=== PATIENT | female | born 2000 | race Caucasian/White ===

== ENCOUNTER 2021-01-25 17:45 | Emergency (ER) | payer SELFPAY ==
[2021-01-25 18:08] VITALS: PULSE 83; RESP 18; TEMP 36.5; O2SAT 98
--- NOTE | 2021-01-25 18:30 | DI.CT_ITS ---
Exam(s) CT ABDOMEN PELVIS W EXAM: CT ABDOMEN PELVIS W CLINICAL HISTORY: diffuse pain, max lower quadrants. TECHNIQUE: Imaging Protocol: Axial computed tomography images with coronal and sagittal reformatted images were created and reviewed CONTRAST MATERIAL: Intravenous: Omnipaque 350 Contrast volume:100 ml Oral: yes / no COMPARISON: No exams were available for comparison FINDINGS: ABDOMEN: Lung Bases: Normal where visualized. Liver: Normal density. No measurable mass. Gallbladder and biliary tract: No radiodense calculus or dilation. Pancreas: Normal density, no abnormal calcifications or inflammatory process. Spleen: Normal. Kidneys: Normal size, contour and axis. No radiodense stones or obstructive uropathy. No masses seen. Adrenal glands: No masses seen. Abdominal Aorta: Abdominal portion non-dilated. PELVIS: Bladder: No gross wall thickening. No calculi.No focal mass. Bowel: No obstruction or bowel wall thickening. Appendix surgically removed. Peritoneal cavity: No ascites, collection or mesenteric inflammatory response. Bones: Within normal limits for age. Reproductive organs: 4.9 centimeter left ovarian cyst, appears simple. Lymph nodes: Unremarkable. Impression: 4.9 centimeter left ovarian cyst, otherwise negative. RADIATION DOSE DELIVERED: 1,041mGy.cm Total DLP DATA REPOSITORY: All CT scans at this facility are submitted to the National Radiology Data Registry (NRDR) Dose Index Registry (DIR) with the [employer] ([employer]). RADIATION OPTIMIZATION: All CT scans at this facility use at least one of these dose optimization te chniques: automated exposure control; mA and/or kV adjustment per patient size (includes targeted exa ms where dose is matched to clinical indication); or iterative reconstruction.
--- NOTE | 2021-01-25 18:36 | W.ED.GENAD ---
Discharge Plan Disposition Patient Disposition: AGAINST MEDICAL ADVICE Condition: Stable Discharge Details Clinical Impression: Ovarian cyst, Abdominal pain, Constipation Primary Care Provider: Unknown,Unknown ED Provider: Fernanda Retana Home Meds and New Rx's Prescriptions: No Action sertraline 100 mg tablet 100 mg PO RF: 0 trazodone 100 mg tablet 100 mg PO RF: 0 hydroxyzine HCl 25 mg tablet 50 mg PO PRNRF: 0 gabapentin 100 mg capsule 100 mg PO RF: 0 cefdinir 300 mg capsule RF: 0 Discharge Instructions Instructions: Ovarian Cyst (ED), Constipation (ED), Abdominal Pain (ED) Additional Instructions: You are choosing to leave AGAINST MEDICAL ADVICE. We will send you with imaging and labs as your plan is to go immediately from here to [place] where your surgeon is located. Please bring these results with you. Next indication would be to have an ultrasound performed of your ovary. I am concerned that you are constipated would also like to increase your bowel regimen. You are welcome to return anytime for continued care. As your abdominal pain is persistent, please do follow-up with your surgeon as soon as possible. Discharge Data Discharge Date/Time-TO BE ENTERED AT DEPARTURE: 01/25/21 20:24 Medical Decision Making Patient is a pleasant 21-year-old female presenting for chief complaint of abdominal pain. Reports that this began yesterday. States is progressively been worsening. Reports is primarily on the lower aspect of the abdomen. Describes nausea and vomiting. She vomited x3 today. Reports that she had a normal bowel movement prior to arrival. States that when she urinates it feels like I am giving . However, states this is different than when she had UTIs historically. States she had a fever yesterday with a T-max of 101.2. Past surgical history includes 5 laparoscopies for removal of injury 8 years tissue, appendectomy. Dates that she has upcoming surgery in [place] for her endometriosis once again. Is actively trying to get . Report is currently menstruating. Describes pain with vaginal intercourse yesterday. Prior to starting her menses yesterday she was having cottage cheese discharge. Patient reports that this does not feel like her endometriosis has historically. On exam, patient appears uncomfortable. She is hematin stable. She appears well-hydrated. Abdomen is diffusely tender. No peritoneal findings. Well-healed surgical incisions. We will perform vaginal exam and obtain?past screening. She denies any new sexual partners or concern for STIs. States that she was tested for STIs approximately 3 weeks ago. Will obtain baseline labs. Patient is requesting antiemetic, will give Zofran. We will also obtain CT as the pain is described as severe and different from her baseline abdominal discomfort secondary to the endometriosis. She was having some vaginal discharge, considered STI, PID. Her pain is to general in the abdomen to be consistent with ovarian torsion and also had a very progression onset.. Also considered constipation she does have a history of this. Also considered diverticulitis, worsening endometriosis versus other. Labs reviewed. No leukocytosis. Patient is anemic with hemoglobin of 9.8 she does report that she has a history of anemia. I do not have any previous here for comparison. I do not see signficant bleeding on exam. She denies hematuria or blood in stool. CMP without abnormality. Negative hCG. Lipase within normal limits. UA is pending. Vaginal exam was performed. Patient has a normal amount of blood consistent with menses. Cervix looks unremarkable, I do not appreciate any abnormal discharge. Ppatient would like to leave AGAINST MEDICAL ADVICE. She prefers to go to [place] where she typically receives her surgical care. I advised that she should wait until her CT is reviewed by radiologist. I looked at her CT and concern for constipation. She declines stool softener, states she wants to go to [place] and does not want to have BM on the way. She is on daily softeners at baseline. Will give IV Tylenol for her discomfort. Patient is requesting something stronger for pain but I am hesitant to give her narcotics as this may worsen constipation and this is the underlying cause of her discomfort. Advised that if she is to leave AGAINST MEDICAL ADVICE, we will send her with a disc of her images as well as a copy of her labs. She is stable. She has capacity to make this decision. her mother is going to drive her to her surgical home in [place]. She is aware that she may return at any time for reevaluation. Vag path and STI testing pending. Just prior to patient leaving, CT reviewed by radiologist: FINDINGS: Lungs: Lung bases are clear. Liver: Normal. No mass. Gallbladder and bile ducts: Normal. No calcified stones. No ductal dilation. Pancreas: Normal. No ductal dilation. Spleen: Normal. No splenomegaly. Adrenal glands: Normal. No mass. Kidneys and ureters: Normal. No hydronephrosis. Ureters are not dilated. No stones observed. Stomach and bowel: Unremarkable stomach. Nondilated small bowel. Negative for inflammatory change around the colon. Mild proximal stool. Appendix: Appendix is surgically absent. Intraperitoneal space: Negative for free fluid or free air. Negative for inflammatory changes in the left adnexal region. Negative for abscess. Vasculature: Unremarkable. No abdominal aortic aneurysm. Lymph nodes: Unremarkable. No enlarged lymph nodes. Urinary bladder: Unremarkable as visualized. Reproductive: Uterus is unremarkable. Left ovarian cyst noted, 4.9 cm. Bones/joints: Unremarkable. No acute fracture. Soft tissues: Unremarkable. IMPRESSION: 1. Left ovarian cyst, 4.9 cm. 2. Negative for abscess or free fluid. I advised that she would need US. However, her pain is not focal and was slowly progressive. My clinicial suspicion for torsion of very low. However, she is aware of this need and will discuss at her next medical home. Patient left AMA with mom. She has labs and imaging with her. [facility] General Mode of arrival: ambulatory. Date/Time Provider Initiated Documentation: 01/25/21 18:16. Limitations to Documentation: no limitations. Information obtained by: patient and RN notes reviewed. History of Present Illness 21 year old F presents to the emergency department with the chief complaint of diffuse lower abdominal pain, described as severe, with intensity rated at 8. Quality is described as aching, and is localized to the abdomen. Patient reports no radiation. Patient started experiencing this day(s) and it has been constant. No relieving factors improve symptom(s), No exacerbating factors reported . Patient notes fever/chills (reports fever yesterday, none today); denies chest pain, cough, diaphoresis and shortness of breath. Patient did receive the following treatments prior to arrival, none Related Data Home Medications Medication Instructions Recorded Confirmed cefdinir mg 01/25/21 01/25/21 gabapentin 100 mg PO 01/25/21 hydroxyzine HCl 50 mg PO PRN 01/25/21 sertraline 100 mg PO 01/25/21 trazodone 100 mg PO 01/25/21 Allergies Allergy/AdvReac Type Severity Reaction Status Date / Time haloperidol [From Haldol] Allergy Unverified 01/25/21 18:16 ketorolac Allergy Unverified 01/25/21 18:16 Penicillins Allergy Unverified 01/25/21 18:16 prochlorperazine Allergy Unverified 01/25/21 18:16 [From Compazine] General Stated Complaint: [employer] POPEYE: 3 Review of Systems Constitutional Constitutional: Reports as per HPI, Denies chills, Denies fatigue, Reports fever(s) and Denies headache(s) ENT Ears, Nose, Mouth, and Throat: Denies headache(s) Cardiovascular Cardiovascular: Reports as per HPI, Denies chest pain and Denies dyspnea Respiratory Respiratory: Reports as per HPI, Denies cough and Denies dyspnea Gastrointestinal Gastrointestinal: Reports as per HPI, Denies hematochezia, Denies change in bowel habits (reports she is on multiple stool softeners, normal BM daily), Denies change in stool character, Denies nausea and Denies vomiting Genitourinary Genitourinary: Reports abnormal menses (states menses are irregular, trying to get . Started menses yesterd), Denies hematuria, Reports difficulty voiding, Denies genital lesions, Reports dyspareunia, Reports dysmenorrhea (endometriosis), Denies flank pain, Denies urinary urgency, Reports vaginal discharge (resolved with start of her menses yesterday) and Denies vaginal pruritus Musculoskeletal Musculoskeletal: Reports as per HPI and Denies back pain Integumentary/Breasts Skin/Breast: Reports as per HPI and Denies rash Neurologic Neurologic: Reports as per HPI and Denies headache(s) Endocrine Endocrine: Denies fatigue [facility] Social History Smoking/Tobacco Use Status: Never Smoking risk assessment performed?: Yes Alcohol Intake: current Alcohol Intake frequency: holidays/special occasions only Drug use: Occasionally Substance use type: marijuana Do you feel safe at home: Yes Do you feel safe in your relationship?: Yes Exam Const General: cooperative, healthy appearing, comfortable, no acute distress and well developed Nutritional Appearance: well nourished and overweight Orientation: alert and awake HENMT Head: normal to inspection Mouth: moist mucous membranes Resp Effort & Inspection: normal respiratory effort, able to speak in complete sentences and no respiratory distress Auscultation: clear to auscultation bilaterally, no rales, no rhonchi and no wheezes Cardio Rate: regular rate Rhythm: regular rhythm Heart Sounds: S1 normal and S2 normal GI Inspection: normal to inspection and scar (incisions are well healed from previous laparoscopic procedures) Palpation: soft, no hepatosplenomegaly, not firm, no guarding, no hernias, not rigid and tender in the LLQ, in the RLQ and other (diffuse discomfort that is worse in lower quadrants); with no rebound tenderness Percussion: normal to percussion Auscultation: normal bowel sounds External Female Exam: normal external appearance, no erythema, no tenderness externally and no external swelling Speculum Exam - Vagina: normal appearance of the vagina (small amount of blood in vaginal vault), no foreign bodies, no lacerations, no lesions, vaginal bleeding, no masses and no swelling Speculum Exam - Cervix: normal appearance of the cervix and nontender Bimanual Exam- Vagina & Uterus: normal bimanual exam, normal palpation and No tender OB/External & Speculum: no foreign bodies and vaginal bleeding Back/Spine/Pelvis Back: no CVA tenderness Skin General skin exam: no rashes or lesions noted Trauma: no lacerations or abrasions Neuro General: patient alert and patient awake Cognition: normal cognition Speech: speech normal Gait: normal gait Psych Appearance: grossly normal and well kempt Mental Status: mental status grossly normal Speech and Movement: speech and movement normal Course Vital Signs Vital signs: Vital Signs Temperature 36.5 C 01/25/21 18:08 Pulse 83 01/25/21 18:08 Respiratory Rate 18 01/25/21 18:08 Pulse Oximetry 98 01/25/21 18:08 Temperature 36.5 C 01/25/21 18:08 Pulse 83 01/25/21 18:08 Respiratory Rate 18 01/25/21 18:08 Respiratory Effort Non-Labored 01/25/21 18:14 Pulse Oximetry 98 01/25/21 18:08 Oxygen Delivery Method Room Air 01/25/21 18:08 Oxygen Flow Rate 0 01/25/21 18:08 Pain Level 8 01/25/21 18:20
[2021-01-25] MEDS: Normal Saline 1,000 ML 1000 ML IV (19:06)
[2021-01-25] MEDS: Ondansetron 4 MG/2 ML VIAL IVP (19:06)
[2021-01-25 19:13] LABS: HCT 32.2 % (36.0-46.0); HGB 9.8 g/dL (11.2-15.7); MCH 22.2 pg (27.0-33.0); MCHC 30.4 % (32.0-36.0); MPV 10.1 fL (8.0-11.0); Platelet Count 195 10^3/uL (130-400); RBC 4.41 10^6/uL (3.93-5.22); RDW 17.8 % (11.7-14.6); RDW-SD 47.4 fL; WBC 6.08 10^3/uL (4.4-10.8)
[2021-01-25] MEDS: Omnipaque 350 MG/ML 100 ML BTL IJ (19:15)
[2021-01-25 19:23] LABS: ALT 29 U/L (14-59); AST 26 U/L (15-37); Albumin 3.9 g/dL (3.4-5.0); Alkaline Phosphatase 54 U/L (46-116); Anion Gap 4.6 mmol/L (3-11); BUN 10 mg/dL (7-18); Bilirubin, Total 0.2 mg/dL (0.2-1.0); CO2 30.4 mmol/L (21.0-32.0); CREATININE 0.8 mg/dL (0.55-1.02); Calcium 8.6 mg/dL (8.5-10.1); Chloride 104 mmol/L (98-107); Glucose 86 mg/dL (74-106); Lipase 90 U/L (73-393); Potassium 3.8 mmol/L (3.5-5.1); Sodium 139 mmol/L (136-145); Total Protein 7.5 g/dL (6.4-8.2)
[2021-01-25] MEDS: Normal Saline Flush 10 ML SYR IVP (19:24)
[2021-01-25 19:46] LABS: HCG Qual (Serum) Negative
--- NOTE | 2021-01-25 20:04 | DI.VRAD_ITS ---
PROCEDURE INFORMATION: Exam: CT Abdomen And Pelvis With Contrast Exam date and time: 01/25/2021 6:36 PM Age: 21 years old Clinical indication: Abdominal pain; Localized; Prior surgery; Surgery date: 6+ months; Surgery type: Appendectomy , HX of multiple surgeries for endometriosis; Patient HX: Diffuse pain, max lower quadrants TECHNIQUE: Imaging protocol: Computed tomography of the abdomen and pelvis with contrast. Radiation optimization: All CT scans at this facility use at least one of these dose optimization techniques: automated exposure control; mA and/or kV adjustment per patient size (includes targeted exams where dose is matched to clinical indication); or iterative reconstruction. Contrast material: OMNIPAQUE 350; Contrast volume: 100 ml; Contrast route: INTRAVENOUS (IV); COMPARISON: No relevant prior studies available. FINDINGS: Lungs: Lung bases are clear. Liver: Normal. No mass. Gallbladder and bile ducts: Normal. No calcified stones. No ductal dilation. Pancreas: Normal. No ductal dilation. Spleen: Normal. No splenomegaly. Adrenal glands: Normal. No mass. Kidneys and ureters: Normal. No hydronephrosis. Ureters are not dilated. No stones observed. Stomach and bowel: Unremarkable stomach. Nondilated small bowel. Negative for inflammatory change around the colon. Mild proximal stool. Appendix: Appendix is surgically absent. Intraperitoneal space: Negative for free fluid or free air. Negative for inflammatory changes in the left adnexal region. Negative for abscess. Vasculature: Unremarkable. No abdominal aortic aneurysm. Lymph nodes: Unremarkable. No enlarged lymph nodes. Urinary bladder: Unremarkable as visualized. Reproductive: Uterus is unremarkable. Left ovarian cyst noted, 4.9 cm. Bones/joints: Unremarkable. No acute fracture. Soft tissues: Unremarkable. IMPRESSION: 1. Left ovarian cyst, 4.9 cm. 2. Negative for abscess or free fluid. Dictated and Authenticated by: Elias Kim MD. Ordering:SERAFIN Michael MD
[2021-01-25 20:13] VITALS: BP 117/78; PULSE 88; TEMP 37; O2SAT 98
[2021-01-27 13:54] LABS: Chlamydia Result Negative (Negative); GC Result Negative (Negative)
== END 2021-01-25 20:24 | disposition left against medical advice (07) ==
PROVIDERS: Emergency Provider Physician Assistant
DX: N83.292 Other ovarian cyst, left side (principal); R10.30 Lower abdominal pain, unspecified; K59.00 Constipation, unspecified; Z53.29 Procedure and treatment not carried out because of patient's decision for other reasons; R11.2 Nausea with vomiting, unspecified; R30.0 Dysuria
CPT/HCPCS: 36415; 80053; 83690; 85027; 87491; 87591; 96361; 96374; 99285; 74177; 84703; 87480; 87510; 87660; 99284; J2405; J3490

== ENCOUNTER 2021-10-13 15:02 | Emergency (ER) | payer SELFPAY ==
[2021-10-13 15:17] VITALS: BP 96/42; PULSE 72; RESP 16; TEMP 36.8; O2SAT 99
--- NOTE | 2021-10-13 15:45 | DI.US_ITS ---
Exam(s) US PELVIS TRANSVAGINAL EXAM: US PELVIS TRANSVAGINAL CLINICAL HISTORY: pain rlq and pelvis TECHNIQUE: Ultrasound performed using standard protocol. COMPARISON: No exams were available for comparison FINDINGS: Pelvic ultrasound was performed transabdominally and transvaginally. The uterus has a normal myometr ial appearance, and measures 6.7 x 2.6 x 4.3 cm. Endometrial stripe is about 3 millimeters in thickn ess and is homogeneous. No free fluid in the cul-de-sac. The ovaries have a normal follicular appearance, right ovary measures 21 x 22 x 16 millimeters and le ft ovary measures 20 x 20 x 13 millimeters. Doppler evaluation of the ovaries is unremarkable. Limited scanning of the kidneys is unremarkable. IMPRESSION: Negative pelvic ultrasound. DATA REPOSITORY:
[2021-10-13] MEDS: HYDROmorphone 2 MG/ML VIAL 1 MG IVP (16:11)
[2021-10-13 16:12] LABS: Abs Immature Grans 0.02 10^3/uL (0.0-0.06); Absolute Basophil Count 0.04 10^3/uL (0.0-0.2); Absolute Lymphocyte Count 1.54 10^3/uL (1.2-3.4); Absolute Neutrophil Count 3.93 10^3/uL (1.2-6.7); Basophils % 0.7; Eosinophils % 1.7; HCT 33.8 % (36.0-46.0); HGB 10.3 g/dL (11.2-15.7); Immature Grans % 0.3; MCH 24.5 pg (27.0-33.0); MCHC 30.5 % (32.0-36.0); MCV 80 fL (80-95); MPV 11.3 fL (8.0-11.0); Monocytes % 5.1; Neutrophils % 66.2; Platelet Count 203 10^3/uL (130-400); RBC 4.21 10^6/uL (3.93-5.22); RDW-SD 40.4 fL; WBC 5.93 10^3/uL (4.4-10.8)
[2021-10-13] MEDS: Ondansetron 4 MG/2 ML VIAL IVP (16:12)
--- NOTE | 2021-10-13 16:23 | ED.GENADUL_ITS ---
Discharge Plan Disposition Patient Disposition: HOME Condition: Stable Discharge Details Clinical Impression: Abdominal pain, chronic, right lower quadrant Primary Care Provider: Unknown,Unknown ED Provider: Rodney Jennings Home Meds and New Rx's Prescriptions: Continued sertraline 100 mg tablet 100 mg PO HS Label Comments: TAKE ONE TABLET BY MOUTH EVERY DAY trazodone 100 mg tablet 100 mg PO HS Label Comments: TAKE ONE TABLET BY MOUTH EVERY NIGHT hydroxyzine HCl 25 mg tablet 50 mg PO PRN PRN Label Comments: TAKE 1 TABLET BY MOUTH AT NIGHT AND EVERY 6 HOURS NEEDED FOR ANXIETY ATTACKS gabapentin 100 mg capsule 300 mg PO TID Label Comments: TAKE 1 CAPSULE DAILY FOR 3 DAYS 2 CAPSULES DAILY FOR 3 DAYS THEN MAY INCREASE TO 3 CAPSULES DAILY MAXIMUM DAILY DOSE 3 CAPULES Discharge Instructions Instructions: Abdominal Pain (ED) Additional Instructions: Please follow-up with gynecology. Please call for an appointment. You may also wish to follow-up with [facility] for mental health evaluation. Please contact your primary care physician to arrange follow-up. Return to the ER immediately for any worsening or new concerning symptoms. Referrals: [facility] [Provider Group] [facility] [Outside] Medical Decision Making 1625??21-year-old female history of remote appendectomy, history of ovarian cyst, here with abdominal pain that started last night and has persisted. Patient is tender to right lower abdomen and suprapubic. She does have some subtle bruising noted right lower abdomen and denies trauma. She has no urinary symptoms or abnormal vaginal discharge. Last menses was 2 weeks ago. Concern for ovarian pathology including ovarian torsion and tubo-ovarian abscess vs ectopic. Plan to obtain pelvic ultrasound. Patient does appear uncomfortable and has allergy to Toradol which she notes is anaphylaxis. I will give Dilaudid 1 mg IV and Zofran 4 mg IV for nausea. -- Patient notes she has not had similar pain in the recent past. However I reviewed collective notification report that patient has had 77 ED visits in the past 12 months including visits at other emergency departments in the region over the past month. When reviewed this data with patient, she initially noted it was for COVID-related illness. I explained that the diagnosis listed on almost all of these visits for right lower quadrant abdominal pain. Patient did not have much of an explanation other than noting she is concerned and that she does not believe her symptoms are related to endometriosis which is what she has been told. She notes she has not had an ultrasound of her pelvis. 1636 --I obtained and reviewed outside hospital record: ED visit note from Dr. Steve, date of service 10/12/2001 with notes similar presentation and also relates additional history including history of 7 laparoscopies multiple ultrasounds and multiple CTs. Patient has previously been seen by gynecology team at [facility] and operative note regarding a procedure in August 2020 noted no evidence of endometriosis was seen. Blood pressure yesterday was noted to be 102/44. Stat ultrasound of the pelvis was obtained here today and interpreted by radiology: No torsion or tubo-ovarian abscess. -- Patient notes some vaginal bleeding after ultrasound. I recommended pelvic exam and patient provided informed refusal. Patient requesting additional pain medication. I explained that she should definitely have another dose of Tylenol at 8 PM tonight (she took 1000 mg at 2 PM.) I explained that additional opioid medication is not indicated at this point and would potentially be harmful. Patient then requested to leave. -- A medical screening exam was performed today no acute medical condition identified. Patient will be discharged to follow-up with gynecology and I also think it may be beneficial for her to seek evaluation by commercial specialist for assessment for anxiety disorder as I am concerned that anxiety is contributing to her frequent ED presentations. I will ask care management to help arrange outpatient follow-up. Usual customary discharge instructions reviewed with the patient. Patient refused discharge paperwork. Patient is interested in seeking follow-up with gynecology for hysterectomy. Patient was noted to be ambulating with some discomfort here in the emergency department and upon leaving the emergency department it was noted that patient immediately stood upright and walked without any discomfort across the parking lot per nursing. HPI General Mode of arrival: ambulatory . Date/Time Provider Initiated Documentation: 10/13/21 15:23 . Limitations to Documentation: no limitations . Information obtained by: patient . HPI Narrative: 21-year-old female presents with chief complaint of abdominal pain. Patient notes the pain started last night and has persisted all day. Pain is sharp and severe. Pain localized to her right lower abdomen and radiates to her pelvis. She has associated nausea and vomiting. Patient denies vaginal discharge or vaginal bleeding. Last menstrual period was 2 weeks ago and she is typically regular. Patient does not believe she could be . Related Data Home Medications Medication Instructions Recorded Confirmed gabapentin 100 mg capsule 300 mg PO TID 01/25/21 10/13/21 hydroxyzine HCl 25 mg tablet 50 mg PO PRN PRN 01/25/21 10/13/21 sertraline 100 mg tablet 100 mg PO HS 01/25/21 10/13/21 trazodone 100 mg tablet 100 mg PO HS 01/25/21 10/13/21 Allergies Allergy/AdvReac Type Severity Reaction Status Date / Time droperidol Allergy Severe jaw locks, Unverified 10/13/21 15:25 hives, swells up ibuprofen Allergy Severe jaw locks, Unverified 10/13/21 15:25 hives, swells up haloperidol [From Haldol] Allergy Unverified 10/13/21 15:24 ketorolac Allergy Unverified 10/13/21 15:24 Penicillins Allergy Unverified 10/13/21 15:24 prochlorperazine Allergy Unverified 10/13/21 15:24 [From Compazine] General Stated Complaint: Abd Prob POPEYE: 3 Review of Systems All systems reviewed & are unremarkable except as noted in HPI and below Constitutional Constitutional: Denies fever(s) Gastrointestinal Gastrointestinal: Reports as per HPI PFSH All Active Problems (Updated 10/13/21 @ 16:40 by Rodney Jennings MD) Ovarian cyst (Acute) Abdominal pain (Acute) Constipation (Acute) Abdominal pain, chronic, right lower quadrant (Acute) Social History Smoking/Tobacco Use Status: Never Smoking risk assessment performed?: Yes Alcohol Intake: current Alcohol Intake frequency: holidays/special occasions only Drug use: Current Sobriety Substance use type: marijuana Details: occassional edible after long day at work Do you feel safe at home: Yes Do you feel safe in your relationship?: Yes Exam Const General: cooperative HENMT Mouth: moist mucous membranes Eyes Conjunctivae: normal conjunctivae Sclera: normal sclerae Neck Neck: trachea midline and supple Resp Auscultation: clear to auscultation bilaterally, no rales, no rhonchi and no wheezes Cardio Rate: regular rate and not tachycardic Rhythm: regular rhythm GI Palpation: soft, not firm, no guarding, no masses, not rigid and tender in the RLQ and suprapubicly Auscultation: normal bowel sounds Skin General skin exam: no rashes or lesions noted Neuro General: patient alert, patient awake and tone normal Extrem General: no edema Psych Appearance: grossly normal Mental Status: mental status grossly normal Speech and Movement: speech and movement normal Course Vital Signs Vital signs: Vital Signs Temperature 36.8 C 10/13/21 15:17 Pulse 72 10/13/21 15:17 Respiratory Rate 16 10/13/21 15:17 Blood Pressure 96/42 L 10/13/21 15:17 Pulse Oximetry 99 10/13/21 15:17 Temperature 36.8 C 10/13/21 15:17 Temperature Source Skin 10/13/21 15:17 Pulse 72 10/13/21 15:17 Respiratory Rate 16 10/13/21 15:17 Respiratory Effort 10/13/21 15:27 Blood Pressure 96/42 L 10/13/21 15:17 Blood Pressure Position Left Lateral 10/13/21 15:17 Pulse Oximetry 99 10/13/21 15:17 Oxygen Delivery Method Room Air 10/13/21 15:17 Oxygen Flow Rate 0 10/13/21 15:17 Pain Level 9 10/13/21 15:17 Comment denies dizziness 10/13/21 15:17 Lab/Test Results Lab/Test Results: Laboratory Tests Range/Units 10/13/21 16:00 WBC (4.4-10.8) 10^3/uL 5.93 RBC (3.93-5.22) 10^6/uL 4.21 Hgb (11.2-15.7) g/dL 10.3 L Hct (36.0-46.0) % 33.8 L MCV (80-95) fL 80 MCH (27.0-33.0) pg 24.5 L MCHC (32.0-36.0) % 30.5 L RDW (11.7-14.6) % 14.0 Plt Count (130-400) 10^3/uL 203 MPV (8.0-11.0) fL 11.3 H Immature Gran % 0.3 Neutrophils % 66.2 Lymphocytes % 26.0 Monocytes % 5.1 Eosinophils % 1.7 Basophils % 0.7 Nucleated RBC % (0.0-0.3) % 0.0 Absolute Neutrophils (1.2-6.7) 10^3/uL 3.93 Absolute Lymphocytes (1.2-3.4) 10^3/uL 1.54 Absolute Monocytes (0.1-0.8) 10^3/uL 0.30 Absolute Eosinophils (0.0-0.7) 10^3/uL 0.10 Absolute Basophils (0.0-0.2) 10^3/uL 0.04
[2021-10-13 16:48] LABS: ALT 25 U/L (14-59); AST 18 U/L (15-37); Alkaline Phosphatase 70 U/L (46-116); Anion Gap 5.8 mmol/L (3-11); BUN 8 mg/dL (7-18); Bilirubin, Total 0.2 mg/dL (0.2-1.0); CO2 28.2 mmol/L (21.0-32.0); CREATININE 0.9 mg/dL (0.55-1.02); Calcium 8.3 mg/dL (8.5-10.1); Chloride 108 mmol/L (98-107); Glucose 83 mg/dL (74-106); Lipase 75 U/L (73-393); Potassium 3.6 mmol/L (3.5-5.1); Sodium 142 mmol/L (136-145); Total Protein 7.5 g/dL (6.4-8.2)
[2021-10-13 18:01] VITALS: BP 132/77; PULSE 88; RESP 18; O2SAT 99
[2021-10-13 18:17] LABS: Clarity Turbid (Clear); Leukocyte Esterase Negative (Negative); Nitrite Negative (Negative); Specific Gravity 1.025 (1.005-1.025); pH 6.5 (5-8)
[2021-10-13 18:18] LABS: Bilirubin Negative (Negative); Blood Large (Negative); Glucose Negative (Negative); Ketones Negative (Negative); Urobilinogen 0.2 EU/dL (Up TO 0.2)
[2021-10-13 18:23] LABS: HCG Qual (Urine) Negative
[2021-10-13 18:28] LABS: RBC >50 HPF (0-2)
[2021-10-13 18:29] LABS: C & S Indicated? No
--- NOTE | 2021-10-13 18:33 | NUR.NOTE ---
Nursing Note: Referral faxed to [facility], [facility], for frequent ED visits, chronic lower abdominal pain, to be seen in 1 to 2 weeks. Radha Freitas
== END 2021-10-13 18:03 | disposition home or self-care (01) ==
PROVIDERS: Emergency Provider Student in an Organized Health Care Education/Training Program
DX: R10.31 Right lower quadrant pain (principal); G89.29 Other chronic pain
CPT/HCPCS: 36415; 80053; 83690; 86850; 86900; 86901; 96374; 96375; 99284; 76830; 76856; 81003; 81015; 81025; 85025; J2405

== ENCOUNTER 2022-11-20 17:28 | Emergency (ER) | payer BC, SELFPAY ==
[2022-11-20 17:32] VITALS: BP 108/72; PULSE 57; RESP 18; TEMP 37.2; O2SAT 99
--- OUTSIDE RECORDS SUMMARY | 2022-11-20 17:37 | XMS_ITS | Continuity of Care Document ---
Author Name [facility] Address [address] [place] [id number] Organization [facility] Address [address] [place] [address] Care Team Providers Care Ceramic Mold Designer Name Role Phone PCP, of Choice Primary Care Physician Unavailab le Allergies, Adverse Reactions, Alerts Allergen Type Severity Reaction Last Updated Verified Status droperidol Allergy anaphylactic shock August 10, 2021 Y Active haloperidol Allergy rash August 10, 2021 Y Activ e ibuprofen Allergy August 10, 2021 Y Active ketorolac Allergy anaphylaxis August 10, 2021 Y Act wili latex Allergy rash August 10, 2021 Y Active Penicillins Allergy hives August 10, 2021 Y Activ e prochlorperazine Allergy hives August 10, 2021 Y Active Medications Active Medications Medication Dose Units Route Sig Qty Days Start Date St atus Sertraline 100 MG ORAL DAILY October 14, 2020 Active Trazodone 100 MG ORAL BEDTIME October 14, 2020 Active Hydroxyzine Hcl 100 MG ORAL BEDTIME October 14, 2020 Active Montelukast 10 MG ORAL DAILY Febr uary 2021 Active Omeprazole MG September 23, 2021 Active Gabapentin 200 MG ORAL DAILY Augus t 2020 Active Fluticasone Propion-Salmeterol [Advair Hfa] INHALATION Novemb er 2020 Active Tizanidine 4 MG ORAL As Directed PRN For Muscle Spasm August 07, 2021 Active Ondansetron 4 - 8 MG ORAL Q8H PRN For nausea and vomiting 8 August 07, 2021 Active Discontinued Medications Medication Dose Units Route Sig Qty Days Start Date Di scontinued Date Status Docusate Sodium 50 MG ORAL TWICE A DAY October 14, 2020 August 07, 2021 Discontinued Ferrous Sulfate 325 MG ORAL DAILY 14 October 15, 2020 March 16, 2021 Discontinued Hydrocodone-A cetaminophen December 29, 2020 January 07, 2021 Discontinued Cefdinir 300 MG ORAL TWICE A DAY 20 January 21, 2021 January 29, 2021 Discontinued Tramadol 50 MG ORAL Q8H PRN For pain 10 January 21, 2021 January 29, 2021 Discontinued Omeprazole 20 MG ORAL DAILY Febru [email or web address] 07, 2021 Discontinued Cephalexin 500 MG ORAL FOUR TIMES DAILY 20 June 27, 2021 August 07, 2021 Discontinued Tramadol [Ultram] 50 MG ORAL Q6H PRN For Pain 7 June 27, 2021 August 07, 2021 Discontinued Hydrocodone-A cetaminophen 1 TAB ORAL Q6H PRN For pain 9 January 02, 2021 January 07, 2021 Discontinued Ondansetron 4 MG ORAL Q6H PRN For nausea and vomiting 10 January 02, 2021 August 07, 2021 Discontinued Famotidine-Ca Carb-Mag Hydrox [Pepcid Complete] 1 TAB ORAL DAILY 30 January 08, 2021 January 29, 2021 Discontinued Dicyclomine 10 MG ORAL .q6 prn [address] 2020January 21, 2021 Discontinued Oxycodone MG Novemb er 2020June 27, 2021 Discontinued Ondansetron Hcl [Zofran] 4 MG ORAL Q8H PRN For nausea and vomiting 12 4 March 20, 2021 March 24, 2021 Discontinued Sulfamethoxaz ole-Trimethop rim [Bactrim Ds] 1 TAB ORAL TWICE A DAY 14 March 20, 2021 March 27, 2021 Discontinued Problem List Active Problems Medical Problem Onset Date Status History of endometriosis Active Abdominal pain, recurrent Active Inactive/Resolved Problems Medical Problem Onset Date Status Abdominal pain, RLQ Inactive Ovarian cyst Inactive Pelvic pain Inactive Pelvic pain Inactive Functional abdominal pain syndrome Inactive Diarrhea Inactive Diarrhea Inactive Gastritis Inactive MRSA (methicillin resistant Staphylococcus aureu s) infection Inactive Post-operative pain Inactive Pain, dental Inactive Pain, dental Inactive Vaginal bleeding Inactive Iron deficiency anemia Inactive Hx of endometriosis Inactive Hx of endometriosis Inactive Nausea & vomiting Inactive Abdominal pain Inactive Abdominal pain Inactive Abdominal pain Inactive Abdominal pain Inactive Endometriosis Inactive Endometriosis Inactive Constipation Inactive Vomiting Inactive Hemorrhagic cyst of left ovary I nactive Procedures Procedure Date Status US Transvaginal Non-OB September 23, 2021 active ED US Abdominal Limited September 23, 2021 active ED US Abdominal Limited August 10, [address] Abd Pel w/ Contrast August 07, 2021 completed ED US Abdominal Limited March 27, 2021 comple caro Blood Culture March 18, 2021 completed Urine Culture March 16, 2021 completed Routine Culture March 16, 2021 completed Gram Stain March 16, [address] Abd Pel w/ Contrast March 16, 2021 complete d Urine Culture January 02, [address] Abd Pel w/ Contrast January 02, 2021 completed Relevant Diagnostic Tests and/or Laboratory Data Laboratory Results Test Date/Time Result Interp. Ref. Range Result Co mment White Blood Count August 10, 2021 3:14pm 4.83 1000/mm3 4.8-10.8 Red Blood Count August 10, 2021 3:14pm 3.83 M/mm3 Low 4.20-5.40 Hemoglobin August 10, 2021 3:14pm 9.9 g/dL Low 12.0-16.0 Hematocrit August 10, 2021 3:14pm 31.6 % Low 37-47 Mean Corpuscular Volume August 10, 2021 3:14pm 82.5 fL 81.0-99.0 Mean Corpuscular Hemoglobin August 10, 2021 3:14pm 25.8 pg Low 27-31 Mean Corpuscular Hemoglobin Concent August 10, 2021 3:14pm 31.3 g/dL Low 33-37 Red Cell Distribution Width August 10, 2021 3:14pm 14.0 % 11.5-14.5 Platelet Count August 10, 2021 3:14pm 189 1000/mm3 140-440 Mean Platelet Volume August 10, 2021 3:14pm 10.7 fL High 7.4-10.4 Neutrophils (%) (Auto) August 10, 2021 3:14pm 58.2 % 40.0-72.0 Lymphocytes (%) (Auto) August 10, 2021 3:14pm 32.3 % 17-45 Monocytes (%) (Auto) August 10, 2021 3:14pm 6.6 % 3-11 Eosinophils (%) (Auto) August 10, 2021 3:14pm 2.1 % 0-3 Basophils (%) (Auto) August 10, 2021 3:14pm 0.6 % 0-1 Immature Granulocyte % (Auto) August 10, 2021 3:14pm 0.2 % 0-1 Neutrophils # (Auto) August 10, 2021 3:14pm 2.81 1000/mm3 1.4-6.5 Lymphocytes # (Auto) August 10, 2021 3:14pm 1.56 1000/mm3 1.2-3.4 Monocytes # (Auto) August 10, 2021 3:14pm 0.32 1000/mm3 0.0-0.8 Eosinophils # (Auto) August 10, 2021 3:14pm 0.10 1000/mm3 0.0-0.7 Basophils # (Auto) August 10, 2021 3:14pm 0.03 1000/mm3 0.0-0.1 Absolute Immature Granulocyte (auto August 10, 2021 3:14pm 0.0 0-1 Differential Method August 10, 2021 3:14pm Automated Differential Pathologist's Review October 14, 2020 11:38pm See comment No comparison data on file at [facility]. Microcytic hypochromic anemia, consistent with iron deficiency. Smear reviewed by pathologist for corporate quality manager. Glenroy Mello MD 10/15/20 Prothrombin Time October 14, 2020 11:38pm 10.8 SECONDS 9.6-11.2 Prothromb Time International Ratio October 14, 2020 11:38pm 1.1 Low 2.0-3.0 INR value valid only on patients on stabilized warfarin therapy. The recommended therapeutic range for warfarin (Coumadin) for most clinical indications is an INR of 2.0-3.0. An INR of 2.5-3.5 is recommended for patients with mechanical heart valves. Activated Partial Thromboplast Time October 14, 2020 11:38pm 26.1 SECONDS 21.6-36.0 A target of 1.5-2.5 times the mean of the normal reference range is considered therapeutic. NOTE: APTT must NOT be used to monitor LMWH therapy. Contact [facility] Pharmacy for monitoring information. Urine Color January 02, 2021 6:04pm Lauren Urine Clarity January 02, 2021 6:04pm very cloudy Urine pH January 02, 2021 6:04pm 6.0 Urine Specific [place] January 02, 2021 6:04pm 1.015 Urine Protein January 02, 2021 6:04pm 100 (2+) mg/dL High Urine Glucose (UA) January 02, 2021 6:04pm Normal mg/dL Urine Ketones January 02, 2021 6:04pm Negative Urine Nitrite January 02, 2021 6:04pm Negative Urine Bilirubin January 02, 2021 6:04pm Negative mg/dL Urine Urobilinogen January 02, 2021 6:04pm Normal mg/dL Urine Leukocyte Esterase January 02, 2021 6:04pm Moderate (2+) WBC/uL High Urine Blood January 02, 2021 6:04pm Large (3+) JOEL/uL High Urine RBC June 27, 2021 3:10pm 0-2 /hpf Urine WBC June 27, 2021 3:10pm None seen /hpf Urine Squamous Epithelial Cells June 27, 2021 3:10pm 2+ /hpf Urine Bacteria June 27, 2021 3:10pm 1+ /hpf High Urine Mucus June 27, 2021 3:10pm Present Urine Culture Done June 27, 2021 3:10pm No CULTURE NOT INDICATED. Urine Test January 02, 2021 6:04pm Negative Sodium Level August 10, 2021 3:14pm 140 mmol/L 137-145 Potassium Level August 10, 2021 3:14pm 4.0 mmol/L 3.6-5.0 Chloride Level August 10, 2021 3:14pm 103 mmol/L 98-107 Carbon Dioxide Level August 10, 2021 3:14pm 26 mmol/L 22-30 Anion Gap August 10, 2021 3:14pm 11 7-16 Blood Urea Nitrogen August 10, 2021 3:14pm 7 mg/dL 7-17 Creatinine August 10, 2021 3:14pm 0.60 mg/dL 0.52-1.04 Glomerular Filtration Rate Calc August 10, 2021 3:14pm > 60 mL/min 60.0- Glucose Level August 10, 2021 3:14pm 85 mg/dL 70-100 Calcium Level August 10, 2021 3:14pm 9.2 mg/dL 8.4-10.2 Calcium Adjusted for Albumin August 07, 2021 1:30pm 9.2 mg/dL 8.4-10.2 Iron Level October 14, 2020 11:38pm 36 ug/dL Low 37-170 Total Bilirubin August 07, 2021 1:30pm 0.6 mg/dL 0.2-1.3 Aspartate Amino Transf (AST/SGOT) August 07, 2021 1:30pm 48 U/L High 14-36 Alanine Aminotransferase (ALT/SGPT) August 07, 2021 1:30pm 36 U/L High As of 09/13/19, the Reference Range for ALT/SGPT for adult patients has been updated. The Reference Range for ALT/SGPT has not been established for patients <18 years of age. Lactic Acid Level March 18, 2021 7:56pm 1.0 mmol/L 0.7-2.1 Total Protein August 07, 2021 1:30pm 8.3 g/dL High 6.3-8.2 Albumin August 07, 2021 1:30pm 5.0 g/dL 3.5-5.0 Alkaline Phosphatase August 07, 2021 1:30pm 58 U/L 38-126 Lipase August 07, 2021 1:30pm 64 U/L 23-300 Ferritin October 14, 2020 11:38pm 4.43 ng/mL Low 10-291 The results of this assay can be falsely decreased in patients who consume Biotin. Microbiology Results Procedure Source Result Collection Date/Time Result Date/Time Urine Culture Ur,Clean Catch No results entered January 02, 2021 6:40pm Urine Culture Ur,Clean Catch No results entered [facility] 2020 7:39pm Routine Culture Umbilicus Staphylococcus Aureus-Mrsa March 16, 2021 10:27am March 20, 2021 8:34am Gram Stain Umbilicus No results entered March 16, 2021 10:27am Blood Culture Blood NO GROWTH AFTER 5 DAYS March 18, 2021 9:10pm Advance Directives Advance Directive Response Recorded Date/ Time Do we have a copy on file here at [facility]? No October 14, 2020 11:22pm Does patient have an Advanced Directive? No October 14, 2020 11:22pm Pt has a Living Will? No October 14 11:22pm Pt has a Power of Cartographic Engineer? No October 14, 2020 11:22pm Chief Complaint and Reason for Visit Encounter Admit Date Chief Complaint Reason for V isit Departed Emergency September 23, 2021 3:02pm abdominal compl [facility] Hospital Discharge Instructions Additional Discharge Instructions Return tomorrow morning for ultrasound of your pelvis with a full bladder at 10 AM. Your test here was normal and your urine showed some mild dehydration. We strongly encourage you to keep in contact with your web portal developer at the [facility]. It is important to keep a follow-up plan with them regarding recurrent pain. You do not have a large ovarian cyst on your ultrasound September 20. You were given morphine and Zofran here in the emergency department. You may take Tylenol at home as directed. Instruction/Education Provided Abdominal Pain, Adult ED Hospital Discharge Medications Medication Dose Units Route Sig Qty Days Order Date Status Ins tructions Sertraline 100 MG ORAL DAILY October 14, 2020 Active Docusate Sodium 50 MG ORAL TWICE A DAY October 14, 2020 Discontinue d Trazodone 100 MG ORAL BEDTIME October Active Hydroxyzine Hcl 100 MG ORAL BEDTIME October 14, 2020 Active Ferrous Sulfate 325 MG ORAL DAILY October 15, 2020 Discontinue d Hydrocodone- Acetaminophe n December 29, 2020 Discontinue d Cefdinir 300 MG ORAL TWICE A DAY January 21, 2021 Discontinue d Tramadol 50 MG ORAL Q8H PRN For pain January 21, 2021 Discontinue d Montelukast 10 MG ORAL DAILY 2021 Active Omeprazole 20 MG ORAL DAILY 2021 Discontinue d Cephalexin 500 MG ORAL FOUR TIMES DAILY June 27, 2021 Discontinue d Tramadol 50 MG ORAL Q6H PRN For Pain June 27, 2021 Discontinue d Omeprazole MG September 122021 Active Gabapentin 200 MG ORAL DAILY 2020 Active Hydrocodone- Acetaminophe n 1 TAB ORAL Q6H PRN For pain 9 January 02, 2021 Discontinue d Ondansetron 4 MG ORAL Q6H PRN For nausea and vomiting 10 January 02, 2021 Discontinue d Famotidine-C a Carb-Mag Hydrox 1 TAB ORAL DAILY January 08, 2021 Discontinue d Dicyclomine 10 MG ORAL .q6 prn 30 2020 Discontinue d Oxycodone MG Novemb er 2020 Discontinue d Fluticasone Propion-Salm eterol INHALATION March 16, 2021 Active Ondansetron Hcl 4 MG ORAL Q8H PRN For nausea and vomiting 12 4 March 20, 2021 Discontinue d Sulfamethoxa zole-Trimeth oprim 1 TAB ORAL TWICE A DAY 14 March 20, 2021 Discontinue d Tizanidine 4 MG ORAL As Directed PRN For Muscle Spasm August 07, 2021 Active Ondansetron 4 - 8 MG ORAL Q8H PRN For nausea and vomiting 8 August 07, 2021 Active Encounters Encounter Facility Location Admit/Visit Date Discharge[facility]ure Date [facility], [facility] 2021 5:22pm August 26, 2021 [facility] 10, 2021 2:19pm August 10, 2021 5:11pm Departed [facility] Emergency Department August 07, 2021 11:58am August 07, 2021 5[facility] June 27, 2021 2:30pm June 27, 2021 4[facility] 27, 2021 11:49am March 27, 2021 [facility] 20, 2021 2:33pm March 20, 2021 [facility], 2021 6:11pm March 18, 2021 9[facility], 2021 3:28pm March 16, 2021 10[facility] 29, 2021 8:55pm January 29, 2021 [facility] January 21, 2021 2:24pm January 21, 2021 4[facility] 07, 2021 4:48pm January 07, 2021 6[facility] 02, 2021 4:12pm January 02, 2021 7:22pm Departed [facility] Emergency Department December 29, 2020 4:23pm December 29, 2020 [facility] 14, 2020 10:48pm October 15, 2020 12:54am Functional Status Query Response Date Recorded Comment Comprehension Ability Understands Concepts March 18, 2021 8:30pm Mood/Behavior Appropriate March 18, 2021 8:30pm Speech Appropriate September 23, 2021 3:50pm Query Response Date Recorded Comment Living Situation Home With Family September 23, 2021 7:35pm Immunizations No known immunizations. Plan of Care Instructions Abdominal Pain, Adult ED Social History Query Response Date Recorded Comment Alcohol Use Yes September 23, 2021 4:38pm Alcohol type hard liquor September 23, 2021 4:38pm Smoking Status Never smoker September 23, 2021 4:38pm Substance Use Treatment No September 23, 2021 4:38 pm Substance/Street Drug Use Yes September 23, 2021 4:38pm Monthly marijuana as of 08/07/21 alcohol intake frequency a few times a month September 23, 2021 4:38pm substance use type marijuana September 23, 2021 4:38pm Query Response Start Date Stop Date Smoking Status Never smoker Vital Signs Vital Reading Result Reference Range Collection Date/Time Height 5 ft 5 in August 07, 2021 12:08pm Weight 79.379 kg September 23, 2021 3: 18pm Temperature 98.3 F 97.6 F-99.6 F September 23, 2021 3 :18pm Pulse 72 BPM 60-100 September 23, 2021 7: 21pm Respiration 18 RPM 12-24 September 23, 2021 7: 21pm Pulse Oximetry 100 % 95-100 September 23, 2021 7:21pm Blood Pressure Systolic 105 100-140 September 23, 2021 7:21pm Blood Pressure Diastolic 70 50-85 September 23, 2021 7:21pm
--- OUTSIDE RECORDS SUMMARY | 2022-11-20 17:37 | XMS_ITS | Continuity of Care Document ---
Author Name [facility] Address [address] [place] [id number] Organization [facility] Address [address] [place] [id number] Care Team Providers Care Bingo Clerk Name Role Phone Out of Town, Provider Primary Care Physician Mary vailable Allergies, Adverse Reactions, Alerts Allergen Type Severity Reaction Last Updated Verified Status droperidol Allergy anaphylactic shock 2021 Y Active haloperidol Allergy rash January 21, 2021 Y Active ibuprofen Allergy June 27, 2021 Y Active ketorolac Allergy anaphylaxis December 29, 2020 Y Ac tive latex Allergy rash December 29, 2020 Y Active Penicillins Allergy hives December 29, 2020 Y Acti ve prochlorperazine Allergy hives December 29, 2020 Y Active Medications Active Medications Medication Dose Units Route Sig Qty Days Start Date St atus Sertraline 100 MG ORAL DAILY October 14, 2020 Active Docusate Sodium 50 MG ORAL TWICE A DAY Oct Active Trazodone 100 MG ORAL BEDTIME October 14, 2020 Active Hydroxyzine Hcl 100 MG ORAL BEDTIME October 14, 2020 Active Montelukast 10 MG ORAL DAILY uary 2021 Active Omeprazole 20 MG ORAL DAILY 2021 Active Cephalexin 500 MG ORAL FOUR TIMES DAILY June 27, 2021 Active Tramadol [Ultram] 50 MG ORAL Q6H PRN For Pain June 27, 2021 Active Gabapentin 200 MG ORAL DAILY Augus t 2020 Active Ondansetron 4 MG ORAL Q6H PRN For nausea and vomiting January 02, 2021 Active Fluticasone Propion-Salmeterol [Advair Hfa] INHALATION Novemb er 2020 Active Discontinued Medications Medication Dose Units Route Sig Qty Days Start Date Di scontinued Date Status Ferrous Sulfate 325 MG ORAL DAILY 14 October 15, 2020 March 16, 2021 Discontinued Hydrocodone-A cetaminophen December 29, 2020 January 07, 2021 Discontinued Cefdinir 300 MG ORAL TWICE A DAY 20 January 21, 2021 January 29, 2021 Discontinued Tramadol 50 MG ORAL Q8H PRN For pain 10 January 21, 2021 January 29, 2021 Discontinued Hydrocodone-A cetaminophen 1 TAB ORAL Q6H PRN For pain 9 January 02, 2021 January 07, 2021 Discontinued Famotidine-Ca Carb-Mag Hydrox [Pepcid Complete] 1 TAB ORAL DAILY 30 January 08, 2021 January 29, 2021 Discontinued Dicyclomine 10 MG ORAL .q6 prn 30 2020January 21, 2021 Discontinued Oxycodone MG Novemb er 2020June 27, 2021 Discontinued Ondansetron Hcl [Zofran] 4 MG ORAL Q8H PRN For nausea and vomiting 12 March 20, 2021 March 24, 2021 Discontinued Sulfamethoxaz ole-Trimethop rim [Bactrim Ds] 1 TAB ORAL TWICE A DAY 14 March 20, 2021 March 27, 2021 Discontinued Problem List Inactive/Resolved Problems Medical Problem Onset Date Status Ovarian cyst Inactive Pelvic pain Inactive Functional abdominal pain syndrome Inactive Diarrhea Inactive Gastritis Inactive MRSA (methicillin resistant Staphylococcus aureu s) infection Inactive Post-operative pain Inactive Pain, dental Inactive Pain, dental Inactive Vaginal bleeding Inactive Iron deficiency anemia Inactive Abdominal pain Inactive Abdominal pain Inactive Abdominal pain Inactive Abdominal pain Inactive Endometriosis Inactive Vomiting Inactive Hemorrhagic cyst of left ovary I nactive Procedures Procedure Date Status ED US Abdominal Limited March 27, 2021 [...] Range Result Co mment White Blood Count March 20, 2021 4:37pm 4.94 1000/mm3 4.8-10.8 Red Blood Count March 20, 2021 4:37pm 4.14 M/mm3 Low 4.20-5.40 Hemoglobin March 20, 2021 4:37pm 9.8 g/dL Low 12.0-16.0 Hematocrit March 20, 2021 4:37pm 32.6 % Low 37-47 Mean Corpuscular Volume March 20, 2021 4:37pm 78.7 fL Low 81.0-99.0 Mean Corpuscular Hemoglobin March 20, 2021 4:37pm 23.7 pg Low 27-31 Mean Corpuscular Hemoglobin Concent March 20, 2021 4:37pm 30.1 g/dL Low 33-37 Red Cell Distribution Width March 20, 2021 4:37pm 16.5 % High 11.5-14.5 Platelet Count March 20, 2021 4:37pm 177 1000/mm3 140-440 Mean Platelet Volume March 20, 2021 4:37pm 9.9 fL 7.4-10.4 Neutrophils (%) (Auto) March 20, 2021 4:37pm 64.0 % 40.0-72.0 Lymphocytes (%) (Auto) March 20, 2021 4:37pm 26.1 % 17-45 Monocytes (%) (Auto) March 20, 2021 4:37pm 5.9 % 3-11 Eosinophils (%) (Auto) March 20, 2021 4:37pm 2.8 % 0-3 Basophils (%) (Auto) March 20, 2021 4:37pm 1.0 % 0-1 Immature Granulocyte % (Auto) March 20, 2021 4:37pm 0.2 % 0-1 Neutrophils # (Auto) March 20, 2021 4:37pm 3.16 1000/mm3 1.4-6.5 Lymphocytes # (Auto) March 20, 2021 4:37pm 1.29 1000/mm3 1.2-3.4 Monocytes # (Auto) March 20, 2021 4:37pm 0.29 1000/mm3 0.0-0.8 Eosinophils # (Auto) March 20, 2021 4:37pm 0.14 1000/mm3 0.0-0.7 Basophils # (Auto) March 20, 2021 4:37pm 0.05 1000/mm3 0.0-0.1 Absolute Immature Granulocyte (auto March 20, 2021 4:37pm 0.0 0-1 Differential Method March 20, 2021 4:37pm Automated Differential Pathologist's Review October 14, 2020 11:38pm See comment No comparison data on file at [facility]. Microcytic hypochromic anemia, consistent with iron deficiency. Smear reviewed by pathologist for quality improvement coordinator (rn). Glenroy Mello MD 10/15/20 Prothrombin Time October [...] be used to monitor LMWH therapy. Contact [facility] Pharm[facility] for monitoring information. Urine Color January 02, 2021 6:04pm Lauren Urine Clarity January 02, 2021 6:04pm very cloudy Urine pH January 02, 2021 6:04pm 6.0 Urine Specific [place] January 02, 2021 6:04pm 1.015 Urine Protein [...] January 02, 2021 6:04pm Negative Sodium Level March 20, 2021 5:04pm 140 mmol/L 137-145 Potassium Level March 20, 2021 5:04pm 3.8 mmol/L 3.6-5.0 Chloride Level March 20, 2021 5:04pm 103 mmol/L 98-107 Carbon Dioxide Level March 20, 2021 5:04pm 27 mmol/L 22-30 Anion Gap March 20, 2021 5:04pm 10 7-16 Blood Urea Nitrogen March 20, 2021 5:04pm 5 mg/dL Low 7-17 Creatinine March 20, 2021 5:04pm 0.59 mg/dL 0.52-1.04 Glomerular Filtration Rate Calc March 20, 2021 5:04pm > 60 mL/min 60.0- Glucose Level March 20, 2021 5:04pm 91 mg/dL 70-100 Calcium Level March 20, 2021 5:04pm 9.4 mg/dL 8.4-10.2 Calcium Adjusted for Albumin March 18, 2021 7:56pm 9.1 mg/dL 8.4-10.2 Iron Level October 14, 2020 11:38pm 36 ug/dL Low 37-170 Total Bilirubin March 18, 2021 7:56pm 0.4 mg/dL 0.2-1.3 Aspartate Amino Transf (AST/SGOT) March 18, 2021 7:56pm 37 U/L High 14-36 Alanine Aminotransferase (ALT/SGPT) March 18, 2021 7:56pm 19 U/L As of 09/13/19, the Reference Range for ALT/SGPT for adult patients has been updated. The Reference Range for ALT/SGPT has not been established for patients <18 years of age. Lactic Acid Level March 18, 2021 7:56pm 1.0 mmol/L 0.7-2.1 Total Protein March 18, 2021 7:56pm 7.6 g/dL 6.3-8.2 Albumin March 18, 2021 7:56pm 4.6 g/dL 3.5-5.0 Alkaline Phosphatase March 18, 2021 7:56pm 47 U/L 38-126 Lipase October 14, 2020 11:38pm 43 U/L 23-300 Ferritin October 14, 2020 11:38pm 4.43 ng/mL Low 10-291 The results of this assay can be falsely decreased in patients who consume Biotin. Microbiology Results Procedure Source Result Collection Date/Time Result Date/Time Urine Culture Ur,Clean Catch No results entered January 02, 2021 6:40pm Urine Culture Ur,Clean Catch No results entered [facility] 2020 7:39pm Routine Culture Umbilicus Staphylococcus Aureus-Mrsa March 16, 2021 10:27am March 20, 2021 8:34am Gram Stain Umbilicus No results entered March 16, 2021 10:27am Blood Culture Blood NO GROWTH AFTER 5 DAYS March 18, 2021 9:10pm Advance Directives Advance Directive Response Recorded Date/ Time Do we have a copy on file here at [facility]? No October 14, 2020 11:22pm Does patient have an Advanced Directive? No October 14, 2020 11:22pm Pt has a Living Will? No October 14 11:22pm Pt has a Power of Head Gauge Unit Operator? No October 14, 2020 11:22pm Chief Complaint and Reason for Visit Encounter Admit Date Chief Complaint Reason for V isit Departed Emergency June 27, 2021 2:30pm PELVIC CARLITA N Hospital Discharge Instructions Additional Discharge Instructions Take t he antibiotic as prescribed for possible urinary tract infection. Take the tramadol as needed for pain. Take your Zofran for nausea. Sure to stay well-hydrated. Turn to the ER for any worsening symptoms. No Instructions/Education Pr ovided Hospital Discharge Medications Medication Dose Units Route Sig Qty Days Order Date Status Ins tructions Sertraline 100 MG ORAL DAILY October 14, 2020 Active Docusate Sodium 50 MG ORAL TWICE A DAY October 14, 2020 Active Trazodone 100 MG ORAL BEDTIME October Active Hydroxyzine Hcl 100 MG ORAL BEDTIME October 14, 2020 Active Ferrous Sulfate 325 MG ORAL DAILY 14 October 15, 2020 Discontinue d Hydrocodone- Acetaminophe n December 29, 2020 Discontinue d Cefdinir 300 MG ORAL TWICE A DAY January 21, 2021 Discontinue d Tramadol 50 MG ORAL Q8H PRN For pain January 21, 2021 Discontinue d Montelukast 10 MG ORAL DAILY uary 2021 Active Omeprazole 20 MG ORAL DAILY Febr jorge 2022 Active Cephalexin 500 MG ORAL FOUR TIMES DAILY June 27, 2021 Active Tramadol 50 MG ORAL Q6H PRN For Pain 7 June 27, 2021 Active Gabapentin 200 MG ORAL DAILY t 2020 Active Hydrocodone- Acetaminophe n 1 TAB ORAL Q6H PRN For pain 9 January 02, 2021 Discontinue d Ondansetron 4 MG ORAL Q6H PRN For nausea and vomiting 10 January 02, 2021 Active Famotidine-C a Carb-Mag Hydrox 1 TAB ORAL DAILY 30 January 08, 2021 Discontinue d Dicyclomine 10 MG ORAL .q6 prn 30 st 2020 Discontinue d Oxycodone MG Novemb er 2020 Discontinue d Fluticasone Propion-Salm eterol INHALATION March 16, 2021 Active Ondansetron Hcl 4 MG ORAL Q8H PRN For nausea and vomiting 12 4 March 20, 2021 Discontinue d Sulfamethoxa zole-Trimeth oprim 1 TAB ORAL TWICE A DAY 14 March 20, 2021 Discontinue d Encounters Encounter Facility Location Admit/Visit Date Discharge/Departure Date Attending Provider Departed Emergency [facility] Emergency Department June 27, 2021 2:30pm June 27, 2021 4:01pm Departed Emergency [facility] Emergency Department March 27, 2021 11:49am March 27, 2021 2:32pm Departed Emergency [facility] Emergency Department March 20, 2021 2:33pm March 20, 2021 6:25pm Departed Emergency [facility] Emergency Department March 18, 2021 6:11pm March 18, 2021 9:19pm Departed Emergency [facility] Emergency Department March 16, 2021 3:28pm March 16, 2021 10:43pm Departed Emergency [facility] Emergency Department January 29, 2021 8:55pm January 29, 2021 11:08pm Departed Emergency [facility] January 21, 2021 2:24pm January 21, 2021 4:51pm Departed Emergency [facility] Emergency Department January 07, 2021 4:48pm January 07, 2021 6:55pm Departed Emergency [facility] Emergency Department January 02, 2021 4:12pm January 02, 2021 7:22pm Departed Emergency [facility] Emergency Department December 29, 2020 4:23pm December 29, 2020 7:13pm Departed Emergency [facility] Emergency Department October 14, 2020 10:48pm October 15, 2020 12:54am Functional Status Query Response Date Recorded Comment Comprehension Ability Understands Concepts March 18, 2021 8:30pm Mood/Behavior Appropriate March 18, 2021 8:30pm Speech Appropriate Clear March 18, 2021 8:30pm Query Response Date Recorded Comment Living Situation Home June 27, 2021 4:00pm Immunizations No known immunizations. Plan of Care No Known Plan of Care Information Social History Query Response Date Recorded Comment Alcohol Use Yes June 27, 2021 2:44pm Alcohol type hard liquor June 27, 2021 2:44pm Smoking Status Never smoker June 27, 2021 2:44pm Substance/Street Drug Use Yes June 27 2:44pm alcohol intake frequency a few times a month June 27, 2021 2:44pm substance use type marijuana June 27, 2021 2:44 pm Query Response Start Date Stop Date Smoking Status Never smoker Vital Signs Vital Reading Result Reference Range Collection Date/Time Height 5 ft 4 in March 20 2:44pm Weight 86.183 kg June 27 2:33pm Temperature 98.2 F 97.6 F-99.6 F June 27 2:33pm Pulse 75 BPM 60-100 June 27 2:33pm Respiration 18 RPM -June 27 2:33pm Pulse Oximetry 99 % 95-100 June 27, 2021 2:33pm Blood Pressure Systolic 116 100-140 Febr uary 2021 2:33pm Blood Pressure Diastolic 70 50-85 Feb ruary 2021 2:33pm
--- OUTSIDE RECORDS SUMMARY | 2022-11-20 17:37 | XMS_ITS | Continuity of Care Document ---
Author Name [facility] Address [address] [place] [id number] Organization [facility] Address [address] [place] [id number] Care Team Providers Care National Sales Representative Name Role Phone Out of Town, Provider [...] MG ORAL DAILY Febr uary 2021 Active Gabapentin 200 MG ORAL DAILY [...] Discontinued Omeprazole 20 MG ORAL DAILY Febru jorge 2021August 07, 2021 Discontinued Cephalexin 500 MG ORAL [...] pain Inactive Abdominal pain Inactive Endometriosis Inactive Constipation Inactive Vomiting Inactive Hemorrhagic cyst of left ovary I nactive Procedures Procedure Date Status ED US Abdominal Limited August 10, 2021 [...] comment No comparison data on file at [facility]. Microcytic hypochromic anemia, consistent with iron deficiency. Smear reviewed by pathologist for quality audit representative. Glenroy Mello MD 10/15/20 Prothrombin Time October [...] be used to monitor LMWH therapy. Contact [facility] Pharmacy for monitoring information. Urine Color January 02, 2021 6:04pm Lauren Urine Clarity January 02, 2021 6:04pm very cloudy Urine pH January 02, 2021 6:04pm 6.0 Urine Specific [place] January 02, 2021 6:04pm 1.015 Urine Protein [...] Urine Culture Ur,Clean Catch No results entered [facility] 2020 7:39pm Routine Culture Umbilicus Staphylococcus Aureus-Mrsa March 16, 2021 10:27am March 20, 2021 8:34am Gram Stain Umbilicus No results entered March 16, 2021 10:27am Blood Culture Blood NO GROWTH AFTER 5 DAYS March 18, 2021 9:10pm Advance Directives Advance Directive Response Recorded Date/ Time Do we have a copy on file here at [facility]? No October 14, 2020 11:22pm Does patient have an Advanced Directive? No October 14, 2020 11:22pm Pt has a Living Will? No October 14 11:22pm Pt has a Power of Maxillofacial Pathology? No October 14, 2020 11:22pm Chief Complaint and Reason for Visit Encounter Admit Date Chief Complaint Reason for V isit Departed Emergency August 10, 2021 2:19pm ABDOMINAL CARLITA N Hospital Discharge Instructions Additional Discharge Instructions We do recommend that you get a stool sample done with your primary care doctor to be sure you do not have clostridium difficile diarrhea. This can happen after antibiotics but especially after clindamycin. This can cause profuse diarrhea and abdominal pain. Your lab work is stable. Your white blood cell count is normal. Your chemistries did not show any evidence of dehydration. He did have a negative test here a few days ago. We recommended trying to give us a stool sample before leaving, you should certainly call your primary care doctor to get this followed up. Follow-up with your endometrial specialist tomorrow as you have planned. Return to nearest ER for worsening abdominal pain, persistent vomiting, fever or shaking chills or feeling more ill. We do encourage you to establish primary care in the area. We are giving you the phone number for [facility]. Instruction/Education Provided Diarrhea and Travelers' Diarrhea, Adult (DC) Nausea and Vomiting, Adult (DC) Pelvic Pain (DC) Hospital Discharge Medications Medication Dose Units Route [...] For Pain June 27, 2021 Discontinue d Gabapentin 200 MG ORAL DAILY 2020 Active Hydrocodone- Acetaminophe n 1 TAB ORAL Q6H PRN For pain 9 January 02, 2021 Discontinue d Ondansetron 4 MG ORAL Q6H PRN For nausea and vomiting January 02, 2021 Discontinue d Famotidine-C a Carb-Mag Hydrox 1 TAB ORAL DAILY January 08, 2021 Discontinue d Dicyclomine 10 MG ORAL .q6 prn 2020 Discontinue d Oxycodone MG Novemb er 2020 Discontinue d Fluticasone Propion-Salm eterol INHALATION March 16, 2021 Active Ondansetron Hcl 4 MG ORAL Q8H PRN For nausea and vomiting 12 March 20, 2021 Discontinue d Sulfamethoxa zole-Trimeth oprim 1 TAB ORAL TWICE A DAY March 20, 2021 Discontinue d Tizanidine 4 MG ORAL As Directed PRN For Muscle Spasm August 07, 2021 Active Ondansetron 4 - 8 MG ORAL Q8H PRN For nausea and vomiting 8 August 07, 2021 Active Encounters Encounter Facility Location Admit/Visit Date Discharge/Departure Date Attending Provider Departed [facility] Emergency Department August 10, 2021 2:19pm August 10, 2021 5:11pm Departed [facility] Emergency Department August 07, 2021 11:58am [facility] 07, [facility], [facility] 2[facility]30[facility] June 27, 2021 [facility] March 27, 2021 11:49am March 27, 2021 [facility] 20, 2021 2:33pm March 20, 2021 [facility] 18, 2021 6:11pm March 18, 2021 9[facility] 16, 2021 3:28pm March 16, 2021 [facility] January 29, 2021 8:55pm January 29, [facility] January 21, 2021 2:24pm January 21, 2021 [facility] 07, 2021 4:48pm January 07, 2021 [facility] January 02, 2021 4:12pm January 02, 2021 7:22pm Departed [facility] Emergency Department December 29, 2020 4:23pm December 29, 2020 [facility] October 14, 2020 10:48pm October 15, 2020 12:54am Functional Status Query Response Date Recorded Comment Comprehension Ability Understands Concepts March 18, 2021 8:30pm Mood/Behavior Appropriate March 18, 2021 8:30pm Speech Appropriate Clear March 18, 2021 8:30pm Query Response Date Recorded Comment Living Situation Home August 10, 2021 5:10pm Immunizations No known immunizations. Plan of Care Instructions Diarrhea and Travelers' Diar rodriguez, Adult (DC) Nausea and Vomiting, Adult (DC) Pelvic Pain (DC) Social History Query Response Date Recorded Comment Alcohol Use Yes August 10, 2021 3:07pm Alcohol type hard liquor August 10, 2021 3:07pm Smoking Status Never smoker August 10, 2021 3:07pm Substance/Street Drug Use Yes August 10, 2021 3:07pm Monthly marijuana as of 08/07/21 alcohol intake frequency a few times a month August 10, 2021 3:07pm substance use type marijuana August 10, 2021 3:07pm Query Response Start Date Stop Date Smoking Status Never smoker Vital Signs Vital Reading Result Reference Range Collection Date/Time Height 5 ft 5 in August 07, 2021 12:08pm Weight 86.183 kg August 10, 2021 2:47pm Temperature 98.1 F 97.6 F-99.6 F August 10, 2021 2:47pm Pulse 76 BPM 60-100 August 10, 2021 5:10pm Respiration 18 RPM 12-24 August 10, 2021 5:10pm Pulse Oximetry 98 % 95-100 August 10 5:10pm Blood Pressure Systolic 124 100-140 [facility] 2021 5:10pm Blood Pressure Diastolic 69 50-85 [facility] 2021 5:10pm
--- OUTSIDE RECORDS SUMMARY | 2022-11-20 17:37 | XMS_ITS | Continuity of Care Document ---
Author Name [facility] Address [address] [place] [id number] Organization [facility] Address [address] [place] [id number] Care Team Providers Care Banking And Finance Instructor Name Role Phone Out of Town, Provider [...] comment No [place] [facility] Microcytic hypochromic anemia, consistent with iron deficiency. Smear reviewed by pathologist for quality assurance analyst. Glenroy Mello MD 10/15/20 Prothrombin Time October [...] be used to monitor LMWH therapy. Contact [facility] for monitoring information. Urine Color January 02, 2021 6:04pm Lauren Urine Clarity January 02, 2021 6:04pm very cloudy Urine pH January 02, 2021 6:04pm 6.0 Urine Specific [place] January 02, 2021 6:04pm 1.015 Urine Protein [...] Urine Culture Ur,Clean Catch No results entered [facility] 2020 7:39pm Routine Culture Umbilicus Staphylococcus Aureus-Mrsa March 16, 2021 10:27am March 20, 2021 8:34am Gram Stain Umbilicus No results entered March 16, 2021 10:27am Blood Culture Blood NO GROWTH AFTER 5 DAYS March 18, 2021 9:10pm Advance Directives Advance Directive Response Recorded Date/ Time Do we [place] a [place] [facility] No October 14, 2020 11:22pm Does patient have an Advanced Directive? No October 14, 2020 11:22pm Pt has a Living Will? No October 14 11:22pm Pt has a Power of Charge Attendant? No October 14, 2020 11:22pm Chief Complaint [...] Admit/Visit Date Discharge/Departure Date Attending Provider Departed [facility] Emergency Department August 10, 2021 2:19pm August 10, 2021 5:11pm Departed [facility] Department August 07, 2021 11:58am August 07, [facility], 2021 2:30pm June 27, 2021 [facility] March 27, 2021 11:49am March 27, 2021 [facility] March 20, 2021 2:33pm March 20, 2021 6[facility] March 18, 2021 6:11pm March 18, 2021 9:19[facility] March 16, 2021 3:28pm March 16, 2021 10:[facility] January 29, 2021 8:55pm January 29, 2021 [facility] January 21, 2021 2:24pm January 21, 2021 4:51[facility] January 07, 2021 4:48pm January 07, 2021 6:55[facility] January 02, 2021 4:12pm January 02, 2021 7:22pm Departed [facility] December 29, 2020 4:23pm December 29, 2020 7:[facility] October 14, 2020 [...] 10 5:10pm Blood Pressure Systolic 124 100-140 [facility] 2021 5:10pm Blood Pressure Diastolic 69 50-85 [facility] [place] [facility] 2021 5:10pm
--- OUTSIDE RECORDS SUMMARY | 2022-11-20 17:37 | XMS_ITS | Continuity of Care Document ---
Author Name [facility] Address [address] [place] [id number] Organization [facility] Address [address] [place] [address] Care Team Providers Care Bioinformatics Assistant Name Role Phone Out of Town, Provider [...] 10 MG ORAL .q6 prn [address] 2020January 21, 2021 Discontinued Oxycodone MG Novemb er 2020June 27, 2021 Discontinued Ondansetron Hcl [Zofran] 4 MG ORAL Q8H PRN For nausea and vomiting 12 4 March 20, 2021 March 24, 2021 Discontinued Sulfamethoxaz ole-Trimethop rim [Bactrim Ds] 1 TAB ORAL TWICE A DAY 14 March 20, 2021 March 27, 2021 Discontinued Problem List Active Problems Medical Problem Onset Date Status Endometriosis Active Inactive/Resolved Problems Medical Problem Onset Date [...] comment No comparison data on file at [facility]. Microcytic hypochromic anemia, consistent with iron deficiency. Smear reviewed by pathologist for manufacturing quality engineer. Glenroy Mello MD 10/15/20 Prothrombin Time October [...] be used to monitor LMWH therapy. Contact [facility] for monitoring information. Urine Color January 02, 2021 6:04pm Lauren Urine Clarity January 02, 2021 6:04pm very cloudy Urine pH January 02, 2021 6:04pm 6.0 Urine Specific [place] January 02, 2021 6:04pm 1.015 Urine Protein [...] Urine Culture Ur,Clean Catch No results entered [facility] 2020 7:39pm Routine Culture Umbilicus Staphylococcus Aureus-Mrsa March 16, 2021 10:27am March 20, 2021 8:34am Gram Stain Umbilicus No results entered March 16, 2021 10:27am Blood Culture Blood NO GROWTH AFTER 5 DAYS March 18, 2021 9:10pm Advance Directives Advance Directive Response Recorded Date/ Time Do we have a copy on file here at [facility]? No October 14, 2020 11:22pm Does patient have an Advanced Directive? No October 14, 2020 11:22pm Pt has a Living Will? No October 14 11:22pm Pt has a Power of Senior Logistics Manager? 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 Instruction/Education Provided Endometri osis (DC) Hospital Discharge Medications Medication Dose Units [...] Discontinue d Gabapentin 200 MG ORAL DAILY t 2020 [...] Date Discharge/Departure Date Attending Provider Departed Emergency [facility] Emergency Department August 26, 2021 5:22pm August 26, 2021 7:15pm Departed Emergency [facility] Emergency Department August 10, 2021 2:19pm August 10, 2021 5:11pm Departed Emergency [facility] Emergency Department August 07, 2021 11:58am August 07, 2021 5:15pm Departed Emergency [facility] Emergency Department June 27, 2021 2:30pm June 27, 2021 4:01pm Departed Emergency [facility] Emergency Department March 27, 2021 11:49am March 27, 2021 2:32pm Departed Emergency [facility] Emergency Department March 20, 2021 2:33pm March 20, 2021 6:25pm Departed Emergency [facility] Emergency Department March 18, 2021 6:11pm March 18, 2021 9:19pm Departed Emergency [facility] Emergency Department March 16, 2021 3:28pm March 16, 2021 10:43pm Departed Emergency [facility] Emergency Department January 29, 2021 8:55pm January 29, 2021 11:08pm Departed Emergency [facility] [place] January 21, 2021 2:24pm January 21, 2021 4:51pm Departed Emergency [facility] Emergency Department January 07, 2021 4:48pm January 07, 2021 6:55pm Departed [facility] Emergency Department January 02, 2021 4:12pm January 02, 2021 7:22pm Departed Emergency [facility] Emergency Department December 29, 2020 4:23pm December 29, 2020 7:13pm Departed Emergency [facility] Emergency Department October 14, 2020 10:48pm October 15, 2020 12:54am Functional Status Query Response Date Recorded Comment Comprehension Ability Understands Concepts March 18, 2021 8:30pm Mood/Behavior Appropriate March 18, 2021 8:30pm Speech Appropriate Clear March 18, 2021 8:30pm Query Response Date Recorded Comment Living Situation Home With Family August 26, 2021 7:15pm Immunizations No known immunizations. Plan of Care Instructions Endometriosis (DC) Social History Query Response Date Recorded Comment Alcohol Use Yes August 26, 2021 6:45pm Alcohol type hard liquor August 26, 2021 6:45pm Smoking Status Never smoker August 26, 2021 6:45pm Substance/Street Drug Use Yes August 26, 2021 6:45pm Monthly marijuana as of 08/07/21 alcohol intake frequency a few times a month August 26, 2021 6:45pm substance use type marijuana August 26, 2021 6:45pm Query Response Start Date Stop Date Smoking Status Never smoker Vital Signs Vital Reading Result Reference Range Collection Date/Time Height 5 ft 5 in August 07, 2021 12:08pm Weight 86.183 kg August 26, 2021 5:37pm Temperature 97.8 F 97.6 F-99.6 F August 26, 2021 5:37pm Pulse 78 BPM 60-100 August 26, 2021 5:37pm Respiration 18 RPM 12-24 August 26, 2021 5:37pm Pulse Oximetry 100 % 95-100 August 26 5:37pm Blood Pressure Systolic 105 100-140 Apr2021 5:37pm Blood Pressure Diastolic 61 50-85 Apr il 2021 5:37pm
--- OUTSIDE RECORDS SUMMARY | 2022-11-20 17:37 | XMS_ITS | Continuity of Care Document ---
Author Name [facility] Address [address] [place] [id number] Organization [facility] Address [address] [place] [id number] Care Team Providers Care Product Info Specialist Name Role Phone Out of Town, Provider [...] comment No comparison data on file at [facility]. Microcytic hypochromic anemia, consistent with iron deficiency. Smear reviewed by pathologist for senior quality control technician. Glenroy Mello MD 10/15/20 Prothrombin Time October [...] be used to monitor LMWH therapy. Contact [facility] Pharm[facility] for monitoring information. Urine Color January 02, 2021 6:04pm Lauren Urine Clarity January 02, 2021 6:04pm very cloudy Urine pH January 02, 2021 6:04pm 6.0 Urine Specific [place] January 02, 2021 6:04pm 1.015 Urine Protein [...] Urine Culture Ur,Clean Catch No results entered [facility] 2020 7:39pm Routine Culture Umbilicus Staphylococcus Aureus-Mrsa March 16, 2021 10:27am March 20, 2021 8:34am Gram Stain Umbilicus No results entered March 16, 2021 10:27am Blood Culture Blood NO GROWTH AFTER 5 DAYS March 18, 2021 9:10pm Advance Directives Advance Directive Response Recorded Date/ Time Do we have a copy on file here at [facility]? No October 14, 2020 11:22pm Does patient have an Advanced Directive? No October 14, 2020 11:22pm Pt has a Living Will? No October 14 11:22pm Pt has a Power of Floor Worker? No October 14, 2020 11:22pm Chief Complaint [...] 8:55pm January 29, 2021 11:08pm Departed Emergency [facility] January 21, 2021 2:24pm January 21, 2021 [...]
--- OUTSIDE RECORDS SUMMARY | 2022-11-20 17:37 | XMS_ITS | Continuity of Care Document ---
Author Name [facility] Address [address] [place] [address] Organization [facility] Address [address] [place] [address] Care Team Providers Care Water Main Installer Helper Name Role Phone Out of Town, Provider Primary Care Physician Mary vailable Allergies, Adverse Reactions, Alerts Allergen Type Severity Reaction Last Updated Verified Status droperidol Allergy anaphylactic shock Februa ry 2021 Y Active haloperidol Allergy rash January [...] Active Problems Medical Problem Onset Date Status Abdominal pain, RLQ Active Hx of endometriosis Active Constipation Active Inactive/Resolved Problems Medical Problem Onset Date [...] ovary I nactive Procedures Procedure Date Status CT Abd Pel w/ Contrast August 07, [...] Result Co mment White Blood Count August 07, 2021 1:30pm 4.95 1000/mm3 4.8-10.8 Red Blood Count August 07, 2021 1:30pm 4.43 M/mm3 4.20-5.40 Hemoglobin August 07, 2021 1:30pm 11.4 g/dL Low 12.0-16.0 Hematocrit August 07, 2021 1:30pm 36.4 % Low 37-47 Mean Corpuscular Volume August 07, 2021 1:30pm 82.2 fL 81.0-99.0 Mean Corpuscular Hemoglobin August 07, 2021 1:30pm 25.7 pg Low 27-31 Mean Corpuscular Hemoglobin Concent August 07, 2021 1:30pm 31.3 g/dL Low 33-37 Red Cell Distribution Width August 07, 2021 1:30pm 14.0 % 11.5-14.5 Platelet Count August 07, 2021 1:30pm 207 1000/mm3 140-440 Mean Platelet Volume August 07, 2021 1:30pm 11.0 fL High 7.4-10.4 Neutrophils (%) (Auto) August 07, 2021 1:30pm 67.7 % 40.0-72.0 Lymphocytes (%) (Auto) August 07, 2021 1:30pm 24.2 % 17-45 Monocytes (%) (Auto) August 07, 2021 1:30pm 5.9 % 3-11 Eosinophils (%) (Auto) August 07, 2021 1:30pm 1.2 % 0-3 Basophils (%) (Auto) August 07, 2021 1:30pm 0.8 % 0-1 Immature Granulocyte % (Auto) August 07, 2021 1:30pm 0.2 % 0-1 Neutrophils # (Auto) August 07, 2021 1:30pm 3.35 1000/mm3 1.4-6.5 Lymphocytes # (Auto) August 07, 2021 1:30pm 1.20 1000/mm3 1.2-3.4 Monocytes # (Auto) August 07, 2021 1:30pm 0.29 1000/mm3 0.0-0.8 Eosinophils # (Auto) August 07, 2021 1:30pm 0.06 1000/mm3 0.0-0.7 Basophils # (Auto) August 07, 2021 1:30pm 0.04 1000/mm3 0.0-0.1 Absolute Immature Granulocyte (auto August 07, 2021 1:30pm 0.0 0-1 Differential Method August 07, 2021 1:30pm Automated Differential Pathologist's Review October 14, 2020 11:38pm See comment No comparison data on file at [facility]. Microcytic hypochromic anemia, consistent with iron deficiency. Smear reviewed by pathologist for fiberglass quality technician. Glenroy Mello MD 10/15/20 Prothrombin Time [...] be used to monitor LMWH therapy. Contact [facility] Pharmacy for monitoring information. Urine Color January 02, 2021 6:04pm Lauren Urine Clarity January 02, 2021 6:04pm very cloudy Urine pH January 02, 2021 6:04pm 6.0 Urine Specific [place] January 02, 2021 6:04pm 1.015 Urine Protein [...] 02, 2021 6:04pm Negative Sodium Level August 07, 2021 1:30pm 141 mmol/L 137-145 Potassium Level August 07, 2021 1:30pm 4.3 mmol/L 3.6-5.0 Chloride Level August 07, 2021 1:30pm 105 mmol/L 98-107 Carbon Dioxide Level August 07, 2021 1:30pm 24 mmol/L 22-30 Anion Gap August 07, 2021 1:30pm 12 7-16 Blood Urea Nitrogen August 07, 2021 1:30pm 14 mg/dL 7-17 Creatinine August 07, 2021 1:30pm 0.65 mg/dL 0.52-1.04 Glomerular Filtration Rate Calc August 07, 2021 1:30pm > 60 mL/min 60.0- Glucose Level August 07, 2021 1:30pm 100 mg/dL 70-100 Calcium Level August 07, 2021 1:30pm 9.8 mg/dL 8.4-10.2 Calcium Adjusted for Albumin August [...] Urine Culture Ur,Clean Catch No results entered [facility] 2020 7:39pm Routine Culture Umbilicus Staphylococcus Aureus-Mrsa March 16, 2021 10:27am March 20, 2021 8:34am Gram Stain Umbilicus No results entered March 16, 2021 10:27am Blood Culture Blood NO GROWTH AFTER 5 DAYS March 18, 2021 9:10pm Advance Directives Advance Directive Response Recorded Date/ Time Do we have a copy on file here at [facility]? No October 14, 2020 11:22pm Does patient have an Advanced Directive? No October 14, 2020 11:22pm Pt has a Living Will? No October 14 11:22pm Pt has a Power of Hot Blast Worker? No October 14, 2020 11:22pm Chief Complaint and Reason for Visit Encounter Admit Date Chief Complaint Reason for V isit Departed Emergency August 07, 2021 11:58am RIGHT SIDE P AIN Hospital Discharge Instructions Additional Discharge Instructions Follow -up with your PCP and DRAPERY HAND for ongoing pain management or immediately here in the ED for high fever or other acutely worsening/new symptoms. Drink plenty of clear fluids. Increased exercise and fiber in your diet. Instruction/Education Provided Constipat ion, Adult (DC) Hospital Discharge Medications Medication Dose Units Route Sig Qty Days Order Date Status Ins tructions Sertraline 100 MG ORAL DAILY October 14, 2020 Active Docusate Sodium 50 MG ORAL TWICE A DAY October 14, 2020 Discontinue d Trazodone 100 MG ORAL BEDTIME Myranda 2 , 2021 Active Hydroxyzine Hcl 100 MG ORAL BEDTIME October 14, 2020 Active Ferrous Sulfate 325 MG ORAL DAILY October 15, 2020 Discontinue d Hydrocodone- Acetaminophe n December 29, 2020 Discontinue d Cefdinir 300 MG ORAL TWICE A DAY January 21, 2021 Discontinue d Tramadol 50 MG ORAL Q8H PRN For pain 10 January 21, 2021 Discontinue d Montelukast 10 MG ORAL DAILY 2021 Active Omeprazole 20 MG ORAL DAILY 2021 Discontinue d Cephalexin 500 MG ORAL FOUR TIMES DAILY June 27, 2021 Discontinue d Tramadol 50 MG ORAL Q6H PRN For Pain 7 June 27, 2021 Discontinue d Gabapentin 200 [...] Location Admit/Visit Date Discharge/Departure Date Attending Provider Depart Emergency [facility] Emergency Department August 07, 2021 11:58am August 07, 2021 5:15pm Departed Emergency [facility] Emergency Department June 27, 2021 2:30pm June 27, 2021 4:01pm Departed Emergency [facility] Emergency Department March 27, 2021 11:49am March 27, 2021 2:32pm Departed Emergency [facility] Emergency Department March 20, 2021 2:33pm March 20, 2021 6:25pm Departed Emergency [facility] Emergency Department March 18, 2021 6:11pm March 18, 2021 9:19pm Departed Emergency [facility] Emergency Department March 16, 2021 3:28pm March 16, 2021 10:43pm Departed Emergency [facility] Emergency Department January 29, 2021 8:55pm January 29, 2021 11:08pm Departed [facility] January 21, 2021 2:24pm January 21, 2021 4:51pm Departed Emergency [facility] Emergency Department January 07, 2021 4:48pm January 07, 2021 6:55pm Departed Emergency [facility] Emergency Department January 02, 2021 4:12pm January 02, 2021 7:22pm Departed Emergency [facility] Emergency Department December 29, 2020 4:23pm December 29, 2020 7:13pm Departed Emergency [facility] Emergency Department October 14, 2020 10:48pm October 15, 2020 12:54am Functional Status Query Response Date Recorded Comment Comprehension Ability Understands Concepts March 18, 2021 8:30pm Mood/Behavior Appropriate March 18, 2021 8:30pm Speech Appropriate Clear March 18, 2021 8:30pm Query Response Date Recorded Comment Living Situation Home With Significant Other August 07, 2021 5:14pm Immunizations No known immunizations. Plan of Care Instructions Constipation, Adult (DC) Social History Query Response Date Recorded Comment Alcohol Use Yes August 07, 2021 3:17pm Alcohol type hard liquor August 07, 2021 3:17pm Smoking Status Never smoker August 07, 2021 3:17pm Substance/Street Drug Use Yes August 07, 2021 3:17pm Monthly marijuana as of 08/07/21 alcohol intake frequency a few times a month August 07, 2021 3:17pm substance use type marijuana August 07, 2021 3:17pm Query Response Start Date Stop Date Smoking Status Never smoker Vital Signs Vital Reading Result Reference Range Collection Date/Time Height 5 ft 5 in August 07, 2021 12:08pm Weight 86.183 kg August 07, 2021 12:08pm Temperature 98.6 F 97.6 F-99.6 F August 07, 2021 12:08pm Pulse 112 BPM 60-100 August 07, 2021 5:10pm Respiration 20 RPM 12-August 07, 2021 12:08pm Pulse Oximetry 96 % 95-100 August 07 5:10pm Blood Pressure Systolic 99 100-140 [facility] 2021 5:10pm Blood Pressure Diastolic 65 50-85 [facility] 2021 5:10pm
--- OUTSIDE RECORDS SUMMARY | 2022-11-20 17:37 | XMS_ITS | Continuity of Care Document ---
Author Name [facility] Address [address] [place] [id number] Organization [facility] Address [address] [place] [id number] Care Team Providers Care Vacuum Cleaner Assembler Name Role Phone Out of Town, Provider [...] comment No comparison data on file at [facility]. Microcytic hypochromic anemia, consistent with iron deficiency. [...] be used to monitor LMWH therapy. Contact [facility] Pharmacy for monitoring information. Urine Color January 02, 2021 6:04pm Lauren Urine Clarity January 02, 2021 6:04pm very cloudy Urine pH January 02, 2021 6:04pm 6.0 Urine Specific [place] January 02, 2021 6:04pm 1.015 Urine Protein [...] Urine Culture Ur,Clean Catch No results entered [facility] 2020 7:39pm Routine Culture Umbilicus Staphylococcus Aureus-Mrsa March 16, 2021 10:27am March 20, 2021 8:34am Gram Stain Umbilicus No results entered March 16, 2021 10:27am Blood Culture Blood NO GROWTH AFTER 5 DAYS March 18, 2021 9:10pm Advance Directives Advance Directive Response Recorded Date/ Time Do we have a copy on file here at [facility]? No October 14, 2020 11:22pm Does patient have an Advanced Directive? No October 14, 2020 11:22pm Pt has a Living Will? No October 14 11:22pm Pt has a Power of Severity Of Illness Coordinator? No October 14, 2020 11:22pm Chief Complaint [...] Date Discharge/Departure Date Attending Provider [facility] 8:55pm January 29, 2021 11:08pm Departed Emergency [facility] January 21, 2021 2:24pm January 21, [...]
--- OUTSIDE RECORDS SUMMARY | 2022-11-20 17:37 | XMS_ITS | Continuity of Care Document ---
Author Name [facility] Address [address] [place] [id number] Organization [facility] Address [address] [place] [address] Care Team Providers Care Solar Fabrication Technician Name Role Phone Out of Town, Provider [...] comment No comparison data on file at [facility]. Microcytic hypochromic anemia, consistent with iron deficiency. Smear reviewed by pathologist for water quality assistant. Glenroy Mello MD 10/15/20 Prothrombin Time October [...] be used to monitor LMWH therapy. Contact [facility] for monitoring information. Urine Color January 02, 2021 6:04pm Lauren Urine Clarity January 02, 2021 6:04pm very cloudy Urine pH January 02, 2021 6:04pm 6.0 Urine Specific [place] January 02, 2021 6:04pm 1.015 Urine Protein [...] Urine Culture Ur,Clean Catch No results entered [facility] 2020 7:39pm Routine Culture Umbilicus Staphylococcus Aureus-Mrsa March 16, 2021 10:27am March 20, 2021 8:34am Gram Stain Umbilicus No results entered March 16, 2021 10:27am Blood Culture Blood NO GROWTH AFTER 5 DAYS March 18, 2021 9:10pm Advance Directives Advance Directive Response Recorded Date/ Time Do we have a copy on file here at [facility]? No October 14, 2020 11:22pm Does patient have an Advanced Directive? No October 14, 2020 11:22pm Pt has a Living Will? No October 14 11:22pm Pt has a Power of Reconstructive Surgeon? 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 Additional Discharge Instructions [...] 2021 Active Omeprazole 20 MG ORAL DAILY [id number] Discontinue d Cephalexin 500 MG ORAL FOUR [...] [facility] August 26, 2021 5:22pm August 26, 2021 7:15pm Departed Emergency [facility] Emergency Department August 10, 2021 2:19pm August 10, 2021 5:11pm Departed [facility] 2021 6:11pm March 18, 2021 9:19pm Departed [facility] Emergency Department March 16, 2021 3:28pm March 16, 2021 10:43pm Departed Emergency [facility] Emergency Department January 29, 2021 8:55pm January 29, 2021 11:08pm Departed Emergency [facility] [place] January 21, 2021 2:24pm January 21, 2021 4:51pm Departed [facility] Emergency Department January 07, 2021 4:48pm January 07, 2021 6:55pm Departed [facility] Emergency Department January 02, 2021 4:12pm January 02, 2021 7:22pm Departed [facility] Emergency Department December 29, 2020 4:23pm [...] 26 5:37pm Blood Pressure Systolic 105 100-140 [facility] 2021 5:37pm Blood Pressure Diastolic 61 50-85 Apr il 2021 5:37pm
--- OUTSIDE RECORDS SUMMARY | 2022-11-20 17:38 | XMS_ITS | Continuity of Care Document ---
Author Name [facility] Address [address] [place] [id number] Organization [facility] Address [address] [place] [id number] Care Team Providers Care Bale Breaker Operator Name Role Phone Out of Town, Provider Primary Care Physician Mary vailable Allergies, Adverse Reactions, Alerts Allergen Type Severity Reaction Last Updated Verified Status haloperidol Allergy rash January 21, 2021 Y Ac tive ketorolac Allergy anaphylaxis December 29, 2020 Y [...] MG ORAL BEDTIME October 14, 2020 Active Gabapentin 200 MG ORAL DAILY Augus t 2020 Active Ondansetron 4 MG ORAL Q6H PRN For nausea and vomiting 10 January 02, 2021 Active Oxycodone MG Novemb er 2020 Active Fluticasone Propion-Salmeterol [Advair Hfa] INHALATION Novemb er 2020 Active Ondansetron Hcl [Zofran] 4 MG ORAL Q8H PRN For nausea and vomiting 12 4 March 20, 2021 Active Sulfamethoxazole-T rimethoprim [Bactrim Ds] 1 TAB ORAL TWICE A DAY 14 2020 Active Discontinued Medications Medication Dose Units Route Sig Qty Days Start Date Di scontinued Date Status Ferrous Sulfate 325 MG ORAL DAILY 14 October 15, 2020 March 16, 2021 Discontinued Hydrocodone-Ac etaminophen December 132020January 07, 2021 Discontinued Cefdinir 300 MG ORAL TWICE A DAY 20 January 21, 2021 January 29, 2021 Discontinued Tramadol 50 MG ORAL Q8H PRN For pain 10 January 21, 2021 January 29, 2021 Discontinued Hydrocodone-Ac etaminophen 1 TAB ORAL Q6H PRN For pain 9 January 02, 2021 January 07, 2021 Discontinued Famotidine-Ca Carb-Mag Hydrox [Pepcid Complete] 1 TAB ORAL DAILY 30 January 08, 2021 January 29, 2021 Discontinued Dicyclomine 10 MG ORAL .q6 prn 30 2020January 21, 2021 Discontinued Problem List Active Problems Medical Problem Onset Date Status Pelvic pain Active Diarrhea Active 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 Vaginal bleeding Active Endometriosis Active Vomiting Active Inactive/Resolved Problems Medical Problem Onset Date Status Ovarian cyst Inactive Functional abdominal pain syndrome Inactive Gastritis Inactive Post-operative pain Inactive Pain, dental Inactive Pain, dental Inactive Iron deficiency anemia Inactive Abdominal pain Inactive Abdominal pain Inactive Hemorrhagic cyst of left ovary I nactive Procedures Procedure Date Status US Pelvic Non-OB (Complete) March 20, 2021 act wili Blood Culture March 18, 2021 active Urine Culture March 16, 2021 completed Routine [...] comment No comparison data on file at [facility]. Microcytic hypochromic anemia, consistent with iron deficiency. Smear reviewed by pathologist for microbiology quality control technician. Glenroy Mello MD 10/15/20 [...] be used to monitor LMWH therapy. Contact [facility] Pharm[facility] for monitoring information. Urine Color January 02, 2021 6:04pm Lauren Urine Clarity January 02, 2021 6:04pm very cloudy Urine pH January 02, 2021 6:04pm 6.0 Urine Specific [place] January 02, 2021 6:04pm 1.015 Urine Protein [...] 6:04pm Large (3+) JOEL/uL High Urine RBC March 16, 2021 6:40pm Tntc /hpf High Urine WBC March 16, 2021 6:40pm See comment /hpf Microscopic field obscured by RBC. Urine Squamous Epithelial Cells January 02, 2021 6:04pm 1+ /hpf Urine Bacteria March 16, 2021 6:40pm See comment /hpf Microscopic field obscured by RBC. Urine Mucus October 14, 2020 11:45pm Present Urine Culture Done March 16, 2021 6:40pm Yes URINE SPECIMEN CULTURED Urine Test January 02, 2021 6:04pm Negative [...] Urine Culture Ur,Clean Catch No results entered [facility] 2020 7:39pm Routine Culture Umbilicus Staphylococcus Aureus-Mrsa March 16, 2021 10:27am March 20, 2021 8:34am Gram Stain Umbilicus No results entered March 16, 2021 10:27am Advance Directives Advance Directive Response Recorded Date/ Time Do we have a copy on file here at [facility]? No October 14, 2020 11:22pm Does patient have an Advanced Directive? No October 14, 2020 11:22pm Pt has a Living Will? No October 14 11:22pm Pt has a Power of Analytic Manager? No October 14, 2020 11:22pm Chief Complaint and Reason for Visit Encounter Admit Date Chief Complaint Reason for V isit Departed Emergency March 20, 2021 2:33pm HEAVY VAG B [facility] Discharge Instructions Additional Discharge Instructions Your r ed cell count is stable, and your electrolytes and chemistries are normal. Continue tylenol and ibuprofen as directed for pain. Be sure to drink sips of fluids every 10-15 minutes to stay well hydrated. We have scheduled an ultrasound for you at 9 AM tomorrow to further evaluate your pelvic pain and left ovarian cyst. Call Dr. Teran on Monday for close follow up. You are likely having breakthrough bleeding after not having a menstrual cycle in a while. Return to ER immediately for fever, continued vomiting, worsening pelvic or abdominal pain, or any concerns. We are presciribg zofran to help with vomiting. You may have a virus causing vomiting and diarrhea or may be related to your recent surgery. Instruction/Education Provided Diarrhea and Travelers' Diarrhea, Adult (DC) Pelvic Pain (DC) Nausea and Vomiting After Surgery Hospital Discharge Medications Medication Dose Units Route [...] For pain January 21, 2021 Discontinue d Gabapentin 200 MG ORAL DAILY Ronnie holly 2020 Active Hydrocodone- Acetaminophe n 1 TAB ORAL Q6H PRN For pain 9 January 02, 2021 Discontinue d Ondansetron 4 MG ORAL Q6H PRN For nausea and vomiting 10 January 02, 2021 Active Famotidine-C a Carb-Mag Hydrox 1 TAB ORAL DAILY 30 January 08, 2021 Discontinue d Dicyclomine 10 MG ORAL .q6 prn [address] 2020 Discontinue d Oxycodone MG Novemb er 2020 Active Fluticasone Propion-Salm eterol INHALATION March 16, 2021 Active Ondansetron Hcl 4 MG ORAL Q8H PRN For nausea and vomiting 12 4 March 20, 2021 Active Sulfamethoxa zole-Trimeth oprim 1 TAB ORAL TWICE A DAY 14 March 20, 2021 Active Encounters Encounter Facility Location Admit/Visit Date Discharge/Departure Date Attending Provider Departed [facility] Emergency Department March 20, 2021 2:33pm March 20, 2021 6:25pm Departed Emergency [facility] Emergency Department March 18, 2021 6:11pm March 18, 2021 9:19pm Departed Emergency [facility] Emergency Department March 16, 2021 3:28pm March 16, 2021 10:[facility] January 29, 2021 8:55pm [facility] 29, [facility] 2:24[facility] January 21, 2021 4:51pm Departed Emergency [facility] Emergency Department January 07, 2021 4:48pm January 07, 2021 6:55pm Departed Emergency [facility] Emergency Department January 02, 2021 4:12pm January 02, 2021 7:22pm Departed Emergency [facility] Emergency Department December 29, 2020 4:23pm December 29, 2020 7:13pm Depart Emergency [facility] Emergency Department October 14, 2020 10:48pm October 15, 2020 12:54am Functional Status Query Response Date Recorded Comment Comprehension Ability Understands Concepts March 18, 2021 8:30pm Mood/Behavior Appropriate March 18, 2021 8:30pm Speech Appropriate Clear March 18, 2021 8:30pm Query Response Date Recorded Comment Living Situation Home March 20, 2021 6:25pm Immunizations No known immunizations. Plan of Care Instructions Diarrhea and Travelers' Diar rodriguez, Adult (DC) Pelvic Pain (DC) Nausea and Vomiting After Surgery Social History Query Response Date Recorded Comment Alcohol Use Yes March 20, 2021 4:48pm Alcohol type hard liquor March 20, 2021 4:48pm Smoking Status Never smoker March 20, 2021 4:48pm Substance/Street Drug Use Yes March 20 4:48pm alcohol intake frequency a few times a month March 20, 2021 4:48pm substance use type marijuana March 20, 2021 4:48p m Query Response Start Date Stop Date Smoking Status Never smoker Vital Signs Vital Reading Result Reference Range Collection Date/Time Height 5 ft 4 in March 20 2:44pm Weight 95.254 kg March 20 2:44pm Temperature 97.7 F 97.6 F-99.6 F March 20 2:44pm Pulse 67 BPM 60-100 March 20 5:00pm Respiration 17 RPM 12-24 March 20 5:00pm Pulse Oximetry 100 % 95-100 March 20 021 5:00pm Blood Pressure Systolic 124 100-140 [facility] 2020 5:00pm Blood Pressure Diastolic 57 50-85 [facility] 2020 5:00pm
--- OUTSIDE RECORDS SUMMARY | 2022-11-20 17:38 | XMS_ITS | Continuity of Care Document ---
Author Name [facility] Address [address] [place] [id number] Organization [facility] Address [address] [place] [address] Care Team Providers Care Manager Medical Name Role Phone PCP, of Choice Primary [...] Dicyclomine 10 MG ORAL .q6 prn [address] 2020January 21, 2021 Discontinued Oxycodone MG [...] Vaginal bleeding Inactive Iron deficiency anemia Inactive History of endometriosis Inactiv e Hx of endometriosis Inactive Hx of endometriosis Inactive Abdominal pain, recurrent Inacti ve Nausea & vomiting Inactive Abdominal pain Inactive [...] comment No comparison data [place] [facility] Microcytic hypochromic anemia, consistent with iron deficiency. Smear reviewed by pathologist for housing quality standard inspector. Glenroy Mello MD 10/15/20 Prothrombin Time October [...] be used to monitor LMWH therapy. Contact [facility] for monitoring information. Urine Color January 02, 2021 6:04pm Lauren Urine Clarity January 02, 2021 6:04pm very cloudy Urine pH January 02, 2021 6:04pm 6.0 Urine Specific [place] January 02, 2021 6:04pm 1.015 Urine Protein [...] Urine Culture Ur,Clean Catch No results entered [facility] 2020 7:39pm Routine Culture Umbilicus Staphylococcus Aureus-Mrsa March 16, 2021 10:27am March 20, 2021 8:34am Gram Stain Umbilicus No results entered March 16, 2021 10:27am Blood Culture Blood NO GROWTH AFTER 5 DAYS March 18, 2021 9:10pm Advance Directives Advance Directive Response Recorded Date/ Time Do we have a copy [place] [facility] No October 14, 2020 11:22pm Does patient have an Advanced Directive? No October 14, 2020 11:22pm Pt has a Living Will? No October 14 11:22pm Pt has a Power of Aviation Support Equipment Repairer? No October 14, 2020 11:22pm Chief Complaint and Reason for Visit Encounter Admit Date Chief Complaint Reason for V isit Departed Emergency September 23, 2021 3:02pm abdominal compl [facility] Hospital Discharge Instructions Additional Discharge Instructions Return tomorrow morning for ultrasound of your pelvis with a full bladder at 10 AM. Your test here was normal and your urine showed some mild dehydration. We strongly encourage you to keep in contact with your gummed tape press operator at the [facility]. It is important to keep a follow-up plan with them regarding recurrent pain. You do not have a large ovarian cyst on your ultrasound May 9. You were given morphine and Zofran here [...] 122021 Active Gabapentin 200 MG ORAL DAILY t [...] Provider Departed [facility] Emergency Department September 23, 2021 3:02pm September 23, 2021 7:35pm Departed [facility] Emergency Department August 26, 2021 5:22pm August 26, 2021 7:15pm Departed [facility] Emergency Department August 10, 2021 2:19pm August 10, 2021 5:11pm Departed [facility] Emergency Department August 07, 2021 11:58am August 07, 2021 5:15pm Departed [facility] Emergency Department June 27, 2021 2:30pm June 27, 2021 [facility] March 27, 2021 11:49am March 27, 2021 2:32pm Departed [facility] Department March 20, 2021 2:33pm March 20, 2021 6:25pm [facility] March 18, 2021 6:11pm March 18, 2021 9:19pm Departed [facility] Emergency Department March 16, 2021 3:28pm March 16, 2021 10:43pm Departed [facility] Emergency Department January 29, 2021 8:55pm January 29, [facility] January 21, 2021 2:24pm January 21, 2021 4:51pm [facility] January 07, 2021 4:48pm January 07, 2021 6:55pm [facility] January 02, 2021 4:12pm January 02, 2021 7:22pm [facility] December 29, 2020 4:23pm December 29, 2020 7:13pm [facility] October 14, 2020 10:48pm [...]
--- OUTSIDE RECORDS SUMMARY | 2022-11-20 17:38 | XMS_ITS | Continuity of Care Document ---
Author Name [facility] Address [address] [place] [id number] Organization [facility] Address [address] [place] [id number] Care Team Providers Care Flight Operations Coordinator Name Role Phone Out of Town, Provider [...] comment No comparison data on file at [facility]. Microcytic hypochromic anemia, consistent with iron deficiency. Smear reviewed by pathologist for director quality assurance. Glenroy Mello MD 10/15/20 Prothrombin Time October [...] be used to monitor LMWH therapy. Contact [facility] Pharmacy for monitoring information. Urine Color January 02, 2021 6:04pm Lauren Urine Clarity January 02, 2021 6:04pm very cloudy Urine pH January 02, 2021 6:04pm 6.0 Urine Specific [place] January 02, 2021 6:04pm 1.015 Urine Protein [...] Urine Culture Ur,Clean Catch No results entered [facility] 2020 7:39pm Routine Culture Umbilicus Staphylococcus Aureus-Mrsa March 16, 2021 10:27am March 20, 2021 8:34am Gram Stain Umbilicus No results entered March 16, 2021 10:27am Blood Culture Blood NO GROWTH AFTER 5 DAYS March 18, 2021 9:10pm Advance Directives Advance Directive Response Recorded Date/ Time Do we have a copy on file here at [facility]? No October 14, 2020 11:22pm Does patient have an Advanced Directive? No October 14, 2020 11:22pm Pt has a Living Will? No October 14 11:22pm Pt has a Power of High Value Associate? No October 14, 2020 11:22pm Chief Complaint [...] Provider Departed [facility] Emergency Department August 10, 2021 2:19pm August 10, 2021 5:11pm Departed [facility] Emergency Department August 07, 2021 11:58am August 07, [facility], 2021 2:30pm June 27, 2021 4:01[facility] March 27, 2021 11:49am March 27, 2021 2:32[facility] March 20, 2021 2:33pm March 20, 2021 6:[facility] March 18, 2021 6:11pm March 18, 2021 9:19[facility] March 16, 2021 3:28pm March 16, 2021 10:43[facility] January 29, 2021 8:55pm January 29, 2021 [facility] January 21, 2021 2:24pm January 21, 2021 4:51[facility] January 07, 2021 4:48pm January 07, 2021 6:55[facility] January 02, 2021 4:12pm January 02, 2021 7:22pm Departed [facility] Emergency Department December 29, 2020 4:23pm December 29, 2020 7:13[facility] October 14, 2020 10:48pm [...] 10 5:10pm Blood Pressure Systolic 124 100-140 [facility] 2021 5:10pm Blood Pressure Diastolic 69 50-85 [facility] 2021 5:10pm
--- OUTSIDE RECORDS SUMMARY | 2022-11-20 17:38 | XMS_ITS | Continuity of Care Document ---
Author Name [facility] Address [address] [place] [address] Organization [facility] Address [address] [place] [address] Care Team Providers Care Clinical Laboratory Assistant Name Role Phone PCP, of Choice Primary [...] Medications Medication Dose Units Route Sig Qty Start Date St atus Sertraline 100 MG ORAL DAILY October 14, 2020 Active Docusate Sodium 50 MG ORAL TWICE A DAY October 14, 2020 Active Trazodone 100 MG ORAL BEDTIME October 14, 2020 A ctive Hydroxyzine Hcl 100 MG ORAL BEDTIME October 14, 2020 Active Gabapentin 200 MG ORAL DAILY January 02 Active Ondansetron 4 MG ORAL Q6H PRN For nausea and vomiting January 02, 2021 Active Oxycodone MG March 16 Active Fluticasone Propion-Salmeterol [Advair Hfa] INHALATION March 16, 2021 Active Discontinued Medications Medication Dose Units Route Sig Qty Start Date Di scontinued Date Status Ferrous Sulfate 325 MG ORAL DAILY 14 October 15, 2020 March 16, 2021 Discontinued Hydrocodone-Qamar taminophen December 29, 2020 January 07, 2021 Discontinued Cefdinir 300 MG ORAL TWICE A DAY January 21, 2021 January 29, 2021 Discontinued Tramadol 50 MG ORAL Q8H PRN For pain 10 January 21, 2021 January 29, 2021 Discontinued Hydrocodone-Qamar taminophen 1 TAB ORAL Q6H PRN For pain January 02, 2021 January 07, 2021 Discontinued Famotidine-Ca Carb-Mag Hydrox [Pepcid Complete] 1 TAB ORAL DAILY 30 January 08, 2021 January 29, 2021 Discontinued Dicyclomine 10 MG ORAL .q6 prn January 08, 2021 January 21, 2021 Discontinued Problem List Active Problems Medical Problem Onset Date Status Ovarian cyst Active Inactive/Resolved Problems Medical Problem Onset Date Status Functional abdominal pain syndrome Inactive Gastritis Inactive Pain, dental Inactive Pain, dental Inactive Iron deficiency anemia Inactive Abdominal pain Inactive Abdominal pain Inactive Hemorrhagic cyst of left ovary I nactive Procedures Procedure Date Status CT Abd Pel w/ Contrast March 16, 2021 complete d Urine Culture March 16, 2021 active Urine Culture January 02, [address] Abd Pel w/ Contrast January 02, 2021 completed Relevant Diagnostic Tests and/or Laboratory Data Laboratory Results Test Date/Time Result Interp. Ref. Range Result Co mment White Blood Count March 16, 2021 5:34pm 6.11 1000/mm3 4.8-10.8 Red Blood Count March 16, 2021 5:34pm 4.26 M/mm3 4.20-5.40 Hemoglobin March 16, 2021 5:34pm 9.9 g/dL Low 12.0-16.0 Hematocrit March 16, 2021 5:34pm 33.2 % Low 37-47 Mean Corpuscular Volume March 16, 2021 5:34pm 77.9 fL Low 81.0-99.0 Mean Corpuscular Hemoglobin March 16, 2021 5:34pm 23.2 pg Low 27-31 Mean Corpuscular Hemoglobin Concent March 16, 2021 5:34pm 29.8 g/dL Low 33-37 Red Cell Distribution Width March 16, 2021 5:34pm 16.2 % High 11.5-14.5 Platelet Count March 16, 2021 5:34pm 220 1000/mm3 140-440 Mean Platelet Volume March 16, 2021 5:34pm 10.6 fL High 7.4-10.4 Neutrophils (%) (Auto) March 16, 2021 5:34pm 62.5 % 40.0-72.0 Lymphocytes (%) (Auto) March 16, 2021 5:34pm 26.7 % 17-45 Monocytes (%) (Auto) March 16, 2021 5:34pm 6.9 % 3-11 Eosinophils (%) (Auto) March 16, 2021 5:34pm 2.6 % 0-3 Basophils (%) (Auto) March 16, 2021 5:34pm 1.1 % High 0-1 Immature Granulocyte % (Auto) March 16, 2021 5:34pm 0.2 % 0-1 Neutrophils # (Auto) March 16, 2021 5:34pm 3.82 1000/mm3 1.4-6.5 Lymphocytes # (Auto) March 16, 2021 5:34pm 1.63 1000/mm3 1.2-3.4 Monocytes # (Auto) March 16, 2021 5:34pm 0.42 1000/mm3 0.0-0.8 Eosinophils # (Auto) March 16, 2021 5:34pm 0.16 1000/mm3 0.0-0.7 Basophils # (Auto) March 16, 2021 5:34pm 0.07 1000/mm3 0.0-0.1 Absolute Immature Granulocyte (auto March 16, 2021 5:34pm 0.0 0-1 Differential Method March 16, 2021 5:34pm Automated Differential Pathologist's Review October 14, 2020 11:38pm See comment No comparison data on file at [facility] Microcytic hypochromic anemia, consistent with iron deficiency. Smear reviewed by pathologist for environmental quality analyst. Glenroy Mello MD 10/15/20 Prothrombin Time [...] be used to monitor LMWH therapy. Contact [facility] for monitoring information. Urine Color January 02, 2021 6:04pm Lauren Urine Clarity January 02, 2021 6:04pm very cloudy Urine pH January 02, 2021 6:04pm 6.0 Urine Specific [place] January 02, 2021 6:04pm 1.015 Urine Protein [...] 02, 2021 6:04pm Negative Sodium Level March 16, 2021 5:34pm 137 mmol/L 137-145 Potassium Level March 16, 2021 5:34pm 4.0 mmol/L 3.6-5.0 Chloride Level March 16, 2021 5:34pm 102 mmol/L 98-107 Carbon Dioxide Level March 16, 2021 5:34pm 28 mmol/L 22-30 Anion Gap March 16, 2021 5:34pm 7 7-16 Blood Urea Nitrogen March 16, 2021 5:34pm 10 mg/dL 7-17 Creatinine March 16, 2021 5:34pm 0.62 mg/dL 0.52-1.04 Glomerular Filtration Rate Calc March 16, 2021 5:34pm > 60 mL/min 60.0- Glucose Level March 16, 2021 5:34pm 90 mg/dL 70-100 Calcium Level March 16, 2021 5:34pm 9.5 mg/dL 8.4-10.2 Calcium Adjusted for Albumin March 16, 2021 5:34pm 9.4 mg/dL 8.4-10.2 Iron Level October 14, 2020 11:38pm 36 ug/dL Low 37-170 Total Bilirubin March 16, 2021 5:34pm 0.4 mg/dL 0.2-1.3 Aspartate Amino Transf (AST/SGOT) March 16, 2021 5:34pm 36 U/L 14-36 Alanine Aminotransferase (ALT/SGPT) March 16, 2021 5:34pm 17 U/L As of 09/13/19, the Reference Range for ALT/SGPT for adult patients has been updated. The Reference Range for ALT/SGPT has not been established for patients <18 years of age. Total Protein March 16, 2021 5:34pm 7.2 g/dL 6.3-8.2 Albumin March 16, 2021 5:34pm 4.4 g/dL 3.5-5.0 Alkaline Phosphatase March 16, 2021 5:34pm 45 U/L 38-126 Lipase October 14, 2020 11:38pm 43 U/L 23-300 Ferritin October 14, 2020 11:38pm 4.43 ng/mL Low 10-291 The results of this assay can be falsely decreased in patients who consume Biotin. Microbiology Results Procedure Source Result Collection Date/Time Resu lt Date/Time Urine Culture Ur,Clean Catch No results entered January 02, 2021 6:40pm Advance Directives Advance Directive Response Recorded Date/ Time Do we have a copy on file here at [facility]? No October 14, 2020 11:22pm Does patient have an Advanced Directive? No October 14, 2020 11:22pm Pt has a Living Will? No October 14 11:22pm Pt has a Power of Chief Radiation Therapist? No October 14, 2020 11:22pm Chief Complaint and Reason for Visit Encounter Admit Date Chief Complaint Reason for V isit Departed Emergency March 16, 2021 3:28pm POST OP [facility] Discharge Instructions Additional Discharge Instructions As we discussed, your CT demonstrates a 5x4cm left ovarian cyst. I encourage you to call the OBGYN office tomorrow for an ultrasound of your pelvis and your cyst for further evaluation and monitoring. I would also strongly advise you to call your surgery team tomorrow to follow up regarding your continued pain and weeping surgical sites. Please return for persistent vomiting, diarrhea, or fever. Instruction/Education Provided Ovarian Hetal webb ([facility] Hospital Discharge Medications Medication Dose Units Route [...] 1 TAB ORAL Q6H PRN For pain January 02, 2021 Discontinue d Ondansetron 4 MG ORAL Q6H PRN For nausea and vomiting January 02, 2021 Active Famotidine-C a Carb-Mag Hydrox 1 TAB ORAL DAILY January 08, 2021 Discontinue d Dicyclomine 10 MG ORAL .q6 prn 2020 Discontinue d Oxycodone MG Novemb er 2020 Active Fluticasone Propion-Salm eterol INHALATION March 16, 2021 Active Encounters Encounter Facility Location Admit/Visit Date Discharge/Departure Date Attending Provider Departed Emergency [facility] Emergency Department March 16, 2021 3:28pm March 16, 2021 10:43pm Departed Emergency [facility] Emergency Department January 29, 2021 8:55pm January 29, 2021 11:08pm Departed Emergency [facility] January 21, 2021 2:24pm January 21, [...] Date Recorded Comment Comprehension Ability Understands Concepts January 132020 9:35pm Mood/Behavior Anxious January 29, 2021 9:35pm Query Response Date Recorded Comment Living Situation Home With Family March 16, 2021 10:42pm Immunizations No known immunizations. Plan of Care Instructions Ovarian Cyst (DC) Social History Query Response Date Recorded Comment Alcohol Use Yes March 16, 2021 4:09pm Alcohol type hard liquor March 16, 2021 4:09pm Smoking Status Never smoker March 16, 2021 4:09pm Substance/Street Drug Use Yes March 16 4:09pm alcohol intake frequency a few times a month March 16, 2021 4:09pm substance use type marijuana March 16, 2021 4:09p m Query Response Start Date Stop Date Smoking Status Never smoker Vital Signs Vital Reading Result Reference Range Collection Date/Time Weight 92.986 kg March 16 3:55pm Temperature 99.0 F 97.6 F-99.6 F March 16 3:55pm Pulse 78 BPM 60-100 March 16 9:44pm Respiration 18 RPM 12-24 March 16 9:44pm Pulse Oximetry 98 % 95-100 March 16 9:44pm Blood Pressure Systolic 116 100-140 2020 9:44pm Blood Pressure Diastolic 68 50-85 [facility]2020 9:44pm
--- OUTSIDE RECORDS SUMMARY | 2022-11-20 17:38 | XMS_ITS | Continuity of Care Document ---
Author Name [facility] Address [address] [place] [address] Organization [facility] Address [address] [place] [address] Care Team Providers Care Woven Wood Shade Assembler Name Role Phone PCP, of Choice Primary Care Physician Unavailab le Allergies, Adverse Reactions, Alerts Allergen Type Severity Reaction Last Updated Verified Status ketorolac Allergy anaphylaxis October 14, 2020 Y Activ e latex Allergy October 14, 2020 Y Active Penicillins Allergy hives October 14, 2020 Y Active prochlorperazine Allergy hives October 14, 2020 Y Ac tive Medications Active Medications Medication Dose Units Route Sig Start Date Status Sertraline 100 MG ORAL DAILY October 14, 2020 Active Docusate Sodium 50 MG ORAL TWICE A DAY October 14, 2020 Active Trazodone 100 MG ORAL BEDTIME October 14, 2020 Active Hydroxyzine Hcl 100 MG ORAL BEDTIME October 14, 2020 Act wili Problem List Active Problems Medical Problem Onset Date Status Gastritis Active Microcytic anemia Active Procedures No known history of procedures. Relevant Diagnostic Tests and/or Laboratory Data Laboratory Results Test Date/Time Result Interp. Ref. Range Result Co mment White Blood Count October 14, 2020 11:38pm 7.41 1000/mm3 4.8-10.8 Red Blood Count October 14, 2020 11:38pm 4.44 M/mm3 4.20-5.40 Hemoglobin October 14, 2020 11:38pm 9.2 g/dL Low 12.0-16.0 Hematocrit October 14, 2020 11:38pm 30.6 % Low 37-47 Mean Corpuscular Volume October 14, 2020 11:38pm 68.9 fL Low 81.0-99.0 Mean Corpuscular Hemoglobin October 14, 2020 11:38pm 20.7 pg Low 27-31 Mean Corpuscular Hemoglobin Concent October 14, 2020 11:38pm 30.1 g/dL Low 33-37 Red Cell Distribution Width October 14, 2020 11:38pm 16.8 % High 11.5-14.5 Platelet Count October 14, 2020 11:38pm 250 1000/mm3 140-440 Mean Platelet Volume October 14, 2020 11:38pm 10.6 fL High 7.4-10.4 Neutrophils (%) (Auto) October 14, 2020 11:38pm 60.3 % 40.0-72.0 Lymphocytes (%) (Auto) October 14, 2020 11:38pm 29.0 % 17-45 Monocytes (%) (Auto) October 14, 2020 11:38pm 8.2 % 3-11 Eosinophils (%) (Auto) October 14, 2020 11:38pm 1.1 % 0-3 Basophils (%) (Auto) October 14, 2020 11:38pm 1.3 % High 0-1 Immature Granulocyte % (Auto) October 14, 2020 11:38pm 0.1 % 0-1 Neutrophils # (Auto) October 14, 2020 11:38pm 4.46 1000/mm3 1.4-6.5 Lymphocytes # (Auto) October 14, 2020 11:38pm 2.15 1000/mm3 1.2-3.4 Monocytes # (Auto) October 14, 2020 11:38pm 0.61 1000/mm3 0.0-0.8 Eosinophils # (Auto) October 14, 2020 11:38pm 0.08 1000/mm3 0.0-0.7 Basophils # (Auto) October 14, 2020 11:38pm 0.10 1000/mm3 0.0-0.1 Absolute Immature Granulocyte (auto October 14, 2020 11:38pm 0.0 0-1 Differential Method October 14, 2020 11:38pm Automated Prothrombin Time October 14, 2020 11:38pm 10.8 [...] be used to monitor LMWH therapy. Contact [facility] for monitoring information. Urine RBC October 14, 2020 11:45pm 10-20 /hpf High Urine WBC October 14, 2020 11:45pm 0-2 /hpf Urine Bacteria October 14, 2020 11:45pm 1+ /hpf High Urine Mucus October 14, 2020 11:45pm Present Urine Culture Done October 14, 2020 11:45pm No CULTURE NOT INDICATED. Sodium Level October 14, 2020 11:38pm 138 mmol/L 137-145 Potassium Level October 14, 2020 11:38pm 3.8 mmol/L 3.6-5.0 Chloride Level October 14, 2020 11:38pm 100 mmol/L 98-107 Carbon Dioxide Level October 14, 2020 11:38pm 25 mmol/L 22-30 Anion Gap October 14, 2020 11:38pm 13 7-16 Blood Urea Nitrogen October 14, 2020 11:38pm 15 mg/dL 7-17 Creatinine October 14, 2020 11:38pm 0.76 mg/dL 0.52-1.04 Glomerular Filtration Rate Calc October 14, 2020 11:38pm > 60 mL/min 60.0- Glucose Level October 14, 2020 11:38pm 88 mg/dL 70-100 Calcium Level October 14, 2020 11:38pm 9.3 mg/dL 8.4-10.2 Calcium Adjusted for Albumin October 14, 2020 11:38pm 9.2 mg/dL 8.4-10.2 Total Bilirubin October 14, 2020 11:38pm 0.3 mg/dL 0.2-1.3 Aspartate Amino Transf (AST/SGOT) October 14, 2020 11:38pm 55 U/L High 14-36 Alanine Aminotransferase (ALT/SGPT) October 14, 2020 11:38pm 41 U/L High As of 09/13/19, the Reference Range for ALT/SGPT for adult patients has been updated. The Reference Range for ALT/SGPT has not been established for patients <18 years of age. Total Protein October 14, 2020 11:38pm 7.4 g/dL 6.3-8.2 Albumin October 14, 2020 11:38pm 4.4 g/dL 3.5-5.0 Alkaline Phosphatase October 14, 2020 11:38pm 55 U/L 38-126 Lipase October 14, 2020 11:38pm 43 U/L 23-300 Advance Directives Advance Directive Response Recorded Date/ Time Do we have a copy on file here at [facility]? No October 14, 2020 11:22pm Does patient have an Advanced Directive? No October 14, 2020 11:22pm Pt has a Living Will? No October 14 11:22pm Pt has a Power of Transfer Agent? No October 14, 2020 11:22pm Chief Complaint and Reason for Visit Encounter Admit Date Chief Complaint Reason for V isit Departed Emergency October 14, 2020 10:48pm LEFT FLANK [facility] Hospital Discharge Instructions Additional Discharge Instructions Follow -up with your primary care provider within the next few days to recheck your hemoglobin, be reevaluated and talk about your pain. Small portions and bland diet for now. Restart your omeprazole as discussed. Limit alcohol, caffeine, spicy foods, eating right before bed. Follow-up immediately here for acutely worsening/new symptoms. Stay well-hydrated. Instruction/Education Provided Gastritis (DC) Hospital Discharge Medications Medication Dose Units Route Sig Qty Days Order Date Status Ins tructions Sertraline 100 MG ORAL DAILY October 14, 2020 Active Docusate Sodium 50 MG ORAL TWICE A DAY October 14, 2020 Active Trazodone 100 MG ORAL BEDTIME October Active Hydroxyzine Hcl 100 MG ORAL BEDTIME October 14, 2020 Active Encounters Encounter Facility Location Admit/Visit Date Discharge/Departure Date Attending Provider Departed Emergency [facility] Emergency Department October 14, 2020 10:48pm October 15, 2020 12:54am Functional Status Query Response Date Recorded Comment Comprehension Ability Understands Concepts October 14 11:00pm Mood/Behavior Appropriate October 14, 2020 11:00pm Query Response Date Recorded Comment Living Situation Home October 15, 2020 12:54am Immunizations No known immunizations. Plan of Care Instructions Gastritis (DC) Social History Query Response Date Recorded Comment Alcohol Use Yes October 14, 2020 11:11pm Smoking Status Never smoker October 14, 2020 11:11pm Substance/Street Drug Use Yes October 14, 2020 11 :11pm alcohol intake frequency a few times a month October 14 11:11pm substance use type marijuana October 14, 2020 11:11pm Query Response Start Date Stop Date Smoking Status Never smoker Vital Signs Vital Reading Result Reference Range Collection Date/Time Weight 90.718 kg October 14, 2020 10 :53pm Temperature 97.9 F 97.6 F-99.6 F October 14, 2020 1 0:53pm Pulse 80 BPM 60-100 October 14, 2020 10 :53pm Respiration 16 RPM 12-24 October 14, 2020 10 :53pm Pulse Oximetry 96 % 95-100 October 14, 2020 10:53pm Blood Pressure Systolic 119 100-140 October 14, 2020 10:53pm Blood Pressure Diastolic 61 50-85 [place] 2020 10:53pm
--- OUTSIDE RECORDS SUMMARY | 2022-11-20 17:38 | XMS_ITS | Continuity of Care Document ---
Author Name [facility] Address [address] [place] [id number] Organization [facility] Address [address] [place] [address] Care Team Providers Care Stores Assistant Name Role Phone PCP, of Choice [...] comment No comparison data on file at [facility]. Microcytic hypochromic anemia, consistent with iron deficiency. Smear reviewed by pathologist for quality project manager. Glenroy Mello MD 10/15/20 Prothrombin Time [...] be used to monitor LMWH therapy. Contact [facility] for monitoring information. Urine Color January 02, 2021 6:04pm Lauren Urine Clarity January 02, 2021 6:04pm very cloudy Urine pH January 02, 2021 6:04pm 6.0 Urine Specific [place] January 02, 2021 6:04pm 1.015 Urine Protein [...] Urine Culture Ur,Clean Catch No results entered [facility] 2020 7:39pm Routine Culture Umbilicus Staphylococcus Aureus-Mrsa March 16, 2021 10:27am March 20, 2021 8:34am Gram Stain Umbilicus No results entered March 16, 2021 10:27am Blood Culture Blood NO GROWTH AFTER 5 DAYS March 18, 2021 9:10pm Advance Directives Advance Directive Response Recorded Date/ Time Do we have a copy on file here at [facility]? No October 14, 2020 11:22pm Does patient have an Advanced Directive? No October 14, 2020 11:22pm Pt has a Living Will? No October 14 11:22pm Pt has a Power of Casino Operations Supervisor? No October 14, 2020 11:22pm Chief Complaint and Reason for Visit Encounter Admit Date Chief Complaint Reason for V isit Departed Emergency September 23, 2021 3:02pm abdominal compl [facility] Hospital Discharge Instructions Additional Discharge Instructions Return tomorrow morning for ultrasound of your pelvis with a full bladder at 10 AM. Your test here was normal and your urine showed some mild dehydration. We strongly encourage [facility] It is important to keep a [...] Admit/Visit Date Discharge/Departure Date Attending Provider Departed [facility] Emergency Department September 23, 2021 3:02pm September 23, 2021 7:35pm Departed [facility] Emergency Department August 26, 2021 5:22pm August 26, 2021 7:15pm Departed [facility] Emergency Department August 10, 2021 2:19pm August 10, 2021 5:11pm Departed [facility] Emergency Department August 07, 2021 11:58am August 07, 2021 5:15pm Departed [facility] Emergency Department June 27, 2021 2:30pm [facility] 27[facility] 27[facility] 2021 11:49am March 27, 2021 2:32pm Departed [facility] Emergency Department March 20, 2021 2:33pm March 20, [facility] 18, 2021 6:11pm March 18, 2021 9:19pm Departed [facility] Emergency Department March 16, 2021 3:28pm March 16, 2021 10:43pm Departed [facility] Emergency Department January 29, 2021 8:55pm January 29, 2021 [facility] January 21, 2021 2:24pm January 21, [facility] 07, 2021 4:48pm January 07, [facility] 02, 2021 4:12pm January 02, 2021 [facility] December 29, 2020 4:23pm December 29, 2020 [facility] October 14, 2020 10:48pm [...]
--- OUTSIDE RECORDS SUMMARY | 2022-11-20 17:38 | XMS_ITS | Continuity of Care Document ---
Author Name [facility] Address [address] [place] [address] [facility] Address [address] [place] [address] Care Team Providers Care Hydraulic Plumber Helper Name Role Phone PCP, of Choice Primary [...] 2021 January 21, 2021 Discontinued Problem List Inactive/Resolved Problems Medical Problem Onset Date Status Ovarian cyst Inactive Functional abdominal pain syndrome Inactive Gastritis Inactive Pain, dental Inactive Pain, dental Inactive Iron deficiency anemia Inactive Abdominal pain Inactive Abdominal pain Inactive Hemorrhagic cyst of left ovary I nactive Procedures Procedure Date Status Urine Culture March 16, 2021 completed Gram Stain March 16, [address] Abd Pel w/ Contrast March 16, 2021 complete d Routine Culture March 16, 2021 active Urine Culture [...] comment No comparison data on file at [facility]. Microcytic hypochromic anemia, consistent with iron deficiency. Smear reviewed by pathologist for clinical quality manager. Glenroy Mello MD 10/15/20 Prothrombin [...] be used to monitor LMWH therapy. Contact [facility] for monitoring information. Urine Color January 02, 2021 6:04pm Lauren Urine Clarity January 02, 2021 6:04pm very cloudy Urine pH January 02, 2021 6:04pm 6.0 Urine Specific [place] January 02, 2021 6:04pm 1.015 Urine Protein [...] Urine Culture Ur,Clean Catch No results entered [facility] 2020 7:39pm Gram Stain Umbilicus No results entered March 16, 2021 10:27am Advance Directives Advance Directive Response Recorded Date/ Time Do we have a copy on file here at [facility]? No October 14, 2020 11:22pm Does patient have an Advanced Directive? No October 14, 2020 11:22pm Pt has a Living Will? No October 14 11:22pm Pt has a Power of Experimental Machinist? No October 14, 2020 11:22pm Chief Complaint and Reason for Visit Encounter Admit Date Chief Complaint Reason for V isit Departed Emergency March 16, 2021 3:28pm POST [facility] Hospital Discharge Instructions Additional Discharge Instructions As [...] vomiting, diarrhea, or fever. Instruction/Education Provided Ovarian C yst ([facility]) Hospital Discharge Medications Medication Dose Units [...] TWICE A DAY 20 January 21, 2021 Discontinue d Tramadol 50 MG ORAL Q8H PRN For pain January 21, 2021 Discontinue d Gabapentin 200 MG ORAL DAILY Augus t 2020 Active Hydrocodone- Acetaminophe n 1 [...] Date Discharge/Departure Date Attending Provider Departed Emergency [facility] Emergency Department March 16, 2021 3:28pm March 16, 2021 10:43pm Departed Emergency [facility] Emergency Department January 29, 2021 8:55pm January 29, 2021 11:08pm Departed Emergency [facility] January 21, 2021 2:24pm January 21, 2021 4:51pm Departed Emergency [facility] Emergency Department January 07, 2021 4:48pm January 07, 2021 6:55pm Departed Emergency [facility] Emergency Department January 02, 2021 4:12pm January 02, 2021 7:22pm Departed Emergency [facility] Emergency Department December 29, 2020 4:23pm December 29, 2020 7:13pm Departed Emergency [facility] Emergency Department October 14, 2020 10:48pm [...] 16 9:44pm Blood Pressure Systolic 116 100-140 [facility]2020 9:44pm Blood Pressure Diastolic 68 50-85 [facility]2020 9:44pm
--- OUTSIDE RECORDS SUMMARY | 2022-11-20 17:38 | XMS_ITS | Continuity of Care Document ---
Author Name [facility] Address [address] [place] [id number] Organization [facility] Address [address] [place] [id number] Care Team Providers Care Power Shear Operator Name Role Phone Out of Town, [...] deficiency. Smear reviewed by pathologist for director of quality control. Glenroy Mello MD 10/15/20 Prothrombin Time October [...] January 02, 2021 6:04pm 6.0 Urine Specific [place] January 02, 2021 6:04pm 1.015 Urine Protein [...] Urine Culture Ur,Clean Catch No results entered [facility] 2020 7:39pm Routine Culture Umbilicus [...] 14 11:22pm Pt has a Power of Research Compliance Specialist? No October 14, 2020 11:22pm Chief Complaint [...] Admit/Visit Date Discharge/Departure Date Attending Provider Departed [facility] Emergency Department August 10, 2021 2:19pm August 10, 2021 5:11pm Departed [facility] Emergency Department August 07, 2021 11:58am [facility] 07, [facility], [facility] 2[facility]30pm June 27, [facility] March 27, 2021 11:49am March 27, 2021 [facility] 20, 2021 2:33pm March 20, 2021 [facility] 18, 2021 6:11pm March 18, 2021 [facility] 16, 2021 3:28pm March 16, 2021 [facility] January 29, 2021 8:55pm January 29, [facility] January 21, 2021 2:24pm January 21, 2021 [facility] 07, 2021 4:48pm January 07, 2021 [facility] January 02, 2021 4:12pm January 02, 2021 7:22pm Departed [facility] Emergency Department December 29, 2020 4:23pm December 29, 2020 [facility] October 14, 2020 [...] 10 5:10pm Blood Pressure Systolic 124 100-140 [facility] 2021 5:10pm Blood Pressure Diastolic 69 50-85 [facility] 2021 5:10pm
--- OUTSIDE RECORDS SUMMARY | 2022-11-20 17:38 | XMS_ITS | Continuity of Care Document ---
Author Name [facility] Address [address] [place] [id number] Organization [facility] Address [address] [place] [address] Care Team Providers Care Retail Sales Merchandiser Development Name Role Phone Out of Town, Provider [...] comment No comparison data [place] [facility] Microcytic hypochromic anemia, consistent with iron deficiency. Smear reviewed by pathologist for quality improvement engineer. Glenroy Mello MD 10/15/20 Prothrombin Time [...] be used to monitor LMWH therapy. Contact [facility] for monitoring information. Urine Color January 02, 2021 6:04pm Lauren Urine Clarity January 02, 2021 6:04pm very cloudy Urine pH January 02, 2021 6:04pm 6.0 Urine Specific [place] January 02, 2021 6:04pm 1.015 Urine Protein [...] Urine Culture Ur,Clean Catch No results entered [facility] 2020 7:39pm Routine Culture Umbilicus Staphylococcus Aureus-Mrsa March 16, 2021 10:27am March 20, 2021 8:34am Gram Stain Umbilicus No results entered March 16, 2021 10:27am Blood Culture Blood NO GROWTH AFTER 5 DAYS March 18, 2021 9:10pm Advance Directives Advance Directive Response Recorded Date/ Time Do we have a copy on file here [place] [facility] No October 14, 2020 11:22pm Does patient have an Advanced Directive? No October 14, 2020 11:22pm Pt has a Living Will? No October 14 11:22pm Pt has a Power of Clerical Grader? No October 14, 2020 11:22pm Chief Complaint [...] Date Discharge/Departure Date Attending Provider Departed Emergency [facility] Emergency Department June 27, 2021 2:30pm June 27, 2021 4:01pm Departed Emergency [facility] Emergency Department March 27, 2021 11:49am March 27, 2021 2:32pm Departed Emergency [facility] Emergency Department March 20, 2021 2:33pm March 20, 2021 6:25pm Departed Emergency [facility] Emergency Department March 18, 2021 6:11pm March 18, 2021 9:19pm Departed Emergency [facility] Emergency Department March 16, 2021 3:28pm March 16, 2021 10:43pm Departed Emergency [facility] Emergency Department January 29, 2021 8:55pm January 29, 2021 11:08pm Departed Emergency [facility] January 21, 2021 2:24pm January 21, 2021 4:51pm Departed Emergency [facility] Emergency Department January 07, 2021 4:48pm January 07, 2021 6:55pm Departed Emergency [facility] Emergency Department January 02, 2021 4:12pm January 02, 2021 7:22pm Departed Emergency [facility] Emergency Department December 29, 2020 4:23pm December 29, 2020 7:13pm Departed Emergency [facility] Emergency Department October 14, 2020 10:48pm [...]
--- OUTSIDE RECORDS SUMMARY | 2022-11-20 17:38 | XMS_ITS | Continuity of Care Document ---
Author Name [facility] Address [address] [place] [id number] Organization [facility] Address [address] [place] [address] Care Team Providers Care Airplane Refueler Name Role Phone PCP, of Choice Primary [...] MG ORAL DAILY 14 October 15, 2020 Active Gabapentin 200 MG ORAL DAILY January 02 Active Ondansetron 4 MG ORAL Q6H PRN For n ausea and vomiting January 02, 2021 Active Discontinued Medications Medication Dose Units Route Sig Qty Start Date Di scontinued Date Status Hydrocodone-Qamar taminophen December 29, 2020 January 07, [...] Hydrox [Pepcid Complete] 1 TAB ORAL DAILY January 08, 2021 January 29, 2021 Discontinued [...] nactive Procedures Procedure Date Status Urine Culture January 02, [address] Abd Pel w/ Contrast January 02, 2021 completed Relevant Diagnostic Tests and/or Laboratory Data Laboratory Results Test Date/Time Result Interp. Ref. Range Result Co mment White Blood Count January 29, 2021 9:57pm 5.85 1000/mm3 4.8-10.8 Red Blood Count January 29, 2021 9:57pm 4.53 M/mm3 4.20-5.40 Hemoglobin January 29, 2021 9:57pm 10.4 g/dL Low 12.0-16.0 Hematocrit January 29, 2021 9:57pm 33.7 % Low 37-47 Mean Corpuscular Volume January 29, 2021 9:57pm 74.4 fL Low 81.0-99.0 Mean Corpuscular Hemoglobin January 29, 2021 9:57pm 23.0 pg Low 27-31 Mean Corpuscular Hemoglobin Concent January 29, 2021 9:57pm 30.9 g/dL Low 33-37 Red Cell Distribution Width January 29, 2021 9:57pm 17.6 % High 11.5-14.5 Platelet Count January 29, 2021 9:57pm 248 1000/mm3 140-440 Mean Platelet Volume January 29, 2021 9:57pm 10.6 fL High 7.4-10.4 Neutrophils (%) (Auto) January 29, 2021 9:57pm 57.7 % 40.0-72.0 Lymphocytes (%) (Auto) January 29, 2021 9:57pm 32.6 % 17-45 Monocytes (%) (Auto) January 29, 2021 9:57pm 6.5 % 3-11 Eosinophils (%) (Auto) January 29, 2021 9:57pm 1.7 % 0-3 Basophils (%) (Auto) January 29, 2021 9:57pm 1.2 % High 0-1 Immature Granulocyte % (Auto) January 29, 2021 9:57pm 0.3 % 0-1 Neutrophils # (Auto) January 29, 2021 9:57pm 3.37 1000/mm3 1.4-6.5 Lymphocytes # (Auto) January 29, 2021 9:57pm 1.91 1000/mm3 1.2-3.4 Monocytes # (Auto) January 29, 2021 9:57pm 0.38 1000/mm3 0.0-0.8 Eosinophils # (Auto) January 29, 2021 9:57pm 0.10 1000/mm3 0.0-0.7 Basophils # (Auto) January 29, 2021 9:57pm 0.07 1000/mm3 0.0-0.1 Absolute Immature Granulocyte (auto January 29, 2021 9:57pm 0.0 0-1 Differential Method January 29, 2021 9:57pm Automated Differential Pathologist's Review October 14, 2020 11:38pm See comment No comparison data on file at [facility]. Microcytic hypochromic anemia, consistent with iron deficiency. Smear reviewed by pathologist for quality specialist. Glenroy Mello MD 10/15/20 Prothrombin Time October [...] be used to monitor LMWH therapy. Contact [facility] for monitoring information. Urine Color January 02, 2021 6:04pm Lauren Urine Clarity January 02, 2021 6:04pm very cloudy Urine pH January 02, 2021 6:04pm 6.0 Urine Specific [place] January 02, 2021 6:04pm 1.015 Urine Protein [...] 6:04pm Large (3+) JOEL/uL High Urine RBC January 02, 2021 6:04pm Tntc /hpf High Urine WBC January 02, 2021 6:04pm 3-5 /hpf Urine Squamous Epithelial Cells January 02, 2021 6:04pm 1+ /hpf Urine Bacteria January 02, 2021 6:04pm None seen /hpf Urine Mucus October 14, 2020 11:45pm Present Urine Culture Done January 02, 2021 6:04pm Yes URINE SPECIMEN CULTURED Urine Test January 02, 2021 6:04pm Negative Sodium Level January 29, 2021 9:57pm 137 mmol/L 137-145 Potassium Level January 29, 2021 9:57pm 3.5 mmol/L Low 3.6-5.0 Chloride Level January 29, 2021 9:57pm 99 mmol/L 98-107 Carbon Dioxide Level January 29, 2021 9:57pm 27 mmol/L 22-30 Anion Gap January 29, 2021 9:57pm 11 7-16 Blood Urea Nitrogen January 29, 2021 9:57pm 13 mg/dL 7-17 Creatinine January 29, 2021 9:57pm 0.84 mg/dL 0.52-1.04 Glomerular Filtration Rate Calc January 29, 2021 9:57pm > 60 mL/min 60.0- Glucose Level January 29, 2021 9:57pm 92 mg/dL 70-100 Calcium Level January 29, 2021 9:57pm 9.8 mg/dL 8.4-10.2 Calcium Adjusted for Albumin January 07, 2021 5:35pm 9.3 mg/dL 8.4-10.2 Iron Level October 14, 2020 11:38pm 36 ug/dL Low 37-170 Total Bilirubin January 07, 2021 5:35pm 0.4 mg/dL 0.2-1.3 Aspartate Amino Transf (AST/SGOT) January 07, 2021 5:35pm 38 U/L High 14-36 Alanine Aminotransferase (ALT/SGPT) January 07, 2021 5:35pm 23 U/L As of 09/13/19, the Reference Range for ALT/SGPT for adult patients has been updated. The Reference Range for ALT/SGPT has not been established for patients <18 years of age. Total Protein January 07, 2021 5:35pm 7.7 g/dL 6.3-8.2 Albumin January 07, 2021 5:35pm 4.7 g/dL 3.5-5.0 Alkaline Phosphatase January 07, 2021 5:35pm 58 U/L 38-126 Lipase October 14, 2020 11:38pm [...] have a copy on file here at [facility]? No October 14, 2020 11:22pm Does patient have an Advanced Directive? No October 14, 2020 11:22pm Pt has a Living Will? No October 14 11:22pm Pt has a Power of [place] Operator? No October 14, 2020 11:22pm Chief Complaint and Reason for Visit Encounter Admit Date Chief Complaint Reason for V isit Departed Emergency January 29, 2021 8:55pm [facility] Discharge Instructions Additional Discharge Instructions You we re seen in the ED for abdominal pain. Your lab work did not show any acute changes. Your CT scan from [facility] showed a left hemorrhagic ovarian cyst which is likely the cause of symptoms. You can treat the pain with ibuprofen 400 mg every 6 hours as needed. You can alternate with tylenol 500 mg every 6 hours if needed. You can take the ONDANSETRON as needed for nausea and vomiting. Follow up closely with your Acid Concentrator to discuss your symptoms and work up so far. Return to the ED for worsening pain, heavy bleeding, dizziness or passing out, or any new or concerning symptoms. Instruction/Education Provided [facility] ([facility]) [facility] [...] MG ORAL DAILY 14 October 15, 2020 Active Hydrocodone-A cetaminophen December 29, 2020 Discontinued Cefdinir 300 MG ORAL TWICE A DAY January 21, 2021 Discontinued Tramadol 50 MG ORAL Q8H PRN For pain 10 January 21, 2021 Discontinued Gabapentin 200 MG ORAL DAILY t 2020 Active Hydrocodone-A cetaminophen 1 TAB ORAL Q6H PRN For pain 9 January 02, 2021 Discontinued Ondansetron 4 MG ORAL Q6H PRN For nausea and vomiting 10 January 02, 2021 Active Famotidine-Ca Carb-Mag Hydrox 1 TAB ORAL DAILY 30 January 08, 2021 Discontinued Dicyclomine 10 MG ORAL .q6 prn 30 2020 Discontinued Encounters Encounter Facility Location Admit/Visit Date Discharge/Departure Date Attending Provider Departed [facility] Emergency Department January 29, 2021 8:55pm January 29, 2021 11:08pm Departed Emergency [facility] January 21, 2021 2:24pm [facility] 21, [facility] 07, 2021 4:48pm January 07, 2021 6:55pm Departed Emergency [facility] Emergency Department January 02, 2021 4:12pm January 02, 2021 7:22pm Departed Emergency [facility] Emergency Department December 29, 2020 4:23pm December 29, 2020 7:13pm Departed Emergency [facility] Emergency Department October 14, 2020 10:48pm October 15, 2020 12:54am Functional Status Query Response Date Recorded Comment Comprehension Ability Understands Concepts January 132020 9:35pm Mood/Behavior Anxious January 29, 2021 9:35pm Query Response Date Recorded Comment Living Situation Home With Significant Other January 29, 2021 11:03pm Immunizations No known immunizations. Plan of Care Instructions Ovarian Cyst (DC) Social History Query Response Date Recorded Comment Alcohol Use Yes January 29, 2021 10:28pm Alcohol type hard liquor January 29, 2021 10:28pm Smoking Status Never smoker January 29, 2021 10:28pm Substance/Street Drug Use Yes January 29 10:28pm alcohol intake frequency a few times a month January 29, 2021 10:28pm substance use type marijuana January 29, 2021 10: 28pm Query Response Start Date Stop Date Smoking Status Never smoker Vital Signs Vital Reading Result Reference Range Collection Date/Time Weight 95.254 kg January 29 8:58pm Temperature 98 F 97.6 F-99.6 F January 29, 2021 8:58pm Pulse 67 BPM 60-100 January 29 11:00pm Respiration 17 RPM 12-24 January 29 11:00pm Pulse Oximetry 97 % 95-100 January 29, 2021 11:00pm Blood Pressure Systolic 93 100-140 Sept emb 2020 11:00pm Blood Pressure Diastolic 64 50-85 Sep [facility] 2020 11:00pm
--- OUTSIDE RECORDS SUMMARY | 2022-11-20 17:38 | XMS_ITS | Continuity of Care Document ---
Author Name [facility] Address [address] [place] [id number] Organization [facility] Address [address] [place] [address] Care Team Providers Care Warehouseman Name Role Phone PCP, of Choice Primary [...] comment No comparison data on file at [facility]. Microcytic hypochromic anemia, consistent with iron deficiency. Smear reviewed by pathologist for water quality specialist. Glenroy Mello MD 10/15/20 Prothrombin [...] be used to monitor LMWH therapy. Contact [facility] for monitoring information. Urine Color January 02, 2021 6:04pm Lauren Urine Clarity January 02, 2021 6:04pm very cloudy Urine pH January 02, 2021 6:04pm 6.0 Urine Specific [place] January 02, 2021 6:04pm 1.015 Urine Protein [...] Ur,Clean Catch No results entered [facility] 2020 7:39pm Routine Culture Umbilicus Staphylococcus Aureus-Mrsa March 16, 2021 10:27am March 20, 2021 8:34am Gram Stain Umbilicus No results entered March 16, 2021 10:27am Blood Culture Blood NO GROWTH AFTER 5 DAYS March 18, 2021 9:10pm Advance Directives Advance Directive Response Recorded Date/ Time Do we have a copy on file here at [facility]? No October 14, 2020 11:22pm Does patient have an Advanced Directive? No October 14, 2020 11:22pm Pt has a Living Will? No October 14 11:22pm Pt has a Power of Pricing Specialist? No October 14, 2020 11:22pm Chief Complaint and Reason for Visit Encounter Admit Date Chief Complaint Reason for V isit Departed Emergency September 23, 2021 3:02pm abdominal compl [facility] Hospital Discharge Instructions Additional Discharge Instructions Return tomorrow morning for ultrasound of your pelvis with a full bladder at 10 AM. Your test here was normal and your urine showed some mild dehydration. We strongly encourage you to keep in contact with your change advisor at the [facility]. It is important to keep a [...] 27, 2021 2:30pm June 27, [facility], 2021 11:49am March 27, 2021 2:32pm Departed [facility] Emergency Department March 20, 2021 2:33pm March 20, 2021 6[facility] March 18, 2021 6:11pm March 18, 2021 9:19pm Departed [facility] Emergency Department March 16, 2021 3:28pm March 16, 2021 10:43pm Departed [facility] Emergency Department January 29, 2021 8:55pm January 29, 2021 [facility] January 21, 2021 2:24pm January 21, 2021 4:[facility] January 07, 2021 4:48pm January 07, 2021 6:[facility] January 02, 2021 4:12pm January 02, 2021 7:22[facility] December 29, 2020 4:23pm December 29, 2020 7:13[facility] October 14, 2020 [...]
--- OUTSIDE RECORDS SUMMARY | 2022-11-20 17:38 | XMS_ITS | Continuity of Care Document ---
Author Name [facility] Address [address] [place] [address] Organization [facility] Address [address] [place] [address] Care Team Providers Care Credit Collections Rep Name Role Phone PCP, of Choice Primary [...] 325 MG ORAL DAILY October 15, 2020 Active Cefdinir 300 MG ORAL TWICE A DAY January Active Tramadol 50 MG ORAL Q8H PRN For pain 10 2020 Active Gabapentin 200 MG ORAL DAILY January 02 21 Active Ondansetron 4 MG ORAL Q6H PRN For n ausea and vomiting January 02, 2021 Active Famotidine-Ca Carb-Mag Hydrox [Pepcid Complete] 1 TAB ORAL DAILY January 08 2 021 Active Discontinued Medications Medication Dose Units Route Sig Qty Start Date Di scontinued Date Status Hydrocodone-Acet aminophen December 29, 2020 January 07, 2021 Discontinued Hydrocodone-Acet aminophen 1 TAB ORAL Q6H PRN For pain 9 January 02, 2021 January 07, 2021 Discontinued Dicyclomine 10 MG ORAL .q6 prn 30 January 08, 2021 January 21, 2021 Discontinued Problem List Active Problems Medical Problem Onset Date Status Pain, dental Active Inactive/Resolved Problems Medical Problem Onset Date Status Functional abdominal pain syndrome Inactive Gastritis Inactive Pain, dental Inactive Iron deficiency anemia Inactive Abdominal pain Inactive Abdominal pain Inactive Procedures Procedure Date Status Urine Culture January 02, [address] Abd Pel w/ Contrast January 02, 2021 completed Relevant Diagnostic Tests and/or Laboratory Data Laboratory Results Test Date/Time Result Interp. Ref. Range Result Co mment White Blood Count January 07, 2021 5:35pm 5.33 1000/mm3 4.8-10.8 Red Blood Count January 07, 2021 5:35pm 4.85 M/mm3 4.20-5.40 Hemoglobin January 07, 2021 5:35pm 10.8 g/dL Low 12.0-16.0 Hematocrit January 07, 2021 5:35pm 36.3 % Low 37-47 Mean Corpuscular Volume January 07, 2021 5:35pm 74.8 fL Low 81.0-99.0 Mean Corpuscular Hemoglobin January 07, 2021 5:35pm 22.3 pg Low 27-31 Mean Corpuscular Hemoglobin Concent January 07, 2021 5:35pm 29.8 g/dL Low 33-37 Red Cell Distribution Width January 07, 2021 5:35pm 18.6 % High 11.5-14.5 Platelet Count January 07, 2021 5:35pm 240 1000/mm3 140-440 Mean Platelet Volume January 07, 2021 5:35pm 11.3 fL High 7.4-10.4 Neutrophils (%) (Auto) January 07, 2021 5:35pm 51.4 % 40.0-72.0 Lymphocytes (%) (Auto) January 07, 2021 5:35pm 37.7 % 17-45 Monocytes (%) (Auto) January 07, 2021 5:35pm 6.0 % 3-11 Eosinophils (%) (Auto) January 07, 2021 5:35pm 3.2 % High 0-3 Basophils (%) (Auto) January 07, 2021 5:35pm 1.5 % High 0-1 Immature Granulocyte % (Auto) January 07, 2021 5:35pm 0.2 % 0-1 Neutrophils # (Auto) January 07, 2021 5:35pm 2.74 1000/mm3 1.4-6.5 Lymphocytes # (Auto) January 07, 2021 5:35pm 2.01 1000/mm3 1.2-3.4 Monocytes # (Auto) January 07, 2021 5:35pm 0.32 1000/mm3 0.0-0.8 Eosinophils # (Auto) January 07, 2021 5:35pm 0.17 1000/mm3 0.0-0.7 Basophils # (Auto) January 07, 2021 5:35pm 0.08 1000/mm3 0.0-0.1 Absolute Immature Granulocyte (auto January 07, 2021 5:35pm 0.0 0-1 Differential Method January 07, 2021 5:35pm Automated Differential Pathologist's Review October 14, 2020 11:38pm See comment No comparison data on file at [facility]. Microcytic hypochromic anemia, consistent with iron deficiency. Smear reviewed by pathologist for quality assurance monitor. Glenroy Mello MD 10/15/20 Prothrombin Time October [...] be used to monitor LMWH therapy. Contact [facility] Pharm[facility] for monitoring information. Urine Color January 02, 2021 6:04pm Lauren Urine Clarity January 02, 2021 6:04pm very cloudy Urine pH January 02, 2021 6:04pm 6.0 Urine Specific Loman January 02, 2021 6:04pm 1.015 Urine Protein [...] 02, 2021 6:04pm Negative Sodium Level January 07, 2021 5:35pm 140 mmol/L 137-145 Potassium Level January 07, 2021 5:35pm 3.7 mmol/L 3.6-5.0 Chloride Level January 07, 2021 5:35pm 103 mmol/L 98-107 Carbon Dioxide Level January 07, 2021 5:35pm 27 mmol/L 22-30 Anion Gap January 07, 2021 5:35pm 10 7-16 Blood Urea Nitrogen January 07, 2021 5:35pm 13 mg/dL 7-17 Creatinine January 07, 2021 5:35pm 0.79 mg/dL 0.52-1.04 Glomerular Filtration Rate Calc January 07, 2021 5:35pm > 60 mL/min 60.0- Glucose Level January 07, 2021 5:35pm 105 mg/dL High 70-100 Calcium Level January 07, 2021 5:35pm 9.6 mg/dL 8.4-10.2 Calcium Adjusted for Albumin January [...] have a copy on file here at [facility]? No October 14, 2020 11:22pm Does patient have an Advanced Directive? No October 14, 2020 11:22pm Pt has a Living Will? No October 14 11:22pm Pt has a Power of Outside Residential Sales Professional? No October 14, 2020 11:22pm Hospital Discharge Instructions Additional Discharge Instructions will t reat for presumed infection with cefdinir twice daily for 10 days. This has been called in. Follow up with [facility] next week as planned. Tramadol along with tylenol as needed for severe pain. Caution as this will cause additional sedation with the other medications you are taking. Only take if needed. No Instructions/Education Pr ovided Hospital Discharge Medications [...] ORAL TWICE A DAY January 21, 2021 Active Tramadol 50 MG ORAL Q8H PRN For pain 10 January 21, 2021 Active Gabapentin 200 MG ORAL DAILY Decus t 2020 Active Hydrocodone-A cetaminophen 1 TAB ORAL Q6H PRN For pain January 02, 2021 Discontinued Ondansetron 4 MG ORAL Q6H PRN For nausea and vomiting January 02, 2021 Active Famotidine-Ca Carb-Mag Hydrox 1 TAB ORAL DAILY 30 January 08, 2021 Active Dicyclomine 10 MG ORAL .q6 prn 30 st 2020 Discontinued Encounters Encounter Facility Location Admit/Visit Date Discharge/Departure Date Attending Provider Departed Emergency [facility] January 21, 2021 2:24pm January 21, 2021 4:51pm Departed Emergency [facility] Emergency Department January 07, 2021 4:48pm January 07, 2021 6:55pm Departed Emergency [facility] Emergency Department January 02, 2021 4:12pm January 02, 2021 7:22pm Departed Emergency [facility] Emergency Department December 29, 2020 4:23pm December 29, 2020 7:13pm Departed Emergency [facility] Emergency Department October 14, 2020 10:48pm October 15, 2020 12:54am Functional Status Query Response Date Recorded Comment Comprehension Ability Understands Concepts January 07, 2021 5:40pm Mood/Behavior Anxious January 07, 2021 5:40pm Query Response Date Recorded Comment Living Situation Home With Family January 21, 2021 3:27pm Immunizations No known immunizations. Plan of Care No Known Plan of Care Information Social History Query Response Date Recorded Comment Alcohol Use Yes January 21, 2021 3:27pm Alcohol type hard liquor January 21, 2021 3:27pm Smoking Status Never smoker January 21, 2021 3:27pm Substance/Street Drug Use Yes January 21 3:27pm alcohol intake frequency a few times a month January 21, 2021 3:27pm substance use type marijuana January 21, 2021 3:27 pm Query Response Start Date Stop Date Smoking Status Never smoker Vital Signs Vital Reading Result Reference Range Collection Date/Time Weight 90.718 kg January 21 3:08pm Temperature 98.5 F 97.6 F-99.6 F January 21 3:08pm Pulse 82 BPM 60-100 January 21 3:08pm Respiration 18 RPM 12-January 21 3:08pm Pulse Oximetry 97 % 95-100 January 21, 2021 3:08pm Blood Pressure Systolic 118 100-140 [facility] 2020 3:08pm Blood Pressure Diastolic 84 50-85 [facility] 2020 3:08pm
--- OUTSIDE RECORDS SUMMARY | 2022-11-20 17:38 | XMS_ITS | Continuity of Care Document ---
Author Name [facility] Address [address] [place] [id number] Organization [facility] Address [address] [place] [address] Care Team Providers Care Security System Engineer Name Role Phone Yolanda Dial Roundsteve Physician PCP, of Choice Primary Care Physician Unavailab [...] Active Fluticasone Propion-Salmeterol [Advair Hfa] INHALATION Novemb 2020 Active Tizanidine 4 MG ORAL As [...] Differential Method August 10, 2021 3:14pm Automated Urine Color January 02, 2021 6:04pm Lauren Urine Clarity January 02, 2021 6:04pm very cloudy Urine pH January 02, 2021 6:04pm 6.0 5.0-8.0 Urine Specific Howard January 02, 2021 6:04pm 1.015 1.001-1.035 Urine Protein January 02, 2021 6:04pm 100 (2+) mg/dL High NEGATIVE Urine Glucose (UA) January 02, 2021 6:04pm Normal mg/dL NORMAL Urine Ketones January 02, 2021 6:04pm Negative NEGATIVE Urine Nitrite January 02, 2021 6:04pm Negative Negative Urine Bilirubin January 02, 2021 6:04pm Negative mg/dL NEGATIVE Urine Urobilinogen January 02, 2021 6:04pm Normal mg/dL NORMAL Urine Leukocyte Esterase January 02, 2021 6:04pm Moderate (2+) WBC/uL High NEGATIVE Urine Blood January 02, 2021 6:04pm Large (3+) JOEL/uL High NEGATIVE Urine RBC June 27, 2021 3:10pm 0-2 /hpf 0-2 Urine WBC June 27, 2021 3:10pm None seen /hpf 0-5 Urine Squamous Epithelial Cells June 27, 2021 3:10pm 2+ /hpf Urine Bacteria June 27, 2021 3:10pm 1+ /hpf High NONE SEEN Urine Mucus June 27, 2021 3:10pm Present Urine Culture Done June 27, 2021 3:10pm No CULTURE NOT INDICATED. Urine Test January 02, 2021 6:04pm Negative NEGATIVE Sodium Level August 10, 2021 3:14pm 140 [...] August 10, 2021 3:14pm > 60 mL/min >60.0 Glucose Level August 10, 2021 3:14pm 85 mg/dL 70-100 Calcium Level August 10, 2021 3:14pm 9.2 mg/dL 8.4-10.2 Calcium Adjusted for Albumin August 07, 2021 1:30pm 9.2 mg/dL 8.4-10.2 Total Bilirubin August 07, 2021 1:30pm 0.6 mg/dL 0.2-1.3 Aspartate Amino Transf (AST/SGOT) August 07, 2021 1:30pm 48 U/L High 14-36 Alanine Aminotransferase (ALT/SGPT) August 07, 2021 1:30pm 36 U/L High <35 As of 09/13/19, the Reference Range for [...] August 07, 2021 1:30pm 64 U/L 23-300 Microbiology Results Procedure Source Result Collection Date/Time Result Date/Time Urine Culture Ur,Clean Catch No results entered January 02, 2021 6:40pm Urine Culture Ur,Clean Catch No results entered [facility] 2020 7:39pm Routine Culture Umbilicus Staphylococcus Aureus-Mrsa March 16, 2021 10:27am March 20, 2021 8:34am Gram Stain Umbilicus No results entered March 16, 2021 10:27am Blood Culture Blood NO GROWTH AFTER 5 DAYS March 18, 2021 9:10pm Chief Complaint and Reason for Visit Encounter Admit Date Chief Complaint Reason for V barry Departed Emergency September 23, 2021 3:02pm abdominal compl aint Hospital Discharge Instructions Additional Discharge Instructions Return tomorrow morning for ultrasound of your pelvis with a full bladder at 10 AM. Your test here was normal and your urine showed some mild dehydration. We strongly encourage you to keep in contact with your government gauger at the [facility]. It is important to keep a [...] Location Admit/Visit Date [facility] 3:[facility] September 23, 2021 7:35pm Departed [facility] Emergency Department August 26, 2021 5:22pm August 26, 2021 7:15pm Departed [facility] Emergency Department August 10, 2021 2:19pm August 10, 2021 5:11pm Departed Emergency [facility] Emergency Department August 07, 2021 11:58am August 07, 2021 5:15pm Departed Emergency [facility] Emergency Department June 27, 2021 2:30pm June 27, 2021 4:01pm Departed Emergency [facility] Emergency Department March 27, 2021 11:49am March 27, 2021 2:32pm Departed Emergency [facility] Emergency Department March 20, 2021 2:33pm March 20, 2021 6:25pm Departed Emergency [facility] Emergency Department March 18, 2021 6:11pm March 18, 2021 9:19pm Departed Emergency [facility] Emergency Department March 16, 2021 3:28pm March 16, 2021 10:43pm Departed Emergency [facility] Emergency Department January 29, 2021 8:55pm January 29, 2021 11:08pm Departed Emergency [facility] January 21, 2021 2:24pm January 21, 2021 4:51pm Departed Emergency [facility] Emergency Department January 07, 2021 4:48pm January 07, 2021 6:55pm Departed Emergency [facility] Emergency Department January 02, 2021 4:12pm January 02, 2021 7:22pm Departed Emergency [facility] Emergency Department December 29, 2020 4:23pm December 29, 2020 7:13pm Functional Status Query Response Date Recorded Comment [...]
--- OUTSIDE RECORDS SUMMARY | 2022-11-20 17:38 | XMS_ITS | Continuity of Care Document ---
Author Name [facility] Address [address] [place] [address] Organization [facility] Address [address] [place] [address] Care Team Providers Care Winding Rack Operator Name Role Phone PCP, of Choice Primary [...] ORAL DAILY 14 October 15, 2020 Active Problem List Inactive/Resolved Problems Medical Problem Onset Date Status Gastritis Inactive Iron deficiency anemia Inactive Procedures No known history of procedures. Relevant [...] Differential Method October 14, 2020 11:38pm Automated Differential Pathologist's Review October 14, 2020 11:38pm See comment No [place] [facility] Microcytic hypochromic anemia, consistent with iron deficiency. Smear reviewed by pathologist for quality control assessor. Glenroy Mello MD 10/15/20 Prothrombin Time October [...] [facility] [place] [facility] [place]. Urine RBC October [...] October 14, 2020 11:38pm 9.2 mg/dL 8.4-10.2 Iron Level October 14, 2020 11:38pm 36 ug/dL Low 37-170 Total Bilirubin October 14, 2020 11:38pm 0.3 [...] falsely decreased in patients who consume Biotin. Advance Directives Advance Directive Response Recorded Date/ Time Do we have a copy on file here [place] [facility] No October 14, 2020 11:22pm Does patient have an Advanced Directive? No October 14, 2020 11:22pm Pt has a Living Will? No October 14 11:22pm Pt has a Power of Color Drum Worker? No October 14, 2020 11:22pm Chief [...] acutely worsening/new symptoms. Stay well-hydrated. Instruction/Education Provided Anemia Ca used by Low Iron, Adult (DC) Gastritis (DC) Hospital Discharge Medications Medication Dose [...] ORAL DAILY 14 October 15, 2020 Active Encounters Encounter Facility Location Admit/Visit Date Discharge/Departure Date Attending Provider Departed Emergency [facility] Emergency Department October 14, 2020 10:48pm October 15, 2020 12:54am Functional Status Query Response Date Recorded Comment Comprehension Ability Understands Concepts October 14 11:00pm Mood/Behavior Appropriate October 14, 2020 11:00pm Query Response Date Recorded Comment Living Situation Home October 15, 2020 12:54am Immunizations No known immunizations. Plan of Care Instructions Anemia Caused by Low Iron, A dult (DC) Gastritis (DC) Social History Query Response Date [...]
--- OUTSIDE RECORDS SUMMARY | 2022-11-20 17:38 | XMS_ITS | Continuity of Care Document ---
Author Name [facility] Address [address] [place] [id number] [facility] Address [address] [place] [id number] Care Team Providers Care Workplace Relations Adviser Name Role Phone Out of Town, Provider [...] deficiency. Smear reviewed by pathologist for quality rn. Glenroy Mello MD 10/15/20 Prothrombin Time October [...] January 02, 2021 6:04pm 6.0 Urine Specific Onward January 02, 2021 6:04pm 1.015 Urine Protein [...] Urine Culture Ur,Clean Catch No results entered [facility] 2020 7:39pm Routine Culture Umbilicus [...] 14 11:22pm Pt has a Power of Run Boat Operator? No October 14, 2020 11:22pm Chief [...] Admit/Visit Date Discharge/Departure Date Attending Provider Departed [facility] Emergency Department August 10, 2021 2:19pm August 10, 2021 5:11pm Departed [facility] Emergency Department August 07, 2021 11:58am August 07, [facility], [facility] 2[facility]30[facility] June 27, [facility] March 27, 2021 11:49am March 27, 2021 [facility] 20, 2021 2:33pm March 20, 2021 [facility] 18, 2021 6:11pm March 18, 2021 [facility] March 16, 2021 3:28pm March 16, 2021 [facility] January 29, 2021 8:55pm January 29, 2021 [facility] January 21, 2021 2:24pm January 21, 2021 [facility] January 07, 2021 4:48pm January 07, 2021 [facility] January 02, 2021 4:12pm January 02, 2021 7:22pm Departed [facility] Emergency Department December 29, 2020 4:23pm December 29, 2020 [facility] October 14, 2020 10:48pm [...] 10 5:10pm Blood Pressure Systolic 124 100-140 [facility] 2021 5:10pm Blood Pressure Diastolic 69 50-85 [facility] 2021 5:10pm
--- OUTSIDE RECORDS SUMMARY | 2022-11-20 17:38 | XMS_ITS | Continuity of Care Document ---
Author Name [facility] Address [address] [place] [id number] [facility] Address [address] [place] [address] Care Team Providers Care Platform Engineer Name Role Phone Out of Town, Provider [...] comment No comparison data on file at [facility]. Microcytic hypochromic anemia, consistent with iron deficiency. Smear reviewed by pathologist for principal quality engineer. Glenroy Mello MD 10/15/20 Prothrombin [...] be used to monitor LMWH therapy. Contact [facility] for monitoring information. Urine Color January 02, 2021 6:04pm Lauren Urine Clarity January 02, 2021 6:04pm very cloudy Urine pH January 02, 2021 6:04pm 6.0 Urine Specific Steen January 02, 2021 6:04pm 1.015 Urine Protein [...] Urine Culture Ur,Clean Catch No results entered [facility] 2020 7:39pm Routine Culture Umbilicus Staphylococcus Aureus-Mrsa March 16, 2021 10:27am March 20, 2021 8:34am Gram Stain Umbilicus No results entered March 16, 2021 10:27am Blood Culture Blood NO GROWTH AFTER 5 DAYS March 18, 2021 9:10pm Advance Directives Advance Directive Response Recorded Date/ Time Do we have a copy on file here at [facility]? No October 14, 2020 11:22pm Does patient have an Advanced Directive? No October 14, 2020 11:22pm Pt has a Living Will? No October 14 11:22pm Pt has a Power of Ordnance Truck Installation Supervisor? No October 14, 2020 11:22pm Chief [...] Departed Emergency [facility] Emergency Department June 27, 2021 2:30pm June 27, 2021 4:01pm Departed Emergency [facility] Emergency Department March 27, 2021 11:49am March 27, 2021 2:32pm Departed Emergency [facility] Emergency Department March 20, 2021 2:33pm March 20, 2021 6:25pm Departed Emergency [facility] Emergency Department March 18, 2021 6:11pm March 18, 2021 9:19pm Departed Emergency [facility] Emergency Department March 16, 2021 3:28pm March 16, 2021 10:43pm Departed Emergency [facility] Emergency Department January 29, 2021 8:55pm January 29, 2021 11:08pm Departed Emergency [facility] January 21, 2021 2:24pm [...]
--- OUTSIDE RECORDS SUMMARY | 2022-11-20 17:38 | XMS_ITS | Continuity of Care Document ---
Author Name [facility] Address [address] [place] [id number] Organization [facility] Address [address] [place] [address] Care Team Providers Care Organizational Development Consultant Name Role Phone Out of Town, Provider [...] Date Status Pelvic pain Active Diarrhea Active Hx of endometriosis Active Nausea & vomiting Active Inactive/Resolved Problems Medical Problem Onset Date Status Abdominal pain, RLQ Inactive Ovarian cyst Inactive Pelvic pain Inactive Functional abdominal pain syndrome Inactive Diarrhea Inactive Gastritis Inactive MRSA (methicillin resistant Staphylococcus aureu s) infection Inactive Post-operative pain Inactive Pain, dental Inactive Pain, dental Inactive Vaginal bleeding Inactive Iron deficiency anemia Inactive Hx of endometriosis Inactive Abdominal pain Inactive Abdominal pain Inactive Abdominal pain Inactive Abdominal pain Inactive Endometriosis Inactive Constipation Inactive Vomiting Inactive Hemorrhagic cyst of left ovary I nactive Procedures Procedure Date Status ED US Abdominal Limited August 10, [address] Abd Pel w/ Contrast August 07, [...] No comparison data on file at [facility] Microcytic hypochromic anemia, consistent with iron deficiency. Smear reviewed by pathologist for quality review trainer. Glenroy Mello MD 10/15/20 Prothrombin Time October [...] used to monitor LMWH therapy. Contact [facility] Pharm[facility] for monitoring information. Urine Color January 02, 2021 6:04pm Lauren Urine Clarity January 02, 2021 6:04pm very cloudy Urine pH January 02, 2021 6:04pm 6.0 Urine Specific [employer] January 02, 2021 6:04pm 1.015 Urine Protein [...] Urine Culture Ur,Clean Catch No results entered [facility] 2020 7:39pm Routine Culture Umbilicus Staphylococcus Aureus-Mrsa March 16, 2021 10:27am March 20, 2021 8:34am Gram Stain Umbilicus No results entered March 16, 2021 10:27am Blood Culture Blood NO GROWTH AFTER 5 DAYS March 18, 2021 9:10pm Advance Directives Advance Directive Response Recorded Date/ Time Do we have a copy on file here at [facility] No October 14, 2020 11:22pm Does patient have an Advanced Directive? No October 14, 2020 11:22pm Pt has a Living Will? No October 14 11:22pm Pt has a Power of System Configuration Specialist? No October 14, 2020 11:22pm Chief [...] Admit/Visit Date Discharge/Departure Date Attending Provider Departed [facility] Emergency Department August 10, 2021 2:19pm August 10, 2021 5:11pm Departed [facility] Emergency Department August 07, 2021 11:58am August 07, 2021 5:15pm Departed [facility] Emergency Department June 27, 2021 2:30pm June 27, 2021 [facility], 2021 11:49am March 27, 2021 [facility] March 20, 2021 2:33pm March 20, 2021 6:[facility] March 18, 2021 6:11pm March 18, 2021 9:19[facility] March 16, 2021 3:28pm March 16, 2021 10:43[facility] January 29, 2021 8:55pm January 29, [facility] January 21, 2021 2:24pm January 21, 2021 4:51[facility] January 07, 2021 4:48pm January 07, 2021 6:55[facility] January 02, 2021 4:12pm January 02, 2021 7:22[facility] December 29, 2020 4:23pm December 29, 2020 7:13[facility] October 14, 2020 [...] 10 5:10pm Blood Pressure Systolic 124 100-140 [facility] 2021 5:10pm Blood Pressure Diastolic 69 50-85 [facility] 2021 5:10pm
--- OUTSIDE RECORDS SUMMARY | 2022-11-20 17:38 | XMS_ITS | Continuity of Care Document ---
Author Name [facility] Address [address] [place] [id number] Organization [facility] Address [address] [place] [address] Care Team Providers Care Fitness Studies Teacher Name Role Phone Out of Town, Provider [...] comment No comparison data on file at [facility]. Microcytic hypochromic anemia, consistent with iron deficiency. Smear reviewed by pathologist for quality assurance advisor. Glenroy Mello MD 10/15/20 Prothrombin Time October [...] be used to monitor LMWH therapy. Contact [facility] Pharmacy for monitoring information. Urine Color January 02, 2021 6:04pm Lauren Urine Clarity January 02, 2021 6:04pm very cloudy Urine pH January 02, 2021 6:04pm 6.0 Urine Specific [place] January 02, 2021 6:04pm 1.015 Urine Protein [...] Urine Culture Ur,Clean Catch No results entered [facility] 2020 7:39pm Routine Culture Umbilicus Staphylococcus Aureus-Mrsa March 16, 2021 10:27am March 20, 2021 8:34am Gram Stain Umbilicus No results entered March 16, 2021 10:27am Blood Culture Blood NO GROWTH AFTER 5 DAYS March 18, 2021 9:10pm Advance Directives Advance Directive Response Recorded Date/ Time Do we have a copy on file here at [facility]? No October 14, 2020 11:22pm Does patient have an Advanced Directive? No October 14, 2020 11:22pm Pt has a Living Will? No October 14 11:22pm Pt has a Power of Caul Dresser? No October 14, 2020 11:22pm Chief Complaint [...] d Dicyclomine 10 MG ORAL .q6 prn st 2020 Discontinue d Oxycodone MG Novemb [...] Location Admit/Visit Date Discharge/[facility]ure Date [facility] 2:19pm August 10, 2021 5:11pm Departed [facility] Emergency Department August 07, 2021 11:58am August 07, 2021 5:[facility] June 27, 2021 2:30pm June 27, 2021 4:01[facility] March 27, 2021 11:49am March 27, 2021 2:[facility] March 20, 2021 2:33pm March 20, 2021 6:[facility] March 18, 2021 6:11pm March 18, 2021 9:[facility] March 16, 2021 3:28pm March 16, 2021 10:[facility] January 29, 2021 8:55pm January 29, [facility] January 21, 2021 2:24pm January 21, 2021 4:51[facility] January 07, 2021 4:48pm January 07, 2021 6:55[facility] January 02, 2021 4:12pm January 02, 2021 7:22[facility] December 29, 2020 4:23pm December 29, 2020 7:13[facility] October 14, 2020 10:48pm [...] 10 5:10pm Blood Pressure Systolic 124 100-140 [facility] 2021 5:10pm Blood Pressure Diastolic 69 50-85 [facility] 2021 5:10pm
--- OUTSIDE RECORDS SUMMARY | 2022-11-20 17:39 | XMS_ITS | Continuity of Care Document ---
Author Name [facility] Address [address] [place] [address] Organization [facility] Address [address] [place] [address] Care Team Providers Care Engineering Operator Name Role Phone Out of Town, [...] comment No comparison data on file at [facility]. Microcytic hypochromic anemia, consistent with iron deficiency. Smear reviewed by pathologist for quality assurance tester. Glenroy Mello MD 10/15/20 Prothrombin Time October [...] be used to monitor LMWH therapy. Contact [facility] Pharmacy for monitoring information. Urine Color January 02, 2021 6:04pm Lauren Urine Clarity January 02, 2021 6:04pm very cloudy Urine pH January 02, 2021 6:04pm 6.0 Urine Specific [place] January 02, 2021 6:04pm 1.015 Urine Protein [...] Urine Culture Ur,Clean Catch No results entered [facility] 2020 7:39pm Routine Culture Umbilicus Staphylococcus Aureus-Mrsa March 16, 2021 10:27am March 20, 2021 8:34am Gram Stain Umbilicus No results entered March 16, 2021 10:27am Blood Culture Blood NO GROWTH AFTER 5 DAYS March 18, 2021 9:10pm Advance Directives Advance Directive Response Recorded Date/ Time Do we have a copy on file here at [facility]? No October 14, 2020 11:22pm Does patient have an Advanced Directive? No October 14, 2020 11:22pm Pt has a Living Will? No October 14 11:22pm Pt has a Power of Goggles Assembler? No October 14, 2020 11:22pm Chief Complaint [...] 8:55pm January 29, 2021 11:08pm Departed Emergency [facility] January 21, 2021 2:24pm January [...]
--- OUTSIDE RECORDS SUMMARY | 2022-11-20 17:39 | XMS_ITS | Continuity of Care Document ---
Author Name [facility] Address [address] [place] [address] Organization [facility] Address [address] [place] [address] Care Team Providers Care Real Estate Processor Name Role Phone Out of Town, Provider [...] Sodium 50 MG ORAL TWICE A DAY [place] 2020 Active Trazodone 100 MG ORAL BEDTIME [...] .q6 prn 30 2020January 21, 2021 Discontinued Ondansetron Hcl [Zofran] 4 MG [...] comment No comparison data on file at [facility]. Microcytic hypochromic anemia, consistent with iron deficiency. Smear reviewed by pathologist for quality assurance technician. Glenroy Mello MD 10/15/20 Prothrombin Time [...] be used to monitor LMWH therapy. Contact [facility] Pharmacy for monitoring information. Urine Color January 02, 2021 6:04pm Lauren Urine Clarity January 02, 2021 6:04pm very cloudy Urine pH January 02, 2021 6:04pm 6.0 Urine Specific [place] January 02, 2021 6:04pm 1.015 Urine Protein [...] Urine Culture Ur,Clean Catch No results entered [facility] 1 7:39pm Routine Culture Umbilicus Staphylococcus Aureus-Mrsa March 16, 2021 10:27am March 20, 2021 8:34am Gram Stain Umbilicus No results entered March 16, 2021 10:27am Blood Culture Blood NO GROWTH AFTER 5 DAYS March 18, 2021 9:10pm Advance Directives Advance Directive Response Recorded Date/ Time Do we have a copy on file here at [facility]? No October 14, 2020 11:22pm Does patient have an Advanced Directive? No October 14, 2020 11:22pm Pt has a Living Will? No October 14 11:22pm Pt has a Power of Orthopedic Cast Specialist? No October 14, 2020 11:22pm Chief Complaint and Reason for Visit Encounter Admit Date Chief Complaint Reason for V isit Departed Emergency March 27, 2021 11:49am FALL/ JAILENE K COMPLAINT Hospital Discharge Instructions Additional Discharge Instructions Return if your abdominal pain worsens. Follow- up on Monday with your primary care doctor. No Instructions/Education Pr ovided Hospital Discharge Medications [...] Date Discharge/Departure Date Attending Provider Departed [facility] Emergency Department March 27, 2021 11:49am March 27, 2021 2:32pm Departed Emergency [facility] Emergency Department March 20, 2021 2:33pm March 20, 2021 6:25pm Departed Emergency [facility] Emergency Department March 18, 2021 6:11pm March 18, 2021 9:19pm Departed [facility] Emergency Department March 16, 2021 3:28pm March 16, 2021 10:[facility] January 29, 2021 8:55pm January 29, 2021 11:08pm Departed [facility] Urgent [facility] January 21, 2021 2:24pm January 21, 2021 4:51pm Departed Emergency [facility] Emergency Department January 07, 2021 4:48pm January 07, 2021 6:55pm Depart Emergency [facility] Emergency Department January 02, 2021 4:12pm January 02, 2021 7:22pm Departed Emergency [facility] Emergency Department December 29, 2020 4:23pm December 29, 2020 7:13pm Departed Emergency [facility] Emergency Department October 14, 2020 10:48pm October 15, 2020 12:54am Functional Status Query Response Date Recorded Comment Comprehension Ability Understands Concepts March 18, 2021 8:30pm Mood/Behavior Appropriate March 18, 2021 8:30pm Speech Appropriate Clear March 18, 2021 8:30pm Query Response Date Recorded Comment Living Situation With Family March 27, 2021 2:32pm Immunizations No known immunizations. Plan of Care No Known Plan of Care Information Social History Query Response Date Recorded Comment Alcohol Use Yes March 27, 2021 1:06pm Alcohol type hard liquor March 27, 2021 1:06pm Smoking Status Never smoker March 27, 2021 1:06pm Substance/Street Drug Use Yes March 27 1:06pm alcohol intake frequency a few times a month March 27, 2021 1:06pm substance use type marijuana March 27, 2021 1:06 pm Query Response Start Date Stop Date Smoking Status Never smoker Vital Signs Vital Reading Result Reference Range Collection Date/Time Height 5 ft 4 in March 20 2:44pm Weight 95.254 kg March 27 12:22pm Temperature 98.6 F 97.6 F-99.6 F March 27 021 12:22pm Pulse 62 BPM 60-100 March 27 1:20pm Respiration 18 RPM 12-March 27 1:20pm Pulse Oximetry 98 % 95-100 March 27, 2021 1:20pm Blood Pressure Systolic 106 100-140 [facility] 1:20pm Blood Pressure Diastolic 59 50-85 [facility] 1:20pm
--- OUTSIDE RECORDS SUMMARY | 2022-11-20 17:39 | XMS_ITS | Continuity of Care Document ---
Author Name [facility] Address [address] [place] [address] Organization [facility] Address [address] [place] [address] Care Team Providers Care Recreation Therapist Name Role Phone Out of Town, Provider [...] comment No comparison data on file at [facility]. Microcytic hypochromic anemia, consistent [...] be used to monitor LMWH therapy. Contact [facility] Pharmacy for monitoring information. Urine Color January 02, 2021 6:04pm Lauren Urine Clarity January 02, 2021 6:04pm very cloudy Urine pH January 02, 2021 6:04pm 6.0 Urine Specific [place] January 02, 2021 6:04pm 1.015 Urine Protein [...] Urine Culture Ur,Clean Catch No results entered [facility] 1 7:39pm Routine Culture Umbilicus Staphylococcus Aureus-Mrsa March 16, 2021 10:27am March 20, 2021 8:34am Gram Stain Umbilicus No results entered March 16, 2021 10:27am Blood Culture Blood NO GROWTH AFTER 5 DAYS March 18, 2021 9:10pm Advance Directives Advance Directive Response Recorded Date/ Time Do we have a copy on file here at [facility]? No October 14, 2020 11:22pm Does patient have an Advanced Directive? No October 14, 2020 11:22pm Pt has a Living Will? No October 14 11:22pm Pt has a Power of Gusset Ripper? No October 14, 2020 11:22pm Chief Complaint [...] Admit/Visit Date Discharge/Departure Date Attending Provider Departed [facility] Emergency Department March 27, 2021 11:49am March 27, 2021 2:32pm Departed Emergency [facility] Emergency Department March 20, 2021 2:33pm March 20, 2021 6:25pm Departed Emergency [facility] Emergency Department March 18, 2021 6:11pm March 18, 2021 9:19pm Departed [facility] Emergency Department March 16, 2021 3:28pm March 16, [facility], 2021 8:55pm January 29, 2021 11:08pm Departed [facility] January 21, 2021 2:24pm January 21, 2021 4:51pm Departed Emergency [facility] Emergency Department January 07, 2021 4:48pm January 07, 2021 6:55pm Depart Emergency [facility] Emergency Department January 02, 2021 4:12pm January 02, 2021 7:22pm Departed Emergency [facility] Emergency Department December 29, 2020 4:23pm December 29, 2020 7:13pm Departed Emergency [facility] Emergency Department October 14, 2020 10:48pm [...] 2021 1:20pm Blood Pressure Systolic 106 100-140 [facility]2020 1:20pm Blood Pressure Diastolic 59 50-85 [facility] 1:20pm
--- OUTSIDE RECORDS SUMMARY | 2022-11-20 17:39 | XMS_ITS | Continuity of Care Document ---
Author Name [facility] Address [address] [place] [address] Organization [facility] Address [address] [place] [address] Care Team Providers Care Oil Speculator Name Role Phone Out of Town, Provider [...] comment No comparison data on file at [facility]. Microcytic hypochromic anemia, consistent with iron deficiency. Smear reviewed by pathologist for air quality specialist. Glenroy Mello MD 10/15/20 Prothrombin [...] be used to monitor LMWH therapy. Contact [facility] Pharmacy for monitoring information. Urine Color January 02, 2021 6:04pm Lauren Urine Clarity January 02, 2021 6:04pm very cloudy Urine pH January 02, 2021 6:04pm 6.0 Urine Specific [place] January 02, 2021 6:04pm 1.015 Urine Protein [...] Urine Culture Ur,Clean Catch No results entered [facility] 2020 7:39pm Routine Culture Umbilicus Staphylococcus Aureus-Mrsa March 16, 2021 10:27am March 20, 2021 8:34am Gram Stain Umbilicus No results entered March 16, 2021 10:27am Blood Culture Blood NO GROWTH AFTER 5 DAYS March 18, 2021 9:10pm Advance Directives Advance Directive Response Recorded Date/ Time Do we have a copy on file here at [facility]? No October 14, 2020 11:22pm Does patient have an Advanced Directive? No October 14, 2020 11:22pm Pt has a Living Will? No October 14 11:22pm Pt has a Power of Metal Bonding Press Operator? No October 14, 2020 11:22pm Chief Complaint and Reason for Visit Encounter Admit Date Chief Complaint Reason for V isit Departed Emergency August 26, 2021 5:22pm COFFERDAM CONSTRUCTION SUPERVISOR ISSUES Hospital Discharge Instructions Additional Discharge [...] 2021 6:11pm March 18, 2021 9:19pm Departed [facility] Emergency Department March 16, 2021 3:28pm March 16, 2021 10:43pm Departed Emergency [facility] Emergency Department January 29, 2021 8:55pm January 29, 2021 11:08pm Departed Emergency [facility]gent [facility] January 21, 2021 2:24pm January 21, 2021 4:51pm Departed [facility] Emergency Department January 07, 2021 4:48pm January 07, 2021 6:55pm Departed [facility] Emergency Department January 02, 2021 4:12pm January 02, 2021 7:22pm Departed [facility] Emergency Department December 29, 2020 [...]
--- OUTSIDE RECORDS SUMMARY | 2022-11-20 17:39 | XMS_ITS | Continuity of Care Document ---
Author Name [facility] Address [address] [place] [id number] Organization [facility] Address [address] [place] [address] Care Team Providers Care Outside Parts Sales Name Role Phone Out of Town, Provider [...] comment No comparison data on file at [facility]. Microcytic hypochromic anemia, consistent with iron deficiency. Smear reviewed by pathologist for quality control lab tech. Glenroy Mello MD 10/15/20 Prothrombin Time October [...] be used to monitor LMWH therapy. Contact [facility] Pharmacy for monitoring information. Urine Color January 02, 2021 6:04pm Lauren Urine Clarity January 02, 2021 6:04pm very cloudy Urine pH January 02, 2021 6:04pm 6.0 Urine Specific [place] January 02, 2021 6:04pm 1.015 Urine Protein [...] Urine Culture Ur,Clean Catch No results entered [facility] 2020 7:39pm Routine Culture Umbilicus Staphylococcus Aureus-Mrsa March 16, 2021 10:27am March 20, 2021 8:34am Gram Stain Umbilicus No results entered March 16, 2021 10:27am Blood Culture Blood NO GROWTH AFTER 5 DAYS March 18, 2021 9:10pm Advance Directives Advance Directive Response Recorded Date/ Time Do we have a copy on file here at [facility]? No October 14, 2020 11:22pm Does patient have an Advanced Directive? No October 14, 2020 11:22pm Pt has a Living Will? No October 14 11:22pm Pt has a Power of Head And Neck Surgeon? 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 Hospital Discharge Instructions Additional Discharge Instructions [...] Date Discharge/Departure Date Attending Provider Departed Emergency [facility] Emergency Department August 26, 2021 5:22pm August 26, 2021 7:15pm Departed Emergency [facility] Emergency Department August 10, [...] 2021 6:11pm March 18, 2021 9:19pm Departed [facility] Emergency Department March 16, 2021 3:28pm March 16, 2021 10:43pm Departed Emergency [facility] Emergency Department January 29, 2021 8:55pm January 29, 2021 11:08pm Departed Emergency [facility]gent [facility] January 21, 2021 2:24pm January 21, 2021 4:51pm Departed [facility] Emergency Department January 07, 2021 4:48pm January 07, 2021 6:55pm Departed [facility] Emergency Department January 02, 2021 4:12pm January 02, 2021 7:22pm Departed [facility] Emergency Department December 29, 2020 4:23pm December 29, 2020 7:13pm Departed Emergency [facility] Emergency Department October 14, 2020 [...]
--- OUTSIDE RECORDS SUMMARY | 2022-11-20 17:39 | XMS_ITS | Continuity of Care Document ---
Author Name [facility] Address [address] [place] [address] Organization [facility] Address [address] [place] [address] Care Team Providers Care Registered Route Associate Name Role Phone PCP, of Choice Primary [...] 2021 Discontinued Omeprazole 20 MG ORAL DAILY Febr2021August 07, 2021 Discontinued Cephalexin 500 MG ORAL [...] comment No comparison data on file at [facility]. Microcytic hypochromic anemia, consistent with iron deficiency. Smear reviewed by pathologist for quality control manager. Glenroy Mello MD 10/15/20 Prothrombin Time [...] be used to monitor LMWH therapy. Contact [facility] Pharmacy for monitoring information. Urine Color January 02, 2021 6:04pm Lauren Urine Clarity January 02, 2021 6:04pm very cloudy Urine pH January 02, 2021 6:04pm 6.0 Urine Specific [place] January 02, 2021 6:04pm 1.015 Urine Protein [...] Urine Culture Ur,Clean Catch No results entered [facility] 2020 7:39pm Routine Culture Umbilicus Staphylococcus Aureus-Mrsa March 16, 2021 10:27am March 20, 2021 8:34am Gram Stain Umbilicus No results entered March 16, 2021 10:27am Blood Culture Blood NO GROWTH AFTER 5 DAYS March 18, 2021 9:10pm Advance Directives Advance Directive Response Recorded Date/ Time Do we have a copy on file here at [facility]? No October 14, 2020 11:22pm Does patient have an Advanced Directive? No October 14, 2020 11:22pm Pt has a Living Will? No October 14 11:22pm Pt has a Power of Bottle House Quality Control Technician? No October 14, 2020 11:22pm Chief Complaint and Reason for Visit Encounter Admit Date Chief Complaint Reason for V isit Departed Emergency September 23, 2021 3:02pm abdominal compl ai Hospital Discharge Instructions Additional Discharge Instructions Return tomorrow morning for ultrasound of your pelvis with a full bladder at 10 AM. Your test here was normal and your urine showed some mild dehydration. We strongly encourage you to keep in contact with your pulp maker at the [facility]. It is important to keep [...] Location Admit/Visit Date Discharge/[facility]arture Date [facility], [facility] 3:02pm September 23, 2021 7:35pm Departed [facility] Emergency Department August 26, 2021 5:22pm August 26, 2021 [facility] August 10, 2021 2:19pm August 10, 2021 5:11pm Departed [facility] Emergency Department August 07, 2021 [...] 2021 6:11pm March 18, 2021 9:19pm Departed [facility] Emergency Department March 16, 2021 3:28pm March 16, 2021 10:[facility] January 29, 2021 8:55pm January 29, 2021 [facility] 2:24[facility] January 21, 2021 4[facility] January 07, 2021 4:48pm January 07, 2021 6:[facility] January 02, 2021 4:12pm January 02, 2021 7:22pm Departed [facility] Emergency Department December 29, [...]
--- OUTSIDE RECORDS SUMMARY | 2022-11-20 17:39 | XMS_ITS | Continuity of Care Document ---
Author Name [facility] Address [address] [place] [address] [facility] Address [address] [place] [address] Care Team Providers Care Treating Inspector Name Role Phone Out of Town, Provider [...] No comparison data on file at [facility]. Microcytic hypochromic anemia, consistent with iron deficiency. Smear reviewed by pathologist for vendor quality supervisor. Glenroy Mello MD 10/15/20 Prothrombin Time October [...] used to monitor LMWH therapy. Contact [facility] Pharmacy for monitoring information. Urine Color January 02, 2021 6:04pm Lauren Urine Clarity January 02, 2021 6:04pm very cloudy Urine pH January 02, 2021 6:04pm 6.0 Urine Specific [place] January 02, 2021 6:04pm 1.015 Urine Protein [...] Urine Culture Ur,Clean Catch No results entered [facility] 2020 7:39pm Routine Culture Umbilicus Staphylococcus Aureus-Mrsa March 16, 2021 10:27am March 20, 2021 8:34am Gram Stain Umbilicus No results entered March 16, 2021 10:27am Blood Culture Blood NO GROWTH AFTER 5 DAYS March 18, 2021 9:10pm Advance Directives Advance Directive Response Recorded Date/ Time Do we have a copy on file here at [facility]? No October 14, 2020 11:22pm Does patient have an Advanced Directive? No October 14, 2020 11:22pm Pt has a Living Will? No October 14 11:22pm Pt has a Power of Silo Filler? No October 14, 2020 11:22pm Chief Complaint and Reason for Visit Encounter Admit Date Chief Complaint Reason for V isit Departed Emergency August 07, 2021 11:58am RIGHT SIDE P AIN Hospital Discharge Instructions Additional Discharge Instructions Follow -up with your PCP and OPERATIONS TECH for ongoing pain management or immediately here [...] Discontinue d Montelukast 10 MG ORAL DAILY [id number] Active Omeprazole 20 MG ORAL DAILY 2021 [...] Departed Emergency [facility] Emergency Department August 07, 2021 11:58am August 07, 2021 5:15pm Departed Emergency [facility] Emergency Department [...] 2021 8:55pm January 29, 2021 11:08pm Departed [facility] Urgent [facility] January 21, [...] August 07, 2021 5:10pm Respiration 20 RPM -August 07, 2021 12:08pm Pulse Oximetry 96 % 95-100 August 07 5:10pm Blood Pressure Systolic 99 100-[address] [facility] 2021 5:10pm Blood Pressure Diastolic 65 50-85 [facility] 2021 5:10pm
--- OUTSIDE RECORDS SUMMARY | 2022-11-20 17:39 | XMS_ITS | Continuity of Care Document ---
Author Name [facility] Address [address] [place] [address] [facility] Address [address] [place] [address] Care Team Providers Care Dry Cell Battery Assembler Name Role Phone PCP, of Choice [...] comment No comparison data on file at [facility]. Microcytic hypochromic anemia, consistent with iron deficiency. Smear reviewed by pathologist for software quality assurance analyst. Glenroy Mello MD 10/15/20 [...] be used to monitor LMWH therapy. Contact [facility] for monitoring information. Urine Color January 02, 2021 6:04pm Lauren Urine Clarity January 02, 2021 6:04pm very cloudy Urine pH January 02, 2021 6:04pm 6.0 Urine Specific [employer] January 02, 2021 6:04pm 1.015 Urine [...] Urine Culture Ur,Clean Catch No results entered [facility] 2020 7:39pm Routine Culture Umbilicus Staphylococcus Aureus-Mrsa March 16, 2021 10:27am March 20, 2021 8:34am Gram Stain Umbilicus No results entered March 16, 2021 10:27am Blood Culture Blood NO GROWTH AFTER 5 DAYS March 18, 2021 9:10pm Advance Directives Advance Directive Response Recorded Date/ Time Do we have a copy on file here at [facility]? No October 14, 2020 11:22pm Does patient have an Advanced Directive? No October 14, 2020 11:22pm Pt has a Living Will? No October 14 11:22pm Pt has a Power of Buhr Dresser? No October 14, 2020 11:22pm Chief Complaint and Reason for Visit Encounter Admit Date Chief Complaint Reason for V isit Departed Emergency September 23, 2021 3:02pm abdominal compl [facility] Discharge Instructions Additional Discharge Instructions Return tomorrow morning for ultrasound of your pelvis with a full bladder at 10 AM. Your test here was normal and your urine showed some mild dehydration. We strongly encourage you to keep in contact with your [employer] rep at the [facility]. It is important to keep a follow-up [...] Admit/Visit Date Discharge/Departure Date Attending Provider Departed [facility] Emergency Department September 23, 2021 3:02pm September 23, 2021 7:35pm Departed [facility] Emergency Department August 26, 2021 5:22pm August 26, 2021 7:15pm Departed [facility] Emergency Department August 10, 2021 2:19pm August 10, 2021 5:11pm Departed [facility] Emergency Department August 07, 2021 11:58am August 07, 2021 5:15pm Departed [facility] Emergency Department June 27, 2021 2:30pm June 27, 2021 [facility] March 27, 2021 11:49am March 27, 2021 2:32pm Departed [facility] Emergency Department March 20, 2021 2:33pm March 20, 2021 [facility] March 18, 2021 6:11pm March 18, 2021 9:19pm Departed [facility] Emergency Department March 16, 2021 3:28pm March 16, 2021 10:43pm Departed [facility] Emergency Department January 29, 2021 8:55pm January 29, 2021 [facility] January 21, 2021 2:24pm January 21, 2021 [facility] 07, 2021 4:48pm January 07, 2021 [facility] January 02, 2021 4:12pm January 02, 2021 [facility] December 29, 2020 4:23pm December 29, 2020 [facility] October 14, 2020 [...]
--- OUTSIDE RECORDS SUMMARY | 2022-11-20 17:39 | XMS_ITS | Continuity of Care Document ---
Author Name [facility] Address [address] [place] [address] [facility] Address [address] [place] [address] Care Team Providers Care Oil Field Pipeline Supervisor Name Role Phone Out of Town, Provider [...] No comparison data on file at [facility] Microcytic hypochromic anemia, consistent with iron deficiency. Smear reviewed by pathologist for quality control technician. Glenroy Mello MD 10/15/20 [...] used to monitor LMWH therapy. Contact [facility] for monitoring information. Urine Color January 02, 2021 6:04pm Lauren Urine Clarity January 02, 2021 6:04pm very cloudy Urine pH January 02, 2021 6:04pm 6.0 Urine Specific [place] January 02, 2021 6:04pm 1.015 Urine Protein [...] Urine Culture Ur,Clean Catch No results entered [facility] 2020 7:39pm Routine Culture Umbilicus Staphylococcus Aureus-Mrsa March 16, 2021 10:27am March 20, 2021 8:34am Gram Stain Umbilicus No results entered March 16, 2021 10:27am Blood Culture Blood NO GROWTH AFTER 5 DAYS March 18, 2021 9:10pm Advance Directives Advance Directive Response Recorded Date/ Time Do we have a copy on file here at [facility]? No October 14, 2020 11:22pm Does patient have an Advanced Directive? No October 14, 2020 11:22pm Pt has a Living Will? No October 14 11:22pm Pt has a Power of Analysis Evaluator? No October 14, 2020 11:22pm Chief Complaint [...] Date Discharge/Departure Date Attending Provider Departed Emergency [facility] Emergency Department June 27, 2021 2:30pm June 27, 2021 4:01pm Departed Emergency [facility] Emergency Department March 27, 2021 11:49am March 27, 2021 2:32pm Departed Emergency [facility] Emergency Department March 20, 2021 2:33pm March 20, 2021 6:25pm Departed Emergency [facility] Emergency Department March 18, 2021 6:11pm March 18, 2021 9:19pm Departed Emergency [facility] Emergency Department March 16, 2021 3:28pm March 16, 2021 10:43pm Departed Emergency [facility] Emergency Department January 29, 2021 8:55pm January 29, 2021 11:08pm Departed Emergency [facility] January 21, 2021 2:24pm January 21, 2021 4:51pm Departed Emergency [facility] Emergency Department January 07, 2021 4:48pm January 07, 2021 6:55pm Departed Emergency [facility] Emergency Department January 02, 2021 4:12pm January 02, 2021 7:22pm Departed Emergency [facility] Emergency Department December 29, 2020 4:23pm December 29, 2020 7:13pm Departed Emergency [facility] Emergency Department October 14, 2020 10:48pm [...]
--- OUTSIDE RECORDS SUMMARY | 2022-11-20 17:39 | XMS_ITS | Continuity of Care Document ---
Author Name [facility] Address [address] [place] [address] Organization [facility] Address [address] [place] [address] Care Team Providers Care Carrot Grader Inspector Name Role Phone Out of Town, [...] Q8H PRN For pain January 21, 2021 January 29, 2021 Discontinued Hydrocodone-Qamar taminophen 1 TAB ORAL Q6H PRN For pain January 02, 2021 January 07, 2021 Discontinued Famotidine-Ca Carb-Mag Hydrox [Pepcid Complete] 1 TAB ORAL DAILY 30 January 08, 2021 January 29, 2021 Discontinued Dicyclomine 10 MG ORAL .q6 prn 30 January 08, 2021 January 21, 2021 Discontinued Problem List Active Problems Medical Problem Onset Date Status Post-operative pain Active Inactive/Resolved Problems Medical Problem Onset Date Status Ovarian cyst Inactive Functional abdominal pain syndrome Inactive Gastritis Inactive Pain, dental Inactive Pain, dental Inactive Iron deficiency anemia Inactive Abdominal pain Inactive Abdominal pain Inactive Hemorrhagic cyst of left ovary I nactive Procedures Procedure Date Status Blood Culture March 18, 2021 active Urine Culture March 16, 2021 completed Gram [...] Result Co mment White Blood Count March 18, 2021 7:56pm 5.26 1000/mm3 4.8-10.8 Red Blood Count March 18, 2021 7:56pm 4.17 M/mm3 Low 4.20-5.40 Hemoglobin March 18, 2021 7:56pm 9.9 g/dL Low 12.0-16.0 Hematocrit March 18, 2021 7:56pm 32.9 % Low 37-47 Mean Corpuscular Volume March 18, 2021 7:56pm 78.9 fL Low 81.0-99.0 Mean Corpuscular Hemoglobin March 18, 2021 7:56pm 23.7 pg Low 27-31 Mean Corpuscular Hemoglobin Concent March 18, 2021 7:56pm 30.1 g/dL Low 33-37 Red Cell Distribution Width March 18, 2021 7:56pm 16.4 % High 11.5-14.5 Platelet Count March 18, 2021 7:56pm 212 1000/mm3 140-440 Mean Platelet Volume March 18, 2021 7:56pm 10.4 fL 7.4-10.4 Neutrophils (%) (Auto) March 18, 2021 7:56pm 57.9 % 40.0-72.0 Lymphocytes (%) (Auto) March 18, 2021 7:56pm 30.4 % 17-45 Monocytes (%) (Auto) March 18, 2021 7:56pm 7.2 % 3-11 Eosinophils (%) (Auto) March 18, 2021 7:56pm 3.2 % High 0-3 Basophils (%) (Auto) March 18, 2021 7:56pm 1.1 % High 0-1 Immature Granulocyte % (Auto) March 18, 2021 7:56pm 0.2 % 0-1 Neutrophils # (Auto) March 18, 2021 7:56pm 3.04 1000/mm3 1.4-6.5 Lymphocytes # (Auto) March 18, 2021 7:56pm 1.60 1000/mm3 1.2-3.4 Monocytes # (Auto) March 18, 2021 7:56pm 0.38 1000/mm3 0.0-0.8 Eosinophils # (Auto) March 18, 2021 7:56pm 0.17 1000/mm3 0.0-0.7 Basophils # (Auto) March 18, 2021 7:56pm 0.06 1000/mm3 0.0-0.1 Absolute Immature Granulocyte (auto March 18, 2021 7:56pm 0.0 0-1 Differential Method March 18, 2021 7:56pm Automated Differential Pathologist's Review October 14, 2020 11:38pm See comment No comparison data on file at [facility]. Microcytic hypochromic anemia, consistent with iron deficiency. Smear reviewed by pathologist for manufacturing quality inspector. Glenroy Mello MD 10/15/20 Prothrombin Time [...] January 02, 2021 6:04pm 6.0 Urine Specific [place] January 02, 2021 6:04pm 1.015 Urine Protein [...] 02, 2021 6:04pm Negative Sodium Level March 18, 2021 7:56pm 141 mmol/L 137-145 Potassium Level March 18, 2021 7:56pm 3.4 mmol/L Low 3.6-5.0 Chloride Level March 18, 2021 7:56pm 102 mmol/L 98-107 Carbon Dioxide Level March 18, 2021 7:56pm 29 mmol/L 22-30 Anion Gap March 18, 2021 7:56pm 10 7-16 Blood Urea Nitrogen March 18, 2021 7:56pm 10 mg/dL 7-17 Creatinine March 18, 2021 7:56pm 0.66 mg/dL 0.52-1.04 Glomerular Filtration Rate Calc March 18, 2021 7:56pm > 60 mL/min 60.0- Glucose Level March 18, 2021 7:56pm 84 mg/dL 70-100 Calcium Level March 18, 2021 7:56pm 9.3 mg/dL 8.4-10.2 Calcium Adjusted for Albumin March [...] Ur,Clean Catch No results entered [facility] 2020 7:39pm Gram Stain Umbilicus No [...] 14 11:22pm Pt has a Power of Dispatcher Service Or Work? No October 14, 2020 11:22pm Chief Complaint and Reason for Visit Encounter Admit Date Chief Complaint Reason for Baylee reddy Departed Emergency March 18, 2021 6:11pm ABDOMINAL P [facility] Hospital Discharge Instructions Additional Discharge Instructions Seen t sandra for postop pain and bleeding. I do not see an appreciable drop in your blood counts fortunately. I do not find any evidence of infection. Today we have treated you for your pain and nausea and given you IV fluids. No change from previous plan to follow-up with WORKERS' COMPENSATION MEDIATOR as discussed. If you have persistent vomiting, intolerable pain, fever or other new worrisome symptoms return to the emergency department right away. The treatment plan for this visit includes a prescription for an opiate pain medication. There are potential side effects including risk of dependence or addiction and overdose. Practice safe storage, and disposal of opiate medications. Alternative treatments which include NSAIDS/Tylenol, cryotherapy, massage, chiropractic, and acupuncture could be helpful depending on your specific pain or injury. No Instructions/Education [facility] Discharge Medications [...] Admit/Visit Date Discharge/Departure Date Attending Provider Departed [facility] Emergency Department March 18, 2021 6:11pm March 18, 2021 9:19pm Departed [facility] Emergency Department March 16, 2021 3:28pm March 16, 2021 10:43pm Departed [facility] Emergency Department January 29, 2021 8:55pm January 29, 2021 11:08pm Departed [facility] January 21, 2021 2:24pm January 21, 2021 4:51pm Departed Emergency [facility] Emergency Department January 07, 2021 4:48pm January 07, 2021 6:55pm Departed [facility] Emergency Department January 02, 2021 4:12pm January 02, 2021 7:22pm Departed [facility] Emergency Department December 29, 2020 4:23pm December 29, 2020 7:13pm Departed Emergency [facility] Emergency Department October 14, 2020 10:48pm October 15, 2020 12:54am Functional Status Query Response Date Recorded Comment Comprehension Ability Understands Concepts March 18, 2021 8:30pm Mood/Behavior Appropriate March 18, 2021 8:30pm Speech Appropriate Clear March 18, 2021 8:30pm Query Response Date Recorded Comment Living Situation Home With Significant Other March 18, 2021 9:19pm Immunizations No known immunizations. Plan of Care No Known Plan of Care Information Social History Query Response Date Recorded Comment Alcohol Use Yes March 18, 2021 7:50pm Alcohol type hard liquor March 18, 2021 7:50pm Smoking Status Never smoker March 18, 2021 7:50pm Substance/Street Drug Use Yes March 18 7:50pm alcohol intake frequency a few times a month March 18, 2021 7:50pm substance use type marijuana March 18, 2021 7:50p m Query Response Start Date Stop Date Smoking Status Never smoker Vital Signs Vital Reading Result Reference Range Collection Date/Time Weight 95.254 kg March 18 6:24pm Temperature 98.9 F 97.6 F-99.6 F March 18 6:24pm Pulse 82 BPM 60-100 March 18 8:33pm Respiration 16 RPM -March 18 8:33pm Pulse Oximetry 99 % 95-100 November 4, 2 021 8:33pm Blood Pressure Systolic 100 100-140 [facility] 2020 8:33pm Blood Pressure Diastolic 58 50-85 [facility] 2020 8:33pm
--- OUTSIDE RECORDS SUMMARY | 2022-11-20 17:39 | XMS_ITS | Continuity of Care Document ---
Author Name [facility] Address [address] [place] [address] Organization [facility] Address [address] [place] [address] Care Team Providers Care Ballet Soloist Name Role Phone Out of Town, Provider [...] 2020 Active Fluticasone Propion-Salmeterol [Advair Hfa] INHALATION b er 2020 Active Ondansetron Hcl [Zofran] 4 [...] Discontinued Dicyclomine 10 MG ORAL .q6 prn 2020January 21, 2021 Discontinued Problem List Inactive/Resolved Problems [...] comment No comparison data on file [place] [facility] Microcytic hypochromic anemia, consistent with iron deficiency. Smear reviewed by pathologist for quality improvement consultant. Glenroy Mello MD 10/15/20 Prothrombin Time October [...] be used to monitor LMWH therapy. Contact [facility] for monitoring information. Urine Color January 02, 2021 6:04pm Lauren Urine Clarity January 02, 2021 6:04pm very cloudy Urine pH January 02, 2021 6:04pm 6.0 Urine Specific [place] January 02, 2021 6:04pm 1.015 Urine Protein [...] Urine Culture Ur,Clean Catch No results entered [facility] 2020 7:39pm Routine Culture Umbilicus Staphylococcus Aureus-Mrsa March 16, 2021 10:27am March 20, 2021 8:34am Gram Stain Umbilicus No results entered March 16, 2021 10:27am Advance Directives Advance Directive Response Recorded Date/ Time Do we have a copy on file here at [facility] No October 14, 2020 11:22pm Does patient have an Advanced Directive? No October 14, 2020 11:22pm Pt has a Living Will? No October 14 11:22pm Pt has a Power of Volunteer Specialist? No October 14, 2020 11:22pm Chief Complaint and Reason for Visit Encounter Admit Date Chief Complaint Reason for V isit Departed Emergency March 20, 2021 2:33pm HEAVY VAG B [facility] Discharge Instructions Additional Discharge Instructions Your r [...] nausea and vomiting 12 March 20, 2021 Active Sulfamethoxa zole-Trimeth oprim 1 TAB ORAL TWICE A DAY 14 March 20, 2021 Active Encounters Encounter Facility Location Admit/Visit Date Discharge/Departure Date Attending Provider Departed [facility] Emergency Department March 20, 2021 2:33pm March 20, 2021 6:25pm Departed Emergency [facility] Emergency Department March 18, 2021 6:11pm March 18, 2021 9:19pm Departed Emergency [facility] Emergency Department March 16, 2021 3:28pm March 16, 2021 10:43pm Departed Emergency [facility] Emergency Department January 29, 2021 8:55pm January 29, 2021 11:08pm Departed Emergency [facility]gent [facility] January 21, 2021 2:24pm January 21, 2021 4:51pm Depart Emergency [facility] Emergency Department January 07, 2021 4:48pm January 07, 2021 6:55pm Departed Emergency [facility] Emergency Department January 02, 2021 4:12pm January 02, 2021 7:22pm Departed Emergency [facility] Emergency Department December 29, 2020 4:23pm December 29, 2020 7:13pm Departed Emergency [facility] Emergency Department October [...] Pulse Oximetry 100 % 95-100 March 20 5:00pm Blood Pressure Systolic 124 100-140 [facility] 2020 5:00pm Blood Pressure Diastolic 57 50-85 [facility] 2020 5:00pm
--- OUTSIDE RECORDS SUMMARY | 2022-11-20 17:39 | XMS_ITS | Continuity of Care Document ---
Author Name [facility] Address [address] [place] [id number] Organization [facility] Address [address] [place] [address] Care Team Providers Care Tool Grinder Operator External Name Role Phone Out of Town, Provider [...] 50 MG ORAL TWICE A DAY Ladarius e 2020 Active Trazodone 100 MG ORAL BEDTIME [...] comment No comparison data on file at [facility] Microcytic hypochromic anemia, consistent with iron deficiency. Smear reviewed by pathologist for quality control specialist. Glenroy Mello MD 10/15/20 Prothrombin Time [...] be used to monitor LMWH therapy. Contact [facility] for monitoring information. Urine Color January 02, 2021 6:04pm Lauren Urine Clarity January 02, 2021 6:04pm very cloudy Urine pH January 02, 2021 6:04pm 6.0 Urine Specific [place] January 02, 2021 6:04pm 1.015 Urine Protein [...] Urine Culture Ur,Clean Catch No results entered [facility] 2020 7:39pm Routine Culture Umbilicus Staphylococcus Aureus-Mrsa March 16, 2021 10:27am March 20, 2021 8:34am Gram Stain Umbilicus No results entered March 16, 2021 10:27am Blood Culture Blood NO GROWTH AFTER 5 DAYS March 18, 2021 9:10pm Advance Directives Advance Directive Response Recorded Date/ Time Do we have a copy on file here at [facility] No October 14, 2020 11:22pm Does patient have an Advanced Directive? No October 14, 2020 11:22pm Pt has a Living Will? No October 14 11:22pm Pt has a Power of Cancer Genetics Assistant? No October 14, 2020 11:22pm Chief Complaint and Reason for Visit Encounter Admit Date Chief Complaint Reason for V isit Departed Emergency March 20, 2021 2:33pm HEAVY VAG B [facility] Discharge Instructions Additional Discharge Instructions Your r [...] pain 10 January 21, 2021 Discontinue d Gabapentin 200 [...] Departed [facility] Emergency Department March 27, 2021 11:49am March 27, 2021 2:32pm Departed Emergency [facility] Emergency Department March 20, 2021 2:33pm March 20, 2021 6:25pm Departed Emergency [facility] Emergency Department March 18, 2021 6:11pm March 18, [facility] 16, 2021 3:28pm March 16, 2021 [facility] January 29, 2021 8:55pm January 29, [facility] January 21, 2021 2:24pm January 21, 2021 4:51pm Departed Emergency [facility] Emergency Department January 07, 2021 4:48pm January 07, 2021 6:55pm Departed Emergency [facility] Emergency Department January 02, 2021 4:12pm January 02, 2021 7:22pm Departed Emergency [facility] Emergency Department December 29, 2020 4:23pm December 29, 2020 7:13pm Depart Emergency [facility] Emergency Department October 14, 2020 [...] 60-100 March 27 1:20pm Respiration 18 RPM 12-24 March 27 1:20pm Pulse Oximetry 98 % 95-100 March 27, 2021 1:20pm Blood Pressure Systolic 106 100-140 [facility] 1:20pm Blood Pressure Diastolic 59 50-85 [facility] 2020 1:20pm
--- OUTSIDE RECORDS SUMMARY | 2022-11-20 17:39 | XMS_ITS | Continuity of Care Document ---
Author Name [facility] Address [address] [place] [address] Organization [facility] Address [address] [place] [address] Care Team Providers Care Cap Blocker Name Role Phone Out of Town, Provider [...] Smear reviewed by pathologist for quality assurance supervisor final. Glenroy Mello MD 10/15/20 Prothrombin Time October [...] January 02, 2021 6:04pm 6.0 Urine Specific [place] January 02, 2021 6:04pm 1.015 Urine Protein [...] Urine Culture Ur,Clean Catch No results entered [facility] 2020 7:39pm Routine Culture Umbilicus [...] 14 11:22pm Pt has a Power of Carpet Renovator? No October 14, 2020 11:22pm Chief Complaint [...] Date Discharge/Departure Date Attending Provider Departed Emergency [facility] Emergency Department June 27, 2021 2:30pm June 27, 2021 4:01pm Departed Emergency [facility] Emergency Department March 27, 2021 11:49am March 27, 2021 2:32pm Departed Emergency [facility] Emergency Department March 20, 2021 2:33pm March 20, 2021 6:25pm Departed Emergency [facility] Emergency Department March 18, 2021 6:11pm March 18, 2021 9:19pm Departed Emergency [facility] Emergency Department March 16, 2021 3:28pm March 16, 2021 10:43pm Departed Emergency [facility] Emergency Department January 29, 2021 8:55pm January 29, 2021 11:08pm Departed Emergency [facility] January 21, 2021 2:24pm [...]
--- OUTSIDE RECORDS SUMMARY | 2022-11-20 17:39 | XMS_ITS | Continuity of Care Document ---
Author Name [facility] Address [address] [place] [address] Organization [facility] Address [address] [place] [address] Care Team Providers Care Research Assoc Name Role Phone Out of Town, Provider [...] comparison data on file at [facility] Microcytic hypochromic anemia, consistent with iron deficiency. Smear reviewed by pathologist for fuel quality tech. Glenroy Mello MD 10/15/20 Prothrombin Time [...] to monitor LMWH therapy. Contact [facility] for monitoring information. Urine Color January 02, 2021 6:04pm Lauren Urine Clarity January 02, 2021 6:04pm very cloudy Urine pH January 02, 2021 6:04pm 6.0 Urine Specific [place] January 02, 2021 6:04pm 1.015 Urine Protein [...] Culture Ur,Clean Catch No results entered [facility] 2020 7:39pm Routine Culture Umbilicus Staphylococcus Aureus-Mrsa March 16, 2021 10:27am March 20, 2021 8:34am Gram Stain Umbilicus No results entered March 16, 2021 10:27am Blood Culture Blood NO GROWTH AFTER 5 DAYS March 18, 2021 9:10pm Advance Directives Advance Directive Response Recorded Date/ Time Do we have a copy on file here at [facility]? No October 14, 2020 11:22pm Does patient have an Advanced Directive? No October 14, 2020 11:22pm Pt has a Living Will? No October 14 11:22pm Pt has a Power of Wax Pumper? No October 14, 2020 11:22pm Chief Complaint and Reason for Visit Encounter Admit Date Chief Complaint Reason for V isit Departed Emergency August 26, 2021 5:22pm [facility] Hospital Discharge Instructions Additional Discharge Instructions [...] 8:55pm January 29, 2021 11:08pm Departed Emergency [facility] January 21, 2021 2:24pm January 21, 2021 4:51pm Departed Emergency [facility] Emergency Department January 07, 2021 4:48pm January 07, 2021 6:55pm Departed [facility] Emergency Department January 02, 2021 [...]
--- OUTSIDE RECORDS SUMMARY | 2022-11-20 17:39 | XMS_ITS | Continuity of Care Document ---
Author Name [facility] Address [address] [place] [address] Organization [facility] Address [address] [place] [address] Care Team Providers Care Keying Machine Operator Name Role Phone Out of Town, [...] comment No comparison data on file at [facility]. Microcytic hypochromic anemia, consistent with iron deficiency. Smear reviewed by pathologist for air quality manager. Glenroy Mello MD 10/15/20 Prothrombin [...] be used to monitor LMWH therapy. Contact [facility] for monitoring information. Urine Color January 02, 2021 6:04pm Lauren Urine Clarity January 02, 2021 6:04pm very cloudy Urine pH January 02, 2021 6:04pm 6.0 Urine Specific [place] January 02, 2021 6:04pm 1.015 Urine Protein [...] Urine Culture Ur,Clean Catch No results entered [facility] 2020 7:39pm Routine Culture Umbilicus Staphylococcus Aureus-Mrsa March 16, 2021 10:27am March 20, 2021 8:34am Gram Stain Umbilicus No results entered March 16, 2021 10:27am Blood Culture Blood NO GROWTH AFTER 5 DAYS March 18, 2021 9:10pm Advance Directives Advance Directive Response Recorded Date/ Time Do we have a copy on file here at [facility]? No October 14, 2020 11:22pm Does patient have an Advanced Directive? No October 14, 2020 11:22pm Pt has a Living Will? No October 14 11:22pm Pt has a Power of Neuropathologist? No October 14, 2020 11:22pm Chief Complaint [...] Date Discharge/Departure Date Attending Provider Departed Emergency [facility] Emergency Department June 27, 2021 2:30pm June 27, 2021 4:01pm Departed Emergency [facility] Emergency Department March 27, 2021 11:49am March 27, 2021 2:32pm Departed Emergency [facility] Emergency Department March 20, 2021 2:33pm March 20, 2021 6:25pm Departed Emergency [facility] Emergency Department March 18, 2021 6:11pm March 18, 2021 9:19pm Departed Emergency [facility] Emergency Department March 16, 2021 3:28pm March 16, 2021 10:43pm Departed Emergency [facility] Emergency Department January 29, 2021 8:55pm January 29, 2021 11:08pm Departed Emergency [facility] January 21, 2021 2:24pm January 21, 2021 4:51pm Departed Emergency [facility] Emergency Department January 07, 2021 4:48pm January 07, 2021 6:55pm Departed Emergency [facility] Emergency Department January 02, 2021 4:12pm January 02, 2021 7:22pm Departed Emergency [facility] Emergency Department December 29, 2020 4:23pm December 29, 2020 7:13pm Departed Emergency [facility] Emergency Department October 14, [...]
--- OUTSIDE RECORDS SUMMARY | 2022-11-20 17:39 | XMS_ITS | Continuity of Care Document ---
Author Name [facility] Address [address] [place] [address] [facility] Address [address] [place] [address] Care Team Providers Care Stain Applicator Name Role Phone Out of Town, Provider [...] deficiency. Smear reviewed by pathologist for quality inspector. Glenroy Mello MD 10/15/20 Prothrombin [...] January 02, 2021 6:04pm 6.0 Urine Specific [place] January 02, 2021 6:04pm 1.015 Urine Protein [...] Ur,Clean Catch No results entered [facility] 2020 7:39pm Routine Culture Umbilicus Staphylococcus Aureus-Mrsa [...] 14 11:22pm Pt has a Power of Resort Housekeeper? No October 14, 2020 11:22pm Chief Complaint and Reason for Visit Encounter Admit Date Chief Complaint Reason for V isit Departed Emergency August 07, 2021 11:58am [facility] Discharge Instructions Additional Discharge Instructions Follow -up with your PCP and SLIDE FASTENERS INSPECTOR for ongoing pain management or immediately here [...] 2021 11:08pm Departed [facility]gent [place] January [...] 07 5:10pm Blood Pressure Systolic 99 100-140 [facility] 2021 5:10pm Blood Pressure Diastolic 65 50-85 [facility] 2021 5:10pm
--- OUTSIDE RECORDS SUMMARY | 2022-11-20 17:40 | XMS_ITS | Continuity of Care Document ---
Author Name [facility] Address [address] [place] [id number] Organization [facility] Address [address] [place] [address] Care Team Providers Care Crystal Lapper Name Role Phone Out of Town, Provider [...] comment No comparison data on file at [facility]. Microcytic hypochromic anemia, consistent with iron deficiency. Smear reviewed by pathologist for advanced quality engineer. Glenroy Mello MD 10/15/20 Prothrombin [...] be used to monitor LMWH therapy. Contact [facility] for monitoring information. Urine Color January 02, 2021 6:04pm Lauren Urine Clarity January 02, 2021 6:04pm very cloudy Urine pH January 02, 2021 6:04pm 6.0 Urine Specific [place] January 02, 2021 6:04pm 1.015 Urine Protein [...] Urine Culture Ur,Clean Catch No results entered [facility] 2020 7:39pm Routine Culture Umbilicus Staphylococcus Aureus-Mrsa March 16, 2021 10:27am March 20, 2021 8:34am Gram Stain Umbilicus No results entered March 16, 2021 10:27am Blood Culture Blood NO GROWTH AFTER 5 DAYS March 18, 2021 9:10pm Advance Directives Advance Directive Response Recorded Date/ Time Do we have a copy on file here at [facility]? No October 14, 2020 11:22pm Does patient have an Advanced Directive? No October 14, 2020 11:22pm Pt has a Living Will? No October 14 11:22pm Pt has a Power of Water Well Driller? No October 14, 2020 11:22pm Chief Complaint [...] Provider Departed [facility] Emergency Department August 10, 2021 2:19pm August 10, 2021 5:11pm Departed [facility] Emergency Department August 07, 2021 11:58am August 07, 2021 [facility] June 27, 2021 2:30pm June 27, 2021 4:01pm [facility] March 27, 2021 11:49am March 27, 2021 2:32pm [facility] March 20, 2021 2:33pm March 20, 2021 6:25pm [facility] March 18, 2021 6:11pm March 18, 2021 9:19pm [facility] March 16, 2021 3:28pm March 16, 2021 10:43pm [facility] January 29, 2021 8:55pm January 29, [facility] January 21, 2021 2:24pm January 21, 2021 4:51pm [facility] January 07, 2021 4:48pm January 07, 2021 6:55pm [facility] January 02, 2021 4:12pm January 02, 2021 7:22pm Departed [facility] Emergency Department December 29, 2020 4:23pm December 29, 2020 7:13pm [facility] October 14, [...] 10 5:10pm Blood Pressure Systolic 124 100-140 [facility] 2021 5:10pm Blood Pressure Diastolic 69 50-85 [facility] 2021 5:10pm
--- OUTSIDE RECORDS SUMMARY | 2022-11-20 17:40 | XMS_ITS | Continuity of Care Document ---
Author Name [facility] Address [address] [place] [address] Organization [facility] Address [address] [place] [address] Care Team Providers Care Carry In Worker Name Role Phone Out of Town, Provider [...] 2020 Active Montelukast 10 MG ORAL DAILY ry 2021 Active Omeprazole 20 MG ORAL DAILY 2021 Active Cephalexin 500 MG ORAL FOUR TIMES DAILY June 27, 2021 Active Tramadol [Ultram] 50 MG ORAL Q6H PRN For Pain June 27, 2021 Active Gabapentin 200 MG ORAL DAILY Augus t 2020 Active Ondansetron 4 MG ORAL Q6H PRN For nausea and vomiting January 02, 2021 Active Fluticasone Propion-Salmeterol [Advair Hfa] INHALATION Novemb er 2, 2021 Active Discontinued Medications Medication Dose Units [...] Problems Medical Problem Onset Date Status Abdominal pain Active Inactive/Resolved Problems Medical Problem Onset [...] comment No comparison data on file at [facility]. Microcytic hypochromic anemia, consistent with iron deficiency. Smear reviewed by pathologist for quality control lead. Glenroy Mello MD 10/15/20 Prothrombin Time October [...] be used to monitor LMWH therapy. Contact [facility] Pharm[facility] for monitoring information. Urine Color January 02, 2021 6:04pm Lauren Urine Clarity January 02, 2021 6:04pm very cloudy Urine pH January 02, 2021 6:04pm 6.0 Urine Specific [place] January 02, 2021 6:04pm 1.015 Urine Protein [...] Urine Culture Ur,Clean Catch No results entered [facility] 2020 7:39pm Routine Culture Umbilicus Staphylococcus Aureus-Mrsa March 16, 2021 10:27am March 20, 2021 8:34am Gram Stain Umbilicus No results entered March 16, 2021 10:27am Blood Culture Blood NO GROWTH AFTER 5 DAYS March 18, 2021 9:10pm Advance Directives Advance Directive Response Recorded Date/ Time Do we have a copy on file here at [facility]? No October 14, 2020 11:22pm Does patient have an Advanced Directive? No October 14, 2020 11:22pm Pt has a Living Will? No October 14 11:22pm Pt has a Power of Sagger Soak? No October 14, 2020 11:22pm Chief Complaint [...] [id number] Active Omeprazole 20 MG ORAL DAILY Febr 2021 Active Cephalexin 500 MG ORAL FOUR TIMES DAILY 20 June 27, 2021 Active Tramadol 50 MG [...] Date Discharge/Departure Date Attending Provider Departed Emergency [facility] Emergency Department June 27, 2021 2:30pm June 27, 2021 4:01pm Departed Emergency [facility] Emergency Department March 27, 2021 11:49am March 27, 2021 2:32pm Departed Emergency [facility] Emergency Department March 20, 2021 2:33pm March 20, 2021 6:25pm Departed Emergency [facility] Emergency Department March 18, 2021 6:11pm March 18, 2021 9:19pm Departed Emergency [facility] Emergency Department March 16, 2021 3:28pm March 16, 2021 10:43pm Departed Emergency [facility] Emergency Department January 29, 2021 8:55pm January 29, 2021 11:08pm Departed Emergency [facility] January 21, 2021 2:24pm January 21, 2021 4:51pm Departed Emergency [facility] Emergency Department January 07, 2021 4:48pm January 07, 2021 6:55pm Departed Emergency [facility] Emergency Department January 02, 2021 4:12pm January 02, 2021 7:22pm Departed Emergency [facility] Emergency Department December 29, 2020 4:23pm December 29, 2020 7:13pm Departed Emergency [facility] Emergency [...] 98.2 F 97.6 F-99.6 F June 27 022 2:33pm Pulse 75 BPM 60-100 June 27 2:33pm Respiration 18 RPM -June 27 2:33pm Pulse Oximetry 99 % 95-100 June 27, 2021 2:33pm Blood Pressure Systolic 116 100-140 [facility] 2021 2:33pm Blood Pressure Diastolic 70 50-85 Feb ruary 2021 2:33pm
--- OUTSIDE RECORDS SUMMARY | 2022-11-20 17:40 | XMS_ITS | Continuity of Care Document ---
Author Name [facility] Address [address] [place] [id number] Organization [facility] Address [address] [place] [address] Care Team Providers Care Senior Advisory Name Role Phone Out of Town, Provider [...] Smear reviewed by pathologist for quality control projectionist. Glenroy Mello MD 10/15/20 Prothrombin Time October [...] January 02, 2021 6:04pm 6.0 Urine Specific [place] January 02, 2021 6:04pm 1.015 Urine Protein [...] Urine Culture Ur,Clean Catch No results entered [facility] 2020 7:39pm Routine Culture Umbilicus [...] 14 11:22pm Pt has a Power of Proj Mgr? No October 14, 2020 11:22pm Chief Complaint [...] Provider Departed [facility] Emergency Department August 10, 2021 2:19pm August 10, 2021 5:11pm Departed [facility] Emergency Department August 07, 2021 11:58am August 07, [facility], 2021 2:30pm June 27, 2021 [facility] March 27, 2021 11:49am March 27, 2021 [facility] March 20, 2021 2:33pm March 20, 2021 6:[facility] March 18, 2021 6:11pm March 18, 2021 9:[facility] March 16, 2021 3:28pm March 16, 2021 10:[facility] January 29, 2021 8:55pm January 29, 2021 [facility] January 21, 2021 2:24pm January 21, 2021 4:[facility] January 07, 2021 4:48pm January 07, 2021 6:[facility] January 02, 2021 4:12pm January 02, 2021 7:22pm Departed [facility] Emergency Department December 29, 2020 4:23pm December 29, 2020 7[facility] October 14, 2020 10:48pm [...] 10 5:10pm Blood Pressure Systolic 124 100-140 [facility] 2021 5:10pm Blood Pressure Diastolic 69 50-85 [facility] 2021 5:10pm
--- OUTSIDE RECORDS SUMMARY | 2022-11-20 17:40 | XMS_ITS | Continuity of Care Document ---
Author Name [facility] Address [address] [place] [address] Organization [facility] Address [address] [place] [address] Care Team Providers Care Assistant Research Scientist Name Role Phone Out of Town, Provider [...] deficiency. Smear reviewed by pathologist for senior manager quality assurance. Glenroy Mello MD 10/15/20 Prothrombin [...] January 02, 2021 6:04pm 6.0 Urine Specific [place] January 02, 2021 6:04pm 1.015 Urine Protein [...] Ur,Clean Catch No results entered [facility] 2020 7:39pm Routine Culture Umbilicus [...] 11:22pm Pt has a Power of High School Counselor? No October 14, 2020 11:22pm Chief Complaint [...] Admit/Visit Date Discharge/Departure Date Attending Provider Departed [facility] Emergency Department August 10, 2021 2:19pm August 10, 2021 5:11pm Departed [facility] Emergency Department August 07, 2021 11:58am August 07, 2021 [facility] June 27, 2021 2:30pm June 27, 2021 4:[facility] March 27, 2021 11:49am March 27, 2021 2:[facility] March 20, 2021 2:33pm March 20, 2021 6:[facility]pm [facility] March 18, 2021 6:11pm March 18, 2021 9:19pm [facility] March 16, 2021 3:28pm March 16, 2021 10:43pm [facility] January 29, 2021 8:55pm January 29, 2021 11:[facility] January 21, 2021 2:24pm January 21, 2021 4:[facility] January 07, 2021 4:48pm January 07, 2021 6:55[facility] January 02, 2021 4:12pm January 02, 2021 7:22pm Departed [facility] Emergency Department December 29, 2020 4:23pm December 29, 2020 7:13[facility] October 14, 2020 10:48pm [...] 10 5:10pm Blood Pressure Systolic 124 100-140 [facility] 2021 5:10pm Blood Pressure Diastolic 69 50-85 [facility] 2021 5:10pm
--- OUTSIDE RECORDS SUMMARY | 2022-11-20 17:40 | XMS_ITS | Continuity of Care Document ---
Author Name [facility] Address [address] [place] [address] Organization [facility] Address [address] [place] [address] Care Team Providers Care Shipping Support Clerk Name Role Phone PCP, of Choice Primary [...] comment No comparison data on file at [facility]. Microcytic hypochromic anemia, consistent with iron deficiency. Smear reviewed by pathologist for quality technician fiberglass. Glenroy Mello MD 10/15/20 Prothrombin Time October [...] be used to monitor LMWH therapy. Contact [facility] Pharmacy for monitoring information. Urine Color January 02, 2021 6:04pm Lauren Urine Clarity January 02, 2021 6:04pm very cloudy Urine pH January 02, 2021 6:04pm 6.[address] [place] January 02, 2021 6:04pm 1.015 Urine Protein [...] Urine Culture Ur,Clean Catch No results entered [facility] 2020 7:39pm Routine Culture Umbilicus Staphylococcus Aureus-Mrsa March 16, 2021 10:27am March 20, 2021 8:34am Gram Stain Umbilicus No results entered March 16, 2021 10:27am Blood Culture Blood NO GROWTH AFTER 5 DAYS March 18, 2021 9:10pm Advance Directives Advance Directive Response Recorded Date/ Time Do we have a copy on file here at [facility]? No October 14, 2020 11:22pm Does patient have an Advanced Directive? No October 14, 2020 11:22pm Pt has a Living Will? No October 14 11:22pm Pt has a Power of De Icer Kit Assembler? No October 14, 2020 11:22pm Chief Complaint and Reason for Visit Encounter Admit Date Chief Complaint Reason for V isit Departed Emergency September 23, 2021 3:02pm abdominal compl [facility] Discharge Instructions Additional Discharge Instructions Return tomorrow morning for ultrasound of your pelvis with a full bladder at 10 AM. Your test here was normal and your urine showed some mild dehydration. We strongly encourage you to keep in contact with your battery vent plug inserter at the [facility]. It is important to keep [...] Admit/Visit Date Discharge/Departure Date Attending Provider Departed [facility] Emergency Department September 23, 2021 3:02pm September 23, 2021 7:35pm Departed [facility] Emergency Department August 26, 2021 5:22pm August 26, 2021 7:15pm Departed [facility] Emergency Department August 10, 2021 2:19pm August 10, 2021 5:11pm Departed [facility] Emergency Department August 07, 2021 11:58am August 07, 2021 5:15pm Departed [facility] Emergency Department June 27, 2021 2:30pm June 27, 2021 4:01pm [facility] March 27, 2021 11:49am March 27, 2021 2:32pm Departed [facility] Emergency Department March 20, 2021 2:33pm March 20, 2021 6:25pm [facility] March 18, 2021 6:11pm March 18, 2021 9:19pm Departed [facility] Emergency Department March 16, 2021 3:28pm March 16, 2021 10:43pm Departed [facility] Emergency Department January 29, 2021 8:55pm January 29, 2021 [facility] January 21, 2021 2:24pm January 21, 2021 4:51pm [facility] January 07, 2021 4:48pm January 07, 2021 6:55pm [facility] January 02, 2021 4:12pm January 02, 2021 7:22pm [facility] December 29, 2020 4:23pm December 29, 2020 7:13pm [facility] October 14, 2020 10:48pm [...]
--- OUTSIDE RECORDS SUMMARY | 2022-11-20 17:40 | XMS_ITS | Continuity of Care Document ---
Author Name [facility] Address [address] [place] [address] Organization [facility] Address [address] [place] [address] Care Team Providers Care Overhead Crane Inspector Name Role Phone Out of Town, [...] comment No comparison data on file at [facility]. Microcytic hypochromic anemia, consistent with iron deficiency. Smear reviewed by pathologist for software quality manager. Glenroy Mello MD 10/15/20 Prothrombin [...] be used to monitor LMWH therapy. Contact [facility] Pharmacy for monitoring information. Urine Color January 02, 2021 6:04pm Lauren Urine Clarity January 02, 2021 6:04pm very cloudy Urine pH January 02, 2021 6:04pm 6.0 Urine Specific [place] January 02, 2021 6:04pm 1.015 Urine Protein [...] Culture Ur,Clean Catch No results entered [facility] 2020 7:39pm Routine Culture Umbilicus Staphylococcus Aureus-Mrsa March 16, 2021 10:27am March 20, 2021 8:34am Gram Stain Umbilicus No results entered March 16, 2021 10:27am Blood Culture Blood NO GROWTH AFTER 5 DAYS March 18, 2021 9:10pm Advance Directives Advance Directive Response Recorded Date/ Time Do we have a copy on file here at [facility]? No October 14, 2020 11:22pm Does patient have an Advanced Directive? No October 14, 2020 11:22pm Pt has a Living Will? No October 14 11:22pm Pt has a Power of Box Estimator? No October 14, 2020 11:22pm Chief Complaint [...] Date Discharge/Departure Date Attending Provider Departed Emergency [facility] Emergency Department June 27, 2021 2:30pm June 27, 2021 4:01pm Departed Emergency [facility] Emergency Department March 27, 2021 11:49am March 27, 2021 2:32pm Departed Emergency [facility] Emergency Department March 20, 2021 2:33pm March 20, 2021 6:25pm Departed Emergency [facility] Emergency Department March 18, 2021 6:11pm March 18, 2021 9:19pm Departed Emergency [facility] Emergency Department March 16, 2021 3:28pm March 16, 2021 10:43pm Departed Emergency [facility] Emergency Department January 29, 2021 8:55pm January 29, 2021 11:08pm Departed Emergency [facility] January 21, 2021 2:24pm January 21, 2021 4:51pm Departed Emergency [facility] Emergency Department January 07, 2021 4:48pm January 07, 2021 6:55pm Departed Emergency [facility] Emergency Department January 02, [...]
--- OUTSIDE RECORDS SUMMARY | 2022-11-20 17:40 | XMS_ITS | Continuity of Care Document ---
Author Name [facility] Address [address] [place] [id number] Organization [facility] Address [address] [place] [address] Care Team Providers Care Payroll Lead Name Role Phone PCP, of Choice Primary [...] No comparison data on file at [facility]. Microcytic hypochromic anemia, consistent with iron deficiency. Smear reviewed by pathologist for quality assurance practice manager. Glenroy Mello MD 10/15/20 Prothrombin Time [...] used to monitor LMWH therapy. Contact [facility] Pharmacy for monitoring information. Urine Color January 02, 2021 6:04pm Lauren Urine Clarity January 02, 2021 6:04pm very cloudy Urine pH January 02, 2021 6:04pm 6.0 Urine Specific [place] January 02, 2021 6:04pm 1.015 Urine Protein [...] a copy on file here at [facility]? No October 14, 2020 11:22pm Does patient have an Advanced Directive? No October 14, 2020 11:22pm Pt has a Living Will? No October 14 11:22pm Pt has a Power of Designer Writer? No October 14, 2020 11:22pm Chief Complaint and Reason for Visit Encounter Admit Date Chief Complaint Reason for V isit Departed Emergency January 29, 2021 8:55pm OVARIAN C YST Hospital Discharge Instructions Additional Discharge Instructions You we re seen in the ED for abdominal pain. Your lab work did not show any acute changes. Your CT scan from [facility] showed a left hemorrhagic ovarian cyst which is likely the cause of symptoms. You can treat the pain with ibuprofen 400 mg every 6 hours as needed. You can alternate with tylenol 500 mg every 6 hours if needed. You can take the ONDANSETRON as needed for nausea and vomiting. Follow up closely with your Straightedge Machine Operator Helper to discuss your symptoms and work up so far. Return to the ED for worsening pain, heavy bleeding, dizziness or passing out, or any new or concerning symptoms. Instruction/Education Provided [facility] Discharge Medications Medication Dose Units [...] 2021 Discontinued Gabapentin 200 MG ORAL DAILY 2020 Active Hydrocodone-A cetaminophen 1 TAB ORAL [...] Date Discharge/Departure Date Attending Provider Departed Emergency [facility] Emergency Department January 29, 2021 8:55pm January 29, 2021 11:08pm Departed Emergency [facility] January 21, 2021 2:24pm January 21, 2021 4:51pm Departed Emergency [facility] Emergency Department January 07, 2021 [...] 11:00pm Blood Pressure Systolic 93 100-140 [facility] 2020 11:00pm Blood Pressure Diastolic 64 50-85 [facility] 2020 11:00pm
--- OUTSIDE RECORDS SUMMARY | 2022-11-20 17:40 | XMS_ITS | Continuity of Care Document ---
Author Name [facility] Address [address] [place] [id number] Organization [facility] Address [address] [place] [address] Care Team Providers Care Surveyor Oil Well Directional Name Role Phone Out of Town, Provider [...] ED US Abdominal Limited March 27, 2021 active Blood Culture March 18, 2021 completed Urine [...] comment No comparison data on file at [facility]. Microcytic hypochromic anemia, consistent with iron deficiency. Smear reviewed by pathologist for chemistry quality control analyst. Glenroy Mello MD 10/15/20 Prothrombin Time [...] be used to monitor LMWH therapy. Contact [facility] Pharmacy for monitoring information. Urine Color January 02, 2021 6:04pm Lauren Urine Clarity January 02, 2021 6:04pm very cloudy Urine pH January 02, 2021 6:04pm 6.0 Urine Specific [place] January 02, 2021 6:04pm 1.015 Urine Protein [...] Urine Culture Ur,Clean Catch No results entered [facility] er 2020 7:39pm Routine Culture Umbilicus Staphylococcus Aureus-Mrsa March 16, 2021 10:27am March 20, 2021 8:34am Gram Stain Umbilicus No results entered March 16, 2021 10:27am Blood Culture Blood NO GROWTH AFTER 5 DAYS March 18, 2021 9:10pm Advance Directives Advance Directive Response Recorded Date/ Time Do we have a copy on file here at [facility]? No October 14, 2020 11:22pm Does patient have an Advanced Directive? No October 14, 2020 11:22pm Pt has a Living Will? No October 14 11:22pm Pt has a Power of Electrician Manager? No October 14, 2020 11:22pm Chief [...] 2021 8:55pm January 29, 2021 11:08pm Departed [facility] Urgent [facility] January 21, 2021 2:24pm January 21, 2021 4:51pm Departed Emergency [facility] Emergency Department January 07, 2021 4:48pm January 07, 2021 6:55pm Depart Emergency [facility] Emergency [...] 2021 1:20pm Blood Pressure Systolic 106 100-140 [facility]2020 1:20pm Blood Pressure Diastolic 59 50-85 [facility] 1:20pm
--- OUTSIDE RECORDS SUMMARY | 2022-11-20 17:40 | XMS_ITS | Continuity of Care Document ---
Author Name [facility] Address [address] [place] [id number] Organization [facility] Address [address] [place] [address] Care Team Providers Care Strip Machine Operator Name Role Phone Out of [...] iron deficiency. Smear reviewed by pathologist for assistant manager quality management. Glenroy Mello MD 10/15/20 Prothrombin Time October [...] January 02, 2021 6:04pm 6.0 Urine Specific [place] January 02, 2021 6:04pm 1.015 Urine Protein [...] Culture Ur,Clean Catch No results entered [facility] 2020 7:39pm Routine Culture Umbilicus [...] 14 11:22pm Pt has a Power of Utility Operator? No October 14, 2020 11:22pm Chief Complaint and Reason for Visit Encounter Admit Date Chief Complaint Reason for V isit Departed Emergency August 26, 2021 5:22pm WEAPONS ENGINEER ISSUES Hospital Discharge Instructions Additional Discharge Instructions [...] [facility] August 26, 2021 5:22pm August 26, 2021 7:15pm Departed Emergency [facility] Emergency Department August 10, 2021 2:19pm August 10, 2021 5:11pm Departed Emergency [facility] Emergency Department August 07, 2021 11:58am August 07, 2021 5:15pm Departed Emergency [facility] [...] 2021 6:11pm March 18, 2021 9:19pm Departed [facility] Emergency Department March 16, 2021 3:28pm March 16, 2021 10:43pm Departed Emergency [facility] Emergency Department January 29, 2021 8:55pm January 29, 2021 11:08pm Departed Emergency [facility] Urgent [facility] [place] January 21, 2021 2:24pm January 21, 2021 4:51pm Departed [facility] Emergency Department January 07, 2021 4:48pm January 07, 2021 6:55pm Departed [facility] Emergency Department January 02, [...]
--- OUTSIDE RECORDS SUMMARY | 2022-11-20 17:40 | XMS_ITS | Continuity of Care Document ---
Author Name [facility] Address [address] [place] [id number] Organization [facility] Address [address] [place] [address] Care Team Providers Care Gamemaster Name Role Phone PCP, of Choice Primary Care Physician Unavailab le Allergies, Adverse Reactions, Alerts Allergen Type Severity Reaction Last Updated Verified Status haloperidol Allergy January 02, 2021 Y Acti ve ketorolac Allergy anaphylaxis December 29, 2020 Y [...] Q6H PRN For n ausea and vomiting 10 January 02, 2021 Active Discontinued Medications Medication Dose Units Route Sig Qty Start Date Di scontinued Date Status Hydrocodone-Qamar taminophen December 29, 2020 January 07, 2021 Discontinued Hydrocodone-Qamar taminophen 1 TAB ORAL Q6H PRN For pain 9 January 02, 2021 January 07, 2021 Discontinued Problem List Active Problems Medical Problem Onset Date Status Abdominal pain Active Inactive/Resolved Problems Medical Problem Onset Date Status Gastritis Inactive Pain, dental Inactive Iron deficiency anemia Inactive Abdominal pain Inactive Procedures Procedure Date [...] deficiency. Smear reviewed by pathologist for quality head. Glenroy Mello MD 10/15/20 Prothrombin Time October [...] January 02, 2021 6:04pm 6.0 Urine Specific [place] January 02, 2021 6:04pm 1.015 Urine Protein [...] 14 11:22pm Pt has a Power of Room Designer? No October 14, 2020 11:22pm Chief Complaint and Reason for Visit Encounter Admit Date Chief Complaint Reason for V isit Departed Emergency January 07, 2021 4:48pm abdominal pa in Hospital Discharge Instructions Additional Discharge Instructions As dis cussed your blood counts are improving. Your other labs are normal. Continue taking the Zofran as prescribed follow-up for your colonoscopy and return if you have any worsening symptoms. Instruction/Education Provided Nausea an d Vomiting, Adult (DC) Hospital Discharge Medications Medication Dose Units Route Sig Qty Days Order Date Status Instructions Sertraline 100 MG ORAL DAILY October 14, 2020 Active Docusate Sodium 50 MG ORAL TWICE A DAY October 14, 2020 Active Trazodone 100 MG ORAL BEDTIME October Active Hydroxyzine Hcl 100 MG ORAL BEDTIME October 14, 2020 Active Ferrous Sulfate 325 MG ORAL DAILY 14 October 15, 2020 Active Hydrocodone-Ac etaminophen December 29, 2020 Discontinued Gabapentin 200 MG ORAL DAILY Augus t 2020 Active Hydrocodone-Ac etaminophen 1 TAB ORAL Q6H PRN For pain 9 January 02, 2021 Discontinued Ondansetron 4 MG ORAL Q6H PRN For nausea and vomiting 10 January 02, 2021 Active Encounters Encounter Facility Location Admit/Visit Date Discharge/Departure Date Attending Provider Departed Emergency [facility] Emergency Department [...] Comment Living Situation Home With Family January 07, 2021 6:53pm Immunizations No known immunizations. Plan of Care Instructions Nausea and Vomiting, Adult ( DC) Social History Query Response Date Recorded Comment Alcohol Use Yes January 07, 2021 5:26pm Alcohol type hard liquor January 07, 2021 5:26pm Smoking Status Never smoker January 07, 2021 5:26pm Substance/Street Drug Use Yes January 07, 2021 5:26pm alcohol intake frequency a few times a month December 5:26pm substance use type marijuana January 07, 2021 5:26pm Query Response Start Date Stop Date Smoking Status Never smoker Vital Signs Vital Reading Result Reference Range Collection Date/Time Weight 95.254 kg January 07, 2021 4:59pm Temperature 98 F 97.6 F-99.6 F January 07 4:59pm Pulse 94 BPM 60-100 January 07, 2021 4:59pm Respiration 20 RPM 12-24 January 07, 2021 4:59pm Pulse Oximetry 100 % 95-100 January 07 4:59pm Blood Pressure Systolic 108 100-[address] 2020 4:59pm Blood Pressure Diastolic 74 50-85 Aug ust 2020 4:59pm
--- OUTSIDE RECORDS SUMMARY | 2022-11-20 17:40 | XMS_ITS | Continuity of Care Document ---
Author Name [facility] Address [address] [place] [id number] Organization [facility] Address [address] [place] [address] Care Team Providers Care House Furnishings Supervisor Name Role Phone PCP, of Choice Primary [...] January 02, 2021 6:04pm 6.0 Urine Specific [place] January 02, 2021 6:04pm 1.015 Urine Protein [...] Ur,Clean Catch No results entered [facility] 2020 7:39pm Routine Culture Umbilicus Staphylococcus Aureus-Mrsa [...] you to keep in contact with your hog worker at the [facility]. It is important to keep a [...] Location Admit/Visit Date Discharge/[facility]ure [facility], [facility] 3:02pm September 23, 2021 7:35pm Departed [facility] Emergency Department August 26, 2021 5:22pm August 26, 2021 [facility] 10, 2021 2:19pm August 10, 2021 5:11pm Departed Emergency [facility] Emergency Department August 07, 2021 11:58am August 07, 2021 5:15pm Departed Emergency [facility] Emergency Department June 27, 2021 2:30pm June 27, 2021 4:01pm Departed Emergency [facility] Emergency Department March 27, 2021 11:49am March 27, 2021 2:32pm Departed Emergency [facility] Emergency Department March 20, 2021 2:33pm March 20, 2021 6:25pm Departed Emergency [facility] Emergency Department March 18, 2021 6:11pm March 18, 2021 9:19pm Departed Emergency [facility] Emergency Department March 16, 2021 3:28pm March 16, 2021 10:43pm Departed Emergency [facility] Emergency Department January 29, 2021 8:55pm January 29, 2021 11:08pm Departed Emergency [facility] January 21, 2021 2:24pm January 21, 2021 4:51pm Departed Emergency [facility] Emergency Department January 07, 2021 4:48pm January 07, 2021 6:55pm Departed Emergency [facility] Emergency Department January 02, 2021 4:12pm January 02, 2021 7:22pm Departed Emergency [facility] Emergency Department December 29, 2020 [...] 23, 2021 7: 21pm Respiration 18 RPM 12-September 23, 2021 7: 21pm Pulse Oximetry 100 % 95-100 September 23, 2021 7:21pm Blood Pressure Systolic 105 100-140 September 23, 2021 7:21pm Blood Pressure Diastolic 70 50-85 September 23, 2021 7:21pm
--- OUTSIDE RECORDS SUMMARY | 2022-11-20 17:40 | XMS_ITS | Continuity of Care Document ---
Author Name [facility] Address [address] [place] [address] Organization [facility] Address [address] [place] [address] Care Team Providers Care Custom Furrier Name Role Phone Out of Town, Provider [...] comparison data on file at [facility]. Microcytic hypochromic anemia, consistent with iron deficiency. Smear reviewed by pathologist for quality coordinator. Glenroy Mello MD 10/15/20 Prothrombin Time October [...] to monitor LMWH therapy. Contact [facility] Pharm[facility] for monitoring information. Urine Color January 02, 2021 6:04pm Lauren Urine Clarity January 02, 2021 6:04pm very cloudy Urine pH January 02, 2021 6:04pm 6.0 Urine Specific [place] January 02, 2021 6:04pm 1.015 Urine Protein [...] Urine Culture Ur,Clean Catch No results entered [facility] 2020 7:39pm Routine Culture Umbilicus Staphylococcus Aureus-Mrsa March 16, 2021 10:27am March 20, 2021 8:34am Gram Stain Umbilicus No results entered March 16, 2021 10:27am Blood Culture Blood NO GROWTH AFTER 5 DAYS March 18, 2021 9:10pm Advance Directives Advance Directive Response Recorded Date/ Time Do we have a copy on file here at [facility]? No October 14, 2020 11:22pm Does patient have an Advanced Directive? No October 14, 2020 11:22pm Pt has a Living Will? No October 14 11:22pm Pt has a Power of Customer Training Specialist? No October 14, 2020 11:22pm Chief [...] Admit/Visit Date Discharge/Departure Date Attending Provider Departed [facility] Emergency Department August 10, 2021 2:19pm August 10, 2021 5:11pm Departed [facility] Emergency Department August 07, 2021 11:58am August 07, 2021 [facility], 2021 2:30pm June 27, 2021 4:[facility] March 27, 2021 11:49am March 27, 2021 2:[facility] March 20, 2021 2:33pm March 20, 2021 6:[facility] March 18, 2021 6:11pm March 18, 2021 9:19pm [facility] March 16, 2021 3:28pm March 16, 2021 10:[facility] January 29, 2021 8:55pm January 29, 2021 11:[facility] January 21, 2021 2:24pm January 21, 2021 4:51[facility] January 07, 2021 4:48pm January 07, 2021 6:55[facility] January 02, 2021 4:12pm January 02, 2021 7:22pm Departed [facility] Emergency Department December 29, 2020 4:23pm December 29, 2020 7:13[facility] October 14, 2020 [...] 10 5:10pm Blood Pressure Systolic 124 100-140 [facility] 2021 5:10pm Blood Pressure Diastolic 69 50-85 [facility] 2021 5:10pm
--- OUTSIDE RECORDS SUMMARY | 2022-11-20 17:40 | XMS_ITS | Continuity of Care Document ---
Author Name [facility] Address [address] [place] [address] Organization [facility] Address [address] [place] [address] Care Team Providers Care Labor Arbitrator Name Role Phone Out of Town, Provider [...] comment No comparison data on file at [facility]. Microcytic hypochromic anemia, consistent with iron deficiency. Smear reviewed by pathologist for quality assurance intern. Glenroy Mello MD 10/15/20 Prothrombin Time October [...] be used to monitor LMWH therapy. Contact [facility] [place] [facility] for monitoring information. Urine Color January 02, 2021 6:04pm Lauren Urine Clarity January 02, 2021 6:04pm very cloudy Urine pH January 02, 2021 6:04pm 6.0 Urine Specific [place] January 02, 2021 6:04pm 1.015 Urine Protein [...] Urine Culture Ur,Clean Catch No results entered [facility] 2020 7:39pm Routine Culture Umbilicus Staphylococcus Aureus-Mrsa March 16, 2021 10:27am March 20, 2021 8:34am Gram Stain Umbilicus No results entered March 16, 2021 10:27am Blood Culture Blood NO GROWTH AFTER 5 DAYS March 18, 2021 9:10pm Advance Directives Advance Directive Response Recorded Date/ Time Do we have a copy on file here at [facility] [place]? No October 14, 2020 11:22pm Does patient have an Advanced Directive? No October 14, 2020 11:22pm Pt has a Living Will? No October 14 11:22pm Pt has a Power of Bank Representative? No October 14, 2020 11:22pm Chief Complaint and Reason for Visit Encounter Admit Date Chief Complaint Reason for V isit Departed Emergency August 07, 2021 11:58am RIGHT SIDE P AIN Hospital Discharge Instructions Additional Discharge Instructions Follow -up with your PCP and GOLF BALL INSPECTOR for ongoing pain management or immediately [...] Departed Emergency [facility] Emergency Department August 07, 2021 11:58am August 07, 2021 5:15pm Departed Emergency [facility] Emergency Department June 27, 2021 2:30pm June 27, 2021 4:01pm Departed Emergency [facility] Emergency Department March 27, 2021 11:49am March 27, 2021 2:32pm Departed Emergency [facility] Emergency Department March 20, 2021 2:33pm March 20, 2021 6:25pm Departed Emergency [facility] Emergency Department March 18, 2021 6:11pm March 18, 2021 9:19pm Departed Emergency [facility] Emergency Department March 16, 2021 3:28pm March 16, 2021 10:43pm Departed Emergency [facility] Emergency Department January 29, 2021 8:55pm January 29, 2021 11:08pm Departed [facility] Urgent St [...] 07 5:10pm Blood Pressure Systolic 99 100-140 [facility] 2021 5:10pm Blood Pressure Diastolic 65 50-85 [facility] 2021 5:10pm
--- OUTSIDE RECORDS SUMMARY | 2022-11-20 17:40 | XMS_ITS | Continuity of Care Document ---
Author Name [facility] Address [address] [place] [id number] Organization [facility] Address [address] [place] [id number] Care Team Providers Care Event Specialist Product Demonstrator Name Role Phone Out of Town, Provider [...] No comparison data on file at [facility]. Microcytic hypochromic anemia, consistent with [...] used to monitor LMWH therapy. Contact [facility] Pharmacy for monitoring information. Urine Color January 02, 2021 6:04pm Lauren Urine Clarity January 02, 2021 6:04pm very cloudy Urine pH January 02, 2021 6:04pm 6.0 Urine Specific [place] January 02, 2021 6:04pm 1.015 Urine Protein [...] Urine Culture Ur,Clean Catch No results entered [facility] 2020 7:39pm Routine Culture Umbilicus Staphylococcus Aureus-Mrsa March 16, 2021 10:27am March 20, 2021 8:34am Gram Stain Umbilicus No results entered March 16, 2021 10:27am Blood Culture Blood NO GROWTH AFTER 5 DAYS March 18, 2021 9:10pm Advance Directives Advance Directive Response Recorded Date/ Time Do we have a copy on file here at [facility]? No October 14, 2020 11:22pm Does patient have an Advanced Directive? No October 14, 2020 11:22pm Pt has a Living Will? No October 14 11:22pm Pt has a Power of Acct Exec? 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 Hospital Discharge Instructions Additional Discharge Instructions [...] Date Discharge/Departure Date Attending Provider Departed Emergency [facility] Emergency Department August 26, 2021 5:22pm August 26, 2021 7:15pm Departed Emergency [facility] Emergency Department August 10, 2021 2:19pm August 10, 2021 5:11pm Departed Emergency [facility] Emergency Department August 07, 2021 11:58am August 07, 2021 5:15pm Departed Emergency [facility] Emergency Department June 27, 2021 2:30pm June 27, 2021 4:01pm Departed Emergency [facility] Emergency Department March 27, 2021 11:49am March 27, 2021 2:32pm Departed Emergency [facility] Emergency Department March 20, 2021 2:33pm March 20, 2021 6:25pm Departed Emergency [facility] Emergency Department March 18, 2021 6:11pm March 18, 2021 9:19pm Departed [facility] Emergency Department March 16, 2021 3:28pm March 16, 2021 10:43pm Departed Emergency [facility] Emergency Department January 29, 2021 8:55pm January 29, 2021 11:08pm Departed Emergency [facility]gent [facility] [place] January 21, 2021 2:24pm January 21, 2021 4:51pm Departed [facility] Emergency Department January 07, 2021 4:48pm January 07, 2021 6:55pm Departed [facility] Emergency Department January 02, 2021 4:12pm January 02, 2021 7:22pm Departed [facility] Emergency Department December 29, 2020 4:23pm December 29, 2020 7:13pm Departed Emergency [facility] Emergency Department October 14, 2020 [...]
--- OUTSIDE RECORDS SUMMARY | 2022-11-20 17:40 | XMS_ITS | Continuity of Care Document ---
Author Name [facility] Address [address] [place] [address] Organization [facility] Address [address] [place] [address] Care Team Providers Care Asic Verification Engineer Name Role Phone PCP, of Choice Primary [...] Smear reviewed by pathologist for quality assurance nurse. Glenroy Mello MD 10/15/20 Prothrombin Time October [...] January 02, 2021 6:04pm 6.0 Urine Specific [place] January 02, 2021 6:04pm 1.015 Urine Protein [...] Ur,Clean Catch No results entered [facility] 2020 7:39pm Gram Stain Umbilicus No results [...] 14 11:22pm Pt has a Power of Grain Roaster? No October 14, 2020 11:22pm Chief Complaint [...] Date Discharge/Departure Date Attending Provider Departed Emergency [facility] Emergency Department March 18, 2021 6:11pm March 18, 2021 9:19pm Departed Emergency [facility] Emergency Department March 16, 2021 3:28pm March 16, 2021 10:43pm Departed Emergency [facility] Emergency Department January 29, 2021 8:55pm January 29, 2021 11:08pm Departed Emergency [facility] [place] January 21, 2021 2:24pm January 21, 2021 4:51pm Departed Emergency [facility] Emergency Department January 07, 2021 4:48pm January 07, 2021 6:55pm Departed Emergency [facility] Emergency Department January 02, 2021 4:12pm January 02, 2021 7:22pm Departed Emergency [facility] Emergency Department December 29, 2020 4:23pm December 29, 2020 7:13pm Departed Emergency [facility] Emergency Department October 14, 2020 [...] 60-100 March 18 8:33pm Respiration 16 RPM 12-24 March 18 8:33pm Pulse Oximetry 99 % 95-100 March 18 8:33pm Blood Pressure Systolic 100 100-140 [facility]2020 8:33pm Blood Pressure Diastolic 58 50-85 [facility]2020 8:33pm
--- OUTSIDE RECORDS SUMMARY | 2022-11-20 17:40 | XMS_ITS | Continuity of Care Document ---
Author Name [facility] Address [address] [place] [address] Organization [facility] Address [address] [place] [address] Care Team Providers Care Men'S Furnishings Salesperson Name Role Phone PCP, of Choice Primary [...] comment No comparison data on file at [facility]. Microcytic hypochromic anemia, consistent with iron deficiency. [...] be used to monitor LMWH therapy. Contact [facility] Pharmacy for monitoring information. Urine Color January 02, 2021 6:04pm Lauren Urine Clarity January 02, 2021 6:04pm very cloudy Urine pH January 02, 2021 6:04pm 6.0 Urine Specific [place] January 02, 2021 6:04pm 1.015 Urine Protein [...] have a copy on file here at [facility]? No October 14, 2020 11:22pm Does patient have an Advanced Directive? No October 14, 2020 11:22pm Pt has a Living Will? No October 14 11:22pm Pt has a Power of Client Customer Manager? No October 14, 2020 11:22pm Chief Complaint and Reason for Visit Encounter Admit Date Chief Complaint Reason for V isit Registered Emergency March 16, 2021 3:28pm POST OP C [facility] Hospital Discharge Instructions No known hospital discharge instructions. Hospital Discharge Medications Medication Dose Units Route [...] Location Admit/Visit Date Discharge/Departure Date Attending Provider Registered Emergency [facility] Emergency Department March 16, 2021 3:28pm Departed Emergency [facility] Emergency Department January 29, 2021 8:55pm January 29, 2021 11:08pm Departed Emergency [facility] January 21, 2021 2:24pm January 21, 2021 [...] Living Situation Home With Significant Other March 16, 2021 4:00pm Immunizations No known immunizations. Plan [...] 97.6 F-99.6 F March 16 3:55pm Pulse 69 BPM 60-100 March 16 6:20pm Respiration 18 RPM 12-24 March 16 6:20pm Pulse Oximetry 98 % 95-100 March 16 6:20pm Blood Pressure Systolic 120 100-140 [facility]2020 6:20pm Blood Pressure Diastolic 63 50-85 [facility] 2020 6:20pm
--- OUTSIDE RECORDS SUMMARY | 2022-11-20 17:41 | XMS_ITS | Continuity of Care Document ---
Author Name [facility] Address [address] [place] [address] [facility] Address [address] [place] [address] Care Team Providers Care Ingot Caster Name Role Phone Out of Town, Provider [...] comparison data on file at [facility]. Microcytic hypochromic anemia, consistent with [...] to monitor LMWH therapy. Contact [facility] Pharmacy for monitoring information. Urine Color January 02, 2021 6:04pm Lauren Urine Clarity January 02, 2021 6:04pm very cloudy Urine pH January 02, 2021 6:04pm 6.0 Urine Specific [place] January 02, 2021 6:04pm 1.015 Urine Protein [...] Culture Ur,Clean Catch No results entered [facility] 2020 7:39pm Routine Culture Umbilicus Staphylococcus Aureus-Mrsa March 16, 2021 10:27am March 20, 2021 8:34am Gram Stain Umbilicus No results entered March 16, 2021 10:27am Blood Culture Blood NO GROWTH AFTER 5 DAYS March 18, 2021 9:10pm Advance Directives Advance Directive Response Recorded Date/ Time Do we have a copy on file here at [facility]? No October 14, 2020 11:22pm Does patient have an Advanced Directive? No October 14, 2020 11:22pm Pt has a Living Will? No October 14 11:22pm Pt has a Power of Orthodontic Lab Technician? No October 14, 2020 11:22pm Chief [...] Admit/Visit Date Discharge/Departure Date Attending Provider Departed [facility] Emergency Department August 10, 2021 2:19pm August 10, 2021 5:11pm Departed [facility] Emergency Department August 07, 2021 11:58am [...] 29, 2021 8:55pm January 29, [facility] January 21, 2021 [...] 10 5:10pm Blood Pressure Systolic 124 100-140 [facility] 2021 5:10pm Blood Pressure Diastolic 69 50-85 [facility] 2021 5:10pm
--- OUTSIDE RECORDS SUMMARY | 2022-11-20 17:41 | XMS_ITS | Continuity of Care Document ---
Author Name [facility] Address [address] [place] [address] Organization [facility] Address [address] [place] [address] Care Team Providers Care Inshore Undersea Warfare Officer Name Role Phone Out of Town, Provider [...] 2020 Active Gabapentin 200 MG ORAL DAILY t 2020 Active Ondansetron 4 MG ORAL Q6H PRN For nausea and vomiting 10 January 02, 2021 Active Oxycodone MG Novemb er 2020 Active Fluticasone Propion-Salmeterol [Advair Hfa] INHALATION b er 2020 Active Sulfamethoxazole-T rimethoprim [Bactrim Ds] 1 TAB [...] March 20, 2021 March 24, 2021 Discontinued Problem List Inactive/Resolved Problems Medical [...] Date Status Blood Culture March 18, 2021 completed Urine [...] No comparison data on file at [facility]. Microcytic hypochromic anemia, consistent with iron deficiency. Smear reviewed by pathologist for quality control tester. Glenroy Mello MD 10/15/20 Prothrombin Time [...] used to monitor LMWH therapy. Contact [facility] Pharmacy for monitoring information. Urine Color January 02, 2021 6:04pm Lauren Urine Clarity January 02, 2021 6:04pm very cloudy Urine pH January 02, 2021 6:04pm 6.0 Urine Specific [place] January 02, 2021 6:04pm 1.015 Urine Protein [...] Ur,Clean Catch No results entered [facility] 2020 7:39pm Routine Culture Umbilicus Staphylococcus Aureus-Mrsa March 16, 2021 10:27am March 20, 2021 8:34am Gram Stain Umbilicus No results entered March 16, 2021 10:27am Blood Culture Blood NO GROWTH AFTER 5 DAYS March 18, 2021 9:10pm Advance Directives Advance Directive Response Recorded Date/ Time Do we have a copy on file here at [facility]? No October 14, 2020 11:22pm Does patient have an Advanced Directive? No October 14, 2020 11:22pm Pt has a Living Will? No October 14 11:22pm Pt has a Power of Automobile Body Repair Chief? No October 14, 2020 11:22pm Chief Complaint and Reason for Visit Encounter Admit Date Chief Complaint Reason for V isit Departed Emergency March 20, 2021 2:33pm HEAVY VAG B [facility] Discharge Instructions Additional Discharge Instructions Your [...] pain, or any concerns. We are presciribg genovevafran to help with vomiting. You may have [...] Admit/Visit Date Discharge/Departure Date Attending Provider Departed [facility] Emergency Department March 20, 2021 2:33pm March 20, 2021 6:25pm Departed Emergency [facility] Emergency Department March 18, 2021 6:11pm March 18, 2021 9:19pm Departed [facility] Emergency Department March 16, 2021 3:28pm March 16, 2021 10:[facility] January 29, 2021 8:55pm January 29, [facility], [facility] 2:24pm January 21, [...] 021 5:00pm Blood Pressure Systolic 124 100-140 [facility] 5:00pm Blood Pressure Diastolic 57 50-85 [facility] 2020 5:00pm
--- OUTSIDE RECORDS SUMMARY | 2022-11-20 17:41 | XMS_ITS | Continuity of Care Document ---
Author Name [facility] Address [address] [place] [address] Organization [facility] Address [address] [place] [address] Care Team Providers Care Blaster Helper Name Role Phone Out of Town, [...] comment No comparison data on file at [facility]. Microcytic hypochromic anemia, consistent with iron deficiency. [...] be used to monitor LMWH therapy. Contact [facility] Pharmacy for monitoring information. Urine Color January 02, 2021 6:04pm Lauren Urine Clarity January 02, 2021 6:04pm very cloudy Urine pH January 02, 2021 6:04pm 6.0 Urine Specific [place] January 02, 2021 6:04pm 1.015 Urine Protein [...] Urine Culture Ur,Clean Catch No results entered [facility] 2020 7:39pm Gram Stain Umbilicus No results entered March 16, 2021 10:27am Advance Directives Advance Directive Response Recorded Date/ Time Do we have a copy on file here at [facility]? No October 14, 2020 11:22pm Does patient have an Advanced Directive? No October 14, 2020 11:22pm Pt has a Living Will? No October 14 11:22pm Pt has a Power of Land Degradation Analyst? No October 14, 2020 11:22pm Chief Complaint and Reason for Visit Encounter Admit Date Chief Complaint Reason for V barry Registered Emergency March 18, 2021 6:11pm ABDOMINAL PAIN Hospital Discharge Instructions Additional Discharge Instructions Seen t sandra for postop pain and bleeding. I do not see an appreciable drop in your blood counts fortunately. I do not find any evidence of infection. Today we have treated you for your pain and nausea and given you IV fluids. No change from previous plan to follow-up with [employer] as discussed. If you have persistent vomiting, [...] Discontinue d Gabapentin 200 MG ORAL DAILY Decus t 2020 Active Hydrocodone- Acetaminophe n 1 [...] Date Discharge/Departure Date Attending Provider Registered Emergency [facility] Emergency Department March 18, 2021 6:11pm Departed Emergency [facility] Emergency Department March 16, 2021 3:28pm March 16, 2021 10:43pm Departed Emergency [facility] Emergency Department January 29, 2021 8:55pm January 29, 2021 11:08pm Departed [facility] January [...] Comment Living Situation Home With Family March 18, 2021 6:29pm Immunizations No known immunizations. Plan of Care [...] 18 8:33pm Blood Pressure Systolic 100 100-140 [facility] 2020 8:33pm Blood Pressure Diastolic 58 50-85 Nov emb2020 8:33pm
--- OUTSIDE RECORDS SUMMARY | 2022-11-20 17:41 | XMS_ITS | Continuity of Care Document ---
Author Name [facility] Address [address] [place] [address] [facility] Address [address] [place] [address] Care Team Providers Care Soft Tile Setter Name Role Phone PCP, of Choice Primary [...] comment No comparison data on file at [facility]. Microcytic hypochromic anemia, consistent with iron deficiency. Smear reviewed by pathologist for manager quality compliance. Glenroy Mello MD 10/15/20 Prothrombin Time October [...] be used to monitor LMWH therapy. Contact [facility] Pharmacy for monitoring information. Urine Color January 02, 2021 6:04pm Lauren Urine Clarity January 02, 2021 6:04pm very cloudy Urine pH January 02, 2021 6:04pm 6.0 Urine Specific [place] January 02, 2021 6:04pm 1.015 Urine Protein [...] have a copy on file here at [facility]? No October 14, 2020 11:22pm Does patient have an Advanced Directive? No October 14, 2020 11:22pm Pt has a Living Will? No October 14 11:22pm Pt has a Power of Maintenance Trainer? No October 14, 2020 11:22pm Chief Complaint and Reason for Visit Encounter Admit Date Chief Complaint Reason for V isit Departed Emergency January 29, 2021 8:55pm OVARIAN C T Hospital Discharge Instructions Additional Discharge Instructions You we re seen in the ED for abdominal pain. Your lab work did not show any acute changes. Your CT scan from [facility] showed a left hemorrhagic ovarian cyst which is likely the cause of symptoms. You can treat the pain with ibuprofen 400 mg every 6 hours as needed. You can alternate with tylenol 500 mg every 6 hours if needed. You can take the ONDANSETRON as needed for nausea and vomiting. Follow up closely with your Early Childhood Worker to discuss your symptoms and work up [...] Admit/Visit Date Discharge/Departure Date Attending Provider Departed [facility] Emergency Department January 29, 2021 8:55pm January 29, 2021 11:08pm Departed Emergency [facility] January 21, 2021 2:24pm January 21, 2021 [...] 11:00pm Blood Pressure Diastolic 64 50-85 [facility] 2020 11:00pm
--- OUTSIDE RECORDS SUMMARY | 2022-11-20 17:41 | XMS_ITS | Continuity of Care Document ---
Author Name [facility] Address [address] [place] [address] Organization [facility] Address [address] [place] [address] Care Team Providers Care Carton Filling Machine Operator Name Role Phone Out of [...] comment No comparison data on file at [facility]. Microcytic hypochromic anemia, consistent with iron deficiency. Smear reviewed by pathologist for manager quality improvement. Glenroy Mello MD 10/15/20 Prothrombin Time October [...] be used to monitor LMWH therapy. Contact [facility] Pharmacy for monitoring information. Urine Color January 02, 2021 6:04pm Lauren Urine Clarity January 02, 2021 6:04pm very cloudy Urine pH January 02, 2021 6:04pm 6.0 Urine Specific [place] January 02, 2021 6:04pm 1.015 Urine Protein [...] have a copy on file here at [facility]? No October 14, 2020 11:22pm Does patient have an Advanced Directive? No October 14, 2020 11:22pm Pt has a Living Will? No October 14 11:22pm Pt has a Power of Support Services Specialist? No October 14, 2020 11:22pm Chief Complaint and Reason for Visit Encounter Admit Date Chief Complaint Reason for V isit Departed Emergency August 26, 2021 5:22pm EMPLOYEE RELATIONS REPRESENTATIVE ISSUES Hospital Discharge Instructions Additional Discharge Instructions [...] 2021 Active Omeprazole 20 MG ORAL DAILY [id number] Discontinue d Cephalexin 500 MG ORAL FOUR [...] Emergency [facility] Emergency Department August 26, 2021 5:22pm August 26, 2021 7:15pm Departed Emergency [facility] Emergency Department August 10, 2021 2:19pm August 10, 2021 5:11pm Departed Emergency [facility] Emergency Department [...] 2021 6:11pm March 18, 2021 9:19pm Departed [facility] Emergency Department March 16, 2021 3:28pm March 16, 2021 10:43pm Departed Emergency [facility] Emergency Department January 29, 2021 8:55pm January 29, 2021 11:08pm Departed Emergency [facility] [place] January 21, 2021 2:24pm January 21, 2021 4:51pm Departed [facility] Emergency Department January 07, 2021 4:48pm January 07, 2021 6:55pm Departed [facility] Emergency Department January 02, [...]
--- OUTSIDE RECORDS SUMMARY | 2022-11-20 17:41 | XMS_ITS | Continuity of Care Document ---
Author Name [facility] Address [address] [place] [address] [facility] Address [address] [place] [address] Care Team Providers Care Aircraft Electronics Technical Officer Name Role Phone Out of Town, [...] comment No comparison data on file at [facility]. Microcytic hypochromic anemia, consistent with iron deficiency. Smear reviewed by pathologist for manager quality. Glenroy Mello MD 10/15/20 Prothrombin Time October [...] be used to monitor LMWH therapy. Contact [facility] Pharmacy for monitoring information. Urine Color January 02, 2021 6:04pm Lauren Urine Clarity January 02, 2021 6:04pm very cloudy Urine pH January 02, 2021 6:04pm 6.0 Urine Specific [place] January 02, 2021 6:04pm 1.015 Urine Protein [...] Ur,Clean Catch No results entered [facility] 2020 7:39pm Routine Culture Umbilicus Staphylococcus Aureus-Mrsa March 16, 2021 10:27am March 20, 2021 8:34am Gram Stain Umbilicus No results entered March 16, 2021 10:27am Blood Culture Blood NO GROWTH AFTER 5 DAYS March 18, 2021 9:10pm Advance Directives Advance Directive Response Recorded Date/ Time Do we have a copy on file here at [facility]? No October 14, 2020 11:22pm Does patient have an Advanced Directive? No October 14, 2020 11:22pm Pt has a Living Will? No October 14 11:22pm Pt has a Power of Disciplinary Hearing Officer? No October 14, 2020 11:22pm Chief Complaint and Reason for Visit Encounter Admit Date Chief Complaint Reason for V isit Departed Emergency August 07, 2021 11:58am RIGHT SIDE P AIN Hospital Discharge Instructions Additional Discharge Instructions Follow -up with your PCP and DIGITAL MEDIA REPRESENTATIVE for ongoing pain management or immediately here [...] 07 5:10pm Blood Pressure Systolic 99 100-140 [facility] 2021 5:10pm Blood Pressure Diastolic 65 50-85 [facility] 2021 5:10pm
--- OUTSIDE RECORDS SUMMARY | 2022-11-20 17:41 | XMS_ITS | Continuity of Care Document ---
Author Name [facility] Address [address] [place] [address] Organization [facility] Address [address] [place] [address] Care Team Providers Care Hedis Manager Name Role Phone Out of Town, Provider [...] comment No comparison data on file at [facility]. Microcytic hypochromic anemia, consistent with iron deficiency. Smear reviewed by pathologist for clinical quality assurance associate. Glenroy Mello MD 10/15/20 Prothrombin Time October [...] be used to monitor LMWH therapy. Contact [facility] Pharmacy for monitoring information. Urine Color January 02, 2021 6:04pm Lauren Urine Clarity January 02, 2021 6:04pm very cloudy Urine pH January 02, 2021 6:04pm 6.0 Urine Specific [place] January 02, 2021 6:04pm 1.015 Urine Protein [...] No results entered [facility] 1 7:39pm Routine Culture Umbilicus Staphylococcus Aureus-Mrsa March 16, 2021 10:27am March 20, 2021 8:34am Gram Stain Umbilicus No results entered March 16, 2021 10:27am Blood Culture Blood NO GROWTH AFTER 5 DAYS March 18, 2021 9:10pm Advance Directives Advance Directive Response Recorded Date/ Time Do we have a copy on file here at [facility]? No October 14, 2020 11:22pm Does patient have an Advanced Directive? No October 14, 2020 11:22pm Pt has a Living Will? No October 14 11:22pm Pt has a Power of Water Filtration Technician? No October 14, 2020 11:22pm Chief [...] 11:49am March 27, 2021 2:32pm Departed Emergency [facility] Emergency Department March 20, 2021 2:33pm March 20, 2021 6:25pm Departed Emergency [facility] Emergency Department March 18, 2021 6:11pm March 18, 2021 9:19pm Departed [facility] Emergency Department March 16, 2021 3:28pm March 16, 2021 [facility] January 29, 2021 8:55pm January 29, 2021 11:08pm Departed [facility] Urgent [facility] January 21, 2021 2:24pm January 21, 2021 4:51pm Departed Emergency [facility] Emergency Department January 07, 2021 4:48pm January 07, 2021 6:55pm Depart Emergency [facility] Emergency Department January 02, 2021 4:12pm January 02, 2021 7:22pm Departed Emergency [facility] Emergency Department December 29, 2020 4:23pm December 29, 2020 7:13pm Departed Emergency [facility] Emergency Department October 14, 2020 [...] 2021 1:20pm Blood Pressure Systolic 106 100-140 [facility]2020 1:20pm Blood Pressure Diastolic 59 50-85 Mar [facility]2020 1:20pm
--- OUTSIDE RECORDS SUMMARY | 2022-11-20 17:41 | XMS_ITS | Continuity of Care Document ---
Author Name [facility] Address [address] [place] [address] Organization [facility] Address [address] [place] [address] Care Team Providers Care Wool Sacker Name Role Phone Out of Town, Provider [...] No comparison data on file at [facility]. Microcytic hypochromic anemia, consistent with iron deficiency. [...] used to monitor LMWH therapy. Contact [facility] Pharmacy for monitoring information. Urine Color January 02, 2021 6:04pm Lauren Urine Clarity January 02, 2021 6:04pm very cloudy Urine pH January 02, 2021 6:04pm 6.0 Urine Specific [place] January 02, 2021 6:04pm 1.015 Urine Protein [...] Ur,Clean Catch No results entered [facility] 1 7:39pm Routine Culture Umbilicus Staphylococcus Aureus-Mrsa March 16, 2021 10:27am March 20, 2021 8:34am Gram Stain Umbilicus No results entered March 16, 2021 10:27am Blood Culture Blood NO GROWTH AFTER 5 DAYS March 18, 2021 9:10pm Advance Directives Advance Directive Response Recorded Date/ Time Do we have a copy on file here at [facility]? No October 14, 2020 11:22pm Does patient have an Advanced Directive? No October 14, 2020 11:22pm Pt has a Living Will? No October 14 11:22pm Pt has a Power of Director Of State? No October 14, 2020 11:22pm Chief Complaint [...] Admit/Visit Date Discharge/Departure Date Attending Provider Departed [facility] Emergency Department March 27, 2021 11:49am March 27, 2021 2:32pm Departed Emergency [facility] Emergency Department March 20, 2021 2:33pm March 20, 2021 6:25pm Departed Emergency [facility] Emergency Department March 18, 2021 6:11pm March 18, 2021 9:19pm Departed [facility] Emergency Department March 16, 2021 3:28pm [facility] 16, [facility] 29, 2021 8:55pm January 29, 2021 11:08pm Departed [facility] Urgent [facility] January 21, 2021 2:24pm January 21, 2021 4:51pm Departed Emergency [facility] Emergency Department January 07, 2021 4:48pm January 07, 2021 6:55pm Depart Emergency [facility] Emergency Department January 02, 2021 [...] 2021 1:20pm Blood Pressure Systolic 106 100-140 [facility]2020 1:20pm Blood Pressure Diastolic 59 50-85 [facility]2020 1:20pm
--- OUTSIDE RECORDS SUMMARY | 2022-11-20 17:41 | XMS_ITS | Continuity of Care Document ---
Author Name [facility] Address [address] [place] [address] Organization [facility] Address [address] [place] [address] Care Team Providers Care Trash Hauler Name Role Phone Out of Town, Provider [...] No comparison data on file at [facility]. Microcytic hypochromic anemia, [...] used to monitor LMWH therapy. Contact [facility] Pharmacy for monitoring information. Urine Color January 02, 2021 6:04pm Lauren Urine Clarity January 02, 2021 6:04pm very cloudy Urine pH January 02, 2021 6:04pm 6.0 Urine Specific [place] January 02, 2021 6:04pm 1.015 Urine Protein [...] Urine Culture Ur,Clean Catch No results entered [facility] 2020 7:39pm Routine Culture Umbilicus Staphylococcus Aureus-Mrsa March 16, 2021 10:27am March 20, 2021 8:34am Gram Stain Umbilicus No results entered March 16, 2021 10:27am Blood Culture Blood NO GROWTH AFTER 5 DAYS March 18, 2021 9:10pm Advance Directives Advance Directive Response Recorded Date/ Time Do we have a copy on file here at [facility]? No October 14, 2020 11:22pm Does patient have an Advanced Directive? No October 14, 2020 11:22pm Pt has a Living Will? No October 14 11:22pm Pt has a Power of Mixer Driver? No October 14, 2020 11:22pm Chief Complaint [...] 29, 2021 8:55pm January 29, [facility] January 21, [...] 10 5:10pm Blood Pressure Systolic 124 100-140 [facility] 2021 5:10pm Blood Pressure Diastolic 69 50-85 [facility] 2021 5:10pm
--- OUTSIDE RECORDS SUMMARY | 2022-11-20 17:41 | XMS_ITS | Continuity of Care Document ---
Author Name [facility] Address [address] [place] [address] Organization [facility] Address [address] [place] [address] Care Team Providers Care Composite Boat Builder Name Role Phone Out of Town, Provider [...] No comparison data on file at [facility]. Microcytic hypochromic anemia, consistent with iron deficiency. Smear reviewed by pathologist for assistant quality manager. Glenroy Mello MD 10/15/20 Prothrombin [...] used to monitor LMWH therapy. Contact [facility] Pharmacy for monitoring information. Urine Color January 02, 2021 6:04pm Lauren Urine Clarity January 02, 2021 6:04pm very cloudy Urine pH January 02, 2021 6:04pm 6.0 Urine Specific [place] January 02, 2021 6:04pm 1.015 Urine Protein [...] Ur,Clean Catch No results entered [facility] 2020 7:39pm Routine Culture Umbilicus Staphylococcus Aureus-Mrsa March 16, 2021 10:27am March 20, 2021 8:34am Gram Stain Umbilicus No results entered March 16, 2021 10:27am Blood Culture Blood NO GROWTH AFTER 5 DAYS March 18, 2021 9:10pm Advance Directives Advance Directive Response Recorded Date/ Time Do we have a copy on file here at [facility]? No October 14, 2020 11:22pm Does patient have an Advanced Directive? No October 14, 2020 11:22pm Pt has a Living Will? No October 14 11:22pm Pt has a Power of Music Pastor? No October 14, 2020 11:22pm Chief Complaint [...] Departed [facility] Emergency Department March 27, 2021 [...] 2021 8:55pm January 29, 2021 11:08pm Departed [facility] Urgent [facility] January 21, 2021 2:24pm January 21, [...] 2021 1:20pm Blood Pressure Systolic 106 100-140 [facility]2020 1:20pm Blood Pressure Diastolic 59 50-85 [facility]2020 1:20pm
--- OUTSIDE RECORDS SUMMARY | 2022-11-20 17:41 | XMS_ITS | Continuity of Care Document ---
Author Name [facility] Address [address] [place] [address] Organization [facility] Address [address] [place] [address] Care Team Providers Care Pipe Organ Mechanic Name Role Phone Out of Town, Provider [...] comment No comparison data on file at [facility]. Microcytic hypochromic anemia, consistent with iron deficiency. Smear reviewed by pathologist for quality control assistant. Glenroy Mello MD 10/15/20 Prothrombin Time [...] be used to monitor LMWH therapy. Contact [facility] Pharmacy for monitoring information. Urine Color January 02, 2021 6:04pm Lauren Urine Clarity January 02, 2021 6:04pm very cloudy Urine pH January 02, 2021 6:04pm 6.0 Urine Specific [place] January 02, 2021 6:04pm 1.015 Urine Protein [...] Culture Ur,Clean Catch No results entered [facility] 2020 7:39pm Routine Culture Umbilicus Staphylococcus Aureus-Mrsa March 16, 2021 10:27am March 20, 2021 8:34am Gram Stain Umbilicus No results entered March 16, 2021 10:27am Blood Culture Blood NO GROWTH AFTER 5 DAYS March 18, 2021 9:10pm Advance Directives Advance Directive Response Recorded Date/ Time Do we have a copy on file here at [facility]? No October 14, 2020 11:22pm Does patient have an Advanced Directive? No October 14, 2020 11:22pm Pt has a Living Will? No October 14 11:22pm Pt has a Power of Diet Clerk? No October 14, 2020 11:22pm Chief Complaint and Reason for Visit Encounter Admit Date Chief Complaint Reason for V isit Departed Emergency August 07, 2021 11:58am RIGHT SIDE P AIN Hospital Discharge Instructions Additional Discharge Instructions Follow -up with your PCP and LEASE EXAMINER for ongoing pain management or immediately here [...] Date Discharge/Departure Date Attending Provider Departed Emergency [facility] Emergency Department August 07, 2021 11:58am August 07, 2021 5:15pm Departed Emergency [facility] Emergency Department June 27, 2021 2:30pm June 27, 2021 4:01pm Departed Emergency [facility] Emergency Department March 27, 2021 11:49am March 27, 2021 2:32pm Departed Emergency [facility] Emergency Department March 20, 2021 2:33pm March 20, 2021 6:25pm Departed Emergency [facility] Emergency Department March 18, 2021 6:11pm March 18, 2021 9:19pm Departed Emergency [facility] Emergency Department March 16, 2021 3:28pm March 16, 2021 10:43pm Departed Emergency [facility] Emergency Department January 29, 2021 8:55pm January 29, 2021 11:08pm Departed [facility] January 21, 2021 2:24pm January 21, 2021 4:51pm Departed Emergency [facility] Emergency Department January 07, 2021 4:48pm January 07, 2021 6:55pm Departed Emergency [facility] Emergency Department January 02, 2021 4:12pm January 02, 2021 7:22pm Departed Emergency [facility] Emergency Department December 29, 2020 4:23pm December 29, 2020 7:13pm Departed Emergency [facility] Emergency Department October 14, [...] 07 5:10pm Blood Pressure Systolic 99 100-140 [facility] 2021 5:10pm Blood Pressure Diastolic 65 50-85 [facility] 2021 5:10pm
--- OUTSIDE RECORDS SUMMARY | 2022-11-20 17:41 | XMS_ITS | Continuity of Care Document ---
Author Name [facility] Address [address] [place] [address] Organization [facility] Address [address] [place] [address] Care Team Providers Care Sales Office Manager Name Role Phone Out of Town, [...] comment No comparison data on file at [facility]. Microcytic hypochromic anemia, consistent with iron deficiency. Smear reviewed by pathologist for associate quality engineer. Glenroy Mello MD 10/15/20 Prothrombin [...] be used to monitor LMWH therapy. Contact [facility] Pharmacy for monitoring information. Urine Color January 02, 2021 6:04pm Lauren Urine Clarity January 02, 2021 6:04pm very cloudy Urine pH January 02, 2021 6:04pm 6.0 Urine Specific [place] January 02, 2021 6:04pm 1.015 Urine Protein [...] Urine Culture Ur,Clean Catch No results entered [facility] 2020 7:39pm Routine Culture Umbilicus Staphylococcus Aureus-Mrsa March 16, 2021 10:27am March 20, 2021 8:34am Gram Stain Umbilicus No results entered March 16, 2021 10:27am Blood Culture Blood NO GROWTH AFTER 5 DAYS March 18, 2021 9:10pm Advance Directives Advance Directive Response Recorded Date/ Time Do we have a copy on file here at [facility]? No October 14, 2020 11:22pm Does patient have an Advanced Directive? No October 14, 2020 11:22pm Pt has a Living Will? No October 14 11:22pm Pt has a Power of Full Stack Engineer? 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
--- OUTSIDE RECORDS SUMMARY | 2022-11-20 17:41 | XMS_ITS | Continuity of Care Document ---
Author Name [facility] Address [address] [place] [address] Organization [facility] Address [address] [place] [address] Care Team Providers Care Automobile Damage Appraiser Name Role Phone Out of Town, Provider [...] Active Tizanidine 4 MG ORAL As Directed [place] N For Muscle Spasm August 07, 2021 Active Discontinued Medications Medication [...] comment No comparison data on file at [facility]. Microcytic hypochromic anemia, consistent with iron deficiency. Smear reviewed by pathologist for plant quality manager. Glenroy Mello MD 10/15/20 Prothrombin [...] be used to monitor LMWH therapy. Contact [facility] Pharmacy for monitoring information. Urine Color January 02, 2021 6:04pm Lauren Urine Clarity January 02, 2021 6:04pm very cloudy Urine pH January 02, 2021 6:04pm 6.0 Urine Specific [place] January 02, 2021 6:04pm 1.015 Urine Protein [...] Ur,Clean Catch No results entered [facility] 2020 7:39pm Routine Culture Umbilicus Staphylococcus Aureus-Mrsa March 16, 2021 10:27am March 20, 2021 8:34am Gram Stain Umbilicus No results entered March 16, 2021 10:27am Blood Culture Blood NO GROWTH AFTER 5 DAYS March 18, 2021 9:10pm Advance Directives Advance Directive Response Recorded Date/ Time Do we have a copy on file here at [facility]? No October 14, 2020 11:22pm Does patient have an Advanced Directive? No October 14, 2020 11:22pm Pt has a Living Will? No October 14 11:22pm Pt has a Power of Corsage Maker? No October 14, 2020 11:22pm Chief Complaint and Reason for Visit Encounter Admit Date Chief Complaint Reason for V isit Registered Emergency August 07, 2021 11:58am RIGHT SIDE PAIN Hospital Discharge Instructions No known hospital discharge [...] Discontinue d Montelukast 10 MG ORAL DAILY Febr uary 2021 Active Omeprazole 20 MG ORAL DAILY Febru 2021 Discontinue d Cephalexin 500 MG ORAL FOUR TIMES DAILY 20 June 27, 2021 Discontinue d Tramadol 50 [...] For Muscle Spasm August 07, 2021 Active Encounters Encounter Facility Location Admit/Visit Date Discharge/Departure Date Attending Provider Registered Emergency [facility] Emergency Department August 07, 2021 11:58am Departed Emergency [facility] Emergency Department June 27, 2021 2:30pm June 27, 2021 4:01pm Departed Emergency [facility] Emergency Department March 27, 2021 11:49am March 27, 2021 2:32pm Departed Emergency [facility] Emergency Department March 20, 2021 2:33pm March 20, 2021 6:25pm Departed Emergency [facility] Emergency Department March 18, 2021 6:11pm March 18, 2021 9:19pm Departed Emergency [facility] Emergency Department March 16, 2021 3:28pm March 16, 2021 10:43pm Departed Emergency [facility] Emergency Department January 29, 2021 8:55pm January 29, 2021 11:08pm Departed Emergency [facility] January 21, 2021 2:24pm [...] Date Recorded Comment Living Situation Home August 07, 2021 12:11pm Immunizations No known immunizations. Plan of Care [...] F-99.6 F August 07, 2021 12:08pm Pulse 88 BPM 60-100 August 07, 2021 3:10pm Respiration 20 RPM -August 07, 2021 12:08pm Pulse Oximetry 97 % 95-100 August 07 3:10pm Blood Pressure Systolic 105 100-140 [facility] 2021 3:10pm Blood Pressure Diastolic 57 50-85 [facility] 2021 3:10pm
--- OUTSIDE RECORDS SUMMARY | 2022-11-20 17:41 | XMS_ITS | Continuity of Care Document ---
Author Name [facility] Address [address] [place] [address] Organization [facility] Address [address] [place] [address] Care Team Providers Care Hand Brim Ironer Name Role Phone Out of Town, Provider [...] iron deficiency. Smear reviewed by pathologist for design quality engineer. Glenroy Mello MD 10/15/20 Prothrombin [...] January 02, 2021 6:04pm 6.0 Urine Specific [place] January 02, 2021 6:04pm 1.015 Urine Protein [...] Urine Culture Ur,Clean Catch No results entered [facility] 2020 7:39pm Routine Culture Umbilicus [...] 14 11:22pm Pt has a Power of Epic Application Coordinator? No October 14, 2020 11:22pm Chief [...] 6:11pm March 18, 2021 9:19pm Departed Emergency [facility] Emergency Department March 16, 2021 3:28pm March 16, 2021 10:43pm Departed Emergency [facility] Emergency Department January 29, 2021 8:55pm January 29, 2021 11:08pm Departed Emergency [facility] January 21, 2021 2:24pm January 21, 2021 4:51pm Departed Emergency [facility] Emergency Department January 07, 2021 4:48pm January 07, 2021 6:55pm Departed Emergency [facility] Emergency Department January 02, 2021 4:12pm January 02, 2021 7:22pm Departed Emergency [facility] Emergency Department December 29, [...]
--- OUTSIDE RECORDS SUMMARY | 2022-11-20 17:41 | XMS_ITS | Continuity of Care Document ---
Author Name [facility] Address [address] [place] [address] Organization [facility] Address [address] [place] [address] Care Team Providers Care Rebar Worker Name Role Phone Out of Town, [...] January 02, 2021 6:04pm 6.0 Urine Specific [place] January 02, 2021 6:04pm 1.015 Urine Protein [...] Urine Culture Ur,Clean Catch No results entered [facility] 2020 7:39pm Routine Culture [...] 14 11:22pm Pt has a Power of Food Preparation Supervisor? No October 14, 2020 11:22pm Chief [...] Date Discharge/Departure Date Attending Provider Departed Emergency [facility] Emergency Department June 27, 2021 2:30pm June 27, 2021 4:01pm Departed Emergency [facility] Emergency Department March 27, 2021 11:49am March 27, 2021 2:32pm Departed Emergency [facility] Emergency Department March 20, 2021 2:33pm March 20, 2021 6:25pm Departed Emergency [facility] Emergency Department March 18, 2021 6:11pm March 18, 2021 9:19pm Departed Emergency [facility] Emergency Department March 16, 2021 3:28pm March 16, 2021 10:43pm Departed Emergency [facility] Emergency Department January 29, 2021 8:55pm January 29, 2021 11:08pm Departed Emergency [facility] January 21, 2021 2:24pm January 21, 2021 4:51pm Departed Emergency [facility] Emergency Department January 07, 2021 4:48pm January 07, 2021 6:55pm Departed Emergency [facility] Emergency Department January 02, 2021 4:12pm January 02, 2021 7:22pm Departed Emergency [facility] Emergency Department December 29, 2020 4:23pm December 29, 2020 7:13pm Departed Emergency [facility] Emergency Department October 14, [...]
--- OUTSIDE RECORDS SUMMARY | 2022-11-20 17:41 | XMS_ITS | Continuity of Care Document ---
Author Name [facility] Address [address] [place] [address] Organization [facility] Address [address] [place] [address] Care Team Providers Care Day Care Home Provider Name Role Phone Out of Town, Provider [...] comment No comparison data on file at [facility]. Microcytic hypochromic anemia, [...] be used to monitor LMWH therapy. Contact [facility] Pharmacy for monitoring information. Urine Color January 02, 2021 6:04pm Lauren Urine Clarity January 02, 2021 6:04pm very cloudy Urine pH January 02, 2021 6:04pm 6.0 Urine Specific [place] January 02, 2021 6:04pm 1.015 Urine Protein [...] Urine Culture Ur,Clean Catch No results entered [facility] 2020 7:39pm Routine Culture Umbilicus Staphylococcus Aureus-Mrsa March 16, 2021 10:27am March 20, 2021 8:34am Gram Stain Umbilicus No results entered March 16, 2021 10:27am Blood Culture Blood NO GROWTH AFTER 5 DAYS March 18, 2021 9:10pm Advance Directives Advance Directive Response Recorded Date/ Time Do we have a copy on file here at [facility]? No October 14, 2020 11:22pm Does patient have an Advanced Directive? No October 14, 2020 11:22pm Pt has a Living Will? No October 14 11:22pm Pt has a Power of Director Of Religious Life? 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 Hospital Discharge Instructions Additional Discharge Instructions [...] Discharge/Departure Date Attending Provider Departed Emergency [facility] Emergency Department August 26, 2021 5:22pm August 26, 2021 7:15pm Departed Emergency [facility] Emergency Department August 10, 2021 2:19pm August 10, 2021 5:11pm Departed Emergency [facility] Emergency Department August 07, 2021 11:58am August 07, 2021 5:15pm Departed Emergency [facility] Emergency Department June 27, 2021 2:30pm June 27, 2021 4:01pm Departed Emergency [facility] Emergency Department March 27, 2021 11:49am March 27, 2021 2:32pm Departed Emergency [facility] Emergency Department March 20, 2021 2:33pm March 20, 2021 6:25pm Departed Emergency [facility] Emergency Department March 18, 2021 6:11pm March 18, 2021 9:19pm Departed [facility] Emergency Department March 16, 2021 3:28pm March 16, 2021 10:43pm Departed Emergency [facility] Emergency Department January 29, 2021 8:55pm January 29, 2021 11:08pm Departed Emergency [facility]gent [facility] January 21, 2021 2:24pm January 21, 2021 4:51pm Departed [facility] Emergency Department January 07, 2021 4:48pm January 07, 2021 6:55pm Departed [facility] Emergency Department January 02, 2021 4:12pm January 02, 2021 7:22pm Departed [facility] Emergency Department December 29, 2020 4:23pm December 29, 2020 7:13pm Departed Emergency [facility] Emergency Department October 14, [...]
--- OUTSIDE RECORDS SUMMARY | 2022-11-20 17:42 | XMS_ITS | Continuity of Care Document ---
Author Name [facility] Address [address] [place] [address] Organization [facility] Address [address] [place] [address] Care Team Providers Care Hydro Generation Supervisor Name Role Phone Out of Town, [...] Smear reviewed by pathologist for quality assurance qa lab analyst. Glenroy Mello MD 10/15/20 Prothrombin Time [...] Ur,Clean Catch No results entered [facility] 1 7:39pm Routine Culture Umbilicus Staphylococcus Aureus-Mrsa [...] 14 11:22pm Pt has a Power of Geophysical Laboratory Supervisor? No October 14, 2020 11:22pm Chief [...] Admit/Visit Date Discharge/Departure Date Attending Provider Departed [facility] Emergency Department March 27, 2021 11:49am March 27, 2021 2:32pm Departed Emergency [facility] Emergency Department March 20, 2021 2:33pm March 20, 2021 6:25pm Departed Emergency [facility] Emergency Department March 18, 2021 6:11pm March 18, 2021 9:19pm Departed [facility] Emergency Department March 16, 2021 3:28pm March 16, [facility] January 29, 2021 8:55pm January 29, 2021 11:08pm Departed [facility] Urgent [facility] January 21, 2021 2:24pm January 21, 2021 4:51pm Departed Emergency [facility] Emergency Department January 07, 2021 4:48pm January 07, 2021 6:55pm Depart Emergency [facility] Emergency Department January 02, 2021 4:12pm January 02, 2021 7:22pm Departed Emergency [facility] Emergency Department December 29, 2020 4:23pm December 29, 2020 7:13pm Departed Emergency [facility] Emergency Department October 14, 2020 [...] 1:20pm Blood Pressure Diastolic 59 50-85 [facility]2020 1:20pm
--- OUTSIDE RECORDS SUMMARY | 2022-11-20 17:42 | XMS_ITS | Continuity of Care Document ---
Author Name [facility] Address [address] [place] [address] Organization [facility] Address [address] [place] [address] Care Team Providers Care Recording Engineer Name Role Phone PCP, of Choice [...] Active Problems Medical Problem Onset Date Status Hemorrhagic cyst of left ovary A ctive Inactive/Resolved Problems Medical Problem Onset Date Status [...] January 02, 2021 6:04pm 6.0 Urine Specific [place] January 02, 2021 6:04pm 1.015 Urine Protein [...] 14 11:22pm Pt has a Power of Corn Husker Machine Operator? No October 14, 2020 11:22pm Chief Complaint and Reason for Visit Encounter Admit Date Chief Complaint Reason for V isit Departed Emergency January 29, 2021 8:55pm OVARIAN C T Hospital Discharge Instructions Additional Discharge Instructions You we re seen in the ED for abdominal pain. Your lab work did not show any acute changes. Your CT scan from [facility] showed a left hemorrhagic ovarian cyst which is likely the cause of symptoms. You can treat the pain with ibuprofen 400 mg every 6 hours as needed. You can alternate with tylenol 500 mg every 6 hours if needed. You can take the ONDANSETRON as needed for nausea and vomiting. Follow up closely with your Rice Drier Operator to discuss your symptoms and work up [...] Provider Departed Emergency [facility] Emergency Department January 29, 2021 8:55pm January 29, 2021 11:08pm Departed Emergency [facility] January 21, 2021 2:24pm January 21, 2021 4:51pm Depart Emergency [facility] Emergency Department January 07, [...] 11:00pm Blood Pressure Systolic 93 100-140 Sept ember 2020 11:00pm Blood Pressure [facility]astolic 64 50-85 [facility]
--- OUTSIDE RECORDS SUMMARY | 2022-11-20 17:42 | XMS_ITS | Continuity of Care Document ---
Author Name [facility] Address [address] [place] [id number] Organization [facility] Address [address] [place] [address] Care Team Providers Care C Application Developer Name Role Phone Out of Town, Provider [...] comment No comparison data on file at [facility]. Microcytic hypochromic anemia, consistent with iron deficiency. Smear reviewed by pathologist for quality lab assoc. Glenroy Mello MD 10/15/20 Prothrombin Time October [...] be used to monitor LMWH therapy. Contact [facility] Pharmacy for monitoring information. Urine Color January 02, 2021 6:04pm Lauren Urine Clarity January 02, 2021 6:04pm very cloudy Urine pH January 02, 2021 6:04pm 6.0 Urine Specific [place] January 02, 2021 6:04pm 1.015 Urine Protein [...] Urine Culture Ur,Clean Catch No results entered [facility] 2020 7:39pm Routine Culture Umbilicus Staphylococcus Aureus-Mrsa March 16, 2021 10:27am March 20, 2021 8:34am Gram Stain Umbilicus No results entered March 16, 2021 10:27am Blood Culture Blood NO GROWTH AFTER 5 DAYS March 18, 2021 9:10pm Advance Directives Advance Directive Response Recorded Date/ Time Do we have a copy on file here at [facility]? No October 14, 2020 11:22pm Does patient have an Advanced Directive? No October 14, 2020 11:22pm Pt has a Living Will? No October 14 11:22pm Pt has a Power of Toll Collector? 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 Instructions Additional Discharge Instructions [...] Emergency [facility] Emergency Department August 26, 2021 5:22pm August 26, 2021 7:15pm Departed Emergency [facility] Emergency Department August 10, 2021 2:19pm August 10, 2021 5:11pm Departed Emergency [facility] Emergency Department August 07, 2021 11:58am August 07, 2021 5:15pm Departed Emergency [facility] Emergency [...] 2021 6:11pm March 18, 2021 9:19pm Departed [facility] Emergency Department March 16, 2021 3:28pm March 16, 2021 10:43pm Departed Emergency [facility] Emergency Department January 29, 2021 8:55pm January 29, 2021 11:08pm Departed Emergency [facility] [place] January 21, 2021 2:24pm January 21, 2021 4:51pm Departed [facility] Emergency Department January 07, 2021 4:48pm January 07, 2021 6:55pm Departed [facility] Emergency Department January 02, 2021 4:12pm January 02, 2021 7:22pm Departed [facility] Emergency Department December 29, [...]
--- OUTSIDE RECORDS SUMMARY | 2022-11-20 17:42 | XMS_ITS | Continuity of Care Document ---
Author Name [facility] Address [address] [place] [id number] Organization [facility] Address [address] [place] [address] Care Team Providers Care Passenger Representative Name Role Phone Out of Town, [...] deficiency. Smear reviewed by pathologist for senior software quality analyst. Glenroy Mello MD 10/15/20 Prothrombin [...] January 02, 2021 6:04pm 6.0 Urine Specific [place] January 02, 2021 6:04pm 1.015 Urine Protein [...] Urine Culture Ur,Clean Catch No results entered [facility] 2020 7:39pm Routine Culture [...] 14 11:22pm Pt has a Power of Software Educator? No October 14, 2020 11:22pm Chief Complaint [...] 8:55pm January 29, 2021 11:08pm Departed Emergency [facility] January 21, 2021 2:24pm January 21, 2021 [...]
--- OUTSIDE RECORDS SUMMARY | 2022-11-20 17:42 | XMS_ITS | Continuity of Care Document ---
Author Name [facility] Address [address] [place] [address] Organization [facility] Address [address] [place] [address] Care Team Providers Care Back Grinder Name Role Phone Out of Town, Provider [...] comment No comparison data on file at [facility]. Microcytic hypochromic anemia, consistent with iron deficiency. Smear reviewed by pathologist for quality auditor. Glenroy Mello MD 10/15/20 Prothrombin Time October [...] be used to monitor LMWH therapy. Contact [facility] Pharmacy for monitoring information. Urine Color January 02, 2021 6:04pm Lauren Urine Clarity January 02, 2021 6:04pm very cloudy Urine pH January 02, 2021 6:04pm 6.0 Urine Specific [place] January 02, 2021 6:04pm 1.015 Urine Protein [...] No results entered [facility] 1 7:39pm Routine Culture Umbilicus Staphylococcus Aureus-Mrsa March 16, 2021 10:27am March 20, 2021 8:34am Gram Stain Umbilicus No results entered March 16, 2021 10:27am Blood Culture Blood NO GROWTH AFTER 5 DAYS March 18, 2021 9:10pm Advance Directives Advance Directive Response Recorded Date/ Time Do we have a copy on file here at [facility]? No October 14, 2020 11:22pm Does patient have an Advanced Directive? No October 14, 2020 11:22pm Pt has a Living Will? No October 14 11:22pm Pt has a Power of Data Processing Operator? No October 14, 2020 11:22pm Chief [...] 2021 6:11pm March 18, 2021 9:19pm Departed [facility] Emergency Department March 16, 2021 3:28pm March 16, [facility] 29, 2021 8:55pm January 29, 2021 11:08pm Departed [facility] January 21, 2021 2:24pm January 21, 2021 4:51pm Departed Emergency [facility] Emergency Department January 07, 2021 4:48pm January 07, 2021 6:55pm Depart Emergency [facility] Emergency Department [...] 1:20pm Blood Pressure Diastolic 59 50-85 [facility] 1:20pm
--- OUTSIDE RECORDS SUMMARY | 2022-11-20 17:42 | XMS_ITS | Continuity of Care Document ---
Author Name [facility] Address [address] [place] [address] [facility] Address [address] [place] [address] Care Team Providers Care Install Technician Name Role Phone Out of Town, [...] comment No comparison data on file at [facility] Microcytic hypochromic anemia, consistent with iron deficiency. Smear reviewed by pathologist for manufacturing quality manager. Glenroy Mello MD 10/15/20 Prothrombin [...] be used to monitor LMWH therapy. Contact [facility] for monitoring information. Urine Color January 02, 2021 6:04pm Lauren Urine Clarity January 02, 2021 6:04pm very cloudy Urine pH January 02, 2021 6:04pm 6.0 Urine Specific [place] January 02, 2021 6:04pm 1.015 Urine Protein [...] Urine Culture Ur,Clean Catch No results entered [facility] 2020 7:39pm Routine Culture Umbilicus Staphylococcus Aureus-Mrsa March 16, 2021 10:27am March 20, 2021 8:34am Gram Stain Umbilicus No results entered March 16, 2021 10:27am Blood Culture Blood NO GROWTH AFTER 5 DAYS March 18, 2021 9:10pm Advance Directives Advance Directive Response Recorded Date/ Time Do we have a copy on file here at [facility] No October 14, 2020 11:22pm Does patient have an Advanced Directive? No October 14, 2020 11:22pm Pt has a Living Will? No October 14 11:22pm Pt has a Power of Mast Maker? 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 Emergency Department August 26, 2021 5:22pm August 26, 2021 7:15pm Departed Emergency [facility] Emergency Department August 10, 2021 2:19pm August 10, 2021 5:11pm Departed Emergency [facility] Emergency Department August 07, 2021 11:58am August 07, 2021 5:15pm Departed Emergency [facility] Emergency Department [...]
--- OUTSIDE RECORDS SUMMARY | 2022-11-20 17:42 | XMS_ITS | Continuity of Care Document ---
Author Name [facility] Address [address] [place] [address] Organization [facility] Address [address] [place] [address] Care Team Providers Care Publicity Agent Name Role Phone PCP, of Choice Primary [...] January 02, 2021 6:04pm 6.0 Urine Specific [place] January 02, 2021 6:04pm 1.015 Urine Protein [...] Urine Culture Ur,Clean Catch No results entered [facility] er 2020 7:39pm Routine Culture Umbilicus [...] 14 11:22pm Pt has a Power of Reach Truck Operator? No October 14, 2020 11:22pm Chief Complaint and Reason for Visit Encounter Admit Date Chief Complaint Reason for V [place] Departed Emergency March 16, 2021 3:28pm POST [...] Discontinue d Gabapentin 200 MG ORAL DAILY Aug t 2020 Active Hydrocodone- Acetaminophe n 1 [...] 18 8:33pm Blood Pressure Systolic 100 100-140 Nove 2020 8:33pm Blood Pressure Diastolic 58 50-85 Nov emb2020 8:33pm
--- OUTSIDE RECORDS SUMMARY | 2022-11-20 17:42 | XMS_ITS | Continuity of Care Document ---
Author Name [facility] Address [address] [place] [address] Organization [facility] Address [address] [place] [address] Care Team Providers Care Deckhand Name Role Phone PCP, of Choice Primary [...] ORAL DAILY 14 October 15, 2020 Active Hydrocodone-Acetaminop hen December 29, 2020 Acti ve Gabapentin 200 MG ORAL DAILY January 02 Active Hydrocodone-Acetaminop hen 1 TAB ORAL Q6H PRN For pain 9 January 02 Active Ondansetron 4 MG ORAL Q6H PRN For n ausea and vomiting 10 January 02, 2021 Active Problem List Active Problems Medical Problem Onset Date Status Abdominal pain Active Inactive/Resolved Problems Medical Problem Onset Date Status Gastritis Inactive Pain, dental Inactive Iron deficiency anemia Inactive Procedures Procedure Date Status CT Abd Pel w/ Contrast January 02, 2021 completed Urine Culture January 02, 2021 active Relevant Diagnostic Tests and/or Laboratory Data Laboratory Results Test Date/Time Result Interp. Ref. Range Result Co mment White Blood Count January 02, 2021 4:44pm 6.81 1000/mm3 4.8-10.8 Red Blood Count January 02, 2021 4:44pm 4.67 M/mm3 4.20-5.40 Hemoglobin January 02, 2021 4:44pm 10.4 g/dL Low 12.0-16.0 Hematocrit January 02, 2021 4:44pm 35.2 % Low 37-47 Mean Corpuscular Volume January 02, 2021 4:44pm 75.4 fL Low 81.0-99.0 Mean Corpuscular Hemoglobin January 02, 2021 4:44pm 22.3 pg Low 27-31 Mean Corpuscular Hemoglobin Concent January 02, 2021 4:44pm 29.5 g/dL Low 33-37 Red Cell Distribution Width January 02, 2021 4:44pm 19.4 % High 11.5-14.5 Platelet Count January 02, 2021 4:44pm 216 1000/mm3 140-440 Mean Platelet Volume January 02, 2021 4:44pm 10.7 fL High 7.4-10.4 Neutrophils (%) (Auto) January 02, 2021 4:44pm 64.3 % 40.0-72.0 Lymphocytes (%) (Auto) January 02, 2021 4:44pm 26.3 % 17-45 Monocytes (%) (Auto) January 02, 2021 4:44pm 6.2 % 3-11 Eosinophils (%) (Auto) January 02, 2021 4:44pm 2.2 % 0-3 Basophils (%) (Auto) January 02, 2021 4:44pm 0.9 % 0-1 Immature Granulocyte % (Auto) January 02, 2021 4:44pm 0.1 % 0-1 Neutrophils # (Auto) January 02, 2021 4:44pm 4.38 1000/mm3 1.4-6.5 Lymphocytes # (Auto) January 02, 2021 4:44pm 1.79 1000/mm3 1.2-3.4 Monocytes # (Auto) January 02, 2021 4:44pm 0.42 1000/mm3 0.0-0.8 Eosinophils # (Auto) January 02, 2021 4:44pm 0.15 1000/mm3 0.0-0.7 Basophils # (Auto) January 02, 2021 4:44pm 0.06 1000/mm3 0.0-0.1 Absolute Immature Granulocyte (auto January 02, 2021 4:44pm 0.0 0-1 Differential Method January 02, 2021 4:44pm Automated Differential Pathologist's Review October 14, 2020 11:38pm See comment No comparison data on file at [facility] Microcytic hypochromic anemia, consistent with iron deficiency. Smear reviewed by pathologist for chief vendor quality. Glenroy Mello MD 10/15/20 Prothrombin Time [...] used to monitor LMWH therapy. Contact [facility] for monitoring information. Urine Color January 02, 2021 6:04pm Lauren Urine Clarity January 02, 2021 6:04pm very cloudy Urine pH January 02, 2021 6:04pm 6.0 Urine Specific [place] January 02, 2021 6:04pm 1.015 Urine Protein [...] 02, 2021 6:04pm Negative Sodium Level January 02, 2021 4:44pm 141 mmol/L 137-145 Potassium Level January 02, 2021 4:44pm 3.9 mmol/L 3.6-5.0 Chloride Level January 02, 2021 4:44pm 104 mmol/L 98-107 Carbon Dioxide Level January 02, 2021 4:44pm 26 mmol/L 22-30 Anion Gap January 02, 2021 4:44pm 11 7-16 Blood Urea Nitrogen January 02, 2021 4:44pm 11 mg/dL 7-17 Creatinine January 02, 2021 4:44pm 0.76 mg/dL 0.52-1.04 Glomerular Filtration Rate Calc January 02, 2021 4:44pm > 60 mL/min 60.0- Glucose Level January 02, 2021 4:44pm 88 mg/dL 70-100 Calcium Level January 02, 2021 4:44pm 9.3 mg/dL 8.4-10.2 Calcium Adjusted for Albumin January 02, 2021 4:44pm 8.8 mg/dL 8.4-10.2 Iron Level October 14, 2020 11:38pm 36 ug/dL Low 37-170 Total Bilirubin January 02, 2021 4:44pm 0.4 mg/dL 0.2-1.3 Aspartate Amino Transf (AST/SGOT) January 02, 2021 4:44pm 39 U/L High 14-36 Alanine Aminotransferase (ALT/SGPT) January 02, 2021 4:44pm 21 U/L As of 09/13/19, the Reference Range for ALT/SGPT for adult patients has been updated. The Reference Range for ALT/SGPT has not been established for patients <18 years of age. Total Protein January 02, 2021 4:44pm 7.9 g/dL 6.3-8.2 Albumin January 02, 2021 4:44pm 4.9 g/dL 3.5-5.0 Alkaline Phosphatase January 02, 2021 4:44pm 58 U/L 38-126 Lipase October 14, 2020 11:38pm 43 U/L 23-300 Ferritin October 14, 2020 11:38pm 4.43 ng/mL Low 10-291 The results of this assay can be falsely decreased in patients who consume Biotin. Advance Directives Advance Directive Response Recorded Date/ Time Do we have a copy on file here at [facility]? No October 14, 2020 11:22pm Does patient have an Advanced Directive? No October 14, 2020 11:22pm Pt has a Living Will? No October 14 11:22pm Pt has a Power of Toy Assembler? No October 14, 2020 11:22pm Chief Complaint and Reason for Visit Encounter Admit Date Chief Complaint Reason for V isit Departed Emergency January 02, 2021 4:12pm RECTAL BLEED ING Hospital Discharge Instructions No known hospital discharge [...] ORAL DAILY 14 October 15, 2020 Active Hydrocodone-Acet aminophen December 29, 2020 Active Gabapentin 200 MG ORAL DAILY Augus 2020 Active Hydrocodone-Acet aminophen 1 TAB ORAL Q6H PRN For pain 9 January 02, 2021 Active Ondansetron 4 MG ORAL Q6H PRN For nausea and vomiting 10 January 02, 2021 Active Encounters Encounter Facility Location Admit/Visit Date Discharge/Departure Date Attending Provider Departed Emergency [facility] Emergency Department January 02, 2021 4:12pm January 02, 2021 7:22pm Departed Emergency [facility] Emergency Department December 29, 2020 4:23pm December 29, 2020 7:13pm Departed Emergency [facility] Emergency Department October 14, 2020 10:48pm October 15, 2020 12:54am Functional Status Query Response Date Recorded Comment Comprehension Ability Understands Concepts January 02, 2021 4:30pm Mood/Behavior Appropriate January 02, 2021 4:30pm Query Response Date Recorded Comment Living Situation Home With Significant Other January 02, 2021 7:21pm Immunizations No known immunizations. Plan of Care Instructions Severe Abdominal Pain, Adult (DC) Social History Query Response Date Recorded Comment Alcohol Use Yes January 02, 2021 6:18pm Alcohol type hard liquor January 02, 2021 6:18pm Smoking Status Never smoker January 02, 2021 6:18pm Substance/Street Drug Use Yes January 02, 2021 6:18pm alcohol intake frequency a few times a month December 6:18pm substance use type marijuana January 02, 2021 6:18pm Query Response Start Date Stop Date Smoking Status Never smoker Vital Signs Vital Reading Result Reference Range Collection Date/Time Weight 90.718 kg January 02, 2021 4:22pm Temperature 97.4 F 97.6 F-99.6 F January 02 4:22pm Pulse 77 BPM 60-100 January 02, 2021 7:20pm Respiration 18 RPM 12-24 January 02, 2021 7:20pm Pulse Oximetry 96 % 95-100 January 02 4:22pm Blood Pressure Systolic 107 100-140 [facility] 2020 7:20pm Blood Pressure Diastolic 62 50-85 [facility] 2020 7:20pm
--- OUTSIDE RECORDS SUMMARY | 2022-11-20 17:42 | XMS_ITS | Continuity of Care Document ---
Author Name [facility] Address [address] [place] [address] Organization [facility] Address [address] [place] [address] Care Team Providers Care Plastic Surgery Manager Name Role Phone Out of Town, [...] Smear reviewed by pathologist for quality control analyst. Glenroy Mello MD 10/15/20 [...] January 02, 2021 6:04pm 6.0 Urine Specific [place] January 02, 2021 6:04pm 1.015 Urine Protein [...] Urine Culture Ur,Clean Catch No results entered Replaced By [facility] 2020 7:39pm Routine Culture Umbilicus Staphylococcus Aureus-Mrsa [...] 14 11:22pm Pt has a Power of Foundation Drill Operator Helper? No October 14, 2020 11:22pm Chief Complaint and Reason for Visit Encounter Admit Date Chief Complaint Reason for V isit Registered Emergency March 20, 2021 2:33pm HEAVY VAG BLEEDING Hospital Discharge Instructions Additional Discharge Instructions Your [...] Date Discharge/Departure Date Attending Provider Registered Emergency [facility] Emergency Department March 20, 2021 2:33pm Departed Emergency [facility] Emergency Department March 18, 2021 6:11pm March 18, 2021 9:19pm Departed Emergency [facility] Emergency Department March 16, 2021 3:28pm March 16, 2021 10:43pm Departed Emergency [facility] Emergency Department January 29, 2021 8:55pm January 29, 2021 11:08pm Departed Emergency [facility] January 21, 2021 2:24pm January 21, 2021 4:51pm Depart Emergency [facility] Emergency [...] Living Situation Home With Significant Other March 20, 2021 2:48pm Immunizations No known immunizations. Plan of Care [...] 20 5:00pm Blood Pressure Systolic 124 100-140 [facility] 2020 5:00pm Blood Pressure Diastolic 57 50-85 [facility] 2020 5:00pm
--- OUTSIDE RECORDS SUMMARY | 2022-11-20 17:42 | XMS_ITS | Continuity of Care Document ---
Author Name [facility] Address [address] [place] [address] Organization [facility] Address [address] [place] [address] Care Team Providers Care Vice President Of Nursing Name Role Phone PCP, of Choice Primary [...] ovary I nactive Procedures Procedure Date Status Gram Stain March 16, [address] Abd Pel w/ Contrast March 16, 2021 complete d Urine Culture March 16, 2021 active Routine Culture March 16, 2021 active Urine [...] No comparison data on file at [facility]. Microcytic hypochromic anemia, consistent with iron deficiency. Smear reviewed by pathologist for clinical quality assurance specialist. Glenroy Mello MD 10/15/20 Prothrombin Time [...] used to monitor LMWH therapy. Contact [facility] for monitoring information. Urine Color January 02, 2021 6:04pm Lauren Urine Clarity January 02, 2021 6:04pm very cloudy Urine pH January 02, 2021 6:04pm 6.0 Urine Specific [place] January 02, 2021 6:04pm 1.015 Urine Protein [...] No results entered January 02, 2021 6:40pm Gram Stain Umbilicus No results entered March 16, 2021 10:27am Advance Directives Advance Directive Response Recorded Date/ Time Do we have a copy on file here at [facility]? No October 14, 2020 11:22pm Does patient have an Advanced Directive? No October 14, 2020 11:22pm Pt has a Living Will? No October 14 11:22pm Pt has a Power of Physics Department Chair? No October 14, 2020 11:22pm Chief Complaint and Reason for Visit Encounter Admit Date Chief Complaint Reason for V isit Departed Emergency March 16, 2021 3:28pm POST OP [facility] Hospital Discharge Instructions Additional Discharge Instructions As [...] 8:55pm January 29, 2021 11:08pm Departed Emergency [facility] Urgent [facility] January [...] 16 9:44pm Blood Pressure Systolic 116 100-140 [facility] 2020 9:44pm Blood Pressure Diastolic 68 50-85 [facility] 9:44pm
--- OUTSIDE RECORDS SUMMARY | 2022-11-20 17:42 | XMS_ITS | Continuity of Care Document ---
Author Name [facility] Address [address] [place] [id number] [facility] Address [address] [place] [address] Care Team Providers Care Investor Relations Associate Name Role Phone Out of Town, Provider [...] January 02, 2021 6:04pm 6.0 Urine Specific [place] January 02, 2021 6:04pm 1.015 Urine Protein [...] Urine Culture Ur,Clean Catch No results entered [facility] 2020 7:39pm Routine Culture Umbilicus Staphylococcus [...] 14 11:22pm Pt has a Power of Renewable Energy Project Manager? 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 Hospital Discharge Instructions Additional Discharge Instructions [...] Emergency [facility] Emergency Department August 26, 2021 5:22pm August 26, 2021 7:15pm Departed Emergency [facility] Emergency Department August 10, 2021 2:19pm August 10, 2021 5:11pm Departed Emergency [facility] Emergency Department [...] 2021 2:24pm January 21, 2021 4:51pm Departed [facility] Emergency Department January 07, 2021 4:48pm January 07, 2021 6:55pm Departed [facility] Emergency Department January 02, 2021 4:12pm January 02, 2021 7:22pm Departed [facility] Emergency Department December 29, [...]
--- OUTSIDE RECORDS SUMMARY | 2022-11-20 17:42 | XMS_ITS | Continuity of Care Document ---
Author Name [facility] Address [address] [place] [id number] Organization [facility] Address [address] [place] [address] Care Team Providers Care Aircraft Designer Name Role Phone Out of Town, Provider [...] 02, 2021 6:04pm 6.0 Urine Specific [place] January 02, 2021 6:04pm 1.015 Urine Protein [...] Urine Culture Ur,Clean Catch No results entered [facility] 2020 7:39pm Routine Culture Umbilicus Staphylococcus [...] 14 11:22pm Pt has a Power of Court Recorder? 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 Hospital Discharge Instructions Additional Discharge Instructions [...] Date Discharge/Departure Date Attending Provider Departed Emergency [facility] Emergency Department August 26, 2021 5:22pm August 26, 2021 7:15pm Departed Emergency [facility] Emergency Department August 10, 2021 2:19pm August 10, 2021 5:11pm Departed Emergency [facility] Emergency Department August 07, 2021 11:58am August 07, 2021 5:15pm Departed Emergency [facility] Emergency Department June 27, 2021 2:30pm June 27, 2021 4:01pm Departed Emergency [facility] Emergency Department March 27, 2021 11:49am March 27, 2021 2:32pm Departed Emergency [facility] Emergency Department March 20, 2021 2:33pm March 20, 2021 6:25pm Departed Emergency [facility] Emergency Department March 18, 2021 6:11pm March 18, 2021 9:19pm Departed Emergency [facility] Emergency Department March 16, 2021 3:28pm March 16, 2021 10:43pm Departed Emergency [facility] Emergency Department January 29, 2021 8:55pm January 29, 2021 11:08pm Departed Emergency [facility]gent [place] January 21, 2021 [...]
--- OUTSIDE RECORDS SUMMARY | 2022-11-20 17:42 | XMS_ITS | Continuity of Care Document ---
Author Name [facility] Address [address] [place] [id number] Organization [facility] Address [address] [place] [address] Care Team Providers Care Director Digital Name Role Phone Out of Town, Provider [...] deficiency. Smear reviewed by pathologist for quality rep. Glenroy Mello MD 10/15/20 Prothrombin Time October [...] January 02, 2021 6:04pm 6.0 Urine Specific [place] January 02, 2021 6:04pm 1.015 Urine Protein [...] Culture Ur,Clean Catch No results entered [facility] 2020 7:39pm Routine Culture Umbilicus [...] 14 11:22pm Pt has a Power of Manufacturing Technician? 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 Hospital Discharge Instructions Additional Discharge Instructions [...] Date Discharge/Departure Date Attending Provider Departed Emergency [facility] Emergency Department August 26, 2021 5:22pm August 26, 2021 7:15pm Departed Emergency [facility] Emergency Department August 10, 2021 2:19pm August 10, 2021 5:11pm Departed Emergency [facility] Emergency Department August 07, 2021 11:58am August 07, 2021 5:15pm Departed Emergency [facility] Emergency Department June 27, 2021 2:30pm June 27, 2021 4:01pm Departed Emergency [facility] Emergency Department March 27, 2021 11:49am March 27, 2021 2:32pm Departed Emergency [facility] Emergency Department March 20, 2021 2:33pm March 20, 2021 6:25pm Departed Emergency [facility] Emergency Department March 18, 2021 6:11pm March 18, 2021 9:19pm Departed [facility] Emergency Department March 16, 2021 3:28pm March 16, 2021 10:43pm Departed Emergency [facility] Emergency Department January 29, 2021 8:55pm January 29, 2021 11:08pm Departed Emergency [facility] Urgent [place] January 21, 2021 2:24pm January 21, 2021 4:51pm Departed [facility] Emergency Department January 07, 2021 4:48pm January 07, 2021 6:55pm Departed [facility] Emergency Department January 02, 2021 4:12pm January 02, 2021 7:22pm Departed [facility] Emergency Department December 29, 2020 4:23pm December 29, 2020 7:13pm Departed Emergency [facility] Emergency Department October 14, [...]
--- OUTSIDE RECORDS SUMMARY | 2022-11-20 17:42 | XMS_ITS | Continuity of Care Document ---
Author Name Address [address] [place] [id number] Organization Address [address] [place] [id number] Care Team Providers Care Business Account Executive Name Role Phone Out of Town, Provider [...] comment No comparison data on file at [facility]. Microcytic hypochromic anemia, consistent with iron deficiency. Smear reviewed by pathologist for ethanol quality leader. Glenroy Mello MD 10/15/20 Prothrombin Time October [...] be used to monitor LMWH therapy. Contact [facility] Pharmacy for monitoring information. Urine Color January 02, 2021 6:04pm Lauren Urine Clarity January 02, 2021 6:04pm very cloudy Urine pH January 02, 2021 6:04pm 6.0 Urine Specific [place] January 02, 2021 6:04pm 1.015 Urine Protein [...] Urine Culture Ur,Clean Catch No results entered [facility] 2020 7:39pm Routine Culture Umbilicus Staphylococcus Aureus-Mrsa March 16, 2021 10:27am March 20, 2021 8:34am Gram Stain Umbilicus No results entered March 16, 2021 10:27am Blood Culture Blood NO GROWTH AFTER 5 DAYS March 18, 2021 9:10pm Advance Directives Advance Directive Response Recorded Date/ Time Do we have a copy on file here at [facility]? No October 14, 2020 11:22pm Does patient have an Advanced Directive? No October 14, 2020 11:22pm Pt has a Living Will? No October 14 11:22pm Pt has a Power of Fur Coat Sewer? No October 14, 2020 11:22pm Chief Complaint [...] Date Discharge/Departure Date Attending Provider Departed Emergency Emergency Department June 27, 2021 2:30pm June 27, 2021 4:01pm Departed Emergency Emergency Department March 27, 2021 11:49am March 27, 2021 2:32pm Departed Emergency Emergency Department March 20, 2021 2:33pm March 20, 2021 6:25pm Departed Emergency Emergency Department March 18, 2021 6:11pm March 18, 2021 9:19pm Departed Emergency Emergency Department March 16, 2021 3:28pm March 16, 2021 10:43pm Departed Emergency Emergency Department January 29, 2021 8:55pm January 29, 2021 11:08pm Departed Emergency [facility] January 21, 2021 2:24pm January 21, 2021 4:51pm Departed Emergency Emergency Department January 07, 2021 4:48pm January 07, 2021 6:55pm Departed Emergency Emergency Department January 02, 2021 4:12pm January 02, 2021 7:22pm Departed Emergency Emergency Department December 29, 2020 4:23pm December 29, 2020 7:13pm Departed Emergency Emergency Department October 14, 2020 10:48pm October [...]
--- OUTSIDE RECORDS SUMMARY | 2022-11-20 17:42 | XMS_ITS | Continuity of Care Document ---
Author Name [facility] Address [address] [place] [address] Organization [facility] Address [address] [place] [address] Care Team Providers Care Science Professor Name Role Phone Out of Town, Provider [...] No comparison data on file at [facility]. Microcytic hypochromic anemia, consistent with iron deficiency. Smear reviewed by pathologist for quality and reliability engineer. Glenroy Mello MD 10/15/20 Prothrombin Time [...] used to monitor LMWH therapy. Contact [facility] Pharmacy for monitoring information. Urine Color January 02, 2021 6:04pm Lauren Urine Clarity January 02, 2021 6:04pm very cloudy Urine pH January 02, 2021 6:04pm 6.0 Urine Specific [place] January 02, 2021 6:04pm 1.015 Urine Protein [...] Urine Culture Ur,Clean Catch No results entered [facility] 2020 7:39pm Routine Culture Umbilicus Staphylococcus Aureus-Mrsa March 16, 2021 10:27am March 20, 2021 8:34am Gram Stain Umbilicus No results entered March 16, 2021 10:27am Blood Culture Blood NO GROWTH AFTER 5 DAYS March 18, 2021 9:10pm Advance Directives Advance Directive Response Recorded Date/ Time Do we have a copy on file here at [facility]? No October 14, 2020 11:22pm Does patient have an Advanced Directive? No October 14, 2020 11:22pm Pt has a Living Will? No October 14 11:22pm Pt has a Power of Media Professional? 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
--- OUTSIDE RECORDS SUMMARY | 2022-11-20 17:42 | XMS_ITS | Continuity of Care Document ---
Author Name [facility] Address [address] [place] [id number] Organization [facility] Address [address] [place] [id number] Care Team Providers Care Battery Plate Remover Name Role Phone Out of Town, Provider [...] comment No comparison data on file at [facility]. Microcytic hypochromic anemia, consistent with iron deficiency. Smear reviewed by pathologist for software quality tester. Glenroy Mello MD 10/15/20 Prothrombin Time [...] be used to monitor LMWH therapy. Contact [facility] Pharmacy for monitoring information. Urine Color January 02, 2021 6:04pm Lauren Urine Clarity January 02, 2021 6:04pm very cloudy Urine pH January 02, 2021 6:04pm 6.0 Urine Specific [place] January 02, 2021 6:04pm 1.015 Urine Protein [...] Urine Culture Ur,Clean Catch No results entered [facility] 2020 7:39pm Routine Culture Umbilicus Staphylococcus Aureus-Mrsa March 16, 2021 10:27am March 20, 2021 8:34am Gram Stain Umbilicus No results entered March 16, 2021 10:27am Blood Culture Blood NO GROWTH AFTER 5 DAYS March 18, 2021 9:10pm Advance Directives Advance Directive Response Recorded Date/ Time Do we have a copy on file here at [facility]? No October 14, 2020 11:22pm Does patient have an Advanced Directive? No October 14, 2020 11:22pm Pt has a Living Will? No October 14 11:22pm Pt has a Power of Server Assistant? 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
--- OUTSIDE RECORDS SUMMARY | 2022-11-20 17:42 | XMS_ITS | Continuity of Care Document ---
Author Name [facility] Address [address] [place] [address] Organization [facility] Address [address] [place] [address] Care Team Providers Care Hvac/R Service Technician Name Role Phone Out of Town, [...] comment No comparison data on file at [facility]. Microcytic hypochromic anemia, consistent with [...] be used to monitor LMWH therapy. Contact [facility] Pharmacy for monitoring information. Urine Color January 02, 2021 6:04pm Lauren Urine Clarity January 02, 2021 6:04pm very cloudy Urine pH January 02, 2021 6:04pm 6.0 Urine Specific [place] January 02, 2021 6:04pm 1.015 Urine [...] Urine Culture Ur,Clean Catch No results entered [facility] 2020 7:39pm Routine Culture Umbilicus Staphylococcus Aureus-Mrsa March 16, 2021 10:27am March 20, 2021 8:34am Gram Stain Umbilicus No results entered March 16, 2021 10:27am Blood Culture Blood NO GROWTH AFTER 5 DAYS March 18, 2021 9:10pm Advance Directives Advance Directive Response Recorded Date/ Time Do we have a copy on file here at [facility]? No October 14, 2020 11:22pm Does patient have an Advanced Directive? No October 14, 2020 11:22pm Pt has a Living Will? No October 14 11:22pm Pt has a Power of Manager Group Home? No October 14, 2020 11:22pm Chief Complaint [...] March 18, 2021 9:19pm Departed Emergency [facility] Emergency Department March 16, 2021 3:28pm March 16, 2021 10:43pm Departed Emergency [facility] Emergency Department January 29, 2021 8:55pm January 29, 2021 11:08pm Departed Emergency [facility] January 21, 2021 2:24pm January 21, 2021 4:51pm Departed Emergency [facility] Emergency Department January 07, 2021 4:48pm January 07, 2021 6:55pm Departed Emergency [facility] Emergency Department January 02, 2021 4:12pm January 02, 2021 7:22pm Departed Emergency [facility] Emergency Department December [...]
--- OUTSIDE RECORDS SUMMARY | 2022-11-20 17:43 | XMS_ITS | Continuity of Care Document ---
Author Name [facility] Address [address] [place] [id number] Organization [facility] Address [address] [place] [address] Care Team Providers Care Pipefitter Helper Name Role Phone PCP, of Choice [...] No comparison data on file [place] [facility] Microcytic hypochromic anemia, consistent with iron deficiency. Smear reviewed by pathologist for corporate quality engineer. Glenroy Mello MD 10/15/20 Prothrombin [...] used to monitor LMWH therapy. Contact [facility] for monitoring information. Urine Color January 02, 2021 6:04pm Lauren Urine Clarity January 02, 2021 6:04pm very cloudy Urine pH January 02, 2021 6:04pm 6.0 Urine Specific [place] January 02, 2021 6:04pm 1.015 Urine Protein [...] Ur,Clean Catch No results entered [facility] 2020 7:39pm Routine Culture Umbilicus Staphylococcus Aureus-Mrsa March 16, 2021 10:27am March 20, 2021 8:34am Gram Stain Umbilicus No results entered March 16, 2021 10:27am Blood Culture Blood NO GROWTH AFTER 5 DAYS March 18, 2021 9:10pm Advance Directives Advance Directive Response Recorded Date/ Time Do we have a copy on file here [place] [facility]? No October 14, 2020 11:22pm Does patient have an Advanced Directive? No October 14, 2020 11:22pm Pt has a Living Will? No October 14 11:22pm Pt has a Power of Commercial Lines Sales Executive? No October 14, 2020 11:22pm Chief Complaint and Reason for Visit Encounter Admit Date Chief Complaint Reason for V isit Departed Emergency September 23, 2021 3:02pm abdominal compl [facility] Hospital Discharge Instructions Additional Discharge Instructions Return tomorrow morning for ultrasound of your pelvis with a full bladder at 10 AM. Your test here was normal and your urine showed some mild dehydration. We strongly encourage you to keep in contact with your operator and truck driver at the [facility]. It is important to keep [...] Departed [facility] Emergency Department September 23, 2021 3:02pm September 23, 2021 7:35pm Departed [facility] Emergency Department August 26, 2021 5:22pm August 26, 2021 7:15pm Departed [facility] Emergency Department August 10, 2021 2:19pm August 10, 2021 5:11pm Departed [facility] Emergency Department August 07, 2021 11:58am August 07, 2021 5:15pm Departed [facility] Emergency Department June 27, 2021 2:30pm June 27, 2021 [facility] March 27, 2021 11:49am March 27, 2021 2:32pm Departed [facility] Emergency Department March 20, 2021 2:33pm March 20, 2021 [facility] March 18, 2021 6:11pm March 18, 2021 9:19pm Departed [facility] Emergency Department March 16, 2021 3:28pm March 16, 2021 10:43pm Departed [facility] Emergency Department January 29, 2021 8:55pm January 29, 2021 [facility] January 21, 2021 2:24pm January 21, 2021 4:[facility] 07, 2021 4:48pm January 07, 2021 [facility] January 02, 2021 4:12pm January 02, 2021 [facility] December 29, 2020 [...]
--- OUTSIDE RECORDS SUMMARY | 2022-11-20 17:43 | XMS_ITS | Continuity of Care Document ---
Author Name [facility] Address [address] [place] [address] Organization [facility] Address [address] [place] [address] Care Team Providers Care Faculty Member Name Role Phone PCP, of Choice Primary [...] comment No comparison data on file at [facility]. Microcytic hypochromic anemia, consistent with iron deficiency. Smear reviewed by pathologist for quality control microbiologist. Glenroy Mello MD 10/15/20 Prothrombin Time October [...] be used to monitor LMWH therapy. Contact [facility] Pharmacy for monitoring information. Urine Color January 02, 2021 6:04pm Lauren Urine Clarity January 02, 2021 6:04pm very cloudy Urine pH January 02, 2021 6:04pm 6.0 Urine Specific [place] January 02, 2021 6:04pm 1.015 Urine Protein [...] Urine Culture Ur,Clean Catch No results entered [facility] 2020 7:39pm Routine Culture Umbilicus Staphylococcus Aureus-Mrsa March 16, 2021 10:27am March 20, 2021 8:34am Gram Stain Umbilicus No results entered March 16, 2021 10:27am Blood Culture Blood NO GROWTH AFTER 5 DAYS March 18, 2021 9:10pm Advance Directives Advance Directive Response Recorded Date/ Time Do we have a copy on file here at [facility]? No October 14, 2020 11:22pm Does patient have an Advanced Directive? No October 14, 2020 11:22pm Pt has a Living Will? No October 14 11:22pm Pt has a Power of Assembler [employer] Group? No October 14, 2020 11:22pm Chief Complaint and Reason for Visit Encounter Admit Date Chief Complaint Reason for V isit Departed Emergency September 23, 2021 3:02pm abdominal compl [facility] Hospital Discharge Instructions Additional Discharge Instructions Return tomorrow morning for ultrasound of your pelvis with a full bladder at 10 AM. Your test here was normal and your urine showed some mild dehydration. We strongly encourage you to keep in contact with your steam tank operator at the [facility]. It is important to keep a [...] Admit/Visit Date Discharge/Departure Date Attending Provider Departed [facility] Emergency Department September 23, 2021 3:02pm September 23, 2021 7:35pm Departed [facility] Emergency Department August 26, 2021 5:22pm August 26, 2021 7:15pm Departed [facility] Emergency Department August 10, 2021 2:19pm August 10, 2021 5:11pm Departed [facility] Emergency Department August 07, 2021 11:58am August 07, 2021 5:15pm Departed [facility] Emergency Department June 27, 2021 2:30pm June 27, 2021 [facility] March 27, 2021 11:49am March 27, 2021 2:32pm Departed [facility] Emergency Department March 20, 2021 2:33pm March 20, 2021 [facility] March 18, 2021 6:11pm March 18, 2021 9:19pm Departed [facility] Emergency Department March 16, 2021 3:28pm March 16, 2021 10:43pm Departed [facility] Emergency Department January 29, 2021 8:55pm January 29, 2021 11:[facility] January 21, 2021 2:24pm January 21, [...]
--- OUTSIDE RECORDS SUMMARY | 2022-11-20 17:43 | XMS_ITS | Continuity of Care Document ---
Author Name [facility] Address [address] [place] [address] Organization [facility] Address [address] [place] [address] Care Team Providers Care Press Manager Name Role Phone Out of Town, [...] iron deficiency. Smear reviewed by pathologist for lead quality control technician. Glenroy Mello MD 10/15/20 [...] January 02, 2021 6:04pm 6.0 Urine Specific [place] January 02, 2021 6:04pm 1.015 Urine Protein [...] 14 11:22pm Pt has a Power of Sound System Installer? No October 14, 2020 11:22pm Chief Complaint [...] Departed Emergency [facility] Emergency Department June 27, 2021 2:30pm June 27, 2021 4:01pm Departed Emergency [facility] Emergency Department March 27, 2021 11:49am March 27, 2021 2:32pm Departed Emergency [facility] Emergency Department March 20, 2021 2:33pm March 20, 2021 6:25pm Departed Emergency [facility] Emergency Department March 18, 2021 6:11pm March 18, 2021 9:19pm Departed Emergency [facility] Emergency Department March 16, 2021 3:28pm March 16, 2021 10:43pm Departed Emergency [facility] Emergency Department January 29, 2021 8:55pm January 29, 2021 11:08pm Departed Emergency [facility] January 21, 2021 2:24pm January 21, 2021 4:51pm Departed Emergency [facility] Emergency Department January 07, 2021 4:48pm January 07, 2021 6:55pm Departed Emergency [facility] Emergency Department [...]
--- OUTSIDE RECORDS SUMMARY | 2022-11-20 17:43 | XMS_ITS | Continuity of Care Document ---
Author Name [facility] Address [address] [place] [address] Organization [facility] Address [address] [place] [address] Care Team Providers Care Slot Key Person Name Role Phone Out of Town, Provider [...] US Abdominal Limited March 27, 2021 comple caor Blood Culture March 18, 2021 completed Urine [...] iron deficiency. Smear reviewed by pathologist for supplier quality engineer. Glenroy Mello MD 10/15/20 Prothrombin [...] January 02, 2021 6:04pm 6.0 Urine Specific [place] January 02, 2021 6:04pm 1.015 Urine [...] Urine Culture Ur,Clean Catch No results entered [facility] 2020 7:39pm Routine Culture Umbilicus Staphylococcus [...] 11:22pm Pt has a Power of Maintenance Assistant? No October 14, 2020 11:22pm Chief [...] 07, 2021 11:58am August 07, 2021 [facility], [facility] 2:30pm June 27, 2021 [facility] March 27, 2021 11:49am March 27, 2021 2:[facility] March 20, 2021 2:33pm March 20, 2021 6:[facility] March 18, 2021 6:11pm March 18, 2021 9:[facility] March 16, 2021 3:28pm March 16, 2021 10:[facility] January 29, 2021 8:55pm January 29, [facility] January 21, 2021 [...] Blood Pressure Systolic 124 100-140 [facility] 2021 5:10pm Blood Pressure Diastolic 69 50-85 [facility] 2021 5:10pm
--- OUTSIDE RECORDS SUMMARY | 2022-11-20 17:43 | XMS_ITS | Continuity of Care Document ---
Author Name [facility] Address [address] [place] [id number] Organization [facility] Address [address] [place] [address] Care Team Providers Care Area Field Worker Name Role Phone PCP, of Choice Primary [...] comment No comparison data on file at [facility]. Microcytic hypochromic anemia, consistent with iron deficiency. Smear reviewed by pathologist for software quality specialist. Glenroy Mello MD 10/15/20 Prothrombin [...] be used to monitor LMWH therapy. Contact [facility] Pharmacy for monitoring information. Urine Color January 02, 2021 6:04pm Lauren Urine Clarity January 02, 2021 6:04pm very cloudy Urine pH January 02, 2021 6:04pm 6.0 Urine Specific [place] January 02, 2021 6:04pm 1.015 Urine Protein [...] have a copy on file here at [facility]? No October 14, 2020 11:22pm Does patient have an Advanced Directive? No October 14, 2020 11:22pm Pt has a Living Will? No October 14 11:22pm Pt has a Power of Rides Supervisor? No October 14, 2020 11:22pm Chief Complaint and Reason for Visit Encounter Admit Date Chief Complaint Reason for V isit Departed Emergency September 23, 2021 3:02pm abdominal compl [facility] Hospital Discharge Instructions Additional Discharge Instructions Return tomorrow morning for ultrasound of your pelvis with a full bladder at 10 AM. Your test here was normal and your urine showed some mild dehydration. We strongly encourage you to keep in contact with your agricultural technical officer at the [facility]. It is important to keep [...] Admit/Visit Date Discharge/Departure Date Attending Provider Departed [facility] Emergency Department September 23, 2021 3:02pm September 23, 2021 7:35pm Departed [facility] Emergency Department August 26, 2021 5:22pm August 26, 2021 7:15pm Departed [facility] Emergency Department August 10, 2021 2:19pm August 10, 2021 5:11pm Departed [facility] Emergency Department August 07, 2021 11:58am August 07, 2021 5:15pm Departed [facility] Emergency Department June 27, 2021 2:30pm June 27, 2021 4:[facility] March 27, 2021 11:49am March 27, 2021 2:32pm Departed [facility] Emergency Department March 20, 2021 2:33pm March 20, 2021 6:[facility] March 18, 2021 6:11pm March 18, 2021 9:19pm Departed [facility] Emergency Department March 16, 2021 3:28pm March 16, 2021 10:43pm Departed [facility] Emergency Department January 29, 2021 8:55pm January 29, 2021 [facility] January 21, 2021 2:24pm January 21, 2021 4:51pm [facility] January 07, 2021 4:48pm January 07, 2021 6:55pm [facility] January 02, 2021 4:12pm January 02, 2021 7:22pm [facility] December 29, [...]
--- OUTSIDE RECORDS SUMMARY | 2022-11-20 17:43 | XMS_ITS | Continuity of Care Document ---
Author Name [facility] Address [address] [place] [id number] Organization [facility] Address [address] [place] [address] Care Team Providers Care Director Internal Communications Name Role Phone Out of Town, Provider [...] No comparison data on file at [facility]. Microcytic hypochromic anemia, consistent with iron deficiency. Smear reviewed by pathologist for coding quality analyst. Glenroy Mello MD 10/15/20 Prothrombin [...] used to monitor LMWH therapy. Contact [facility] Pharmacy for monitoring information. Urine Color January 02, 2021 6:04pm Lauren Urine Clarity January 02, 2021 6:04pm very cloudy Urine pH January 02, 2021 6:04pm 6.0 Urine Specific [place] January 02, 2021 6:04pm 1.015 Urine Protein [...] Ur,Clean Catch No results entered [facility] 1 7:39pm Routine Culture Umbilicus Staphylococcus Aureus-Mrsa March 16, 2021 10:27am March 20, 2021 8:34am Gram Stain Umbilicus No results entered March 16, 2021 10:27am Blood Culture Blood NO GROWTH AFTER 5 DAYS March 18, 2021 9:10pm Advance Directives Advance Directive Response Recorded Date/ Time Do we have a copy on file here at [facility]? No October 14, 2020 11:22pm Does patient have an Advanced Directive? No October 14, 2020 11:22pm Pt has a Living Will? No October 14 11:22pm Pt has a Power of Controls Operator Molded Goods? No October 14, 2020 11:22pm Chief Complaint [...] 16, 2021 3:28pm March 16, 2021 [facility] January 29, 2021 8:55pm January 29, 2021 11:08pm [facility]ed [facility] January 21, 2021 [...] 2021 1:20pm Blood Pressure Systolic 106 100-140 [facility] 1:20pm Blood Pressure Diastolic 59 50-85 [facility]2020 1:20pm
--- OUTSIDE RECORDS SUMMARY | 2022-11-20 17:43 | XMS_ITS | Continuity of Care Document ---
Author Name [facility] Address [address] [place] [address] Organization [facility] Address [address] [place] [address] Care Team Providers Care Clinical Psychologist Private Practice Name Role Phone Out of Town, Provider [...] deficiency. Smear reviewed by pathologist for quality consultant. Glenroy Mello MD 10/15/20 Prothrombin Time [...] January 02, 2021 6:04pm 6.0 Urine Specific [place] January 02, 2021 6:04pm 1.015 Urine Protein [...] Culture Ur,Clean Catch No results entered [facility] 2020 7:39pm Routine Culture Umbilicus Staphylococcus Aureus-Mrsa [...] 14 11:22pm Pt has a Power of Golf Club Head Former? 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 Additional Discharge [...] Departed Emergency [facility] Emergency Department August 26, 2021 5:22pm August 26, 2021 7:15pm Departed Emergency [facility] Emergency Department August 10, 2021 2:19pm August 10, 2021 5:11pm Departed Emergency [facility] Emergency Department August 07, 2021 11:58am August 07, 2021 5:15pm Departed Emergency [facility] Emergency Department [...] 8:55pm January 29, 2021 11:08pm Departed Emergency [facility] [place] January 21, 2021 2:24pm January 21, 2021 4:51pm Departed [facility] Emergency Department January 07, 2021 4:48pm January 07, 2021 6:55pm Departed [facility] Emergency Department January 02, 2021 4:12pm January 02, 2021 7:22pm Departed [facility] Emergency Department December 29, 2020 [...]
--- OUTSIDE RECORDS SUMMARY | 2022-11-20 17:43 | XMS_ITS | Continuity of Care Document ---
Author Name [facility] Address [address] [place] [id number] Organization [facility] Address [address] [place] [address] Care Team Providers Care Rand Butter Name Role Phone PCP, of Choice Primary Care Physician Unavailab le Allergies, Adverse Reactions, Alerts Allergen Type Severity Reaction Last Updated Verified Status ketorolac Allergy anaphylaxis December 29, 2020 Y [...] ORAL DAILY 14 October 15, 2020 Active Hydrocodone-Acetaminophen December 29, 2020 Active Problem List Active Problems Medical Problem [...] comment No comparison data on file at [facility]. Microcytic hypochromic anemia, consistent with iron deficiency. Smear reviewed by pathologist for quality assurance representative. Glenroy Mello MD 10/15/20 Prothrombin Time [...] be used to monitor LMWH therapy. Contact [facility] Pharmacy for monitoring information. Urine RBC October [...] have a copy on file here at [facility]? No October 14, 2020 11:22pm Does patient have an Advanced Directive? No October 14, 2020 11:22pm Pt has a Living Will? No October 14 11:22pm Pt has a Power of Advance Scout? No October 14, 2020 11:22pm Chief Complaint and Reason for Visit Encounter Admit Date Chief Complaint Reason for V isit Departed Emergency December 29, 2020 4:23pm ORAL INFECTI ON Hospital Discharge Instructions Additional Discharge Instructions Follow up with your dental surgeon. Return if you develop fever or difficulty swallowing or breathing. Instruction/Education Provided [facility] in (DC) Hospital Discharge Medications Medication Dose Units [...] Active Hydrocodone-Acet aminophen December 29, 2020 Active Encounters Encounter Facility Location Admit/Visit [...] Response Date Recorded Comment Living Situation Home December 29, 2020 4:37pm Immunizations No known immunizations. Plan of Care Instructions Dental Pain (DC) Social History Query Response Date Recorded Comment Alcohol Use Yes December 29, 2020 5:47pm Smoking Status Never smoker December 29, 2020 5:47pm Substance/Street Drug Use Yes December 29, 2020 5:47pm alcohol intake frequency a few times a month December 5:47pm substance use type marijuana December 29, 2020 5:47pm Query Response Start Date Stop Date Smoking Status Never smoker Vital Signs Vital Reading Result Reference Range Collection Date/Time Weight 90.718 kg December 29, 2020 4:32pm Temperature 97.6 F 97.6 F-99.6 F December 29 4:32pm Pulse 80 BPM 60-100 October 14, 2020 10 :53pm Respiration 16 RPM 12-24 October 14, 2020 10 :53pm Pulse Oximetry 98 % 95-100 December 29 4:32pm Blood Pressure Systolic 138 100-140 [facility] 2020 4:32pm Blood Pressure Diastolic 97 50-85 [facility] 2020 4:32pm
--- OUTSIDE RECORDS SUMMARY | 2022-11-20 17:43 | XMS_ITS | Continuity of Care Document ---
Author Name Address [address] [place] [address] Organization Address [address] [place] [address] Care Team Providers Care Candle Molder Name Role Phone PCP, of Choice Primary [...] comment No comparison data on file at [facility]. Microcytic hypochromic anemia, consistent with iron deficiency. Smear reviewed by pathologist for director of quality improvement. Glenroy Mello MD 10/15/20 Prothrombin [...] be used to monitor LMWH therapy. Contact [facility] Pharmacy for monitoring information. Urine Color January 02, 2021 6:04pm Lauren Urine Clarity January 02, 2021 6:04pm very cloudy Urine pH January 02, 2021 6:04pm 6.0 Urine Specific [place] January 02, 2021 6:04pm 1.015 Urine Protein [...] have a copy on file here at [facility]? No October 14, 2020 11:22pm Does patient have an Advanced Directive? No October 14, 2020 11:22pm Pt has a Living Will? No October 14 11:22pm Pt has a Power of Cna Per Diem? No October 14, 2020 11:22pm Chief Complaint and Reason for Visit Encounter Admit Date Chief Complaint Reason for V isit Departed Emergency January 29, 2021 8:55pm OVARIAN C T Hospital Discharge Instructions Additional Discharge Instructions You we re seen in the ED for abdominal pain. Your lab work did not show any acute changes. Your CT scan from [facility] showed a left hemorrhagic ovarian cyst which is likely the cause of symptoms. You can treat the pain with ibuprofen 400 mg every 6 hours as needed. You can alternate with tylenol 500 mg every 6 hours if needed. You can take the ONDANSETRON as needed for nausea and vomiting. Follow up closely with your Director Internal Communications to discuss your symptoms and work up [...] Provider Departed [facility] Emergency Department January 29, 2021 8:55pm January 29, 2021 11:08pm Departed Emergency [facility] January 21, 2021 2:24pm January [...] 11:00pm Blood Pressure Diastolic 64 50-85 [facility] 2020 11:00pm
--- OUTSIDE RECORDS SUMMARY | 2022-11-20 17:43 | XMS_ITS | Continuity of Care Document ---
Author Name [facility] Address [address] [place] [address] Organization [facility] Address [address] [place] [address] Care Team Providers Care Supervisor Composing Room Name Role Phone Out of Town, Provider [...] Smear reviewed by pathologist for lead quality technician. Glenroy Mello MD 10/15/20 Prothrombin [...] January 02, 2021 6:04pm 6.0 Urine Specific [place] January 02, 2021 6:04pm 1.015 Urine Protein [...] Culture Ur,Clean Catch No results entered [facility] 2020 7:39pm Routine Culture Umbilicus Staphylococcus [...] 14 11:22pm Pt has a Power of Environmental Property Assessor? No October 14, 2020 11:22pm Chief Complaint and Reason for Visit Encounter Admit Date Chief Complaint Reason for V isit Departed Emergency August 07, 2021 11:58am RIGHT SIDE P AIN Hospital Discharge Instructions Additional Discharge Instructions Follow -up with your PCP and PICKING MACHINE OPERATOR for ongoing pain management or immediately here [...] Provider Departed Emergency [facility] Emergency Department August 07, 2021 11:58am August 07, 2021 5:15pm Departed Emergency [facility] Emergency Department June [...] [facility] Urgent [place] January 21, 2021 2:24pm January [...] August 07, 2021 5:10pm Respiration 20 RPM 05-07August 07, 2021 12:08pm Pulse Oximetry 96 % 95-100 August 07 5:10pm Blood Pressure Systolic 99 100-140 [facility] 2021 5:10pm Blood Pressure Diastolic 65 50-85 [facility] 2021 5:10pm
--- OUTSIDE RECORDS SUMMARY | 2022-11-20 17:43 | XMS_ITS | Continuity of Care Document ---
Author Name [facility] Address [address] [place] [address] Organization [facility] Address [address] [place] [address] Care Team Providers Care Milieu Therapist Name Role Phone Out of Town, [...] January 02, 2021 6:04pm 6.0 Urine Specific [place] January 02, 2021 6:04pm 1.015 Urine Protein [...] Urine Culture Ur,Clean Catch No results entered [facility] 2020 7:39pm Routine Culture Umbilicus [...] 14 11:22pm Pt has a Power of Target Protection Specialist? No October 14, 2020 11:22pm Chief [...] Departed [facility] Emergency Department August 10, 2021 2:19pm August 10, 2021 5:11pm Departed [facility] Emergency Department August 07, 2021 11:58am August 07, 2021 5[facility] June 27, 2021 2:30pm June 27, 2021 4:01[facility] March 27, 2021 11:49am March 27, 2021 2:32[facility] March 20, 2021 2:33pm March 20, 2021 6:25pm [facility] March 18, 2021 6:11pm March 18, 2021 9:19pm [facility] March 16, 2021 3:28pm March 16, 2021 10:43pm [facility] January 29, 2021 8:55pm January 29, 2021 11:08pm [facility] January 21, 2021 2:24pm January 21, 2021 4:51[facility] January 07, 2021 4:48pm January 07, 2021 6:55pm [facility] January 02, 2021 4:12pm January 02, 2021 7:22pm Departed [facility] Emergency Department December 29, 2020 4:23pm December 29, 2020 7:13pm [facility] October 14, [...] 10 5:10pm Blood Pressure Systolic 124 100-140 [facility] 2021 5:10pm Blood Pressure Diastolic 69 50-85 [facility] 2021 5:10pm
--- OUTSIDE RECORDS SUMMARY | 2022-11-20 17:43 | XMS_ITS | Continuity of Care Document ---
Author Name [facility] Address [address] [place] [address] Organization [facility] Address [address] [place] [address] Care Team Providers Care Entry Level Buyer Name Role Phone PCP, of Choice Primary [...] Smear reviewed by pathologist for software quality analyst. Glenroy Mello MD 10/15/20 [...] January 02, 2021 6:04pm 6.0 Urine Specific [place] January 02, 2021 6:04pm 1.015 Urine Protein [...] Ur,Clean Catch No results entered [facility] 2020 7:39pm Routine Culture Umbilicus Staphylococcus Aureus-Mrsa [...] 14 11:22pm Pt has a Power of Nail Puller? No October 14, 2020 11:22pm Chief Complaint and Reason for Visit Encounter Admit Date Chief Complaint Reason for V isit Departed Emergency September 23, 2021 3:02pm abdominal compl [facility] Hospital Discharge Instructions Additional Discharge Instructions Return tomorrow morning for ultrasound of your pelvis with a full bladder at 10 AM. Your test here was normal and your urine showed some mild dehydration. We strongly encourage you to keep in contact with your cook chef at the [facility]. It is important to keep [...] Attending Provider Departed [facility] Emergency Department September 23, 2021 3:02pm September 23, 2021 7:35pm Departed [facility] Emergency Department August 26, 2021 5:22pm August 26, 2021 7:15pm Departed [facility] Emergency Department August 10, 2021 2:19pm August 10, 2021 5:11pm Departed [facility] Emergency Department August 07, 2021 11:58am August 07, 2021 5:15pm Departed [facility] Emergency Department June 27, 2021 2:30pm June 27, 2021 4:[facility] March 27, 2021 11:49am March 27, 2021 2:32pm Departed [facility] Emergency Department March 20, 2021 2:33pm March 20, 2021 6:25pm [facility] March 18, 2021 6:11pm March 18, 2021 9:19pm Departed [facility] Emergency Department March 16, 2021 3:28pm March 16, 2021 10:43pm Departed [facility] Emergency Department January 29, 2021 8:55pm January 29, 2021 11:08pm [facility] January 21, 2021 2:24pm January 21, 2021 4:51pm [facility] January 07, 2021 4:48pm January 07, 2021 6:55pm [facility] January 02, 2021 4:12pm January 02, 2021 7:22pm [facility] December 29, 2020 4:23pm December 29, 2020 7:13pm [facility] October 14, 2020 10:48pm [...]
--- OUTSIDE RECORDS SUMMARY | 2022-11-20 17:44 | XMS_ITS | Continuity of Care Document ---
Author Name Unknown Address [address] [place] [address] Phone [facility] Address [address] [place] [address] Phone Care Team Providers Care Risk Consultant Name Role Phone PCP, of Choice Primary Care Provider Unavailabl e Out of Town, Provider Primary Care Provider Unav ailable Chief Complaint and Reason for Visit Chief Complaint LEFT FLANK PAIN ORAL INFECTION RECTAL BLEEDING abdominal pain OVARIAN CYST POST OP CONCERN ABDOMINAL PAIN HEAVY VAG BLEEDING Allergies, Adverse Reactions, Alerts Allergen Type Severity Reaction Last Updated Verified Status haloperidol Allergy rash January 3:08pm Yes Active ketorolac Allergy anaphylaxis December 29, 2020 4:35pm Yes Active latex Allergy rash December 29, 2 021 4:35pm Yes Active Penicillins Allergy hives December 29, 2020 4:35pm Yes Active prochlorperazine Allergy hives December 132020 4:35pm Yes Active Social History Smoking Status Status Start Date End Date Date of Observa tion Never smoked tobacco (finding) March 20, 2021 4:48pm Observation Status Observation Response Date of Response Alcohol Use Yes March 20 4:48pm alcohol intake frequency a few times a month Nov ember 2020 4:48pm Alcohol type hard liquor March 20 4:48pm Substance/Street Drug Use Yes Novemb er 2020 4:48pm substance use type marijuana March 20, 2021 4:48pm Smoking Status Never smoker March 20 4:48pm Additional Data Assigned Sex Female Problems Active Problems Medical Problem Onset Date Status Pelvic pain Active Diarrhea Active 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 Vaginal bleeding Active Endometriosis Active Vomiting Active Inactive/Resolved Problems Medical Problem Onset Date Status Ovarian cyst Resolved Functional abdominal pain syndrome Resolved Gastritis Resolved Post-operative pain Resolved Pain, dental Resolved Pain, dental Resolved Iron deficiency anemia Resolved Abdominal pain Resolved Abdominal pain Resolved Hemorrhagic cyst of left ovary R esolved Medications Medication Status Dose Units Route Directions Qty Days St art Date End Date Instructions Sertraline Active 100 MG PO DAILY October 14, 2020 11:02pm Docusate Sodium Active 50 MG PO TWICE A DAY October 14, 2020 11:02pm Trazodone Active 100 MG PO BEDTIME October 14, 2020 11:02pm Hydroxyzine Hcl Active 100 MG PO BEDTIME October 14, 2020 11:02pm Ferrous Sulfate Discontin ued 325 MG PO DAILY October 15, 2020 2:57pm Novemb er 2020 5:42pm Hydrocodone- Acetaminophe n Discontin ued TABLET December 29, 2020 4:35pm January 07, 2021 5:04pm Cefdinir Discontin ued 300 MG PO TWICE A DAY Janemb er 2020 4:03pm Septem rinku 2020 9:07pm Tramadol Discontin ued 50 MG PO Q8H 10 Septemb er 2020 4:44pm Septem rinku 2020 9:06pm Gabapentin Active 200 MG PO DAILY January 02, 2021 5:12pm Hydrocodone- Acetaminophe n Discontin ued 1 TAB PO Q6H 9 January 02, 2021 6:26pm January 07, 2021 5:04pm Ondansetron Active 4 MG PO Q6H 10 Augus 2020 6:26pm Famotidine-C a Carb-Mag Hydrox (Pepcid Complete) 10-800-165 mg tablet,chewa ble Discontin ued 1 TAB PO DAILY January 08, 2021 1:50am Septem rniku 2020 9:07pm Dicyclomine Discontin ued 10 MG PO .q6 prn January 08, 2021 1:51am Septem rinku 2020 3:08pm Oxycodone Active MG CAPSULE Novemb e r 2020 3:59pm Fluticasone Propion-Salm eterol (Advair Hfa) 115-21 mcg/actuatio n HFA aerosol inhaler Active INH be r 2020 3:59pm Ondansetron Hcl (Zofran) 4 mg tablet Active 4 MG PO Q8H 12 4 Novembe r 2020 5:45pm Sulfamethoxa zole-Trimeth oprim (Bactrim Ds) 800-160 mg tablet Active 1 TAB PO TWICE A DAY 14 r 2020 7:52pm Procedures Procedure Date Performed Status US Pelvic Non-OB (Complete) March 20, 2021 5 :24pm active CT Abd Pel w/ Contrast March 16, 2021 4:09pm completed Gram Stain March 16, 2021 completed Routine Culture March 16, 2021 completed Urine Culture March 16, [address] Abd Pel w/ Contrast January 02, 2021 4:51pm completed Urine Culture January 02, 2021 completed Blood Culture March 18, 2021 active Relevant Diagnostic Tests and/or Laboratory Data Laboratory Results Test Date/Time Result Interpretation Reference Range Result Comment Performing Site White Blood Count October 14, 2020 11:38pm 7.41 1000/mm3 4.8-10.8 MA[facility] [address] [place] [address] White Blood Count January 02, 2021 4:44pm 6.81 1000/mm3 4.8-10.8 MAIN LAB [address] [address] White Blood Count January 07, 2021 5:35pm 5.33 1000/mm3 4.8-10.8 MA[facility] [address] [address] White Blood Count January 29, 2021 9:57pm 5.85 1000/mm3 4.8-10.8 MA[facility] [address] [address] White Blood Count March 16, 2021 5:34pm 6.11 1000/mm3 4.8-10.8 MA[facility] [address] [address] White Blood Count March 18, 2021 7:56pm 5.26 1000/mm3 4.8-10.8 MA[facility] [address] [address] White Blood Count March 20, 2021 4:37pm 4.94 1000/mm3 4.8-10.8 MA[facility] [address] [address] Red Blood Count October 14, 2020 11:38pm 4.44 M/mm3 4.20-5.40 [facility] [address] [place] [address] Red Blood Count January 02, 2021 4:44pm 4.67 M/mm3 4.20-5.40 MAIN [facility] [address] [address] Red Blood Count January 07, 2021 5:35pm 4.85 M/mm3 4.20-5.40 MAIN [facility] [address] [address] Red Blood Count January 29, 2021 9:57pm 4.53 M/mm3 4.20-5.40 MA[facility] [address] [address] Red Blood Count March 16, 2021 5:34pm 4.26 M/mm3 4.20-5.40 MA[facility] [address] [address] Red Blood Count March 18, 2021 7:56pm 4.17 M/mm3 4.20-5.40 MAIN [facility] [address] [address] Red Blood Count March 20, 2021 4:37pm 4.14 M/mm3 4.20-5.40 MAIN [facility] [address] [address] Hemoglobin October 14, 2020 11:38pm 9.2 g/dL 12.0-16.0 [facility] [address] [place] [address] Hemoglobin January 02, 2021 4:44pm 10.4 g/dL 12.0-16.0 MAIN [facility] [address] [address] Hemoglobin January 07, 2021 5:35pm 10.8 g/dL 12.0-16.0 MAIN [facility] [address] [address] Hemoglobin January 29, 2021 9:57pm 10.4 g/dL 12.0-16.0 MAIN [facility] [address] [address] Hemoglobin March 16, 2021 5:34pm 9.9 g/dL 12.0-16.0 MA[facility] [address] [address] Hemoglobin March 18, 2021 7:56pm 9.9 g/dL 12.0-16.0 MAIN [facility] [address] [address] Hemoglobin March 20, 2021 4:37pm 9.8 g/dL 12.0-16.0 MA[facility] [address] [address] Hematocrit October 14, 2020 11:38pm 30.6 % 37-47 [facility] [address] [place] [address] Hematocrit January 02, 2021 4:44pm 35.2 % 37-47 MAIN [facility] [address] [address] Hematocrit January 07, 2021 5:35pm 36.3 % 37-47 MAIN [facility] [address] [address] Hematocrit January 29, 2021 9:57pm 33.7 % 37-47 MAIN [facility] [address] [address] Hematocrit March 16, 2021 5:34pm 33.2 % 37-47 MAIN LAB [facility] [address] [address] Hematocrit March 18, 2021 7:56pm 32.9 % 37-47 MAIN LAB [facility] [address] [address] Hematocrit March 20, 2021 4:37pm 32.6 % 37-47 MAIN [facility] [address] [address] Mean Corpuscular Volume October 14, 2020 11:38pm 68.9 fL 81.0-99.0 MA[facility] [address] [place] [address] Mean Corpuscular Volume January 02, 2021 4:44pm 75.4 fL 81.0-99.0 MAIN [facility] [address] [address] Mean Corpuscular Volume January 07, 2021 5:35pm 74.8 fL 81.0-99.0 MAIN [facility] [address] [address] Mean Corpuscular Volume January 29, 2021 9:57pm 74.4 fL 81.0-99.0 MAIN [facility] [address] [address] Mean Corpuscular Volume March 16, 2021 5:34pm 77.9 fL 81.0-99.0 MAIN [facility] [address] [address] Mean Corpuscular Volume March 18, 2021 7:56pm 78.9 fL 81.0-99.0 MAIN [facility] [address] [address]67 Mean Corpuscular Volume March 20, 2021 4:37pm 78.7 fL 81.0-99.0 MAIN LAB [address] [address] Mean Corpuscular Hemoglobin October 14, 2020 11:38pm 20.7 pg 27-31 MAIN [facility] [address] [place] [address]202 Mean Corpuscular Hemoglobin January 02, 2021 4:44pm 22.3 pg 27-31 MAIN LAB [facility] [address] [address] Mean Corpuscular Hemoglobin January 07, 2021 5:35pm 22.3 pg 27-31 MA[facility] [address] [address] Mean Corpuscular Hemoglobin January 29, 2021 9:57pm 23.0 pg 27-31 MA[facility] [address] [address] Mean Corpuscular Hemoglobin March 16, 2021 5:34pm 23.2 pg 27-31 MA[facility] [address] [address] Mean Corpuscular Hemoglobin March 18, 2021 7:56pm 23.7 pg 27-31 MAIN LAB [address] [address] Mean Corpuscular Hemoglobin March 20, 2021 4:37pm 23.7 pg 27-31 MA[facility] [address] [address] Mean Corpuscular Hemoglobin Concent October 14, 2020 11:38pm 30.1 g/dL 33-37 [facility] [address] [address] Mean Corpuscular Hemoglobin Concent January 02, 2021 4:44pm 29.5 g/dL 33-37 MAIN LAB [facility] [address] [address] Mean Corpuscular Hemoglobin Concent January 07, 2021 5:35pm 29.8 g/dL 33-37 MAIN LAB [facility] [address] [address] Mean Corpuscular Hemoglobin Concent January 29, 2021 9:57pm 30.9 g/dL 33-37 MAIN [facility] [address] [address] Mean Corpuscular Hemoglobin Concent March 16, 2021 5:34pm 29.8 g/dL 33-37 MAIN LAB [facility] [address] [address] Mean Corpuscular Hemoglobin Concent March 18, 2021 7:56pm 30.1 g/dL 33-37 MAIN LAB [facility] [address] [address] Mean Corpuscular Hemoglobin Concent March 20, 2021 4:37pm 30.1 g/dL 33-37 MAIN LAB [address] [address] Red Cell Distribution Width October 14, 2020 11:38pm 16.8 % 11.5-14.5 MA[facility] [address] [place] [address] Red Cell Distribution Width January 02, 2021 4:44pm 19.4 % 11.5-14.5 MAIN [facility] [address] [address] Red Cell Distribution Width January 07, 2021 5:35pm 18.6 % 11.5-14.5 MAIN [facility] [address] [address] Red Cell Distribution Width January 29, 2021 9:57pm 17.6 % 11.5-14.5 MAIN [facility] [address] [address] Red Cell Distribution Width March 16, 2021 5:34pm 16.2 % 11.5-14.5 MAIN [facility] [address] [address] Red Cell Distribution Width March 18, 2021 7:56pm 16.4 % 11.5-14.5 MAIN [facility] [address] [address] Red Cell Distribution Width March 20, 2021 4:37pm 16.5 % 11.5-14.5 MA[facility] [address] [address] Platelet Count October 14, 2020 11:38pm 250 1000/mm3 140-440 MA[facility] [address] [place] [address]26 Platelet Count January 02, 2021 4:44pm 216 1000/mm3 140-440 MAIN [facility] [address] [address] Platelet Count January 07, 2021 5:35pm 240 1000/mm3 140-440 MAIN [facility] [address] [address] Platelet Count January 29, 2021 9:57pm 248 1000/mm3 140-440 MAIN [facility] [address] [address] Platelet Count March 16, 2021 5:34pm 220 1000/mm3 140-440 MAIN [facility] [address] [address] Platelet Count March 18, 2021 7:56pm 212 1000/mm3 140-440 MAIN [facility] [address] [address] Platelet Count March 20, 2021 4:37pm 177 1000/mm3 140-440 MAIN [facility] [address] [address] Mean Platelet Volume October 14, 2020 11:38pm 10.6 fL 7.4-10.4 [facility] [address] [place] [address] 60034 Mean Platelet Volume January 02, 2021 4:44pm 10.7 fL 7.4-10.4 MAIN [facility] [address] [address] Mean Platelet Volume January 07, 2021 5:35pm 11.3 fL 7.4-10.4 MAIN [facility] [address] [address] Mean Platelet Volume January 29, 2021 9:57pm 10.6 fL 7.4-10.4 MAIN [facility] [address] [address]47 Mean Platelet Volume March 16, 2021 5:34pm 10.6 fL 7.4-10.4 MAIN [facility] [address] [address] Mean Platelet Volume March 18, 2021 7:56pm 10.4 fL 7.4-10.4 MA[facility] [address] [address]491 Mean Platelet Volume March 20, 2021 4:37pm 9.9 fL 7.4-10.4 MAIN [facility] [address] [address] Neutrophils (%) (Auto) October 14, 2020 11:38pm 60.3 % 40.0-72.0 MA[facility] [address] [place] [address]38 Neutrophils (%) (Auto) January 02, 2021 4:44pm 64.3 % 40.0-72.0 MAIN LAB [address] [address] Neutrophils (%) (Auto) January 07, 2021 5:35pm 51.4 % 40.0-72.0 MAIN LAB [address] [address] Neutrophils (%) (Auto) January 29, 2021 9:57pm 57.7 % 40.0-72.0 MAIN LAB [address] [address] Neutrophils (%) (Auto) March 16, 2021 5:34pm 62.5 % 40.0-72.0 MAIN [facility] [address] [address] Neutrophils (%) (Auto) March 18, 2021 7:56pm 57.9 % 40.0-72.0 MAIN LAB [address] [address] Neutrophils (%) (Auto) March 20, 2021 4:37pm 64.0 % 40.0-72.[address] [address] Lymphocytes (%) (Auto) October 14, 2020 11:38pm 29.0 % 17-45 MA[facility] LAB [address] [place] [address] Lymphocytes (%) (Auto) January 02, 2021 4:44pm 26.3 % 17-45 MAIN LAB [address] [address] Lymphocytes (%) (Auto) January 07, 2021 5:35pm 37.7 % 17-[address] [address] Lymphocytes (%) (Auto) January 29, 2021 9:57pm 32.6 % 17-[address] [address] Lymphocytes (%) (Auto) March 16, 2021 5:34pm 26.7 % 17-45 MAIN LAB [address] [address] Lymphocytes (%) (Auto) March 18, 2021 7:56pm 30.4 % 17-45 [facility] [address] [address] Lymphocytes (%) (Auto) March 20, 2021 4:37pm 26.1 % 17-45 MAIN LAB [address] [address] Monocytes (%) (Auto) October 14, 2020 11:38pm 8.2 % 3-11 MAIN LAB [address] [place] [address] Monocytes (%) (Auto) January 02, 2021 4:44pm 6.2 % 3-11 MAIN LAB [address] [address] Monocytes (%) (Auto) January 07, 2021 5:35pm 6.0 % 3-11 MAIN [facility] [address] [address] Monocytes (%) (Auto) January 29, 2021 9:57pm 6.5 % 3-11 MAIN LAB [address] [address] Monocytes (%) (Auto) March 16, 2021 5:34pm 6.9 % 3-11 [facility] [address] [address] Monocytes (%) (Auto) March 18, 2021 7:56pm 7.2 % 3-11 MAIN LAB [address] [address] Monocytes (%) (Auto) March 20, 2021 4:37pm 5.9 % 3-11 MAIN LAB [address] [address] Eosinophils (%) (Auto) October 14, 2020 11:38pm 1.1 % 0-3 [facility] [address] [place] [address] 31298 Eosinophils (%) (Auto) January 02, 2021 4:44pm 2.2 % 0-3 [facility] [address] [address] Eosinophils (%) (Auto) January 07, 2021 5:35pm 3.2 % 0-3 MAIN [facility] [address] [address] Eosinophils (%) (Auto) January 29, 2021 9:57pm 1.7 % 0-3 [facility] [address] [address] Eosinophils (%) (Auto) March 16, 2021 5:34pm 2.6 % 0-3 MAIN [facility] [address] [address] Eosinophils (%) (Auto) March 18, 2021 7:56pm 3.2 % 0-3 [facility] [address] [address] Eosinophils (%) (Auto) March 20, 2021 4:37pm 2.8 % 0-3 MAIN [facility] [address] [address] Basophils (%) (Auto) October 14, 2020 11:38pm 1.3 % 0-1 [facility] [address] [place] [address] 9[address]05 Basophils (%) (Auto) January 02, 2021 4:44pm 0.9 % 0-1 MA[facility] [address] [address] Basophils (%) (Auto) January 07, 2021 5:35pm 1.5 % 0-1 MA[facility] [address] [address] Basophils (%) (Auto) January 29, 2021 9:57pm 1.2 % 0-1 MA[facility] [address] [address] Basophils (%) (Auto) March 16, 2021 5:34pm 1.1 % 0-1 MA[facility] [address] [address]207 Basophils (%) (Auto) March 18, 2021 7:56pm 1.1 % 0-[address] [address] Basophils (%) (Auto) March 20, 2021 4:37pm 1.0 % 0-1 [facility] [address] [address] Immature Granulocyte % (Auto) October 14, 2020 11:38pm 0.1 % 0-1 MA[facility] [address] [place] [address]25 Immature Granulocyte % (Auto) January 02, 2021 4:44pm 0.1 % 0-1 MA[facility] [address] [address] Immature Granulocyte % (Auto) January 07, 2021 5:35pm 0.2 % 0-1 [facility] [address] [address] Immature Granulocyte % (Auto) January 29, 2021 9:57pm 0.3 % 0-1 MA[facility] [address] [address] Immature Granulocyte % (Auto) March 16, 2021 5:34pm 0.2 % 0-1 MA[facility] [address] [address] Immature Granulocyte % (Auto) March 18, 2021 7:56pm 0.2 % 0-1 MA[facility] [address] 77821 Immature Granulocyte % (Auto) March 20, 2021 4:37pm 0.2 % 0-1 MA[facility] [address] [address] Neutrophils # (Auto) October 14, 2020 11:38pm 4.46 1000/mm3 1.4-6.5 [facility] [address] [place] [address]34 Neutrophils # (Auto) January 02, 2021 4:44pm 4.38 1000/mm3 1.4-6.5 MA[facility] [address] [address] Neutrophils # (Auto) January 07, 2021 5:35pm 2.74 1000/mm3 1.4-6.5 MA[facility] [address] [address] Neutrophils # (Auto) January 29, 2021 9:57pm 3.37 1000/mm3 1.4-6.5 MA[facility] [address] [address] Neutrophils # (Auto) March 16, 2021 5:34pm 3.82 1000/mm3 1.4-6.5 MA[facility] LAB [address] [address] Neutrophils # (Auto) March 18, 2021 7:56pm 3.04 1000/mm3 1.4-6.5 MA[facility] [address] [address] Neutrophils # (Auto) March 20, 2021 4:37pm 3.16 1000/mm3 1.4-6.5 MA[facility] [address] [address] Lymphocytes # (Auto) October 14, 2020 11:38pm 2.15 1000/mm3 1.2-3.4 MA[facility] [address] [place] [address] Lymphocytes # (Auto) January 02, 2021 4:44pm 1.79 1000/mm3 1.2-3.4 MA[facility] [address] [address] Lymphocytes # (Auto) January 07, 2021 5:35pm 2.01 1000/mm3 1.2-3.4 MA[facility] [address] [address] Lymphocytes # (Auto) January 29, 2021 9:57pm 1.91 1000/mm3 1.2-3.4 MA[facility] [address] [address] Lymphocytes # (Auto) March 16, 2021 5:34pm 1.63 1000/mm3 1.2-3.4 MA[facility] [address] [address] Lymphocytes # (Auto) March 18, 2021 7:56pm 1.60 1000/mm3 1.2-3.4 MA[facility] [address] [address] Lymphocytes # (Auto) March 20, 2021 4:37pm 1.29 1000/mm3 1.2-3.4 MA[facility] [address] [address] Monocytes # (Auto) October 14, 2020 11:38pm 0.61 1000/mm3 0.0-0.8 [facility] [address] [place] [address]36 Monocytes # (Auto) January 02, 2021 4:44pm 0.42 1000/mm3 0.0-0.8 [facility] [address] [address] Monocytes # (Auto) January 07, 2021 5:35pm 0.32 1000/mm3 0.0-0.8 MA[facility] [address] [address] Monocytes # (Auto) January 29, 2021 9:57pm 0.38 1000/mm3 0.0-0.8 MA[facility] [address] [address] Monocytes # (Auto) March 16, 2021 5:34pm 0.42 1000/mm3 0.0-0.8 [facility] [address] [address] Monocytes # (Auto) March 18, 2021 7:56pm 0.38 1000/mm3 0.0-0.8 [facility] [address] [address]478 Monocytes # (Auto) March 20, 2021 4:37pm 0.29 1000/mm3 0.0-0.8 MA[facility] [address] [address] Eosinophils # (Auto) October 14, 2020 11:38pm 0.08 1000/mm3 0.0-0.7 MA[facility] [address] [place] [address]193 Eosinophils # (Auto) January 02, 2021 4:44pm 0.15 1000/mm3 0.0-0.7 MA[facility] [address] [address] Eosinophils # (Auto) January 07, 2021 5:35pm 0.17 1000/mm3 0.0-0.7 MA[facility] [address] [address] Eosinophils # (Auto) January 29, 2021 9:57pm 0.10 1000/mm3 0.0-0.7 MA[facility] [address] [address]49 Eosinophils # (Auto) March 16, 2021 5:34pm 0.16 1000/mm3 0.0-0.7 MA[facility] [address] 19074 Eosinophils # (Auto) March 18, 2021 7:56pm 0.17 1000/mm3 0.0-0.7 MA[facility] [address] [address] Eosinophils # (Auto) March 20, 2021 4:37pm 0.14 1000/mm3 0.0-0.7 MA[facility] [address] [address] Basophils # (Auto) October 14, 2020 11:38pm 0.10 1000/mm3 0.0-0.1 [facility] [address] [place] [address] 20946 Basophils # (Auto) January 02, 2021 4:44pm 0.06 1000/mm3 0.0-0.1 MA[facility] [address] [address] Basophils # (Auto) January 07, 2021 5:35pm 0.08 1000/mm3 0.0-0.1 MA[facility] [address] [address] Basophils # (Auto) January 29, 2021 9:57pm 0.07 1000/mm3 0.0-0.1 MA[facility] [address] [address] Basophils # (Auto) March 16, 2021 5:34pm 0.07 1000/mm3 0.0-0.1 MA[facility] [address] [address] Basophils # (Auto) March 18, 2021 7:56pm 0.06 1000/mm3 0.0-0.1 MA[facility] [address] [address] Basophils # (Auto) March 20, 2021 4:37pm 0.05 1000/mm3 0.0-0.1 MA[facility] [address] [address] Absolute Immature Granulocyte (auto October 14, 2020 11:38pm 0.0 0-1 [facility] [address] [place] [address]683 Absolute Immature Granulocyte (auto January 02, 2021 4:44pm 0.0 0-1 MAIN [facility] [address] [address] Absolute Immature Granulocyte (auto January 07, 2021 5:35pm 0.0 0-1 MA[facility] [address] [address]392 Absolute Immature Granulocyte (auto January 29, 2021 9:57pm 0.0 0-1 MA[facility] [address] [address]3273 Absolute Immature Granulocyte (auto March 16, 2021 5:34pm 0.0 0-1 MA[facility] [address] 8[address]18 Absolute Immature Granulocyte (auto March 18, 2021 7:56pm 0.0 0-1 MA[facility] [address] [address] Absolute Immature Granulocyte (auto March 20, 2021 4:37pm 0.0 0-1 MA[facility] [address] [address] Differential Method October 14, 2020 11:38pm Automated [facility] [address] [place] [address]342 Differential Method January 02, 2021 4:44pm Automated MAIN LAB [address] [place] [address] Differential Method January 07, 2021 5:35pm Automated MAIN LAB [address] [place] [address] Differential Method January 29, 2021 9:57pm Automated MAIN [facility] [address] [address] Differential Method March 16, 2021 5:34pm Automated MAIN LAB [address] [place] [address] Differential Method March 18, 2021 7:56pm Automated MAIN LAB [address] [address] Differential Method March 20, 2021 4:37pm Automated MAIN LAB [address] [address] Differential Pathologist's Review October 14, 2020 11:38pm See comment No comparison data on file at [facility]. Microcytic hypochromic anemia, consistent with iron deficiency.S veronica reviewed by pathologist for quality eng.Hair Mello MD10/15/20 MAIN LAB [address] [place] [address]80 Prothrombin Time October 14, 2020 11:38pm 10.8 SECONDS 9.6-11.2 [facility] [address] [place] [address] 49240 Prothromb Time International Ratio October 14, 2020 11:38pm 1.1 2.0-3.0 INR value valid only on patients on stabilized warfarin therapy. The recommended therapeutic range for warfarin (Coumadin) for most clinical indications is an INR of 2.0-3.0. An INR of 2.5-3.5 is recommended for patients with mechanical heart valves. MAIN LAB [address] [place] [address]99 Activated Partial Thromboplast Time October 14, 2020 11:38pm 26.1 SECONDS 21.6-36.0 A target of 1.5-2.5 times the mean of the normal reference range is considered therapeutic. NOTE: APTT must NOT be used to monitor LMWH therapy. Contact [facility] for monitoring information. MAIN LAB [address] [place] [address] 67872 Urine Color January 02, 2021 6:04pm Lauren MAIN LAB [address] [address] Urine Clarity January 02, 2021 6:04pm very cloudy MAIN LAB [address] [address] Urine pH January 02, 2021 6:04pm 6.0 MAIN LAB [address] [address] Urine Specific [place] January 02, 2021 6:04pm 1.015 MAIN LAB [address] [address] Urine Protein January 02, 2021 6:04pm 100 (2+) mg/dL NEGATIVE MAIN [facility] [address] [address] Urine Glucose (UA) January 02, 2021 6:04pm Normal mg/dL NORMAL MAIN LAB [address] [address] Urine Ketones January 02, 2021 6:04pm Negative NEGATIVE MAIN LAB [address] [address] Urine Nitrite January 02, 2021 6:04pm Negative Negative MAIN LAB [address] [address] Urine Bilirubin January 02, 2021 6:04pm Negative mg/dL NEGATIVE MAIN LAB [address] [address] Urine Urobilinogen January 02, 2021 6:04pm Normal mg/dL NORMAL MAIN LAB [address] [address] Urine Leukocyte Esterase January 02, 2021 6:04pm Moderate (2+) WBC/uL NEGATIVE MAIN LAB [address] [address] Urine Blood January 02, 2021 6:04pm Large (3+) JOEL/uL NEGATIVE MAIN LAB [address] [address] Urine RBC October 14, 2020 11:45pm 10-20 /hpf MAIN LAB [address] [place] [address]15 Urine RBC January 02, 2021 6:04pm Tntc /hpf MAIN LAB [address] [address] Urine RBC March 16, 2021 6:40pm Tntc /hpf MAIN LAB [address] [address] Urine WBC October 14, 2020 11:45pm 0-2 /hpf MAIN LAB [address] [place] [address] 36779 Urine WBC January 02, 2021 6:04pm 3-5 /hpf MAIN LAB [address] [address] Urine WBC March 16, 2021 6:40pm See comment /hpf Microscopic field obscured by RBC. MAIN LAB [address] [address] Urine Squamous Epithelial Cells January 02, 2021 6:04pm 1+ /hpf MAIN LAB [address] [address] Urine Bacteria October 14, 2020 11:45pm 1+ /hpf NONE SEEN MAIN LAB [address] [place] [address] 39377 Urine Bacteria January 02, 2021 6:04pm None seen /hpf NONE SEEN MAIN LAB [address] [address] Urine Bacteria March 16, 2021 6:40pm See comment /hpf NONE SEEN Microscopic field obscured by RBC. MAIN LAB [address] [address] Urine Mucus October 14, 2020 11:45pm Present MAIN LAB [address] [place] [address] 84136 Urine Culture Done October 14, 2020 11:45pm No CULTURE NOT INDICATED. MAIN LAB [address] [place] [address] Urine Culture Done January 02, 2021 6:04pm Yes URINE SPECIMEN CULTURED MAIN LAB [address] [address] Urine Culture Done March 16, 2021 6:40pm Yes URINE SPECIMEN CULTURED MAIN LAB [address] [address] Urine Test January 02, 2021 6:04pm Negative NEGATIVE MAIN LAB [address] [address] Sodium Level October 14, 2020 11:38pm 138 mmol/L 137-145 MAIN LAB [address] [place] [address] Sodium Level January 02, 2021 4:44pm 141 mmol/L 137-145 MAIN LAB [address] [address] Sodium Level January 07, 2021 5:35pm 140 mmol/L 137-145 MAIN LAB [facility] [address] [facility] [address] Sodium Level January 29, 2021 9:57pm 137 mmol/L 137-145 MAIN LAB [facility] [address] [facility] [address] Sodium Level March 16, 2021 5:34pm 137 mmol/L 137-145 MAIN LAB [address] [address] Sodium Level March 18, 2021 7:56pm 141 mmol/L 137-145 MAIN LAB [address] [address] Sodium Level March 20, 2021 5:04pm 140 mmol/L 137-145 MAIN LAB [address] [address] Potassium Level October 14, 2020 11:38pm 3.8 mmol/L 3.6-5.0 MAIN LAB [address] [place] [address] Potassium Level January 02, 2021 4:44pm 3.9 mmol/L 3.6-5.0 MAIN LAB [address] [address] Potassium Level January 07, 2021 5:35pm 3.7 mmol/L 3.6-5.0 MAIN LAB [address] [address] Potassium Level January 29, 2021 9:57pm 3.5 mmol/L 3.6-5.0 MAIN LAB [address] [address] Potassium Level March 16, 2021 5:34pm 4.0 mmol/L 3.6-5.0 MAIN LAB [address] [address] Potassium Level March 18, 2021 7:56pm 3.4 mmol/L 3.6-5.0 MAIN LAB [address] [address] Potassium Level March 20, 2021 5:04pm 3.8 mmol/L 3.6-5.0 MAIN LAB [address] [address] Chloride Level October 14, 2020 11:38pm 100 mmol/L 98-107 MAIN LAB [address] [facility] [address] Chloride Level January 02, 2021 4:44pm 104 mmol/L 98-107 MAIN LAB [facility] [address] [facility] [address] Chloride Level January 07, 2021 5:35pm 103 mmol/L 98-107 MAIN LAB [facility] [address] [facility] [address] Chloride Level January 29, 2021 9:57pm 99 mmol/L 98-107 MAIN LAB [facility] [address] [facility] [address] Chloride Level March 16, 2021 5:34pm 102 mmol/L 98-107 MAIN LAB [facility] [address] [facility] [address] Chloride Level March 18, 2021 7:56pm 102 mmol/L 98-107 MAIN LAB [facility] [address] [facility] [address] Chloride Level March 20, 2021 5:04pm 103 mmol/L 98-107 MAIN LAB [facility] [address] [facility] [address] Carbon Dioxide Level October 14, 2020 11:38pm 25 mmol/L 22-30 MAIN LAB [address] [place] [address] Carbon Dioxide Level January 02, 2021 4:44pm 26 mmol/L 22-30 MAIN LAB [facility] [address] [facility] [address] Carbon Dioxide Level January 07, 2021 5:35pm 27 mmol/L 22-30 MAIN LAB [facility] [address] [facility] [address] Carbon Dioxide Level January 29, 2021 9:57pm 27 mmol/L 22-30 MAIN LAB [facility] [address] [facility] [address] Carbon Dioxide Level March 16, 2021 5:34pm 28 mmol/L 22-30 MAIN LAB [facility] [address] [facility] [address] Carbon Dioxide Level March 18, 2021 7:56pm 29 mmol/L 22-30 MAIN LAB [facility] [address] [facility] [address] Carbon Dioxide Level March 20, 2021 5:04pm 27 mmol/L 22-30 MAIN LAB [facility] [address] [facility] [address] Anion Gap October 14, 2020 11:38pm 13 7-16 MAIN LAB [address] [facility] [address] Anion Gap January 02, 2021 4:44pm 11 7-16 MAIN LAB [facility] [address] [facility] [address] Anion Gap January 07, 2021 5:35pm 10 7-16 MAIN LAB [facility] [address] [facility] [address] Anion Gap January 29, 2021 9:57pm 11 7-16 MAIN LAB [address] [address] Anion Gap March 16, 2021 5:34pm 7 7-16 MAIN LAB [address] [address] Anion Gap March 18, 2021 7:56pm 10 7-16 MAIN LAB [address] [address] Anion Gap March 20, 2021 5:04pm 10 7-16 MAIN LAB [address] [address] Blood Urea Nitrogen October 14, 2020 11:38pm 15 mg/dL 7-17 MAIN LAB [address] [place] [address] Blood Urea Nitrogen January 02, 2021 4:44pm 11 mg/dL 7-17 MAIN LAB [address] [address] Blood Urea Nitrogen January 07, 2021 5:35pm 13 mg/dL 7-17 MAIN LAB [facility] [address] [facility] [address] Blood Urea Nitrogen January 29, 2021 9:57pm 13 mg/dL 7-17 MAIN LAB [address] [address] Blood Urea Nitrogen March 16, 2021 5:34pm 10 mg/dL 7-17 MAIN LAB [address] [address] Blood Urea Nitrogen March 18, 2021 7:56pm 10 mg/dL 7-17 MAIN LAB [address] [address] Blood Urea Nitrogen March 20, 2021 5:04pm 5 mg/dL 7-17 MAIN LAB [address] [address] Creatinine October 14, 2020 11:38pm 0.76 mg/dL 0.52-1.04 MAIN LAB [address] [place] [address] Creatinine January 02, 2021 4:44pm 0.76 mg/dL 0.52-1.04 MAIN LAB [address] [address] Creatinine January 07, 2021 5:35pm 0.79 mg/dL 0.52-1.04 MAIN LAB [address] [address] Creatinine January 29, 2021 9:57pm 0.84 mg/dL 0.52-1.04 MAIN LAB [address] [address] Creatinine March 16, 2021 5:34pm 0.62 mg/dL 0.52-1.04 MAIN LAB [address] [address] Creatinine March 18, 2021 7:56pm 0.66 mg/dL 0.52-1.04 MAIN LAB [address] [address] Creatinine March 20, 2021 5:04pm 0.59 mg/dL 0.52-1.04 MAIN LAB [address] [address] Glomerular Filtration Rate Calc October 14, 2020 11:38pm > 60 mL/min >60.0 MAIN LAB [address] [place] [address] Glomerular Filtration Rate Calc January 02, 2021 4:44pm > 60 mL/min >60.0 MAIN LAB [address] [address] Glomerular Filtration Rate Calc January 07, 2021 5:35pm > 60 mL/min >60.0 MAIN LAB [address] [address] Glomerular Filtration Rate Calc January 29, 2021 9:57pm > 60 mL/min >60.0 MAIN LAB [address] [address] Glomerular Filtration Rate Calc March 16, 2021 5:34pm > 60 mL/min >60.0 MAIN LAB [address] [address] Glomerular Filtration Rate Calc March 18, 2021 7:56pm > 60 mL/min >60.0 MAIN LAB [facility] [address] [facility] [address] Glomerular Filtration Rate Calc March 20, 2021 5:04pm > 60 mL/min >60.0 MAIN LAB [facility] [address] [facility] [address] Glucose Level October 14, 2020 11:38pm 88 mg/dL 70-100 MAIN LAB [address] [facility] [address] Glucose Level January 02, 2021 4:44pm 88 mg/dL 70-100 MAIN LAB [facility] [address] [facility] [address] Glucose Level January 07, 2021 5:35pm 105 mg/dL 70-100 MAIN LAB [facility] [address] [facility] [address] Glucose Level January 29, 2021 9:57pm 92 mg/dL 70-100 MAIN LAB [facility] [address] [facility] [address] Glucose Level March 16, 2021 5:34pm 90 mg/dL 70-100 MAIN LAB [facility] [address] [facility] [address] Glucose Level March 18, 2021 7:56pm 84 mg/dL 70-100 MAIN LAB [address] [address] Glucose Level March 20, 2021 5:04pm 91 mg/dL 70-100 MAIN LAB [address] [address] Calcium Level October 14, 2020 11:38pm 9.3 mg/dL 8.4-10.2 MAIN LAB [address] [facility] [address] Calcium Level January 02, 2021 4:44pm 9.3 mg/dL 8.4-10.2 MAIN LAB [facility] [address] [facility] [address] Calcium Level January 07, 2021 5:35pm 9.6 mg/dL 8.4-10.2 MAIN LAB [facility] [address] [facility] [address] Calcium Level January 29, 2021 9:57pm 9.8 mg/dL 8.4-10.2 MAIN LAB [facility] [address] [facility] [address] Calcium Level March 16, 2021 5:34pm 9.5 mg/dL 8.4-10.2 MAIN LAB [address] [address] Calcium Level March 18, 2021 7:56pm 9.3 mg/dL 8.4-10.2 MAIN LAB [address] [address] Calcium Level March 20, 2021 5:04pm 9.4 mg/dL 8.4-10.2 MAIN LAB [address] [address] Calcium Adjusted for Albumin October 14, 2020 11:38pm 9.2 mg/dL 8.4-10.2 MAIN LAB [address] [place] [address] Calcium Adjusted for Albumin January 02, 2021 4:44pm 8.8 mg/dL 8.4-10.2 MAIN LAB [address] [address] Calcium Adjusted for Albumin January 07, 2021 5:35pm 9.3 mg/dL 8.4-10.2 MAIN LAB [address] [address] Calcium Adjusted for Albumin March 16, 2021 5:34pm 9.4 mg/dL 8.4-10.2 MAIN LAB [address] [address] Calcium Adjusted for Albumin March 18, 2021 7:56pm 9.1 mg/dL 8.4-10.2 MAIN LAB [address] [address] Iron Level October 14, 2020 11:38pm 36 ug/dL 37-170 MAIN LAB [address] [place] [address] Total Bilirubin October 14, 2020 11:38pm 0.3 mg/dL 0.2-1.3 MAIN LAB [address] [place] [address] Total Bilirubin January 02, 2021 4:44pm 0.4 mg/dL 0.2-1.3 MAIN LAB [address] [address] Total Bilirubin January 07, 2021 5:35pm 0.4 mg/dL 0.2-1.3 MAIN LAB [address] [place] [address] Total Bilirubin March 16, 2021 5:34pm 0.4 mg/dL 0.2-1.3 MAIN LAB [address] [address] Total Bilirubin March 18, 2021 7:56pm 0.4 mg/dL 0.2-1.3 MAIN LAB [address] [address] Aspartate Amino Transf (AST/SGOT) October 14, 2020 11:38pm 55 U/L 14-36 MAIN LAB [address] [place] [address] Aspartate Amino Transf (AST/SGOT) January 02, 2021 4:44pm 39 U/L 14-36 MAIN LAB [address] [address] Aspartate Amino Transf (AST/SGOT) January 07, 2021 5:35pm 38 U/L 14-36 MAIN LAB [address] [address] Aspartate Amino Transf (AST/SGOT) March 16, 2021 5:34pm 36 U/L 14-36 MAIN LAB [address] [address] Aspartate Amino Transf (AST/SGOT) March 18, 2021 7:56pm 37 U/L 14-36 MAIN LAB [address] [address] Alanine Aminotransferase (ALT/SGPT) October 14, 2020 11:38pm 41 U/L <35 As of 09/13/19, the Reference Range for ALT/SGPT for adult patients has been updated. The Reference Range for ALT/SGPT has not been established for patients <18 years of age. MAIN LAB [address] [place] [address] Alanine Aminotransferase (ALT/SGPT) January 02, 2021 4:44pm 21 U/L <35 As of 09/13/19, the Reference Range for ALT/SGPT for adult patients has been updated. The Reference Range for ALT/SGPT has not been established for patients <18 years of age. MAIN LAB [address] [address] Alanine Aminotransferase (ALT/SGPT) January 07, 2021 5:35pm 23 U/L <35 As of 09/13/19, the Reference Range for ALT/SGPT for adult patients has been updated. The Reference Range for ALT/SGPT has not been established for patients <18 years of age. MAIN LAB [address] [address] Alanine Aminotransferase (ALT/SGPT) March 16, 2021 5:34pm 17 U/L <35 As of 09/13/19, the Reference Range for ALT/SGPT for adult patients has been updated. The Reference Range for ALT/SGPT has not been established for patients <18 years of age. MAIN LAB [address] [address] Alanine Aminotransferase (ALT/SGPT) March 18, 2021 7:56pm 19 U/L <35 As of 09/13/19, the Reference Range for ALT/SGPT for adult patients has been updated. The Reference Range for ALT/SGPT has not been established for patients <18 years of age. MAIN LAB [address] [address] Lactic Acid Level March 18, 2021 7:56pm 1.0 mmol/L 0.7-2.1 MAIN LAB [address] [address] Total Protein October 14, 2020 11:38pm 7.4 g/dL 6.3-8.2 MAIN LAB [address] [place] [address] Total Protein January 02, 2021 4:44pm 7.9 g/dL 6.3-8.2 MAIN LAB [address] [address] Total Protein January 07, 2021 5:35pm 7.7 g/dL 6.3-8.2 MAIN LAB [address] [address] Total Protein March 16, 2021 5:34pm 7.2 g/dL 6.3-8.2 MAIN LAB [address] [address] Total Protein March 18, 2021 7:56pm 7.6 g/dL 6.3-8.2 MAIN LAB [address] [address] Albumin October 14, 2020 11:38pm 4.4 g/dL 3.5-5.0 MAIN LAB [address] [place] [address] Albumin January 02, 2021 4:44pm 4.9 g/dL 3.5-5.0 MAIN LAB [address] [address] Albumin January 07, 2021 5:35pm 4.7 g/dL 3.5-5.0 MAIN LAB [address] [address] Albumin March 16, 2021 5:34pm 4.4 g/dL 3.5-5.0 MAIN LAB [address] [address] Albumin March 18, 2021 7:56pm 4.6 g/dL 3.5-5.0 MAIN LAB [address] [address] Alkaline Phosphatase October 14, 2020 11:38pm 55 U/L 38-126 MAIN LAB [address] [place] [address] Alkaline Phosphatase January 02, 2021 4:44pm 58 U/L 38-126 MAIN LAB [address] [address] Alkaline Phosphatase January 07, 2021 5:35pm 58 U/L 38-126 MAIN LAB [address] [address] Alkaline Phosphatase March 16, 2021 5:34pm 45 U/L 38-126 MAIN LAB [address] [address] Alkaline Phosphatase March 18, 2021 7:56pm 47 U/L 38-126 MAIN LAB [address] [address] Lipase October 14, 2020 11:38pm 43 U/L 23-300 MAIN LAB [address] [place] [address] Ferritin October 14, 2020 11:38pm 4.43 ng/mL 10-291 The results of this assay can be falsely decreased in patients who consume Biotin. MAIN LAB [address] [place] [address] Microbiology Results Procedure Source Result Collection Date/Time Result Date/Time Result Comment Performing Site Urine Culture Ur,Clean Catch January 02, 2021 6:40pm January 04, 2021 8:36am MAIN LAB [address] [address] Urine Culture Ur,Clean Catch March 16, 2021 7:39pm March 18, 2021 10:45am MAIN LAB [address] [address] Gram Stain Umbilicus March 16, 2021 10:27am March 17, 2021 8:17am MAIN LAB [address] [address] Routine Culture Umbilicus Staphylococcus Aureus-Mrsa March 16, 2021 10:27am March 20, 2021 8:34am MAIN LAB [address] [address] Diagnostic Imaging Reports Report Dictated Date/Time Dictated By Status Radiology Report January 02, 2021 5:42pm Megan Balderas MD completed [facility] CAT SCAN REPORT PATIENT NAME: EDUARDO PAYAN [id number] DATE OF : 2000 ATTENDING/ER PHYSICIAN: ER/ATTENDING PHYSICIAN: Elier Luther MD PRIMARY CARE PHYS: No Pcp ADMITTING PHYSICIAN: CONSULTING PHYSICIAN: PROCEDURE DATE: 01/02/21 REPORT STATUS: Signed DICTATING PHYSICIAN: Megan Morales MD REASON FOR EXAM: abd pain PROCEDURE INFORMATION: Exam: CT Abdomen And Pelvis With Contrast Exam date and time: 01/02/2021 5:42 PM Age: 20 years old Clinical indication: Localized; Lower; Prior surgery; Surgery date: 6+ months; Surgery type: Appy; Patient HX: Triage: PT presents with complaint of rectal bleeding today, initially with low abdominal pain then noted bleeding. Has been incontinent of stool and urine. Pain is low abdomen and radiates bilaterally to flank area. ; Additional info: Abd pain TECHNIQUE: Imaging protocol: Computed tomography of the abdomen and pelvis with contrast. Radiation optimization: All CT scans at this facility use at least one of these dose optimization techniques: automated exposure control; mA and/or kV adjustment per patient size (includes targeted exams where dose is matched to clinical indication); or iterative reconstruction. Contrast material: OMNIPAQUE 350; Contrast volume: 120 ml; Contrast route: INTRAVENOUS (IV); COMPARISON: No relevant prior studies available. FINDINGS: Lungs: The lung bases are clear. There are no pleural effusions. Liver: The liver is homogeneous in appearance without focal hepatic lesions. Gallbladder and bile ducts: The gallbladder is not distended. There is no biliary ductal dilatation. Pancreas: The pancreas is within normal limits. Spleen: The spleen is normal in size. Adrenal glands: The adrenal glands are normal in appearance. Kidneys and ureters: The kidneys are symmetric in size. There is no evidence of hydronephrosis, renal stone or mass. The ureters are normal in caliber. No intraluminal filling defects are identified. Stomach and bowel: The stomach is not distended. No pathologically dilated small bowel loops are identified. There is no evidence of colonic wall thickening or pericolonic inflammation. Appendix: The appendix is surgically absent. Intraperitoneal space: There is no free air or free fluid in the abdomen or pelvis. Vasculature: The abdominal aorta is normal in caliber. The celiac axis, SMA and DUC are patent. Lymph nodes: No pathologically enlarged lymph nodes are identified in the abdomen or pelvis. Urinary bladder: The urinary bladder appears normal. Reproductive: The uterus is normal in appearance. The ovaries appear normal bilaterally. There is a tampon in the vagina. Bones/joints: There is normal alignment throughout the visualized portion of the spine. No acute fractures or aggressive bone lesions are identified. Soft tissues: Within normal limits. IMPRESSION: No acute intra-abdominal pathology is identified. Electronically Signed By : Megan Morales MD dd: [id number] Report Dictated Date/Time Dictated By Status Radiology Report March 16, 2021 8:09pm Tiburcio Heaton MD completed [facility] CAT SCAN REPORT PATIENT NAME: EDUARDO PAYAN [id number] DATE OF : 2000 ATTENDING/ER PHYSICIAN: ER/ATTENDING PHYSICIAN: FLORESITA Sánchez PRIMARY CARE PHYS: No Pcp ADMITTING PHYSICIAN: CONSULTING PHYSICIAN: PROCEDURE DATE: 03/16/21 REPORT STATUS: Signed DICTATING PHYSICIAN: Tiburcio Heaton MD REASON FOR EXAM: Abd pain, vomiting, bloody stools, hx laparotomy PROCEDURE INFORMATION: Exam: CT Abdomen And Pelvis With Contrast Exam date and time: 03/16/2021 7:30 PM Age: 21 years old Clinical indication: Abdominal pain; Generalized; Prior surgery; Surgery date: <1 month; Surgery type: Laprotomy. Appendectomy (6+ months); Patient HX: Arrives with post op concerns. States she had a laporoscopy compelted on 03/05/21, at [facility] in [place]. States she is having sharp cramping stabbing pains in her abdomen states she has had dark stool and vomiting. Denies fever. Has contacted her surgeons practice. Has been taking tylenol and oxycodone only if needed. ; Additional info: Abd pain, vomiting, bloody stools, HX laparotomy TECHNIQUE: Imaging protocol: Computed tomography of the abdomen and pelvis with contrast. Radiation optimization: All CT scans at this facility use at least one of these dose optimization techniques: automated exposure control; mA and/or kV adjustment per patient size (includes targeted exams where dose is matched to clinical indication); or iterative reconstruction. Contrast material: OMNIPAQUE 350; Contrast volume: 120 ml; Contrast route: INTRAVENOUS (IV); COMPARISON: CT Abd Pel w/ Contrast 01/02/2021 5:42 PM FINDINGS: Lungs: Lung bases are clear. Pleural spaces: No pleural effusion. Heart: Normal heart size. No pericardial effusion. Liver: Mild fatty liver change. No focal lesions. Gallbladder and bile ducts: Normal. No calcified stones. No ductal dilation. Pancreas: The pancreas is normal in contour and attenuation. Spleen: The spleen is normal in size, contour and attenuation. Adrenal glands: The adrenal glands are normal in size and contour bilaterally. Kidneys and ureters: The kidneys bilaterally are unremarkable. Normal enhancement. No hydronephrosis. No calculi. Stomach and bowel: Gastric morphology is unremarkable. No edema. No gastric outlet obstruction.Small bowel loops are normal in course and caliber. There is no mucosal edema or bowel wall thickening. No obstructive features.The colon contains formed fecal material. There is no bowel wall thickening. No inflammatory features. No obstruction. Scattered diverticulosis without acute diverticulitis. Appendix: No evidence of appendicitis. Surgical clips at the cecum could reflect previous appendectomy Intraperitoneal space: Nonspecific minor free fluid in the pelvic cul-de-sac and right Manda adnexal region. Vasculature: Unremarkable. No abdominal aortic aneurysm. Lymph nodes: Unremarkable. No enlarged lymph nodes. Urinary bladder: Unremarkable as visualized. Reproductive: Uterus is unremarkable. There is a prominent left adnexal cyst measuring 5.4 by 4.1 cm. Bones/joints: Unremarkable. No acute fracture. Soft tissues: Abdominal wall soft tissues are unremarkable. No soft tissue air. No fluid collection or abscess evident. IMPRESSION: 1. No acute bowel inflammation or obstructive changes. 2. Left ovarian 5.4 x 4.1 cm cyst which is new since 01/02/2021. 3. Nonspecific minor free fluid in the pelvic cul-de-sac and right Manda adnexal region. 4. Mild fatty liver change. Electronically Signed By : Tiburcio Heaton MD dd: 03/[id number] Vital Signs Vital Reading Result Reference Range Collection Date/Time Weight 90.71 kg October 14, 2020 10:53pm Body Temperature 97.9 [degF] 97.6-99.6 October 14, 021 10:53pm Heart Rate 80 /min 60-100 October 14, 2020 10:53pm Respiratory rate 16 /min -October 14 021 10:53pm Oxygen saturation by Pulse oximetry 96 % 95-100 October 14, 2020 10:53 pm BP Systolic 119 mm[Hg] 100-140 October 14, 2020 10:53pm BP Diastolic 61 mm[Hg] 50-85 October 14, 2020 10:53pm Weight 90.71 kg December 29 4:32pm Body Temperature 97.6 [degF] 97.6-99.6 December 4:32pm Oxygen saturation by Pulse oximetry 98 % 95-100 December 29, 2020 4: 32pm BP Systolic 138 mm[Hg] 100-140 December 29 4:32pm BP Diastolic 97 mm[Hg] 50-85 December 29 4:32pm Weight 90.71 kg January 02 4:22pm Body Temperature 97.4 [degF] 97.6-99.6 December 4:22pm Heart Rate 77 /min 60-100 January 02 7:20pm Respiratory rate 18 /min -December 7:20pm Oxygen saturation by Pulse oximetry 96 % 95-100 January 02, 2021 4: 22pm BP Systolic 107 mm[Hg] 100-140 January 02 7:20pm BP Diastolic 62 mm[Hg] 50-85 January 02 7:20pm Weight 95.25 kg January 07 4:59pm Body Temperature 98 [degF] 97.6-99.6 December 4:59pm Heart Rate 94 /min 60-100 January 07 4:59pm Respiratory rate 20 /min -December 4:59pm Oxygen saturation by Pulse oximetry 100 % 95-100 January 07, 2021 4: 59pm BP Systolic 108 mm[Hg] 100-140 January 07 4:59pm BP Diastolic 74 mm[Hg] 50-85 January 07 4:59pm Weight 90.71 kg January 21, 2021 3:08pm Body Temperature 98.5 [degF] 97.6-99.6 January 212020 3:08pm Heart Rate 82 /min 60-100 January 21, 2021 3:08pm Respiratory rate 18 /min -January 212020 3:08pm Oxygen saturation by Pulse oximetry 97 % 95-100 January 21, 2021 3:08pm BP Systolic 118 mm[Hg] 100-140 January 21, 2021 3:08pm BP Diastolic 84 mm[Hg] 50-85 January 21, 2021 3:08pm Weight 95.25 kg January 29, 2021 8:58pm Body Temperature 98 [degF] 97.6-99.6 January 132020 8:58pm Heart Rate 67 /min 60-100 January 29, 2021 11:00pm Respiratory rate 17 /min -January 132020 11:00pm Oxygen saturation by Pulse oximetry 97 % 95-100 January 29, 2021 11:00pm BP Systolic 93 mm[Hg] 100-140 January 29, 2021 11:00pm BP Diastolic 64 mm[Hg] 50-85 January 29, 2021 11:00pm Weight 92.98 kg March 16, 021 3:55pm Body Temperature 99.0 [degF] 97.6-99.6 March 3:55pm Heart Rate 78 /min 60-100 March 16, 2 021 9:44pm Respiratory rate 18 /min -March 9:44pm Oxygen saturation by Pulse oximetry 98 % 95-100 March 16, 2021 9 :44pm BP Systolic 116 mm[Hg] 100-140 March 16, 2 021 9:44pm BP Diastolic 68 mm[Hg] 50-85 March 16, 2 021 9:44pm Weight 95.25 kg March 18, 2 021 6:24pm Body Temperature 98.9 [degF] 97.6-99.6 March 6:24pm Heart Rate 82 /min 60-100 March 18, 2 021 8:33pm Respiratory rate 16 /min 12-March 8:33pm Oxygen saturation by Pulse oximetry 99 % 95-100 March 18, 2021 8 :33pm BP Systolic 100 mm[Hg] 100-140 March 18, 2 021 8:33pm BP Diastolic 58 mm[Hg] 50-85 March 18, 2 021 8:33pm Height 64 [in_i] March 20, 2 021 2:44pm Weight 95.25 kg March 20, 2 021 2:44pm Body Temperature 97.7 [degF] 97.6-99.6 March 2:44pm Heart Rate 67 /min 60-100 March 20, 2 021 5:00pm Respiratory rate 17 /min 12-March, 2020 5:00pm Oxygen saturation by Pulse oximetry 100 % 95-100 March 20, 2021 5 :00pm BP Systolic 124 mm[Hg] 100-140 March 20, 2 021 5:00pm BP Diastolic 57 mm[Hg] 50-85 March 20, 2 021 5:00pm Advance Directives Advance Directive Response Recorded Date/ Time Does patient have an Advanced Directive? No October 14, 2020 11:22pm Do we have a copy on file here at [facility]? No October 14, 2020 11:22pm Pt has a Living Will? No October 14, 2020 11:22pm Do we have a copy on file here at [facility]? No October 14, 2020 11:22pm Pt has a Power of Scholastic Aptitude Test Grader? No October 14, 2020 11:22pm Do we have a copy on file here at [facility]? No October 14, 2020 11:22pm Insurance Providers Guarantor EDUARDO PAYAN Address [address] [place] [address] Contact Info. Home Phone: Payer Policy Id Coverage Id Subscriber's Name Subscriber Id Effective Date Expiration Date [facility] [id number] EDUARDO PAYAN [id number] 000 SELF PAY Self N/A Encounters Encounter Location(s) Arrival/Admit Date Discharge/Depart Date Provider(s) Departed Emergency [facility]-Emergency Department October 14, 2020 10:48pm October 15, 2020 12:54am null Departed Emergency [facility] December 29, 2020 4:23pm December 29, 2020 7:13pm null Departed Emergency [facility]Emergency Department January 02, 2021 4:12pm January 02, 2021 7:22pm null Departed Emergency [facility]Emergency Department January 07, 2021 4:48pm January 07, 2021 6:55pm null Departed Emergency [facility] January 21, 2021 2:24pm January 21, 2021 4:51pm null Departed Emergency [facility] January 29, 2021 8:55pm January 29, 2021 11:08pm null Departed Emergency [facility] March 16, 2021 3:28pm March 16, 2021 10:43pm null Depart Emergency [facility] March 18, 2021 6:11pm March 18, 2021 9:19pm null Departed Emergency [facility] March 20, 2021 2:33pm March 20, 2021 6:25pm null Functional Status Observation Response Date Recorded Living Situation Home March 20 6:25pm Mental Status Observation Response Date Recorded Comprehension Ability Understands Concepts Septe mber 2020 9:35pm Mood/Behavior Anxious January 29, 2021 9:35pm Comprehension Ability Understands Concepts Augus t 2020 5:40pm Mood/Behavior Anxious January 07 5:40pm Comprehension Ability Understands Concepts Augus t 2020 4:30pm Mood/Behavior Appropriate January 02 4:30pm Comprehension Ability Understands Concepts Novem 2020 8:30pm Speech Appropriate March 18 8:30pm Clear March 18 8:30pm Mood/Behavior Appropriate March 18 8:30pm Comprehension Ability Understands Concepts October 14, 2020 11:00pm Mood/Behavior Appropriate October 14, 2020 1 1:00pm Plan of Treatment Future Tests Future scheduled test information is unavailable Pending Tests Pending diagnostic test information is unavailable Future Visits Future appointment information is unavailable Referrals to Other Providers Reason for Referral Referral Start Date Provider Provider Contact Information Provider Address Out [facility] Emely Last Bakari holloway MD Work Phone: [facility] [address] [place] [phone] Chavez and will see for US [facility]ne[facility] Work Phone: [address] [place] [phone] No Pcp Mahad Chavez MD Work Phone: [facility] [address] [place] [phone] No Pcp No Pcp No Pcp [facility] Work Phone: [address] [place] [phone] No Pcp No Pcp No Pcp Future Procedures Future procedure information is unavailable Future Medications Future medication information is unavailable Patient Instructions Anemia Caused by Low Iron, A dult (DC) Gastritis (DC) Dental Pain (DC) Severe Abdominal Pain, Adult (DC) Nausea and Vomiting, Adult ( DC) Ovarian Cyst (DC) Ovarian Cyst (DC) Diarrhea and Travelers' Diar rodriguez, Adult (DC) Pelvic Pain (DC) Nausea and Vomiting After Surgery Hospital Discharge Instructions Additional Instructions Your red cell count is stable, and your electrolytes [...]
--- OUTSIDE RECORDS SUMMARY | 2022-11-20 17:44 | XMS_ITS | Continuity of Care Document ---
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 Friend or Other Unknown KIRA Garcia Emergency Provider [facility] [place] [address] MD Konstantin Villaseñor Emergency Provider [facility] [place] [address] Elier Luther Emergency Provider [facility] [place] [address] MARIELLA Thomson Emergency Provider [facility] [place] [address] MD Tae Zapata Emergency Provider [facility] [place] [address] MARIELLA Ledezma Emergency Provider [facility] [place] [place] [address] MARIELLA Gomez Emergency Provider [facility] [place] [address] MD Yolanda Dial Emergency Provider [facility] [place] [address] MD Praveen Harden Emergency Provider [facility] [place] [address] MD Pierce Cowan Emergency Provider [facility] [place] [address] Care Team Providers Care System Sales Consultant Name Role Phone PCP, of Choice Primary Care Provider Unavailabl e Out of Town, Provider Primary Care Provider Unav ailable Chief Complaint and Reason for Visit Chief Complaint LEFT FLANK PAIN ORAL INFECTION RECTAL BLEEDING abdominal pain OVARIAN CYST POST OP CONCERN ABDOMINAL PAIN HEAVY VAG BLEEDING FALL/ BACK COMPLAINT PELVIC PAIN RIGHT SIDE PAIN 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 Allergies, Adverse Reactions, Alerts Allergen Type Severity Reaction Last Updated Verified Status droperidol Allergy anaphylactic shock August 10, 2021 2:49pm Yes Active haloperidol Allergy rash August 10 022 2:49pm Yes Active ibuprofen Allergy August 10 2:49pm Yes Active ketorolac Allergy anaphylaxis August 10 022 2:49pm Yes Active latex Allergy rash August 10 2:49pm Yes Active Penicillins Allergy hives August 10 022 2:49pm Yes Active prochlorperazine Allergy hives August 102021 2:49pm Yes Active Social History Smoking Status Status Start Date End Date Date of Observa tion Never smoked tobacco (finding) September 23, 2021 4:38pm Observation Status Observation Response Date of Response Alcohol Use Yes September 23, 2021 4 :38pm alcohol intake frequency a few times a month September 23, 2021 4:38pm Alcohol type hard liquor September 23, 2021 4 :38pm Substance/Street Drug Use Yes September 232021 4:38pm Substance Use Treatment No September 4:38pm substance use type marijuana September 23 4:38pm Smoking Status Never smoker September 23, 2021 4 :38pm Additional Data Assigned Sex Female Problems Active Problems Medical Problem Onset Date Status History of endometriosis Active Abdominal pain, recurrent Active Inactive/Resolved Problems Medical Problem Onset Date Status Abdominal pain, RLQ Resolved Ovarian cyst Resolved Pelvic pain Resolved Pelvic pain Resolved Functional abdominal pain syndrome Resolved Diarrhea Resolved Diarrhea Resolved Gastritis Resolved MRSA (methicillin resistant Staphylococcus aureu s) infection Resolved Post-operative pain Resolved Pain, dental Resolved Pain, dental Resolved Vaginal bleeding Resolved Iron deficiency anemia Resolved Hx of endometriosis Resolved Hx of endometriosis Resolved Nausea & vomiting Resolved Abdominal pain Resolved Abdominal pain Resolved Abdominal pain Resolved Abdominal pain Resolved Endometriosis Resolved Endometriosis Resolved Constipation Resolved Vomiting Resolved Hemorrhagic cyst of left ovary R esolved Medications Medication Status Dose Units Route Directions Qty Days St art Date End Date Instructions Sertraline Active 100 MG PO DAILY October 14, 2020 11:02pm Docusate Sodium Discontin ued 50 MG PO TWICE A DAY October 14, 2020 11:02pm August 07, 2021 12:12p m Trazodone Active 100 MG PO BEDTIME October 14, 2020 11:02pm Hydroxyzine Hcl Active 100 MG PO BEDTIME October 14, 2020 11:02pm Ferrous Sulfate Discontin ued 325 MG PO DAILY October 15, 2020 2:57pm Counts Include [facility] er 2020 5:42pm Hydrocodone- Acetaminophe n Discontin ued TABLET December 29, 2020 4:35pm January 07, 2021 5:04pm Cefdinir Discontin ued 300 MG PO TWICE A DAY [facility] 2020 4:03pm Septem rinku 2020 9:07pm Tramadol Discontin ued 50 MG PO Q8H 10 [facility] Montelukast Active 10 MG PO DAILY 2021 3:37pm Omeprazole Discontin ued 20 MG PO DAILY 2021 3:37pm August 07, 2021 12:12p m Cephalexin Discontin ued 500 MG PO FOUR TIMES DAILY 2021 4:42pm August 07, 2021 12:12p m Tramadol (Ultram) 50 mg Tablet Discontin ued 50 MG PO Q6H 2021 4:44pm August 07, 2021 12:12p m Omeprazole Active MG September 23, 2021 3:23pm Gabapentin Active 200 MG PO DAILY January 02, 2021 5:12pm Hydrocodone- Acetaminophe n Discontin ued 1 TAB PO Q6H January 02, 2021 6:26pm January 07, 2021 5:04pm Ondansetron Discontin ued 4 MG PO Q6H January 02, 2021 6:26pm August 07, 2021 12:12p m Famotidine-C a Carb-Mag Hydrox (Pepcid Complete) 10-800-165 mg tablet,chewa ble Discontin ued 1 TAB PO DAILY January 08, 2021 1:50am Septem rinku 2020 9:07pm Dicyclomine Discontin ued 10 MG PO .q6 prn 30 January 08, 2021 1:51am Septem rinku 2020 3:08pm Oxycodone Discontin ued MG CAPSULE r 2020 3:59pm Februa ry 2021 3:37pm Fluticasone Propion-Salm eterol (Advair Hfa) 115-21 mcg/actuatio n HFA aerosol inhaler Active INH r 2020 3:59pm Ondansetron Hcl (Zofran) 4 mg tablet Discontin ued 4 MG PO Q8H 12 4 be r 2020 5:45pm Novemb er 2020 1:01am Sulfamethoxa zole-Trimeth oprim (Bactrim Ds) 800-160 mg tablet Discontin ued 1 TAB PO TWICE A DAY 14 r 2020 7:52pm Novemb er 2020 1:25pm Tizanidine Active 4 MG PO As Directed M arch 2021 12:12pm Ondansetron Active 4 - 8 MG PO Q8H 8 August 07, 2021 4:31pm Procedures Procedure Date Performed Status ED US Abdominal Limited August 10, 2021 4:34pm completed CT Abd Pel w/ Contrast August 07, 2021 12:50pm completed ED US Abdominal Limited March 27, 2021 2:[address] Abd Pel w/ Contrast March 16, 2021 4:09pm completed Gram Stain March 16, 2021 completed Routine Culture March 16, 2021 completed Urine Culture March 16, [address] Abd Pel w/ Contrast January 02, 2021 4:51pm completed Urine Culture January 02, 2021 completed US Transvaginal Non-OB September 23, 2021 4:51pm act wili ED US Abdominal Limited September 23, 2021 6:07pm ac tive Blood Culture March 18, 2021 completed Relevant Diagnostic Tests and/or Laboratory Data Laboratory Results Test Date/Time Result Interpretation Reference Range Result Comment Performing Site White Blood Count October 14, 2020 11:38pm 7.41 1000/mm3 4.8-10.8 [facility] [address] [place] [address] White Blood Count January 02, 2021 4:44pm 6.81 1000/mm3 4.8-10.8 [facility] [address] [address] White Blood Count January 07, 2021 5:35pm 5.33 1000/mm3 4.8-10.8 [facility] [address] [address] White Blood Count January 29, 2021 9:57pm 5.85 1000/mm3 4.8-10.8 [facility] [address] [address] White Blood Count March 16, 2021 5:34pm 6.11 1000/mm3 4.8-10.8 MA[facility] [address] [address] White Blood Count March 18, 2021 7:56pm 5.26 1000/mm3 4.8-10.8 [facility] [address] [address] White Blood Count March 20, 2021 4:37pm 4.94 1000/mm3 4.8-10.8 MA[facility] [address] [address] White Blood Count August 07, 2021 1:30pm 4.95 1000/mm3 4.8-10.8 [facility] [address] [address] White Blood Count August 10, 2021 3:14pm 4.83 1000/mm3 4.8-10.8 [facility] [address] [address] Red Blood Count October 14, 2020 11:38pm 4.44 M/mm3 4.20-5.40 [facility] [address] [place] [address] Red Blood Count January 02, 2021 4:44pm 4.67 M/mm3 4.20-5.40 MA[facility] [address] [address] Red Blood Count January 07, 2021 5:35pm 4.85 M/mm3 4.20-5.40 MA[facility] [address] [address] Red Blood Count January 29, 2021 9:57pm 4.53 M/mm3 4.20-5.40 MA[facility] [address] [address] Red Blood Count March 16, 2021 5:34pm 4.26 M/mm3 4.20-5.40 MA[facility] [address] [address] Red Blood Count March 18, 2021 7:56pm 4.17 M/mm3 4.20-5.40 MA[facility] [address] [address] Red Blood Count March 20, 2021 4:37pm 4.14 M/mm3 4.20-5.40 [facility] [address] [address] Red Blood Count August 07, 2021 1:30pm 4.43 M/mm3 4.20-5.40 [facility] [address] [address] Red Blood Count August 10, 2021 3:14pm 3.83 M/mm3 4.20-5.40 [facility] [address] [address] Hemoglobin October 14, 2020 11:38pm 9.2 g/dL 12.0-16.0 [facility] [address] [place] [address]607 Hemoglobin January 02, 2021 4:44pm 10.4 g/dL 12.0-16.0 MA[facility] [address] [address] Hemoglobin January 07, 2021 5:35pm 10.8 g/dL 12.0-16.0 [facility] [address] [address] Hemoglobin January 29, 2021 9:57pm 10.4 g/dL 12.0-16.0 [facility] [address] [address] Hemoglobin March 16, 2021 5:34pm 9.9 g/dL 12.0-16.0 MA[facility] [address] [address] Hemoglobin March 18, 2021 7:56pm 9.9 g/dL 12.0-16.0 MA[facility] [address] [address] Hemoglobin March 20, 2021 4:37pm 9.8 g/dL 12.0-16.0 MAIN LAB [facility] [address] [facility] [address] Hemoglobin August 07, 2021 1:30pm 11.4 g/dL 12.0-16.0 MAIN LAB [facility] [address] [facility] [address] Hemoglobin August 10, 2021 3:14pm 9.9 g/dL 12.0-16.0 MA[facility] [address] [address] Hematocrit October 14, 2020 11:38pm 30.6 % 37-47 [facility] [address] [place] [address] Hematocrit January 02, 2021 4:44pm 35.2 % 37-47 MA[facility] [address] [address] Hematocrit January 07, 2021 5:35pm 36.3 % 37-47 MA[facility] [address] [address] Hematocrit January 29, 2021 9:57pm 33.7 % 37-47 MA[facility] [address] [address] Hematocrit March 16, 2021 5:34pm 33.2 % 37-47 MA[facility] [address] [address] Hematocrit March 18, 2021 7:56pm 32.9 % 37-47 MA[facility] [address] [address] Hematocrit March 20, 2021 4:37pm 32.6 % 37-47 MA[facility] [address] [address] Hematocrit August 07, 2021 1:30pm 36.4 % 37-47 MA[facility] [address] [address] Hematocrit August 10, 2021 3:14pm 31.6 % 37-47 MA[facility] [address] [address] Mean Corpuscular Volume October 14, 2020 11:38pm 68.9 fL 81.0-99.0 [facility] [address] [place] [address] Mean Corpuscular Volume January 02, 2021 4:44pm 75.4 fL 81.0-99.0 MAIN LAB [facility] [address] [facility] [address] Mean Corpuscular Volume January 07, 2021 5:35pm 74.8 fL 81.0-99.0 MAIN LAB [facility] [address] [facility] [address] Mean Corpuscular Volume January 29, 2021 9:57pm 74.4 fL 81.0-99.0 MAIN LAB [facility] [address] [facility] [address] Mean Corpuscular Volume March 16, 2021 5:34pm 77.9 fL 81.0-99.0 MA[facility] [address] [address] Mean Corpuscular Volume March 18, 2021 7:56pm 78.9 fL 81.0-99.0 MAIN [facility] [address] [address] Mean Corpuscular Volume March 20, 2021 4:37pm 78.7 fL 81.0-99.0 MA[facility] [address] [address] Mean Corpuscular Volume August 07, 2021 1:30pm 82.2 fL 81.0-99.0 MA[facility] [address] [address] Mean Corpuscular Volume August 10, 2021 3:14pm 82.5 fL 81.0-99.0 MA[facility] [address] [address] Mean Corpuscular Hemoglobin October 14, 2020 11:38pm 20.7 pg 27-31 [facility] [address] [place] [address] Mean Corpuscular Hemoglobin January 02, 2021 4:44pm 22.3 pg 27-31 MA[facility] [address] [address] Mean Corpuscular Hemoglobin January 07, 2021 5:35pm 22.3 pg 27-31 MA[facility] [address] [address] Mean Corpuscular Hemoglobin January 29, 2021 9:57pm 23.0 pg 27-31 MA[facility] [address] [address] Mean Corpuscular Hemoglobin March 16, 2021 5:34pm 23.2 pg 27-31 MA[facility] [address] [address] Mean Corpuscular Hemoglobin March 18, 2021 7:56pm 23.7 pg 27-31 MA[facility] [address] [address] Mean Corpuscular Hemoglobin March 20, 2021 4:37pm 23.7 pg 27-31 MA[facility] [address] [address] Mean Corpuscular Hemoglobin August 07, 2021 1:30pm 25.7 pg 27-31 MA[facility] [address] [address] Mean Corpuscular Hemoglobin August 10, 2021 3:14pm 25.8 pg 27-31 [facility] [address] [address] Mean Corpuscular Hemoglobin Concent October 14, 2020 11:38pm 30.1 g/dL 33-37 [facility] [address] [place] [address] Mean Corpuscular Hemoglobin Concent January 02, 2021 4:44pm 29.5 g/dL 33-37 MA[facility] [address] [address] Mean Corpuscular Hemoglobin Concent January 07, 2021 5:35pm 29.8 g/dL 33-37 MA[facility] [address] [address] Mean Corpuscular Hemoglobin Concent January 29, 2021 9:57pm 30.9 g/dL 33-37 MA[facility] [address] [address] Mean Corpuscular Hemoglobin Concent March 16, 2021 5:34pm 29.8 g/dL 33-37 MA[facility] [address] [address] Mean Corpuscular Hemoglobin Concent March 18, 2021 7:56pm 30.1 g/dL 33-37 MA[facility] [address] [address] Mean Corpuscular Hemoglobin Concent March 20, 2021 4:37pm 30.1 g/dL 33-37 MA[facility] [address] [address] Mean Corpuscular Hemoglobin Concent August 07, 2021 1:30pm 31.3 g/dL - MAIN LAB [address] [address] Mean Corpuscular Hemoglobin Concent August 10, 2021 3:14pm 31.3 g/dL 33- MAIN [facility] [address] [address] Red Cell Distribution Width October 14, 2020 11:38pm 16.8 % 11.5-14.5 [facility] [address] [place] [address] Red Cell Distribution Width January 02, 2021 4:44pm 19.4 % 11.5-14.5 MA[facility] [address] [address] Red Cell Distribution Width January 07, 2021 5:35pm 18.6 % 11.5-14.5 MA[facility] [address] [address] Red Cell Distribution Width January 29, 2021 9:57pm 17.6 % 11.5-14.5 MA[facility] [address] [address] Red Cell Distribution Width March 16, 2021 5:34pm 16.2 % 11.5-14.5 MA[facility] [address] [address] Red Cell Distribution Width March 18, 2021 7:56pm 16.4 % 11.5-14.5 MA[facility] [address] [address] Red Cell Distribution Width March 20, 2021 4:37pm 16.5 % 11.5-14.5 MA[facility] [address] [address] Red Cell Distribution Width August 07, 2021 1:30pm 14.0 % 11.5-14.5 MA[facility] [address] [address] Red Cell Distribution Width August 10, 2021 3:14pm 14.0 % 11.5-14.5 MA[facility] [address] [address] Platelet Count October 14, 2020 11:38pm 250 1000/mm3 140-440 [facility] [address] [facility] [address] Platelet Count January 02, 2021 4:44pm 216 1000/mm3 140-440 MAIN LAB [facility] [address] [facility] [address] Platelet Count January 07, 2021 5:35pm 240 1000/mm3 140-440 MA[facility] [address] [address] Platelet Count January 29, 2021 9:57pm 248 1000/mm3 140-440 MA[facility] [address] [address] Platelet Count March 16, 2021 5:34pm 220 1000/mm3 140-440 MA[facility] [address] [address] Platelet Count March 18, 2021 7:56pm 212 1000/mm3 140-440 MA[facility] [address] [address] Platelet Count March 20, 2021 4:37pm 177 1000/mm3 140-440 MA[facility] [address] [address] Platelet Count August 07, 2021 1:30pm 207 1000/mm3 140-440 MA[facility] [address] [address] Platelet Count August 10, 2021 3:14pm 189 1000/mm3 140-440 MA[facility] [address] [address] Mean Platelet Volume October 14, 2020 11:38pm 10.6 fL 7.4-10.4 MA[facility] [address] [place] [address] Mean Platelet Volume January 02, 2021 4:44pm 10.7 fL 7.4-10.4 MA[facility] [address] [address] Mean Platelet Volume January 07, 2021 5:35pm 11.3 fL 7.4-10.4 MAIN [facility] [address] [address]686 Mean Platelet Volume January 29, 2021 9:57pm 10.6 fL 7.4-10.4 MAIN [facility] [address] [address] Mean Platelet Volume March 16, 2021 5:34pm 10.6 fL 7.4-10.[address] [address] Mean Platelet Volume March 18, 2021 7:56pm 10.4 fL 7.4-10.[address] [address] Mean Platelet Volume March 20, 2021 4:37pm 9.9 fL 7.4-10.[address] [address] Mean Platelet Volume August 07, 2021 1:30pm 11.0 fL 7.4-10.[address] [address] Mean Platelet Volume August 10, 2021 3:14pm 10.7 fL 7.4-10.[address] [address] Neutrophils (%) (Auto) October 14, 2020 11:38pm 60.3 % 40.0-72.[address] [address] Neutrophils (%) (Auto) January 02, 2021 4:44pm 64.3 % 40.0-72.[address] [address] Neutrophils (%) (Auto) January 07, 2021 5:35pm 51.4 % 40.0-72.[address] [address] Neutrophils (%) (Auto) January 29, 2021 9:57pm 57.7 % 40.0-72.[address] [address] Neutrophils (%) (Auto) March 16, 2021 5:34pm 62.5 % 40.0-72.[address] [address] Neutrophils (%) (Auto) March 18, 2021 7:56pm 57.9 % 40.0-72.[address] [address] Neutrophils (%) (Auto) March 20, 2021 4:37pm 64.0 % 40.0-72.[address] [address] Neutrophils (%) (Auto) August 07, 2021 1:30pm 67.7 % 40.0-72.[address] [address] Neutrophils (%) (Auto) August 10, 2021 3:14pm 58.2 % 40.0-72.[address] [address] Lymphocytes (%) (Auto) October 14, 2020 11:38pm 29.0 % 17-[address] [address] Lymphocytes (%) (Auto) January 02, 2021 4:44pm 26.3 % 17-[address] [address] Lymphocytes (%) (Auto) January 07, 2021 5:35pm 37.7 % 17-[address] [address] Lymphocytes (%) (Auto) January 29, 2021 9:57pm 32.6 % 17-[address] [address] Lymphocytes (%) (Auto) March 16, 2021 5:34pm 26.7 % 17-[address] [address] Lymphocytes (%) (Auto) March 18, 2021 7:56pm 30.4 % 17-[address] [address] Lymphocytes (%) (Auto) March 20, 2021 4:37pm 26.1 % 17-[address] [address] Lymphocytes (%) (Auto) August 07, 2021 1:30pm 24.2 % 17-[address] [address] Lymphocytes (%) (Auto) August 10, 2021 3:14pm 32.3 % 17-[address] [address] Monocytes (%) (Auto) October 14, 2020 11:38pm 8.2 % 3-11 MAIN LAB [address] [place] [address] Monocytes (%) (Auto) January 02, 2021 4:44pm 6.2 % 3-11 MAIN LAB [address] [address] Monocytes (%) (Auto) January 07, 2021 5:35pm 6.0 % 3-11 [facility] [address] [address] Monocytes (%) (Auto) January 29, 2021 9:57pm 6.5 % 3-11 [facility] [address] [address] Monocytes (%) (Auto) March 16, 2021 5:34pm 6.9 % 3-11 [facility] [address] [address] Monocytes (%) (Auto) March 18, 2021 7:56pm 7.2 % 3-11 MA[facility] [address] [address] Monocytes (%) (Auto) March 20, 2021 4:37pm 5.9 % 3-11 [facility] [address] [address] Monocytes (%) (Auto) August 07, 2021 1:30pm 5.9 % 3-11 MA[facility] [address] [address] Monocytes (%) (Auto) August 10, 2021 3:14pm 6.6 % 3-11 MAIN LAB [address] [place] [address] Eosinophils (%) (Auto) October 14, 2020 11:38pm 1.1 % 0-3 MAIN LAB [address] [place] [address] Eosinophils (%) (Auto) January 02, 2021 4:44pm 2.2 % 0-3 [facility] [address] [address] Eosinophils (%) (Auto) January 07, 2021 5:35pm 3.2 % 0-3 [facility] [address] [address] Eosinophils (%) (Auto) January 29, 2021 9:57pm 1.7 % 0-3 [facility] [address] [address] Eosinophils (%) (Auto) March 16, 2021 5:34pm 2.6 % 0-[address] [address] Eosinophils (%) (Auto) March 18, 2021 7:56pm 3.2 % 0-[address] [address] Eosinophils (%) (Auto) March 20, 2021 4:37pm 2.8 % 0-[address] [address] Eosinophils (%) (Auto) August 07, 2021 1:30pm 1.2 % 0-[address] [address] Eosinophils (%) (Auto) August 10, 2021 3:14pm 2.1 % 0-[address] [address] Basophils (%) (Auto) October 14, 2020 11:38pm 1.3 % 0-1 [facility] [address] [place] [address] Basophils (%) (Auto) January 02, 2021 4:44pm 0.9 % 0-[address] [address] Basophils (%) (Auto) January 07, 2021 5:35pm 1.5 % 0-[address] [address] Basophils (%) (Auto) January 29, 2021 9:57pm 1.2 % 0-1 [facility] [address] [address] Basophils (%) (Auto) March 16, 2021 5:34pm 1.1 % 0-[address] [address] Basophils (%) (Auto) March 18, 2021 7:56pm 1.1 % 0-[address] [address] Basophils (%) (Auto) March 20, 2021 4:37pm 1.0 % 0-1 [facility] [address] [address] Basophils (%) (Auto) August 07, 2021 1:30pm 0.8 % 0-1 [facility] [address] [address] Basophils (%) (Auto) August 10, 2021 3:14pm 0.6 % 0-1 [facility] [address] [address] Immature Granulocyte % (Auto) October 14, 2020 11:38pm 0.1 % 0-1 [facility] [address] [place] [address] Immature Granulocyte % (Auto) January 02, 2021 4:44pm 0.1 % 0-1 [facility] [address] [address] Immature Granulocyte % (Auto) January 07, 2021 5:35pm 0.2 % 0-1 [facility] [address] [address] Immature Granulocyte % (Auto) January 29, 2021 9:57pm 0.3 % 0-1 [facility] [address] [address] Immature Granulocyte % (Auto) March 16, 2021 5:34pm 0.2 % 0-1 [facility] [address] [address] Immature Granulocyte % (Auto) March 18, 2021 7:56pm 0.2 % 0-1 [facility] [address] [address] Immature Granulocyte % (Auto) March 20, 2021 4:37pm 0.2 % 0-1 [facility] [address] [address] Immature Granulocyte % (Auto) August 07, 2021 1:30pm 0.2 % 0-1 [facility] [address] [address] Immature Granulocyte % (Auto) August 10, 2021 3:14pm 0.2 % 0-1 MA[facility] [address] [address] Neutrophils # (Auto) October 14, 2020 11:38pm 4.46 1000/mm3 1.4-6.5 [facility] [address] [place] [address] Neutrophils # (Auto) January 02, 2021 4:44pm 4.38 1000/mm3 1.4-6.5 [facility] [address] [address] Neutrophils # (Auto) January 07, 2021 5:35pm 2.74 1000/mm3 1.4-6.5 [facility] [address] [address] Neutrophils # (Auto) January 29, 2021 9:57pm 3.37 1000/mm3 1.4-6.5 [facility] [address] [address] Neutrophils # (Auto) March 16, 2021 5:34pm 3.82 1000/mm3 1.4-6.5 [facility] [address] [address] Neutrophils # (Auto) March 18, 2021 7:56pm 3.04 1000/mm3 1.4-6.5 [facility] [address] [address] Neutrophils # (Auto) March 20, 2021 4:37pm 3.16 1000/mm3 1.4-6.5 [facility] [address] [address] Neutrophils # (Auto) August 07, 2021 1:30pm 3.35 1000/mm3 1.4-6.5 [facility] [address] [address] Neutrophils # (Auto) August 10, 2021 3:14pm 2.81 1000/mm3 1.4-6.5 [facility] [address] [address] Lymphocytes # (Auto) October 14, 2020 11:38pm 2.15 1000/mm3 1.2-3.4 [facility] [address] [place] [address] Lymphocytes # (Auto) January 02, 2021 4:44pm 1.79 1000/mm3 1.2-3.4 [facility] [address] [address] Lymphocytes # (Auto) January 07, 2021 5:35pm 2.01 1000/mm3 1.2-3.4 [facility] [address] [address] Lymphocytes # (Auto) January 29, 2021 9:57pm 1.91 1000/mm3 1.2-3.4 [facility] [address] [address] Lymphocytes # (Auto) March 16, 2021 5:34pm 1.63 1000/mm3 1.2-3.4 [facility] [address] [address] Lymphocytes # (Auto) March 18, 2021 7:56pm 1.60 1000/mm3 1.2-3.4 [facility] [address] [address] Lymphocytes # (Auto) March 20, 2021 4:37pm 1.29 1000/mm3 1.2-3.4 [facility] [address] [address] Lymphocytes # (Auto) August 07, 2021 1:30pm 1.20 1000/mm3 1.2-3.4 [facility] [address] [address] Lymphocytes # (Auto) August 10, 2021 3:14pm 1.56 1000/mm3 1.2-3.4 [facility] [address] [address] Monocytes # (Auto) October 14, 2020 11:38pm 0.61 1000/mm3 0.0-0.8 [facility] [address] [place] [address] Monocytes # (Auto) January 02, 2021 4:44pm 0.42 1000/mm3 0.0-0.8 [facility] [address] [address] Monocytes # (Auto) January 07, 2021 5:35pm 0.32 1000/mm3 0.0-0.8 [facility] [address] [address] Monocytes # (Auto) January 29, 2021 9:57pm 0.38 1000/mm3 0.0-0.8 [facility] [address] [address] Monocytes # (Auto) March 16, 2021 5:34pm 0.42 1000/mm3 0.0-0.8 [facility] [address] [address] Monocytes # (Auto) March 18, 2021 7:56pm 0.38 1000/mm3 0.0-0.8 [facility] [address] [address] Monocytes # (Auto) March 20, 2021 4:37pm 0.29 1000/mm3 0.0-0.8 [facility] [address] [address] Monocytes # (Auto) August 07, 2021 1:30pm 0.29 1000/mm3 0.0-0.8 [facility] [address] [address] Monocytes # (Auto) August 10, 2021 3:14pm 0.32 1000/mm3 0.0-0.8 [facility] [address] [address] Eosinophils # (Auto) October 14, 2020 11:38pm 0.08 1000/mm3 0.0-0.7 [facility] [address] [place] [address] Eosinophils # (Auto) January 02, 2021 4:44pm 0.15 1000/mm3 0.0-0.7 MA[facility] [address] [address] Eosinophils # (Auto) January 07, 2021 5:35pm 0.17 1000/mm3 0.0-0.7 MA[facility] [address] [address] Eosinophils # (Auto) January 29, 2021 9:57pm 0.10 1000/mm3 0.0-0.7 MAIN LAB [address] [address] Eosinophils # (Auto) March 16, 2021 5:34pm 0.16 1000/mm3 0.0-0.7 MAIN LAB [address] [address] Eosinophils # (Auto) March 18, 2021 7:56pm 0.17 1000/mm3 0.0-0.7 MAIN LAB [address] [address] Eosinophils # (Auto) March 20, 2021 4:37pm 0.14 1000/mm3 0.0-0.7 MAIN LAB [address] [address] Eosinophils # (Auto) August 07, 2021 1:30pm 0.06 1000/mm3 0.0-0.7 MAIN LAB [address] [address] Eosinophils # (Auto) August 10, 2021 3:14pm 0.10 1000/mm3 0.0-0.7 MAIN LAB [address] [address] Basophils # (Auto) October 14, 2020 11:38pm 0.10 1000/mm3 0.0-0.1 MAIN LAB [address] [place] [address] Basophils # (Auto) January 02, 2021 4:44pm 0.06 1000/mm3 0.0-0.1 MAIN LAB [address] [address] Basophils # (Auto) January 07, 2021 5:35pm 0.08 1000/mm3 0.0-0.1 MAIN LAB [address] [address] Basophils # (Auto) January 29, 2021 9:57pm 0.07 1000/mm3 0.0-0.1 MAIN LAB [address] [address] Basophils # (Auto) March 16, 2021 5:34pm 0.07 1000/mm3 0.0-0.1 MAIN LAB [address] [address] Basophils # (Auto) March 18, 2021 7:56pm 0.06 1000/mm3 0.0-0.1 MAIN LAB [address] [address] Basophils # (Auto) March 20, 2021 4:37pm 0.05 1000/mm3 0.0-0.1 MAIN LAB [address] [address] Basophils # (Auto) August 07, 2021 1:30pm 0.04 1000/mm3 0.0-0.1 MAIN LAB [address] [address] Basophils # (Auto) August 10, 2021 3:14pm 0.03 1000/mm3 0.0-0.1 MAIN LAB [address] [address] Absolute Immature Granulocyte (auto October 14, 2020 11:38pm 0.0 0-1 MA[facility] [address] [place] [address] Absolute Immature Granulocyte (auto January 02, 2021 4:44pm 0.0 0-1 MAIN LAB [address] [address] Absolute Immature Granulocyte (auto January 07, 2021 5:35pm 0.0 0-1 MAIN LAB [address] [address] Absolute Immature Granulocyte (auto January 29, 2021 9:57pm 0.0 0-1 MAIN LAB [address] [address] Absolute Immature Granulocyte (auto March 16, 2021 5:34pm 0.0 0-1 MAIN LAB [address] [address] Absolute Immature Granulocyte (auto March 18, 2021 7:56pm 0.0 0-1 MAIN LAB [address] [address] Absolute Immature Granulocyte (auto March 20, 2021 4:37pm 0.0 0-1 MAIN LAB [address] [address] Absolute Immature Granulocyte (auto August 07, 2021 1:30pm 0.0 0-1 MAIN LAB [address] [address] Absolute Immature Granulocyte (auto August 10, 2021 3:14pm 0.0 0-1 MAIN [facility] [address] [address] Differential Method October 14, 2020 11:38pm Automated MAIN LAB [address] [place] [address] Differential Method January 02, 2021 4:44pm Automated MAIN LAB [address] [address] Differential Method January 07, 2021 5:35pm Automated MAIN [facility] [address] [address] Differential Method January 29, 2021 9:57pm Automated MAIN [facility] [address] [address] Differential Method March 16, 2021 5:34pm Automated MAIN [facility] [address] [address] Differential Method March 18, 2021 7:56pm Automated MAIN [facility] [address] [address] Differential Method March 20, 2021 4:37pm Automated MAIN [facility] [address] [address] Differential Method August 07, 2021 1:30pm Automated MAIN LAB [address] [address] Differential Method August 10, 2021 3:14pm Automated MAIN LAB [address] [address] Differential Pathologist's Review October 14, 2020 11:38pm See comment No comparison data on file at [facility]. Microcytic hypochromic anemia, consistent with iron deficiency.Brice martin reviewed by pathologist for rn quality.Hair Mello MD10/15/20 MAIN LAB [address] [place] [address] Prothrombin Time October 14, 2020 11:38pm 10.8 SECONDS 9.6-11.2 [facility] [address] [place] [address]284 Prothromb Time International Ratio October 14, 2020 11:38pm 1.1 2.0-3.0 INR value valid only on patients on stabilized warfarin therapy. The recommended therapeutic range for warfarin (Coumadin) for most clinical indications is an INR of 2.0-3.0. An INR of 2.5-3.5 is recommended for patients with mechanical heart valves. MAIN LAB [address] [place] [address] Activated Partial Thromboplast Time October 14, 2020 11:38pm 26.1 SECONDS 21.6-36.0 A target of 1.5-2.5 times the mean of the normal reference range is considered therapeutic. NOTE: APTT must NOT be used to monitor LMWH therapy. Contact [facility] Pharmacy for monitoring information. MAIN LAB [address] [place] [address] Urine Color January 02, 2021 6:04pm Lauren MAIN LAB [address] [address] Urine Clarity January 02, 2021 6:04pm very cloudy MAIN LAB [address] [address] Urine pH January 02, 2021 6:04pm 6.0 MAIN LAB [address] [address] Urine Specific [place] January 02, 2021 6:04pm 1.015 MAIN LAB [address] [address] Urine Protein January 02, 2021 6:04pm 100 (2+) mg/dL NEGATIVE MAIN LAB [address] [address] Urine Glucose (UA) January 02, 2021 6:04pm Normal mg/dL NORMAL MAIN LAB [address] [address] Urine Ketones January 02, 2021 6:04pm Negative NEGATIVE MAIN LAB [address] [address] Urine Nitrite January 02, 2021 6:04pm Negative Negative MAIN LAB [address] [address]195 Urine Bilirubin January 02, 2021 6:04pm Negative mg/dL NEGATIVE MAIN LAB [address] [address] Urine Urobilinogen January 02, 2021 6:04pm Normal mg/dL NORMAL MAIN LAB [address] [address] Urine Leukocyte Esterase January 02, 2021 6:04pm Moderate (2+) WBC/uL NEGATIVE MAIN LAB [address] [address] Urine Blood January 02, 2021 6:04pm Large (3+) JOEL/uL NEGATIVE MAIN LAB [address] [address] Urine RBC October 14, 2020 11:45pm 10-20 /hpf MAIN LAB [address] [place] [address]40 Urine RBC January 02, 2021 6:04pm Tntc /hpf MAIN LAB [address] [address] Urine RBC March 16, 2021 6:40pm Tntc /hpf MAIN LAB [address] [address] Urine RBC June 27, 2021 4:10pm 0-2 /hpf MAIN LAB [address] [address] Urine WBC October 14, 2020 11:45pm 0-2 /hpf MAIN LAB [address] [place] [address]708 Urine WBC January 02, 2021 6:04pm 3-5 /hpf MAIN LAB [address] [address] Urine WBC March 16, 2021 6:40pm See comment /hpf Microscopic field obscured by RBC. MAIN LAB [address] [address] Urine WBC June 27, 2021 4:10pm None seen /hpf MAIN LAB [address] [address] Urine Squamous Epithelial Cells January 02, 2021 6:04pm 1+ /hpf MAIN LAB [address] [address] Urine Squamous Epithelial Cells June 27, 2021 4:10pm 2+ /hpf MAIN LAB [address] [address] Urine Bacteria October 14, 2020 11:45pm 1+ /hpf NONE SEEN MAIN LAB [address] [place] [address]79 Urine Bacteria January 02, 2021 6:04pm None seen /hpf NONE SEEN MAIN LAB [address] [address] Urine Bacteria March 16, 2021 6:40pm See comment /hpf NONE SEEN Microscopic field obscured by RBC. MAIN LAB [address] [address] Urine Bacteria June 27, 2021 4:10pm 1+ /hpf NONE SEEN MAIN LAB [address] [address] Urine Mucus October 14, 2020 11:45pm Present MAIN LAB [address] [place] [address]653 Urine Mucus June 27, 2021 4:10pm Present MAIN LAB [address] [address] Urine Culture Done October 14, 2020 11:45pm No CULTURE NOT INDICATED. MAIN LAB [address] [place] [address] Urine Culture Done January 02, 2021 6:04pm Yes URINE SPECIMEN CULTURED MAIN LAB [address] [address] Urine Culture Done March 16, 2021 6:40pm Yes URINE SPECIMEN CULTURED MAIN LAB [address] [address] Urine Culture Done June 27, 2021 4:10pm No CULTURE NOT INDICATED. MAIN LAB [address] [address] Urine Test January 02, 2021 6:04pm Negative NEGATIVE MAIN LAB [address] [address] Sodium Level October 14, 2020 11:38pm 138 mmol/L 137-145 MAIN LAB [address] [place] [address] Sodium Level January 02, 2021 4:44pm 141 mmol/L 137-145 MAIN LAB [address] [address] Sodium Level January 07, 2021 5:35pm 140 mmol/L 137-145 MAIN LAB [address] [address] Sodium Level January 29, 2021 9:57pm 137 mmol/L 137-145 MAIN LAB [address] [address] Sodium Level March 16, 2021 5:34pm 137 mmol/L 137-145 MAIN LAB [address] [address] Sodium Level March 18, 2021 7:56pm 141 mmol/L 137-145 MAIN LAB [address] [address] Sodium Level March 20, 2021 5:04pm 140 mmol/L 137-145 MAIN LAB [address] [address] Sodium Level August 07, 2021 1:30pm 141 mmol/L 137-145 MAIN LAB [address] [address] Sodium Level August 10, 2021 3:14pm 140 mmol/L 137-145 MAIN LAB [address] [address] Potassium Level October 14, 2020 11:38pm 3.8 mmol/L 3.6-5.0 MAIN LAB [address] [place] [address]98 Potassium Level January 02, 2021 4:44pm 3.9 mmol/L 3.6-5.0 MAIN LAB [facility] [address] [facility] [address] Potassium Level January 07, 2021 5:35pm 3.7 mmol/L 3.6-5.0 MAIN LAB [facility] [address] [facility] [address] Potassium Level January 29, 2021 9:57pm 3.5 mmol/L 3.6-5.0 MAIN LAB [address] [address] Potassium Level March 16, 2021 5:34pm 4.0 mmol/L 3.6-5.0 MAIN LAB [address] [address] Potassium Level March 18, 2021 7:56pm 3.4 mmol/L 3.6-5.0 MAIN LAB [address] [address] Potassium Level March 20, 2021 5:04pm 3.8 mmol/L 3.6-5.0 MAIN LAB [address] [address] Potassium Level August 07, 2021 1:30pm 4.3 mmol/L 3.6-5.0 MAIN LAB [address] [address] Potassium Level August 10, 2021 3:14pm 4.0 mmol/L 3.6-5.0 MAIN LAB [address] [address] Chloride Level October 14, 2020 11:38pm 100 mmol/L 98-107 MAIN LAB [address] [place] [address]261 Chloride Level January 02, 2021 4:44pm 104 mmol/L 98-107 MAIN LAB [address] [address] Chloride Level January 07, 2021 5:35pm 103 mmol/L 98-107 MAIN LAB [address] [address] Chloride Level January 29, 2021 9:57pm 99 mmol/L 98-107 MAIN LAB [address] [address] Chloride Level March 16, 2021 5:34pm 102 mmol/L 98-107 MAIN LAB [facility] [address] [facility] [address] Chloride Level March 18, 2021 7:56pm 102 mmol/L 98-107 MAIN LAB [facility] [address] [facility] [address] Chloride Level March 20, 2021 5:04pm 103 mmol/L 98-107 MAIN LAB [facility] [address] [facility] [address] Chloride Level August 07, 2021 1:30pm 105 mmol/L 98-107 MAIN LAB [facility] [address] [facility] [address] Chloride Level August 10, 2021 3:14pm 103 mmol/L 98-107 MAIN LAB [address] [address] Carbon Dioxide Level October 14, 2020 11:38pm 25 mmol/L 22-30 MAIN LAB [address] [place] [address] Carbon Dioxide Level January 02, 2021 4:44pm 26 mmol/L 22-30 MAIN LAB [address] [address] Carbon Dioxide Level January 07, 2021 5:35pm 27 mmol/L 22-30 MAIN LAB [address] [address] Carbon Dioxide Level January 29, 2021 9:57pm 27 mmol/L 22-30 MAIN LAB [address] [address] Carbon Dioxide Level March 16, 2021 5:34pm 28 mmol/L 22-30 MAIN LAB [facility] [address] [facility] [address] Carbon Dioxide Level March 18, 2021 7:56pm 29 mmol/L 22-30 MAIN LAB [facility] [address] [facility] [address] Carbon Dioxide Level March 20, 2021 5:04pm 27 mmol/L 22-30 MAIN LAB [address] [address] Carbon Dioxide Level August 07, 2021 1:30pm 24 mmol/L 22-30 MAIN LAB [address] [address] Carbon Dioxide Level August 10, 2021 3:14pm 26 mmol/L 22-30 MAIN LAB [facility] [address] [facility] [address] Anion Gap October 14, 2020 11:38pm 13 7-16 MAIN [facility] [address] [facility] [address] Anion Gap January 02, 2021 4:44pm 11 7-16 MAIN LAB [facility] [address] [facility] [address] Anion Gap January 07, 2021 5:35pm 10 - MAIN LAB [facility] [address] [facility] [address] Anion Gap January 29, 2021 9:57pm 11 - MAIN LAB [facility] [address] [facility] [address] Anion Gap March 16, 2021 5:34pm 7 - MAIN LAB [address] [address] Anion Gap March 18, 2021 7:56pm 10 - MAIN LAB [address] [address] Anion Gap March 20, 2021 5:04pm 10 - MAIN LAB [facility] [address] [facility] [address] Anion Gap August 07, 2021 1:30pm 12 - MAIN LAB [address] [address] Anion Gap August 10, 2021 3:14pm 11 - MAIN LAB [address] [address] Blood Urea Nitrogen October 14, 2020 11:38pm 15 mg/dL - MAIN LAB [address] [facility] [address] Blood Urea Nitrogen January 02, 2021 4:44pm 11 mg/dL - MAIN LAB [facility] [address] [facility] [address] Blood Urea Nitrogen January 07, 2021 5:35pm 13 mg/dL - MAIN LAB [facility] [address] [facility] [address] Blood Urea Nitrogen January 29, 2021 9:57pm 13 mg/dL 7- MAIN LAB [facility] [address] [facility] [address] Blood Urea Nitrogen March 16, 2021 5:34pm 10 mg/dL - MAIN LAB [address] [place] [address] Blood Urea Nitrogen March 18, 2021 7:56pm 10 mg/dL 7- MAIN LAB [address] [address] Blood Urea Nitrogen March 20, 2021 5:04pm 5 mg/dL 7- MAIN LAB [address] [address] Blood Urea Nitrogen August 07, 2021 1:30pm 14 mg/dL 7- MAIN LAB [address] [address] Blood Urea Nitrogen August 10, 2021 3:14pm 7 mg/dL 7- MAIN LAB [address] [address] Creatinine October 14, 2020 11:38pm 0.76 mg/dL 0.52-1.04 MAIN LAB [address] [place] [address] Creatinine January 02, 2021 4:44pm 0.76 mg/dL 0.52-1.04 MAIN LAB [address] [address] Creatinine January 07, 2021 5:35pm 0.79 mg/dL 0.52-1.04 MAIN LAB [address] [address] Creatinine January 29, 2021 9:57pm 0.84 mg/dL 0.52-1.04 MAIN LAB [address] [address] Creatinine March 16, 2021 5:34pm 0.62 mg/dL 0.52-1.04 MAIN LAB [address] [address] Creatinine March 18, 2021 7:56pm 0.66 mg/dL 0.52-1.04 MAIN LAB [address] [address] Creatinine March 20, 2021 5:04pm 0.59 mg/dL 0.52-1.04 MAIN LAB [address] [address] Creatinine August 07, 2021 1:30pm 0.65 mg/dL 0.52-1.04 MAIN LAB [address] [address]791 Creatinine August 10, 2021 3:14pm 0.60 mg/dL 0.52-1.04 MAIN LAB [address] [address] Glomerular Filtration Rate Calc October 14, 2020 11:38pm > 60 mL/min >60.0 MAIN LAB [address] [place] [address] Glomerular Filtration Rate Calc January 02, 2021 4:44pm > 60 mL/min >60.0 MAIN LAB [address] [address] Glomerular Filtration Rate Calc January 07, 2021 5:35pm > 60 mL/min >60.0 MAIN LAB [address] [address] Glomerular Filtration Rate Calc January 29, 2021 9:57pm > 60 mL/min >60.0 MAIN LAB [address] [address]85 Glomerular Filtration Rate Calc March 16, 2021 5:34pm > 60 mL/min >60.0 MAIN LAB [address] [address]46 Glomerular Filtration Rate Calc March 18, 2021 7:56pm > 60 mL/min >60.0 MAIN LAB [address] [address]608 Glomerular Filtration Rate Calc March 20, 2021 5:04pm > 60 mL/min >60.0 MAIN LAB [address] [address]752 Glomerular Filtration Rate Calc August 07, 2021 1:30pm > 60 mL/min >60.0 MAIN LAB [address] [address]662 Glomerular Filtration Rate Calc August 10, 2021 3:14pm > 60 mL/min >60.0 MAIN LAB [address] 6[address] Glucose Level October 14, 2020 11:38pm 88 mg/dL 70-100 MAIN LAB [address] [place] [address]53 Glucose Level January 02, 2021 4:44pm 88 mg/dL 70-100 MAIN LAB [address] 8[address]24 Glucose Level January 07, 2021 5:35pm 105 mg/dL 70-100 MAIN LAB [address] [place] [address] Glucose Level January 29, 2021 9:57pm 92 mg/dL 70-100 MAIN LAB [facility] [address] [facility] [address] Glucose Level March 16, 2021 5:34pm 90 mg/dL 70-100 MAIN LAB [facility] [address] [facility] [address] Glucose Level March 18, 2021 7:56pm 84 mg/dL 70-100 MAIN LAB [address] [address] Glucose Level March 20, 2021 5:04pm 91 mg/dL 70-100 MAIN LAB [address] [address]77 Glucose Level August 07, 2021 1:30pm 100 mg/dL 70-100 MAIN LAB [address] [address]181 Glucose Level August 10, 2021 3:14pm 85 mg/dL 70-100 MAIN LAB [address] [address] Calcium Level October 14, 2020 11:38pm 9.3 mg/dL 8.4-10.2 MAIN LAB [address] [place] [address]36 Calcium Level January 02, 2021 4:44pm 9.3 mg/dL 8.4-10.2 MAIN LAB [address] [address] Calcium Level January 07, 2021 5:35pm 9.6 mg/dL 8.4-10.2 MAIN LAB [facility] [address] [facility] [address] Calcium Level January 29, 2021 9:57pm 9.8 mg/dL 8.4-10.2 MAIN LAB [address] [address] Calcium Level March 16, 2021 5:34pm 9.5 mg/dL 8.4-10.2 MAIN LAB [address] [address]240 Calcium Level March 18, 2021 7:56pm 9.3 mg/dL 8.4-10.2 MAIN LAB [address] [address] Calcium Level March 20, 2021 5:04pm 9.4 mg/dL 8.4-10.2 MAIN LAB [address] [address] Calcium Level August 07, 2021 1:30pm 9.8 mg/dL 8.4-10.2 MAIN LAB [address] [address]284 Calcium Level August 10, 2021 3:14pm 9.2 mg/dL 8.4-10.2 MAIN LAB [address] 8[address] Calcium Adjusted for Albumin October 14, 2020 11:38pm 9.2 mg/dL 8.4-10.2 MAIN LAB [address] [place] [address] Calcium Adjusted for Albumin January 02, 2021 4:44pm 8.8 mg/dL 8.4-10.2 MAIN LAB [address] [address] Calcium Adjusted for Albumin January 07, 2021 5:35pm 9.3 mg/dL 8.4-10.2 MAIN LAB [address] [address] Calcium Adjusted for Albumin March 16, 2021 5:34pm 9.4 mg/dL 8.4-10.2 MAIN LAB [address] [address] Calcium Adjusted for Albumin March 18, 2021 7:56pm 9.1 mg/dL 8.4-10.2 MAIN LAB [address] [address] Calcium Adjusted for Albumin August 07, 2021 1:30pm 9.2 mg/dL 8.4-10.2 MAIN LAB [address] [address] Iron Level October 14, 2020 11:38pm 36 ug/dL 37-170 MAIN LAB [address] [place] [address]180 Total Bilirubin October 14, 2020 11:38pm 0.3 mg/dL 0.2-1.3 MAIN LAB [address] [place] [address] 68509 Total Bilirubin January 02, 2021 4:44pm 0.4 mg/dL 0.2-1.3 MAIN LAB [address] [address]303 Total Bilirubin January 07, 2021 5:35pm 0.4 mg/dL 0.2-1.3 MAIN LAB [address] [address]642 Total Bilirubin March 16, 2021 5:34pm 0.4 mg/dL 0.2-1.3 MAIN LAB [address] [address]504 Total Bilirubin March 18, 2021 7:56pm 0.4 mg/dL 0.2-1.3 MAIN LAB [address] [address]676 Total Bilirubin August 07, 2021 1:30pm 0.6 mg/dL 0.2-1.3 MAIN LAB [address] [address]644 Aspartate Amino Transf (AST/SGOT) October 14, 2020 11:38pm 55 U/L 14-36 MAIN LAB [address] [place] [address]3215 Aspartate Amino Transf (AST/SGOT) January 02, 2021 4:44pm 39 U/L 14-36 MAIN LAB [address] [address]160 Aspartate Amino Transf (AST/SGOT) January 07, 2021 5:35pm 38 U/L 14-36 MAIN LAB [address] 47263 Aspartate Amino Transf (AST/SGOT) March 16, 2021 5:34pm 36 U/L 14-36 MAIN LAB [address] [address] Aspartate Amino Transf (AST/SGOT) March 18, 2021 7:56pm 37 U/L 14-36 MAIN LAB [address] [address]775 Aspartate Amino Transf (AST/SGOT) August 07, 2021 1:30pm 48 U/L 14-36 MAIN LAB [address] [address] Alanine Aminotransferase (ALT/SGPT) October 14, 2020 11:38pm 41 U/L <35 As of 09/13/19, the Reference Range for ALT/SGPT for adult patients has been updated. The Reference Range for ALT/SGPT has not been established for patients <18 years of age. MAIN LAB [address] [place] [address] Alanine Aminotransferase (ALT/SGPT) January 02, 2021 4:44pm 21 U/L <35 As of 09/13/19, the Reference Range for ALT/SGPT for adult patients has been updated. The Reference Range for ALT/SGPT has not been established for patients <18 years of age. MAIN LAB [address] [address] Alanine Aminotransferase (ALT/SGPT) January 07, 2021 5:35pm 23 U/L <35 As of 09/13/19, the Reference Range for ALT/SGPT for adult patients has been updated. The Reference Range for ALT/SGPT has not been established for patients <18 years of age. MAIN LAB [address] [address] Alanine Aminotransferase (ALT/SGPT) March 16, 2021 5:34pm 17 U/L <35 As of 09/13/19, the Reference Range for ALT/SGPT for adult patients has been updated. The Reference Range for ALT/SGPT has not been established for patients <18 years of age. MAIN LAB [address] [address] Alanine Aminotransferase (ALT/SGPT) March 18, 2021 7:56pm 19 U/L <35 As of 09/13/19, the Reference Range for ALT/SGPT for adult patients has been updated. The Reference Range for ALT/SGPT has not been established for patients <18 years of age. MAIN LAB [address] [address] Alanine Aminotransferase (ALT/SGPT) August 07, 2021 1:30pm 36 U/L <35 As of 09/13/19, the Reference Range for ALT/SGPT for adult patients has been updated. The Reference Range for ALT/SGPT has not been established for patients <18 years of age. MAIN LAB [address] [address] Lactic Acid Level March 18, 2021 7:56pm 1.0 mmol/L 0.7-2.1 MAIN LAB [address] [address]906 Total Protein October 14, 2020 11:38pm 7.4 g/dL 6.3-8.2 MAIN LAB [address] [place] [address] 68896 Total Protein January 02, 2021 4:44pm 7.9 g/dL 6.3-8.2 MAIN LAB [address] 13276 Total Protein January 07, 2021 5:35pm 7.7 g/dL 6.3-8.2 MAIN LAB [address] 05085 Total Protein March 16, 2021 5:34pm 7.2 g/dL 6.3-8.2 MAIN LAB [address] 84307 Total Protein March 18, 2021 7:56pm 7.6 g/dL 6.3-8.2 MAIN LAB [address] 60655 Total Protein August 07, 2021 1:30pm 8.3 g/dL 6.3-8.2 MAIN LAB [address] 10243 Albumin October 14, 2020 11:38pm 4.4 g/dL 3.5-5.0 MAIN LAB [address] [place] [address] 33170 Albumin January 02, 2021 4:44pm 4.9 g/dL 3.5-5.0 MAIN LAB [address] 38523 Albumin January 07, 2021 5:35pm 4.7 g/dL 3.5-5.0 MAIN LAB [address] 22703 Albumin March 16, 2021 5:34pm 4.4 g/dL 3.5-5.0 MAIN LAB [address] 00454 Albumin March 18, 2021 7:56pm 4.6 g/dL 3.5-5.0 MAIN LAB [address] 5[address]29 Albumin August 07, 2021 1:30pm 5.0 g/dL 3.5-5.0 MAIN LAB [address] 29299 Alkaline Phosphatase October 14, 2020 11:38pm 55 U/L 38-126 MAIN LAB [address] [place] [address] 82365 Alkaline Phosphatase January 02, 2021 4:44pm 58 U/L 38-126 MAIN LAB [address] 38033 Alkaline Phosphatase January 07, 2021 5:35pm 58 U/L 38-126 MAIN LAB [address] 20624 Alkaline Phosphatase March 16, 2021 5:34pm 45 U/L 38-126 MAIN LAB [address] 41580 Alkaline Phosphatase March 18, 2021 7:56pm 47 U/L 38-126 MAIN LAB [address] 62991 Alkaline Phosphatase August 07, 2021 1:30pm 58 U/L 38-126 MAIN LAB [address] 93605 Lipase October 14, 2020 11:38pm 43 U/L 23-300 MAIN LAB [address] [place] [address] 18120 Lipase August 07, 2021 1:30pm 64 U/L 23-300 MAIN LAB [address] [address] Ferritin October 14, 2020 11:38pm 4.43 ng/mL 10-291 The results of this assay can be falsely decreased in patients who consume Biotin. MAIN LAB [address] [place] [address]503 Microbiology Results Procedure Source Result Collection Date/Time Result Date/Time Result Comment Performing Site Blood Culture Blood, Left Antecubital NO GROWTH AFTER 5 DAYS March 18, 2021 9:10pm March 24, 2021 7:15am MAIN LAB [address] [address] Urine Culture Ur,Clean Catch January 02, 2021 6:40pm January 04, 2021 8:36am MAIN LAB [address] [address] Urine Culture Ur,Clean Catch March 16, 2021 7:39pm March 18, 2021 10:45am MAIN LAB [address] [address] Gram Stain Umbilicus March 16, 2021 10:27am March 17, 2021 8:17am MAIN LAB [address] [address] Routine Culture Umbilicus Staphylococcus Aureus-Mrsa March 16, 2021 10:27am March 20, 2021 8:34am MAIN LAB [address] [address] Diagnostic Imaging Reports Report Dictated Date/Time Dictated By Status Radiology Report January 02, 2021 5:42pm Megan Balderas MD completed [facility] CAT SCAN REPORT PATIENT NAME: EDUARDO PAYAN [...] Signed By : Megan Morales MD dd: 01/02/21 [id number] Report Dictated Date/Time Dictated By Status Radiology Report March 16, 2021 8:09pm Tiburcio Heaton MD completed [facility] CAT SCAN REPORT PATIENT NAME: EDUARDO PAYAN [...] had a laporoscopy compelted on 03/05/21, at [facility] in [place]. States she is having sharp cramping stabbing [...] By : Tiburcio Heaton MD dd: 03/16/[id number]/[id number] Report Dictated Date/Time Dictated By Status Radiology Report August 07, 2021 4:03pm Yuli Jiang DO completed [facility] CAT SCAN REPORT PATIENT NAME: EDUARDO PAYAN [id number] DATE OF : 2000 ATTENDING/ER PHYSICIAN: ER/ATTENDING PHYSICIAN: Elias Castro PA-C PRIMARY CARE PHYS: [place] ADMITTING PHYSICIAN: CONSULTING PHYSICIAN: PROCEDURE DATE: 08/07/21 REPORT STATUS: Signed DICTATING PHYSICIAN: Yuli Jiang DO REASON FOR EXAM: diffuse abd pain PROCEDURE INFORMATION: Exam: CT Abdomen And Pelvis With Contrast Exam date and time: 08/07/2021 2:27 PM Age: 21 years old Clinical indication: Abdominal pain; Localized; Right; Prior surgery; Surgery type: Appy; Additional info: Diffuse abd pain TECHNIQUE: Imaging protocol: Computed tomography of [...] (IV); COMPARISON: CT Abd Pel w/ Contrast 03/16/2021 7:30 PM FINDINGS: Lungs: No concerning finding. Liver: The liver is unremarkable. Gallbladder and bile ducts: The gallbladder is unremarkable. No biliary ductal dilatation. Pancreas: The pancreas is unremarkable. Spleen: The spleen is unremarkable. Adrenal glands: The adrenal glands are unremarkable. Kidneys and ureters: No hydronephrosis or nephrolithiasis. Stomach and bowel: No evidence of bowel obstruction. No pericolonic inflammatory stranding. Large colonic stool burden. Inspissated stool within the rectosigmoid colon. Appendix: Appendix is not seen; there is a pericecal surgical clip which suggests prior appendectomy. Additionally, no pericecal inflammatory change to suggest appendicitis. Intraperitoneal space: See Reproductive finding. No pneumoperitoneum. Vasculature: The aorta is unremarkable. Lymph nodes: Unremarkable. No enlarged lymph nodes. Urinary bladder: No focal wall thickening of the urinary bladder. Reproductive: Crenulated right ovarian cyst, 5-29, consistent with corpus luteum, and possible trace pelvic hemoperitoneum, may indicate corpus luteal cyst rupture potentially a cause of pain. Bones/joints: Unremarkable. No acute fracture. Soft tissues: Unremarkable. IMPRESSION: 1. Small right corpus luteal cyst and possible trace pelvic hemoperitoneum, may indicate corpus luteal cyst rupture and is potentially a cause of pain. 2. Large colonic stool burden with inspissated rectosigmoid stool, potentially a cause of pain. 3. No other acute abdominopelvic process or detectable etiology for abdominal pain. Electronically Signed By : Yuli Jiang DO dd: 08/07/[id number]/[id number] Vital Signs Vital Reading Result Reference Range Collection Date/Time Weight 90.71 kg October 14, 2020 10:53pm Body Temperature 97.9 [degF] 97.6-99.6 October 14, 2 021 10:53pm Heart Rate 80 /min 60-100 [...] January 02 7:20pm Respiratory rate 18 /min 12-December 7:20pm Oxygen saturation by Pulse oximetry 96 [...] 2 021 8:33pm Respiratory rate 16 /min 05-07 8:33pm Oxygen saturation by Pulse oximetry 99 [...] 2 021 5:00pm Respiratory rate 17 /min 05-07 5:00pm Oxygen saturation by Pulse oximetry 100 % 95-100 March 20, 2021 5 :00pm BP Systolic 124 mm[Hg] 100-140 March 20, 2 021 5:00pm BP Diastolic 57 mm[Hg] 50-85 March 20, 2 021 5:00pm Weight 95.25 kg March 27, 2021 1:22pm Body Temperature 98.6 [degF] 97.6-99.6 March 272020 1:22pm Heart Rate 62 /min 60-100 March 27, 2021 2:20pm Respiratory rate 18 /min -March 272020 2:20pm Oxygen saturation by Pulse oximetry 98 % 95-100 March 27, 2021 2:20pm BP Systolic 106 mm[Hg] 100-140 March 27, 2021 2:20pm BP Diastolic 59 mm[Hg] 50-85 March 27, 2021 2:20pm Weight 86.18 kg June 27, 2021 3:33pm Body Temperature 98.2 [degF] 97.6-99.6 June 272021 3:33pm Heart Rate 75 /min 60-100 June 27, 2021 3:33pm Respiratory rate 18 /min 12-24 June 272021 3:33pm Oxygen saturation by Pulse oximetry 99 % 95-100 June 27, 2021 3:33pm BP Systolic 116 mm[Hg] 100-140 June 27, 2021 3:33pm BP Diastolic 70 mm[Hg] 50-85 June 27, 2021 3:33pm Height 65 [in_i] August 07 12:08pm Weight 86.18 kg August 07 12:08pm Body Temperature 98.6 [degF] 97.6-99.6 August 07, 2021 12:08pm Heart Rate 112 /min 60-100 August 07 5:10pm Respiratory rate 20 /min -August 07, 2021 12:08pm Oxygen saturation by Pulse oximetry 96 % 95-100 August 07, 2021 5:1 0pm BP Systolic 99 mm[Hg] 100-140 August 07 5:10pm BP Diastolic 65 mm[Hg] 50-85 August 07 5:10pm Weight 86.18 kg August 10 2:47pm Body Temperature 98.1 [degF] 97.6-99.6 August 10, 2021 2:47pm Heart Rate 76 /min 60-100 August 10 5:10pm Respiratory rate 18 /min -August 10, 2021 5:10pm Oxygen saturation by Pulse oximetry 98 % 95-100 August 10, 2021 5:1 0pm BP Systolic 124 mm[Hg] 100-140 August 10 5:10pm BP Diastolic 69 mm[Hg] 50-85 August 10 5:10pm Weight 86.18 kg August 26 5:37pm Body Temperature 97.8 [degF] 97.6-99.6 August 26, 2021 5:37pm Heart Rate 78 /min 60-100 August 26 5:37pm Respiratory rate 18 /min -August 26, 2021 5:37pm Oxygen saturation by Pulse oximetry 100 % 95-100 August 26, 2021 5:3 7pm BP Systolic 105 mm[Hg] 100-140 August 26 5:37pm BP Diastolic 61 mm[Hg] 50-85 August 26 5:37pm Weight 79.37 kg September 23, 2021 3:18pm Body Temperature 98.3 [degF] 97.6-99.6 September 23, 2 022 3:18pm Heart Rate 72 /min 60-100 September 23, 2021 7:21pm Respiratory rate 18 /min 12-24 September 23, 2 022 7:21pm Oxygen saturation by Pulse oximetry 100 % 95-100 September 23, 2021 7:21p m BP Systolic 105 mm[Hg] 100-140 September 23, 2021 7:21pm BP Diastolic 70 mm[Hg] 50-85 September 23, 2021 7:21pm Advance Directives Advance Directive Response Recorded Date/ Time Does patient have an Advanced Directive? No October 14, 2020 11:22pm Do we have a copy on file here at [facility]? No October 14, 2020 11:22pm Pt has a Living Will? No October 14, 2020 11:22pm Do we have a copy on file here at [facility]? No October 14, 2020 11:22pm Pt has a Power of Die Storage Clerk? No October 14, 2020 11:22pm Do we have a copy on file here at [facility]? No October 14, 2020 11:22pm Insurance Providers Guarantor EDUARDO PAYAN Address [address] [place] [address] Contact Info. Home Phone: Payer Policy Id Coverage Id Subscriber's Name Subscriber Id Effective Date Expiration Date [facility] [id number] EDUARDO PAYAN [id number] SELF PAY Self N/A Encounters Encounter Location(s) Arrival/Admit Date Discharge/Depart Date Provider(s) Departed Emergency [facility] October 14, 2020 10:48pm October 15, 2020 12:54am null Departed Emergency [facility] December 29, 2020 4:23pm December 29, 2020 7:13pm null Departed Emergency [facility] January 02, 2021 4:12pm January 02, 2021 7:22pm null Departed Emergency [facility] January 07, 2021 4:48pm January 07, 2021 6:55pm null Departed Emergency [facility] January 21, 2021 2:24pm January 21, 2021 4:51pm null Departed Emergency [facility] January 29, 2021 8:55pm January 29, 2021 11:08pm null Departed Emergency [facility] March 16, 2021 3:28pm March 16, 2021 10:43pm null Departed Emergency [facility] March 18, 2021 6:11pm March 18, 2021 9:19pm null Departed Emergency [facility] March 20, 2021 2:33pm March 20, 2021 6:25pm null Departed Emergency [facility] March 27, 2021 12:49pm March 27, 2021 3:32pm null Departed Emergency [facility] June 27, 2021 3:30pm June 27, 2021 5:01pm null Departed Emergency [facility] August 07, 2021 11:58am August 07, 2021 5:15pm null Departed Emergency [facility] August 10, 2021 2:19pm August 10, 2021 5:11pm null Departed Emergency [facility] August 26, 2021 5:22pm August 26, 2021 7:15pm null Departed Emergency [facility] September 23, 2021 3:02pm September 23, 2021 7:35pm null Functional Status Observation Response Date Recorded Living Situation Home September 23, 2021 7:35pm With Family September 23, 2021 7 :35pm Mental Status Observation Response Date Recorded Comprehension Ability Understands Concepts Septe mber 2020 9:35pm Mood/Behavior Anxious January 29, 2021 9:35pm Comprehension Ability Understands Concepts Augus t 2020 5:40pm Mood/Behavior Anxious January 07 5:40pm Comprehension Ability Understands Concepts Augus t 2020 4:30pm Mood/Behavior Appropriate January 02 4:30pm Speech Appropriate September 23, 2021 3 :50pm Comprehension Ability Understands Concepts 2020 8:30pm Speech Appropriate March 18 8:30pm [...] Date Provider Provider Contact Information Provider Address [facility] Work Phone: [facility] [address] [facility] [address] [place] [facility] Emely holloway MD Work Phone: [facility] PEDIATRIC ASSISTANT [address] [place] [phone] Chavez and will see for [facility] Work Phone: [address] [place] [phone] No Pcp Mahad Chavez MD Work Phone: [facility] PEDIATRIC ASSISTANT [address] [place] [phone] No Pcp No Pcp No Pcp Out [facility] Work Phone: [address] [place] [address] [facility] [address] Out [facility] Work Phone: [address] [place] [phone] No Pcp No Pcp No Pcp Future [...] Pain (DC) Nausea and Vomiting After Surgery Constipation, Adult (DC) Diarrhea and Travelers' Diar rodriguez, Adult (DC) Nausea and Vomiting, Adult (DC) Pelvic Pain (DC) Endometriosis (DC) Abdominal Pain, Adult ED Hospital Discharge Instructions Additional Instructions Return tomorrow morning for ultrasound of your pelvis with a full bladder at 10 AM. Your test here was normal and your urine showed some mild dehydration. 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 It is important to keep a follow-up plan with them regarding recurrent pain. You do not have a large ovarian cyst on your ultrasound September 20. You were given morphine and Zofran here in the emergency department. You may take Tylenol at home as directed.
--- OUTSIDE RECORDS SUMMARY | 2022-11-20 17:44 | XMS_ITS | Continuity of Care Document ---
Author Name Unknown Address [address], [place] [address] Phone [facility] Address [address], [place] [address] Phone Care Team Providers Care [place] Stitcher Name Role Phone PCP, of Choice Primary Care Provider MD Konstantin Donis Emergency Provider Tae Quiroz Emergency Provider [phone] MD Sen Segovia Emergency Provider [phone] MD Yolanda Dial Emergency Provider [phone] MD Cory Murillo Emergency Provider PCP, Not Given Primary Care Provider KIRA Turner Emergency Provider MD Fahad Morejon Emergency Provider [phone] Care Teams Patient Care Team Team Status: Active Member Role Status Dates Not Given PCP Primary Care Provider Active Visit Care Team Team Status: Inactive Member Role Status Dates of Choice PCP Primary Care Provider Active Konstantin Villaseñor MD Emergency Provider Active Visit Care Team Team Status: Inactive Member Role Status Dates of Choice PCP Primary Care Provider Active Tae Quiroz Emergency Provider Active Visit Care Team Team Status: Inactive Member Role Status Dates of Choice PCP Primary Care Provider Active Sen Segovia MD Emergency Provider Active Visit Care Team Team Status: Inactive Member Role Status Dates of Choice PCP Primary Care Provider Active Cory Murillo MD Emergency Provider Active Visit Care Team Team Status: Inactive Member Role Status Dates of Choice PCP Primary Care Provider Active Konstantin Villaseñor MD Emergency Provider Active Visit Care Team Team Status: Inactive Member Role Status Dates Not Given PCP Primary Care Provider Active KIRA Lynn Emergency Provider Active Visit Care Team Team Status: Inactive Member Role Status Dates of Choice PCP Primary Care Provider Active Sen Segovia MD Emergency Provider Active Visit Care Team Team Status: Inactive Member Role Status Dates of Choice PCP Primary Care Provider Active Yolanda Dial MD Emergency Provider Active Visit Care Team Team Status: Inactive Member Role Status Dates Not Given PCP Primary Care Provider Active Fahad Morejon MD Emergency Provider Active Chief Complaint and Reason for Visit Chief Complaint POST OP CONCERN POST OP CONCERN, BLEEDING PELVIC PAIN HEAVY VAG BLEEDING VAG BLEEDING LOWER ABD/PELVIC PAIN ABD PAIN ABDOMINAL COMPLAINT VAG BLEEDING Allergies, Adverse Reactions, Alerts Allergen Type Severity Reaction Last Updated Verified Status droperidol Allergy anaphylactic shock October 162022 2:48pm Yes Active haloperidol Allergy rash October 16 2:48pm Yes Active ibuprofen Allergy October 16, 2022 2:48pm Yes Active ketorolac Allergy anaphylaxis October 16 2:48pm Yes Active latex Allergy rash October 16, 2022 2:48pm Yes Active metoclopramide Allergy October 23, 2022 7:51pm Yes Active Penicillins Allergy hives October 16 2:48pm Yes Active prochlorperazine Allergy hives October 2:48pm Yes Active promethazine Allergy October 23 7:51pm Yes Active Social History Smoking Status Status Start Date End Date Date of Observa tion Never smoked tobacco (finding) October 23, 2022 8:33pm Observation Status Observation Response Date of Response Alcohol Use Yes October 23, 2022 8:33pm alcohol intake frequency a few times a month Ladarius 2022 8:33pm Alcohol type hard liquor October 23, 2022 8:33pm Substance/Street Drug Use Yes October 132022 8:33pm Substance Use Treatment No October 8:33pm substance use type marijuana October 23 8:33pm Smoking Status Never smoker October 23, 2022 8:33pm Additional Data Assigned Sex Female Problems Active Problems Medical Problem Onset Date Status Abnormal vaginal bleeding Active Anemia due to blood loss Active Abdominal pain Active Inactive/Resolved Problems Medical Problem Onset Date Status Abdominal pain, RLQ Resolved Acute cervicitis Resolved Dysfunctional uterine bleeding R esolved Ovarian cyst Resolved Pelvic pain Resolved Pelvic pain Resolved Pelvic pain Resolved Functional abdominal pain syndrome Resolved Diarrhea Resolved Diarrhea Resolved Gastritis Resolved MRSA (methicillin resistant Staphylococcus aureu s) infection Resolved Abnormal vaginal bleeding Resolv ed Abnormal vaginal bleeding Resolv ed Post-operative pain Resolved Pain, dental Resolved Pain, dental Resolved Vaginal bleeding Resolved Vaginal bleeding Resolved Vaginal bleeding Resolved Iron deficiency anemia Resolved Colostomy in place Resolved History of endometriosis Resolve d Hx of endometriosis Resolved Hx of endometriosis Resolved Abdominal pain, recurrent Resolv ed Nausea & vomiting Resolved Abdominal pain Resolved Abdominal pain Resolved Abdominal pain Resolved Abdominal pain Resolved Abdominal pain Resolved Abdominal pain Resolved Endometriosis Resolved Endometriosis Resolved Constipation Resolved Vomiting Resolved Hemorrhagic cyst of left ovary R esolved Medications Medication Status Dose Units Route Directions Qty Days St art Date End Date Instructions Sertraline Active 100 MG PO DAILY October 14, 2020 12:00am Docusate Sodium Disconti nued 50 MG PO TWICE A DAY October 14, 2020 12:00am August 07, 2021 12:12p m Trazodone Active 100 MG PO BEDTIME October 14, 2020 12:00am Hydroxyzine Hcl Active 100 MG PO BEDTIME October 14, 2020 12:00am Ferrous Sulfate Disconti nued 325 MG PO DAILY 14 October 15, 2020 12:00am [facility] 2020 5:42pm Hydrocodone-A cetaminophen Disconti nued TABLET December 29, 2020 12:00am January 07, 2021 5:04pm Cefdinir Disconti nued 300 MG PO TWICE A DAY 20 [facility] [place] 2020 12:00am Sept 2020 9:07pm Tramadol Disconti nued 50 MG PO Q8H 10 [facility] [place] [facility] 2020 12:00am [facility] 2020 9:06pm Montelukast Active 10 MG PO DAILY ar y 2021 1:00am Omeprazole Disconti nued 20 MG PO DAILY y 2021 1:00am August 07, 2021 12:12p m Cephalexin Disconti nued 500 MG PO FOUR TIMES DAILY 20 y 2021 1:00am August 07, 2021 12:12p m Tramadol (Ultram) 50 mg Tablet Disconti nued 50 MG PO Q6H 7 r y 2021 1:00am August 07, 2021 12:12p m Omeprazole Active 20 MG PO DAILY September 23, 2021 12:00am Norethindrone Acetate Active 5 MG PO DAILY 2022 12:00am Tizanidine Active MG CAPSULE September 16, 2022 12:00am Sulfamethoxaz ole-Trimethop rim Disconti nued 800 TAB PO TWICE A DAY October 16, 2022 12:00am October 23, 2022 7:52pm Gabapentin Active 300 MG PO BEDTIME Aug2020 12:00am Hydrocodone-A cetaminophen Disconti nued 1 TAB PO Q6H January 02, 2021 January 07, 2021 5:04pm Ondansetron Disconti nued 4 MG PO Q6H January 02, 2021 12:00am August 07, 2021 12:12p m Famotidine-Ca Carb-Mag Hydrox (Pepcid Complete) 10-800-165 mg tablet,chewab le Disconti nued 1 TAB PO DAILY January 08, 2021 12:00am Septem 2020 9:07pm Dicyclomine Disconti nued 10 MG PO .q6 prn January 08, 2021 12:00am Septem rinku 2020 3:08pm Oxycodone Disconti nued MG CAPSULE Pending Sale To [facility] r 2020 12:00am Februa ry 2021 3:37pm Fluticasone Propion-Salme terol (Advair Hfa) 115-21 mcg/actuation HFA aerosol inhaler Active 2 INH INH DAILY [facility] 2020 12:00am Ondansetron Hcl (Zofran) 4 mg tablet Disconti nued 4 MG PO Q8H 12 [facility] 12:00am Novemb er 2020 1:01am Sulfamethoxaz ole-Trimethop rim (Bactrim Ds) 800-160 mg tablet Disconti nued 1 TAB PO TWICE A DAY 14 [facility] 12:00am Novemb er 2020 1:25pm Tizanidine Disconti nued 4 MG PO As Directed August 07, 2021 12:00am November 10, 2021 12:18p m Ondansetron Active 4 - 8 MG PO Q8H 8 August 07, 2021 12:00am Tranexamic Acid Active MG PO Novembe r 2021 12:00am tid for max 5 days Hydromorphone Active MG TABLET Ladarius e 2022 12:00am Fluticasone Propion-Salme terol (Advair Hfa) 115-21 mcg/actuation HFA aerosol inhaler Active INH October 23, 2022 12:00am Hydromorphone Active 2 MG PO EVERY 4 to 6 HOURS 10 October 24, 2022 Procedures Procedure Date Performed Status Wet Prep completed CT Abd Pel w/ Contrast September 16, 2022 11:33pm com pleted CT Abd Pel w/ Contrast October 16, 2022 12:00am co mpleted CT Abd Pel w/ Contrast October 23, 2022 8:29pm co mpleted Relevant Diagnostic Tests and/or Laboratory Data Laboratory Results Test Date/Time Result Interpretation Reference Range Result Comment Performing Site White Blood Count November 10, 2021 1:00pm 4.91 1000/mm3 4.8-10.8 [facility] [id number] [address] [address] White Blood Count 2022 8:10pm 5.41 1000/mm3 4.8-10.8 [facility] [id number] [address] [address] White Blood Count April 06, 2022 11:27am 3.71 1000/mm3 4.8-10.8 [facility] [id number] [address] [address] White Blood Count August 28, 2022 5:10pm 5.35 1000/mm3 4.8-10.8 [facility] [id number] [address] [address] White Blood Count September 17, 2022 12:25am 4.23 1000/mm3 4.8-10.8 [facility] [id number] [address] [address] White Blood Count October 16, 2022 4:04pm 4.29 1000/mm3 4.8-10.8 [facility] [id number] [address] [address] White Blood Count October 23, 2022 9:40pm 3.88 1000/mm3 4.8-10.8 [facility] [id number] [address] [address] Red Blood Count November 10, 2021 1:00pm 3.22 M/mm3 4.20-5.40 [facility] [id number] [address] [address] Red Blood Count 2022 8:10pm 4.00 M/mm3 4.20-5.40 [facility] [id number] [address] [address] Red Blood Count April 06, 2022 11:27am 3.66 M/mm3 4.20-5.40 [facility] [id number] [address] [address] Red Blood Count August 28, 2022 5:10pm 4.13 M/mm3 4.20-5.40 [facility] [id number] [address] [address] Red Blood Count September 17, 2022 12:25am 3.54 M/mm3 4.20-5.40 [facility] [id number] [address] [address] Red Blood Count October 16, 2022 4:04pm 4.38 M/mm3 4.20-5.40 [facility] [id number] [address] [address] Red Blood Count October 23, 2022 9:40pm 3.77 M/mm3 4.20-5.40 [facility] [id number] [address] [address] Hemoglobin November 10, 2021 1:00pm 8.4 g/dL 12.0-16.0 [facility] [id number] [address] [address] Hemoglobin 2022 8:10pm 8.6 g/dL 12.0-16.0 [facility] [id number] [address] [address] Hemoglobin April 06, 2022 11:27am 8.5 g/dL 12.0-16.0 [facility] [id number] [address] [address] Hemoglobin August 28, 2022 5:10pm 9.2 g/dL 12.0-16.0 [facility] [id number] [address] [address] Hemoglobin September 17, 2022 12:25am 7.7 g/dL 12.0-16.0 [facility] [id number] [address] [address] Hemoglobin October 16, 2022 4:04pm 9.9 g/dL 12.0-16.0 [facility] [id number] [address] [address] Hemoglobin October 24, 2022 1:00am 7.6 g/dL 12.0-16.0 [facility] [id number] [address] [address] Hematocrit November 10, 2021 1:00pm 26.8 % 37-47 [facility] [id number] [address] [address] Hematocrit 2022 8:10pm 29.3 % 37-47 MA[facility] [id number] [address] [address] Hematocrit April 06, 2022 11:27am 27.6 % 37-47 [facility] [id number] [address] [address] Hematocrit August 28, 2022 5:10pm 30.8 % 37-47 MA[facility] [id number] [address] [address] Hematocrit September 17, 2022 12:25am 25.8 % 37-47 MA[facility] [id number] [address] [address] Hematocrit October 16, 2022 4:04pm 32.6 % 37-47 [facility] [id number] [address] [address] Hematocrit October 24, 2022 1:00am 25.6 % 37-47 [facility] [id number] [address] [address] Mean Corpuscular Volume November 10, 2021 1:00pm 83.2 fL 81.0-99.0 [facility] [id number] [address] [address] Mean Corpuscular Volume 2022 8:10pm 73.3 fL 81.0-99.0 [facility] [id number] [address] [address] Mean Corpuscular Volume April 06, 2022 11:27am 75.4 fL 81.0-99.0 [facility] [id number] [address] [address] Mean Corpuscular Volume August 28, 2022 5:10pm 74.6 fL 81.0-99.0 [facility] [id number] [address] [address] Mean Corpuscular Volume September 17, 2022 12:25am 72.9 fL 81.0-99.0 [facility] [id number] [address] [address] Mean Corpuscular Volume October 16, 2022 4:04pm 74.4 fL 81.0-99.0 [facility] [id number] [address] [address] Mean Corpuscular Volume October 23, 2022 9:40pm 76.1 fL 81.0-99.0 [facility] [id number] [address] [address] Mean Corpuscular Hemoglobin November 10, 2021 1:00pm 26.1 pg 27-31 MA[facility] [id number] [address] [address] Mean Corpuscular Hemoglobin 2022 8:10pm 21.5 pg 27-31 [facility] [id number] [address] [address] Mean Corpuscular Hemoglobin April 06, 2022 11:27am 23.2 pg 27-31 [facility] [id number] [address] [address] Mean Corpuscular Hemoglobin August 28, 2022 5:10pm 22.3 pg 27-31 [facility] [id number] [address] [address] Mean Corpuscular Hemoglobin September 17, 2022 12:25am 21.8 pg 27-31 [facility] [id number] [address] [address] Mean Corpuscular Hemoglobin October 16, 2022 4:04pm 22.6 pg 27-31 [facility] [id number] [address] [address] Mean Corpuscular Hemoglobin October 23, 2022 9:40pm 22.8 pg 27-31 [facility] [id number] [address] [address] Mean Corpuscular Hemoglobin Concent November 10, 2021 1:00pm 31.3 g/dL 33-37 [facility] [id number] [address] [address] Mean Corpuscular Hemoglobin Concent 2022 8:10pm 29.4 g/dL 33-37 [facility] [id number] [address] [address] Mean Corpuscular Hemoglobin Concent April 06, 2022 11:27am 30.8 g/dL 33-37 [facility] [id number] [address] [address] Mean Corpuscular Hemoglobin Concent August 28, 2022 5:10pm 29.9 g/dL 33-37 MA[facility] [id number] [address] [address] Mean Corpuscular Hemoglobin Concent September 17, 2022 12:25am 29.8 g/dL 33-37 MA[facility] [id number] [address] [address] Mean Corpuscular Hemoglobin Concent October 16, 2022 4:04pm 30.4 g/dL 33-37 MA[facility] [id number] [address] [address] Mean Corpuscular Hemoglobin Concent October 23, 2022 9:40pm 30.0 g/dL 33-37 MA[facility] [id number] [address] [address] Red Cell Distribution Width November 10, 2021 1:00pm 14.4 % 11.5-14.5 [facility] [id number] [address] [address] Red Cell Distribution Width 2022 8:10pm 15.2 % 11.5-14.5 [facility] [id number] [address] [address] Red Cell Distribution Width April 06, 2022 11:27am 16.4 % 11.5-14.5 [facility] [id number] [address] [address] Red Cell Distribution Width August 28, 2022 5:10pm 14.2 % 11.5-14.5 [facility] [id number] [address] [address] Red Cell Distribution Width September 17, 2022 12:25am 14.9 % 11.5-14.5 [facility] [id number] [address] [address] Red Cell Distribution Width October 16, 2022 4:04pm 18.1 % 11.5-14.5 [facility] [id number] [address] [address] Red Cell Distribution Width October 23, 2022 9:40pm 17.5 % 11.5-14.5 [facility] [id number] [address] [address] Platelet Count November 10, 2021 1:00pm 282 1000/mm3 140-440 MA[facility] [id number] [address] [address] Platelet Count 2022 8:10pm 217 1000/mm3 140-440 MA[facility] [id number] [address] [address] Platelet Count April 06, 2022 11:27am 174 1000/mm3 140-440 [facility] [id number] [address] [address] Platelet Count August 28, 2022 5:10pm 216 1000/mm3 140-440 MA[facility] [id number] [address] [address] Platelet Count September 17, 2022 12:25am 198 1000/mm3 140-440 [facility] [id number] [address] [address] Platelet Count October 16, 2022 4:04pm 291 1000/mm3 140-440 MA[facility] [id number] [address] [address] Platelet Count October 23, 2022 9:40pm 244 1000/mm3 140-440 MA[facility] [id number] [address] [address] Mean Platelet Volume November 10, 2021 1:00pm 10.5 fL 7.4-10.4 [facility] [id number] [address] [address] Mean Platelet Volume 2022 8:10pm 12.9 fL 7.4-10.4 MA[facility] [id number] [address] [address] Mean Platelet Volume August 28, 2022 5:10pm 10.4 fL 7.4-10.4 MA[facility] [id number] [address] [address] Mean Platelet Volume September 17, 2022 12:25am 11.6 fL 7.4-10.4 MA[facility] [id number] [address] [address] Mean Platelet Volume October 16, 2022 4:04pm 10.7 fL 7.4-10.4 MA[facility] [id number] [address] [address] Mean Platelet Volume October 23, 2022 9:40pm 11.2 fL 7.4-10.4 [facility] [id number] [address] [address] Neutrophils (%) (Auto) November 10, 2021 1:00pm 67.8 % 40.0-72.0 [facility] [id number] [address] [address] Neutrophils (%) (Auto) 2022 8:10pm 58.0 % 40.0-72.0 MA[facility] [id number] [address] [address] Neutrophils (%) (Auto) April 06, 2022 11:27am 55.7 % 40.0-72.0 MA[facility] [id number] [address] [address] Neutrophils (%) (Auto) August 28, 2022 5:10pm 68.4 % 40.0-72.0 MA[facility] [id number] [address] [address] Neutrophils (%) (Auto) September 17, 2022 12:25am 57.7 % 40.0-72.0 MA[facility] [id number] [address] [address] Neutrophils (%) (Auto) October 16, 2022 4:04pm 56.8 % 40.0-72.0 [facility] [id number] [address] [address] Neutrophils (%) (Auto) October 23, 2022 9:40pm 56.1 % 40.0-72.0 MA[facility] [id number] [address] [address] Lymphocytes (%) (Auto) November 10, 2021 1:00pm 23.4 % 17-45 MAIN [facility] [id number] [address] [address] Lymphocytes (%) (Auto) 2022 8:10pm 31.4 % 17-45 MA[facility] [id number] [address] [address] Lymphocytes (%) (Auto) April 06, 2022 11:27am 34.0 % 17-45 MAIN [facility] [id number] [address] [address] Lymphocytes (%) (Auto) August 28, 2022 5:10pm 24.1 % 17-45 MAIN [facility] [id number] [address] [address] Lymphocytes (%) (Auto) September 17, 2022 12:25am 32.4 % 17-45 MAIN [facility] [id number] [address] [address] Lymphocytes (%) (Auto) October 16, 2022 4:04pm 35.0 % 17-45 MA[facility] [id number] [address] [address] Lymphocytes (%) (Auto) October 23, 2022 9:40pm 32.0 % 17-45 MA[facility] [id number] [address] [address] Monocytes (%) (Auto) November 10, 2021 1:00pm 4.7 % 3-11 MA[facility] [id number] [address] [address] Monocytes (%) (Auto) 2022 8:10pm 7.6 % 3-11 MA[facility] [id number] [address] [address] Monocytes (%) (Auto) April 06, 2022 11:27am 6.5 % 3-11 MA[facility] [id number] [address] [address] Monocytes (%) (Auto) August 28, 2022 5:10pm 5.0 % 3-11 MA[facility] [id number] [address] [address] Monocytes (%) (Auto) September 17, 2022 12:25am 6.9 % 3-11 MA[facility] [id number] [address] [address] Monocytes (%) (Auto) October 16, 2022 4:04pm 5.6 % 3-11 [facility] [id number] [address] [address] Monocytes (%) (Auto) October 23, 2022 9:40pm 7.5 % 3-11 [facility] [id number] [address] [address] Eosinophils (%) (Auto) November 10, 2021 1:00pm 3.1 % 0-3 [facility] [id number] [address] [address] Eosinophils (%) (Auto) 2022 8:10pm 1.7 % 0-3 MA[facility] [id number] [address] [address] Eosinophils (%) (Auto) April 06, 2022 11:27am 2.4 % 0-3 [facility] [id number] [address] [address] Eosinophils (%) (Auto) August 28, 2022 5:10pm 1.5 % 0-3 [facility] [id number] [address] [address] Eosinophils (%) (Auto) September 17, 2022 12:25am 1.9 % 0-3 [facility] [id number] [address] [address] Eosinophils (%) (Auto) October 16, 2022 4:04pm 1.2 % 0-3 [facility] [id number] [address] [address] Eosinophils (%) (Auto) October 23, 2022 9:40pm 3.1 % 0-3 [facility] [id number] [address] [address] Basophils (%) (Auto) November 10, 2021 1:00pm 0.6 % 0-1 [facility] [id number] [address] [address] Basophils (%) (Auto) 2022 8:10pm 1.1 % 0-1 MA[facility] [id number] [address] [address] Basophils (%) (Auto) April 06, 2022 11:27am 1.1 % 0-1 [facility] [id number] [address] [address] Basophils (%) (Auto) August 28, 2022 5:10pm 0.6 % 0-1 [facility] [id number] [address] [address] Basophils (%) (Auto) September 17, 2022 12:25am 0.9 % 0-1 [facility] [id number] [address] [address] Basophils (%) (Auto) October 16, 2022 4:04pm 1.2 % 0-1 [facility] [id number] [address] [address] Basophils (%) (Auto) October 23, 2022 9:40pm 1.0 % 0-1 [facility] [id number] [address] [address] Immature Granulocyte % (Auto) November 10, 2021 1:00pm 0.4 % 0-1 [facility] [id number] [address] [address] Immature Granulocyte % (Auto) 2022 8:10pm 0.2 % 0-1 [facility] [id number] [address] [address] Immature Granulocyte % (Auto) April 06, 2022 11:27am 0.3 % 0-1 [facility] [id number] [address] [address] Immature Granulocyte % (Auto) August 28, 2022 5:10pm 0.4 % 0-1 [facility] [id number] [address] [address] Immature Granulocyte % (Auto) September 17, 2022 12:25am 0.2 % 0-1 [facility] [id number] [address] [address] Immature Granulocyte % (Auto) October 16, 2022 4:04pm 0.2 % 0-1 [facility] [id number] [address] [address] Immature Granulocyte % (Auto) October 23, 2022 9:40pm 0.3 % 0-1 [facility] [id number] [address] [address] Neutrophils # (Auto) November 10, 2021 1:00pm 3.33 1000/mm3 1.4-6.5 [facility] [id number] [address] [address] Neutrophils # (Auto) 2022 8:10pm 3.14 1000/mm3 1.4-6.5 [facility] [id number] [address] [address] Neutrophils # (Auto) April 06, 2022 11:27am 2.07 1000/mm3 1.4-6.5 [facility] [id number] [address] [address] Neutrophils # (Auto) August 28, 2022 5:10pm 3.66 1000/mm3 1.4-6.5 [facility] [id number] [address] [address] Neutrophils # (Auto) September 17, 2022 12:25am 2.44 1000/mm3 1.4-6.5 [facility] [id number] [address] [address] Neutrophils # (Auto) October 16, 2022 4:04pm 2.44 1000/mm3 1.4-6.5 [facility] [id number] [address] [address] Neutrophils # (Auto) October 23, 2022 9:40pm 2.18 1000/mm3 1.4-6.5 [facility] [id number] [address] [address] Lymphocytes # (Auto) November 10, 2021 1:00pm 1.15 1000/mm3 1.2-3.4 [facility] [id number] [address] [address] Lymphocytes # (Auto) 2022 8:10pm 1.70 1000/mm3 1.2-3.4 [facility] [id number] [address] [address] Lymphocytes # (Auto) April 06, 2022 11:27am 1.26 1000/mm3 1.2-3.4 [facility] [id number] [address] [address] Lymphocytes # (Auto) August 28, 2022 5:10pm 1.29 1000/mm3 1.2-3.4 [facility] [id number] [address] [address] Lymphocytes # (Auto) September 17, 2022 12:25am 1.37 1000/mm3 1.2-3.4 [facility] [id number] [address] [address] Lymphocytes # (Auto) October 16, 2022 4:04pm 1.50 1000/mm3 1.2-3.4 [facility] [id number] [address] [address] Lymphocytes # (Auto) October 23, 2022 9:40pm 1.24 1000/mm3 1.2-3.4 [facility] [id number] [address] [address] Monocytes # (Auto) November 10, 2021 1:00pm 0.23 1000/mm3 0.0-0.8 [facility] [id number] [address] [address] Monocytes # (Auto) 2022 8:10pm 0.41 1000/mm3 0.0-0.8 [facility] [id number] [address] [address] Monocytes # (Auto) April 06, 2022 11:27am 0.24 1000/mm3 0.0-0.8 [facility] [id number] [address] [address] Monocytes # (Auto) August 28, 2022 5:10pm 0.27 1000/mm3 0.0-0.8 [facility] [id number] [address] [address] Monocytes # (Auto) September 17, 2022 12:25am 0.29 1000/mm3 0.0-0.8 [facility] [id number] [address] [address] Monocytes # (Auto) October 16, 2022 4:04pm 0.24 1000/mm3 0.0-0.8 [facility] [id number] [address] [address] Monocytes # (Auto) October 23, 2022 9:40pm 0.29 1000/mm3 0.0-0.8 [facility] [id number] [address] [address] Eosinophils # (Auto) November 10, 2021 1:00pm 0.15 1000/mm3 0.0-0.7 [facility] [id number] [address] [address] Eosinophils # (Auto) 2022 8:10pm 0.09 1000/mm3 0.0-0.7 [facility] [id number] [address] [address] Eosinophils # (Auto) April 06, 2022 11:27am 0.09 1000/mm3 0.0-0.7 [facility] [id number] [address] [address] Eosinophils # (Auto) August 28, 2022 5:10pm 0.08 1000/mm3 0.0-0.7 [facility] [id number] [address] [address] Eosinophils # (Auto) September 17, 2022 12:25am 0.08 1000/mm3 0.0-0.7 [facility] [id number] [address] [address] Eosinophils # (Auto) October 16, 2022 4:04pm 0.05 1000/mm3 0.0-0.7 [facility] [id number] [address] [address] Eosinophils # (Auto) October 23, 2022 9:40pm 0.12 1000/mm3 0.0-0.7 [facility] [id number] [address] [address] Basophils # (Auto) November 10, 2021 1:00pm 0.03 1000/mm3 0.0-0.1 [facility] [id number] [address] [address] Basophils # (Auto) 2022 8:10pm 0.06 1000/mm3 0.0-0.1 [facility] [id number] [address] [address] Basophils # (Auto) April 06, 2022 11:27am 0.04 1000/mm3 0.0-0.1 [facility] [id number] [address] [address] Basophils # (Auto) August 28, 2022 5:10pm 0.03 1000/mm3 0.0-0.1 [facility] [id number] [address] [address] Basophils # (Auto) September 17, 2022 12:25am 0.04 1000/mm3 0.0-0.1 [facility] [id number] [address] [address] Basophils # (Auto) October 16, 2022 4:04pm 0.05 1000/mm3 0.0-0.1 [facility] [id number] [address] [address] Basophils # (Auto) October 23, 2022 9:40pm 0.04 1000/mm3 0.0-0.1 [facility] [id number] [address] [address] Absolute Immature Granulocyte (auto November 10, 2021 1:00pm 0.0 0-1 [facility] [id number] [address] [address] Absolute Immature Granulocyte (auto 2022 8:10pm 0.0 0-1 [facility] [id number] [address] [address] Absolute Immature Granulocyte (auto April 06, 2022 11:27am 0.0 0-1 [facility] [id number] [address] [address] Absolute Immature Granulocyte (auto August 28, 2022 5:10pm 0.0 0-1 [facility] [id number] [address] [address] Absolute Immature Granulocyte (auto September 17, 2022 12:25am 0.0 0-1 [facility] [id number] [address] [address] Absolute Immature Granulocyte (auto October 16, 2022 4:04pm 0.0 0-1 [facility] [id number] [address] [address] Absolute Immature Granulocyte (auto October 23, 2022 9:40pm 0.0 0-1 [facility] [id number] [address] [address] Differential Method November 10, 2021 1:00pm Automated MAIN LAB [id number] [address] [address] Differential Method 2022 8:10pm Automated MAIN LAB [id number] [address] [address] Differential Method April 06, 2022 11:27am Automated MAIN LAB [id number] [address] [address] Differential Method August 28, 2022 5:10pm Automated MAIN LAB [id number] [address] [address] Differential Method September 17, 2022 12:25am Automated MAIN LAB [id number] [address] [address] Differential Method October 16, 2022 4:04pm Automated MA[facility] LAB [id number] [address] [address] Differential Method October 23, 2022 9:40pm Automated MAIN LAB [id number] [address] [address] Erythrocyte Sedimentatio n Rate August 28, 2022 5:10pm 10 mm/hr 0-15 MAIN LAB [id number] [address] [address] Serum Test, Qualitative April 06, 2022 11:27am Negative NEGATIVE MAIN LAB [id number] [address] [address] Sodium Level November 10, 2021 1:00pm 139 mmol/L 137-145 MAIN LAB [id number] [address] [address] Sodium Level 2022 8:10pm 140 mmol/L 137-145 MAIN LAB [id number] [address] [address] Sodium Level April 06, 2022 11:27am 142 mmol/L 137-145 MAIN LAB [id number] [address] [address] Potassium Level November 10, 2021 1:00pm 4.2 mmol/L 3.6-5.0 MAIN LAB [id number] [address] [address] Potassium Level 2022 8:10pm 3.7 mmol/L 3.6-5.0 MAIN LAB [id number] [address] [address] Potassium Level April 06, 2022 11:27am 3.7 mmol/L 3.6-5.0 MAIN LAB [id number] [address] [address] Chloride Level November 10, 2021 1:00pm 104 mmol/L 98-107 MAIN LAB [id number] [address] [address] Chloride Level 2022 8:10pm 102 mmol/L 98-107 MAIN LAB [id number] [address] [address] Chloride Level April 06, 2022 11:27am 106 mmol/L 98-107 MAIN LAB [id number] [address] [address] Carbon Dioxide Level November 10, 2021 1:00pm 24 mmol/L 22-30 MAIN LAB [id number] [address] [address] Carbon Dioxide Level 2022 8:10pm 30 mmol/L 22-30 MAIN LAB [id number] [address] [address] Carbon Dioxide Level April 06, 2022 11:27am 27 mmol/L 22-30 MAIN LAB [id number] [address] [address] Anion Gap November 10, 2021 1:00pm 11 7-16 MAIN LAB [id number] [address] [address] Anion Gap 2022 8:10pm 8 7-16 MAIN LAB [id number] [address] [address] Anion Gap April 06, 2022 11:27am 9 7-16 MAIN LAB [id number] [address] [address] Blood Urea Nitrogen November 10, 2021 1:00pm 7 mg/dL 7-17 MAIN LAB [id number] [address] [address] Blood Urea Nitrogen 2022 8:10pm 8 mg/dL 7-17 MAIN LAB [id number] [address] [address] Blood Urea Nitrogen April 06, 2022 11:27am 10 mg/dL 7-17 MAIN LAB [id number] [address] [address] Creatinine November 10, 2021 1:00pm 0.76 mg/dL 0.52-1.04 MAIN LAB [id number] [address] [address] Creatinine 2022 8:10pm 0.66 mg/dL 0.52-1.04 MAIN LAB [id number] [address] [address] Creatinine April 06, 2022 11:27am 0.73 mg/dL 0.52-1.04 MAIN LAB [id number] [address] [address] Glomerular Filtration Rate Calc November 10, 2021 1:00pm > 60 mL/min >60.0 MAIN LAB [id number] [address] [address] Glomerular Filtration Rate Calc 2022 8:10pm > 60 mL/min >60.0 MAIN LAB [id number] [address] [address] Glomerular Filtration Rate Calc April 06, 2022 11:27am > 60 mL/min >60.0 MAIN LAB [id number] [address] [address] Glucose Level November 10, 2021 1:00pm 95 mg/dL 70-100 MAIN LAB [id number] [address] [address] Glucose Level 2022 8:10pm 97 mg/dL 70-100 MAIN LAB [id number] [address] [address] Glucose Level April 06, 2022 11:27am 90 mg/dL 70-100 MAIN LAB [id number] [address] [address] Calcium Level November 10, 2021 1:00pm 9.6 mg/dL 8.4-10.2 MAIN LAB [id number] [address] [address] Calcium Level 2022 8:10pm 9.2 mg/dL 8.4-10.2 MAIN LAB [id number] [address] [address] Calcium Level April 06, 2022 11:27am 8.9 mg/dL 8.4-10.2 MAIN LAB [id number] [address] [address] Calcium Adjusted for Albumin April 06, 2022 11:27am 8.7 mg/dL 8.4-10.2 MAIN LAB [id number] [address] [address] Total Bilirubin April 06, 2022 11:27am 0.5 mg/dL 0.2-1.3 MAIN LAB [id number] [address] [address] Aspartate Amino Transf (AST/SGOT) April 06, 2022 11:27am 46 U/L 14-36 MAIN LAB [id number] [address] [address] Alanine Aminotransfe rase (ALT/SGPT) April 06, 2022 11:27am 35 U/L <35 MAIN LAB [id number] [address] [address] Total Protein April 06, 2022 11:27am 7.4 g/dL 6.3-8.2 MAIN LAB [id number] [address] [address] Albumin April 06, 2022 11:27am 4.6 g/dL 3.5-5.0 MAIN LAB [id number] [address] [address] Alkaline Phosphatase April 06, 2022 11:27am 52 U/L 38-126 MAIN LAB [id number] [address] [address] Lipase April 06, 2022 11:27am 37 U/L 23-300 MAIN LAB [id number] [address] [address] Sodium Level August 28, 2022 4:05pm 137 mmol/L 137-145 MAIN LAB [id number] [address] [address] Sodium Level September 17, 2022 12:25am 140 mmol/L 137-145 MAIN LAB [id number] [address] [address] Sodium Level October 16, 2022 4:04pm 139 mmol/L 137-145 MAIN LAB [id number] [address] [address] Sodium Level October 23, 2022 9:40pm 141 mmol/L 137-145 MAIN LAB [id number] [address] [address] Potassium Level August 28, 2022 4:05pm 3.9 mmol/L 3.6-5.0 MAIN LAB [id number] [address] [address] Potassium Level September 17, 2022 12:25am 3.9 mmol/L 3.6-5.0 MAIN LAB [id number] [address] [address] Potassium Level October 16, 2022 4:04pm 3.4 mmol/L 3.6-5.0 MAIN LAB [id number] [address] [address] Potassium Level October 23, 2022 9:40pm 3.7 mmol/L 3.6-5.0 MAIN LAB [id number] [address] [address] Chloride Level August 28, 2022 4:05pm 104 mmol/L 98-107 MAIN LAB [id number] [address] [address] Chloride Level September 17, 2022 12:25am 106 mmol/L 98-107 MAIN LAB [id number] [address] [address] Chloride Level October 16, 2022 4:04pm 101 mmol/L 98-107 MAIN LAB [id number] [address] [address] Chloride Level October 23, 2022 9:40pm 105 mmol/L 98-107 MAIN LAB [id number] [address] [address] Carbon Dioxide Level August 28, 2022 4:05pm 22 mmol/L 22-30 MAIN LAB [id number] [address] [address] Carbon Dioxide Level September 17, 2022 12:25am 23 mmol/L 22-30 MAIN LAB [id number] [address] [address] Carbon Dioxide Level October 16, 2022 4:04pm 23 mmol/L 22-30 MAIN LAB [id number] [address] [address] Carbon Dioxide Level October 23, 2022 9:40pm 27 mmol/L 22-30 MAIN LAB [id number] [address] [address] Anion Gap August 28, 2022 4:05pm 11 7-16 MAIN LAB [id number] [address] [address] Anion Gap September 17, 2022 12:25am 11 7-16 MAIN LAB [id number] [address] [address] Anion Gap October 16, 2022 4:04pm 15 - MAIN LAB [id number] [address] [address] Anion Gap October 23, 2022 9:40pm 9 7- MAIN LAB [id number] [address] [address] Blood Urea Nitrogen August 28, 2022 4:05pm 10 mg/dL 7-17 MAIN LAB [id number] [address] [address] Blood Urea Nitrogen September 17, 2022 12:25am 10 mg/dL 7-17 MAIN LAB [id number] [address] [address] Blood Urea Nitrogen October 16, 2022 4:04pm 9 mg/dL 7- MAIN LAB [id number] [address] [address] Blood Urea Nitrogen October 23, 2022 9:40pm 8 mg/dL 7-17 MAIN LAB [id number] [address] [address] Creatinine August 28, 2022 4:05pm 0.58 mg/dL 0.52-1.04 MAIN LAB [id number] [address] [address] Creatinine September 17, 2022 12:25am 0.60 mg/dL 0.52-1.04 MAIN LAB [id number] [address] [address] Creatinine October 16, 2022 4:04pm 0.90 mg/dL 0.52-1.04 MAIN LAB [id number] [address] [address] Creatinine October 23, 2022 9:40pm 0.80 mg/dL 0.52-1.04 MAIN LAB [id number] [address] [address] Glomerular Filtration Rate Calc August 28, 2022 4:05pm > 60 mL/min >60.0 MAIN LAB [id number] [address] [address] Glomerular Filtration Rate Calc September 17, 2022 12:25am 129 mL/min >60.0 MAIN LAB [id number] [address] [address] Glomerular Filtration Rate Calc October 16, 2022 4:04pm 92 mL/min >60.0 MAIN LAB [id number] [address] [address] Glomerular Filtration Rate Calc October 23, 2022 9:40pm 106 mL/min >60.0 MAIN LAB [id number] [address] [address] Glucose Level August 28, 2022 4:05pm 83 mg/dL 70-100 MAIN LAB [id number] [address] [address] Glucose Level September 17, 2022 12:25am 91 mg/dL 70-100 MAIN LAB [id number] [address] [address] Glucose Level October 16, 2022 4:04pm 92 mg/dL 70-100 MAIN LAB [id number] [address] [address] Glucose Level October 23, 2022 9:40pm 93 mg/dL 70-100 MAIN LAB [id number] [address] [address] Calcium Level August 28, 2022 4:05pm 9.1 mg/dL 8.4-10.2 MAIN LAB [id number] [address] [address] Calcium Level September 17, 2022 12:25am 8.9 mg/dL 8.4-10.2 MAIN LAB [id number] [address] [address] Calcium Level October 16, 2022 4:04pm 9.9 mg/dL 8.4-10.2 MAIN LAB [id number] [address] [address] Calcium Level October 23, 2022 9:40pm 8.6 mg/dL 8.4-10.2 MAIN LAB [id number] [address] [address] Calcium Adjusted for Albumin August 28, 2022 4:05pm 8.9 mg/dL 8.4-10.2 MAIN LAB [id number] [address] [address] Calcium Adjusted for Albumin September 17, 2022 12:25am 8.8 mg/dL 8.4-10.2 MAIN LAB [id number] [address] [address] Calcium Adjusted for Albumin October 16, 2022 4:04pm 9.2 mg/dL 8.4-10.2 MAIN LAB [id number] [address] [address] Albumin August 28, 2022 4:05pm 4.5 g/dL 3.5-5.0 MAIN LAB [id number] [address] [address] Albumin September 17, 2022 12:25am 4.4 g/dL 3.5-5.0 MAIN LAB [id number] [address] [address] Albumin October 16, 2022 4:04pm 5.2 g/dL 3.5-5.0 MAIN LAB [id number] [address] [address] Total Protein August 28, 2022 4:05pm 7.3 g/dL 6.3-8.2 MAIN LAB [id number] [address] [address] Total Protein September 17, 2022 12:25am 7.0 g/dL 6.3-8.2 MAIN LAB [id number] [address] [address] Total Protein October 16, 2022 4:04pm 9.6 g/dL 6.3-8.2 MAIN LAB [id number] [address] [address] Alkaline Phosphatase August 28, 2022 4:05pm 56 U/L 38-126 MAIN LAB [id number] [address] [address] Alkaline Phosphatase September 17, 2022 12:25am 41 U/L 38-126 MAIN LAB [id number] [address] [address] Alkaline Phosphatase October 16, 2022 4:04pm 67 U/L 38-126 MAIN LAB [id number] [address] [address] Alanine Aminotransfe rase (ALT/SGPT) August 28, 2022 4:05pm 33 U/L <35 Per Ortho Clinical Diagnostic's notification dated July 18, 2022, note that ascorbic acid concentrations of 100 mg/dL may produce a negative bias greater than 12.5%. MAIN LAB [id number] [address] [address] Alanine Aminotransfe rase (ALT/SGPT) September 17, 2022 12:25am 23 U/L <35 Per Ortho Clinical Diagnostic's notification dated July 18, 2022, note that ascorbic acid concentrations of 100 mg/dL may produce a negative bias greater than 12.5%. MAIN LAB [id number] [address] [address] Alanine Aminotransfe rase (ALT/SGPT) October 16, 2022 4:04pm 38 U/L <35 Per Ortho Clinical Diagnostic's notification dated July 18, 2022, note that ascorbic acid concentrations of 100 mg/dL may produce a negative bias greater than 12.5%. MAIN LAB [id number] [address] [address] Aspartate Amino Transf (AST/SGOT) August 28, 2022 4:05pm 36 U/L 14-36 MAIN LAB [id number] [address] [address] Aspartate Amino Transf (AST/SGOT) September 17, 2022 12:25am 39 U/L 14-36 MAIN LAB [id number] [address] [address] Aspartate Amino Transf (AST/SGOT) October 16, 2022 4:04pm 36 U/L 14-36 MAIN LAB [id number] [address] [address] Total Bilirubin August 28, 2022 4:05pm 0.4 mg/dL 0.2-1.3 MAIN LAB [id number] [address] [address] Total Bilirubin September 17, 2022 12:25am 0.3 mg/dL 0.2-1.3 MAIN LAB [id number] [address] [address] Total Bilirubin October 16, 2022 4:04pm 0.6 mg/dL 0.2-1.3 MAIN LAB [id number] [address] [address] Lipase September 17, 2022 12:25am 43 U/L 23-300 MAIN LAB [id number] [address] [address] Lactic Acid Level October 16, 2022 4:04pm 1.0 mmol/L 0.7-2.1 MAIN LAB [id number] [address] [address] Lactic Acid Level October 23, 2022 9:40pm 1.2 mmol/L 0.7-2.1 MAIN LAB [id number] [address] [address] C-Reactive Protein August 28, 2022 4:05pm 6.0 mg/L 5-10 MAIN LAB [id number] [address] [address] C-Reactive Protein October 16, 2022 4:04pm 8.2 mg/L 5-10 MAIN LAB [id number] [address] [address] Chlamydia trachomatis RNA August 28, 2022 7:50pm Negative Negative [facility] [id number] Neisseria gonorrhoeae RNA August 28, 2022 7:50pm Negative Negative [facility]/GC SOURCES: ENDOCERVICSourc e:CERVIXTest performed or referred by[address] [place] [address] [facility] [id number] Microbiology Results Procedure Source Result Collection Date/Time Result Date/Time Result Comment Performing Site Wet Prep Vaginal August 28, 2022 8:16pm MAIN LAB [id number] [address] [address] Diagnostic Imaging Reports Author Stevo Douglass [facility] October 23, 2022 11:48pm Report Date/Time October 23, 2022 11:4 8pm [facility] CAT SCAN REPORT PATIENT NAME: EDUARDO PAYAN [id number] DATE OF : 2000 ATTENDING/ER PHYSICIAN: ER/ATTENDING PHYSICIAN: Fahad Morejon MD PRIMARY CARE PHYS: Not Given ADMITTING PHYSICIAN: CONSULTING PHYSICIAN: PROCEDURE DATE: 10/23/22 REPORT STATUS: Signed DICTATING PHYSICIAN: Stevo Douglass MD REASON FOR EXAM: vag rect fistula with lower abd pain and bleeding PROCEDURE INFORMATION: Exam: CT Abdomen And Pelvis With Contrast Exam date and time: 10/23/2022 11:07 PM Age: 22 years old Clinical indication: Prior surgery; Surgery date: 6+ months; Surgery type: Laprotomy. Appendectomy. Colostomy; Patient HX: PT has a rectal-vaginal fistula and is going to have surgery on Monday 11am at [facility]. PT C/O heavy vaginal bleeding since yesterday morning. PT HX of sepsis from fistula. PT sent in for eval. PT has cholostomy. ; Additional info: Vag rect fistula with lower abd pain and bleeding TECHNIQUE: Imaging protocol: Computed tomography of the abdomen and pelvis with contrast. Radiation optimization: All CT scans at this facility use at least one of these dose optimization techniques: automated exposure control; mA and/or kV adjustment per patient size (includes targeted exams where dose is matched to clinical indication); or iterative reconstruction. Contrast material: OMNIPAQUE 350; Contrast volume: 100 ml; Contrast route: INTRAVENOUS (IV); REPORTING DATA: Count of CT and Cardiac NM exams in prior 12 months: This patient has received 2 known CTs and 0 known cardiac nuclear medicine studies in the 12 months prior to the current study. COMPARISON: CT Abd Pel w/ Contrast 10/16/2022 6:57 PM FINDINGS: Lungs: Lung bases are clear. Liver: Unremarkable. No mass. Gallbladder and bile ducts: Unremarkable. No calcified stones. No ductal dilation. Pancreas: Unremarkable. No ductal dilation. Spleen: Unremarkable. No splenomegaly. Adrenal glands: Normal. No mass. Kidneys and ureters: Previously noted 3 mm hypervascular rounded structure within the left renal midpole medullary region is stable to prior, nonspecific. Otherwise symmetric renal enhancement without mass. No hydronephrosis. Ureters are normal in course and caliber. Stomach and bowel: No evidence of bowel obstruction. Postsurgical change of prior partial left hemicolectomy with left lower quadrant colostomy, rectal stump noted within the posterior pelvis. No focal bowel wall thickening. Appendix: Surgically absent. Intraperitoneal space: No free fluid in the abdomen or pelvis. No free air. Vasculature: No abdominal aortic aneurysm or dissection. Lymph nodes: No pathologically enlarged lymph nodes. Urinary bladder: Bladder decompressed limiting evaluation. Reproductive: Punctate focus of air within the vagina may be related to reported rectovaginal fistula but nonspecific. Unremarkable CT appearance of the uterus. No discrete or dominant adnexal mass. Bones/joints: Unremarkable. No acute osseous finding. Soft tissues: No focal abnormality. IMPRESSION: 1. No acute CT finding of the abdomen or pelvis. 2. Additional nonacute findings as discussed. Electronically Signed By : Stevo Douglass MD dd: 10/23/[id number]/[id number]/222347 Vital Signs Vital Reading Result Reference Range Collection Date/Time Weight 77.11 kg November 10, 2021 11:44am Body Temperature 98.8 [degF] 97.6-99.6 November 10, 2021 11:44am Heart Rate 78 /min 60-100 November 10, 2021 5:51pm Respiratory rate 18 /min 12-24 November 10, 2021 5:51pm Oxygen saturation by Pulse oximetry 96 % 95-100 November 10, 2021 5:51 pm BP Systolic 102 mm[Hg] 100-140 November 10, 2021 5:51pm BP Diastolic 55 mm[Hg] 50-85 November 10, 2021 5:51pm Weight 79.37 kg January 10 6:06pm Body Temperature 98.0 [degF] 97.6-99.6 December 6:06pm Heart Rate 79 /min 60-100 January 10 9:52pm Respiratory rate 16 /min -December 9:52pm Oxygen saturation by Pulse oximetry 99 % 95-100 2022 9: 52pm BP Systolic 119 mm[Hg] 100-140 January 10 9:52pm BP Diastolic 53 mm[Hg] 50-85 January 10 9:52pm Weight 74.84 kg February 20 2:56pm Body Temperature 97.8 [degF] 97.6-99.6 February 2:56pm Heart Rate 68 /min 60-100 February 20 2:56pm Respiratory rate 16 /min -February 2:56pm Oxygen saturation by Pulse oximetry 97 % 95-100 February 20, 2022 2: 56pm BP Systolic 105 mm[Hg] 100-140 February 20 2:56pm BP Diastolic 44 mm[Hg] 50-85 February 20 2:56pm Height 66 [in_i] March 19, 2 022 2:48pm Weight 74.84 kg March 19, 2 022 2:48pm Body Temperature 98.5 [degF] 97.6-99.6 March 2:48pm Heart Rate 98 /min 60-100 March 19, 2 022 2:48pm Respiratory rate 18 /min -March 2:48pm Oxygen saturation by Pulse oximetry 99 % 95-100 March 19, 2022 2 :48pm BP Systolic 110 mm[Hg] 100-140 March 19, 2 022 2:48pm BP Diastolic 73 mm[Hg] 50-85 March 19, 2 022 2:48pm Weight 77.11 kg April 06, 2022 11:31am Heart Rate 75 /min 60-100 April 06, 2022 12:15pm Respiratory rate 18 /min -April 062021 12:15pm Oxygen saturation by Pulse oximetry 99 % 95-100 April 06, 2022 12:15pm BP Systolic 128 mm[Hg] 100-140 April 06, 2022 12:15pm BP Diastolic 81 mm[Hg] 50-85 April 06, 2022 12:15pm Weight 72.57 kg August 28 1:56pm Body Temperature 98.1 [degF] 97.6-99.6 August 28, 2022 10:00pm Heart Rate 78 /min 60-100 August 28 10:00pm Respiratory rate 16 /min -August 28, 2022 10:00pm Oxygen saturation by Pulse oximetry 93 % 95-100 August 28, 2022 10: 00pm BP Systolic 110 mm[Hg] 100-140 August 28 10:00pm BP Diastolic 72 mm[Hg] 50-85 August 28 10:00pm Weight 72.57 kg September 16, 2022 1 0:21pm Body Temperature 98.4 [degF] 97.6-99.6 September 16 10:21pm Heart Rate 77 /min 60-100 September 17, 2022 4 :10am Respiratory rate 16 /min 12-September 17 4:10am Oxygen saturation by Pulse oximetry 100 % 95-100 September 17, 2022 4:10am BP Systolic 100 mm[Hg] 100-140 September 17, 2022 4 :10am BP Diastolic 58 mm[Hg] 50-85 September 17, 2022 4 :10am Weight 73.02 kg October 16, 2022 2:44pm Body Temperature 97.8 [degF] 97.6-99.6 October 16, 2 023 2:44pm Heart Rate 88 /min 60-100 October 16, 2022 9:18pm Respiratory rate 16 /min -October 16, 2 023 9:18pm Oxygen saturation by Pulse oximetry 98 % 95-100 October 16, 2022 9:18p m BP Systolic 127 mm[Hg] 100-140 October 16, 2022 9:18pm BP Diastolic 71 mm[Hg] 50-85 October 16, 2022 9:18pm Weight 73.02 kg October 23, 2022 7:44pm Body Temperature 98 [degF] 97.6-99.6 October 24, 2022 5:35am Heart Rate 74 /min 60-100 October 24, 2022 5:35am Respiratory rate 16 /min 12-24 October 24, 2022 5:35am Oxygen saturation by Pulse oximetry 97 % 95-100 October 24, 2022 5:35 am BP Systolic 112 mm[Hg] 100-140 October 24, 2022 5:35am BP Diastolic 54 mm[Hg] 50-85 October 24, 2022 5:35am Advance Directives Advance Directive Response Recorded Date/ Time Does patient have an Advance Directive? No 2022 7:29pm Does patient have a COLST form? No 2022 7:29pm Insurance Providers Guarantor EDUARDO PAYAN Address [address] [address] Contact Info. Home Phone: Payer Policy Id Coverage Id Subscriber's Name Subscriber Id Effective Date Expiration Date MIGUEL ANGEL MCNAMARA [id number] EDUARDO PAYAN [id number] SELF PAY Self N/A Encounters Encounter Location(s) Arrival/Admit Date Discharge/Depart Date Provider(s) Departed Emergency [facility] November 10, 2021 11:22am November 10, 2021 5:45pm null Departed Emergency [facility] 2022 5:23pm 2022 9:55pm null Departed Emergency [facility] February 20, 2022 2:39pm February 20, 2022 3:42pm null Depart[address] Emergency [facility] March 19, 2022 2:34pm March 19, 2022 4:09pm null Depart[address] Emergency [facility] April 06, 2022 11:08am April 06, 2022 12:29pm null Depart[address] Emergency [facility] August 28, 2022 1:47pm August 28, 2022 10:20pm null Depart[address] Emergency [facility] September 16, 2022 10:06pm September 17, 2022 4:32am null Depart[address] Emergency [facility] October 16, 2022 2:30pm October 16, 2022 9:24pm null [address] Emergency [facility] October 23, 2022 7:18pm October 24, 2022 6:00am null Functional Status Observation Response Date Recorded Living Situation Home October 23, 2022 7:53pm Mental Status Observation Response Date Recorded Comprehension Ability Understands Concepts Novem 2021 11:53am Mood/Behavior Appropriate April 06 022 11:53am Anxious April 06 022 11:53am Comprehension Ability Understands Concepts September 172022 12:00am Speech Appropriate September 17, 2022 12 :00am Mood/Behavior Appropriate September 17, 2022 12 :00am Comprehension Ability Understands Concepts 2021 3:30pm Mood/Behavior Appropriate March 19 3:30pm Plan of Treatment Future Tests Future scheduled test information is unavailable Pending Tests Pending diagnostic test information is unavailable Future Visits Future appointment information is unavailable Referrals to Other Providers Reason for Referral Referral Start Date Provider Provider Contact Information Provider Address No Pcp Emely holloway MD Work Phone: [facility] [employer] ECONOMIST [address] [facility] [address] [facility] Obstectrics and Gynecology Work Phone: [address] [facility] [phone] No Pcp [facility] Gynecology [facility] Oncology Work Phone: [address] [facility] Level [address] [facility] [address] No Pcp No Pcp Not Given No Pcp Ashlie Ramos Work Phone: [address] [place] [address] No Pcp Not Given Future Procedures Future procedure information is unavailable Future Medications Future medication information is unavailable Patient Instructions Chronic Pelvic Pain (DC) Abdominal Pain, Adult ED Heavy Periods (DC) Abdominal Pain, Adult ED Anemia Caused by Low Iron, A dult (DC) Hospital Discharge Instructions Additional Instructions Patient contact information: Primary phone:[phone] (Note to patient; Please let our registration staff know if this phone number is not correct so we can keep our systems accurate) *Regarding pending labs, you will only be called for positive/abnormal results. Negative/normal results can be found on the patient portal. Progress Note Author Fahad Morejon [facility] October 24, 2022 5:45am Note Date/Time October 23, 2022 8:33 pm [facility] ER Physician Documentation PATIENT NAME: EDUARDO PAYAN MRN: [id number] DATE OF : 2000 ATTENDING PHYSICIAN: PRIMARY CARE PHYS: Not Given DICTATING PHYSICIAN: Fahad Morejon MD REPORT STATUS: Signed DOS DATE OF SERVICE: 10/23/22 ED PROVIDER: Fahad Morejon PRIMARY CARE PROVIDER: PCP Not Given supervisor framing mill Triage Note supervisor framing mill: Chief Complaint Vaginal Bleeding Acuity Level 3 Urgent Triage Note Pt has a rectal-vaginal fist tae and is going to have surgery on Monday 11am at [place]. Pt c/o heavy vaginal bleeding since yesterday morning. Pt hx of sepsis from fistula. Pt sent in for eval. Pt has cholostomy. History of Present Illness The patient is a 22 yo F who presents to [facility] Emergency Department with complaint of VAG BLEEDING. The patient arrived byWalk-In from a home environment. The history was provided by the patient. RN notes were reviewed, past medical history was reviewed and social history was reviewed. This evaluation was initiated on 10/23/22 20:15 Patient has a vaginal rectal fistula and is scheduled for surgery in [place] in acouple of days. For the last 2 days she has had a heavy bleeding vaginally and vomiting. She had a temperature of 103 yesterday and today. She was able to keep a little Tylenol down. She takes TXA when she has heavy vaginal bleeding but has not been able to keep that or her pain medicine down. Review of Systems ROS Constitutional Report of Fever, Chills, Malaise and Decreased Appetite Skin NO Report of Acute Rash or Skin Infection Eyes NO Report of Eye Pain or Discharge HENT NO Report of Throat Pain, Trouble Swallowing or Nasal Congestion Respiratory NO Report of Labored Breathing or Cough Cardiovascular NO Report of Chest Pain Gastrointestinal Report of Nausea, Vomiting and Abdominal Pain; NO Report of Diarrhea Genitourinary (Female) Report of Vaginal Bleeding Musculoskeletal NO Report of Myalgias Neurological NO Report of Headache Heme/Lymph NO Report of Anticoagulated Endocrine NO Report of Blood Sugar Problem Allergy/Immune NO Report of Immunocompromised Past Medical History Medical History Anxiety Asthma Colostomy care Depression Endometriosis Surgical History History of appendectomy History of laparoscopy Chemotherapy: No Radiation Therapy: No Other Treatments and Interventions: No OBGYN History endometriosis Is Patient Currently ?: No Social History Smoking Status: Never smoker tobacco type: e-cigarettes Second Hand Smoke Exposure: Yes Hx Alcohol Use: Yes Alcohol intake frequency: a few times a month Alcohol type: hard liquor substance use type: marijuana Date of last use: weekly Hx Substance/Street Drug Use: Yes (Monthly marijuana as of 08/07/21) Hx Substance Use Treatment: No Port/Fistula/other Powerport: No Fistula/Port: No Isolation Needs Hx of: MRSA [place] Allergies droperidol Allergy (Verified 10/16/22 14:48) anaphylactic shock haloperidol [From Haldol] Allergy (Verified 10/16/22 14:48) rash ibuprofen Allergy (Verified 10/16/22 14:48) ketorolac [From Toradol] Allergy (Verified 10/16/22 14:48) anaphylaxis latex Allergy (Verified 10/16/22 14:48) rash metoclopramide [From Reglan] Allergy (Verified 10/23/22 19:51) Penicillins Allergy (Verified 10/16/22 14:48) hives prochlorperazine [From Compazine] Allergy (Verified 10/16/22 14:48) hives promethazine [From Phenergan] Allergy (Verified 10/23/22 19:51) Home Medications hydroxyzine HCl 100 mg tablet 100 mg PO HS PRN Sleep 10/14/20 sertraline 100 mg tablet 100 mg PO DAILY 10/14/20 trazodone 100 mg tablet 100 mg PO HS 10/14/20 gabapentin 100 mg tablet 300 mg PO HS 01/02/21 [Confirmed 01/02/21] fluticasone propionate 115 mcg-salmeterol 21 mcg/actuation HFA inhaler (Advair HFA) 2 inh inhalation DAILY 03/16/21 [Confirmed 03/16/21] montelukast 10 mg tablet 10 mg PO DAILY 06/27/21 ondansetron 4 mg disintegrating tablet 4 - 8 mg PO Q8H PRN nausea and vomiting #8 tabs 08/07/21 omeprazole 20 mg capsule,delayed release 20 mg PO DAILY 09/23/21 norethindrone acetate 5 mg tablet 5 mg PO DAILY 01/10/22 tranexamic acid 650 mg tablet mg PO 03/19/22 tizanidine 4 mg capsule mg 09/16/22 fluticasone propionate 115 mcg-salmeterol 21 mcg/actuation HFA inhaler (Advair HFA) inhalation 10/23/22 hydromorphone 2 mg tablet mg 10/23/22 hydromorphone 2 mg tablet 2 mg PO Q4-6H PRN pain #10 tabs 10/24/22 Vital Signs Table Temp Pulse Resp BP Pulse Ox O2 Del Method 10/24/22 04:20 98.1 F 92 16 98/47 L 98 Room Air 10/24/22 04:00 98 F 87 16 107/52 99 Room Air 10/23/22 22:00 88 16 121/79 99 Room Air 10/23/22 22:00 88 10/23/22 19:44 98.4 F 85 18 109/62 100 Room Air Primary Exam The patient's heart rate is 92, blood pressure is 98/47, temperature is 98.1F, and respiratory rate is 16. Oxygen saturation is 98%; The patient weighs 73 kg. Mental status is awake and appropriate. There is no apparentrespiratory difficulty. The patient has warm extremities, normal capillary refill and normal peripheral pulses. The skin is normal color, dry and no rash. The patient appears uncomfortable; secondary to pain Detailed Exam Const normally developed and well appearing Eyes conjunctivae normal and EOM intact bilaterally HENT head: normocephalic and atraumatic mouth/throat: oral mucosae normal and moist mucous membranes ears: external ears normal nose: external nose normal Neck full ROM and supple Resp clear to auscultation and equal breath sounds; negative tachypnea Card regular rhythm and no murmur; negative tachycardia GI soft, normal bowel sounds and tender to palpation (Diffusely with some distention and a left-sided colostomy) Musc extremities NL to inspect and well perfused Neuro no focal deficits, NL fine motor control and cranial nerves intact Psych mental status: mental status grossly normal Ordered Tests and Interventions Category Date Time Status 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 (ED) NOW Care 10/23/22 20:29 Completed IV Insertion (ED) .once Care 10/23/22 20:[address] Abd Pel w/ Contrast Stat Exams 10/23/22 20:29 Completed BASIC METABOLIC PANEL Stat Lab 10/23/22 21:40 Completed CBC W/DIFF Stat Lab 10/23/22 21:40 Completed HEMOGLOBIN AND HEMATOCRIT Stat Lab 10/24/22 01:00 Completed LACTIC ACID Stat Lab 10/23/22 21:40 Completed TRANSFUSE PACKED RBCs Stat Lab 10/24/22 01:00 Completed TYPE AND SCREEN Stat Lab 10/24/22 01:00 Completed Ordered Medications Discontinued Medications Diphenhydramine HCl (Diphenhydramine Inj 50 Mg/Ml Vial) 50 mg IV ONCE STA Stop: 10/23/22 20:30 Last Admin: 10/23/22 22:27 Dose: 50 mg Diphenhydramine HCl (Diphenhydramine Inj 50 Mg/Ml Vial) 50 mg IV ONCE STA Stop: 10/24/22 01:40 Last Admin: 10/24/22 02:06 Dose: 50 mg Hydromorphone HCl (Hydromorphone 1 Mg/Ml Inj) 1 mg IV ONCE STA Stop: 10/23/22 20:30 Last Admin: 10/23/22 22:27 Dose: 1 mg Hydromorphone HCl (Hydromorphone 1 Mg/Ml Inj) 1 mg IV ONCE STA Stop: 10/23/22 23:44 Last Admin: 10/23/22 23:52 Dose: 1 mg Hydromorphone HCl (Hydromorphone 1 Mg/Ml Inj) 1 mg IV ONCE STA Stop: 10/24/22 01:40 Last Admin: 10/24/22 02:06 Dose: 1 mg Sodium Chloride (Sodium Chl 0.9%) 1,000 mls @ 0 mls/hr IV .Q0M ONE Stop: 10/23/22 20:30 Last Infusion: 10/24/22 01:00 Dose: Infused Tranexamic Acid (Tranexamic Acid Piggyback) 1,000 mg in 100 mls @ 400 mls/hr IVONCE ONE Stop: 10/23/22 20:47 Last Infusion: 10/23/22 22:42 Dose: Infused Iohexol (Iohexol 1-150 Ml Soln) 1 - 150 ml IV ONCE ONE Stop: 10/23/22 20:30 Last Admin: 10/23/22 23:13 Dose: 100 ml Ondansetron HCl (Ondansetron 4 Mg/2 Ml Vial) 8 mg IV ONCE STA Stop: 10/23/22 20:30 Last Admin: 10/23/22 22:27 Dose: 8 mg Ondansetron HCl (Ondansetron 4 Mg/2 Ml Vial) 8 mg IV ONCE STA Stop: 10/24/22 01:40 Last Admin: 10/24/22 02:06 Dose: 8 mg Lab Results 10/24/22 01:00: Blood Type A POSITIVE, Antibody Screen Negative, Crossmatch IS Only See Detail, Spec Expiration Date 10/27/22 10/24/22 01:00: Hgb 7.6 L, Hct 25.6 L 10/23/22 21:40: Sodium 141, Potassium 3.7, Chloride 105, Carbon Dioxide 27, Anion Gap 9, BUN 8, Creatinine 0.80, GFR Calculation 106, Glucose 93, Lactic Acid 1.2, Calcium 8.6 10/23/22 21:40: WBC 3.88 L, RBC 3.77 L, Hgb 8.6 L, Hct 28.7 L, MCV 76.1 L, MCH 22.8 L, MCHC 30.0 L, RDW 17.5 H, Plt Count 244, MPV 11.2 H, Immature Gran % (Auto) 0.3, Neut % (Auto) 56.1, Lymph % (Auto) 32.0, [place] % (Auto) 7.5, Eos % (Auto) 3.1 H, Baso % (Auto) 1.0, Neut # (Auto) 2.18, Lymph # (Auto) 1.24, [place] #(Auto) 0.29, Eos # (Auto) 0.12, Baso # (Auto) 0.04, Abs Immat Gran (auto) 0.0, Differential Method Automated Data Review POC Test Results: No Data to Display Progress notes Time: 00:16 While she is anemic her lab work otherwise was stable. Patient states her bleeding has decreased but is still present. Her nausea is controlled. She hadvomiting after the TXA but that is normal for her when she gets it IV. We will recheck her hemoglobin now that she has had some fluids and type and screen her just in case she needs a transfusion. It is now Monday morning and her surgery in [place] is scheduled for tomorrow. Time: 02:02 Patient has worsening pain and nausea again. We will repeat Benadryl Zofran andDilaudid. She states she just passed some stool through her vagina. Her hemoglobin is down to 7.6 after fluids and additional bleeding so we will give her a unit of blood now. Medical Decision Making MDM Time: 05:44 Patient received 1 unit of blood. She required several additional dosing of nausea medicine Benadryl and Dilaudid. She is to present to the hospital in [place] tomorrow morning. If she has heavy bleeding or any other serious symptoms she may present here or there before then. Discharge Plan Provider Discharge Plan Clinical Impression: Abnormal vaginal bleeding, Anemia due to blood loss Patient Disposition: Home/Self Care Instructions: Anemia Caused by Low Iron, Adult (DC) Activity Restrictions/Additional Instructions: Patient contact information: Primary phone:[phone] (Note to patient; Please let our registration staff know if this phone number isnot correct so we can keep our systems accurate) *Regarding pending labs, you will only be called for positive/abnormal results. Negative/normal results can be found on the patient portal. Referrals: PCP,Not Given [Primary Care Provider] - Within 1 Week Stand Alone Forms: ED General DC Instructions Prescriptions/Home Medications: New hydromorphone 2 mg tablet 2 mg PO Q4-6H PRN (Reason: pain) Qty: 10 0RF No Action sertraline 100 mg Tablet 100 mg PO DAILY trazodone 100 mg Tablet 100 mg PO HS hydroxyzine HCl 100 mg Tablet 100 mg PO HS PRN (Reason: Sleep) montelukast 10 mg tablet 10 mg PO DAILY Label Comments: TAKE ONE TABLET BY MOUTH EVERY DAY omeprazole 20 mg capsule,delayed release(DR/EC) 20 mg PO DAILY Label Comments: TAKE 1 CAPSULE BY MOUTH ONCE DAILY norethindrone acetate 5 mg Tablet 5 mg PO DAILY tizanidine 4 mg Capsule gabapentin 100 mg Tablet 300 mg PO HS fluticasone propion-salmeterol [Advair HFA] 115-21 mcg/actuation HFA aerosol inhaler 2 inh INHALATION DAILY Label Comments: INHALE TWO PUFFS BY MOUTH TWICE A DAY ondansetron 4 mg tablet,disintegrating 4 - 8 mg PO Q8H PRN (Reason: nausea and vomiting) Qty: 8 0RF tranexamic acid 650 mg tablet PO Label Comments: take 2 tablets by mouth three times a day for 5 days START AT ONS... (REFER TO PRESCRIPTION NOTES). Rx Instructions: tid for max 5 days hydromorphone 2 mg tablet Label Comments: TAKE 1 TABLET BY MOUTH EVERY 4-6 HOURS NEEDED FOR PAIN fluticasone propion-salmeterol [Advair HFA] 115-21 mcg/actuation HFA aerosol inhaler INHALATION Label Comments: INHALE 2 PUFFS BY MOUTH TWICE DAILY <Electronically signed by Fahad Morejon MD> [id number] cc: ~
--- OUTSIDE RECORDS SUMMARY | 2022-11-20 17:44 | XMS_ITS | Continuity of Care Document ---
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 Name Role Phone PCP, of Choice Primary Care Provider MD Konstantin Donis Emergency Provider Tae Quiroz Emergency Provider [phone] MD Sen Segovia Emergency Provider MD Yolanda Dial Emergency Provider MD Cory Murillo Emergency Provider PCP, Not Given Primary Care Provider KIRA Turner Emergency Provider MD Fahad Morejon Emergency Provider [phone] MARIELLA Stevens Emergency Provider Care Teams Patient Care Team Team Status: [...] Active Fahad Morejon MD Emergency Provider Active Visit Care Team Team Status: Inactive Member Role Status Dates Not Given PCP Primary Care Provider Active Azalia Stevens NP Emergency Provider Active Chief Complaint and Reason for Visit Chief Complaint POST OP CONCERN POST OP CONCERN, BLEEDING PELVIC PAIN HEAVY VAG BLEEDING VAG BLEEDING LOWER ABD/PELVIC PAIN ABD PAIN ABDOMINAL COMPLAINT VAG BLEEDING VAGINAL BLEEDING, ABD PAIN ABD COMPLAINT, VAGINAL BLEEDING Allergies, Adverse Reactions, Alerts Allergen Type Severity Reaction Last Updated Verified Status droperidol Allergy anaphylactic shock October 142022 4:27pm Yes Active haloperidol Allergy rash November 05 4:27pm Yes Active ibuprofen Allergy November 05 4:27pm Yes Active ketorolac Allergy anaphylaxis November 05 4:27pm Yes Active latex Allergy rash November 05 4:27pm Yes Active metoclopramide Allergy November 05, 2022 4:27pm Yes Active Penicillins Allergy hives November 05 4:27pm Yes Active prochlorperazine Allergy hives October 4:27pm Yes Active promethazine Allergy November 05, 023 4:27pm Yes Active Social History Smoking Status Status Start Date End Date Date of Observa tion Never smoked tobacco (finding) November 06, 2022 2:48pm Observation Status Observation Response Date of Response Alcohol Use Yes November 06, 2022 2:48pm alcohol intake frequency a few times a month Oct 2:48pm Alcohol type hard liquor November 06, 2022 2:48pm Substance/Street Drug Use No October 142022 2:48pm Substance Use Treatment No October 2:48pm Smoking Status Never smoker November 06, 2022 2:48pm Additional Data Assigned Sex Female Problems Active Problems Medical Problem Onset Date Status Rectovaginal fistula Active Anemia Active Von Willebrand disease Active Vaginal bleeding Active 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 Abdominal pain Active Abdominal pain Active Inactive/Resolved Problems Medical [...] Resolv ed Abnormal vaginal bleeding Resolv ed Abnormal vaginal bleeding Resolv ed Anemia due to blood loss Resolve d Post-operative pain Resolved Pain, dental Resolved Pain, [...] PO DAILY 14 October 15, 2020 12:00am [facility] 2020 5:42pm Hydrocodone-A cetaminophen Disconti nued TABLET December 29, 2020 12:00am January 07, 2021 5:04pm Cefdinir Disconti nued 300 MG PO TWICE A DAY 20 [facility] 2020 12:00am Septem rinku 2020 9:07pm Tramadol Disconti nued 50 MG PO Q8H 10 [facility] 2020 12:00am Septem 2020 9:06pm Montelukast Active 10 MG PO DAILY 2021 1:00am Omeprazole Disconti nued 20 MG PO DAILY 2021 1:00am August 07, 2021 12:12p m Cephalexin Disconti nued 500 MG PO FOUR TIMES DAILY 2021 1:00am August 07, 2021 12:12p m Tramadol (Ultram) 50 mg Tablet Disconti nued 50 MG PO Q6H 2021 1:00am August 07, 2021 12:12p m Omeprazole Active 20 MG PO DAILY September 23, 2021 12:00am Norethindrone Acetate Active 20 MG PO DAILY 2022 12:00am Tizanidine Active MG CAPSULE September 16, 2022 12:00am Sulfamethoxaz ole-Trimethop rim Disconti nued 800 TAB PO TWICE A DAY October 16, 2022 12:00am October 23, 2022 7:52pm Diphenhydrami ne Hcl (Benadryl) 50 mg Capsule Active 50 MG PO ONCE November 05, 2022 12:00am given with zofran Gabapentin Active 300 MG PO BEDTIME Augus t 2020 12:00am Hydrocodone-A cetaminophen Disconti nued 1 TAB [...] 2020 3:08pm Oxycodone Disconti nued MG CAPSULE Novembe r 2020 12:00am Februa ry 2021 3:37pm Fluticasone Propion-Salme terol (Advair Hfa) 115-21 mcg/actuation HFA aerosol inhaler Active 2 INH INH DAILY r 2020 12:00am Ondansetron Hcl (Zofran) 4 mg tablet Disconti nued 4 MG PO Q8H 12 4 be r 2020 12:00am Novemb er 2020 1:01am Sulfamethoxaz ole-Trimethop rim (Bactrim Ds) 800-160 mg tablet Disconti nued 1 TAB PO TWICE A DAY 14 r 2020 12:00am Novemb er 2020 1:25pm Tizanidine Disconti nued 4 MG PO As Directed August 07, 2021 12:00am November 10, 2021 12:18p m Ondansetron Active 4 - 8 MG PO Q8H 8 August 07, 2021 12:00am Tranexamic Acid Active MG PO r 2021 12:00am tid for max 5 days Hydromorphone Active MG TABLET Oct 12:00am Fluticasone Propion-Salme terol (Advair Hfa) 115-21 [...] 2021 1:00pm 4.91 1000/mm3 4.8-10.8 [facility] [id number] [address] [address] White Blood Count 2022 8:10pm 5.41 1000/mm3 4.8-10.8 MAIN LAB [id number] [address] [address] White Blood Count April 06, 2022 11:27am 3.71 1000/mm3 4.8-10.8 MA[facility] LAB [id number] [address] [address] White Blood Count August 28, 2022 5:10pm 5.35 1000/mm3 4.8-10.8 [facility] [id number] [address] [address] White Blood Count September 17, 2022 12:25am 4.23 1000/mm3 4.8-10.8 MAIN LAB [id number] [address] [address] White Blood Count October 16, 2022 4:04pm 4.29 1000/mm3 4.8-10.8 MA[facility] [id number] [address] [address] White Blood Count October 23, 2022 9:40pm 3.88 1000/mm3 4.8-10.8 MA[facility] [id number] [address] [address] White Blood Count November 05, 2022 5:10pm 4.42 1000/mm3 4.8-10.8 MAIN LAB [id number] [address] [address] White Blood Count November 06, 2022 2:34pm 3.67 1000/mm3 4.8-10.8 MAIN LAB [id number] [address] [address] Red Blood Count November 10, 2021 1:00pm 3.22 M/mm3 4.20-5.40 MAIN LAB [id number] [address] [address] Red Blood Count 2022 8:10pm 4.00 M/mm3 4.20-5.40 MA[facility] LAB [id number] [address] [address] Red Blood Count April 06, 2022 11:27am 3.66 M/mm3 4.20-5.40 MAIN LAB [id number] [address] [address] Red Blood Count August 28, 2022 5:10pm 4.13 M/mm3 4.20-5.40 MAIN LAB [id number] [address] [address] Red Blood Count September 17, 2022 12:25am 3.54 M/mm3 4.20-5.40 MAIN LAB [id number] [address] [address] Red Blood Count October 16, 2022 4:04pm 4.38 M/mm3 4.20-5.40 MAIN LAB [id number] [address] [address] Red Blood Count October 23, 2022 9:40pm 3.77 M/mm3 4.20-5.40 MAIN LAB [id number] [address] [address] Red Blood Count November 05, 2022 5:10pm 4.08 M/mm3 4.20-5.40 MA[facility] [id number] [address] [address] Red Blood Count November 06, 2022 2:34pm 4.04 M/mm3 4.20-5.40 MA[facility] [id number] [address] [address] Hemoglobin November 10, 2021 1:00pm 8.4 g/dL 12.0-16.0 MA[facility] [id number] [address] [address] Hemoglobin 2022 8:10pm 8.6 g/dL 12.0-16.0 MAIN [facility] [id number] [address] [address] Hemoglobin April 06, 2022 11:27am 8.5 g/dL 12.0-16.0 MAIN LAB [id number] [address] [address] Hemoglobin August 28, 2022 5:10pm 9.2 g/dL 12.0-16.0 MAIN LAB [id number] [address] [address] Hemoglobin September 17, 2022 12:25am 7.7 g/dL 12.0-16.0 MAIN LAB [id number] [address] [address] Hemoglobin October 16, 2022 4:04pm 9.9 g/dL 12.0-16.0 MAIN LAB [id number] [address] [address] Hemoglobin October 24, 2022 1:00am 7.6 g/dL 12.0-16.0 MAIN LAB [id number] [address] [address] Hemoglobin November 05, 2022 5:10pm 9.5 g/dL 12.0-16.0 MAIN LAB [id number] [address] [address] Hemoglobin November 06, 2022 2:34pm 9.4 g/dL 12.0-16.0 MAIN LAB [id number] [address] [address] Hematocrit November 10, 2021 1:00pm 26.8 % 37-47 MAIN LAB [id number] [address] [address] Hematocrit 2022 8:10pm 29.3 % 37-47 MAIN LAB [id number] [address] [address] Hematocrit April 06, 2022 11:27am 27.6 % 37-47 MAIN LAB [id number] [address] [address] Hematocrit August 28, 2022 5:10pm 30.8 % 37-47 MAIN LAB [id number] [address] [address] Hematocrit September 17, 2022 12:25am 25.8 % 37-47 MAIN LAB [id number] [address] [address] Hematocrit October 16, 2022 4:04pm 32.6 % 37-47 MAIN LAB [id number] [address] [address] Hematocrit October 24, 2022 1:00am 25.6 % 37-47 MAIN LAB [id number] [address] [address] Hematocrit November 05, 2022 5:10pm 31.3 % 37-47 MAIN LAB [id number] [address] [address] Hematocrit November 06, 2022 2:34pm 31.2 % 37-47 MAIN LAB [id number] [address] [address] Mean Corpuscular Volume November 10, 2021 1:00pm 83.2 fL 81.0-99.0 MAIN LAB [id number] [address] [address] Mean Corpuscular Volume 2022 8:10pm 73.3 fL 81.0-99.0 MAIN LAB [id number] [address] [address] Mean Corpuscular Volume April 06, 2022 11:27am 75.4 fL 81.0-99.0 MAIN LAB [id number] [address] [address] Mean Corpuscular Volume August 28, 2022 5:10pm 74.6 fL 81.0-99.0 MAIN LAB [id number] [address] [address] Mean Corpuscular Volume September 17, 2022 12:25am 72.9 fL 81.0-99.0 MAIN LAB [id number] [address] [address] Mean Corpuscular Volume October 16, 2022 4:04pm 74.4 fL 81.0-99.0 MAIN LAB [id number] [address] [address] Mean Corpuscular Volume October 23, 2022 9:40pm 76.1 fL 81.0-99.0 MAIN LAB [id number] [address] [address] Mean Corpuscular Volume November 05, 2022 5:10pm 76.7 fL 81.0-99.0 MAIN LAB [id number] [address] [address] Mean Corpuscular Volume November 06, 2022 2:34pm 77.2 fL 81.0-99.0 MAIN LAB [id number] [address] [address] Mean Corpuscular Hemoglobin November 10, 2021 1:00pm 26.1 pg 27-31 MAIN LAB [id number] [address] [address] Mean Corpuscular Hemoglobin 2022 8:10pm 21.5 pg 27-31 MAIN LAB [id number] [address] [address] Mean Corpuscular Hemoglobin April 06, 2022 11:27am 23.2 pg 27-31 MAIN LAB [id number] [address] [address] Mean Corpuscular Hemoglobin August 28, 2022 5:10pm 22.3 pg 27-31 MAIN LAB [id number] [address] [address] Mean Corpuscular Hemoglobin September 17, 2022 12:25am 21.8 pg 27-31 MAIN LAB [id number] [address] [address] Mean Corpuscular Hemoglobin October 16, 2022 4:04pm 22.6 pg 27-31 MAIN LAB [id number] [address] [address] Mean Corpuscular Hemoglobin October 23, 2022 9:40pm 22.8 pg 27-31 MAIN LAB [id number] [address] [address] Mean Corpuscular Hemoglobin November 05, 2022 5:10pm 23.3 pg 27-31 MAIN LAB [id number] [address] [address] Mean Corpuscular Hemoglobin November 06, 2022 2:34pm 23.3 pg 27-31 MAIN LAB [id number] [address] [address] Mean Corpuscular Hemoglobin Concent November 10, 2021 1:00pm 31.3 g/dL 33-37 MAIN LAB [id number] [address] [address] Mean Corpuscular Hemoglobin Concent 2022 8:10pm 29.4 g/dL 33-37 MAIN LAB [id number] [address] [address] Mean Corpuscular Hemoglobin Concent April 06, 2022 11:27am 30.8 g/dL 33-37 MAIN LAB [id number] [address] [address] Mean Corpuscular Hemoglobin Concent August 28, 2022 5:10pm 29.9 g/dL 33-37 MAIN LAB [id number] [address] [address] Mean Corpuscular Hemoglobin Concent September 17, 2022 12:25am 29.8 g/dL 33-37 MAIN LAB [id number] [address] [address] Mean Corpuscular Hemoglobin Concent October 16, 2022 4:04pm 30.4 g/dL 33-37 MAIN LAB [id number] [address] [address] Mean Corpuscular Hemoglobin Concent October 23, 2022 9:40pm 30.0 g/dL 33-37 MAIN LAB [id number] [address] [address] Mean Corpuscular Hemoglobin Concent November 05, 2022 5:10pm 30.4 g/dL 33-37 MAIN LAB [id number] [address] [address] Mean Corpuscular Hemoglobin Concent November 06, 2022 2:34pm 30.1 g/dL 33-37 MAIN LAB [id number] [address] [address] Red Cell Distribution Width November 10, 2021 1:00pm 14.4 % 11.5-14.5 MAIN LAB [id number] [address] [address] Red Cell Distribution Width 2022 8:10pm 15.2 % 11.5-14.5 MAIN LAB [id number] [address] [address] Red Cell Distribution Width April 06, 2022 11:27am 16.4 % 11.5-14.5 MAIN LAB [id number] [address] [address] Red Cell Distribution Width August 28, 2022 5:10pm 14.2 % 11.5-14.5 MAIN LAB [id number] [address] [address] Red Cell Distribution Width September 17, 2022 12:25am 14.9 % 11.5-14.5 MAIN LAB [id number] [address] [address] Red Cell Distribution Width October 16, 2022 4:04pm 18.1 % 11.5-14.5 MAIN LAB [id number] [address] [address] Red Cell Distribution Width October 23, 2022 9:40pm 17.5 % 11.5-14.5 MAIN LAB [id number] [address] [address] Red Cell Distribution Width November 05, 2022 5:10pm 17.2 % 11.5-14.5 MAIN LAB [id number] [address] [address] Red Cell Distribution Width November 06, 2022 2:34pm 17.2 % 11.5-14.5 MAIN LAB [id number] [address] [address] Platelet Count November 10, 2021 1:00pm 282 1000/mm3 140-440 MAIN LAB [id number] [address] [address] Platelet Count 2022 8:10pm 217 1000/mm3 140-440 MAIN LAB [id number] [address] [address] Platelet Count April 06, 2022 11:27am 174 1000/mm3 140-440 MAIN LAB [id number] [address] [address] Platelet Count August 28, 2022 5:10pm 216 1000/mm3 140-440 MAIN LAB [id number] [address] [address] Platelet Count September 17, 2022 12:25am 198 1000/mm3 140-440 MAIN LAB [id number] [address] [address] Platelet Count October 16, 2022 4:04pm 291 1000/mm3 140-440 MAIN LAB [id number] [address] [address] Platelet Count October 23, 2022 9:40pm 244 1000/mm3 140-440 MAIN LAB [id number] [address] [address] Platelet Count November 05, 2022 5:10pm 201 1000/mm3 140-440 MAIN LAB [id number] [address] [address] Platelet Count November 06, 2022 2:34pm 175 1000/mm3 140-440 MAIN LAB [id number] [address] [address] Mean Platelet Volume November 10, 2021 1:00pm 10.5 fL 7.4-10.4 MAIN LAB [id number] [address] [address] Mean Platelet Volume 2022 8:10pm 12.9 fL 7.4-10.4 MAIN LAB [id number] [address] [address] Mean Platelet Volume August 28, 2022 5:10pm 10.4 fL 7.4-10.4 MAIN LAB [id number] [address] [address] Mean Platelet Volume September 17, 2022 12:25am 11.6 fL 7.4-10.4 MAIN LAB [id number] [address] [address] Mean Platelet Volume October 16, 2022 4:04pm 10.7 fL 7.4-10.4 MAIN LAB [id number] [address] [address] Mean Platelet Volume October 23, 2022 9:40pm 11.2 fL 7.4-10.4 MAIN LAB [id number] [address] [address] Neutrophils (%) (Auto) November 10, 2021 1:00pm 67.8 % 40.0-72.0 MAIN LAB [id number] [address] [address] Neutrophils (%) (Auto) 2022 8:10pm 58.0 % 40.0-72.0 MAIN LAB [id number] [address] [address] Neutrophils (%) (Auto) April 06, 2022 11:27am 55.7 % 40.0-72.0 MAIN LAB [id number] [address] [address] Neutrophils (%) (Auto) August 28, 2022 5:10pm 68.4 % 40.0-72.0 MAIN LAB [id number] [address] [address] Neutrophils (%) (Auto) September 17, 2022 12:25am 57.7 % 40.0-72.0 MAIN LAB [id number] [address] [address] Neutrophils (%) (Auto) October 16, 2022 4:04pm 56.8 % 40.0-72.0 MAIN LAB [id number] [address] [address] Neutrophils (%) (Auto) October 23, 2022 9:40pm 56.1 % 40.0-72.0 MAIN LAB [id number] [address] [address] Neutrophils (%) (Auto) November 05, 2022 5:10pm 59.2 % 40.0-72.0 MAIN LAB [id number] [address] [address] Neutrophils (%) (Auto) November 06, 2022 2:34pm 56.7 % 40.0-72.0 MAIN LAB [id number] [address] [address] Lymphocytes (%) (Auto) November 10, 2021 1:00pm 23.4 % 17-45 MAIN LAB [id number] [address] [address] Lymphocytes (%) (Auto) 2022 8:10pm 31.4 % 17-45 MAIN LAB [id number] [address] [address] Lymphocytes (%) (Auto) April 06, 2022 11:27am 34.0 % 17-45 MAIN LAB [id number] [address] [address] Lymphocytes (%) (Auto) August 28, 2022 5:10pm 24.1 % 17-45 MAIN LAB [id number] [address] [address] Lymphocytes (%) (Auto) September 17, 2022 12:25am 32.4 % 17-45 MAIN LAB [id number] [address] [address] Lymphocytes (%) (Auto) October 16, 2022 4:04pm 35.0 % 17-45 MAIN LAB [id number] [address] [address] Lymphocytes (%) (Auto) October 23, 2022 9:40pm 32.0 % 17-45 MAIN LAB [id number] [address] [address] Lymphocytes (%) (Auto) November 05, 2022 5:10pm 31.2 % 17-45 MAIN LAB [id number] [address] [address] Lymphocytes (%) (Auto) November 06, 2022 2:34pm 32.7 % 17-45 MAIN LAB [id number] [address] [address] Monocytes (%) (Auto) November 10, 2021 1:00pm 4.7 % 3-11 MAIN LAB [id number] [address] [address] Monocytes (%) (Auto) 2022 8:10pm 7.6 % 3-11 MAIN LAB [id number] [address] [address] Monocytes (%) (Auto) April 06, 2022 11:27am 6.5 % 3-11 MAIN LAB [id number] [address] [address] Monocytes (%) (Auto) August 28, 2022 5:10pm 5.0 % 3-11 MAIN LAB [id number] [address] [address] Monocytes (%) (Auto) September 17, 2022 12:25am 6.9 % 3-11 MAIN LAB [id number] [address] [address] Monocytes (%) (Auto) October 16, 2022 4:04pm 5.6 % 3-11 MAIN LAB [id number] [address] [address] Monocytes (%) (Auto) October 23, 2022 9:40pm 7.5 % 3-11 MAIN LAB [id number] [address] [address] Monocytes (%) (Auto) November 05, 2022 5:10pm 6.3 % 3-11 MA[facility] LAB [id number] [address] [address] Monocytes (%) (Auto) November 06, 2022 2:34pm 6.3 % 3-11 MA[facility] LAB [id number] [address] [address] Eosinophils (%) (Auto) November 10, 2021 1:00pm 3.1 % 0-3 MAIN LAB [id number] [address] [address] Eosinophils (%) (Auto) 2022 8:10pm 1.7 % 0-3 MAIN LAB [id number] [address] [address] Eosinophils (%) (Auto) April 06, 2022 11:27am 2.4 % 0-3 MAIN LAB [id number] [address] [address] Eosinophils (%) (Auto) August 28, 2022 5:10pm 1.5 % 0-3 MAIN LAB [id number] [address] [address] Eosinophils (%) (Auto) September 17, 2022 12:25am 1.9 % 0-3 MAIN LAB [id number] [address] [address] Eosinophils (%) (Auto) October 16, 2022 4:04pm 1.2 % 0-3 MAIN LAB [id number] [address] [address] Eosinophils (%) (Auto) October 23, 2022 9:40pm 3.1 % 0-3 MAIN LAB [id number] [address] [address] Eosinophils (%) (Auto) November 05, 2022 5:10pm 2.0 % 0-3 MAIN LAB [id number] [address] [address] Eosinophils (%) (Auto) November 06, 2022 2:34pm 2.7 % 0-3 MAIN LAB [id number] [address] [address] Basophils (%) (Auto) November 10, 2021 1:00pm 0.6 % 0-1 MAIN LAB [id number] [address] [address] Basophils (%) (Auto) 2022 8:10pm 1.1 % 0-1 MAIN LAB [id number] [address] [address] Basophils (%) (Auto) April 06, 2022 11:27am 1.1 % 0-1 MAIN LAB [id number] [address] [address] Basophils (%) (Auto) August 28, 2022 5:10pm 0.6 % 0-1 MA[facility] LAB [id number] [address] [address] Basophils (%) (Auto) September 17, 2022 12:25am 0.9 % 0-1 MAIN LAB [id number] [address] [address] Basophils (%) (Auto) October 16, 2022 4:04pm 1.2 % 0-1 MA[facility] LAB [id number] [address] [address] Basophils (%) (Auto) October 23, 2022 9:40pm 1.0 % 0-1 MAIN LAB [id number] [address] [address] Basophils (%) (Auto) November 05, 2022 5:10pm 1.1 % 0-1 MA[facility] LAB [id number] [address] [address] Basophils (%) (Auto) November 06, 2022 2:34pm 1.1 % 0-1 MA[facility] LAB [id number] [address] [address] Immature Granulocyte % (Auto) November 10, 2021 1:00pm 0.4 % 0-1 MA[facility] LAB [id number] [address] [address] Immature Granulocyte % (Auto) 2022 8:10pm 0.2 % 0-1 MAIN LAB [id number] [address] [address] Immature Granulocyte % (Auto) April 06, 2022 11:27am 0.3 % 0-1 MA[facility] LAB [id number] [address] [address] Immature Granulocyte % (Auto) August 28, 2022 5:10pm 0.4 % 0-1 MA[facility] LAB [id number] [address] [address] Immature Granulocyte % (Auto) September 17, 2022 12:25am 0.2 % 0-1 MA[facility] LAB [id number] [address] [address] Immature Granulocyte % (Auto) October 16, 2022 4:04pm 0.2 % 0-1 MA[facility] LAB [id number] [address] [address] Immature Granulocyte % (Auto) October 23, 2022 9:40pm 0.3 % 0-1 MA[facility] LAB [id number] [address] [address] Immature Granulocyte % (Auto) November 05, 2022 5:10pm 0.2 % 0-1 MA[facility] LAB [id number] [address] [address] Immature Granulocyte % (Auto) November 06, 2022 2:34pm 0.5 % 0-1 [facility] [id number] [address] [address] Neutrophils # (Auto) November 10, 2021 1:00pm 3.33 1000/mm3 1.4-6.5 MA[facility] LAB [id number] [address] [address] Neutrophils # (Auto) 2022 8:10pm 3.14 1000/mm3 1.4-6.5 MA[facility] LAB [id number] [address] [address] Neutrophils # (Auto) April 06, 2022 11:27am 2.07 1000/mm3 1.4-6.5 MA[facility] LAB [id number] [address] [address] Neutrophils # (Auto) August 28, 2022 5:10pm 3.66 1000/mm3 1.4-6.5 MA[facility] LAB [id number] [address] [address] Neutrophils # (Auto) September 17, 2022 12:25am 2.44 1000/mm3 1.4-6.5 MA[facility] LAB [id number] [address] [address] Neutrophils # (Auto) October 16, 2022 4:04pm 2.44 1000/mm3 1.4-6.5 MA[facility] LAB [id number] [address] [address] Neutrophils # (Auto) October 23, 2022 9:40pm 2.18 1000/mm3 1.4-6.5 MA[facility] LAB [id number] [address] [address] Neutrophils # (Auto) November 05, 2022 5:10pm 2.61 1000/mm3 1.4-6.5 MA[facility] LAB [id number] [address] [address] Neutrophils # (Auto) November 06, 2022 2:34pm 2.08 1000/mm3 1.4-6.5 MA[facility] LAB [id number] [address] [address] Lymphocytes # (Auto) November 10, 2021 1:00pm 1.15 1000/mm3 1.2-3.4 MA[facility] LAB [id number] [address] [address] Lymphocytes # (Auto) 2022 8:10pm 1.70 1000/mm3 1.2-3.4 MA[facility] [id number] [address] [address] Lymphocytes # (Auto) April 06, 2022 11:27am 1.26 1000/mm3 1.2-3.4 MA[facility] [id number] [address] [address] Lymphocytes # (Auto) August 28, 2022 5:10pm 1.29 1000/mm3 1.2-3.4 MA[facility] LAB [id number] [address] [address] Lymphocytes # (Auto) September 17, 2022 12:25am 1.37 1000/mm3 1.2-3.4 MA[facility] [id number] [address] [address] Lymphocytes # (Auto) October 16, 2022 4:04pm 1.50 1000/mm3 1.2-3.4 MA[facility] [id number] [address] [address] Lymphocytes # (Auto) October 23, 2022 9:40pm 1.24 1000/mm3 1.2-3.4 MA[facility] [id number] [address] [address] Lymphocytes # (Auto) November 05, 2022 5:10pm 1.38 1000/mm3 1.2-3.4 MA[facility] LAB [id number] [address] [address] Lymphocytes # (Auto) November 06, 2022 2:34pm 1.20 1000/mm3 1.2-3.4 MA[facility] LAB [id number] [address] [address] Monocytes # (Auto) November 10, 2021 1:00pm 0.23 1000/mm3 0.0-0.8 MA[facility] [id number] [address] [address] Monocytes # (Auto) 2022 8:10pm 0.41 1000/mm3 0.0-0.8 MA[facility] LAB [id number] [address] [address] Monocytes # (Auto) April 06, 2022 11:27am 0.24 1000/mm3 0.0-0.8 MA[facility] LAB [id number] [address] [address] Monocytes # (Auto) August 28, 2022 5:10pm 0.27 1000/mm3 0.0-0.8 MA[facility] LAB [id number] [address] [address] Monocytes # (Auto) September 17, 2022 12:25am 0.29 1000/mm3 0.0-0.8 MAIN LAB [id number] [address] [address] Monocytes # (Auto) October 16, 2022 4:04pm 0.24 1000/mm3 0.0-0.8 MAIN LAB [id number] [address] [address] Monocytes # (Auto) October 23, 2022 9:40pm 0.29 1000/mm3 0.0-0.8 MA[facility] [id number] [address] [address] Monocytes # (Auto) November 05, 2022 5:10pm 0.28 1000/mm3 0.0-0.8 [facility] [id number] [address] [address] Monocytes # (Auto) November 06, 2022 2:34pm 0.23 1000/mm3 0.0-0.8 MA[facility] [id number] [address] [address] Eosinophils # (Auto) November 10, 2021 1:00pm 0.15 1000/mm3 0.0-0.7 MA[facility] [id number] [address] [address] Eosinophils # (Auto) 2022 8:10pm 0.09 1000/mm3 0.0-0.7 MA[facility] LAB [id number] [address] [address] Eosinophils # (Auto) April 06, 2022 11:27am 0.09 1000/mm3 0.0-0.7 MA[facility] [id number] [address] [address] Eosinophils # (Auto) August 28, 2022 5:10pm 0.08 1000/mm3 0.0-0.7 MAIN [facility] [id number] [address] [address] Eosinophils # (Auto) September 17, 2022 12:25am 0.08 1000/mm3 0.0-0.7 MA[facility] [id number] [address] [address] Eosinophils # (Auto) October 16, 2022 4:04pm 0.05 1000/mm3 0.0-0.7 MA[facility] [id number] [address] [address] Eosinophils # (Auto) October 23, 2022 9:40pm 0.12 1000/mm3 0.0-0.7 MAIN LAB [id number] [address] [address] Eosinophils # (Auto) November 05, 2022 5:10pm 0.09 1000/mm3 0.0-0.7 MAIN LAB [id number] [address] [address] Eosinophils # (Auto) November 06, 2022 2:34pm 0.10 1000/mm3 0.0-0.7 MAIN LAB [id number] [address] [address] Basophils # (Auto) November 10, 2021 1:00pm 0.03 1000/mm3 0.0-0.1 [facility] [id number] [address] [address] Basophils # (Auto) 2022 8:10pm 0.06 1000/mm3 0.0-0.1 [facility] [id number] [address] [address] Basophils # (Auto) April 06, 2022 11:27am 0.04 1000/mm3 0.0-0.1 [facility] [id number] [address] [address] Basophils # (Auto) August 28, 2022 5:10pm 0.03 1000/mm3 0.0-0.1 [facility] [id number] [address] [address] Basophils # (Auto) September 17, 2022 12:25am 0.04 1000/mm3 0.0-0.1 [facility] [id number] [address] [address] Basophils # (Auto) October 16, 2022 4:04pm 0.05 1000/mm3 0.0-0.1 [facility] [id number] [address] [address] Basophils # (Auto) October 23, 2022 9:40pm 0.04 1000/mm3 0.0-0.1 [facility] [id number] [address] [address] Basophils # (Auto) November 05, 2022 5:10pm 0.05 1000/mm3 0.0-0.1 [facility] [id number] [address] [place] [address] Basophils # (Auto) November 06, 2022 2:34pm 0.04 1000/mm3 0.0-0.1 MAIN LAB [id number] [address] [address] Absolute Immature Granulocyte (auto November 10, 2021 1:00pm 0.0 0-1 MAIN LAB [id number] [address] [address] Absolute Immature Granulocyte (auto 2022 8:10pm 0.0 0-1 MAIN LAB [id number] [address] [address] Absolute Immature Granulocyte (auto April 06, 2022 11:27am 0.0 0-1 MAIN LAB [id number] [address] [address] Absolute Immature Granulocyte (auto August 28, 2022 5:10pm 0.0 0-1 MAIN LAB [id number] [address] [address] Absolute Immature Granulocyte (auto September 17, 2022 12:25am 0.0 0-1 MAIN LAB [id number] [address] [address] Absolute Immature Granulocyte (auto October 16, 2022 4:04pm 0.0 0-1 MAIN LAB [id number] [address] [address] Absolute Immature Granulocyte (auto October 23, 2022 9:40pm 0.0 0-1 MAIN LAB [id number] [address] [address] Absolute Immature Granulocyte (auto November 05, 2022 5:10pm 0.0 0-1 MAIN LAB [id number] [address] [address] Absolute Immature Granulocyte (auto November 06, 2022 2:34pm 0.0 0-1 MAIN LAB [id number] [address] [address] Differential Method November 10, 2021 1:00pm Automated MAIN LAB [id number] [address] [address] Differential Method 2022 8:10pm Automated MAIN LAB [id number] [address] [address] Differential Method April 06, 2022 11:27am Automated MAIN LAB [id number] [address] [place] [address] Differential Method August 28, 2022 5:10pm Automated MAIN LAB [id number] [address] [place] [address] Differential Method September 17, 2022 12:25am Automated MAIN LAB [id number] [address] [place] [address] Differential Method October 16, 2022 4:04pm Automated MAIN LAB [id number] [address] [place] [address] Differential Method October 23, 2022 9:40pm Automated MAIN LAB [id number] [address] [address] Differential Method November 05, 2022 5:10pm Automated MAIN LAB [id number] [address] [address] Differential Method November 06, 2022 2:34pm Automated MAIN LAB [id number] [address] [address] Erythrocyte Sedimentatio n Rate August 28, 2022 5:10pm 10 mm/hr 0-15 MAIN LAB [id number] [address] [address] Erythrocyte Sedimentatio n Rate November 06, 2022 2:34pm 11 mm/hr 0-15 MAIN LAB [id number] [address] [address] Prothrombin Time November 06, 2022 3:21pm 10.6 SECONDS 9.6-11.2 MAIN LAB [id number] [address] [address] Prothromb Time Internationa l Ratio November 06, 2022 3:21pm 1.0 2.0-3.0 INR value valid only on patients on stabilized warfarin therapy. The recommended therapeutic range for warfarin (Coumadin) for most clinical indications is an INR of 2.0-3.0. An INR of 2.5-3.5 is recommended for patients with mechanical heart valves. MAIN LAB [id number] [address] [address] Activated Partial Thromboplast Time November 06, 2022 3:21pm 22.8 SECONDS 21.6-36.0 A target of 1.5-2.5 times the mean of the normal reference range is considered therapeutic. NOTE: APTT must NOT be used to monitor LMWH therapy. Contact [facility] for monitoring information. MAIN LAB [id number] [address] [address] Serum Test, Qualitative April 06, 2022 11:27am Negative NEGATIVE MAIN LAB [id number] [address] [address] Sodium Level November 10, 2021 1:00pm 139 mmol/L 137-145 MAIN LAB [id number] [address] [address] Sodium Level 2022 8:10pm 140 mmol/L 137-145 MAIN LAB [id number] [address] [address] Sodium Level April 06, 2022 11:27am 142 mmol/L 137-145 MAIN LAB [id number] [address] [address] Potassium Level November 10, 2021 1:00pm 4.2 mmol/L 3.6-5.0 MAIN LAB [id number] [address] [address] Potassium Level 2022 8:10pm 3.7 mmol/L 3.6-5.0 MAIN LAB [id number] [address] [address] Potassium Level April 06, 2022 11:27am 3.7 mmol/L 3.6-5.0 MAIN LAB [id number] [address] [address] Chloride Level November 10, 2021 1:00pm 104 mmol/L 98-107 MAIN LAB [id number] [address] [address] Chloride Level 2022 8:10pm 102 mmol/L 98-107 MAIN LAB [id number] [address] [address] Chloride Level April 06, 2022 11:27am 106 mmol/L 98-107 MAIN LAB [id number] [address] [address] Carbon Dioxide Level November 10, 2021 1:00pm 24 mmol/L 22-30 MAIN LAB [id number] [address] [address] Carbon Dioxide Level 2022 8:10pm 30 mmol/L 22-30 MAIN LAB [id number] [address] [address] Carbon Dioxide Level April 06, 2022 11:27am 27 mmol/L 22-30 MAIN LAB [id number] [address] [address] Anion Gap November 10, 2021 1:00pm 11 7-16 MAIN LAB [id number] [address] [address] Anion Gap 2022 8:10pm 8 7-16 MAIN LAB [id number] [address] [address] Anion Gap April 06, 2022 11:27am 9 7-16 MAIN LAB [id number] [address] [address] Blood Urea Nitrogen November 10, 2021 1:00pm 7 mg/dL 7-17 MAIN LAB [id number] [address] [address] Blood Urea Nitrogen 2022 8:10pm 8 mg/dL 7-17 MAIN LAB [id number] [address] [address] Blood Urea Nitrogen April 06, 2022 11:27am 10 mg/dL 7-17 MAIN LAB [id number] [address] [address] Creatinine November 10, 2021 1:00pm 0.76 mg/dL 0.52-1.04 MAIN LAB [id number] [address] [address] Creatinine 2022 8:10pm 0.66 mg/dL 0.52-1.04 MAIN LAB [id number] [address] [address] Creatinine April 06, 2022 11:27am 0.73 mg/dL 0.52-1.04 MAIN LAB [id number] [address] [address] Glomerular Filtration Rate Calc November 10, 2021 1:00pm > 60 mL/min >60.0 MAIN LAB [id number] [address] [address] Glomerular Filtration Rate Calc 2022 8:10pm > 60 mL/min >60.0 MAIN LAB [id number] [address] [address] Glomerular Filtration Rate Calc April 06, 2022 11:27am > 60 mL/min >60.0 MAIN LAB [id number] [address] [address] Glucose Level November 10, 2021 1:00pm 95 mg/dL 70-100 MAIN LAB [id number] [address] [address] Glucose Level 2022 8:10pm 97 mg/dL 70-100 MAIN LAB [id number] [address] [address] Glucose Level April 06, 2022 11:27am 90 mg/dL 70-100 MAIN LAB [id number] [address] [address] Calcium Level November 10, 2021 1:00pm 9.6 mg/dL 8.4-10.2 MAIN LAB [id number] [address] [address] Calcium Level 2022 8:10pm 9.2 mg/dL 8.4-10.2 MAIN LAB [id number] [address] [address] Calcium Level April 06, 2022 11:27am 8.9 mg/dL 8.4-10.2 MAIN LAB [id number] [address] [address] Calcium Adjusted for Albumin April 06, 2022 11:27am 8.7 mg/dL 8.4-10.2 MAIN LAB [id number] [address] [address] Total Bilirubin April 06, 2022 11:27am 0.5 mg/dL 0.2-1.3 MAIN LAB [id number] [address] [address] Aspartate Amino Transf (AST/SGOT) April 06, 2022 11:27am 46 U/L 14-36 MAIN LAB [id number] [address] [address] Alanine Aminotransfe rase (ALT/SGPT) April 06, 2022 11:27am 35 U/L <35 MAIN LAB [id number] [address] [address] Total Protein April 06, 2022 11:27am 7.4 g/dL 6.3-8.2 MAIN LAB [id number] [address] [address] Albumin April 06, 2022 11:27am 4.6 g/dL 3.5-5.0 MAIN LAB [id number] [address] [address] Alkaline Phosphatase April 06, 2022 11:27am 52 U/L 38-126 MAIN LAB [id number] [address] [address] Lipase April 06, 2022 11:27am 37 U/L 23-300 MAIN LAB [id number] [address] [address] Sodium Level August 28, 2022 4:05pm 137 mmol/L 137-145 MAIN LAB [id number] [address] [address] Sodium Level September 17, 2022 12:25am 140 mmol/L 137-145 MAIN LAB [id number] [address] [address] Sodium Level October 16, 2022 4:04pm 139 mmol/L 137-145 MAIN LAB [id number] [address] [address] Sodium Level October 23, 2022 9:40pm 141 mmol/L 137-145 MAIN LAB [id number] [address] [address] Sodium Level November 05, 2022 5:10pm 140 mmol/L 137-145 MAIN LAB [id number] [address] [address] Sodium Level November 06, 2022 2:34pm 141 mmol/L 137-145 MAIN LAB [id number] [address] [address] Potassium Level August 28, 2022 4:05pm 3.9 mmol/L 3.6-5.0 MAIN LAB [id number] [address] [address] Potassium Level September 17, 2022 12:25am 3.9 mmol/L 3.6-5.0 MAIN LAB [id number] [address] [address] Potassium Level October 16, 2022 4:04pm 3.4 mmol/L 3.6-5.0 MAIN LAB [id number] [address] [address] Potassium Level October 23, 2022 9:40pm 3.7 mmol/L 3.6-5.0 MAIN LAB [id number] [address] [address] Potassium Level November 05, 2022 5:10pm 4.1 mmol/L 3.6-5.0 MAIN LAB [id number] [address] [address] Potassium Level November 06, 2022 2:34pm 3.7 mmol/L 3.6-5.0 MAIN LAB [id number] [address] [address] Chloride Level August 28, 2022 4:05pm 104 mmol/L 98-107 MAIN LAB [id number] [address] [address] Chloride Level September 17, 2022 12:25am 106 mmol/L 98-107 MAIN LAB [id number] [address] [address] Chloride Level October 16, 2022 4:04pm 101 mmol/L 98-107 MAIN LAB [id number] [address] [address] Chloride Level October 23, 2022 9:40pm 105 mmol/L 98-107 MAIN LAB [id number] [address] [address] Chloride Level November 05, 2022 5:10pm 104 mmol/L 98-107 MAIN LAB [id number] [address] [address] Chloride Level November 06, 2022 2:34pm 104 mmol/L 98-107 MAIN LAB [id number] [address] [address] Carbon Dioxide Level August 28, 2022 4:05pm 22 mmol/L 22-30 MAIN LAB [id number] [address] [address] Carbon Dioxide Level September 17, 2022 12:25am 23 mmol/L 22-30 MAIN LAB [id number] [address] [address] Carbon Dioxide Level October 16, 2022 4:04pm 23 mmol/L 22-30 MAIN LAB [id number] [address] [address] Carbon Dioxide Level October 23, 2022 9:40pm 27 mmol/L 22-30 MAIN LAB [id number] [address] [address] Carbon Dioxide Level November 05, 2022 5:10pm 25 mmol/L 22-30 MAIN LAB [id number] [address] [address] Carbon Dioxide Level November 06, 2022 2:34pm 26 mmol/L 22-30 MAIN LAB [id number] [address] [address] Anion Gap August 28, 2022 4:05pm 11 7-16 MAIN LAB [id number] [address] [address] Anion Gap September 17, 2022 12:25am 11 7-16 MAIN LAB [id number] [address] [address] Anion Gap October 16, 2022 4:04pm 15 7-16 MAIN LAB [id number] [address] [address] Anion Gap October 23, 2022 9:40pm 9 7-16 MAIN LAB [id number] [address] [address] Anion Gap November 05, 2022 5:10pm 11 7-16 MAIN LAB [id number] [address] [address] Anion Gap November 06, 2022 2:34pm 11 7-16 MAIN LAB [id number] [address] [address] Blood Urea Nitrogen August 28, 2022 4:05pm 10 mg/dL 7-17 MAIN LAB [id number] [address] [address] Blood Urea Nitrogen September 17, 2022 12:25am 10 mg/dL 7-17 MAIN LAB [id number] [address] [address] Blood Urea Nitrogen October 16, 2022 4:04pm 9 mg/dL 7-17 MAIN LAB [id number] [address] [address] Blood Urea Nitrogen October 23, 2022 9:40pm 8 mg/dL 7-17 MAIN LAB [id number] [address] [address] Blood Urea Nitrogen November 05, 2022 5:10pm 10 mg/dL 7-17 MAIN LAB [id number] [address] [address] Blood Urea Nitrogen November 06, 2022 2:34pm 10 mg/dL 7-17 MAIN LAB [id number] [address] [address] Creatinine August 28, 2022 4:05pm 0.58 mg/dL 0.52-1.04 MAIN LAB [id number] [address] [address] Creatinine September 17, 2022 12:25am 0.60 mg/dL 0.52-1.04 MAIN LAB [id number] [address] [address] Creatinine October 16, 2022 4:04pm 0.90 mg/dL 0.52-1.04 MAIN LAB [id number] [address] [address] Creatinine October 23, 2022 9:40pm 0.80 mg/dL 0.52-1.04 MAIN LAB [id number] [address] [address] Creatinine November 05, 2022 5:10pm 0.80 mg/dL 0.52-1.04 MAIN LAB [id number] [address] [address] Creatinine November 06, 2022 2:34pm 0.70 mg/dL 0.52-1.04 MAIN LAB [id number] [address] [address] Glomerular Filtration Rate Calc August 28, 2022 4:05pm > 60 mL/min >60.0 MAIN LAB [id number] [address] [address] Glomerular Filtration Rate Calc September 17, 2022 12:25am 129 mL/min >60.0 MAIN LAB [id number] [address] [address] Glomerular Filtration Rate Calc October 16, 2022 4:04pm 92 mL/min >60.0 MAIN LAB [id number] [address] [address] Glomerular Filtration Rate Calc October 23, 2022 9:40pm 106 mL/min >60.0 MAIN LAB [id number] [address] [address] Glomerular Filtration Rate Calc November 05, 2022 5:10pm 106 mL/min >60.0 MAIN LAB [id number] [address] [address] Glomerular Filtration Rate Calc November 06, 2022 2:34pm 125 mL/min >60.0 MAIN LAB [id number] [address] [address] Glucose Level August 28, 2022 4:05pm 83 mg/dL 70-100 MAIN LAB [id number] [address] [address] Glucose Level September 17, 2022 12:25am 91 mg/dL 70-100 MAIN LAB [id number] [address] [address] Glucose Level October 16, 2022 4:04pm 92 mg/dL 70-100 MAIN LAB [id number] [address] [address] Glucose Level October 23, 2022 9:40pm 93 mg/dL 70-100 MAIN LAB [id number] [address] [address] Glucose Level November 05, 2022 5:10pm 87 mg/dL 70-100 MAIN LAB [id number] [address] [address] Glucose Level November 06, 2022 2:34pm 94 mg/dL 70-100 MAIN LAB [id number] [address] [address] Calcium Level August 28, 2022 4:05pm 9.1 mg/dL 8.4-10.2 MAIN LAB [id number] [address] [address] Calcium Level September 17, 2022 12:25am 8.9 mg/dL 8.4-10.2 MAIN LAB [id number] [address] [address] Calcium Level October 16, 2022 4:04pm 9.9 mg/dL 8.4-10.2 MAIN LAB [id number] [address] [address] Calcium Level October 23, 2022 9:40pm 8.6 mg/dL 8.4-10.2 MAIN LAB [id number] [address] [address] Calcium Level November 05, 2022 5:10pm 8.7 mg/dL 8.4-10.2 MAIN LAB [id number] [address] [address] Calcium Level November 06, 2022 2:34pm 8.9 mg/dL 8.4-10.2 MAIN LAB [id number] [address] [address] Calcium Adjusted for Albumin August 28, 2022 4:05pm 8.9 mg/dL 8.4-10.2 MAIN LAB [id number] [address] [address] Calcium Adjusted for Albumin September 17, 2022 12:25am 8.8 mg/dL 8.4-10.2 MAIN LAB [id number] [address] [address] Calcium Adjusted for Albumin October 16, 2022 4:04pm 9.2 mg/dL 8.4-10.2 MAIN LAB [id number] [address] [address] Calcium Adjusted for Albumin November 05, 2022 5:10pm 8.7 mg/dL 8.4-10.2 MAIN LAB [id number] [address] [address] Calcium Adjusted for Albumin November 06, 2022 2:34pm 8.7 mg/dL 8.4-10.2 MAIN LAB [id number] [address] [address] Albumin August 28, 2022 4:05pm 4.5 g/dL 3.5-5.0 MAIN LAB [id number] [address] [address] Albumin September 17, 2022 12:25am 4.4 g/dL 3.5-5.0 MAIN LAB [id number] [address] [address] Albumin October 16, 2022 4:04pm 5.2 g/dL 3.5-5.0 MAIN LAB [id number] [address] [address] Albumin November 05, 2022 5:10pm 4.3 g/dL 3.5-5.0 MAIN LAB [id number] [address] [address] Albumin November 06, 2022 2:34pm 4.5 g/dL 3.5-5.0 MAIN LAB [id number] [address] [address] Total Protein August 28, 2022 4:05pm 7.3 g/dL 6.3-8.2 MAIN LAB [id number] [address] [address] Total Protein September 17, 2022 12:25am 7.0 g/dL 6.3-8.2 MAIN LAB [id number] [address] [address] Total Protein October 16, 2022 4:04pm 9.6 g/dL 6.3-8.2 MAIN LAB [id number] [address] [address] Total Protein November 05, 2022 5:10pm 7.2 g/dL 6.3-8.2 MAIN LAB [id number] [address] [address] Total Protein November 06, 2022 2:34pm 7.6 g/dL 6.3-8.2 MAIN LAB [id number] [address] [address] Alkaline Phosphatase August 28, 2022 4:05pm 56 U/L 38-126 MAIN LAB [id number] [address] [address] Alkaline Phosphatase September 17, 2022 12:25am 41 U/L 38-126 MAIN LAB [id number] [address] [address] Alkaline Phosphatase October 16, 2022 4:04pm 67 U/L 38-126 MAIN LAB [id number] [address] [address] Alkaline Phosphatase November 05, 2022 5:10pm 52 U/L 38-126 MAIN LAB [id number] [address] [address] Alkaline Phosphatase November 06, 2022 2:34pm 47 U/L 38-126 MAIN LAB [id number] [address] [address] Alanine Aminotransfe rase (ALT/SGPT) August 28, 2022 4:05pm 33 U/L <35 Per [facility]o Clinical Diagnostic's notification dated July 18, 2022, note that ascorbic acid concentrations of 100 mg/dL may produce a negative bias greater than 12.5%. MAIN LAB [id number] [address] [address] Alanine Aminotransfe rase (ALT/SGPT) September 17, 2022 12:25am 23 U/L <35 Per [facility] Clinical Diagnostic's notification dated July 18, 2022, note that ascorbic acid concentrations of 100 mg/dL may produce a negative bias greater than 12.5%. MAIN LAB [id number] [address] [address] Alanine Aminotransfe rase (ALT/SGPT) October 16, 2022 4:04pm 38 U/L <35 Per [facility]o Clinical Diagnostic's notification dated July 18, 2022, note that ascorbic acid concentrations of 100 mg/dL may produce a negative bias greater than 12.5%. MAIN LAB [id number] [address] [address] Alanine Aminotransfe rase (ALT/SGPT) November 05, 2022 5:10pm 24 U/L <35 Per [facility] Clinical Diagnostic's notification dated July 18, 2022, note that ascorbic acid concentrations of 100 mg/dL may produce a negative bias greater than 12.5%. MAIN LAB [id number] [address] [address] Alanine Aminotransfe rase (ALT/SGPT) November 06, 2022 2:34pm 26 U/L <35 Per [facility] Clinical Diagnostic's notification dated July 18, 2022, note that ascorbic acid concentrations of 100 mg/dL may produce a negative bias greater than 12.5%. MAIN LAB [id number] [address] [address] Aspartate Amino Transf (AST/SGOT) August 28, 2022 4:05pm 36 U/L 14-36 MAIN LAB [id number] [address] [address] Aspartate Amino Transf (AST/SGOT) September 17, 2022 12:25am 39 U/L 14-36 MAIN LAB [id number] [address] [address] Aspartate Amino Transf (AST/SGOT) October 16, 2022 4:04pm 36 U/L 14-36 MAIN LAB [id number] [address] [address] Aspartate Amino Transf (AST/SGOT) November 05, 2022 5:10pm 29 U/L 14-36 MAIN LAB [id number] [address] [address] Aspartate Amino Transf (AST/SGOT) November 06, 2022 2:34pm 32 U/L 14-36 MAIN LAB [id number] [address] [address] Total Bilirubin August 28, 2022 4:05pm 0.4 mg/dL 0.2-1.3 MAIN LAB [id number] [address] [address] Total Bilirubin September 17, 2022 12:25am 0.3 mg/dL 0.2-1.3 MAIN LAB [id number] [address] [address] Total Bilirubin October 16, 2022 4:04pm 0.6 mg/dL 0.2-1.3 MAIN LAB [id number] [address] [address] Total Bilirubin November 05, 2022 5:10pm 0.3 mg/dL 0.2-1.3 MAIN LAB [id number] [address] [address] Total Bilirubin November 06, 2022 2:34pm 0.4 mg/dL 0.2-1.3 MAIN LAB [id number] [address] [address] Lipase September 17, 2022 12:25am 43 U/L 23-300 MAIN LAB [id number] [address] [address] Lipase November 05, 2022 5:10pm 55 U/L 23-300 MAIN LAB [id number] [address] [address] Lipase November 06, 2022 2:34pm 43 U/L 23-300 MAIN LAB [id number] [address] [address] Lactic Acid Level October 16, 2022 4:04pm 1.0 mmol/L 0.7-2.1 MAIN LAB [id number] [address] [address] Lactic Acid Level October 23, 2022 9:40pm 1.2 mmol/L 0.7-2.1 MAIN LAB [id number] [address] [address] Lactic Acid Level November 05, 2022 5:10pm 1.2 mmol/L 0.7-2.1 MAIN LAB [id number] [address] [address] C-Reactive Protein August 28, 2022 4:05pm 6.0 mg/L 5-10 MAIN LAB [id number] [address] [address] C-Reactive Protein October 16, 2022 4:04pm 8.2 mg/L 5-10 MAIN LAB [id number] [address] [address] C-Reactive Protein November 06, 2022 2:34pm < 5.0 mg/L 5-10 MAIN LAB [id number] [address] [address] HCG Beta Subunit November 06, 2022 2:34pm < 2.39 mIU/mL 2.39-11698 Weeks after Conception U/L 1 Week 5-502 Weeks 40-1,0003 Weeks 100-4,0004 Weeks 800-10,0005-6 Weeks 5,000-100,0007- 8 Weeks 20,000-200,0009 -12 Weeks 10,000-200,0002 nd Trimester 8,000-50,0003rd Trimester 6,000-50,000Non - Females Less than 5The results of this assay can be falsely decreased in patients who consume Biotin. MAIN LAB [id number] [address] [address] Chlamydia trachomatis RNA August 28, 2022 7:50pm Negative Negative [facility] [id number] Neisseria gonorrhoeae RNA August 28, 2022 7:50pm Negative Negative [facility]/GC SOURCES: ENDOCERVICSourc e:CERVIXTest performed or referred by[address] [employer] [id number] Microbiology Results Procedure Source Result Collection Date/Time Result Date/Time Result Comment Performing Site Wet Prep Vaginal August 28, 2022 8:16pm MAIN LAB [id number] [address] [address] Diagnostic Imaging Reports Author Ascencion Mariee [facility] Authored September 17, 2022 3:57am Report Dictated Date/Time Dictated By Status Radiology Report September 17, 2022 3:57am George Dias completed [facility] CAT SCAN REPORT PATIENT NAME: EDUARDO PAYAN [id number] DATE OF : 2000 ATTENDING/ER PHYSICIAN: ER/ATTENDING PHYSICIAN: Konstantin Villaseñor MD PRIMARY CARE PHYS: No Pcp ADMITTING PHYSICIAN: CONSULTING PHYSICIAN: PROCEDURE DATE: 09/16/22 REPORT STATUS: Signed DICTATING PHYSICIAN: Ascencion Mariee MD REASON FOR EXAM: low abd pain, h/o multiple surgeries PROCEDURE INFORMATION: Exam: CT Abdomen And Pelvis With Contrast Exam date and time: 09/17/2022 1:49 AM Age: 22 years old Clinical indication: Abdominal pain; Prior surgery; Surgery type: Colostomy bag, appendectomy, fistula; Patient HX: PT has been having lower abd pain for few days [place] who gave PT iv meds. PT was driving to this area in the car on the way here and she had an episode where she felt she could not breathe. 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 PT also feels she has a UTI. ( end ); Additional info: Low abd pain, h/o multiple surgeries TECHNIQUE: Imaging protocol: Computed tomography of the abdomen and pelvis with contrast. Radiation optimization: All CT scans at this facility use at least one of these dose optimization techniques: automated exposure control; mA and/or kV adjustment per patient size (includes targeted exams where dose is matched to clinical indication); or iterative reconstruction. Contrast material: OMNIPAQUE 350; Contrast volume: 95 ml; Contrast route: INTRAVENOUS (IV); REPORTING DATA: Count of CT and Cardiac NM exams in prior 12 months: This patient has received 0 known CTs and 0 known cardiac nuclear medicine studies in the 12 months prior to the current study. COMPARISON: CT Abd Pel w/ Contrast 08/07/2021 2:27 PM FINDINGS: Liver: Unremarkable. No mass. Gallbladder and bile ducts: No calcified stones. No ductal dilation. Pancreas: Unremarkable. No ductal dilation. Spleen: Unremarkable. No splenomegaly. Adrenal glands: Normal. No mass. Kidneys and ureters: Unremarkable. No hydronephrosis. Stomach and bowel: Left lower quadrant colostomy in place. Anel pouch identified. Appendix: No evidence of appendicitis. Intraperitoneal space: No free air. Trace pelvic fluid within physiologic range. Vasculature: No abdominal aortic aneurysm. Lymph nodes: No enlarged lymph nodes. Urinary bladder: Unremarkable as visualized. Reproductive: Corpus luteum on the left, otherwise, uterus and adnexa unremarkable. Bones/joints: Unremarkable. No acute fracture. Soft tissues: Unremarkable. IMPRESSION: 1. Postsurgical changes with partial sigmoid colon resection. Anel pouch identified. Colostomy in the left lower quadrant. No mechanical bowel obstruction. No mucosal thickening. 2. No CT evidence for acute pyelonephritis. 3. Urinary bladder is grossly unremarkable. Electronically Signed By : Ascencion Mariee MD dd: 09/17/22 0357 09/17/22 0357 Author Ellen Bryan [facility] Authored October 16, 2022 7:24p m Report Dictated Date/Time Dictated By Status Radiology Report October 16, 2022 7:24pm Ellen Bryan MD completed [facility] CAT SCAN REPORT PATIENT NAME: EDUARDO PAYAN 9356 DATE OF : 2000 ATTENDING/ER PHYSICIAN: ER/ATTENDING PHYSICIAN: Elias Castro PA-C PRIMARY CARE PHYS: Not Given ADMITTING PHYSICIAN: CONSULTING PHYSICIAN: PROCEDURE DATE: 10/16/22 REPORT STATUS: Signed with Addenda DICTATING PHYSICIAN: Ellen Bryan MD REASON FOR EXAM: left side severe abd pain ADDENDUM Additionally, a 3 mm hypervascular rounded structure in mid left renal medullary region, on this phase of imaging, 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 This could be further worked up with a CTA of the abdomen. 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 Radiation optimization: All CT scans at this facility use at least one of these dose optimization techniques: automated exposure control; mA and/or kV adjustment per patient size (includes targeted exams where dose is matched to clinical indication); or iterative reconstruction. Contrast material: OMNIPAQUE 350; Contrast volume: 96 ml; Contrast route: INTRAVENOUS (IV); REPORTING DATA: Count of CT and Cardiac NM exams in prior 12 months: This patient has received [address] and 0 known cardiac nuclear medicine studies in the 12 months prior to the current study. COMPARISON: CT Abd Pel w/ Contrast 09/17/2022 01:49 FINDINGS: Liver: No mass. Gallbladder and bile ducts: No calcified stones. No ductal dilation. Pancreas: No ductal dilation. No masses. Spleen: No splenomegaly or focal lesions. Adrenal glands: No mass. Kidneys and ureters: No hydronephrosis. No renal masses. Stomach and bowel: distal colectomy. Descending colostomy, satisfactory appearance. No colitis, diverticular disease, enteritis or obstruction. Appendix: Appendectomy. Intraperitoneal space: Trace cul-de-sac free fluid within physiologic limits. No abscess or free air. Vasculature: No abdominal aortic aneurysm. Lymph nodes: No significantly enlarged lymph nodes. Urinary bladder: Unremarkable as visualized. Reproductive: Normal CT appearance of the uterus. Normal CT appearance of the right adnexa. Normal CT appearance of the left adnexa. Bones/joints: No acute fracture. Soft tissues: No suspicious lesions. IMPRESSION: 1. No acute findings. 2. Distal colectomy. Descending colostomy, satisfactory appearance. 3. Appendectomy. Electronically Signed By : Ellen Bryan MD dd: 10/16/22192310/16/221923 Author Stevo Douglass [facility] Authored October 23, 2022 11:4 8pm Report Dictated Date/Time Dictated By Status Radiology Report October 23, 2022 11:48pm Stevo Douglass MD completed [facility] CAT SCAN REPORT PATIENT NAME: EDUARDO [...] to have surgery on Monday 11am at [facility]. PT C/O heavy vaginal bleeding since yesterday [...] Signed By : Stevo Douglass MD dd: 10/23/228 10/23/222347 Vital Signs Vital Reading Result Reference Range Collection Date/Time Weight 77.11 kg November 10, 2021 11:44am Body Temperature 98.8 [degF] 97.6-99.6 November 10, 2021 11:44am Heart Rate 78 /min 60-100 November 10, 2021 5:51pm Respiratory rate 18 /min -November 10, 2021 5:51pm Oxygen saturation by Pulse [...] 06, 2022 12:15pm Respiratory rate 18 /min 12-April 062021 12:15pm Oxygen saturation by Pulse oximetry [...] 2022 4 :10am Respiratory rate 16 /min -September 17 4:10am Oxygen saturation by Pulse oximetry [...] 24, 2022 5:35am Respiratory rate 16 /min -October 24, 2022 5:35am Oxygen saturation by Pulse oximetry 97 % 95-100 October 24, 2022 5:35 am BP Systolic 112 mm[Hg] 100-140 October 24, 2022 5:35am BP Diastolic 54 mm[Hg] 50-85 October 24, 2022 5:35am Weight 72.57 kg November 05, 2022 4:20pm Body Temperature 98.6 [degF] 97.6-99.6 November 05, 2022 5:35pm Heart Rate 73 /min 60-100 November 05, 2022 7:50pm Respiratory rate 14 /min -November 05, 2022 7:50pm Oxygen saturation by Pulse oximetry 94 % 95-100 November 05, 2022 7:50 pm BP Systolic 115 mm[Hg] 100-140 November 05, 2022 7:30pm BP Diastolic 67 mm[Hg] 50-85 November 05, 2022 7:30pm Weight 74.11 kg November 06, 2022 1:43pm Body Temperature 97.3 [degF] 97.6-99.6 November 06, 2022 1:43pm Heart Rate 85 /min 60-100 November 06, 2022 3:10pm Respiratory rate 18 /min -November 06, 2022 3:10pm Oxygen saturation by Pulse oximetry 98 % 95-100 November 06, 2022 3:10 pm BP Systolic 133 mm[Hg] 100-140 November 06, 2022 3:10pm BP Diastolic 86 mm[Hg] 50-85 November 06, 2022 3:10pm Advance Directives Advance Directive Response Recorded Date/ Time Does patient have an Advance Directive? No 2022 7:29pm Does patient have a COLST form? No 2022 7:29pm Insurance Providers Guarantor EDUARDO COATSGerry Address [address] [address] Contact Info. Home Phone: Payer Policy Id Coverage Id Subscriber's Name Subscriber Id Effective Date Expiration Date MIGUEL ANGEL MCNAMARA [id number] EDUARDO PAYAN [id number] 000 SELF PAY Self N/A Encounters Encounter Location(s) Arrival/Admit Date Discharge/Depart Date Provider(s) Departed Emergency [facility] November 10, 2021 11:22am November 10, 2021 5:45pm null Departed Emergency [facility] 2022 5:23pm 2022 9:55pm null Departed Emergency [facility] February 20, 2022 2:39pm February 20, 2022 3:42pm null Departed Emergency [facility] March 19, 2022 2:34pm March 19, 2022 4:09pm null Departed Emergency [facility] April 06, 2022 11:08am April 06, 2022 12:29pm null Depart Emergency [facility] August 28, 2022 1:47pm August 28, 2022 10:20pm null Departed Emergency [facility] September 16, 2022 10:06pm September 17, 2022 4:32am null Departed Emergency [facility] October 16, 2022 2:30pm October 16, 2022 9:24pm null Departed Emergency [facility] October 23, 2022 7:18pm October 24, 2022 6:00am null Departed Emergency [facility] November 05, 2022 4:18pm November 05, 2022 8:03pm null Departed Emergency [facility] November 06, 2022 1:39pm November 06, 2022 4:48pm null Functional Status Observation Response Date Recorded Living Situation Home November 06, 2022 4:48pm Mental Status Observation Response Date Recorded Comprehension Ability Understands Concepts [facility] 2021 11:53am Mood/Behavior Appropriate April 06 11:53am Anxious April 06 11:53am Comprehension Ability Understands Concepts September 172022 12:00am Speech Appropriate September 17, 2022 12 :00am Mood/Behavior Appropriate September 17, 2022 12 :00am Comprehension Ability Understands Concepts November 05, 2022 4:51pm Mood/Behavior Anxious November 05, 2022 4:51pm Comprehension Ability Understands Concepts 2021 3:30pm Mood/Behavior Appropriate March 19 3:30pm Comprehension Ability Understands Concepts November 06, 2022 2:25pm Speech Appropriate November 06, 2022 2:25pm Clear November 06, 2022 2:25pm Mood/Behavior Appropriate November 06, 2022 2:25pm Anxious November 06, 2022 2:25pm Plan of Treatment Future Tests Future scheduled test information is unavailable Pending Tests Pending diagnostic test information is unavailable Future Visits Future appointment information is unavailable Referrals to Other Providers Reason for Referral Referral Start Date Provider Provider Contact Information Provider Address No Pcp Emely holloway MD Work Phone: [facility] [facility] [facility] [address] [facility] [facility] [id number] [facility] Work Phone: [address] [facility] [phone] No Pcp [facility] Gy[facility] Oncology Work Phone: [address] [facility] [address] [facility] [address] No Pcp No Pcp Not Given Not Given No Pcp Ashlie Ramos Work Phone: [address] [place] [address] No Pcp Not Given Not Given Future Procedures Future procedure information is unavailable Future Medications Future medication information is unavailable Patient Instructions Chronic Pelvic Pain (DC) Abdominal Pain, Adult ED Heavy Periods (DC) Abdominal Pain, Adult ED Anemia Caused by Low Iron, A dult (DC) Abdominal Pain, Adult ED Hospital Discharge Instructions Additional Instructions Please follow-up with your PCP and [place] medical team Patient contact information: Primary phone:[phone] (Note to patient; Please let our registration staff know if this phone number is not correct so we can keep our systems accurate) *Regarding pending labs, you will only be called for positive/abnormal results. Negative/normal results can be found on the patient portal. Suicide Prevention: Dial 988 for immediate access to crisis hotline. Progress Note Author Azalia Stevens [facility] November 06, 2022 5:24pm Note Date/Time November 06, 2022 2:48 pm [facility] ER Physician Documentation PATIENT NAME: EDUARDO PAYAN MRN: [id number] DATE OF : 2000 ATTENDING PHYSICIAN: PRIMARY CARE PHYS: Not Given DICTATING PHYSICIAN: Azalia Stevens NP REPORT STATUS: Signed DOS DATE OF SERVICE: 11/06/22 ED PROVIDER: Azalia Stevens NP PRIMARY CARE PROVIDER: PCP Not Given director data management Triage Note director data management: Chief Complaint Vaginal Bleeding Acuity Level 3 Urgent Triage Note Patient reports she was here yesterday for heavy vaginal bleeding and abdominal pain. Reports bleeding is worse and accompanied by dizziness. Reports has not been able to tolerate her normal medications to helpwith her symptoms. Reports known seizure disorder with two today which is more than normal History of Present Illness The patient is a 22 yo F who presents to [facility] Emergency Department with complaint of ABD COMPLAINT, VAGINAL BLEEDING. This evaluation was initiated on 11/06/22 13:42 Patient is a 22-year-old female with a history of Crohn's/ulcerative colitis with subsequent colostomy, endometriosis, rectovaginal fistula, seizure disorder, von Willebrand's, asthma, and recent PRBC transfusion on 10/24/2022. Patient has a long history of abdominal pain and pelvic pain was diagnosed with a rectovaginal fistula in April 2022 and is due to have a repair in November at [facility] after her MRSA infection is cleared. Patient reports current fistula is 15 to 17 cm long. Patient is on norethindrone to prevent menstrual periods. Patient is confident that her vaginal bleeding is coming from her fistula, not her uterus. Patient was seen in the ED yesterday for vaginal bleeding and vomiting resultingin her being unable to keep down her TXA. Patient presents today with increased pain, increased nausea, increased bleeding, increase in seizure activity today (2 seizures today, patient typically does not have daily seizures), vomiting resulting in her unable to keep down TXA or hydromorphone. Patient was able to tolerate her noon dose of acetaminophen. Patient requesting hydromorphone for her severe pain and Zofran with accompanying Benadryl as she gets hives if she takes Zofran without Benadryl. No fever. No blood noted in colostomy bag. Patient reports she has been wearing tampons to manage the bleeding. She states that every 20 to 30 minutes she goes to the bathroom, removes her tampon and lets the blood drained into the toilet. Patient denies heart palpitations, chest pain, shortness of breath, pronounced fatigue. Patient vaguely references dizziness but is unable to elaborate. Patient localizes her pain to her left lower quadrant, radiating down into her vagina and into her lower back. Review of Systems ROS . ROS as documented in HPI. Past Medical History Medical History Anxiety Asthma Colostomy care Depression Endometriosis History of methicillin resistant staphylococcus aureus (MRSA) (~03/16/21) Surgical History History of appendectomy History of laparoscopy Chemotherapy: No Radiation Therapy: No Other Treatments and Interventions: No OBGYN History endometriosis Social History Smoking Status: Never smoker tobacco type: e-cigarettes Second Hand Smoke Exposure: Yes Hx Alcohol Use: Yes Alcohol intake frequency: a few times a month Alcohol type: hard liquor Date of last use: weekly Hx Substance/Street Drug Use: No Hx Substance Use Treatment: No Port/Fistula/other Powerport: No Fistula/Port: No Isolation Needs Hx of: MRSA [place] Allergies droperidol Allergy (Verified 11/05/22 16:27) anaphylactic shock haloperidol [From Haldol] Allergy (Verified 11/05/22 16:27) rash ibuprofen Allergy (Verified 11/05/22 16:27) ketorolac [From Toradol] Allergy (Verified 11/05/22 16:27) anaphylaxis latex Allergy (Verified 11/05/22 16:27) rash metoclopramide [From Reglan] Allergy (Verified 11/05/22 16:27) Penicillins Allergy (Verified 11/05/22 16:27) hives prochlorperazine [From Compazine] Allergy (Verified 11/05/22 16:27) hives promethazine [From Phenergan] Allergy (Verified 11/05/22 16:27) Home Medications hydroxyzine HCl 100 mg tablet [...] DAILY 09/23/21 norethindrone acetate 5 mg tablet 20 mg PO DAILY 01/10/22 tranexamic acid 650 mg tablet mg PO 03/19/22 tizanidine 4 mg capsule mg 09/16/22 fluticasone propionate 115 mcg-salmeterol 21 mcg/actuation HFA inhaler (Advair HFA) inhalation 10/23/22 hydromorphone 2 mg tablet mg 10/23/22 hydromorphone 2 mg tablet 2 mg PO Q4-6H PRN pain #10 tabs 10/24/22 diphenhydramine HCl 50 mg capsule 50 mg PO ONCE 11/05/22 [Confirmed 11/05/22] Vital Signs Table Temp Pulse Resp BP Pulse Ox O2 Del Method 11/06/22 13:43 97.3 F L 78 16 138/70 99 Room Air Primary Exam The patient's heart rate is 78, blood pressure is 138/70, temperature is 97.3 F, and respiratory rate is 16. Oxygen saturation is 99%; The patient weighs 74 kg. Detailed Exam Const normally developed, well appearing and non-toxic Skin warm and dry Eyes conjunctivae normal HENT head: normocephalic mouth/throat: poor dentition and edentulous (Partially) ears: external ears normal Neck full ROM Chest normal inspection of the chest Resp clear to auscultation and equal breath sounds; negative tachypnea, labored or has cough Card regular rhythm and no murmur GI soft, non-distended and tender to palpation; negative guarding + Left lower quadrant colostomy -site within normal limits, light brown stool inbag, no visible blood patient declined Musc extremities NL to inspect and well perfused Neuro no focal deficits Psych mental status: mental status grossly normal mood: anxious mood appearance: grossly normal attitude: guarded speech and movement: speech and movement normal thought content: normal thought process: normal Patient evasive regarding which department sees her down at [place] Ordered Tests and Interventions Category Date Time Status IV Insertion (ED) .now Care 11/06/22 14:46 Completed ADD ON TESTING Stat Lab 11/06/22 17:11 Uncollected CBC W/DIFF Stat Lab 11/06/22 14:34 Completed CMP [COMPREHENSIVE METABOLIC PANEL] Stat Lab 11/06/22 14:34 Completed CRP (C-REACTIVE PROTEIN) Stat Lab 11/06/22 14:34 Completed ESR Stat Lab 11/06/22 14:34 Completed LIPASE Stat Lab 11/06/22 14:34 Completed PROTIME/INR Stat Lab 11/06/22 15:21 Completed PTT [PARTIAL THROMBOPLASTIN TIME] Stat Lab 11/06/22 15:21 Completed Ordered Medications Discontinued Medications Diphenhydramine HCl (Diphenhydramine Inj 50 Mg/Ml Vial) 50 mg IV ONCE ONE Stop: 11/06/22 15:34 Last Admin: 11/06/22 15:49 Dose: 50 mg Sodium Chloride (Sodium Chl 0.9%) 1,000 mls @ 0 mls/hr IV .Q0M ONE Stop: 11/06/22 14:47 Last Infusion: 11/06/22 16:40 Dose: Infused Tranexamic Acid (Tranexamic Acid Piggyback) 1,000 mg in 100 mls @ 400 mls/hr IVONCE ONE Stop: 11/06/22 15:32 Last Infusion: 11/06/22 16:09 Dose: Infused Ondansetron HCl (Ondansetron 4 Mg/2 Ml Vial) 4 mg IV ONCE ONE Stop: 11/06/22 15:34 Last Admin: 11/06/22 15:49 Dose: 4 mg Lab Results 11/06/22 15:21: PT 10.6, INR 1.0 L, APTT 22.8 11/06/22 14:34: Sodium 141, Potassium 3.7, Chloride 104, Carbon Dioxide 26, Anion Gap 11, BUN 10, Creatinine 0.70, GFR Calculation 125, Glucose 94, Calcium 8.9, Calcium Adj for Albumin 8.7, Total Bilirubin 0.4, AST 32, ALT 26, Alkaline Phosphatase 47, C-Reactive Protein < 5.0 L, Total Protein 7.6, Albumin 4.5, Lipase 43 11/06/22 14:34: WBC 3.67 L, RBC 4.04 L, Hgb 9.4 L, Hct 31.2 L, MCV 77.2 L, MCH 23.3 L, MCHC 30.1 L, RDW 17.2 H, Plt Count 175, Immature Gran % (Auto) 0.5, Neut% (Auto) 56.7, Lymph % (Auto) 32.7, [place] % (Auto) 6.3, Eos % (Auto) 2.7, Baso % (Auto) 1.1 H, Neut # (Auto) 2.08, Lymph # (Auto) 1.20, [place] # (Auto) 0.23, Eos #(Auto) 0.10, Baso # (Auto) 0.04, Abs Immat Gran (auto) 0.0, Differential Method Automated, ESR 11 Data Review Lab results reviewed and interpreted by Provider, Lab results as noted and Priorlab results were reviewed Leukopenic???no significant change from 11/05/2022 Anemic???essentially unchanged from 11-05-2022 Normal platelet count Normal ESR and CRP Normal CMP Normal lipase Patient did not provide urine sample to evaluate for urinalysis and UPT. Reviewof records, patient with negative UPT on 10/16/2022 POC Test Results: No Data to Display Progress notes Case discussed, imaging and lab work reviewed with Dr. Zapata. Plan for lab work and to connect with patient's team in [place]. Time: 15:20 Update from nursing that patient bled a significant amount on the bathroom floor. Unable to provide urine sample. Beta hCG added onto labs. given that patient endorses some dizziness I will treat with IV TXA in the interim of waiting for CBC. Time: 16:00 Test results reviewed with patient who verbalizes frustration that we have not done anything for her today. Patient reports she called her team in [place], theytold her to come in and she is going to drive down there now. Given her stable vital signs and unchanged lab work I feel this is reasonable. Patient was unable to clarify which team at [facility] follows her/who she spoke with making it challenging for me to connect with her team. Patient reports shewould like to leave now. Azalia Stevens NP Medical Decision Making [facility] Old Records Reviewed: Prior Lab Data, Prior Radiologic Report and Outpatient Records Extensive chart review, patient seen 08/28/2022, 09/16/2022, 10/16/2022, 10/23/2022 and 11/05/2022 for similar symptoms. Patient received a transfusion of PRBCs on the . No acute changes on the last 3 abdominal CTs obtained this month. Patient had a noteworthy drop in her H&H on 10/23 otherwise her anemia has remained stable. Case as reviewed in HPI, physical exam as noted above. At this time patient is stable, well-appearing, nontoxic, and vitals are within normal limits. Patient is stable for discharge to home. Patient encouraged to follow-up with PCP. Results of this evaluation were discussed with patient. Treatment options were reviewed. Risks and benefits discussed. Shared decision making with patient. All questions answered. Return precautions reviewed with patient. Patient verbalizes understanding and is in agreement with plan. Azalia Stevens NP Discharge Plan Provider Discharge Plan Clinical Impression: Vaginal bleeding, Abdominal pain, Rectovaginal fistula, Colostomy in place, VonWillebrand disease, Anemia Patient Disposition: Home/Self Care Activity Restrictions/Additional Instructions: Please follow-up with your PCP and [place] medical team Patient contact information: Primary phone:[phone] (Note to patient; Please let our registration staff know if this phone number isnot correct so we can keep our systems accurate) *Regarding pending labs, you will only be called for positive/abnormal results. Negative/normal results can be found on the patient portal. Suicide Prevention: Dial 988 for immediate access to crisis hotline. Referrals: PCP,Not Given [Primary Care Provider] - Within 1 Week Stand Alone Forms: ED General DC Instructions Prescriptions/Home Medications: No Action sertraline 100 mg Tablet 100 [...] ONCE DAILY norethindrone acetate 5 mg Tablet 20 mg PO DAILY tizanidine 4 mg Capsule diphenhydramine HCl [Benadryl] 50 mg Capsule 50 mg PO ONCE Rx Instructions: given with zofran gabapentin 100 mg Tablet 300 mg PO [...] INHALE 2 PUFFS BY MOUTH TWICE DAILY hydromorphone 2 mg tablet 2 mg PO Q4-6H PRN (Reason: pain) Qty: 10 0RF <Electronically signed by MARIELLA Stevens> [id number] cc: ~
--- OUTSIDE RECORDS SUMMARY | 2022-11-20 17:45 | XMS_ITS | Continuity of Care Document ---
Author Name Unknown Address [address] [place] [id number] Phone [facility] Address [address] [place] [address] Phone Care Team Providers Care Green Chainer Name Role Phone PCP, of Choice Primary Care Provider Unavailabl e Allergies, Adverse Reactions, Alerts Allergen Type Severity Reaction Last Updated Verified Status ketorolac Allergy anaphylaxis October 14, 2020 11:02pm Yes Active latex Allergy October 14, 2020 11:02pm Yes A ctive Penicillins Allergy hives October 14, 2020 11:02pm Yes Active prochlorperazine Allergy hives October 14, 2020 11:02pm Yes Active Medications Medication Status Dose Units Route Directions Qty Days St art Date End Date Instructions Sertraline Active 100 MG PO DAILY October 14, 2020 11:02pm Docusate Sodium Active 50 MG PO TWICE A DAY October 14, 2020 11:02pm Trazodone Active 100 MG PO BEDTIME October 14, 2020 11:02pm Hydroxyzine Hcl Active 100 MG PO BEDTIME October 14, 2020 11:02pm Problems Active Problems Medical Problem Onset Date Status Gastritis Active Microcytic anemia Active Relevant Diagnostic Tests and/or Laboratory Data Laboratory Results Test Date/Time Result Interpretation Reference Range Result Comment Performing Site White Blood Count October 14, 2020 11:38pm 7.41 1000/mm3 4.8-10.8 MA[facility], [address] [place] [address] 92153 Red Blood Count October 14, 2020 11:38pm 4.44 M/mm3 4.20-5.40 MAIN [facility], [address] [place] [address] 84223 Hemoglobin October 14, 2020 11:38pm 9.2 g/dL 12.0-16.0 [facility], [address] [place] [address] 44199 Hematocrit October 14, 2020 11:38pm 30.6 % 37-47 [facility], [address] [place] [address] 58604 Mean Corpuscular Volume October 14, 2020 11:38pm 68.9 fL 81.0-99.0 [facility], [address] [place] [address] 89203 Mean Corpuscular Hemoglobin October 14, 2020 11:38pm 20.7 pg 27-31 MA[facility], [address] [place] [address] 60026 Mean Corpuscular Hemoglobin Concent October 14, 2020 11:38pm 30.1 g/dL 33-37 MA[facility], [address] [place] [address] 62731 Red Cell Distribution Width October 14, 2020 11:38pm 16.8 % 11.5-14.5 [facility], [address] [place] [address] 95214 Platelet Count October 14, 2020 11:38pm 250 1000/mm3 140-440 MA[facility], [address] [place] [address] 70891 Mean Platelet Volume October 14, 2020 11:38pm 10.6 fL 7.4-10.4 [facility], [address] [place] [address] 23742 Neutrophils (%) (Auto) October 14, 2020 11:38pm 60.3 % 40.0-72.0 [facility], [address] [place] [address] 93368 Lymphocytes (%) (Auto) October 14, 2020 11:38pm 29.0 % 17-45 MA[facility], [address] [place] [address] 81131 Monocytes (%) (Auto) October 14, 2020 11:38pm 8.2 % 3-11 MA[facility], [address] [place] [address] 65166 Eosinophils (%) (Auto) October 14, 2020 11:38pm 1.1 % 0-3 [facility], [address] [place] [address] 76061 Basophils (%) (Auto) October 14, 2020 11:38pm 1.3 % 0-1 MA[facility], [address] [place] [address] 71792 Immature Granulocyte % (Auto) October 14, 2020 11:38pm 0.1 % 0-1 [facility], [address] [place] [address] 18859 Neutrophils # (Auto) October 14, 2020 11:38pm 4.46 1000/mm3 1.4-6.5 MA[facility], [address] [place] [address] 01891 Lymphocytes # (Auto) October 14, 2020 11:38pm 2.15 1000/mm3 1.2-3.4 MA[facility], [address] [place] [address] 71368 Monocytes # (Auto) October 14, 2020 11:38pm 0.61 1000/mm3 0.0-0.8 MA[facility], [address] [place] [address] 92905 Eosinophils # (Auto) October 14, 2020 11:38pm 0.08 1000/mm3 0.0-0.7 MA[facility], [address] [place] [address] 86829 Basophils # (Auto) October 14, 2020 11:38pm 0.10 1000/mm3 0.0-0.1 MA[facility] LAB, [address] [place] [address] 26843 Absolute Immature Granulocyte (auto October 14, 2020 11:38pm 0.0 0-1 MA[facility], [address] [place] [address] 59654 Differential Method October 14, 2020 11:38pm Automated MA[facility] LAB, [address] [place] [address] 12322 Prothrombin Time October 14, 2020 11:38pm 10.8 SECONDS 9.6-11.2 MAIN LAB, [address] [place] [address] 26769 Prothromb Time International Ratio October 14, 2020 11:38pm 1.1 2.0-3.0 INR value valid only on patients on stabilized warfarin therapy. The recommended therapeutic range for warfarin (Coumadin) for most clinical indications is an INR of 2.0-3.0. An INR of 2.5-3.5 is recommended for patients with mechanical heart valves. MAIN LAB, [address] [place] [address] 58168 Activated Partial Thromboplast Time October 14, 2020 11:38pm 26.1 SECONDS 21.6-36.0 A target of 1.5-2.5 times the mean of the normal reference range is considered therapeutic. NOTE: APTT must NOT be used to monitor LMWH therapy. Contact [facility] for monitoring information. MAIN LAB, [address] [place] [address] 00057 Urine RBC October 14, 2020 11:45pm 10-20 /hpf MAIN LAB, [address] [place] [address] 34840 Urine WBC October 14, 2020 11:45pm 0-2 /hpf MAIN LAB, [address] [place] [address] 31269 Urine Bacteria October 14, 2020 11:45pm 1+ /hpf NONE SEEN MAIN LAB, [address] [place] [address] 02398 Urine Mucus October 14, 2020 11:45pm Present MAIN LAB, [address] [place] [address] 88849 Urine Culture Done October 14, 2020 11:45pm No CULTURE NOT INDICATED. MAIN LAB, [address] [place] [address] 50366 Sodium Level October 14, 2020 11:38pm 138 mmol/L 137-145 MAIN LAB, [address] [place] [address] 43870 Potassium Level October 14, 2020 11:38pm 3.8 mmol/L 3.6-5.0 MAIN LAB, [address] [place] [address] 11316 Chloride Level October 14, 2020 11:38pm 100 mmol/L 98-107 MAIN LAB, [address] [place] [address] 02015 Carbon Dioxide Level October 14, 2020 11:38pm 25 mmol/L 22-30 MAIN LAB, [address] [place] [address] 38669 Anion Gap October 14, 2020 11:38pm 13 7-16 MA[facility], [address] [place] [address] 85929 Blood Urea Nitrogen October 14, 2020 11:38pm 15 mg/dL 7-17 MAIN LAB, [address] [place] [address] 32309 Creatinine October 14, 2020 11:38pm 0.76 mg/dL 0.52-1.04 MAIN [facility], [address] [place] [address] 00498 Glomerular Filtration Rate Calc October 14, 2020 11:38pm > 60 mL/min >60.0 MAIN LAB, [address] [place] [address] 89159 Glucose Level October 14, 2020 11:38pm 88 mg/dL 70-100 MA[facility], [address] [place] [address] 26000 Calcium Level October 14, 2020 11:38pm 9.3 mg/dL 8.4-10.2 MAIN [facility], [address] [place] [address] 83552 Calcium Adjusted for Albumin October 14, 2020 11:38pm 9.2 mg/dL 8.4-10.2 MA[facility], [address] [place] [address] 62870 Total Bilirubin October 14, 2020 11:38pm 0.3 mg/dL 0.2-1.3 MAIN LAB, [address] [place] [address] 37272 Aspartate Amino Transf (AST/SGOT) October 14, 2020 11:38pm 55 U/L 14-36 MAIN LAB, [address] [place] [address] 02370 Alanine Aminotransferase (ALT/SGPT) October 14, 2020 11:38pm 41 U/L <35 As of 09/13/19, the Reference Range for ALT/SGPT for adult patients has been updated. The Reference Range for ALT/SGPT has not been established for patients <18 years of age. MAIN LAB, [address] [place] [address] 07745 Total Protein October 14, 2020 11:38pm 7.4 g/dL 6.3-8.2 MAIN LAB, [address] [place] [address] 68017 Albumin October 14, 2020 11:38pm 4.4 g/dL 3.5-5.0 MAIN LAB, [address] [place] [address] 28106 Alkaline Phosphatase October 14, 2020 11:38pm 55 U/L 38-126 MAIN LAB, [address] [place] [address] 88047 Lipase October 14, 2020 11:38pm 43 U/L 23-300 MAIN LAB, [address] [place] [address] 66393 Advance Directives Advance Directive Response Recorded Date/ Time Does patient have an Advanced Directive? No October 14, 2020 11:22pm Do we have a copy on file here at [facility]? No October 14, 2020 11:22pm Pt has a Living Will? No October 14, 2020 11:22pm Do we have a copy on file here at [facility]? No October 14, 2020 11:22pm Pt has a Power of Yarn Spooler? No October 14, 2020 11:22pm Do we have a copy on file here at [facility]? No October 14, 2020 11:22pm Chief Complaint and Reason for Visit Chief Complaint LEFT FLANK PAIN Encounters Encounter Location(s) Arrival/Admit Date Discharge/Depart Date Provider(s) Departed Emergency [facility] October 14, 2020 10:48pm October 15, 2020 12:54am null Assessments No Assessments Information Available Functional Status Observation Response Date Recorded Living Situation Home October 15, 2020 12:54am Goals Goals may be documented in an alternate section. Mental Status Observation Response Date Recorded Comprehension Ability Understands Concepts October 14, 2020 11:00pm Mood/Behavior Appropriate October 14, 2020 1 1:00pm Medical Equipment No Medical Equipment Information available Insurance Providers Guarantor EDUARDO PAYAN Address [address] [facility] [address] Contact Info. Home Phone: Payer Policy Id Coverage Id Subscriber's Name Subscriber Id Effective Date Expiration Date [facility] [id number] EDUARDO George PAYAN [id number] SELF PAY Self N/A Plan of Treatment Future Tests Future scheduled test information is unavailable Pending Tests Pending diagnostic test information is unavailable Future Visits Future appointment information is unavailable Referrals to Other Providers Reason for Referral Referral Start Date Provider Regina villegas Contact Information Provider Address Pcp No Future Procedures Future procedure information is unavailable Future Medications Future medication information is unavailable Patient Instructions Gastritis (DC) Social History Smoking Status Status Date of Observation Never smoked tobacco (finding) October 14, 2020 11:11pm Observation Status Observation Response Date of Response Alcohol Use Yes October 14, 2020 1 1:11pm alcohol intake frequency a few times a month [facility] 2020 11:11pm Substance/Street Drug Use Yes October 142020 11:11pm substance use type marijuana October 14 11:11pm Smoking Status Never smoker October 14, 2020 1 1:11pm Assigned Sex Female Vital Signs Vital Reading Result Reference Range Collection Date/Time Weight 90.71 kg October 14, 2020 10:53pm Body Temperature 97.9 [degF] 97.6-99.6 October 14 10:53pm Heart Rate 80 /min 60-100 October 14, 2020 10:53pm Respiratory rate 16 /min 12-24 October 14 10:53pm Oxygen saturation by Pulse oximetry 96 % 95-100 October 14, 2020 10:53 pm BP Systolic 119 mm[Hg] 100-140 October 14, 2020 10:53pm BP Diastolic 61 mm[Hg] 50-85 October 14, 2020 10:53pm Hospital Discharge Instructions Additional Instructions Follow-up with your primary care provider within the next few days to recheck your hemoglobin, be reevaluated and talk about your pain. Small portions and bland diet for now. Restart your omeprazole as discussed. Limit alcohol, caffeine, spicy foods, eating right before bed. Follow-up immediately here for acutely worsening/new symptoms. Stay well-hydrated.
--- OUTSIDE RECORDS SUMMARY | 2022-11-20 17:45 | XMS_ITS | Continuity of Care Document ---
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 Name Role Phone PCP, of Choice Primary Care Provider MD Konstantin Donis Emergency Provider Tae Quiroz Emergency Provider MD Sen Segovia Emergency Provider MD Yolanda Dial Emergency Provider [phone] MD Cory Murillo Emergency Provider PCP, Not Given Primary Care Provider KIRA Turner Emergency Provider Care Teams Patient Care Team [...] Active Yolanda Dial MD Emergency Provider Active Chief Complaint and Reason for Visit Chief Complaint POST OP CONCERN POST OP CONCERN, BLEEDING PELVIC PAIN HEAVY VAG BLEEDING VAG BLEEDING LOWER ABD/PELVIC PAIN ABD PAIN ABDOMINAL COMPLAINT Allergies, Adverse Reactions, Alerts Allergen Type Severity Reaction Last Updated Verified Status droperidol Allergy anaphylactic shock October 162022 2:48pm Yes Active haloperidol Allergy rash October 16 2:48pm Yes Active ibuprofen Allergy October 16, 2022 2:48pm Yes Active ketorolac Allergy anaphylaxis October 16 2:48pm Yes Active latex Allergy rash October 16, 2022 2:48pm Yes Active Penicillins Allergy hives October 16 2:48pm Yes Active prochlorperazine Allergy hives October 2:48pm Yes Active Social History Smoking Status Status Start Date End Date Date of Observa tion Never smoked tobacco (finding) October 16, 2022 3:36pm Observation Status Observation Response Date of Response Alcohol Use Yes October 16, 2022 3 :36pm alcohol intake frequency a few times a month Ladarius 2022 3:36pm Alcohol type hard liquor October 16, 2022 3 :36pm Substance/Street Drug Use Yes October 162022 3:36pm Substance Use Treatment No October 3:36pm substance use type marijuana October 16 3:36pm Smoking Status Never smoker October 16, 2022 3 :36pm Additional Data Assigned Sex Female Problems Active [...] Vaginal bleeding Resolved Iron deficiency anemia Resolved History of endometriosis Resolve d Hx [...] Sulfate Disconti nued 325 MG PO DAILY October 15, 2020 12:00am [facility] 2020 5:42pm Hydrocodone-A cetaminophen Disconti nued TABLET December 29, 2020 12:00am January 07, 2021 5:04pm Cefdinir Disconti nued 300 MG PO TWICE A DAY 20 [facility] [place] 12:00am Septem rinku 2020 9:07pm Tramadol Disconti nued 50 MG PO Q8H 10 [facility] 2020 12:00am [facility] 2020 9:06pm Montelukast Active 10 MG PO DAILY 2021 1:00am Omeprazole Disconti nued 20 MG PO DAILY 2021 1:00am August 07, 2021 12:12p m Cephalexin Disconti nued 500 MG PO FOUR TIMES DAILY 2021 1:00am August 07, 2021 12:12p m Tramadol (Ultram) 50 mg Tablet Disconti nued 50 MG PO Q6H 7 2021 1:00am August 07, 2021 12:12p m Omeprazole Active 20 MG PO DAILY September 23, 2021 12:00am Norethindrone Acetate Active 5 MG PO DAILY 2022 12:00am Tizanidine Active MG CAPSULE September 16, 2022 12:00am Sulfamethoxaz ole-Trimethop rim Active 800 TAB PO TWICE A DAY October 16, 2022 12:00am Gabapentin Active 300 MG PO BEDTIME Augus t 2020 12:00am Hydrocodone-A cetaminophen Disconti nued 1 TAB PO Q6H January 02, 2021 January 07, 2021 5:04pm Ondansetron Disconti nued 4 MG PO Q6H January 02, 2021 12:00am August 07, 2021 12:12p m Famotidine-Ca Carb-Mag Hydrox (Pepcid Complete) 10-800-165 mg tablet,chewab le Disconti nued 1 TAB PO DAILY January 08, 2021 12:00am Septem rinku 2020 9:07pm Dicyclomine Disconti nued 10 MG PO .q6 prn January 08, 2021 12:00am Septem rinku 2020 3:08pm Oxycodone Disconti nued MG CAPSULE [facility] 2020 12:00am Februa ry 2021 3:37pm Fluticasone Propion-Salme terol (Advair Hfa) 115-21 mcg/actuation HFA aerosol inhaler Active 2 INH INH DAILY [facility] 2020 12:00am Ondansetron Hcl (Zofran) 4 mg tablet Disconti nued 4 MG PO Q8H 12 4 [facility] 2020 12:00am [facility] er 2020 1:01am Sulfamethoxaz ole-Trimethop rim (Bactrim Ds) 800-160 mg tablet Disconti nued 1 TAB PO TWICE A DAY 14 [facility] 2020 12:00am [facility] er 2020 1:25pm Tizanidine Disconti nued 4 MG PO As Directed August 07, 2021 12:00am November 10, 2021 12:18p m Ondansetron Active 4 - 8 MG PO Q8H August 07, 2021 12:00am Tranexamic Acid Active MG PO [facility] 2021 12:00am tid for max 5 days Procedures Procedure Date Performed Status Wet Prep completed CT Abd Pel w/ Contrast September 16, 2022 11:33pm com pleted CT Abd Pel w/ Contrast October 16, 2022 12:00am co mpleted Relevant Diagnostic Tests and/or Laboratory Data Laboratory Results Test Date/Time Result Interpretation Reference Range Result Comment Performing Site White Blood Count November 10, 2021 1:00pm 4.91 1000/mm3 4.8-10.8 [facility] [id number] [address] [address] White Blood Count 2022 8:10pm 5.41 1000/mm3 4.8-10.8 [facility] [id number] [address] [address] White Blood Count April 06, 2022 11:27am 3.71 1000/mm3 4.8-10.8 [facility] [id number] [address] [address] White Blood Count August 28, 2022 5:10pm 5.35 1000/mm3 4.8-10.8 [facility] [id number] [address] [address] White Blood Count September 17, 2022 12:25am 4.23 1000/mm3 4.8-10.8 [facility] [id number] [address] [address] White Blood Count October 16, 2022 4:04pm 4.29 1000/mm3 4.8-10.8 [facility] [id number] [address] [address] Red Blood Count November 10, 2021 1:00pm 3.22 M/mm3 4.20-5.40 [facility] [id number] [address] [address] Red Blood Count 2022 8:10pm 4.00 M/mm3 4.20-5.40 [facility] [id number] [address] [address] Red Blood Count April 06, 2022 11:27am 3.66 M/mm3 4.20-5.40 [facility] [id number] [address] [address] Red Blood Count August 28, 2022 5:10pm 4.13 M/mm3 4.20-5.40 [facility] [id number] [address] [address] Red Blood Count September 17, 2022 12:25am 3.54 M/mm3 4.20-5.40 [facility] [id number] [address] [address] Red Blood Count October 16, 2022 4:04pm 4.38 M/mm3 4.20-5.40 [facility] [id number] [address] [address] Hemoglobin November 10, 2021 1:00pm 8.4 g/dL 12.0-16.0 [facility] [id number] [address] [address] Hemoglobin 2022 8:10pm 8.6 g/dL 12.0-16.0 [facility] [id number] [address] [address] Hemoglobin April 06, 2022 11:27am 8.5 g/dL 12.0-16.0 [facility] [id number] [address] [address] Hemoglobin August 28, 2022 5:10pm 9.2 g/dL 12.0-16.0 [facility] [id number] [address] [address] Hemoglobin September 17, 2022 12:25am 7.7 g/dL 12.0-16.0 [facility] [id number] [address] [address] Hemoglobin October 16, 2022 4:04pm 9.9 g/dL 12.0-16.0 [facility] [id number] [address] [address] Hematocrit November 10, 2021 1:00pm 26.8 % 37-47 [facility] [id number] [address] [address] Hematocrit 2022 8:10pm 29.3 % 37-47 [facility] [id number] [address] [address] Hematocrit April 06, 2022 11:27am 27.6 % 37-47 [facility] [id number] [address] [address] Hematocrit August 28, 2022 5:10pm 30.8 % 37-47 [facility] [id number] [address] [address] Hematocrit September 17, 2022 12:25am 25.8 % 37-47 [facility] [id number] [address] [address] Hematocrit October 16, 2022 4:04pm 32.6 % 37-47 [facility] [id number] [address] [address] Mean Corpuscular Volume November 10, 2021 1:00pm 83.2 fL 81.0-99.0 [facility] [id number] [address] [address] Mean Corpuscular Volume 2022 8:10pm 73.3 fL 81.0-99.0 [facility] [id number] [address] [address] Mean Corpuscular Volume April 06, 2022 11:27am 75.4 fL 81.0-99.0 [facility] [id number] [address] [address] Mean Corpuscular Volume August 28, 2022 5:10pm 74.6 fL 81.0-99.0 [facility] [id number] [address] [address] Mean Corpuscular Volume September 17, 2022 12:25am 72.9 fL 81.0-99.0 [facility] [id number] [address] [address] Mean Corpuscular Volume October 16, 2022 4:04pm 74.4 fL 81.0-99.0 [facility] [id number] [address] [address] Mean Corpuscular Hemoglobin November 10, 2021 1:00pm 26.1 pg 27-31 [facility] [id number] [address] [address] Mean Corpuscular Hemoglobin 2022 8:10pm 21.5 pg 27-31 [facility] [id number] [address] [address] Mean Corpuscular Hemoglobin April 06, 2022 11:27am 23.2 pg 27-31 [facility] [id number] [address] [address] Mean Corpuscular Hemoglobin August 28, 2022 5:10pm 22.3 pg 27-31 [facility] [id number] [address] [address] Mean Corpuscular Hemoglobin September 17, 2022 12:25am 21.8 pg 27-31 [facility] [id number] [address] [address] Mean Corpuscular Hemoglobin October 16, 2022 4:04pm 22.6 pg 27-31 [facility] [id number] [address] [address] Mean Corpuscular Hemoglobin Concent November 10, 2021 1:00pm 31.3 g/dL 33-37 [facility] [id number] [address] [address] Mean Corpuscular Hemoglobin Concent 2022 8:10pm 29.4 g/dL 33-37 [facility] [id number] [address] [address] Mean Corpuscular Hemoglobin Concent April 06, 2022 11:27am 30.8 g/dL 33-37 [facility] [id number] [address] [address] Mean Corpuscular Hemoglobin Concent August 28, 2022 5:10pm 29.9 g/dL 33-37 [facility] [id number] [address] [address] Mean Corpuscular Hemoglobin Concent September 17, 2022 12:25am 29.8 g/dL 33-37 [facility] [id number] [address] [address] Mean Corpuscular Hemoglobin Concent October 16, 2022 4:04pm 30.4 g/dL 33-37 [facility] [id number] [address] [address] Red Cell Distribution Width November 10, 2021 1:00pm 14.4 % 11.5-14.5 [facility] [id number] [address] [address] Red Cell Distribution Width 2022 8:10pm 15.2 % 11.5-14.5 [facility] [id number] [address] [address] Red Cell Distribution Width April 06, 2022 11:27am 16.4 % 11.5-14.5 [facility] [id number] [address] [address] Red Cell Distribution Width August 28, 2022 5:10pm 14.2 % 11.5-14.5 [facility] [id number] [address] [address] Red Cell Distribution Width September 17, 2022 12:25am 14.9 % 11.5-14.5 [facility] [id number] [address] [address] Red Cell Distribution Width October 16, 2022 4:04pm 18.1 % 11.5-14.5 [facility] [id number] [address] [address] Platelet Count November 10, 2021 1:00pm 282 1000/mm3 140-440 [facility] [id number] [address] [address] Platelet Count 2022 8:10pm 217 1000/mm3 140-440 [facility] [id number] [address] [address] Platelet Count April 06, 2022 11:27am 174 1000/mm3 140-440 [facility] [id number] [address] [address] Platelet Count August 28, 2022 5:10pm 216 1000/mm3 140-440 [facility] [id number] [address] [address] Platelet Count September 17, 2022 12:25am 198 1000/mm3 140-440 [facility] [id number] [address] [address] Platelet Count October 16, 2022 4:04pm 291 1000/mm3 140-440 [facility] [id number] [address] [address] Mean Platelet Volume November 10, 2021 1:00pm 10.5 fL 7.4-10.4 [facility] [id number] [address] [address] Mean Platelet Volume 2022 8:10pm 12.9 fL 7.4-10.4 [facility] [id number] [address] [address] Mean Platelet Volume August 28, 2022 5:10pm 10.4 fL 7.4-10.4 [facility] [id number] [address] [address] Mean Platelet Volume September 17, 2022 12:25am 11.6 fL 7.4-10.4 [facility] [id number] [address] [address] Mean Platelet Volume October 16, 2022 4:04pm 10.7 fL 7.4-10.4 [facility] [id number] [address] [address] Neutrophils (%) (Auto) November 10, 2021 1:00pm 67.8 % 40.0-72.0 [facility] [id number] [address] [address] Neutrophils (%) (Auto) 2022 8:10pm 58.0 % 40.0-72.0 [facility] [id number] [address] [address] Neutrophils (%) (Auto) April 06, 2022 11:27am 55.7 % 40.0-72.0 [facility] [id number] [address] [address] Neutrophils (%) (Auto) August 28, 2022 5:10pm 68.4 % 40.0-72.0 [facility] [id number] [address] [address] Neutrophils (%) (Auto) September 17, 2022 12:25am 57.7 % 40.0-72.0 [facility] [id number] [address] [address] Neutrophils (%) (Auto) October 16, 2022 4:04pm 56.8 % 40.0-72.0 [facility] [id number] [address] [address] Lymphocytes (%) (Auto) November 10, 2021 1:00pm 23.4 % 17-45 [facility] [id number] [address] [address] Lymphocytes (%) (Auto) 2022 8:10pm 31.4 % 17-45 [facility] [id number] [address] [address] Lymphocytes (%) (Auto) April 06, 2022 11:27am 34.0 % 17-45 [facility] [id number] [address] [address] Lymphocytes (%) (Auto) August 28, 2022 5:10pm 24.1 % 17-45 [facility] [id number] [address] [address] Lymphocytes (%) (Auto) September 17, 2022 12:25am 32.4 % 17-45 [facility] [id number] [address] [address] Lymphocytes (%) (Auto) October 16, 2022 4:04pm 35.0 % 17-45 [facility] [id number] [address] [address] Monocytes (%) (Auto) November 10, 2021 1:00pm 4.7 % 3-11 [facility] [id number] [address] [address] Monocytes (%) (Auto) 2022 8:10pm 7.6 % 3-11 [facility] [id number] [address] [address] Monocytes (%) (Auto) April 06, 2022 11:27am 6.5 % 3-11 [facility] [id number] [address] [address] Monocytes (%) (Auto) August 28, 2022 5:10pm 5.0 % 3-11 [facility] [id number] [address] [address] Monocytes (%) (Auto) September 17, 2022 12:25am 6.9 % 3-11 [facility] [id number] [address] [address] Monocytes (%) (Auto) October 16, 2022 4:04pm 5.6 % 3-11 [facility] [id number] [address] [address] Eosinophils (%) (Auto) November 10, 2021 1:00pm 3.1 % 0-3 [facility] [id number] [address] [address] Eosinophils (%) (Auto) 2022 8:10pm 1.7 % 0-3 [facility] [id number] [address] [address] Eosinophils (%) (Auto) April 06, 2022 11:27am 2.4 % 0-3 [facility] [id number] [address] [address] Eosinophils (%) (Auto) August 28, 2022 5:10pm 1.5 % 0-3 [facility] [id number] [address] [address] Eosinophils (%) (Auto) September 17, 2022 12:25am 1.9 % 0-3 [facility] [id number] [address] [address] Eosinophils (%) (Auto) October 16, 2022 4:04pm 1.2 % 0-3 [facility] [id number] [address] [address] Basophils (%) (Auto) November 10, 2021 1:00pm 0.6 % 0-1 [facility] [id number] [address] [address] Basophils (%) (Auto) 2022 8:10pm 1.1 % 0-1 [facility] [id number] [address] [address] Basophils (%) (Auto) April 06, 2022 11:27am 1.1 % 0-1 [facility] [id number] [address] [address] Basophils (%) (Auto) August 28, 2022 5:10pm 0.6 % 0-1 [facility] [id number] [address] [address] Basophils (%) (Auto) September 17, 2022 12:25am 0.9 % 0-1 [facility] [id number] [address] [address] Basophils (%) (Auto) October 16, 2022 4:04pm 1.2 % 0-1 [facility] [id number] [address] [address] Immature Granulocyte % (Auto) November 10, 2021 1:00pm 0.4 % 0-1 [facility] [id number] [address] [address] Immature Granulocyte % (Auto) 2022 8:10pm 0.2 % 0-1 [facility] [id number] [address] [address] Immature Granulocyte % (Auto) April 06, 2022 11:27am 0.3 % 0-1 [facility] [id number] [address] [address] Immature Granulocyte % (Auto) August 28, 2022 5:10pm 0.4 % 0-1 [facility] [id number] [address] [address] Immature Granulocyte % (Auto) September 17, 2022 12:25am 0.2 % 0-1 [facility] [id number] [address] [address] Immature Granulocyte % (Auto) October 16, 2022 4:04pm 0.2 % 0-1 [facility] [id number] [address] [address] Neutrophils # (Auto) November 10, 2021 1:00pm 3.33 1000/mm3 1.4-6.5 [facility] [id number] [address] [address] Neutrophils # (Auto) 2022 8:10pm 3.14 1000/mm3 1.4-6.5 [facility] [id number] [address] [address] Neutrophils # (Auto) April 06, 2022 11:27am 2.07 1000/mm3 1.4-6.5 [facility] [id number] [address] [address] Neutrophils # (Auto) August 28, 2022 5:10pm 3.66 1000/mm3 1.4-6.5 [facility] [id number] [address] [address] Neutrophils # (Auto) September 17, 2022 12:25am 2.44 1000/mm3 1.4-6.5 [facility] [id number] [address] [address] Neutrophils # (Auto) October 16, 2022 4:04pm 2.44 1000/mm3 1.4-6.5 [facility] [id number] [address] [address] Lymphocytes # (Auto) November 10, 2021 1:00pm 1.15 1000/mm3 1.2-3.4 [facility] [id number] [address] [address] Lymphocytes # (Auto) 2022 8:10pm 1.70 1000/mm3 1.2-3.4 [facility] [id number] [address] [address] Lymphocytes # (Auto) April 06, 2022 11:27am 1.26 1000/mm3 1.2-3.4 [facility] [id number] [address] [address] Lymphocytes # (Auto) August 28, 2022 5:10pm 1.29 1000/mm3 1.2-3.4 [facility] [id number] [address] [address] Lymphocytes # (Auto) September 17, 2022 12:25am 1.37 1000/mm3 1.2-3.4 [facility] [id number] [address] [address] Lymphocytes # (Auto) October 16, 2022 4:04pm 1.50 1000/mm3 1.2-3.4 [facility] [id number] [address] [address] Monocytes # (Auto) November 10, 2021 1:00pm 0.23 1000/mm3 0.0-0.8 [facility] [id number] [address] [address] Monocytes # (Auto) 2022 8:10pm 0.41 1000/mm3 0.0-0.8 [facility] [id number] [address] [address] Monocytes # (Auto) April 06, 2022 11:27am 0.24 1000/mm3 0.0-0.8 [facility] [id number] [address] [address] Monocytes # (Auto) August 28, 2022 5:10pm 0.27 1000/mm3 0.0-0.8 [facility] [id number] [address] [address] Monocytes # (Auto) September 17, 2022 12:25am 0.29 1000/mm3 0.0-0.8 [facility] [id number] [address] [address] Monocytes # (Auto) October 16, 2022 4:04pm 0.24 1000/mm3 0.0-0.8 [facility] [id number] [address] [address] Eosinophils # (Auto) November 10, 2021 1:00pm 0.15 1000/mm3 0.0-0.7 [facility] [id number] [address] [address] Eosinophils # (Auto) 2022 8:10pm 0.09 1000/mm3 0.0-0.7 [facility] [id number] [address] [address] Eosinophils # (Auto) April 06, 2022 11:27am 0.09 1000/mm3 0.0-0.7 [facility] [id number] [address] [address] Eosinophils # (Auto) August 28, 2022 5:10pm 0.08 1000/mm3 0.0-0.7 [facility] [id number] [address] [address] Eosinophils # (Auto) September 17, 2022 12:25am 0.08 1000/mm3 0.0-0.7 [facility] [id number] [address] [address] Eosinophils # (Auto) October 16, 2022 4:04pm 0.05 1000/mm3 0.0-0.7 [facility] [id number] [address] [address] Basophils # (Auto) November 10, 2021 1:00pm 0.03 1000/mm3 0.0-0.1 [facility] [id number] [address] [address] Basophils # (Auto) 2022 8:10pm 0.06 1000/mm3 0.0-0.1 [facility] [id number] [address] [address] Basophils # (Auto) April 06, 2022 11:27am 0.04 1000/mm3 0.0-0.1 [facility] [id number] [address] [address] Basophils # (Auto) August 28, 2022 5:10pm 0.03 1000/mm3 0.0-0.1 [facility] [id number] [address] [address] Basophils # (Auto) September 17, 2022 12:25am 0.04 1000/mm3 0.0-0.1 [facility] [id number] [address] [address] Basophils # (Auto) October 16, 2022 4:04pm 0.05 1000/mm3 0.0-0.1 [facility] [id number] [address] [address] Absolute Immature Granulocyte (auto November 10, 2021 1:00pm 0.0 0-1 [facility] [id number] [address] [address] Absolute Immature Granulocyte (auto 2022 8:10pm 0.0 0-1 [facility] [id number] [address] [address] Absolute Immature Granulocyte (auto April 06, 2022 11:27am 0.0 0-1 [facility] [id number] [address] [address] Absolute Immature Granulocyte (auto August 28, 2022 5:10pm 0.0 0-1 [facility] [id number] [address] [address] Absolute Immature Granulocyte (auto September 17, 2022 12:25am 0.0 0-1 [facility] [id number] [address] [address] Absolute Immature Granulocyte (auto October 16, 2022 4:04pm 0.0 0-1 [facility] [id number] [address] [address] Differential Method November 10, 2021 1:00pm Automated [facility] [id number] [address] [address] Differential Method 2022 8:10pm Automated [facility] [id number] [address] [address] Differential Method April 06, 2022 11:27am Automated [facility] [id number] [address] [address] Differential Method August 28, 2022 5:10pm Automated [facility] [id number] [address] [address] Differential Method September 17, 2022 12:25am Automated [facility] [id number] [address] [address] Differential Method October 16, 2022 4:04pm Automated [facility] [id number] [address] [address] Erythrocyte Sedimentatio n Rate August 28, 2022 5:10pm 10 mm/hr 0-15 [facility] [id number] [address] [address] Serum Test, Qualitative April 06, 2022 11:27am Negative NEGATIVE [facility] [id number] [address] [address] Sodium Level November 10, 2021 1:00pm 139 mmol/L 137-145 [facility] [id number] [address] [address] Sodium Level 2022 8:10pm 140 mmol/L 137-145 [facility] [id number] [address] [address] Sodium Level April 06, 2022 11:27am 142 mmol/L 137-145 [facility] [id number] [address] [address] Potassium Level November 10, 2021 1:00pm 4.2 mmol/L 3.6-5.0 [facility] [id number] [address] [address] Potassium Level 2022 8:10pm 3.7 mmol/L 3.6-5.0 [facility] [id number] [address] [address] Potassium Level April 06, 2022 11:27am 3.7 mmol/L 3.6-5.0 [facility] [id number] [address] [address] Chloride Level November 10, 2021 1:00pm 104 mmol/L 98-107 [facility] [id number] [address] [address] Chloride Level 2022 8:10pm 102 mmol/L 98-107 [facility] [id number] [address] [address] Chloride Level April 06, 2022 11:27am 106 mmol/L 98-107 [facility] [id number] [address] [address] Carbon Dioxide Level November 10, 2021 1:00pm 24 mmol/L 22-30 [facility] [id number] [address] [address] Carbon Dioxide Level 2022 8:10pm 30 mmol/L 22-30 [facility] [id number] [address] [address] Carbon Dioxide Level April 06, 2022 11:27am 27 mmol/L 22-30 [facility] [id number] [address] [address] Anion Gap November 10, 2021 1:00pm 11 7-16 [facility] [id number] [address] [address] Anion Gap 2022 8:10pm 8 7-16 [facility] [id number] [address] [address] Anion Gap April 06, 2022 11:27am 9 7-16 [facility] [id number] [address] [address] Blood Urea Nitrogen November 10, 2021 1:00pm 7 mg/dL 7-17 [facility] [id number] [address] [address] Blood Urea Nitrogen 2022 8:10pm 8 mg/dL 7-17 [facility] [id number] [address] [address] Blood Urea Nitrogen April 06, 2022 11:27am 10 mg/dL 7-17 [facility] [id number] [address] [address] Creatinine November 10, 2021 1:00pm 0.76 mg/dL 0.52-1.04 [facility] [id number] [address] [address] Creatinine 2022 8:10pm 0.66 mg/dL 0.52-1.04 [facility] [id number] [address] [address] Creatinine April 06, 2022 11:27am 0.73 mg/dL 0.52-1.04 [facility] [id number] [address] [address] Glomerular Filtration Rate Calc November 10, 2021 1:00pm > 60 mL/min >60.0 [facility] [id number] [address] [address] Glomerular Filtration Rate Calc 2022 8:10pm > 60 mL/min >60.0 [facility] [id number] [address] [address] Glomerular Filtration Rate Calc April 06, 2022 11:27am > 60 mL/min >60.0 [facility] [id number] [address] [address] Glucose Level November 10, 2021 1:00pm 95 mg/dL 70-100 [facility] [id number] [address] [address] Glucose Level 2022 8:10pm 97 mg/dL 70-100 [facility] [id number] [address] [address] Glucose Level April 06, 2022 11:27am 90 mg/dL 70-100 [facility] [id number] [address] [address] Calcium Level November 10, 2021 1:00pm 9.6 mg/dL 8.4-10.2 [facility] [id number] [address] [address] Calcium Level 2022 8:10pm 9.2 mg/dL 8.4-10.2 [facility] [id number] [address] [address] Calcium Level April 06, 2022 11:27am 8.9 mg/dL 8.4-10.2 [facility] [id number] [address] [address] Calcium Adjusted for Albumin April 06, 2022 11:27am 8.7 mg/dL 8.4-10.2 [facility] [id number] [address] [address] Total Bilirubin April 06, 2022 11:27am 0.5 mg/dL 0.2-1.3 [facility] [id number] [address] [address] Aspartate Amino Transf (AST/SGOT) April 06, 2022 11:27am 46 U/L 14-36 [facility] [id number] [address] [address] Alanine Aminotransfe rase (ALT/SGPT) April 06, 2022 11:27am 35 U/L <35 [facility] [id number] [address] [address] Total Protein April 06, 2022 11:27am 7.4 g/dL 6.3-8.2 [facility] [id number] [address] [address] Albumin April 06, 2022 11:27am 4.6 g/dL 3.5-5.0 [facility] [id number] [address] [address] Alkaline Phosphatase April 06, 2022 11:27am 52 U/L 38-126 [facility] [id number] [address] [address] Lipase April 06, 2022 11:27am 37 U/L 23-300 [facility] [id number] [address] [address] Sodium Level August 28, 2022 4:05pm 137 mmol/L 137-145 [facility] [id number] [address] [address] Sodium Level September 17, 2022 12:25am 140 mmol/L 137-145 [facility] [id number] [address] [address] Sodium Level October 16, 2022 4:04pm 139 mmol/L 137-145 [facility] [id number] [address] [address] Potassium Level August 28, 2022 4:05pm 3.9 mmol/L 3.6-5.0 [facility] [id number] [address] [address] Potassium Level September 17, 2022 12:25am 3.9 mmol/L 3.6-5.0 [facility] [id number] [address] [address] Potassium Level October 16, 2022 4:04pm 3.4 mmol/L 3.6-5.0 [facility] [id number] [address] [address] Chloride Level August 28, 2022 4:05pm 104 mmol/L 98-107 [facility] [id number] [address] [address] Chloride Level September 17, 2022 12:25am 106 mmol/L 98-107 [facility] [id number] [address] [address] Chloride Level October 16, 2022 4:04pm 101 mmol/L 98-107 [facility] [id number] [address] [address] Carbon Dioxide Level August 28, 2022 4:05pm 22 mmol/L 22-30 [facility] [id number] 52 [address] [address] Carbon Dioxide Level September 17, 2022 12:25am 23 mmol/L 22-30 [facility] [id number] [address] [address] Carbon Dioxide Level October 16, 2022 4:04pm 23 mmol/L - [facility] [id number] [address] [address] Anion Gap August 28, 2022 4:05pm 11 - [facility] [id number] [address] [address] Anion Gap September 17, 2022 12:25am 11 - [facility] [id number] [address] [address] Anion Gap October 16, 2022 4:04pm 15 - [facility] [id number] [address] [address] Blood Urea Nitrogen August 28, 2022 4:05pm 10 mg/dL 7- [facility] [id number] [address] [address] Blood Urea Nitrogen September 17, 2022 12:25am 10 mg/dL 7- [facility] [id number] [address] [address] Blood Urea Nitrogen October 16, 2022 4:04pm 9 mg/dL - [facility] [id number] [address] [address] Creatinine August 28, 2022 4:05pm 0.58 mg/dL 0.52-1.04 [facility] [id number] [address] [address] Creatinine September 17, 2022 12:25am 0.60 mg/dL 0.52-1.04 [facility] [id number] [address] [address] Creatinine October 16, 2022 4:04pm 0.90 mg/dL 0.52-1.04 [facility] [id number] [address] [address] Glomerular Filtration Rate Calc August 28, 2022 4:05pm > 60 mL/min >60.0 [facility] [id number] [address] [address] Glomerular Filtration Rate Calc September 17, 2022 12:25am 129 mL/min >60.0 [facility] [id number] [address] [address] Glomerular Filtration Rate Calc October 16, 2022 4:04pm 92 mL/min >60.0 [facility] [id number] [address] [address] Glucose Level August 28, 2022 4:05pm 83 mg/dL 70-100 [facility] [id number] [address] [address] Glucose Level September 17, 2022 12:25am 91 mg/dL 70-100 [facility] [id number] [address] [address] Glucose Level October 16, 2022 4:04pm 92 mg/dL 70-100 [facility] [id number] [address] [address] Calcium Level August 28, 2022 4:05pm 9.1 mg/dL 8.4-10.2 [facility] [id number] [address] [address] Calcium Level September 17, 2022 12:25am 8.9 mg/dL 8.4-10.2 [facility] [id number] [address] [address] Calcium Level October 16, 2022 4:04pm 9.9 mg/dL 8.4-10.2 [facility] [id number] [address] [address] Calcium Adjusted for Albumin August 28, 2022 4:05pm 8.9 mg/dL 8.4-10.2 [facility] [id number] [address] [address] Calcium Adjusted for Albumin September 17, 2022 12:25am 8.8 mg/dL 8.4-10.2 [facility] [id number] [address] [address] Calcium Adjusted for Albumin October 16, 2022 4:04pm 9.2 mg/dL 8.4-10.2 [facility] [id number] [address] [address] Albumin August 28, 2022 4:05pm 4.5 g/dL 3.5-5.0 [facility] [id number] [address] [address] Albumin September 17, 2022 12:25am 4.4 g/dL 3.5-5.0 [facility] [id number] [address] [address] Albumin October 16, 2022 4:04pm 5.2 g/dL 3.5-5.0 [facility] [id number] [address] [address] Total Protein August 28, 2022 4:05pm 7.3 g/dL 6.3-8.2 [facility] [id number] [address] [address] Total Protein September 17, 2022 12:25am 7.0 g/dL 6.3-8.2 [facility] [id number] [address] [address] Total Protein October 16, 2022 4:04pm 9.6 g/dL 6.3-8.2 [facility] [id number] [address] [address] Alkaline Phosphatase August 28, 2022 4:05pm 56 U/L 38-126 [facility] [id number] [address] [address] Alkaline Phosphatase September 17, 2022 12:25am 41 U/L 38-126 [facility] [id number] [address] [address] Alkaline Phosphatase October 16, 2022 4:04pm 67 U/L 38-126 [facility] [id number] [address] [address] Alanine Aminotransfe rase (ALT/SGPT) August 28, 2022 4:05pm 33 U/L <35 Per [facility] Clinical [facility]'s notification dated July 18, 2022, note that ascorbic acid concentrations of 100 mg/dL may produce a negative bias greater than 12.5%. [facility] [id number] [address] [address] Alanine Aminotransfe rase (ALT/SGPT) September 17, 2022 12:25am 23 U/L <35 Per [facility]'s notification dated July 18, 2022, note that ascorbic acid concentrations of 100 mg/dL may produce a negative bias greater than 12.5%. [facility] [id number] [address] [address] Alanine Aminotransfe rase (ALT/SGPT) October 16, 2022 4:04pm 38 U/L <35 Per [facility]'s notification dated July 18, 2022, note that ascorbic acid concentrations of 100 mg/dL may produce a negative bias greater than 12.5%. [facility] [id number] [address] [address] Aspartate Amino Transf (AST/SGOT) August 28, 2022 4:05pm 36 U/L 14-36 [facility] [id number] [address] [address] Aspartate Amino Transf (AST/SGOT) September 17, 2022 12:25am 39 U/L 14-36 [facility] [id number] [address] [address] Aspartate Amino Transf (AST/SGOT) October 16, 2022 4:04pm 36 U/L 14-36 [facility] [id number] [address] [address] Total Bilirubin August 28, 2022 4:05pm 0.4 mg/dL 0.2-1.3 [facility] [id number] [address] [address] Total Bilirubin September 17, 2022 12:25am 0.3 mg/dL 0.2-1.3 [facility] [id number] [address] [address] Total Bilirubin October 16, 2022 4:04pm 0.6 mg/dL 0.2-1.3 [facility] [id number] [address] [address] Lipase September 17, 2022 12:25am 43 U/L 23-300 [facility] [id number] [address] [address] Lactic Acid Level October 16, 2022 4:04pm 1.0 mmol/L 0.7-2.1 [facility] [id number] [address] [address] C-Reactive Protein August 28, 2022 4:05pm 6.0 mg/L 5-10 [facility] [id number] [address] [address] C-Reactive Protein October 16, 2022 4:04pm 8.2 mg/L 5-10 [facility] [id number] [address] [address] Chlamydia trachomatis RNA August 28, 2022 7:50pm Negative Negative [facility] [id number] Neisseria gonorrhoeae RNA August 28, 2022 7:50pm Negative Negative CH[facility]AM/GC SOURCES: ENDOCERVICSourc e:CERVIXTest performed or referred by[address] [facility] [id number] Microbiology Results Procedure Source Result Collection Date/Time Result Date/Time Result Comment Performing Site Wet Prep Vaginal August 28, 2022 8:16pm [facility] [id number] [address] [address] Diagnostic Imaging Reports Author Ellen Bryan [facility] October 16, 2022 7:25pm Report Date/Time October 16, 2022 7:24p m [facility] CAT SCAN REPORT PATIENT NAME: EDUARDO [...] By : Ellen Bryan MD dd: 10/16/22192310/16/221923 Vital Signs Vital Reading Result Reference Range [...] 52pm BP Systolic 119 mm[Hg] 100-140 January 10, 9:52pm BP Diastolic 53 mm[Hg] 50-85 January 10, 9:52pm Weight 74.84 kg February 20 2:56pm Body Temperature 97.8 [degF] 97.6-99.6 February 2:56pm Heart Rate 68 /min 60-100 February 20 2:56pm Respiratory rate 16 /min -February 2:56pm Oxygen saturation by Pulse oximetry 97 % 95-100 February 20, 2022 2: 56pm BP Systolic 105 mm[Hg] 100-140 February 20, 2:56pm BP Diastolic 44 mm[Hg] 50-85 February [...] 71 mm[Hg] 50-85 October 16, 2022 9:18pm Advance Directives Advance Directive Response Recorded Date/ Time Does patient have an Advance Directive? No 2022 7:29pm Does patient have a COLST form? No 2022 7:29pm Insurance Providers Guarantor EDUARDO COATSGerry Address [address] [address] Contact Info. Home Phone: Payer Policy Id Coverage Id Subscriber's Name Subscriber Id Effective Date Expiration Date [facility] [id number] EDUARDO PAYAN [id number] SELF PAY Self N/A Encounters Encounter Location(s) Arrival/Admit Date [facility]) [facility] 11[facility]am November 10, 2021 5:45pm null Departed Emergency [facility] 2022 5:23pm 2022 9:55pm null Departed Emergency [facility] February 20, 2022 2:39pm February 20, 2022 3:42pm null Depart Emergency [facility] March 19, 2022 2:34pm March 19, 2022 4:09pm null Departed Emergency [facility] April 06, 2022 11:08am April 06, 2022 12:29pm null Departed Emergency [facility] August 28, 2022 1:47pm August 28, 2022 10:20pm null Departed Emergency [facility] September 16, 2022 10:06pm September 17, 2022 4:32am null Departed Emergency [facility] October 16, 2022 2:30pm October 16, 2022 9:24pm null Functional Status Observation Response Date Recorded Living Situation Home October 16, 2022 9:23pm Mental Status Observation Response Date Recorded Comprehension Ability Understands Concepts Novem 2021 11:53am Mood/Behavior Appropriate April 06 11:53am Anxious April 06 11:53am Comprehension Ability Understands Concepts September 172022 12:00am Speech Appropriate September 17, 2022 12 :00am Mood/Behavior Appropriate September 17, 2022 12 :00am Comprehension Ability Understands Concepts Novem 2021 3:30pm Mood/Behavior Appropriate March 19 3:30pm Plan of Treatment Future Tests Future scheduled test information is unavailable Pending Tests Pending diagnostic test information is unavailable Future Visits Future appointment information is unavailable Referrals to Other Providers Reason for Referral Referral Start Date Provider Provider Contact Information Provider Address No Pcp Emely holloway MD Work Phone: [facility] [employer] [address] [facility] [address] [facility] Work Phone: [address] [facility] [address] No Pcp [facility]: [address] [facility] [address] [facility] [address] No Pcp No Pcp Not Given No Pcp Ashlie Ramos Work Phone: [address] [place] [address] No Pcp Future Procedures Future procedure information is unavailable Future Medications Future medication information is unavailable Patient Instructions Chronic Pelvic Pain (DC) Abdominal Pain, Adult ED Heavy Periods (DC) Abdominal Pain, Adult ED Hospital Discharge Instructions Additional Instructions No acute findings on your CT scan today Follow up with your surgical team Return to ED with new or worsening symptoms as discussed Patient contact information: Primary phone:[phone] (Note to patient; Please let our registration staff know if this phone number is not correct so we can keep our systems accurate) *Regarding pending labs, you will only be called for positive/abnormal results. Negative/normal results can be found on the patient portal.
--- OUTSIDE RECORDS SUMMARY | 2022-11-20 17:45 | XMS_ITS | Continuity of Care Document ---
Author Name Unknown Address [address] [place] [address] Phone [facility] Address [address] [place] [address] Phone Care Team Providers Care Irrigation District Manager Name Role Phone PCP, of Choice Primary Care Provider MD Konstantin Donis Emergency Provider Elier Luther Emergency Provider MARIELLA Thomson Emergency Provider [phone] MD Tae Zapata Emergency Provider MARIELLA Ledezma Emergency Provider Out of Town, Provider Primary Care Provider MARIELLA May Emergency Provider MD Yolanda Dial Emergency Provider MD Praveen Harden Emergency Provider KIRA Garcia Emergency Provider MD Pierce Cowan Emergency Provider Chief Complaint and Reason for Visit Chief Complaint ORAL INFECTION RECTAL BLEEDING abdominal pain OVARIAN CYST POST OP CONCERN ABDOMINAL PAIN HEAVY VAG BLEEDING FALL/ BACK COMPLAINT PELVIC PAIN RIGHT SIDE PAIN ABDOMINAL PAIN 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 abdominal complaint POST OP CONCERN Allergies, Adverse Reactions, Alerts Allergen Type Severity Reaction Last Updated Verified Status droperidol Allergy anaphylactic shock August 10, 2021 2:49pm Yes Active haloperidol Allergy rash August 10 2:49pm Yes Active ibuprofen Allergy August 10 2:49pm Yes Active ketorolac Allergy anaphylaxis August 10 2 022 2:49pm Yes Active latex Allergy rash August 10 2:49pm Yes Active Penicillins Allergy hives August 10 022 2:49pm Yes Active prochlorperazine Allergy hives August 102021 2:49pm Yes Active Social History Smoking Status Status Start Date End Date Date of Observa tion Never smoked tobacco (finding) November 10, 2021 12:27pm Observation Status Observation Response Date of Response Alcohol Use Yes November 10, 2021 12:27pm alcohol intake frequency a few times a month Ladarius e 2021 12:27pm Alcohol type hard liquor November 10, 2021 12:27pm Substance/Street Drug Use Yes October 142021 12:27pm Substance Use Treatment No October 12:27pm substance use type marijuana November 10 12:27pm Smoking Status Never smoker November 10, 2021 12:27pm Additional Data Assigned Sex Female Problems Active Problems Medical Problem Onset Date Status Abnormal vaginal bleeding Active Inactive/Resolved Problems Medical Problem Onset Date [...] DAILY October 14, 2020 12:00am Docusate Sodium Discontin ued 50 MG PO TWICE A DAY October 14, 2020 12:00am August 07, 2021 12:12p m Trazodone Active 100 MG PO BEDTIME October 14, 2020 12:00am Hydroxyzine Hcl Active 100 MG PO BEDTIME October 14, 2020 12:00am Ferrous Sulfate Discontin ued 325 MG PO DAILY 14 October 15, 2020 12:00am Novemb er 2020 5:42pm Hydrocodone- Acetaminophe n Discontin ued TABLET December 29, 2020 12:00am January 07, 2021 5:04pm Cefdinir Discontin ued 300 MG PO TWICE A DAY 20 er 2020 12:00am 2020 9:07pm Tramadol Discontin ued 50 [facility] 12:00am 2020 9:06pm Montelukast Active 10 MG PO DAILY 2021 1:00am Omeprazole Discontin ued 20 MG PO DAILY 2021 1:00am August 07, 2021 12:12p m Cephalexin Discontin ued 500 MG PO FOUR TIMES DAILY 2021 1:00am August 07, 2021 12:12p m Tramadol (Ultram) 50 mg Tablet Discontin ued 50 MG PO Q6H 2021 1:00am August 07, 2021 12:12p m Omeprazole Active MG September 23, 2021 12:00am Gabapentin Active 200 MG PO DAILY January 02, 2021 12:00am Hydrocodone- Acetaminophe n Discontin ued 1 TAB PO Q6H January 02, 2021 January 07, 2021 5:04pm Ondansetron Discontin ued 4 MG PO Q6H January 02, 2021 12:00am August 07, 2021 12:12p m Famotidine-C a Carb-Mag Hydrox (Pepcid Complete) 10-800-165 mg tablet,chewa ble Discontin ued 1 TAB PO DAILY January 08, 2021 12:00am 2020 9:07pm Dicyclomine Discontin ued 10 MG PO .q6 prn January 08, 2021 12:00am 2020 3:08pm Oxycodone Discontin ued MG CAPSULE Fidel mcneil 2020 12:00am Februa ry 2021 3:37pm Fluticasone Propion-Salm eterol (Advair Hfa) 115-21 mcg/actuatio n HFA aerosol inhaler Active INH Fidel mcneil 2020 12:00am Ondansetron Hcl (Zofran) 4 mg tablet Discontin ued 4 MG PO Q8H 12 4 Novembe r 2020 12:00am Novemb er 2020 1:01am Sulfamethoxa zole-Trimeth oprim (Bactrim Ds) 800-160 mg tablet Discontin ued 1 TAB PO TWICE A DAY 14 Novembe r 2020 12:00am Novemb er 2020 1:25pm Tizanidine Discontin ued 4 MG PO As Directed August 07, 2021 12:00am November 10, 2021 12:18p m Ondansetron Active 4 - 8 MG PO Q8H 8 August 07, 2021 12:00am Procedures Procedure Date Performed Status ED US Abdominal Limited August 10, 2021 4:34pm completed CT Abd Pel w/ Contrast August 07, 2021 12:50pm completed ED US Abdominal Limited March 27, 2021 2:[address] Abd Pel w/ Contrast March 16, 2021 4:09pm completed Gram Stain completed Routine Culture completed Urine Culture completed CT Abd Pel w/ Contrast January 02, 2021 4:51pm completed Urine Culture completed Blood Culture completed Relevant Diagnostic Tests and/or Laboratory Data Laboratory Results Test Date/Time Result Interpretation Reference Range Result Comment Performing Site White Blood Count January 02, 2021 4:44pm 6.81 1000/mm3 4.8-10.8 [facility] [address] [address] White Blood Count January 07, 2021 5:35pm 5.33 1000/mm3 4.8-10.8 [facility] [address] [address] White Blood Count January 29, 2021 9:57pm 5.85 1000/mm3 4.8-10.8 [facility] [address] [address] White Blood Count March 16, 2021 5:34pm 6.11 1000/mm3 4.8-10.8 [facility] [address] [address] White Blood Count March 18, 2021 7:56pm 5.26 1000/mm3 4.8-10.8 [facility] [address] [address] White Blood Count March 20, 2021 4:37pm 4.94 1000/mm3 4.8-10.8 [facility] [address] [address] White Blood Count August 07, 2021 1:30pm 4.95 1000/mm3 4.8-10.8 [facility] [address] [address] White Blood Count August 10, 2021 3:14pm 4.83 1000/mm3 4.8-10.8 [facility] [address] [address] White Blood Count November 10, 2021 1:00pm 4.91 1000/mm3 4.8-10.8 [facility] [address] [address] Red Blood Count January 02, 2021 4:44pm 4.67 M/mm3 4.20-5.[address] [address] Red Blood Count January 07, 2021 5:35pm 4.85 M/mm3 4.20-5.40 MAIN [facility] [address] [address] Red Blood Count January 29, 2021 9:57pm 4.53 M/mm3 4.20-5.40 [facility] [address] [address] Red Blood Count March 16, 2021 5:34pm 4.26 M/mm3 4.20-5.40 [facility] [address] [address] Red Blood Count March 18, 2021 7:56pm 4.17 M/mm3 4.20-5.40 [facility] [address] [address] Red Blood Count March 20, 2021 4:37pm 4.14 M/mm3 4.20-5.40 [facility] [address] [address] Red Blood Count August 07, 2021 1:30pm 4.43 M/mm3 4.20-5.40 MAIN LAB [address] [address] Red Blood Count August 10, 2021 3:14pm 3.83 M/mm3 4.20-5.40 MAIN LAB [facility] [address] [facility] [address] Red Blood Count November 10, 2021 1:00pm 3.22 M/mm3 4.20-5.40 MAIN LAB [facility] [address] [facility] [address] Hemoglobin January 02, 2021 4:44pm 10.4 g/dL 12.0-16.0 MAIN LAB [facility] [address] [facility] [address] Hemoglobin January 07, 2021 5:35pm 10.8 g/dL 12.0-16.0 MAIN LAB [facility] [address] [facility] [address] Hemoglobin January 29, 2021 9:57pm 10.4 g/dL 12.0-16.0 MA[facility] LAB [facility] [address] [facility] [address] Hemoglobin March 16, 2021 5:34pm 9.9 g/dL 12.0-16.0 [facility] [address] [address] Hemoglobin March 18, 2021 7:56pm 9.9 g/dL 12.0-16.0 [facility] [address] [address] Hemoglobin March 20, 2021 4:37pm 9.8 g/dL 12.0-16.0 [facility] [address] [address] Hemoglobin August 07, 2021 1:30pm 11.4 g/dL 12.0-16.0 MAIN LAB [facility] [address] [facility] [address] Hemoglobin August 10, 2021 3:14pm 9.9 g/dL 12.0-16.0 MAIN LAB [facility] [address] [facility] [address] Hemoglobin November 10, 2021 1:00pm 8.4 g/dL 12.0-16.0 MA[facility] [address] [address] Hematocrit January 02, 2021 4:44pm 35.2 % 37-47 MA[facility] LAB [facility] [address] [facility] [address] Hematocrit January 07, 2021 5:35pm 36.3 % 37-47 MAIN LAB [facility] [address] [facility] [address] Hematocrit January 29, 2021 9:57pm 33.7 % 37-47 MAIN LAB [facility] [address] [facility] [address] Hematocrit March 16, 2021 5:34pm 33.2 % 37-47 MAIN LAB [facility] [address] [facility] [address] Hematocrit March 18, 2021 7:56pm 32.9 % 37-47 MAIN LAB [facility] [address] [facility] [address] Hematocrit March 20, 2021 4:37pm 32.6 % 37-47 MAIN LAB [facility] [address] [facility] [address] Hematocrit August 07, 2021 1:30pm 36.4 % 37-47 [facility] [address] [facility] [address] Hematocrit August 10, 2021 3:14pm 31.6 % 37-47 [facility] [address] [facility] [address] Hematocrit November 10, 2021 1:00pm 26.8 % 37-47 [facility] [address] [address] Mean Corpuscular Volume January 02, 2021 4:44pm 75.4 fL 81.0-99.0 [facility] [address] [facility] [address] Mean Corpuscular Volume January 07, 2021 5:35pm 74.8 fL 81.0-99.0 [facility] [address] [facility] [address] Mean Corpuscular Volume January 29, 2021 9:57pm 74.4 fL 81.0-99.0 [facility] [address] [facility] [address] Mean Corpuscular Volume March 16, 2021 5:34pm 77.9 fL 81.0-99.0 [facility] [address] [facility] [address] Mean Corpuscular Volume March 18, 2021 7:56pm 78.9 fL 81.0-99.0 [facility] [address] [facility] [address] Mean Corpuscular Volume March 20, 2021 4:37pm 78.7 fL 81.0-99.0 [facility] [address] [address] Mean Corpuscular Volume August 07, 2021 1:30pm 82.2 fL 81.0-99.0 [facility] [address] [address] Mean Corpuscular Volume August 10, 2021 3:14pm 82.5 fL 81.0-99.0 [facility] [address] [address] Mean Corpuscular Volume November 10, 2021 1:00pm 83.2 fL 81.0-99.0 [facility] [address] [address] Mean Corpuscular Hemoglobin January 02, 2021 4:44pm 22.3 pg 27-31 MA[facility] [address] [address] Mean Corpuscular Hemoglobin January 07, 2021 5:35pm 22.3 pg 27-31 MAIN [facility] [address] [address] Mean Corpuscular Hemoglobin January 29, 2021 9:57pm 23.0 pg 27-31 MA[facility] [address] [address] Mean Corpuscular Hemoglobin March 16, 2021 5:34pm 23.2 pg 27-31 MA[facility] [address] [address] Mean Corpuscular Hemoglobin March 18, 2021 7:56pm 23.7 pg 27-31 [facility] [address] [address] Mean Corpuscular Hemoglobin March 20, 2021 4:37pm 23.7 pg 27-31 MA[facility] [address] [address] Mean Corpuscular Hemoglobin August 07, 2021 1:30pm 25.7 pg 27-31 MA[facility] [address] [address] Mean Corpuscular Hemoglobin August 10, 2021 3:14pm 25.8 pg 27-31 MAIN LAB [facility] [address] [facility] [address] Mean Corpuscular Hemoglobin November 10, 2021 1:00pm 26.1 pg 27-31 MAIN LAB [facility] [address] [facility] [address] Mean Corpuscular Hemoglobin Concent January 02, 2021 4:44pm 29.5 g/dL 33-37 MAIN LAB [facility] [address] [facility] [address] Mean Corpuscular Hemoglobin Concent January 07, 2021 5:35pm 29.8 g/dL 33-37 MAIN LAB [facility] [address] [facility] [address] Mean Corpuscular Hemoglobin Concent January 29, 2021 9:57pm 30.9 g/dL 33-37 MA[facility] [address] [address] Mean Corpuscular Hemoglobin Concent March 16, 2021 5:34pm 29.8 g/dL 33-37 MA[facility] [address] [facility] [address] Mean Corpuscular Hemoglobin Concent March 18, 2021 7:56pm 30.1 g/dL 33-37 MA[facility] [address] [address] Mean Corpuscular Hemoglobin Concent March 20, 2021 4:37pm 30.1 g/dL 33-37 MA[facility] [address] [address] Mean Corpuscular Hemoglobin Concent August 07, 2021 1:30pm 31.3 g/dL 33-37 MAIN LAB [facility] [address] [facility] [address] Mean Corpuscular Hemoglobin Concent August 10, 2021 3:14pm 31.3 g/dL 33-37 MA[facility] [address] [address] Mean Corpuscular Hemoglobin Concent November 10, 2021 1:00pm 31.3 g/dL 33-37 MAIN LAB [facility] [address] [facility] [address] Red Cell Distribution Width January 02, 2021 4:44pm 19.4 % 11.5-14.5 MAIN LAB [facility] [address] [facility] [address] Red Cell Distribution Width January 07, 2021 5:35pm 18.6 % 11.5-14.5 [facility] [address] [facility] [address] Red Cell Distribution Width January 29, 2021 9:57pm 17.6 % 11.5-14.5 MAIN [facility] [address] [address] Red Cell Distribution Width March 16, 2021 5:34pm 16.2 % 11.5-14.5 [facility] [address] [address] Red Cell Distribution Width March 18, 2021 7:56pm 16.4 % 11.5-14.5 MAIN [facility] [address] [address] Red Cell Distribution Width March 20, 2021 4:37pm 16.5 % 11.5-14.5 [facility] [address] [address] Red Cell Distribution Width August 07, 2021 1:30pm 14.0 % 11.5-14.5 [facility] [address] [address] Red Cell Distribution Width August 10, 2021 3:14pm 14.0 % 11.5-14.5 [facility] [address] [address] Red Cell Distribution Width November 10, 2021 1:00pm 14.4 % 11.5-14.5 [facility] [address] [address] Platelet Count January 02, 2021 4:44pm 216 1000/mm3 140-440 MAIN [facility] [address] [address] Platelet Count January 07, 2021 5:35pm 240 1000/mm3 140-440 [facility] [address] [address] Platelet Count January 29, 2021 9:57pm 248 1000/mm3 140-440 MA[facility] [address] [address] Platelet Count March 16, 2021 5:34pm 220 1000/mm3 140-440 MAIN LAB [address] [place] [address] Platelet Count March 18, 2021 7:56pm 212 1000/mm3 140-440 MAIN LAB [facility] [address] [facility] [address] Platelet Count March 20, 2021 4:37pm 177 1000/mm3 140-440 MAIN LAB [facility] [address] [facility] [address] Platelet Count August 07, 2021 1:30pm 207 1000/mm3 140-440 MA[facility] LAB [facility] [address] [facility] [address] Platelet Count August 10, 2021 3:14pm 189 1000/mm3 140-440 MA[facility] LAB [facility] [address] [facility] [address] Platelet Count November 10, 2021 1:00pm 282 1000/mm3 140-440 MA[facility] [address] [address] Mean Platelet Volume January 02, 2021 4:44pm 10.7 fL 7.4-10.4 [facility] [address] [address] Mean Platelet Volume January 07, 2021 5:35pm 11.3 fL 7.4-10.4 [facility] [address] [address] Mean Platelet Volume January 29, 2021 9:57pm 10.6 fL 7.4-10.4 MAIN [facility] [address] [address] Mean Platelet Volume March 16, 2021 5:34pm 10.6 fL 7.4-10.4 MAIN LAB [facility] [address] [facility] [address] Mean Platelet Volume March 18, 2021 7:56pm 10.4 fL 7.4-10.4 MAIN LAB [address] [address] Mean Platelet Volume March 20, 2021 4:37pm 9.9 fL 7.4-10.4 [facility] [address] [address] Mean Platelet Volume August 07, 2021 1:30pm 11.0 fL 7.4-10.4 [facility] [address] [address] Mean Platelet Volume August 10, 2021 3:14pm 10.7 fL 7.4-10.[address] [address] Mean Platelet Volume November 10, 2021 1:00pm 10.5 fL 7.4-10.[address] [address] Neutrophils (%) (Auto) January 02, 2021 4:44pm 64.3 % 40.0-72.[address] [address] Neutrophils (%) (Auto) January 07, 2021 5:35pm 51.4 % 40.0-72.[address] [address] Neutrophils (%) (Auto) January 29, 2021 9:57pm 57.7 % 40.0-72.[address] [address] Neutrophils (%) (Auto) March 16, 2021 5:34pm 62.5 % 40.0-72.[address] [address] Neutrophils (%) (Auto) March 18, 2021 7:56pm 57.9 % 40.0-72.[address] [address] Neutrophils (%) (Auto) March 20, 2021 4:37pm 64.0 % 40.0-72.[address] [address] Neutrophils (%) (Auto) August 07, 2021 1:30pm 67.7 % 40.0-72.[address] [address] Neutrophils (%) (Auto) August 10, 2021 3:14pm 58.2 % 40.0-72.[address] [address] Neutrophils (%) (Auto) November 10, 2021 1:00pm 67.8 % 40.0-72.[address] [address] Lymphocytes (%) (Auto) January 02, 2021 4:44pm 26.3 % 17-45 MAIN LAB [address] [address] Lymphocytes (%) (Auto) January 07, 2021 5:35pm 37.7 % 17-45 MAIN LAB [address] [address] Lymphocytes (%) (Auto) January 29, 2021 9:57pm 32.6 % 17-45 [facility] [address] [address] Lymphocytes (%) (Auto) March 16, 2021 5:34pm 26.7 % 17-[address] [address] Lymphocytes (%) (Auto) March 18, 2021 7:56pm 30.4 % 17-[address] [address] Lymphocytes (%) (Auto) March 20, 2021 4:37pm 26.1 % 17-45 [facility] [address] [address] Lymphocytes (%) (Auto) August 07, 2021 1:30pm 24.2 % 17-[address] [address] Lymphocytes (%) (Auto) August 10, 2021 3:14pm 32.3 % 17-[address] [address] Lymphocytes (%) (Auto) November 10, 2021 1:00pm 23.4 % 17-45 [facility] [address] [address] Monocytes (%) (Auto) January 02, 2021 4:44pm 6.2 % 3-11 [facility] [address] [address] Monocytes (%) (Auto) January 07, 2021 5:35pm 6.0 % 3-11 [facility] [address] [address] Monocytes (%) (Auto) January 29, 2021 9:57pm 6.5 % 3-11 [facility] [address] [address] Monocytes (%) (Auto) March 16, 2021 5:34pm 6.9 % 3-11 [facility] [address] [address] Monocytes (%) (Auto) March 18, 2021 7:56pm 7.2 % 3-11 [facility] [address] [address] Monocytes (%) (Auto) March 20, 2021 4:37pm 5.9 % 3-11 MAIN LAB [address] [address] Monocytes (%) (Auto) August 07, 2021 1:30pm 5.9 % 3-[address] [address] Monocytes (%) (Auto) August 10, 2021 3:14pm 6.6 % 3-[address] [address] Monocytes (%) (Auto) November 10, 2021 1:00pm 4.7 % 3-11 [facility] [address] [address] Eosinophils (%) (Auto) January 02, 2021 4:44pm 2.2 % 0-[address] [address] Eosinophils (%) (Auto) January 07, 2021 5:35pm 3.2 % 0-[address] [address] Eosinophils (%) (Auto) January 29, 2021 9:57pm 1.7 % 0-3 [facility] [address] [address] Eosinophils (%) (Auto) March 16, 2021 5:34pm 2.6 % 0-3 [facility] [address] [address] Eosinophils (%) (Auto) March 18, 2021 7:56pm 3.2 % 0-3 [facility] [address] [address] Eosinophils (%) (Auto) March 20, 2021 4:37pm 2.8 % 0-[address] [address] Eosinophils (%) (Auto) August 07, 2021 1:30pm 1.2 % 0-[address] [address] Eosinophils (%) (Auto) August 10, 2021 3:14pm 2.1 % 0-[address] [address] Eosinophils (%) (Auto) November 10, 2021 1:00pm 3.1 % 0-[address] [address] Basophils (%) (Auto) January 02, 2021 4:44pm 0.9 % 0-[address] [address] Basophils (%) (Auto) January 07, 2021 5:35pm 1.5 % 0-[address] [address] Basophils (%) (Auto) January 29, 2021 9:57pm 1.2 % 0-[address] [address] Basophils (%) (Auto) March 16, 2021 5:34pm 1.1 % 0-[address] [address] Basophils (%) (Auto) March 18, 2021 7:56pm 1.1 % 0-[address] [address] Basophils (%) (Auto) March 20, 2021 4:37pm 1.0 % 0-[address] [address] Basophils (%) (Auto) August 07, 2021 1:30pm 0.8 % 0-[address] [address] Basophils (%) (Auto) August 10, 2021 3:14pm 0.6 % 0-[address] [address] Basophils (%) (Auto) November 10, 2021 1:00pm 0.6 % 0-[address] [address] Immature Granulocyte % (Auto) January 02, 2021 4:44pm 0.1 % 0-[address] [address] Immature Granulocyte % (Auto) January 07, 2021 5:35pm 0.2 % 0-[address] [address] Immature Granulocyte % (Auto) January 29, 2021 9:57pm 0.3 % 0-[address] [address] Immature Granulocyte % (Auto) March 16, 2021 5:34pm 0.2 % 0-[address] [address] Immature Granulocyte % (Auto) March 18, 2021 7:56pm 0.2 % 0-[address] [address] Immature Granulocyte % (Auto) March 20, 2021 4:37pm 0.2 % 0-[address] [address] Immature Granulocyte % (Auto) August 07, 2021 1:30pm 0.2 % 0-[address] [address] Immature Granulocyte % (Auto) August 10, 2021 3:14pm 0.2 % 0-[address] [address] Immature Granulocyte % (Auto) November 10, 2021 1:00pm 0.4 % 0-[address] [address] Neutrophils # (Auto) January 02, 2021 4:44pm 4.38 1000/mm3 1.4-6.[address] [address] Neutrophils # (Auto) January 07, 2021 5:35pm 2.74 1000/mm3 1.4-6.[address] [address] Neutrophils # (Auto) January 29, 2021 9:57pm 3.37 1000/mm3 1.4-6.5 MAIN [facility] [address] [address] Neutrophils # (Auto) March 16, 2021 5:34pm 3.82 1000/mm3 1.4-6.5 MAIN LAB [address] [address] Neutrophils # (Auto) March 18, 2021 7:56pm 3.04 1000/mm3 1.4-6.5 MAIN LAB [address] [address] Neutrophils # (Auto) March 20, 2021 4:37pm 3.16 1000/mm3 1.4-6.5 MAIN LAB [address] [address] Neutrophils # (Auto) August 07, 2021 1:30pm 3.35 1000/mm3 1.4-6.5 MAIN LAB [address] [address] Neutrophils # (Auto) August 10, 2021 3:14pm 2.81 1000/mm3 1.4-6.5 MAIN LAB [address] [address] Neutrophils # (Auto) November 10, 2021 1:00pm 3.33 1000/mm3 1.4-6.5 [facility] [address] [address] Lymphocytes # (Auto) January 02, 2021 4:44pm 1.79 1000/mm3 1.2-3.4 MA[facility] [address] [address] Lymphocytes # (Auto) January 07, 2021 5:35pm 2.01 1000/mm3 1.2-3.4 [facility] [address] [address] Lymphocytes # (Auto) January 29, 2021 9:57pm 1.91 1000/mm3 1.2-3.4 [facility] [address] [address] Lymphocytes # (Auto) March 16, 2021 5:34pm 1.63 1000/mm3 1.2-3.4 MAIN [facility] [address] [address] Lymphocytes # (Auto) March 18, 2021 7:56pm 1.60 1000/mm3 1.2-3.4 [facility] [address] [address] Lymphocytes # (Auto) March 20, 2021 4:37pm 1.29 1000/mm3 1.2-3.4 [facility] [address] [address] Lymphocytes # (Auto) August 07, 2021 1:30pm 1.20 1000/mm3 1.2-3.4 MA[facility] LAB [address] [address] Lymphocytes # (Auto) August 10, 2021 3:14pm 1.56 1000/mm3 1.2-3.4 [facility] [address] [address] Lymphocytes # (Auto) November 10, 2021 1:00pm 1.15 1000/mm3 1.2-3.4 [facility] [address] [address] Monocytes # (Auto) January 02, 2021 4:44pm 0.42 1000/mm3 0.0-0.8 MAIN LAB [address] [address] Monocytes # (Auto) January 07, 2021 5:35pm 0.32 1000/mm3 0.0-0.8 [facility] [address] [address] Monocytes # (Auto) January 29, 2021 9:57pm 0.38 1000/mm3 0.0-0.8 MAIN LAB [address] [address] Monocytes # (Auto) March 16, 2021 5:34pm 0.42 1000/mm3 0.0-0.8 [facility] [address] [address] Monocytes # (Auto) March 18, 2021 7:56pm 0.38 1000/mm3 0.0-0.8 [facility] [address] [address] Monocytes # (Auto) March 20, 2021 4:37pm 0.29 1000/mm3 0.0-0.8 [facility] [address] [address] Monocytes # (Auto) August 07, 2021 1:30pm 0.29 1000/mm3 0.0-0.8 [facility] [address] [address] Monocytes # (Auto) August 10, 2021 3:14pm 0.32 1000/mm3 0.0-0.8 [facility] [address] [address] Monocytes # (Auto) November 10, 2021 1:00pm 0.23 1000/mm3 0.0-0.8 [facility] [address] [address] Eosinophils # (Auto) January 02, 2021 4:44pm 0.15 1000/mm3 0.0-0.7 [facility] [address] [address] Eosinophils # (Auto) January 07, 2021 5:35pm 0.17 1000/mm3 0.0-0.7 [facility] [address] [address] Eosinophils # (Auto) January 29, 2021 9:57pm 0.10 1000/mm3 0.0-0.7 [facility] [address] [address] Eosinophils # (Auto) March 16, 2021 5:34pm 0.16 1000/mm3 0.0-0.7 [facility] [address] [address] Eosinophils # (Auto) March 18, 2021 7:56pm 0.17 1000/mm3 0.0-0.7 [facility] [address] [address] Eosinophils # (Auto) March 20, 2021 4:37pm 0.14 1000/mm3 0.0-0.7 [facility] [address] [address] Eosinophils # (Auto) August 07, 2021 1:30pm 0.06 1000/mm3 0.0-0.7 [facility] [address] [address] Eosinophils # (Auto) August 10, 2021 3:14pm 0.10 1000/mm3 0.0-0.[address] [address] Eosinophils # (Auto) November 10, 2021 1:00pm 0.15 1000/mm3 0.0-0.[address] [address] Basophils # (Auto) January 02, 2021 4:44pm 0.06 1000/mm3 0.0-0.[address] [address] Basophils # (Auto) January 07, 2021 5:35pm 0.08 1000/mm3 0.0-0.[address] [address] Basophils # (Auto) January 29, 2021 9:57pm 0.07 1000/mm3 0.0-0.[address] [address] Basophils # (Auto) March 16, 2021 5:34pm 0.07 1000/mm3 0.0-0.[address] [address] Basophils # (Auto) March 18, 2021 7:56pm 0.06 1000/mm3 0.0-0.[address] [address] Basophils # (Auto) March 20, 2021 4:37pm 0.05 1000/mm3 0.0-0.[address] [address] Basophils # (Auto) August 07, 2021 1:30pm 0.04 1000/mm3 0.0-0.[address] [address] Basophils # (Auto) August 10, 2021 3:14pm 0.03 1000/mm3 0.0-0.[address] [address] Basophils # (Auto) November 10, 2021 1:00pm 0.03 1000/mm3 0.0-0.[address] [address] Absolute Immature Granulocyte (auto January 02, 2021 4:44pm 0.0 0-1 MAIN LAB [address] [address] Absolute Immature Granulocyte (auto January 07, 2021 5:35pm 0.0 0-1 MAIN LAB [address] [address] Absolute Immature Granulocyte (auto January 29, 2021 9:57pm 0.0 0-1 MAIN LAB [address] [address] Absolute Immature Granulocyte (auto March 16, 2021 5:34pm 0.0 0-1 MAIN LAB [address] [address] Absolute Immature Granulocyte (auto March 18, 2021 7:56pm 0.0 0-1 MAIN LAB [address] [address] Absolute Immature Granulocyte (auto March 20, 2021 4:37pm 0.0 0-1 MAIN LAB [address] [address] Absolute Immature Granulocyte (auto August 07, 2021 1:30pm 0.0 0-1 MAIN LAB [address] [address] Absolute Immature Granulocyte (auto August 10, 2021 3:14pm 0.0 0-1 MAIN LAB [address] [address] Absolute Immature Granulocyte (auto November 10, 2021 1:00pm 0.0 0-1 MAIN LAB [address] [address] Differential Method January 02, 2021 4:44pm Automated MAIN LAB [address] [address] Differential Method January 07, 2021 5:35pm Automated MAIN LAB [address] [address] Differential Method January 29, 2021 9:57pm Automated MAIN LAB [address] [address] Differential Method March 16, 2021 5:34pm Automated MAIN LAB [address] [address] Differential Method March 18, 2021 7:56pm Automated MAIN LAB [address] [address] Differential Method March 20, 2021 4:37pm Automated MAIN LAB [address] [address] Differential Method August 07, 2021 1:30pm Automated MAIN LAB [address] [address] Differential Method August 10, 2021 3:14pm Automated MAIN LAB [address] [address] Differential Method November 10, 2021 1:00pm Automated MAIN LAB [address] [address] Urine Color January 02, 2021 6:04pm Lauren MAIN LAB [address] [address] Urine Clarity January 02, 2021 6:04pm very cloudy MAIN LAB [address] [address] Urine pH January 02, 2021 6:04pm 6.0 5.0-8.0 MAIN LAB [address] [address] Urine Specific [place] January 02, 2021 6:04pm 1.015 1.001-1.03 5 MAIN LAB [address] [address] Urine Protein January 02, 2021 6:04pm 100 (2+) mg/dL NEGATIVE MAIN LAB [address] [address] Urine Glucose (UA) January 02, 2021 6:04pm Normal mg/dL NORMAL MAIN LAB [address] [address] Urine Ketones January 02, 2021 6:04pm Negative NEGATIVE MAIN LAB [address] [address] Urine Nitrite January 02, 2021 6:04pm Negative Negative MAIN LAB [address] [address] Urine Bilirubin January 02, 2021 6:04pm Negative mg/dL NEGATIVE MAIN LAB [address] [address] Urine Urobilinogen January 02, 2021 6:04pm Normal mg/dL NORMAL MAIN LAB [address] [address] Urine Leukocyte Esterase January 02, 2021 6:04pm Moderate (2+) WBC/uL NEGATIVE MAIN LAB [address] [address] Urine Blood January 02, 2021 6:04pm Large (3+) JOEL/uL NEGATIVE MAIN LAB [address] [address] Urine RBC January 02, 2021 6:04pm Tntc /hpf 0-2 MAIN LAB [address] [address] Urine RBC March 16, 2021 6:40pm Tntc /hpf 0-2 MAIN LAB [address] [address] Urine RBC June 27, 2021 4:10pm 0-2 /hpf 0-2 MAIN LAB [address] [address] Urine WBC January 02, 2021 6:04pm 3-5 /hpf 0-5 MAIN LAB [address] [address] Urine WBC March 16, 2021 6:40pm See comment /hpf 0-5 Microscopic field obscured by RBC. MAIN LAB [address] [address] Urine WBC June 27, 2021 4:10pm None seen /hpf 0-5 MAIN LAB [address] [address] Urine Squamous Epithelial Cells January 02, 2021 6:04pm 1+ /hpf MAIN LAB [address] [address] Urine Squamous Epithelial Cells June 27, 2021 4:10pm 2+ /hpf MAIN LAB [address] [address] Urine Bacteria January 02, 2021 6:04pm None seen /hpf NONE SEEN MAIN LAB [address] [address] Urine Bacteria March 16, 2021 6:40pm See comment /hpf NONE SEEN Microscopic field obscured by RBC. MAIN LAB [address] [address] Urine Bacteria June 27, 2021 4:10pm 1+ /hpf NONE SEEN MAIN LAB [place] 920158 Urine Mucus June 27, 2021 4:10pm Present MAIN LAB [facility] [address] [facility] [address] Urine Culture Done January 02, 2021 6:04pm Yes URINE SPECIMEN CULTURED MAIN LAB [facility] [address] [facility] [address] Urine Culture Done March 16, 2021 6:40pm Yes URINE SPECIMEN CULTURED MAIN LAB [address] [address] Urine Culture Done June 27, 2021 4:10pm No CULTURE NOT INDICATED. MAIN LAB [address] [address] Urine Test January 02, 2021 6:04pm Negative NEGATIVE MAIN LAB [facility] [address] [facility] [address] Sodium Level January 02, 2021 4:44pm 141 mmol/L 137-145 MAIN LAB [address] [address] Sodium Level January 07, 2021 5:35pm 140 mmol/L 137-145 MAIN LAB [facility] [address] [facility] [address] Sodium Level January 29, 2021 9:57pm 137 mmol/L 137-145 MAIN LAB [facility] [address] [facility] [address] Sodium Level March 16, 2021 5:34pm 137 mmol/L 137-145 MAIN LAB [facility] [address] [facility] [address] Sodium Level March 18, 2021 7:56pm 141 mmol/L 137-145 MAIN LAB [facility] [address] [facility] [address] Sodium Level March 20, 2021 5:04pm 140 mmol/L 137-145 MAIN LAB [facility] [address] [facility] [address] Sodium Level August 07, 2021 1:30pm 141 mmol/L 137-145 MAIN LAB [facility] [address] [facility] [address] Sodium Level August 10, 2021 3:14pm 140 mmol/L 137-145 MAIN LAB [facility] [address] [facility] [address] Sodium Level November 10, 2021 1:00pm 139 mmol/L 137-145 MAIN LAB [facility] [address] [facility] [address] Potassium Level January 02, 2021 4:44pm 3.9 mmol/L 3.6-5.0 MAIN LAB [facility] [address] [facility] [address] Potassium Level January 07, 2021 5:35pm 3.7 mmol/L 3.6-5.0 MAIN LAB [facility] [address] [facility] [address] Potassium Level January 29, 2021 9:57pm 3.5 mmol/L 3.6-5.0 MAIN LAB [facility] [address] [facility] [address] Potassium Level March 16, 2021 5:34pm 4.0 mmol/L 3.6-5.0 MAIN LAB [facility] [address] [facility] [address] Potassium Level March 18, 2021 7:56pm 3.4 mmol/L 3.6-5.0 MAIN LAB [address] [address] Potassium Level March 20, 2021 5:04pm 3.8 mmol/L 3.6-5.0 MAIN LAB [address] [address] Potassium Level August 07, 2021 1:30pm 4.3 mmol/L 3.6-5.0 MAIN LAB [facility] [address] [facility] [address] Potassium Level August 10, 2021 3:14pm 4.0 mmol/L 3.6-5.0 MAIN LAB [facility] [address] [facility] [address] Potassium Level November 10, 2021 1:00pm 4.2 mmol/L 3.6-5.0 MAIN LAB [facility] [address] [facility] [address] Chloride Level January 02, 2021 4:44pm 104 mmol/L 98-107 MAIN LAB [facility] [address] [facility] [address] Chloride Level January 07, 2021 5:35pm 103 mmol/L 98-107 MAIN LAB [facility] [address] [facility] [address] Chloride Level January 29, 2021 9:57pm 99 mmol/L 98-107 MAIN LAB [facility] [address] [facility] [address] Chloride Level March 16, 2021 5:34pm 102 mmol/L 98-107 MAIN LAB [facility] [address] [facility] [address] Chloride Level March 18, 2021 7:56pm 102 mmol/L 98-107 MAIN LAB [facility] [address] [facility] [address] Chloride Level March 20, 2021 5:04pm 103 mmol/L 98-107 MAIN LAB [facility] [address] [facility] [address] Chloride Level August 07, 2021 1:30pm 105 mmol/L 98-107 MAIN LAB [address] [address] Chloride Level August 10, 2021 3:14pm 103 mmol/L 98-107 MAIN LAB [address] [address] Chloride Level November 10, 2021 1:00pm 104 mmol/L 98-107 MAIN LAB [address] [address] Carbon Dioxide Level January 02, 2021 4:44pm 26 mmol/L 22-30 MAIN LAB [address] [address] Carbon Dioxide Level January 07, 2021 5:35pm 27 mmol/L 22-30 MAIN LAB [address] [address] Carbon Dioxide Level January 29, 2021 9:57pm 27 mmol/L 22-30 MAIN LAB [facility] [address] [facility] [address] Carbon Dioxide Level March 16, 2021 5:34pm 28 mmol/L 22-30 MAIN LAB [address] [address] Carbon Dioxide Level March 18, 2021 7:56pm 29 mmol/L 22-30 MAIN LAB [address] [address] Carbon Dioxide Level March 20, 2021 5:04pm 27 mmol/L 22-30 MAIN LAB [address] [address] Carbon Dioxide Level August 07, 2021 1:30pm 24 mmol/L 22-30 MAIN LAB [address] [place] [address] Carbon Dioxide Level August 10, 2021 3:14pm 26 mmol/L MAIN LAB [facility] [address] [facility] [address] Carbon Dioxide Level November 10, 2021 1:00pm 24 mmol/L MAIN LAB [facility] [address] [facility] [address] Anion Gap January 02, 2021 4:44pm 11 -16 MAIN LAB [facility] [address] [facility] [address] Anion Gap January 07, 2021 5:35pm 10 -16 MAIN LAB [address] [address] Anion Gap January 29, 2021 9:57pm 11 7-16 MAIN LAB [address] [address] Anion Gap March 16, 2021 5:34pm 7 -16 MAIN LAB [address] [address] Anion Gap March 18, 2021 7:56pm 10 7-16 MAIN LAB [address] [address] Anion Gap March 20, 2021 5:04pm 10 7-16 MAIN LAB [address] [address] Anion Gap August 07, 2021 1:30pm 12 7-16 MAIN LAB [address] [address] Anion Gap August 10, 2021 3:14pm 11 -16 MAIN LAB [facility] [address] [facility] [address] Anion Gap November 10, 2021 1:00pm 11 -16 MAIN LAB [facility] [address] [facility] [address] Blood Urea Nitrogen January 02, 2021 4:44pm 11 mg/dL 11-28 MAIN LAB [facility] [address] [facility] [address] Blood Urea Nitrogen January 07, 2021 5:35pm 13 mg/dL 11-28 MAIN LAB [facility] [address] [facility] [address] Blood Urea Nitrogen January 29, 2021 9:57pm 13 mg/dL 7-17 MAIN LAB [facility] [address] [facility] [address] Blood Urea Nitrogen March 16, 2021 5:34pm 10 mg/dL 7-17 MAIN LAB [facility] [address] [facility] [address] Blood Urea Nitrogen March 18, 2021 7:56pm 10 mg/dL 7- MAIN LAB [address] [address] Blood Urea Nitrogen March 20, 2021 5:04pm 5 mg/dL 7- MAIN LAB [address] [address] Blood Urea Nitrogen August 07, 2021 1:30pm 14 mg/dL 7- MAIN LAB [address] [address] Blood Urea Nitrogen August 10, 2021 3:14pm 7 mg/dL 7- MAIN LAB [address] [address] Blood Urea Nitrogen November 10, 2021 1:00pm 7 mg/dL 7- MAIN LAB [address] [address] Creatinine January 02, 2021 4:44pm 0.76 mg/dL 0.52-1.04 MAIN LAB [address] [address] Creatinine January 07, 2021 5:35pm 0.79 mg/dL 0.52-1.04 MAIN LAB [address] [address] Creatinine January 29, 2021 9:57pm 0.84 mg/dL 0.52-1.04 MAIN LAB [address] [address] Creatinine March 16, 2021 5:34pm 0.62 mg/dL 0.52-1.04 MAIN LAB [address] [address] Creatinine March 18, 2021 7:56pm 0.66 mg/dL 0.52-1.04 MAIN LAB [address] [address] Creatinine March 20, 2021 5:04pm 0.59 mg/dL 0.52-1.04 MAIN LAB [address] [address] Creatinine August 07, 2021 1:30pm 0.65 mg/dL 0.52-1.[address] [address] Creatinine August 10, 2021 3:14pm 0.60 mg/dL 0.52-1.[address] [address] Creatinine November 10, 2021 1:00pm 0.76 mg/dL 0.52-1.[address] [address] Glomerular Filtration Rate Calc January 02, 2021 4:44pm > 60 mL/min >60.[address] [address] Glomerular Filtration Rate Calc January 07, 2021 5:35pm > 60 mL/min >60.[address] [address] Glomerular Filtration Rate Calc January 29, 2021 9:57pm > 60 mL/min >60.[address] [address] Glomerular Filtration Rate Calc March 16, 2021 5:34pm > 60 mL/min >60.[address] [address] Glomerular Filtration Rate Calc March 18, 2021 7:56pm > 60 mL/min >60.[address] [address] Glomerular Filtration Rate Calc March 20, 2021 5:04pm > 60 mL/min >60.[address] [address] Glomerular Filtration Rate Calc August 07, 2021 1:30pm > 60 mL/min >60.[address] [address] Glomerular Filtration Rate Calc August 10, 2021 3:14pm > 60 mL/min >60.[address] [address] Glomerular Filtration Rate Calc November 10, 2021 1:00pm > 60 mL/min >60.[address] [address] Glucose Level January 02, 2021 4:44pm 88 mg/dL 70-100 MAIN LAB [facility] [address] [facility] [address] Glucose Level January 07, 2021 5:35pm 105 mg/dL 70-100 MAIN LAB [facility] [address] [facility] [address] Glucose Level January 29, 2021 9:57pm 92 mg/dL 70-100 MAIN LAB [facility] [address] [facility] [address] Glucose Level March 16, 2021 5:34pm 90 mg/dL 70-100 MAIN LAB [facility] [address] [facility] [address] Glucose Level March 18, 2021 7:56pm 84 mg/dL 70-100 MAIN LAB [address] [address] Glucose Level March 20, 2021 5:04pm 91 mg/dL 70-100 MAIN LAB [address] [address] Glucose Level August 07, 2021 1:30pm 100 mg/dL 70-100 MAIN LAB [address] [address] Glucose Level August 10, 2021 3:14pm 85 mg/dL 70-100 MAIN LAB [address] [address] Glucose Level November 10, 2021 1:00pm 95 mg/dL 70-100 MAIN LAB [address] [address] Calcium Level January 02, 2021 4:44pm 9.3 mg/dL 8.4-10.2 MAIN LAB [facility] [address] [facility] [address] Calcium Level January 07, 2021 5:35pm 9.6 mg/dL 8.4-10.2 MAIN LAB [facility] [address] [facility] [address] Calcium Level January 29, 2021 9:57pm 9.8 mg/dL 8.4-10.2 MAIN LAB [facility] [address] [facility] [address] Calcium Level March 16, 2021 5:34pm 9.5 mg/dL 8.4-10.2 MAIN LAB [facility] [address] [facility] [address] Calcium Level March 18, 2021 7:56pm 9.3 mg/dL 8.4-10.2 MAIN LAB [facility] [address] [facility] [address] Calcium Level March 20, 2021 5:04pm 9.4 mg/dL 8.4-10.2 MAIN LAB [address] [address] Calcium Level August 07, 2021 1:30pm 9.8 mg/dL 8.4-10.2 MAIN LAB [address] [address] Calcium Level August 10, 2021 3:14pm 9.2 mg/dL 8.4-10.2 MAIN LAB [address] [address] Calcium Level November 10, 2021 1:00pm 9.6 mg/dL 8.4-10.2 MAIN LAB [address] [address] Calcium Adjusted for Albumin January 02, 2021 4:44pm 8.8 mg/dL 8.4-10.2 MAIN LAB [address] [address] Calcium Adjusted for Albumin January 07, 2021 5:35pm 9.3 mg/dL 8.4-10.2 MAIN LAB [address] [address] Calcium Adjusted for Albumin March 16, 2021 5:34pm 9.4 mg/dL 8.4-10.2 MAIN LAB [address] [address] Calcium Adjusted for Albumin March 18, 2021 7:56pm 9.1 mg/dL 8.4-10.2 MAIN LAB [address] [address] Calcium Adjusted for Albumin August 07, 2021 1:30pm 9.2 mg/dL 8.4-10.2 MAIN LAB [address] [address] Total Bilirubin January 02, 2021 4:44pm 0.4 mg/dL 0.2-1.3 MAIN LAB [address] [address] Total Bilirubin January 07, 2021 5:35pm 0.4 mg/dL 0.2-1.3 MAIN LAB [address] [address] Total Bilirubin March 16, 2021 5:34pm 0.4 mg/dL 0.2-1.3 MAIN LAB [address] [address] Total Bilirubin March 18, 2021 7:56pm 0.4 mg/dL 0.2-1.3 MAIN LAB [address] [address] Total Bilirubin August 07, 2021 1:30pm 0.6 mg/dL 0.2-1.3 MAIN LAB [address] [address] Aspartate Amino Transf (AST/SGOT) January 02, 2021 4:44pm 39 U/L 14-36 MAIN LAB [address] [address] Aspartate Amino Transf (AST/SGOT) January 07, 2021 5:35pm 38 U/L 14-36 MAIN LAB [address] [address] Aspartate Amino Transf (AST/SGOT) March 16, 2021 5:34pm 36 U/L 14-36 [facility] [address] [address] Aspartate Amino Transf (AST/SGOT) March 18, 2021 7:56pm 37 U/L 14-36 [facility] LAB [address] [address] Aspartate Amino Transf (AST/SGOT) August 07, 2021 1:30pm 48 U/L 14-36 MAIN LAB [address] [address] Alanine Aminotransferase (ALT/SGPT) January 02, 2021 4:44pm 21 U/L <35 As of 09/13/19, the Reference Range for ALT/SGPT for adult patients has been updated. The Reference Range for ALT/SGPT has not been established for patients <18 years of age. MAIN LAB [address] [address] Alanine Aminotransferase (ALT/SGPT) January 07, 2021 5:35pm 23 U/L <35 As of 09/13/19, the Reference Range for ALT/SGPT for adult patients has been updated. The Reference Range for ALT/SGPT has not been established for patients <18 years of age. MAIN LAB [address] [address] Alanine Aminotransferase (ALT/SGPT) March 16, 2021 5:34pm 17 U/L <35 As of 09/13/19, the Reference Range for ALT/SGPT for adult patients has been updated. The Reference Range for ALT/SGPT has not been established for patients <18 years of age. MAIN LAB [address] [address] Alanine Aminotransferase (ALT/SGPT) March 18, 2021 7:56pm 19 U/L <35 As of 09/13/19, the Reference Range for ALT/SGPT for adult patients has been updated. The Reference Range for ALT/SGPT has not been established for patients <18 years of age. MAIN LAB [address] [address] Alanine Aminotransferase (ALT/SGPT) August 07, 2021 1:30pm 36 U/L <35 As of 09/13/19, the Reference Range for ALT/SGPT for adult patients has been updated. The Reference Range for ALT/SGPT has not been established for patients <18 years of age. MAIN LAB [address] [address] Lactic Acid Level March 18, 2021 7:56pm 1.0 mmol/L 0.7-2.1 MAIN LAB [address] [address] Total Protein January 02, 2021 4:44pm 7.9 g/dL 6.3-8.2 MAIN LAB [address] [address] Total Protein January 07, 2021 5:35pm 7.7 g/dL 6.3-8.2 MAIN LAB [address] [address] Total Protein March 16, 2021 5:34pm 7.2 g/dL 6.3-8.2 MAIN LAB [address] [address] Total Protein March 18, 2021 7:56pm 7.6 g/dL 6.3-8.2 MAIN LAB [address] [address] Total Protein August 07, 2021 1:30pm 8.3 g/dL 6.3-8.2 MAIN LAB [address] [address] Albumin January 02, 2021 4:44pm 4.9 g/dL 3.5-5.0 MAIN LAB [address] [address] Albumin January 07, 2021 5:35pm 4.7 g/dL 3.5-5.0 MAIN LAB [address] [address] Albumin March 16, 2021 5:34pm 4.4 g/dL 3.5-5.0 MAIN LAB [address] [address] Albumin March 18, 2021 7:56pm 4.6 g/dL 3.5-5.0 MAIN LAB [address] [address] Albumin August 07, 2021 1:30pm 5.0 g/dL 3.5-5.0 MAIN LAB [address] [address] Alkaline Phosphatase January 02, 2021 4:44pm 58 U/L 38-126 MAIN LAB [address] [address] Alkaline Phosphatase January 07, 2021 5:35pm 58 U/L 38-126 MAIN LAB [address] [address] Alkaline Phosphatase March 16, 2021 5:34pm 45 U/L 38-126 MAIN LAB [address] [address] Alkaline Phosphatase March 18, 2021 7:56pm 47 U/L 38-126 MAIN LAB [address] [address] Alkaline Phosphatase August 07, 2021 1:30pm 58 U/L 38-126 MAIN LAB [address] [address] Lipase August 07, 2021 1:30pm 64 U/L 23-300 MAIN LAB [address] [address] Microbiology Results Procedure Source Result Collection Date/Time Result Date/Time Result Comment Performing Site Blood Culture Blood, Left Antecubital NO GROWTH AFTER 5 DAYS March 24, 2021 7:15am MAIN LAB [address] [address] Urine Culture Ur,Clean Catch March 18, 2021 10:45am MAIN LAB [address] [address] Urine Culture Ur,Clean Catch January 04, 2021 8:36am MAIN LAB [address] [address] Gram Stain Umbilicus March 17, 2021 8:17am [facility] [address] [address] Routine Culture Umbilicus Staphylococcus Aureus-Mrsa March 20, 2021 8:34am [facility] [address] [address] Diagnostic Imaging Reports Report Dictated Date/Time Dictated By Status Radiology Report January 02, 2021 5:42pm Megan Balderas MD completed [facility] CAT SCAN REPORT PATIENT NAME: [...] By : Megan Morales MD dd: 01/02/21 [id number] Report Dictated Date/Time Dictated By Status Radiology Report March 16, 2021 8:09pm Tiburcio Heaton MD completed [facility] CAT SCAN REPORT PATIENT NAME: [...] had a laporoscopy compelted on 03/05/21, at [facility] in [place]. States she is having sharp cramping stabbing [...] 07, 2021 4:03pm Yuli Jiang DO completed [facility] CAT SCAN REPORT PATIENT NAME: [...] Reference Range Collection Date/Time Weight 90.71 kg December 29 4:32pm Body [...] January 02 7:20pm Respiratory rate 18 /min 12-24 December 7:20pm Oxygen saturation by Pulse oximetry 96 [...] 2021 11:00pm Weight 92.98 kg March 16, 3:55pm Body Temperature 99.0 [degF] 97.6-99.6 March [...] 2 021 8:33pm Respiratory rate 16 /min -March 8:33pm Oxygen saturation by Pulse oximetry 99 [...] 2 021 5:00pm Respiratory rate 17 /min -March 5:00pm Oxygen saturation by Pulse oximetry 100 [...] August 10 5:10pm Respiratory rate 18 /min 12-August 10, 2021 5:10pm Oxygen saturation by Pulse oximetry 98 % 95-100 August 10, 2021 5:1 0pm BP Systolic 124 mm[Hg] 100-140 August 10 5:10pm BP Diastolic 69 mm[Hg] 50-85 August 10 5:10pm Weight 86.18 kg August 26 5:37pm Body Temperature 97.8 [degF] 97.6-99.6 August 26, 2021 5:37pm Heart Rate 78 /min 60-100 August 26 5:37pm Respiratory rate 18 /min 12-24 August 26, 2021 5:37pm Oxygen saturation by Pulse oximetry 100 % 95-100 August 26, 2021 5:3 7pm BP Systolic 105 mm[Hg] 100-140 August 26 5:37pm BP Diastolic 61 mm[Hg] 50-85 August 26 5:37pm Weight 79.37 kg September 23, 2021 3:18pm Body Temperature 98.3 [degF] 97.6-99.6 September 23, 022 3:18pm Heart Rate 72 /min 60-100 September 23, 2021 7:21pm Respiratory rate 18 /min -September 23 022 7:21pm Oxygen saturation by Pulse oximetry 100 % 95-100 September 23, 2021 7:21p m BP Systolic 105 mm[Hg] 100-140 September 23, 2021 7:21pm BP Diastolic 70 mm[Hg] 50-85 September 23, 2021 7:21pm Weight 77.11 kg November 10, 2021 11:44am [...] 55 mm[Hg] 50-85 November 10, 2021 5:51pm Advance Directives Advance Directive Response Recorded Date/ Time Does patient have an Advanced Directive? No October 14, 2020 11:22pm Do we have a copy on file here at [facility]? No October 14, 2020 11:22pm Pt has a Living Will? No October 14, 2020 11:22pm Do we have a copy on file here at [facility]? No October 14, 2020 11:22pm Pt has a Power of Teasel Setter? No October 14, 2020 11:22pm Do we have a copy on file here at [facility]? No October 14, 2020 11:22pm Insurance Providers Guarantor DEUARDO PAYAN Address [address] [facility] [address] Contact Info. Home Phone: Payer Policy Id Coverage Id Subscriber's Name Subscriber Id Effective Date Expiration Date MIGUEL ANGEL MCNAMARA [id number] EDUARDO PAYAN [id number] SELF PAY Self N/A Encounters Encounter Location(s) Arrival/Admit Date Discharge/Depart Date Provider(s) Departed Emergency [facility]gency Department December 29, 2020 4:23pm December 29, 2020 7:13pm null Departed Emergency [facility] January 02, 2021 4:12pm January 02, 2021 7:22pm null Departed Emergency [facility] January 07, 2021 4:48pm January 07, 2021 6:55pm null Departed Emergency [facility] January 21, 2021 2:24pm [...] 2021 3:02pm September 23, 2021 7:35pm null Departed Emergency [facility] Department November 10, 2021 11:22am November 10, 2021 5:45pm null Functional Status Observation Response Date Recorded Living Situation Home November 10, 2021 5:45pm Mental Status Observation Response Date Recorded Comprehension [...] 18 8:30pm Mood/Behavior Appropriate March 18 8:30pm Plan of Treatment Future Tests Future scheduled test information is unavailable Pending Tests Pending diagnostic test information is unavailable Future Visits Future appointment information is unavailable Referrals to Other Providers Reason for Referral Referral Start Date Provider Provider Contact Information Provider Address [facility] Work Phone: [place] [address] [place] Out [place] Emely holloway MD Work Phone: [facility] [address] [place] [phone] Chavez and will see for US [facility] Work Phone: [address] [place] [phone] No Pcp Mahad Chavez MD Work Phone: [facility] [address] [place] [phone] No Pcp No Pcp No Pcp No Pcp Emely holloway MD Work Phone: [facility] COORD[facility] [address] [place] [phone] Out Town [facility] Work Phone: [facility] [address] [facility] [phone] Out Town [facility] Work Phone: [address] [place] [phone] No Pcp No Pcp Future Procedures Future procedure information is unavailable Future Medications Future medication information is unavailable Patient Instructions Dental Pain (DC) Severe Abdominal Pain, Adult [...] ED Hospital Discharge Instructions Additional Instructions Return to the emergency department if your bleeding worsens or if you pass out or if you develop fever. Otherwise call Dr. Bowen's office to be seen in the next few days as an outpatient.
--- OUTSIDE RECORDS SUMMARY | 2022-11-20 17:45 | XMS_ITS | Continuity of Care Document ---
Author Name Unknown Address [address] [place] [address] Phone [facility] Address [address] [place] [address] Phone Care Team Providers Care Accountant Auditor Name Role Phone PCP, of Choice Primary Care Provider Unavailabl e Out of Town, Provider Primary Care Provider Unav ailable Chief Complaint and Reason for Visit Chief Complaint LEFT FLANK PAIN ORAL INFECTION RECTAL BLEEDING abdominal pain OVARIAN CYST POST OP CONCERN ABDOMINAL PAIN HEAVY VAG BLEEDING FALL/ BACK COMPLAINT PELVIC PAIN RIGHT SIDE PAIN Allergies, Adverse Reactions, Alerts Allergen Type Severity Reaction Last Updated Verified Status droperidol Allergy anaphylactic shock Februa 2021 3:37pm Yes Active haloperidol Allergy rash January 3:08pm Yes Active ibuprofen Allergy June 27, 2021 3:37pm Yes Active ketorolac Allergy anaphylaxis December 29, 2020 4:35pm Yes Active latex Allergy rash December 29, 2020 4:35pm Yes Active Penicillins Allergy hives December 29, 2020 4:35pm Yes Active prochlorperazine Allergy hives December 132020 4:35pm Yes Active Social History Smoking Status Status Start Date End Date Date of Observa tion Never smoked tobacco (finding) August 07, 2021 3:17pm Observation Status Observation Response Date of Response Alcohol Use Yes August 07, 2021 3:17pm alcohol intake frequency a few times a month [facility] 2021 3:17pm Alcohol type hard liquor August 07, 2021 3:17pm Substance/Street Drug Use Yes August 07, 2021 3:17pm substance use type marijuana August 07, 2 022 3:17pm Smoking Status Never smoker August 07, 2021 3:17pm Additional Data Assigned Sex Female Problems Active Problems Medical Problem Onset Date Status Abdominal pain, RLQ Active Hx of endometriosis Active Constipation Active Inactive/Resolved Problems Medical Problem Onset Date Status Ovarian cyst Resolved Pelvic pain Resolved Functional abdominal pain syndrome Resolved Diarrhea Resolved Gastritis Resolved MRSA (methicillin resistant Staphylococcus aureu s) infection Resolved Post-operative pain Resolved Pain, dental Resolved Pain, dental Resolved Vaginal bleeding Resolved Iron deficiency anemia Resolved Abdominal pain Resolved Abdominal pain Resolved Abdominal pain Resolved Abdominal pain Resolved Endometriosis Resolved Vomiting Resolved Hemorrhagic cyst of left [...] MG PO DAILY October 15, 2020 2:57pm Novem er 2020 5:42pm Hydrocodone- Acetaminophe n Discontin ued TABLET December 29, 2020 4:35pm January 07, 2021 5:04pm Cefdinir Discontin ued 300 MG PO TWICE A DAY 20 er 2020 4:03pm Septem rinku 2020 9:07pm Tramadol Discontin ued 50 MG PO Q8H 10 [facility] 2020 4:44pm Septem rinku 2020 9:06pm Montelukast Active 10 MG PO DAILY 2021 3:37pm Omeprazole Discontin ued 20 MG PO DAILY 2021 3:37pm August 07, 2021 12:12p m Cephalexin Discontin ued 500 MG PO FOUR TIMES DAILY 2021 4:42pm August 07, 2021 12:12p m Tramadol (Ultram) 50 mg Tablet Discontin ued 50 MG PO Q6H 7 2021 4:44pm August 07, 2021 12:12p m Gabapentin Active 200 MG PO DAILY January [...] PO DAILY January 08, 2021 1:50am Septem 2020 9:07pm Dicyclomine Discontin ued 10 MG PO .q6 prn January 08, 2021 1:51am Septem rinku 2020 3:08pm Oxycodone Discontin ued MG CAPSULE Novembe r 2020 3:59pm Februa ry 2021 3:37pm Fluticasone Propion-Salm eterol (Advair Hfa) 115-21 mcg/actuatio n HFA aerosol inhaler Active INH 2020 3:59pm Ondansetron Hcl (Zofran) 4 mg tablet Discontin ued 4 MG PO Q8H 12 4 r 2020 5:45pm Novemb er 2020 1:01am Sulfamethoxa zole-Trimeth oprim (Bactrim Ds) 800-160 mg tablet Discontin ued 1 TAB PO TWICE A DAY 14 r 2020 7:52pm Novemb er 2020 1:25pm Tizanidine Active 4 MG PO As Directed M arch 2021 12:12pm Ondansetron Active 4 - 8 MG PO Q8H 8 August 07, 2021 4:31pm Procedures Procedure Date Performed Status CT Abd Pel w/ Contrast August [...] 2021 completed Blood Culture March 18, 2021 completed Relevant Diagnostic Tests and/or Laboratory Data Laboratory Results Test Date/Time Result Interpretation Reference Range Result Comment Performing Site White Blood Count October 14, 2020 11:38pm 7.41 1000/mm3 4.8-10.8 MA[facility] [address] [place] [address]13 White Blood Count January 02, 2021 4:44pm 6.81 1000/mm3 4.8-10.8 MA[facility] [address] [address] White Blood Count January 07, 2021 5:35pm 5.33 1000/mm3 4.8-10.8 MA[facility] [address] [address] White Blood Count January 29, 2021 9:57pm 5.85 1000/mm3 4.8-10.8 MA[facility] [address] [address] White Blood Count March 16, 2021 5:34pm 6.11 1000/mm3 4.8-10.8 MA[facility] [address] [address] White Blood Count March 18, 2021 7:56pm 5.26 1000/mm3 4.8-10.8 MA[facility] [address] [address] White Blood Count March 20, 2021 4:37pm 4.94 1000/mm3 4.8-10.8 MA[facility] [address] [address] White Blood Count August 07, 2021 1:30pm 4.95 1000/mm3 4.8-10.8 [facility] [address] [address] Red Blood Count October 14, 2020 11:38pm 4.44 M/mm3 4.20-5.40 MA[facility] [address] [place] [address]42 Red Blood Count January 02, 2021 4:44pm 4.67 M/mm3 4.20-5.40 MA[facility] [address] [address] Red Blood Count January 07, 2021 5:35pm 4.85 M/mm3 4.20-5.40 MA[facility] [address] [address] Red Blood Count January 29, 2021 9:57pm 4.53 M/mm3 4.20-5.40 MA[facility] [address] [address]68 Red Blood Count March 16, 2021 5:34pm 4.26 M/mm3 4.20-5.40 MA[facility] [address] [address]78 Red Blood Count March 18, 2021 7:56pm 4.17 M/mm3 4.20-5.40 MA[facility] [address] [address] Red Blood Count March 20, 2021 4:37pm 4.14 M/mm3 4.20-5.40 MA[facility] [address] 9[address] Red Blood Count August 07, 2021 1:30pm 4.43 M/mm3 4.20-5.40 MAIN LAB [address] [place] [address] Hemoglobin October 14, 2020 11:38pm 9.2 g/dL 12.0-16.0 MA[facility] [address] [place] [address] Hemoglobin January 02, 2021 4:44pm 10.4 g/dL 12.0-16.0 MAIN LAB [facility] [address] [facility] [address] Hemoglobin January 07, 2021 5:35pm 10.8 g/dL 12.0-16.0 MA[facility] [address] [facility] [address] Hemoglobin January 29, 2021 9:57pm 10.4 g/dL 12.0-16.0 MA[facility] [address] [address] Hemoglobin March 16, 2021 5:34pm 9.9 g/dL 12.0-16.0 MA[facility] [address] [address] Hemoglobin March 18, 2021 7:56pm 9.9 g/dL 12.0-16.0 MA[facility] [address] [address] Hemoglobin March 20, 2021 4:37pm 9.8 g/dL 12.0-16.0 MA[facility] [address] [address] Hemoglobin August 07, 2021 1:30pm 11.4 g/dL 12.0-16.0 [facility] [address] [address] Hematocrit October 14, 2020 11:38pm 30.6 % 37-47 [facility] [address] [place] [address] 16262 Hematocrit January 02, 2021 4:44pm 35.2 % 37-47 [facility] [address] [address] Hematocrit January 07, 2021 5:35pm 36.3 % 37-47 [facility] [address] [address] Hematocrit January 29, 2021 9:57pm 33.7 % 37-47 [facility] [address] [address] Hematocrit March 16, 2021 5:34pm 33.2 % 37-47 MA[facility] [address] [facility] [address] Hematocrit March 18, 2021 7:56pm 32.9 % 37-47 MA[facility] [address] [facility] 21739 Hematocrit March 20, 2021 4:37pm 32.6 % 37-47 MA[facility] [address] [facility] 212[address] Hematocrit August 07, 2021 1:30pm 36.4 % 37-47 [facility] [address] [address] Mean Corpuscular Volume October 14, 2020 11:38pm 68.9 fL 81.0-99.0 [facility] [address] [place] [address]798 Mean Corpuscular Volume January 02, 2021 4:44pm 75.4 fL 81.0-99.0 MA[facility] [address] 25968 Mean Corpuscular Volume January 07, 2021 5:35pm 74.8 fL 81.0-99.0 MA[facility] [address] [address]1441 Mean Corpuscular Volume January 29, 2021 9:57pm 74.4 fL 81.0-99.0 MA[facility] [address] [address]604 Mean Corpuscular Volume March 16, 2021 5:34pm 77.9 fL 81.0-99.0 MA[facility] [address] 6[address]23 Mean Corpuscular Volume March 18, 2021 7:56pm 78.9 fL 81.0-99.0 [facility] [address] [address] Mean Corpuscular Volume March 20, 2021 4:37pm 78.7 fL 81.0-99.0 MA[facility] [address] 87344 Mean Corpuscular Volume August 07, 2021 1:30pm 82.2 fL 81.0-99.0 MA[facility] [address] [address]106 Mean Corpuscular Hemoglobin October 14, 2020 11:38pm 20.7 pg 27-31 MAIN [facility] [address] [place] [address] 34473 Mean Corpuscular Hemoglobin January 02, 2021 4:44pm 22.3 pg 27-31 MA[facility] LAB [facility] [address] [facility] [address] Mean Corpuscular Hemoglobin January 07, 2021 5:35pm 22.3 pg 27-31 MA[facility] [address] [address] Mean Corpuscular Hemoglobin January 29, 2021 9:57pm 23.0 pg 27-31 MA[facility] [address] 8[address] Mean Corpuscular Hemoglobin March 16, 2021 5:34pm 23.2 pg 27-31 MA[facility] [address] [address]60 Mean Corpuscular Hemoglobin March 18, 2021 7:56pm 23.7 pg 27-31 MA[facility] [address] [address]71 Mean Corpuscular Hemoglobin March 20, 2021 4:37pm 23.7 pg 27-31 MA[facility] [address] 6[address]66 Mean Corpuscular Hemoglobin August 07, 2021 1:30pm 25.7 pg 27-31 MA[facility] [address] 88524 Mean Corpuscular Hemoglobin Concent October 14, 2020 11:38pm 30.1 g/dL 33-37 MA[facility] [address] [place] [address] 97957 Mean Corpuscular Hemoglobin Concent January 02, 2021 4:44pm 29.5 g/dL 33-37 MA[facility] [address] [address] Mean Corpuscular Hemoglobin Concent January 07, 2021 5:35pm 29.8 g/dL 33-37 MA[facility] [address] [address]751 Mean Corpuscular Hemoglobin Concent January 29, 2021 9:57pm 30.9 g/dL 33-37 MA[facility] [address] 18[address] Mean Corpuscular Hemoglobin Concent March 16, 2021 5:34pm 29.8 g/dL 33-37 MA[facility] LAB [facility] [address] [facility] [address] Mean Corpuscular Hemoglobin Concent March 18, 2021 7:56pm 30.1 g/dL 33-37 MAIN [facility] [address] 7[address] Mean Corpuscular Hemoglobin Concent March 20, 2021 4:37pm 30.1 g/dL 33-37 MA[facility] [address] 58791 Mean Corpuscular Hemoglobin Concent August 07, 2021 1:30pm 31.3 g/dL 33-37 MA[facility] [address] 7[address]98 Red Cell Distribution Width October 14, 2020 11:38pm 16.8 % 11.5-14.5 MA[facility] [address] [place] [address] 13555 Red Cell Distribution Width January 02, 2021 4:44pm 19.4 % 11.5-14.5 MA[facility] [address] [address] Red Cell Distribution Width January 07, 2021 5:35pm 18.6 % 11.5-14.5 MAIN [facility] [address] 11431 Red Cell Distribution Width January 29, 2021 9:57pm 17.6 % 11.5-14.5 MA[facility] [address] [address]185 Red Cell Distribution Width March 16, 2021 5:34pm 16.2 % 11.5-14.5 MA[facility] [address] [address]71 Red Cell Distribution Width March 18, 2021 7:56pm 16.4 % 11.5-14.5 MA[facility] [address] 26561 Red Cell Distribution Width March 20, 2021 4:37pm 16.5 % 11.5-14.5 MA[facility] [address] 97848 Red Cell Distribution Width August 07, 2021 1:30pm 14.0 % 11.5-14.5 MA[facility] [address] [place] [address] Platelet Count October 14, 2020 11:38pm 250 1000/mm3 140-440 MA[facility] [address] [place] [address] 27855 Platelet Count January 02, 2021 4:44pm 216 1000/mm3 140-440 MA[facility] LAB [facility] [address] [facility] 19388 Platelet Count January 07, 2021 5:35pm 240 1000/mm3 140-440 MA[facility] LAB [facility] [address] [facility] 7[address] Platelet Count January 29, 2021 9:57pm 248 1000/mm3 140-440 MA[facility] [address] [address] Platelet Count March 16, 2021 5:34pm 220 1000/mm3 140-440 MA[facility] [address] [address] Platelet Count March 18, 2021 7:56pm 212 1000/mm3 140-440 MA[facility] [address] 85292 Platelet Count March 20, 2021 4:37pm 177 1000/mm3 140-440 MA[facility] [address] [address]46 Platelet Count August 07, 2021 1:30pm 207 1000/mm3 140-440 MA[facility] [address] [facility] 70[address] Mean Platelet Volume October 14, 2020 11:38pm 10.6 fL 7.4-10.4 MA[facility] [address] [place] [address] 47445 Mean Platelet Volume January 02, 2021 4:44pm 10.7 fL 7.4-10.4 MA[facility] [address] [address]87 Mean Platelet Volume January 07, 2021 5:35pm 11.3 fL 7.4-10.4 MA[facility] [address] [facility] 29673 Mean Platelet Volume January 29, 2021 9:57pm 10.6 fL 7.4-10.4 MAIN [facility] [address] [facility] 33588 Mean Platelet Volume March 16, 2021 5:34pm 10.6 fL 7.4-10.[address] [address] Mean Platelet Volume March 18, 2021 7:56pm 10.4 fL 7.4-10.[address] [address]379 Mean Platelet Volume March 20, 2021 4:37pm 9.9 fL 7.4-10.[address] [address]32 Mean Platelet Volume August 07, 2021 1:30pm 11.0 fL 7.4-10.[address] [address] Neutrophils (%) (Auto) October 14, 2020 11:38pm 60.3 % 40.0-72.[address] [address] Neutrophils (%) (Auto) January 02, 2021 4:44pm 64.3 % 40.0-72.[address] [address] Neutrophils (%) (Auto) January 07, 2021 5:35pm 51.4 % 40.0-72.[address] [address] Neutrophils (%) (Auto) January 29, 2021 9:57pm 57.7 % 40.0-72.[address] [address]754 Neutrophils (%) (Auto) March 16, 2021 5:34pm 62.5 % 40.0-72.[address] [address] Neutrophils (%) (Auto) March 18, 2021 7:56pm 57.9 % 40.0-72.[address] [address]802 Neutrophils (%) (Auto) March 20, 2021 4:37pm 64.0 % 40.0-72.[address] [address]756 Neutrophils (%) (Auto) August 07, 2021 1:30pm 67.7 % 40.0-72.[address] [place] [address] Lymphocytes (%) (Auto) October 14, 2020 11:38pm 29.0 % 17-45 MA[facility] [address] [place] [address]258 Lymphocytes (%) (Auto) January 02, 2021 4:44pm 26.3 % 17-45 MA[facility] [address] [address] Lymphocytes (%) (Auto) January 07, 2021 5:35pm 37.7 % 17-45 [facility] [address] [address]881 Lymphocytes (%) (Auto) January 29, 2021 9:57pm 32.6 % 17-[address] [address] Lymphocytes (%) (Auto) March 16, 2021 5:34pm 26.7 % 17-[address] [address] Lymphocytes (%) (Auto) March 18, 2021 7:56pm 30.4 % 17-45 [facility] [address] [address] Lymphocytes (%) (Auto) March 20, 2021 4:37pm 26.1 % 17-45 [facility] [address] 56334 Lymphocytes (%) (Auto) August 07, 2021 1:30pm 24.2 % 17-[address] [address] Monocytes (%) (Auto) October 14, 2020 11:38pm 8.2 % 3-11 [facility] [address] [place] [address] 9[address]40 Monocytes (%) (Auto) January 02, 2021 4:44pm 6.2 % 3-11 [facility] [address] [address]882 Monocytes (%) (Auto) January 07, 2021 5:35pm 6.0 % 3-11 [facility] [address] [address]851 Monocytes (%) (Auto) January 29, 2021 9:57pm 6.5 % 3-11 [facility] [address] 5[address] Monocytes (%) (Auto) March 16, 2021 5:34pm 6.9 % 3-11 [facility] [address] [address]75 Monocytes (%) (Auto) March 18, 2021 7:56pm 7.2 % 3-11 [facility] [address] 29225 Monocytes (%) (Auto) March 20, 2021 4:37pm 5.9 % 3-11 [facility] [address] 79494 Monocytes (%) (Auto) August 07, 2021 1:30pm 5.9 % 3-11 [facility] [address] [address] Eosinophils (%) (Auto) October 14, 2020 11:38pm 1.1 % 0-3 [facility] [address] [place] [address] 38941 Eosinophils (%) (Auto) January 02, 2021 4:44pm 2.2 % 0-3 [facility] [address] [address] Eosinophils (%) (Auto) January 07, 2021 5:35pm 3.2 % 0-3 [facility] [address] 8[address]99 Eosinophils (%) (Auto) January 29, 2021 9:57pm 1.7 % 0-3 [facility] [address] [address] Eosinophils (%) (Auto) March 16, 2021 5:34pm 2.6 % 0-3 [facility] [address] 8[address]66 Eosinophils (%) (Auto) March 18, 2021 7:56pm 3.2 % 0-3 [facility] [address] [address]64 Eosinophils (%) (Auto) March 20, 2021 4:37pm 2.8 % 0-3 [facility] [address] 15068 Eosinophils (%) (Auto) August 07, 2021 1:30pm 1.2 % 0-3 [facility] [address] [address] Basophils (%) (Auto) October 14, 2020 11:38pm 1.3 % 0-1 [facility] [address] [place] [address] 56141 Basophils (%) (Auto) January 02, 2021 4:44pm 0.9 % 0-1 [facility] [address] [address]87 Basophils (%) (Auto) January 07, 2021 5:35pm 1.5 % 0-1 [facility] [address] 99025 Basophils (%) (Auto) January 29, 2021 9:57pm 1.2 % 0-1 [facility] [address] 77939 Basophils (%) (Auto) March 16, 2021 5:34pm 1.1 % 0-1 [facility] [address] 300[address] Basophils (%) (Auto) March 18, 2021 7:56pm 1.1 % 0-1 [facility] [address] 50390 Basophils (%) (Auto) March 20, 2021 4:37pm 1.0 % 0-1 [facility] [address] [address]508 Basophils (%) (Auto) August 07, 2021 1:30pm 0.8 % 0-[address] [address] Immature Granulocyte % (Auto) October 14, 2020 11:38pm 0.1 % 0-1 [facility] [address] [place] [address]23 Immature Granulocyte % (Auto) January 02, 2021 4:44pm 0.1 % 0-1 [facility] [address] 18373 Immature Granulocyte % (Auto) January 07, 2021 5:35pm 0.2 % 0-1 [facility] [address] 30791 Immature Granulocyte % (Auto) January 29, 2021 9:57pm 0.3 % 0-1 [facility] [address] 27825 Immature Granulocyte % (Auto) March 16, 2021 5:34pm 0.2 % 0-1 [facility] [address] 91435 Immature Granulocyte % (Auto) March 18, 2021 7:56pm 0.2 % 0-1 [facility] [address] 32994 Immature Granulocyte % (Auto) March 20, 2021 4:37pm 0.2 % 0-1 [facility] [address] 15427 Immature Granulocyte % (Auto) August 07, 2021 1:30pm 0.2 % 0-1 [facility] [address] [address]872 Neutrophils # (Auto) October 14, 2020 11:38pm 4.46 1000/mm3 1.4-6.5 [facility] [address] [place] [address] 56541 Neutrophils # (Auto) January 02, 2021 4:44pm 4.38 1000/mm3 1.4-6.5 [facility] [address] [address] Neutrophils # (Auto) January 07, 2021 5:35pm 2.74 1000/mm3 1.4-6.5 [facility] [address] [address] Neutrophils # (Auto) January 29, 2021 9:57pm 3.37 1000/mm3 1.4-6.5 [facility] [address] [address] Neutrophils # (Auto) March 16, 2021 5:34pm 3.82 1000/mm3 1.4-6.5 [facility] [address] [address]85 Neutrophils # (Auto) March 18, 2021 7:56pm 3.04 1000/mm3 1.4-6.5 [facility] [address] 10098 Neutrophils # (Auto) March 20, 2021 4:37pm 3.16 1000/mm3 1.4-6.5 [facility] [address] [address] Neutrophils # (Auto) August 07, 2021 1:30pm 3.35 1000/mm3 1.4-6.5 [facility] [address] [address] Lymphocytes # (Auto) October 14, 2020 11:38pm 2.15 1000/mm3 1.2-3.4 [facility] [address] [place] [address] 9[address]99 Lymphocytes # (Auto) January 02, 2021 4:44pm 1.79 1000/mm3 1.2-3.4 [facility] [address] 15952 Lymphocytes # (Auto) January 07, 2021 5:35pm 2.01 1000/mm3 1.2-3.4 [facility] [address] [address] Lymphocytes # (Auto) January 29, 2021 9:57pm 1.91 1000/mm3 1.2-3.4 [facility] [address] [address] Lymphocytes # (Auto) March 16, 2021 5:34pm 1.63 1000/mm3 1.2-3.4 [facility] [address] [address] Lymphocytes # (Auto) March 18, 2021 7:56pm 1.60 1000/mm3 1.2-3.4 [facility] [address] [address] Lymphocytes # (Auto) March 20, 2021 4:37pm 1.29 1000/mm3 1.2-3.4 [facility] [address] [address] Lymphocytes # (Auto) August 07, 2021 1:30pm 1.20 1000/mm3 1.2-3.4 [facility] [address] 8[address] Monocytes # (Auto) October 14, 2020 11:38pm 0.61 1000/mm3 0.0-0.8 [facility] [address] [place] [address] 63933 Monocytes # (Auto) January 02, 2021 4:44pm 0.42 1000/mm3 0.0-0.8 [facility] [address] [address]679 Monocytes # (Auto) January 07, 2021 5:35pm 0.32 1000/mm3 0.0-0.8 [facility] [address] [address] Monocytes # (Auto) January 29, 2021 9:57pm 0.38 1000/mm3 0.0-0.8 [facility] [address] [address]48 Monocytes # (Auto) March 16, 2021 5:34pm 0.42 1000/mm3 0.0-0.8 [facility] [address] [address] Monocytes # (Auto) March 18, 2021 7:56pm 0.38 1000/mm3 0.0-0.8 [facility] [address] [address]80 Monocytes # (Auto) March 20, 2021 4:37pm 0.29 1000/mm3 0.0-0.8 [facility] [address] [address] Monocytes # (Auto) August 07, 2021 1:30pm 0.29 1000/mm3 0.0-0.8 [facility] [address] [address] Eosinophils # (Auto) October 14, 2020 11:38pm 0.08 1000/mm3 0.0-0.7 [facility] [address] [place] [address] 9[address]78 Eosinophils # (Auto) January 02, 2021 4:44pm 0.15 1000/mm3 0.0-0.7 [facility] [address] [address]274 Eosinophils # (Auto) January 07, 2021 5:35pm 0.17 1000/mm3 0.0-0.7 [facility] [address] 6[address] Eosinophils # (Auto) January 29, 2021 9:57pm 0.10 1000/mm3 0.0-0.7 [facility] [address] [address]09 Eosinophils # (Auto) March 16, 2021 5:34pm 0.16 1000/mm3 0.0-0.7 [facility] [address] [address]754 Eosinophils # (Auto) March 18, 2021 7:56pm 0.17 1000/mm3 0.0-0.7 [facility] [address] [address] Eosinophils # (Auto) March 20, 2021 4:37pm 0.14 1000/mm3 0.0-0.7 [facility] [address] [address]84 Eosinophils # (Auto) August 07, 2021 1:30pm 0.06 1000/mm3 0.0-0.7 [facility] [address] [address] Basophils # (Auto) October 14, 2020 11:38pm 0.10 1000/mm3 0.0-0.1 [facility] [address] [place] [address] 74145 Basophils # (Auto) January 02, 2021 4:44pm 0.06 1000/mm3 0.0-0.[address] [address] Basophils # (Auto) January 07, 2021 5:35pm 0.08 1000/mm3 0.0-0.1 [facility] [address] [address]343 Basophils # (Auto) January 29, 2021 9:57pm 0.07 1000/mm3 0.0-0.[address] [address]696 Basophils # (Auto) March 16, 2021 5:34pm 0.07 1000/mm3 0.0-0.[address] 7[address] Basophils # (Auto) March 18, 2021 7:56pm 0.06 1000/mm3 0.0-0.1 [facility] [address] 7[address] Basophils # (Auto) March 20, 2021 4:37pm 0.05 1000/mm3 0.0-0.1 [facility] [address] [address] Basophils # (Auto) August 07, 2021 1:30pm 0.04 1000/mm3 0.0-0.[address] [address] Absolute Immature Granulocyte (auto October 14, 2020 11:38pm 0.0 0-1 [facility] [address] [place] [address] 46733 Absolute Immature Granulocyte (auto January 02, 2021 4:44pm 0.0 0-1 [facility] [address] 67698 Absolute Immature Granulocyte (auto January 07, 2021 5:35pm 0.0 0-1 [facility] [address] 83854 Absolute Immature Granulocyte (auto January 29, 2021 9:57pm 0.0 0-1 [facility] [address] [address]2207 Absolute Immature Granulocyte (auto March 16, 2021 5:34pm 0.0 0-1 [facility] [address] 35005 Absolute Immature Granulocyte (auto March 18, 2021 7:56pm 0.0 0-1 [facility] [address] [address]251 Absolute Immature Granulocyte (auto March 20, 2021 4:37pm 0.0 0-1 [facility] [address] 57009 Absolute Immature Granulocyte (auto August 07, 2021 1:30pm 0.0 0-1 [facility] [address] [address]802 Differential Method October 14, 2020 11:38pm Automated [facility] [address] [place] [address] 92703 Differential Method January 02, 2021 4:44pm Automated [facility] [address] [address]37 Differential Method January 07, 2021 5:35pm Automated [facility] [address] 28509 Differential Method January 29, 2021 9:57pm Automated [facility] [address] 46071 Differential Method March 16, 2021 5:34pm Automated [facility] [address] 82649 Differential Method March 18, 2021 7:56pm Automated [facility] [address] 81465 Differential Method March 20, 2021 4:37pm Automated [facility] [address] [address]2359 Differential Method August 07, 2021 1:30pm Automated [facility] [address] [address]479 Differential Pathologist's Review October 14, 2020 11:38pm See comment No comparison data on file at [facility]. Microcytic hypochromic anemia, consistent with iron deficiency.S mear reviewed by pathologist for corporate quality manager.Hair Mello MD10/15/20 MA[facility] [address] [place] [address] 16912 Prothrombin Time October 14, 2020 11:38pm 10.8 SECONDS 9.6-11.[address] [facility] [address] [place] [address] 45171 Prothromb Time International Ratio October 14, 2020 11:38pm 1.1 2.0-3.0 INR value valid only on patients on stabilized warfarin therapy. The recommended therapeutic range for warfarin (Coumadin) for most clinical indications is an INR of 2.0-3.0. An INR of 2.5-3.5 is recommended for patients with mechanical heart valves. MAIN LAB [address] [place] [address] Activated Partial Thromboplast Time October 14, 2020 11:38pm 26.1 SECONDS 21.6-36.0 A target of 1.5-2.5 times the mean of the normal reference range is considered therapeutic. NOTE: APTT must NOT be used to monitor LMWH therapy. Contact [facility] for monitoring information. MAIN LAB [address] [place] [address] 21942 Urine Color January 02, 2021 6:04pm Lauren MA[facility] [address] [address] Urine Clarity January 02, 2021 6:04pm very cloudy [facility] [address] [address]381 Urine pH January 02, 2021 6:04pm 6.0 [facility] [address] [address]648 Urine Specific [place] January 02, 2021 6:04pm 1.015 MAIN LAB [address] [address] Urine Protein January 02, 2021 6:04pm 100 (2+) mg/dL NEGATIVE [facility] [address] [place] [address] Urine Glucose (UA) January 02, 2021 6:04pm Normal mg/dL NORMAL MA[facility] [address] [address] Urine Ketones January 02, 2021 6:04pm Negative NEGATIVE [facility] [address] [address] Urine Nitrite January 02, 2021 6:04pm Negative Negative [facility] [address] 15152 Urine Bilirubin January 02, 2021 6:04pm Negative mg/dL NEGATIVE [facility] [address] [address] [address] Urine Urobilinogen January 02, 2021 6:04pm Normal mg/dL NORMAL MAIN LAB [address] [address] Urine Leukocyte Esterase January 02, 2021 6:04pm Moderate (2+) WBC/uL NEGATIVE MAIN LAB [address] [address] Urine Blood January 02, 2021 6:04pm Large (3+) JOEL/uL NEGATIVE MAIN LAB [address] [address] Urine RBC October 14, 2020 11:45pm 10-20 /hpf MAIN LAB [address] [place] [address] Urine RBC January 02, 2021 6:04pm Tntc /hpf MAIN LAB [address] [address] Urine RBC March 16, 2021 6:40pm Tntc /hpf MAIN LAB [address] [address] Urine RBC June 27, 2021 4:10pm 0-2 /hpf MAIN LAB [address] [address] Urine WBC October 14, 2020 11:45pm 0-2 /hpf MAIN LAB [address] [place] [address] Urine WBC January 02, 2021 6:04pm 3-5 /hpf MAIN LAB [address] [address] Urine WBC March 16, 2021 6:40pm See comment /hpf Microscopic field obscured by RBC. [facility] [address] [address] Urine WBC June 27, 2021 4:10pm None seen /hpf MAIN LAB [address] [address] Urine Squamous Epithelial Cells January 02, 2021 6:04pm 1+ /hpf MAIN LAB [address] [address] Urine Squamous Epithelial Cells June 27, 2021 4:10pm 2+ /hpf MAIN LAB [address] [address] Urine Bacteria October 14, 2020 11:45pm 1+ /hpf NONE SEEN MAIN LAB [address] [place] [address] 24089 Urine Bacteria January 02, 2021 6:04pm None seen /hpf NONE SEEN MAIN LAB [address] [address] Urine Bacteria March 16, 2021 6:40pm See comment /hpf NONE SEEN Microscopic field obscured by RBC. MAIN LAB [address] [address] Urine Bacteria June 27, 2021 4:10pm 1+ /hpf NONE SEEN MAIN LAB [address] [address] Urine Mucus October 14, 2020 11:45pm Present MAIN LAB [address] [place] [address] Urine Mucus June 27, 2021 4:10pm Present MAIN LAB [address] [address] Urine Culture Done October 14, 2020 11:45pm No CULTURE NOT INDICATED. MAIN LAB [address] [place] [address] Urine Culture Done January 02, 2021 6:04pm Yes URINE SPECIMEN CULTURED MAIN LAB [address] [address] Urine Culture Done March 16, 2021 6:40pm Yes URINE SPECIMEN CULTURED MAIN LAB [address] [address] Urine Culture Done June 27, 2021 4:10pm No CULTURE NOT INDICATED. MAIN LAB [address] [address] Urine Test January 02, 2021 6:04pm Negative NEGATIVE MAIN LAB [address] [address] Sodium Level October 14, 2020 11:38pm 138 mmol/L 137-145 MAIN LAB [address] [facility] [address] Sodium Level January 02, 2021 4:44pm 141 mmol/L 137-145 MAIN LAB [facility] [address] [facility] [address] Sodium Level January 07, 2021 5:35pm 140 mmol/L 137-145 MAIN LAB [facility] [address] [facility] 214[address] Sodium Level January 29, 2021 9:57pm 137 mmol/L 137-145 MAIN LAB [facility] [address] [facility] [address] Sodium Level March 16, 2021 5:34pm 137 mmol/L 137-145 MAIN LAB [facility] [address] [facility] [address] Sodium Level March 18, 2021 7:56pm 141 mmol/L 137-145 MAIN LAB [address] [address] Sodium Level March 20, 2021 5:04pm 140 mmol/L 137-145 MAIN LAB [address] [address] Sodium Level August 07, 2021 1:30pm 141 mmol/L 137-145 MAIN LAB [address] [address] Potassium Level October 14, 2020 11:38pm 3.8 mmol/L 3.6-5.0 MAIN LAB [address] [place] [address] Potassium Level January 02, 2021 4:44pm 3.9 mmol/L 3.6-5.0 MAIN LAB [facility] [address] [facility] [address] Potassium Level January 07, 2021 5:35pm 3.7 mmol/L 3.6-5.0 MAIN LAB [address] [address] Potassium Level January 29, 2021 9:57pm 3.5 mmol/L 3.6-5.0 MAIN LAB [facility] [address] [facility] [address] Potassium Level March 16, 2021 5:34pm 4.0 mmol/L 3.6-5.0 MAIN LAB [facility] [address] [facility] 240[address] Potassium Level March 18, 2021 7:56pm 3.4 mmol/L 3.6-5.0 MAIN LAB [facility] [address] [facility] [address] Potassium Level March 20, 2021 5:04pm 3.8 mmol/L 3.6-5.0 MAIN LAB [facility] [address] [facility] 17[address] Potassium Level August 07, 2021 1:30pm 4.3 mmol/L 3.6-5.0 MAIN LAB [facility] [address] [facility] [address] Chloride Level October 14, 2020 11:38pm 100 mmol/L 98-107 MAIN LAB [address] [place] [address] Chloride Level January 02, 2021 4:44pm 104 mmol/L 98-107 MAIN LAB [address] [address] Chloride Level January 07, 2021 5:35pm 103 mmol/L 98-107 MAIN LAB [address] [address] Chloride Level January 29, 2021 9:57pm 99 mmol/L 98-107 MAIN LAB [address] [address] Chloride Level March 16, 2021 5:34pm 102 mmol/L 98-107 MAIN LAB [address] [address] Chloride Level March 18, 2021 7:56pm 102 mmol/L 98-107 MAIN LAB [address] [address] Chloride Level March 20, 2021 5:04pm 103 mmol/L 98-107 MAIN LAB [address] [address] Chloride Level August 07, 2021 1:30pm 105 mmol/L 98-107 MAIN LAB [address] [address] Carbon Dioxide Level October 14, 2020 11:38pm 25 mmol/L 22-30 MAIN LAB [address] [place] [address] Carbon Dioxide Level January 02, 2021 4:44pm 26 mmol/L 22-30 MAIN LAB [facility] [address] [facility] [address] Carbon Dioxide Level January 07, 2021 5:35pm 27 mmol/L 22-30 MAIN LAB [facility] [address] [facility] 104[address] Carbon Dioxide Level January 29, 2021 9:57pm 27 mmol/L 22-30 MAIN LAB [facility] [address] [facility] 288[address] Carbon Dioxide Level March 16, 2021 5:34pm 28 mmol/L 22-30 MAIN LAB [address] [address] Carbon Dioxide Level March 18, 2021 7:56pm 29 mmol/L 22-30 MAIN LAB [address] [address] Carbon Dioxide Level March 20, 2021 5:04pm 27 mmol/L 22-30 MAIN LAB [address] [address] Carbon Dioxide Level August 07, 2021 1:30pm 24 mmol/L 22-30 MAIN LAB [address] [address] Anion Gap October 14, 2020 11:38pm 13 7-16 MAIN LAB [address] [place] [address] Anion Gap January 02, 2021 4:44pm 11 7-16 MAIN LAB [address] [address] Anion Gap January 07, 2021 5:35pm 10 7-16 MAIN LAB [address] [address] Anion Gap January 29, 2021 9:57pm 11 7-16 MAIN LAB [address] [address] Anion Gap March 16, 2021 5:34pm 7 7-16 MAIN LAB [address] [address] Anion Gap March 18, 2021 7:56pm 10 7-16 MAIN LAB [address] [address] Anion Gap March 20, 2021 5:04pm 10 7-16 MAIN LAB [address] [address] Anion Gap August 07, 2021 1:30pm 12 7-16 MAIN LAB [address] [address] Blood Urea Nitrogen October 14, 2020 11:38pm 15 mg/dL 7-17 MAIN LAB [facility] [address] Blood Urea Nitrogen January 02, 2021 4:44pm 11 mg/dL 7-17 MAIN LAB [facility] [address] [facility] [address] Blood Urea Nitrogen January 07, 2021 5:35pm 13 mg/dL 7- MAIN LAB [address] [address] Blood Urea Nitrogen January 29, 2021 9:57pm 13 mg/dL 7- MAIN LAB [address] [address] Blood Urea Nitrogen March 16, 2021 5:34pm 10 mg/dL 7- MAIN LAB [address] [address] Blood Urea Nitrogen March 18, 2021 7:56pm 10 mg/dL 7- MAIN LAB [address] [address] Blood Urea Nitrogen March 20, 2021 5:04pm 5 mg/dL 7- MAIN LAB [address] [address] Blood Urea Nitrogen August 07, 2021 1:30pm 14 mg/dL 7- MAIN LAB [address] [address] Creatinine October 14, 2020 11:38pm 0.76 mg/dL 0.52-1.04 MAIN LAB [address] [place] [address] Creatinine January 02, 2021 4:44pm 0.76 mg/dL 0.52-1.04 MAIN LAB [address] [address] Creatinine January 07, 2021 5:35pm 0.79 mg/dL 0.52-1.04 MAIN LAB [address] [address] Creatinine January 29, 2021 9:57pm 0.84 mg/dL 0.52-1.04 MAIN LAB [address] [address] Creatinine March 16, 2021 5:34pm 0.62 mg/dL 0.52-1.04 MAIN LAB [address] [address] Creatinine March 18, 2021 7:56pm 0.66 mg/dL 0.52-1.04 MAIN LAB [address] [address] Creatinine March 20, 2021 5:04pm 0.59 mg/dL 0.52-1.04 MAIN LAB [address] [address] Creatinine August 07, 2021 1:30pm 0.65 mg/dL 0.52-1.04 MAIN LAB [address] [address] Glomerular Filtration Rate Calc October 14, 2020 11:38pm > 60 mL/min >60.0 MAIN LAB [address] [place] [address] Glomerular Filtration Rate Calc January 02, 2021 4:44pm > 60 mL/min >60.0 MAIN LAB [address] [address] Glomerular Filtration Rate Calc January 07, 2021 5:35pm > 60 mL/min >60.0 MAIN LAB [address] [address] Glomerular Filtration Rate Calc January 29, 2021 9:57pm > 60 mL/min >60.0 MAIN LAB [address] [address] Glomerular Filtration Rate Calc March 16, 2021 5:34pm > 60 mL/min >60.0 MAIN LAB [address] [address] Glomerular Filtration Rate Calc March 18, 2021 7:56pm > 60 mL/min >60.0 MAIN LAB [address] [address] Glomerular Filtration Rate Calc March 20, 2021 5:04pm > 60 mL/min >60.0 MAIN LAB [address] [address] Glomerular Filtration Rate Calc August 07, 2021 1:30pm > 60 mL/min >60.0 MAIN LAB [address] [address] Glucose Level October 14, 2020 11:38pm 88 mg/dL 70-100 MAIN LAB [address] [place] [address] Glucose Level January 02, 2021 4:44pm 88 mg/dL 70-100 MAIN LAB [facility] [address] [facility] [address] Glucose Level January 07, 2021 5:35pm 105 mg/dL 70-100 MAIN LAB [facility] [address] [facility] 12875 Glucose Level January 29, 2021 9:57pm 92 mg/dL 70-100 MAIN LAB [facility] [address] [facility] [address] Glucose Level March 16, 2021 5:34pm 90 mg/dL 70-100 MAIN LAB [facility] [address] [facility] [address] Glucose Level March 18, 2021 7:56pm 84 mg/dL 70-100 MAIN LAB [address] [address] Glucose Level March 20, 2021 5:04pm 91 mg/dL 70-100 MAIN LAB [address] [address] Glucose Level August 07, 2021 1:30pm 100 mg/dL 70-100 MAIN LAB [address] [address] Calcium Level October 14, 2020 11:38pm 9.3 mg/dL 8.4-10.2 MAIN LAB [address] [place] [address] Calcium Level January 02, 2021 4:44pm 9.3 mg/dL 8.4-10.2 MAIN LAB [address] [address] Calcium Level January 07, 2021 5:35pm 9.6 mg/dL 8.4-10.2 MAIN LAB [address] [address] Calcium Level January 29, 2021 9:57pm 9.8 mg/dL 8.4-10.2 MAIN LAB [address] [address] Calcium Level March 16, 2021 5:34pm 9.5 mg/dL 8.4-10.2 MAIN LAB [address] [address] Calcium Level March 18, 2021 7:56pm 9.3 mg/dL 8.4-10.2 MAIN LAB [address] [address] Calcium Level March 20, 2021 5:04pm 9.4 mg/dL 8.4-10.2 MAIN LAB [address] [address] Calcium Level August 07, 2021 1:30pm 9.8 mg/dL 8.4-10.2 MAIN LAB [address] [address] Calcium Adjusted for Albumin October 14, 2020 11:38pm 9.2 mg/dL 8.4-10.2 MAIN LAB [address] [place] [address] Calcium Adjusted for Albumin January 02, 2021 4:44pm 8.8 mg/dL 8.4-10.2 MAIN LAB [address] [address] Calcium Adjusted for Albumin January 07, 2021 5:35pm 9.3 mg/dL 8.4-10.2 MAIN LAB [address] [address] Calcium Adjusted for Albumin March 16, 2021 5:34pm 9.4 mg/dL 8.4-10.2 MAIN LAB [address] [address] Calcium Adjusted for Albumin March 18, 2021 7:56pm 9.1 mg/dL 8.4-10.2 MAIN LAB [address] [address] Calcium Adjusted for Albumin August 07, 2021 1:30pm 9.2 mg/dL 8.4-10.2 MAIN LAB [address] [address] Iron Level October 14, 2020 11:38pm 36 ug/dL 37-170 MAIN LAB [address] [place] [address] Total Bilirubin October 14, 2020 11:38pm 0.3 mg/dL 0.2-1.3 MAIN LAB [address] [place] [address] Total Bilirubin January 02, 2021 4:44pm 0.4 mg/dL 0.2-1.3 MAIN LAB [address] [address] Total Bilirubin January 07, 2021 5:35pm 0.4 mg/dL 0.2-1.3 MAIN LAB [address] [address] Total Bilirubin March 16, 2021 5:34pm 0.4 mg/dL 0.2-1.3 MAIN LAB [address] [address] Total Bilirubin March 18, 2021 7:56pm 0.4 mg/dL 0.2-1.3 MAIN LAB [address] [address] Total Bilirubin August 07, 2021 1:30pm 0.6 mg/dL 0.2-1.3 MAIN LAB [address] [address] Aspartate Amino Transf (AST/SGOT) October 14, 2020 11:38pm 55 U/L 14-36 MAIN LAB [address] [place] [address] Aspartate Amino Transf (AST/SGOT) January 02, 2021 4:44pm 39 U/L 14-36 MAIN LAB [address] [address] Aspartate Amino Transf (AST/SGOT) January 07, 2021 5:35pm 38 U/L 14-36 MAIN LAB [address] [address] Aspartate Amino Transf (AST/SGOT) March 16, 2021 5:34pm 36 U/L 14-36 MAIN LAB [address] [address]689 Aspartate Amino Transf (AST/SGOT) March 18, 2021 7:56pm 37 U/L 14-36 MAIN LAB [address] [address] Aspartate Amino Transf (AST/SGOT) August 07, 2021 1:30pm 48 U/L 14-36 MAIN LAB [address] [address] Alanine Aminotransferase (ALT/SGPT) October 14, 2020 11:38pm 41 U/L <35 As of 09/13/19, the Reference Range for ALT/SGPT for adult patients has been updated. The Reference Range for ALT/SGPT has not been established for patients <18 years of age. MAIN LAB [address] [place] [address] Alanine Aminotransferase (ALT/SGPT) January 02, 2021 4:44pm 21 U/L <35 As of 09/13/19, the Reference Range for ALT/SGPT for adult patients has been updated. The Reference Range for ALT/SGPT has not been established for patients <18 years of age. MAIN LAB [address] [address] Alanine Aminotransferase (ALT/SGPT) January 07, 2021 5:35pm 23 U/L <35 As of 09/13/19, the Reference Range for ALT/SGPT for adult patients has been updated. The Reference Range for ALT/SGPT has not been established for patients <18 years of age. MAIN LAB [address] [address] Alanine Aminotransferase (ALT/SGPT) March 16, 2021 5:34pm 17 U/L <35 As of 09/13/19, the Reference Range for ALT/SGPT for adult patients has been updated. The Reference Range for ALT/SGPT has not been established for patients <18 years of age. MAIN LAB [address] [address] Alanine Aminotransferase (ALT/SGPT) March 18, 2021 7:56pm 19 U/L <35 As of 09/13/19, the Reference Range for ALT/SGPT for adult patients has been updated. The Reference Range for ALT/SGPT has not been established for patients <18 years of age. MAIN LAB [address] [address] Alanine Aminotransferase (ALT/SGPT) August 07, 2021 1:30pm 36 U/L <35 As of 09/13/19, the Reference Range for ALT/SGPT for adult patients has been updated. The Reference Range for ALT/SGPT has not been established for patients <18 years of age. MAIN LAB [address] [address] Lactic Acid Level March 18, 2021 7:56pm 1.0 mmol/L 0.7-2.1 MAIN LAB [address] [address] Total Protein October 14, 2020 11:38pm 7.4 g/dL 6.3-8.2 MAIN LAB [address] [place] [address] Total Protein January 02, 2021 4:44pm 7.9 g/dL 6.3-8.2 MAIN LAB [address] [address] Total Protein January 07, 2021 5:35pm 7.7 g/dL 6.3-8.2 MAIN LAB [address] [address]67 Total Protein March 16, 2021 5:34pm 7.2 g/dL 6.3-8.2 MAIN LAB [address] [address] Total Protein March 18, 2021 7:56pm 7.6 g/dL 6.3-8.2 MAIN LAB [address] [address] Total Protein August 07, 2021 1:30pm 8.3 g/dL 6.3-8.2 MAIN LAB [address] [address] Albumin October 14, 2020 11:38pm 4.4 g/dL 3.5-5.0 MAIN LAB [address] [place] [address] Albumin January 02, 2021 4:44pm 4.9 g/dL 3.5-5.0 MAIN LAB [address] [address] Albumin January 07, 2021 5:35pm 4.7 g/dL 3.5-5.0 MAIN LAB [address] [address] Albumin March 16, 2021 5:34pm 4.4 g/dL 3.5-5.0 MAIN LAB [address] [address] Albumin March 18, 2021 7:56pm 4.6 g/dL 3.5-5.0 MAIN LAB [address] [address] Albumin August 07, 2021 1:30pm 5.0 g/dL 3.5-5.0 MAIN LAB [address] [address] Alkaline Phosphatase October 14, 2020 11:38pm 55 U/L 38-126 MAIN LAB [address] [place] [address] 29874 Alkaline Phosphatase January 02, 2021 4:44pm 58 U/L 38-126 MAIN LAB [address] [address]481 Alkaline Phosphatase January 07, 2021 5:35pm 58 U/L 38-126 MAIN LAB [address] [address] Alkaline Phosphatase March 16, 2021 5:34pm 45 U/L 38-126 MAIN LAB [address] [address] Alkaline Phosphatase March 18, 2021 7:56pm 47 U/L 38-126 MAIN LAB [address] [address] Alkaline Phosphatase August 07, 2021 1:30pm 58 U/L 38-126 MAIN LAB [address] [address]571 Lipase October 14, 2020 11:38pm 43 U/L 23-300 MAIN LAB [address] [place] [address] 13287 Lipase August 07, 2021 1:30pm 64 U/L 23-300 MAIN LAB [address] [address] Ferritin October 14, 2020 11:38pm 4.43 ng/mL 10-291 The results of this assay can be falsely decreased in patients who consume Biotin. MAIN LAB [address] [place] [address] Microbiology Results Procedure Source Result Collection Date/Time Result Date/Time Result Comment Performing Site Blood Culture Blood, Left Antecubital NO GROWTH AFTER 5 DAYS March 18, 2021 9:10pm March 24, 2021 7:15am MAIN LAB [address] [address] Urine Culture Ur,Clean Catch January 02, 2021 6:40pm January 04, 2021 8:36am MAIN LAB [address] [address] Urine Culture Ur,Clean Catch March 16, 2021 7:39pm March 18, 2021 10:45am MAIN LAB [address] [address] Gram Stain Umbilicus March 16, 2021 10:27am March 17, 2021 8:17am MAIN LAB [address] [address] Routine Culture Umbilicus Staphylococcus Aureus-Mrsa March 16, 2021 10:27am March 20, 2021 8:34am MAIN LAB [address] [address] Diagnostic Imaging Reports Report Dictated Date/Time Dictated [...] had a laporoscopy compelted on 03/05/21, at [facility] in [place]. States she is having sharp cramping stabbing [...] 07, 2021 4:03pm Yuli Jiang DO completed [facility] [...] 14, 2020 10:53pm Respiratory rate 16 /min 12-October 14 021 10:53pm Oxygen saturation by Pulse [...] Heart Rate 78 /min 60-100 March 16, 021 9:44pm Respiratory rate 18 /min -March 9:44pm Oxygen saturation by Pulse oximetry 98 % 95-100 November 2nd, 2021 9 :44pm BP Systolic 116 mm[Hg] [...] Diastolic 65 mm[Hg] 50-85 August 07 5:10pm Advance Directives Advance Directive Response Recorded Date/ Time Does patient have an Advanced Directive? No October 14, 2020 11:22pm Do we have a copy on file here at [facility]? No October 14, 2020 11:22pm Pt has a Living Will? No October 14, 2020 11:22pm Do we have a copy on file here at [facility]? No October 14, 2020 11:22pm Pt has a Power of Campus Chaplain? No October 14, 2020 11:22pm Do we have a copy on file here at [facility]? No October 14, 2020 11:22pm Insurance Providers Guarantor EDUARDO PAYAN Address [address] [address] Contact Info. Home Phone: Payer Policy Id Coverage Id Subscriber's Name Subscriber Id Effective Date Expiration Date [facility] [id number] EDUARDO PAYAN [id number] 000 SELF PAY Self N/A Encounters Encounter Location(s) Arrival/Admit Date Discharge/Depart Date Provider(s) Departed Emergency [facility] October 14, 2020 10:48pm October 15, 2020 12:54am null Departed Emergency [facility] December 29, 2020 4:23pm December 29, 2020 7:13pm null Departed Emergency [facility] January 02, 2021 4:12pm January 02, 2021 7:22pm null Departed Emergency [facility]gency [facility] January 07, 2021 4:48pm January 07, 2021 6:55pm null Departed Emergency [facility] January 21, 2021 2:24pm January 21, 2021 4:51pm null Departed Emergency [facility] January 29, 2021 8:55pm January 29, 2021 11:08pm null Departed Emergency [facility] March 16, 2021 3:28pm March 16, 2021 10:43pm null Departed Emergency [facility] March 18, 2021 6:11pm March 18, 2021 9:19pm null Departed Emergency [facility] March 20, 2021 2:33pm March 20, 2021 6:25pm null Departed Emergency [facility] March 27, 2021 12:49pm March 27, 2021 3:32pm null Departed Emergency [facility]Emergency [facility] June 27, 2021 3:30pm June 27, 2021 5:01pm null Departed Emergency [facility] August 07, 2021 11:58am August 07, 2021 5:15pm null Functional Status Observation Response Date Recorded Living Situation Home August 07 5:14pm With Significant Other July 5:14pm Mental Status Observation Response Date Recorded Comprehension Ability Understands Concepts Septe mber 2020 9:35pm Mood/Behavior Anxious January 29, 2021 9:35pm Comprehension Ability Understands Concepts Augus t 2020 5:40pm Mood/Behavior Anxious January 07 5:40pm Comprehension Ability Understands Concepts Augus t 2020 4:30pm Mood/Behavior Appropriate January 02 4:30pm Comprehension Ability Understands Concepts Novem rinku 2020 8:30pm Speech Appropriate March 18 8:30pm [...] Provider Provider Contact Information Provider Address [place] Emely holloway MD Work Phone: [facility] SALES DEVELOPER [address] [place] [phone] Chavez and will see for US [facility] Obstectrics and Gynecology Work Phone: [address] [place] [phone] No Pcp Mahad Chavez MD Work Phone: [facility] SALES DEVELOPER [address] [place] [phone] No Pcp No Pcp No Pcp [facility]st[facility] Gynecology Work Phone: [address] [place] [phone] No Pcp No Pcp No Pcp Future [...] and Vomiting After Surgery Constipation, Adult (DC) Hospital Discharge Instructions Additional Instructions Follow-up with your PCP and GENERATOR WORKER for ongoing pain management or immediately here in the ED for high fever or other acutely worsening/new symptoms. Drink plenty of clear fluids. Increased exercise and fiber in your diet.
--- OUTSIDE RECORDS SUMMARY | 2022-11-20 17:45 | XMS_ITS | Continuity of Care Document ---
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 Role Phone PCP, of Choice Primary Care Provider Unavailabl e Chief Complaint and Reason for Visit Chief Complaint LEFT FLANK PAIN ORAL INFECTION RECTAL BLEEDING Allergies, Adverse Reactions, Alerts Allergen Type Severity Reaction Last Updated Verified Status haloperidol Allergy January 02, 2021 5:18pm Yes Active ketorolac Allergy anaphylaxis December 29, 2020 4:35pm Yes Active latex Allergy rash December 29, 2 021 4:35pm Yes Active Penicillins Allergy hives December 29, 2020 4:35pm Yes Active prochlorperazine Allergy hives December 132020 4:35pm Yes Active Social History Smoking Status Status Start Date End Date Date of Observa tion Never smoked tobacco (finding) January 02, 2021 6:18pm Observation Status Observation Response Date of Response Alcohol Use Yes January 02 6:18pm alcohol intake frequency a few times a month Dec 6:18pm Alcohol type hard liquor January 02 6:18pm Substance/Street Drug Use Yes January 02, 2021 6:18pm substance use type marijuana January 02, 2021 6:18pm Smoking Status Never smoker January 02 6:18pm Additional Data Assigned Sex Female Problems Active Problems Medical Problem Onset Date Status Abdominal pain Active Inactive/Resolved Problems Medical Problem Onset Date Status Gastritis Resolved Pain, dental Resolved Iron deficiency anemia Resolved Medications Medication Status Dose Units Route Directions Qty Days St art Date End Date Instructions Sertraline Active 100 MG PO DAILY October 14, 2020 11:02pm Docusate Sodium Active 50 MG PO TWICE A DAY October 14, 2020 11:02pm Trazodone Active 100 MG PO BEDTIME October 14, 2020 11:02pm Hydroxyzine Hcl Active 100 MG PO BEDTIME October 14, 2020 11:02pm Ferrous Sulfate Active 325 MG PO DAILY October 15, 2020 2:57pm Hydrocodone-A cetaminophen Active TABLET December 29, 2020 4:35pm Gabapentin Active 200 MG PO DAILY January 02, 2021 5:12pm Hydrocodone-A cetaminophen Active 1 TAB PO Q6H 9 January 02, 2021 6:26pm Ondansetron Active 4 MG PO Q6H 10 2020 6:26pm Procedures Procedure Date Performed Status CT Abd Pel w/ Contrast January 02, 2021 4:51pm completed Urine Culture January 02, 2021 active Relevant Diagnostic Tests and/or Laboratory Data Laboratory Results Test Date/Time Result Interpretation Reference Range Result Comment Performing Site White Blood Count October 14, 2020 11:38pm 7.41 1000/mm3 4.8-10.8 MAIN LAB [address] [place] [address] White Blood Count January 02, 2021 4:44pm 6.81 1000/mm3 4.8-10.8 MAIN LAB [address] [address] Red Blood Count October 14, 2020 11:38pm 4.44 M/mm3 4.20-5.40 MAIN LAB [address] [place] [address] Red Blood Count January 02, 2021 4:44pm 4.67 M/mm3 4.20-5.40 MAIN LAB [address] [address] Hemoglobin October 14, 2020 11:38pm 9.2 g/dL 12.0-16.0 MAIN LAB [address] [place] [address]78 Hemoglobin January 02, 2021 4:44pm 10.4 g/dL 12.0-16.0 MAIN LAB [facility] [address] [facility] [address] Hematocrit October 14, 2020 11:38pm 30.6 % 37-47 MAIN LAB [address] [facility] [address] Hematocrit January 02, 2021 4:44pm 35.2 % 37-47 MAIN LAB [facility] [address] [facility] [address] Mean Corpuscular Volume October 14, 2020 11:38pm 68.9 fL 81.0-99.0 MAIN LAB [address] [place] [address] 32436 Mean Corpuscular Volume January 02, 2021 4:44pm 75.4 fL 81.0-99.0 MAIN LAB [address] [address] Mean Corpuscular Hemoglobin October 14, 2020 11:38pm 20.7 pg 27-31 MAIN LAB [address] [place] [address] 79985 Mean Corpuscular Hemoglobin January 02, 2021 4:44pm 22.3 pg 27-31 MAIN LAB [address] [address] Mean Corpuscular Hemoglobin Concent October 14, 2020 11:38pm 30.1 g/dL 33-37 MAIN LAB [address] [place] [address] 24712 Mean Corpuscular Hemoglobin Concent January 02, 2021 4:44pm 29.5 g/dL 33-37 MAIN LAB [facility] [address] [facility] [address] Red Cell Distribution Width October 14, 2020 11:38pm 16.8 % 11.5-14.5 MAIN LAB [address] [place] [address] 61569 Red Cell Distribution Width January 02, 2021 4:44pm 19.4 % 11.5-14.5 MAIN LAB [facility] [address] [facility] [address] Platelet Count October 14, 2020 11:38pm 250 1000/mm3 140-440 MAIN LAB [address] [place] [address]674 Platelet Count January 02, 2021 4:44pm 216 1000/mm3 140-440 MAIN LAB [facility] [address] [facility] [address] Mean Platelet Volume October 14, 2020 11:38pm 10.6 fL 7.4-10.4 MAIN LAB [address] [place] [address] 28995 Mean Platelet Volume January 02, 2021 4:44pm 10.7 fL 7.4-10.[address] [address] Neutrophils (%) (Auto) October 14, 2020 11:38pm 60.3 % 40.0-72.0 MAIN LAB [address] [place] [address] 8[address]32 Neutrophils (%) (Auto) January 02, 2021 4:44pm 64.3 % 40.0-72.0 MAIN LAB [address] [address] Lymphocytes (%) (Auto) October 14, 2020 11:38pm 29.0 % 17-45 MAIN LAB [address] [place] [address] 29887 Lymphocytes (%) (Auto) January 02, 2021 4:44pm 26.3 % 17-45 MAIN LAB [address] [address] Monocytes (%) (Auto) October 14, 2020 11:38pm 8.2 % 3-11 MAIN LAB [address] [place] [address]30 Monocytes (%) (Auto) January 02, 2021 4:44pm 6.2 % 3-11 MAIN LAB [address] [address] Eosinophils (%) (Auto) October 14, 2020 11:38pm 1.1 % 0-3 MAIN [facility] [address] [place] [address] 59689 Eosinophils (%) (Auto) January 02, 2021 4:44pm 2.2 % 0-3 MAIN LAB [address] [address] Basophils (%) (Auto) October 14, 2020 11:38pm 1.3 % 0-1 MAIN LAB [address] [place] [address]44 Basophils (%) (Auto) January 02, 2021 4:44pm 0.9 % 0-1 MAIN LAB [address] [address] Immature Granulocyte % (Auto) October 14, 2020 11:38pm 0.1 % 0-1 MAIN [facility] [address] [place] [address] 55048 Immature Granulocyte % (Auto) January 02, 2021 4:44pm 0.1 % 0-1 MAIN LAB [place] 095368 Neutrophils # (Auto) October 14, 2020 11:38pm 4.46 1000/mm3 1.4-6.5 MAIN LAB [address] [place] [address] 28558 Neutrophils # (Auto) January 02, 2021 4:44pm 4.38 1000/mm3 1.4-6.5 MAIN LAB [address] [address] Lymphocytes # (Auto) October 14, 2020 11:38pm 2.15 1000/mm3 1.2-3.4 MAIN LAB [address] [place] [address] 08709 Lymphocytes # (Auto) January 02, 2021 4:44pm 1.79 1000/mm3 1.2-3.4 MAIN LAB [address] [address] Monocytes # (Auto) October 14, 2020 11:38pm 0.61 1000/mm3 0.0-0.8 MAIN LAB [address] [place] [address] 44296 Monocytes # (Auto) January 02, 2021 4:44pm 0.42 1000/mm3 0.0-0.8 MAIN LAB [address] [address] Eosinophils # (Auto) October 14, 2020 11:38pm 0.08 1000/mm3 0.0-0.7 MAIN LAB [address] [place] [address]58 Eosinophils # (Auto) January 02, 2021 4:44pm 0.15 1000/mm3 0.0-0.7 MAIN LAB [address] [address] Basophils # (Auto) October 14, 2020 11:38pm 0.10 1000/mm3 0.0-0.1 MAIN LAB [address] [place] [address]12 Basophils # (Auto) January 02, 2021 4:44pm 0.06 1000/mm3 0.0-0.1 MAIN LAB [address] [address] Absolute Immature Granulocyte (auto October 14, 2020 11:38pm 0.0 0-1 MAIN LAB [address] [place] [address] Absolute Immature Granulocyte (auto January 02, 2021 4:44pm 0.0 0-1 MAIN LAB [address] [address] Differential Method October 14, 2020 11:38pm Automated MAIN LAB [address] [place] [address]91 Differential Method January 02, 2021 4:44pm Automated MAIN LAB [address] [address] Differential Pathologist's Review October 14, 2020 11:38pm See comment No comparison data on file at [facility]. Microcytic hypochromic anemia, consistent with iron deficiency.Brice martin reviewed by pathologist for quality assurance engineer.Hair Mello MD10/15/20 MAIN LAB [address] [place] [address]26 Prothrombin Time October 14, 2020 11:38pm 10.8 SECONDS 9.6-11.2 MA[facility] [address] [place] [address]120 Prothromb Time International Ratio October 14, 2020 11:38pm 1.1 2.0-3.0 INR value valid only on patients on stabilized warfarin therapy. The recommended therapeutic range for warfarin (Coumadin) for most clinical indications is an INR of 2.0-3.0. An INR of 2.5-3.5 is recommended for patients with mechanical heart valves. MAIN LAB [address] [place] [address] Activated Partial Thromboplast Time October 14, 2020 11:38pm 26.1 SECONDS 21.6-36.0 A target of 1.5-2.5 times the mean of the normal reference range is considered therapeutic. NOTE: APTT must NOT be used to monitor LMWH therapy. Contact [facility] Pharmacy for monitoring information. MAIN LAB [address] [place] [address]32 Urine Color January 02, 2021 6:04pm Lauren MAIN LAB [address] [address] Urine Clarity January 02, 2021 6:04pm very cloudy MAIN LAB [address] [address] Urine pH January 02, 2021 6:04pm 6.0 [facility] [address] [address] Urine Specific [place] January 02, 2021 6:04pm 1.015 MAIN LAB [address] [address] Urine Protein January 02, 2021 6:04pm 100 (2+) mg/dL NEGATIVE MAIN LAB [address] [address] Urine Glucose (UA) January 02, 2021 6:04pm Normal mg/dL NORMAL MAIN LAB [address] [address] Urine Ketones January 02, 2021 6:04pm Negative NEGATIVE MAIN LAB [address] [address] Urine Nitrite January 02, 2021 6:04pm Negative Negative MAIN LAB [address] [address] Urine Bilirubin January 02, 2021 6:04pm Negative mg/dL NEGATIVE MAIN LAB [address] [address] Urine Urobilinogen January 02, 2021 6:04pm Normal mg/dL NORMAL MAIN LAB [address] [address] Urine Leukocyte Esterase January 02, 2021 6:04pm Moderate (2+) WBC/uL NEGATIVE MAIN LAB [address] [address] Urine Blood January 02, 2021 6:04pm Large (3+) JOEL/uL NEGATIVE MAIN LAB [address] [address] Urine RBC October 14, 2020 11:45pm 10-20 /hpf MAIN LAB [address] [place] [address]995 Urine RBC January 02, 2021 6:04pm Tntc /hpf MAIN LAB [address] [address] Urine WBC October 14, 2020 11:45pm 0-2 /hpf MAIN LAB [address] [place] [address]77 Urine WBC January 02, 2021 6:04pm 3-5 /hpf MAIN LAB [address] [address] Urine Squamous Epithelial Cells January 02, 2021 6:04pm 1+ /hpf MAIN LAB [address] [address] Urine Bacteria October 14, 2020 11:45pm 1+ /hpf NONE SEEN MAIN LAB [address] [place] [address] 33727 Urine Bacteria January 02, 2021 6:04pm None seen /hpf NONE SEEN MAIN LAB [address] [address] Urine Mucus October 14, 2020 11:45pm Present MAIN LAB [address] [place] [address]78 Urine Culture Done October 14, 2020 11:45pm No CULTURE NOT INDICATED. MAIN LAB [address] [place] [address] 59565 Urine Culture Done January 02, 2021 6:04pm Yes URINE SPECIMEN CULTURED MAIN LAB [address] [address] Urine Test January 02, 2021 6:04pm Negative NEGATIVE MAIN LAB [address] [address] Sodium Level October 14, 2020 11:38pm 138 mmol/L 137-145 MAIN LAB [address] [place] [address] 15875 Sodium Level January 02, 2021 4:44pm 141 mmol/L 137-145 MAIN LAB [address] [address] Potassium Level October 14, 2020 11:38pm 3.8 mmol/L 3.6-5.0 MAIN LAB [address] [place] [address]40 Potassium Level January 02, 2021 4:44pm 3.9 mmol/L 3.6-5.0 MAIN LAB [address] [address] Chloride Level October 14, 2020 11:38pm 100 mmol/L 98-107 MAIN LAB [address] [place] [address]552 Chloride Level January 02, 2021 4:44pm 104 mmol/L 98-107 MAIN LAB [address] [address] Carbon Dioxide Level October 14, 2020 11:38pm 25 mmol/L 22-30 MAIN LAB [address] [place] [address]85 Carbon Dioxide Level January 02, 2021 4:44pm 26 mmol/L 22-30 MAIN LAB [address] [address] Anion Gap October 14, 2020 11:38pm 13 7-16 MAIN LAB [address] [facility] [address] Anion Gap January 02, 2021 4:44pm 11 7-16 MAIN LAB [facility] [address] [facility] [address] Blood Urea Nitrogen October 14, 2020 11:38pm 15 mg/dL - MAIN LAB [address] [place] [address]051 Blood Urea Nitrogen January 02, 2021 4:44pm 11 mg/dL 7- MAIN LAB [facility] [address] [facility] [address] Creatinine October 14, 2020 11:38pm 0.76 mg/dL 0.52-1.04 MAIN LAB [address] [place] [address] Creatinine January 02, 2021 4:44pm 0.76 mg/dL 0.52-1.04 MAIN LAB [address] [address] Glomerular Filtration Rate Calc October 14, 2020 11:38pm > 60 mL/min >60.0 MAIN LAB [address] [place] [address] 18084 Glomerular Filtration Rate Calc January 02, 2021 4:44pm > 60 mL/min >60.0 MAIN LAB [address] [address] Glucose Level October 14, 2020 11:38pm 88 mg/dL 70-100 MAIN LAB [address] [place] [address] 22188 Glucose Level January 02, 2021 4:44pm 88 mg/dL 70-100 MAIN LAB [address] [address] Calcium Level October 14, 2020 11:38pm 9.3 mg/dL 8.4-10.2 MAIN LAB [address] [place] [address] 39121 Calcium Level January 02, 2021 4:44pm 9.3 mg/dL 8.4-10.2 MAIN LAB [address] [address] Calcium Adjusted for Albumin October 14, 2020 11:38pm 9.2 mg/dL 8.4-10.2 MAIN LAB [address] [place] [address]97 Calcium Adjusted for Albumin January 02, 2021 4:44pm 8.8 mg/dL 8.4-10.2 MAIN LAB [address] [address] Iron Level October 14, 2020 11:38pm 36 ug/dL 37-170 MAIN LAB [address] [place] [address] Total Bilirubin October 14, 2020 11:38pm 0.3 mg/dL 0.2-1.3 MAIN LAB [address] [place] [address]51 Total Bilirubin January 02, 2021 4:44pm 0.4 mg/dL 0.2-1.3 MAIN LAB [address] [address] Aspartate Amino Transf (AST/SGOT) October 14, 2020 11:38pm 55 U/L 14-36 MAIN LAB [address] [place] [address]320 Aspartate Amino Transf (AST/SGOT) January 02, 2021 4:44pm 39 U/L 14-36 MAIN LAB [address] [address] Alanine Aminotransferase (ALT/SGPT) October 14, 2020 11:38pm 41 U/L <35 As of 09/13/19, the Reference Range for ALT/SGPT for adult patients has been updated. The Reference Range for ALT/SGPT has not been established for patients <18 years of age. MAIN LAB [address] [place] [address] Alanine Aminotransferase (ALT/SGPT) January 02, 2021 4:44pm 21 U/L <35 As of 09/13/19, the Reference Range for ALT/SGPT for adult patients has been updated. The Reference Range for ALT/SGPT has not been established for patients <18 years of age. MAIN LAB [address] [address] Total Protein October 14, 2020 11:38pm 7.4 g/dL 6.3-8.2 MAIN LAB [address] [place] [address]55 Total Protein January 02, 2021 4:44pm 7.9 g/dL 6.3-8.2 MAIN LAB [address] [address] Albumin October 14, 2020 11:38pm 4.4 g/dL 3.5-5.0 MAIN LAB [address] [place] [address]289 Albumin January 02, 2021 4:44pm 4.9 g/dL 3.5-5.0 MAIN LAB [facility] [address] [facility] [address] Alkaline Phosphatase October 14, 2020 11:38pm 55 U/L 38-126 MAIN LAB [address] [place] [address]53 Alkaline Phosphatase January 02, 2021 4:44pm 58 U/L 38-126 MAIN LAB [facility] [address] [facility] [address] Lipase October 14, 2020 11:38pm 43 U/L 23-300 MAIN LAB [address] [place] [address]48 Ferritin October 14, 2020 11:38pm 4.43 ng/mL 10-291 The results of this assay can be falsely decreased in patients who consume Biotin. MAIN LAB [address] [place] [address] Diagnostic Imaging Reports Report Dictated Date/Time Dictated By Status Radiology Report January 02, 2021 5:42pm Megan Balderas MD completed CAT SCAN REPORT PATIENT NAME: EDUARDO PAYAN [...] Signed By : Megan Morales MD dd: 01/02/21174101/02/21 1817 Vital Signs Vital Reading Result Reference Range [...] Diastolic 62 mm[Hg] 50-85 January 02 7:20pm Advance Directives Advance Directive Response Recorded Date/ Time Does patient have an Advanced Directive? No October 14, 2020 11:22pm Do we have a copy on file here at [facility]? No October 14, 2020 11:22pm Pt has a Living Will? No October 14, 2020 11:22pm Do we have a copy on file here at [facility]? No October 14, 2020 11:22pm Pt has a Power of Housekeeping/Laundry? No October 14, 2020 11:22pm Do we have a copy on file here at [facility]? No October 14, 2020 11:22pm Insurance Providers Guarantor EDUARDO PAYAN Address [address] [place] [address] Contact Info. Home Phone: Payer Policy Id Coverage Id Subscriber's Name Subscriber Id Effective Date Expiration Date [facility] [id number] EDUARDO PAYAN [id number] 000 SELF PAY Self N/A Encounters Encounter Location(s) Arrival/Admit Date Discharge/Depart Date Provider(s) Departed Emergency [facility]-Emergency Department October 14, 2020 10:48pm October 15, 2020 12:54am null Departed Emergency [facility] December 29, 2020 4:23pm December 29, 2020 7:13pm null Departed Emergency [facility] January 02, 2021 4:12pm January 02, 2021 7:22pm null Functional Status Observation Response Date Recorded Living Situation Home January 02 7:21pm With Significant Other January 022020 7:21pm Mental Status Observation Response Date Recorded Comprehension Ability Understands Concepts Augus 2020 4:30pm Mood/Behavior Appropriate January 02 4:30pm Comprehension Ability Understands Concepts October 14, 2020 11:00pm Mood/Behavior Appropriate October 14, 2020 1:00pm Plan of Treatment Future Tests Future scheduled test information is unavailable Pending Tests Pending diagnostic test information is unavailable Future Visits Future appointment information is unavailable Referrals to Other Providers Reason for Referral Referral Start Date Provider Regina villegas Contact Information Provider Address Pcp No Pcp No Pcp No Future Procedures Future procedure information is unavailable Future Medications Future medication information is unavailable Patient Instructions Anemia Caused by Low Iron, A dult (DC) Gastritis (DC) Dental Pain (DC) Severe Abdominal Pain, Adult (DC) Hospital Discharge Instructions
--- OUTSIDE RECORDS SUMMARY | 2022-11-20 17:46 | XMS_ITS | Continuity of Care Document ---
Author Name Unknown Address [address], [place] [address] Phone [facility] Address [address], [place] [address] Phone Care Team Providers Care Care Nurse Rn Name Role Phone MD Yolanda Dial Emergency Provider [phone] PCP, of Choice Primary Care Provider MD Konstantin Donis Emergency Provider [phone] Tae Quiroz Emergency Provider MD Sen Segovia Emergency Provider MD Cory Murillo Emergency Provider Care Teams Patient Care Team Team Status: Active Member Role Status Dates of Choice PCP Primary Care Provider Active Visit Care Team Team Status: Inactive Member Role Status Gali Dial MD Emergency Provider Active of Choice PCP Primary Care Provider Active Visit Care [...] Complaint and Reason for Visit Chief Complaint abdominal complaint POST OP CONCERN POST OP CONCERN, BLEEDING PELVIC PAIN HEAVY VAG BLEEDING VAG BLEEDING LOWER ABD/PELVIC PAIN ABD PAIN Allergies, Adverse Reactions, Alerts Allergen Type Severity Reaction Last Updated Verified Status droperidol Allergy anaphylactic shock September 10:31pm Yes Active haloperidol Allergy rash September 16, 2022 10:31pm Yes Active ibuprofen Allergy September 16, 2022 10:31pm Yes Active ketorolac Allergy anaphylaxis September 16, 2022 10:31pm Yes Active latex Allergy rash September 16, 2022 10:31pm Yes Active Penicillins Allergy hives September 16, 2022 10:31pm Yes Active prochlorperazine Allergy hives September 16, 2022 10:31pm Yes Active Social History Smoking Status Status Start Date End Date Date of Observa tion Never smoked tobacco (finding) September 16, 2022 11:42pm Observation Status Observation Response Date of Response Alcohol Use Yes September 16, 2022 11 :42pm alcohol intake frequency a few times a month September 16, 2022 11:42pm Alcohol type hard liquor September 16, 2022 11 :42pm Substance/Street Drug Use Yes September 11:42pm Substance Use Treatment No September 16, 2022 11:42pm substance use type marijuana September 16, 2022 11:42pm Smoking Status Never smoker September 16, 2022 11 :42pm Additional Data Assigned Sex Female Problems Active Problems Medical Problem Onset Date Status Vaginal bleeding Active Abdominal pain Active Inactive/Resolved Problems Medical [...] MG PO DAILY October 15, 2020 12:00am [facility] 2020 5:42pm Hydrocodone-A cetaminophen Disconti nued TABLET December 29, 2020 12:00am January 07, 2021 5:04pm Cefdinir Disconti nued 300 MG PO TWICE A DAY [facility] [place] 2020 12:00am Septem rinku 2020 9:07pm Tramadol Disconti nued 50 MG PO Q8H 10 [facility] [place] 2020 12:00am Septem rinku 2020 9:06pm Montelukast Active 10 [...] Active MG CAPSULE September 16, 2022 12:00am Gabapentin Active 300 MG PO BEDTIME Aug[facility] 2020 12:00am Hydrocodone-A cetaminophen Disconti nued 1 [...] aerosol inhaler Active 2 INH INH DAILY [facility] Ondansetron Hcl (Zofran) 4 mg tablet Disconti nued 4 MG PO Q8H 12 4 [facility] 12:00am [facility] 2020 1:01am Sulfamethoxaz ole-Trimethop rim (Bactrim Ds) 800-160 mg tablet Disconti nued 1 TAB PO TWICE A DAY 14 [facility] 12:00am N[facility] er 2020 1:25pm Tizanidine Disconti nued 4 MG PO As Directed August 07, 2021 12:00am November 10, 2021 12:18p m Ondansetron Active 4 - 8 MG PO Q8H 8 August 07, 2021 12:00am Tranexamic Acid Active MG PO [facility] 12:00am tid for max 5 days Procedures Procedure Date Performed Status Wet Prep completed CT Abd Pel w/ Contrast September 16, 2022 11:33pm com pleted Relevant Diagnostic Tests and/or Laboratory Data Laboratory Results Test Date/Time Result Interpretation Reference Range Result Comment Performing Site White Blood Count November 10, 2021 1:00pm 4.91 1000/mm3 4.8-10.8 [facility] [id number] [address] [address] White Blood Count 2022 8:10pm 5.41 1000/mm3 4.8-10.8 [facility] [id number] [address] [address] White Blood Count April 06, 2022 11:27am 3.71 1000/mm3 4.8-10.8 [facility] [id number] [address] [address] White Blood Count August 28, 2022 5:10pm 5.35 1000/mm3 4.8-10.8 [facility] [id number] [address] [address] White Blood Count September 17, 2022 12:25am 4.23 1000/mm3 4.8-10.8 [facility] [id number] [address] [address] Red Blood Count November 10, 2021 1:00pm 3.22 M/mm3 4.20-5.40 [facility] [id number] [address] [address] Red Blood Count 2022 8:10pm 4.00 M/mm3 4.20-5.40 [facility] [id number] [address] [address] Red Blood Count April 06, 2022 11:27am 3.66 M/mm3 4.20-5.40 [facility] [id number] [address] [address] Red Blood Count August 28, 2022 5:10pm 4.13 M/mm3 4.20-5.40 [facility] [id number] [address] [address] Red Blood Count September 17, 2022 12:25am 3.54 M/mm3 4.20-5.40 [facility] [id number] [address] [address] Hemoglobin November 10, 2021 1:00pm 8.4 g/dL 12.0-16.0 [facility] [id number] [address] [address] Hemoglobin 2022 8:10pm 8.6 g/dL 12.0-16.0 [facility] [id number] [address] [address] Hemoglobin April 06, 2022 11:27am 8.5 g/dL 12.0-16.0 [facility] [id number] [address] [address] Hemoglobin August 28, 2022 5:10pm 9.2 g/dL 12.0-16.0 [facility] [id number] [address] [address] Hemoglobin September 17, 2022 12:25am 7.7 g/dL 12.0-16.0 [facility] [id number] [address] [address] Hematocrit November 10, 2021 1:00pm 26.8 % 37-47 [facility] [id number] [address] [address] Hematocrit 2022 8:10pm 29.3 % 37-47 [facility] [id number] [address] [address] Hematocrit April 06, 2022 11:27am 27.6 % 37-47 [facility] [id number] [address] [address] Hematocrit August 28, 2022 5:10pm 30.8 % 37-47 [facility] [id number] [address] [address] Hematocrit September 17, 2022 12:25am 25.8 % 37-47 [facility] [id number] [address] [address] Mean Corpuscular Volume November 10, 2021 1:00pm 83.2 fL 81.0-99.0 [facility] [id number] [address] [address] Mean Corpuscular Volume 2022 8:10pm 73.3 fL 81.0-99.0 [facility] [id number] [address] [address] Mean Corpuscular Volume April 06, 2022 11:27am 75.4 fL 81.0-99.0 [facility] [id number] [address] [address] Mean Corpuscular Volume August 28, 2022 5:10pm 74.6 fL 81.0-99.0 [facility] [id number] [address] [address] Mean Corpuscular Volume September 17, 2022 12:25am 72.9 fL 81.0-99.0 [facility] [id number] [address] [address] Mean Corpuscular Hemoglobin November 10, 2021 1:00pm 26.1 pg 27-31 [facility] [id number] [address] [address] Mean Corpuscular Hemoglobin 2022 8:10pm 21.5 pg 27-31 [facility] [id number] [address] [address] Mean Corpuscular Hemoglobin April 06, 2022 11:27am 23.2 pg 27-31 [facility] [id number] [address] [address] Mean Corpuscular Hemoglobin August 28, 2022 5:10pm 22.3 pg 27-31 [facility] [id number] [address] [address] Mean Corpuscular Hemoglobin September 17, 2022 12:25am 21.8 pg 27-31 [facility] [id number] [address] [address] Mean Corpuscular Hemoglobin Concent November 10, 2021 1:00pm 31.3 g/dL 33-37 [facility] [id number] [address] [address] Mean Corpuscular Hemoglobin Concent 2022 8:10pm 29.4 g/dL 33-37 [facility] [id number] [address] [address] Mean Corpuscular Hemoglobin Concent April 06, 2022 11:27am 30.8 g/dL 33-37 [facility] [id number] [address] [address] Mean Corpuscular Hemoglobin Concent August 28, 2022 5:10pm 29.9 g/dL 33-37 [facility] [id number] [address] [address] Mean Corpuscular Hemoglobin Concent September 17, 2022 12:25am 29.8 g/dL 33-37 [facility] [id number] [address] [address] Red Cell Distribution Width November 10, 2021 1:00pm 14.4 % 11.5-14.5 [facility] [id number] [address] [address] Red Cell Distribution Width 2022 8:10pm 15.2 % 11.5-14.5 [facility] [id number] [address] [address] Red Cell Distribution Width April 06, 2022 11:27am 16.4 % 11.5-14.5 [facility] [id number] [address] [address] Red Cell Distribution Width August 28, 2022 5:10pm 14.2 % 11.5-14.5 [facility] [id number] [address] [address] Red Cell Distribution Width September 17, 2022 12:25am 14.9 % 11.5-14.5 [facility] [id number] [address] [address] Platelet Count November 10, 2021 1:00pm 282 1000/mm3 140-440 [facility] [id number] [address] [address] Platelet Count 2022 8:10pm 217 1000/mm3 140-440 [facility] [id number] [address] [address] Platelet Count April 06, 2022 11:27am 174 1000/mm3 140-440 [facility] [id number] [address] [address] Platelet Count August 28, 2022 5:10pm 216 1000/mm3 140-440 [facility] [id number] [address] [address] Platelet Count September 17, 2022 12:25am 198 1000/mm3 140-440 [facility] [id number] [address] [address] Mean Platelet Volume November 10, 2021 1:00pm 10.5 fL 7.4-10.4 [facility] [id number] [address] [address] Mean Platelet Volume 2022 8:10pm 12.9 fL 7.4-10.4 [facility] [id number] [address] [address] Mean Platelet Volume August 28, 2022 5:10pm 10.4 fL 7.4-10.4 [facility] [id number] [address] [address] Mean Platelet Volume September 17, 2022 12:25am 11.6 fL 7.4-10.4 [facility] [id number] [address] [address] Neutrophils (%) (Auto) November 10, 2021 1:00pm 67.8 % 40.0-72.0 [facility] [id number] [address] [address] Neutrophils (%) (Auto) 2022 8:10pm 58.0 % 40.0-72.0 [facility] [id number] [address] [address] Neutrophils (%) (Auto) April 06, 2022 11:27am 55.7 % 40.0-72.0 [facility] [id number] [address] [address] Neutrophils (%) (Auto) August 28, 2022 5:10pm 68.4 % 40.0-72.0 [facility] [id number] [address] [address] Neutrophils (%) (Auto) September 17, 2022 12:25am 57.7 % 40.0-72.0 [facility] [id number] [address] [address] Lymphocytes (%) (Auto) November 10, 2021 1:00pm 23.4 % 17-45 [facility] [id number] [address] [address] Lymphocytes (%) (Auto) 2022 8:10pm 31.4 % 17-45 [facility] [id number] [address] [address] Lymphocytes (%) (Auto) April 06, 2022 11:27am 34.0 % 17-45 [facility] [id number] [address] [address] Lymphocytes (%) (Auto) August 28, 2022 5:10pm 24.1 % 17-45 [facility] [id number] [address] [address] Lymphocytes (%) (Auto) September 17, 2022 12:25am 32.4 % 17-45 [facility] [id number] [address] [address] Monocytes (%) (Auto) November 10, 2021 1:00pm 4.7 % 3-11 [facility] [id number] [address] [address] Monocytes (%) (Auto) 2022 8:10pm 7.6 % 3-11 [facility] [id number] [address] [address] Monocytes (%) (Auto) April 06, 2022 11:27am 6.5 % 3-11 [facility] [id number] [address] [address] Monocytes (%) (Auto) August 28, 2022 5:10pm 5.0 % 3-11 [facility] [id number] [address] [address] Monocytes (%) (Auto) September 17, 2022 12:25am 6.9 % 3-11 [facility] [id number] [address] [address] Eosinophils (%) (Auto) November 10, 2021 1:00pm 3.1 % 0-3 [facility] [id number] [address] [address] Eosinophils (%) (Auto) 2022 8:10pm 1.7 % 0-3 [facility] [id number] [address] [address] Eosinophils (%) (Auto) April 06, 2022 11:27am 2.4 % 0-3 [facility] [id number] [address] [address] Eosinophils (%) (Auto) August 28, 2022 5:10pm 1.5 % 0-3 [facility] [id number] [address] [address] Eosinophils (%) (Auto) September 17, 2022 12:25am 1.9 % 0-3 [facility] [id number] [address] [address] Basophils (%) (Auto) November 10, 2021 1:00pm 0.6 % 0-1 [facility] [id number] [address] [address] Basophils (%) (Auto) 2022 8:10pm 1.1 % 0-1 [facility] [id number] [address] [address] Basophils (%) (Auto) April 06, 2022 11:27am 1.1 % 0-1 [facility] [id number] [address] [address] Basophils (%) (Auto) August 28, 2022 5:10pm 0.6 % 0-1 [facility] [id number] [address] [address] Basophils (%) (Auto) September 17, 2022 12:25am 0.9 % 0-1 [facility] [id number] [address] [address] Immature Granulocyte % (Auto) November 10, 2021 1:00pm 0.4 % 0-1 [facility] [id number] [address] [address] Immature Granulocyte % (Auto) 2022 8:10pm 0.2 % 0-1 [facility] [id number] [address] [address] Immature Granulocyte % (Auto) April 06, 2022 11:27am 0.3 % 0-1 [facility] [id number] [address] [address] Immature Granulocyte % (Auto) August 28, 2022 5:10pm 0.4 % 0-1 [facility] [id number] [address] [address] Immature Granulocyte % (Auto) September 17, 2022 12:25am 0.2 % 0-1 [facility] [id number] [address] [address] Neutrophils # (Auto) November 10, 2021 1:00pm 3.33 1000/mm3 1.4-6.5 [facility] [id number] [address] [address] Neutrophils # (Auto) 2022 8:10pm 3.14 1000/mm3 1.4-6.5 [facility] [id number] [address] [address] Neutrophils # (Auto) April 06, 2022 11:27am 2.07 1000/mm3 1.4-6.5 [facility] [id number] [address] [address] Neutrophils # (Auto) August 28, 2022 5:10pm 3.66 1000/mm3 1.4-6.5 [facility] [id number] [address] [address] Neutrophils # (Auto) September 17, 2022 12:25am 2.44 1000/mm3 1.4-6.5 [facility] [id number] [address] [address] Lymphocytes # (Auto) November 10, 2021 1:00pm 1.15 1000/mm3 1.2-3.4 [facility] [id number] [address] [address] Lymphocytes # (Auto) 2022 8:10pm 1.70 1000/mm3 1.2-3.4 [facility] [id number] [address] [address] Lymphocytes # (Auto) April 06, 2022 11:27am 1.26 1000/mm3 1.2-3.4 [facility] [id number] [address] [address] Lymphocytes # (Auto) August 28, 2022 5:10pm 1.29 1000/mm3 1.2-3.4 [facility] [id number] [address] [address] Lymphocytes # (Auto) September 17, 2022 12:25am 1.37 1000/mm3 1.2-3.4 [facility] [id number] [address] [address] Monocytes # (Auto) November 10, 2021 1:00pm 0.23 1000/mm3 0.0-0.8 [facility] [id number] [address] [address] Monocytes # (Auto) 2022 8:10pm 0.41 1000/mm3 0.0-0.8 [facility] [id number] [address] [address] Monocytes # (Auto) April 06, 2022 11:27am 0.24 1000/mm3 0.0-0.8 [facility] [id number] [address] [address] Monocytes # (Auto) August 28, 2022 5:10pm 0.27 1000/mm3 0.0-0.8 [facility] [id number] [address] [address] Monocytes # (Auto) September 17, 2022 12:25am 0.29 1000/mm3 0.0-0.8 [facility] [id number] [address] [address] Eosinophils # (Auto) November 10, 2021 1:00pm 0.15 1000/mm3 0.0-0.7 [facility] [id number] [address] [address] Eosinophils # (Auto) 2022 8:10pm 0.09 1000/mm3 0.0-0.7 [facility] [id number] [address] [address] Eosinophils # (Auto) April 06, 2022 11:27am 0.09 1000/mm3 0.0-0.7 [facility] [id number] [address] [address] Eosinophils # (Auto) August 28, 2022 5:10pm 0.08 1000/mm3 0.0-0.7 [facility] [id number] [address] [place] [address] Eosinophils # (Auto) September 17, 2022 12:25am 0.08 1000/mm3 0.0-0.7 [facility] [id number] [address] [address] Basophils # (Auto) November 10, 2021 1:00pm 0.03 1000/mm3 0.0-0.1 [facility] [id number] [address] [address] Basophils # (Auto) 2022 8:10pm 0.06 1000/mm3 0.0-0.1 [facility] [id number] [address] [address] Basophils # (Auto) April 06, 2022 11:27am 0.04 1000/mm3 0.0-0.1 [facility] [id number] [address] [address] Basophils # (Auto) August 28, 2022 5:10pm 0.03 1000/mm3 0.0-0.1 [facility] [id number] [address] [address] Basophils # (Auto) September 17, 2022 12:25am 0.04 1000/mm3 0.0-0.1 [facility] [id number] [address] [address] Absolute Immature Granulocyte (auto November 10, 2021 1:00pm 0.0 0-1 [facility] [id number] [address] [address] Absolute Immature Granulocyte (auto 2022 8:10pm 0.0 0-1 [facility] [id number] [address] [address] Absolute Immature Granulocyte (auto April 06, 2022 11:27am 0.0 0-1 [facility] [id number] [address] [address] Absolute Immature Granulocyte (auto August 28, 2022 5:10pm 0.0 0-1 [facility] [id number] [address] [address] Absolute Immature Granulocyte (auto September 17, 2022 12:25am 0.0 0-1 [facility] [id number] [address] [address] Differential Method November 10, 2021 1:00pm Automated [facility] [id number] [address] [address] Differential Method 2022 8:10pm Automated [facility] [id number] [address] [address] Differential Method April 06, 2022 11:27am Automated [facility] [id number] [address] [address] Differential Method August 28, 2022 5:10pm Automated [facility] [id number] [address] [address] Differential Method September 17, 2022 12:25am Automated [facility] [id number] [address] [address] Erythrocyte Sedimentatio n Rate August 28, 2022 5:10pm 10 mm/hr 0-15 [facility] [id number] [address] [address] Serum Test, Qualitative April 06, 2022 11:27am Negative NEGATIVE [facility] [id number] [address] [address] Sodium Level November 10, 2021 1:00pm 139 mmol/L 137-145 [facility] [id number] [address] [address] Sodium Level 2022 8:10pm 140 mmol/L 137-145 [facility] [id number] [address] [address] Sodium Level April 06, 2022 11:27am 142 mmol/L 137-145 [facility] [id number] [address] [address] Potassium Level November 10, 2021 1:00pm 4.2 mmol/L 3.6-5.0 [facility] [id number] [address] [address] Potassium Level 2022 8:10pm 3.7 mmol/L 3.6-5.0 [facility] [id number] [address] [address] Potassium Level April 06, 2022 11:27am 3.7 mmol/L 3.6-5.0 [facility] [id number] [address] [address] Chloride Level November 10, 2021 1:00pm 104 mmol/L 98-107 [facility] [id number] [address] [address] Chloride Level 2022 8:10pm 102 mmol/L 98-107 [facility] [id number] [address] [address] Chloride Level April 06, 2022 11:27am 106 mmol/L 98-107 [facility] [id number] [address] [address] Carbon Dioxide Level November 10, 2021 1:00pm 24 mmol/L 22-30 [facility] [id number] [address] [address] Carbon Dioxide Level 2022 8:10pm 30 mmol/L 22-30 [facility] [id number] [address] [address] Carbon Dioxide Level April 06, 2022 11:27am 27 mmol/L 22-30 [facility] [id number] [address] [address] Anion Gap November 10, 2021 1:00pm 11 7-16 [facility] [id number] [address] [address] Anion Gap 2022 8:10pm 8 7-16 [facility] [id number] [address] [address] Anion Gap April 06, 2022 11:27am 9 7-16 [facility] [id number] [address] [address] Blood Urea Nitrogen November 10, 2021 1:00pm 7 mg/dL 7-17 [facility] [id number] [address] [address] Blood Urea Nitrogen 2022 8:10pm 8 mg/dL 7-17 [facility] [id number] [address] [address] Blood Urea Nitrogen April 06, 2022 11:27am 10 mg/dL 7-17 [facility] [id number] [address] [address] Creatinine November 10, 2021 1:00pm 0.76 mg/dL 0.52-1.04 [facility] [id number] [address] [address] Creatinine 2022 8:10pm 0.66 mg/dL 0.52-1.04 [facility] [id number] [address] [address] Creatinine April 06, 2022 11:27am 0.73 mg/dL 0.52-1.04 [facility] [id number] [address] [address] Glomerular Filtration Rate Calc November 10, 2021 1:00pm > 60 mL/min >60.0 [facility] [id number] [address] [address] Glomerular Filtration Rate Calc 2022 8:10pm > 60 mL/min >60.0 [facility] [id number] [address] [address] Glomerular Filtration Rate Calc April 06, 2022 11:27am > 60 mL/min >60.0 [facility] [id number] [address] [address] Glucose Level November 10, 2021 1:00pm 95 mg/dL 70-100 [facility] [id number] [address] [address] Glucose Level 2022 8:10pm 97 mg/dL 70-100 [facility] [id number] [address] [address] Glucose Level April 06, 2022 11:27am 90 mg/dL 70-100 [facility] [id number] [address] [address] Calcium Level November 10, 2021 1:00pm 9.6 mg/dL 8.4-10.2 [facility] [id number] [address] [address] Calcium Level 2022 8:10pm 9.2 mg/dL 8.4-10.2 [facility] [id number] [address] [address] Calcium Level April 06, 2022 11:27am 8.9 mg/dL 8.4-10.2 [facility] [id number] [address] [address] Calcium Adjusted for Albumin April 06, 2022 11:27am 8.7 mg/dL 8.4-10.2 [facility] [id number] [address] [address] Total Bilirubin April 06, 2022 11:27am 0.5 mg/dL 0.2-1.3 [facility] [id number] [address] [address] Aspartate Amino Transf (AST/SGOT) April 06, 2022 11:27am 46 U/L 14-36 [facility] [id number] [address] [address] Alanine Aminotransfe rase (ALT/SGPT) April 06, 2022 11:27am 35 U/L <35 [facility] [id number] [address] [address] Total Protein April 06, 2022 11:27am 7.4 g/dL 6.3-8.2 [facility] [id number] [address] [address] Albumin April 06, 2022 11:27am 4.6 g/dL 3.5-5.0 [facility] [id number] [address] [address] Alkaline Phosphatase April 06, 2022 11:27am 52 U/L 38-126 [facility] [id number] [address] [address] Lipase April 06, 2022 11:27am 37 U/L 23-300 [facility] [id number] [address] [address] Sodium Level August 28, 2022 4:05pm 137 mmol/L 137-145 [facility] [id number] [address] [address] Sodium Level September 17, 2022 12:25am 140 mmol/L 137-145 [facility] [id number] [address] [address] Potassium Level August 28, 2022 4:05pm 3.9 mmol/L 3.6-5.0 [facility] [id number] [address] [address] Potassium Level September 17, 2022 12:25am 3.9 mmol/L 3.6-5.0 [facility] [id number] [address] [address] Chloride Level August 28, 2022 4:05pm 104 mmol/L 98-107 [facility] [id number] [address] [address] Chloride Level September 17, 2022 12:25am 106 mmol/L 98-107 [facility] [id number] [address] [address] Carbon Dioxide Level August 28, 2022 4:05pm 22 mmol/L 22-30 [facility] [id number] [address] [address] Carbon Dioxide Level September 17, 2022 12:25am 23 mmol/L 22-30 [facility] [id number] [address] [address] Anion Gap August 28, 2022 4:05pm 11 7-16 [facility] [id number] [address] [address] Anion Gap September 17, 2022 12:25am 11 7-16 [facility] [id number] [address] [address] Blood Urea Nitrogen August 28, 2022 4:05pm 10 mg/dL 7-17 [facility] [id number] [address] [address] Blood Urea Nitrogen September 17, 2022 12:25am 10 mg/dL 7-17 [facility] [id number] [address] [address] Creatinine August 28, 2022 4:05pm 0.58 mg/dL 0.52-1.04 [facility] [id number] [address] [address] Creatinine September 17, 2022 12:25am 0.60 mg/dL 0.52-1.04 [facility] [id number] [address] [address] Glomerular Filtration Rate Calc August 28, 2022 4:05pm > 60 mL/min >60.0 [facility] [id number] [address] [address] Glomerular Filtration Rate Calc September 17, 2022 12:25am 129 mL/min >60.0 [facility] [id number] [address] [address] Glucose Level August 28, 2022 4:05pm 83 mg/dL 70-100 [facility] [id number] [address] [address] Glucose Level September 17, 2022 12:25am 91 mg/dL 70-100 [facility] [id number] [address] [address] Calcium Level August 28, 2022 4:05pm 9.1 mg/dL 8.4-10.2 [facility] [id number] [address] [address] Calcium Level September 17, 2022 12:25am 8.9 mg/dL 8.4-10.2 [facility] [id number] [address] [address] Calcium Adjusted for Albumin August 28, 2022 4:05pm 8.9 mg/dL 8.4-10.2 [facility] [id number] [address] [address] Calcium Adjusted for Albumin September 17, 2022 12:25am 8.8 mg/dL 8.4-10.2 [facility] [id number] [address] [address] Albumin August 28, 2022 4:05pm 4.5 g/dL 3.5-5.0 [facility] [id number] [address] [address] Albumin September 17, 2022 12:25am 4.4 g/dL 3.5-5.0 [facility] [id number] [address] [address] Total Protein August 28, 2022 4:05pm 7.3 g/dL 6.3-8.2 [facility] [id number] [address] [address] Total Protein September 17, 2022 12:25am 7.0 g/dL 6.3-8.2 [facility] [id number] [address] [address] Alkaline Phosphatase August 28, 2022 4:05pm 56 U/L 38-126 [facility] [id number] [address] [address] Alkaline Phosphatase September 17, 2022 12:25am 41 U/L 38-126 [facility] [id number] [address] [address] Alanine Aminotransfe rase (ALT/SGPT) August 28, 2022 4:05pm 33 U/L <35 Per Ortho Clinical Diagnostic's notification dated July 18, 2022, note that ascorbic acid concentrations of 100 mg/dL may produce a negative bias greater than 12.5%. [facility] [id number] [address] [address] Alanine Aminotransfe rase (ALT/SGPT) September 17, 2022 12:25am 23 U/L <35 Per Ortho Clinical Diagnostic's notification dated July 18, 2022, note that ascorbic acid concentrations of 100 mg/dL may produce a negative bias greater than 12.5%. [facility] [id number] [address] [address] Aspartate Amino Transf (AST/SGOT) August 28, 2022 4:05pm 36 U/L 14-36 [facility] [id number] [address] [address] Aspartate Amino Transf (AST/SGOT) September 17, 2022 12:25am 39 U/L 14-36 [facility] [id number] [address] [address] Total Bilirubin August 28, 2022 4:05pm 0.4 mg/dL 0.2-1.3 [facility] [id number] [address] [address] Total Bilirubin September 17, 2022 12:25am 0.3 mg/dL 0.2-1.3 [facility] [id number] [address] [place] [address] Lipase September 17, 2022 12:25am 43 U/L 23-300 [facility] [id number] [address] [address] C-Reactive Protein August 28, 2022 4:05pm 6.0 mg/L 5-10 [facility] [id number] [address] [address] Chlamydia trachomatis RNA August 28, 2022 7:50pm Negative Negative [facility] [employer] [id number] Neisseria gonorrhoeae RNA August 28, 2022 7:50pm Negative Negative [facility]/GC SOURCES: ENDOCERVICSourc e:CERVIXTest performed or referred by[address] [employer] [id number] Microbiology Results Procedure Source Result Collection Date/Time Result Date/Time Result Comment Performing Site Wet Prep Vaginal August 28, 2022 8:16pm [facility] [id number] [address] [address] Diagnostic Imaging Reports Author Ascencion Mariee [facility] September 17, 2022 3:57am Report Date/Time September 17, 2022 3:57am [facility] CAT SCAN REPORT PATIENT NAME: [...] Signed By : Ascencion Mariee MD dd: 09/17/227 09/17/22 035 Vital Signs Vital Reading Result Reference Range Collection Date/Time Weight 79.37 kg September 23, 2021 3:18pm [...] mm[Hg] 50-85 September 17, 2022 4 :10am Advance Directives Advance Directive Response Recorded Date/ Time Does patient have an Advance Directive? No 2022 7:29pm Does patient have a COLST form? No 2022 7:29pm Insurance Providers Guarantor EDUARDO M ORA Address [address] [address] Contact Info. Home Phone: Payer Policy Id Coverage Id Subscriber's Name Subscriber Id Effective Date Expiration Date [facility] [id number] EDUARDO PAYAN [id number] SELF PAY Self N/A Encounters Encounter Location(s) Arrival/Admit Date Discharge/Depart Date Provider(s) Departed Emergency [facility] September 23, 2021 3:02pm September 23, 2021 7:35pm null Departed Emergency [facility] November 10, 2021 11:22am November 10, 2021 5:45pm null Departed Emergency [facility] 2022 5:23pm 2022 9:55pm null Departed Emergency [facility] February 20, 2022 2:39pm February 20, 2022 3:42pm null Depart Emergency [facility] March 19, 2022 2:34pm March 19, 2022 4:09pm null Departed Emergency [facility] April 06, 2022 11:08am April 06, 2022 12:29pm null Departed Emergency [facility] August 28, 2022 1:47pm August 28, 2022 10:20pm null Departed Emergency [facility] September 16, 2022 10:06pm September 17, 2022 4:32am null Functional Status Observation Response Date Recorded Living Situation Home September 17, 2022 4 :32am With Significant Other September 17, 2022 4:32am Mental Status Observation Response Date Recorded Speech Appropriate September 23, 2021 3 :50pm Comprehension Ability Understands Concepts Novem 2021 11:53am [...] Provider Contact Information Provider Address [place] No Pcp Emely hololway MD Work Phone: [facility] 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 [facility] [address] No Pcp No Pcp No Pcp Ashlie Ramos Work Phone: [address] [place] [address] No Pcp Future Procedures Future procedure information is unavailable Future Medications Future medication information is unavailable Patient Instructions Abdominal Pain, Adult ED Chronic Pelvic Pain (DC) Abdominal Pain, Adult ED Heavy Periods (DC) Hospital Discharge Instructions Additional Instructions your blood counts were a little lower than usual. Talk to your aerial photogrammetrist and PCP for further recommendations. If you faint or develop shortness of breath or weakness this may be signs you need a blood transfusion. If you have any reoccurrence of your bleeding please return to the ED. Patient contact information: Primary phone:[phone] (Note to patient; Please let our registration staff know if this phone number is not correct so we can keep our systems accurate) *Regarding pending labs, you will only be called for positive/abnormal results. Negative/normal results can be found on the patient portal.
--- OUTSIDE RECORDS SUMMARY | 2022-11-20 17:46 | XMS_ITS | Continuity of Care Document ---
Author Name Unknown Address [address] [place] [address] Phone [facility] Address [address] [place] [address] Phone Support Name Relationship Address Phone JHONY, BO Friend or Other Unknown KIRA Garcia Emergency Provider [facility] [place] [address] MD Konstantin Villaseñor Emergency Provider [facility] [place] [address] Elier Luther Emergency Provider [facility] [place] [address] MARIELLA Thomson Emergency Provider [facility] [place] [address] MD Tae Zapata Emergency Provider [facility] [place] [address] MARIELLA Ledezma Emergency Provider [facility] [place] [address] MARIELLA Gomez Emergency Provider [facility] [place] [address] MD Yolanda Dial Emergency Provider [facility] [place] [address] MD Praveen Harden Emergency Provider [facility] [place] [address] MD Pierce Cowan Emergency Provider [facility] [place] [address] Care Team Providers Care Comic Writer Name Role Phone PCP, of Choice Primary Care Provider Unavailabl e Out of Town, Provider Primary Care Provider Unav ailable Chief Complaint and Reason for Visit Chief Complaint LEFT FLANK PAIN ORAL INFECTION RECTAL BLEEDING abdominal pain OVARIAN CYST POST OP CONCERN ABDOMINAL PAIN HEAVY VAG BLEEDING FALL/ BACK COMPLAINT PELVIC PAIN RIGHT SIDE PAIN 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 Allergies, Adverse Reactions, Alerts Allergen Type Severity Reaction Last Updated Verified Status droperidol Allergy anaphylactic shock August 10, 2021 2:49pm Yes Active haloperidol Allergy rash August 10 022 2:49pm Yes Active ibuprofen Allergy August 10 2:49pm Yes Active ketorolac Allergy anaphylaxis August 10 022 2:49pm Yes Active latex Allergy rash August 10 2:49pm Yes Active Penicillins Allergy hives August 10 2:49pm Yes Active prochlorperazine Allergy hives August 102021 2:49pm Yes Active Social History Smoking Status Status Start Date End Date Date of Observa tion Never smoked tobacco (finding) August 26, 2021 6:45pm Observation Status Observation Response Date of Response Alcohol Use Yes August 26, 2021 6:45pm alcohol intake frequency a few times a month Apr 2021 6:45pm Alcohol type hard liquor August 26, 2021 6:45pm Substance/Street Drug Use Yes August 26, 2021 6:45pm substance use type marijuana August 26 6:45pm Smoking Status Never smoker August 26, 2021 6:45pm Additional Data Assigned Sex Female Problems Active [...] pain Resolved Abdominal pain Resolved Endometriosis Resolved Constipation Resolved Vomiting Resolved [...] MG PO DAILY October 15, 2020 [facility] Hydrocodone- Acetaminophe n Discontin ued TABLET December 29, 2020 4:35pm January 07, 2021 5:04pm Cefdinir Discontin ued 300 MG PO TWICE A DAY 20 [facility] 2020 4:03pm Septem rinku 2020 9:07pm Tramadol Discontin ued 50 MG PO Q8H 10 [facility] Montelukast Active 10 [...] 2020 3:08pm Oxycodone Discontin ued MG CAPSULE 2020 3:59pm Februa ry 2021 3:37pm Fluticasone Propion-Salm eterol (Advair Hfa) 115-21 mcg/actuatio n HFA aerosol inhaler Active INH 2020 3:59pm Ondansetron Hcl (Zofran) 4 mg tablet Discontin ued 4 MG PO Q8H 12 4 r 2020 5:45pm Novemb er 2020 1:01am Sulfamethoxa zole-Trimeth oprim (Bactrim Ds) 800-160 mg tablet Discontin ued 1 TAB PO TWICE A DAY 14 2020 7:52pm Novemb er 2020 1:25pm Tizanidine [...] 2020 11:38pm 7.41 1000/mm3 4.8-10.8 [facility] [address] [place] [address] White Blood Count January 02, 2021 4:44pm 6.81 1000/mm3 4.8-10.8 MAIN [facility] [address] [address] White Blood Count January 07, 2021 5:35pm 5.33 1000/mm3 4.8-10.8 MAIN LAB [address] [address] White Blood Count January 29, 2021 9:57pm 5.85 1000/mm3 4.8-10.8 MA[facility] [address] [address] White Blood Count March 16, 2021 5:34pm 6.11 1000/mm3 4.8-10.8 MAIN LAB [address] [address] White Blood Count March 18, 2021 7:56pm 5.26 1000/mm3 4.8-10.8 MAIN [facility] [address] [address] White Blood Count March 20, 2021 4:37pm 4.94 1000/mm3 4.8-10.8 MAIN LAB [address] [address] White Blood Count August 07, 2021 1:30pm 4.95 1000/mm3 4.8-10.8 MAIN [facility] [address] [address] White Blood Count August 10, 2021 3:14pm 4.83 1000/mm3 4.8-10.8 MA[facility] [address] [address] Red Blood Count October 14, 2020 11:38pm 4.44 M/mm3 4.20-5.40 MA[facility] [address] [place] [address] Red Blood Count January 02, 2021 4:44pm 4.67 M/mm3 4.20-5.40 MA[facility] [address] [address] Red Blood Count January 07, 2021 5:35pm 4.85 M/mm3 4.20-5.40 MA[facility] [address] 8[address] Red Blood Count January 29, 2021 9:57pm 4.53 M/mm3 4.20-5.40 MAIN [facility] [address] [address] Red Blood Count March 16, 2021 5:34pm 4.26 M/mm3 4.20-5.40 MAIN [facility] [address] [address] Red Blood Count March 18, 2021 7:56pm 4.17 M/mm3 4.20-5.40 MAIN LAB [facility] [address] [facility] [address] Red Blood Count March 20, 2021 4:37pm 4.14 M/mm3 4.20-5.40 MAIN LAB [facility] [address] [facility] [address] Red Blood Count August 07, 2021 1:30pm 4.43 M/mm3 4.20-5.40 MAIN LAB [facility] [address] [facility] [address] Red Blood Count August 10, 2021 3:14pm 3.83 M/mm3 4.20-5.40 MAIN [facility] [address] [address] Hemoglobin October 14, 2020 11:38pm 9.2 g/dL 12.0-16.0 MA[facility] [address] [place] [address] Hemoglobin January 02, 2021 4:44pm 10.4 g/dL 12.0-16.0 MAIN LAB [facility] [address] [facility] 16[address] Hemoglobin January 07, 2021 5:35pm 10.8 g/dL 12.0-16.0 MAIN [facility] [address] [facility] [address] Hemoglobin January 29, 2021 9:57pm 10.4 g/dL 12.0-16.0 MAIN LAB [address] [address] Hemoglobin March 16, 2021 5:34pm 9.9 g/dL 12.0-16.0 MA[facility] [address] [facility] [address] Hemoglobin March 18, 2021 7:56pm 9.9 g/dL 12.0-16.0 MAIN LAB [facility] [address] [facility] [address] Hemoglobin March 20, 2021 4:37pm 9.8 g/dL 12.0-16.0 MA[facility] [address] [facility] [address] Hemoglobin August 07, 2021 1:30pm 11.4 g/dL 12.0-16.0 MAIN [facility] [address] [facility] [address] Hemoglobin August 10, 2021 3:14pm 9.9 g/dL 12.0-16.0 MA[facility] [address] [facility] [address] Hematocrit October 14, 2020 11:38pm 30.6 % 37-47 [facility] [address] [facility] [address] Hematocrit January 02, 2021 4:44pm 35.2 % 37-47 MAIN LAB [facility] [address] [facility] [address] Hematocrit January 07, 2021 5:35pm 36.3 % 37-47 MAIN [facility] [address] [address] Hematocrit January 29, 2021 9:57pm 33.7 % 37-47 MA[facility] [address] [address] Hematocrit March 16, 2021 5:34pm 33.2 % 37-47 MA[facility] [address] [address] Hematocrit March 18, 2021 7:56pm 32.9 % 37-47 MA[facility] [address] [address] Hematocrit March 20, 2021 4:37pm 32.6 % 37-47 MA[facility] [address] [address] Hematocrit August 07, 2021 1:30pm 36.4 % 37-47 MA[facility] [address] [address] Hematocrit August 10, 2021 3:14pm 31.6 % 37-47 MA[facility] [address] [address] Mean Corpuscular Volume October 14, 2020 11:38pm 68.9 fL 81.0-99.0 MA[facility] [address] [place] [address]142 Mean Corpuscular Volume January 02, 2021 4:44pm 75.4 fL 81.0-99.0 MAIN [facility] [address] [address] Mean Corpuscular Volume January 07, 2021 5:35pm 74.8 fL 81.0-99.0 MAIN [facility] [address] [address]80 Mean Corpuscular Volume January 29, 2021 9:57pm 74.4 fL 81.0-99.0 MAIN LAB [facility] [address] [facility] 79[address] Mean Corpuscular Volume March 16, 2021 5:34pm 77.9 fL 81.0-99.0 MAIN [facility] [address] [facility] 84693 Mean Corpuscular Volume March 18, 2021 7:56pm 78.9 fL 81.0-99.0 MAIN [facility] [address] [facility] 70[address] Mean Corpuscular Volume March 20, 2021 4:37pm 78.7 fL 81.0-99.0 MAIN [facility] [address] [address] Mean Corpuscular Volume August 07, 2021 1:30pm 82.2 fL 81.0-99.0 MAIN [facility] [address] 6[address] Mean Corpuscular Volume August 10, 2021 3:14pm 82.5 fL 81.0-99.0 MA[facility] [address] [address]702 Mean Corpuscular Hemoglobin October 14, 2020 11:38pm 20.7 pg 27-31 MA[facility] [address] [place] [address]33 Mean Corpuscular Hemoglobin January 02, 2021 4:44pm 22.3 pg 27-31 MAIN LAB [facility] [address] [facility] 295[address] Mean Corpuscular Hemoglobin January 07, 2021 5:35pm 22.3 pg 27-31 MAIN [facility] [address] [facility] 09690 Mean Corpuscular Hemoglobin January 29, 2021 9:57pm 23.0 pg 27-31 MAIN LAB [facility] [address] [facility] 27194 Mean Corpuscular Hemoglobin March 16, 2021 5:34pm 23.2 pg 27-31 MAIN LAB [facility] [address] [facility] 02728 Mean Corpuscular Hemoglobin March 18, 2021 7:56pm 23.7 pg 27-31 MAIN LAB [facility] [address] [facility] 750[address] Mean Corpuscular Hemoglobin March 20, 2021 4:37pm 23.7 pg 27-31 MAIN LAB [facility] [address] [facility] 38[address] Mean Corpuscular Hemoglobin August 07, 2021 1:30pm 25.7 pg 27-31 MAIN LAB [facility] [address] [facility] 6[address] Mean Corpuscular Hemoglobin August 10, 2021 3:14pm 25.8 pg 27-31 MAIN LAB [facility] [address] [facility] 26[address] Mean Corpuscular Hemoglobin Concent October 14, 2020 11:38pm 30.1 g/dL 33-37 MA[facility] [address] [place] [address] Mean Corpuscular Hemoglobin Concent January 02, 2021 4:44pm 29.5 g/dL 33-37 MAIN [facility] [address] [address] Mean Corpuscular Hemoglobin Concent January 07, 2021 5:35pm 29.8 g/dL 33-37 MAIN [facility] [address] [address] Mean Corpuscular Hemoglobin Concent January 29, 2021 9:57pm 30.9 g/dL 33-37 MAIN [facility] [address] [address]249 Mean Corpuscular Hemoglobin Concent March 16, 2021 5:34pm 29.8 g/dL 33-37 MAIN LAB [facility] [address] [facility] 8[address] Mean Corpuscular Hemoglobin Concent March 18, 2021 7:56pm 30.1 g/dL 33-37 MAIN LAB [address] [address] Mean Corpuscular Hemoglobin Concent March 20, 2021 4:37pm 30.1 g/dL 33-37 MAIN LAB [facility] [address] [facility] 55270 Mean Corpuscular Hemoglobin Concent August 07, 2021 1:30pm 31.3 g/dL 33-37 MAIN LAB [facility] [address] [facility] 6[address]78 Mean Corpuscular Hemoglobin Concent August 10, 2021 3:14pm 31.3 g/dL 33-37 MA[facility] [address] [address] Red Cell Distribution Width October 14, 2020 11:38pm 16.8 % 11.5-14.5 MA[facility] [address] [place] [address]30 Red Cell Distribution Width January 02, 2021 4:44pm 19.4 % 11.5-14.5 MAIN [facility] [address] [address] Red Cell Distribution Width January 07, 2021 5:35pm 18.6 % 11.5-14.5 MAIN [facility] [address] [address]89 Red Cell Distribution Width January 29, 2021 9:57pm 17.6 % 11.5-14.5 MAIN [facility] [address] [address]876 Red Cell Distribution Width March 16, 2021 5:34pm 16.2 % 11.5-14.5 MAIN LAB [address] [address]486 Red Cell Distribution Width March 18, 2021 7:56pm 16.4 % 11.5-14.5 MAIN LAB [address] [address]689 Red Cell Distribution Width March 20, 2021 4:37pm 16.5 % 11.5-14.5 MAIN LAB [address] 11896 Red Cell Distribution Width August 07, 2021 1:30pm 14.0 % 11.5-14.5 MAIN LAB [address] [address]35 Red Cell Distribution Width August 10, 2021 3:14pm 14.0 % 11.5-14.5 MAIN [facility] [address] [address]348 Platelet Count October 14, 2020 11:38pm 250 1000/mm3 140-440 MA[facility] [address] [place] [address]04 Platelet Count January 02, 2021 4:44pm 216 1000/mm3 140-440 MAIN [facility] [address] 71002 Platelet Count January 07, 2021 5:35pm 240 1000/mm3 140-440 MAIN LAB [facility] [address] [facility] 27581 Platelet Count January 29, 2021 9:57pm 248 1000/mm3 140-440 MAIN LAB [facility] [address] [facility] 599[address] Platelet Count March 16, 2021 5:34pm 220 1000/mm3 140-440 MAIN [facility] [address] 13987 Platelet Count March 18, 2021 7:56pm 212 1000/mm3 140-440 MAIN [facility] [address] 79372 Platelet Count March 20, 2021 4:37pm 177 1000/mm3 140-440 MAIN [facility] [address] [address] Platelet Count August 07, 2021 1:30pm 207 1000/mm3 140-440 MAIN [facility] [address] [address]69 Platelet Count August 10, 2021 3:14pm 189 1000/mm3 140-440 MAIN [facility] [address] [address] Mean Platelet Volume October 14, 2020 11:38pm 10.6 fL 7.4-10.4 MA[facility] [address] [place] [address]42 Mean Platelet Volume January 02, 2021 4:44pm 10.7 fL 7.4-10.4 MAIN LAB [address] [address]24 Mean Platelet Volume January 07, 2021 5:35pm 11.3 fL 7.4-10.4 MAIN [facility] [address] 16068 Mean Platelet Volume January 29, 2021 9:57pm 10.6 fL 7.4-10.4 MAIN LAB [address] [address]38 Mean Platelet Volume March 16, 2021 5:34pm 10.6 fL 7.4-10.4 MAIN [facility] [address] 27795 Mean Platelet Volume March 18, 2021 7:56pm 10.4 fL 7.4-10.4 MAIN LAB [address] 32373 Mean Platelet Volume March 20, 2021 4:37pm 9.9 fL 7.4-10.[address] [address] Mean Platelet Volume August 07, 2021 1:30pm 11.0 fL 7.4-10.[address] [address]235 Mean Platelet Volume August 10, 2021 3:14pm 10.7 fL 7.4-10.[address] [address] Neutrophils (%) (Auto) October 14, 2020 11:38pm 60.3 % 40.0-72.[address] [address] Neutrophils (%) (Auto) January 02, 2021 4:44pm 64.3 % 40.0-72.[address] [address] Neutrophils (%) (Auto) January 07, 2021 5:35pm 51.4 % 40.0-72.[address] [address] Neutrophils (%) (Auto) January 29, 2021 9:57pm 57.7 % 40.0-72.[address] [address] Neutrophils (%) (Auto) March 16, 2021 5:34pm 62.5 % 40.0-72.[address] [address]376 Neutrophils (%) (Auto) March 18, 2021 7:56pm 57.9 % 40.0-72.[address] [address] Neutrophils (%) (Auto) March 20, 2021 4:37pm 64.0 % 40.0-72.[address] [address]48 Neutrophils (%) (Auto) August 07, 2021 1:30pm 67.7 % 40.0-72.[address] [address] Neutrophils (%) (Auto) August 10, 2021 3:14pm 58.2 % 40.0-72.0 [facility] [address] [address] Lymphocytes (%) (Auto) October 14, 2020 11:38pm 29.0 % 17-45 MAIN LAB [address] [place] [address] Lymphocytes (%) (Auto) January 02, 2021 4:44pm 26.3 % 17-45 MAIN [facility] [address] [address]882 Lymphocytes (%) (Auto) January 07, 2021 5:35pm 37.7 % 17-[address] [address] Lymphocytes (%) (Auto) January 29, 2021 9:57pm 32.6 % 17-[address] [address] Lymphocytes (%) (Auto) March 16, 2021 5:34pm 26.7 % 17-45 MAIN LAB [address] [address] Lymphocytes (%) (Auto) March 18, 2021 7:56pm 30.4 % 17-[address] [address]559 Lymphocytes (%) (Auto) March 20, 2021 4:37pm 26.1 % 17-[address] [address] Lymphocytes (%) (Auto) August 07, 2021 1:30pm 24.2 % 17-45 MAIN LAB [address] [address] Lymphocytes (%) (Auto) August 10, 2021 3:14pm 32.3 % 17-45 [facility] [address] [address] Monocytes (%) (Auto) October 14, 2020 11:38pm 8.2 % 3-11 MA[facility] LAB [address] [place] [address]82 Monocytes (%) (Auto) January 02, 2021 4:44pm 6.2 % 3-11 MAIN LAB [address] [place] [address] Monocytes (%) (Auto) January 07, 2021 5:35pm 6.0 % 3-11 [facility] [address] [address] Monocytes (%) (Auto) January 29, 2021 9:57pm 6.5 % 3-11 [facility] [address] 119[address] Monocytes (%) (Auto) March 16, 2021 5:34pm 6.9 % 3-11 MAIN [facility] [address] [address]344 Monocytes (%) (Auto) March 18, 2021 7:56pm 7.2 % 3-[address] [address]272 Monocytes (%) (Auto) March 20, 2021 4:37pm 5.9 % 3-11 [facility] [address] [address] Monocytes (%) (Auto) August 07, 2021 1:30pm 5.9 % 3-11 MA[facility] [address] [address]79 Monocytes (%) (Auto) August 10, 2021 3:14pm 6.6 % 3-[address] [address] Eosinophils (%) (Auto) October 14, 2020 11:38pm 1.1 % 0-3 MA[facility] [address] [place] [address]64 Eosinophils (%) (Auto) January 02, 2021 4:44pm 2.2 % 0-3 [facility] [address] [address] Eosinophils (%) (Auto) January 07, 2021 5:35pm 3.2 % 0-3 [facility] [address] [address] Eosinophils (%) (Auto) January 29, 2021 9:57pm 1.7 % 0-3 [facility] [address] [address] Eosinophils (%) (Auto) March 16, 2021 5:34pm 2.6 % 0-3 MA[facility] [address] [address]65 Eosinophils (%) (Auto) March 18, 2021 7:56pm 3.2 % 0-3 [facility] [address] [address] Eosinophils (%) (Auto) March 20, 2021 4:37pm 2.8 % 0-[address] [address] Eosinophils (%) (Auto) August 07, 2021 1:30pm 1.2 % 0-3 [facility] [address] [address] Eosinophils (%) (Auto) August 10, 2021 3:14pm 2.1 % 0-[address] [address] Basophils (%) (Auto) October 14, 2020 11:38pm 1.3 % 0-[address] [address] Basophils (%) (Auto) January 02, 2021 4:44pm 0.9 % 0-1 [facility] [address] [address] Basophils (%) (Auto) January 07, 2021 5:35pm 1.5 % 0-[address] [address] Basophils (%) (Auto) January 29, 2021 9:57pm 1.2 % 0-[address] [address] Basophils (%) (Auto) March 16, 2021 5:34pm 1.1 % 0-1 [facility] [address] [address]49 Basophils (%) (Auto) March 18, 2021 7:56pm 1.1 % 0-[address] [address]854 Basophils (%) (Auto) March 20, 2021 4:37pm 1.0 % 0-[address] [address] Basophils (%) (Auto) August 07, 2021 1:30pm 0.8 % 0-1 [facility] [address] [address] Basophils (%) (Auto) August 10, 2021 3:14pm 0.6 % 0-1 [facility] [address] [address] Immature Granulocyte % (Auto) October 14, 2020 11:38pm 0.1 % 0-1 [facility] [address] [place] [address]327 Immature Granulocyte % (Auto) January 02, 2021 4:44pm 0.1 % 0-1 [facility] [address] [address] Immature Granulocyte % (Auto) January 07, 2021 5:35pm 0.2 % 0-[address] [address] Immature Granulocyte % (Auto) January 29, 2021 9:57pm 0.3 % 0-[address] [address] Immature Granulocyte % (Auto) March 16, 2021 5:34pm 0.2 % 0-1 MA[facility] [address] 58659 Immature Granulocyte % (Auto) March 18, 2021 7:56pm 0.2 % 0-[address] [address] Immature Granulocyte % (Auto) March 20, 2021 4:37pm 0.2 % 0-[address] [address] Immature Granulocyte % (Auto) August 07, 2021 1:30pm 0.2 % 0-1 MA[facility] [address] [address]41 Immature Granulocyte % (Auto) August 10, 2021 3:14pm 0.2 % 0-[address] [address] Neutrophils # (Auto) October 14, 2020 11:38pm 4.46 1000/mm3 1.4-6.5 [facility] [address] [place] [address]27 Neutrophils # (Auto) January 02, 2021 4:44pm 4.38 1000/mm3 1.4-6.5 MA[facility] [address] [address] Neutrophils # (Auto) January 07, 2021 5:35pm 2.74 1000/mm3 1.4-6.5 MA[facility] [address] [address]68 Neutrophils # (Auto) January 29, 2021 9:57pm 3.37 1000/mm3 1.4-6.5 MA[facility] [address] [address] Neutrophils # (Auto) March 16, 2021 5:34pm 3.82 1000/mm3 1.4-6.5 MA[facility] [address] [address] Neutrophils # (Auto) March 18, 2021 7:56pm 3.04 1000/mm3 1.4-6.5 [facility] [address] [address] Neutrophils # (Auto) March 20, 2021 4:37pm 3.16 1000/mm3 1.4-6.5 [facility] [address] [address] Neutrophils # (Auto) August 07, 2021 1:30pm 3.35 1000/mm3 1.4-6.5 [facility] [address] 24641 Neutrophils # (Auto) August 10, 2021 3:14pm 2.81 1000/mm3 1.4-6.5 [facility] [address] [address] Lymphocytes # (Auto) October 14, 2020 11:38pm 2.15 1000/mm3 1.2-3.4 [facility] [address] [place] [address] Lymphocytes # (Auto) January 02, 2021 4:44pm 1.79 1000/mm3 1.2-3.4 [facility] [address] 6[address] Lymphocytes # (Auto) January 07, 2021 5:35pm 2.01 1000/mm3 1.2-3.4 [facility] [address] [address] Lymphocytes # (Auto) January 29, 2021 9:57pm 1.91 1000/mm3 1.2-3.4 [facility] [address] [address]841 Lymphocytes # (Auto) March 16, 2021 5:34pm 1.63 1000/mm3 1.2-3.4 [facility] [address] 85661 Lymphocytes # (Auto) March 18, 2021 7:56pm 1.60 1000/mm3 1.2-3.4 [facility] [address] 20843 Lymphocytes # (Auto) March 20, 2021 4:37pm 1.29 1000/mm3 1.2-3.4 [facility] [address] 18228 Lymphocytes # (Auto) August 07, 2021 1:30pm 1.20 1000/mm3 1.2-3.4 [facility] [address] 9[address] Lymphocytes # (Auto) August 10, 2021 3:14pm 1.56 1000/mm3 1.2-3.4 [facility] [address] [address] Monocytes # (Auto) October 14, 2020 11:38pm 0.61 1000/mm3 0.0-0.8 [facility] [address] [place] [address] 23893 Monocytes # (Auto) January 02, 2021 4:44pm 0.42 1000/mm3 0.0-0.8 [facility] [address] [address] Monocytes # (Auto) January 07, 2021 5:35pm 0.32 1000/mm3 0.0-0.8 [facility] [address] [address] Monocytes # (Auto) January 29, 2021 9:57pm 0.38 1000/mm3 0.0-0.8 [facility] [address] 7[address] Monocytes # (Auto) March 16, 2021 5:34pm 0.42 1000/mm3 0.0-0.8 [facility] [address] [address]647 Monocytes # (Auto) March 18, 2021 7:56pm 0.38 1000/mm3 0.0-0.8 [facility] [address] [address]359 Monocytes # (Auto) March 20, 2021 4:37pm 0.29 1000/mm3 0.0-0.8 [facility] [address] [address]85 Monocytes # (Auto) August 07, 2021 1:30pm 0.29 1000/mm3 0.0-0.8 [facility] [address] [address] Monocytes # (Auto) August 10, 2021 3:14pm 0.32 1000/mm3 0.0-0.8 [facility] [address] 18645 Eosinophils # (Auto) October 14, 2020 11:38pm 0.08 1000/mm3 0.0-0.7 [facility] [address] [place] [address] Eosinophils # (Auto) January 02, 2021 4:44pm 0.15 1000/mm3 0.0-0.7 [facility] [address] [address]199 Eosinophils # (Auto) January 07, 2021 5:35pm 0.17 1000/mm3 0.0-0.7 [facility] [address] [address] Eosinophils # (Auto) January 29, 2021 9:57pm 0.10 1000/mm3 0.0-0.7 [facility] [address] [address] Eosinophils # (Auto) March 16, 2021 5:34pm 0.16 1000/mm3 0.0-0.7 [facility] [address] [address]45 Eosinophils # (Auto) March 18, 2021 7:56pm 0.17 1000/mm3 0.0-0.7 [facility] [address] [address] Eosinophils # (Auto) March 20, 2021 4:37pm 0.14 1000/mm3 0.0-0.7 [facility] [address] 8[address] Eosinophils # (Auto) August 07, 2021 1:30pm 0.06 1000/mm3 0.0-0.7 [facility] [address] [address]66 Eosinophils # (Auto) August 10, 2021 3:14pm 0.10 1000/mm3 0.0-0.7 [facility] [address] [address] Basophils # (Auto) October 14, 2020 11:38pm 0.10 1000/mm3 0.0-0.1 [facility] [address] [place] [address]80 Basophils # (Auto) January 02, 2021 4:44pm 0.06 1000/mm3 0.0-0.1 [facility] [address] [address] Basophils # (Auto) January 07, 2021 5:35pm 0.08 1000/mm3 0.0-0.1 [facility] [address] [address]27 Basophils # (Auto) January 29, 2021 9:57pm 0.07 1000/mm3 0.0-0.1 [facility] [address] [address] Basophils # (Auto) March 16, 2021 5:34pm 0.07 1000/mm3 0.0-0.1 [facility] [address] [address]802 Basophils # (Auto) March 18, 2021 7:56pm 0.06 1000/mm3 0.0-0.[address] [address] Basophils # (Auto) March 20, 2021 4:37pm 0.05 1000/mm3 0.0-0.1 MA[facility] [address] [address] Basophils # (Auto) August 07, 2021 1:30pm 0.04 1000/mm3 0.0-0.1 [facility] [address] [address] Basophils # (Auto) August 10, 2021 3:14pm 0.03 1000/mm3 0.0-0.1 [facility] [address] [address] Absolute Immature Granulocyte (auto October 14, 2020 11:38pm 0.0 0-1 [facility] [address] [place] [address] Absolute Immature Granulocyte (auto January 02, 2021 4:44pm 0.0 0-1 [facility] [address] [address]898 Absolute Immature Granulocyte (auto January 07, 2021 5:35pm 0.0 0-1 [facility] [address] 9[address] Absolute Immature Granulocyte (auto January 29, 2021 9:57pm 0.0 0-1 [facility] [address] [address]654 Absolute Immature Granulocyte (auto March 16, 2021 5:34pm 0.0 0-1 [facility] [address] [address] Absolute Immature Granulocyte (auto March 18, 2021 7:56pm 0.0 0-1 [facility] [address] [address]604 Absolute Immature Granulocyte (auto March 20, 2021 4:37pm 0.0 0-1 [facility] [address] 8[address]14 Absolute Immature Granulocyte (auto August 07, 2021 1:30pm 0.0 0-1 [facility] [address] [address] Absolute Immature Granulocyte (auto August 10, 2021 3:14pm 0.0 0-1 MA[facility] [address] [address] Differential Method October 14, 2020 11:38pm Automated [facility] [address] [place] [address]11 Differential Method January 02, 2021 4:44pm Automated [facility] [address] [address] Differential Method January 07, 2021 5:35pm Automated MAIN LAB [address] [address] Differential Method January 29, 2021 9:57pm Automated MAIN LAB [address] [address] Differential Method March 16, 2021 5:34pm Automated MAIN LAB [address] [address] Differential Method March 18, 2021 7:56pm Automated MAIN LAB [address] [address] Differential Method March 20, 2021 4:37pm Automated MAIN LAB [address] [address] Differential Method August 07, 2021 1:30pm Automated MAIN LAB [address] [address] Differential Method August 10, 2021 3:14pm Automated MAIN LAB [address] [address] Differential Pathologist's Review October 14, 2020 11:38pm See comment No comparison data on file at [facility]. Microcytic hypochromic anemia, consistent with iron deficiency.Brice martin reviewed by pathologist for quality specialist.Hair Mello MD10/15/20 MAIN LAB [address] [place] [address] Prothrombin Time October 14, 2020 11:38pm 10.8 SECONDS 9.6-11.2 MAIN LAB [address] [place] [address] Prothromb Time International Ratio October 14, 2020 11:38pm 1.1 2.0-3.0 INR value valid only on patients on stabilized warfarin therapy. The recommended therapeutic range for warfarin (Coumadin) for most clinical indications is an INR of 2.0-3.0. An INR of 2.5-3.5 is recommended for patients with mechanical heart valves. MAIN LAB [address] [place] [address] Activated Partial Thromboplast Time October 14, 2020 11:38pm 26.1 SECONDS 21.6-36.0 A target of 1.5-2.5 times the mean of the normal reference range is considered therapeutic. NOTE: APTT must NOT be used to monitor LMWH therapy. Contact [facility] for monitoring information. MAIN LAB [address] [place] [address] Urine Color January 02, 2021 6:04pm Lauren MAIN LAB [address] [address] Urine Clarity January 02, 2021 6:04pm very cloudy MAIN LAB [address] [address] Urine pH January 02, 2021 6:04pm 6.0 MAIN LAB [address] [address] Urine Specific Occidental January 02, 2021 6:04pm 1.015 MAIN LAB [address] [address] Urine Protein January 02, 2021 6:04pm 100 (2+) mg/dL NEGATIVE MAIN LAB [address] [address] Urine Glucose (UA) January 02, 2021 6:04pm Normal mg/dL NORMAL MAIN LAB [address] [address] Urine Ketones January 02, 2021 6:04pm Negative NEGATIVE MAIN LAB [address] [address] Urine Nitrite January 02, 2021 6:04pm Negative Negative MAIN LAB [address] [address] Urine Bilirubin January 02, 2021 6:04pm Negative mg/dL NEGATIVE MAIN LAB [address] [address] Urine Urobilinogen January 02, 2021 6:04pm Normal mg/dL NORMAL MAIN LAB [address] [address] Urine Leukocyte Esterase January 02, 2021 6:04pm Moderate (2+) WBC/uL NEGATIVE MAIN LAB [address] [address] Urine Blood January 02, 2021 6:04pm Large (3+) JOEL/uL NEGATIVE MAIN LAB [address] [address] Urine RBC October 14, 2020 11:45pm 10-20 /hpf MAIN LAB [address] [place] [address]76 Urine RBC January 02, 2021 6:04pm Tntc /hpf MAIN LAB [address] [address] Urine RBC March 16, 2021 6:40pm Tntc /hpf MAIN LAB [address] [address] Urine RBC June 27, 2021 4:10pm 0-2 /hpf MAIN LAB [address] [address] Urine WBC October 14, 2020 11:45pm 0-2 /hpf MAIN LAB [address] [place] [address] Urine WBC January 02, 2021 6:04pm 3-5 /hpf MAIN LAB [address] [address] Urine WBC March 16, 2021 6:40pm See comment /hpf Microscopic field obscured by RBC. MAIN LAB [address] [address] Urine WBC June 27, 2021 4:10pm None seen /hpf MAIN LAB [address] [address] Urine Squamous Epithelial Cells January 02, 2021 6:04pm 1+ /hpf MAIN LAB [address] [address] Urine Squamous Epithelial Cells June 27, 2021 4:10pm 2+ /hpf MAIN LAB [address] [address] Urine Bacteria October 14, 2020 11:45pm 1+ /hpf NONE SEEN MAIN LAB [address] [place] [address] Urine Bacteria January 02, 2021 6:04pm None seen /hpf NONE SEEN MAIN LAB [address] [address] Urine Bacteria March 16, 2021 6:40pm See comment /hpf NONE SEEN Microscopic field obscured by RBC. MAIN LAB [address] [address] Urine Bacteria June 27, 2021 4:10pm 1+ /hpf NONE SEEN MAIN LAB [address] [address] Urine Mucus October 14, 2020 11:45pm Present MAIN LAB [address] [place] [address]64 Urine Mucus June 27, 2021 4:10pm Present MAIN LAB [address] [address] Urine Culture Done October 14, 2020 11:45pm No CULTURE NOT INDICATED. MAIN LAB [address] [place] [address] Urine Culture Done January 02, 2021 6:04pm Yes URINE SPECIMEN CULTURED MAIN LAB [address] [address] Urine Culture Done March 16, 2021 6:40pm Yes URINE SPECIMEN CULTURED MAIN LAB [address] [address] Urine Culture Done June 27, 2021 4:10pm No CULTURE NOT INDICATED. MAIN LAB [facility] [address] [facility] [address] Urine Test January 02, 2021 6:04pm Negative NEGATIVE MAIN LAB [facility] [address] [facility] [address] Sodium Level October 14, 2020 11:38pm 138 mmol/L 137-145 MAIN LAB [address] [place] [address] Sodium Level January 02, 2021 4:44pm 141 mmol/L 137-145 MAIN LAB [address] [address] Sodium Level January 07, 2021 5:35pm 140 mmol/L 137-145 MAIN LAB [address] [address] Sodium Level January 29, 2021 9:57pm 137 mmol/L 137-145 MAIN LAB [address] [address] Sodium Level March 16, 2021 5:34pm 137 mmol/L 137-145 MAIN LAB [address] [address] Sodium Level March 18, 2021 7:56pm 141 mmol/L 137-145 MAIN LAB [address] [address] Sodium Level March 20, 2021 5:04pm 140 mmol/L 137-145 MAIN LAB [address] [address] Sodium Level August 07, 2021 1:30pm 141 mmol/L 137-145 MAIN LAB [address] [address] Sodium Level August 10, 2021 3:14pm 140 mmol/L 137-145 MAIN LAB [facility] [address] [facility] [address] Potassium Level October 14, 2020 11:38pm 3.8 mmol/L 3.6-5.0 MAIN LAB [address] [place] [address] Potassium Level January 02, 2021 4:44pm 3.9 mmol/L 3.6-5.0 MAIN LAB [facility] [address] [facility] [address] Potassium Level January 07, 2021 5:35pm 3.7 mmol/L 3.6-5.0 MAIN LAB [facility] [address] [facility] [address] Potassium Level January 29, 2021 9:57pm 3.5 mmol/L 3.6-5.0 MAIN LAB [facility] [address] [facility] [address] Potassium Level March 16, 2021 5:34pm 4.0 mmol/L 3.6-5.0 MAIN LAB [facility] [address] [facility] [address] Potassium Level March 18, 2021 7:56pm 3.4 mmol/L 3.6-5.0 MAIN LAB [address] [address] Potassium Level March 20, 2021 5:04pm 3.8 mmol/L 3.6-5.0 MAIN LAB [address] [address] Potassium Level August 07, 2021 1:30pm 4.3 mmol/L 3.6-5.0 MAIN LAB [address] [address] Potassium Level August 10, 2021 3:14pm 4.0 mmol/L 3.6-5.0 MAIN LAB [address] [address] Chloride Level October 14, 2020 11:38pm 100 mmol/L 98-107 MAIN LAB [address] [place] [address] Chloride Level January 02, 2021 4:44pm 104 mmol/L 98-107 MAIN LAB [address] [address] Chloride Level January 07, 2021 5:35pm 103 mmol/L 98-107 MAIN LAB [address] [address] Chloride Level January 29, 2021 9:57pm 99 mmol/L 98-107 MAIN LAB [address] [address] Chloride Level March 16, 2021 5:34pm 102 mmol/L 98-107 MAIN LAB [address] [address] Chloride Level March 18, 2021 7:56pm 102 mmol/L 98-107 MAIN LAB [address] [address] Chloride Level March 20, 2021 5:04pm 103 mmol/L 98-107 MAIN LAB [facility] [address] [facility] [address] Chloride Level August 07, 2021 1:30pm 105 mmol/L 98-107 MAIN LAB [facility] [address] [facility] [address] Chloride Level August 10, 2021 3:14pm 103 mmol/L 98-107 MAIN LAB [address] [address] Carbon Dioxide Level October 14, 2020 11:38pm 25 mmol/L 22-30 MAIN LAB [address] [place] [address] Carbon Dioxide Level January 02, 2021 4:44pm 26 mmol/L 22-30 MAIN LAB [address] [address] Carbon Dioxide Level January 07, 2021 5:35pm 27 mmol/L 22-30 MAIN LAB [address] [address] Carbon Dioxide Level January 29, 2021 9:57pm 27 mmol/L 22-30 MAIN LAB [address] [address] Carbon Dioxide Level March 16, 2021 5:34pm 28 mmol/L 22-30 MAIN LAB [address] [address] Carbon Dioxide Level March 18, 2021 7:56pm 29 mmol/L 22-30 MAIN LAB [address] [address] Carbon Dioxide Level March 20, 2021 5:04pm 27 mmol/L 22-30 MAIN LAB [address] [address] Carbon Dioxide Level August 07, 2021 1:30pm 24 mmol/L 22-30 MAIN LAB [address] [address] Carbon Dioxide Level August 10, 2021 3:14pm 26 mmol/L 22-30 MAIN LAB [address] [address] Anion Gap October 14, 2020 11:38pm 13 7-16 MAIN LAB [address] [place] [address] Anion Gap January 02, 2021 4:44pm 11 7-16 MAIN LAB [address] [place] [address] Anion Gap January 07, 2021 5:35pm 10 7-16 MAIN LAB [facility] [address] [facility] [address] Anion Gap January 29, 2021 9:57pm 11 7-16 MAIN LAB [facility] [address] [facility] [address] Anion Gap March 16, 2021 5:34pm 7 -16 MAIN LAB [facility] [address] [facility] [address] Anion Gap March 18, 2021 7:56pm 10 -16 MAIN LAB [address] [address] Anion Gap March 20, 2021 5:04pm 10 - MAIN LAB [address] [address] Anion Gap August 07, 2021 1:30pm 12 - MAIN LAB [address] [address] Anion Gap August 10, 2021 3:14pm 11 - MAIN LAB [address] [address] Blood Urea Nitrogen October 14, 2020 11:38pm 15 mg/dL 7- MAIN LAB [address] [place] [address] Blood Urea Nitrogen January 02, 2021 4:44pm 11 mg/dL - MAIN LAB [address] [address] Blood Urea Nitrogen January 07, 2021 5:35pm 13 mg/dL 7-17 MAIN LAB [facility] [address] [facility] [address] Blood Urea Nitrogen January 29, 2021 9:57pm 13 mg/dL 7-17 MAIN LAB [address] [address] Blood Urea Nitrogen March 16, 2021 5:34pm 10 mg/dL 7- MAIN LAB [address] [address] Blood Urea Nitrogen March 18, 2021 7:56pm 10 mg/dL 7- MAIN LAB [address] [address] Blood Urea Nitrogen March 20, 2021 5:04pm 5 mg/dL 7-17 MAIN LAB [facility] [address] [facility] [address] Blood Urea Nitrogen August 07, 2021 1:30pm 14 mg/dL 7 MAIN LAB [facility] [address] [facility] [address] Blood Urea Nitrogen August 10, 2021 3:14pm 7 mg/dL - MAIN LAB [address] [address] Creatinine October 14, 2020 11:38pm 0.76 mg/dL 0.52-1.04 MAIN LAB [address] [place] [address] Creatinine January 02, 2021 4:44pm 0.76 mg/dL 0.52-1.04 MAIN LAB [address] [address] Creatinine January 07, 2021 5:35pm 0.79 mg/dL 0.52-1.04 MAIN LAB [address] [address] Creatinine January 29, 2021 9:57pm 0.84 mg/dL 0.52-1.04 MAIN LAB [address] [address] Creatinine March 16, 2021 5:34pm 0.62 mg/dL 0.52-1.04 MAIN LAB [address] [address] Creatinine March 18, 2021 7:56pm 0.66 mg/dL 0.52-1.04 MAIN LAB [address] [address] Creatinine March 20, 2021 5:04pm 0.59 mg/dL 0.52-1.04 MAIN LAB [address] [address] Creatinine August 07, 2021 1:30pm 0.65 mg/dL 0.52-1.04 MAIN LAB [address] [address] Creatinine August 10, 2021 3:14pm 0.60 mg/dL 0.52-1.04 MAIN LAB [address] [address] Glomerular Filtration Rate Calc October 14, 2020 11:38pm > 60 mL/min >60.0 MAIN LAB [address] [place] [address]698 Glomerular Filtration Rate Calc January 02, 2021 4:44pm > 60 mL/min >60.0 MAIN LAB [address] [address] Glomerular Filtration Rate Calc January 07, 2021 5:35pm > 60 mL/min >60.0 MAIN LAB [address] [address] Glomerular Filtration Rate Calc January 29, 2021 9:57pm > 60 mL/min >60.0 MAIN LAB [address] [address] Glomerular Filtration Rate Calc March 16, 2021 5:34pm > 60 mL/min >60.0 MAIN LAB [address] [address] Glomerular Filtration Rate Calc March 18, 2021 7:56pm > 60 mL/min >60.0 MAIN LAB [address] [address] Glomerular Filtration Rate Calc March 20, 2021 5:04pm > 60 mL/min >60.0 MAIN LAB [address] [address] Glomerular Filtration Rate Calc August 07, 2021 1:30pm > 60 mL/min >60.0 MAIN LAB [address] [address] Glomerular Filtration Rate Calc August 10, 2021 3:14pm > 60 mL/min >60.0 MAIN LAB [address] [address] Glucose Level October 14, 2020 11:38pm 88 mg/dL 70-100 MAIN LAB [address] [place] [address]268 Glucose Level January 02, 2021 4:44pm 88 mg/dL 70-100 MAIN LAB [address] [address] Glucose Level January 07, 2021 5:35pm 105 mg/dL 70-100 MAIN LAB [address] [address] Glucose Level January 29, 2021 9:57pm 92 mg/dL 70-100 MAIN LAB [address] [address] Glucose Level March 16, 2021 5:34pm 90 mg/dL 70-100 MAIN LAB [facility] [address] [facility] [address] Glucose Level March 18, 2021 7:56pm 84 mg/dL 70-100 MAIN LAB [facility] [address] [facility] [address] Glucose Level March 20, 2021 5:04pm 91 mg/dL 70-100 MAIN LAB [address] [address] Glucose Level August 07, 2021 1:30pm 100 mg/dL 70-100 MAIN LAB [address] [address] Glucose Level August 10, 2021 3:14pm 85 mg/dL 70-100 MAIN LAB [address] [address] Calcium Level October 14, 2020 11:38pm 9.3 mg/dL 8.4-10.2 MAIN LAB [address] [place] [address]25 Calcium Level January 02, 2021 4:44pm 9.3 mg/dL 8.4-10.2 MAIN LAB [address] [address] Calcium Level January 07, 2021 5:35pm 9.6 mg/dL 8.4-10.2 MAIN LAB [address] 7[address] Calcium Level January 29, 2021 9:57pm 9.8 mg/dL 8.4-10.2 MAIN LAB [address] [address] Calcium Level March 16, 2021 5:34pm 9.5 mg/dL 8.4-10.2 MAIN LAB [address] [address]389 Calcium Level March 18, 2021 7:56pm 9.3 mg/dL 8.4-10.2 MAIN LAB [address] [address] Calcium Level March 20, 2021 5:04pm 9.4 mg/dL 8.4-10.2 MAIN LAB [address] [address] Calcium Level August 07, 2021 1:30pm 9.8 mg/dL 8.4-10.2 MAIN LAB [address] [address]5555 Calcium Level August 10, 2021 3:14pm 9.2 mg/dL 8.4-10.2 MAIN LAB [address] [address] Calcium Adjusted for Albumin October 14, 2020 11:38pm 9.2 mg/dL 8.4-10.2 MAIN LAB [address] [place] [address]62 Calcium Adjusted for Albumin January 02, 2021 4:44pm 8.8 mg/dL 8.4-10.2 MAIN LAB [address] [address] Calcium Adjusted for Albumin January 07, 2021 5:35pm 9.3 mg/dL 8.4-10.2 MAIN LAB [address] [address] Calcium Adjusted for Albumin March 16, 2021 5:34pm 9.4 mg/dL 8.4-10.2 MAIN LAB [address] [address] Calcium Adjusted for Albumin March 18, 2021 7:56pm 9.1 mg/dL 8.4-10.2 MAIN LAB [address] [address] Calcium Adjusted for Albumin August 07, 2021 1:30pm 9.2 mg/dL 8.4-10.2 MAIN LAB [address] [address] Iron Level October 14, 2020 11:38pm 36 ug/dL 37-170 MAIN LAB [address] [place] [address]30 Total Bilirubin October 14, 2020 11:38pm 0.3 mg/dL 0.2-1.3 MAIN LAB [address] [place] [address]244 Total Bilirubin January 02, 2021 4:44pm 0.4 mg/dL 0.2-1.3 MAIN LAB [address] [address] Total Bilirubin January 07, 2021 5:35pm 0.4 mg/dL 0.2-1.3 MAIN LAB [address] 78520 Total Bilirubin March 16, 2021 5:34pm 0.4 mg/dL 0.2-1.3 MAIN LAB [address] [address] Total Bilirubin March 18, 2021 7:56pm 0.4 mg/dL 0.2-1.3 MAIN LAB [address] [address]1990 Total Bilirubin August 07, 2021 1:30pm 0.6 mg/dL 0.2-1.3 MAIN LAB [address] [address] Aspartate Amino Transf (AST/SGOT) October 14, 2020 11:38pm 55 U/L 14-36 MAIN LAB [address] [place] [address] 32939 Aspartate Amino Transf (AST/SGOT) January 02, 2021 4:44pm 39 U/L 14-36 MAIN LAB [address] [address] Aspartate Amino Transf (AST/SGOT) January 07, 2021 5:35pm 38 U/L 14-36 MAIN LAB [address] [address]358 Aspartate Amino Transf (AST/SGOT) March 16, 2021 5:34pm 36 U/L 14-36 MAIN LAB [address] [address] Aspartate Amino Transf (AST/SGOT) March 18, 2021 7:56pm 37 U/L 14-36 MAIN LAB [address] [address] Aspartate Amino Transf (AST/SGOT) August 07, 2021 1:30pm 48 U/L 14-36 MAIN LAB [address] [address] Alanine Aminotransferase (ALT/SGPT) October 14, 2020 11:38pm 41 U/L <35 As of 09/13/19, the Reference Range for ALT/SGPT for adult patients has been updated. The Reference Range for ALT/SGPT has not been established for patients <18 years of age. MAIN LAB [address] [place] [address] Alanine Aminotransferase (ALT/SGPT) January 02, 2021 4:44pm 21 U/L <35 As of 09/13/19, the Reference Range for ALT/SGPT for adult patients has been updated. The Reference Range for ALT/SGPT has not been established for patients <18 years of age. MAIN LAB [address] [address] Alanine Aminotransferase (ALT/SGPT) January 07, 2021 5:35pm 23 U/L <35 As of 09/13/19, the Reference Range for ALT/SGPT for adult patients has been updated. The Reference Range for ALT/SGPT has not been established for patients <18 years of age. MAIN LAB [address] [address] Alanine Aminotransferase (ALT/SGPT) March 16, 2021 5:34pm 17 U/L <35 As of 09/13/19, the Reference Range for ALT/SGPT for adult patients has been updated. The Reference Range for ALT/SGPT has not been established for patients <18 years of age. MAIN LAB [address] [address] Alanine Aminotransferase (ALT/SGPT) March 18, 2021 7:56pm 19 U/L <35 As of 09/13/19, the Reference Range for ALT/SGPT for adult patients has been updated. The Reference Range for ALT/SGPT has not been established for patients <18 years of age. MAIN LAB [address] [address] Alanine Aminotransferase (ALT/SGPT) August 07, 2021 1:30pm 36 U/L <35 As of 09/13/19, the Reference Range for ALT/SGPT for adult patients has been updated. The Reference Range for ALT/SGPT has not been established for patients <18 years of age. MAIN LAB [address] [address] Lactic Acid Level March 18, 2021 7:56pm 1.0 mmol/L 0.7-2.1 MAIN LAB [address] [address] Total Protein October 14, 2020 11:38pm 7.4 g/dL 6.3-8.2 MAIN LAB [address] [place] [address]16 Total Protein January 02, 2021 4:44pm 7.9 g/dL 6.3-8.2 MAIN LAB [address] [address] Total Protein January 07, 2021 5:35pm 7.7 g/dL 6.3-8.2 MAIN LAB [address] [address] Total Protein March 16, 2021 5:34pm 7.2 g/dL 6.3-8.2 MAIN LAB [address] [address]27 Total Protein March 18, 2021 7:56pm 7.6 g/dL 6.3-8.2 MAIN LAB [address] 72627 Total Protein August 07, 2021 1:30pm 8.3 g/dL 6.3-8.2 MAIN LAB [address] [address] Albumin October 14, 2020 11:38pm 4.4 g/dL 3.5-5.0 MAIN LAB [address] [place] [address] 32385 Albumin January 02, 2021 4:44pm 4.9 g/dL 3.5-5.0 MAIN LAB [address] [address] Albumin January 07, 2021 5:35pm 4.7 g/dL 3.5-5.0 MAIN LAB [address] 73336 Albumin March 16, 2021 5:34pm 4.4 g/dL 3.5-5.0 MAIN LAB [address] [address]166 Albumin March 18, 2021 7:56pm 4.6 g/dL 3.5-5.0 MAIN LAB [address] 18188 Albumin August 07, 2021 1:30pm 5.0 g/dL 3.5-5.0 MAIN LAB [address] [address] Alkaline Phosphatase October 14, 2020 11:38pm 55 U/L 38-126 MAIN LAB [address] [place] [address]11 Alkaline Phosphatase January 02, 2021 4:44pm 58 U/L 38-126 MAIN LAB [address] [address] Alkaline Phosphatase January 07, 2021 5:35pm 58 U/L 38-126 MAIN LAB [address] [address]67 Alkaline Phosphatase March 16, 2021 5:34pm 45 U/L 38-126 MAIN LAB [address] 889[address] Alkaline Phosphatase March 18, 2021 7:56pm 47 U/L 38-126 MAIN LAB [address] 35780 Alkaline Phosphatase August 07, 2021 1:30pm 58 U/L 38-126 MAIN LAB [address] [address]68 Lipase October 14, 2020 11:38pm 43 U/L 23-300 MAIN LAB [address] [place] [address] 76586 Lipase August 07, 2021 1:30pm 64 U/L 23-300 MAIN LAB [address] [address] Ferritin October 14, 2020 11:38pm 4.43 ng/mL 10-291 The results of this assay can be falsely decreased in patients who consume Biotin. MAIN LAB [address] [place] [address]33 Microbiology Results Procedure Source Result Collection Date/Time Result Date/Time Result Comment Performing Site Blood Culture Blood, Left Antecubital NO GROWTH AFTER 5 DAYS March 18, 2021 9:10pm March 24, 2021 7:15am MAIN LAB [address] [address] Urine Culture Ur,Clean Catch January 02, 2021 6:40pm January 04, 2021 8:36am MAIN LAB [address] [address] Urine Culture Ur,Clean Catch March 16, 2021 7:39pm March 18, 2021 10:45am MAIN LAB [address] [address] Gram Stain Umbilicus March 16, 2021 10:27am March 17, 2021 8:17am MAIN LAB [address] [address] Routine Culture Umbilicus Staphylococcus Aureus-Mrsa March 16, 2021 10:27am March 20, 2021 8:34am MAIN LAB [address] [address] Diagnostic Imaging Reports Report Dictated Date/Time Dictated By Status Radiology Report January 02, 2021 5:42pm Megan Balderas MD completed [facility] CAT SCAN REPORT PATIENT NAME: [...] By : Megan Morales MD dd: 01/02/21 1742 01/02/21 1817 Report Dictated Date/Time Dictated By Status Radiology Report March 16, 2021 8:09pm Tiburcio Heaton MD completed [facility] CAT SCAN REPORT PATIENT NAME: [...] had a laporoscopy compelted on 03/05/21, at [facility] in [place]. States she is having sharp cramping stabbing [...] 07, 2021 4:03pm Yuli Jiang DO completed [facility] CAT SCAN REPORT PATIENT NAME: [...] 27, 2021 3:33pm Respiratory rate 18 /min -June 272021 3:33pm Oxygen saturation by Pulse oximetry [...] Diastolic 61 mm[Hg] 50-85 August 26 5:37pm Advance Directives Advance Directive Response Recorded Date/ Time Does patient have an Advanced Directive? No October 14, 2020 11:22pm Do we have a copy on file here at [facility]? No October 14, 2020 11:22pm Pt has a Living Will? No October 14, 2020 11:22pm Do we have a copy on file here at [facility]? No October 14, 2020 11:22pm Pt has a Power of Payroll Specialist? No October 14, 2020 11:22pm Do we have a copy on file here at [facility]? No October 14, 2020 11:22pm Insurance Providers Guarantor EDUARDO PAYAN Address [address] [address] Contact Info. Home Phone: Payer Policy Id Coverage Id Subscriber's Name Subscriber Id Effective Date Expiration Date [facility] [id number] EDUARDO PAYAN [id number] 000 SELF PAY Self N/A Encounters Encounter [...] 2021 6:55pm null Departed Emergency [facility] January 21, 2021 2:24pm January 21, 2021 4:51pm null Departed Emergency [facility] January 29, 2021 8:55pm January 29, 2021 11:08pm null Departed Emergency [facility] March 16, 2021 3:28pm March 16, 2021 10:43pm null Departed Emergency [facility] March 18, 2021 6:11pm March 18, 2021 9:19pm null Departed Emergency [facility] March 20, 2021 2:33pm March 20, 2021 6:25pm null Departed Emergency [facility] March 27, 2021 12:49pm March 27, 2021 3:32pm null Departed Emergency [facility] June 27, 2021 3:30pm June 27, 2021 5:01pm null Departed Emergency [facility] August 07, 2021 11:58am August 07, 2021 5:15pm null Departed Emergency [facility] August 10, 2021 2:19pm August 10, 2021 5:11pm null Departed Emergency [facility] August 26, 2021 5:22pm August 26, 2021 7:15pm null Functional Status Observation Response Date Recorded Living Situation Home August 26 7:15pm With Family August 26, 2021 7:15pm Mental Status Observation Response Date Recorded Comprehension [...] Date Provider Provider Contact Information Provider Address [facility] Work Phone: [facility] [address] [facility] [address] [place] Emely holloway MD Work Phone: [facility] [employer] [address] [facility] [address] Chavez and will see for [facility] Work Phone: [address] [facility] [phone] No Pcp Mahad Chavez MD Work Phone: [facility] [employer] [address] [facility] [address] No Pcp No Pcp No Pcp [facility] Gynecology and Oncology Work Phone: [address] [place] [address] Level 4 [facility] [address] [facility] Work Phone: [address] [facility] [phone] No Pcp No Pcp No Pcp Future [...] Constipation, Adult (DC) Diarrhea and Travelers' Diar rodriguze, Adult (DC) Nausea and Vomiting, Adult (DC) Pelvic Pain (DC) Endometriosis (DC) Hospital Discharge Instructions Additional Instructions Return to the ED immediately for any concerning symptoms.
--- OUTSIDE RECORDS SUMMARY | 2022-11-20 17:46 | XMS_ITS | Continuity of Care Document ---
Author Name Unknown Address [address] [place] [address] Phone [facility] Address [address] [place] [address] Phone Support Name Relationship Address Phone JHONY, BO Friend or Other Unknown KIRA Garcia Emergency Provider [facility] [address] MD Konstantin Villaseñor Emergency Provider [facility] [place] [address] Elier Luther Emergency Provider [facility] [place] [address] MARIELLA Thomson Emergency Provider [facility] [place] [address] MD Tae Zapata Emergency Provider [facility] [place] [address] MARIELLA Ledezma Emergency Provider [facility] [place] [place] [address] MARIELLA Gomez Emergency Provider [facility] [place] [address] MD Yolanda Dial Emergency Provider [facility] [place] [address] MD Praveen Harden Emergency Provider [facility] [place] [address] Care Team Providers 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 Name Role Phone PCP, of Choice Primary Care Provider Unavailabl e Out of Town, Provider Primary Care Provider Unav ailable Chief Complaint and Reason for Visit Chief Complaint LEFT FLANK PAIN ORAL INFECTION RECTAL BLEEDING abdominal pain OVARIAN CYST POST OP CONCERN ABDOMINAL PAIN HEAVY VAG BLEEDING FALL/ BACK COMPLAINT PELVIC PAIN Allergies, Adverse Reactions, Alerts Allergen Type Severity Reaction Last Updated Verified Status droperidol Allergy anaphylactic shock Februa 2021 2:37pm Yes Active haloperidol Allergy rash January 2:08pm Yes Active ibuprofen Allergy June 27, 2021 2:37pm Yes Active ketorolac Allergy anaphylaxis December 29, 2020 3:35pm Yes Active latex Allergy rash December 29, 2020 3:35pm Yes Active Penicillins Allergy hives December 29, 2020 3:35pm Yes Active prochlorperazine Allergy hives December 132020 3:35pm Yes Active Social History Smoking Status Status Start Date End Date Date of Observa tion Never smoked tobacco (finding) June 27, 2021 2:44pm Observation Status Observation Response Date of Response Alcohol Use Yes June 27 2:44pm alcohol intake frequency a few times a [place] 2021 2:44pm Alcohol type hard liquor June 27 2:44pm Substance/Street Drug Use Yes 2021 2:44pm substance use type marijuana June 2:44pm Smoking Status Never smoker June 27 022 2:44pm Additional Data Assigned Sex Female Problems Active [...] 100 MG PO DAILY October 14, 2020 10:02pm Docusate Sodium Active 50 MG PO TWICE A DAY October 14, 2020 10:02pm Trazodone Active 100 MG PO BEDTIME October 14, 2020 10:02pm Hydroxyzine Hcl Active 100 MG PO BEDTIME October 14, 2020 10:02pm Ferrous Sulfate Discontin ued 325 MG PO DAILY October 15, 2020 1:57pm Novemb er 2020 4:42pm Hydrocodone- Acetaminophe n Discontin ued TABLET December 29, 2020 3:35pm January 07, 2021 4:04pm Cefdinir Discontin ued 300 MG PO TWICE A DAY er 2020 3:03pm Septem rinku 2020 8:07pm Tramadol Discontin ued 50 MG PO Q8H 10 er 2020 3:44pm Septem rinku 2020 8:06pm Montelukast Active 10 MG PO DAILY Febru ar y 2021 2:37pm Omeprazole Active 20 MG PO DAILY ua r 2021 2:37pm Cephalexin Active 500 MG PO FOUR TIME S DAILY r 2021 3:42pm Tramadol (Ultram) 50 mg Tablet Active 50 MG PO Q6H 7 r 2021 3:44pm Gabapentin Active 200 MG PO DAILY January 02, 2021 4:12pm Hydrocodone- Acetaminophe n Discontin ued 1 TAB PO Q6H January 02, 2021 5:26pm January 07, 2021 4:04pm Ondansetron Active 4 MG PO Q6H 2020 5:26pm Famotidine-C a Carb-Mag Hydrox (Pepcid Complete) 10-800-165 mg tablet,chewa ble Discontin ued 1 TAB PO DAILY January 08, 2021 12:50am Septem 2020 8:07pm Dicyclomine Discontin ued 10 MG PO .q6 prn January 08, 2021 12:51am Septem rinku 2020 2:08pm Oxycodone Discontin ued MG CAPSULE Novembe r 2020 2:59pm Februa ry 2021 2:37pm Fluticasone Propion-Salm eterol (Advair Hfa) 115-21 mcg/actuatio n HFA aerosol inhaler Active INH Novembe r 2020 2:59pm Ondansetron Hcl (Zofran) 4 mg tablet Discontin ued 4 MG PO Q8H 12 4 Novembe r 2020 4:45pm Novemb er 2020 12:01a m Sulfamethoxa zole-Trimeth oprim (Bactrim Ds) 800-160 mg tablet Discontin ued 1 TAB PO TWICE A DAY 14 r 2020 6:52pm Novemb er 2020 12:25p m Procedures Procedure Date Performed Status ED US Abdominal Limited March 27, 2021 1:[address] Abd Pel w/ Contrast March 16, 2021 3:09pm completed Gram Stain March 16, 2021 completed Routine Culture March 16, 2021 completed Urine Culture March 16, [address] Abd Pel w/ Contrast January 02, 2021 3:51pm completed Urine Culture January 02, 2021 completed Blood Culture March 18, 2021 completed Relevant Diagnostic Tests and/or Laboratory Data Laboratory Results Test Date/Time Result Interpretation Reference Range Result Comment Performing Site White Blood Count October 14, 2020 10:38pm 7.41 1000/mm3 4.8-10.8 [facility] [address] [place] [address] White Blood Count January 02, 2021 3:44pm 6.81 1000/mm3 4.8-10.8 MA[facility] [address] [address] White Blood Count January 07, 2021 4:35pm 5.33 1000/mm3 4.8-10.8 MA[facility] [address] [address] White Blood Count January 29, 2021 8:57pm 5.85 1000/mm3 4.8-10.8 MA[facility] [address] [address] White Blood Count March 16, 2021 4:34pm 6.11 1000/mm3 4.8-10.8 MA[facility] [address] [address] White Blood Count March 18, 2021 6:56pm 5.26 1000/mm3 4.8-10.8 MA[facility] [address] [address] White Blood Count March 20, 2021 3:37pm 4.94 1000/mm3 4.8-10.8 MA[facility] [address] [address] Red Blood Count October 14, 2020 10:38pm 4.44 M/mm3 4.20-5.40 MA[facility] [address] [place] [address]007 Red Blood Count January 02, 2021 3:44pm 4.67 M/mm3 4.20-5.40 MA[facility] [address] [address] Red Blood Count January 07, 2021 4:35pm 4.85 M/mm3 4.20-5.40 MA[facility] [address] [address] Red Blood Count January 29, 2021 8:57pm 4.53 M/mm3 4.20-5.40 MA[facility] [address] [address] Red Blood Count March 16, 2021 4:34pm 4.26 M/mm3 4.20-5.40 MA[facility] [address] [address] Red Blood Count March 18, 2021 6:56pm 4.17 M/mm3 4.20-5.40 MA[facility] [address] [address]696 Red Blood Count March 20, 2021 3:37pm 4.14 M/mm3 4.20-5.40 MA[facility] [address] [address] Hemoglobin October 14, 2020 10:38pm 9.2 g/dL 12.0-16.0 MA[facility] [address] [place] [address]316 Hemoglobin January 02, 2021 3:44pm 10.4 g/dL 12.0-16.0 MA[facility] [address] [address] Hemoglobin January 07, 2021 4:35pm 10.8 g/dL 12.0-16.0 MA[facility] [address] [address] Hemoglobin January 29, 2021 8:57pm 10.4 g/dL 12.0-16.0 MA[facility] [address] [address] Hemoglobin March 16, 2021 4:34pm 9.9 g/dL 12.0-16.0 MA[facility] [address] [address] Hemoglobin March 18, 2021 6:56pm 9.9 g/dL 12.0-16.0 MAIN LAB [facility] [address] [facility] [address] Hemoglobin March 20, 2021 3:37pm 9.8 g/dL 12.0-16.0 MAIN LAB [facility] [address] [facility] [address] Hematocrit October 14, 2020 10:38pm 30.6 % 37-47 MA[facility] [address] [facility] [address] Hematocrit January 02, 2021 3:44pm 35.2 % 37-47 MA[facility] [address] [address] Hematocrit January 07, 2021 4:35pm 36.3 % 37-47 MA[facility] [address] [address] Hematocrit January 29, 2021 8:57pm 33.7 % 37-47 MA[facility] [address] [address] Hematocrit March 16, 2021 4:34pm 33.2 % 37-47 MA[facility] [address] [address] Hematocrit March 18, 2021 6:56pm 32.9 % 37-47 MA[facility] [address] [address] Hematocrit March 20, 2021 3:37pm 32.6 % 37-47 MA[facility] [address] [address] Mean Corpuscular Volume October 14, 2020 10:38pm 68.9 fL 81.0-99.0 [facility] [address] [facility] [address] Mean Corpuscular Volume January 02, 2021 3:44pm 75.4 fL 81.0-99.0 MA[facility] LAB [facility] [address] [address] Mean Corpuscular Volume January 07, 2021 4:35pm 74.8 fL 81.0-99.0 MA[facility] LAB [facility] [address] [facility] [address] Mean Corpuscular Volume January 29, 2021 8:57pm 74.4 fL 81.0-99.0 MAIN LAB [address] [place] [address] Mean Corpuscular Volume March 16, 2021 4:34pm 77.9 fL 81.0-99.0 MA[facility] LAB [facility] [address] [facility] [address] Mean Corpuscular Volume March 18, 2021 6:56pm 78.9 fL 81.0-99.0 MAIN [facility] [address] [address] Mean Corpuscular Volume March 20, 2021 3:37pm 78.7 fL 81.0-99.0 MA[facility] [address] [address] Mean Corpuscular Hemoglobin October 14, 2020 10:38pm 20.7 pg 27-31 MA[facility] [address] [place] [address]004 Mean Corpuscular Hemoglobin January 02, 2021 3:44pm 22.3 pg 27-31 MA[facility] [address] [address] Mean Corpuscular Hemoglobin January 07, 2021 4:35pm 22.3 pg 27-31 MA[facility] [address] [address] Mean Corpuscular Hemoglobin January 29, 2021 8:57pm 23.0 pg 27-31 MA[facility] [address] [address] Mean Corpuscular Hemoglobin March 16, 2021 4:34pm 23.2 pg 27-31 MA[facility] [address] [address] Mean Corpuscular Hemoglobin March 18, 2021 6:56pm 23.7 pg 27-31 MA[facility] [address] [address] Mean Corpuscular Hemoglobin March 20, 2021 3:37pm 23.7 pg 27-31 MA[facility] [address] [address]644 Mean Corpuscular Hemoglobin Concent October 14, 2020 10:38pm 30.1 g/dL 33-37 MA[facility] [address] [place] [address]48 Mean Corpuscular Hemoglobin Concent January 02, 2021 3:44pm 29.5 g/dL 33-37 MAIN LAB [address] [place] [address] Mean Corpuscular Hemoglobin Concent January 07, 2021 4:35pm 29.8 g/dL 33-37 MAIN LAB [facility] [address] [facility] [address] Mean Corpuscular Hemoglobin Concent January 29, 2021 8:57pm 30.9 g/dL 33-37 MAIN LAB [facility] [address] [address] Mean Corpuscular Hemoglobin Concent March 16, 2021 4:34pm 29.8 g/dL 33-37 MAIN [facility] [address] [address] Mean Corpuscular Hemoglobin Concent March 18, 2021 6:56pm 30.1 g/dL 33-37 MAIN [facility] [address] [address] Mean Corpuscular Hemoglobin Concent March 20, 2021 3:37pm 30.1 g/dL 33-37 MA[facility] LAB [address] [address] Red Cell Distribution Width October 14, 2020 10:38pm 16.8 % 11.5-14.5 MA[facility] [address] [place] [address]251 Red Cell Distribution Width January 02, 2021 3:44pm 19.4 % 11.5-14.5 MAIN [facility] [address] [address] Red Cell Distribution Width January 07, 2021 4:35pm 18.6 % 11.5-14.5 MAIN [facility] [address] [address] Red Cell Distribution Width January 29, 2021 8:57pm 17.6 % 11.5-14.5 MAIN [facility] [address] 19881 Red Cell Distribution Width March 16, 2021 4:34pm 16.2 % 11.5-14.5 MA[facility] [address] [address] Red Cell Distribution Width March 18, 2021 6:56pm 16.4 % 11.5-14.5 MAIN LAB [address] [address] Red Cell Distribution Width March 20, 2021 3:37pm 16.5 % 11.5-14.5 MA[facility] [address] [address] Platelet Count October 14, 2020 10:38pm 250 1000/mm3 140-440 MAIN [facility] [address] [place] [address] 66647 Platelet Count January 02, 2021 3:44pm 216 1000/mm3 140-440 MA[facility] [address] [address] Platelet Count January 07, 2021 4:35pm 240 1000/mm3 140-440 MA[facility] [address] [address] Platelet Count January 29, 2021 8:57pm 248 1000/mm3 140-440 MAIN [facility] [address] [address] Platelet Count March 16, 2021 4:34pm 220 1000/mm3 140-440 MAIN [facility] [address] [address] Platelet Count March 18, 2021 6:56pm 212 1000/mm3 140-440 MAIN [facility] [address] [address] Platelet Count March 20, 2021 3:37pm 177 1000/mm3 140-440 MAIN [facility] [address] [address] Mean Platelet Volume October 14, 2020 10:38pm 10.6 fL 7.4-10.4 MA[facility] [address] [place] [address] Mean Platelet Volume January 02, 2021 3:44pm 10.7 fL 7.4-10.4 MA[facility] [address] [address] Mean Platelet Volume January 07, 2021 4:35pm 11.3 fL 7.4-10.4 MA[facility] [address] [address] Mean Platelet Volume January 29, 2021 8:57pm 10.6 fL 7.4-10.4 MA[facility] [address] [address] Mean Platelet Volume March 16, 2021 4:34pm 10.6 fL 7.4-10.4 MA[facility] [address] 7[address]67 Mean Platelet Volume March 18, 2021 6:56pm 10.4 fL 7.4-10.[address] [address] Mean Platelet Volume March 20, 2021 3:37pm 9.9 fL 7.4-10.[address] [address] Neutrophils (%) (Auto) October 14, 2020 10:38pm 60.3 % 40.0-72.[address] [address] Neutrophils (%) (Auto) January 02, 2021 3:44pm 64.3 % 40.0-72.[address] [address] Neutrophils (%) (Auto) January 07, 2021 4:35pm 51.4 % 40.0-72.[address] [address] Neutrophils (%) (Auto) January 29, 2021 8:57pm 57.7 % 40.0-72.[address] [address] Neutrophils (%) (Auto) March 16, 2021 4:34pm 62.5 % 40.0-72.[address] [address]855 Neutrophils (%) (Auto) March 18, 2021 6:56pm 57.9 % 40.0-72.[address] [address] Neutrophils (%) (Auto) March 20, 2021 3:37pm 64.0 % 40.0-72.[address] [address] Lymphocytes (%) (Auto) October 14, 2020 10:38pm 29.0 % 17-[address] [address] Lymphocytes (%) (Auto) January 02, 2021 3:44pm 26.3 % 17-[address] [address] Lymphocytes (%) (Auto) January 07, 2021 4:35pm 37.7 % 17-45 MAIN LAB [address] [address] Lymphocytes (%) (Auto) January 29, 2021 8:57pm 32.6 % 17-45 [facility] [address] [address] Lymphocytes (%) (Auto) March 16, 2021 4:34pm 26.7 % 17- [address] [address] Lymphocytes (%) (Auto) March 18, 2021 6:56pm 30.4 % [address] [address] Lymphocytes (%) (Auto) March 20, 2021 3:37pm 26.1 % 17- [address] [address] Monocytes (%) (Auto) October 14, 2020 10:38pm 8.2 % 3-[address] [address] Monocytes (%) (Auto) January 02, 2021 3:44pm 6.2 % 3-11 [facility] [address] [address] Monocytes (%) (Auto) January 07, 2021 4:35pm 6.0 % 3-11 [facility] [address] [address] Monocytes (%) (Auto) January 29, 2021 8:57pm 6.5 % 3-11 [facility] [address] [address] Monocytes (%) (Auto) March 16, 2021 4:34pm 6.9 % 3-11 [facility] [address] [address] Monocytes (%) (Auto) March 18, 2021 6:56pm 7.2 % 3-11 [facility] [address] [address] Monocytes (%) (Auto) March 20, 2021 3:37pm 5.9 % 3-[address] [address] Eosinophils (%) (Auto) October 14, 2020 10:38pm 1.1 % 0-3 MAIN LAB [address] [place] [address]35 Eosinophils (%) (Auto) January 02, 2021 3:44pm 2.2 % 0-3 MA[facility] [address] [address] Eosinophils (%) (Auto) January 07, 2021 4:35pm 3.2 % 0-3 [facility] [address] [address] Eosinophils (%) (Auto) January 29, 2021 8:57pm 1.7 % 0-3 MA[facility] [address] [address] Eosinophils (%) (Auto) March 16, 2021 4:34pm 2.6 % 0-3 [facility] [address] [address] Eosinophils (%) (Auto) March 18, 2021 6:56pm 3.2 % 0-3 [facility] [address] [address] Eosinophils (%) (Auto) March 20, 2021 3:37pm 2.8 % 0-3 MA[facility] [address] [address] Basophils (%) (Auto) October 14, 2020 10:38pm 1.3 % 0-1 MA[facility] [address] [place] [address] 17104 Basophils (%) (Auto) January 02, 2021 3:44pm 0.9 % 0-1 [facility] [address] [address] Basophils (%) (Auto) January 07, 2021 4:35pm 1.5 % 0-1 MA[facility] [address] [address] Basophils (%) (Auto) January 29, 2021 8:57pm 1.2 % 0-1 [facility] [address] [address] Basophils (%) (Auto) March 16, 2021 4:34pm 1.1 % 0-1 [facility] [address] [address] Basophils (%) (Auto) March 18, 2021 6:56pm 1.1 % 0-1 [facility] [address] [address] Basophils (%) (Auto) March 20, 2021 3:37pm 1.0 % 0-1 [facility] [address] [address] Immature Granulocyte % (Auto) October 14, 2020 10:38pm 0.1 % 0-1 [facility] [address] [place] [address]51 Immature Granulocyte % (Auto) January 02, 2021 3:44pm 0.1 % 0-1 [facility] [address] [address] Immature Granulocyte % (Auto) January 07, 2021 4:35pm 0.2 % 0-1 [facility] [address] [address]252 Immature Granulocyte % (Auto) January 29, 2021 8:57pm 0.3 % 0-1 [facility] [address] [address] Immature Granulocyte % (Auto) March 16, 2021 4:34pm 0.2 % 0-1 [facility] [address] [address] Immature Granulocyte % (Auto) March 18, 2021 6:56pm 0.2 % 0-1 [facility] [address] [address] Immature Granulocyte % (Auto) March 20, 2021 3:37pm 0.2 % 0-1 [facility] [address] [address] Neutrophils # (Auto) October 14, 2020 10:38pm 4.46 1000/mm3 1.4-6.5 [facility] [address] [place] [address] Neutrophils # (Auto) January 02, 2021 3:44pm 4.38 1000/mm3 1.4-6.5 [facility] [address] [address] Neutrophils # (Auto) January 07, 2021 4:35pm 2.74 1000/mm3 1.4-6.5 [facility] [address] [address] Neutrophils # (Auto) January 29, 2021 8:57pm 3.37 1000/mm3 1.4-6.5 [facility] [address] [address] Neutrophils # (Auto) March 16, 2021 4:34pm 3.82 1000/mm3 1.4-6.5 [facility] [address] [address] Neutrophils # (Auto) March 18, 2021 6:56pm 3.04 1000/mm3 1.4-6.5 [facility] [address] 68273 Neutrophils # (Auto) March 20, 2021 3:37pm 3.16 1000/mm3 1.4-6.5 [facility] [address] [address] Lymphocytes # (Auto) October 14, 2020 10:38pm 2.15 1000/mm3 1.2-3.4 [facility] [address] [place] [address]85 Lymphocytes # (Auto) January 02, 2021 3:44pm 1.79 1000/mm3 1.2-3.4 [facility] [address] [address] Lymphocytes # (Auto) January 07, 2021 4:35pm 2.01 1000/mm3 1.2-3.4 [facility] [address] [address] Lymphocytes # (Auto) January 29, 2021 8:57pm 1.91 1000/mm3 1.2-3.4 [facility] [address] [address] Lymphocytes # (Auto) March 16, 2021 4:34pm 1.63 1000/mm3 1.2-3.4 [facility] [address] 8[address] Lymphocytes # (Auto) March 18, 2021 6:56pm 1.60 1000/mm3 1.2-3.4 MA[facility] [address] [address] Lymphocytes # (Auto) March 20, 2021 3:37pm 1.29 1000/mm3 1.2-3.4 [facility] [address] [address] Monocytes # (Auto) October 14, 2020 10:38pm 0.61 1000/mm3 0.0-0.8 [facility] [address] [place] [address] 41199 Monocytes # (Auto) January 02, 2021 3:44pm 0.42 1000/mm3 0.0-0.8 [facility] [address] [address] Monocytes # (Auto) January 07, 2021 4:35pm 0.32 1000/mm3 0.0-0.8 [facility] [address] [address] Monocytes # (Auto) January 29, 2021 8:57pm 0.38 1000/mm3 0.0-0.8 [facility] [address] [address] Monocytes # (Auto) March 16, 2021 4:34pm 0.42 1000/mm3 0.0-0.8 [facility] [address] [address] Monocytes # (Auto) March 18, 2021 6:56pm 0.38 1000/mm3 0.0-0.8 [facility] [address] [address] Monocytes # (Auto) March 20, 2021 3:37pm 0.29 1000/mm3 0.0-0.8 [facility] [address] [address] Eosinophils # (Auto) October 14, 2020 10:38pm 0.08 1000/mm3 0.0-0.7 [facility] [address] [place] [address] Eosinophils # (Auto) January 02, 2021 3:44pm 0.15 1000/mm3 0.0-0.7 [facility] [address] [address] Eosinophils # (Auto) January 07, 2021 4:35pm 0.17 1000/mm3 0.0-0.7 [facility] [address] [address] Eosinophils # (Auto) January 29, 2021 8:57pm 0.10 1000/mm3 0.0-0.7 [facility] [address] [address] Eosinophils # (Auto) March 16, 2021 4:34pm 0.16 1000/mm3 0.0-0.7 [facility] [address] [address] Eosinophils # (Auto) March 18, 2021 6:56pm 0.17 1000/mm3 0.0-0.7 [facility] [address] [address] Eosinophils # (Auto) March 20, 2021 3:37pm 0.14 1000/mm3 0.0-0.7 [facility] [address] [address] Basophils # (Auto) October 14, 2020 10:38pm 0.10 1000/mm3 0.0-0.1 [facility] [address] [place] [address] 52481 Basophils # (Auto) January 02, 2021 3:44pm 0.06 1000/mm3 0.0-0.1 MA[facility] [address] [address] Basophils # (Auto) January 07, 2021 4:35pm 0.08 1000/mm3 0.0-0.1 MA[facility] [address] [address]156 Basophils # (Auto) January 29, 2021 8:57pm 0.07 1000/mm3 0.0-0.1 MA[facility] [address] [address]323 Basophils # (Auto) March 16, 2021 4:34pm 0.07 1000/mm3 0.0-0.1 [facility] [address] [address] Basophils # (Auto) March 18, 2021 6:56pm 0.06 1000/mm3 0.0-0.1 [facility] [address] 17672 Basophils # (Auto) March 20, 2021 3:37pm 0.05 1000/mm3 0.0-0.1 [facility] [address] [address] Absolute Immature Granulocyte (auto October 14, 2020 10:38pm 0.0 0-1 [facility] [address] [place] [address]40 Absolute Immature Granulocyte (auto January 02, 2021 3:44pm 0.0 0-1 [facility] [address] [address]392 Absolute Immature Granulocyte (auto January 07, 2021 4:35pm 0.0 0-1 [facility] [address] [address]70 Absolute Immature Granulocyte (auto January 29, 2021 8:57pm 0.0 0-1 [facility] [address] [address]779 Absolute Immature Granulocyte (auto March 16, 2021 4:34pm 0.0 0-1 [facility] [address] 8[address]40 Absolute Immature Granulocyte (auto March 18, 2021 6:56pm 0.0 0-1 [facility] [address] 33052 Absolute Immature Granulocyte (auto March 20, 2021 3:37pm 0.0 0-1 [facility] [address] 7[address] Differential Method October 14, 2020 10:38pm Automated [facility] [address] [place] [address] 67694 Differential Method January 02, 2021 3:44pm Automated [facility] [address] [address]87 Differential Method January 07, 2021 4:35pm Automated [facility] [address] [address]49 Differential Method January 29, 2021 8:57pm Automated [facility] [address] 17264 Differential Method March 16, 2021 4:34pm Automated [facility] [address] [address]283 Differential Method March 18, 2021 6:56pm Automated [facility] [address] 264[address] Differential Method March 20, 2021 3:37pm Automated MA[facility] [address] [address] Differential Pathologist's Review October 14, 2020 10:38pm See comment No [place] [facility] [place] Microcytic hypochromic anemia, consistent with iron deficiency.S mear reviewed by pathologist for quality review trainer.Hair Mello MD10/15/20 MA[facility] LAB [address] [place] [address]002 Prothrombin Time October 14, 2020 10:38pm 10.8 SECONDS 9.6-11.2 [facility] [address] [place] [address] 54027 Prothromb Time International Ratio October 14, 2020 10:38pm 1.1 2.0-3.0 INR value valid only on patients on stabilized warfarin therapy. The recommended therapeutic range for warfarin (Coumadin) for most clinical indications is an INR of 2.0-3.0. An INR of 2.5-3.5 is recommended for patients with mechanical heart valves. MAIN LAB [address] [place] [address]44 Activated Partial Thromboplast Time October 14, 2020 10:38pm 26.1 SECONDS 21.6-36.0 A target of 1.5-2.5 times the mean of the normal reference range is considered therapeutic. NOTE: APTT must NOT be used to monitor LMWH therapy. Contact [facility] for monitoring information. [facility] [address] [place] [address]4876 Urine Color January 02, 2021 5:04pm Lauren MAIN LAB [address] [address] Urine Clarity January 02, 2021 5:04pm very cloudy [facility] [address] [address] Urine pH January 02, 2021 5:04pm 6.0 MA[facility] [address] [address]390 Urine Specific Ely January 02, 2021 5:04pm 1.015 MAIN LAB [address] 13769 Urine Protein January 02, 2021 5:04pm 100 (2+) mg/dL NEGATIVE [facility] [address] [address]454 Urine Glucose (UA) January 02, 2021 5:04pm Normal mg/dL NORMAL [facility] [address] [address]65 Urine Ketones January 02, 2021 5:04pm Negative NEGATIVE [facility] [address] [address] Urine Nitrite January 02, 2021 5:04pm Negative Negative MA[facility] [address] [address] Urine Bilirubin January 02, 2021 5:04pm Negative mg/dL NEGATIVE [facility] [address] [address]505 Urine Urobilinogen January 02, 2021 5:04pm Normal mg/dL NORMAL MA[facility] [address] [address] Urine Leukocyte Esterase January 02, 2021 5:04pm Moderate (2+) WBC/uL NEGATIVE [facility] [address] [address]234 Urine Blood January 02, 2021 5:04pm Large (3+) JOEL/uL NEGATIVE [facility] [address] 0[address] Urine RBC October 14, 2020 10:45pm 10-20 /hpf MA[facility] [address] [place] [address] 27985 Urine RBC January 02, 2021 5:04pm Tntc /hpf MA[facility] [address] [address] Urine RBC March 16, 2021 5:40pm Tntc /hpf [facility] [address] [address]012 Urine RBC June 27, 2021 3:10pm 0-2 /hpf MA[facility] [address] [address] Urine WBC October 14, 2020 10:45pm 0-2 /hpf [facility] [address] [place] [address] 22641 Urine WBC January 02, 2021 5:04pm 3-5 /hpf MA[facility] [address] [address]265 Urine WBC March 16, 2021 5:40pm See comment /hpf Microscopic field obscured by RBC. MAIN [facility] [address] [address] Urine WBC June 27, 2021 3:10pm None seen /hpf MA[facility] [address] [address] Urine Squamous Epithelial Cells January 02, 2021 5:04pm 1+ /hpf MA[facility] [address] [address] Urine Squamous Epithelial Cells June 27, 2021 3:10pm 2+ /hpf MA[facility] [address] [address]79 Urine Bacteria October 14, 2020 10:45pm 1+ /hpf NONE SEEN MA[facility] LAB [address] [place] [address] 88042 Urine Bacteria January 02, 2021 5:04pm None seen /hpf NONE SEEN MAIN LAB [facility] [address] [facility] [address] Urine Bacteria March 16, 2021 5:40pm See comment /hpf NONE SEEN Microscopic field obscured by RBC. MAIN LAB [address] [address] Urine Bacteria June 27, 2021 3:10pm 1+ /hpf NONE SEEN MAIN LAB [address] [address] Urine Mucus October 14, 2020 10:45pm Present MAIN LAB [address] [place] [address] Urine Mucus June 27, 2021 3:10pm Present MAIN LAB [address] [address] Urine Culture Done October 14, 2020 10:45pm No CULTURE NOT INDICATED. MAIN LAB [address] [place] [address] Urine Culture Done January 02, 2021 5:04pm Yes URINE SPECIMEN CULTURED MAIN LAB [address] [address] Urine Culture Done March 16, 2021 5:40pm Yes URINE SPECIMEN CULTURED MAIN LAB [address] [address] Urine Culture Done June 27, 2021 3:10pm No CULTURE NOT INDICATED. MAIN LAB [address] [address] Urine Test January 02, 2021 5:04pm Negative NEGATIVE MAIN LAB [address] [address] Sodium Level October 14, 2020 10:38pm 138 mmol/L 137-145 MAIN LAB [address] [place] [address] Sodium Level January 02, 2021 3:44pm 141 mmol/L 137-145 MAIN LAB [address] [address] Sodium Level January 07, 2021 4:35pm 140 mmol/L 137-145 MAIN LAB [address] [address] Sodium Level January 29, 2021 8:57pm 137 mmol/L 137-145 MAIN LAB [address] [address] Sodium Level March 16, 2021 4:34pm 137 mmol/L 137-145 MAIN LAB [facility] [address] [facility] [address] Sodium Level March 18, 2021 6:56pm 141 mmol/L 137-145 MAIN LAB [address] [address] Sodium Level March 20, 2021 4:04pm 140 mmol/L 137-145 MAIN LAB [address] [address] Potassium Level October 14, 2020 10:38pm 3.8 mmol/L 3.6-5.0 MAIN LAB [address] [place] [address] Potassium Level January 02, 2021 3:44pm 3.9 mmol/L 3.6-5.0 MAIN LAB [address] [address] Potassium Level January 07, 2021 4:35pm 3.7 mmol/L 3.6-5.0 MAIN LAB [address] [address] Potassium Level January 29, 2021 8:57pm 3.5 mmol/L 3.6-5.0 MAIN LAB [address] [address] Potassium Level March 16, 2021 4:34pm 4.0 mmol/L 3.6-5.0 MAIN LAB [address] [address] Potassium Level March 18, 2021 6:56pm 3.4 mmol/L 3.6-5.0 MAIN LAB [address] [address] Potassium Level March 20, 2021 4:04pm 3.8 mmol/L 3.6-5.0 MAIN LAB [address] [address] Chloride Level October 14, 2020 10:38pm 100 mmol/L 98-107 MAIN LAB [address] [place] [address] Chloride Level January 02, 2021 3:44pm 104 mmol/L 98-107 MAIN LAB [address] [address] Chloride Level January 07, 2021 4:35pm 103 mmol/L 98-107 MAIN LAB [facility] [address] [facility] [address] Chloride Level January 29, 2021 8:57pm 99 mmol/L 98-107 MAIN LAB [facility] [address] [facility] [address] Chloride Level March 16, 2021 4:34pm 102 mmol/L 98-107 MAIN LAB [facility] [address] [facility] [address] Chloride Level March 18, 2021 6:56pm 102 mmol/L 98-107 MAIN LAB [facility] [address] [facility] [address] Chloride Level March 20, 2021 4:04pm 103 mmol/L 98-107 MAIN LAB [facility] [address] [facility] [address] Carbon Dioxide Level October 14, 2020 10:38pm 25 mmol/L 22-30 MAIN LAB [address] [place] [address] Carbon Dioxide Level January 02, 2021 3:44pm 26 mmol/L 22-30 MAIN LAB [facility] [address] [facility] [address] Carbon Dioxide Level January 07, 2021 4:35pm 27 mmol/L 22-30 MAIN LAB [address] [address] Carbon Dioxide Level January 29, 2021 8:57pm 27 mmol/L 22-30 MAIN LAB [address] [address] Carbon Dioxide Level March 16, 2021 4:34pm 28 mmol/L 22-30 MAIN LAB [facility] [address] [facility] [address] Carbon Dioxide Level March 18, 2021 6:56pm 29 mmol/L 22-30 MAIN LAB [address] [address] Carbon Dioxide Level March 20, 2021 4:04pm 27 mmol/L 22-30 MAIN LAB [facility] [address] [facility] [address] Anion Gap October 14, 2020 10:38pm 13 7-16 MAIN LAB [address] [facility] [address] Anion Gap January 02, 2021 3:44pm 11 7-16 MAIN LAB [facility] [address] [facility] [address] Anion Gap January 07, 2021 4:35pm 10 7-16 MAIN LAB [facility] [address] [facility] [address] Anion Gap January 29, 2021 8:57pm 11 7- MAIN LAB [facility] [address] [facility] [address] Anion Gap March 16, 2021 4:34pm 7 7- MAIN LAB [address] [address] Anion Gap March 18, 2021 6:56pm 10 7- MAIN LAB [address] [address] Anion Gap March 20, 2021 4:04pm 10 - MAIN LAB [address] [address] Blood Urea Nitrogen October 14, 2020 10:38pm 15 mg/dL - MAIN LAB [address] [place] [address] Blood Urea Nitrogen January 02, 2021 3:44pm 11 mg/dL - MAIN LAB [address] [address] Blood Urea Nitrogen January 07, 2021 4:35pm 13 mg/dL - MAIN LAB [address] [address] Blood Urea Nitrogen January 29, 2021 8:57pm 13 mg/dL - MAIN LAB [address] [address] Blood Urea Nitrogen March 16, 2021 4:34pm 10 mg/dL 7- MAIN LAB [address] [address] Blood Urea Nitrogen March 18, 2021 6:56pm 10 mg/dL - MAIN LAB [address] [address] Blood Urea Nitrogen March 20, 2021 4:04pm 5 mg/dL - MAIN LAB [address] [address] Creatinine October 14, 2020 10:38pm 0.76 mg/dL 0.52-1.04 MAIN LAB [address] [place] [address] Creatinine January 02, 2021 3:44pm 0.76 mg/dL 0.52-1.04 MAIN LAB [address] [address] Creatinine January 07, 2021 4:35pm 0.79 mg/dL 0.52-1.04 MAIN LAB [facility] [address] [facility] [address] Creatinine January 29, 2021 8:57pm 0.84 mg/dL 0.52-1.04 MAIN LAB [address] [address] Creatinine March 16, 2021 4:34pm 0.62 mg/dL 0.52-1.04 MAIN LAB [address] [address] Creatinine March 18, 2021 6:56pm 0.66 mg/dL 0.52-1.04 MAIN LAB [address] [address] Creatinine March 20, 2021 4:04pm 0.59 mg/dL 0.52-1.04 MAIN LAB [address] [address] Glomerular Filtration Rate Calc October 14, 2020 10:38pm > 60 mL/min >60.0 MAIN LAB [address] [place] [address] Glomerular Filtration Rate Calc January 02, 2021 3:44pm > 60 mL/min >60.0 MAIN LAB [address] [address] Glomerular Filtration Rate Calc January 07, 2021 4:35pm > 60 mL/min >60.0 MAIN LAB [address] [address] Glomerular Filtration Rate Calc January 29, 2021 8:57pm > 60 mL/min >60.0 MAIN LAB [address] [address] Glomerular Filtration Rate Calc March 16, 2021 4:34pm > 60 mL/min >60.0 MAIN LAB [address] [address] Glomerular Filtration Rate Calc March 18, 2021 6:56pm > 60 mL/min >60.0 MAIN LAB [address] [address] Glomerular Filtration Rate Calc March 20, 2021 4:04pm > 60 mL/min >60.0 MAIN LAB [address] [address] Glucose Level October 14, 2020 10:38pm 88 mg/dL 70-100 MAIN LAB [address] [place] [address] Glucose Level January 02, 2021 3:44pm 88 mg/dL 70-100 MAIN LAB [address] [address] Glucose Level January 07, 2021 4:35pm 105 mg/dL 70-100 MAIN LAB [address] [address] Glucose Level January 29, 2021 8:57pm 92 mg/dL 70-100 MAIN LAB [address] [address] Glucose Level March 16, 2021 4:34pm 90 mg/dL 70-100 MAIN LAB [address] [address] Glucose Level March 18, 2021 6:56pm 84 mg/dL 70-100 MAIN LAB [address] [address] Glucose Level March 20, 2021 4:04pm 91 mg/dL 70-100 MAIN LAB [address] [address] Calcium Level October 14, 2020 10:38pm 9.3 mg/dL 8.4-10.2 MAIN LAB [address] [place] [address] Calcium Level January 02, 2021 3:44pm 9.3 mg/dL 8.4-10.2 MAIN LAB [address] [address] Calcium Level January 07, 2021 4:35pm 9.6 mg/dL 8.4-10.2 MAIN LAB [address] [address] Calcium Level January 29, 2021 8:57pm 9.8 mg/dL 8.4-10.2 MAIN LAB [address] [address] Calcium Level March 16, 2021 4:34pm 9.5 mg/dL 8.4-10.2 MAIN LAB [address] [address] Calcium Level March 18, 2021 6:56pm 9.3 mg/dL 8.4-10.2 MAIN LAB [address] [address] Calcium Level March 20, 2021 4:04pm 9.4 mg/dL 8.4-10.2 MAIN LAB [address] [address] Calcium Adjusted for Albumin October 14, 2020 10:38pm 9.2 mg/dL 8.4-10.2 MAIN LAB [address] [place] [address] Calcium Adjusted for Albumin January 02, 2021 3:44pm 8.8 mg/dL 8.4-10.2 MAIN LAB [address] [address] Calcium Adjusted for Albumin January 07, 2021 4:35pm 9.3 mg/dL 8.4-10.2 MAIN LAB [address] [address] Calcium Adjusted for Albumin March 16, 2021 4:34pm 9.4 mg/dL 8.4-10.2 MAIN LAB [address] [address] Calcium Adjusted for Albumin March 18, 2021 6:56pm 9.1 mg/dL 8.4-10.2 MAIN LAB [address] [address] Iron Level October 14, 2020 10:38pm 36 ug/dL 37-170 MAIN LAB [address] [place] [address] Total Bilirubin October 14, 2020 10:38pm 0.3 mg/dL 0.2-1.3 MAIN LAB [address] [place] [address] Total Bilirubin January 02, 2021 3:44pm 0.4 mg/dL 0.2-1.3 MAIN LAB [address] [address] Total Bilirubin January 07, 2021 4:35pm 0.4 mg/dL 0.2-1.3 MAIN LAB [address] [address] Total Bilirubin March 16, 2021 4:34pm 0.4 mg/dL 0.2-1.3 MAIN LAB [address] [address] Total Bilirubin March 18, 2021 6:56pm 0.4 mg/dL 0.2-1.3 MAIN LAB [address] [address] Aspartate Amino Transf (AST/SGOT) October 14, 2020 10:38pm 55 U/L 14-36 MAIN LAB [address] [place] [address] Aspartate Amino Transf (AST/SGOT) January 02, 2021 3:44pm 39 U/L 14-36 MAIN LAB [address] [address] Aspartate Amino Transf (AST/SGOT) January 07, 2021 4:35pm 38 U/L 14-36 MAIN LAB [address] [address] Aspartate Amino Transf (AST/SGOT) March 16, 2021 4:34pm 36 U/L 14-36 MAIN LAB [address] [address] Aspartate Amino Transf (AST/SGOT) March 18, 2021 6:56pm 37 U/L 14-36 MAIN LAB [address] [address] Alanine Aminotransferase (ALT/SGPT) October 14, 2020 10:38pm 41 U/L <35 As of 09/13/19, the Reference Range for ALT/SGPT for adult patients has been updated. The Reference Range for ALT/SGPT has not been established for patients <18 years of age. MAIN LAB [address] [place] [address] Alanine Aminotransferase (ALT/SGPT) January 02, 2021 3:44pm 21 U/L <35 As of 09/13/19, the Reference Range for ALT/SGPT for adult patients has been updated. The Reference Range for ALT/SGPT has not been established for patients <18 years of age. MAIN LAB [address] [address] Alanine Aminotransferase (ALT/SGPT) January 07, 2021 4:35pm 23 U/L <35 As of 09/13/19, the Reference Range for ALT/SGPT for adult patients has been updated. The Reference Range for ALT/SGPT has not been established for patients <18 years of age. MAIN LAB [address] [address] Alanine Aminotransferase (ALT/SGPT) March 16, 2021 4:34pm 17 U/L <35 As of 09/13/19, the Reference Range for ALT/SGPT for adult patients has been updated. The Reference Range for ALT/SGPT has not been established for patients <18 years of age. MAIN LAB [address] [address] Alanine Aminotransferase (ALT/SGPT) March 18, 2021 6:56pm 19 U/L <35 As of 09/13/19, the Reference Range for ALT/SGPT for adult patients has been updated. The Reference Range for ALT/SGPT has not been established for patients <18 years of age. MAIN LAB [address] [address] Lactic Acid Level March 18, 2021 6:56pm 1.0 mmol/L 0.7-2.1 MAIN LAB [address] [address] Total Protein October 14, 2020 10:38pm 7.4 g/dL 6.3-8.2 MAIN LAB [address] [place] [address] Total Protein January 02, 2021 3:44pm 7.9 g/dL 6.3-8.2 MAIN LAB [address] [address] Total Protein January 07, 2021 4:35pm 7.7 g/dL 6.3-8.2 MAIN LAB [address] [address] Total Protein March 16, 2021 4:34pm 7.2 g/dL 6.3-8.2 MAIN LAB [address] [address] Total Protein March 18, 2021 6:56pm 7.6 g/dL 6.3-8.2 MAIN LAB [address] [address] Albumin October 14, 2020 10:38pm 4.4 g/dL 3.5-5.0 MAIN LAB [address] [place] [address] Albumin January 02, 2021 3:44pm 4.9 g/dL 3.5-5.0 MAIN LAB [address] [address] Albumin January 07, 2021 4:35pm 4.7 g/dL 3.5-5.0 MAIN LAB [address] [address] Albumin March 16, 2021 4:34pm 4.4 g/dL 3.5-5.0 MAIN LAB [address] [address] Albumin March 18, 2021 6:56pm 4.6 g/dL 3.5-5.0 MAIN LAB [address] [address] Alkaline Phosphatase October 14, 2020 10:38pm 55 U/L 38-126 MAIN LAB [address] [place] [address] Alkaline Phosphatase January 02, 2021 3:44pm 58 U/L 38-126 MAIN LAB [address] [address] Alkaline Phosphatase January 07, 2021 4:35pm 58 U/L 38-126 MAIN LAB [address] [address] Alkaline Phosphatase March 16, 2021 4:34pm 45 U/L 38-126 MAIN LAB [address] [address] Alkaline Phosphatase March 18, 2021 6:56pm 47 U/L 38-126 MAIN LAB [address] [address] Lipase October 14, 2020 10:38pm 43 U/L 23-300 MAIN LAB [address] [place] [address] Ferritin October 14, 2020 10:38pm 4.43 ng/mL 10-291 The results of this assay can be falsely decreased in patients who consume Biotin. MAIN LAB [address] [place] [address] Microbiology Results Procedure Source Result Collection Date/Time Result Date/Time Result Comment Performing Site Blood Culture Blood, Left Antecubital NO GROWTH AFTER 5 DAYS March 18, 2021 9:10pm March 24, 2021 7:15am MAIN LAB [address] [address] Urine Culture Ur,Clean Catch January 02, 2021 6:40pm January 04, 2021 8:36am MAIN LAB [address] [address] Urine Culture Ur,Clean Catch March 16, 2021 7:39pm March 18, 2021 10:45am MAIN LAB [address] [address] Gram Stain Umbilicus March 16, 2021 10:27am March 17, 2021 8:17am MAIN LAB [address] [address] Routine Culture Umbilicus Staphylococcus Aureus-Mrsa March 16, 2021 10:27am March 20, 2021 8:34am MAIN LAB [address] [address] Diagnostic Imaging Reports Report Dictated Date/Time Dictated [...] had a laporoscopy compelted on 03/05/21, at [facility] in [place]. States she is having sharp cramping stabbing [...] Date/Time Weight 90.71 kg October 14, 2020 9:53pm Body Temperature 97.9 [degF] 97.6-99.6 October 14, 2 021 9:53pm Heart Rate 80 /min 60-100 October 14, 2020 9:53pm Respiratory rate 16 /min 12-October 14, 021 9:53pm Oxygen saturation by Pulse oximetry 96 % 95-100 October 14, 2020 9:53p m BP Systolic 119 mm[Hg] 100-140 October 14, 2020 9:53pm BP Diastolic 61 mm[Hg] 50-85 October 14, 2020 9:53pm Weight 90.71 kg December 29 3:32pm Body Temperature 97.6 [degF] 97.6-99.6 December 3:32pm Oxygen saturation by Pulse oximetry 98 % 95-100 December 29, 2020 3: 32pm BP Systolic 138 mm[Hg] 100-140 December 29 3:32pm BP Diastolic 97 mm[Hg] 50-85 December 29 3:32pm Weight 90.71 kg January 02 3:22pm Body Temperature 97.4 [degF] 97.6-99.6 December 3:22pm Heart Rate 77 /min 60-100 January 02 6:20pm Respiratory rate 18 /min 12-December 6:20pm Oxygen saturation by Pulse oximetry 96 % 95-100 January 02, 2021 3: 22pm BP Systolic 107 mm[Hg] 100-140 January 02 6:20pm BP Diastolic 62 mm[Hg] 50-85 January 02 6:20pm Weight 95.25 kg January 07 3:59pm Body Temperature 98 [degF] 97.6-99.6 December 3:59pm Heart Rate 94 /min 60-100 January 07 3:59pm Respiratory rate 20 /min -December 3:59pm Oxygen saturation by Pulse oximetry 100 % 95-100 January 07, 2021 3: 59pm BP Systolic 108 mm[Hg] 100-140 January 07 3:59pm BP Diastolic 74 mm[Hg] 50-85 January 07 3:59pm Weight 90.71 kg January 21, 2021 2:08pm Body Temperature 98.5 [degF] 97.6-99.6 January 212020 2:08pm Heart Rate 82 /min 60-100 January 21, 2021 2:08pm Respiratory rate 18 /min -January 212020 2:08pm Oxygen saturation by Pulse oximetry 97 % 95-100 January 21, 2021 2:08pm BP Systolic 118 mm[Hg] 100-140 January 21, 2021 2:08pm BP Diastolic 84 mm[Hg] 50-85 January 21, 2021 2:08pm Weight 95.25 kg January 29, 2021 7:58pm Body Temperature 98 [degF] 97.6-99.6 January 132020 7:58pm Heart Rate 67 /min 60-100 January 29, 2021 10:00pm Respiratory rate 17 /min -January 132020 10:00pm Oxygen saturation by Pulse oximetry 97 % 95-100 January 29, 2021 10:00pm BP Systolic 93 mm[Hg] 100-140 January 29, 2021 10:00pm BP Diastolic 64 mm[Hg] 50-85 January 29, 2021 10:00pm Weight 92.98 kg March 16, 021 2:55pm Body Temperature 99.0 [degF] 97.6-99.6 March 2:55pm Heart Rate 78 /min 60-100 March 16, 2 021 8:44pm Respiratory rate 18 /min -March 8:44pm Oxygen saturation by Pulse oximetry 98 % 95-100 March 16, 2021 8 :44pm BP Systolic 116 mm[Hg] 100-140 March 16, 2 021 8:44pm BP Diastolic 68 mm[Hg] 50-85 March 16, 2 021 8:44pm Weight 95.25 kg March 18, 2 021 5:24pm Body Temperature 98.9 [degF] 97.6-99.6 March 5:24pm Heart Rate 82 /min 60-100 March 18, 2 021 7:33pm Respiratory rate 16 /min -March 7:33pm Oxygen saturation by Pulse oximetry 99 % 95-100 March 18, 2021 7 :33pm BP Systolic 100 mm[Hg] 100-140 March 18, 2 021 7:33pm BP Diastolic 58 mm[Hg] 50-85 March 18, 2 021 7:33pm Height 64 [in_i] March 20, 2 021 1:44pm Weight 95.25 kg March 20, 2 021 1:44pm Body Temperature 97.7 [degF] 97.6-99.6 March 1:44pm Heart Rate 67 /min 60-100 March 20, 2 021 4:00pm Respiratory rate 17 /min -March 4:00pm Oxygen saturation by Pulse oximetry 100 % 95-100 March 20, 2021 4 :00pm BP Systolic 124 mm[Hg] 100-140 March 20, 2 021 4:00pm BP Diastolic 57 mm[Hg] 50-85 March 20, 2 021 4:00pm Weight 95.25 kg March 27, 2021 12:22pm Body Temperature 98.6 [degF] 97.6-99.6 March 272020 12:22pm Heart Rate 62 /min 60-100 March 27, 2021 1:20pm Respiratory rate 18 /min -March 272020 1:20pm Oxygen saturation by Pulse oximetry 98 % 95-100 March 27, 2021 1:20pm BP Systolic 106 mm[Hg] 100-140 March 27, 2021 1:20pm BP Diastolic 59 mm[Hg] 50-85 March 27, 2021 1:20pm Weight 86.18 kg June 27, 2021 2:33pm Body Temperature 98.2 [degF] 97.6-99.6 June 272021 2:33pm Heart Rate 75 /min 60-100 June 27, 2021 2:33pm Respiratory rate 18 /min -24 June 272021 2:33pm Oxygen saturation by Pulse oximetry 99 % 95-100 June 27, 2021 2:33pm BP Systolic 116 mm[Hg] 100-140 June 27, 2021 2:33pm BP Diastolic 70 mm[Hg] 50-85 June 27, 2021 2:33pm Advance Directives Advance Directive Response Recorded Date/ Time Does patient have an Advanced Directive? No October 14, 2020 10:22pm Do we [place] [facility] October 14, 2020 10:22pm Pt has a Living Will? No October 14, 2020 10:22pm Do we have a copy [place] [facility] No October 14, 2020 10:22pm Pt has a Power of Dry Cell Battery Assembler? No October 14, 2020 10:22pm Do we [place] a [place] [facility] No October 14, 2020 10:22pm Insurance Providers Guarantor EDUARDO PAYAN Address [address] [place] [address] Contact Info. Home Phone: Payer Policy Id Coverage Id Subscriber's Name Subscriber Id Effective Date Expiration Date [facility] [id number] EDUARDO PAYAN [id number] 000 SELF PAY Self N/A Encounters Encounter Location(s) Arrival/Admit Date Discharge/Depart Date Provider(s) Departed Emergency [facility]-Emergency Department October 14, 2020 9:48pm October 14, 2020 11:54pm null Departed Emergency [facility]-Emergency Department December 29, 2020 3:23pm December 29, 2020 6:13pm null Departed Emergency [facility]-Emergency Department January 02, 2021 3:12pm January 02, 2021 6:22pm null Departed Emergency [facility]-Emergency Department January 07, 2021 3:48pm January 07, 2021 5:55pm null Departed Emergency [facility] January 21, 2021 1:24pm January 21, 2021 3:51pm null Departed Emergency [facility]Emergency Department January 29, 2021 7:55pm January 29, 2021 10:08pm null Departed Emergency [facility]Emergency Department March 16, 2021 2:28pm March 16, 2021 9:43pm null Departed Emergency [facility]Emergency Department March 18, 2021 5:11pm March 18, 2021 8:19pm null Departed Emergency [facility]Emergency Department March 20, 2021 1:33pm March 20, 2021 5:25pm null Departed Emergency [facility]Emergency Department March 27, 2021 11:49am March 27, 2021 2:32pm null Departed Emergency [facility]-Emergency Department June 27, 2021 2:30pm June 27, 2021 4:01pm null Functional Status Observation Response Date Recorded Living Situation Home June 27, 2021 4:00pm Mental Status Observation Response Date Recorded Comprehension Ability Understands Concepts Septe mber 2020 8:35pm Mood/Behavior Anxious January 29, 2021 8:35pm Comprehension Ability Understands Concepts Augus t 2020 4:40pm Mood/Behavior Anxious January 07 4:40pm Comprehension Ability Understands Concepts Augus t 2020 3:30pm Mood/Behavior Appropriate January 02 3:30pm Comprehension Ability Understands Concepts Novem 2020 7:30pm Speech Appropriate March 18 7:30pm Clear March 18 7:30pm Mood/Behavior Appropriate March 18 7:30pm Comprehension Ability Understands Concepts October 14, 2020 10:00pm Mood/Behavior Appropriate October 14, 2020 1 0:00pm Plan of Treatment Future Tests Future scheduled test information is unavailable Pending Tests Pending diagnostic test information is unavailable Future Visits Future appointment information is unavailable Referrals to Other Providers Reason for Referral Referral Start Date Provider Provider Contact Information Provider Address [place] Emely holloway MD Work Phone: [facility] [employer] [address] [place] [phone] Chavez and will see for [place] [facility] Work Phone: [address] [place] [phone] No Pcp Mahad Chavez MD Work Phone: [facility] [address] [facility] [phone] No Pcp No Pcp No Pcp Out [facility] Work Phone: [address] [facility] [address] No Pcp No Pcp No Pcp Future [...] After Surgery Hospital Discharge Instructions Additional Instructions Take the antibiotic as prescribed for possible urinary tract infection. Take the tramadol as needed for pain. Take your Zofran for nausea. Sure to stay well-hydrated. Turn to the ER for any worsening symptoms.
--- OUTSIDE RECORDS SUMMARY | 2022-11-20 17:46 | XMS_ITS | Continuity of Care Document ---
Author Name Unknown Address [address] [place] [address] Phone [facility] Address [address] [place] [address] Phone Care Team Providers Care Utility Worker Name Role Phone PCP, of Choice [...] 2020 11:38pm 7.41 1000/mm3 4.8-10.8 MAIN LAB [address] [place] [address]25 White Blood Count January 02, 2021 4:44pm 6.81 1000/mm3 4.8-10.8 MAIN LAB [address] [address] White Blood Count January 07, 2021 5:35pm 5.33 1000/mm3 4.8-10.8 MAIN LAB [address] 05[address] White Blood Count January 29, 2021 9:57pm 5.85 1000/mm3 4.8-10.8 MAIN LAB [address] 8[address]25 White Blood Count March 16, 2021 5:34pm 6.11 1000/mm3 4.8-10.8 MAIN LAB [address] [address]647 White Blood Count March 18, 2021 7:56pm 5.26 1000/mm3 4.8-10.8 MAIN LAB [address] 55200 White Blood Count March 20, 2021 4:37pm 4.94 1000/mm3 4.8-10.8 MAIN LAB [address] [address]94 Red Blood Count October 14, 2020 11:38pm 4.44 M/mm3 4.20-5.40 MAIN LAB [address] [place] [address] 48949 Red Blood Count January 02, 2021 4:44pm 4.67 M/mm3 4.20-5.40 MAIN LAB [address] 30629 Red Blood Count January 07, 2021 5:35pm 4.85 M/mm3 4.20-5.40 MAIN LAB [address] 54696 Red Blood Count January 29, 2021 9:57pm 4.53 M/mm3 4.20-5.40 MAIN LAB [address] 49839 Red Blood Count March 16, 2021 5:34pm 4.26 M/mm3 4.20-5.40 MAIN LAB [address] 42670 Red Blood Count March 18, 2021 7:56pm 4.17 M/mm3 4.20-5.40 MAIN LAB [address] 51224 Red Blood Count March 20, 2021 4:37pm 4.14 M/mm3 4.20-5.40 MAIN LAB [address] 35646 Hemoglobin October 14, 2020 11:38pm 9.2 g/dL 12.0-16.0 MAIN LAB [address] [place] [address] 85645 Hemoglobin January 02, 2021 4:44pm 10.4 g/dL 12.0-16.0 MAIN LAB [address] 93027 Hemoglobin January 07, 2021 5:35pm 10.8 g/dL 12.0-16.0 MAIN LAB [address] 12334 Hemoglobin January 29, 2021 9:57pm 10.4 g/dL 12.0-16.0 MAIN LAB [address] 82708 Hemoglobin March 16, 2021 5:34pm 9.9 g/dL 12.0-16.0 MAIN LAB [address] 33204 Hemoglobin March 18, 2021 7:56pm 9.9 g/dL 12.0-16.0 MAIN LAB [address] 76537 Hemoglobin March 20, 2021 4:37pm 9.8 g/dL 12.0-16.0 MAIN LAB [address] [address]2332 Hematocrit October 14, 2020 11:38pm 30.6 % 37-47 MAIN LAB [address] [place] [address] 10257 Hematocrit January 02, 2021 4:44pm 35.2 % 37-47 MAIN LAB [address] 37467 Hematocrit January 07, 2021 5:35pm 36.3 % 37-47 MAIN LAB [address] 67426 Hematocrit January 29, 2021 9:57pm 33.7 % 37-47 MAIN LAB [address] 76010 Hematocrit March 16, 2021 5:34pm 33.2 % 37-47 MAIN LAB [facility] [address] [facility] [address] Hematocrit March 18, 2021 7:56pm 32.9 % 37-47 MAIN LAB [facility] [address] [facility] [address] Hematocrit March 20, 2021 4:37pm 32.6 % 37-47 MAIN LAB [address] 10276 Mean Corpuscular Volume October 14, 2020 11:38pm 68.9 fL 81.0-99.0 MAIN LAB [address] [place] [address] 91987 Mean Corpuscular Volume January 02, 2021 4:44pm 75.4 fL 81.0-99.0 MAIN LAB [address] 41119 Mean Corpuscular Volume January 07, 2021 5:35pm 74.8 fL 81.0-99.0 MAIN LAB [address] 80534 Mean Corpuscular Volume January 29, 2021 9:57pm 74.4 fL 81.0-99.0 MAIN LAB [address] 58870 Mean Corpuscular Volume March 16, 2021 5:34pm 77.9 fL 81.0-99.0 MAIN LAB [address] 58825 Mean Corpuscular Volume March 18, 2021 7:56pm 78.9 fL 81.0-99.0 MAIN LAB [address] 87475 Mean Corpuscular Volume March 20, 2021 4:37pm 78.7 fL 81.0-99.0 MAIN LAB [address] 79477 Mean Corpuscular Hemoglobin October 14, 2020 11:38pm 20.7 pg 27-31 MAIN LAB [address] [place] [address] 62209 Mean Corpuscular Hemoglobin January 02, 2021 4:44pm 22.3 pg 27-31 MAIN LAB [facility] [address] [facility] 300[address] Mean Corpuscular Hemoglobin January 07, 2021 5:35pm 22.3 pg 27-31 MAIN LAB [facility] [address] [facility] 46247 Mean Corpuscular Hemoglobin January 29, 2021 9:57pm 23.0 pg 27-31 MAIN LAB [facility] [address] [facility] 44721 Mean Corpuscular Hemoglobin March 16, 2021 5:34pm 23.2 pg 27-31 MAIN LAB [facility] [address] [facility] 88321 Mean Corpuscular Hemoglobin March 18, 2021 7:56pm 23.7 pg 27-31 MAIN LAB [address] 55252 Mean Corpuscular Hemoglobin March 20, 2021 4:37pm 23.7 pg 27-31 MAIN LAB [facility] [address] [facility] 23761 Mean Corpuscular Hemoglobin Concent October 14, 2020 11:38pm 30.1 g/dL 33-37 MAIN LAB [address] [facility] 36805 Mean Corpuscular Hemoglobin Concent January 02, 2021 4:44pm 29.5 g/dL 33-37 MAIN LAB [facility] [address] [facility] 63530 Mean Corpuscular Hemoglobin Concent January 07, 2021 5:35pm 29.8 g/dL 33-37 MAIN LAB [facility] [address] [facility] 23199 Mean Corpuscular Hemoglobin Concent January 29, 2021 9:57pm 30.9 g/dL 33-37 MAIN LAB [facility] [address] [facility] 09730 Mean Corpuscular Hemoglobin Concent March 16, 2021 5:34pm 29.8 g/dL 33-37 MAIN LAB [facility] [address] [facility] 72155 Mean Corpuscular Hemoglobin Concent March 18, 2021 7:56pm 30.1 g/dL 33-37 MAIN LAB [facility] [address] [facility] 98885 Mean Corpuscular Hemoglobin Concent March 20, 2021 4:37pm 30.1 g/dL 33-37 MAIN LAB [address] 25931 Red Cell Distribution Width October 14, 2020 11:38pm 16.8 % 11.5-14.5 MAIN LAB [address] [place] [address] 18307 Red Cell Distribution Width January 02, 2021 4:44pm 19.4 % 11.5-14.5 MAIN LAB [address] 54535 Red Cell Distribution Width January 07, 2021 5:35pm 18.6 % 11.5-14.5 MAIN LAB [address] 19137 Red Cell Distribution Width January 29, 2021 9:57pm 17.6 % 11.5-14.5 MAIN LAB [address] 18323 Red Cell Distribution Width March 16, 2021 5:34pm 16.2 % 11.5-14.5 MAIN LAB [address] 28292 Red Cell Distribution Width March 18, 2021 7:56pm 16.4 % 11.5-14.5 MAIN LAB [address] 64505 Red Cell Distribution Width March 20, 2021 4:37pm 16.5 % 11.5-14.5 MAIN LAB [address] 67395 Platelet Count October 14, 2020 11:38pm 250 1000/mm3 140-440 MAIN LAB [address] [place] [address] 93456 Platelet Count January 02, 2021 4:44pm 216 1000/mm3 140-440 MAIN LAB [address] 72826 Platelet Count January 07, 2021 5:35pm 240 1000/mm3 140-440 MAIN LAB [address] [address]05 Platelet Count January 29, 2021 9:57pm 248 1000/mm3 140-440 MAIN LAB [address] 90739 Platelet Count March 16, 2021 5:34pm 220 1000/mm3 140-440 MAIN LAB [address] 46669 Platelet Count March 18, 2021 7:56pm 212 1000/mm3 140-440 MAIN LAB [address] 89181 Platelet Count March 20, 2021 4:37pm 177 1000/mm3 140-440 MAIN LAB [address] 73193 Mean Platelet Volume October 14, 2020 11:38pm 10.6 fL 7.4-10.4 MAIN LAB [address] [place] [address] 39156 Mean Platelet Volume January 02, 2021 4:44pm 10.7 fL 7.4-10.4 MAIN LAB [address] 50174 Mean Platelet Volume January 07, 2021 5:35pm 11.3 fL 7.4-10.4 MAIN LAB [address] 62655 Mean Platelet Volume January 29, 2021 9:57pm 10.6 fL 7.4-10.4 MAIN LAB [address] 54214 Mean Platelet Volume March 16, 2021 5:34pm 10.6 fL 7.4-10.4 MAIN LAB [address] 79844 Mean Platelet Volume March 18, 2021 7:56pm 10.4 fL 7.4-10.4 MAIN LAB [address] 62399 Mean Platelet Volume March 20, 2021 4:37pm 9.9 fL 7.4-10.4 MAIN LAB [address] [address]18 Neutrophils (%) (Auto) October 14, 2020 11:38pm 60.3 % 40.0-72.0 MAIN LAB [address] [place] [address] 06218 Neutrophils (%) (Auto) January 02, 2021 4:44pm 64.3 % 40.0-72.0 MAIN LAB [address] 72544 Neutrophils (%) (Auto) January 07, 2021 5:35pm 51.4 % 40.0-72.0 MAIN LAB [address] 73437 Neutrophils (%) (Auto) January 29, 2021 9:57pm 57.7 % 40.0-72.0 MAIN LAB [address] 38748 Neutrophils (%) (Auto) March 16, 2021 5:34pm 62.5 % 40.0-72.0 MAIN LAB [address] 37858 Neutrophils (%) (Auto) March 18, 2021 7:56pm 57.9 % 40.0-72.0 MAIN LAB [address] 90581 Neutrophils (%) (Auto) March 20, 2021 4:37pm 64.0 % 40.0-72.[address] [address] Lymphocytes (%) (Auto) October 14, 2020 11:38pm 29.0 % 17-45 MAIN LAB [address] [place] [address] 87466 Lymphocytes (%) (Auto) January 02, 2021 4:44pm 26.3 % 17-45 MAIN LAB [address] 00034 Lymphocytes (%) (Auto) January 07, 2021 5:35pm 37.7 % 17-[address] [address] Lymphocytes (%) (Auto) January 29, 2021 9:57pm 32.6 % 17-[address] [address] Lymphocytes (%) (Auto) March 16, 2021 5:34pm 26.7 % 17-45 MAIN LAB [address] 56586 Lymphocytes (%) (Auto) March 18, 2021 7:56pm 30.4 % 17-45 [facility] LAB [address] 31340 Lymphocytes (%) (Auto) March 20, 2021 4:37pm 26.1 % 17-45 MAIN LAB [address] 64578 Monocytes (%) (Auto) October 14, 2020 11:38pm 8.2 % 3-11 MAIN LAB [address] [place] [address] 85779 Monocytes (%) (Auto) January 02, 2021 4:44pm 6.2 % 3-11 MAIN LAB [address] 68420 Monocytes (%) (Auto) January 07, 2021 5:35pm 6.0 % 3-11 MAIN LAB [address] 79120 Monocytes (%) (Auto) January 29, 2021 9:57pm 6.5 % 3-11 MAIN LAB [address] 67062 Monocytes (%) (Auto) March 16, 2021 5:34pm 6.9 % 3-11 [facility] LAB [address] 14475 Monocytes (%) (Auto) March 18, 2021 7:56pm 7.2 % 3-11 MAIN LAB [address] 76796 Monocytes (%) (Auto) March 20, 2021 4:37pm 5.9 % 3-11 MAIN LAB [address] 65466 Eosinophils (%) (Auto) October 14, 2020 11:38pm 1.1 % 0-3 [facility] LAB [address] [place] [address] 06599 Eosinophils (%) (Auto) January 02, 2021 4:44pm 2.2 % 0-3 [facility] LAB [address] 90766 Eosinophils (%) (Auto) January 07, 2021 5:35pm 3.2 % 0-3 MAIN LAB [address] 20050 Eosinophils (%) (Auto) January 29, 2021 9:57pm 1.7 % 0-3 [facility] LAB [address] 81286 Eosinophils (%) (Auto) March 16, 2021 5:34pm 2.6 % 0-3 MAIN LAB [address] 57284 Eosinophils (%) (Auto) March 18, 2021 7:56pm 3.2 % 0-3 [facility] [address] [address] Eosinophils (%) (Auto) March 20, 2021 4:37pm 2.8 % 0-3 MAIN LAB [address] 45996 Basophils (%) (Auto) October 14, 2020 11:38pm 1.3 % 0-1 MAIN LAB [address] [place] [address] 08874 Basophils (%) (Auto) January 02, 2021 4:44pm 0.9 % 0-1 MAIN LAB [address] 44550 Basophils (%) (Auto) January 07, 2021 5:35pm 1.5 % 0-1 MAIN LAB [address] 79450 Basophils (%) (Auto) January 29, 2021 9:57pm 1.2 % 0-1 MAIN LAB [address] 99719 Basophils (%) (Auto) March 16, 2021 5:34pm 1.1 % 0-1 MAIN LAB [address] 90966 Basophils (%) (Auto) March 18, 2021 7:56pm 1.1 % 0-[address] [address] Basophils (%) (Auto) March 20, 2021 4:37pm 1.0 % 0-1 [facility] LAB [address] 08174 Immature Granulocyte % (Auto) October 14, 2020 11:38pm 0.1 % 0-1 MAIN LAB [address] [place] [address] 03964 Immature Granulocyte % (Auto) January 02, 2021 4:44pm 0.1 % 0-1 MAIN LAB [address] 57848 Immature Granulocyte % (Auto) January 07, 2021 5:35pm 0.2 % 0-1 MAIN LAB [address] 84447 Immature Granulocyte % (Auto) January 29, 2021 9:57pm 0.3 % 0-1 MAIN LAB [address] 20246 Immature Granulocyte % (Auto) March 16, 2021 5:34pm 0.2 % 0-1 MAIN LAB [address] 40593 Immature Granulocyte % (Auto) March 18, 2021 7:56pm 0.2 % 0-1 MAIN LAB [address] 11271 Immature Granulocyte % (Auto) March 20, 2021 4:37pm 0.2 % 0-1 MAIN LAB [address] 86253 Neutrophils # (Auto) October 14, 2020 11:38pm 4.46 1000/mm3 1.4-6.5 MAIN LAB [address] [place] [address] 30142 Neutrophils # (Auto) January 02, 2021 4:44pm 4.38 1000/mm3 1.4-6.5 MAIN LAB [address] 81036 Neutrophils # (Auto) January 07, 2021 5:35pm 2.74 1000/mm3 1.4-6.5 MAIN LAB [address] 39282 Neutrophils # (Auto) January 29, 2021 9:57pm 3.37 1000/mm3 1.4-6.5 MAIN LAB [address] [address]19 Neutrophils # (Auto) March 16, 2021 5:34pm 3.82 1000/mm3 1.4-6.5 MAIN LAB [address] 08796 Neutrophils # (Auto) March 18, 2021 7:56pm 3.04 1000/mm3 1.4-6.5 MAIN LAB [address] 66857 Neutrophils # (Auto) March 20, 2021 4:37pm 3.16 1000/mm3 1.4-6.5 MAIN LAB [address] 03493 Lymphocytes # (Auto) October 14, 2020 11:38pm 2.15 1000/mm3 1.2-3.4 MAIN LAB [address] [place] [address] 67259 Lymphocytes # (Auto) January 02, 2021 4:44pm 1.79 1000/mm3 1.2-3.4 MAIN LAB [address] 65485 Lymphocytes # (Auto) January 07, 2021 5:35pm 2.01 1000/mm3 1.2-3.4 MAIN LAB [address] 05952 Lymphocytes # (Auto) January 29, 2021 9:57pm 1.91 1000/mm3 1.2-3.4 MAIN LAB [address] 98521 Lymphocytes # (Auto) March 16, 2021 5:34pm 1.63 1000/mm3 1.2-3.4 MAIN LAB [address] 46072 Lymphocytes # (Auto) March 18, 2021 7:56pm 1.60 1000/mm3 1.2-3.4 MAIN LAB [address] 43958 Lymphocytes # (Auto) March 20, 2021 4:37pm 1.29 1000/mm3 1.2-3.4 MAIN LAB [address] 37207 Monocytes # (Auto) October 14, 2020 11:38pm 0.61 1000/mm3 0.0-0.8 MAIN LAB [address] [place] [address] 37554 Monocytes # (Auto) January 02, 2021 4:44pm 0.42 1000/mm3 0.0-0.8 MAIN LAB [address] 21062 Monocytes # (Auto) January 07, 2021 5:35pm 0.32 1000/mm3 0.0-0.8 MAIN LAB [address] 28094 Monocytes # (Auto) January 29, 2021 9:57pm 0.38 1000/mm3 0.0-0.8 MAIN LAB [address] 86045 Monocytes # (Auto) March 16, 2021 5:34pm 0.42 1000/mm3 0.0-0.8 MAIN LAB [address] 52189 Monocytes # (Auto) March 18, 2021 7:56pm 0.38 1000/mm3 0.0-0.8 MAIN LAB [address] 57726 Monocytes # (Auto) March 20, 2021 4:37pm 0.29 1000/mm3 0.0-0.8 MAIN LAB [address] 16957 Eosinophils # (Auto) October 14, 2020 11:38pm 0.08 1000/mm3 0.0-0.7 MAIN LAB [address] [place] [address] 67127 Eosinophils # (Auto) January 02, 2021 4:44pm 0.15 1000/mm3 0.0-0.7 MAIN LAB [address] 79762 Eosinophils # (Auto) January 07, 2021 5:35pm 0.17 1000/mm3 0.0-0.7 MAIN LAB [address] 33399 Eosinophils # (Auto) January 29, 2021 9:57pm 0.10 1000/mm3 0.0-0.7 MAIN LAB [address] 35748 Eosinophils # (Auto) March 16, 2021 5:34pm 0.16 1000/mm3 0.0-0.7 MAIN LAB [address] 89876 Eosinophils # (Auto) March 18, 2021 7:56pm 0.17 1000/mm3 0.0-0.7 MAIN LAB [address] 33940 Eosinophils # (Auto) March 20, 2021 4:37pm 0.14 1000/mm3 0.0-0.7 MAIN LAB [address] [address]14 Basophils # (Auto) October 14, 2020 11:38pm 0.10 1000/mm3 0.0-0.1 MAIN LAB [address] [place] [address] 77207 Basophils # (Auto) January 02, 2021 4:44pm 0.06 1000/mm3 0.0-0.1 MAIN LAB [address] 16093 Basophils # (Auto) January 07, 2021 5:35pm 0.08 1000/mm3 0.0-0.1 MAIN LAB [address] [address]75 Basophils # (Auto) January 29, 2021 9:57pm 0.07 1000/mm3 0.0-0.1 MAIN LAB [address] 71308 Basophils # (Auto) March 16, 2021 5:34pm 0.07 1000/mm3 0.0-0.1 MAIN LAB [address] 14717 Basophils # (Auto) March 18, 2021 7:56pm 0.06 1000/mm3 0.0-0.1 MAIN LAB [address] 59747 Basophils # (Auto) March 20, 2021 4:37pm 0.05 1000/mm3 0.0-0.1 MAIN LAB [address] 56938 Absolute Immature Granulocyte (auto October 14, 2020 11:38pm 0.0 0-1 MAIN LAB [address] [place] [address] 01549 Absolute Immature Granulocyte (auto January 02, 2021 4:44pm 0.0 0-1 MAIN LAB [address] [address]50 Absolute Immature Granulocyte (auto January 07, 2021 5:35pm 0.0 0-1 MAIN LAB [address] 71428 Absolute Immature Granulocyte (auto January 29, 2021 9:57pm 0.0 0-1 MAIN LAB [address] 15549 Absolute Immature Granulocyte (auto March 16, 2021 5:34pm 0.0 0-1 MAIN LAB [address] 38113 Absolute Immature Granulocyte (auto March 18, 2021 7:56pm 0.0 0-1 MAIN LAB [address] 72128 Absolute Immature Granulocyte (auto March 20, 2021 4:37pm 0.0 0-1 MAIN LAB [address] 37082 Differential Method October 14, 2020 11:38pm Automated MAIN LAB [address] [place] [address] 75956 Differential Method January 02, 2021 4:44pm Automated MAIN LAB [address] [place] [address] Differential Method January 07, 2021 5:35pm Automated MAIN LAB [address] [place] [address] Differential Method January 29, 2021 9:57pm Automated MAIN LAB [address] 16116 Differential Method March 16, 2021 5:34pm Automated MAIN LAB [address] [place] [address] Differential Method March 18, 2021 7:56pm Automated MAIN LAB [address] [address]30 Differential Method March 20, 2021 4:37pm Automated MAIN LAB [address] [address]28 Differential Pathologist's Review October 14, 2020 11:38pm See comment No comparison data on file at [facility]. 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 The recommended therapeutic range for warfarin (Coumadin) for most clinical indications is an INR of 2.0-3.0. An INR of 2.5-3.5 is recommended for patients with mechanical heart valves. MAIN LAB [address] [place] [address]74 Activated Partial Thromboplast Time October 14, 2020 11:38pm 26.1 SECONDS 21.6-36.0 A target of 1.5-2.5 times the mean of the normal reference range is considered therapeutic. NOTE: APTT must NOT be used to monitor LMWH therapy. Contact [facility] for monitoring information. MAIN LAB [address] [place] [address] 44365 Urine Color January 02, 2021 6:04pm Lauren MAIN LAB [address] [address] Urine Clarity January 02, 2021 6:04pm very cloudy MAIN LAB [address] 60835 Urine pH January 02, 2021 6:04pm 6.0 MAIN LAB [address] 94503 Urine Specific [place] January 02, 2021 6:04pm 1.015 MAIN LAB [address] 67797 Urine Protein January 02, 2021 6:04pm 100 (2+) mg/dL NEGATIVE MAIN LAB [address] [address]61 Urine Glucose (UA) January 02, 2021 6:04pm Normal mg/dL NORMAL MAIN LAB [address] 78673 Urine Ketones January 02, 2021 6:04pm Negative NEGATIVE MAIN LAB [address] 68753 Urine Nitrite January 02, 2021 6:04pm Negative Negative MAIN LAB [address] 84359 Urine Bilirubin January 02, 2021 6:04pm Negative mg/dL NEGATIVE MAIN LAB [address] 36195 Urine Urobilinogen January 02, 2021 6:04pm Normal mg/dL NORMAL MAIN LAB [address] 12585 Urine Leukocyte Esterase January 02, 2021 6:04pm Moderate (2+) WBC/uL NEGATIVE MAIN LAB [address] 47489 Urine Blood January 02, 2021 6:04pm Large (3+) JOEL/uL NEGATIVE MAIN LAB [address] 48394 Urine RBC October 14, 2020 11:45pm 10-20 /hpf MAIN LAB [address] [place] [address] 70150 Urine RBC January 02, 2021 6:04pm Tntc /hpf MAIN LAB [address] 06648 Urine RBC March 16, 2021 6:40pm Tntc /hpf MAIN LAB [address] 81265 Urine WBC October 14, 2020 11:45pm 0-2 /hpf MAIN LAB [address] [place] [address] 41527 Urine WBC January 02, 2021 6:04pm 3-5 /hpf MAIN LAB [address] 94527 Urine WBC March 16, 2021 6:40pm See comment /hpf Microscopic field obscured by RBC. MAIN LAB [address] 19085 Urine Squamous Epithelial Cells January 02, 2021 6:04pm 1+ /hpf MAIN LAB [address] 32152 Urine Bacteria October 14, 2020 11:45pm 1+ /hpf NONE SEEN MAIN LAB [address] [place] [address] 37467 Urine Bacteria January 02, 2021 6:04pm None seen /hpf NONE SEEN MAIN LAB [address] 12510 Urine Bacteria March 16, 2021 6:40pm See comment /hpf NONE SEEN Microscopic field obscured by RBC. MAIN LAB [address] 90137 Urine Mucus October 14, 2020 11:45pm Present MAIN LAB [address] [place] [address] 22764 Urine Culture Done October 14, 2020 11:45pm No CULTURE NOT INDICATED. MAIN LAB [address] [place] [address] 30660 Urine Culture Done January 02, 2021 6:04pm Yes URINE SPECIMEN CULTURED MAIN LAB [address] 18272 Urine Culture Done March 16, 2021 6:40pm Yes URINE SPECIMEN CULTURED MAIN LAB [address] 07022 Urine Test January 02, 2021 6:04pm Negative NEGATIVE MAIN LAB [address] 38850 Sodium Level October 14, 2020 11:38pm 138 mmol/L 137-145 MAIN LAB [address] [place] [address] 63425 Sodium Level January 02, 2021 4:44pm 141 mmol/L 137-145 MAIN LAB [address] 92660 Sodium Level January 07, 2021 5:35pm 140 mmol/L 137-145 MAIN LAB [facility] [address] [facility] [address] Sodium Level January 29, 2021 9:57pm 137 mmol/L 137-145 MAIN LAB [facility] [address] [facility] 9[address]94 Sodium Level March 16, 2021 5:34pm 137 mmol/L 137-145 MAIN LAB [address] [address] Sodium Level March 18, 2021 7:56pm 141 mmol/L 137-145 MAIN LAB [address] 33705 Sodium Level March 20, 2021 5:04pm 140 mmol/L 137-145 MAIN LAB [address] 79056 Potassium Level October 14, 2020 11:38pm 3.8 mmol/L 3.6-5.0 MAIN LAB [address] [place] [address] 23627 Potassium Level January 02, 2021 4:44pm 3.9 mmol/L 3.6-5.0 MAIN LAB [address] 88103 Potassium Level January 07, 2021 5:35pm 3.7 mmol/L 3.6-5.0 MAIN LAB [address] 04041 Potassium Level January 29, 2021 9:57pm 3.5 mmol/L 3.6-5.0 MAIN LAB [address] 51066 Potassium Level March 16, 2021 5:34pm 4.0 mmol/L 3.6-5.0 MAIN LAB [address] 73205 Potassium Level March 18, 2021 7:56pm 3.4 mmol/L 3.6-5.0 MAIN LAB [address] 48748 Potassium Level March 20, 2021 5:04pm 3.8 mmol/L 3.6-5.0 MAIN LAB [address] 74704 Chloride Level October 14, 2020 11:38pm 100 mmol/L 98-107 MAIN LAB [address] [facility] 37496 Chloride Level January 02, 2021 4:44pm 104 mmol/L 98-107 MAIN LAB [facility] [address] [facility] 265[address] Chloride Level January 07, 2021 5:35pm 103 mmol/L 98-107 MAIN LAB [facility] [address] [facility] 74335 Chloride Level January 29, 2021 9:57pm 99 mmol/L 98-107 MAIN LAB [facility] [address] [facility] 7[address] Chloride Level March 16, 2021 5:34pm 102 mmol/L 98-107 MAIN LAB [facility] [address] [facility] 033[address] Chloride Level March 18, 2021 7:56pm 102 mmol/L 98-107 MAIN LAB [facility] [address] [facility] 15697 Chloride Level March 20, 2021 5:04pm 103 mmol/L 98-107 MAIN LAB [facility] [address] [facility] [address]60 Carbon Dioxide Level October 14, 2020 11:38pm 25 mmol/L 22-30 MAIN LAB [address] [place] [address] 37346 Carbon Dioxide Level January 02, 2021 4:44pm 26 mmol/L 22-30 MAIN LAB [facility] [address] [facility] 8[address]97 Carbon Dioxide Level January 07, 2021 5:35pm 27 mmol/L 22-30 MAIN LAB [facility] [address] [facility] 7[address]20 Carbon Dioxide Level January 29, 2021 9:57pm 27 mmol/L 22-30 MAIN LAB [facility] [address] [facility] 490[address] Carbon Dioxide Level March 16, 2021 5:34pm 28 mmol/L 22-30 MAIN LAB [facility] [address] [facility] [address] Carbon Dioxide Level March 18, 2021 7:56pm 29 mmol/L 22-30 MAIN LAB [facility] [address] [facility] [address] Carbon Dioxide Level March 20, 2021 5:04pm 27 mmol/L 22-30 MAIN LAB [facility] [address] [facility] [address] Anion Gap October 14, 2020 11:38pm 13 7-16 MAIN LAB [address] [facility] [address] Anion Gap January 02, 2021 4:44pm 11 7-16 MAIN LAB [facility] [address] [facility] [address] Anion Gap January 07, 2021 5:35pm 10 7-16 MAIN LAB [facility] 133 [facility] [address] Anion Gap January 29, 2021 9:57pm 11 7-16 MAIN LAB [address] [address] Anion Gap March 16, 2021 5:34pm 7 7-16 MAIN LAB [address] [address] Anion Gap March 18, 2021 7:56pm 10 7-16 MAIN LAB [address] [address] Anion Gap March 20, 2021 5:04pm 10 7-16 MAIN [facility] [address] [address] Blood Urea Nitrogen October 14, 2020 11:38pm 15 mg/dL 7-17 MAIN LAB [address] [place] [address] Blood Urea Nitrogen January 02, 2021 4:44pm 11 mg/dL 7-17 MAIN LAB [address] [address] Blood Urea Nitrogen January 07, 2021 5:35pm 13 mg/dL 7-17 MAIN LAB [facility] [address] [facility] [address] Blood Urea Nitrogen January 29, 2021 9:57pm 13 mg/dL 7-17 MAIN LAB [address] [address] Blood Urea Nitrogen March 16, 2021 5:34pm 10 mg/dL 7-17 MAIN LAB [address] [address] Blood Urea Nitrogen March 18, 2021 7:56pm 10 mg/dL 7-17 MAIN LAB [address] [address] Blood Urea Nitrogen March 20, 2021 5:04pm 5 mg/dL 7-17 MAIN LAB [address] [address] Creatinine October 14, 2020 11:38pm 0.76 mg/dL 0.52-1.04 MAIN LAB [address] [place] [address] Creatinine January 02, 2021 4:44pm 0.76 mg/dL 0.52-1.04 MAIN LAB [address] [address] Creatinine January 07, 2021 5:35pm 0.79 mg/dL 0.52-1.04 MAIN LAB [address] [address] Creatinine January 29, 2021 9:57pm 0.84 mg/dL 0.52-1.04 MAIN LAB [address] [address] Creatinine March 16, 2021 5:34pm 0.62 mg/dL 0.52-1.04 MAIN LAB [address] [address] Creatinine March 18, 2021 7:56pm 0.66 mg/dL 0.52-1.04 MAIN LAB [address] [address] Creatinine March 20, 2021 5:04pm 0.59 mg/dL 0.52-1.04 MAIN LAB [address] [address] Glomerular Filtration Rate Calc October 14, 2020 11:38pm > 60 mL/min >60.0 MAIN LAB [address] [place] [address] Glomerular Filtration Rate Calc January 02, 2021 4:44pm > 60 mL/min >60.0 MAIN LAB [address] [address] Glomerular Filtration Rate Calc January 07, 2021 5:35pm > 60 mL/min >60.0 MAIN LAB [address] [address] Glomerular Filtration Rate Calc January 29, 2021 9:57pm > 60 mL/min >60.0 MAIN LAB [address] [address] Glomerular Filtration Rate Calc March 16, 2021 5:34pm > 60 mL/min >60.0 MAIN LAB [address] [address] Glomerular Filtration Rate Calc March 18, 2021 7:56pm > 60 mL/min >60.0 MAIN LAB [facility] 133 [facility] [address] Glomerular Filtration Rate Calc March 20, 2021 5:04pm > 60 mL/min >60.0 MAIN LAB [facility] 133 [facility] [address] Glucose Level October 14, 2020 11:38pm 88 mg/dL 70-100 MAIN LAB [address] [facility] [address] Glucose Level January 02, 2021 4:44pm 88 mg/dL 70-100 MAIN LAB [facility] [address] [facility] [address] Glucose Level January 07, 2021 5:35pm 105 mg/dL 70-100 MAIN LAB [facility] 133 [facility] [address] Glucose Level January 29, 2021 9:57pm 92 mg/dL 70-100 MAIN LAB [facility] 133 [facility] [address] Glucose Level March 16, 2021 5:34pm 90 mg/dL 70-100 MAIN LAB [facility] 133 [facility] [address] Glucose Level March 18, 2021 7:56pm 84 mg/dL 70-100 MAIN [address] [address] Glucose Level March 20, 2021 5:04pm 91 mg/dL 70-100 MAIN LAB [address] [address] Calcium Level October 14, 2020 11:38pm 9.3 mg/dL 8.4-10.2 MAIN LAB [address] [facility] [address] Calcium Level January 02, 2021 4:44pm 9.3 mg/dL 8.4-10.2 MAIN LAB [facility] 133 [facility] [address] Calcium Level January 07, 2021 5:35pm 9.6 mg/dL 8.4-10.2 MAIN LAB [facility] 133 [facility] [address] Calcium Level January 29, 2021 9:57pm 9.8 mg/dL 8.4-10.2 MAIN LAB [facility] 133 [facility] [address] Calcium Level March 16, 2021 5:34pm 9.5 mg/dL 8.4-10.2 MAIN LAB [address] [address] Calcium Level March 18, 2021 7:56pm 9.3 mg/dL 8.4-10.2 MAIN LAB [address] [address] Calcium Level March 20, 2021 5:04pm 9.4 mg/dL 8.4-10.2 MAIN LAB [address] [address] Calcium Adjusted for Albumin October 14, 2020 11:38pm 9.2 mg/dL 8.4-10.2 MAIN LAB [address] [place] [address] Calcium Adjusted for Albumin January 02, 2021 4:44pm 8.8 mg/dL 8.4-10.2 MAIN LAB [address] [address] Calcium Adjusted for Albumin January 07, 2021 5:35pm 9.3 mg/dL 8.4-10.2 MAIN [address] [address] Calcium Adjusted for Albumin March 16, 2021 5:34pm 9.4 mg/dL 8.4-10.2 MAIN LAB [address] [address] Calcium Adjusted for Albumin March 18, 2021 7:56pm 9.1 mg/dL 8.4-10.2 MAIN LAB [address] [address] Iron Level October 14, 2020 11:38pm 36 ug/dL 37-170 MAIN LAB [address] [place] [address] Total Bilirubin October 14, 2020 11:38pm 0.3 mg/dL 0.2-1.3 MAIN LAB [address] [place] [address] Total Bilirubin January 02, 2021 4:44pm 0.4 mg/dL 0.2-1.3 MAIN LAB [address] [address] Total Bilirubin January 07, 2021 5:35pm 0.4 mg/dL 0.2-1.3 MAIN LAB [address] [place] [address] Total Bilirubin March 16, 2021 5:34pm 0.4 mg/dL 0.2-1.3 MAIN LAB [address] [address] Total Bilirubin March 18, 2021 7:56pm 0.4 mg/dL 0.2-1.3 MAIN LAB [address] [address] Aspartate Amino Transf (AST/SGOT) October 14, 2020 11:38pm 55 U/L 14-36 MAIN LAB [address] [place] [address] Aspartate Amino Transf (AST/SGOT) January 02, 2021 4:44pm 39 U/L 14-36 MAIN LAB [address] [address] Aspartate Amino Transf (AST/SGOT) January 07, 2021 5:35pm 38 U/L 14-36 MAIN LAB [address] [address] Aspartate Amino Transf (AST/SGOT) March 16, 2021 5:34pm 36 U/L 14-36 MAIN LAB [address] [address] Aspartate Amino Transf (AST/SGOT) March 18, 2021 7:56pm 37 U/L 14-36 MAIN LAB [address] [address] Alanine Aminotransferase (ALT/SGPT) October 14, 2020 11:38pm 41 U/L <35 As of 09/13/19, the Reference Range for ALT/SGPT for adult patients has been updated. The Reference Range for ALT/SGPT has not been established for patients <18 years of age. MAIN LAB [address] [place] [address] Alanine Aminotransferase (ALT/SGPT) January 02, 2021 4:44pm 21 U/L <35 As of 09/13/19, the Reference Range for ALT/SGPT for adult patients has been updated. The Reference Range for ALT/SGPT has not been established for patients <18 years of age. MAIN LAB [address] [address] Alanine Aminotransferase (ALT/SGPT) January 07, 2021 5:35pm 23 U/L <35 As of 09/13/19, the Reference Range for ALT/SGPT for adult patients has been updated. The Reference Range for ALT/SGPT has not been established for patients <18 years of age. MAIN LAB [address] [address] Alanine Aminotransferase (ALT/SGPT) March 16, 2021 5:34pm 17 U/L <35 As of 09/13/19, the Reference Range for ALT/SGPT for adult patients has been updated. The Reference Range for ALT/SGPT has not been established for patients <18 years of age. MAIN LAB [address] [address] Alanine Aminotransferase (ALT/SGPT) March 18, 2021 7:56pm 19 U/L <35 As of 09/13/19, the Reference Range for ALT/SGPT for adult patients has been updated. The Reference Range for ALT/SGPT has not been established for patients <18 years of age. MAIN LAB [address] [address] Lactic Acid Level March 18, 2021 7:56pm 1.0 mmol/L 0.7-2.1 MAIN LAB [address] [address] Total Protein October 14, 2020 11:38pm 7.4 g/dL 6.3-8.2 MAIN LAB [address] [place] [address] Total Protein January 02, 2021 4:44pm 7.9 g/dL 6.3-8.2 MAIN LAB [address] [address] Total Protein January 07, 2021 5:35pm 7.7 g/dL 6.3-8.2 MAIN LAB [address] [address] Total Protein March 16, 2021 5:34pm 7.2 g/dL 6.3-8.2 MAIN LAB [address] [address] Total Protein March 18, 2021 7:56pm 7.6 g/dL 6.3-8.2 MAIN LAB [address] [address] Albumin October 14, 2020 11:38pm 4.4 g/dL 3.5-5.0 MAIN LAB [address] [place] [address] Albumin January 02, 2021 4:44pm 4.9 g/dL 3.5-5.0 MAIN LAB [address] [address] Albumin January 07, 2021 5:35pm 4.7 g/dL 3.5-5.0 MAIN LAB [address] [address] Albumin March 16, 2021 5:34pm 4.4 g/dL 3.5-5.0 MAIN LAB [address] [address] Albumin March 18, 2021 7:56pm 4.6 g/dL 3.5-5.0 MAIN LAB [address] [address] Alkaline Phosphatase October 14, 2020 11:38pm 55 U/L 38-126 MAIN LAB [address] [place] [address] Alkaline Phosphatase January 02, 2021 4:44pm 58 U/L 38-126 MAIN LAB [address] [address] Alkaline Phosphatase January 07, 2021 5:35pm 58 U/L 38-126 MAIN LAB [address] [address] Alkaline Phosphatase March 16, 2021 5:34pm 45 U/L 38-126 MAIN LAB [address] [address] Alkaline Phosphatase March 18, 2021 7:56pm 47 U/L 38-126 MAIN LAB [address] [address] Lipase October 14, 2020 11:38pm 43 U/L 23-300 MAIN LAB [address] [place] [address] Ferritin October 14, 2020 11:38pm 4.43 ng/mL 10-291 The results of this assay can be falsely decreased in patients who consume Biotin. MAIN LAB [address] [place] [address] Microbiology Results Procedure Source Result Collection Date/Time Result Date/Time Result Comment Performing Site Urine Culture Ur,Clean Catch January 02, 2021 6:40pm January 04, 2021 8:36am MAIN LAB [address] [address] Urine Culture Ur,Clean Catch March 16, 2021 7:39pm March 18, 2021 10:45am MAIN LAB [address] [address] Gram Stain Umbilicus March 16, 2021 10:27am March 17, 2021 8:17am MAIN LAB [address] [address] Routine Culture Umbilicus Staphylococcus Aureus-Mrsa March 16, 2021 10:27am March 20, 2021 8:34am MAIN LAB [address] [address] Diagnostic Imaging Reports Report Dictated Date/Time Dictated By Status Radiology Report January 02, 2021 5:42pm Megan Balderas MD completed [facility] CAT SCAN REPORT PATIENT NAME: EDUARDO [...] 16, 2021 8:09pm Tiburcio Heaton MD completed [facility] CAT SCAN REPORT PATIENT NAME: EDUARDO [...] had a laporoscopy compelted on 03/05/21, at [facility] in [place]. States she is having sharp cramping stabbing [...] [place]? No October 14, 2020 11:22pm Pt has a Living Will? No October 14, 2020 11:22pm Do we have a copy on file here at [facility] No October 14, 2020 11:22pm Pt has a Power of Kiln Burner Helper? No October 14, 2020 11:22pm Do we have a copy on file here at [facility] No October 14, 2020 11:22pm Insurance Providers Guarantor EDUARDO PAYAN Address [address] [place] [address] Contact Info. Home Phone: Payer Policy Id Coverage Id Subscriber's Name Subscriber Id Effective Date Expiration Date [facility] [id number] EDUARDO PAYAN [id number] 000 SELF PAY Self N/A Encounters Encounter Location(s) Arrival/Admit Date Discharge/Depart Date Provider(s) Departed Emergency [facility]Emergency Department October 14, 2020 10:48pm October 15, 2020 12:54am null Departed Emergency [facility]Emergency Department December 29, 2020 4:23pm December 29, 2020 7:13pm null Departed Emergency [facility]Emergency Department January 02, 2021 4:12pm January 02, 2021 7:22pm null Departed Emergency [facility]Emergency Department January 07, 2021 4:48pm January 07, 2021 6:55pm null Departed Emergency [facility] Urgent [facility] January 21, 2021 2:24pm January 21, 2021 4:51pm null Departed Emergency [facility]Emergency Department January 29, 2021 8:55pm January 29, 2021 11:08pm null Departed Emergency [facility] March 16, 2021 3:28pm March 16, 2021 10:43pm null Depart Emergency [facility]Emergency Department March 18, 2021 6:11pm March 18, 2021 9:19pm null Departed Emergency [facility]Emergency Department March 20, 2021 2:33pm March 20, [...] Provider Provider Contact Information Provider Address Out [facility] Emely Last Bakari holloway MD Work Phone: [facility] [address] [place] [phone] Chavez and will see for [place] [facility] Work Phone: [address] [place] [phone] No Pcp Mahad Chavez MD Work Phone: [facility] [address] [place] [phone] No Pcp No Pcp No Pcp [facility] Work Phone: [address] [place] [phone] No Pcp No Pcp No Pcp Future [...]
--- OUTSIDE RECORDS SUMMARY | 2022-11-20 17:47 | XMS_ITS | Continuity of Care Document ---
Author Name Unknown Address [address], [place] [address] Phone [facility] Address [address], [place] [address] Phone Care Team Providers Care Research Epidemiologist Name Role Phone PCP, of Choice Primary Care Provider Tae Tamayo Emergency Provider MD Sen Segovia Emergency Provider MD Yolanda Dial Emergency Provider MD Cory Murillo Emergency Provider MD Konstantin Villaseñor Emergency Provider [phone] PCP, Not Given Primary Care Provider KIRA Turner Emergency Provider [phone] MD Fahad Morejon Emergency Provider MARIELLA Stevens Emergency Provider MD Pierce Cowan Emergency Provider Care Teams Patient Care Team [...] Provider Active KIRA Lynn Emergency Provider Active Patient Care Team Team Status: Inactive Member Role Status Dates Not Given PCP Primary Care Provider Active Pierce Cowan MD Emergency Provider Active Visit Care Team Team Status: Inactive Member Role Status Dates of Choice PCP Primary Care Provider Active Sen Segovia MD Emergency Provider Active Visit Care Team Team Status: Inactive Member Role Status Dates of Choice PCP Primary Care Provider Active Yoladna Dial MD Emergency Provider Active Visit Care Team Team Status: Inactive Member Role Status Dates Not Given PCP Primary Care Provider Active Fahad Morejon MD Emergency Provider Active Visit Care Team Team Status: Inactive Member Role Status Dates Not Given PCP Primary Care Provider Active Azalia Stevens NP Emergency Provider Active Chief Complaint and Reason for Visit Chief Complaint POST OP CONCERN, BLE EDING PELVIC PAIN HEAVY VAG BLEEDING VAG BLEEDING LOWER ABD/PELVIC PAIN ABD PAIN ABDOMINAL COMPLAINT VAG BLEEDING VAGINAL BLEEDING, ABD PAIN ABD COMPLAINT, VAGINAL BLEEDING HEAVY VAGINAL BLEEDING,SEIZURE Allergies, Adverse Reactions, Alerts Allergen Type Severity [...] October 4:27pm Yes Active promethazine Allergy November 05 023 4:27pm Yes Active Social History Smoking Status Status Start Date End Date Date of Observa tion Never smoked tobacco (finding) November 18, 2022 6:32pm Observation Status Observation Response Date of Response Alcohol Use Yes November 18, 2022 6 :32pm alcohol intake frequency a few times a month Nolberto 2022 6:32pm Alcohol type hard liquor November 18, 2022 6 :32pm Substance/Street Drug Use No November 182022 6:32pm Substance Use Treatment No November 6:32pm substance use type former substance user November 6:32pm Smoking Status Never smoker November 18, 2022 6 :32pm Additional Data Assigned Sex Female Problems Active Problems Medical Problem Onset Date Status Abdominal pain Active Inactive/Resolved Problems Medical Problem Onset Date Status Abdominal pain, RLQ Resolved Acute cervicitis Resolved Rectovaginal fistula Resolved Dysfunctional uterine bleeding R esolved Ovarian cyst Resolved Pelvic pain Resolved Pelvic pain Resolved Pelvic pain Resolved Anemia Resolved Functional abdominal pain syndrome Resolved Diarrhea Resolved Diarrhea Resolved Gastritis Resolved MRSA (methicillin resistant Staphylococcus aureu s) infection Resolved Abnormal vaginal bleeding Resolv ed Abnormal vaginal bleeding Resolv ed Abnormal vaginal bleeding Resolv ed Anemia due to blood loss Resolve d Post-operative pain Resolved Pain, dental Resolved Pain, dental Resolved Von Willebrand disease Resolved Vaginal bleeding Resolved Vaginal bleeding Resolved Vaginal bleeding Resolved Vaginal bleeding Resolved Vaginal bleeding Resolved Iron deficiency anemia Resolved Colostomy in place Resolved Colostomy in place Resolved History of [...] 15, 2020 12:00am Novemb er 2020 5:42pm Hydrocodone-A cetaminophen Disconti nued TABLET December 29, 2020 12:00am January 07, 2021 5:04pm Cefdinir Disconti nued 300 MG PO TWICE A DAY 20 er 2020 12:00am Septem rinku 2020 9:07pm Tramadol Disconti nued 50 MG PO Q8H 10 er 2020 12:00am Septem rinku 2020 9:06pm [...] zofran Gabapentin Active 300 MG PO BEDTIME Aug t 2020 12:00am Hydrocodone-A cetaminophen Disconti nued [...] 1 TAB PO TWICE A DAY 14 be r 2020 12:00am Novemb er 2020 1:25pm Tizanidine Disconti nued 4 MG PO As Directed August 07, 2021 12:00am November 10, 2021 12:18p m Ondansetron Active 4 - 8 MG PO Q8H 8 August 07, 2021 12:00am Tranexamic Acid Active MG PO [facility] r 2021 12:00am tid for max 5 [...] co mpleted CT Abd Pel w/ Contrast November 18, 2022 6:31pm act wili CT Abd Pel w/ Contrast October 23, 2022 8:29pm co mpleted Relevant Diagnostic Tests and/or Laboratory Data Laboratory Results Test Date/Time Result Interpretation Reference Range Result Comment Performing Site White Blood Count 2022 8:10pm 5.41 1000/mm3 4.8-10.8 [facility] [id number] [address] [address] White Blood Count April 06, 2022 11:27am 3.71 1000/mm3 4.8-10.8 [facility] [id number] [address] [address] White Blood Count August 28, 2022 5:10pm 5.35 1000/mm3 4.8-10.8 [facility] [id number] [address] [address] White Blood Count September 17, 2022 12:25am 4.23 1000/mm3 4.8-10.8 [facility] [id number] [address] [address] White Blood Count October 16, 2022 4:04pm 4.29 1000/mm3 4.8-10.8 [facility] [id number] [address] [address] White Blood Count October 23, 2022 9:40pm 3.88 1000/mm3 4.8-10.8 [facility] [id number] [address] [address] White Blood Count November 05, 2022 5:10pm 4.42 1000/mm3 4.8-10.8 [facility] [id number] [address] [address] White Blood Count November 06, 2022 2:34pm 3.67 1000/mm3 4.8-10.8 [facility] [id number] [address] [address] White Blood Count November 18, 2022 5:52pm 5.37 1000/mm3 4.8-10.8 [facility] [id number] [address] [address] Red Blood Count 2022 8:10pm 4.00 M/mm3 4.20-5.40 [facility] [id number] [address] [address] Red Blood Count April 06, 2022 11:27am 3.66 M/mm3 4.20-5.40 [facility] [id number] [address] [address] Red Blood Count August 28, 2022 5:10pm 4.13 M/mm3 4.20-5.40 [facility] [id number] [address] [address] Red Blood Count September 17, 2022 12:25am 3.54 M/mm3 4.20-5.40 [facility] [id number] [address] [address] Red Blood Count October 16, 2022 4:04pm 4.38 M/mm3 4.20-5.40 [facility] [id number] [address] [address] Red Blood Count October 23, 2022 9:40pm 3.77 M/mm3 4.20-5.40 [facility] [id number] [address] [address] Red Blood Count November 05, 2022 5:10pm 4.08 M/mm3 4.20-5.40 [facility] [id number] [address] [address] Red Blood Count November 06, 2022 2:34pm 4.04 M/mm3 4.20-5.40 [facility] [id number] [address] [address] Red Blood Count November 18, 2022 5:52pm 3.87 M/mm3 4.20-5.40 [facility] [id number] [address] [address] Hemoglobin 2022 8:10pm 8.6 g/dL 12.0-16.0 [facility] [id number] [address] [address] Hemoglobin April 06, 2022 11:27am 8.5 g/dL 12.0-16.0 [facility] [id number] [address] [address] Hemoglobin August 28, 2022 5:10pm 9.2 g/dL 12.0-16.0 [facility] [id number] [address] [address] Hemoglobin September 17, 2022 12:25am 7.7 g/dL 12.0-16.0 [facility] [id number] [address] [address] Hemoglobin October 16, 2022 4:04pm 9.9 g/dL 12.0-16.0 [facility] [id number] [address] [address] Hemoglobin October 24, 2022 1:00am 7.6 g/dL 12.0-16.0 [facility] [id number] [address] [address] Hemoglobin November 05, 2022 5:10pm 9.5 g/dL 12.0-16.0 [facility] [id number] [address] [address] Hemoglobin November 06, 2022 2:34pm 9.4 g/dL 12.0-16.0 [facility] [id number] [address] [address] Hemoglobin November 18, 2022 5:52pm 9.9 g/dL 12.0-16.0 [facility] [id number] [address] [address] Hematocrit 2022 8:10pm 29.3 % 37-47 [facility] [id number] [address] [address] Hematocrit April 06, 2022 11:27am 27.6 % 37-47 [facility] [id number] [address] [address] Hematocrit August 28, 2022 5:10pm 30.8 % 37-47 [facility] [id number] [address] [address] Hematocrit September 17, 2022 12:25am 25.8 % 37-47 [facility] [id number] [address] [address] Hematocrit October 16, 2022 4:04pm 32.6 % 37-47 [facility] [id number] [address] [address] Hematocrit October 24, 2022 1:00am 25.6 % 37-47 [facility] [id number] [address] [address] Hematocrit November 05, 2022 5:10pm 31.3 % 37-47 [facility] [id number] [address] [address] Hematocrit November 06, 2022 2:34pm 31.2 % 37-47 [facility] [id number] [address] [address] Hematocrit November 18, 2022 5:52pm 31.2 % 37-47 [facility] [id number] [address] [address] Mean Corpuscular Volume 2022 8:10pm 73.3 fL 81.0-99.0 [facility] [id number] [address] [address] Mean Corpuscular Volume April 06, 2022 11:27am 75.4 fL 81.0-99.0 [facility] [id number] [address] [address] Mean Corpuscular Volume August 28, 2022 5:10pm 74.6 fL 81.0-99.0 [facility] [id number] [address] [address] Mean Corpuscular Volume September 17, 2022 12:25am 72.9 fL 81.0-99.0 [facility] [id number] [address] [address] Mean Corpuscular Volume October 16, 2022 4:04pm 74.4 fL 81.0-99.0 [facility] [id number] [address] [address] Mean Corpuscular Volume October 23, 2022 9:40pm 76.1 fL 81.0-99.0 [facility] [id number] [address] [address] Mean Corpuscular Volume November 05, 2022 5:10pm 76.7 fL 81.0-99.0 [facility] [id number] [address] [address] Mean Corpuscular Volume November 06, 2022 2:34pm 77.2 fL 81.0-99.0 [facility] [id number] [address] [address] Mean Corpuscular Volume November 18, 2022 5:52pm 80.6 fL 81.0-99.0 [facility] [id number] [address] [address] Mean Corpuscular Hemoglobin 2022 8:10pm 21.5 pg 27-31 [facility] [id number] [address] [address] Mean Corpuscular Hemoglobin April 06, 2022 11:27am 23.2 pg 27-31 [facility] [id number] [address] [address] Mean Corpuscular Hemoglobin August 28, 2022 5:10pm 22.3 pg 27-31 [facility] [id number] [address] [address] Mean Corpuscular Hemoglobin September 17, 2022 12:25am 21.8 pg 27-31 [facility] [id number] [address] [address] Mean Corpuscular Hemoglobin October 16, 2022 4:04pm 22.6 pg 27-31 [facility] [id number] [address] [address] Mean Corpuscular Hemoglobin October 23, 2022 9:40pm 22.8 pg 27-31 [facility] [id number] [address] [address] Mean Corpuscular Hemoglobin November 05, 2022 5:10pm 23.3 pg 27-31 [facility] [id number] [address] [address] Mean Corpuscular Hemoglobin November 06, 2022 2:34pm 23.3 pg 27-31 [facility] [id number] [address] [address] Mean Corpuscular Hemoglobin November 18, 2022 5:52pm 25.6 pg 27-31 [facility] [id number] [address] [address] Mean Corpuscular Hemoglobin Concent 2022 8:10pm 29.4 g/dL 33-37 [facility] [id number] [address] [address] Mean Corpuscular Hemoglobin Concent April 06, 2022 11:27am 30.8 g/dL 33-37 [facility] [id number] [address] [address] Mean Corpuscular Hemoglobin Concent August 28, 2022 5:10pm 29.9 g/dL 33-37 [facility] [id number] [address] [address] Mean Corpuscular Hemoglobin Concent September 17, 2022 12:25am 29.8 g/dL 33-37 [facility] [id number] [address] [address] Mean Corpuscular Hemoglobin Concent October 16, 2022 4:04pm 30.4 g/dL 33-37 [facility] [id number] [address] [address] Mean Corpuscular Hemoglobin Concent October 23, 2022 9:40pm 30.0 g/dL 33-37 [facility] [id number] [address] [address] Mean Corpuscular Hemoglobin Concent November 05, 2022 5:10pm 30.4 g/dL 33-37 [facility] [id number] [address] [address] Mean Corpuscular Hemoglobin Concent November 06, 2022 2:34pm 30.1 g/dL 33-37 [facility] [id number] [address] [address] Mean Corpuscular Hemoglobin Concent November 18, 2022 5:52pm 31.7 g/dL 33-37 [facility] [id number] [address] [address] Red Cell Distribution Width 2022 8:10pm 15.2 % 11.5-14.5 [facility] [id number] [address] [address] Red Cell Distribution Width April 06, 2022 11:27am 16.4 % 11.5-14.5 MA[facility] [id number] [address] [address] Red Cell Distribution Width August 28, 2022 5:10pm 14.2 % 11.5-14.5 [facility] [id number] [address] [address] Red Cell Distribution Width September 17, 2022 12:25am 14.9 % 11.5-14.5 [facility] [id number] [address] [address] Red Cell Distribution Width October 16, 2022 4:04pm 18.1 % 11.5-14.5 [facility] [id number] [address] [address] Red Cell Distribution Width October 23, 2022 9:40pm 17.5 % 11.5-14.5 [facility] [id number] [address] [address] Red Cell Distribution Width November 05, 2022 5:10pm 17.2 % 11.5-14.5 [facility] [id number] [address] [address] Red Cell Distribution Width November 06, 2022 2:34pm 17.2 % 11.5-14.5 [facility] [id number] [address] [address] Red Cell Distribution Width November 18, 2022 5:52pm 17.9 % 11.5-14.5 [facility] [id number] [address] [address] Platelet Count 2022 8:10pm 217 1000/mm3 140-440 [facility] [id number] [address] [address] Platelet Count April 06, 2022 11:27am 174 1000/mm3 140-440 [facility] [id number] [address] [address] Platelet Count August 28, 2022 5:10pm 216 1000/mm3 140-440 [facility] [id number] [address] [address] Platelet Count September 17, 2022 12:25am 198 1000/mm3 140-440 [facility] [id number] [address] [address] Platelet Count October 16, 2022 4:04pm 291 1000/mm3 140-440 [facility] [id number] [address] [address] Platelet Count October 23, 2022 9:40pm 244 1000/mm3 140-440 [facility] [id number] [address] [address] Platelet Count November 05, 2022 5:10pm 201 1000/mm3 140-440 [facility] [id number] [address] [address] Platelet Count November 06, 2022 2:34pm 175 1000/mm3 140-440 [facility] [id number] [address] [address] Platelet Count November 18, 2022 5:52pm 223 1000/mm3 140-440 [facility] [id number] [address] [address] Mean Platelet Volume 2022 8:10pm 12.9 fL 7.4-10.4 [facility] [id number] [address] [address] Mean Platelet Volume August 28, 2022 5:10pm 10.4 fL 7.4-10.4 [facility] [id number] [address] [address] Mean Platelet Volume September 17, 2022 12:25am 11.6 fL 7.4-10.4 [facility] [id number] [address] [address] Mean Platelet Volume October 16, 2022 4:04pm 10.7 fL 7.4-10.4 [facility] [id number] [address] [address] Mean Platelet Volume October 23, 2022 9:40pm 11.2 fL 7.4-10.4 [facility] [id number] [address] [address] Mean Platelet Volume November 18, 2022 5:52pm 10.4 fL 7.4-10.4 [facility] [id number] [address] [address] Neutrophils (%) (Auto) 2022 8:10pm 58.0 % 40.0-72.0 [facility] [id number] [address] [address] Neutrophils (%) (Auto) April 06, 2022 11:27am 55.7 % 40.0-72.0 [facility] [id number] [address] [address] Neutrophils (%) (Auto) August 28, 2022 5:10pm 68.4 % 40.0-72.0 [facility] [id number] [address] [address] Neutrophils (%) (Auto) September 17, 2022 12:25am 57.7 % 40.0-72.0 [facility] [id number] [address] [address] Neutrophils (%) (Auto) October 16, 2022 4:04pm 56.8 % 40.0-72.0 [facility] [id number] [address] [address] Neutrophils (%) (Auto) October 23, 2022 9:40pm 56.1 % 40.0-72.0 [facility] [id number] [address] [address] Neutrophils (%) (Auto) November 05, 2022 5:10pm 59.2 % 40.0-72.0 [facility] [id number] [address] [address] Neutrophils (%) (Auto) November 06, 2022 2:34pm 56.7 % 40.0-72.0 [facility] [id number] [address] [address] Neutrophils (%) (Auto) November 18, 2022 5:52pm 68.2 % 40.0-72.0 [facility] [id number] [address] [address] Lymphocytes (%) (Auto) 2022 8:10pm 31.4 % 17-45 [facility] [id number] [address] [address] Lymphocytes (%) (Auto) April 06, 2022 11:27am 34.0 % 17-45 [facility] [id number] [address] [address] Lymphocytes (%) (Auto) August 28, 2022 5:10pm 24.1 % 17-45 [facility] [id number] [address] [address] Lymphocytes (%) (Auto) September 17, 2022 12:25am 32.4 % 17-45 [facility] [id number] [address] [address] Lymphocytes (%) (Auto) October 16, 2022 4:04pm 35.0 % 17-45 [facility] [id number] [address] [address] Lymphocytes (%) (Auto) October 23, 2022 9:40pm 32.0 % 17-45 [facility] [id number] [address] [address] Lymphocytes (%) (Auto) November 05, 2022 5:10pm 31.2 % 17-45 [facility] [id number] [address] [address] Lymphocytes (%) (Auto) November 06, 2022 2:34pm 32.7 % 17-45 [facility] [id number] [address] [address] Lymphocytes (%) (Auto) November 18, 2022 5:52pm 22.9 % 17-45 [facility] [id number] [address] [address] Monocytes (%) (Auto) 2022 8:10pm 7.6 % 3-11 [facility] [id number] [address] [address] Monocytes (%) (Auto) April 06, 2022 11:27am 6.5 % 3-11 [facility] [id number] [address] [address] Monocytes (%) (Auto) August 28, 2022 5:10pm 5.0 % 3-11 [facility] [id number] [address] [address] Monocytes (%) (Auto) September 17, 2022 12:25am 6.9 % 3-11 [facility] [id number] [address] [address] Monocytes (%) (Auto) October 16, 2022 4:04pm 5.6 % 3-11 [facility] [id number] [address] [address] Monocytes (%) (Auto) October 23, 2022 9:40pm 7.5 % 3-11 [facility] [id number] [address] [address] Monocytes (%) (Auto) November 05, 2022 5:10pm 6.3 % 3-11 [facility] [id number] [address] [address] Monocytes (%) (Auto) November 06, 2022 2:34pm 6.3 % 3-11 [facility] [id number] [address] [address] Monocytes (%) (Auto) November 18, 2022 5:52pm 6.1 % 3-11 [facility] [id number] [address] [address] Eosinophils (%) (Auto) 2022 8:10pm 1.7 % 0-3 [facility] [id number] [address] [address] Eosinophils (%) (Auto) April 06, 2022 11:27am 2.4 % 0-3 [facility] [id number] [address] [address] Eosinophils (%) (Auto) August 28, 2022 5:10pm 1.5 % 0-3 [facility] [id number] [address] [address] Eosinophils (%) (Auto) September 17, 2022 12:25am 1.9 % 0-3 [facility] [id number] [address] [address] Eosinophils (%) (Auto) October 16, 2022 4:04pm 1.2 % 0-3 [facility] [id number] [address] [address] Eosinophils (%) (Auto) October 23, 2022 9:40pm 3.1 % 0-3 [facility] [id number] [address] [address] Eosinophils (%) (Auto) November 05, 2022 5:10pm 2.0 % 0-3 [facility] [id number] [address] [address] Eosinophils (%) (Auto) November 06, 2022 2:34pm 2.7 % 0-3 [facility] [id number] [address] [address] Eosinophils (%) (Auto) November 18, 2022 5:52pm 1.9 % 0-3 [facility] [id number] [address] [address] Basophils (%) (Auto) 2022 8:10pm 1.1 % 0-1 [facility] [id number] [address] [address] Basophils (%) (Auto) April 06, 2022 11:27am 1.1 % 0-1 [facility] [id number] [address] [address] Basophils (%) (Auto) August 28, 2022 5:10pm 0.6 % 0-1 [facility] [id number] [address] [address] Basophils (%) (Auto) September 17, 2022 12:25am 0.9 % 0-1 [facility] [id number] [address] [address] Basophils (%) (Auto) October 16, 2022 4:04pm 1.2 % 0-1 [facility] [id number] [address] [address] Basophils (%) (Auto) October 23, 2022 9:40pm 1.0 % 0-1 [facility] [id number] [address] [address] Basophils (%) (Auto) November 05, 2022 5:10pm 1.1 % 0-1 [facility] [id number] [address] [address] Basophils (%) (Auto) November 06, 2022 2:34pm 1.1 % 0-1 [facility] [id number] [address] [address] Basophils (%) (Auto) November 18, 2022 5:52pm 0.7 % 0-1 [facility] [id number] [address] [address] Immature Granulocyte % (Auto) 2022 8:10pm 0.2 % 0-1 [facility] [id number] [address] [address] Immature Granulocyte % (Auto) April 06, 2022 11:27am 0.3 % 0-1 [facility] [id number] [address] [address] Immature Granulocyte % (Auto) August 28, 2022 5:10pm 0.4 % 0-1 [facility] [id number] [address] [address] Immature Granulocyte % (Auto) September 17, 2022 12:25am 0.2 % 0-1 [facility] [id number] [address] [address] Immature Granulocyte % (Auto) October 16, 2022 4:04pm 0.2 % 0-1 [facility] [id number] [address] [address] Immature Granulocyte % (Auto) October 23, 2022 9:40pm 0.3 % 0-1 [facility] [id number] [address] [address] Immature Granulocyte % (Auto) November 05, 2022 5:10pm 0.2 % 0-1 [facility] [id number] [address] [address] Immature Granulocyte % (Auto) November 06, 2022 2:34pm 0.5 % 0-1 [facility] [id number] [address] [address] Immature Granulocyte % (Auto) November 18, 2022 5:52pm 0.2 % 0-1 [facility] [id number] [address] [address] Neutrophils # (Auto) 2022 8:10pm 3.14 1000/mm3 1.4-6.5 [facility] [id number] [address] [address] Neutrophils # (Auto) April 06, 2022 11:27am 2.07 1000/mm3 1.4-6.5 [facility] [id number] [address] [address] Neutrophils # (Auto) August 28, 2022 5:10pm 3.66 1000/mm3 1.4-6.5 [facility] [id number] [address] [address] Neutrophils # (Auto) September 17, 2022 12:25am 2.44 1000/mm3 1.4-6.5 [facility] [id number] [address] [address] Neutrophils # (Auto) October 16, 2022 4:04pm 2.44 1000/mm3 1.4-6.5 [facility] [id number] [address] [address] Neutrophils # (Auto) October 23, 2022 9:40pm 2.18 1000/mm3 1.4-6.5 [facility] [id number] [address] [address] Neutrophils # (Auto) November 05, 2022 5:10pm 2.61 1000/mm3 1.4-6.5 [facility] [id number] [address] [address] Neutrophils # (Auto) November 06, 2022 2:34pm 2.08 1000/mm3 1.4-6.5 [facility] [id number] [address] [address] Neutrophils # (Auto) November 18, 2022 5:52pm 3.66 1000/mm3 1.4-6.5 [facility] [id number] [address] [address] Lymphocytes # (Auto) 2022 8:10pm 1.70 1000/mm3 1.2-3.4 [facility] [id number] [address] [address] Lymphocytes # (Auto) April 06, 2022 11:27am 1.26 1000/mm3 1.2-3.4 [facility] [id number] [address] [address] Lymphocytes # (Auto) August 28, 2022 5:10pm 1.29 1000/mm3 1.2-3.4 [facility] [id number] [address] [address] Lymphocytes # (Auto) September 17, 2022 12:25am 1.37 1000/mm3 1.2-3.4 [facility] [id number] [address] [address] Lymphocytes # (Auto) October 16, 2022 4:04pm 1.50 1000/mm3 1.2-3.4 [facility] [id number] [address] [address] Lymphocytes # (Auto) October 23, 2022 9:40pm 1.24 1000/mm3 1.2-3.4 [facility] [id number] [address] [address] Lymphocytes # (Auto) November 05, 2022 5:10pm 1.38 1000/mm3 1.2-3.4 [facility] [id number] [address] [address] Lymphocytes # (Auto) November 06, 2022 2:34pm 1.20 1000/mm3 1.2-3.4 [facility] [id number] [address] [address] Lymphocytes # (Auto) November 18, 2022 5:52pm 1.23 1000/mm3 1.2-3.4 [facility] [id number] [address] [address] Monocytes # (Auto) 2022 8:10pm 0.41 1000/mm3 0.0-0.8 [facility] [id number] [address] [address] Monocytes # (Auto) April 06, 2022 11:27am 0.24 1000/mm3 0.0-0.8 [facility] [id number] [address] [address] Monocytes # (Auto) August 28, 2022 5:10pm 0.27 1000/mm3 0.0-0.8 [facility] [id number] [address] [address] Monocytes # (Auto) September 17, 2022 12:25am 0.29 1000/mm3 0.0-0.8 [facility] [id number] [address] [address] Monocytes # (Auto) October 16, 2022 4:04pm 0.24 1000/mm3 0.0-0.8 [facility] [id number] [address] [address] Monocytes # (Auto) October 23, 2022 9:40pm 0.29 1000/mm3 0.0-0.8 [facility] [id number] [address] [address] Monocytes # (Auto) November 05, 2022 5:10pm 0.28 1000/mm3 0.0-0.8 [facility] [id number] [address] [address] Monocytes # (Auto) November 06, 2022 2:34pm 0.23 1000/mm3 0.0-0.8 [facility] [id number] [address] [address] Monocytes # (Auto) November 18, 2022 5:52pm 0.33 1000/mm3 0.0-0.8 [facility] [id number] [address] [address] Eosinophils # (Auto) 2022 8:10pm 0.09 1000/mm3 0.0-0.7 [facility] [id number] [address] [address] Eosinophils # (Auto) April 06, 2022 11:27am 0.09 1000/mm3 0.0-0.7 [facility] [id number] [address] [address] Eosinophils # (Auto) August 28, 2022 5:10pm 0.08 1000/mm3 0.0-0.7 [facility] [id number] [address] [address] Eosinophils # (Auto) September 17, 2022 12:25am 0.08 1000/mm3 0.0-0.7 [facility] [id number] [address] [address] Eosinophils # (Auto) October 16, 2022 4:04pm 0.05 1000/mm3 0.0-0.7 [facility] [id number] [address] [address] Eosinophils # (Auto) October 23, 2022 9:40pm 0.12 1000/mm3 0.0-0.7 [facility] [id number] [address] [address] Eosinophils # (Auto) November 05, 2022 5:10pm 0.09 1000/mm3 0.0-0.7 [facility] [id number] [address] [address] Eosinophils # (Auto) November 06, 2022 2:34pm 0.10 1000/mm3 0.0-0.7 [facility] [id number] [address] [address] Eosinophils # (Auto) November 18, 2022 5:52pm 0.10 1000/mm3 0.0-0.7 [facility] [id number] [address] [address] Basophils # (Auto) 2022 8:10pm 0.06 1000/mm3 0.0-0.1 [facility] [id number] [address] [address] Basophils # (Auto) April 06, 2022 11:27am 0.04 1000/mm3 0.0-0.1 [facility] [id number] [address] [address] Basophils # (Auto) August 28, 2022 5:10pm 0.03 1000/mm3 0.0-0.1 [facility] [id number] [address] [address] Basophils # (Auto) September 17, 2022 12:25am 0.04 1000/mm3 0.0-0.1 [facility] [id number] [address] [address] Basophils # (Auto) October 16, 2022 4:04pm 0.05 1000/mm3 0.0-0.1 [facility] [id number] [address] [address] Basophils # (Auto) October 23, 2022 9:40pm 0.04 1000/mm3 0.0-0.1 [facility] [id number] [address] [address] Basophils # (Auto) November 05, 2022 5:10pm 0.05 1000/mm3 0.0-0.1 [facility] [id number] [address] [address] Basophils # (Auto) November 06, 2022 2:34pm 0.04 1000/mm3 0.0-0.1 [facility] [id number] [address] [address] Basophils # (Auto) November 18, 2022 5:52pm 0.04 1000/mm3 0.0-0.1 [facility] [id number] [address] [address] Absolute Immature Granulocyte (auto 2022 8:10pm 0.0 0-1 [facility] [id number] [address] [address] Absolute Immature Granulocyte (auto April 06, 2022 11:27am 0.0 0-1 [facility] [id number] [address] [address] Absolute Immature Granulocyte (auto August 28, 2022 5:10pm 0.0 0-1 [facility] [id number] [address] [address] Absolute Immature Granulocyte (auto September 17, 2022 12:25am 0.0 0-1 MAIN LAB [id number] [address] [address] Absolute Immature Granulocyte (auto October 16, 2022 4:04pm 0.0 0-1 MAIN LAB [id number] [address] [address] Absolute Immature Granulocyte (auto October 23, 2022 9:40pm 0.0 0-1 MAIN LAB [id number] [address] [address] Absolute Immature Granulocyte (auto November 05, 2022 5:10pm 0.0 0-1 MAIN LAB [id number] [address] [address] Absolute Immature Granulocyte (auto November 06, 2022 2:34pm 0.0 0-1 MAIN LAB [id number] [address] [address] Absolute Immature Granulocyte (auto November 18, 2022 5:52pm 0.0 0-1 MAIN LAB [id number] [address] [address] Differential Method 2022 8:10pm Automated MAIN LAB [id number] [address] [address] Differential Method April 06, 2022 11:27am Automated MAIN LAB [id number] [address] [place] [address] Differential Method August 28, 2022 5:10pm Automated MA[facility] LAB [id number] [address] [address] Differential Method September 17, 2022 12:25am Automated [facility] LAB [id number] [address] [address] Differential Method October 16, 2022 4:04pm Automated [facility] [id number] [address] [place] [address] Differential Method October 23, 2022 9:40pm Automated [facility] [id number] [address] [address] Differential Method November 05, 2022 5:10pm Automated MA[facility] [id number] [address] [address] Differential Method November 06, 2022 2:34pm Automated MA[facility] LAB [id number] [address] [address] Differential Method November 18, 2022 5:52pm Automated MAIN LAB [id number] [address] [address] Erythrocyte Sedimentatio n Rate August 28, 2022 5:10pm 10 mm/hr 0-15 MAIN LAB [id number] [address] [address] Erythrocyte Sedimentatio n Rate November 06, 2022 2:34pm 11 mm/hr 0-15 MAIN LAB [id number] [address] [address] Prothrombin Time November 06, 2022 3:21pm 10.6 SECONDS 9.6-11.2 MAIN LAB [id number] [address] [address] Prothromb Time Internationa l Ratio November 06, 2022 3:21pm 1.0 2.0-3.0 INR value valid only on patients on stabilized warfarin therapy. The recommended therapeutic range for warfarin (Coumadin) for most clinical indications is an INR of 2.0-3.0. An INR of 2.5-3.5 is recommended for patients with mechanical heart valves. MAIN LAB [id number] [address] [address] Activated Partial Thromboplast Time November 06, 2022 3:21pm 22.8 SECONDS 21.6-36.0 A target of 1.5-2.5 times the mean of the normal reference range is considered therapeutic. NOTE: APTT must NOT be used to monitor LMWH therapy. Contact [facility] for monitoring information. [facility] [id number] [address] [address] Serum Test, Qualitative April 06, 2022 11:27am Negative NEGATIVE MAIN LAB [id number] [address] [address] Sodium Level 2022 8:10pm 140 mmol/L 137-145 MAIN LAB [id number] [address] [address] Sodium Level April 06, 2022 11:27am 142 mmol/L 137-145 MAIN LAB [id number] [address] [address] Potassium Level 2022 8:10pm 3.7 mmol/L 3.6-5.0 MAIN LAB [id number] [address] [address] Potassium Level April 06, 2022 11:27am 3.7 mmol/L 3.6-5.0 MAIN LAB [id number] [address] [address] Chloride Level 2022 8:10pm 102 mmol/L 98-107 MAIN LAB [id number] [address] [address] Chloride Level April 06, 2022 11:27am 106 mmol/L 98-107 MAIN LAB [id number] [address] [address] Carbon Dioxide Level 2022 8:10pm 30 mmol/L 22-30 MAIN LAB [id number] [address] [address] Carbon Dioxide Level April 06, 2022 11:27am 27 mmol/L 22-30 MAIN LAB [id number] [address] [address] Anion Gap 2022 8:10pm 8 7-16 MAIN LAB [id number] [address] [address] Anion Gap April 06, 2022 11:27am 9 7-16 MAIN LAB [id number] [address] [address] Blood Urea Nitrogen 2022 8:10pm 8 mg/dL 7-17 MAIN LAB [id number] [address] [address] Blood Urea Nitrogen April 06, 2022 11:27am 10 mg/dL 7-17 MAIN LAB [id number] [address] [address] Creatinine 2022 8:10pm 0.66 mg/dL 0.52-1.04 MAIN LAB [id number] [address] [address] Creatinine April 06, 2022 11:27am 0.73 mg/dL 0.52-1.04 MAIN LAB [id number] [address] [address] Glomerular Filtration Rate Calc 2022 8:10pm > 60 mL/min >60.0 MAIN LAB [id number] [address] [address] Glomerular Filtration Rate Calc April 06, 2022 11:27am > 60 mL/min >60.0 MAIN LAB [id number] [address] [address] Glucose Level 2022 8:10pm 97 mg/dL 70-100 MAIN LAB [id number] [address] [address] Glucose Level April 06, 2022 11:27am 90 mg/dL 70-100 MAIN LAB [id number] [address] [address] Calcium Level 2022 8:10pm 9.2 mg/dL 8.4-10.2 MAIN LAB [id number] [address] [address] Calcium Level April 06, 2022 11:27am 8.9 mg/dL 8.4-10.2 MAIN LAB [id number] [address] [address] Calcium Adjusted for Albumin April 06, 2022 11:27am 8.7 mg/dL 8.4-10.2 MAIN LAB [id number] [address] [address] Total Bilirubin April 06, 2022 11:27am 0.5 mg/dL 0.2-1.3 MAIN LAB [id number] [address] [address] Aspartate Amino Transf (AST/SGOT) April 06, 2022 11:27am 46 U/L 14-36 MAIN LAB [id number] [address] [address] Alanine Aminotransfe rase (ALT/SGPT) April 06, 2022 11:27am 35 U/L <35 MAIN LAB [id number] [address] [address] Total Protein April 06, 2022 11:27am 7.4 g/dL 6.3-8.2 MAIN LAB [id number] [address] [address] Albumin April 06, 2022 11:27am 4.6 g/dL 3.5-5.0 MAIN LAB [id number] [address] [address] Alkaline Phosphatase April 06, 2022 11:27am 52 U/L 38-126 MAIN LAB [id number] [address] [address] Lipase April 06, 2022 11:27am 37 U/L 23-300 MAIN LAB [id number] [address] [address] Sodium Level August 28, 2022 4:05pm 137 mmol/L 137-145 MAIN LAB [id number] [address] [address] Sodium Level September 17, 2022 12:25am 140 mmol/L 137-145 MAIN LAB [id number] [address] [address] Sodium Level October 16, 2022 4:04pm 139 mmol/L 137-145 MAIN LAB [id number] [address] [address] Sodium Level October 23, 2022 9:40pm 141 mmol/L 137-145 MAIN LAB [id number] [address] [address] Sodium Level November 05, 2022 5:10pm 140 mmol/L 137-145 MAIN LAB [id number] [address] [address] Sodium Level November 06, 2022 2:34pm 141 mmol/L 137-145 MAIN LAB [id number] [address] [address] Sodium Level November 18, 2022 5:52pm 139 mmol/L 137-145 MAIN LAB [id number] [address] [address] Potassium Level August 28, 2022 4:05pm 3.9 mmol/L 3.6-5.0 MAIN LAB [id number] [address] [address] Potassium Level September 17, 2022 12:25am 3.9 mmol/L 3.6-5.0 MAIN LAB [id number] [address] [address] Potassium Level October 16, 2022 4:04pm 3.4 mmol/L 3.6-5.0 MAIN LAB [id number] [address] [address] Potassium Level October 23, 2022 9:40pm 3.7 mmol/L 3.6-5.0 MAIN LAB [id number] [address] [address] Potassium Level November 05, 2022 5:10pm 4.1 mmol/L 3.6-5.0 MAIN LAB [id number] [address] [address] Potassium Level November 06, 2022 2:34pm 3.7 mmol/L 3.6-5.0 MAIN LAB [id number] [address] [address] Potassium Level November 18, 2022 5:52pm 3.7 mmol/L 3.6-5.0 MAIN LAB [id number] [address] [address] Chloride Level August 28, 2022 4:05pm 104 mmol/L 98-107 MAIN LAB [id number] [address] [address] Chloride Level September 17, 2022 12:25am 106 mmol/L 98-107 MAIN LAB [id number] [address] [address] Chloride Level October 16, 2022 4:04pm 101 mmol/L 98-107 MAIN LAB [id number] [address] [address] Chloride Level October 23, 2022 9:40pm 105 mmol/L 98-107 MAIN LAB [id number] [address] [address] Chloride Level November 05, 2022 5:10pm 104 mmol/L 98-107 MAIN LAB [id number] [address] [address] Chloride Level November 06, 2022 2:34pm 104 mmol/L 98-107 MAIN LAB [id number] [address] [address] Chloride Level November 18, 2022 5:52pm 103 mmol/L 98-107 MAIN LAB [id number] [address] [address] Carbon Dioxide Level August 28, 2022 4:05pm 22 mmol/L 22-30 MAIN LAB [id number] [address] [address] Carbon Dioxide Level September 17, 2022 12:25am 23 mmol/L 22-30 MAIN LAB [id number] [address] [address] Carbon Dioxide Level October 16, 2022 4:04pm 23 mmol/L 22-30 MAIN LAB [id number] [address] [address] Carbon Dioxide Level October 23, 2022 9:40pm 27 mmol/L 22-30 MAIN LAB [id number] [address] [address] Carbon Dioxide Level November 05, 2022 5:10pm 25 mmol/L 22-30 MAIN LAB [id number] [address] [address] Carbon Dioxide Level November 06, 2022 2:34pm 26 mmol/L 22-30 MAIN LAB [id number] [address] [address] Carbon Dioxide Level November 18, 2022 5:52pm 28 mmol/L MAIN LAB [id number] [address] [address] Anion Gap August 28, 2022 4:05pm 11 -16 MAIN LAB [id number] [address] [address] Anion Gap September 17, 2022 12:25am 11 - MAIN LAB [id number] [address] [address] Anion Gap October 16, 2022 4:04pm 15 - MAIN LAB [id number] [address] [address] Anion Gap October 23, 2022 9:40pm 9 - MAIN LAB [id number] [address] [address] Anion Gap November 05, 2022 5:10pm 11 - MAIN LAB [id number] [address] [address] Anion Gap November 06, 2022 2:34pm 11 - MAIN LAB [id number] [address] [address] Anion Gap November 18, 2022 5:52pm 8 - MAIN LAB [id number] [address] [address] Blood Urea Nitrogen August 28, 2022 4:05pm 10 mg/dL -17 MAIN LAB [id number] [address] [address] Blood Urea Nitrogen September 17, 2022 12:25am 10 mg/dL - MAIN LAB [id number] [address] [address] Blood Urea Nitrogen October 16, 2022 4:04pm 9 mg/dL 7-17 MAIN LAB [id number] [address] [address] Blood Urea Nitrogen October 23, 2022 9:40pm 8 mg/dL 7- MAIN LAB [id number] [address] [address] Blood Urea Nitrogen November 05, 2022 5:10pm 10 mg/dL 7- MAIN LAB [id number] [address] [address] Blood Urea Nitrogen November 06, 2022 2:34pm 10 mg/dL - MAIN LAB [id number] [address] [address] Blood Urea Nitrogen November 18, 2022 5:52pm 3 mg/dL 11-28 MAIN LAB [id number] [address] [address] Creatinine August 28, 2022 4:05pm 0.58 mg/dL 0.52-1.04 MAIN LAB [id number] [address] [address] Creatinine September 17, 2022 12:25am 0.60 mg/dL 0.52-1.04 MAIN LAB [id number] [address] [address] Creatinine October 16, 2022 4:04pm 0.90 mg/dL 0.52-1.04 MAIN LAB [id number] [address] [address] Creatinine October 23, 2022 9:40pm 0.80 mg/dL 0.52-1.04 MAIN LAB [id number] [address] [address] Creatinine November 05, 2022 5:10pm 0.80 mg/dL 0.52-1.04 MAIN LAB [id number] [address] [address] Creatinine November 06, 2022 2:34pm 0.70 mg/dL 0.52-1.04 MAIN LAB [id number] [address] [address] Creatinine November 18, 2022 5:52pm 0.70 mg/dL 0.52-1.04 MAIN LAB [id number] [address] [address] Glomerular Filtration Rate Calc August 28, 2022 4:05pm > 60 mL/min >60.0 MAIN LAB [id number] [address] [address] Glomerular Filtration Rate Calc September 17, 2022 12:25am 129 mL/min >60.0 MAIN LAB [id number] [address] [address] Glomerular Filtration Rate Calc October 16, 2022 4:04pm 92 mL/min >60.0 MAIN LAB [id number] [address] [address] Glomerular Filtration Rate Calc October 23, 2022 9:40pm 106 mL/min >60.0 MAIN LAB [id number] [address] [address] Glomerular Filtration Rate Calc November 05, 2022 5:10pm 106 mL/min >60.0 MAIN LAB [id number] [address] [address] Glomerular Filtration Rate Calc November 06, 2022 2:34pm 125 mL/min >60.0 MAIN LAB [id number] [address] [address] Glomerular Filtration Rate Calc November 18, 2022 5:52pm 125 mL/min >60.0 MAIN LAB [id number] [address] [address] Glucose Level August 28, 2022 4:05pm 83 mg/dL 70-100 MAIN LAB [id number] [address] [address] Glucose Level September 17, 2022 12:25am 91 mg/dL 70-100 MAIN LAB [id number] [address] [address] Glucose Level October 16, 2022 4:04pm 92 mg/dL 70-100 MAIN LAB [id number] [address] [address] Glucose Level October 23, 2022 9:40pm 93 mg/dL 70-100 MAIN LAB [id number] [address] [address] Glucose Level November 05, 2022 5:10pm 87 mg/dL 70-100 MAIN LAB [id number] [address] [address] Glucose Level November 06, 2022 2:34pm 94 mg/dL 70-100 MAIN LAB [id number] [address] [address] Glucose Level November 18, 2022 5:52pm 87 mg/dL 70-100 MAIN LAB [id number] [address] [address] Calcium Level August 28, 2022 4:05pm 9.1 mg/dL 8.4-10.2 MAIN LAB [id number] [address] [address] Calcium Level September 17, 2022 12:25am 8.9 mg/dL 8.4-10.2 MAIN LAB [id number] [address] [address] Calcium Level October 16, 2022 4:04pm 9.9 mg/dL 8.4-10.2 MAIN LAB [id number] [address] [address] Calcium Level October 23, 2022 9:40pm 8.6 mg/dL 8.4-10.2 MAIN LAB [id number] [address] [address] Calcium Level November 05, 2022 5:10pm 8.7 mg/dL 8.4-10.2 MAIN LAB [id number] [address] [address] Calcium Level November 06, 2022 2:34pm 8.9 mg/dL 8.4-10.2 MAIN LAB [id number] [address] [address] Calcium Level November 18, 2022 5:52pm 8.6 mg/dL 8.4-10.2 MAIN LAB [id number] [address] [address] Calcium Adjusted for Albumin August 28, 2022 4:05pm 8.9 mg/dL 8.4-10.2 MAIN LAB [id number] [address] [address] Calcium Adjusted for Albumin September 17, 2022 12:25am 8.8 mg/dL 8.4-10.2 MAIN LAB [id number] [address] [address] Calcium Adjusted for Albumin October 16, 2022 4:04pm 9.2 mg/dL 8.4-10.2 MAIN LAB [id number] [address] [address] Calcium Adjusted for Albumin November 05, 2022 5:10pm 8.7 mg/dL 8.4-10.2 MAIN LAB [id number] [address] [address] Calcium Adjusted for Albumin November 06, 2022 2:34pm 8.7 mg/dL 8.4-10.2 MAIN LAB [id number] [address] [address] Calcium Adjusted for Albumin November 18, 2022 5:52pm 8.8 mg/dL 8.4-10.2 MAIN LAB [id number] [address] [address] Magnesium Level November 18, 2022 5:52pm 1.9 mg/dL 1.6-2.3 MAIN LAB [id number] [address] [address] Albumin August 28, 2022 4:05pm 4.5 g/dL 3.5-5.0 MAIN LAB [id number] [address] [address] Albumin September 17, 2022 12:25am 4.4 g/dL 3.5-5.0 MAIN LAB [id number] [address] [address] Albumin October 16, 2022 4:04pm 5.2 g/dL 3.5-5.0 MAIN LAB [id number] [address] [address] Albumin November 05, 2022 5:10pm 4.3 g/dL 3.5-5.0 MAIN LAB [id number] [address] [address] Albumin November 06, 2022 2:34pm 4.5 g/dL 3.5-5.0 MAIN LAB [id number] [address] [address] Albumin November 18, 2022 5:52pm 4.1 g/dL 3.5-5.0 MAIN LAB [id number] [address] [address] Total Protein August 28, 2022 4:05pm 7.3 g/dL 6.3-8.2 MAIN LAB [id number] [address] [address] Total Protein September 17, 2022 12:25am 7.0 g/dL 6.3-8.2 MAIN LAB [id number] [address] [address] Total Protein October 16, 2022 4:04pm 9.6 g/dL 6.3-8.2 MAIN LAB [id number] [address] [address] Total Protein November 05, 2022 5:10pm 7.2 g/dL 6.3-8.2 MAIN LAB [id number] [address] [address] Total Protein November 06, 2022 2:34pm 7.6 g/dL 6.3-8.2 MAIN LAB [id number] [address] [address] Total Protein November 18, 2022 5:52pm 6.9 g/dL 6.3-8.2 MAIN LAB [id number] [address] [address] Alkaline Phosphatase August 28, 2022 4:05pm 56 U/L 38-126 MAIN LAB [id number] [address] [address] Alkaline Phosphatase September 17, 2022 12:25am 41 U/L 38-126 MAIN LAB [id number] [address] [address] Alkaline Phosphatase October 16, 2022 4:04pm 67 U/L 38-126 MAIN LAB [id number] [address] [address] Alkaline Phosphatase November 05, 2022 5:10pm 52 U/L 38-126 MAIN LAB [id number] [address] [address] Alkaline Phosphatase November 06, 2022 2:34pm 47 U/L 38-126 MAIN LAB [id number] [address] [address] Alkaline Phosphatase November 18, 2022 5:52pm 49 U/L 38-126 MAIN LAB [id number] [address] [address] Alanine Aminotransfe rase (ALT/SGPT) August 28, 2022 4:05pm 33 U/L <35 Per Ortho Clinical Diagnostic's notification dated July 18, 2022, note that ascorbic acid concentrations of 100 mg/dL may produce a negative bias greater than 12.5%. MAIN LAB [id number] [address] [address] Alanine Aminotransfe rase (ALT/SGPT) September 17, 2022 12:25am 23 U/L <35 Per Ortho Clinical Diagnostic's notification dated July 18, 2022, note that ascorbic acid concentrations of 100 mg/dL may produce a negative bias greater than 12.5%. MAIN LAB [id number] [address] [address] Alanine Aminotransfe rase (ALT/SGPT) October 16, 2022 4:04pm 38 U/L <35 Per Ortho Clinical Diagnostic's notification dated July 18, 2022, note that ascorbic acid concentrations of 100 mg/dL may produce a negative bias greater than 12.5%. MAIN LAB [id number] [address] [address] Alanine Aminotransfe rase (ALT/SGPT) November 05, 2022 5:10pm 24 U/L <35 Per Ortho Clinical Diagnostic's notification dated July 18, 2022, note that ascorbic acid concentrations of 100 mg/dL may produce a negative bias greater than 12.5%. MAIN LAB [id number] [address] [address] Alanine Aminotransfe rase (ALT/SGPT) November 06, 2022 2:34pm 26 U/L <35 Per Ortho Clinical Diagnostic's notification dated July 18, 2022, note that ascorbic acid concentrations of 100 mg/dL may produce a negative bias greater than 12.5%. MAIN LAB [id number] [address] [address] Alanine Aminotransfe rase (ALT/SGPT) November 18, 2022 5:52pm 24 U/L <35 Per Ortho Clinical Diagnostic's notification dated July 18, 2022, note that ascorbic acid concentrations of 100 mg/dL may produce a negative bias greater than 12.5%. MAIN LAB [id number] [address] [address] Aspartate Amino Transf (AST/SGOT) August 28, 2022 4:05pm 36 U/L 14-36 MAIN LAB [id number] [address] [address] Aspartate Amino Transf (AST/SGOT) September 17, 2022 12:25am 39 U/L 14-36 MAIN LAB [id number] [address] [address] Aspartate Amino Transf (AST/SGOT) October 16, 2022 4:04pm 36 U/L 14-36 MAIN LAB [id number] [address] [address] Aspartate Amino Transf (AST/SGOT) November 05, 2022 5:10pm 29 U/L 14-36 MAIN LAB [id number] [address] [address] Aspartate Amino Transf (AST/SGOT) November 06, 2022 2:34pm 32 U/L 14-36 MAIN LAB [id number] [address] [address] Aspartate Amino Transf (AST/SGOT) November 18, 2022 5:52pm 39 U/L 14-36 MAIN LAB [id number] [address] [address] Total Bilirubin August 28, 2022 4:05pm 0.4 mg/dL 0.2-1.3 MAIN LAB [id number] [address] [address] Total Bilirubin September 17, 2022 12:25am 0.3 mg/dL 0.2-1.3 MAIN LAB [id number] [address] [address] Total Bilirubin October 16, 2022 4:04pm 0.6 mg/dL 0.2-1.3 MAIN LAB [id number] [address] [address] Total Bilirubin November 05, 2022 5:10pm 0.3 mg/dL 0.2-1.3 MAIN LAB [id number] [address] [address] Total Bilirubin November 06, 2022 2:34pm 0.4 mg/dL 0.2-1.3 MAIN LAB [id number] [address] [address] Total Bilirubin November 18, 2022 5:52pm 0.7 mg/dL 0.2-1.3 MAIN LAB [id number] [address] [address] Lipase September 17, 2022 12:25am 43 U/L 23-300 MAIN LAB [id number] [address] [address] Lipase November 05, 2022 5:10pm 55 U/L 23-300 MAIN LAB [id number] [address] [address] Lipase November 06, 2022 2:34pm 43 U/L 23-300 MAIN LAB [id number] [address] [address] Lactic Acid Level October 16, 2022 4:04pm 1.0 mmol/L 0.7-2.1 MAIN LAB [id number] [address] [address] Lactic Acid Level October 23, 2022 9:40pm 1.2 mmol/L 0.7-2.1 MAIN LAB [id number] [address] [address] Lactic Acid Level November 05, 2022 5:10pm 1.2 mmol/L 0.7-2.1 MAIN LAB [id number] [address] [address] C-Reactive Protein August 28, 2022 4:05pm 6.0 mg/L 5-10 MAIN LAB [id number] [address] [address] C-Reactive Protein October 16, 2022 4:04pm 8.2 mg/L 5-10 MAIN LAB [id number] [address] [address] C-Reactive Protein November 06, 2022 2:34pm < 5.0 mg/L 5-10 MAIN LAB [id number] [address] [address] HCG Beta Subunit November 06, 2022 2:34pm < 2.39 mIU/mL 2.39-44656 Weeks after Conception U/L 1 Week 5-502 Weeks 40-1,0003 Weeks 100-4,0004 Weeks 800-10,0005-6 Weeks 5,000-100,0007- 8 Weeks 20,000-200,0009 -12 Weeks 10,000-200,0002 nd Trimester 8,000-50,0003rd Trimester 6,000-50,000Non - Females Less than 5The results of this assay can be falsely decreased in patients who consume Biotin. MAIN LAB [id number] [place] 353288 Chlamydia trachomatis RNA August 28, 2022 7:50pm Negative Negative [facility] [id number] Neisseria gonorrhoeae RNA August 28, 2022 7:50pm Negative Negative [facility]/GC SOURCES: ENDOCERVICSourc e:CERVIXTest performed or referred by[address] [id number] Microbiology Results Procedure Source Result Collection Date/Time Result Date/Time Result Comment Performing Site Wet Prep Vaginal August 28, 2022 8:16pm MAIN LAB [id number] [address] [address] Diagnostic Imaging Reports Author [facility] Marie[facility] Authored September 17, 2022 3:57am Report Dictated Date/Time Dictated By Status Radiology Report September 17, 2022 3:57am George Dias completed [facility] CAT SCAN [...] 09/17/22 0357 09/17/22 0357 Author Ellen Bryan [facility] Authored October 16, 2022 7:24p m Report Dictated Date/Time Dictated By Status Radiology Report October 16, 2022 7:24pm Ellen Bryan MD completed [facility] CAT [...] Bryan MD dd: 10/16/22192310/16/221923 Author Stevo Douglass [facility] Authored October 23, 2022 11:4 8pm Report Dictated Date/Time Dictated By Status Radiology Report October 23, 2022 11:48pm Stevo Douglass MD completed [facility] CAT [...] and is going to have surgery on Mondaym at [facility]. PT C/O heavy vaginal bleeding since yesterday [...] Reference Range Collection Date/Time Weight 79.37 kg January 10 6:06pm Body Temperature 98.0 [degF] 97.6-99.6 December 6:06pm Heart Rate 79 /min 60-100 January 10 9:52pm Respiratory rate 16 /min 12-24 December 9:52pm Oxygen saturation by Pulse oximetry 99 [...] August 28 10:00pm Respiratory rate 16 /min 12-24 August 28, 2022 10:00pm Oxygen saturation by Pulse [...] 16, 2022 9:18pm Respiratory rate 16 /min 12-October 16, 2 023 9:18pm Oxygen saturation by [...] 24, 2022 5:35am Respiratory rate 16 /min 12-October 24, 2022 5:35am Oxygen saturation by Pulse [...] 86 mm[Hg] 50-85 November 06, 2022 3:10pm Weight 79.65 kg November 18, 2022 5:14pm Body Temperature 98.7 [degF] 97.6-99.6 November 18, 2 023 5:14pm Heart Rate 91 /min 60-100 November 18, 2022 7:21pm Respiratory rate 13 /min -November 18, 2 023 7:21pm Oxygen saturation by Pulse oximetry 98 % 95-100 November 18, 2022 7:21p m BP Systolic 140 mm[Hg] 100-140 November 18, 2022 7:01pm BP Diastolic 93 mm[Hg] 50-85 November 18, 2022 7:01pm Advance Directives Advance Directive Response Recorded Date/ Time Does patient have an Advance Directive? No 2022 7:29pm Does patient have a COLST form? No 2022 7:29pm Insurance Providers Guarantor EDUARDO PAYAN Address [address] [place] [address] Contact Info. Home Phone: Payer Policy Id Coverage Id Subscriber's Name Subscriber Id Effective Date Expiration Date [facility] [id number] EDUARDO [id number] SELF PAY Self N/A Encounters Encounter Location(s) Arrival/Admit Date Discharge/Depart Date Provider(s) [facility]-Emergency Department 2022 5:23pm 2022 9:55pm null Departed Emergency [facility]Emergency Department February 20, 2022 2:39pm February 20, 2022 3:42pm null Departed Emergency [facility]-Emergency Department March 19, 2022 2:34pm March 19, 2022 4:09pm null Departed Emergency [facility]-Emergency Department April 06, 2022 11:08am April 06, 2022 12:29pm null Depart Emergency [facility]Emergency Department August 28, 2022 1:47pm August 28, 2022 10:20pm null Departed Emergency [facility]-Emergency Department September 16, 2022 10:06pm September 17, 2022 4:32am null Departed [facility]Emer[facility] Department October 16, 2022 2:30pm October 16, 2022 9:24pm null Departed Emergency [facility]-Emergency Department October 23, 2022 7:18pm October 24, 2022 6:00am null Departed Emergency [facility]Emergency Department November 05, 2022 4:18pm November 05, 2022 8:03pm null Departed Emergency [facility]-Emergency Department November 06, 2022 1:39pm November 06, 2022 4:48pm null Departed Emergency [facility]Emergency Department November 18, 2022 4:59pm November 18, 2022 7:40pm null Functional Status Observation Response Date Recorded Living Situation Home November 18, 2022 5:50pm With Family November 18, 2022 5 :50pm Mental Status Observation Response Date Recorded Comprehension Ability Understands Concepts Novem 2021 11:53am Mood/Behavior Appropriate April 06 11:53am Anxious April 06 11:53am Comprehension Ability Understands Concepts September 172022 12:00am Speech Appropriate September 17, 2022 12 :00am Mood/Behavior Appropriate September 17, 2022 12 :00am Comprehension Ability Understands Concepts November 05, 2022 4:51pm Mood/Behavior Anxious November 05, 2022 4:51pm Comprehension Ability Understands Concepts Novem 2021 3:30pm Mood/Behavior Appropriate March 19 3:30pm Comprehension Ability Understands Concepts November 06, 2022 2:25pm Speech Appropriate November 06, 2022 2:25pm Clear November 06, 2022 2:25pm Mood/Behavior Appropriate November 06, 2022 2:25pm Anxious November 06, 2022 2:25pm Plan of Treatment Future Tests Future scheduled test information is unavailable Pending Tests Test Name Ordered Date Scheduled Date HCG Beta Subunit November 18, 2022 5:52pm Future Visits Future appointment information is unavailable Referrals to Other Providers Reason for Referral Referral Start Date Provider Provider Contact Information Provider [place] [facility] Work Phone: [address] [facility] [address] No Pcp [facility] Work Phone: [address] [facility] [address] [facility] [address] No Pcp No Pcp Not Given Not Given Not Given No Pcp Ashlie Ramos Work Phone: [address] [place] [address] No Pcp Not Given Not Given Future Procedures Procedure Name Ordered Date Scheduled Date BETA HCG, QUANT November 18, 2022 5:55pm November 18, 2022 5:52pm MAGNESIUM November 18, 2022 5:05pm November 18, 2022 5:52pm Future Medications Future medication information is unavailable Patient Instructions Chronic Pelvic Pain (DC) Abdominal Pain, Adult ED Heavy Periods (DC) Abdominal Pain, Adult ED Anemia Caused by Low Iron, A dult (DC) Abdominal Pain, Adult ED Hospital Discharge Instructions Additional Instructions Patient contact information: Primary phone:[phone] (Note to patient; Please let our registration staff know if this phone number is not correct so we can keep our systems accurate) *Regarding pending labs, you will only be called for positive/abnormal results. Negative/normal results can be found on the patient portal. Suicide Prevention: Dial [phone] for immediate access to crisis hotline.
--- OUTSIDE RECORDS SUMMARY | 2022-11-20 17:47 | XMS_ITS | Continuity of Care Document ---
Author Name Unknown Address [address] [place] [address] Phone [facility] Address [address] [place] [address] Phone Care Team Providers Care Special Assemblies Supervisor Name Role Phone PCP, of Choice Primary Care Provider Unavailabl e Chief Complaint and Reason for Visit Chief Complaint LEFT FLANK PAIN ORAL INFECTION RECTAL BLEEDING abdominal pain Allergies, Adverse Reactions, Alerts Allergen Type Severity Reaction Last Updated Verified Status haloperidol Allergy rash January 3:08pm Yes Active ketorolac Allergy anaphylaxis December 29, 2020 4:35pm Yes Active latex Allergy rash December 29 4:35pm Yes Active Penicillins Allergy hives December 29, 2020 4:35pm Yes Active prochlorperazine Allergy hives December 132020 4:35pm Yes Active Social History Smoking Status Status Start Date End Date Date of Observa tion Never smoked tobacco (finding) January 21, 2021 3:27pm Observation Status Observation Response Date of Response Alcohol Use Yes January 21 3:27pm alcohol intake frequency a few times a month Sep tember 2020 3:27pm Alcohol type hard liquor January 21 3:27pm Substance/Street Drug Use Yes 2020 3:27pm substance use type marijuana January 3:27pm Smoking Status Never smoker January 21 3:27pm Additional Data Assigned Sex Female Problems Active Problems Medical Problem Onset Date Status Pain, dental Active Inactive/Resolved Problems Medical Problem Onset Date Status Functional abdominal pain syndrome Resolved Gastritis Resolved Pain, dental Resolved Iron deficiency anemia Resolved Abdominal pain Resolved Abdominal pain Resolved Medications Medication Status Dose Units Route [...] Ferrous Sulfate Active 325 MG PO DAILY 14 October 15, 2020 2:57pm Hydrocodone- Acetaminophe n Discontin ued TABLET December 29, 2020 4:35pm January 07, 2021 5:04pm Cefdinir Active 300 MG PO TWICE A DAY 20 Sep temb er 2020 4:03pm Tramadol Active 50 MG PO Q8H 10 Janemb er 2020 4:44pm Gabapentin Active 200 MG PO DAILY January 02, 2021 5:12pm Hydrocodone- Acetaminophe n Discontin ued 1 TAB PO Q6H 9 January 02, 2021 6:26pm January 07, 2021 5:04pm Ondansetron Active 4 MG PO Q6H 10 2020 6:26pm Famotidine-C a Carb-Mag Hydrox (Pepcid Complete) 10-800-165 mg tablet,chewa ble Active 1 TAB PO DAILY January 08, 2021 1:50am Dicyclomine Discontin ued 10 MG PO .q6 prn January 08, 2021 1:51am Septem rinku 2020 3:08pm Procedures Procedure Date Performed Status CT Abd Pel w/ Contrast January 02, 2021 4:51pm completed Urine Culture January 02, 2021 completed Relevant Diagnostic Tests and/or Laboratory Data Laboratory Results Test Date/Time Result Interpretation Reference Range Result Comment Performing Site White Blood Count October 14, 2020 11:38pm 7.41 1000/mm3 4.8-10.8 [facility] [address] [place] [address] White Blood Count January 02, 2021 4:44pm 6.81 1000/mm3 4.8-10.8 [facility] [address] [address] White Blood Count January 07, 2021 5:35pm 5.33 1000/mm3 4.8-10.8 [facility] [address] [address] Red Blood Count October 14, 2020 11:38pm 4.44 M/mm3 4.20-5.40 [facility] [address] [place] [address] Red Blood Count January 02, 2021 4:44pm 4.67 M/mm3 4.20-5.40 [facility] [address] [address] Red Blood Count January 07, 2021 5:35pm 4.85 M/mm3 4.20-5.40 [facility] [address] [address] Hemoglobin October 14, 2020 11:38pm 9.2 g/dL 12.0-16.0 [facility] [address] [place] [address] Hemoglobin January 02, 2021 4:44pm 10.4 g/dL 12.0-16.0 [facility] [address] [address] Hemoglobin January 07, 2021 5:35pm 10.8 g/dL 12.0-16.0 [facility] [address] [address] Hematocrit October 14, 2020 11:38pm 30.6 % 37-47 [facility] [address] [place] [address]26 Hematocrit January 02, 2021 4:44pm 35.2 % 37-47 [facility] [address] [address] Hematocrit January 07, 2021 5:35pm 36.3 % 37-47 [facility] [address] [address] Mean Corpuscular Volume October 14, 2020 11:38pm 68.9 fL 81.0-99.0 [facility] [address] [place] [address] Mean Corpuscular Volume January 02, 2021 4:44pm 75.4 fL 81.0-99.0 [facility] [address] [address] Mean Corpuscular Volume January 07, 2021 5:35pm 74.8 fL 81.0-99.0 [facility] [address] [address] Mean Corpuscular Hemoglobin October 14, 2020 11:38pm 20.7 pg 27-31 [facility] [address] [place] [address]18 Mean Corpuscular Hemoglobin January 02, 2021 4:44pm 22.3 pg 27-31 [facility] [address] [address] Mean Corpuscular Hemoglobin January 07, 2021 5:35pm 22.3 pg 27-31 [facility] [address] [address] Mean Corpuscular Hemoglobin Concent October 14, 2020 11:38pm 30.1 g/dL -37 [facility] [address] [place] [address] 00746 Mean Corpuscular Hemoglobin Concent January 02, 2021 4:44pm 29.5 g/dL 33-37 [facility] [address] [address] Mean Corpuscular Hemoglobin Concent January 07, 2021 5:35pm 29.8 g/dL 33-37 [facility] [address] [address] Red Cell Distribution Width October 14, 2020 11:38pm 16.8 % 11.5-14.5 [facility] [address] [place] [address] 11064 Red Cell Distribution Width January 02, 2021 4:44pm 19.4 % 11.5-14.5 [facility] [address] [address] Red Cell Distribution Width January 07, 2021 5:35pm 18.6 % 11.5-14.5 [facility] [address] [address] Platelet Count October 14, 2020 11:38pm 250 1000/mm3 140-440 [facility] [address] [place] [address]807 Platelet Count January 02, 2021 4:44pm 216 1000/mm3 140-440 [facility] [address] [address] Platelet Count January 07, 2021 5:35pm 240 1000/mm3 140-440 [facility] [address] [address] Mean Platelet Volume October 14, 2020 11:38pm 10.6 fL 7.4-10.4 [facility] [address] [place] [address] 29597 Mean Platelet Volume January 02, 2021 4:44pm 10.7 fL 7.4-10.4 [facility] [address] [address] Mean Platelet Volume January 07, 2021 5:35pm 11.3 fL 7.4-10.4 [facility] [address] [address] Neutrophils (%) (Auto) October 14, 2020 11:38pm 60.3 % 40.0-72.0 MA[facility] [address] [place] [address]102 Neutrophils (%) (Auto) January 02, 2021 4:44pm 64.3 % 40.0-72.0 MA[facility] [address] [address] Neutrophils (%) (Auto) January 07, 2021 5:35pm 51.4 % 40.0-72.0 MA[facility] [address] [address] Lymphocytes (%) (Auto) October 14, 2020 11:38pm 29.0 % 17-45 [facility] [address] [place] [address] 9[address]68 Lymphocytes (%) (Auto) January 02, 2021 4:44pm 26.3 % 17-45 [facility] [address] [address] Lymphocytes (%) (Auto) January 07, 2021 5:35pm 37.7 % 17-45 [facility] [address] [address] Monocytes (%) (Auto) October 14, 2020 11:38pm 8.2 % 3-11 [facility] [address] [place] [address]50 Monocytes (%) (Auto) January 02, 2021 4:44pm 6.2 % 3-11 [facility] [address] [address] Monocytes (%) (Auto) January 07, 2021 5:35pm 6.0 % 3-11 [facility] [address] [address] Eosinophils (%) (Auto) October 14, 2020 11:38pm 1.1 % 0-3 [facility] [address] [place] [address] 40384 Eosinophils (%) (Auto) January 02, 2021 4:44pm 2.2 % 0-3 [facility] [address] [address] Eosinophils (%) (Auto) January 07, 2021 5:35pm 3.2 % 0-3 MA[facility] [address] [address] Basophils (%) (Auto) October 14, 2020 11:38pm 1.3 % 0-1 [facility] [address] [place] [address] 36907 Basophils (%) (Auto) January 02, 2021 4:44pm 0.9 % 0-1 [facility] [address] [address] Basophils (%) (Auto) January 07, 2021 5:35pm 1.5 % 0-1 [facility] [address] [address] Immature Granulocyte % (Auto) October 14, 2020 11:38pm 0.1 % 0-1 [facility] [address] [place] [address] Immature Granulocyte % (Auto) January 02, 2021 4:44pm 0.1 % 0-1 [facility] [address] [address] Immature Granulocyte % (Auto) January 07, 2021 5:35pm 0.2 % 0-1 [facility] [address] [address] Neutrophils # (Auto) October 14, 2020 11:38pm 4.46 1000/mm3 1.4-6.5 [facility] [address] [place] [address]42 Neutrophils # (Auto) January 02, 2021 4:44pm 4.38 1000/mm3 1.4-6.5 [facility] [address] [address] Neutrophils # (Auto) January 07, 2021 5:35pm 2.74 1000/mm3 1.4-6.5 MA[facility] [address] [address] Lymphocytes # (Auto) October 14, 2020 11:38pm 2.15 1000/mm3 1.2-3.4 [facility] [address] [place] [address] Lymphocytes # (Auto) January 02, 2021 4:44pm 1.79 1000/mm3 1.2-3.4 [facility] [address] [address] Lymphocytes # (Auto) January 07, 2021 5:35pm 2.01 1000/mm3 1.2-3.4 [facility] [address] [address] Monocytes # (Auto) October 14, 2020 11:38pm 0.61 1000/mm3 0.0-0.8 [facility] [address] [place] [address]68 Monocytes # (Auto) January 02, 2021 4:44pm 0.42 1000/mm3 0.0-0.8 [facility] [address] [address] Monocytes # (Auto) January 07, 2021 5:35pm 0.32 1000/mm3 0.0-0.8 [facility] [address] [address] Eosinophils # (Auto) October 14, 2020 11:38pm 0.08 1000/mm3 0.0-0.7 [facility] [address] [place] [address]82 Eosinophils # (Auto) January 02, 2021 4:44pm 0.15 1000/mm3 0.0-0.7 [facility] [address] [address] Eosinophils # (Auto) January 07, 2021 5:35pm 0.17 1000/mm3 0.0-0.7 [facility] [address] [address] Basophils # (Auto) October 14, 2020 11:38pm 0.10 1000/mm3 0.0-0.1 [facility] [address] [place] [address] 35248 Basophils # (Auto) January 02, 2021 4:44pm 0.06 1000/mm3 0.0-0.1 [facility] [address] [address] Basophils # (Auto) January 07, 2021 5:35pm 0.08 1000/mm3 0.0-0.1 [facility] [address] [address] Absolute Immature Granulocyte (auto October 14, 2020 11:38pm 0.0 0-1 [facility] [address] [place] [address]471 Absolute Immature Granulocyte (auto January 02, 2021 4:44pm 0.0 0-1 [facility] [address] [address] Absolute Immature Granulocyte (auto January 07, 2021 5:35pm 0.0 0-1 [facility] [address] [address] Differential Method October 14, 2020 11:38pm Automated [facility] [address] [place] [address]41 Differential Method January 02, 2021 4:44pm Automated [facility] [address] [address] Differential Method January 07, 2021 5:35pm Automated [facility] [address] [address] Differential Pathologist's Review October 14, 2020 11:38pm See comment No comparison data on file at [facility]. Microcytic hypochromic anemia, consistent with iron deficiency.S veronica reviewed by pathologist for quality assurance nurse.Hair Mello MD/08/02 [facility] [address] [place] [address]69 Prothrombin Time October 14, 2020 11:38pm 10.8 SECONDS 9.6-11.2 [facility] [address] [place] [address]392 Prothromb Time International Ratio October 14, 2020 11:38pm 1.1 2.0-3.0 INR value valid only on patients on stabilized warfarin therapy. The recommended therapeutic range for warfarin (Coumadin) for most clinical indications is an INR of 2.0-3.0. An INR of 2.5-3.5 is recommended for patients with mechanical heart valves. MAIN LAB [address] [place] [address] Activated Partial Thromboplast Time October 14, 2020 11:38pm 26.1 SECONDS 21.6-36.0 A target of 1.5-2.5 times the mean of the normal reference range is considered therapeutic. NOTE: APTT must NOT be used to monitor LMWH therapy. Contact [facility] for monitoring information. MAIN [facility] [address] [place] [address]95 Urine Color January 02, 2021 6:04pm Lauren MA[facility] [address] [address] Urine Clarity January 02, 2021 6:04pm very cloudy [facility] [address] [address] Urine pH January 02, 2021 6:04pm 6.0 [facility] [address] [address] Urine Specific Clayton January 02, 2021 6:04pm 1.015 MA[facility] [address] [address]367 Urine Protein January 02, 2021 6:04pm 100 (2+) mg/dL NEGATIVE [facility] [address] [address] Urine Glucose (UA) January 02, 2021 6:04pm Normal mg/dL NORMAL [facility] [address] [address]166 Urine Ketones January 02, 2021 6:04pm Negative NEGATIVE [facility] [address] [address] Urine Nitrite January 02, 2021 6:04pm Negative Negative [facility] [address] [address] Urine Bilirubin January 02, 2021 6:04pm Negative mg/dL NEGATIVE [facility] [address] [address]885 Urine Urobilinogen January 02, 2021 6:04pm Normal mg/dL NORMAL [facility] [address] [address] Urine Leukocyte Esterase January 02, 2021 6:04pm Moderate (2+) WBC/uL NEGATIVE [facility] [address] [address] Urine Blood January 02, 2021 6:04pm Large (3+) JOEL/uL NEGATIVE [facility] [address] 39160 Urine RBC October 14, 2020 11:45pm 10-20 /hpf [facility] [address] [place] [address] 85049 Urine RBC January 02, 2021 6:04pm Tntc /hpf [facility] [address] [address] Urine WBC October 14, 2020 11:45pm 0-2 /hpf [facility] [address] [place] [address] 16326 Urine WBC January 02, 2021 6:04pm 3-5 /hpf [facility] [address] 6[address] Urine Squamous Epithelial Cells January 02, 2021 6:04pm 1+ /hpf [facility] [address] [address]60 Urine Bacteria October 14, 2020 11:45pm 1+ /hpf NONE SEEN [facility] [address] [place] [address] 40762 Urine Bacteria January 02, 2021 6:04pm None seen /hpf NONE SEEN [facility] [address] [address] Urine Mucus October 14, 2020 11:45pm Present [facility] [address] [place] [address] 85783 Urine Culture Done October 14, 2020 11:45pm No CULTURE NOT INDICATED. MA[facility] [address] [place] [address] 08231 Urine Culture Done January 02, 2021 6:04pm Yes URINE SPECIMEN CULTURED [facility] [address] [address] Urine Test January 02, 2021 6:04pm Negative NEGATIVE [facility] [address] [address] Sodium Level October 14, 2020 11:38pm 138 mmol/L 137-145 [facility] [address] [place] [address] 87803 Sodium Level January 02, 2021 4:44pm 141 mmol/L 137-145 [facility] [address] 18155 Sodium Level January 07, 2021 5:35pm 140 mmol/L 137-145 MA[facility] [address] [place] [address] Potassium Level October 14, 2020 11:38pm 3.8 mmol/L 3.6-5.0 [facility] [address] [place] [address] 21861 Potassium Level January 02, 2021 4:44pm 3.9 mmol/L 3.6-5.0 [facility] [address] [address] Potassium Level January 07, 2021 5:35pm 3.7 mmol/L 3.6-5.0 [facility] [address] [address] Chloride Level October 14, 2020 11:38pm 100 mmol/L 98-107 [facility] [address] [place] [address] 67012 Chloride Level January 02, 2021 4:44pm 104 mmol/L 98-107 [facility] [address] 78349 Chloride Level January 07, 2021 5:35pm 103 mmol/L 98-107 [facility] [address] [address]447 Carbon Dioxide Level October 14, 2020 11:38pm 25 mmol/L 22-30 [facility] [address] [place] [address] 16413 Carbon Dioxide Level January 02, 2021 4:44pm 26 mmol/L 22-30 [facility] [address] 84089 Carbon Dioxide Level January 07, 2021 5:35pm 27 mmol/L 22-30 [facility] [address] [address] Anion Gap October 14, 2020 11:38pm 13 7-16 [facility] [address] [place] [address]1059 Anion Gap January 02, 2021 4:44pm 11 7-16 [facility] [address] 9[address]64 Anion Gap January 07, 2021 5:35pm 10 7-16 [facility] [address] 75363 Blood Urea Nitrogen October 14, 2020 11:38pm 15 mg/dL 7-17 [facility] [address] [place] [address] 53126 Blood Urea Nitrogen January 02, 2021 4:44pm 11 mg/dL 7-17 [facility] [address] 48269 Blood Urea Nitrogen January 07, 2021 5:35pm 13 mg/dL 7- [facility] [address] [address] Creatinine October 14, 2020 11:38pm 0.76 mg/dL 0.52-1.04 [facility] [address] [place] [address] 83884 Creatinine January 02, 2021 4:44pm 0.76 mg/dL 0.52-1.04 [facility] [address] [address] Creatinine January 07, 2021 5:35pm 0.79 mg/dL 0.52-1.04 [facility] [address] [address]57 Glomerular Filtration Rate Calc October 14, 2020 11:38pm > 60 mL/min >60.0 [facility] [address] [place] [address] 68090 Glomerular Filtration Rate Calc January 02, 2021 4:44pm > 60 mL/min >60.0 MA[facility] [address] [address]447 Glomerular Filtration Rate Calc January 07, 2021 5:35pm > 60 mL/min >60.0 [facility] [address] 95136 Glucose Level October 14, 2020 11:38pm 88 mg/dL 70-100 [facility] [address] [place] [address] 39531 Glucose Level January 02, 2021 4:44pm 88 mg/dL 70-100 [facility] [address] 98282 Glucose Level January 07, 2021 5:35pm 105 mg/dL 70-100 [facility] [address] [address] Calcium Level October 14, 2020 11:38pm 9.3 mg/dL 8.4-10.2 [facility] [address] [place] [address] 38487 Calcium Level January 02, 2021 4:44pm 9.3 mg/dL 8.4-10.2 [facility] [address] [address] Calcium Level January 07, 2021 5:35pm 9.6 mg/dL 8.4-10.2 [facility] [address] [address]86 Calcium Adjusted for Albumin October 14, 2020 11:38pm 9.2 mg/dL 8.4-10.2 [facility] [address] [place] [address] 60139 Calcium Adjusted for Albumin January 02, 2021 4:44pm 8.8 mg/dL 8.4-10.2 [facility] [address] [address]645 Calcium Adjusted for Albumin January 07, 2021 5:35pm 9.3 mg/dL 8.4-10.2 [facility] [address] [address] Iron Level October 14, 2020 11:38pm 36 ug/dL 37-170 [facility] [address] [place] [address] 62142 Total Bilirubin October 14, 2020 11:38pm 0.3 mg/dL 0.2-1.3 [facility] [address] [place] [address] 18493 Total Bilirubin January 02, 2021 4:44pm 0.4 mg/dL 0.2-1.3 [facility] [address] [address]272 Total Bilirubin January 07, 2021 5:35pm 0.4 mg/dL 0.2-1.3 [facility] [address] [address] Aspartate Amino Transf (AST/SGOT) October 14, 2020 11:38pm 55 U/L 14-36 MA[facility] [address] [place] [address] 97646 Aspartate Amino Transf (AST/SGOT) January 02, 2021 4:44pm 39 U/L 14-36 MA[facility] [address] [address] Aspartate Amino Transf (AST/SGOT) January 07, 2021 5:35pm 38 U/L 14-36 MA[facility] [address] [address] Alanine Aminotransferase (ALT/SGPT) October 14, 2020 11:38pm 41 U/L <35 As of 09/13/19, the Reference Range for ALT/SGPT for adult patients has been updated. The Reference Range for ALT/SGPT has not been established for patients <18 years of age. MAIN LAB [address] [place] [address]292 Alanine Aminotransferase (ALT/SGPT) January 02, 2021 4:44pm 21 U/L <35 As of 09/13/19, the Reference Range for ALT/SGPT for adult patients has been updated. The Reference Range for ALT/SGPT has not been established for patients <18 years of age. MAIN LAB [address] [address] Alanine Aminotransferase (ALT/SGPT) January 07, 2021 5:35pm 23 U/L <35 As of 09/13/19, the Reference Range for ALT/SGPT for adult patients has been updated. The Reference Range for ALT/SGPT has not been established for patients <18 years of age. MAIN LAB [address] [address] Total Protein October 14, 2020 11:38pm 7.4 g/dL 6.3-8.2 [facility] [address] [place] [address] 60925 Total Protein January 02, 2021 4:44pm 7.9 g/dL 6.3-8.2 MA[facility] [address] [address]204 Total Protein January 07, 2021 5:35pm 7.7 g/dL 6.3-8.2 [facility] [address] [address] Albumin October 14, 2020 11:38pm 4.4 g/dL 3.5-5.0 [facility] [address] [place] [address] 22938 Albumin January 02, 2021 4:44pm 4.9 g/dL 3.5-5.0 [facility] [address] [address]195 Albumin January 07, 2021 5:35pm 4.7 g/dL 3.5-5.0 [facility] [address] 18006 Alkaline Phosphatase October 14, 2020 11:38pm 55 U/L 38-126 MA[facility] [address] [place] [address] 53935 Alkaline Phosphatase January 02, 2021 4:44pm 58 U/L 38-126 MA[facility] [address] [address]174 Alkaline Phosphatase January 07, 2021 5:35pm 58 U/L 38-126 MA[facility] LAB [facility] [address] [facility] [address] Lipase October 14, 2020 11:38pm 43 U/L 23-300 MAIN [facility] [address] [place] [address] 36136 Ferritin October 14, 2020 11:38pm 4.43 ng/mL 10-291 The results of this assay can be falsely decreased in patients who consume Biotin. MAIN LAB [address] [place] [address]72 Microbiology Results Procedure Source Result Collection Date/Time Result Date/Time Result Comment Performing Site Urine Culture Ur,Clean Catch January 02, 2021 6:40pm January 04, 2021 8:36am [address] [address] Diagnostic Imaging Reports Report Dictated Date/Time Dictated By Status Radiology Report January 02, 2021 5:42pm Megan Balderas MD completed [facility] CAT SCAN REPORT PATIENT NAME: [...] 84 mm[Hg] 50-85 January 21, 2021 3:08pm Advance Directives Advance Directive Response Recorded Date/ Time Does patient have an Advanced Directive? No October 14, 2020 11:22pm Do we have a copy on file here at [facility]? No October 14, 2020 11:22pm Pt has a Living Will? No October 14, 2020 11:22pm Do we have a copy on file here at [facility]? No October 14, 2020 11:22pm Pt has a Power of Tunnel Elastic Operator Chainstitch? No October 14, 2020 11:22pm Do we have a copy on file here at [facility]? No October 14, 2020 11:22pm Insurance Providers Guarantor EDUARDO PAYAN Address [address] [address] Contact Info. Home Phone: Payer Policy Id Coverage Id Subscriber's Name Subscriber Id Effective Date Expiration Date [facility] [id number] EDUARDO PAYAN [id number] 000 SELF PAY Self N/A Encounters Encounter [...] 07, 2021 6:55pm null Departed Emergency [facility] Urgent [facility] January 21, 2021 2:24pm January 21, 2021 4:51pm null Functional Status Observation Response Date Recorded Living Situation Home January 21, 2021 3:27pm With Family January 21 3:27pm Mental Status Observation Response Date Recorded Comprehension Ability Understands Concepts Augus t 2020 5:40pm Mood/Behavior Anxious January 07 5:40pm Comprehension Ability Understands Concepts Augus 2020 4:30pm [...] Address Pcp No Pcp No Pcp No Pcp No Pcp No Future Procedures Future procedure information is unavailable Future Medications Future medication information is unavailable Patient Instructions Anemia Caused by Low Iron, A dult (DC) Gastritis (DC) Dental Pain (DC) Severe Abdominal Pain, Adult (DC) Nausea and Vomiting, Adult ( DC) Hospital Discharge Instructions Additional Instructions will treat for presumed infection with cefdinir twice daily for 10 days. This has been called in. Follow up with [facility] next week as planned. Tramadol along with tylenol as needed for severe pain. Caution as this will cause additional sedation with the other medications you are taking. Only take if needed.
--- OUTSIDE RECORDS SUMMARY | 2022-11-20 17:47 | XMS_ITS | Continuity of Care Document ---
Author Name Unknown Address [address] [place] [address] Phone [facility] Address [address] [place] [address] Phone Care Team Providers Care Box Office Attendant Name Role Phone PCP, of Choice Primary Care Provider Unavailabl e Chief Complaint and Reason for Visit Chief Complaint LEFT FLANK PAIN ORAL INFECTION Allergies, Adverse Reactions, Alerts Allergen Type Severity Reaction Last Updated Verified Status ketorolac Allergy anaphylaxis December 29, 2020 4:35pm Yes Active latex Allergy rash December 29, 021 4:35pm Yes Active Penicillins Allergy hives December 29, 2020 4:35pm Yes Active prochlorperazine Allergy hives December 132020 4:35pm Yes Active Social History Smoking Status Status Start Date End Date Date of Observa tion Never smoked tobacco (finding) December 29, 2020 5:47pm Observation Status Observation Response Date of Response Alcohol Use Yes December 29 5:47pm alcohol intake frequency a few times a month Dec 5:47pm Substance/Street Drug Use Yes December 29, 2020 5:47pm substance use type marijuana December 29, 2020 5:47pm Smoking Status Never smoker December 29 5:47pm Additional Data Assigned Sex Female Problems Active Problems Medical Problem Onset Date Status Pain, dental Active Inactive/Resolved Problems Medical Problem Onset Date Status Gastritis Resolved Iron deficiency anemia Resolved Medications Medication [...] cetaminophen Active TABLET December 29, 2020 4:35pm Relevant Diagnostic Tests and/or Laboratory Data Laboratory Results Test Date/Time Result Interpretation Reference Range Result Comment Performing Site White Blood Count October 14, 2020 11:38pm 7.41 1000/mm3 4.8-10.[address] [facility] [id number] Red Blood Count October 14, 2020 11:38pm 4.44 M/mm3 4.20-5.40 MA[facility] [address] [place] [address] 82087 Hemoglobin October 14, 2020 11:38pm 9.2 g/dL 12.0-16.[address] [facility] [address] Hematocrit October 14, 2020 11:38pm 30.6 % 37-[address] [place] [address] 36459 Mean Corpuscular Volume October 14, 2020 11:38pm 68.9 fL 81.0-99.[address] [place] [address]1444 Mean Corpuscular Hemoglobin October 14, 2020 11:38pm 20.7 pg 27-[address] [facility] [address] Mean Corpuscular Hemoglobin Concent October 14, 2020 11:38pm 30.1 g/dL 33-[address] [facility] [address] Red Cell Distribution Width October 14, 2020 11:38pm 16.8 % 11.5-14.[address] [facility] [address] Platelet Count October 14, 2020 11:38pm 250 1000/mm3 140-[address] [facility] [address] Mean Platelet Volume October 14, 2020 11:38pm 10.6 fL 7.4-10.4 MAIN LAB [address] [facility] [place] [address] Neutrophils (%) (Auto) October 14, 2020 11:38pm 60.3 % 40.0-72.[address] MA[facility] [address] [place] [address] 78689 Lymphocytes (%) (Auto) October 14, 2020 11:38pm 29.0 % 17-45 [address] [facility] [address] [place] [address] 52578 Monocytes (%) (Auto) October 14, 2020 11:38pm 8.2 % 3-11 [address] [place] [address] 16150 Eosinophils (%) (Auto) October 14, 2020 11:38pm 1.1 % 0-[address] [facility] [place] [address] 19520 Basophils (%) (Auto) October 14, 2020 11:38pm 1.3 % 0-[address] [facility] [place] [address] 67046 Immature Granulocyte % (Auto) October 14, 2020 11:38pm 0.1 % 0-[address] [facility] [address] [place] [address] 30292 Neutrophils # (Auto) October 14, 2020 11:38pm 4.46 1000/mm3 1.4-6.5 MA[facility] [address] [place] [address] 34819 Lymphocytes # (Auto) October 14, 2020 11:38pm 2.15 1000/mm3 1.2-3.4 MA[facility] [address] [place] [address] 10793 Monocytes # (Auto) October 14, 2020 11:38pm 0.61 1000/mm3 0.0-0.8 MA[facility] [address] [place] [address] 10378 Eosinophils # (Auto) October 14, 2020 11:38pm 0.08 1000/mm3 0.0-0.7 MA[facility] [address] [place] [address] 44316 Basophils # (Auto) October 14, 2020 11:38pm 0.10 1000/mm3 0.0-0.1 MA[facility] [address] [place] [address] 93017 Absolute Immature Granulocyte (auto October 14, 2020 11:38pm 0.0 0-[address] [facility] [address] [place] [address] 63053 Differential Method October 14, 2020 11:38pm Automated MAIN LAB [address] [place] [address] 10510 Differential Pathologist's Review October 14, 2020 11:38pm See comment No comparison data on file at [facility]. 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 The recommended therapeutic range for warfarin (Coumadin) for most clinical indications is an INR of 2.0-3.0. An INR of 2.5-3.5 is recommended for patients with mechanical heart valves. MAIN LAB [address] [place] [address] 00025 Activated Partial Thromboplast Time October 14, 2020 11:38pm 26.1 SECONDS 21.6-36.0 A target of 1.5-2.5 times the mean of the normal reference range is considered therapeutic. NOTE: APTT must NOT be used to monitor LMWH therapy. Contact [facility] Pharm[facility] for monitoring information. MAIN LAB [address] [place] [address] 24004 Urine RBC October 14, 2020 11:45pm 10-20 /hpf MAIN LAB [address] [place] [address] 24870 Urine WBC October 14, 2020 11:45pm 0-2 /hpf MAIN LAB [address] [place] [address] 77682 Urine Bacteria October 14, 2020 11:45pm 1+ /hpf NONE SEEN MAIN LAB [address] [place] [address] 08427 Urine Mucus October 14, 2020 11:45pm Present MAIN LAB [address] [place] [address] 02489 Urine Culture Done October 14, 2020 11:45pm No CULTURE NOT INDICATED. MAIN LAB [address] [place] [address] 6[address]10 Sodium Level October 14, 2020 11:38pm 138 mmol/L 137-145 [facility] [address] [place] [address] 06207 Potassium Level October 14, 2020 11:38pm 3.8 mmol/L 3.6-5.[address] [facility] [address] [place] [address] 43979 Chloride Level October 14, 2020 11:38pm 100 mmol/L 98-107 MA[facility] [address] [place] [address] 32892 Carbon Dioxide Level October 14, 2020 11:38pm 25 mmol/L 22-30 MA[facility] [address] [place] [address] 75133 Anion Gap October 14, 2020 11:38pm 13 7-16 MA[facility] [address] [place] [address] 53668 Blood Urea Nitrogen October 14, 2020 11:38pm 15 mg/dL 7-17 MA[facility] [address] [place] [address] 87138 Creatinine October 14, 2020 11:38pm 0.76 mg/dL 0.52-1.04 MA[facility] [address] [place] [address] 56832 Glomerular Filtration Rate Calc October 14, 2020 11:38pm > 60 mL/min >60.[address] [place] [address] 22129 Glucose Level October 14, 2020 11:38pm 88 mg/dL 70-[address] [place] [address] 78494 Calcium Level October 14, 2020 11:38pm 9.3 mg/dL 8.4-10.[address] [place] [address] 80716 Calcium Adjusted for Albumin October 14, 2020 11:38pm 9.2 mg/dL 8.4-10.[address] [place] [address] 40534 Iron Level October 14, 2020 11:38pm 36 ug/dL 37-170 [facility] [address] [place] [address] 53720 Total Bilirubin October 14, 2020 11:38pm 0.3 mg/dL 0.2-1.[address] [place] [address] 91581 Aspartate Amino Transf (AST/SGOT) October 14, 2020 11:38pm 55 U/L 14-36 [address] [place] [address] 29314 Alanine Aminotransferase (ALT/SGPT) October 14, 2020 11:38pm 41 U/L <35 As of 09/13/19, the Reference Range for ALT/SGPT for adult patients has been updated. The Reference Range for ALT/SGPT has not been established for patients <18 years of age. MAIN LAB [address] [facility] [address] Total Protein October 14, 2020 11:38pm 7.4 g/dL 6.3-8.[address] [facility] 16687 Albumin October 14, 2020 11:38pm 4.4 g/dL 3.5-5.[address] [facility] 24839 Alkaline Phosphatase October 14, 2020 11:38pm 55 U/L 38-[address] [facility] 46322 Lipase October 14, 2020 11:38pm 43 U/L 23-[address] [facility] 58227 Ferritin October 14, 2020 11:38pm 4.43 ng/mL 10-291 The results of this assay can be falsely decreased in patients who consume Biotin. MAIN LAB [address] [facility] [address] Vital Signs Vital Reading Result Reference Range [...] Diastolic 97 mm[Hg] 50-85 December 29 4:32pm Advance Directives Advance Directive Response Recorded Date/ [...] 2020 11:22pm Pt has a Power of Process Tech? No October 14, 2020 11:22pm Do we have a copy on file here at [facility]? No October 14, 2020 11:22pm Insurance Providers Guarantor EDUARDO Vazquez ORA Address [address] [address] Contact Info. Home Phone: Payer Policy Id Coverage Id Subscriber's Name Subscriber Id Effective Date Expiration Date [facility] [id number] EDUARDO PAYAN [id number] SELF PAY Self N/A Encounters Encounter Location(s) Arrival/Admit Date Discharge/Depart Date Provider(s) Departed Emergency [facility]Emergency Department October 14, 2020 10:48pm October 15, 2020 12:54am null Departed Emergency [facility]Emergency [facility] December 29, 2020 4:23pm December 29, 2020 7:13pm null Functional Status Observation Response Date Recorded Living Situation Home December 29 4:37pm Mental Status Observation Response Date Recorded Comprehension [...] Information Provider Address Pcp No Pcp No Future Procedures Future procedure information is unavailable Future Medications Future medication information is unavailable Patient Instructions Anemia Caused by Low Iron, A dult (DC) Gastritis (DC) Dental Pain (DC) Hospital Discharge Instructions Additional Instructions Follow up with your dental surgeon. Return if you develop fever or difficulty swallowing or breathing.
--- OUTSIDE RECORDS SUMMARY | 2022-11-20 17:47 | XMS_ITS | Continuity of Care Document ---
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 Name Role Phone PCP, of Choice Primary Care Provider Unavailabl e Out of Town, Provider Primary Care Provider Unav ailable Chief Complaint and Reason for Visit Chief Complaint LEFT FLANK PAIN ORAL INFECTION RECTAL BLEEDING abdominal pain OVARIAN CYST POST OP CONCERN ABDOMINAL PAIN HEAVY VAG BLEEDING FALL/ BACK COMPLAINT Allergies, Adverse Reactions, Alerts Allergen Type Severity Reaction Last Updated Verified Status haloperidol Allergy rash January 2:08pm Yes Active ketorolac Allergy anaphylaxis December 29, 2020 3:35pm Yes Active latex Allergy rash December 29 3:35pm Yes Active Penicillins Allergy hives December 29, 2020 3:35pm Yes Active prochlorperazine Allergy hives December 132020 3:35pm Yes Active Social History Smoking Status Status Start Date End Date Date of Observa tion Never smoked tobacco (finding) March 27, 2021 1:06pm Observation Status Observation Response Date of Response Alcohol Use Yes March 27 1:06pm alcohol intake frequency a few times a month Nov ember 2020 1:06pm Alcohol type hard liquor March 27 1:06pm Substance/Street Drug Use Yes Novemb er 2020 1:06pm substance use type marijuana March 1:06pm Smoking Status Never smoker March 27 1:06pm Additional Data Assigned Sex Female Problems Active [...] MG PO TWICE A DAY Janemb er 9th, 2021 3:03pm Septem rinku 2020 8:07pm Tramadol Discontin ued 50 MG PO Q8H 10 Septemb er 2020 3:44pm Septem rinku 2020 8:06pm Gabapentin Active 200 MG PO DAILY January 02, 2021 4:12pm Hydrocodone- Acetaminophe n Discontin ued 1 TAB PO Q6H January 02, 2021 5:26pm January 07, 2021 4:04pm Ondansetron Active 4 MG PO Q6H 10 2020 5:26pm Famotidine-C a Carb-Mag Hydrox (Pepcid Complete) 10-800-165 mg tablet,chewa ble Discontin ued 1 TAB PO DAILY January 08, 2021 12:50am Septem rinku 2020 8:07pm Dicyclomine Discontin ued 10 MG PO .q6 prn January 08, 2021 12:51am Septem rinku 2020 2:08pm Oxycodone Active MG CAPSULE Novemb e r 2020 2:59pm Fluticasone Propion-Salm eterol (Advair Hfa) 115-21 mcg/actuatio n HFA aerosol inhaler Active INH Novembe r 2020 2:59pm Ondansetron Hcl (Zofran) 4 mg tablet Discontin ued 4 MG PO Q8H 12 4 Novembe r 2020 4:45pm Novemb er 2020 12:01a m Sulfamethoxa zole-Trimeth oprim (Bactrim Ds) 800-160 mg tablet Discontin ued 1 TAB PO TWICE A DAY 14 Novembe r 2020 6:52pm Novemb er 2020 12:25p m Procedures Procedure Date Performed Status ED US Abdominal Limited March 27, 2021 1:[address] Abd Pel w/ Contrast March [...] 2020 10:38pm 7.41 1000/mm3 4.8-10.8 MA[facility] [address] [place] [address] White Blood Count January 02, 2021 3:44pm 6.81 1000/mm3 4.8-10.8 MA[facility] [address] [address] White Blood Count January 07, 2021 4:35pm 5.33 1000/mm3 4.8-10.8 MA[facility] LAB [address] [address] White Blood Count January 29, 2021 8:57pm 5.85 1000/mm3 4.8-10.8 MA[facility] [address] [address] White Blood Count March 16, 2021 4:34pm 6.11 1000/mm3 4.8-10.8 MA[facility] [address] [address] White Blood Count March 18, 2021 6:56pm 5.26 1000/mm3 4.8-10.8 MA[facility] [address] [address] White Blood Count March 20, 2021 3:37pm 4.94 1000/mm3 4.8-10.8 MA[facility] [address] [address] Red Blood Count October 14, 2020 10:38pm 4.44 M/mm3 4.20-5.40 MA[facility] [address] [place] [address]774 Red Blood Count January 02, 2021 3:44pm 4.67 M/mm3 4.20-5.40 MA[facility] [address] [address] Red Blood Count January 07, 2021 4:35pm 4.85 M/mm3 4.20-5.40 MA[facility] [address] [address]39 Red Blood Count January 29, 2021 8:57pm 4.53 M/mm3 4.20-5.40 MA[facility] [address] [address] Red Blood Count March 16, 2021 4:34pm 4.26 M/mm3 4.20-5.40 MA[facility] [address] [address] Red Blood Count March 18, 2021 6:56pm 4.17 M/mm3 4.20-5.40 MA[facility] [address] [address]190 Red Blood Count March 20, 2021 3:37pm 4.14 M/mm3 4.20-5.40 MA[facility] [address] [address] Hemoglobin October 14, 2020 10:38pm 9.2 g/dL 12.0-16.0 MA[facility] [address] [place] [address] Hemoglobin January 02, 2021 3:44pm 10.4 g/dL 12.0-16.0 MA[facility] [address] [address] Hemoglobin January 07, 2021 4:35pm 10.8 g/dL 12.0-16.0 MA[facility] [address] 83266 Hemoglobin January 29, 2021 8:57pm 10.4 g/dL 12.0-16.0 MA[facility] [address] 7[address]33 Hemoglobin March 16, 2021 4:34pm 9.9 g/dL 12.0-16.0 MA[facility] [address] [address]757 Hemoglobin March 18, 2021 6:56pm 9.9 g/dL 12.0-16.0 MA[facility] [address] 81092 Hemoglobin March 20, 2021 3:37pm 9.8 g/dL 12.0-16.0 MA[facility] [address] [address] Hematocrit October 14, 2020 10:38pm 30.6 % 37-47 MA[facility] [address] [place] [address]14 Hematocrit January 02, 2021 3:44pm 35.2 % 37-47 MA[facility] [address] [address] Hematocrit January 07, 2021 4:35pm 36.3 % 37-47 MA[facility] [address] [address]60 Hematocrit January 29, 2021 8:57pm 33.7 % 37-47 MA[facility] LAB [facility] [address] [facility] [address] Hematocrit March 16, 2021 4:34pm 33.2 % 37-47 MA[facility] LAB [facility] [address] [facility] 15267 Hematocrit March 18, 2021 6:56pm 32.9 % 37-47 MAIN [facility] [address] [address] Hematocrit March 20, 2021 3:37pm 32.6 % 37-47 MA[facility] [address] [address]66 Mean Corpuscular Volume October 14, 2020 10:38pm 68.9 fL 81.0-99.0 MA[facility] [address] [place] [address] 46498 Mean Corpuscular Volume January 02, 2021 3:44pm 75.4 fL 81.0-99.0 MAIN [facility] [address] 8[address]11 Mean Corpuscular Volume January 07, 2021 4:35pm 74.8 fL 81.0-99.0 MAIN [facility] [address] 28470 Mean Corpuscular Volume January 29, 2021 8:57pm 74.4 fL 81.0-99.0 MA[facility] [address] 97155 Mean Corpuscular Volume March 16, 2021 4:34pm 77.9 fL 81.0-99.0 MAIN [facility] [address] 14269 Mean Corpuscular Volume March 18, 2021 6:56pm 78.9 fL 81.0-99.0 MAIN [facility] [address] [address]354 Mean Corpuscular Volume March 20, 2021 3:37pm 78.7 fL 81.0-99.0 MA[facility] [address] 85471 Mean Corpuscular Hemoglobin October 14, 2020 10:38pm 20.7 pg 27-31 MA[facility] [address] [place] [address] 89887 Mean Corpuscular Hemoglobin January 02, 2021 3:44pm 22.3 pg 27-31 MA[facility] LAB [facility] [address] [facility] 35759 Mean Corpuscular Hemoglobin January 07, 2021 4:35pm 22.3 pg 27-31 MA[facility] [address] [facility] 45[address] Mean Corpuscular Hemoglobin January 29, 2021 8:57pm 23.0 pg 27-31 MA[facility] [address] [facility] 36313 Mean Corpuscular Hemoglobin March 16, 2021 4:34pm 23.2 pg 27-31 MAIN [facility] [address] [address]295 Mean Corpuscular Hemoglobin March 18, 2021 6:56pm 23.7 pg 27-31 MA[facility] [address] [address]018 Mean Corpuscular Hemoglobin March 20, 2021 3:37pm 23.7 pg 27-31 MA[facility] [address] [facility] 96[address] Mean Corpuscular Hemoglobin Concent October 14, 2020 10:38pm 30.1 g/dL 33-37 MA[facility] [address] [place] [address] 66635 Mean Corpuscular Hemoglobin Concent January 02, 2021 3:44pm 29.5 g/dL 33-37 MAIN LAB [address] [place] [address] Mean Corpuscular Hemoglobin Concent January 07, 2021 4:35pm 29.8 g/dL 33-37 MA[facility] [address] [place] [address] Mean Corpuscular Hemoglobin Concent January 29, 2021 8:57pm 30.9 g/dL 33-37 MA[facility] [address] [place] [address] Mean Corpuscular Hemoglobin Concent March 16, 2021 4:34pm 29.8 g/dL 33-37 MA[facility] [address] [place] [address] Mean Corpuscular Hemoglobin Concent March 18, 2021 6:56pm 30.1 g/dL 33-37 [facility] [address] [address] Mean Corpuscular Hemoglobin Concent March 20, 2021 3:37pm 30.1 g/dL 33-37 MA[facility] [address] [address]753 Red Cell Distribution Width October 14, 2020 10:38pm 16.8 % 11.5-14.5 MA[facility] [address] [place] [address] 22438 Red Cell Distribution Width January 02, 2021 3:44pm 19.4 % 11.5-14.5 MAIN [facility] [address] [address] Red Cell Distribution Width January 07, 2021 4:35pm 18.6 % 11.5-14.5 MA[facility] [address] 074[address] Red Cell Distribution Width January 29, 2021 8:57pm 17.6 % 11.5-14.5 MA[facility] [address] 10155 Red Cell Distribution Width March 16, 2021 4:34pm 16.2 % 11.5-14.5 MA[facility] [address] [address]201 Red Cell Distribution Width March 18, 2021 6:56pm 16.4 % 11.5-14.5 MA[facility] [address] 30541 Red Cell Distribution Width March 20, 2021 3:37pm 16.5 % 11.5-14.5 MA[facility] [address] 724[address] Platelet Count October 14, 2020 10:38pm 250 1000/mm3 140-440 MA[facility] [address] [place] [address] 56077 Platelet Count January 02, 2021 3:44pm 216 1000/mm3 140-440 MA[facility] [address] [address]119 Platelet Count January 07, 2021 4:35pm 240 1000/mm3 140-440 MA[facility] [address] [address]23 Platelet Count January 29, 2021 8:57pm 248 1000/mm3 140-440 MA[facility] [address] [address] Platelet Count March 16, 2021 4:34pm 220 1000/mm3 140-440 MA[facility] [address] [address]352 Platelet Count March 18, 2021 6:56pm 212 1000/mm3 140-440 MAIN [facility] [address] [address] Platelet Count March 20, 2021 3:37pm 177 1000/mm3 140-440 MA[facility] [address] 79584 Mean Platelet Volume October 14, 2020 10:38pm 10.6 fL 7.4-10.4 MA[facility] [address] [place] [address] 42423 Mean Platelet Volume January 02, 2021 3:44pm 10.7 fL 7.4-10.4 MA[facility] [address] [address]34 Mean Platelet Volume January 07, 2021 4:35pm 11.3 fL 7.4-10.4 MA[facility] [address] 70782 Mean Platelet Volume January 29, 2021 8:57pm 10.6 fL 7.4-10.4 MA[facility] LAB [address] 04423 Mean Platelet Volume March 16, 2021 4:34pm 10.6 fL 7.4-10.4 MA[facility] [address] 14905 Mean Platelet Volume March 18, 2021 6:56pm 10.4 fL 7.4-10.4 MA[facility] [address] 11250 Mean Platelet Volume March 20, 2021 3:37pm 9.9 fL 7.4-10.4 MA[facility] [address] [address] Neutrophils (%) (Auto) October 14, 2020 10:38pm 60.3 % 40.0-72.0 MA[facility] [address] [place] [address] 76768 Neutrophils (%) (Auto) January 02, 2021 3:44pm 64.3 % 40.0-72.0 MAIN LAB [address] [address] Neutrophils (%) (Auto) January 07, 2021 4:35pm 51.4 % 40.0-72.0 MAIN LAB [address] [address] Neutrophils (%) (Auto) January 29, 2021 8:57pm 57.7 % 40.0-72.0 [facility] [address] [address] Neutrophils (%) (Auto) March 16, 2021 4:34pm 62.5 % 40.0-72.0 [facility] [address] [address] Neutrophils (%) (Auto) March 18, 2021 6:56pm 57.9 % 40.0-72.[address] [address] Neutrophils (%) (Auto) March 20, 2021 3:37pm 64.0 % 40.0-72.[address] [address] Lymphocytes (%) (Auto) October 14, 2020 10:38pm 29.0 % 17-45 MA[facility] [address] [place] [address] 57794 Lymphocytes (%) (Auto) January 02, 2021 3:44pm 26.3 % 17-[address] [address] Lymphocytes (%) (Auto) January 07, 2021 4:35pm 37.7 % 17-[address] [address]672 Lymphocytes (%) (Auto) January 29, 2021 8:57pm 32.6 % 17-45 [facility] [address] [address] Lymphocytes (%) (Auto) March 16, 2021 4:34pm 26.7 % 17-[address] [address] Lymphocytes (%) (Auto) March 18, 2021 6:56pm 30.4 % 17-[address] [address] Lymphocytes (%) (Auto) March 20, 2021 3:37pm 26.1 % 17-[address] [place] [address] Monocytes (%) (Auto) October 14, 2020 10:38pm 8.2 % 3-11 MA[facility] [address] [place] [address]13 Monocytes (%) (Auto) January 02, 2021 3:44pm 6.2 % 3-11 MAIN LAB [address] 9[address]87 Monocytes (%) (Auto) January 07, 2021 4:35pm 6.0 % 3-11 MA[facility] [address] [address]71 Monocytes (%) (Auto) January 29, 2021 8:57pm 6.5 % 3-11 [facility] [address] [address] Monocytes (%) (Auto) March 16, 2021 4:34pm 6.9 % 3-11 MA[facility] [address] 18673 Monocytes (%) (Auto) March 18, 2021 6:56pm 7.2 % 3-11 MAIN [facility] [address] 94180 Monocytes (%) (Auto) March 20, 2021 3:37pm 5.9 % 3-11 [facility] [address] [address] Eosinophils (%) (Auto) October 14, 2020 10:38pm 1.1 % 0-3 MA[facility] [address] [place] [address] Eosinophils (%) (Auto) January 02, 2021 3:44pm 2.2 % 0-3 MA[facility] [address] [address]857 Eosinophils (%) (Auto) January 07, 2021 4:35pm 3.2 % 0-3 [facility] [address] [address] Eosinophils (%) (Auto) January 29, 2021 8:57pm 1.7 % 0-3 MA[facility] [address] [address]41 Eosinophils (%) (Auto) March 16, 2021 4:34pm 2.6 % 0-3 MAIN LAB [address] [place] [address] Eosinophils (%) (Auto) March 18, 2021 6:56pm 3.2 % 0-[address] [address] Eosinophils (%) (Auto) March 20, 2021 3:37pm 2.8 % 0-[address] [address] Basophils (%) (Auto) October 14, 2020 10:38pm 1.3 % 0-1 [facility] [address] [place] [address] 47191 Basophils (%) (Auto) January 02, 2021 3:44pm 0.9 % 0-[address] 8[address]82 Basophils (%) (Auto) January 07, 2021 4:35pm 1.5 % 0-[address] 13387 Basophils (%) (Auto) January 29, 2021 8:57pm 1.2 % 0-[address] [address]157 Basophils (%) (Auto) March 16, 2021 4:34pm 1.1 % 0-[address] [address] Basophils (%) (Auto) March 18, 2021 6:56pm 1.1 % 0-[address] [address] Basophils (%) (Auto) March 20, 2021 3:37pm 1.0 % 0-[address] [address] Immature Granulocyte % (Auto) October 14, 2020 10:38pm 0.1 % 0-1 [facility] [address] [place] [address] 07583 Immature Granulocyte % (Auto) January 02, 2021 3:44pm 0.1 % 0-[address] [address] Immature Granulocyte % (Auto) January 07, 2021 4:35pm 0.2 % 0-[address] [address] Immature Granulocyte % (Auto) January 29, 2021 8:57pm 0.3 % 0-1 MA[facility] [address] [address] Immature Granulocyte % (Auto) March 16, 2021 4:34pm 0.2 % 0-1 MA[facility] [address] [address] Immature Granulocyte % (Auto) March 18, 2021 6:56pm 0.2 % 0-1 MA[facility] [address] 91666 Immature Granulocyte % (Auto) March 20, 2021 3:37pm 0.2 % 0-1 MA[facility] [address] [address] Neutrophils # (Auto) October 14, 2020 10:38pm 4.46 1000/mm3 1.4-6.5 [facility] [address] [place] [address] 37727 Neutrophils # (Auto) January 02, 2021 3:44pm 4.38 1000/mm3 1.4-6.5 MA[facility] [address] [address] Neutrophils # (Auto) January 07, 2021 4:35pm 2.74 1000/mm3 1.4-6.5 MA[facility] LAB [address] [address] Neutrophils # (Auto) January 29, 2021 8:57pm 3.37 1000/mm3 1.4-6.5 MA[facility] LAB [address] [address] Neutrophils # (Auto) March 16, 2021 4:34pm 3.82 1000/mm3 1.4-6.5 MA[facility] LAB [address] 85773 Neutrophils # (Auto) March 18, 2021 6:56pm 3.04 1000/mm3 1.4-6.5 MA[facility] LAB [address] [address]94 Neutrophils # (Auto) March 20, 2021 3:37pm 3.16 1000/mm3 1.4-6.5 MA[facility] [address] [address] Lymphocytes # (Auto) October 14, 2020 10:38pm 2.15 1000/mm3 1.2-3.4 [facility] [address] [place] [address] 28771 Lymphocytes # (Auto) January 02, 2021 3:44pm 1.79 1000/mm3 1.2-3.4 MA[facility] [address] [address] Lymphocytes # (Auto) January 07, 2021 4:35pm 2.01 1000/mm3 1.2-3.4 MA[facility] [address] [address] Lymphocytes # (Auto) January 29, 2021 8:57pm 1.91 1000/mm3 1.2-3.4 MA[facility] [address] [address] Lymphocytes # (Auto) March 16, 2021 4:34pm 1.63 1000/mm3 1.2-3.4 MA[facility] [address] 9[address] Lymphocytes # (Auto) March 18, 2021 6:56pm 1.60 1000/mm3 1.2-3.4 MA[facility] [address] [address] Lymphocytes # (Auto) March 20, 2021 3:37pm 1.29 1000/mm3 1.2-3.4 MA[facility] [address] [address] Monocytes # (Auto) October 14, 2020 10:38pm 0.61 1000/mm3 0.0-0.8 [facility] [address] [place] [address] 29380 Monocytes # (Auto) January 02, 2021 3:44pm 0.42 1000/mm3 0.0-0.8 MA[facility] [address] [address] Monocytes # (Auto) January 07, 2021 4:35pm 0.32 1000/mm3 0.0-0.8 MA[facility] LAB [address] [address] Monocytes # (Auto) January 29, 2021 8:57pm 0.38 1000/mm3 0.0-0.8 MA[facility] [address] 7[address] Monocytes # (Auto) March 16, 2021 4:34pm 0.42 1000/mm3 0.0-0.8 MA[facility] LAB [address] [address] Monocytes # (Auto) March 18, 2021 6:56pm 0.38 1000/mm3 0.0-0.8 MA[facility] [address] [address]807 Monocytes # (Auto) March 20, 2021 3:37pm 0.29 1000/mm3 0.0-0.8 [facility] [address] [address] Eosinophils # (Auto) October 14, 2020 10:38pm 0.08 1000/mm3 0.0-0.7 [facility] [address] [place] [address] 9[address]26 Eosinophils # (Auto) January 02, 2021 3:44pm 0.15 1000/mm3 0.0-0.7 [facility] [address] [address] Eosinophils # (Auto) January 07, 2021 4:35pm 0.17 1000/mm3 0.0-0.7 [facility] [address] [address] Eosinophils # (Auto) January 29, 2021 8:57pm 0.10 1000/mm3 0.0-0.7 MA[facility] [address] [address] Eosinophils # (Auto) March 16, 2021 4:34pm 0.16 1000/mm3 0.0-0.7 MA[facility] [address] [address] Eosinophils # (Auto) March 18, 2021 6:56pm 0.17 1000/mm3 0.0-0.7 MA[facility] [address] [address] Eosinophils # (Auto) March 20, 2021 3:37pm 0.14 1000/mm3 0.0-0.7 MA[facility] [address] [address]34 Basophils # (Auto) October 14, 2020 10:38pm 0.10 1000/mm3 0.0-0.1 [facility] [address] [place] [address]11 Basophils # (Auto) January 02, 2021 3:44pm 0.06 1000/mm3 0.0-0.1 MA[facility] [address] [address] Basophils # (Auto) January 07, 2021 4:35pm 0.08 1000/mm3 0.0-0.1 MA[facility] [address] 7[address]99 Basophils # (Auto) January 29, 2021 8:57pm 0.07 1000/mm3 0.0-0.1 [facility] [address] [address] Basophils # (Auto) March 16, 2021 4:34pm 0.07 1000/mm3 0.0-0.1 [facility] [address] 8[address]58 Basophils # (Auto) March 18, 2021 6:56pm 0.06 1000/mm3 0.0-0.1 [facility] [address] [address] Basophils # (Auto) March 20, 2021 3:37pm 0.05 1000/mm3 0.0-0.1 [facility] [address] [address] Absolute Immature Granulocyte (auto October 14, 2020 10:38pm 0.0 0-1 [facility] [address] [place] [address] 48349 Absolute Immature Granulocyte (auto January 02, 2021 3:44pm 0.0 0-1 [facility] [address] [address] Absolute Immature Granulocyte (auto January 07, 2021 4:35pm 0.0 0-1 MA[facility] [address] 06976 Absolute Immature Granulocyte (auto January 29, 2021 8:57pm 0.0 0-1 [facility] [address] 26837 Absolute Immature Granulocyte (auto March 16, 2021 4:34pm 0.0 0-1 [facility] [address] 11527 Absolute Immature Granulocyte (auto March 18, 2021 6:56pm 0.0 0-1 [facility] [address] 94038 Absolute Immature Granulocyte (auto March 20, 2021 3:37pm 0.0 0-1 [facility] [address] [address] Differential Method October 14, 2020 10:38pm Automated [facility] [address] [place] [address]457 Differential Method January 02, 2021 3:44pm Automated [facility] [address] [address]402 Differential Method January 07, 2021 4:35pm Automated [facility] [address] 78798 Differential Method January 29, 2021 8:57pm Automated [facility] [address] 08451 Differential Method March 16, 2021 4:34pm Automated MA[facility] [address] 98738 Differential Method March 18, 2021 6:56pm Automated MA[facility] [address] 8[address]31 Differential Method March 20, 2021 3:37pm Automated MAIN LAB [address] [address] Differential Pathologist's Review October 14, 2020 10:38pm See comment No comparison data on file at [facility]. Microcytic hypochromic anemia, consistent with iron deficiency.Brice martin reviewed by pathologist for software quality assurance specialist.Hair Mello MD10/15/20 MAIN LAB [address] [place] [address]71 Prothrombin Time October 14, 2020 10:38pm 10.8 SECONDS 9.6-11.2 [facility] [address] [place] [address] 8[address]35 Prothromb Time International Ratio October 14, 2020 10:38pm 1.1 2.0-3.0 INR value valid only on patients on stabilized warfarin therapy. The recommended therapeutic range for warfarin (Coumadin) for most clinical indications is an INR of 2.0-3.0. An INR of 2.5-3.5 is recommended for patients with mechanical heart valves. MAIN LAB [address] [place] [address]991 Activated Partial Thromboplast Time October 14, 2020 10:38pm 26.1 SECONDS 21.6-36.0 A target of 1.5-2.5 times the mean of the normal reference range is considered therapeutic. NOTE: APTT must NOT be used to monitor LMWH therapy. Contact [facility] Pharmacy for monitoring information. MAIN LAB [address] [place] [address] 27641 Urine Color January 02, 2021 5:04pm Lauren MAIN LAB [address] [address] Urine Clarity January 02, 2021 5:04pm very cloudy MA[facility] [address] [address]31 Urine pH January 02, 2021 5:04pm 6.0 MA[facility] [address] [address]39 Urine Specific [place] January 02, 2021 5:04pm 1.015 MAIN LAB [address] [address]298 Urine Protein January 02, 2021 5:04pm 100 (2+) mg/dL NEGATIVE MA[facility] [address] [address]851 Urine Glucose (UA) January 02, 2021 5:04pm Normal mg/dL NORMAL MA[facility] [address] [address] Urine Ketones January 02, 2021 5:04pm Negative NEGATIVE [facility] [address] [address] Urine Nitrite January 02, 2021 5:04pm Negative Negative MA[facility] [address] 60896 Urine Bilirubin January 02, 2021 5:04pm Negative mg/dL NEGATIVE MA[facility] [address] [address] Urine Urobilinogen January 02, 2021 5:04pm Normal mg/dL NORMAL MA[facility] [address] 28078 Urine Leukocyte Esterase January 02, 2021 5:04pm Moderate (2+) WBC/uL NEGATIVE MA[facility] [address] 94250 Urine Blood January 02, 2021 5:04pm Large (3+) JOEL/uL NEGATIVE MA[facility] [address] [address] Urine RBC October 14, 2020 10:45pm 10-20 /hpf MAIN LAB [address] [place] [address] 20082 Urine RBC January 02, 2021 5:04pm Tntc /hpf MAIN [facility] [address] [address] Urine RBC March 16, 2021 5:40pm Tntc /hpf MAIN [facility] [address] [address] Urine WBC October 14, 2020 10:45pm 0-2 /hpf MA[facility] [address] [place] [address] 42065 Urine WBC January 02, 2021 5:04pm 3-5 /hpf MAIN LAB [address] [address] Urine WBC March 16, 2021 5:40pm See comment /hpf Microscopic field obscured by RBC. MAIN LAB [address] [address]67 Urine Squamous Epithelial Cells January 02, 2021 5:04pm 1+ /hpf MAIN LAB [address] 9[address] Urine Bacteria October 14, 2020 10:45pm 1+ /hpf NONE SEEN MA[facility] [address] [place] [address] 88942 Urine Bacteria January 02, 2021 5:04pm None seen /hpf NONE SEEN MA[facility] [address] [address] Urine Bacteria March 16, 2021 5:40pm See comment /hpf NONE SEEN Microscopic field obscured by RBC. MAIN LAB [address] [address] Urine Mucus October 14, 2020 10:45pm Present MA[facility] [address] [place] [address]70 Urine Culture Done October 14, 2020 10:45pm No CULTURE NOT INDICATED. MAIN [facility] [address] [place] [address] 28081 Urine Culture Done January 02, 2021 5:04pm Yes URINE SPECIMEN CULTURED MAIN LAB [address] [address] Urine Culture Done March 16, 2021 5:40pm Yes URINE SPECIMEN CULTURED MA[facility] [address] [address] Urine Test January 02, 2021 5:04pm Negative NEGATIVE [facility] [address] 6[address] Sodium Level October 14, 2020 10:38pm 138 mmol/L 137-145 MA[facility] [address] [place] [address] 06567 Sodium Level January 02, 2021 3:44pm 141 mmol/L 137-145 MA[facility] LAB [facility] [address] [facility] [address] Sodium Level January 07, 2021 4:35pm 140 mmol/L 137-145 MA[facility] [address] [facility] 18[address] Sodium Level January 29, 2021 8:57pm 137 mmol/L 137-145 MAIN [facility] [address] [address]48 Sodium Level March 16, 2021 4:34pm 137 mmol/L 137-145 MA[facility] [address] [address]71 Sodium Level March 18, 2021 6:56pm 141 mmol/L 137-145 MA[facility] [address] [address]234 Sodium Level March 20, 2021 4:04pm 140 mmol/L 137-145 MAIN [facility] [address] [address] Potassium Level October 14, 2020 10:38pm 3.8 mmol/L 3.6-5.0 MA[facility] [address] [place] [address] 78982 Potassium Level January 02, 2021 3:44pm 3.9 mmol/L 3.6-5.0 MAIN [facility] [address] [address] Potassium Level January 07, 2021 4:35pm 3.7 mmol/L 3.6-5.0 MAIN [facility] [address] [address] Potassium Level January 29, 2021 8:57pm 3.5 mmol/L 3.6-5.0 MAIN [facility] [address] [address]85 Potassium Level March 16, 2021 4:34pm 4.0 mmol/L 3.6-5.0 MAIN [facility] [address] [address]36 Potassium Level March 18, 2021 6:56pm 3.4 mmol/L 3.6-5.0 MAIN [facility] [address] 9[address]75 Potassium Level March 20, 2021 4:04pm 3.8 mmol/L 3.6-5.0 MA[facility] LAB [facility] [address] [facility] [address] Chloride Level October 14, 2020 10:38pm 100 mmol/L 98-107 MA[facility] [address] [facility] [address]34 Chloride Level January 02, 2021 3:44pm 104 mmol/L 98-107 MA[facility] [address] [facility] 310[address] Chloride Level January 07, 2021 4:35pm 103 mmol/L 98-107 [facility] [address] [facility] [facility] [address] Chloride Level January 29, 2021 8:57pm 99 mmol/L 98-107 MAIN [facility] [address] [address] Chloride Level March 16, 2021 4:34pm 102 mmol/L 98-107 MAIN LAB [facility] [address] [facility] [address] Chloride Level March 18, 2021 6:56pm 102 mmol/L 98-107 MAIN LAB [facility] [address] [facility] [address] Chloride Level March 20, 2021 4:04pm 103 mmol/L 98-107 MAIN [facility] [address] [address] Carbon Dioxide Level October 14, 2020 10:38pm 25 mmol/L 22-30 MAIN LAB [address] [place] [address] Carbon Dioxide Level January 02, 2021 3:44pm 26 mmol/L 22-30 MAIN LAB [facility] [address] [facility] [address] Carbon Dioxide Level January 07, 2021 4:35pm 27 mmol/L 22-30 MAIN LAB [facility] [address] [facility] [address] Carbon Dioxide Level January 29, 2021 8:57pm 27 mmol/L 22-30 MAIN LAB [facility] [address] [facility] [address] Carbon Dioxide Level March 16, 2021 4:34pm 28 mmol/L 22-30 MAIN LAB [address] [address] Carbon Dioxide Level March 18, 2021 6:56pm 29 mmol/L 22-30 MAIN LAB [facility] [address] [facility] [address] Carbon Dioxide Level March 20, 2021 4:04pm 27 mmol/L 22-30 MAIN LAB [facility] [address] [facility] [address] Anion Gap October 14, 2020 10:38pm 13 7-16 MAIN [facility] [address] [facility] [address] Anion Gap January 02, 2021 3:44pm 11 7-16 MAIN LAB [facility] [address] [facility] [address] Anion Gap January 07, 2021 4:35pm 10 7-16 MAIN LAB [facility] [address] [facility] [address] Anion Gap January 29, 2021 8:57pm 11 7-16 MAIN [facility] [address] [address] Anion Gap March 16, 2021 4:34pm 7 7-16 MAIN [facility] [address] [address] Anion Gap March 18, 2021 6:56pm 10 7-16 MAIN LAB [address] [address] Anion Gap March 20, 2021 4:04pm 10 7-16 MAIN LAB [address] [address] Blood Urea Nitrogen October 14, 2020 10:38pm 15 mg/dL 7- MAIN LAB [address] [place] [address] Blood Urea Nitrogen January 02, 2021 3:44pm 11 mg/dL 7- MAIN LAB [facility] [address] [facility] [address] Blood Urea Nitrogen January 07, 2021 4:35pm 13 mg/dL 7- MAIN LAB [facility] [address] [facility] [address] Blood Urea Nitrogen January 29, 2021 8:57pm 13 mg/dL 7- MAIN LAB [facility] [address] [facility] [address] Blood Urea Nitrogen March 16, 2021 4:34pm 10 mg/dL 7- MAIN LAB [address] [address] Blood Urea Nitrogen March 18, 2021 6:56pm 10 mg/dL 7- MAIN LAB [facility] [address] [facility] [address] Blood Urea Nitrogen March 20, 2021 4:04pm 5 mg/dL 7-17 MAIN LAB [address] [address] Creatinine October 14, 2020 10:38pm 0.76 mg/dL 0.52-1.04 MAIN LAB [address] [place] [address] Creatinine January 02, 2021 3:44pm 0.76 mg/dL 0.52-1.04 MAIN LAB [address] [address] Creatinine January 07, 2021 4:35pm 0.79 mg/dL 0.52-1.04 MAIN LAB [address] [address] Creatinine January 29, 2021 8:57pm 0.84 mg/dL 0.52-1.04 MAIN LAB [address] [address] Creatinine March 16, 2021 4:34pm 0.62 mg/dL 0.52-1.04 MAIN LAB [address] [address] Creatinine March 18, 2021 6:56pm 0.66 mg/dL 0.52-1.04 MAIN LAB [address] [address] Creatinine March 20, 2021 4:04pm 0.59 mg/dL 0.52-1.04 MAIN LAB [address] [address] Glomerular Filtration Rate Calc October 14, 2020 10:38pm > 60 mL/min >60.0 MAIN LAB [address] [place] [address] Glomerular Filtration Rate Calc January 02, 2021 3:44pm > 60 mL/min >60.0 MAIN LAB [address] [address] Glomerular Filtration Rate Calc January 07, 2021 4:35pm > 60 mL/min >60.0 MAIN LAB [address] [address] Glomerular Filtration Rate Calc January 29, 2021 8:57pm > 60 mL/min >60.0 MAIN LAB [address] [address] Glomerular Filtration Rate Calc March 16, 2021 4:34pm > 60 mL/min >60.0 MAIN LAB [address] [address] Glomerular Filtration Rate Calc March 18, 2021 6:56pm > 60 mL/min >60.0 MAIN LAB [address] [address] Glomerular Filtration Rate Calc March 20, 2021 4:04pm > 60 mL/min >60.0 MAIN LAB [address] [address] Glucose Level October 14, 2020 10:38pm 88 mg/dL 70-100 MAIN LAB [address] [place] [address] Glucose Level January 02, 2021 3:44pm 88 mg/dL 70-100 MAIN [facility] [address] [address] Glucose Level January 07, 2021 4:35pm 105 mg/dL 70-100 MAIN [facility] [address] [address] Glucose Level January 29, 2021 8:57pm 92 mg/dL 70-100 MA[facility] [address] [address] Glucose Level March 16, 2021 4:34pm 90 mg/dL 70-100 MAIN [facility] [address] [address] Glucose Level March 18, 2021 6:56pm 84 mg/dL 70-100 MAIN [facility] [address] [address] Glucose Level March 20, 2021 4:04pm 91 mg/dL 70-100 MAIN [facility] [address] [address] Calcium Level October 14, 2020 10:38pm 9.3 mg/dL 8.4-10.2 MAIN LAB [address] [place] [address] Calcium Level January 02, 2021 3:44pm 9.3 mg/dL 8.4-10.2 MAIN LAB [address] [address] Calcium Level January 07, 2021 4:35pm 9.6 mg/dL 8.4-10.2 MAIN LAB [address] [address] Calcium Level January 29, 2021 8:57pm 9.8 mg/dL 8.4-10.2 MAIN LAB [facility] [address] [facility] [address] Calcium Level March 16, 2021 4:34pm 9.5 mg/dL 8.4-10.2 MAIN LAB [address] [address] Calcium Level March 18, 2021 6:56pm 9.3 mg/dL 8.4-10.2 MAIN LAB [address] [address] Calcium Level March 20, 2021 4:04pm 9.4 mg/dL 8.4-10.2 MAIN [facility] [address] [address] Calcium Adjusted for Albumin October 14, 2020 10:38pm 9.2 mg/dL 8.4-10.2 MAIN LAB [address] [place] [address] Calcium Adjusted for Albumin January 02, 2021 3:44pm 8.8 mg/dL 8.4-10.2 MAIN LAB [address] [address] Calcium Adjusted for Albumin January 07, 2021 4:35pm 9.3 mg/dL 8.4-10.2 MAIN LAB [address] [address] Calcium Adjusted for Albumin March 16, 2021 4:34pm 9.4 mg/dL 8.4-10.2 MAIN LAB [address] [address] Calcium Adjusted for Albumin March 18, 2021 6:56pm 9.1 mg/dL 8.4-10.2 MAIN LAB [address] [address] Iron Level October 14, 2020 10:38pm 36 ug/dL 37-170 MAIN LAB [address] [place] [address] Total Bilirubin October 14, 2020 10:38pm 0.3 mg/dL 0.2-1.3 MAIN LAB [address] [place] [address] Total Bilirubin January 02, 2021 3:44pm 0.4 mg/dL 0.2-1.3 MAIN LAB [address] [address] Total Bilirubin January 07, 2021 4:35pm 0.4 mg/dL 0.2-1.3 MAIN LAB [address] [address] Total Bilirubin March 16, 2021 4:34pm 0.4 mg/dL 0.2-1.3 MAIN LAB [address] [address] Total Bilirubin March 18, 2021 6:56pm 0.4 mg/dL 0.2-1.3 MAIN LAB [address] [address] Aspartate Amino Transf (AST/SGOT) October 14, 2020 10:38pm 55 U/L 14-36 MAIN LAB [address] [place] [address] Aspartate Amino Transf (AST/SGOT) January 02, 2021 3:44pm 39 U/L 14-36 MAIN LAB [address] [address] Aspartate Amino Transf (AST/SGOT) January 07, 2021 4:35pm 38 U/L 14-36 MAIN LAB [address] [address] Aspartate Amino Transf (AST/SGOT) March 16, 2021 4:34pm 36 U/L 14-36 MAIN LAB [address] [address] Aspartate Amino Transf (AST/SGOT) March 18, 2021 6:56pm 37 U/L 14-36 MAIN LAB [address] [address] Alanine Aminotransferase (ALT/SGPT) October 14, 2020 10:38pm 41 U/L <35 As of 09/13/19, the Reference Range for ALT/SGPT for adult patients has been updated. The Reference Range for ALT/SGPT has not been established for patients <18 years of age. MAIN LAB [address] [place] [address] Alanine Aminotransferase (ALT/SGPT) January 02, 2021 3:44pm 21 U/L <35 As of 09/13/19, the Reference Range for ALT/SGPT for adult patients has been updated. The Reference Range for ALT/SGPT has not been established for patients <18 years of age. MAIN LAB [address] [address] Alanine Aminotransferase (ALT/SGPT) January 07, 2021 4:35pm 23 U/L <35 As of 09/13/19, the Reference Range for ALT/SGPT for adult patients has been updated. The Reference Range for ALT/SGPT has not been established for patients <18 years of age. MAIN LAB [address] [address] Alanine Aminotransferase (ALT/SGPT) March 16, 2021 4:34pm 17 U/L <35 As of 09/13/19, the Reference Range for ALT/SGPT for adult patients has been updated. The Reference Range for ALT/SGPT has not been established for patients <18 years of age. MAIN LAB [address] [address] Alanine Aminotransferase (ALT/SGPT) March 18, 2021 6:56pm 19 U/L <35 As of 09/13/19, the Reference Range for ALT/SGPT for adult patients has been updated. The Reference Range for ALT/SGPT has not been established for patients <18 years of age. MAIN LAB [address] [address] Lactic Acid Level March 18, 2021 6:56pm 1.0 mmol/L 0.7-2.1 MAIN LAB [address] [address] Total Protein October 14, 2020 10:38pm 7.4 g/dL 6.3-8.2 MAIN LAB [address] [place] [address] Total Protein January 02, 2021 3:44pm 7.9 g/dL 6.3-8.2 MAIN LAB [address] [address] Total Protein January 07, 2021 4:35pm 7.7 g/dL 6.3-8.2 MAIN LAB [address] [address] Total Protein March 16, 2021 4:34pm 7.2 g/dL 6.3-8.2 MAIN LAB [address] [address] Total Protein March 18, 2021 6:56pm 7.6 g/dL 6.3-8.2 MAIN LAB [address] [address] Albumin October 14, 2020 10:38pm 4.4 g/dL 3.5-5.0 MAIN LAB [address] [place] [address] Albumin January 02, 2021 3:44pm 4.9 g/dL 3.5-5.0 MAIN LAB [address] [address] Albumin January 07, 2021 4:35pm 4.7 g/dL 3.5-5.0 MAIN LAB [address] [address] Albumin March 16, 2021 4:34pm 4.4 g/dL 3.5-5.0 MAIN LAB [address] [address] Albumin March 18, 2021 6:56pm 4.6 g/dL 3.5-5.0 MAIN LAB [address] [address] Alkaline Phosphatase October 14, 2020 10:38pm 55 U/L 38-126 MAIN LAB [address] [place] [address] Alkaline Phosphatase January 02, 2021 3:44pm 58 U/L 38-126 MAIN LAB [address] [address] Alkaline Phosphatase January 07, 2021 4:35pm 58 U/L 38-126 MAIN LAB [address] [address] Alkaline Phosphatase March 16, 2021 4:34pm 45 U/L 38-126 MAIN LAB [address] [address] Alkaline Phosphatase March 18, 2021 6:56pm 47 U/L 38-126 MAIN LAB [address] [address] Lipase October 14, 2020 10:38pm 43 U/L 23-300 MAIN LAB [address] [place] [address] Ferritin October 14, 2020 10:38pm 4.43 ng/mL 10-291 The results of this assay can be falsely decreased in patients who consume Biotin. MAIN LAB [address] [place] [address] Microbiology Results Procedure Source Result Collection Date/Time Result Date/Time Result Comment Performing Site Blood Culture Blood, Left Antecubital NO GROWTH AFTER 5 DAYS March 18, 2021 9:10pm March 24, 2021 7:15am MAIN LAB [address] [address] Urine Culture Ur,Clean Catch January 02, 2021 6:40pm January 04, 2021 8:36am MAIN LAB [address] [address] Urine Culture Ur,Clean Catch March 16, 2021 7:39pm March 18, 2021 10:45am MAIN LAB [address] [address] Gram Stain Umbilicus March 16, 2021 10:27am March 17, 2021 8:17am MAIN LAB [address] [address] Routine Culture Umbilicus Staphylococcus Aureus-Mrsa March 16, 2021 10:27am March 20, 2021 8:34am [facility] [address] [address] Diagnostic Imaging Reports Report Dictated Date/Time Dictated [...] : Megan Morales MD dd: 01/02/21 17401/02/21 [id number] Report Dictated Date/Time Dictated By Status Radiology [...] had a laporoscopy compelted on 03/05/21, at [facility] in [place]. States she is having sharp cramping stabbing [...] Temperature 97.9 [degF] 97.6-99.6 October 14, 021 9:53pm Heart Rate 80 /min 60-100 October 14, 2020 9:53pm Respiratory rate 16 /min 12-October 14 021 9:53pm Oxygen saturation by Pulse oximetry [...] January 07 3:59pm Respiratory rate 20 /min 12-December 3:59pm Oxygen saturation by Pulse oximetry 100 [...] 29, 2021 10:00pm Respiratory rate 17 /min 12-January 132020 10:00pm Oxygen saturation by Pulse oximetry 97 % 95-100 January 29, 2021 10:00pm BP Systolic 93 mm[Hg] 100-140 January 29, 2021 10:00pm BP Diastolic 64 mm[Hg] 50-85 January 29, 2021 10:00pm Weight 92.98 kg March 16, 2:55pm Body Temperature 99.0 [degF] 97.6-99.6 March [...] 59 mm[Hg] 50-85 March 27, 2021 1:20pm Advance Directives Advance Directive Response Recorded Date/ Time Does patient have an Advanced Directive? No October 14, 2020 10:22pm Do we have a copy on file here at [facility]? No October 14, 2020 10:22pm Pt has a Living Will? No October 14, 2020 10:22pm Do we have a copy on file here at [facility]? 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 No October 14, 2020 10:22pm Do we have a copy on file here at [facility]? No October 14, 2020 10:22pm Insurance Providers Guarantor EDUARDO PAYAN Address [address] [address] Contact Info. Home Phone: Payer Policy Id Coverage Id Subscriber's Name Subscriber Id Effective Date Expiration Date [facility] [id number] EDUARDO PAYAN [id number] SELF PAY Self N/A Encounters Encounter [...] 2021 5:55pm null Departed Emergency [facility] January 21, 2021 1:24pm January 21, [...] 2021 11:49am March 27, 2021 2:32pm null Functional Status Observation Response Date Recorded Living Situation With Family March 27, 2021 2:32pm Mental Status Observation Response Date Recorded Comprehension [...] 2020 10:00pm Mood/Behavior Appropriate October 14, 2020 0:00pm Plan of Treatment Future Tests Future scheduled test information is unavailable Pending Tests Pending diagnostic test information is unavailable Future Visits Future appointment information is unavailable Referrals to Other Providers Reason for Referral Referral Start Date Provider Provider Contact Information Provider Address [place] Emely holloway MD Work Phone: [facility] TRACTOR CRANE ENGINEER [address] [place] [address] Chavez and will see for US [facility] Obstectrics and Gynecology Work Phone: [address] [place] [phone] No Pcp Mahad Chavez MD Work Phone: [facility] TRACTOR CRANE ENGINEER [address] [place] [phone] No Pcp No Pcp No Pcp [facility] Obstectrics and Gynecology Work Phone: [address] [place] [phone] No Pcp No Pcp No Pcp Future [...] After Surgery Hospital Discharge Instructions Additional Instructions Return if your abdominal pain worsens. Follow-up on Monday with your primary care doctor.
--- OUTSIDE RECORDS SUMMARY | 2022-11-20 17:47 | XMS_ITS | Continuity of Care Document ---
Author Name Unknown Address [address] [place] [address] Phone [facility] Address [address] [place] [address] Phone Care Team Providers Care Scow Captain Name Role Phone PCP, of Choice Primary Care Provider Unavailabl e Out of Town, Provider Primary Care Provider Unav ailable Chief Complaint and Reason for Visit Chief Complaint LEFT FLANK PAIN ORAL INFECTION RECTAL BLEEDING abdominal pain OVARIAN CYST POST OP CONCERN ABDOMINAL PAIN HEAVY VAG BLEEDING FALL/ BACK COMPLAINT PELVIC PAIN RIGHT SIDE PAIN ABDOMINAL PAIN Allergies, Adverse Reactions, Alerts Allergen Type [...] Observa tion Never smoked tobacco (finding) August 10, 2021 3:07pm Observation Status Observation Response Date of Response Alcohol Use Yes August 10, 2021 3:07pm alcohol intake frequency a few times a month [facility] 2021 3:07pm Alcohol type hard liquor August 10, 2021 3:07pm Substance/Street Drug Use Yes August 10, 2021 3:07pm substance use type marijuana August 10 3:07pm Smoking Status Never smoker August 10, 2021 3:07pm Additional Data Assigned Sex Female Problems Active Problems Medical Problem Onset Date Status Pelvic pain Active Diarrhea Active Hx of endometriosis Active Nausea & vomiting Active Inactive/Resolved Problems Medical Problem Onset Date Status Abdominal pain, RLQ Resolved Ovarian cyst Resolved Pelvic pain Resolved Functional abdominal pain syndrome Resolved Diarrhea Resolved Gastritis Resolved MRSA (methicillin resistant Staphylococcus aureu s) infection Resolved Post-operative pain Resolved Pain, dental Resolved Pain, dental Resolved Vaginal bleeding Resolved Iron deficiency anemia Resolved Hx of endometriosis Resolved Abdominal pain Resolved Abdominal pain Resolved [...] MG PO DAILY October 15, 2020 2:57pm [facility] er 2020 5:42pm Hydrocodone- Acetaminophe n Discontin ued TABLET December 29, 2020 4:35pm January 07, 2021 5:04pm Cefdinir Discontin ued 300 MG PO TWICE A DAY er 2020 4:03pm Septem rinku 2020 9:07pm Tramadol Discontin ued 50 MG PO Q8H [facility] [place] 4:44pm Jan rinku 2020 9:06pm Montelukast Active 10 MG PO DAILY ar 2021 3:37pm Omeprazole Discontin ued 20 MG PO DAILY r y 2021 3:37pm August 07, 2021 12:12p m [...] US Abdominal Limited August 10, 2021 4:34pm active CT Abd Pel w/ Contrast August [...] 2020 11:38pm 7.41 1000/mm3 4.8-10.8 MAIN LAB [address] [place] [address] 49068 White Blood Count January 02, 2021 4:44pm 6.81 1000/mm3 4.8-10.8 MAIN LAB [address] [address] White Blood Count January 07, 2021 5:35pm 5.33 1000/mm3 4.8-10.8 MAIN LAB [address] 8[address]60 White Blood Count January 29, 2021 9:57pm 5.85 1000/mm3 4.8-10.8 MAIN LAB [address] 85821 White Blood Count March 16, 2021 5:34pm 6.11 1000/mm3 4.8-10.8 MAIN LAB [address] 19336 White Blood Count March 18, 2021 7:56pm 5.26 1000/mm3 4.8-10.8 MAIN LAB [address] 86322 White Blood Count March 20, 2021 4:37pm 4.94 1000/mm3 4.8-10.8 MAIN LAB [address] 27066 White Blood Count August 07, 2021 1:30pm 4.95 1000/mm3 4.8-10.8 MAIN LAB [address] 13531 White Blood Count August 10, 2021 3:14pm 4.83 1000/mm3 4.8-10.8 MAIN LAB [address] 57045 Red Blood Count October 14, 2020 11:38pm 4.44 M/mm3 4.20-5.40 MAIN LAB [address] [place] [address] 9[address]15 Red Blood Count January 02, 2021 4:44pm 4.67 M/mm3 4.20-5.40 MAIN LAB [address] 38119 Red Blood Count January 07, 2021 5:35pm 4.85 M/mm3 4.20-5.40 MAIN LAB [address] 15555 Red Blood Count January 29, 2021 9:57pm 4.53 M/mm3 4.20-5.40 MAIN LAB [address] 25622 Red Blood Count March 16, 2021 5:34pm 4.26 M/mm3 4.20-5.40 MAIN LAB [address] 23541 Red Blood Count March 18, 2021 7:56pm 4.17 M/mm3 4.20-5.40 MAIN LAB [address] 16144 Red Blood Count March 20, 2021 4:37pm 4.14 M/mm3 4.20-5.40 MAIN LAB [address] 77408 Red Blood Count August 07, 2021 1:30pm 4.43 M/mm3 4.20-5.40 MAIN LAB [address] 38006 Red Blood Count August 10, 2021 3:14pm 3.83 M/mm3 4.20-5.40 MAIN LAB [address] 08661 Hemoglobin October 14, 2020 11:38pm 9.2 g/dL 12.0-16.0 MAIN LAB [address] [place] [address] 68438 Hemoglobin January 02, 2021 4:44pm 10.4 g/dL 12.0-16.0 MAIN LAB [address] 99115 Hemoglobin January 07, 2021 5:35pm 10.8 g/dL 12.0-16.0 MAIN LAB [address] 19091 Hemoglobin January 29, 2021 9:57pm 10.4 g/dL 12.0-16.0 MAIN LAB [address] 13333 Hemoglobin March 16, 2021 5:34pm 9.9 g/dL 12.0-16.0 MAIN LAB [address] 92815 Hemoglobin March 18, 2021 7:56pm 9.9 g/dL 12.0-16.0 MAIN LAB [address] 19364 Hemoglobin March 20, 2021 4:37pm 9.8 g/dL 12.0-16.0 MAIN LAB [address] 80190 Hemoglobin August 07, 2021 1:30pm 11.4 g/dL 12.0-16.0 MAIN LAB [address] 47961 Hemoglobin August 10, 2021 3:14pm 9.9 g/dL 12.0-16.0 MAIN LAB [address] 11991 Hematocrit October 14, 2020 11:38pm 30.6 % 37-47 MAIN LAB [address] [facility] [address] Hematocrit January 02, 2021 4:44pm 35.2 % 37-47 MAIN LAB [facility] [address] [facility] 07676 Hematocrit January 07, 2021 5:35pm 36.3 % 37-47 MAIN LAB [facility] [address] [facility] 64238 Hematocrit January 29, 2021 9:57pm 33.7 % 37-47 MAIN LAB [facility] [address] [facility] 88211 Hematocrit March 16, 2021 5:34pm 33.2 % 37-47 MAIN LAB [facility] [address] [facility] 26973 Hematocrit March 18, 2021 7:56pm 32.9 % 37-47 MAIN LAB [address] 07089 Hematocrit March 20, 2021 4:37pm 32.6 % 37-47 MAIN LAB [facility] [address] [facility] 575[address] Hematocrit August 07, 2021 1:30pm 36.4 % 37-47 MAIN LAB [address] 68368 Hematocrit August 10, 2021 3:14pm 31.6 % 37-47 MAIN LAB [facility] [address] [facility] 5[address] Mean Corpuscular Volume October 14, 2020 11:38pm 68.9 fL 81.0-99.0 MAIN LAB [address] [facility] 23492 Mean Corpuscular Volume January 02, 2021 4:44pm 75.4 fL 81.0-99.0 MAIN LAB [facility] [address] [facility] 80974 Mean Corpuscular Volume January 07, 2021 5:35pm 74.8 fL 81.0-99.0 MAIN LAB [facility] [address] [facility] 63902 Mean Corpuscular Volume January 29, 2021 9:57pm 74.4 fL 81.0-99.0 MAIN LAB [facility] [address] [facility] 58152 Mean Corpuscular Volume March 16, 2021 5:34pm 77.9 fL 81.0-99.0 MAIN LAB [facility] [address] [facility] 78515 Mean Corpuscular Volume March 18, 2021 7:56pm 78.9 fL 81.0-99.0 MAIN LAB [address] 33976 Mean Corpuscular Volume March 20, 2021 4:37pm 78.7 fL 81.0-99.0 MAIN LAB [address] 76971 Mean Corpuscular Volume August 07, 2021 1:30pm 82.2 fL 81.0-99.0 MAIN LAB [address] 44815 Mean Corpuscular Volume August 10, 2021 3:14pm 82.5 fL 81.0-99.0 MAIN LAB [address] 94978 Mean Corpuscular Hemoglobin October 14, 2020 11:38pm 20.7 pg 27-31 MAIN LAB [address] [place] [address] 87018 Mean Corpuscular Hemoglobin January 02, 2021 4:44pm 22.3 pg 27-31 MAIN LAB [address] 35948 Mean Corpuscular Hemoglobin January 07, 2021 5:35pm 22.3 pg 27-31 MAIN LAB [address] 69110 Mean Corpuscular Hemoglobin January 29, 2021 9:57pm 23.0 pg 27-31 MAIN LAB [address] 45576 Mean Corpuscular Hemoglobin March 16, 2021 5:34pm 23.2 pg 27-31 MAIN LAB [address] 21919 Mean Corpuscular Hemoglobin March 18, 2021 7:56pm 23.7 pg 27-31 MAIN LAB [address] 46710 Mean Corpuscular Hemoglobin March 20, 2021 4:37pm 23.7 pg 27-31 MAIN LAB [facility] [address] [facility] 92161 Mean Corpuscular Hemoglobin August 07, 2021 1:30pm 25.7 pg 27- MAIN LAB [facility] [address] [facility] 89463 Mean Corpuscular Hemoglobin August 10, 2021 3:14pm 25.8 pg 27-31 MAIN LAB [facility] [address] [facility] 04139 Mean Corpuscular Hemoglobin Concent October 14, 2020 11:38pm 30.1 g/dL 33-37 MAIN LAB [address] [place] [address] 04149 Mean Corpuscular Hemoglobin Concent January 02, 2021 4:44pm 29.5 g/dL 33-37 MAIN LAB [address] 07761 Mean Corpuscular Hemoglobin Concent January 07, 2021 5:35pm 29.8 g/dL 33-37 MAIN LAB [address] 62418 Mean Corpuscular Hemoglobin Concent January 29, 2021 9:57pm 30.9 g/dL 33-37 MAIN LAB [address] 54803 Mean Corpuscular Hemoglobin Concent March 16, 2021 5:34pm 29.8 g/dL 33-37 MAIN LAB [address] 21166 Mean Corpuscular Hemoglobin Concent March 18, 2021 7:56pm 30.1 g/dL 33-37 MAIN LAB [facility] [address] [facility] 83483 Mean Corpuscular Hemoglobin Concent March 20, 2021 4:37pm 30.1 g/dL 33-37 MAIN LAB [address] 05397 Mean Corpuscular Hemoglobin Concent August 07, 2021 1:30pm 31.3 g/dL 33-37 MAIN LAB [facility] [address] [facility] 94056 Mean Corpuscular Hemoglobin Concent August 10, 2021 3:14pm 31.3 g/dL 33-37 MAIN LAB [facility] 133 [place] [address] Red Cell Distribution Width October 14, 2020 11:38pm 16.8 % 11.5-14.5 MAIN LAB [address] [place] [address] 35351 Red Cell Distribution Width January 02, 2021 4:44pm 19.4 % 11.5-14.5 MAIN LAB [address] 66438 Red Cell Distribution Width January 07, 2021 5:35pm 18.6 % 11.5-14.5 MAIN LAB [address] 30027 Red Cell Distribution Width January 29, 2021 9:57pm 17.6 % 11.5-14.5 MAIN LAB [address] 21136 Red Cell Distribution Width March 16, 2021 5:34pm 16.2 % 11.5-14.5 MAIN LAB [address] 41600 Red Cell Distribution Width March 18, 2021 7:56pm 16.4 % 11.5-14.5 MAIN LAB [address] 23300 Red Cell Distribution Width March 20, 2021 4:37pm 16.5 % 11.5-14.5 MAIN LAB [address] 80898 Red Cell Distribution Width August 07, 2021 1:30pm 14.0 % 11.5-14.5 MAIN LAB [address] 73251 Red Cell Distribution Width August 10, 2021 3:14pm 14.0 % 11.5-14.5 MAIN LAB [address] 70870 Platelet Count October 14, 2020 11:38pm 250 1000/mm3 140-440 MAIN LAB [address] [place] [address] 35390 Platelet Count January 02, 2021 4:44pm 216 1000/mm3 140-440 MAIN LAB [address] 09907 Platelet Count January 07, 2021 5:35pm 240 1000/mm3 140-440 MAIN LAB [address] 49327 Platelet Count January 29, 2021 9:57pm 248 1000/mm3 140-440 MAIN LAB [facility] [address] [facility] 30415 Platelet Count March 16, 2021 5:34pm 220 1000/mm3 140-440 MAIN LAB [facility] [address] [facility] 55164 Platelet Count March 18, 2021 7:56pm 212 1000/mm3 140-440 MAIN LAB [address] 34585 Platelet Count March 20, 2021 4:37pm 177 1000/mm3 140-440 MAIN LAB [address] 57286 Platelet Count August 07, 2021 1:30pm 207 1000/mm3 140-440 MAIN LAB [address] 06552 Platelet Count August 10, 2021 3:14pm 189 1000/mm3 140-440 MAIN LAB [address] 22748 Mean Platelet Volume October 14, 2020 11:38pm 10.6 fL 7.4-10.4 MAIN LAB [address] [place] [address] 94712 Mean Platelet Volume January 02, 2021 4:44pm 10.7 fL 7.4-10.4 MAIN LAB [address] 35064 Mean Platelet Volume January 07, 2021 5:35pm 11.3 fL 7.4-10.4 MAIN LAB [address] 78325 Mean Platelet Volume January 29, 2021 9:57pm 10.6 fL 7.4-10.4 MAIN LAB [address] [address]10 Mean Platelet Volume March 16, 2021 5:34pm 10.6 fL 7.4-10.4 MAIN LAB [address] 54238 Mean Platelet Volume March 18, 2021 7:56pm 10.4 fL 7.4-10.4 MAIN LAB [address] 89451 Mean Platelet Volume March 20, 2021 4:37pm 9.9 fL 7.4-10.4 MAIN LAB [address] 11095 Mean Platelet Volume August 07, 2021 1:30pm 11.0 fL 7.4-10.[address] 92373 Mean Platelet Volume August 10, 2021 3:14pm 10.7 fL 7.4-10.[address] 77205 Neutrophils (%) (Auto) October 14, 2020 11:38pm 60.3 % 40.0-72.0 MAIN LAB [address] [place] [address] 53329 Neutrophils (%) (Auto) January 02, 2021 4:44pm 64.3 % 40.0-72.[address] 02565 Neutrophils (%) (Auto) January 07, 2021 5:35pm 51.4 % 40.0-72.[address] 09694 Neutrophils (%) (Auto) January 29, 2021 9:57pm 57.7 % 40.0-72.[address] 72582 Neutrophils (%) (Auto) March 16, 2021 5:34pm 62.5 % 40.0-72.[address] 73312 Neutrophils (%) (Auto) March 18, 2021 7:56pm 57.9 % 40.0-72.[address] 05432 Neutrophils (%) (Auto) March 20, 2021 4:37pm 64.0 % 40.0-72.[address] 71964 Neutrophils (%) (Auto) August 07, 2021 1:30pm 67.7 % 40.0-72.[address] 53507 Neutrophils (%) (Auto) August 10, 2021 3:14pm 58.2 % 40.0-72.0 MAIN LAB [address] 13798 Lymphocytes (%) (Auto) October 14, 2020 11:38pm 29.0 % 17-45 MAIN LAB [address] [place] [address] 77426 Lymphocytes (%) (Auto) January 02, 2021 4:44pm 26.3 % 17-45 MAIN LAB [address] 14181 Lymphocytes (%) (Auto) January 07, 2021 5:35pm 37.7 % 17-45 MAIN LAB [address] 59377 Lymphocytes (%) (Auto) January 29, 2021 9:57pm 32.6 % 17-[address] [facility] [address] 31030 Lymphocytes (%) (Auto) March 16, 2021 5:34pm 26.7 % 17-[address] [facility] [address] 70879 Lymphocytes (%) (Auto) March 18, 2021 7:56pm 30.4 % 17-45 MAIN LAB [address] 64645 Lymphocytes (%) (Auto) March 20, 2021 4:37pm 26.1 % 17-[address] [facility] [address] [place] [address] Lymphocytes (%) (Auto) August 07, 2021 1:30pm 24.2 % 17-[address] [facility] [address] 03793 Lymphocytes (%) (Auto) August 10, 2021 3:14pm 32.3 % 17-45 MAIN LAB [address] [place] [address] Monocytes (%) (Auto) October 14, 2020 11:38pm 8.2 % 3-[address] [facility] [address] [place] [address] [place] [address] Monocytes (%) (Auto) January 02, 2021 4:44pm 6.2 % 3-11 MAIN LAB [address] [place] [address] Monocytes (%) (Auto) January 07, 2021 5:35pm 6.0 % 3-11 MAIN LAB [address] 04500 Monocytes (%) (Auto) January 29, 2021 9:57pm 6.5 % 3-[address] [facility] [address] 75842 Monocytes (%) (Auto) March 16, 2021 5:34pm 6.9 % 3-11 MAIN LAB [address] 14237 Monocytes (%) (Auto) March 18, 2021 7:56pm 7.2 % 3-11 MAIN LAB [address] 85745 Monocytes (%) (Auto) March 20, 2021 4:37pm 5.9 % 3-[address] [address] Monocytes (%) (Auto) August 07, 2021 1:30pm 5.9 % 3-[address] 29475 Monocytes (%) (Auto) August 10, 2021 3:14pm 6.6 % 3-11 MAIN LAB [address] 11391 Eosinophils (%) (Auto) October 14, 2020 11:38pm 1.1 % 0-[address] [facility] [address] [place] [address] 88002 Eosinophils (%) (Auto) January 02, 2021 4:44pm 2.2 % 0-[address] 9[address]37 Eosinophils (%) (Auto) January 07, 2021 5:35pm 3.2 % 0-[address] [facility] [address] 28308 Eosinophils (%) (Auto) January 29, 2021 9:57pm 1.7 % 0-[address] [facility] [address] 51199 Eosinophils (%) (Auto) March 16, 2021 5:34pm 2.6 % 0-[address] [facility] [address] 03777 Eosinophils (%) (Auto) March 18, 2021 7:56pm 3.2 % 0-[address] [facility] [address] 34604 Eosinophils (%) (Auto) March 20, 2021 4:37pm 2.8 % 0-[address] 15266 Eosinophils (%) (Auto) August 07, 2021 1:30pm 1.2 % 0-[address] 14201 Eosinophils (%) (Auto) August 10, 2021 3:14pm 2.1 % 0-[address] 43034 Basophils (%) (Auto) October 14, 2020 11:38pm 1.3 % 0-[address] [address] Basophils (%) (Auto) January 02, 2021 4:44pm 0.9 % 0-[address] 54841 Basophils (%) (Auto) January 07, 2021 5:35pm 1.5 % 0-[address] [facility] [address] 69503 Basophils (%) (Auto) January 29, 2021 9:57pm 1.2 % 0-[address] 96996 Basophils (%) (Auto) March 16, 2021 5:34pm 1.1 % 0-[address] 28260 Basophils (%) (Auto) March 18, 2021 7:56pm 1.1 % 0-[address] [facility] [address] 91499 Basophils (%) (Auto) March 20, 2021 4:37pm 1.0 % 0-[address] 49562 Basophils (%) (Auto) August 07, 2021 1:30pm 0.8 % 0-[address] 75696 Basophils (%) (Auto) August 10, 2021 3:14pm 0.6 % 0-1 MAIN LAB [address] 27122 Immature Granulocyte % (Auto) October 14, 2020 11:38pm 0.1 % 0-1 MAIN LAB [address] [place] [address] 95398 Immature Granulocyte % (Auto) January 02, 2021 4:44pm 0.1 % 0-1 MAIN LAB [address] 38965 Immature Granulocyte % (Auto) January 07, 2021 5:35pm 0.2 % 0-1 MAIN LAB [address] 93408 Immature Granulocyte % (Auto) January 29, 2021 9:57pm 0.3 % 0-1 MAIN LAB [address] 53751 Immature Granulocyte % (Auto) March 16, 2021 5:34pm 0.2 % 0-1 MAIN LAB [address] 27533 Immature Granulocyte % (Auto) March 18, 2021 7:56pm 0.2 % 0-1 MAIN LAB [address] 73395 Immature Granulocyte % (Auto) March 20, 2021 4:37pm 0.2 % 0-1 MAIN LAB [address] 07541 Immature Granulocyte % (Auto) August 07, 2021 1:30pm 0.2 % 0-1 MAIN LAB [address] 60034 Immature Granulocyte % (Auto) August 10, 2021 3:14pm 0.2 % 0-1 MAIN LAB [address] 63010 Neutrophils # (Auto) October 14, 2020 11:38pm 4.46 1000/mm3 1.4-6.5 MAIN LAB [address] [place] [address] 61022 Neutrophils # (Auto) January 02, 2021 4:44pm 4.38 1000/mm3 1.4-6.5 MAIN LAB [address] 34177 Neutrophils # (Auto) January 07, 2021 5:35pm 2.74 1000/mm3 1.4-6.5 MAIN LAB [address] 01174 Neutrophils # (Auto) January 29, 2021 9:57pm 3.37 1000/mm3 1.4-6.5 MAIN LAB [address] 75641 Neutrophils # (Auto) March 16, 2021 5:34pm 3.82 1000/mm3 1.4-6.5 MAIN LAB [address] 20852 Neutrophils # (Auto) March 18, 2021 7:56pm 3.04 1000/mm3 1.4-6.5 MAIN LAB [address] 00171 Neutrophils # (Auto) March 20, 2021 4:37pm 3.16 1000/mm3 1.4-6.5 MAIN LAB [address] 57378 Neutrophils # (Auto) August 07, 2021 1:30pm 3.35 1000/mm3 1.4-6.5 MAIN LAB [address] 97493 Neutrophils # (Auto) August 10, 2021 3:14pm 2.81 1000/mm3 1.4-6.5 MAIN LAB [address] 32046 Lymphocytes # (Auto) October 14, 2020 11:38pm 2.15 1000/mm3 1.2-3.4 MAIN LAB [address] [place] [address] 04297 Lymphocytes # (Auto) January 02, 2021 4:44pm 1.79 1000/mm3 1.2-3.4 MAIN LAB [address] 96139 Lymphocytes # (Auto) January 07, 2021 5:35pm 2.01 1000/mm3 1.2-3.4 MAIN LAB [address] 34519 Lymphocytes # (Auto) January 29, 2021 9:57pm 1.91 1000/mm3 1.2-3.4 MAIN LAB [address] 23560 Lymphocytes # (Auto) March 16, 2021 5:34pm 1.63 1000/mm3 1.2-3.4 MAIN LAB [address] 18597 Lymphocytes # (Auto) March 18, 2021 7:56pm 1.60 1000/mm3 1.2-3.4 MAIN LAB [address] 74785 Lymphocytes # (Auto) March 20, 2021 4:37pm 1.29 1000/mm3 1.2-3.4 MAIN LAB [address] 93502 Lymphocytes # (Auto) August 07, 2021 1:30pm 1.20 1000/mm3 1.2-3.4 MAIN LAB [address] 10386 Lymphocytes # (Auto) August 10, 2021 3:14pm 1.56 1000/mm3 1.2-3.4 MAIN LAB [address] 35016 Monocytes # (Auto) October 14, 2020 11:38pm 0.61 1000/mm3 0.0-0.8 MAIN LAB [address] [place] [address] 23469 Monocytes # (Auto) January 02, 2021 4:44pm 0.42 1000/mm3 0.0-0.8 MAIN LAB [address] 57034 Monocytes # (Auto) January 07, 2021 5:35pm 0.32 1000/mm3 0.0-0.8 MAIN LAB [address] 95027 Monocytes # (Auto) January 29, 2021 9:57pm 0.38 1000/mm3 0.0-0.8 MAIN LAB [address] 49868 Monocytes # (Auto) March 16, 2021 5:34pm 0.42 1000/mm3 0.0-0.8 MAIN LAB [address] 17856 Monocytes # (Auto) March 18, 2021 7:56pm 0.38 1000/mm3 0.0-0.8 MAIN LAB [address] 25358 Monocytes # (Auto) March 20, 2021 4:37pm 0.29 1000/mm3 0.0-0.8 MAIN LAB [address] 88187 Monocytes # (Auto) August 07, 2021 1:30pm 0.29 1000/mm3 0.0-0.8 MAIN LAB [address] 33315 Monocytes # (Auto) August 10, 2021 3:14pm 0.32 1000/mm3 0.0-0.8 MAIN LAB [address] 66394 Eosinophils # (Auto) October 14, 2020 11:38pm 0.08 1000/mm3 0.0-0.7 MAIN LAB [address] [place] [address] 03839 Eosinophils # (Auto) January 02, 2021 4:44pm 0.15 1000/mm3 0.0-0.7 MAIN LAB [address] 33185 Eosinophils # (Auto) January 07, 2021 5:35pm 0.17 1000/mm3 0.0-0.7 MAIN LAB [address] 25908 Eosinophils # (Auto) January 29, 2021 9:57pm 0.10 1000/mm3 0.0-0.7 MAIN LAB [address] 49557 Eosinophils # (Auto) March 16, 2021 5:34pm 0.16 1000/mm3 0.0-0.7 MAIN LAB [address] 99777 Eosinophils # (Auto) March 18, 2021 7:56pm 0.17 1000/mm3 0.0-0.7 MAIN LAB [address] 85020 Eosinophils # (Auto) March 20, 2021 4:37pm 0.14 1000/mm3 0.0-0.7 MAIN LAB [address] 63812 Eosinophils # (Auto) August 07, 2021 1:30pm 0.06 1000/mm3 0.0-0.7 MAIN LAB [address] 30212 Eosinophils # (Auto) August 10, 2021 3:14pm 0.10 1000/mm3 0.0-0.7 MAIN LAB [address] 56381 Basophils # (Auto) October 14, 2020 11:38pm 0.10 1000/mm3 0.0-0.1 MAIN LAB [address] [place] [address] 42414 Basophils # (Auto) January 02, 2021 4:44pm 0.06 1000/mm3 0.0-0.1 MAIN LAB [address] 38728 Basophils # (Auto) January 07, 2021 5:35pm 0.08 1000/mm3 0.0-0.1 MAIN LAB [address] 37423 Basophils # (Auto) January 29, 2021 9:57pm 0.07 1000/mm3 0.0-0.[address] [address] Basophils # (Auto) March 16, 2021 5:34pm 0.07 1000/mm3 0.0-0.1 MAIN LAB [address] 52844 Basophils # (Auto) March 18, 2021 7:56pm 0.06 1000/mm3 0.0-0.1 MAIN LAB [address] 12500 Basophils # (Auto) March 20, 2021 4:37pm 0.05 1000/mm3 0.0-0.[address] [facility] [address] 64717 Basophils # (Auto) August 07, 2021 1:30pm 0.04 1000/mm3 0.0-0.1 MAIN LAB [address] 38155 Basophils # (Auto) August 10, 2021 3:14pm 0.03 1000/mm3 0.0-0.1 MAIN LAB [address] 09494 Absolute Immature Granulocyte (auto October 14, 2020 11:38pm 0.0 0-1 MAIN LAB [address] [place] [address] 74566 Absolute Immature Granulocyte (auto January 02, 2021 4:44pm 0.0 0-1 MAIN LAB [address] 84237 Absolute Immature Granulocyte (auto January 07, 2021 5:35pm 0.0 0-1 MAIN LAB [address] 53147 Absolute Immature Granulocyte (auto January 29, 2021 9:57pm 0.0 0-1 MAIN LAB [address] 11406 Absolute Immature Granulocyte (auto March 16, 2021 5:34pm 0.0 0-1 MAIN LAB [address] 91724 Absolute Immature Granulocyte (auto March 18, 2021 7:56pm 0.0 0-1 MAIN LAB [address] 49814 Absolute Immature Granulocyte (auto March 20, 2021 4:37pm 0.0 0-1 MAIN LAB [address] 95465 Absolute Immature Granulocyte (auto August 07, 2021 1:30pm 0.0 0-1 MAIN LAB [address] 12103 Absolute Immature Granulocyte (auto August 10, 2021 3:14pm 0.0 0-1 MAIN LAB [address] 13835 Differential Method October 14, 2020 11:38pm Automated MAIN LAB [address] [place] [address] 63832 Differential Method January 02, 2021 4:44pm Automated MAIN LAB [address] 43532 Differential Method January 07, 2021 5:35pm Automated MAIN LAB [address] 40070 Differential Method January 29, 2021 9:57pm Automated MAIN LAB [address] 94166 Differential Method March 16, 2021 5:34pm Automated MAIN LAB [address] 36543 Differential Method March 18, 2021 7:56pm Automated MAIN LAB [address] 89570 Differential Method March 20, 2021 4:37pm Automated MAIN LAB [address] 69693 Differential Method August 07, 2021 1:30pm Automated MAIN LAB [address] 52962 Differential Method August 10, 2021 3:14pm Automated MAIN LAB [address] 9[address]01 Differential Pathologist's Review October 14, 2020 11:38pm See comment No comparison data on file at [facility] [place] Microcytic hypochromic anemia, consistent with iron deficiency.S mear reviewed by pathologist for quality assurance coordinator.Hair Mello MD10/15/20 MAIN LAB [address] [place] [address] 32274 Prothrombin Time October 14, 2020 11:38pm 10.8 SECONDS 9.6-11.2 MAIN [facility] [address] [place] [address] 97657 Prothromb Time International Ratio October 14, 2020 11:38pm 1.1 2.0-3.0 INR value valid only on patients on stabilized warfarin therapy. The recommended therapeutic range for warfarin (Coumadin) for most clinical indications is an INR of 2.0-3.0. An INR of 2.5-3.5 is recommended for patients with mechanical heart valves. MAIN LAB [address] [place] [address] Activated Partial Thromboplast Time October 14, 2020 11:38pm 26.1 SECONDS 21.6-36.0 A target of 1.5-2.5 times the mean of the normal reference range is considered therapeutic. NOTE: APTT must NOT be used to monitor LMWH therapy. Contact [facility] for monitoring information. MAIN LAB [address] [place] [address] Urine Color January 02, 2021 6:04pm Lauren MAIN LAB [address] [address] Urine Clarity January 02, 2021 6:04pm very cloudy MAIN LAB [address] [address] Urine pH January 02, 2021 6:04pm 6.0 MAIN LAB [address] [address] Urine Specific [place] January 02, 2021 6:04pm 1.015 MAIN LAB [address] [address]015 Urine Protein January 02, 2021 6:04pm 100 (2+) mg/dL NEGATIVE MAIN LAB [address] [address] Urine Glucose (UA) January 02, 2021 6:04pm Normal mg/dL NORMAL MAIN LAB [address] 10957 Urine Ketones January 02, 2021 6:04pm Negative NEGATIVE MAIN LAB [address] 80385 Urine Nitrite January 02, 2021 6:04pm Negative Negative MAIN LAB [address] [address]71 Urine Bilirubin January 02, 2021 6:04pm Negative mg/dL NEGATIVE MAIN LAB [address] [address]131 Urine Urobilinogen January 02, 2021 6:04pm Normal mg/dL NORMAL MAIN LAB [address] 80758 Urine Leukocyte Esterase January 02, 2021 6:04pm Moderate (2+) WBC/uL NEGATIVE MAIN LAB [address] [address] Urine Blood January 02, 2021 6:04pm Large (3+) JOEL/uL NEGATIVE MAIN LAB [address] 738[address] Urine RBC October 14, 2020 11:45pm 10-20 /hpf MAIN LAB [address] [place] [address] 52181 Urine RBC January 02, 2021 6:04pm Tntc /hpf MAIN LAB [address] [address] Urine RBC March 16, 2021 6:40pm Tntc /hpf MAIN LAB [address] 88619 Urine RBC June 27, 2021 4:10pm 0-2 /hpf MAIN LAB [address] 589[address] Urine WBC October 14, 2020 11:45pm 0-2 /hpf MAIN LAB [address] [place] [address] 29879 Urine WBC January 02, 2021 6:04pm 3-5 /hpf MAIN LAB [address] [address]378 Urine WBC March 16, 2021 6:40pm See comment /hpf Microscopic field obscured by RBC. MAIN LAB [address] [address] Urine WBC June 27, 2021 4:10pm None seen /hpf MAIN LAB [address] 68673 Urine Squamous Epithelial Cells January 02, 2021 6:04pm 1+ /hpf MAIN LAB [address] 37093 Urine Squamous Epithelial Cells June 27, 2021 4:10pm 2+ /hpf MAIN LAB [address] 23642 Urine Bacteria October 14, 2020 11:45pm 1+ /hpf NONE SEEN MAIN LAB [address] [place] [address] 20223 Urine Bacteria January 02, 2021 6:04pm None seen /hpf NONE SEEN MAIN LAB [address] 69999 Urine Bacteria March 16, 2021 6:40pm See comment /hpf NONE SEEN Microscopic field obscured by RBC. MAIN LAB [address] 12362 Urine Bacteria June 27, 2021 4:10pm 1+ /hpf NONE SEEN MAIN LAB [address] 85251 Urine Mucus October 14, 2020 11:45pm Present MAIN LAB [address] [place] [address] 97063 Urine Mucus June 27, 2021 4:10pm Present MAIN LAB [address] [address] Urine Culture Done October 14, 2020 11:45pm No CULTURE NOT INDICATED. MAIN LAB [address] [place] [address] 37139 Urine Culture Done January 02, 2021 6:04pm Yes URINE SPECIMEN CULTURED MAIN LAB [address] [address]46 Urine Culture Done March 16, 2021 6:40pm Yes URINE SPECIMEN CULTURED MAIN LAB [address] [address]279 Urine Culture Done June 27, 2021 4:10pm No CULTURE NOT INDICATED. MAIN LAB [address] [address] Urine Test January 02, 2021 6:04pm Negative NEGATIVE MAIN LAB [facility] [address] [facility] [address] Sodium Level October 14, 2020 11:38pm 138 mmol/L 137-145 MAIN LAB [address] [facility] 150[address] Sodium Level January 02, 2021 4:44pm 141 mmol/L 137-145 MAIN LAB [facility] [address] [facility] [address] Sodium Level January 07, 2021 5:35pm 140 mmol/L 137-145 MAIN LAB [address] 016[address] Sodium Level January 29, 2021 9:57pm 137 mmol/L 137-145 MAIN LAB [address] [address] Sodium Level March 16, 2021 5:34pm 137 mmol/L 137-145 MAIN LAB [address] 92370 Sodium Level March 18, 2021 7:56pm 141 mmol/L 137-145 MAIN LAB [address] 73655 Sodium Level March 20, 2021 5:04pm 140 mmol/L 137-145 MAIN LAB [address] 44819 Sodium Level August 07, 2021 1:30pm 141 mmol/L 137-145 MAIN LAB [address] 26217 Sodium Level August 10, 2021 3:14pm 140 mmol/L 137-145 MAIN LAB [address] [address] Potassium Level October 14, 2020 11:38pm 3.8 mmol/L 3.6-5.0 MAIN LAB [address] [place] [address] 84011 Potassium Level January 02, 2021 4:44pm 3.9 mmol/L 3.6-5.0 MAIN LAB [address] [address]111 Potassium Level January 07, 2021 5:35pm 3.7 mmol/L 3.6-5.0 MAIN LAB [facility] [address] [facility] [address] Potassium Level January 29, 2021 9:57pm 3.5 mmol/L 3.6-5.0 MAIN LAB [facility] [address] [facility] [address] Potassium Level March 16, 2021 5:34pm 4.0 mmol/L 3.6-5.0 MAIN LAB [facility] [address] [facility] 89385 Potassium Level March 18, 2021 7:56pm 3.4 mmol/L 3.6-5.0 MAIN LAB [facility] [address] [facility] 464[address] Potassium Level March 20, 2021 5:04pm 3.8 mmol/L 3.6-5.0 MAIN LAB [address] [address]625 Potassium Level August 07, 2021 1:30pm 4.3 mmol/L 3.6-5.0 MAIN LAB [address] 40065 Potassium Level August 10, 2021 3:14pm 4.0 mmol/L 3.6-5.0 MAIN LAB [address] [address]174 Chloride Level October 14, 2020 11:38pm 100 mmol/L 98-107 MAIN LAB [address] [place] [address] 97235 Chloride Level January 02, 2021 4:44pm 104 mmol/L 98-107 MAIN LAB [address] 8[address]11 Chloride Level January 07, 2021 5:35pm 103 mmol/L 98-107 MAIN LAB [facility] [address] [facility] 64456 Chloride Level January 29, 2021 9:57pm 99 mmol/L 98-107 MAIN LAB [facility] [address] [facility] 10262 Chloride Level March 16, 2021 5:34pm 102 mmol/L 98-107 MAIN LAB [address] 93408 Chloride Level March 18, 2021 7:56pm 102 mmol/L 98-107 MAIN LAB [address] [address]56 Chloride Level March 20, 2021 5:04pm 103 mmol/L 98-107 MAIN LAB [address] 83181 Chloride Level August 07, 2021 1:30pm 105 mmol/L 98-107 MAIN LAB [facility] [address] [facility] 6[address] Chloride Level August 10, 2021 3:14pm 103 mmol/L 98-107 MAIN LAB [facility] [address] [facility] 14293 Carbon Dioxide Level October 14, 2020 11:38pm 25 mmol/L 22-30 MAIN LAB [address] [place] [address] 49690 Carbon Dioxide Level January 02, 2021 4:44pm 26 mmol/L 22-30 MAIN LAB [facility] [address] [facility] 270[address] Carbon Dioxide Level January 07, 2021 5:35pm 27 mmol/L 22-30 MAIN LAB [address] 32463 Carbon Dioxide Level January 29, 2021 9:57pm 27 mmol/L 22-30 MAIN LAB [address] 12088 Carbon Dioxide Level March 16, 2021 5:34pm 28 mmol/L 22-30 MAIN LAB [address] [address]31 Carbon Dioxide Level March 18, 2021 7:56pm 29 mmol/L 22-30 MAIN LAB [address] 03669 Carbon Dioxide Level March 20, 2021 5:04pm 27 mmol/L 22-30 MAIN LAB [address] 18444 Carbon Dioxide Level August 07, 2021 1:30pm 24 mmol/L 22-30 MAIN LAB [facility] [address] [facility] 5[address] Carbon Dioxide Level August 10, 2021 3:14pm 26 mmol/L 22-30 MAIN LAB [facility] [address] [facility] [address] Anion Gap October 14, 2020 11:38pm 13 7-16 MAIN LAB [address] [facility] [address] Anion Gap January 02, 2021 4:44pm 11 7-16 MAIN LAB [facility] [address] [facility] 56707 Anion Gap January 07, 2021 5:35pm 10 7-16 MAIN LAB [facility] [address] [facility] 13595 Anion Gap January 29, 2021 9:57pm 11 7-16 MAIN LAB [facility] [address] [facility] 31384 Anion Gap March 16, 2021 5:34pm 7 7-16 MAIN LAB [facility] [address] [facility] 79971 Anion Gap March 18, 2021 7:56pm 10 7-16 MAIN LAB [facility] [address] [facility] 55349 Anion Gap March 20, 2021 5:04pm 10 7-16 MAIN LAB [address] 8[address] Anion Gap August 07, 2021 1:30pm 12 7-16 MAIN LAB [address] 62011 Anion Gap August 10, 2021 3:14pm 11 7- MAIN LAB [address] [address]015 Blood Urea Nitrogen October 14, 2020 11:38pm 15 mg/dL 7-17 MAIN LAB [address] [place] [address]19 Blood Urea Nitrogen January 02, 2021 4:44pm 11 mg/dL 7-17 MAIN LAB [address] 95268 Blood Urea Nitrogen January 07, 2021 5:35pm 13 mg/dL 7-17 MAIN LAB [address] 59039 Blood Urea Nitrogen January 29, 2021 9:57pm 13 mg/dL 7-17 MAIN LAB [facility] [address] [facility] 85957 Blood Urea Nitrogen March 16, 2021 5:34pm 10 mg/dL 7-17 MAIN LAB [address] 05964 Blood Urea Nitrogen March 18, 2021 7:56pm 10 mg/dL 7-17 MAIN LAB [address] 93966 Blood Urea Nitrogen March 20, 2021 5:04pm 5 mg/dL 7-17 MAIN LAB [address] 29200 Blood Urea Nitrogen August 07, 2021 1:30pm 14 mg/dL 7-17 MAIN LAB [facility] [address] [facility] 63134 Blood Urea Nitrogen August 10, 2021 3:14pm 7 mg/dL 7-17 MAIN LAB [facility] [address] [facility] 04[address] Creatinine October 14, 2020 11:38pm 0.76 mg/dL 0.52-1.04 MAIN LAB [address] [place] [address] 32350 Creatinine January 02, 2021 4:44pm 0.76 mg/dL 0.52-1.04 MAIN LAB [address] [address] Creatinine January 07, 2021 5:35pm 0.79 mg/dL 0.52-1.04 MAIN LAB [address] 41012 Creatinine January 29, 2021 9:57pm 0.84 mg/dL 0.52-1.04 MAIN LAB [address] 77076 Creatinine March 16, 2021 5:34pm 0.62 mg/dL 0.52-1.04 MAIN LAB [address] 44487 Creatinine March 18, 2021 7:56pm 0.66 mg/dL 0.52-1.04 MAIN LAB [address] 33839 Creatinine March 20, 2021 5:04pm 0.59 mg/dL 0.52-1.04 MAIN LAB [address] 46836 Creatinine August 07, 2021 1:30pm 0.65 mg/dL 0.52-1.04 MAIN LAB [address] 72164 Creatinine August 10, 2021 3:14pm 0.60 mg/dL 0.52-1.04 MAIN LAB [address] 01408 Glomerular Filtration Rate Calc October 14, 2020 11:38pm > 60 mL/min >60.0 MAIN LAB [address] [place] [address] 36584 Glomerular Filtration Rate Calc January 02, 2021 4:44pm > 60 mL/min >60.0 MAIN LAB [address] [address] Glomerular Filtration Rate Calc January 07, 2021 5:35pm > 60 mL/min >60.0 MAIN LAB [facility] [address] [facility] 93[address] Glomerular Filtration Rate Calc January 29, 2021 9:57pm > 60 mL/min >60.0 MAIN LAB [address] 28234 Glomerular Filtration Rate Calc March 16, 2021 5:34pm > 60 mL/min >60.0 MAIN LAB [address] 89345 Glomerular Filtration Rate Calc March 18, 2021 7:56pm > 60 mL/min >60.0 MAIN LAB [address] 80039 Glomerular Filtration Rate Calc March 20, 2021 5:04pm > 60 mL/min >60.0 MAIN LAB [address] 36377 Glomerular Filtration Rate Calc August 07, 2021 1:30pm > 60 mL/min >60.0 MAIN LAB [address] 31517 Glomerular Filtration Rate Calc August 10, 2021 3:14pm > 60 mL/min >60.0 MAIN LAB [address] 80521 Glucose Level October 14, 2020 11:38pm 88 mg/dL 70-100 MAIN LAB [address] [place] [address] 69647 Glucose Level January 02, 2021 4:44pm 88 mg/dL 70-100 MAIN LAB [address] 93017 Glucose Level January 07, 2021 5:35pm 105 mg/dL 70-100 MAIN LAB [address] 87536 Glucose Level January 29, 2021 9:57pm 92 mg/dL 70-100 MAIN LAB [address] 79680 Glucose Level March 16, 2021 5:34pm 90 mg/dL 70-100 MAIN LAB [address] 74162 Glucose Level March 18, 2021 7:56pm 84 mg/dL 70-100 MAIN LAB [address] 72591 Glucose Level March 20, 2021 5:04pm 91 mg/dL 70-100 MAIN LAB [address] 56771 Glucose Level August 07, 2021 1:30pm 100 mg/dL 70-100 MAIN LAB [address] 16956 Glucose Level August 10, 2021 3:14pm 85 mg/dL 70-100 MAIN LAB [address] 42978 Calcium Level October 14, 2020 11:38pm 9.3 mg/dL 8.4-10.2 MAIN LAB [address] [place] [address] 32425 Calcium Level January 02, 2021 4:44pm 9.3 mg/dL 8.4-10.2 MAIN LAB [address] 24083 Calcium Level January 07, 2021 5:35pm 9.6 mg/dL 8.4-10.2 MAIN LAB [address] 16326 Calcium Level January 29, 2021 9:57pm 9.8 mg/dL 8.4-10.2 MAIN LAB [address] 92862 Calcium Level March 16, 2021 5:34pm 9.5 mg/dL 8.4-10.2 MAIN LAB [address] 31762 Calcium Level March 18, 2021 7:56pm 9.3 mg/dL 8.4-10.2 MAIN LAB [address] 38261 Calcium Level March 20, 2021 5:04pm 9.4 mg/dL 8.4-10.2 MAIN LAB [address] 00789 Calcium Level August 07, 2021 1:30pm 9.8 mg/dL 8.4-10.2 MAIN LAB [address] 68611 Calcium Level August 10, 2021 3:14pm 9.2 mg/dL 8.4-10.2 MAIN LAB [address] 37844 Calcium Adjusted for Albumin October 14, 2020 11:38pm 9.2 mg/dL 8.4-10.2 MAIN LAB [address] [place] [address] 60413 Calcium Adjusted for Albumin January 02, 2021 4:44pm 8.8 mg/dL 8.4-10.2 MAIN LAB [address] 62606 Calcium Adjusted for Albumin January 07, 2021 5:35pm 9.3 mg/dL 8.4-10.2 MAIN LAB [address] 06157 Calcium Adjusted for Albumin March 16, 2021 5:34pm 9.4 mg/dL 8.4-10.2 MAIN LAB [address] 26535 Calcium Adjusted for Albumin March 18, 2021 7:56pm 9.1 mg/dL 8.4-10.2 MAIN LAB [address] 34155 Calcium Adjusted for Albumin August 07, 2021 1:30pm 9.2 mg/dL 8.4-10.2 MAIN LAB [address] 15005 Iron Level October 14, 2020 11:38pm 36 ug/dL 37-170 MAIN LAB [address] [place] [address] 98376 Total Bilirubin October 14, 2020 11:38pm 0.3 mg/dL 0.2-1.3 MAIN LAB [address] [place] [address] 95804 Total Bilirubin January 02, 2021 4:44pm 0.4 mg/dL 0.2-1.3 MAIN LAB [address] 04930 Total Bilirubin January 07, 2021 5:35pm 0.4 mg/dL 0.2-1.3 MAIN LAB [address] 78022 Total Bilirubin March 16, 2021 5:34pm 0.4 mg/dL 0.2-1.3 MAIN LAB [address] 74369 Total Bilirubin March 18, 2021 7:56pm 0.4 mg/dL 0.2-1.3 MAIN LAB [address] 82656 Total Bilirubin August 07, 2021 1:30pm 0.6 mg/dL 0.2-1.3 MAIN LAB [address] 81290 Aspartate Amino Transf (AST/SGOT) October 14, 2020 11:38pm 55 U/L 14-36 MAIN LAB [address] [place] [address] 56777 Aspartate Amino Transf (AST/SGOT) January 02, 2021 4:44pm 39 U/L 14-36 MAIN LAB [address] 89727 Aspartate Amino Transf (AST/SGOT) January 07, 2021 5:35pm 38 U/L 14-36 MAIN LAB [address] 55694 Aspartate Amino Transf (AST/SGOT) March 16, 2021 5:34pm 36 U/L 14-36 MAIN LAB [address] 83909 Aspartate Amino Transf (AST/SGOT) March 18, 2021 7:56pm 37 U/L 14-36 MAIN LAB [address] 94869 Aspartate Amino Transf (AST/SGOT) August 07, 2021 1:30pm 48 U/L 14-36 MAIN LAB [address] [address]50 Alanine Aminotransferase (ALT/SGPT) October 14, 2020 11:38pm 41 U/L <35 As of 09/13/19, the Reference Range for ALT/SGPT for adult patients has been updated. The Reference Range for ALT/SGPT has not been established for patients <18 years of age. MAIN LAB [address] [place] [address] 62053 Alanine Aminotransferase (ALT/SGPT) January 02, 2021 4:44pm 21 U/L <35 As of 09/13/19, the Reference Range for ALT/SGPT for adult patients has been updated. The Reference Range for ALT/SGPT has not been established for patients <18 years of age. MAIN LAB [address] [address] Alanine Aminotransferase (ALT/SGPT) January 07, 2021 5:35pm 23 U/L <35 As of 09/13/19, the Reference Range for ALT/SGPT for adult patients has been updated. The Reference Range for ALT/SGPT has not been established for patients <18 years of age. MAIN LAB [address] [address] Alanine Aminotransferase (ALT/SGPT) March 16, 2021 5:34pm 17 U/L <35 As of 09/13/19, the Reference Range for ALT/SGPT for adult patients has been updated. The Reference Range for ALT/SGPT has not been established for patients <18 years of age. MAIN LAB [address] [address] Alanine Aminotransferase (ALT/SGPT) March 18, 2021 7:56pm 19 U/L <35 As of 09/13/19, the Reference Range for ALT/SGPT for adult patients has been updated. The Reference Range for ALT/SGPT has not been established for patients <18 years of age. MAIN LAB [address] [address]673 Alanine Aminotransferase (ALT/SGPT) August 07, 2021 1:30pm 36 U/L <35 As of 09/13/19, the Reference Range for ALT/SGPT for adult patients has been updated. The Reference Range for ALT/SGPT has not been established for patients <18 years of age. MAIN LAB [address] [address] Lactic Acid Level March 18, 2021 7:56pm 1.0 mmol/L 0.7-2.1 MAIN LAB [address] 02384 Total Protein October 14, 2020 11:38pm 7.4 g/dL 6.3-8.2 MAIN LAB [address] [place] [address] 48263 Total Protein January 02, 2021 4:44pm 7.9 g/dL 6.3-8.2 MAIN LAB [address] [address]33 Total Protein January 07, 2021 5:35pm 7.7 g/dL 6.3-8.2 MAIN LAB [address] [place] [address] Total Protein March 16, 2021 5:34pm 7.2 g/dL 6.3-8.2 MAIN LAB [facility] [address] [facility] [address] Total Protein March 18, 2021 7:56pm 7.6 g/dL 6.3-8.2 MAIN LAB [address] 11014 Total Protein August 07, 2021 1:30pm 8.3 g/dL 6.3-8.2 MAIN LAB [address] 48049 Albumin October 14, 2020 11:38pm 4.4 g/dL 3.5-5.0 MAIN LAB [address] [place] [address] 65850 Albumin January 02, 2021 4:44pm 4.9 g/dL 3.5-5.0 MAIN LAB [address] 01718 Albumin January 07, 2021 5:35pm 4.7 g/dL 3.5-5.0 MAIN LAB [address] 19966 Albumin March 16, 2021 5:34pm 4.4 g/dL 3.5-5.0 MAIN LAB [address] 80172 Albumin March 18, 2021 7:56pm 4.6 g/dL 3.5-5.0 MAIN LAB [address] 32531 Albumin August 07, 2021 1:30pm 5.0 g/dL 3.5-5.0 MAIN LAB [address] 64455 Alkaline Phosphatase October 14, 2020 11:38pm 55 U/L 38-126 MAIN LAB [address] [place] [address] 96690 Alkaline Phosphatase January 02, 2021 4:44pm 58 U/L 38-126 MAIN LAB [address] 04787 Alkaline Phosphatase January 07, 2021 5:35pm 58 U/L 38-126 MAIN LAB [address] 39958 Alkaline Phosphatase March 16, 2021 5:34pm 45 U/L 38-126 MAIN LAB [address] 46385 Alkaline Phosphatase March 18, 2021 7:56pm 47 U/L 38-126 MAIN LAB [address] 75641 Alkaline Phosphatase August 07, 2021 1:30pm 58 U/L 38-126 MAIN LAB [address] 84607 Lipase October 14, 2020 11:38pm 43 U/L 23-300 MAIN LAB [address] [place] [address] 41439 Lipase August 07, 2021 1:30pm 64 U/L 23-300 MAIN LAB [address] [address]309 Ferritin October 14, 2020 11:38pm 4.43 ng/mL 10-291 The results of this assay can be falsely decreased in patients who consume Biotin. MAIN LAB [address] [place] [address]166 Microbiology Results Procedure Source Result Collection Date/Time Result Date/Time Result Comment Performing Site Blood Culture Blood, Left Antecubital NO GROWTH AFTER 5 DAYS March 18, 2021 9:10pm March 24, 2021 7:15am MAIN LAB [address] [address] Urine Culture Ur,Clean Catch January 02, 2021 6:40pm January 04, 2021 8:36am [facility] [address] [address] Urine Culture Ur,Clean Catch March 16, 2021 7:39pm March 18, 2021 10:45am MAIN LAB [address] [address] Gram Stain Umbilicus March 16, 2021 10:27am March 17, 2021 8:17am [facility] [address] [address] Routine Culture Umbilicus Staphylococcus Aureus-Mrsa March 16, 2021 10:27am March 20, 2021 8:34am MAIN LAB [address] [address] Diagnostic Imaging Reports Report Dictated Date/Time Dictated By Status Radiology Report January 02, 2021 5:42pm Megan Balderas MD completed [facility] CAT SCAN REPORT PATIENT NAME: [...] 16, 2021 8:09pm Tiburcio Heaton MD completed [facility] CAT SCAN REPORT PATIENT NAME: [...] had a laporoscopy compelted on 03/05/21, at [facility] [place]. States she is having sharp cramping stabbing [...] 07, 2021 4:03pm Yuli Jiang DO completed [facility] CAT SCAN REPORT PATIENT NAME: [...] 2020 10:53pm Respiratory rate 16 /min -October 14, 2 021 10:53pm Oxygen saturation by Pulse oximetry [...] 27, 2021 2:20pm Respiratory rate 18 /min -24 March 272020 2:20pm Oxygen saturation by Pulse oximetry 98 % 95-100 March 27, 2021 2:20pm BP Systolic 106 mm[Hg] 100-140 March 27, 2021 2:20pm BP Diastolic 59 mm[Hg] 50-85 March 27, 2021 2:20pm Weight 86.18 kg June 27, 2021 3:33pm Body Temperature 98.2 [degF] 97.6-99.6 June 272021 3:33pm Heart Rate 75 /min 60-100 June 27, 2021 3:33pm Respiratory rate 18 /min 12-June 272021 3:33pm Oxygen saturation by Pulse oximetry [...] Diastolic 69 mm[Hg] 50-85 August 10 5:10pm Advance Directives Advance Directive Response Recorded Date/ Time Does patient have an Advanced Directive? No October 14, 2020 11:22pm Do we have a copy on file here at [facility]? No October 14, 2020 11:22pm Pt has a Living Will? No October 14, 2020 11:22pm Do we have a copy on file here at [facility]? No October 14, 2020 11:22pm Pt has a Power of Complex Director? No October 14, 2020 11:22pm Do we have a copy on file here at [facility]? No October 14, 2020 11:22pm Insurance Providers Guarantor EDUARDO PAYAN Address [address] [place] [address] Contact Info. Home Phone: Payer Policy Id Coverage Id Subscriber's Name Subscriber Id Effective Date Expiration Date MIGUEL ANGEL MCNAMARA [id number] EDUARDO PAYAN [id number] SELF PAY Self N/A Encounters Encounter Location(s) Arrival/Admit Date Discharge/Depart Date Provider(s) Departed Emergency [facility] October 14, 2020 10:48pm October 15, 2020 12:54am null Departed Emergency [facility] December 29, 2020 4:23pm December 29, 2020 7:13pm null Departed Emergency [facility] January 02, 2021 4:12pm January 02, 2021 7:22pm null Departed Emergency [facility] January 07, 2021 4:48pm January 07, 2021 6:55pm null Departed Emergency [facility] January 21, 2021 2:24pm January 21, 2021 4:51pm null Departed Emergency [facility] January 29, 2021 8:55pm January 29, 2021 11:08pm null Departed Emergency [facility] March 16, 2021 3:28pm March 16, 2021 10:43pm null Departed Emergency [facility] March 18, 2021 6:11pm March 18, 2021 9:19pm null Departed Emergency [facility] March 20, 2021 2:33pm March 20, 2021 6:25pm null Departed Emergency [facility] March 27, 2021 12:49pm March 27, 2021 3:32pm null Departed Emergency [facility] June 27, 2021 3:30pm June 27, 2021 5:01pm null Departed Emergency [facility] August 07, 2021 11:58am August 07, 2021 5:15pm null Departed Emergency [facility] August 10, 2021 2:19pm August 10, 2021 5:11pm null Functional Status Observation Response Date Recorded Living Situation Home August 10 5:10pm Mental Status Observation Response Date Recorded Comprehension Ability Understands Concepts Juan wiley 2020 9:35pm Mood/Behavior Anxious January 29, 2021 9:35pm Comprehension Ability Understands Concepts Augus t 2020 5:40pm Mood/Behavior Anxious January 07 5:40pm Comprehension Ability Understands Concepts Augus 2020 4:30pm Mood/Behavior Appropriate January 02 4:30pm Comprehension Ability Understands Concepts 2020 8:30pm Speech [...] Date Provider Provider Contact Information Provider Address [facility] Work Phone: [facility] [address] [place] [phone] Out Town Out Town [place] [facility] [place] Emely holloway MD Work Phone: [facility] [address] [place] [phone] Chavez and will see for [facility] Work Phone: [address] [place] [phone] No Pcp Mahad Chavez MD Work Phone: [facility] [address] [place] [phone] No Pcp No Pcp No Pcp [facility] Work Phone: [address] [place] [phone] No Pcp No Pcp No Pcp Future [...] Adult (DC) Pelvic [facility] ([facility] Discharge Instructions Additional Instructions We do recommend that you get [...]
--- OUTSIDE RECORDS SUMMARY | 2022-11-20 17:48 | XMS_ITS | Continuity of Care Document ---
Author Name Unknown Address [address] [place] [address] Phone [facility] Address [address] [place] [address] Phone Care Team Providers Care License Registration Examiner Name Role Phone PCP, of Choice Primary Care Provider Unavailabl e Chief Complaint and Reason for Visit Chief Complaint LEFT FLANK PAIN ORAL INFECTION RECTAL BLEEDING abdominal pain OVARIAN CYST POST OP CONCERN Allergies, Adverse Reactions, Alerts [...] Observa tion Never smoked tobacco (finding) March 16, 2021 4:09pm Observation Status Observation Response Date of Response Alcohol Use Yes March 16 4:09pm alcohol intake frequency a few times a month Nov osvaldo 2020 4:09pm Alcohol type hard liquor March 16 4:09pm Substance/Street Drug Use Yes Novemb er 2020 4:09pm substance use type marijuana March 16, 2021 4:09pm Smoking Status Never smoker March 16 4:09pm Additional Data Assigned Sex Female Problems Active Problems Medical Problem Onset Date Status Ovarian cyst Active Inactive/Resolved Problems Medical Problem Onset Date Status Functional abdominal pain syndrome Resolved Gastritis Resolved Pain, dental Resolved Pain, dental Resolved [...] MG PO DAILY October 15, 2020 2:57pm [facility] 2020 5:42pm Hydrocodone- Acetaminophe n Discontin ued TABLET December 29, 2020 4:35pm January 07, 2021 5:04pm Cefdinir Discontin ued 300 MG PO TWICE A DAY [facility] 2020 4:03pm Septem rinku 2020 9:07pm Tramadol Discontin ued 50 MG PO Q8H 10 [facility] 2020 4:44pm Septem rinku 2020 9:06pm Gabapentin Active 200 MG PO DAILY January 02, 2021 5:12pm Hydrocodone- Acetaminophe n Discontin ued 1 TAB PO Q6H January 02, 2021 6:26pm January 07, 2021 5:04pm Ondansetron Active 4 MG PO Q6H 10 t 2020 6:26pm Famotidine-C a Carb-Mag Hydrox (Pepcid Complete) 10-800-165 mg tablet,chewa ble Discontin ued 1 TAB PO DAILY January 08, 2021 1:50am Septem 2020 9:07pm Dicyclomine Discontin ued 10 MG PO .q6 prn January 08, 2021 1:51am Septem 2020 3:08pm Oxycodone Active MG CAPSULE Novemb e r 2020 3:59pm Fluticasone Propion-Salm eterol (Advair Hfa) 115-21 mcg/actuatio n HFA aerosol inhaler Active INH Novembe r 2020 3:59pm Procedures Procedure Date Performed Status CT Abd Pel w/ Contrast March 16, 2021 4:09pm completed Urine Culture March 16, [address] Abd Pel w/ Contrast January 02, 2021 4:51pm completed Urine Culture January 02, 2021 completed Relevant Diagnostic Tests and/or Laboratory Data Laboratory Results Test Date/Time Result Interpretation Reference Range Result Comment Performing Site White Blood Count October 14, 2020 11:38pm 7.41 1000/mm3 4.8-10.8 MAIN [facility] [address] [place] [address] White Blood Count January 02, 2021 4:44pm 6.81 1000/mm3 4.8-10.8 MAIN LAB [address] [address] White Blood Count January 07, 2021 5:35pm 5.33 1000/mm3 4.8-10.8 MAIN LAB [address] [address] White Blood Count January 29, 2021 9:57pm 5.85 1000/mm3 4.8-10.8 MAIN LAB [address] [address] White Blood Count March 16, 2021 5:34pm 6.11 1000/mm3 4.8-10.8 MAIN LAB [address] [address] Red Blood Count October 14, 2020 11:38pm 4.44 M/mm3 4.20-5.40 MAIN LAB [address] [place] [address] Red Blood Count January 02, 2021 4:44pm 4.67 M/mm3 4.20-5.40 MAIN LAB [facility] [address] [facility] [address] Red Blood Count January 07, 2021 5:35pm 4.85 M/mm3 4.20-5.40 MAIN LAB [facility] [address] [facility] [address] Red Blood Count January 29, 2021 9:57pm 4.53 M/mm3 4.20-5.40 MAIN LAB [facility] [address] [facility] [address] Red Blood Count March 16, 2021 5:34pm 4.26 M/mm3 4.20-5.40 MAIN LAB [address] [address] Hemoglobin October 14, 2020 11:38pm 9.2 g/dL 12.0-16.0 MAIN LAB [address] [place] [address]188 Hemoglobin January 02, 2021 4:44pm 10.4 g/dL 12.0-16.0 MAIN LAB [address] [address]89 Hemoglobin January 07, 2021 5:35pm 10.8 g/dL 12.0-16.0 MAIN LAB [address] [address]65 Hemoglobin January 29, 2021 9:57pm 10.4 g/dL 12.0-16.0 MAIN LAB [address] [address] Hemoglobin March 16, 2021 5:34pm 9.9 g/dL 12.0-16.0 MAIN LAB [address] [address] Hematocrit October 14, 2020 11:38pm 30.6 % 37-47 MAIN [facility] [address] [place] [address] 65165 Hematocrit January 02, 2021 4:44pm 35.2 % 37-47 MAIN LAB [address] [address] Hematocrit January 07, 2021 5:35pm 36.3 % 37-47 MAIN LAB [address] [address] Hematocrit January 29, 2021 9:57pm 33.7 % 37-47 MAIN LAB [address] [place] [address] Hematocrit March 16, 2021 5:34pm 33.2 % 37-47 MAIN LAB [facility] [address] [facility] [address] Mean Corpuscular Volume October 14, 2020 11:38pm 68.9 fL 81.0-99.0 MAIN LAB [address] [place] [address] 86370 Mean Corpuscular Volume January 02, 2021 4:44pm 75.4 fL 81.0-99.0 MAIN LAB [address] [address] Mean Corpuscular Volume January 07, 2021 5:35pm 74.8 fL 81.0-99.0 MAIN LAB [address] [address]39 Mean Corpuscular Volume January 29, 2021 9:57pm 74.4 fL 81.0-99.0 MAIN LAB [address] 96534 Mean Corpuscular Volume March 16, 2021 5:34pm 77.9 fL 81.0-99.0 MAIN LAB [address] 96032 Mean Corpuscular Hemoglobin October 14, 2020 11:38pm 20.7 pg 27-31 MAIN LAB [address] [place] [address] 43885 Mean Corpuscular Hemoglobin January 02, 2021 4:44pm 22.3 pg 27-31 MAIN LAB [address] [address]28 Mean Corpuscular Hemoglobin January 07, 2021 5:35pm 22.3 pg 27-31 MAIN LAB [address] [address] Mean Corpuscular Hemoglobin January 29, 2021 9:57pm 23.0 pg 27-31 MAIN LAB [address] [address] Mean Corpuscular Hemoglobin March 16, 2021 5:34pm 23.2 pg 27-31 MAIN LAB [address] 42069 Mean Corpuscular Hemoglobin Concent October 14, 2020 11:38pm 30.1 g/dL 33-37 MAIN LAB [address] [facility] [address] Mean Corpuscular Hemoglobin Concent January 02, 2021 4:44pm 29.5 g/dL 33- MAIN LAB [facility] [address] [facility] [address] Mean Corpuscular Hemoglobin Concent January 07, 2021 5:35pm 29.8 g/dL 33- MAIN LAB [facility] [address] [facility] [address] Mean Corpuscular Hemoglobin Concent January 29, 2021 9:57pm 30.9 g/dL 33- MAIN LAB [address] [address]658 Mean Corpuscular Hemoglobin Concent March 16, 2021 5:34pm 29.8 g/dL 33- MAIN LAB [address] [address] Red Cell Distribution Width October 14, 2020 11:38pm 16.8 % 11.5-14.5 MAIN LAB [address] [place] [address] 61253 Red Cell Distribution Width January 02, 2021 4:44pm 19.4 % 11.5-14.5 MAIN LAB [address] [address]99 Red Cell Distribution Width January 07, 2021 5:35pm 18.6 % 11.5-14.5 MAIN LAB [address] [address]45 Red Cell Distribution Width January 29, 2021 9:57pm 17.6 % 11.5-14.5 MAIN LAB [address] [address]341 Red Cell Distribution Width March 16, 2021 5:34pm 16.2 % 11.5-14.5 MAIN LAB [address] [address]282 Platelet Count October 14, 2020 11:38pm 250 1000/mm3 140-440 MAIN LAB [address] [place] [address] 74638 Platelet Count January 02, 2021 4:44pm 216 1000/mm3 140-440 MAIN LAB [address] 12779 Platelet Count January 07, 2021 5:35pm 240 1000/mm3 140-440 [facility] [address] [address] Platelet Count January 29, 2021 9:57pm 248 1000/mm3 140-440 MAIN LAB [address] 9[address] Platelet Count March 16, 2021 5:34pm 220 1000/mm3 140-440 MAIN LAB [address] 90361 Mean Platelet Volume October 14, 2020 11:38pm 10.6 fL 7.4-10.4 MAIN LAB [address] [place] [address] 56197 Mean Platelet Volume January 02, 2021 4:44pm 10.7 fL 7.4-10.4 MAIN LAB [address] 91733 Mean Platelet Volume January 07, 2021 5:35pm 11.3 fL 7.4-10.4 MAIN LAB [address] [address]43 Mean Platelet Volume January 29, 2021 9:57pm 10.6 fL 7.4-10.4 MAIN LAB [address] 33419 Mean Platelet Volume March 16, 2021 5:34pm 10.6 fL 7.4-10.4 MAIN LAB [address] 67297 Neutrophils (%) (Auto) October 14, 2020 11:38pm 60.3 % 40.0-72.0 MAIN LAB [address] [place] [address] 22283 Neutrophils (%) (Auto) January 02, 2021 4:44pm 64.3 % 40.0-72.0 MAIN LAB [address] [address]99 Neutrophils (%) (Auto) January 07, 2021 5:35pm 51.4 % 40.0-72.0 MAIN LAB [address] [address]10 Neutrophils (%) (Auto) January 29, 2021 9:57pm 57.7 % 40.0-72.0 MAIN LAB [address] 80352 Neutrophils (%) (Auto) March 16, 2021 5:34pm 62.5 % 40.0-72.0 MAIN LAB [address] 19363 Lymphocytes (%) (Auto) October 14, 2020 11:38pm 29.0 % 17-45 MAIN LAB [address] [place] [address] 96684 Lymphocytes (%) (Auto) January 02, 2021 4:44pm 26.3 % 17-45 MAIN LAB [address] [address]204 Lymphocytes (%) (Auto) January 07, 2021 5:35pm 37.7 % 17-45 MAIN LAB [address] 82883 Lymphocytes (%) (Auto) January 29, 2021 9:57pm 32.6 % 17-45 MAIN LAB [address] 19800 Lymphocytes (%) (Auto) March 16, 2021 5:34pm 26.7 % 17-45 MAIN LAB [address] [address] Monocytes (%) (Auto) October 14, 2020 11:38pm 8.2 % 3-11 MAIN LAB [address] [place] [address] 35043 Monocytes (%) (Auto) January 02, 2021 4:44pm 6.2 % 3-11 MAIN LAB [address] [address] Monocytes (%) (Auto) January 07, 2021 5:35pm 6.0 % 3-11 [facility] [address] [address] Monocytes (%) (Auto) January 29, 2021 9:57pm 6.5 % 3-11 MAIN LAB [address] [place] [address] Monocytes (%) (Auto) March 16, 2021 5:34pm 6.9 % 3-11 MAIN LAB [address] [address]759 Eosinophils (%) (Auto) October 14, 2020 11:38pm 1.1 % 0-3 MAIN LAB [address] [place] [address] 36415 Eosinophils (%) (Auto) January 02, 2021 4:44pm 2.2 % 0-3 MAIN LAB [address] 67393 Eosinophils (%) (Auto) January 07, 2021 5:35pm 3.2 % 0-3 MAIN LAB [address] 12761 Eosinophils (%) (Auto) January 29, 2021 9:57pm 1.7 % 0-3 MAIN LAB [address] 6[address] Eosinophils (%) (Auto) March 16, 2021 5:34pm 2.6 % 0-3 MAIN LAB [address] 79186 Basophils (%) (Auto) October 14, 2020 11:38pm 1.3 % 0-1 MAIN LAB [address] [place] [address] 76940 Basophils (%) (Auto) January 02, 2021 4:44pm 0.9 % 0-[address] [address] Basophils (%) (Auto) January 07, 2021 5:35pm 1.5 % 0-1 MAIN LAB [address] [address] Basophils (%) (Auto) January 29, 2021 9:57pm 1.2 % 0-1 [facility] LAB [address] 67[address] Basophils (%) (Auto) March 16, 2021 5:34pm 1.1 % 0-[address] [address] Immature Granulocyte % (Auto) October 14, 2020 11:38pm 0.1 % 0-1 MAIN LAB [address] [place] [address] 05449 Immature Granulocyte % (Auto) January 02, 2021 4:44pm 0.1 % 0-1 MAIN LAB [address] [address] Immature Granulocyte % (Auto) January 07, 2021 5:35pm 0.2 % 0-1 MAIN LAB [address] 38694 Immature Granulocyte % (Auto) January 29, 2021 9:57pm 0.3 % 0-1 MAIN LAB [address] [place] [address] Immature Granulocyte % (Auto) March 16, 2021 5:34pm 0.2 % 0-1 MAIN LAB [address] [address]697 Neutrophils # (Auto) October 14, 2020 11:38pm 4.46 1000/mm3 1.4-6.5 MAIN LAB [address] [place] [address] 93518 Neutrophils # (Auto) January 02, 2021 4:44pm 4.38 1000/mm3 1.4-6.5 MAIN LAB [address] [address] Neutrophils # (Auto) January 07, 2021 5:35pm 2.74 1000/mm3 1.4-6.5 MAIN LAB [address] [address] Neutrophils # (Auto) January 29, 2021 9:57pm 3.37 1000/mm3 1.4-6.5 MAIN LAB [address] [address] Neutrophils # (Auto) March 16, 2021 5:34pm 3.82 1000/mm3 1.4-6.5 MAIN LAB [address] [address] Lymphocytes # (Auto) October 14, 2020 11:38pm 2.15 1000/mm3 1.2-3.4 MAIN LAB [address] [place] [address] 55399 Lymphocytes # (Auto) January 02, 2021 4:44pm 1.79 1000/mm3 1.2-3.4 MAIN LAB [address] [address] Lymphocytes # (Auto) January 07, 2021 5:35pm 2.01 1000/mm3 1.2-3.4 MAIN LAB [address] [address] Lymphocytes # (Auto) January 29, 2021 9:57pm 1.91 1000/mm3 1.2-3.4 MAIN LAB [address] [address] Lymphocytes # (Auto) March 16, 2021 5:34pm 1.63 1000/mm3 1.2-3.4 MAIN LAB [address] [address] Monocytes # (Auto) October 14, 2020 11:38pm 0.61 1000/mm3 0.0-0.8 MAIN LAB [address] [place] [address] 50149 Monocytes # (Auto) January 02, 2021 4:44pm 0.42 1000/mm3 0.0-0.8 MAIN LAB [address] [address] Monocytes # (Auto) January 07, 2021 5:35pm 0.32 1000/mm3 0.0-0.8 MAIN LAB [address] [address] Monocytes # (Auto) January 29, 2021 9:57pm 0.38 1000/mm3 0.0-0.8 MAIN LAB [address] [address] Monocytes # (Auto) March 16, 2021 5:34pm 0.42 1000/mm3 0.0-0.8 MAIN LAB [address] [address]226 Eosinophils # (Auto) October 14, 2020 11:38pm 0.08 1000/mm3 0.0-0.7 MAIN LAB [address] [place] [address] 26916 Eosinophils # (Auto) January 02, 2021 4:44pm 0.15 1000/mm3 0.0-0.7 MAIN LAB [address] [address] Eosinophils # (Auto) January 07, 2021 5:35pm 0.17 1000/mm3 0.0-0.7 MAIN LAB [address] 10269 Eosinophils # (Auto) January 29, 2021 9:57pm 0.10 1000/mm3 0.0-0.7 MAIN LAB [address] [address] Eosinophils # (Auto) March 16, 2021 5:34pm 0.16 1000/mm3 0.0-0.7 MAIN LAB [address] [address] Basophils # (Auto) October 14, 2020 11:38pm 0.10 1000/mm3 0.0-0.1 MAIN LAB [address] [place] [address] 66533 Basophils # (Auto) January 02, 2021 4:44pm 0.06 1000/mm3 0.0-0.1 MAIN LAB [address] [address] Basophils # (Auto) January 07, 2021 5:35pm 0.08 1000/mm3 0.0-0.1 MAIN LAB [address] [address]291 Basophils # (Auto) January 29, 2021 9:57pm 0.07 1000/mm3 0.0-0.1 MAIN LAB [address] [address] Basophils # (Auto) March 16, 2021 5:34pm 0.07 1000/mm3 0.0-0.1 MAIN LAB [address] 79843 Absolute Immature Granulocyte (auto October 14, 2020 11:38pm 0.0 0-1 MAIN LAB [address] [place] [address] 60995 Absolute Immature Granulocyte (auto January 02, 2021 4:44pm 0.0 0-1 MAIN LAB [address] 07449 Absolute Immature Granulocyte (auto January 07, 2021 5:35pm 0.0 0-1 MAIN LAB [address] 25847 Absolute Immature Granulocyte (auto January 29, 2021 9:57pm 0.0 0-1 MAIN LAB [address] 83582 Absolute Immature Granulocyte (auto March 16, 2021 5:34pm 0.0 0-1 MAIN LAB [address] 7[address]76 Differential Method October 14, 2020 11:38pm Automated MAIN LAB [address] [place] [address] 88301 Differential Method January 02, 2021 4:44pm Automated MAIN LAB [address] [address]109 Differential Method January 07, 2021 5:35pm Automated MAIN LAB [address] 69620 Differential Method January 29, 2021 9:57pm Automated MAIN LAB [address] 88181 Differential Method March 16, 2021 5:34pm Automated MAIN LAB [address] [address] Differential Pathologist's Review October 14, 2020 11:38pm See comment No comparison data on file at [facility]. Microcytic hypochromic anemia, consistent with iron deficiency.Brice veronica reviewed by pathologist for water quality control engineer.Hair Mello MD10/15/20 MAIN LAB [address] [place] [address]999 Prothrombin Time October 14, 2020 11:38pm 10.8 SECONDS 9.6-11.2 MAIN [facility] [address] [place] [address] 22276 Prothromb Time International Ratio October 14, 2020 11:38pm 1.1 2.0-3.0 INR value valid only on patients on stabilized warfarin therapy. The recommended therapeutic range for warfarin (Coumadin) for most clinical indications is an INR of 2.0-3.0. An INR of 2.5-3.5 is recommended for patients with mechanical heart valves. MAIN LAB [address] [place] [address] 24829 Activated Partial Thromboplast Time October 14, 2020 11:38pm 26.1 SECONDS 21.6-36.0 A target of 1.5-2.5 times the mean of the normal reference range is considered therapeutic. NOTE: APTT must NOT be used to monitor LMWH therapy. Contact [facility] Pharmacy for monitoring information. MAIN LAB [address] [place] [address] 35826 Urine Color January 02, 2021 6:04pm Lauren MAIN LAB [address] [address]273 Urine Clarity January 02, 2021 6:04pm very cloudy MAIN LAB [address] [address]302 Urine pH January 02, 2021 6:04pm 6.0 MAIN LAB [address] 81839 Urine Specific [place] January 02, 2021 6:04pm 1.015 MAIN LAB [address] 29964 Urine Protein January 02, 2021 6:04pm 100 (2+) mg/dL NEGATIVE MAIN LAB [address] [address]843 Urine Glucose (UA) January 02, 2021 6:04pm Normal mg/dL NORMAL MAIN LAB [address] 18758 Urine Ketones January 02, 2021 6:04pm Negative NEGATIVE MAIN LAB [address] [address]53 Urine Nitrite January 02, 2021 6:04pm Negative Negative MAIN LAB [address] [address]90 Urine Bilirubin January 02, 2021 6:04pm Negative mg/dL NEGATIVE MAIN LAB [address] [address]321 Urine Urobilinogen January 02, 2021 6:04pm Normal mg/dL NORMAL MAIN LAB [address] [address]1548 Urine Leukocyte Esterase January 02, 2021 6:04pm Moderate (2+) WBC/uL NEGATIVE MAIN LAB [address] 31052 Urine Blood January 02, 2021 6:04pm Large (3+) JOEL/uL NEGATIVE MAIN LAB [address] 66626 Urine RBC October 14, 2020 11:45pm 10-20 /hpf MAIN LAB [address] [place] [address] 94310 Urine RBC January 02, 2021 6:04pm Tntc /hpf MAIN LAB [address] 98756 Urine RBC March 16, 2021 6:40pm Tntc /hpf MAIN LAB [address] 43942 Urine WBC October 14, 2020 11:45pm 0-2 /hpf MAIN LAB [address] [place] [address] 75594 Urine WBC January 02, 2021 6:04pm 3-5 /hpf MAIN LAB [address] [address]703 Urine WBC March 16, 2021 6:40pm See comment /hpf Microscopic field obscured by RBC. MAIN LAB [address] [address]99 Urine Squamous Epithelial Cells January 02, 2021 6:04pm 1+ /hpf MAIN LAB [address] [address]2047 Urine Bacteria October 14, 2020 11:45pm 1+ /hpf NONE SEEN MAIN LAB [address] [place] [address] 32484 Urine Bacteria January 02, 2021 6:04pm None seen /hpf NONE SEEN MAIN LAB [address] [address] Urine Bacteria March 16, 2021 6:40pm See comment /hpf NONE SEEN Microscopic field obscured by RBC. MAIN LAB [address] [address] Urine Mucus October 14, 2020 11:45pm Present MAIN LAB [address] [place] [address] 41816 Urine Culture Done October 14, 2020 11:45pm No CULTURE NOT INDICATED. MAIN LAB [address] [place] [address] 37494 Urine Culture Done January 02, 2021 6:04pm Yes URINE SPECIMEN CULTURED MAIN LAB [address] [address] Urine Culture Done March 16, 2021 6:40pm Yes URINE SPECIMEN CULTURED MAIN LAB [address] [address] Urine Test January 02, 2021 6:04pm Negative NEGATIVE MAIN LAB [address] 66520 Sodium Level October 14, 2020 11:38pm 138 mmol/L 137-145 MAIN LAB [address] [place] [address] 93743 Sodium Level January 02, 2021 4:44pm 141 mmol/L 137-145 MAIN LAB [address] [address]58 Sodium Level January 07, 2021 5:35pm 140 mmol/L 137-145 MAIN LAB [address] 6[address]32 Sodium Level January 29, 2021 9:57pm 137 mmol/L 137-145 MAIN LAB [address] 78435 Sodium Level March 16, 2021 5:34pm 137 mmol/L 137-145 MAIN LAB [address] 67167 Potassium Level October 14, 2020 11:38pm 3.8 mmol/L 3.6-5.0 MAIN LAB [address] [place] [address] 64578 Potassium Level January 02, 2021 4:44pm 3.9 mmol/L 3.6-5.0 MAIN LAB [place] [address] [facility] [address] Potassium Level January 07, 2021 5:35pm 3.7 mmol/L 3.6-5.0 MAIN LAB [facility] [address] [facility] [address] Potassium Level January 29, 2021 9:57pm 3.5 mmol/L 3.6-5.0 MAIN LAB [facility] [address] [facility] [address] Potassium Level March 16, 2021 5:34pm 4.0 mmol/L 3.6-5.0 MAIN LAB [facility] [address] [facility] [address] Chloride Level October 14, 2020 11:38pm 100 mmol/L 98-107 MAIN LAB [address] [facility] [address] Chloride Level January 02, 2021 4:44pm 104 mmol/L 98-107 MAIN LAB [facility] [address] [facility] [address] Chloride Level January 07, 2021 5:35pm 103 mmol/L 98-107 MAIN LAB [facility] [address] [facility] [address] Chloride Level January 29, 2021 9:57pm 99 mmol/L 98-107 MAIN LAB [facility] [address] [facility] [address] Chloride Level March 16, 2021 5:34pm 102 mmol/L 98-107 MAIN LAB [facility] [address] [facility] [address] Carbon Dioxide Level October 14, 2020 11:38pm 25 mmol/L 22-30 MAIN LAB [address] [facility] [address]21 Carbon Dioxide Level January 02, 2021 4:44pm 26 mmol/L 22-30 MAIN LAB [facility] [address] [facility] 19668 Carbon Dioxide Level January 07, 2021 5:35pm 27 mmol/L 22-30 MAIN LAB [facility] [address] [facility] [address] Carbon Dioxide Level January 29, 2021 9:57pm 27 mmol/L 22-30 MAIN LAB [facility] [address] [facility] [address] Carbon Dioxide Level March 16, 2021 5:34pm 28 mmol/L 22-30 MAIN LAB [facility] [address] [facility] [address] Anion Gap October 14, 2020 11:38pm 13 7-16 MAIN LAB [address] [facility] [address] Anion Gap January 02, 2021 4:44pm 11 7-16 MAIN LAB [facility] [address] [facility] [address] Anion Gap January 07, 2021 5:35pm 10 7-16 MAIN LAB [facility] [address] [facility] 15016 Anion Gap January 29, 2021 9:57pm 11 7-16 MAIN LAB [facility] [address] [facility] [address] Anion Gap March 16, 2021 5:34pm 7 7-16 MAIN LAB [address] [address] Blood Urea Nitrogen October 14, 2020 11:38pm 15 mg/dL 7-17 MAIN LAB [address] [place] [address] 54874 Blood Urea Nitrogen January 02, 2021 4:44pm 11 mg/dL 7-17 MAIN LAB [address] 78827 Blood Urea Nitrogen January 07, 2021 5:35pm 13 mg/dL 7- MAIN LAB [address] [address] Blood Urea Nitrogen January 29, 2021 9:57pm 13 mg/dL 7- MAIN LAB [address] 20559 Blood Urea Nitrogen March 16, 2021 5:34pm 10 mg/dL 7-17 MAIN LAB [address] [address] Creatinine October 14, 2020 11:38pm 0.76 mg/dL 0.52-1.04 MAIN LAB [address] [place] [address] 72581 Creatinine January 02, 2021 4:44pm 0.76 mg/dL 0.52-1.04 MAIN LAB [address] 26892 Creatinine January 07, 2021 5:35pm 0.79 mg/dL 0.52-1.04 MAIN LAB [address] 74925 Creatinine January 29, 2021 9:57pm 0.84 mg/dL 0.52-1.04 MAIN LAB [address] [address]29 Creatinine March 16, 2021 5:34pm 0.62 mg/dL 0.52-1.04 MAIN LAB [address] [address]15 Glomerular Filtration Rate Calc October 14, 2020 11:38pm > 60 mL/min >60.0 MAIN LAB [address] [place] [address] 66017 Glomerular Filtration Rate Calc January 02, 2021 4:44pm > 60 mL/min >60.0 MAIN LAB [address] [address]14 Glomerular Filtration Rate Calc January 07, 2021 5:35pm > 60 mL/min >60.0 MAIN LAB [address] 87385 Glomerular Filtration Rate Calc January 29, 2021 9:57pm > 60 mL/min >60.0 MAIN LAB [address] 74745 Glomerular Filtration Rate Calc March 16, 2021 5:34pm > 60 mL/min >60.0 MAIN LAB [address] 09263 Glucose Level October 14, 2020 11:38pm 88 mg/dL 70-100 MAIN LAB [address] [place] [address] 85156 Glucose Level January 02, 2021 4:44pm 88 mg/dL 70-100 MAIN LAB [address] 01618 Glucose Level January 07, 2021 5:35pm 105 mg/dL 70-100 MAIN LAB [address] 78063 Glucose Level January 29, 2021 9:57pm 92 mg/dL 70-100 MAIN LAB [address] 47339 Glucose Level March 16, 2021 5:34pm 90 mg/dL 70-100 MAIN LAB [address] [address]891 Calcium Level October 14, 2020 11:38pm 9.3 mg/dL 8.4-10.2 MAIN LAB [address] [place] [address] 95808 Calcium Level January 02, 2021 4:44pm 9.3 mg/dL 8.4-10.2 MAIN LAB [address] [address]87 Calcium Level January 07, 2021 5:35pm 9.6 mg/dL 8.4-10.2 MAIN LAB [address] 7[address]69 Calcium Level January 29, 2021 9:57pm 9.8 mg/dL 8.4-10.2 MAIN LAB [address] 98585 Calcium Level March 16, 2021 5:34pm 9.5 mg/dL 8.4-10.2 MAIN LAB [address] 48682 Calcium Adjusted for Albumin October 14, 2020 11:38pm 9.2 mg/dL 8.4-10.2 MA[address] [facility] [address] [place] [address] 62029 Calcium Adjusted for Albumin January 02, 2021 4:44pm 8.8 mg/dL 8.4-10.2 MAIN [address] [address] Calcium Adjusted for Albumin January 07, 2021 5:35pm 9.3 mg/dL 8.4-10.2 MAIN LAB [address] [address] Calcium Adjusted for Albumin March 16, 2021 5:34pm 9.4 mg/dL 8.4-10.2 MAIN LAB [address] [address] Iron Level October 14, 2020 11:38pm 36 ug/dL 37-170 MAIN LAB 01 [place] [id number] Total Bilirubin October 14, 2020 11:38pm 0.3 mg/dL 0.2-1.3 MA[facility] [address] [place] [address] Total Bilirubin January 02, 2021 4:44pm 0.4 mg/dL 0.2-1.3 MAIN LAB [address] [address] Total Bilirubin January 07, 2021 5:35pm 0.4 mg/dL 0.2-1.3 MAIN [facility] [address] [address] Total Bilirubin March 16, 2021 5:34pm 0.4 mg/dL 0.2-1.3 MAIN [facility] [address] [address] Aspartate Amino Transf (AST/SGOT) October 14, 2020 11:38pm 55 U/L 14-36 MAIN LAB [address] [place] [address] Aspartate Amino Transf (AST/SGOT) January 02, 2021 4:44pm 39 U/L 14-36 MAIN LAB [address] [address] Aspartate Amino Transf (AST/SGOT) January 07, 2021 5:35pm 38 U/L 14-36 MAIN LAB [address] [address] Aspartate Amino Transf (AST/SGOT) March 16, 2021 5:34pm 36 U/L 14-36 MAIN LAB [address] [address] Alanine Aminotransferase (ALT/SGPT) October 14, 2020 11:38pm 41 U/L <35 As of 09/13/19, the Reference Range for ALT/SGPT for adult patients has been updated. The Reference Range for ALT/SGPT has not been established for patients <18 years of age. MAIN LAB [address] [place] [address] Alanine Aminotransferase (ALT/SGPT) January 02, 2021 4:44pm 21 U/L <35 As of 09/13/19, the Reference Range for ALT/SGPT for adult patients has been updated. The Reference Range for ALT/SGPT has not been established for patients <18 years of age. MAIN LAB [address] [address] Alanine Aminotransferase (ALT/SGPT) January 07, 2021 5:35pm 23 U/L <35 As of 09/13/19, the Reference Range for ALT/SGPT for adult patients has been updated. The Reference Range for ALT/SGPT has not been established for patients <18 years of age. MAIN LAB [address] [address] Alanine Aminotransferase (ALT/SGPT) March 16, 2021 5:34pm 17 U/L <35 As of 09/13/19, the Reference Range for ALT/SGPT for adult patients has been updated. The Reference Range for ALT/SGPT has not been established for patients <18 years of age. MAIN LAB [address] [address] Total Protein October 14, 2020 11:38pm 7.4 g/dL 6.3-8.2 [address] [facility] [address] [place] [address] Total Protein January 02, 2021 4:44pm 7.9 g/dL 6.3-8.2 MAIN LAB [address] [address] Total Protein January 07, 2021 5:35pm 7.7 g/dL 6.3-8.2 MAIN LAB [address] [address] Total Protein March 16, 2021 5:34pm 7.2 g/dL 6.3-8.2 MA[facility] [address] [address] Albumin October 14, 2020 11:38pm 4.4 g/dL 3.5-5.0 MAIN [facility] [address] [place] [address] Albumin January 02, 2021 4:44pm 4.9 g/dL 3.5-5.0 MAIN LAB [address] [address] Albumin January 07, 2021 5:35pm 4.7 g/dL 3.5-5.0 MAIN LAB [address] [address] Albumin March 16, 2021 5:34pm 4.4 g/dL 3.5-5.0 MAIN LAB [address] [address] Alkaline Phosphatase October 14, 2020 11:38pm 55 U/L 38-126 MAIN LAB [address] [place] [address] Alkaline Phosphatase January 02, 2021 4:44pm 58 U/L 38-126 MAIN LAB [address] [address] Alkaline Phosphatase January 07, 2021 5:35pm 58 U/L 38-126 MAIN LAB [address] [address] Alkaline Phosphatase March 16, 2021 5:34pm 45 U/L 38-126 MAIN LAB [facility] [address] [facility] [address] Lipase October 14, 2020 11:38pm 43 U/L 23-300 MAIN LAB [address] [facility] [address] Ferritin October 14, 2020 11:38pm 4.43 ng/mL 10-291 The results of this assay can be falsely decreased in patients who consume Biotin. MAIN LAB [address] [place] [address] Microbiology Results Procedure Source Result Collection Date/Time Result Date/Time Result Comment Performing Site Urine Culture Ur,Clean Catch January 02, 2021 6:40pm January 04, 2021 8:36am [facility] [address] [address] Diagnostic Imaging Reports Report Dictated Date/Time Dictated By Status Radiology Report January 02, 2021 5:42pm Megan Balderas MD completed [facility] CAT SCAN REPORT PATIENT NAME: EDUARDO [...] 16, 2021 8:09pm Tiburcio Heaton MD completed [facility] CAT SCAN REPORT PATIENT NAME: EDUARDO [...] had a laporoscopy compelted on 03/05/21, at [facility] in [place]. States she is having sharp cramping stabbing [...] 2020 10:53pm Respiratory rate 16 /min 12-October 14, 2 021 10:53pm Oxygen saturation by [...] BP Systolic 116 mm[Hg] 100-140 March 16, 021 9:44pm BP Diastolic 68 mm[Hg] 50-85 March 16, 021 9:44pm Advance Directives Advance Directive Response Recorded Date/ Time Does patient have an Advanced Directive? No October 14, 2020 11:22pm Do we have a copy on file here at [facility]? No October 14, 2020 11:22pm Pt has a Living Will? No October 14, 2020 11:22pm Do we have a copy on file here at [facility]? No October 14, 2020 11:22pm Pt has a Power of Mushroom Farmer? No October 14, 2020 11:22pm Do we have a copy on file here at [facility]? No October 14, 2020 11:22pm Insurance Providers Guarantor EDUARDO PAYAN Address [address] [place] [address] Contact Info. Home Phone: Payer Policy Id Coverage Id Subscriber's Name Subscriber Id Effective Date Expiration Date [facility] [id number] EDUARDO PAYAN [id number] 000 SELF PAY Self N/A Encounters Encounter Location(s) Arrival/Admit Date Discharge/Depart Date Provider(s) Departed Emergency [facility]-Emergency Department October 14, 2020 10:48pm October 15, 2020 12:54am null Departed Emergency [facility]-Emergency Department December 29, 2020 4:23pm December 29, 2020 7:13pm null Departed Emergency [facility]-Emergency Department January 02, 2021 4:12pm January 02, 2021 7:22pm null Departed Emergency [facility]-Emergency Department January 07, 2021 4:48pm January 07, 2021 6:55pm null Departed Emergency [facility] January 21, 2021 2:24pm January 21, 2021 4:51pm null Departed Emergency [facility]-Emergency Department January 29, 2021 8:55pm January 29, 2021 11:08pm null Departed Emergency [facility]-Emergency Department March 16, 2021 3:28pm March 16, 2021 10:43pm null Functional Status Observation Response Date Recorded Living Situation Home March 16 10:42pm With Family March 16 10:42pm Mental Status Observation Response Date Recorded Comprehension [...] information is unavailable Pending Tests Test Name Date ordered Urine Culture March 16, 2021 7 :39pm Routine Culture March 16, 2021 1 0:27am Future Visits Future appointment information is unavailable Referrals to Other Providers Reason for Referral Referral Start Date Provider Provider Contact Information Provider Address Spoke with Dr. Chavez and will see for US [facility] Obstectrics and Gynecology Work Phone: [address] [facility] [phone] No Pcp Mahad Chavez MD Work Phone: [facility] [employer] [address] [facility] [phone] No Pcp No Pcp No Pcp No Pcp No Pcp No Pcp Future Procedures Future procedure information is unavailable Future Medications Future medication information is unavailable Patient Instructions Anemia Caused by Low Iron, A dult (DC) Gastritis (DC) Dental Pain (DC) Severe Abdominal Pain, Adult (DC) Nausea and Vomiting, Adult ( DC) Ovarian Cyst (DC) Ovarian Cyst (DC) Hospital Discharge Instructions Additional Instructions As we discussed, your CT demonstrates [...]
--- OUTSIDE RECORDS SUMMARY | 2022-11-20 17:48 | XMS_ITS | Continuity of Care Document ---
Author Name Unknown Address [address] [place] [address] Phone [facility] Address [address] [place] [address] Phone Care Team Providers Care Drafter Tool Design Name Role Phone PCP, of Choice Primary Care Provider MD Konstantin Donis Emergency Provider [phone] Elier Luther Emergency Provider MARIELLA Thomson Emergency Provider [phone] MD Tae Zapata Emergency Provider MARIELLA Ledezma Emergency Provider Out of Town, Provider Primary Care Provider MARIELLA May Emergency Provider [phone] MD Yolanda Dial Emergency Provider [phone] MD Praveen Harden Emergency Provider KIRA Garcia Emergency Provider MD Pierce Cowan Emergency Provider Chief Complaint and Reason for Visit Chief Complaint ORAL INFECTION RECTAL BLEEDING abdominal pain OVARIAN CYST POST OP CONCERN ABDOMINAL PAIN HEAVY VAG BLEEDING FALL/ BACK COMPLAINT PELVIC PAIN RIGHT SIDE PAIN ABDOMINAL PAIN ROSIN BARREL FILLER ISSUES abdominal complaint POST OP CONCERN Allergies, [...] Discontin [facility] 50 [facility]am 2020 9:06pm Montelukast Active [...] 2021 4:44pm 6.81 1000/mm3 4.8-10.8 MAIN LAB [address] [address] White Blood Count January 07, 2021 5:35pm 5.33 1000/mm3 4.8-10.8 MAIN LAB [address] [address] White Blood Count January 29, 2021 9:57pm 5.85 1000/mm3 4.8-10.8 MAIN LAB [address] [address] White Blood Count March 16, 2021 5:34pm 6.11 1000/mm3 4.8-10.8 MAIN LAB [address] [address] White Blood Count March 18, 2021 7:56pm 5.26 1000/mm3 4.8-10.8 MAIN LAB [address] [address] White Blood Count March 20, 2021 4:37pm 4.94 1000/mm3 4.8-10.8 MAIN LAB [address] [address] White Blood Count August 07, 2021 1:30pm 4.95 1000/mm3 4.8-10.8 MAIN LAB [address] [address] White Blood Count August 10, 2021 3:14pm 4.83 1000/mm3 4.8-10.8 MAIN LAB [address] [address] White Blood Count November 10, 2021 1:00pm 4.91 1000/mm3 4.8-10.8 MAIN LAB [address] [address] Red Blood Count January 02, 2021 4:44pm 4.67 M/mm3 4.20-5.[address] [address] Red Blood Count January 07, 2021 5:35pm 4.85 M/mm3 4.20-5.40 MAIN LAB [address] [address] Red Blood Count January 29, 2021 9:57pm 4.53 M/mm3 4.20-5.40 MAIN LAB [address] [address] Red Blood Count March 16, 2021 5:34pm 4.26 M/mm3 4.20-5.40 MAIN LAB [address] [address] Red Blood Count March 18, 2021 7:56pm 4.17 M/mm3 4.20-5.40 MAIN LAB [address] [address] Red Blood Count March 20, 2021 4:37pm 4.14 M/mm3 4.20-5.40 MAIN LAB [address] [address] Red Blood Count August 07, 2021 1:30pm 4.43 M/mm3 4.20-5.40 MAIN LAB [address] [address] Red Blood Count August 10, 2021 3:14pm 3.83 M/mm3 4.20-5.40 MAIN LAB [facility] [address] [facility] [address] Red Blood Count November 10, 2021 1:00pm 3.22 M/mm3 4.20-5.40 MAIN LAB [facility] [address] [facility] [address] Hemoglobin January 02, 2021 4:44pm 10.4 g/dL 12.0-16.0 MAIN LAB [facility] [address] [facility] [address] Hemoglobin January 07, 2021 5:35pm 10.8 g/dL 12.0-16.0 MAIN LAB [facility] [address] [facility] [address] Hemoglobin January 29, 2021 9:57pm 10.4 g/dL 12.0-16.0 MAIN LAB [facility] [address] [facility] [address] Hemoglobin March 16, 2021 5:34pm 9.9 g/dL 12.0-16.0 MAIN LAB [address] [address] Hemoglobin March 18, 2021 7:56pm 9.9 g/dL 12.0-16.0 MAIN LAB [address] [address] Hemoglobin March 20, 2021 4:37pm 9.8 g/dL 12.0-16.0 MAIN LAB [address] [address] Hemoglobin August 07, 2021 1:30pm 11.4 g/dL 12.0-16.0 MAIN LAB [facility] [address] [facility] [address] Hemoglobin August 10, 2021 3:14pm 9.9 g/dL 12.0-16.0 MAIN LAB [facility] [address] [facility] [address] Hemoglobin November 10, 2021 1:00pm 8.4 g/dL 12.0-16.0 MAIN LAB [address] [address] Hematocrit January 02, 2021 4:44pm 35.2 % 37-47 MAIN LAB [facility] [address] [facility] [address] Hematocrit January 07, 2021 5:35pm 36.3 % 37-47 MAIN LAB [facility] [address] [facility] [address] Hematocrit January 29, 2021 9:57pm 33.7 % 37-47 MAIN LAB [facility] [address] [facility] [address] Hematocrit March 16, 2021 5:34pm 33.2 % 37-47 MAIN LAB [facility] [address] [facility] [address] Hematocrit March 18, 2021 7:56pm 32.9 % 37-47 MAIN LAB [facility] [address] [facility] [address] Hematocrit March 20, 2021 4:37pm 32.6 % 37-47 MAIN LAB [facility] [address] [facility] [address] Hematocrit August 07, 2021 1:30pm 36.4 % 37-47 [facility] [address] [facility] [address] Hematocrit August 10, 2021 3:14pm 31.6 % 37-47 [facility] [address] [facility] [address] Hematocrit November 10, 2021 1:00pm 26.8 % 37-47 [facility] [address] [address] Mean Corpuscular Volume January 02, 2021 4:44pm 75.4 fL 81.0-99.0 [facility] [address] [facility] [address] Mean Corpuscular Volume January 07, 2021 5:35pm 74.8 fL 81.0-99.0 [facility] [address] [facility] [address] Mean Corpuscular Volume January 29, 2021 9:57pm 74.4 fL 81.0-99.0 [facility] [address] [facility] [address] Mean Corpuscular Volume March 16, 2021 5:34pm 77.9 fL 81.0-99.0 [facility] [address] [facility] [address] Mean Corpuscular Volume March 18, 2021 7:56pm 78.9 fL 81.0-99.0 [facility] [address] [facility] [address] Mean Corpuscular Volume March 20, 2021 4:37pm 78.7 fL 81.0-99.0 MAIN LAB [address] [address] Mean Corpuscular Volume August 07, 2021 1:30pm 82.2 fL 81.0-99.0 MAIN LAB [address] [address] Mean Corpuscular Volume August 10, 2021 3:14pm 82.5 fL 81.0-99.0 MAIN LAB [address] [address] Mean Corpuscular Volume November 10, 2021 1:00pm 83.2 fL 81.0-99.0 MAIN LAB [address] [address] Mean Corpuscular Hemoglobin January 02, 2021 4:44pm 22.3 pg 27-31 MAIN LAB [address] [address] Mean Corpuscular Hemoglobin January 07, 2021 5:35pm 22.3 pg 27-31 MAIN LAB [address] [address] Mean Corpuscular Hemoglobin January 29, 2021 9:57pm 23.0 pg 27-31 MAIN LAB [address] [address] Mean Corpuscular Hemoglobin March 16, 2021 5:34pm 23.2 pg 27-31 MAIN LAB [address] [address] Mean Corpuscular Hemoglobin March 18, 2021 7:56pm 23.7 pg 27-31 MAIN LAB [address] [address] Mean Corpuscular Hemoglobin March 20, 2021 4:37pm 23.7 pg 27-31 MAIN LAB [address] [address] Mean Corpuscular Hemoglobin August 07, 2021 1:30pm 25.7 pg 27-31 MAIN LAB [address] [address] Mean Corpuscular Hemoglobin August 10, 2021 3:14pm 25.8 pg 27-31 MAIN LAB [facility] [address] [facility] [address] Mean Corpuscular Hemoglobin November 10, 2021 1:00pm 26.1 pg 27-31 MAIN LAB [facility] [address] [facility] [address] Mean Corpuscular Hemoglobin Concent January 02, 2021 4:44pm 29.5 g/dL 33-37 MAIN LAB [facility] [address] [facility] [address] Mean Corpuscular Hemoglobin Concent January 07, 2021 5:35pm 29.8 g/dL 33-37 MAIN LAB [facility] [address] [facility] [address] Mean Corpuscular Hemoglobin Concent January 29, 2021 9:57pm 30.9 g/dL 33-37 MAIN LAB [address] [address] Mean Corpuscular Hemoglobin Concent March 16, 2021 5:34pm 29.8 g/dL 33-37 MAIN LAB [facility] [address] [facility] [address] Mean Corpuscular Hemoglobin Concent March 18, 2021 7:56pm 30.1 g/dL 33-37 MAIN LAB [address] [address] Mean Corpuscular Hemoglobin Concent March 20, 2021 4:37pm 30.1 g/dL 33-37 MAIN LAB [address] [address] Mean Corpuscular Hemoglobin Concent August 07, 2021 1:30pm 31.3 g/dL 33-37 MAIN LAB [facility] [address] [facility] [address] Mean Corpuscular Hemoglobin Concent August 10, 2021 3:14pm 31.3 g/dL 33-37 MAIN LAB [address] [address] Mean Corpuscular Hemoglobin Concent November 10, 2021 1:00pm 31.3 g/dL 33-37 MAIN LAB [facility] [address] [facility] [address] Red Cell Distribution Width January 02, 2021 4:44pm 19.4 % 11.5-14.5 MAIN LAB [facility] [address] [facility] [address] Red Cell Distribution Width January 07, 2021 5:35pm 18.6 % 11.5-14.5 [facility] [address] [facility] [address] Red Cell Distribution Width January 29, 2021 9:57pm 17.6 % 11.5-14.5 MAIN LAB [address] [address] Red Cell Distribution Width March 16, 2021 5:34pm 16.2 % 11.5-14.5 MAIN LAB [address] [address] Red Cell Distribution Width March 18, 2021 7:56pm 16.4 % 11.5-14.5 MAIN LAB [address] [address] Red Cell Distribution Width March 20, 2021 4:37pm 16.5 % 11.5-14.5 [facility] [address] [address] Red Cell Distribution Width August 07, 2021 1:30pm 14.0 % 11.5-14.5 [facility] [address] [address] Red Cell Distribution Width August 10, 2021 3:14pm 14.0 % 11.5-14.5 [facility] [address] [address] Red Cell Distribution Width November 10, 2021 1:00pm 14.4 % 11.5-14.5 [facility] [address] [address] Platelet Count January 02, 2021 4:44pm 216 1000/mm3 140-440 MAIN LAB [address] [address] Platelet Count January 07, 2021 5:35pm 240 1000/mm3 140-440 [facility] [address] [address] Platelet Count January 29, 2021 9:57pm 248 1000/mm3 140-440 MAIN LAB [address] [address] Platelet Count March 16, 2021 5:34pm 220 1000/mm3 140-440 MAIN LAB [address] [place] [address] Platelet Count March 18, 2021 7:56pm 212 1000/mm3 140-440 MAIN LAB [facility] [address] [facility] [address] Platelet Count March 20, 2021 4:37pm 177 1000/mm3 140-440 MAIN LAB [facility] [address] [facility] [address] Platelet Count August 07, 2021 1:30pm 207 1000/mm3 140-440 MAIN LAB [facility] [address] [facility] [address] Platelet Count August 10, 2021 3:14pm 189 1000/mm3 140-440 MAIN LAB [facility] [address] [facility] [address] Platelet Count November 10, 2021 1:00pm 282 1000/mm3 140-440 MAIN LAB [address] [address] Mean Platelet Volume January 02, 2021 4:44pm 10.7 fL 7.4-10.4 MAIN LAB [address] [address] Mean Platelet Volume January 07, 2021 5:35pm 11.3 fL 7.4-10.4 MAIN LAB [address] [address] Mean Platelet Volume January 29, 2021 9:57pm 10.6 fL 7.4-10.4 MAIN LAB [address] [address] Mean Platelet Volume March 16, 2021 5:34pm 10.6 fL 7.4-10.4 MAIN LAB [facility] [address] [facility] [address] Mean Platelet Volume March 18, 2021 7:56pm 10.4 fL 7.4-10.4 MAIN LAB [address] [address] Mean Platelet Volume March 20, 2021 4:37pm 9.9 fL 7.4-10.4 MAIN LAB [address] [address] Mean Platelet Volume August 07, 2021 1:30pm 11.0 fL 7.4-10.4 MAIN LAB [address] [address] Mean Platelet Volume August 10, 2021 3:14pm 10.7 fL 7.4-10.[address] [address] Mean Platelet Volume November 10, 2021 1:00pm 10.5 fL 7.4-10.[address] [address] Neutrophils (%) (Auto) January 02, 2021 4:44pm 64.3 % 40.0-72.[address] [address] Neutrophils (%) (Auto) January 07, 2021 5:35pm 51.4 % 40.0-72.[address] [address] Neutrophils (%) (Auto) January 29, 2021 9:57pm 57.7 % 40.0-72.[address] [address] Neutrophils (%) (Auto) March 16, 2021 5:34pm 62.5 % 40.0-72.[address] [address] Neutrophils (%) (Auto) March 18, 2021 7:56pm 57.9 % 40.0-72.[address] [address] Neutrophils (%) (Auto) March 20, 2021 4:37pm 64.0 % 40.0-72.[address] [address] Neutrophils (%) (Auto) August 07, 2021 1:30pm 67.7 % 40.0-72.[address] [address] Neutrophils (%) (Auto) August 10, 2021 3:14pm 58.2 % 40.0-72.[address] [address] Neutrophils (%) (Auto) November 10, 2021 1:00pm 67.8 % 40.0-72.[address] [address] Lymphocytes (%) (Auto) January 02, 2021 4:44pm 26.3 % 17-45 MAIN LAB [address] [address] Lymphocytes (%) (Auto) January 07, 2021 5:35pm 37.7 % 17-45 MAIN LAB [address] [address] Lymphocytes (%) (Auto) January 29, 2021 9:57pm 32.6 % 17-45 [facility] [address] [address] Lymphocytes (%) (Auto) March 16, 2021 5:34pm 26.7 % 17-[address] [address] Lymphocytes (%) (Auto) March 18, 2021 7:56pm 30.4 % 17-[address] [address] Lymphocytes (%) (Auto) March 20, 2021 4:37pm 26.1 % 17-45 [facility] [address] [address] Lymphocytes (%) (Auto) August 07, 2021 1:30pm 24.2 % 17-[address] [address] Lymphocytes (%) (Auto) August 10, 2021 3:14pm 32.3 % 17-[address] [address] Lymphocytes (%) (Auto) November 10, 2021 1:00pm 23.4 % 17-45 [facility] [address] [address] Monocytes (%) (Auto) January 02, 2021 4:44pm 6.2 % 3-11 [facility] [address] [address] Monocytes (%) (Auto) January 07, 2021 5:35pm 6.0 % 3-11 [facility] [address] [address] Monocytes (%) (Auto) January 29, 2021 9:57pm 6.5 % 3-11 [facility] [address] [address] Monocytes (%) (Auto) March 16, 2021 5:34pm 6.9 % 3-11 [facility] [address] [address] Monocytes (%) (Auto) March 18, 2021 7:56pm 7.2 % 3-11 [facility] [address] [address] Monocytes (%) (Auto) March 20, 2021 4:37pm 5.9 % 3-11 MAIN LAB [address] [address] Monocytes (%) (Auto) August 07, 2021 1:30pm 5.9 % 3-[address] [address] Monocytes (%) (Auto) August 10, 2021 3:14pm 6.6 % 3-[address] [address] Monocytes (%) (Auto) November 10, 2021 1:00pm 4.7 % 3-11 [facility] [address] [address] Eosinophils (%) (Auto) January 02, 2021 4:44pm 2.2 % 0-[address] [address] Eosinophils (%) (Auto) January 07, 2021 5:35pm 3.2 % 0-[address] [address] Eosinophils (%) (Auto) January 29, 2021 9:57pm 1.7 % 0-3 [facility] [address] [address] Eosinophils (%) (Auto) March 16, 2021 5:34pm 2.6 % 0-3 [facility] [address] [address] Eosinophils (%) (Auto) March 18, 2021 7:56pm 3.2 % 0-3 [facility] [address] [address] Eosinophils (%) (Auto) March 20, 2021 4:37pm 2.8 % 0-[address] [address] Eosinophils (%) (Auto) August 07, 2021 1:30pm 1.2 % 0-[address] [address] Eosinophils (%) (Auto) August 10, 2021 3:14pm 2.1 % 0-[address] [address] Eosinophils (%) (Auto) November 10, 2021 1:00pm 3.1 % 0-[address] [address] Basophils (%) (Auto) January 02, 2021 4:44pm 0.9 % 0-[address] [address] Basophils (%) (Auto) January 07, 2021 5:35pm 1.5 % 0-[address] [address] Basophils (%) (Auto) January 29, 2021 9:57pm 1.2 % 0-[address] [address] Basophils (%) (Auto) March 16, 2021 5:34pm 1.1 % 0-[address] [address] Basophils (%) (Auto) March 18, 2021 7:56pm 1.1 % 0-[address] [address] Basophils (%) (Auto) March 20, 2021 4:37pm 1.0 % 0-[address] [address] Basophils (%) (Auto) August 07, 2021 1:30pm 0.8 % 0-[address] [address] Basophils (%) (Auto) August 10, 2021 3:14pm 0.6 % 0-[address] [address] Basophils (%) (Auto) November 10, 2021 1:00pm 0.6 % 0-[address] [address] Immature Granulocyte % (Auto) January 02, 2021 4:44pm 0.1 % 0-[address] [address] Immature Granulocyte % (Auto) January 07, 2021 5:35pm 0.2 % 0-[address] [address] Immature Granulocyte % (Auto) January 29, 2021 9:57pm 0.3 % 0-[address] [address] Immature Granulocyte % (Auto) March 16, 2021 5:34pm 0.2 % 0-[address] [address] Immature Granulocyte % (Auto) March 18, 2021 7:56pm 0.2 % 0-[address] [address] Immature Granulocyte % (Auto) March 20, 2021 4:37pm 0.2 % 0-[address] [address] Immature Granulocyte % (Auto) August 07, 2021 1:30pm 0.2 % 0-[address] [address] Immature Granulocyte % (Auto) August 10, 2021 3:14pm 0.2 % 0-[address] [address] Immature Granulocyte % (Auto) November 10, 2021 1:00pm 0.4 % 0-[address] [address] Neutrophils # (Auto) January 02, 2021 4:44pm 4.38 1000/mm3 1.4-6.[address] [address] Neutrophils # (Auto) January 07, 2021 5:35pm 2.74 1000/mm3 1.4-6.[address] [address] Neutrophils # (Auto) January 29, 2021 9:57pm 3.37 1000/mm3 1.4-6.5 MAIN LAB [address] [address] Neutrophils # (Auto) March 16, 2021 5:34pm 3.82 1000/mm3 1.4-6.5 MAIN LAB [address] [address] Neutrophils # (Auto) March 18, 2021 7:56pm 3.04 1000/mm3 1.4-6.5 MAIN LAB [address] [address] Neutrophils # (Auto) March 20, 2021 4:37pm 3.16 1000/mm3 1.4-6.5 MAIN LAB [address] [address] Neutrophils # (Auto) August 07, 2021 1:30pm 3.35 1000/mm3 1.4-6.5 MAIN LAB [address] [address] Neutrophils # (Auto) August 10, 2021 3:14pm 2.81 1000/mm3 1.4-6.5 MAIN LAB [address] [address] Neutrophils # (Auto) November 10, 2021 1:00pm 3.33 1000/mm3 1.4-6.5 [facility] [address] [address] Lymphocytes # (Auto) January 02, 2021 4:44pm 1.79 1000/mm3 1.2-3.4 MAIN LAB [address] [address] Lymphocytes # (Auto) January 07, 2021 5:35pm 2.01 1000/mm3 1.2-3.4 MAIN LAB [address] [address] Lymphocytes # (Auto) January 29, 2021 9:57pm 1.91 1000/mm3 1.2-3.4 MAIN LAB [address] [address] Lymphocytes # (Auto) March 16, 2021 5:34pm 1.63 1000/mm3 1.2-3.4 MAIN LAB [address] [address] Lymphocytes # (Auto) March 18, 2021 7:56pm 1.60 1000/mm3 1.2-3.4 MAIN LAB [address] [address] Lymphocytes # (Auto) March 20, 2021 4:37pm 1.29 1000/mm3 1.2-3.4 MAIN LAB [address] [address] Lymphocytes # (Auto) August 07, 2021 1:30pm 1.20 1000/mm3 1.2-3.4 MAIN LAB [address] [address] Lymphocytes # (Auto) August 10, 2021 3:14pm 1.56 1000/mm3 1.2-3.4 MAIN LAB [address] [address] Lymphocytes # (Auto) November 10, 2021 1:00pm 1.15 1000/mm3 1.2-3.4 MAIN LAB [address] [address] Monocytes # (Auto) January 02, 2021 4:44pm 0.42 1000/mm3 0.0-0.8 MAIN LAB [address] [address] Monocytes # (Auto) January 07, 2021 5:35pm 0.32 1000/mm3 0.0-0.8 [facility] [address] [address] Monocytes # (Auto) January 29, 2021 9:57pm 0.38 1000/mm3 0.0-0.8 MAIN LAB [address] [address] Monocytes # (Auto) March 16, 2021 5:34pm 0.42 1000/mm3 0.0-0.8 MAIN LAB [address] [address] Monocytes # (Auto) March 18, 2021 7:56pm 0.38 1000/mm3 0.0-0.8 MAIN LAB [address] [address] Monocytes # (Auto) March 20, 2021 4:37pm 0.29 1000/mm3 0.0-0.8 MAIN LAB [address] [address] Monocytes # (Auto) August 07, 2021 1:30pm 0.29 1000/mm3 0.0-0.8 MAIN LAB [address] [address] Monocytes # (Auto) August 10, 2021 3:14pm 0.32 1000/mm3 0.0-0.8 MAIN LAB [address] [address] Monocytes # (Auto) November 10, 2021 1:00pm 0.23 1000/mm3 0.0-0.8 MAIN LAB [address] [address] Eosinophils # (Auto) January 02, 2021 4:44pm 0.15 1000/mm3 0.0-0.7 MAIN LAB [address] [address] Eosinophils # (Auto) January 07, 2021 5:35pm 0.17 1000/mm3 0.0-0.7 MAIN LAB [address] [address] Eosinophils # (Auto) January 29, 2021 9:57pm 0.10 1000/mm3 0.0-0.7 MAIN LAB [address] [address] Eosinophils # (Auto) March 16, 2021 5:34pm 0.16 1000/mm3 0.0-0.7 MAIN LAB [address] [address] Eosinophils # (Auto) March 18, 2021 7:56pm 0.17 1000/mm3 0.0-0.7 MAIN LAB [address] [address] Eosinophils # (Auto) March 20, 2021 4:37pm 0.14 1000/mm3 0.0-0.7 MAIN LAB [address] [address] Eosinophils # (Auto) August 07, 2021 1:30pm 0.06 1000/mm3 0.0-0.7 MAIN LAB [address] [address] Eosinophils # (Auto) August 10, 2021 3:14pm 0.10 1000/mm3 0.0-0.[address] [address] Eosinophils # (Auto) November 10, 2021 1:00pm 0.15 1000/mm3 0.0-0.[address] [address] Basophils # (Auto) January 02, 2021 4:44pm 0.06 1000/mm3 0.0-0.[address] [address] Basophils # (Auto) January 07, 2021 5:35pm 0.08 1000/mm3 0.0-0.[address] [address] Basophils # (Auto) January 29, 2021 9:57pm 0.07 1000/mm3 0.0-0.[address] [address] Basophils # (Auto) March 16, 2021 5:34pm 0.07 1000/mm3 0.0-0.[address] [address] Basophils # (Auto) March 18, 2021 7:56pm 0.06 1000/mm3 0.0-0.[address] [address] Basophils # (Auto) March 20, 2021 4:37pm 0.05 1000/mm3 0.0-0.[address] [address] Basophils # (Auto) August 07, 2021 1:30pm 0.04 1000/mm3 0.0-0.[address] [address] Basophils # (Auto) August 10, 2021 3:14pm 0.03 1000/mm3 0.0-0.[address] [address] Basophils # (Auto) November 10, 2021 1:00pm 0.03 1000/mm3 0.0-0.[address] [address] Absolute Immature Granulocyte (auto January 02, 2021 4:44pm 0.0 0-1 MAIN LAB [address] [address] Absolute Immature Granulocyte (auto January 07, 2021 5:35pm 0.0 0-1 MAIN LAB [address] [address] Absolute Immature Granulocyte (auto January 29, 2021 9:57pm 0.0 0-1 MAIN LAB [address] [address] Absolute Immature Granulocyte (auto March 16, 2021 5:34pm 0.0 0-1 MAIN LAB [address] [address] Absolute Immature Granulocyte (auto March 18, 2021 7:56pm 0.0 0-1 MAIN LAB [address] [address] Absolute Immature Granulocyte (auto March 20, 2021 4:37pm 0.0 0-1 MAIN LAB [address] [address] Absolute Immature Granulocyte (auto August 07, 2021 1:30pm 0.0 0-1 MAIN LAB [address] [address] Absolute Immature Granulocyte (auto August 10, 2021 3:14pm 0.0 0-1 MAIN LAB [address] [address] Absolute Immature Granulocyte (auto November 10, 2021 1:00pm 0.0 0-1 MAIN LAB [address] [address] Differential Method January 02, 2021 4:44pm Automated MAIN LAB [address] [address] Differential Method January 07, 2021 5:35pm Automated MAIN LAB [address] [address] Differential Method January 29, 2021 9:57pm Automated MAIN LAB [address] [address] Differential Method March 16, 2021 5:34pm Automated MAIN LAB [address] [address] Differential Method March 18, 2021 7:56pm Automated MAIN LAB [address] [address] Differential Method March 20, 2021 4:37pm Automated MAIN LAB [address] [address] Differential Method August 07, 2021 1:30pm Automated MAIN LAB [address] [address] Differential Method August 10, 2021 3:14pm Automated MAIN LAB [address] [address] Differential Method November 10, 2021 1:00pm Automated MAIN LAB [address] [address] Urine Color January 02, 2021 6:04pm Lauren MAIN LAB [address] [address] Urine Clarity January 02, 2021 6:04pm very cloudy MAIN LAB [address] [address] Urine pH January 02, 2021 6:04pm 6.0 5.0-8.0 MAIN LAB [address] [address] Urine Specific [place] January 02, 2021 6:04pm 1.015 1.001-1.03 5 MAIN LAB [address] [address] Urine Protein January 02, 2021 6:04pm 100 (2+) mg/dL NEGATIVE MAIN LAB [address] [address] Urine Glucose (UA) January 02, 2021 6:04pm Normal mg/dL NORMAL MAIN LAB [address] [address] Urine Ketones January 02, 2021 6:04pm Negative NEGATIVE MAIN LAB [address] [address] Urine Nitrite January 02, 2021 6:04pm Negative Negative MAIN LAB [address] [address] Urine Bilirubin January 02, 2021 6:04pm Negative mg/dL NEGATIVE MAIN LAB [address] [address] Urine Urobilinogen January 02, 2021 6:04pm Normal mg/dL NORMAL MAIN LAB [address] [address] Urine Leukocyte Esterase January 02, 2021 6:04pm Moderate (2+) WBC/uL NEGATIVE MAIN LAB [address] [address] Urine Blood January 02, 2021 6:04pm Large (3+) JOEL/uL NEGATIVE MAIN LAB [address] [address] Urine RBC January 02, 2021 6:04pm Tntc /hpf 0-2 MAIN LAB [address] [address] Urine RBC March 16, 2021 6:40pm Tntc /hpf 0-2 MAIN LAB [address] [address] Urine RBC June 27, 2021 4:10pm 0-2 /hpf 0-2 MAIN LAB [address] [address] Urine WBC January 02, 2021 6:04pm 3-5 /hpf 0-5 MAIN LAB [address] [address] Urine WBC March 16, 2021 6:40pm See comment /hpf 0-5 Microscopic field obscured by RBC. MAIN LAB [address] [address] Urine WBC June 27, 2021 4:10pm None seen /hpf 0-5 MAIN LAB [address] [address] Urine Squamous Epithelial Cells January 02, 2021 6:04pm 1+ /hpf MAIN LAB [address] [address] Urine Squamous Epithelial Cells June 27, 2021 4:10pm 2+ /hpf MAIN LAB [address] [address] Urine Bacteria January 02, 2021 6:04pm None seen /hpf NONE SEEN MAIN LAB [address] [address] Urine Bacteria March 16, 2021 6:40pm See comment /hpf NONE SEEN Microscopic field obscured by RBC. MAIN LAB [address] [address] Urine Bacteria June 27, 2021 4:10pm 1+ /hpf NONE SEEN MAIN LAB [place] 361368 Urine Mucus June 27, 2021 4:10pm Present MAIN LAB [facility] [address] [facility] [address] Urine Culture Done January 02, 2021 6:04pm Yes URINE SPECIMEN CULTURED MAIN LAB [facility] [address] [facility] [address] Urine Culture Done March 16, 2021 6:40pm Yes URINE SPECIMEN CULTURED MAIN LAB [address] [address] Urine Culture Done June 27, 2021 4:10pm No CULTURE NOT INDICATED. MAIN LAB [address] [address] Urine Test January 02, 2021 6:04pm Negative NEGATIVE MAIN LAB [facility] [address] [facility] [address] Sodium Level January 02, 2021 4:44pm 141 mmol/L 137-145 MAIN LAB [address] [address] Sodium Level January 07, 2021 5:35pm 140 mmol/L 137-145 MAIN LAB [facility] [address] [facility] [address] Sodium Level January 29, 2021 9:57pm 137 mmol/L 137-145 MAIN LAB [facility] [address] [facility] [address] Sodium Level March 16, 2021 5:34pm 137 mmol/L 137-145 MAIN LAB [facility] [address] [facility] [address] Sodium Level March 18, 2021 7:56pm 141 mmol/L 137-145 MAIN LAB [facility] [address] [facility] [address] Sodium Level March 20, 2021 5:04pm 140 mmol/L 137-145 MAIN LAB [facility] [address] [facility] [address] Sodium Level August 07, 2021 1:30pm 141 mmol/L 137-145 MAIN LAB [facility] [address] [facility] [address] Sodium Level August 10, 2021 3:14pm 140 mmol/L 137-145 MAIN LAB [facility] [address] [facility] [address] Sodium Level November 10, 2021 1:00pm 139 mmol/L 137-145 MAIN LAB [facility] [address] [facility] [address] Potassium Level January 02, 2021 4:44pm 3.9 mmol/L 3.6-5.0 MAIN LAB [facility] [address] [facility] [address] Potassium Level January 07, 2021 5:35pm 3.7 mmol/L 3.6-5.0 MAIN LAB [facility] [address] [facility] [address] Potassium Level January 29, 2021 9:57pm 3.5 mmol/L 3.6-5.0 MAIN LAB [facility] [address] [facility] [address] Potassium Level March 16, 2021 5:34pm 4.0 mmol/L 3.6-5.0 MAIN LAB [facility] [address] [facility] [address] Potassium Level March 18, 2021 7:56pm 3.4 mmol/L 3.6-5.0 MAIN LAB [address] [address] Potassium Level March 20, 2021 5:04pm 3.8 mmol/L 3.6-5.0 MAIN LAB [address] [address] Potassium Level August 07, 2021 1:30pm 4.3 mmol/L 3.6-5.0 MAIN LAB [facility] [address] [facility] [address] Potassium Level August 10, 2021 3:14pm 4.0 mmol/L 3.6-5.0 MAIN LAB [facility] [address] [facility] [address] Potassium Level November 10, 2021 1:00pm 4.2 mmol/L 3.6-5.0 MAIN LAB [facility] [address] [facility] [address] Chloride Level January 02, 2021 4:44pm 104 mmol/L 98-107 MAIN LAB [facility] [address] [facility] [address] Chloride Level January 07, 2021 5:35pm 103 mmol/L 98-107 MAIN LAB [facility] [address] [facility] [address] Chloride Level January 29, 2021 9:57pm 99 mmol/L 98-107 MAIN LAB [facility] [address] [facility] [address] Chloride Level March 16, 2021 5:34pm 102 mmol/L 98-107 MAIN LAB [facility] [address] [facility] [address] Chloride Level March 18, 2021 7:56pm 102 mmol/L 98-107 MAIN LAB [facility] [address] [facility] [address] Chloride Level March 20, 2021 5:04pm 103 mmol/L 98-107 MAIN LAB [facility] [address] [facility] [address] Chloride Level August 07, 2021 1:30pm 105 mmol/L 98-107 MAIN LAB [address] [address] Chloride Level August 10, 2021 3:14pm 103 mmol/L 98-107 MAIN LAB [address] [address] Chloride Level November 10, 2021 1:00pm 104 mmol/L 98-107 MAIN LAB [address] [address] Carbon Dioxide Level January 02, 2021 4:44pm 26 mmol/L 22-30 MAIN LAB [address] [address] Carbon Dioxide Level January 07, 2021 5:35pm 27 mmol/L 22-30 MAIN LAB [address] [address] Carbon Dioxide Level January 29, 2021 9:57pm 27 mmol/L 22-30 MAIN LAB [facility] [address] [facility] [address] Carbon Dioxide Level March 16, 2021 5:34pm 28 mmol/L 22-30 MAIN LAB [address] [address] Carbon Dioxide Level March 18, 2021 7:56pm 29 mmol/L 22-30 MAIN LAB [address] [address] Carbon Dioxide Level March 20, 2021 5:04pm 27 mmol/L 22-30 MAIN LAB [address] [address] Carbon Dioxide Level August 07, 2021 1:30pm 24 mmol/L 22-30 MAIN LAB [address] [place] [address] Carbon Dioxide Level August 10, 2021 3:14pm 26 mmol/L MAIN LAB [facility] [address] [facility] [address] Carbon Dioxide Level November 10, 2021 1:00pm 24 mmol/L MAIN LAB [facility] [address] [facility] [address] Anion Gap January 02, 2021 4:44pm 11 -16 MAIN LAB [facility] [address] [facility] [address] Anion Gap January 07, 2021 5:35pm 10 -16 MAIN LAB [address] [address] Anion Gap January 29, 2021 9:57pm 11 7-16 MAIN LAB [address] [address] Anion Gap March 16, 2021 5:34pm 7 -16 MAIN LAB [address] [address] Anion Gap March 18, 2021 7:56pm 10 7-16 MAIN LAB [address] [address] Anion Gap March 20, 2021 5:04pm 10 7-16 MAIN LAB [address] [address] Anion Gap August 07, 2021 1:30pm 12 7-16 MAIN LAB [address] [address] Anion Gap August 10, 2021 3:14pm 11 -16 MAIN LAB [facility] [address] [facility] [address] Anion Gap November 10, 2021 1:00pm 11 -16 MAIN LAB [facility] [address] [facility] [address] Blood Urea Nitrogen January 02, 2021 4:44pm 11 mg/dL 11-28 MAIN LAB [facility] [address] [facility] [address] Blood Urea Nitrogen January 07, 2021 5:35pm 13 mg/dL 11-28 MAIN LAB [facility] [address] [facility] [address] Blood Urea Nitrogen January 29, 2021 9:57pm 13 mg/dL 7-17 MAIN LAB [facility] [address] [facility] [address] Blood Urea Nitrogen March 16, 2021 5:34pm 10 mg/dL 7-17 MAIN LAB [facility] [address] [facility] [address] Blood Urea Nitrogen March 18, 2021 7:56pm 10 mg/dL 7- MAIN LAB [address] [address] Blood Urea Nitrogen March 20, 2021 5:04pm 5 mg/dL 7- MAIN LAB [address] [address] Blood Urea Nitrogen August 07, 2021 1:30pm 14 mg/dL 7- MAIN LAB [address] [address] Blood Urea Nitrogen August 10, 2021 3:14pm 7 mg/dL 7- MAIN LAB [address] [address] Blood Urea Nitrogen November 10, 2021 1:00pm 7 mg/dL 7- MAIN LAB [address] [address] Creatinine January 02, 2021 4:44pm 0.76 mg/dL 0.52-1.04 MAIN LAB [address] [address] Creatinine January 07, 2021 5:35pm 0.79 mg/dL 0.52-1.04 MAIN LAB [address] [address] Creatinine January 29, 2021 9:57pm 0.84 mg/dL 0.52-1.04 MAIN LAB [address] [address] Creatinine March 16, 2021 5:34pm 0.62 mg/dL 0.52-1.04 MAIN LAB [address] [address] Creatinine March 18, 2021 7:56pm 0.66 mg/dL 0.52-1.04 MAIN LAB [address] [address] Creatinine March 20, 2021 5:04pm 0.59 mg/dL 0.52-1.04 MAIN LAB [address] [address] Creatinine August 07, 2021 1:30pm 0.65 mg/dL 0.52-1.[address] [address] Creatinine August 10, 2021 3:14pm 0.60 mg/dL 0.52-1.[address] [address] Creatinine November 10, 2021 1:00pm 0.76 mg/dL 0.52-1.[address] [address] Glomerular Filtration Rate Calc January 02, 2021 4:44pm > 60 mL/min >60.[address] [address] Glomerular Filtration Rate Calc January 07, 2021 5:35pm > 60 mL/min >60.[address] [address] Glomerular Filtration Rate Calc January 29, 2021 9:57pm > 60 mL/min >60.[address] [address] Glomerular Filtration Rate Calc March 16, 2021 5:34pm > 60 mL/min >60.[address] [address] Glomerular Filtration Rate Calc March 18, 2021 7:56pm > 60 mL/min >60.[address] [address] Glomerular Filtration Rate Calc March 20, 2021 5:04pm > 60 mL/min >60.[address] [address] Glomerular Filtration Rate Calc August 07, 2021 1:30pm > 60 mL/min >60.[address] [address] Glomerular Filtration Rate Calc August 10, 2021 3:14pm > 60 mL/min >60.[address] [address] Glomerular Filtration Rate Calc November 10, 2021 1:00pm > 60 mL/min >60.[address] [address] Glucose Level January 02, 2021 4:44pm 88 mg/dL 70-100 MAIN LAB [facility] [address] [facility] [address] Glucose Level January 07, 2021 5:35pm 105 mg/dL 70-100 MAIN LAB [facility] [address] [facility] [address] Glucose Level January 29, 2021 9:57pm 92 mg/dL 70-100 MAIN LAB [facility] [address] [facility] [address] Glucose Level March 16, 2021 5:34pm 90 mg/dL 70-100 MAIN LAB [facility] [address] [facility] [address] Glucose Level March 18, 2021 7:56pm 84 mg/dL 70-100 MAIN LAB [address] [address] Glucose Level March 20, 2021 5:04pm 91 mg/dL 70-100 MAIN LAB [address] [address] Glucose Level August 07, 2021 1:30pm 100 mg/dL 70-100 MAIN LAB [address] [address] Glucose Level August 10, 2021 3:14pm 85 mg/dL 70-100 MAIN LAB [address] [address] Glucose Level November 10, 2021 1:00pm 95 mg/dL 70-100 MAIN LAB [address] [address] Calcium Level January 02, 2021 4:44pm 9.3 mg/dL 8.4-10.2 MAIN LAB [facility] [address] [facility] [address] Calcium Level January 07, 2021 5:35pm 9.6 mg/dL 8.4-10.2 MAIN LAB [facility] [address] [facility] [address] Calcium Level January 29, 2021 9:57pm 9.8 mg/dL 8.4-10.2 MAIN LAB [facility] [address] [facility] [address] Calcium Level March 16, 2021 5:34pm 9.5 mg/dL 8.4-10.2 MAIN LAB [facility] [address] [facility] [address] Calcium Level March 18, 2021 7:56pm 9.3 mg/dL 8.4-10.2 MAIN LAB [facility] [address] [facility] [address] Calcium Level March 20, 2021 5:04pm 9.4 mg/dL 8.4-10.2 MAIN LAB [address] [address] Calcium Level August 07, 2021 1:30pm 9.8 mg/dL 8.4-10.2 MAIN LAB [address] [address] Calcium Level August 10, 2021 3:14pm 9.2 mg/dL 8.4-10.2 MAIN LAB [address] [address] Calcium Level November 10, 2021 1:00pm 9.6 mg/dL 8.4-10.2 MAIN LAB [address] [address] Calcium Adjusted for Albumin January 02, 2021 4:44pm 8.8 mg/dL 8.4-10.2 MAIN LAB [address] [address] Calcium Adjusted for Albumin January 07, 2021 5:35pm 9.3 mg/dL 8.4-10.2 MAIN LAB [address] [address] Calcium Adjusted for Albumin March 16, 2021 5:34pm 9.4 mg/dL 8.4-10.2 MAIN LAB [address] [address] Calcium Adjusted for Albumin March 18, 2021 7:56pm 9.1 mg/dL 8.4-10.2 MAIN LAB [address] [address] Calcium Adjusted for Albumin August 07, 2021 1:30pm 9.2 mg/dL 8.4-10.2 MAIN LAB [address] [address] Total Bilirubin January 02, 2021 4:44pm 0.4 mg/dL 0.2-1.3 MAIN LAB [address] [address] Total Bilirubin January 07, 2021 5:35pm 0.4 mg/dL 0.2-1.3 MAIN LAB [address] [address] Total Bilirubin March 16, 2021 5:34pm 0.4 mg/dL 0.2-1.3 MAIN LAB [address] [address] Total Bilirubin March 18, 2021 7:56pm 0.4 mg/dL 0.2-1.3 MAIN LAB [address] [address] Total Bilirubin August 07, 2021 1:30pm 0.6 mg/dL 0.2-1.3 MAIN LAB [address] [address] Aspartate Amino Transf (AST/SGOT) January 02, 2021 4:44pm 39 U/L 14-36 MAIN LAB [address] [address] Aspartate Amino Transf (AST/SGOT) January 07, 2021 5:35pm 38 U/L 14-36 MAIN LAB [address] [address] Aspartate Amino Transf (AST/SGOT) March 16, 2021 5:34pm 36 U/L 14-36 [facility] [address] [address] Aspartate Amino Transf (AST/SGOT) March 18, 2021 7:56pm 37 U/L 14-36 [facility] [address] [address] Aspartate Amino Transf (AST/SGOT) August 07, 2021 1:30pm 48 U/L 14-36 MAIN LAB [address] [address] Alanine Aminotransferase (ALT/SGPT) January 02, 2021 4:44pm 21 U/L <35 As of 09/13/19, the Reference Range for ALT/SGPT for adult patients has been updated. The Reference Range for ALT/SGPT has not been established for patients <18 years of age. MAIN LAB [address] [address] Alanine Aminotransferase (ALT/SGPT) January 07, 2021 5:35pm 23 U/L <35 As of 09/13/19, the Reference Range for ALT/SGPT for adult patients has been updated. The Reference Range for ALT/SGPT has not been established for patients <18 years of age. MAIN LAB [address] [address] Alanine Aminotransferase (ALT/SGPT) March 16, 2021 5:34pm 17 U/L <35 As of 09/13/19, the Reference Range for ALT/SGPT for adult patients has been updated. The Reference Range for ALT/SGPT has not been established for patients <18 years of age. MAIN LAB [address] [address] Alanine Aminotransferase (ALT/SGPT) March 18, 2021 7:56pm 19 U/L <35 As of 09/13/19, the Reference Range for ALT/SGPT for adult patients has been updated. The Reference Range for ALT/SGPT has not been established for patients <18 years of age. MAIN LAB [address] [address] Alanine Aminotransferase (ALT/SGPT) August 07, 2021 1:30pm 36 U/L <35 As of 09/13/19, the Reference Range for ALT/SGPT for adult patients has been updated. The Reference Range for ALT/SGPT has not been established for patients <18 years of age. MAIN LAB [address] [address] Lactic Acid Level March 18, 2021 7:56pm 1.0 mmol/L 0.7-2.1 MAIN LAB [address] [address] Total Protein January 02, 2021 4:44pm 7.9 g/dL 6.3-8.2 MAIN LAB [address] [address] Total Protein January 07, 2021 5:35pm 7.7 g/dL 6.3-8.2 MAIN LAB [address] [address] Total Protein March 16, 2021 5:34pm 7.2 g/dL 6.3-8.2 MAIN LAB [address] [address] Total Protein March 18, 2021 7:56pm 7.6 g/dL 6.3-8.2 MAIN LAB [address] [address] Total Protein August 07, 2021 1:30pm 8.3 g/dL 6.3-8.2 MAIN LAB [address] [address] Albumin January 02, 2021 4:44pm 4.9 g/dL 3.5-5.0 MAIN LAB [address] [address] Albumin January 07, 2021 5:35pm 4.7 g/dL 3.5-5.0 MAIN LAB [address] [address] Albumin March 16, 2021 5:34pm 4.4 g/dL 3.5-5.0 MAIN LAB [address] [address] Albumin March 18, 2021 7:56pm 4.6 g/dL 3.5-5.0 MAIN LAB [address] [address] Albumin August 07, 2021 1:30pm 5.0 g/dL 3.5-5.0 MAIN LAB [address] [address] Alkaline Phosphatase January 02, 2021 4:44pm 58 U/L 38-126 MAIN LAB [address] [address] Alkaline Phosphatase January 07, 2021 5:35pm 58 U/L 38-126 MAIN LAB [address] [address] Alkaline Phosphatase March 16, 2021 5:34pm 45 U/L 38-126 MAIN LAB [address] [address] Alkaline Phosphatase March 18, 2021 7:56pm 47 U/L 38-126 MAIN LAB [address] [address] Alkaline Phosphatase August 07, 2021 1:30pm 58 U/L 38-126 MAIN LAB [address] [address] Lipase August 07, 2021 1:30pm 64 U/L 23-300 MAIN LAB [address] [address] Microbiology Results Procedure Source Result Collection Date/Time Result Date/Time Result Comment Performing Site Blood Culture Blood, Left Antecubital NO GROWTH AFTER 5 DAYS March 24, 2021 7:15am MAIN LAB [address] [address] Urine Culture Ur,Clean Catch March 18, 2021 10:45am MAIN LAB [address] [address] Urine Culture Ur,Clean Catch January 04, 2021 8:36am MAIN LAB [address] [address] Gram Stain Umbilicus March 17, 2021 8:17am [facility] [address] [address] Routine Culture Umbilicus Staphylococcus Aureus-Mrsa March 20, 2021 8:34am [facility] [address] [address] Diagnostic Imaging Reports Report Dictated Date/Time Dictated By Status Radiology Report January 02, 2021 5:42pm Megan Balderas MD completed [facility] CAT SCAN REPORT PATIENT NAME: EDUARDO [...] 16, 2021 8:09pm Tiburcio Heaton MD completed [facility] CAT SCAN REPORT PATIENT NAME: EDUARDO [...] had a laporoscopy compelted on 03/05/21, at [facility] in [place]. States she is having sharp cramping stabbing [...] liver change. Electronically Signed By : Tiburcio eHaton MD dd: [id number] Report Dictated Date/Time Dictated By Status Radiology Report August 07, 2021 4:03pm Yuli Jiang DO completed [facility] CAT SCAN REPORT PATIENT NAME: EDUARDO [...] [place]? No October 14, 2020 11:22pm Pt has a Living Will? No October 14, 2020 11:22pm Do we have a copy on file here at [facility]? 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 No October 14, 2020 11:22pm Insurance Providers Guarantor EDUARDO PAYAN Address [address] [facility] [facility] [address] Contact Info. Home Phone: Payer Policy Id Coverage Id Subscriber's Name Subscriber Id Effective Date Expiration Date MIGUEL ANGEL MCNAMARA [id number] EDUARDO PAYAN [id number] SELF PAY Self N/A Encounters Encounter Location(s) Arrival/Admit Date Discharge/Depart Date Provider(s) Departed Emergency [facility] December 29, 2020 4:23pm December 29, 2020 7:13pm null Departed Emergency [facility] January 02, 2021 4:12pm January 02, 2021 7:22pm null Departed Emergency [facility] January 07, 2021 4:48pm January 07, 2021 6:55pm null Departed Emergency [facility] January 21, 2021 2:24pm January 21, 2021 4:51pm null Departed Emergency [facility] January 29, 2021 8:55pm January 29, 2021 11:08pm null Departed Emergency [facility] March 16, 2021 3:28pm March 16, 2021 10:43pm null Departed Emergency [facility] March 18, 2021 6:11pm March 18, 2021 9:19pm null Departed Emergency [facility] March 20, 2021 2:33pm March 20, 2021 6:25pm null Departed Emergency [facility] March 27, 2021 12:49pm March 27, 2021 3:32pm null Departed Emergency [facility] June 27, 2021 3:30pm June 27, 2021 5:01pm null Departed Emergency [facility] August 07, 2021 11:58am August 07, 2021 5:15pm null Departed Emergency [facility] August 10, 2021 2:19pm August 10, 2021 5:11pm null Departed Emergency [facility] August 26, 2021 5:22pm August 26, 2021 7:15pm null Departed Emergency [facility] September 23, 2021 3:02pm September 23, 2021 7:35pm null Departed Emergency [facility] November 10, 2021 11:22am [...] Date Provider Provider Contact Information Provider Address [facility] Work Phone: [place] [address] [place] Emely holloway MD Work Phone: [facility] [employer]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
--- OUTSIDE RECORDS SUMMARY | 2022-11-20 17:48 | XMS_ITS | Continuity of Care Document ---
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 Name Role Phone PCP, of Choice Primary [...] MG PO DAILY October 15, 2020 2:57pm [facility] 2020 5:42pm Hydrocodone- Acetaminophe n Discontin ued TABLET December 29, 2020 4:35pm January 07, 2021 5:04pm Cefdinir Discontin ued 300 MG PO TWICE A DAY [facility] 2020 4:03pm Septem rinku 2020 9:07pm Tramadol Discontin ued 50 MG PO Q8H 10 [facility] 2020 4:44pm Septem rinku 2020 9:06pm [...] 2020 11:38pm 7.41 1000/mm3 4.8-10.8 MAIN LAB [address] [place] [address] 50524 White Blood Count January 02, 2021 4:44pm 6.81 1000/mm3 4.8-10.8 MAIN LAB [address] [address] White Blood Count January 07, 2021 5:35pm 5.33 1000/mm3 4.8-10.8 MAIN LAB [address] 47690 White Blood Count January 29, 2021 9:57pm 5.85 1000/mm3 4.8-10.8 MAIN LAB [address] 13604 White Blood Count March 16, 2021 5:34pm 6.11 1000/mm3 4.8-10.8 MAIN LAB [address] 01410 Red Blood Count October 14, 2020 11:38pm 4.44 M/mm3 4.20-5.40 MAIN LAB [address] [place] [address] 82435 Red Blood Count January 02, 2021 4:44pm 4.67 M/mm3 4.20-5.40 MAIN LAB [facility] [address] [facility] 8[address] Red Blood Count January 07, 2021 5:35pm 4.85 M/mm3 4.20-5.40 MAIN LAB [facility] [address] [facility] 54407 Red Blood Count January 29, 2021 9:57pm 4.53 M/mm3 4.20-5.40 MAIN LAB [facility] [address] [facility] 70905 Red Blood Count March 16, 2021 5:34pm 4.26 M/mm3 4.20-5.40 MAIN LAB [address] [address]20 Hemoglobin October 14, 2020 11:38pm 9.2 g/dL 12.0-16.0 MAIN LAB [address] [place] [address] 37641 Hemoglobin January 02, 2021 4:44pm 10.4 g/dL 12.0-16.0 MAIN LAB [address] 79204 Hemoglobin January 07, 2021 5:35pm 10.8 g/dL 12.0-16.0 MAIN LAB [address] 90075 Hemoglobin January 29, 2021 9:57pm 10.4 g/dL 12.0-16.0 MAIN LAB [address] 63290 Hemoglobin March 16, 2021 5:34pm 9.9 g/dL 12.0-16.0 MAIN LAB [address] 98285 Hematocrit October 14, 2020 11:38pm 30.6 % 37-47 MAIN LAB [address] [place] [address] 38829 Hematocrit January 02, 2021 4:44pm 35.2 % 37-47 MAIN LAB [address] 18858 Hematocrit January 07, 2021 5:35pm 36.3 % 37-47 MAIN LAB [address] 88099 Hematocrit January 29, 2021 9:57pm 33.7 % 37-47 MAIN LAB [address] [place] [address] Hematocrit March 16, 2021 5:34pm 33.2 % 37-47 MAIN LAB [facility] [address] [facility] 10081 Mean Corpuscular Volume October 14, 2020 11:38pm 68.9 fL 81.0-99.0 MAIN LAB [address] [place] [address] 80011 Mean Corpuscular Volume January 02, 2021 4:44pm 75.4 fL 81.0-99.0 MAIN LAB [address] 38953 Mean Corpuscular Volume January 07, 2021 5:35pm 74.8 fL 81.0-99.0 MAIN LAB [address] 57925 Mean Corpuscular Volume January 29, 2021 9:57pm 74.4 fL 81.0-99.0 MAIN LAB [address] 43223 Mean Corpuscular Volume March 16, 2021 5:34pm 77.9 fL 81.0-99.0 MAIN LAB [address] 81038 Mean Corpuscular Hemoglobin October 14, 2020 11:38pm 20.7 pg 27-31 MAIN LAB [address] [place] [address] 56441 Mean Corpuscular Hemoglobin January 02, 2021 4:44pm 22.3 pg 27-31 MAIN LAB [address] 79899 Mean Corpuscular Hemoglobin January 07, 2021 5:35pm 22.3 pg 27-31 MAIN LAB [address] 43064 Mean Corpuscular Hemoglobin January 29, 2021 9:57pm 23.0 pg 27-31 MAIN LAB [address] 26344 Mean Corpuscular Hemoglobin March 16, 2021 5:34pm 23.2 pg 27-31 MAIN LAB [address] 84842 Mean Corpuscular Hemoglobin Concent October 14, 2020 11:38pm 30.1 g/dL 33-37 MAIN LAB [address] [facility] 92707 Mean Corpuscular Hemoglobin Concent January 02, 2021 4:44pm 29.5 g/dL 33- MAIN LAB [facility] [address] [facility] 93976 Mean Corpuscular Hemoglobin Concent January 07, 2021 5:35pm 29.8 g/dL 33- MAIN LAB [facility] [address] [facility] 49206 Mean Corpuscular Hemoglobin Concent January 29, 2021 9:57pm 30.9 g/dL 33- MAIN LAB [address] 71289 Mean Corpuscular Hemoglobin Concent March 16, 2021 5:34pm 29.8 g/dL 33- MAIN LAB [address] 18856 Red Cell Distribution Width October 14, 2020 11:38pm 16.8 % 11.5-14.5 MAIN LAB [address] [place] [address] 52768 Red Cell Distribution Width January 02, 2021 4:44pm 19.4 % 11.5-14.5 MAIN LAB [address] 57138 Red Cell Distribution Width January 07, 2021 5:35pm 18.6 % 11.5-14.5 MAIN LAB [address] 33543 Red Cell Distribution Width January 29, 2021 9:57pm 17.6 % 11.5-14.5 MAIN LAB [address] 98413 Red Cell Distribution Width March 16, 2021 5:34pm 16.2 % 11.5-14.5 MAIN LAB [address] 18880 Platelet Count October 14, 2020 11:38pm 250 1000/mm3 140-440 MAIN LAB [address] [place] [address] 46761 Platelet Count January 02, 2021 4:44pm 216 1000/mm3 140-440 MAIN LAB [address] 30599 Platelet Count January 07, 2021 5:35pm 240 1000/mm3 140-440 [facility] [address] [address] Platelet Count January 29, 2021 9:57pm 248 1000/mm3 140-440 MAIN LAB [address] 94156 Platelet Count March 16, 2021 5:34pm 220 1000/mm3 140-440 MAIN LAB [address] 77278 Mean Platelet Volume October 14, 2020 11:38pm 10.6 fL 7.4-10.4 MAIN LAB [address] [place] [address] 68980 Mean Platelet Volume January 02, 2021 4:44pm 10.7 fL 7.4-10.4 MAIN LAB [address] 47256 Mean Platelet Volume January 07, 2021 5:35pm 11.3 fL 7.4-10.4 MAIN LAB [address] 00764 Mean Platelet Volume January 29, 2021 9:57pm 10.6 fL 7.4-10.4 MAIN LAB [address] 78183 Mean Platelet Volume March 16, 2021 5:34pm 10.6 fL 7.4-10.4 MAIN LAB [address] 92675 Neutrophils (%) (Auto) October 14, 2020 11:38pm 60.3 % 40.0-72.0 MAIN LAB [address] [place] [address] 31266 Neutrophils (%) (Auto) January 02, 2021 4:44pm 64.3 % 40.0-72.0 MAIN LAB [address] 10308 Neutrophils (%) (Auto) January 07, 2021 5:35pm 51.4 % 40.0-72.0 MAIN LAB [address] 21022 Neutrophils (%) (Auto) January 29, 2021 9:57pm 57.7 % 40.0-72.0 MAIN LAB [address] 28936 Neutrophils (%) (Auto) March 16, 2021 5:34pm 62.5 % 40.0-72.0 MAIN LAB [address] 28042 Lymphocytes (%) (Auto) October 14, 2020 11:38pm 29.0 % 17-45 MAIN LAB [address] [place] [address] 49733 Lymphocytes (%) (Auto) January 02, 2021 4:44pm 26.3 % 17-45 MAIN LAB [address] 15446 Lymphocytes (%) (Auto) January 07, 2021 5:35pm 37.7 % 17-45 MAIN LAB [address] 06224 Lymphocytes (%) (Auto) January 29, 2021 9:57pm 32.6 % 17-45 MAIN LAB [address] 64318 Lymphocytes (%) (Auto) March 16, 2021 5:34pm 26.7 % 17-45 MAIN LAB [address] 27202 Monocytes (%) (Auto) October 14, 2020 11:38pm 8.2 % 3-11 MAIN LAB [address] [place] [address] 21041 Monocytes (%) (Auto) January 02, 2021 4:44pm 6.2 % 3-11 MAIN LAB [address] 12642 Monocytes (%) (Auto) January 07, 2021 5:35pm 6.0 % 3-11 [facility] LAB [address] 80106 Monocytes (%) (Auto) January 29, 2021 9:57pm 6.5 % 3-11 MAIN LAB [address] [place] [address] Monocytes (%) (Auto) March 16, 2021 5:34pm 6.9 % 3-11 MAIN LAB [address] 67154 Eosinophils (%) (Auto) October 14, 2020 11:38pm 1.1 % 0-3 MAIN LAB [address] [place] [address] 80051 Eosinophils (%) (Auto) January 02, 2021 4:44pm 2.2 % 0-3 MAIN LAB [address] 10890 Eosinophils (%) (Auto) January 07, 2021 5:35pm 3.2 % 0-3 MAIN LAB [address] 23961 Eosinophils (%) (Auto) January 29, 2021 9:57pm 1.7 % 0-3 MAIN LAB [address] 86267 Eosinophils (%) (Auto) March 16, 2021 5:34pm 2.6 % 0-3 MAIN LAB [address] 06177 Basophils (%) (Auto) October 14, 2020 11:38pm 1.3 % 0-1 MAIN LAB [address] [place] [address] 53606 Basophils (%) (Auto) January 02, 2021 4:44pm 0.9 % 0-[address] [address] Basophils (%) (Auto) January 07, 2021 5:35pm 1.5 % 0-1 MAIN LAB [address] 69060 Basophils (%) (Auto) January 29, 2021 9:57pm 1.2 % 0-1 [facility] LAB [address] 65466 Basophils (%) (Auto) March 16, 2021 5:34pm 1.1 % 0-[address] [address] Immature Granulocyte % (Auto) October 14, 2020 11:38pm 0.1 % 0-1 MAIN LAB [address] [place] [address] 04534 Immature Granulocyte % (Auto) January 02, 2021 4:44pm 0.1 % 0-1 MAIN LAB [address] 62576 Immature Granulocyte % (Auto) January 07, 2021 5:35pm 0.2 % 0-1 MAIN LAB [address] 09702 Immature Granulocyte % (Auto) January 29, 2021 9:57pm 0.3 % 0-1 MAIN LAB [address] [place] [address] Immature Granulocyte % (Auto) March 16, 2021 5:34pm 0.2 % 0-1 MAIN LAB [address] 89568 Neutrophils # (Auto) October 14, 2020 11:38pm 4.46 1000/mm3 1.4-6.5 MAIN LAB [address] [place] [address] 43893 Neutrophils # (Auto) January 02, 2021 4:44pm 4.38 1000/mm3 1.4-6.5 MAIN LAB [address] 37765 Neutrophils # (Auto) January 07, 2021 5:35pm 2.74 1000/mm3 1.4-6.5 MAIN LAB [address] 67261 Neutrophils # (Auto) January 29, 2021 9:57pm 3.37 1000/mm3 1.4-6.5 MAIN LAB [address] 23163 Neutrophils # (Auto) March 16, 2021 5:34pm 3.82 1000/mm3 1.4-6.5 MAIN LAB [address] 22993 Lymphocytes # (Auto) October 14, 2020 11:38pm 2.15 1000/mm3 1.2-3.4 MAIN LAB [address] [place] [address] 71652 Lymphocytes # (Auto) January 02, 2021 4:44pm 1.79 1000/mm3 1.2-3.4 MAIN LAB [address] 15687 Lymphocytes # (Auto) January 07, 2021 5:35pm 2.01 1000/mm3 1.2-3.4 MAIN LAB [address] 84259 Lymphocytes # (Auto) January 29, 2021 9:57pm 1.91 1000/mm3 1.2-3.4 MAIN LAB [address] 08507 Lymphocytes # (Auto) March 16, 2021 5:34pm 1.63 1000/mm3 1.2-3.4 MAIN LAB [address] 19818 Monocytes # (Auto) October 14, 2020 11:38pm 0.61 1000/mm3 0.0-0.8 MAIN LAB [address] [place] [address] 37252 Monocytes # (Auto) January 02, 2021 4:44pm 0.42 1000/mm3 0.0-0.8 MAIN LAB [address] 06088 Monocytes # (Auto) January 07, 2021 5:35pm 0.32 1000/mm3 0.0-0.8 MAIN LAB [address] 11033 Monocytes # (Auto) January 29, 2021 9:57pm 0.38 1000/mm3 0.0-0.8 MAIN LAB [address] 09947 Monocytes # (Auto) March 16, 2021 5:34pm 0.42 1000/mm3 0.0-0.8 MAIN LAB [address] 59139 Eosinophils # (Auto) October 14, 2020 11:38pm 0.08 1000/mm3 0.0-0.7 MAIN LAB [address] [place] [address] 02208 Eosinophils # (Auto) January 02, 2021 4:44pm 0.15 1000/mm3 0.0-0.7 MAIN LAB [address] 86801 Eosinophils # (Auto) January 07, 2021 5:35pm 0.17 1000/mm3 0.0-0.7 MAIN LAB [address] 11346 Eosinophils # (Auto) January 29, 2021 9:57pm 0.10 1000/mm3 0.0-0.7 MAIN LAB [address] 46916 Eosinophils # (Auto) March 16, 2021 5:34pm 0.16 1000/mm3 0.0-0.7 MAIN LAB [address] 93996 Basophils # (Auto) October 14, 2020 11:38pm 0.10 1000/mm3 0.0-0.1 MAIN LAB [address] [place] [address] 23304 Basophils # (Auto) January 02, 2021 4:44pm 0.06 1000/mm3 0.0-0.1 MAIN LAB [address] 63606 Basophils # (Auto) January 07, 2021 5:35pm 0.08 1000/mm3 0.0-0.1 MAIN LAB [address] 02579 Basophils # (Auto) January 29, 2021 9:57pm 0.07 1000/mm3 0.0-0.1 MAIN LAB [address] 37628 Basophils # (Auto) March 16, 2021 5:34pm 0.07 1000/mm3 0.0-0.1 MAIN LAB [address] 19114 Absolute Immature Granulocyte (auto October 14, 2020 11:38pm 0.0 0-1 MAIN LAB [address] [place] [address] 00517 Absolute Immature Granulocyte (auto January 02, 2021 4:44pm 0.0 0-1 MAIN LAB [address] 30412 Absolute Immature Granulocyte (auto January 07, 2021 5:35pm 0.0 0-1 MAIN LAB [address] 14360 Absolute Immature Granulocyte (auto January 29, 2021 9:57pm 0.0 0-1 MAIN LAB [address] 08776 Absolute Immature Granulocyte (auto March 16, 2021 5:34pm 0.0 0-1 MAIN LAB [address] 14765 Differential Method October 14, 2020 11:38pm Automated MAIN LAB [address] [place] [address] 72744 Differential Method January 02, 2021 4:44pm Automated MAIN LAB [address] 83141 Differential Method January 07, 2021 5:35pm Automated MAIN LAB [address] 86367 Differential Method January 29, 2021 9:57pm Automated MAIN LAB [address] 54353 Differential Method March 16, 2021 5:34pm Automated MAIN LAB [address] 41502 Differential Pathologist's Review October 14, 2020 11:38pm See comment No comparison data on file at [facility]. Microcytic hypochromic anemia, consistent with iron deficiency.Brice veronica reviewed by pathologist for quality project manager.Hair Mello MD10/15/20 MAIN LAB [address] [place] [address] 84704 Prothrombin Time October 14, 2020 11:38pm 10.8 SECONDS 9.6-11.2 MAIN LAB [address] [place] [address] 01479 Prothromb Time International Ratio October 14, 2020 11:38pm 1.1 2.0-3.0 INR value valid only on patients on stabilized warfarin therapy. The recommended therapeutic range for warfarin (Coumadin) for most clinical indications is an INR of 2.0-3.0. An INR of 2.5-3.5 is recommended for patients with mechanical heart valves. MAIN LAB [address] [place] [address] 51978 Activated Partial Thromboplast Time October 14, 2020 11:38pm 26.1 SECONDS 21.6-36.0 A target of 1.5-2.5 times the mean of the normal reference range is considered therapeutic. NOTE: APTT must NOT be used to monitor LMWH therapy. Contact [facility] Pharmacy for monitoring information. MAIN LAB [address] [place] [address] 50219 Urine Color January 02, 2021 6:04pm Lauren MAIN LAB [address] 12466 Urine Clarity January 02, 2021 6:04pm very cloudy MAIN LAB [address] 31646 Urine pH January 02, 2021 6:04pm 6.0 MAIN LAB [address] 85620 Urine Specific [place] January 02, 2021 6:04pm 1.015 MAIN LAB [address] 94982 Urine Protein January 02, 2021 6:04pm 100 (2+) mg/dL NEGATIVE MAIN LAB [address] 95384 Urine Glucose (UA) January 02, 2021 6:04pm Normal mg/dL NORMAL MAIN LAB [address] 38828 Urine Ketones January 02, 2021 6:04pm Negative NEGATIVE MAIN LAB [address] 73375 Urine Nitrite January 02, 2021 6:04pm Negative Negative MAIN LAB [address] 21478 Urine Bilirubin January 02, 2021 6:04pm Negative mg/dL NEGATIVE MAIN LAB [address] 09972 Urine Urobilinogen January 02, 2021 6:04pm Normal mg/dL NORMAL MAIN LAB [address] 28870 Urine Leukocyte Esterase January 02, 2021 6:04pm Moderate (2+) WBC/uL NEGATIVE MAIN LAB [address] 10925 Urine Blood January 02, 2021 6:04pm Large (3+) JOEL/uL NEGATIVE MAIN LAB [address] 18027 Urine RBC October 14, 2020 11:45pm 10-20 /hpf MAIN LAB [address] [place] [address] 21816 Urine RBC January 02, 2021 6:04pm Tntc /hpf MAIN LAB [address] 79417 Urine RBC March 16, 2021 6:40pm Tntc /hpf MAIN LAB [address] 03078 Urine WBC October 14, 2020 11:45pm 0-2 /hpf MAIN LAB [address] [place] [address] 85841 Urine WBC January 02, 2021 6:04pm 3-5 /hpf MAIN LAB [address] 72956 Urine WBC March 16, 2021 6:40pm See comment /hpf Microscopic field obscured by RBC. MAIN LAB [address] 16860 Urine Squamous Epithelial Cells January 02, 2021 6:04pm 1+ /hpf MAIN LAB [address] 69708 Urine Bacteria October 14, 2020 11:45pm 1+ /hpf NONE SEEN MAIN LAB [address] [place] [address] 30566 Urine Bacteria January 02, 2021 6:04pm None seen /hpf NONE SEEN MAIN LAB [address] 86040 Urine Bacteria March 16, 2021 6:40pm See comment /hpf NONE SEEN Microscopic field obscured by RBC. MAIN LAB [address] 86131 Urine Mucus October 14, 2020 11:45pm Present MAIN LAB [address] [place] [address] 34008 Urine Culture Done October 14, 2020 11:45pm No CULTURE NOT INDICATED. MAIN LAB [address] [place] [address] 44220 Urine Culture Done January 02, 2021 6:04pm Yes URINE SPECIMEN CULTURED MAIN LAB [address] 13046 Urine Culture Done March 16, 2021 6:40pm Yes URINE SPECIMEN CULTURED MAIN LAB [address] [address] Urine Test January 02, 2021 6:04pm Negative NEGATIVE MAIN LAB [address] 02004 Sodium Level October 14, 2020 11:38pm 138 mmol/L 137-145 MAIN LAB [address] [place] [address] 18144 Sodium Level January 02, 2021 4:44pm 141 mmol/L 137-145 MAIN LAB [address] 11872 Sodium Level January 07, 2021 5:35pm 140 mmol/L 137-145 MAIN LAB [address] 22103 Sodium Level January 29, 2021 9:57pm 137 mmol/L 137-145 MAIN LAB [address] 11832 Sodium Level March 16, 2021 5:34pm 137 mmol/L 137-145 MAIN LAB [address] 59455 Potassium Level October 14, 2020 11:38pm 3.8 mmol/L 3.6-5.0 MAIN LAB [address] [place] [address] 06755 Potassium Level January 02, 2021 4:44pm 3.9 mmol/L 3.6-5.0 MAIN LAB [place] [address] [facility] [address] Potassium Level January 07, 2021 5:35pm 3.7 mmol/L 3.6-5.0 MAIN LAB [facility] [address] [facility] 31835 Potassium Level January 29, 2021 9:57pm 3.5 mmol/L 3.6-5.0 MAIN LAB [facility] [address] [facility] 76325 Potassium Level March 16, 2021 5:34pm 4.0 mmol/L 3.6-5.0 MAIN LAB [facility] [address] [facility] 16643 Chloride Level October 14, 2020 11:38pm 100 mmol/L 98-107 MAIN LAB [address] [facility] 41096 Chloride Level January 02, 2021 4:44pm 104 mmol/L 98-107 MAIN LAB [facility] [address] [facility] 43012 Chloride Level January 07, 2021 5:35pm 103 mmol/L 98-107 MAIN LAB [facility] [address] [facility] 23265 Chloride Level January 29, 2021 9:57pm 99 mmol/L 98-107 MAIN LAB [facility] [address] [facility] 74020 Chloride Level March 16, 2021 5:34pm 102 mmol/L 98-107 MAIN LAB [facility] [address] [facility] 38705 Carbon Dioxide Level October 14, 2020 11:38pm 25 mmol/L 22-30 MAIN LAB [address] [facility] 77502 Carbon Dioxide Level January 02, 2021 4:44pm 26 mmol/L 22-30 MAIN LAB [facility] [address] [facility] 39569 Carbon Dioxide Level January 07, 2021 5:35pm 27 mmol/L 22-30 MAIN LAB [facility] [address] [facility] 36303 Carbon Dioxide Level January 29, 2021 9:57pm 27 mmol/L 22-30 MAIN LAB [facility] [address] [facility] 27500 Carbon Dioxide Level March 16, 2021 5:34pm 28 mmol/L 22-30 MAIN LAB [facility] [address] [facility] 03122 Anion Gap October 14, 2020 11:38pm 13 7-16 MAIN LAB [address] [facility] 57027 Anion Gap January 02, 2021 4:44pm 11 7-16 MAIN LAB [facility] [address] [facility] 76395 Anion Gap January 07, 2021 5:35pm 10 7-16 MAIN LAB [facility] [address] [facility] 49017 Anion Gap January 29, 2021 9:57pm 11 7-16 MAIN LAB [facility] [address] [facility] 28168 Anion Gap March 16, 2021 5:34pm 7 7-16 MAIN LAB [address] 57197 Blood Urea Nitrogen October 14, 2020 11:38pm 15 mg/dL 7-17 MAIN LAB [address] [place] [address] 95412 Blood Urea Nitrogen January 02, 2021 4:44pm 11 mg/dL 7-17 MAIN LAB [address] 02738 Blood Urea Nitrogen January 07, 2021 5:35pm 13 mg/dL 7- MAIN LAB [address] 12972 Blood Urea Nitrogen January 29, 2021 9:57pm 13 mg/dL 7- MAIN LAB [address] 61332 Blood Urea Nitrogen March 16, 2021 5:34pm 10 mg/dL 7-17 MAIN LAB [address] 86466 Creatinine October 14, 2020 11:38pm 0.76 mg/dL 0.52-1.04 MAIN LAB [address] [place] [address] 15185 Creatinine January 02, 2021 4:44pm 0.76 mg/dL 0.52-1.04 MAIN LAB [address] 89644 Creatinine January 07, 2021 5:35pm 0.79 mg/dL 0.52-1.04 MAIN LAB [address] 73081 Creatinine January 29, 2021 9:57pm 0.84 mg/dL 0.52-1.04 MAIN LAB [address] 70096 Creatinine March 16, 2021 5:34pm 0.62 mg/dL 0.52-1.04 MAIN LAB [address] 29806 Glomerular Filtration Rate Calc October 14, 2020 11:38pm > 60 mL/min >60.0 MAIN LAB [address] [place] [address] 05178 Glomerular Filtration Rate Calc January 02, 2021 4:44pm > 60 mL/min >60.0 MAIN LAB [address] 77849 Glomerular Filtration Rate Calc January 07, 2021 5:35pm > 60 mL/min >60.0 MAIN LAB [address] 87523 Glomerular Filtration Rate Calc January 29, 2021 9:57pm > 60 mL/min >60.0 MAIN LAB [address] 67096 Glomerular Filtration Rate Calc March 16, 2021 5:34pm > 60 mL/min >60.0 MAIN LAB [address] 92746 Glucose Level October 14, 2020 11:38pm 88 mg/dL 70-100 MAIN LAB [address] [place] [address] 32761 Glucose Level January 02, 2021 4:44pm 88 mg/dL 70-100 MAIN LAB [address] 68493 Glucose Level January 07, 2021 5:35pm 105 mg/dL 70-100 MAIN LAB [address] 83483 Glucose Level January 29, 2021 9:57pm 92 mg/dL 70-100 MAIN LAB [address] 27088 Glucose Level March 16, 2021 5:34pm 90 mg/dL 70-100 MAIN LAB [address] 62785 Calcium Level October 14, 2020 11:38pm 9.3 mg/dL 8.4-10.2 MAIN LAB [address] [place] [address] 66466 Calcium Level January 02, 2021 4:44pm 9.3 mg/dL 8.4-10.2 MAIN LAB [address] 57648 Calcium Level January 07, 2021 5:35pm 9.6 mg/dL 8.4-10.2 MAIN LAB [address] 73215 Calcium Level January 29, 2021 9:57pm 9.8 mg/dL 8.4-10.2 MAIN LAB [address] 10268 Calcium Level March 16, 2021 5:34pm 9.5 mg/dL 8.4-10.2 MAIN LAB [address] 68138 Calcium Adjusted for Albumin October 14, 2020 11:38pm 9.2 mg/dL 8.4-10.2 MAIN LAB [address] [place] [address] 14694 Calcium Adjusted for Albumin January 02, 2021 4:44pm 8.8 mg/dL 8.4-10.2 MAIN LAB [address] 78713 Calcium Adjusted for Albumin January 07, 2021 5:35pm 9.3 mg/dL 8.4-10.2 MAIN LAB [address] 48214 Calcium Adjusted for Albumin March 16, 2021 5:34pm 9.4 mg/dL 8.4-10.2 MAIN LAB [address] 13538 Iron Level October 14, 2020 11:38pm 36 ug/dL 37-170 MAIN LAB [address] [place] [address] 76754 Total Bilirubin October 14, 2020 11:38pm 0.3 mg/dL 0.2-1.3 MAIN LAB [address] [place] [address] 13656 Total Bilirubin January 02, 2021 4:44pm 0.4 mg/dL 0.2-1.3 MAIN LAB [address] 92572 Total Bilirubin January 07, 2021 5:35pm 0.4 mg/dL 0.2-1.3 MAIN LAB [address] 14519 Total Bilirubin March 16, 2021 5:34pm 0.4 mg/dL 0.2-1.3 MAIN LAB [address] 46408 Aspartate Amino Transf (AST/SGOT) October 14, 2020 11:38pm 55 U/L 14-36 MAIN LAB [address] [place] [address] 22301 Aspartate Amino Transf (AST/SGOT) January 02, 2021 4:44pm 39 U/L 14-36 MAIN LAB [address] 79732 Aspartate Amino Transf (AST/SGOT) January 07, 2021 5:35pm 38 U/L 14-36 MAIN LAB [address] 61437 Aspartate Amino Transf (AST/SGOT) March 16, 2021 5:34pm 36 U/L 14-36 MAIN LAB [address] 97956 Alanine Aminotransferase (ALT/SGPT) October 14, 2020 11:38pm 41 U/L <35 As of 09/13/19, the Reference Range for ALT/SGPT for adult patients has been updated. The Reference Range for ALT/SGPT has not been established for patients <18 years of age. MAIN LAB [address] [place] [address] 95002 Alanine Aminotransferase (ALT/SGPT) January 02, 2021 4:44pm 21 U/L <35 As of 09/13/19, the Reference Range for ALT/SGPT for adult patients has been updated. The Reference Range for ALT/SGPT has not been established for patients <18 years of age. MAIN LAB [address] [address] Alanine Aminotransferase (ALT/SGPT) January 07, 2021 5:35pm 23 U/L <35 As of 09/13/19, the Reference Range for ALT/SGPT for adult patients has been updated. The Reference Range for ALT/SGPT has not been established for patients <18 years of age. MAIN LAB [address] [address]76 Alanine Aminotransferase (ALT/SGPT) March 16, 2021 5:34pm 17 U/L <35 As of 09/13/19, the Reference Range for ALT/SGPT for adult patients has been updated. The Reference Range for ALT/SGPT has not been established for patients <18 years of age. MAIN LAB [address] 15143 Total Protein October 14, 2020 11:38pm 7.4 g/dL 6.3-8.2 MAIN LAB [address] [place] [address] 89380 Total Protein January 02, 2021 4:44pm 7.9 g/dL 6.3-8.2 [facility] [address] [address] Total Protein January 07, 2021 5:35pm 7.7 g/dL 6.3-8.2 [facility] [address] [address] Total Protein March 16, 2021 5:34pm 7.2 g/dL 6.3-8.2 [facility] [address] [address] Albumin October 14, 2020 11:38pm 4.4 g/dL 3.5-5.0 [facility] [address] [place] [address] Albumin January 02, 2021 4:44pm 4.9 g/dL 3.5-5.0 [facility] [address] [address] Albumin January 07, 2021 5:35pm 4.7 g/dL 3.5-5.0 [facility] [address] [address] Albumin March 16, 2021 5:34pm 4.4 g/dL 3.5-5.0 [facility] [address] [address] Alkaline Phosphatase October 14, 2020 11:38pm 55 U/L 38-126 [facility] [address] [place] [address] Alkaline Phosphatase January 02, 2021 4:44pm 58 U/L 38-126 [facility] [address] [address] Alkaline Phosphatase January 07, 2021 5:35pm 58 U/L 38-126 [facility] [address] [address] Alkaline Phosphatase March 16, 2021 5:34pm 45 U/L 38-126 MAIN LAB [facility] [address] [facility] [address] Lipase October 14, 2020 11:38pm 43 U/L 23-300 MA[facility] [address] [facility] [address] Ferritin October 14, 2020 11:38pm 4.43 ng/mL 10-291 The results of this assay can be falsely decreased in patients who consume Biotin. MAIN LAB [address] [place] [id number] Microbiology Results Procedure Source Result Collection Date/Time Result Date/Time Result Comment Performing Site Urine Culture Ur,Clean Catch January 02, 2021 6:40pm January 04, 2021 8:36am [facility] [address] [address] Diagnostic Imaging Reports Report Dictated Date/Time Dictated By Status Radiology Report January 02, 2021 5:42pm Megan Balderas MD completed [facility] CAT SCAN REPORT PATIENT NAME: EDUARDO [...] 16, 2021 8:09pm Tiburcio Heaton MD completed [facility] CAT SCAN REPORT PATIENT NAME: EDUARDO [...] had a laporoscopy compelted on 03/05/21, at [facility] in [place]. States she is having sharp cramping stabbing [...] [place]? No October 14, 2020 11:22pm Pt has a Living Will? No October 14, 2020 11:22pm Do we have a copy on file here at [facility]? 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 No October 14, 2020 11:22pm Do we have a copy on file here at [facility]? No October 14, 2020 11:22pm Insurance Providers Guarantor EDUARDO PAYAN Address [address] [place] [address] Contact Info. Home Phone: Payer Policy Id Coverage Id Subscriber's Name Subscriber Id Effective Date Expiration Date [facility] [id number] EDUARDO PAYAN [id number] SELF PAY Self N/A Encounters Encounter Location(s) Arrival/Admit Date Discharge/Depart Date Provider(s) Departed Emergency [facility] October 14, 2020 10:48pm October 15, 2020 12:54am null Departed Emergency [facility] December 29, 2020 4:23pm December 29, 2020 7:13pm null Departed Emergency [facility] January 02, 2021 4:12pm January 02, 2021 7:22pm null Departed Emergency [facility] January 07, 2021 4:48pm January 07, 2021 6:55pm null Departed Emergency [facility] January 21, 2021 2:24pm [...] Dr. Chavez and will see for US [facility] Obstectrics and Gynecology Work Phone: [address] [facility] [id number] No Pcp Mahad Chavez MD Work Phone: [facility] [employer] [address] [facility] [address] No Pcp No Pcp No Pcp No [...]
--- OUTSIDE RECORDS SUMMARY | 2022-11-20 17:48 | XMS_ITS | Continuity of Care Document ---
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 Role Phone PCP, of Choice Primary Care Provider MARIELLA Lugo Emergency Provider MD Tae Zapata Emergency Provider MARIELLA Ledezma Emergency Provider [phone] Out of Town, Provider Primary Care Provider MARIELLA May Emergency Provider MD Yolanda Dial Emergency Provider [phone] MD Konstantin Villaseñor Emergency Provider MD Praveen Harden Emergency Provider [phone] KIRA Garcia Emergency Provider MD Pierce Cowan Emergency Provider Tae Quiroz Emergency Provider [phone] Chief Complaint and Reason for Visit Chief Complaint OVARIAN CYST POST OP CONCERN ABDOMINAL PAIN HEAVY VAG BLEEDING FALL/ BACK COMPLAINT PELVIC PAIN RIGHT SIDE PAIN 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 POST OP CONCERN POST OP CONCERN, BLEEDING Allergies, Adverse Reactions, Alerts Allergen Type Severity Reaction Last Updated Verified Status droperidol Allergy anaphylactic shock 2022 6:14pm Yes Active haloperidol Allergy rash 2022 6:14pm Yes Active ibuprofen Allergy 2022 6:14pm Yes Active ketorolac Allergy anaphylaxis 2022 6:14pm Yes Active latex Allergy rash 2022 6:14pm Yes Active Penicillins Allergy hives 2022 6:14pm Yes Active prochlorperazine Allergy hives December 142021 6:14pm Yes Active Social History Smoking Status Status Start Date End Date Date of Observa tion Never smoked tobacco (finding) 2022 7:23pm Observation Status Observation Response Date of Response Alcohol Use Yes January 10 7:23pm alcohol intake frequency a few times a month Dec us2021 7:23pm Alcohol type hard liquor January 10 7:23pm Substance/Street Drug Use Yes 2022 7:23pm Substance Use Treatment No December 142021 7:23pm substance use type marijuana 2022 7:23pm Smoking Status Never smoker January 10 7:23pm Additional Data Assigned Sex Female Problems Active Problems Medical Problem Onset Date Status Pelvic pain Active Vaginal bleeding Active Inactive/Resolved Problems Medical Problem Onset Date Status Abdominal pain, RLQ Resolved Ovarian cyst Resolved Pelvic pain Resolved Pelvic pain Resolved Functional abdominal pain syndrome Resolved Diarrhea Resolved Diarrhea Resolved Gastritis Resolved MRSA (methicillin resistant Staphylococcus aureu s) infection Resolved Abnormal vaginal bleeding Resolv ed Post-operative pain [...] MG PO DAILY October 15, 2020 12:00am Novemb er 2020 5:42pm Hydrocodone-A cetaminophen Disconti nued TABLET December 29, 2020 12:00am January 07, 2021 5:04pm Cefdinir Disconti nued 300 MG PO TWICE A DAY er 2020 12:00am Sept2020 9:07pm Tramadol Disconti nued 50 MG PO Q8H 10 er 2020 12:00am 2020 9:06pm Montelukast Active [...] Omeprazole Active MG September 23, 2021 12:00am Norethindrone Acetate Active 5 MG PO DAILY 2022 12:00am Gabapentin Active 200 MG PO DAILY January 02, 2021 12:00am Hydrocodone-A cetaminophen Disconti nued 1 TAB PO Q6H January 02, 2021 January 07, 2021 5:04pm Ondansetron Disconti nued 4 MG PO Q6H January 02, 2021 12:00am August 07, 2021 12:12p m Famotidine-Ca Carb-Mag Hydrox (Pepcid Complete) 10-800-165 mg tablet,chewab le Disconti nued 1 TAB PO DAILY January 08, 2021 12:00am 2020 9:07pm Dicyclomine Disconti nued 10 MG PO .q6 prn January 08, 2021 12:00am Septem 2020 3:08pm Oxycodone Disconti nued MG CAPSULE Novembe r 2020 12:00am Februa ry 2021 3:37pm Fluticasone Propion-Salme terol (Advair Hfa) 115-21 mcg/actuation HFA aerosol inhaler Active INH 2020 12:00am Ondansetron Hcl (Zofran) 4 mg tablet Disconti nued 4 MG PO Q8H 12 4 Novembe [...] completed Routine Culture completed Urine Culture completed Blood Culture completed Relevant Diagnostic Tests and/or Laboratory Data Laboratory Results Test Date/Time Result Interpretation Reference Range Result Comment Performing Site White Blood Count January 29, 2021 9:57pm 5.85 1000/mm3 4.8-10.8 [facility] [address] [address] White Blood Count March 16, 2021 5:34pm 6.11 1000/mm3 4.8-10.8 [facility] [address] [address] White Blood Count March 18, 2021 7:56pm 5.26 1000/mm3 4.8-10.8 [facility] [address] [address] White Blood Count March 20, 2021 4:37pm 4.94 1000/mm3 4.8-10.8 [facility] [address] [address] White Blood Count August 07, 2021 1:30pm 4.95 1000/mm3 4.8-10.8 [facility] [address] [address] White Blood Count August 10, 2021 3:14pm 4.83 1000/mm3 4.8-10.8 [facility] [address] [address] White Blood Count November 10, 2021 1:00pm 4.91 1000/mm3 4.8-10.8 [facility] [address] [address] White Blood Count 2022 8:10pm 5.41 1000/mm3 4.8-10.8 [facility] [address] [address] Red Blood Count January 29, 2021 9:57pm 4.53 M/mm3 4.20-5.40 [facility] [address] [address] Red Blood Count March 16, 2021 5:34pm 4.26 M/mm3 4.20-5.40 [facility] [address] [address] Red Blood Count March 18, 2021 7:56pm 4.17 M/mm3 4.20-5.40 [facility] [address] [address] Red Blood Count March 20, 2021 4:37pm 4.14 M/mm3 4.20-5.40 [facility] [address] [address] Red Blood Count August 07, 2021 1:30pm 4.43 M/mm3 4.20-5.40 [facility] [address] [address] Red Blood Count August 10, 2021 3:14pm 3.83 M/mm3 4.20-5.40 [facility] [address] [address] Red Blood Count November 10, 2021 1:00pm 3.22 M/mm3 4.20-5.40 [facility] [address] [address] Red Blood Count 2022 8:10pm 4.00 M/mm3 4.20-5.40 MA[facility] LAB [address] [place] [address] Hemoglobin January 29, 2021 9:57pm 10.4 g/dL 12.0-16.0 MA[facility] LAB [facility] [address] [facility] [address] Hemoglobin March 16, 2021 5:34pm 9.9 g/dL 12.0-16.0 [facility] [address] [facility] [address] Hemoglobin March 18, 2021 7:56pm 9.9 g/dL 12.0-16.0 [facility] [address] [facility] [address] Hemoglobin March 20, 2021 4:37pm 9.8 g/dL 12.0-16.0 [facility] [address] [address] Hemoglobin August 07, 2021 1:30pm 11.4 g/dL 12.0-16.0 [facility] [address] [address] Hemoglobin August 10, 2021 3:14pm 9.9 g/dL 12.0-16.0 [facility] [address] [address] Hemoglobin November 10, 2021 1:00pm 8.4 g/dL 12.0-16.0 [facility] [address] [address] Hemoglobin 2022 8:10pm 8.6 g/dL 12.0-16.0 [facility] [address] [address] Hematocrit January 29, 2021 9:57pm 33.7 % 37-47 MA[facility] [address] [facility] [address] Hematocrit March 16, 2021 5:34pm 33.2 % 37-47 [facility] [address] [address] Hematocrit March 18, 2021 7:56pm 32.9 % 37-47 [facility] [address] [address] Hematocrit March 20, 2021 4:37pm 32.6 % 37-47 [facility] [address] [address] Hematocrit August 07, 2021 1:30pm 36.4 % 37-47 [facility] [address] [facility] [address] Hematocrit August 10, 2021 3:14pm 31.6 % 37-47 [facility] [address] [facility] [address] Hematocrit November 10, 2021 1:00pm 26.8 % 37-47 [facility] [address] [facility] [address] Hematocrit 2022 8:10pm 29.3 % 37-47 [facility] [address] [facility] [address] Mean Corpuscular Volume January 29, 2021 9:57pm 74.4 fL 81.0-99.0 [facility] [address] [facility] [address] Mean Corpuscular Volume March 16, 2021 5:34pm 77.9 fL 81.0-99.0 [facility] [address] [facility] [address] Mean Corpuscular Volume March 18, 2021 7:56pm 78.9 fL 81.0-99.[address] [address] Mean Corpuscular Volume March 20, 2021 4:37pm 78.7 fL 81.0-99.0 [facility] [address] [facility] [address] Mean Corpuscular Volume August 07, 2021 1:30pm 82.2 fL 81.0-99.0 [facility] [address] [facility] [address] Mean Corpuscular Volume August 10, 2021 3:14pm 82.5 fL 81.0-99.0 [facility] [address] [facility] [address] Mean Corpuscular Volume November 10, 2021 1:00pm 83.2 fL 81.0-99.0 [facility] [address] [facility] [address] Mean Corpuscular Volume 2022 8:10pm 73.3 fL 81.0-99.0 [facility] [address] [facility] [address] Mean Corpuscular Hemoglobin January 29, 2021 9:57pm 23.0 pg 27-31 MA[facility] [address] [address] Mean Corpuscular Hemoglobin March 16, 2021 5:34pm 23.2 pg 27-31 [facility] [address] [address] Mean Corpuscular Hemoglobin March 18, 2021 7:56pm 23.7 pg 27-31 [facility] [address] [address] Mean Corpuscular Hemoglobin March 20, 2021 4:37pm 23.7 pg 27-31 [facility] [address] [address] Mean Corpuscular Hemoglobin August 07, 2021 1:30pm 25.7 pg 27-31 [facility] [address] [address] Mean Corpuscular Hemoglobin August 10, 2021 3:14pm 25.8 pg 27-31 [facility] [address] [address] Mean Corpuscular Hemoglobin November 10, 2021 1:00pm 26.1 pg 27-31 [facility] [address] [address] Mean Corpuscular Hemoglobin 2022 8:10pm 21.5 pg 27-31 [facility] [address] [address] Mean Corpuscular Hemoglobin Concent January 29, 2021 9:57pm 30.9 g/dL 33-37 [facility] [address] [address] Mean Corpuscular Hemoglobin Concent March 16, 2021 5:34pm 29.8 g/dL 33-37 [facility] [address] [address] Mean Corpuscular Hemoglobin Concent March 18, 2021 7:56pm 30.1 g/dL 33-37 [facility] [address] [address] Mean Corpuscular Hemoglobin Concent March 20, 2021 4:37pm 30.1 g/dL 33-37 MA[facility] LAB [facility] [address] [facility] [address] Mean Corpuscular Hemoglobin Concent August 07, 2021 1:30pm 31.3 g/dL 33-37 MA[facility] [address] [facility] [address] Mean Corpuscular Hemoglobin Concent August 10, 2021 3:14pm 31.3 g/dL 33-37 MA[facility] [address] [facility] [address] Mean Corpuscular Hemoglobin Concent November 10, 2021 1:00pm 31.3 g/dL 33-37 [facility] [address] [address] Mean Corpuscular Hemoglobin Concent 2022 8:10pm 29.4 g/dL 33-37 [facility] [address] [address] Red Cell Distribution Width January 29, 2021 9:57pm 17.6 % 11.5-14.5 [facility] [address] [address] Red Cell Distribution Width March 16, 2021 5:34pm 16.2 % 11.5-14.5 [facility] [address] [address] Red Cell Distribution Width March 18, 2021 7:56pm 16.4 % 11.5-14.5 [facility] [address] [address] Red Cell Distribution Width March 20, 2021 4:37pm 16.5 % 11.5-14.5 [facility] [address] [address] Red Cell Distribution Width August 07, 2021 1:30pm 14.0 % 11.5-14.5 [facility] [address] [address] Red Cell Distribution Width August 10, 2021 3:14pm 14.0 % 11.5-14.5 [facility] [address] [address] Red Cell Distribution Width November 10, 2021 1:00pm 14.4 % 11.5-14.5 [facility] [address] [address] Red Cell Distribution Width 2022 8:10pm 15.2 % 11.5-14.5 [facility] [address] [address] Platelet Count January 29, 2021 9:57pm 248 1000/mm3 140-440 [facility] [address] [address] Platelet Count March 16, 2021 5:34pm 220 1000/mm3 140-440 [facility] [address] [address] Platelet Count March 18, 2021 7:56pm 212 1000/mm3 140-440 [facility] [address] [address] Platelet Count March 20, 2021 4:37pm 177 1000/mm3 140-440 [facility] [address] [address] Platelet Count August 07, 2021 1:30pm 207 1000/mm3 140-440 [facility] [address] [address] Platelet Count August 10, 2021 3:14pm 189 1000/mm3 140-440 [facility] [address] [address] Platelet Count November 10, 2021 1:00pm 282 1000/mm3 140-440 [facility] [address] [address] Platelet Count 2022 8:10pm 217 1000/mm3 140-440 [facility] [address] [address] Mean Platelet Volume January 29, 2021 9:57pm 10.6 fL 7.4-10.4 [facility] [address] [address] Mean Platelet Volume March 16, 2021 5:34pm 10.6 fL 7.4-10.4 [facility] [address] [address] Mean Platelet Volume March 18, 2021 7:56pm 10.4 fL 7.4-10.4 [facility] [address] [address] Mean Platelet Volume March 20, 2021 4:37pm 9.9 fL 7.4-10.[address] [address] Mean Platelet Volume August 07, 2021 1:30pm 11.0 fL 7.4-10.[address] [address] Mean Platelet Volume August 10, 2021 3:14pm 10.7 fL 7.4-10.[address] [address] Mean Platelet Volume November 10, 2021 1:00pm 10.5 fL 7.4-10.[address] [address] Mean Platelet Volume 2022 8:10pm 12.9 fL 7.4-10.[address] [address] Neutrophils (%) (Auto) January 29, 2021 9:57pm 57.7 % 40.0-72.[address] [address] Neutrophils (%) (Auto) March 16, 2021 5:34pm 62.5 % 40.0-72.[address] [address] Neutrophils (%) (Auto) March 18, 2021 7:56pm 57.9 % 40.0-72.[address] [address] Neutrophils (%) (Auto) March 20, 2021 4:37pm 64.0 % 40.0-72.[address] [address] Neutrophils (%) (Auto) August 07, 2021 1:30pm 67.7 % 40.0-72.[address] [address] Neutrophils (%) (Auto) August 10, 2021 3:14pm 58.2 % 40.0-72.[address] [address] Neutrophils (%) (Auto) November 10, 2021 1:00pm 67.8 % 40.0-72.[address] [address] Neutrophils (%) (Auto) 2022 8:10pm 58.0 % 40.0-72.[address] [address] Lymphocytes (%) (Auto) January 29, 2021 9:57pm 32.6 % 17-[address] [address] Lymphocytes (%) (Auto) March 16, 2021 5:34pm 26.7 % 17-[address] [address] Lymphocytes (%) (Auto) March 18, 2021 7:56pm 30.4 % 17-[address] [address] Lymphocytes (%) (Auto) March 20, 2021 4:37pm 26.1 % 17-[address] [address] Lymphocytes (%) (Auto) August 07, 2021 1:30pm 24.2 % 17-[address] [address] Lymphocytes (%) (Auto) August 10, 2021 3:14pm 32.3 % 17-[address] [address] Lymphocytes (%) (Auto) November 10, 2021 1:00pm 23.4 % 17-[address] [address] Lymphocytes (%) (Auto) 2022 8:10pm 31.4 % 17-[address] [address] Monocytes (%) (Auto) January 29, 2021 9:57pm 6.5 % 3-[address] [address] Monocytes (%) (Auto) March 16, 2021 5:34pm 6.9 % 3-[address] [address] Monocytes (%) (Auto) March 18, 2021 7:56pm 7.2 % 3-11 MA[facility] [address] [address] Monocytes (%) (Auto) March 20, 2021 4:37pm 5.9 % 3-11 [facility] [address] [address] Monocytes (%) (Auto) August 07, 2021 1:30pm 5.9 % 3-11 MA[facility] [address] [address] Monocytes (%) (Auto) August 10, 2021 3:14pm 6.6 % 3-[address] [address] Monocytes (%) (Auto) November 10, 2021 1:00pm 4.7 % 3-11 [facility] [address] [address] Monocytes (%) (Auto) 2022 8:10pm 7.6 % 3-11 [facility] [address] [address] Eosinophils (%) (Auto) January 29, 2021 9:57pm 1.7 % 0-[address] [address] Eosinophils (%) (Auto) March 16, 2021 5:34pm 2.6 % 0-[address] [address] Eosinophils (%) (Auto) March 18, 2021 7:56pm 3.2 % 0-3 [facility] [address] [address] Eosinophils (%) (Auto) March 20, 2021 4:37pm 2.8 % 0-3 [facility] [address] [address] Eosinophils (%) (Auto) August 07, 2021 1:30pm 1.2 % 0-3 [facility] [address] [address] Eosinophils (%) (Auto) August 10, 2021 3:14pm 2.1 % 0-3 [facility] [address] [address] Eosinophils (%) (Auto) November 10, 2021 1:00pm 3.1 % 0-[address] [address] Eosinophils (%) (Auto) 2022 8:10pm 1.7 % 0-[address] [address] Basophils (%) (Auto) January 29, 2021 9:57pm 1.2 % 0-[address] [address] Basophils (%) (Auto) March 16, 2021 5:34pm 1.1 % 0-[address] [address] Basophils (%) (Auto) March 18, 2021 7:56pm 1.1 % 0-[address] [address] Basophils (%) (Auto) March 20, 2021 4:37pm 1.0 % 0-[address] [address] Basophils (%) (Auto) August 07, 2021 1:30pm 0.8 % 0-[address] [address] Basophils (%) (Auto) August 10, 2021 3:14pm 0.6 % 0-[address] [address] Basophils (%) (Auto) November 10, 2021 1:00pm 0.6 % 0-[address] [address] Basophils (%) (Auto) 2022 8:10pm 1.1 % 0-[address] [address] Immature Granulocyte % (Auto) January 29, 2021 9:57pm 0.3 % 0-[address] [address] Immature Granulocyte % (Auto) March 16, 2021 5:34pm 0.2 % 0-1 [facility] [address] [address] Immature Granulocyte % (Auto) March 18, 2021 7:56pm 0.2 % 0-1 [facility] [address] [address] Immature Granulocyte % (Auto) March 20, 2021 4:37pm 0.2 % 0-1 [facility] [address] [address] Immature Granulocyte % (Auto) August 07, 2021 1:30pm 0.2 % 0-1 [facility] [address] [address] Immature Granulocyte % (Auto) August 10, 2021 3:14pm 0.2 % 0-[address] [address] Immature Granulocyte % (Auto) November 10, 2021 1:00pm 0.4 % 0-[address] [address] Immature Granulocyte % (Auto) 2022 8:10pm 0.2 % 0-[address] [address] Neutrophils # (Auto) January 29, 2021 9:57pm 3.37 1000/mm3 1.4-6.5 [facility] [address] [address] Neutrophils # (Auto) March 16, 2021 5:34pm 3.82 1000/mm3 1.4-6.5 [facility] [address] [address] Neutrophils # (Auto) March 18, 2021 7:56pm 3.04 1000/mm3 1.4-6.5 [facility] [address] [address] Neutrophils # (Auto) March 20, 2021 4:37pm 3.16 1000/mm3 1.4-6.5 [facility] [address] [address] Neutrophils # (Auto) August 07, 2021 1:30pm 3.35 1000/mm3 1.4-6.5 [facility] [address] [address] Neutrophils # (Auto) August 10, 2021 3:14pm 2.81 1000/mm3 1.4-6.5 [facility] [address] [address] Neutrophils # (Auto) November 10, 2021 1:00pm 3.33 1000/mm3 1.4-6.5 [facility] [address] [address] Neutrophils # (Auto) 2022 8:10pm 3.14 1000/mm3 1.4-6.5 [facility] [address] [address] Lymphocytes # (Auto) January 29, 2021 9:57pm 1.91 1000/mm3 1.2-3.4 [facility] [address] [address] Lymphocytes # (Auto) March 16, 2021 5:34pm 1.63 1000/mm3 1.2-3.4 [facility] [address] [address] Lymphocytes # (Auto) March 18, 2021 7:56pm 1.60 1000/mm3 1.2-3.4 [facility] [address] [address] Lymphocytes # (Auto) March 20, 2021 4:37pm 1.29 1000/mm3 1.2-3.4 [facility] [address] [address] Lymphocytes # (Auto) August 07, 2021 1:30pm 1.20 1000/mm3 1.2-3.4 [facility] [address] [address] Lymphocytes # (Auto) August 10, 2021 3:14pm 1.56 1000/mm3 1.2-3.4 [facility] [address] [address] Lymphocytes # (Auto) November 10, 2021 1:00pm 1.15 1000/mm3 1.2-3.4 [facility] [address] [address] Lymphocytes # (Auto) 2022 8:10pm 1.70 1000/mm3 1.2-3.4 [facility] [address] [address] Monocytes # (Auto) January 29, 2021 9:57pm 0.38 1000/mm3 0.0-0.8 [facility] [address] [address] Monocytes # (Auto) March 16, 2021 5:34pm 0.42 1000/mm3 0.0-0.8 [facility] [address] [address] Monocytes # (Auto) March 18, 2021 7:56pm 0.38 1000/mm3 0.0-0.8 [facility] [address] [address] Monocytes # (Auto) March 20, 2021 4:37pm 0.29 1000/mm3 0.0-0.8 [facility] [address] [address] Monocytes # (Auto) August 07, 2021 1:30pm 0.29 1000/mm3 0.0-0.8 [facility] [address] [address] Monocytes # (Auto) August 10, 2021 3:14pm 0.32 1000/mm3 0.0-0.8 [facility] [address] [address] Monocytes # (Auto) November 10, 2021 1:00pm 0.23 1000/mm3 0.0-0.8 [facility] [address] [address] Monocytes # (Auto) 2022 8:10pm 0.41 1000/mm3 0.0-0.8 [facility] [address] [address] Eosinophils # (Auto) January 29, 2021 9:57pm 0.10 1000/mm3 0.0-0.7 [facility] [address] [address] Eosinophils # (Auto) March 16, 2021 5:34pm 0.16 1000/mm3 0.0-0.7 [facility] [address] [address] Eosinophils # (Auto) March 18, 2021 7:56pm 0.17 1000/mm3 0.0-0.7 [facility] [address] [address] Eosinophils # (Auto) March 20, 2021 4:37pm 0.14 1000/mm3 0.0-0.7 [facility] [address] [address] Eosinophils # (Auto) August 07, 2021 1:30pm 0.06 1000/mm3 0.0-0.7 [facility] [address] [address] Eosinophils # (Auto) August 10, 2021 3:14pm 0.10 1000/mm3 0.0-0.7 [facility] [address] [address] Eosinophils # (Auto) November 10, 2021 1:00pm 0.15 1000/mm3 0.0-0.7 [facility] [address] [address] Eosinophils # (Auto) 2022 8:10pm 0.09 1000/mm3 0.0-0.7 [facility] [address] [address] Basophils # (Auto) January 29, 2021 9:57pm 0.07 1000/mm3 0.0-0.1 [facility] [address] [address] Basophils # (Auto) March 16, 2021 5:34pm 0.07 1000/mm3 0.0-0.[address] [address] Basophils # (Auto) March 18, 2021 7:56pm 0.06 1000/mm3 0.0-0.1 [facility] [address] [address] Basophils # (Auto) March 20, 2021 4:37pm 0.05 1000/mm3 0.0-0.1 [facility] [address] [address] Basophils # (Auto) August 07, 2021 1:30pm 0.04 1000/mm3 0.0-0.1 [facility] [address] [address] Basophils # (Auto) August 10, 2021 3:14pm 0.03 1000/mm3 0.0-0.1 [facility] [address] [address] Basophils # (Auto) November 10, 2021 1:00pm 0.03 1000/mm3 0.0-0.1 [facility] [address] [address] Basophils # (Auto) 2022 8:10pm 0.06 1000/mm3 0.0-0.1 [facility] [address] [address] Absolute Immature Granulocyte (auto January 29, 2021 9:57pm 0.0 0-1 [facility] [address] [address] Absolute Immature Granulocyte (auto March 16, 2021 5:34pm 0.0 0-1 [facility] [address] [address] Absolute Immature Granulocyte (auto March 18, 2021 7:56pm 0.0 0-1 [facility] [address] [address] Absolute Immature Granulocyte (auto March 20, 2021 4:37pm 0.0 0-1 [facility] [address] [address] Absolute Immature Granulocyte (auto August 07, 2021 1:30pm 0.0 0-1 [facility] [address] [address] Absolute Immature Granulocyte (auto August 10, 2021 3:14pm 0.0 0-1 [facility] [address] [address] Absolute Immature Granulocyte (auto November 10, 2021 1:00pm 0.0 0-1 [facility] [address] [address] Absolute Immature Granulocyte (auto 2022 8:10pm 0.0 0-1 [facility] [address] [address] Differential Method January 29, 2021 9:57pm Automated [facility] [address] [address] Differential Method March 16, 2021 5:34pm Automated [facility] [address] [address] Differential Method March 18, 2021 7:56pm Automated [facility] [address] [address] Differential Method March 20, 2021 4:37pm Automated [facility] [address] [address] Differential Method August 07, 2021 1:30pm Automated [facility] [address] [address] Differential Method August 10, 2021 3:14pm Automated [facility] [address] [address] Differential Method November 10, 2021 1:00pm Automated [facility] [address] [address] Differential Method 2022 8:10pm Automated [facility] [address] [address] Urine RBC March 16, 2021 6:40pm Tntc /hpf 0-2 [facility] [address] [address] Urine RBC June 27, 2021 4:10pm 0-2 /hpf 0-2 [facility] [address] [address] Urine WBC March 16, 2021 6:40pm See comment /hpf 0-5 Microscopic field obscured by RBC. [facility] [address] [address] Urine WBC June 27, 2021 4:10pm None seen /hpf 0-5 [facility] [address] [address] Urine Squamous Epithelial Cells June 27, 2021 4:10pm 2+ /hpf [facility] [address] [address] Urine Bacteria March 16, 2021 6:40pm See comment /hpf NONE SEEN Microscopic field obscured by RBC. [facility] [address] [address] Urine Bacteria June 27, 2021 4:10pm 1+ /hpf NONE SEEN MA[facility] [address] [address] Urine Mucus June 27, 2021 4:10pm Present MAIN [facility] [address] [place] [address] Urine Culture Done March 16, 2021 6:40pm Yes URINE SPECIMEN CULTURED MA[facility] [address] [address] Urine Culture Done June 27, 2021 4:10pm No CULTURE NOT INDICATED. [facility] [address] [address] Sodium Level January 29, 2021 9:57pm 137 mmol/L 137-145 [facility] [address] [address] Sodium Level March 16, 2021 5:34pm 137 mmol/L 137-145 [facility] [address] [address] Sodium Level March 18, 2021 7:56pm 141 mmol/L 137-145 [facility] [address] [address] Sodium Level March 20, 2021 5:04pm 140 mmol/L 137-145 [facility] [address] [address] Sodium Level August 07, 2021 1:30pm 141 mmol/L 137-145 [facility] [address] [address] Sodium Level August 10, 2021 3:14pm 140 mmol/L 137-145 [facility] [address] [address] Sodium Level November 10, 2021 1:00pm 139 mmol/L 137-145 [facility] [address] [address] Sodium Level 2022 8:10pm 140 mmol/L 137-145 [facility] [address] [address] Potassium Level January 29, 2021 9:57pm 3.5 mmol/L 3.6-5.0 [facility] [address] [address] Potassium Level March 16, 2021 5:34pm 4.0 mmol/L 3.6-5.0 [facility] [address] [address] Potassium Level March 18, 2021 7:56pm 3.4 mmol/L 3.6-5.0 MAIN LAB [address] [place] [address] Potassium Level March 20, 2021 5:04pm 3.8 mmol/L 3.6-5.0 MAIN LAB [facility] [address] [facility] [address] Potassium Level August 07, 2021 1:30pm 4.3 mmol/L 3.6-5.0 MAIN [facility] [address] [facility] [address] Potassium Level August 10, 2021 3:14pm 4.0 mmol/L 3.6-5.0 [facility] [address] [address] Potassium Level November 10, 2021 1:00pm 4.2 mmol/L 3.6-5.0 [facility] [address] [address] Potassium Level 2022 8:10pm 3.7 mmol/L 3.6-5.0 [facility] [address] [address] Chloride Level January 29, 2021 9:57pm 99 mmol/L 98-107 [facility] [address] [address] Chloride Level March 16, 2021 5:34pm 102 mmol/L 98-107 [facility] [address] [address] Chloride Level March 18, 2021 7:56pm 102 mmol/L 98-107 [facility] [address] [address] Chloride Level March 20, 2021 5:04pm 103 mmol/L 98-107 [facility] [address] [address] Chloride Level August 07, 2021 1:30pm 105 mmol/L 98-107 [facility] [address] [address] Chloride Level August 10, 2021 3:14pm 103 mmol/L 98-107 [facility] [address] [address] Chloride Level November 10, 2021 1:00pm 104 mmol/L 98-107 [facility] [address] [address] Chloride Level 2022 8:10pm 102 mmol/L 98-107 MAIN LAB [facility] [address] [facility] [address] Carbon Dioxide Level January 29, 2021 9:57pm 27 mmol/L 22-30 [facility] [address] [facility] [address] Carbon Dioxide Level March 16, 2021 5:34pm 28 mmol/L 22-30 [facility] [address] [address] Carbon Dioxide Level March 18, 2021 7:56pm 29 mmol/L 22-30 [facility] [address] [address] Carbon Dioxide Level March 20, 2021 5:04pm 27 mmol/L 22-30 [facility] [address] [address] Carbon Dioxide Level August 07, 2021 1:30pm 24 mmol/L 22-30 [facility] [address] [address] Carbon Dioxide Level August 10, 2021 3:14pm 26 mmol/L 22-30 [facility] [address] [address] Carbon Dioxide Level November 10, 2021 1:00pm 24 mmol/L 22-30 [facility] [address] [address] Carbon Dioxide Level 2022 8:10pm 30 mmol/L 22-30 [facility] [address] [address] Anion Gap January 29, 2021 9:57pm 11 7-16 [facility] [address] [address] Anion Gap March 16, 2021 5:34pm 7 7-16 MAIN [facility] [address] [facility] [address] Anion Gap March 18, 2021 7:56pm 10 7-16 MA[facility] [address] [facility] [address] Anion Gap March 20, 2021 5:04pm 10 7-16 MAIN [facility] [address] [facility] [address] Anion Gap August 07, 2021 1:30pm 12 7-16 MA[facility] [address] [place] [address] Anion Gap August 10, 2021 3:14pm 11 7-16 MAIN [facility] [address] [facility] [address] Anion Gap November 10, 2021 1:00pm 11 7-16 MAIN [facility] [address] [facility] [address] Anion Gap 2022 8:10pm 8 7- MAIN [facility] [address] [facility] [address] Blood Urea Nitrogen January 29, 2021 9:57pm 13 mg/dL 7- MAIN [facility] [address] [facility] [address] Blood Urea Nitrogen March 16, 2021 5:34pm 10 mg/dL 7-17 MAIN [facility] [address] [facility] [address] Blood Urea Nitrogen March 18, 2021 7:56pm 10 mg/dL 7-17 MA[facility] [address] [facility] [address] Blood Urea Nitrogen March 20, 2021 5:04pm 5 mg/dL 7-17 [facility] [address] [address] Blood Urea Nitrogen August 07, 2021 1:30pm 14 mg/dL 7-17 [facility] [address] [address] Blood Urea Nitrogen August 10, 2021 3:14pm 7 mg/dL 7-17 MA[facility] [address] [facility] [address] Blood Urea Nitrogen November 10, 2021 1:00pm 7 mg/dL 7-17 MA[facility] [address] [facility] [address] Blood Urea Nitrogen 2022 8:10pm 8 mg/dL 7-17 MA[facility] [address] [address] Creatinine January 29, 2021 9:57pm 0.84 mg/dL 0.52-1.04 MAIN [facility] [address] [facility] [address] Creatinine March 16, 2021 5:34pm 0.62 mg/dL 0.52-1.04 MAIN [facility] [address] [address] Creatinine March 18, 2021 7:56pm 0.66 mg/dL 0.52-1.04 MAIN [facility] [address] [facility] [address] Creatinine March 20, 2021 5:04pm 0.59 mg/dL 0.52-1.04 MAIN [facility] [address] [address] Creatinine August 07, 2021 1:30pm 0.65 mg/dL 0.52-1.04 MA[facility] [address] [address] Creatinine August 10, 2021 3:14pm 0.60 mg/dL 0.52-1.04 MA[facility] [address] [address] Creatinine November 10, 2021 1:00pm 0.76 mg/dL 0.52-1.04 MA[facility] [address] [address] Creatinine 2022 8:10pm 0.66 mg/dL 0.52-1.04 MA[facility] [address] [address] Glomerular Filtration Rate Calc January 29, 2021 9:57pm > 60 mL/min >60.[address] [address] Glomerular Filtration Rate Calc March 16, 2021 5:34pm > 60 mL/min >60.[address] [address] Glomerular Filtration Rate Calc March 18, 2021 7:56pm > 60 mL/min >60.0 MA[facility] [address] [address] Glomerular Filtration Rate Calc March 20, 2021 5:04pm > 60 mL/min >60.0 MA[facility] [address] [address] Glomerular Filtration Rate Calc August 07, 2021 1:30pm > 60 mL/min >60.0 MA[facility] [address] [address] Glomerular Filtration Rate Calc August 10, 2021 3:14pm > 60 mL/min >60.0 MAIN [facility] [address] [facility] [address] Glomerular Filtration Rate Calc November 10, 2021 1:00pm > 60 mL/min >60.0 MAIN [facility] [address] [facility] [address] Glomerular Filtration Rate Calc 2022 8:10pm > 60 mL/min >60.0 MAIN [facility] [address] [facility] [address] Glucose Level January 29, 2021 9:57pm 92 mg/dL 70-100 MAIN [facility] [address] [facility] [address] Glucose Level March 16, 2021 5:34pm 90 mg/dL 70-100 [facility] [address] [address] Glucose Level March 18, 2021 7:56pm 84 mg/dL 70-100 [facility] [address] [address] Glucose Level March 20, 2021 5:04pm 91 mg/dL 70-100 [facility] [address] [address] Glucose Level August 07, 2021 1:30pm 100 mg/dL 70-100 [facility] [address] [address] Glucose Level August 10, 2021 3:14pm 85 mg/dL 70-100 [facility] [address] [address] Glucose Level November 10, 2021 1:00pm 95 mg/dL 70-100 [facility] [address] [address] Glucose Level 2022 8:10pm 97 mg/dL 70-100 [facility] [address] [address] Calcium Level January 29, 2021 9:57pm 9.8 mg/dL 8.4-10.2 MAIN LAB [facility] [address] [facility] [address] Calcium Level March 16, 2021 5:34pm 9.5 mg/dL 8.4-10.2 MAIN [facility] [address] [address] Calcium Level March 18, 2021 7:56pm 9.3 mg/dL 8.4-10.2 MAIN LAB [facility] [address] [facility] [address] Calcium Level March 20, 2021 5:04pm 9.4 mg/dL 8.4-10.2 MAIN LAB [facility] [address] [facility] [address] Calcium Level August 07, 2021 1:30pm 9.8 mg/dL 8.4-10.2 MAIN LAB [facility] [address] [facility] [address] Calcium Level August 10, 2021 3:14pm 9.2 mg/dL 8.4-10.2 MAIN [facility] [address] [address] Calcium Level November 10, 2021 1:00pm 9.6 mg/dL 8.4-10.2 MA[facility] [address] [address] Calcium Level 2022 8:10pm 9.2 mg/dL 8.4-10.2 MA[facility] [address] [address] Calcium Adjusted for Albumin March 16, 2021 5:34pm 9.4 mg/dL 8.4-10.2 MA[facility] [address] [address] Calcium Adjusted for Albumin March 18, 2021 7:56pm 9.1 mg/dL 8.4-10.2 [facility] [address] [address] Calcium Adjusted for Albumin August 07, 2021 1:30pm 9.2 mg/dL 8.4-10.2 MAIN [facility] [address] [address] Total Bilirubin March 16, 2021 5:34pm 0.4 mg/dL 0.2-1.3 MAIN [facility] [address] [address] Total Bilirubin March 18, 2021 7:56pm 0.4 mg/dL 0.2-1.3 MA[facility] [address] [address] Total Bilirubin August 07, 2021 1:30pm 0.6 mg/dL 0.2-1.3 MAIN [facility] [address] [address] Aspartate Amino Transf (AST/SGOT) March 16, 2021 5:34pm 36 U/L 14-36 MA[facility] [address] [address] Aspartate Amino Transf (AST/SGOT) March 18, 2021 7:56pm 37 U/L 14-36 MAIN [facility] [address] [address] Aspartate Amino Transf (AST/SGOT) August 07, 2021 1:30pm 48 U/L 14-36 [facility] [address] [address] Alanine Aminotransferase (ALT/SGPT) March 16, 2021 5:34pm 17 U/L <35 As of 09/13/19, the Reference Range for ALT/SGPT for adult patients has been updated. The Reference Range for ALT/SGPT has not been established for patients <18 years of age. MAIN [facility] [address] [address] Alanine Aminotransferase (ALT/SGPT) March 18, 2021 7:56pm 19 U/L <35 As of 09/13/19, the Reference Range for ALT/SGPT for adult patients has been updated. The Reference Range for ALT/SGPT has not been established for patients <18 years of age. MAIN [facility] [address] [address] Alanine Aminotransferase (ALT/SGPT) August 07, 2021 1:30pm 36 U/L <35 As of 09/13/19, the Reference Range for ALT/SGPT for adult patients has been updated. The Reference Range for ALT/SGPT has not been established for patients <18 years of age. MAIN [facility] [address] [address] Lactic Acid Level March 18, 2021 7:56pm 1.0 mmol/L 0.7-2.1 [facility] [address] [address] Total Protein March 16, 2021 5:34pm 7.2 g/dL 6.3-8.2 [facility] [address] [address] Total Protein March 18, 2021 7:56pm 7.6 g/dL 6.3-8.2 MAIN [facility] [address] [address] Total Protein August 07, 2021 1:30pm 8.3 g/dL 6.3-8.2 MAIN [facility] [address] [address] Albumin March 16, 2021 5:34pm 4.4 g/dL 3.5-5.0 MA[facility] [address] [address] Albumin March 18, 2021 7:56pm 4.6 g/dL 3.5-5.0 MAIN [facility] [address] [address] Albumin August 07, 2021 1:30pm 5.0 g/dL 3.5-5.0 MAIN [facility] [address] [address] Alkaline Phosphatase March 16, 2021 5:34pm 45 U/L 38-126 [facility] [address] [address] Alkaline Phosphatase March 18, 2021 7:56pm 47 U/L 38-126 [facility] [address] [address] Alkaline Phosphatase August 07, 2021 1:30pm 58 U/L 38-126 [facility] [address] [address] Lipase August 07, 2021 1:30pm 64 U/L 23-300 [facility] [address] [address] Microbiology Results Procedure Source Result Collection Date/Time Result Date/Time Result Comment Performing Site Blood Culture Blood, Left Antecubital NO GROWTH AFTER 5 DAYS March 24, 2021 7:15am MAIN [facility] [address] [address] Urine Culture Ur,Clean Catch March 18, 2021 10:45am MAIN LAB [address] [address] Gram Stain Umbilicus March 17, 2021 8:17am MAIN [facility] [address] [address] Routine Culture Umbilicus Staphylococcus Aureus-Mrsa March 20, 2021 8:34am MAIN LAB [address] [address] Diagnostic Imaging Reports Report Dictated Date/Time Dictated By Status Radiology Report March 16, 2021 8:09pm Tiburcio Heaton MD completed [facility] CAT SCAN REPORT PATIENT NAME: EUDARDO PAYAN [id number] DATE OF : 2000 ATTENDING/ER [...] had a laporoscopy compelted on 03/05/21, at [facility] in [place]. States she is having sharp cramping stabbing [...] Reference Range Collection Date/Time Weight 90.71 kg January 21, 2021 3:08pm [...] 2021 11:00pm Weight 92.98 kg March 16, 2 021 3:55pm Body Temperature 99.0 [degF] 97.6-99.6 [...] 2 021 5:00pm Respiratory rate 17 /min 12-March 5:00pm Oxygen saturation by Pulse oximetry 100 [...] 2021 12:08pm Heart Rate 112 /min 60-100 March 26th, 202 2 5:10pm Respiratory rate 20 /min 12-August 07, 2021 12:08pm Oxygen saturation by Pulse [...] 2021 7:21pm Respiratory rate 18 /min -September 23, 2 022 7:21pm Oxygen saturation by [...] 10, 2021 5:51pm Respiratory rate 18 /min 12-November 10, 2021 5:51pm Oxygen saturation by Pulse [...] Diastolic 53 mm[Hg] 50-85 January 10 9:52pm Advance Directives Advance Directive Response Recorded Date/ Time Does patient have an Advance Directive? No 2022 7:29pm Does patient have a COLST form? No 2022 7:29pm Insurance Providers Guarantor EDUARDO PAYAN Address [address] [place] [address] Contact Info. Home Phone: Payer Policy Id Coverage Id Subscriber's Name Subscriber Id Effective Date Expiration Date [facility] [id number] EDUARDO PAYAN [id number] SELF PAY Self N/A Encounters Encounter Location(s) Arrival/Admit Date Discharge/Depart Date Provider(s) Departed Emergency [facility] January 21, 2021 2:24pm January [...] 2021 3:30pm June 27, 2021 5:01pm null [facility]Emergency Department August 07, 2021 11:58am August 07, 2021 5:15pm null [facility] August 10, 2021 2:19pm August 10, 2021 5:11pm [facility], 2021 5:22pm August 26, 2021 7:15pm [facility] September 23, 2021 3:02pm September 23, 2021 7:35pm null [facility]Emergency Department November 10, 2021 11:22am November 10, 2021 5:45pm null [facility]Emergency Department 2022 5:23pm 2022 9:55pm null Functional Status Observation Response Date Recorded Living Situation Home January 10 6:11pm Mental Status Observation Response Date Recorded Comprehension Ability Understands Concepts [facility] 2020 9:35pm Mood/Behavior Anxious January 29, 2021 9:35pm Speech Appropriate September 23, 2021 3 :50pm Comprehension Ability Understands Concepts [facility] 2020 8:30pm Speech Appropriate March 18 8:30pm Clear March 18 8:30pm Mood/Behavior Appropriate March 18 8:30pm Plan of Treatment Future Tests Future scheduled test information is unavailable Pending Tests Pending diagnostic test information is unavailable Future Visits Future appointment information is unavailable Referrals to Other Providers Reason for Referral Referral Start Date Provider Provider Contact Information Provider Address [facility] Work Phone: [facility] [address] [facility] [address] [place] Emely holloway MD Work Phone: [facility] [employer] [address] [place] [phone] Chavez and will see for US [facility] Work Phone: [address] [facility] [phone] No Pcp Mahad Chavez MD Work Phone: [facility] [employer] [address] [place] [phone] No Pcp [facility] Work Phone: [address] [facility] [phone] No Pcp Emely holloway MD Work Phone: [facility] [employer] [address] [place] [phone] Out Town [facility] Gynecology [facility] Oncology Work Phone: [address] [place] [address] Pav[place] Level [facility] [address] Out Town [facility] Work Phone: [address] [facility] [phone] No Pcp Future Procedures Future procedure information is unavailable Future Medications Future medication information is unavailable Patient Instructions Ovarian Cyst (DC) Ovarian Cyst (DC) Diarrhea and Travelers[employer] Diar rodriguez, Adult (DC) Pelvic Pain (DC) Nausea and Vomiting After Surgery Constipation, Adult (DC) Diarrhea and Travel[employer] Di[employer] rodriguez, Adult (DC) Nausea and Vomiting, Adult (DC) Pelvic Pain (DC) Endometriosis (DC) Abdominal Pain, Adult ED Chronic Pelvic Pain (DC) Hospital Discharge Instructions
--- OUTSIDE RECORDS SUMMARY | 2022-11-20 17:48 | XMS_ITS | Continuity of Care Document ---
Author Name Unknown Address [address] [place] [address] Phone [facility] Address [address] [place] [address] Phone Care Team Providers Care Sole Stitcher Hand Name Role Phone Out of Town, Provider Primary Care Provider MD Praveen Armstrong Emergency Provider [phone] KIRA Garcia Emergency Provider MD Yolanda Dial Emergency Provider [phone] MD Pierce Cowan Emergency Provider PCP, of Choice Primary Care Provider MD Konstantin Donis Emergency Provider [phone] Tae Quiroz Emergency Provider MD Sen Segovia Emergency Provider Chief Complaint and Reason for Visit Chief Complaint PELVIC PAIN RIGHT SIDE PAIN 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 POST OP CONCERN POST OP CONCERN, BLEEDING PELVIC PAIN HEAVY VAG BLEEDING VAG BLEEDING Allergies, Adverse Reactions, Alerts Allergen Type Severity Reaction Last Updated Verified Status droperidol Allergy anaphylactic shock Novemb er 2021 1:47pm Yes Active haloperidol Allergy rash March 19, 2022 1:47pm Yes Active ibuprofen Allergy March 19, 2022 1:47pm Yes Active ketorolac Allergy anaphylaxis March 19, 2022 1:47pm Yes Active latex Allergy rash March 19, 2022 1:47pm Yes Active Penicillins Allergy hives March 19, 2022 1:47pm Yes Active prochlorperazine Allergy hives March 19, 2022 1:47pm Yes Active Social History Smoking Status Status Start Date End Date Date of Observa tion Never smoked tobacco (finding) April 06, 2022 11:18am Observation Status Observation Response Date of Response Alcohol Use Yes April 06 11:18am alcohol intake frequency a few times a month Nov ember 2021 11:18am Alcohol type hard liquor April 06 11:18am Substance/Street Drug Use Yes Novemb er 2021 11:18am Substance Use Treatment No April 06, 2022 11:18am substance use type marijuana March 11:18am Smoking Status Never smoker April 06 11:18am Additional Data Assigned Sex Female Problems Active Problems Medical Problem Onset Date Status Abnormal vaginal bleeding Active Inactive/Resolved Problems Medical Problem Onset Date Status Abdominal pain, RLQ Resolved Dysfunctional uterine bleeding R esolved Ovarian [...] Sertraline Active 100 MG PO DAILY October 13, 2020 11:00pm Docusate Sodium Disconti nued 50 MG PO TWICE A DAY October 13, 2020 11:00pm August 07, 2021 11:12a m Trazodone Active 100 MG PO BEDTIME October 13, 2020 11:00pm Hydroxyzine Hcl Active 100 MG PO BEDTIME October 13, 2020 11:00pm Ferrous Sulfate Disconti nued 325 MG PO DAILY October 14, 2020 11:00pm Novemb er 2020 4:42pm Hydrocodone-A cetaminophen Disconti nued TABLET December 28, 2020 11:00pm January 07, 2021 4:04pm Cefdinir Disconti nued 300 MG PO TWICE A DAY 20 Septemb er 2020 11:00pm 2020 8:07pm Tramadol Disconti nued 50 MG PO Q8H 10 2020 11:00pm 2020 8:06pm Montelukast Active 10 MG PO DAILY 2021 12:00am Omeprazole Disconti nued 20 MG PO DAILY 2021 12:00am August 07, 2021 11:12a m Cephalexin Disconti nued 500 MG PO FOUR TIMES DAILY 2021 12:00am August 07, 2021 11:12a m Tramadol (Ultram) 50 mg Tablet Disconti nued 50 MG PO Q6H 2021 12:00am August 07, 2021 11:12a m Omeprazole Active 20 MG PO DAILY September 22, 2021 11:00pm Norethindrone Acetate Active 5 MG PO DAILY January 09, 2022 11:00pm Gabapentin Active 300 MG PO BEDTIME 2020 11:00pm Hydrocodone-A cetaminophen Disconti nued 1 TAB PO Q6H January 02, 2021 January 07, 2021 4:04pm Ondansetron Disconti nued 4 MG PO Q6H January 01, 2021 11:00pm August 07, 2021 11:12a m Famotidine-Ca Carb-Mag Hydrox (Pepcid Complete) 10-800-165 mg tablet,chewab le Disconti nued 1 TAB PO DAILY January 07, 2021 11:00pm 2020 8:07pm Dicyclomine Disconti nued 10 MG PO .q6 prn January 07, 2021 11:00pm 2020 2:08pm Oxycodone Disconti nued MG CAPSULE Fidel mcneil 2020 11:00pm Februa ry 2021 2:37pm Fluticasone Propion-Salme terol (Advair Hfa) 115-21 mcg/actuation HFA aerosol inhaler Active 2 INH INH DAILY Fidel mcneil 2020 11:00pm Ondansetron Hcl (Zofran) 4 mg tablet Disconti nued 4 MG PO Q8H 12 4 Novembe r 2020 11:00pm Novemb er 2020 12:01a m Sulfamethoxaz ole-Trimethop rim (Bactrim Ds) 800-160 mg tablet Disconti nued 1 TAB PO TWICE A DAY 14 Novembe r 2020 11:00pm Novemb er 2020 12:25p m Tizanidine Disconti nued 4 MG PO As Directed August 06, 2021 11:00pm November 10, 2021 11:18a m Ondansetron Active 4 - 8 MG PO Q8H 8 August 06, 2021 11:00pm Tranexamic Acid Active MG PO r 2021 11:00pm Procedures Procedure Date Performed Status ED US Abdominal Limited August 10, 2021 3:34pm completed CT Abd Pel w/ Contrast August 07, 2021 11:50am completed Relevant Diagnostic Tests and/or Laboratory Data Laboratory Results Test Date/Time Result Interpretation Reference Range Result Comment Performing Site White Blood Count August 07, 2021 12:30pm 4.95 1000/mm3 4.8-10.8 [facility] [address] [address] White Blood Count August 10, 2021 2:14pm 4.83 1000/mm3 4.8-10.8 MAIN [facility] [address] [address] White Blood Count November 10, 2021 12:00pm 4.91 1000/mm3 4.8-10.8 [facility] [id number] [address] [address] White Blood Count 2022 7:10pm 5.41 1000/mm3 4.8-10.8 MA[facility] LAB [id number] [address] [address] White Blood Count April 06, 2022 10:27am 3.71 1000/mm3 4.8-10.8 MA[facility] [id number] [address] [address] Red Blood Count August 07, 2021 12:30pm 4.43 M/mm3 4.20-5.40 MAIN LAB [address] [address] Red Blood Count August 10, 2021 2:14pm 3.83 M/mm3 4.20-5.40 MAIN LAB [address] [address] Red Blood Count November 10, 2021 12:00pm 3.22 M/mm3 4.20-5.40 MAIN LAB [id number] [address] [address] Red Blood Count 2022 7:10pm 4.00 M/mm3 4.20-5.40 MAIN LAB [id number] [address] [address] Red Blood Count April 06, 2022 10:27am 3.66 M/mm3 4.20-5.40 MAIN LAB [id number] [address] [address] Hemoglobin August 07, 2021 12:30pm 11.4 g/dL 12.0-16.0 MAIN [facility] [address] [address] Hemoglobin August 10, 2021 2:14pm 9.9 g/dL 12.0-16.0 MAIN [facility] [address] [address] Hemoglobin November 10, 2021 12:00pm 8.4 g/dL 12.0-16.0 MAIN [facility] [id number] [address] [address] Hemoglobin 2022 7:10pm 8.6 g/dL 12.0-16.0 MAIN LAB [id number] [address] [address] Hemoglobin April 06, 2022 10:27am 8.5 g/dL 12.0-16.0 MAIN LAB [id number] [address] [address] Hematocrit August 07, 2021 12:30pm 36.4 % 37-47 MAIN LAB [address] [address] Hematocrit August 10, 2021 2:14pm 31.6 % 37-47 MAIN LAB [address] [place] [address] Hematocrit November 10, 2021 12:00pm 26.8 % 37-47 MAIN LAB [id number] [facility] [address] [facility] [place] [address] Hematocrit 2022 7:10pm 29.3 % 37-47 MAIN LAB [id number] [address] [address] Hematocrit April 06, 2022 10:27am 27.6 % 37-47 MAIN LAB [id number] [address] [address] Mean Corpuscular Volume August 07, 2021 12:30pm 82.2 fL 81.0-99.0 MAIN LAB [address] [address] Mean Corpuscular Volume August 10, 2021 2:14pm 82.5 fL 81.0-99.0 MAIN LAB [address] [address] Mean Corpuscular Volume November 10, 2021 12:00pm 83.2 fL 81.0-99.0 MAIN LAB [id number] [address] [address] Mean Corpuscular Volume 2022 7:10pm 73.3 fL 81.0-99.0 MAIN LAB [id number] [address] [address] Mean Corpuscular Volume April 06, 2022 10:27am 75.4 fL 81.0-99.0 MAIN [facility] [id number] [address] [address] Mean Corpuscular Hemoglobin August 07, 2021 12:30pm 25.7 pg 27-31 MAIN LAB [address] [address] Mean Corpuscular Hemoglobin August 10, 2021 2:14pm 25.8 pg 27-31 MAIN [facility] [address] [address] Mean Corpuscular Hemoglobin November 10, 2021 12:00pm 26.1 pg 27-31 MAIN LAB [id number] [address] [address] Mean Corpuscular Hemoglobin 2022 7:10pm 21.5 pg 27-31 MAIN [facility] [id number] [address] [address] Mean Corpuscular Hemoglobin April 06, 2022 10:27am 23.2 pg 27-31 MAIN [facility] [id number] [address] [address] Mean Corpuscular Hemoglobin Concent August 07, 2021 12:30pm 31.3 g/dL 33-37 MAIN LAB [address] [address] Mean Corpuscular Hemoglobin Concent August 10, 2021 2:14pm 31.3 g/dL 33-37 MAIN LAB [address] [address] Mean Corpuscular Hemoglobin Concent November 10, 2021 12:00pm 31.3 g/dL 33-37 MAIN LAB [id number] [address] [address] Mean Corpuscular Hemoglobin Concent 2022 7:10pm 29.4 g/dL 33-37 MAIN LAB [id number] [address] [address] Mean Corpuscular Hemoglobin Concent April 06, 2022 10:27am 30.8 g/dL 33-37 MAIN LAB [id number] [address] [address] Red Cell Distribution Width August 07, 2021 12:30pm 14.0 % 11.5-14.5 MAIN [facility] [address] [address] Red Cell Distribution Width August 10, 2021 2:14pm 14.0 % 11.5-14.5 MAIN [facility] [address] [address] Red Cell Distribution Width November 10, 2021 12:00pm 14.4 % 11.5-14.5 MAIN LAB [id number] [address] [address] Red Cell Distribution Width 2022 7:10pm 15.2 % 11.5-14.5 MAIN LAB [id number] [address] [address] Red Cell Distribution Width April 06, 2022 10:27am 16.4 % 11.5-14.5 MAIN LAB [id number] [address] [address] Platelet Count August 07, 2021 12:30pm 207 1000/mm3 140-440 MAIN LAB [address] [address] Platelet Count August 10, 2021 2:14pm 189 1000/mm3 140-440 MAIN LAB [address] [address] Platelet Count November 10, 2021 12:00pm 282 1000/mm3 140-440 MAIN LAB [id number] [address] [address] Platelet Count 2022 7:10pm 217 1000/mm3 140-440 MAIN LAB [id number] [address] [address] Platelet Count April 06, 2022 10:27am 174 1000/mm3 140-440 MAIN LAB [id number] [address] [address] Mean Platelet Volume August 07, 2021 12:30pm 11.0 fL 7.4-10.4 MAIN LAB [address] [address] Mean Platelet Volume August 10, 2021 2:14pm 10.7 fL 7.4-10.4 MAIN LAB [address] [address] Mean Platelet Volume November 10, 2021 12:00pm 10.5 fL 7.4-10.4 MAIN LAB [id number] [address] [address] Mean Platelet Volume 2022 7:10pm 12.9 fL 7.4-10.4 MAIN LAB [id number] [address] [address] Neutrophils (%) (Auto) August 07, 2021 12:30pm 67.7 % 40.0-72.0 MAIN LAB [address] [address] Neutrophils (%) (Auto) August 10, 2021 2:14pm 58.2 % 40.0-72.0 MAIN LAB [address] [address] Neutrophils (%) (Auto) November 10, 2021 12:00pm 67.8 % 40.0-72.0 MAIN LAB [id number] [address] [address] Neutrophils (%) (Auto) 2022 7:10pm 58.0 % 40.0-72.0 MAIN LAB [id number] [address] [address] Neutrophils (%) (Auto) April 06, 2022 10:27am 55.7 % 40.0-72.0 MAIN LAB [id number] [address] [address] Lymphocytes (%) (Auto) August 07, 2021 12:30pm 24.2 % 17-45 MAIN LAB [address] [address] Lymphocytes (%) (Auto) August 10, 2021 2:14pm 32.3 % 17-45 MAIN LAB [address] [address] Lymphocytes (%) (Auto) November 10, 2021 12:00pm 23.4 % 17-45 MAIN LAB [id number] [address] [address] Lymphocytes (%) (Auto) 2022 7:10pm 31.4 % 17-45 MAIN LAB [id number] [address] [address] Lymphocytes (%) (Auto) April 06, 2022 10:27am 34.0 % 17-45 MAIN LAB [id number] [address] [address] Monocytes (%) (Auto) August 07, 2021 12:30pm 5.9 % 3-11 MAIN LAB [address] [address] Monocytes (%) (Auto) August 10, 2021 2:14pm 6.6 % 3-11 MAIN LAB [address] [address] Monocytes (%) (Auto) November 10, 2021 12:00pm 4.7 % 3-11 MAIN LAB [id number] [address] [address] Monocytes (%) (Auto) 2022 7:10pm 7.6 % 3-11 MAIN LAB [id number] [address] [address] Monocytes (%) (Auto) April 06, 2022 10:27am 6.5 % 3-11 MAIN LAB [id number] [address] [address] Eosinophils (%) (Auto) August 07, 2021 12:30pm 1.2 % 0-3 MAIN LAB [address] [address] Eosinophils (%) (Auto) August 10, 2021 2:14pm 2.1 % 0-3 MAIN LAB [address] [address] Eosinophils (%) (Auto) November 10, 2021 12:00pm 3.1 % 0-3 MAIN LAB [id number] [address] [address] Eosinophils (%) (Auto) 2022 7:10pm 1.7 % 0-3 MAIN LAB [id number] [address] [address] Eosinophils (%) (Auto) April 06, 2022 10:27am 2.4 % 0-3 MAIN LAB [id number] [address] [address] Basophils (%) (Auto) August 07, 2021 12:30pm 0.8 % 0-1 MAIN LAB [address] [address] Basophils (%) (Auto) August 10, 2021 2:14pm 0.6 % 0-1 MAIN LAB [address] [address] Basophils (%) (Auto) November 10, 2021 12:00pm 0.6 % 0-1 MAIN LAB [id number] [address] [address] Basophils (%) (Auto) 2022 7:10pm 1.1 % 0-1 MAIN LAB [id number] [address] [address] Basophils (%) (Auto) April 06, 2022 10:27am 1.1 % 0-1 MAIN LAB [id number] [address] [address] Immature Granulocyte % (Auto) August 07, 2021 12:30pm 0.2 % 0-1 MAIN LAB [address] [address] Immature Granulocyte % (Auto) August 10, 2021 2:14pm 0.2 % 0-1 MAIN LAB [address] [address] Immature Granulocyte % (Auto) November 10, 2021 12:00pm 0.4 % 0-1 MAIN LAB [id number] [address] [address] Immature Granulocyte % (Auto) 2022 7:10pm 0.2 % 0-1 MAIN LAB [id number] [address] [address] Immature Granulocyte % (Auto) April 06, 2022 10:27am 0.3 % 0-1 MAIN LAB [id number] [address] [address] Neutrophils # (Auto) August 07, 2021 12:30pm 3.35 1000/mm3 1.4-6.5 MAIN LAB [address] [address] Neutrophils # (Auto) August 10, 2021 2:14pm 2.81 1000/mm3 1.4-6.5 MAIN LAB [address] [address] Neutrophils # (Auto) November 10, 2021 12:00pm 3.33 1000/mm3 1.4-6.5 MAIN LAB [id number] [address] [address] Neutrophils # (Auto) 2022 7:10pm 3.14 1000/mm3 1.4-6.5 MAIN LAB [id number] [address] [address] Neutrophils # (Auto) April 06, 2022 10:27am 2.07 1000/mm3 1.4-6.5 MAIN LAB [id number] [address] [address] Lymphocytes # (Auto) August 07, 2021 12:30pm 1.20 1000/mm3 1.2-3.4 MAIN LAB [address] [address] Lymphocytes # (Auto) August 10, 2021 2:14pm 1.56 1000/mm3 1.2-3.4 MAIN LAB [address] [address] Lymphocytes # (Auto) November 10, 2021 12:00pm 1.15 1000/mm3 1.2-3.4 MAIN LAB [id number] [address] [address] Lymphocytes # (Auto) 2022 7:10pm 1.70 1000/mm3 1.2-3.4 MAIN LAB [id number] [address] [address] Lymphocytes # (Auto) April 06, 2022 10:27am 1.26 1000/mm3 1.2-3.4 MAIN LAB [id number] [address] [address] Monocytes # (Auto) August 07, 2021 12:30pm 0.29 1000/mm3 0.0-0.8 MAIN LAB [address] [address] Monocytes # (Auto) August 10, 2021 2:14pm 0.32 1000/mm3 0.0-0.8 MAIN LAB [address] [address] Monocytes # (Auto) November 10, 2021 12:00pm 0.23 1000/mm3 0.0-0.8 MAIN LAB [id number] [address] [address] Monocytes # (Auto) 2022 7:10pm 0.41 1000/mm3 0.0-0.8 MAIN LAB [id number] [address] [address] Monocytes # (Auto) April 06, 2022 10:27am 0.24 1000/mm3 0.0-0.8 MAIN LAB [id number] [address] [address] Eosinophils # (Auto) August 07, 2021 12:30pm 0.06 1000/mm3 0.0-0.7 MAIN LAB [address] [address] Eosinophils # (Auto) August 10, 2021 2:14pm 0.10 1000/mm3 0.0-0.7 MAIN LAB [address] [address] Eosinophils # (Auto) November 10, 2021 12:00pm 0.15 1000/mm3 0.0-0.7 MAIN LAB [id number] [address] [address] Eosinophils # (Auto) 2022 7:10pm 0.09 1000/mm3 0.0-0.7 MAIN LAB [id number] [address] [address] Eosinophils # (Auto) April 06, 2022 10:27am 0.09 1000/mm3 0.0-0.7 MAIN LAB [id number] [address] [address] Basophils # (Auto) August 07, 2021 12:30pm 0.04 1000/mm3 0.0-0.1 MAIN LAB [address] [address] Basophils # (Auto) August 10, 2021 2:14pm 0.03 1000/mm3 0.0-0.1 MAIN LAB [address] [address] Basophils # (Auto) November 10, 2021 12:00pm 0.03 1000/mm3 0.0-0.1 MAIN LAB [id number] [address] [address] Basophils # (Auto) 2022 7:10pm 0.06 1000/mm3 0.0-0.1 MAIN LAB [id number] [address] [address] Basophils # (Auto) April 06, 2022 10:27am 0.04 1000/mm3 0.0-0.1 MAIN LAB [id number] [address] [address] Absolute Immature Granulocyte (auto August 07, 2021 12:30pm 0.0 0-1 MAIN LAB [address] [address] Absolute Immature Granulocyte (auto August 10, 2021 2:14pm 0.0 0-1 MAIN LAB [address] [address] Absolute Immature Granulocyte (auto November 10, 2021 12:00pm 0.0 0-1 MAIN LAB [id number] [address] [address] Absolute Immature Granulocyte (auto 2022 7:10pm 0.0 0-1 MAIN LAB [id number] [address] [address] Absolute Immature Granulocyte (auto April 06, 2022 10:27am 0.0 0-1 MAIN LAB [id number] [address] [address] Differential Method August 07, 2021 12:30pm Automated MAIN LAB [address] [address] Differential Method August 10, 2021 2:14pm Automated MAIN LAB [address] [address] Differential Method November 10, 2021 12:00pm Automated MAIN LAB [id number] [address] [address] Differential Method 2022 7:10pm Automated MAIN LAB [id number] [address] [address] Differential Method April 06, 2022 10:27am Automated MAIN [facility] [id number] [address] [place] [address] Urine RBC June 27, 2021 3:10pm 0-2 /hpf 0-2 MAIN LAB [address] [address] Urine WBC June 27, 2021 3:10pm None seen /hpf 0-5 MAIN LAB [address] [address] Urine Squamous Epithelial Cells June 27, 2021 3:10pm 2+ /hpf MAIN LAB [address] [address] Urine Bacteria June 27, 2021 3:10pm 1+ /hpf NONE SEEN MAIN LAB [address] [address] Urine Mucus June 27, 2021 3:10pm Present MAIN LAB [address] [address] Urine Culture Done June 27, 2021 3:10pm No CULTURE NOT INDICATED. MAIN LAB [address] [address] Serum Test, Qualitative April 06, 2022 10:27am Negative NEGATIVE MAIN LAB [id number] [address] [address] Sodium Level August 07, 2021 12:30pm 141 mmol/L 137-145 MAIN LAB [address] [address] Sodium Level August 10, 2021 2:14pm 140 mmol/L 137-145 MAIN LAB [address] [address] Sodium Level November 10, 2021 12:00pm 139 mmol/L 137-145 MAIN LAB [id number] [address] [address] Sodium Level 2022 7:10pm 140 mmol/L 137-145 MAIN LAB [id number] [address] [address] Sodium Level April 06, 2022 10:27am 142 mmol/L 137-145 MAIN LAB [id number] [address] [address] Potassium Level August 07, 2021 12:30pm 4.3 mmol/L 3.6-5.0 MAIN LAB [facility] [address] [facility] [place] [address] Potassium Level August 10, 2021 2:14pm 4.0 mmol/L 3.6-5.0 MAIN LAB [address] [address] Potassium Level November 10, 2021 12:00pm 4.2 mmol/L 3.6-5.0 MAIN LAB [id number] [address] [address] Potassium Level 2022 7:10pm 3.7 mmol/L 3.6-5.0 MAIN LAB [id number] [address] [address] Potassium Level April 06, 2022 10:27am 3.7 mmol/L 3.6-5.0 MAIN LAB [id number] [address] [address] Chloride Level August 07, 2021 12:30pm 105 mmol/L 98-107 MAIN LAB [address] [address] Chloride Level August 10, 2021 2:14pm 103 mmol/L 98-107 MAIN LAB [address] [address] Chloride Level November 10, 2021 12:00pm 104 mmol/L 98-107 MAIN LAB [id number] [address] [address] Chloride Level 2022 7:10pm 102 mmol/L 98-107 MAIN LAB [id number] [address] [address] Chloride Level April 06, 2022 10:27am 106 mmol/L 98-107 MAIN LAB [id number] [address] [address] Carbon Dioxide Level August 07, 2021 12:30pm 24 mmol/L 22-30 MAIN LAB [address] [address] Carbon Dioxide Level August 10, 2021 2:14pm 26 mmol/L 22-30 MAIN LAB [address] [address] Carbon Dioxide Level November 10, 2021 12:00pm 24 mmol/L 22-30 MAIN LAB [id number] [address] [address] Carbon Dioxide Level 2022 7:10pm 30 mmol/L 22-30 MAIN LAB [id number] [address] [address] Carbon Dioxide Level April 06, 2022 10:27am 27 mmol/L 22-30 MAIN LAB [id number] [address] [address] Anion Gap August 07, 2021 12:30pm 12 7-16 MAIN LAB [address] [address] Anion Gap August 10, 2021 2:14pm 11 7-16 MAIN LAB [address] [address] Anion Gap November 10, 2021 12:00pm 11 7-16 MAIN LAB [id number] [address] [address] Anion Gap 2022 7:10pm 8 7-16 MAIN LAB [id number] [address] [address] Anion Gap April 06, 2022 10:27am 9 7-16 MAIN LAB [id number] [address] [address] Blood Urea Nitrogen August 07, 2021 12:30pm 14 mg/dL 7-17 MAIN LAB [address] [address] Blood Urea Nitrogen August 10, 2021 2:14pm 7 mg/dL 7-17 MAIN LAB [address] [address] Blood Urea Nitrogen November 10, 2021 12:00pm 7 mg/dL 7-17 MAIN LAB [id number] [address] [address] Blood Urea Nitrogen 2022 7:10pm 8 mg/dL 7-17 MAIN LAB [id number] [address] [address] Blood Urea Nitrogen April 06, 2022 10:27am 10 mg/dL 7-17 MAIN LAB [id number] [address] [address] Creatinine August 07, 2021 12:30pm 0.65 mg/dL 0.52-1.04 MAIN LAB [address] [address] Creatinine August 10, 2021 2:14pm 0.60 mg/dL 0.52-1.04 MAIN LAB [address] [address] Creatinine November 10, 2021 12:00pm 0.76 mg/dL 0.52-1.04 MAIN LAB [id number] [address] [address] Creatinine 2022 7:10pm 0.66 mg/dL 0.52-1.04 MAIN LAB [id number] [address] [address] Creatinine April 06, 2022 10:27am 0.73 mg/dL 0.52-1.04 MAIN LAB [id number] [address] [address] Glomerular Filtration Rate Calc August 07, 2021 12:30pm > 60 mL/min >60.0 MAIN LAB [address] [address] Glomerular Filtration Rate Calc August 10, 2021 2:14pm > 60 mL/min >60.0 MAIN LAB [address] [address] Glomerular Filtration Rate Calc November 10, 2021 12:00pm > 60 mL/min >60.0 MAIN LAB [id number] [address] [address] Glomerular Filtration Rate Calc 2022 7:10pm > 60 mL/min >60.0 MAIN LAB [id number] [address] [address] Glomerular Filtration Rate Calc April 06, 2022 10:27am > 60 mL/min >60.0 MAIN LAB [id number] [address] [address] Glucose Level August 07, 2021 12:30pm 100 mg/dL 70-100 MAIN LAB [address] [address] Glucose Level August 10, 2021 2:14pm 85 mg/dL 70-100 MAIN LAB [facility] [address] [facility] [place] [address] Glucose Level November 10, 2021 12:00pm 95 mg/dL 70-100 MAIN LAB [id number] [address] [address] Glucose Level 2022 7:10pm 97 mg/dL 70-100 MAIN LAB [id number] [address] [address] Glucose Level April 06, 2022 10:27am 90 mg/dL 70-100 MAIN LAB [id number] [address] [address] Calcium Level August 07, 2021 12:30pm 9.8 mg/dL 8.4-10.2 MAIN LAB [address] [address] Calcium Level August 10, 2021 2:14pm 9.2 mg/dL 8.4-10.2 MAIN LAB [address] [address] Calcium Level November 10, 2021 12:00pm 9.6 mg/dL 8.4-10.2 MAIN LAB [id number] [address] [address] Calcium Level 2022 7:10pm 9.2 mg/dL 8.4-10.2 MAIN LAB [id number] [address] [address] Calcium Level April 06, 2022 10:27am 8.9 mg/dL 8.4-10.2 MAIN LAB [id number] [address] [address] Calcium Adjusted for Albumin August 07, 2021 12:30pm 9.2 mg/dL 8.4-10.2 MAIN LAB [address] [address] Calcium Adjusted for Albumin April 06, 2022 10:27am 8.7 mg/dL 8.4-10.2 MAIN LAB [id number] [address] [address] Total Bilirubin August 07, 2021 12:30pm 0.6 mg/dL 0.2-1.3 MAIN LAB [address] [address] Total Bilirubin April 06, 2022 10:27am 0.5 mg/dL 0.2-1.3 MAIN LAB [id number] [address] [address] Aspartate Amino Transf (AST/SGOT) August 07, 2021 12:30pm 48 U/L 14-36 MAIN LAB [address] [address] Aspartate Amino Transf (AST/SGOT) April 06, 2022 10:27am 46 U/L 14-36 MAIN LAB [id number] [address] [address] Alanine Aminotransferase (ALT/SGPT) August 07, 2021 12:30pm 36 U/L <35 As of 09/13/19, the Reference Range for ALT/SGPT for adult patients has been updated. The Reference Range for ALT/SGPT has not been established for patients <18 years of age. MAIN LAB [address] [address] Alanine Aminotransferase (ALT/SGPT) April 06, 2022 10:27am 35 U/L <35 MAIN LAB [id number] [address] [address] Total Protein August 07, 2021 12:30pm 8.3 g/dL 6.3-8.2 MAIN LAB [address] [address] Total Protein April 06, 2022 10:27am 7.4 g/dL 6.3-8.2 MAIN LAB [id number] [address] [address] Albumin August 07, 2021 12:30pm 5.0 g/dL 3.5-5.0 MAIN LAB [address] [address] Albumin April 06, 2022 10:27am 4.6 g/dL 3.5-5.0 MAIN LAB [id number] [address] [address] Alkaline Phosphatase August 07, 2021 12:30pm 58 U/L 38-126 MAIN LAB [address] [address] Alkaline Phosphatase April 06, 2022 10:27am 52 U/L 38-126 MAIN LAB [id number] [address] [address] Lipase August 07, 2021 12:30pm 64 U/L 23-300 MAIN LAB [address] [address] Lipase April 06, 2022 10:27am 37 U/L 23-300 MAIN LAB [id number] [address] [address] Diagnostic Imaging Reports Report Dictated Date/Time Dictated By Status Radiology Report August 07, 2021 4:03pm Yuli Jiang DO completed [facility] CAT SCAN REPORT PATIENT NAME: EDUARDO [...] Reading Result Reference Range Collection Date/Time Weight 86.18 kg June 27, 2021 2:33pm Body Temperature 98.2 [degF] 97.6-99.6 June 272021 2:33pm Heart Rate 75 /min 60-100 June 27, 2021 2:33pm Respiratory rate 18 /min 12-24 June 272021 2:33pm Oxygen saturation by Pulse oximetry 99 % 95-100 June 27, 2021 2:33pm BP Systolic 116 mm[Hg] 100-140 June 27, 2021 2:33pm BP Diastolic 70 mm[Hg] 50-85 June 27, 2021 2:33pm Height 65 [in_i] August 07 11:08am Weight 86.18 kg August 07 11:08am Body Temperature 98.6 [degF] 97.6-99.6 August 07, 2021 11:08am Heart Rate 112 /min 60-100 August 07 4:10pm Respiratory rate 20 /min -August 07, 2021 11:08am Oxygen saturation by Pulse oximetry 96 % 95-100 August 07, 2021 4:1 0pm BP Systolic 99 mm[Hg] 100-140 August 07 4:10pm BP Diastolic 65 mm[Hg] 50-85 August 07 4:10pm Weight 86.18 kg August 10 1:47pm Body Temperature 98.1 [degF] 97.6-99.6 August 10, 2021 1:47pm Heart Rate 76 /min 60-100 August 10 4:10pm Respiratory rate 18 /min -August 10, 2021 4:10pm Oxygen saturation by Pulse oximetry 98 % 95-100 August 10, 2021 4:1 0pm BP Systolic 124 mm[Hg] 100-140 August 10 4:10pm BP Diastolic 69 mm[Hg] 50-85 August 10 4:10pm Weight 86.18 kg August 26 4:37pm Body Temperature 97.8 [degF] 97.6-99.6 August 26, 2021 4:37pm Heart Rate 78 /min 60-100 August 26 4:37pm Respiratory rate 18 /min -August 26, 2021 4:37pm Oxygen saturation by Pulse oximetry 100 % 95-100 August 26, 2021 4:3 7pm BP Systolic 105 mm[Hg] 100-140 August 26 4:37pm BP Diastolic 61 mm[Hg] 50-85 August 26 4:37pm Weight 79.37 kg September 23, 2021 2:18pm Body Temperature 98.3 [degF] 97.6-99.6 September 23, 022 2:18pm Heart Rate 72 /min 60-100 September 23, 2021 6:21pm Respiratory rate 18 /min 12-24 September 23, 2 022 6:21pm Oxygen saturation by Pulse oximetry 100 % 95-100 September 23, 2021 6:21p m BP Systolic 105 mm[Hg] 100-140 September 23, 2021 6:21pm BP Diastolic 70 mm[Hg] 50-85 September 23, 2021 6:21pm Weight 77.11 kg November 10, 2021 10:44am Body Temperature 98.8 [degF] 97.6-99.6 November 10, 2021 10:44am Heart Rate 78 /min 60-100 November 10, 2021 4:51pm Respiratory rate 18 /min -November 10, 2021 4:51pm Oxygen saturation by Pulse oximetry 96 % 95-100 November 10, 2021 4:51 pm BP Systolic 102 mm[Hg] 100-140 November 10, 2021 4:51pm BP Diastolic 55 mm[Hg] 50-85 November 10, 2021 4:51pm Weight 79.37 kg January 10 5:06pm Body Temperature 98.0 [degF] 97.6-99.6 December 5:06pm Heart Rate 79 /min 60-100 January 10 8:52pm Respiratory rate 16 /min -December 8:52pm Oxygen saturation by Pulse oximetry 99 % 95-100 2022 8: 52pm BP Systolic 119 mm[Hg] 100-140 January 10 8:52pm BP Diastolic 53 mm[Hg] 50-85 January 10 8:52pm Weight 74.84 kg February 20 1:56pm Body Temperature 97.8 [degF] 97.6-99.6 February 1:56pm Heart Rate 68 /min 60-100 February 20 1:56pm Respiratory rate 16 /min -February 1:56pm Oxygen saturation by Pulse oximetry 97 % 95-100 February 20, 2022 1: 56pm BP Systolic 105 mm[Hg] 100-140 February 20 1:56pm BP Diastolic 44 mm[Hg] 50-85 February 20 1:56pm Height 66 [in_i] March 19, 2 022 1:48pm Weight 74.84 kg March 19, 2 022 1:48pm Body Temperature 98.5 [degF] 97.6-99.6 March 1:48pm Heart Rate 98 /min 60-100 March 19, 2 022 1:48pm Respiratory rate 18 /min -March 1:48pm Oxygen saturation by Pulse oximetry 99 % 95-100 March 19, 2022 1 :48pm BP Systolic 110 mm[Hg] 100-140 March 19, 022 1:48pm BP Diastolic 73 mm[Hg] 50-85 March 19 022 1:48pm Weight 77.11 kg April 06, 2022 10:31am Heart Rate 92 /min 60-100 April 06, 2022 10:31am Respiratory rate 18 /min -April 062021 10:31am Oxygen saturation by Pulse oximetry 98 % 95-100 April 06, 2022 10:31am BP Systolic 125 mm[Hg] 100-140 April 06, 2022 10:31am BP Diastolic 68 mm[Hg] 50-85 April 06, 2022 10:31am Advance Directives Advance Directive Response Recorded Date/ Time Does patient have an Advance Directive? No 2022 6:29pm Does patient have a COLST form? No 2022 6:29pm Insurance Providers Guarantor EDUARDO PAYAN Address [address] [address] Contact Info. Home Phone: Payer Policy Id Coverage Id Subscriber's Name Subscriber Id Effective Date Expiration Date [facility] [id number] EDUARDO PAYAN [id number] 000 SELF PAY Self N/A Encounters Encounter Location(s) Arrival/Admit Date Discharge/Depart Date Provider(s) Departed Emergency [facility] June 27, 2021 2:30pm June 27, 2021 4:01pm null Departed Emergency [facility] August 07, 2021 10:58am August 07, 2021 4:15pm null Departed Emergency [facility] August 10, 2021 1:19pm August 10, 2021 4:11pm null Departed Emergency [facility] August 26, 2021 4:22pm August 26, 2021 6:15pm null Departed Emergency [facility] September 23, 2021 2:02pm September 23, 2021 6:35pm null Departed Emergency [facility] November 10, 2021 10:22am November 10, 2021 4:45pm null Departed Emergency [facility] 2022 4:23pm 2022 8:55pm null Departed Emergency [facility] February 20, 2022 1:39pm February 20, 2022 2:42pm null Departed Emergency [facility] March 19, 2022 1:34pm March 19, 2022 3:09pm null Departed Emergency [facility] April 06, 2022 10:08am April 06, 2022 11:29am null Functional Status Observation Response Date Recorded Living Situation Home March 19 1:55pm Mental Status Observation Response Date Recorded Comprehension Ability Understands Concepts Novem 2021 2:30pm Mood/Behavior Appropriate March 19 2:30pm Comprehension Ability Understands Concepts Novem 2021 10:53am Mood/Behavior Appropriate April 06 10:53am Anxious April 06 10:53am Speech Appropriate September 23, 2021 2 :50pm Plan of Treatment Future Tests Future scheduled test information is unavailable Pending Tests Pending diagnostic test information is unavailable Future Visits Future appointment information is unavailable Referrals to Other Providers Reason for Referral Referral Start Date Provider Provider Contact Information Provider Address Ashlie Ramos Work Phone: [address] [place] [address] No Pcp No Pcp [facility] Work Phone: [facility] [address] [facility] [address] [place] No Pcp [facility] Work Phone: [address] [facility] [address] No Pcp Emely holloway MD Work Phone: [facility] [employer] [address] [facility] [address] [place] [facility] Work Phone: [address] [place], [place] [address]ili [address] [facility] [address] [place] Future Procedures Future procedure information is unavailable Future Medications Future medication information is unavailable Patient Instructions Constipation, Adult (DC) Diarrhea and Travelers' Diar rodriguez, Adult (DC) Nausea and Vomiting, Adult (DC) Pelvic Pain (DC) Endometriosis (DC) Abdominal Pain, Adult ED Chronic Pelvic Pain (DC) Abdominal Pain, Adult ED Heavy Periods (DC) Hospital Discharge Instructions Additional Instructions You were seen in the emergency department for vaginal bleeding. We performed labs that were unremarkable. We offered you oral TXA and further monitoring here but you said you wanted to leave. We Splane to you that this could lead to further vaginal bleeding, lightheadedness, fainting, or even . You understood these risks. You said you were going straight to your doctor at [facility]. If you change your mind and want to be seen here again you can come right back to the emergency department and we would be happy to see you. You left the hospital AGAINST MEDICAL ADVICE.
--- OUTSIDE RECORDS SUMMARY | 2022-11-20 17:49 | XMS_ITS | Continuity of Care Document ---
Author Name Unknown Address [address] [place] [address] Phone [facility] Address [address] [place] [address] Phone Care Team Providers Care Long Term Care Social Worker Name Role Phone PCP, of Choice Primary Care Provider MARIELLA Mcleod Emergency Provider Out of Town, Provider Primary Care Provider Unav MARIELLA Irvin Emergency Provider MD Yolanda Dial Emergency Provider [phone] MD Konstantin Villaseñor Emergency Provider [phone] MD Praveen Harden Emergency Provider KIRA Garcia Emergency Provider MD Pierce Cowan Emergency Provider Tae Quiroz Emergency Provider MD Sen Segovia Emergency Provider [phone] Chief Complaint and Reason for Visit Chief Complaint POST OP CONCERN ABDOMINAL PAIN HEAVY VAG BLEEDING FALL/ BACK COMPLAINT PELVIC PAIN 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 POST OP CONCERN POST OP CONCERN, BLEEDING PELVIC PAIN Allergies, Adverse Reactions, Alerts Allergen Type Severity Reaction Last Updated Verified Status droperidol Allergy anaphylactic shock Octobe r 2021 3:00pm Yes Active haloperidol Allergy rash February 20, 2022 3:00pm Yes Active ibuprofen Allergy February 20, 2022 3:00pm Yes Active ketorolac Allergy anaphylaxis February 20, 2022 3:00pm Yes Active latex Allergy rash February 20, 2022 3:00pm Yes Active Penicillins Allergy hives February 20, 2022 3:00pm Yes Active prochlorperazine Allergy hives February 20, 2022 3:00pm Yes Active Social History Smoking Status Status Start Date End Date Date of Observa tion Never smoked tobacco (finding) February 20, 2022 3:25pm Observation Status Observation Response Date of Response Alcohol Use Yes February 20 3:25pm alcohol intake frequency a few times a month Oct yonny 2021 3:25pm Alcohol type hard liquor February 20 3:25pm Substance/Street Drug Use Yes Octobe r 2021 3:25pm Substance Use Treatment No February 20, 2022 3:25pm substance use type marijuana February 20, 2022 3:25pm Smoking Status Never smoker February 20 3:25pm Additional Data Assigned Sex Female Problems Inactive/Resolved Problems Medical Problem Onset Date Status [...] cetaminophen Disconti nued TABLET December 29, 2020 12:00January 07, 2021 5:04pm Cefdinir Disconti nued 300 MG PO TWICE A DAY er 2020 12:00am 2020 9:07pm Tramadol Disconti nued 50 MG [...] 2020 3:08pm Oxycodone Disconti nued MG CAPSULE Fidel mcneil 2020 12:00am Februa ry 2021 3:37pm Fluticasone Propion-Salme terol (Advair Hfa) 115-21 mcg/actuation HFA aerosol inhaler Active INH 2020 12:00am Ondansetron Hcl (Zofran) 4 mg tablet Disconti nued 4 MG PO Q8H 12 4 be 2020 12:00am Novemb er 2020 1:01am Sulfamethoxaz ole-Trimethop rim (Bactrim Ds) 800-160 mg tablet Disconti nued 1 TAB PO TWICE A DAY 14 Novembe 2020 12:00am Novemb er 2020 1:25pm Tizanidine [...] Result Comment Performing Site White Blood Count March 16, 2021 5:34pm 6.11 1000/mm3 4.8-10.8 [facility] [address] [address] White Blood Count March 18, 2021 7:56pm 5.26 1000/mm3 4.8-10.8 [facility] [address] [address] White Blood Count March 20, 2021 4:37pm 4.94 1000/mm3 4.8-10.8 [facility] [address] [address] White Blood Count August 07, 2021 1:30pm 4.95 1000/mm3 4.8-10.8 [facility] [address] [address] White Blood Count August 10, 2021 3:14pm 4.83 1000/mm3 4.8-10.8 [facility] [address] [address] White Blood Count November 10, 2021 1:00pm 4.91 1000/mm3 4.8-10.8 [facility] [id number] [address] [address] White Blood Count 2022 8:10pm 5.41 1000/mm3 4.8-10.8 [facility] [id number] [address] [address] Red Blood Count March 16, 2021 5:34pm 4.26 M/mm3 4.20-5.40 [facility] [address] [address] Red Blood Count March 18, 2021 7:56pm 4.17 M/mm3 4.20-5.40 [facility] [address] [address] Red Blood Count March 20, 2021 4:37pm 4.14 M/mm3 4.20-5.40 [facility] [address] [address] Red Blood Count August 07, 2021 1:30pm 4.43 M/mm3 4.20-5.40 [facility] [address] [address] Red Blood Count August 10, 2021 3:14pm 3.83 M/mm3 4.20-5.40 [facility] [address] [address] Red Blood Count November 10, 2021 1:00pm 3.22 M/mm3 4.20-5.40 [facility] [id number] [address] [address] Red Blood Count 2022 8:10pm 4.00 M/mm3 4.20-5.40 [facility] [id number] [address] [address] Hemoglobin March 16, 2021 5:34pm 9.9 g/dL 12.0-16.0 [facility] [address] [address] Hemoglobin March 18, 2021 7:56pm 9.9 g/dL 12.0-16.0 [facility] [address] [address] Hemoglobin March 20, 2021 4:37pm 9.8 g/dL 12.0-16.0 [facility] [address] [facility] [address] Hemoglobin August 07, 2021 1:30pm 11.4 g/dL 12.0-16.0 [facility] [address] [facility] [address] Hemoglobin August 10, 2021 3:14pm 9.9 g/dL 12.0-16.0 [facility] [address] [address] Hemoglobin November 10, 2021 1:00pm 8.4 g/dL 12.0-16.0 [facility] [id number] [address] [address] Hemoglobin 2022 8:10pm 8.6 g/dL 12.0-16.0 [facility] [id number] [address] [address] Hematocrit March 16, 2021 5:34pm 33.2 % 37-47 [facility] [address] [address] Hematocrit March 18, 2021 7:56pm 32.9 % 37-47 [facility] [address] [address] Hematocrit March 20, 2021 4:37pm 32.6 % 37-47 [facility] [address] [address] Hematocrit August 07, 2021 1:30pm 36.4 % 37-47 [facility] [address] [address] Hematocrit August 10, 2021 3:14pm 31.6 % 37-47 [facility] [address] [address] Hematocrit November 10, 2021 1:00pm 26.8 % 37-47 [facility] [id number] [address] [address] Hematocrit 2022 8:10pm 29.3 % 37-47 [facility] [id number] [address] [address] Mean Corpuscular Volume March 16, 2021 5:34pm 77.9 fL 81.0-99.0 [facility] [address] [facility] [address] Mean Corpuscular Volume March 18, 2021 7:56pm 78.9 fL 81.0-99.0 [facility] [address] [facility] [address] Mean Corpuscular Volume March 20, 2021 4:37pm 78.7 fL 81.0-99.0 [facility] [address] [address] Mean Corpuscular Volume August 07, 2021 1:30pm 82.2 fL 81.0-99.0 [facility] [address] [address] Mean Corpuscular Volume August 10, 2021 3:14pm 82.5 fL 81.0-99.0 [facility] [address] [address] Mean Corpuscular Volume November 10, 2021 1:00pm 83.2 fL 81.0-99.0 [facility] [id number] [address] [address] Mean Corpuscular Volume 2022 8:10pm 73.3 fL 81.0-99.0 [facility] [id number] [address] [address] Mean Corpuscular Hemoglobin March 16, 2021 5:34pm 23.2 pg 27-31 [facility] [address] [facility] [address] Mean Corpuscular Hemoglobin March 18, 2021 7:56pm 23.7 pg 27-31 [facility] [address] [address] Mean Corpuscular Hemoglobin March 20, 2021 4:37pm 23.7 pg 27-31 [facility] [address] [address] Mean Corpuscular Hemoglobin August 07, 2021 1:30pm 25.7 pg 27-31 [facility] [address] [address] Mean Corpuscular Hemoglobin August 10, 2021 3:14pm 25.8 pg 27-31 [facility] [address] [facility] [address] Mean Corpuscular Hemoglobin November 10, 2021 1:00pm 26.1 pg 27-31 [facility] [id number] [facility] [address] [facility] [address] Mean Corpuscular Hemoglobin 2022 8:10pm 21.5 pg 27-31 [facility] [id number] [address] [address] Mean Corpuscular Hemoglobin Concent March 16, 2021 5:34pm 29.8 g/dL 33-37 [facility] [address] [address] Mean Corpuscular Hemoglobin Concent March 18, 2021 7:56pm 30.1 g/dL 33-37 [facility] [address] [address] Mean Corpuscular Hemoglobin Concent March 20, 2021 4:37pm 30.1 g/dL 33-37 [facility] [address] [address] Mean Corpuscular Hemoglobin Concent August 07, 2021 1:30pm 31.3 g/dL 33-37 [facility] [address] [address] Mean Corpuscular Hemoglobin Concent August 10, 2021 3:14pm 31.3 g/dL 33-37 [facility] [address] [address] Mean Corpuscular Hemoglobin Concent November 10, 2021 1:00pm 31.3 g/dL 33-37 [facility] [id number] [address] [address] Mean Corpuscular Hemoglobin Concent 2022 8:10pm 29.4 g/dL 33-37 [facility] [id number] [address] [address] Red Cell Distribution Width March 16, 2021 5:34pm 16.2 % 11.5-14.5 [facility] [address] [address] Red Cell Distribution Width March 18, 2021 7:56pm 16.4 % 11.5-14.5 [facility] [address] [address] Red Cell Distribution Width March 20, 2021 4:37pm 16.5 % 11.5-14.5 [facility] [address] [address] Red Cell Distribution Width August 07, 2021 1:30pm 14.0 % 11.5-14.5 [facility] [address] [address] Red Cell Distribution Width August 10, 2021 3:14pm 14.0 % 11.5-14.5 [facility] [address] [address] Red Cell Distribution Width November 10, 2021 1:00pm 14.4 % 11.5-14.5 [facility] [id number] [address] [address] Red Cell Distribution Width 2022 8:10pm 15.2 % 11.5-14.5 [facility] [id number] [address] [address] Platelet Count March 16, 2021 5:34pm 220 1000/mm3 140-440 [facility] [address] [address] Platelet Count March 18, 2021 7:56pm 212 1000/mm3 140-440 [facility] [address] [address] Platelet Count March 20, 2021 4:37pm 177 1000/mm3 140-440 [facility] [address] [address] Platelet Count August 07, 2021 1:30pm 207 1000/mm3 140-440 [facility] [address] [address] Platelet Count August 10, 2021 3:14pm 189 1000/mm3 140-440 [facility] [address] [address] Platelet Count November 10, 2021 1:00pm 282 1000/mm3 140-440 [facility] [id number] [address] [address] Platelet Count 2022 8:10pm 217 1000/mm3 140-440 [facility] [id number] [address] [address] Mean Platelet Volume March 16, 2021 5:34pm 10.6 fL 7.4-10.4 [facility] [address] [address] Mean Platelet Volume March 18, 2021 7:56pm 10.4 fL 7.4-10.4 [facility] [address] [address] Mean Platelet Volume March 20, 2021 4:37pm 9.9 fL 7.4-10.4 [facility] [address] [address] Mean Platelet Volume August 07, 2021 1:30pm 11.0 fL 7.4-10.4 [facility] [address] [address] Mean Platelet Volume August 10, 2021 3:14pm 10.7 fL 7.4-10.4 [facility] [address] [address] Mean Platelet Volume November 10, 2021 1:00pm 10.5 fL 7.4-10.4 [facility] [id number] [address] [address] Mean Platelet Volume 2022 8:10pm 12.9 fL 7.4-10.4 [facility] [id number] [address] [address] Neutrophils (%) (Auto) March 16, 2021 5:34pm 62.5 % 40.0-72.0 [facility] [address] [address] Neutrophils (%) (Auto) March 18, 2021 7:56pm 57.9 % 40.0-72.0 [facility] [address] [address] Neutrophils (%) (Auto) March 20, 2021 4:37pm 64.0 % 40.0-72.0 [facility] [address] [address] Neutrophils (%) (Auto) August 07, 2021 1:30pm 67.7 % 40.0-72.0 [facility] [address] [address] Neutrophils (%) (Auto) August 10, 2021 3:14pm 58.2 % 40.0-72.0 [facility] [address] [address] Neutrophils (%) (Auto) November 10, 2021 1:00pm 67.8 % 40.0-72.0 [facility] [id number] [address] [address] Neutrophils (%) (Auto) 2022 8:10pm 58.0 % 40.0-72.0 [facility] [id number] [address] [address] Lymphocytes (%) (Auto) March 16, 2021 5:34pm 26.7 % 17-45 [facility] [address] [address] Lymphocytes (%) (Auto) March 18, 2021 7:56pm 30.4 % 17-45 [facility] [address] [address] Lymphocytes (%) (Auto) March 20, 2021 4:37pm 26.1 % 17-45 [facility] [address] [address] Lymphocytes (%) (Auto) August 07, 2021 1:30pm 24.2 % 17-45 [facility] [address] [address] Lymphocytes (%) (Auto) August 10, 2021 3:14pm 32.3 % 17-45 [facility] [address] [address] Lymphocytes (%) (Auto) November 10, 2021 1:00pm 23.4 % 17-45 [facility] [id number] [address] [address] Lymphocytes (%) (Auto) 2022 8:10pm 31.4 % 17-45 [facility] [id number] [address] [address] Monocytes (%) (Auto) March 16, 2021 5:34pm 6.9 % 3-11 [facility] [address] [address] Monocytes (%) (Auto) March 18, 2021 7:56pm 7.2 % 3-11 [facility] [address] [address] Monocytes (%) (Auto) March 20, 2021 4:37pm 5.9 % 3-11 [facility] [address] [address] Monocytes (%) (Auto) August 07, 2021 1:30pm 5.9 % 3-11 [facility] [address] [address] Monocytes (%) (Auto) August 10, 2021 3:14pm 6.6 % 3-11 [facility] [address] [address] Monocytes (%) (Auto) November 10, 2021 1:00pm 4.7 % 3-11 [facility] [id number] [place] [address] Monocytes (%) (Auto) 2022 8:10pm 7.6 % 3-11 [facility] [id number] [place] [address] Eosinophils (%) (Auto) March 16, 2021 5:34pm 2.6 % 0-3 [facility] [address] [address] Eosinophils (%) (Auto) March 18, 2021 7:56pm 3.2 % 0-3 [facility] [address] [address] Eosinophils (%) (Auto) March 20, 2021 4:37pm 2.8 % 0-3 [facility] [address] [address] Eosinophils (%) (Auto) August 07, 2021 1:30pm 1.2 % 0-3 [facility] [address] [address] Eosinophils (%) (Auto) August 10, 2021 3:14pm 2.1 % 0-3 [facility] [address] [address] Eosinophils (%) (Auto) November 10, 2021 1:00pm 3.1 % 0-3 [facility] [id number] [address] [address] Eosinophils (%) (Auto) 2022 8:10pm 1.7 % 0-3 [facility] [id number] [address] [address] Basophils (%) (Auto) March 16, 2021 5:34pm 1.1 % 0-1 [facility] [address] [address] Basophils (%) (Auto) March 18, 2021 7:56pm 1.1 % 0-1 [facility] [address] [address] Basophils (%) (Auto) March 20, 2021 4:37pm 1.0 % 0-1 [facility] [address] [address] Basophils (%) (Auto) August 07, 2021 1:30pm 0.8 % 0-1 [facility] [address] [address] Basophils (%) (Auto) August 10, 2021 3:14pm 0.6 % 0-1 [facility] [address] [address] Basophils (%) (Auto) November 10, 2021 1:00pm 0.6 % 0-1 [facility] [id number] [address] [address] Basophils (%) (Auto) 2022 8:10pm 1.1 % 0-1 [facility] [id number] [address] [address] Immature Granulocyte % (Auto) March 16, 2021 5:34pm 0.2 % 0-1 [facility] [address] [address] Immature Granulocyte % (Auto) March 18, 2021 7:56pm 0.2 % 0-1 [facility] [address] [address] Immature Granulocyte % (Auto) March 20, 2021 4:37pm 0.2 % 0-1 [facility] [address] [address] Immature Granulocyte % (Auto) August 07, 2021 1:30pm 0.2 % 0-1 [facility] [address] [address] Immature Granulocyte % (Auto) August 10, 2021 3:14pm 0.2 % 0-1 [facility] [address] [address] Immature Granulocyte % (Auto) November 10, 2021 1:00pm 0.4 % 0-1 [facility] [id number] [address] [address] Immature Granulocyte % (Auto) 2022 8:10pm 0.2 % 0-1 [facility] [id number] [address] [address] Neutrophils # (Auto) March 16, 2021 5:34pm 3.82 1000/mm3 1.4-6.5 [facility] [address] [address] Neutrophils # (Auto) March 18, 2021 7:56pm 3.04 1000/mm3 1.4-6.5 [facility] [address] [address] Neutrophils # (Auto) March 20, 2021 4:37pm 3.16 1000/mm3 1.4-6.5 [facility] [address] [address] Neutrophils # (Auto) August 07, 2021 1:30pm 3.35 1000/mm3 1.4-6.5 [facility] [address] [address] Neutrophils # (Auto) August 10, 2021 3:14pm 2.81 1000/mm3 1.4-6.5 [facility] [address] [address] Neutrophils # (Auto) November 10, 2021 1:00pm 3.33 1000/mm3 1.4-6.5 [facility] [id number] [address] [address] Neutrophils # (Auto) 2022 8:10pm 3.14 1000/mm3 1.4-6.5 [facility] [id number] [address] [address] Lymphocytes # (Auto) March 16, 2021 5:34pm 1.63 1000/mm3 1.2-3.4 [facility] [address] [address] Lymphocytes # (Auto) March 18, 2021 7:56pm 1.60 1000/mm3 1.2-3.4 [facility] [address] [address] Lymphocytes # (Auto) March 20, 2021 4:37pm 1.29 1000/mm3 1.2-3.4 [facility] [address] [address] Lymphocytes # (Auto) August 07, 2021 1:30pm 1.20 1000/mm3 1.2-3.4 [facility] [address] [address] Lymphocytes # (Auto) August 10, 2021 3:14pm 1.56 1000/mm3 1.2-3.4 [facility] [address] [address] Lymphocytes # (Auto) November 10, 2021 1:00pm 1.15 1000/mm3 1.2-3.4 [facility] [id number] [address] [address] Lymphocytes # (Auto) 2022 8:10pm 1.70 1000/mm3 1.2-3.4 [facility] [id number] [address] [address] Monocytes # (Auto) March 16, 2021 5:34pm 0.42 1000/mm3 0.0-0.8 [facility] [address] [address] Monocytes # (Auto) March 18, 2021 7:56pm 0.38 1000/mm3 0.0-0.8 [facility] [address] [address] Monocytes # (Auto) March 20, 2021 4:37pm 0.29 1000/mm3 0.0-0.8 [facility] [address] [address] Monocytes # (Auto) August 07, 2021 1:30pm 0.29 1000/mm3 0.0-0.8 [facility] [address] [address] Monocytes # (Auto) August 10, 2021 3:14pm 0.32 1000/mm3 0.0-0.8 [facility] [address] [address] Monocytes # (Auto) November 10, 2021 1:00pm 0.23 1000/mm3 0.0-0.8 [facility] [id number] [address] [address] Monocytes # (Auto) 2022 8:10pm 0.41 1000/mm3 0.0-0.8 [facility] [id number] [address] [address] Eosinophils # (Auto) March 16, 2021 5:34pm 0.16 1000/mm3 0.0-0.7 [facility] [address] [address] Eosinophils # (Auto) March 18, 2021 7:56pm 0.17 1000/mm3 0.0-0.7 [facility] [address] [address] Eosinophils # (Auto) March 20, 2021 4:37pm 0.14 1000/mm3 0.0-0.7 [facility] [address] [address] Eosinophils # (Auto) August 07, 2021 1:30pm 0.06 1000/mm3 0.0-0.7 [facility] [address] [address] Eosinophils # (Auto) August 10, 2021 3:14pm 0.10 1000/mm3 0.0-0.7 [facility] [address] [address] Eosinophils # (Auto) November 10, 2021 1:00pm 0.15 1000/mm3 0.0-0.7 [facility] [id number] [address] [place] [address] Eosinophils # (Auto) 2022 8:10pm 0.09 1000/mm3 0.0-0.7 [facility] [id number] [address] [address] Basophils # (Auto) March 16, 2021 5:34pm 0.07 1000/mm3 0.0-0.1 [facility] [address] [address] Basophils # (Auto) March 18, 2021 7:56pm 0.06 1000/mm3 0.0-0.1 [facility] [address] [address] Basophils # (Auto) March 20, 2021 4:37pm 0.05 1000/mm3 0.0-0.1 [facility] [address] [address] Basophils # (Auto) August 07, 2021 1:30pm 0.04 1000/mm3 0.0-0.1 [facility] [address] [address] Basophils # (Auto) August 10, 2021 3:14pm 0.03 1000/mm3 0.0-0.1 [facility] [address] [address] Basophils # (Auto) November 10, 2021 1:00pm 0.03 1000/mm3 0.0-0.1 [facility] [id number] [address] [address] Basophils # (Auto) 2022 8:10pm 0.06 1000/mm3 0.0-0.1 [facility] [id number] [address] [address] Absolute Immature Granulocyte (auto March 16, 2021 5:34pm 0.0 0-1 [facility] [address] [address] Absolute Immature Granulocyte (auto March 18, 2021 7:56pm 0.0 0-1 [facility] [address] [address] Absolute Immature Granulocyte (auto March 20, 2021 4:37pm 0.0 0-1 [facility] [address] [address] Absolute Immature Granulocyte (auto August 07, 2021 1:30pm 0.0 0-1 [facility] [address] [address] Absolute Immature Granulocyte (auto August 10, 2021 3:14pm 0.0 0-1 [facility] [address] [address] Absolute Immature Granulocyte (auto November 10, 2021 1:00pm 0.0 0-1 [facility] [id number] [address] [address] Absolute Immature Granulocyte (auto 2022 8:10pm 0.0 0-1 [facility] [id number] [address] [address] Differential Method March 16, 2021 5:34pm Automated [facility] [address] [address] Differential Method March 18, 2021 7:56pm Automated [facility] [address] [address] Differential Method March 20, 2021 4:37pm Automated [facility] [address] [address] Differential Method August 07, 2021 1:30pm Automated [facility] [address] [address] Differential Method August 10, 2021 3:14pm Automated [facility] [address] [address] Differential Method November 10, 2021 1:00pm Automated [facility] [id number] [address] [address] Differential Method 2022 8:10pm Automated [facility] [id number] [address] [address] Urine RBC March 16, 2021 6:40pm Tntc /hpf 0-2 [facility] [address] [address] Urine RBC June 27, 2021 4:10pm 0-2 /hpf 0-2 [facility] [address] [address] Urine WBC March 16, 2021 6:40pm See comment /hpf 0-5 Microscopic field obscured by RBC. [facility] [address] [address] Urine WBC June 27, 2021 4:10pm None seen /hpf 0-5 [facility] [address] [address] Urine Squamous Epithelial Cells June 27, 2021 4:10pm 2+ /hpf [facility] [address] [address] Urine Bacteria March 16, 2021 6:40pm See comment /hpf NONE SEEN Microscopic field obscured by RBC. [facility] [address] [address] Urine Bacteria June 27, 2021 4:10pm 1+ /hpf NONE SEEN [facility] [address] [address] Urine Mucus June 27, 2021 4:10pm Present [facility] [address] [address] Urine Culture Done March 16, 2021 6:40pm Yes URINE SPECIMEN CULTURED [facility] [address] [address] Urine Culture Done June 27, 2021 4:10pm No CULTURE NOT INDICATED. [facility] [address] [address] Sodium Level March 16, 2021 5:34pm 137 mmol/L 137-145 [facility] [address] [address] Sodium Level March 18, 2021 7:56pm 141 mmol/L 137-145 [facility] [address] [address] Sodium Level March 20, 2021 5:04pm 140 mmol/L 137-145 [facility] [address] [address] Sodium Level August 07, 2021 1:30pm 141 mmol/L 137-145 [facility] [address] [address] Sodium Level August 10, 2021 3:14pm 140 mmol/L 137-145 [facility] [address] [address] Sodium Level November 10, 2021 1:00pm 139 mmol/L 137-145 [facility] [id number] [facility] [address] [facility] [address] Sodium Level 2022 8:10pm 140 mmol/L 137-145 [facility] [id number] [address] [address] Potassium Level March 16, 2021 5:34pm 4.0 mmol/L 3.6-5.0 [facility] [address] [address] Potassium Level March 18, 2021 7:56pm 3.4 mmol/L 3.6-5.0 [facility] [address] [address] Potassium Level March 20, 2021 5:04pm 3.8 mmol/L 3.6-5.0 [facility] [address] [address] Potassium Level August 07, 2021 1:30pm 4.3 mmol/L 3.6-5.0 [facility] [address] [address] Potassium Level August 10, 2021 3:14pm 4.0 mmol/L 3.6-5.0 [facility] [address] [address] Potassium Level November 10, 2021 1:00pm 4.2 mmol/L 3.6-5.0 [facility] [id number] [address] [address] Potassium Level 2022 8:10pm 3.7 mmol/L 3.6-5.0 [facility] [id number] [address] [address] Chloride Level March 16, 2021 5:34pm 102 mmol/L 98-107 [facility] [address] [address] Chloride Level March 18, 2021 7:56pm 102 mmol/L 98-107 [facility] [address] [address] Chloride Level March 20, 2021 5:04pm 103 mmol/L 98-107 [facility] [address] [address] Chloride Level August 07, 2021 1:30pm 105 mmol/L 98-107 MA[facility] [address] [facility] [address] Chloride Level August 10, 2021 3:14pm 103 mmol/L 98-107 [facility] [address] [facility] [address] Chloride Level November 10, 2021 1:00pm 104 mmol/L 98-107 [facility] [id number] [facility] [address] [facility] [address] Chloride Level 2022 8:10pm 102 mmol/L 98-107 [facility] [id number] [facility] [address] [facility] [address] Carbon Dioxide Level March 16, 2021 5:34pm 28 mmol/L 22-30 [facility] [address] [facility] [address] Carbon Dioxide Level March 18, 2021 7:56pm 29 mmol/L 22-30 [facility] [address] [facility] [address] Carbon Dioxide Level March 20, 2021 5:04pm 27 mmol/L 22-30 [facility] [address] [facility] [address] Carbon Dioxide Level August 07, 2021 1:30pm 24 mmol/L 22-30 [facility] [address] [facility] [address] Carbon Dioxide Level August 10, 2021 3:14pm 26 mmol/L 22-30 [facility] [address] [facility] [address] Carbon Dioxide Level November 10, 2021 1:00pm 24 mmol/L 22-30 [facility] [id number] [facility] [address] [facility] [address] Carbon Dioxide Level 2022 8:10pm 30 mmol/L 22-30 [facility] [id number] [facility] [address] [facility] [address] Anion Gap March 16, 2021 5:34pm 7 7-16 [facility] [address] [facility] [address] Anion Gap March 18, 2021 7:56pm 10 7-16 [facility] [address] [facility] [address] Anion Gap March 20, 2021 5:04pm 10 7-16 [facility] [address] [facility] [address] Anion Gap August 07, 2021 1:30pm 12 7-16 [facility] [address] [facility] [address] Anion Gap August 10, 2021 3:14pm 11 7-16 [facility] [address] [address] Anion Gap November 10, 2021 1:00pm 11 7-16 [facility] [id number] [address] [address] Anion Gap 2022 8:10pm 8 7-16 [facility] [id number] [address] [address] Blood Urea Nitrogen March 16, 2021 5:34pm 10 mg/dL 7-17 [facility] [address] [address] Blood Urea Nitrogen March 18, 2021 7:56pm 10 mg/dL 7-17 [facility] [address] [address] Blood Urea Nitrogen March 20, 2021 5:04pm 5 mg/dL 7-17 [facility] [address] [address] Blood Urea Nitrogen August 07, 2021 1:30pm 14 mg/dL 7-17 [facility] [address] [address] Blood Urea Nitrogen August 10, 2021 3:14pm 7 mg/dL 7-17 [facility] [address] [address] Blood Urea Nitrogen November 10, 2021 1:00pm 7 mg/dL 7-17 [facility] [id number] [address] [address] Blood Urea Nitrogen 2022 8:10pm 8 mg/dL 7-17 [facility] [id number] [address] [address] Creatinine March 16, 2021 5:34pm 0.62 mg/dL 0.52-1.04 [facility] [address] [place] [address] Creatinine March 18, 2021 7:56pm 0.66 mg/dL 0.52-1.04 [facility] [address] [address] Creatinine March 20, 2021 5:04pm 0.59 mg/dL 0.52-1.04 [facility] [address] [address] Creatinine August 07, 2021 1:30pm 0.65 mg/dL 0.52-1.04 [facility] [address] [address] Creatinine August 10, 2021 3:14pm 0.60 mg/dL 0.52-1.04 [facility] [address] [address] Creatinine November 10, 2021 1:00pm 0.76 mg/dL 0.52-1.04 [facility] [id number] [facility] [address] [address] Creatinine 2022 8:10pm 0.66 mg/dL 0.52-1.04 [facility] [id number] [address] [address] Glomerular Filtration Rate Calc March 16, 2021 5:34pm > 60 mL/min >60.0 [facility] [address] [address] Glomerular Filtration Rate Calc March 18, 2021 7:56pm > 60 mL/min >60.0 [facility] [address] [address] Glomerular Filtration Rate Calc March 20, 2021 5:04pm > 60 mL/min >60.0 [facility] [address] [address] Glomerular Filtration Rate Calc August 07, 2021 1:30pm > 60 mL/min >60.0 [facility] [address] [address] Glomerular Filtration Rate Calc August 10, 2021 3:14pm > 60 mL/min >60.0 [facility] [address] [address] Glomerular Filtration Rate Calc November 10, 2021 1:00pm > 60 mL/min >60.0 [facility] [id number] [facility] [address] [facility] [address] Glomerular Filtration Rate Calc 2022 8:10pm > 60 mL/min >60.0 [facility] [id number] [facility] [address] [facility] [address] Glucose Level March 16, 2021 5:34pm 90 mg/dL 70-100 [facility] [address] [facility] [address] Glucose Level March 18, 2021 7:56pm 84 mg/dL 70-100 [facility] [address] [address] Glucose Level March 20, 2021 5:04pm 91 mg/dL 70-100 [facility] [address] [address] Glucose Level August 07, 2021 1:30pm 100 mg/dL 70-100 [facility] [address] [address] Glucose Level August 10, 2021 3:14pm 85 mg/dL 70-100 [facility] [address] [address] Glucose Level November 10, 2021 1:00pm 95 mg/dL 70-100 [facility] [id number] [address] [address] Glucose Level 2022 8:10pm 97 mg/dL 70-100 [facility] [id number] [address] [address] Calcium Level March 16, 2021 5:34pm 9.5 mg/dL 8.4-10.2 [facility] [address] [address] Calcium Level March 18, 2021 7:56pm 9.3 mg/dL 8.4-10.2 [facility] [address] [address] Calcium Level March 20, 2021 5:04pm 9.4 mg/dL 8.4-10.2 [facility] [address] [address] Calcium Level August 07, 2021 1:30pm 9.8 mg/dL 8.4-10.2 [facility] [address] [address] Calcium Level August 10, 2021 3:14pm 9.2 mg/dL 8.4-10.2 [facility] [address] [address] Calcium Level November 10, 2021 1:00pm 9.6 mg/dL 8.4-10.2 [facility] [id number] [address] [address] Calcium Level 2022 8:10pm 9.2 mg/dL 8.4-10.2 [facility] [id number] [address] [address] Calcium Adjusted for Albumin March 16, 2021 5:34pm 9.4 mg/dL 8.4-10.2 [facility] [address] [address] Calcium Adjusted for Albumin March 18, 2021 7:56pm 9.1 mg/dL 8.4-10.2 [facility] [address] [address] Calcium Adjusted for Albumin August 07, 2021 1:30pm 9.2 mg/dL 8.4-10.2 [facility] [address] [address] Total Bilirubin March 16, 2021 5:34pm 0.4 mg/dL 0.2-1.3 [facility] [address] [address] Total Bilirubin March 18, 2021 7:56pm 0.4 mg/dL 0.2-1.3 [facility] [address] [address] Total Bilirubin August 07, 2021 1:30pm 0.6 mg/dL 0.2-1.3 [facility] [address] [address] Aspartate Amino Transf (AST/SGOT) March 16, 2021 5:34pm 36 U/L 14-36 [facility] [address] [address] Aspartate Amino Transf (AST/SGOT) March 18, 2021 7:56pm 37 U/L 14-36 [facility] [address] [address] Aspartate Amino Transf (AST/SGOT) August 07, 2021 1:30pm 48 U/L 14-36 [facility] [address] [address] Alanine Aminotransferase (ALT/SGPT) March 16, 2021 5:34pm 17 U/L <35 As of 09/13/19, the Reference Range for ALT/SGPT for adult patients has been updated. The Reference Range for ALT/SGPT has not been established for patients <18 years of age. [facility] [address] [address] Alanine Aminotransferase (ALT/SGPT) March 18, 2021 7:56pm 19 U/L <35 As of 09/13/19, the Reference Range for ALT/SGPT for adult patients has been updated. The Reference Range for ALT/SGPT has not been established for patients <18 years of age. [facility] [address] [address] Alanine Aminotransferase (ALT/SGPT) August 07, 2021 1:30pm 36 U/L <35 As of 09/13/19, the Reference Range for ALT/SGPT for adult patients has been updated. The Reference Range for ALT/SGPT has not been established for patients <18 years of age. [facility] [address] [address] Lactic Acid Level March 18, 2021 7:56pm 1.0 mmol/L 0.7-2.1 [facility] [address] [address] Total Protein March 16, 2021 5:34pm 7.2 g/dL 6.3-8.2 [facility] [address] [address] Total Protein March 18, 2021 7:56pm 7.6 g/dL 6.3-8.2 [facility] [address] [address] Total Protein August 07, 2021 1:30pm 8.3 g/dL 6.3-8.2 [facility] [address] [address] Albumin March 16, 2021 5:34pm 4.4 g/dL 3.5-5.0 [facility] [address] [address] Albumin March 18, 2021 7:56pm 4.6 g/dL 3.5-5.0 [facility] [address] [address] Albumin August 07, 2021 1:30pm 5.0 g/dL 3.5-5.0 [facility] [address] [address] Alkaline Phosphatase March 16, 2021 5:34pm 45 U/L 38-126 [facility] [address] [address] Alkaline Phosphatase March 18, 2021 7:56pm 47 U/L 38-126 [facility] [address] [address] Alkaline Phosphatase August 07, 2021 1:30pm 58 U/L 38-126 [facility] [address] [address] Lipase August 07, 2021 1:30pm 64 U/L 23-300 [facility] [address] [address] Microbiology Results Procedure Source Result Collection Date/Time Result Date/Time Result Comment Performing Site Blood Culture Blood, Left Antecubital NO GROWTH AFTER 5 DAYS March 24, 2021 7:15am [facility] [address] [address] Urine Culture Ur,Clean Catch March 18, 2021 10:45am [facility] [address] [address] Gram Stain Umbilicus March 17, 2021 8:17am [facility] [address] [address] Routine Culture Umbilicus Staphylococcus Aureus-Mrsa March 20, 2021 8:34am [facility] [address] [address] Diagnostic Imaging Reports Report Dictated Date/Time Dictated By Status Radiology Report March 16, 2021 8:09pm Tiburcio Heaton MD completed CAT SCAN REPORT PATIENT NAME: [...] had a laporoscopy compelted on 03/05/21, at [facility] in [place]. States she is having sharp cramping stabbing [...] 07, 2021 4:03pm Yuli Jiang DO completed CAT SCAN REPORT PATIENT NAME: EDUARDO [...] for abdominal pain. Electronically Signed By : Yuil Jiang DO dd: [id number] Vital Signs Vital Reading Result Reference Range Collection Date/Time Weight 92.98 kg March 16 3:55pm Body Temperature 99.0 [degF] 97.6-99.6 March 3:55pm Heart Rate 78 /min 60-100 March 16 9:44pm Respiratory rate 18 /min 12-24 March 9:44pm Oxygen saturation by Pulse oximetry 98 % 95-100 March 16, 2021 9 :44pm BP Systolic 116 mm[Hg] 100-140 March 16 9:44pm BP Diastolic 68 mm[Hg] 50-85 November 2nd, 2 021 9:44pm Weight 95.25 kg March [...] 7:21pm Respiratory rate 18 /min -September 23, 022 7:21pm Oxygen saturation by Pulse oximetry [...] Diastolic 44 mm[Hg] 50-85 February 20 2:56pm Advance Directives Advance Directive Response Recorded Date/ Time Does patient have an Advance Directive? No 2022 7:29pm Does patient have a COLST form? No 2022 7:29pm Insurance Providers Guarantor EDUARDO PAYAN Address [address] [place] [address] Contact Info. Home Phone: Payer Policy Id Coverage Id Subscriber's Name Subscriber Id Effective Date Expiration Date [facility] [id number] EDUARDO George PAYAN [id number] 000 SELF PAY Self N/A Encounters Encounter Location(s) Arrival/Admit Date Discharge/Depart Date Provider(s) Departed Emergency [facility] March 16, 2021 3:28pm March 16, 2021 10:43pm null Departed Emergency [facility] March 18, 2021 6:11pm March 18, 2021 9:19pm null Departed Emergency [facility] March 20, 2021 2:33pm March 20, 2021 6:25pm null Departed Emergency [facility] March 27, 2021 12:49pm March 27, 2021 3:32pm null Departed Emergency [facility] June 27, 2021 3:30pm June 27, 2021 5:01pm null Departed Emergency [facility] August 07, 2021 11:58am August 07, 2021 5:15pm null Departed Emergency [facility] August 10, 2021 2:19pm August 10, 2021 5:11pm null Departed Emergency [facility] August 26, 2021 5:22pm August 26, 2021 7:15pm null Departed Emergency [facility] September 23, 2021 3:02pm September 23, 2021 7:35pm null Departed Emergency [facility] November 10, 2021 11:22am November 10, 2021 5:45pm null Departed Emergency [facility] 2022 5:23pm 2022 9:55pm null Departed Emergency [facility] February 20, 2022 2:39pm February 20, 2022 3:42pm null Functional Status Observation Response Date Recorded Living Situation Home February 20 3:01pm Mental Status Observation Response Date Recorded Speech Appropriate September 23, 2021 3 :50pm Comprehension Ability Understands Concepts Novem 2020 8:30pm [...] Provider Contact Information Provider Address No Pcp ANTONI [employer] [place] Work Phone: [facility] [address] [facility] [address] [place] Emely holloway MD Work Phone: [facility] [address] [place] [address] [phone] Chavez and will see for [place] [facility] Work Phone: [address] [place] [phone] No Pcp Mahad Chavez MD Work Phone: [facility] [address] [place] [phone] [facility] Work Phone: [address] [place] [phone] No Pcp Emely holloway MD Work Phone: [facility] [address] [place] [phone] [place] Town [facility] On[facility] Work Phone: [address] [place] [address] Pavili Level [address] [facility] [address] Out Town [facility] Work Phone: [address] [place] [phone] Future Procedures Future procedure information is unavailable Future Medications Future medication information is unavailable Patient Instructions Ovarian Cyst (DC) Diarrhea and Travelers' Diar rodriguez, Adult (DC) Pelvic Pain (DC) Nausea and Vomiting After Surgery Constipation, Adult (DC) Diarrhea and Travelers' Diar rodriguez, Adult (DC) Nausea and Vomiting, Adult (DC) Pelvic Pain (DC) Endometriosis (DC) Abdominal Pain, Adult ED Chronic Pelvic Pain (DC) Abdominal Pain, Adult ED
--- OUTSIDE RECORDS SUMMARY | 2022-11-20 17:49 | XMS_ITS | Continuity of Care Document ---
Author Name Unknown Address [address], [place] [address] [facility] Address [address], [place] [address] Phone Care Team Providers Care Relay Repairer Name Role Phone PCP, of Choice Primary Care Provider MD Konstantin Donis Emergency Provider [phone] Tae Quiroz Emergency Provider MD Sen Segovia Emergency Provider [phone] MD Yolanda Dial Emergency Provider MD Cory Murillo Emergency Provider PCP, Not Given Primary Care Provider KIRA Turner Emergency Provider MD Fahad Morejon Emergency Provider Care Teams Patient Care Team [...] of Choice PCP Primary Care Provider Active Sne Segovia MD Emergency Provider Active Visit Care [...] COMPLAINT VAG BLEEDING VAGINAL BLEEDING, ABD PAIN Allergies, Adverse Reactions, Alerts Allergen [...] 4:27pm Yes Active promethazine Allergy November 05 4:27pm Yes Active Social History Smoking Status Status Start Date End Date Date of Observa tion Never smoked tobacco (finding) November 05, 2022 4:51pm Observation Status Observation Response Date of Response Alcohol Use Yes November 05, 2022 4:51pm alcohol intake frequency a few times a month [place] 2022 4:51pm Alcohol type hard liquor November 05, 2022 4:51pm Substance/Street Drug Use No October 142022 4:51pm Substance Use Treatment No October 4:51pm Smoking Status Never smoker November 05, 2022 4:51pm Additional Data Assigned Sex Female Problems Active [...] 300 MG PO TWICE A DAY 20 [facility] [place] 12:00am Septem 2020 9:07pm Tramadol Disconti nued 50 MG PO Q8H 10 [facility] [place] [facility] Montelukast Active 10 MG PO DAILY 2021 1:00am Omeprazole Disconti nued 20 MG PO DAILY 2021 1:00am August 07, 2021 12:12p m Cephalexin Disconti nued 500 MG PO FOUR TIMES DAILY 20 2021 1:00am August 07, 2021 12:12p m Tramadol (Ultram) 50 mg Tablet Disconti nued 50 MG PO Q6H 7 uar y 2021 1:00am August 07, 2021 12:12p [...] aerosol inhaler Active 2 INH INH DAILY Novembe r 2020 12:00am Ondansetron Hcl (Zofran) 4 [...] 2021 1:00pm 4.91 1000/mm3 4.8-10.8 [facility] [id number] [address] [address] White Blood Count 2022 8:10pm 5.41 1000/mm3 4.8-10.8 [facility] [id number] [address] [address] White Blood Count April 06, 2022 11:27am 3.71 1000/mm3 4.8-10.8 [facility] [id number] [address] [address] White Blood Count August 28, 2022 5:10pm 5.35 1000/mm3 4.8-10.8 [facility] [id number] [address] [address] White Blood Count September 17, 2022 12:25am 4.23 1000/mm3 4.8-10.8 [facility] [id number] [address] [address] White Blood Count October 16, 2022 4:04pm 4.29 1000/mm3 4.8-10.8 [facility] [id number] [address] [address] White Blood Count October 23, 2022 9:40pm 3.88 1000/mm3 4.8-10.8 [facility] [id number] [address] [address] White Blood Count November 05, 2022 5:10pm 4.42 1000/mm3 4.8-10.8 [facility] [id number] [address] [address] Red Blood Count November 10, 2021 1:00pm 3.22 M/mm3 4.20-5.40 [facility] [id number] [address] [address] Red Blood Count 2022 8:10pm 4.00 M/mm3 4.20-5.40 [facility] [id number] [address] [address] Red Blood Count April 06, 2022 11:27am 3.66 M/mm3 4.20-5.40 [facility] [id number] [address] [address] Red Blood Count August 28, 2022 5:10pm 4.13 M/mm3 4.20-5.40 [facility] [id number] [address] [address] Red Blood Count September 17, 2022 12:25am 3.54 M/mm3 4.20-5.40 [facility] [id number] [address] [address] Red Blood Count October 16, 2022 4:04pm 4.38 M/mm3 4.20-5.40 [facility] [id number] [address] [address] Red Blood Count October 23, 2022 9:40pm 3.77 M/mm3 4.20-5.40 [facility] [id number] [address] [address] Red Blood Count November 05, 2022 5:10pm 4.08 M/mm3 4.20-5.40 [facility] [id number] [address] [address] Hemoglobin November 10, 2021 1:00pm 8.4 g/dL 12.0-16.0 [facility] [id number] [address] [address] Hemoglobin 2022 8:10pm 8.6 g/dL 12.0-16.0 [facility] [id number] [address] [address] Hemoglobin April 06, 2022 11:27am 8.5 g/dL 12.0-16.0 [facility] [id number] [address] [address] Hemoglobin August 28, 2022 5:10pm 9.2 g/dL 12.0-16.0 [facility] [id number] [address] [address] Hemoglobin September 17, 2022 12:25am 7.7 g/dL 12.0-16.0 [facility] [id number] [address] [address] Hemoglobin October 16, 2022 4:04pm 9.9 g/dL 12.0-16.0 [facility] [id number] [address] [address] Hemoglobin October 24, 2022 1:00am 7.6 g/dL 12.0-16.0 [facility] [id number] [address] [address] Hemoglobin November 05, 2022 5:10pm 9.5 g/dL 12.0-16.0 [facility] [id number] [address] [address] Hematocrit November 10, 2021 1:00pm 26.8 % 37-47 [facility] [id number] [address] [address] Hematocrit 2022 8:10pm 29.3 % 37-47 [facility] [id number] [address] [place] [address] Hematocrit April 06, 2022 11:27am 27.6 % 37-47 [facility] [id number] [address] [address] Hematocrit August 28, 2022 5:10pm 30.8 % 37-47 [facility] [id number] [address] [address] Hematocrit September 17, 2022 12:25am 25.8 % 37-47 [facility] [id number] [address] [address] Hematocrit October 16, 2022 4:04pm 32.6 % 37-47 [facility] [id number] [address] [address] Hematocrit October 24, 2022 1:00am 25.6 % 37-47 [facility] [id number] [address] [address] Hematocrit November 05, 2022 5:10pm 31.3 % 37-47 [facility] [id number] [address] [address] Mean Corpuscular Volume November 10, 2021 1:00pm 83.2 fL 81.0-99.0 [facility] [id number] [address] [address] Mean Corpuscular Volume 2022 8:10pm 73.3 fL 81.0-99.0 [facility] [id number] [address] [address] Mean Corpuscular Volume April 06, 2022 11:27am 75.4 fL 81.0-99.0 [facility] [id number] [address] [address] Mean Corpuscular Volume August 28, 2022 5:10pm 74.6 fL 81.0-99.0 [facility] [id number] [address] [place] [address] Mean Corpuscular Volume September 17, 2022 12:25am 72.9 fL 81.0-99.0 [facility] [id number] [address] [address] Mean Corpuscular Volume October 16, 2022 4:04pm 74.4 fL 81.0-99.0 [facility] [id number] [address] [address] Mean Corpuscular Volume October 23, 2022 9:40pm 76.1 fL 81.0-99.0 [facility] [id number] [address] [address] Mean Corpuscular Volume November 05, 2022 5:10pm 76.7 fL 81.0-99.0 [facility] [id number] [address] [address] Mean Corpuscular Hemoglobin November 10, 2021 1:00pm 26.1 pg 27-31 [facility] [id number] [address] [address] Mean Corpuscular Hemoglobin 2022 8:10pm 21.5 pg 27-31 [facility] [id number] [address] [address] Mean Corpuscular Hemoglobin April 06, 2022 11:27am 23.2 pg 27-31 [facility] [id number] [address] [address] Mean Corpuscular Hemoglobin August 28, 2022 5:10pm 22.3 pg 27-31 [facility] [id number] [address] [address] Mean Corpuscular Hemoglobin September 17, 2022 12:25am 21.8 pg 27-31 [facility] [id number] [address] [address] Mean Corpuscular Hemoglobin October 16, 2022 4:04pm 22.6 pg 27-31 [facility] [id number] [address] [address] Mean Corpuscular Hemoglobin October 23, 2022 9:40pm 22.8 pg 27-31 [facility] [id number] [address] [address] Mean Corpuscular Hemoglobin November 05, 2022 5:10pm 23.3 pg 27-31 [facility] [id number] [address] [address] Mean Corpuscular Hemoglobin Concent November 10, 2021 1:00pm 31.3 g/dL 33-37 [facility] [id number] [address] [address] Mean Corpuscular Hemoglobin Concent 2022 8:10pm 29.4 g/dL 33-37 [facility] [id number] [address] [address] Mean Corpuscular Hemoglobin Concent April 06, 2022 11:27am 30.8 g/dL 33-37 [facility] [id number] [address] [address] Mean Corpuscular Hemoglobin Concent August 28, 2022 5:10pm 29.9 g/dL 33-37 [facility] [id number] [address] [address] Mean Corpuscular Hemoglobin Concent September 17, 2022 12:25am 29.8 g/dL 33-37 [facility] [id number] [address] [address] Mean Corpuscular Hemoglobin Concent October 16, 2022 4:04pm 30.4 g/dL 33-37 [facility] [id number] [address] [address] Mean Corpuscular Hemoglobin Concent October 23, 2022 9:40pm 30.0 g/dL 33-37 [facility] [id number] [address] [address] Mean Corpuscular Hemoglobin Concent November 05, 2022 5:10pm 30.4 g/dL 33-37 [facility] [id number] [address] [address] Red Cell Distribution Width November 10, 2021 1:00pm 14.4 % 11.5-14.5 [facility] [id number] [address] [address] Red Cell Distribution Width 2022 8:10pm 15.2 % 11.5-14.5 [facility] [id number] [address] [address] Red Cell Distribution Width April 06, 2022 11:27am 16.4 % 11.5-14.5 [facility] [id number] [address] [address] Red Cell Distribution Width August 28, 2022 5:10pm 14.2 % 11.5-14.5 [facility] [id number] [address] [address] Red Cell Distribution Width September 17, 2022 12:25am 14.9 % 11.5-14.5 [facility] [id number] [address] [address] Red Cell Distribution Width October 16, 2022 4:04pm 18.1 % 11.5-14.5 [facility] [id number] [address] [address] Red Cell Distribution Width October 23, 2022 9:40pm 17.5 % 11.5-14.5 [facility] [id number] [address] [address] Red Cell Distribution Width November 05, 2022 5:10pm 17.2 % 11.5-14.5 [facility] [id number] [address] [address] Platelet Count November 10, 2021 1:00pm 282 1000/mm3 140-440 [facility] [id number] [address] [address] Platelet Count 2022 8:10pm 217 1000/mm3 140-440 [facility] [id number] [address] [address] Platelet Count April 06, 2022 11:27am 174 1000/mm3 140-440 [facility] [id number] [address] [address] Platelet Count August 28, 2022 5:10pm 216 1000/mm3 140-440 [facility] [id number] [address] [address] Platelet Count September 17, 2022 12:25am 198 1000/mm3 140-440 [facility] [id number] [address] [address] Platelet Count October 16, 2022 4:04pm 291 1000/mm3 140-440 [facility] [id number] [address] [address] Platelet Count October 23, 2022 9:40pm 244 1000/mm3 140-440 [facility] [id number] [address] [address] Platelet Count November 05, 2022 5:10pm 201 1000/mm3 140-440 [facility] [id number] [address] [address] Mean Platelet Volume November 10, 2021 1:00pm 10.5 fL 7.4-10.4 [facility] [id number] [address] [address] Mean Platelet Volume 2022 8:10pm 12.9 fL 7.4-10.4 [facility] [id number] [address] [address] Mean Platelet Volume August 28, 2022 5:10pm 10.4 fL 7.4-10.4 [facility] [id number] [address] [address] Mean Platelet Volume September 17, 2022 12:25am 11.6 fL 7.4-10.4 [facility] [id number] [address] [address] Mean Platelet Volume October 16, 2022 4:04pm 10.7 fL 7.4-10.4 [facility] [id number] [address] [address] Mean Platelet Volume October 23, 2022 9:40pm 11.2 fL 7.4-10.4 [facility] [id number] [address] [address] Neutrophils (%) (Auto) November 10, 2021 1:00pm 67.8 % 40.0-72.0 [facility] [id number] [address] [address] Neutrophils (%) (Auto) 2022 8:10pm 58.0 % 40.0-72.0 [facility] [id number] [address] [address] Neutrophils (%) (Auto) April 06, 2022 11:27am 55.7 % 40.0-72.0 [facility] [id number] [address] [place] [address] Neutrophils (%) (Auto) August 28, 2022 5:10pm 68.4 % 40.0-72.0 [facility] [id number] [address] [address] Neutrophils (%) (Auto) September 17, 2022 12:25am 57.7 % 40.0-72.0 [facility] [id number] [address] [address] Neutrophils (%) (Auto) October 16, 2022 4:04pm 56.8 % 40.0-72.0 [facility] [id number] [address] [address] Neutrophils (%) (Auto) October 23, 2022 9:40pm 56.1 % 40.0-72.0 [facility] [id number] [address] [address] Neutrophils (%) (Auto) November 05, 2022 5:10pm 59.2 % 40.0-72.0 [facility] [id number] [address] [address] Lymphocytes (%) (Auto) November 10, 2021 1:00pm 23.4 % 17-45 MA[facility] [id number] [address] [address] Lymphocytes (%) (Auto) 2022 8:10pm 31.4 % 17-45 MA[facility] [id number] [address] [address] Lymphocytes (%) (Auto) April 06, 2022 11:27am 34.0 % 17-45 MA[facility] [id number] [address] [address] Lymphocytes (%) (Auto) August 28, 2022 5:10pm 24.1 % 17-45 [facility] [id number] [address] [address] Lymphocytes (%) (Auto) September 17, 2022 12:25am 32.4 % 17-45 [facility] [id number] [address] [address] Lymphocytes (%) (Auto) October 16, 2022 4:04pm 35.0 % 17-45 [facility] [id number] [address] [address] Lymphocytes (%) (Auto) October 23, 2022 9:40pm 32.0 % 17-45 [facility] [id number] [address] [address] Lymphocytes (%) (Auto) November 05, 2022 5:10pm 31.2 % 17-45 MA[facility] [id number] [address] [address] Monocytes (%) (Auto) November 10, 2021 1:00pm 4.7 % 3-11 [facility] [id number] [address] [address] Monocytes (%) (Auto) 2022 8:10pm 7.6 % 3-11 [facility] [id number] [address] [address] Monocytes (%) (Auto) April 06, 2022 11:27am 6.5 % 3-11 [facility] [id number] [address] [address] Monocytes (%) (Auto) August 28, 2022 5:10pm 5.0 % 3-11 [facility] [id number] [address] [address] Monocytes (%) (Auto) September 17, 2022 12:25am 6.9 % 3-11 [facility] [id number] [address] [address] Monocytes (%) (Auto) October 16, 2022 4:04pm 5.6 % 3-11 [facility] [id number] [address] [place] [address] Monocytes (%) (Auto) October 23, 2022 9:40pm 7.5 % 3-11 [facility] [id number] [address] [place] [address] Monocytes (%) (Auto) November 05, 2022 5:10pm 6.3 % 3-11 [facility] [id number] [address] [place] [address] Eosinophils (%) (Auto) November 10, 2021 1:00pm 3.1 % 0-3 [facility] [id number] [address] [address] Eosinophils (%) (Auto) 2022 8:10pm 1.7 % 0-3 [facility] [id number] [address] [address] Eosinophils (%) (Auto) April 06, 2022 11:27am 2.4 % 0-3 [facility] [id number] [address] [address] Eosinophils (%) (Auto) August 28, 2022 5:10pm 1.5 % 0-3 [facility] [id number] [address] [address] Eosinophils (%) (Auto) September 17, 2022 12:25am 1.9 % 0-3 [facility] [id number] [address] [address] Eosinophils (%) (Auto) October 16, 2022 4:04pm 1.2 % 0-3 [facility] [id number] [address] [address] Eosinophils (%) (Auto) October 23, 2022 9:40pm 3.1 % 0-3 [facility] [id number] [address] [address] Eosinophils (%) (Auto) November 05, 2022 5:10pm 2.0 % 0-3 [facility] [id number] [address] [address] Basophils (%) (Auto) November 10, 2021 1:00pm 0.6 % 0-1 [facility] [id number] [address] [address] Basophils (%) (Auto) 2022 8:10pm 1.1 % 0-1 [facility] [id number] [address] [address] Basophils (%) (Auto) April 06, 2022 11:27am 1.1 % 0-1 [facility] [id number] [address] [address] Basophils (%) (Auto) August 28, 2022 5:10pm 0.6 % 0-1 [facility] [id number] [address] [address] Basophils (%) (Auto) September 17, 2022 12:25am 0.9 % 0-1 [facility] [id number] [address] [address] Basophils (%) (Auto) October 16, 2022 4:04pm 1.2 % 0-1 [facility] [id number] [address] [address] Basophils (%) (Auto) October 23, 2022 9:40pm 1.0 % 0-1 [facility] [id number] [address] [address] Basophils (%) (Auto) November 05, 2022 5:10pm 1.1 % 0-1 [facility] [id number] [address] [address] Immature Granulocyte % (Auto) November 10, 2021 1:00pm 0.4 % 0-1 [facility] [id number] [address] [address] Immature Granulocyte % (Auto) 2022 8:10pm 0.2 % 0-1 [facility] [id number] [address] [address] Immature Granulocyte % (Auto) April 06, 2022 11:27am 0.3 % 0-1 [facility] [id number] [address] [address] Immature Granulocyte % (Auto) August 28, 2022 5:10pm 0.4 % 0-1 [facility] [id number] [address] [address] Immature Granulocyte % (Auto) September 17, 2022 12:25am 0.2 % 0-1 [facility] [id number] [address] [address] Immature Granulocyte % (Auto) October 16, 2022 4:04pm 0.2 % 0-1 [facility] [id number] [address] [address] Immature Granulocyte % (Auto) October 23, 2022 9:40pm 0.3 % 0-1 [facility] [id number] [address] [address] Immature Granulocyte % (Auto) November 05, 2022 5:10pm 0.2 % 0-1 [facility] [id number] [address] [address] Neutrophils # (Auto) November 10, 2021 1:00pm 3.33 1000/mm3 1.4-6.5 [facility] [id number] [address] [address] Neutrophils # (Auto) 2022 8:10pm 3.14 1000/mm3 1.4-6.5 [facility] [id number] [address] [address] Neutrophils # (Auto) April 06, 2022 11:27am 2.07 1000/mm3 1.4-6.5 [facility] [id number] [address] [address] Neutrophils # (Auto) August 28, 2022 5:10pm 3.66 1000/mm3 1.4-6.5 [facility] [id number] [address] [address] Neutrophils # (Auto) September 17, 2022 12:25am 2.44 1000/mm3 1.4-6.5 [facility] [id number] [address] [address] Neutrophils # (Auto) October 16, 2022 4:04pm 2.44 1000/mm3 1.4-6.5 [facility] [id number] [address] [address] Neutrophils # (Auto) October 23, 2022 9:40pm 2.18 1000/mm3 1.4-6.5 [facility] [id number] [address] [address] Neutrophils # (Auto) November 05, 2022 5:10pm 2.61 1000/mm3 1.4-6.5 [facility] [id number] [address] [address] Lymphocytes # (Auto) November 10, 2021 1:00pm 1.15 1000/mm3 1.2-3.4 [facility] [id number] [address] [address] Lymphocytes # (Auto) 2022 8:10pm 1.70 1000/mm3 1.2-3.4 [facility] [id number] [address] [address] Lymphocytes # (Auto) April 06, 2022 11:27am 1.26 1000/mm3 1.2-3.4 [facility] [id number] [address] [address] Lymphocytes # (Auto) August 28, 2022 5:10pm 1.29 1000/mm3 1.2-3.4 [facility] [id number] [address] [address] Lymphocytes # (Auto) September 17, 2022 12:25am 1.37 1000/mm3 1.2-3.4 [facility] [id number] [address] [address] Lymphocytes # (Auto) October 16, 2022 4:04pm 1.50 1000/mm3 1.2-3.4 [facility] [id number] [address] [address] Lymphocytes # (Auto) October 23, 2022 9:40pm 1.24 1000/mm3 1.2-3.4 [facility] [id number] [address] [address] Lymphocytes # (Auto) November 05, 2022 5:10pm 1.38 1000/mm3 1.2-3.4 [facility] [id number] [address] [address] Monocytes # (Auto) November 10, 2021 1:00pm 0.23 1000/mm3 0.0-0.8 [facility] [id number] [address] [address] Monocytes # (Auto) 2022 8:10pm 0.41 1000/mm3 0.0-0.8 [facility] [id number] [address] [address] Monocytes # (Auto) April 06, 2022 11:27am 0.24 1000/mm3 0.0-0.8 [facility] [id number] [address] [address] Monocytes # (Auto) August 28, 2022 5:10pm 0.27 1000/mm3 0.0-0.8 [facility] [id number] [address] [address] Monocytes # (Auto) September 17, 2022 12:25am 0.29 1000/mm3 0.0-0.8 [facility] [id number] [address] [address] Monocytes # (Auto) October 16, 2022 4:04pm 0.24 1000/mm3 0.0-0.8 [facility] [id number] [address] [address] Monocytes # (Auto) October 23, 2022 9:40pm 0.29 1000/mm3 0.0-0.8 [facility] [id number] [address] [address] Monocytes # (Auto) November 05, 2022 5:10pm 0.28 1000/mm3 0.0-0.8 [facility] [id number] [address] [address] Eosinophils # (Auto) November 10, 2021 1:00pm 0.15 1000/mm3 0.0-0.7 [facility] [id number] [address] [address] Eosinophils # (Auto) 2022 8:10pm 0.09 1000/mm3 0.0-0.7 [facility] [id number] [address] [address] Eosinophils # (Auto) April 06, 2022 11:27am 0.09 1000/mm3 0.0-0.7 [facility] [id number] [address] [address] Eosinophils # (Auto) August 28, 2022 5:10pm 0.08 1000/mm3 0.0-0.7 [facility] [id number] [address] [address] Eosinophils # (Auto) September 17, 2022 12:25am 0.08 1000/mm3 0.0-0.7 [facility] [id number] [address] [address] Eosinophils # (Auto) October 16, 2022 4:04pm 0.05 1000/mm3 0.0-0.7 [facility] [id number] [address] [address] Eosinophils # (Auto) October 23, 2022 9:40pm 0.12 1000/mm3 0.0-0.7 [facility] [id number] [address] [address] Eosinophils # (Auto) November 05, 2022 5:10pm 0.09 1000/mm3 0.0-0.7 [facility] [id number] [address] [address] Basophils # (Auto) November 10, 2021 1:00pm 0.03 1000/mm3 0.0-0.1 [facility] [id number] [address] [address] Basophils # (Auto) 2022 8:10pm 0.06 1000/mm3 0.0-0.1 [facility] [id number] [address] [address] Basophils # (Auto) April 06, 2022 11:27am 0.04 1000/mm3 0.0-0.1 [facility] [id number] [address] [address] Basophils # (Auto) August 28, 2022 5:10pm 0.03 1000/mm3 0.0-0.1 [facility] [id number] [address] [address] Basophils # (Auto) September 17, 2022 12:25am 0.04 1000/mm3 0.0-0.1 [facility] [id number] [address] [address] Basophils # (Auto) October 16, 2022 4:04pm 0.05 1000/mm3 0.0-0.1 [facility] [id number] [address] [address] Basophils # (Auto) October 23, 2022 9:40pm 0.04 1000/mm3 0.0-0.1 [facility] [id number] [address] [address] Basophils # (Auto) November 05, 2022 5:10pm 0.05 1000/mm3 0.0-0.1 [facility] [id number] [address] [address] Absolute Immature Granulocyte (auto November 10, 2021 1:00pm 0.0 0-1 [facility] [id number] [address] [address] Absolute Immature Granulocyte (auto 2022 8:10pm 0.0 0-1 [facility] [id number] [address] [address] Absolute Immature Granulocyte (auto April 06, 2022 11:27am 0.0 0-1 [facility] [id number] [address] [address] Absolute Immature Granulocyte (auto August 28, 2022 5:10pm 0.0 0-1 [facility] [id number] [address] [address] Absolute Immature Granulocyte (auto September 17, 2022 12:25am 0.0 0-1 [facility] [id number] [address] [address] Absolute Immature Granulocyte (auto October 16, 2022 4:04pm 0.0 0-1 [facility] [id number] [address] [address] Absolute Immature Granulocyte (auto October 23, 2022 9:40pm 0.0 0-1 [facility] [id number] [address] [address] Absolute Immature Granulocyte (auto November 05, 2022 5:10pm 0.0 0-1 [facility] [id number] [address] [address] Differential Method November 10, 2021 1:00pm Automated [facility] [id number] [address] [address] Differential Method 2022 8:10pm Automated [facility] [id number] [address] [address] Differential Method April 06, 2022 11:27am Automated [facility] [id number] [address] [address] Differential Method August 28, 2022 5:10pm Automated [facility] [id number] [address] [address] Differential Method September 17, 2022 12:25am Automated [facility] [id number] [address] [address] Differential Method October 16, 2022 4:04pm Automated [facility] [id number] [address] [address] Differential Method October 23, 2022 9:40pm Automated [facility] [id number] [address] [address] Differential Method November 05, 2022 5:10pm Automated [facility] [id number] [address] [address] Erythrocyte Sedimentatio n Rate August 28, 2022 5:10pm 10 mm/hr 0-15 [facility] [id number] [address] [address] Serum Test, Qualitative April 06, 2022 11:27am Negative NEGATIVE [facility] [id number] [address] [address] Sodium Level November 10, 2021 1:00pm 139 mmol/L 137-145 [facility] [id number] [address] [address] Sodium Level 2022 8:10pm 140 mmol/L 137-145 [facility] [id number] [address] [address] Sodium Level April 06, 2022 11:27am 142 mmol/L 137-145 [facility] [id number] [address] [address] Potassium Level November 10, 2021 1:00pm 4.2 mmol/L 3.6-5.0 [facility] [id number] [address] [address] Potassium Level 2022 8:10pm 3.7 mmol/L 3.6-5.0 [facility] [id number] [address] [address] Potassium Level April 06, 2022 11:27am 3.7 mmol/L 3.6-5.0 [facility] [id number] [address] [address] Chloride Level November 10, 2021 1:00pm 104 mmol/L 98-107 [facility] [id number] [address] [address] Chloride Level 2022 8:10pm 102 mmol/L 98-107 [facility] [id number] [address] [address] Chloride Level April 06, 2022 11:27am 106 mmol/L 98-107 [facility] [id number] [address] [address] Carbon Dioxide Level November 10, 2021 1:00pm 24 mmol/L 22-30 [facility] [id number] [address] [address] Carbon Dioxide Level 2022 8:10pm 30 mmol/L 22-30 [facility] [id number] [address] [address] Carbon Dioxide Level April 06, 2022 11:27am 27 mmol/L 22-30 [facility] [id number] [address] [address] Anion Gap November 10, 2021 1:00pm 11 7-16 [facility] [id number] [address] [address] Anion Gap 2022 8:10pm 8 7-16 [facility] [id number] [address] [address] Anion Gap April 06, 2022 11:27am 9 7-16 [facility] [id number] [address] [address] Blood Urea Nitrogen November 10, 2021 1:00pm 7 mg/dL 7-17 [facility] [id number] [address] [address] Blood Urea Nitrogen 2022 8:10pm 8 mg/dL 7-17 [facility] [id number] [address] [address] Blood Urea Nitrogen April 06, 2022 11:27am 10 mg/dL 7-17 [facility] [id number] [address] [address] Creatinine November 10, 2021 1:00pm 0.76 mg/dL 0.52-1.04 [facility] [id number] [address] [address] Creatinine 2022 8:10pm 0.66 mg/dL 0.52-1.04 [facility] [id number] [address] [address] Creatinine April 06, 2022 11:27am 0.73 mg/dL 0.52-1.04 [facility] [id number] [address] [address] Glomerular Filtration Rate Calc November 10, 2021 1:00pm > 60 mL/min >60.0 [facility] [id number] [address] [address] Glomerular Filtration Rate Calc 2022 8:10pm > 60 mL/min >60.0 [facility] [id number] [address] [address] Glomerular Filtration Rate Calc April 06, 2022 11:27am > 60 mL/min >60.0 [facility] [id number] [address] [address] Glucose Level November 10, 2021 1:00pm 95 mg/dL 70-100 [facility] [id number] [address] [address] Glucose Level 2022 8:10pm 97 mg/dL 70-100 [facility] [id number] [address] [address] Glucose Level April 06, 2022 11:27am 90 mg/dL 70-100 [facility] [id number] [address] [address] Calcium Level November 10, 2021 1:00pm 9.6 mg/dL 8.4-10.2 [facility] [id number] [address] [address] Calcium Level 2022 8:10pm 9.2 mg/dL 8.4-10.2 [facility] [id number] [address] [address] Calcium Level April 06, 2022 11:27am 8.9 mg/dL 8.4-10.2 [facility] [id number] [address] [id number] Calcium Adjusted for Albumin April 06, 2022 11:27am 8.7 mg/dL 8.4-10.2 [facility] [id number] [address] [address] Total Bilirubin April 06, 2022 11:27am 0.5 mg/dL 0.2-1.3 [facility] [id number] [address] [address] Aspartate Amino Transf (AST/SGOT) April 06, 2022 11:27am 46 U/L 14-36 [facility] [id number] [address] [address] Alanine Aminotransfe rase (ALT/SGPT) April 06, 2022 11:27am 35 U/L <35 [facility] [id number] [address] [address] Total Protein April 06, 2022 11:27am 7.4 g/dL 6.3-8.2 [facility] [id number] [address] [address] Albumin April 06, 2022 11:27am 4.6 g/dL 3.5-5.0 [facility] [id number] [address] [address] Alkaline Phosphatase April 06, 2022 11:27am 52 U/L 38-126 [facility] [id number] [address] [address] Lipase April 06, 2022 11:27am 37 U/L 23-300 [facility] [id number] [address] [address] Sodium Level August 28, 2022 4:05pm 137 mmol/L 137-145 [facility] [id number] [address] [address] Sodium Level September 17, 2022 12:25am 140 mmol/L 137-145 [facility] [id number] [address] [address] Sodium Level October 16, 2022 4:04pm 139 mmol/L 137-145 [facility] [id number] [address] [address] Sodium Level October 23, 2022 9:40pm 141 mmol/L 137-145 [facility] [id number] [address] [address] Sodium Level November 05, 2022 5:10pm 140 mmol/L 137-145 [facility] [id number] [address] [address] Potassium Level August 28, 2022 4:05pm 3.9 mmol/L 3.6-5.0 [facility] [id number] [address] [address] Potassium Level September 17, 2022 12:25am 3.9 mmol/L 3.6-5.0 [facility] [id number] [address] [address] Potassium Level October 16, 2022 4:04pm 3.4 mmol/L 3.6-5.0 [facility] [id number] [address] [address] Potassium Level October 23, 2022 9:40pm 3.7 mmol/L 3.6-5.0 [facility] [id number] [address] [address] Potassium Level November 05, 2022 5:10pm 4.1 mmol/L 3.6-5.0 [facility] [id number] [address] [address] Chloride Level August 28, 2022 4:05pm 104 mmol/L 98-107 [facility] [id number] [address] [address] Chloride Level September 17, 2022 12:25am 106 mmol/L 98-107 [facility] [id number] [address] [address] Chloride Level October 16, 2022 4:04pm 101 mmol/L 98-107 [facility] [id number] [address] [address] Chloride Level Myranda 11th, 2023 9:40pm 105 mmol/L 98-107 [facility] [id number] [address] [address] Chloride Level November 05, 2022 5:10pm 104 mmol/L 98-107 [facility] [id number] [address] [address] Carbon Dioxide Level August 28, 2022 4:05pm 22 mmol/L 22-30 [facility] [id number] [address] [address] Carbon Dioxide Level September 17, 2022 12:25am 23 mmol/L 22-30 [facility] [id number] [address] [address] Carbon Dioxide Level October 16, 2022 4:04pm 23 mmol/L 22-30 [facility] [id number] [address] [address] Carbon Dioxide Level October 23, 2022 9:40pm 27 mmol/L 22-30 [facility] [id number] [address] [address] Carbon Dioxide Level November 05, 2022 5:10pm 25 mmol/L 22-30 [facility] [id number] [address] [address] Anion Gap August 28, 2022 4:05pm 11 7-16 [facility] [id number] [address] [address] Anion Gap September 17, 2022 12:25am 11 7-16 [facility] [id number] [address] [address] Anion Gap October 16, 2022 4:04pm 15 7-16 [facility] [id number] [address] [address] Anion Gap October 23, 2022 9:40pm 9 7-16 [facility] [id number] [address] [address] Anion Gap November 05, 2022 5:10pm 11 7-16 [facility] [id number] [address] [address] Blood Urea Nitrogen August 28, 2022 4:05pm 10 mg/dL 7-17 [facility] [id number] [address] [address] Blood Urea Nitrogen September 17, 2022 12:25am 10 mg/dL 7-17 [facility] [id number] [address] [address] Blood Urea Nitrogen October 16, 2022 4:04pm 9 mg/dL 7-17 [facility] [id number] [address] [address] Blood Urea Nitrogen October 23, 2022 9:40pm 8 mg/dL 7-17 [facility] [id number] [address] [address] Blood Urea Nitrogen November 05, 2022 5:10pm 10 mg/dL 7-17 [facility] [id number] [address] [address] Creatinine August 28, 2022 4:05pm 0.58 mg/dL 0.52-1.04 [facility] [id number] [address] [address] Creatinine September 17, 2022 12:25am 0.60 mg/dL 0.52-1.04 [facility] [id number] [address] [address] Creatinine October 16, 2022 4:04pm 0.90 mg/dL 0.52-1.04 [facility] [id number] [address] [address] Creatinine October 23, 2022 9:40pm 0.80 mg/dL 0.52-1.04 [facility] [id number] [address] [address] Creatinine November 05, 2022 5:10pm 0.80 mg/dL 0.52-1.04 [facility] [id number] [address] [address] Glomerular Filtration Rate Calc August 28, 2022 4:05pm > 60 mL/min >60.0 [facility] [id number] [address] [address] Glomerular Filtration Rate Calc September 17, 2022 12:25am 129 mL/min >60.0 [facility] [id number] [address] [address] Glomerular Filtration Rate Calc October 16, 2022 4:04pm 92 mL/min >60.0 [facility] [id number] [address] [address] Glomerular Filtration Rate Calc October 23, 2022 9:40pm 106 mL/min >60.0 [facility] [id number] [address] [address] Glomerular Filtration Rate Calc November 05, 2022 5:10pm 106 mL/min >60.0 [facility] [id number] [address] [address] Glucose Level August 28, 2022 4:05pm 83 mg/dL 70-100 [facility] [id number] [address] [address] Glucose Level September 17, 2022 12:25am 91 mg/dL 70-100 [facility] [id number] [address] [address] Glucose Level October 16, 2022 4:04pm 92 mg/dL 70-100 [facility] [id number] [address] [address] Glucose Level October 23, 2022 9:40pm 93 mg/dL 70-100 [facility] [id number] [address] [address] Glucose Level November 05, 2022 5:10pm 87 mg/dL 70-100 [facility] [id number] [address] [address] Calcium Level August 28, 2022 4:05pm 9.1 mg/dL 8.4-10.2 [facility] [id number] [address] [address] Calcium Level September 17, 2022 12:25am 8.9 mg/dL 8.4-10.2 [facility] [id number] [address] [address] Calcium Level October 16, 2022 4:04pm 9.9 mg/dL 8.4-10.2 [facility] [id number] [address] [address] Calcium Level October 23, 2022 9:40pm 8.6 mg/dL 8.4-10.2 [facility] [id number] [address] [address] Calcium Level November 05, 2022 5:10pm 8.7 mg/dL 8.4-10.2 [facility] [id number] [address] [address] Calcium Adjusted for Albumin August 28, 2022 4:05pm 8.9 mg/dL 8.4-10.2 [facility] [id number] [address] [address] Calcium Adjusted for Albumin September 17, 2022 12:25am 8.8 mg/dL 8.4-10.2 [facility] [id number] [address] [address] Calcium Adjusted for Albumin October 16, 2022 4:04pm 9.2 mg/dL 8.4-10.2 [facility] [id number] [address] [address] Calcium Adjusted for Albumin November 05, 2022 5:10pm 8.7 mg/dL 8.4-10.2 [facility] [id number] [address] [address] Albumin August 28, 2022 4:05pm 4.5 g/dL 3.5-5.0 [facility] [id number] [address] [address] Albumin September 17, 2022 12:25am 4.4 g/dL 3.5-5.0 [facility] [id number] [address] [address] Albumin October 16, 2022 4:04pm 5.2 g/dL 3.5-5.0 [facility] [id number] [address] [address] Albumin November 05, 2022 5:10pm 4.3 g/dL 3.5-5.0 [facility] [id number] [address] [address] Total Protein August 28, 2022 4:05pm 7.3 g/dL 6.3-8.2 [facility] [id number] [address] [address] Total Protein September 17, 2022 12:25am 7.0 g/dL 6.3-8.2 [facility] [id number] [address] [address] Total Protein October 16, 2022 4:04pm 9.6 g/dL 6.3-8.2 [facility] [id number] [address] [address] Total Protein November 05, 2022 5:10pm 7.2 g/dL 6.3-8.2 [facility] [id number] [address] [address] Alkaline Phosphatase August 28, 2022 4:05pm 56 U/L 38-126 [facility] [id number] [address] [address] Alkaline Phosphatase September 17, 2022 12:25am 41 U/L 38-126 [facility] [id number] [address] [address] Alkaline Phosphatase October 16, 2022 4:04pm 67 U/L 38-126 [facility] [id number] [address] [address] Alkaline Phosphatase November 05, 2022 5:10pm 52 U/L 38-126 [facility] [id number] [address] [address] Alanine Aminotransfe rase (ALT/SGPT) August 28, 2022 4:05pm 33 U/L <35 Per [facility]o Clinical Diagnostic's notification dated July 18, 2022, note that ascorbic acid concentrations of 100 mg/dL may produce a negative bias greater than 12.5%. [facility] [id number] [address] [address] Alanine Aminotransfe rase (ALT/SGPT) September 17, 2022 12:25am 23 U/L <35 Per [facility] Clinical Diagnostic's notification dated July 18, 2022, note that ascorbic acid concentrations of 100 mg/dL may produce a negative bias greater than 12.5%. [facility] [id number] [address] [address] Alanine Aminotransfe rase (ALT/SGPT) October 16, 2022 4:04pm 38 U/L <35 Per Ortho Clinical Diagnostic's notification dated July 18, 2022, note that ascorbic acid concentrations of 100 mg/dL may produce a negative bias greater than 12.5%. MA[facility] [id number] [address] [address] Alanine Aminotransfe rase (ALT/SGPT) November 05, 2022 5:10pm 24 U/L <35 Per Ortho Clinical Diagnostic's notification dated July 18, 2022, note that ascorbic acid concentrations of 100 mg/dL may produce a negative bias greater than 12.5%. MA[facility] [id number] [address] [address] Aspartate Amino Transf (AST/SGOT) August 28, 2022 4:05pm 36 U/L 14-36 MA[facility] [id number] [address] [address] Aspartate Amino Transf (AST/SGOT) September 17, 2022 12:25am 39 U/L 14-36 MA[facility] [id number] [address] [address] Aspartate Amino Transf (AST/SGOT) October 16, 2022 4:04pm 36 U/L 14-36 MA[facility] [id number] [address] [address] Aspartate Amino Transf (AST/SGOT) November 05, 2022 5:10pm 29 U/L 14-36 [facility] [id number] [address] [address] Total Bilirubin August 28, 2022 4:05pm 0.4 mg/dL 0.2-1.3 MA[facility] LAB [id number] [address] [address] Total Bilirubin September 17, 2022 12:25am 0.3 mg/dL 0.2-1.3 MAIN LAB [id number] [address] [address] Total Bilirubin October 16, 2022 4:04pm 0.6 mg/dL 0.2-1.3 MAIN LAB [id number] [address] [address] Total Bilirubin November 05, 2022 5:10pm 0.3 mg/dL 0.2-1.3 MAIN LAB [id number] [address] [address] Lipase September 17, 2022 12:25am 43 U/L 23-300 MA[facility] LAB [id number] [address] [address] Lipase November 05, 2022 5:10pm 55 U/L 23-300 MAIN LAB [id number] [address] [address] Lactic Acid Level October 16, 2022 4:04pm 1.0 mmol/L 0.7-2.1 MA[facility] LAB [id number] [address] [address] Lactic Acid Level October 23, 2022 9:40pm 1.2 mmol/L 0.7-2.1 MA[facility] [id number] [address] [address] Lactic Acid Level November 05, 2022 5:10pm 1.2 mmol/L 0.7-2.1 MAIN LAB [id number] [address] [address] C-Reactive Protein August 28, 2022 4:05pm 6.0 mg/L 5-10 MAIN LAB [id number] [address] [address] C-Reactive Protein October 16, 2022 4:04pm 8.2 mg/L 5-10 MAIN LAB [id number] [address] [address] Chlamydia trachomatis RNA August 28, 2022 7:50pm Negative Negative [facility] [id number] Neisseria gonorrhoeae RNA August 28, 2022 7:50pm Negative Negative [facility]/GC SOURCES: ENDOCERVICSourc e:CERVIXTest performed or referred by[address] [facility] [id number] Microbiology Results Procedure Source Result Collection Date/Time Result Date/Time Result Comment Performing Site Wet Prep Vaginal August 28, 2022 8:16pm MAIN LAB [id number] [address] [address] Diagnostic Imaging Reports Author Ascencion Mariee [facility] Authored September 17, 2022 3:57am Report Dictated Date/Time Dictated By Status Radiology Report September 17, 2022 3:57am George Dias completed [facility] CAT SCAN REPORT [...] By : Ascencion Mariee MD dd: 09/17/227 09/17/227 Author Ellen Bryan [facility] Authored October 16, 2022 7:24p m Report Dictated Date/Time Dictated By Status Radiology Report October 16, 2022 7:24pm Ellen Bryan MD completed [facility] CAT SCAN [...] Bryan MD dd: 10/16/22192310/16/221923 Author Stevo Douglass [facility] Authored October 23, 2022 11:4 8pm Report Dictated Date/Time Dictated By Status Radiology Report October 23, 2022 11:48pm Stevo Douglass MD completed [facility] CAT SCAN [...] to have surgery on Monday 11am at [facility]. PT C/O heavy vaginal bleeding since [...] 2 022 2:48pm Respiratory rate 18 /min 12-March 2:48pm Oxygen saturation by Pulse oximetry 99 [...] 24, 2022 5:35am Respiratory rate 16 /min -24 October 24, 2022 5:35am Oxygen saturation by [...] 67 mm[Hg] 50-85 November 05, 2022 7:30pm Advance Directives Advance Directive Response Recorded Date/ Time Does patient have an Advance Directive? No 2022 7:29pm Does patient have a COLST form? No 2022 7:29pm Insurance Providers Guarantor EDUARDO PAYAN Address [address] [place] [address] Contact Info. Home Phone: Payer Policy Id Coverage Id Subscriber's Name Subscriber Id Effective Date Expiration Date MIGUEL ANGEL MCNAMARA [id number] EDUARDO PAYAN [id number] SELF PAY Self N/A Encounters Encounter Location(s) Arrival/Admit Date [facility]) [facility] 11:22am November 10, 2021 5:45pm null [facility] Emergency [facility] 2022 5:23pm 2022 9:55pm [facility] 20, 2022 2:39pm February 20, 2022 3:42pm null Depart Emergency [facility] March 19, 2022 2:34pm March 19, 2022 4:09pm null Depart Emergency [facility] April 06, 2022 11:08am April 06, 2022 12:29pm null [facility] August 28, 2022 1:47pm August 28, 2022 10:20pm null Depart Emergency [facility] September 16, 2022 10:06pm September 17, 2022 4:32am null [facility] October 16, 2022 2:30pm October 16, 2022 9:24pm [facility] 23, 2022 7:18pm October 24, 2022 6:00am null [facility] November 05, 2022 4:18pm November 05, 2022 8:03pm null Functional Status Observation Response Date Recorded Living Situation Home November 05, 2022 8:02pm With Family November 05, 2022 8:02pm Mental Status Observation Response Date Recorded Comprehension [...] No Pcp Emely holloway MD Work Phone: [facility] [employer] [address] [facility] [address] [facility] Obstectrics and Gynecology Work Phone: [address] [facility] [address] No Pcp [facility] Gyne[facility] Oncology Work Phone: [address] [facility] [address] [facility] [address] No Pcp No Pcp Not Given Not Given No Pcp Ashlie Ramos Work Phone: [address] [place] [address] No Pcp Not Given Future Procedures Future procedure information is unavailable Future Medications Future medication information is unavailable Patient Instructions Chronic Pelvic Pain (DC) Abdominal Pain, Adult ED Heavy Periods (DC) Abdominal Pain, Adult ED Anemia Caused by Low Iron, A dult (DC) Abdominal Pain, Adult ED Hospital Discharge Instructions Additional Instructions Follow up with your team as planned Continue your home medications Please return to ED with increased pain, bleeding, dizziness, or other new or worsening symptoms as discussed Patient contact information: Primary phone:[phone] (Note to patient; Please let our registration staff know if this phone number is not correct so we can keep our systems accurate) *Regarding pending labs, you will only be called for positive/abnormal results. Negative/normal results can be found on the patient portal. Suicide Prevention: Dial [phone] for immediate access to crisis hotline.
--- OUTSIDE RECORDS SUMMARY | 2022-11-20 17:49 | XMS_ITS | Continuity of Care Document ---
Author Name Unknown Address [address] [place] [address] Phone [facility] Address [address] [place] [address] Phone Care Team Providers Care Gallery Or Museum Guide Name Role Phone PCP, of Choice Primary [...] Observa tion Never smoked tobacco (finding) January 07, 2021 5:26pm Observation Status Observation Response Date of Response Alcohol Use Yes January 07 5:26pm alcohol intake frequency a few times a month Dec us2020 5:26pm Alcohol type hard liquor January 07 5:26pm Substance/Street Drug Use Yes [address], 2021 5:26pm substance use type marijuana January 07, 2021 5:26pm Smoking Status Never smoker January 07 5:26pm Additional Data Assigned Sex Female Problems Active Problems Medical Problem Onset Date Status Abdominal pain Active Inactive/Resolved Problems Medical Problem Onset Date Status Gastritis Resolved Pain, dental Resolved Iron deficiency anemia Resolved Abdominal pain Resolved Medications Medication Status [...] MG PO DAILY October 15, 2020 2:57pm Hydrocodone- Acetaminophe n Discontin ued TABLET December 29, 2020 4:35pm January 07, 2021 5:04pm Gabapentin Active 200 MG PO DAILY January 02, 2021 5:12pm Hydrocodone- Acetaminophe n Discontin ued 1 TAB PO Q6H 9 January 02, 2021 6:26pm January 07, 2021 5:04pm Ondansetron Active 4 MG PO Q6H 10 Aug2020 6:26pm Procedures Procedure Date Performed Status CT Abd Pel w/ Contrast January 02, 2021 4:51pm completed Urine Culture January 02, 2021 completed Relevant Diagnostic Tests and/or Laboratory Data Laboratory Results Test Date/Time Result Interpretation Reference Range Result Comment Performing Site White Blood Count October 14, 2020 11:38pm 7.41 1000/mm3 4.8-10.8 MAIN LAB [address] [place] [address]186 White Blood Count January 02, 2021 4:44pm 6.81 1000/mm3 4.8-10.8 MAIN LAB [address] [address] White Blood Count January 07, 2021 5:35pm 5.33 1000/mm3 4.8-10.8 MAIN LAB [address] [address]272 Red Blood Count October 14, 2020 11:38pm 4.44 M/mm3 4.20-5.40 MAIN LAB [address] [place] [address] 53190 Red Blood Count January 02, 2021 4:44pm 4.67 M/mm3 4.20-5.40 MAIN LAB [address] [address]641 Red Blood Count January 07, 2021 5:35pm 4.85 M/mm3 4.20-5.40 MAIN LAB [address] [address]28 Hemoglobin October 14, 2020 11:38pm 9.2 g/dL 12.0-16.0 MAIN LAB [address] [place] [address] 36120 Hemoglobin January 02, 2021 4:44pm 10.4 g/dL 12.0-16.0 MAIN LAB [address] [address]476 Hemoglobin January 07, 2021 5:35pm 10.8 g/dL 12.0-16.0 MAIN LAB [address] [address] Hematocrit October 14, 2020 11:38pm 30.6 % 37-47 MAIN LAB [address] [place] [address] 90216 Hematocrit January 02, 2021 4:44pm 35.2 % 37-47 MAIN LAB [address] 744[address] Hematocrit January 07, 2021 5:35pm 36.3 % 37-47 MAIN LAB [address] 5[address] Mean Corpuscular Volume October 14, 2020 11:38pm 68.9 fL 81.0-99.0 MAIN LAB [address] [place] [address] 40411 Mean Corpuscular Volume January 02, 2021 4:44pm 75.4 fL 81.0-99.0 MAIN LAB [address] [address]66 Mean Corpuscular Volume January 07, 2021 5:35pm 74.8 fL 81.0-99.0 MAIN LAB [address] 26012 Mean Corpuscular Hemoglobin October 14, 2020 11:38pm 20.7 pg 27-31 MAIN LAB [address] [place] [address] 00910 Mean Corpuscular Hemoglobin January 02, 2021 4:44pm 22.3 pg 27-31 MAIN LAB [facility] [address] [facility] [address] [address] Mean Corpuscular Hemoglobin January 07, 2021 5:35pm 22.3 pg 27-31 MAIN LAB [facility] [address] 28191 Mean Corpuscular Hemoglobin Concent October 14, 2020 11:38pm 30.1 g/dL 33-37 MAIN LAB [address] [place] [address] 64336 Mean Corpuscular Hemoglobin Concent January 02, 2021 4:44pm 29.5 g/dL 33-37 MAIN LAB [address] 32569 Mean Corpuscular Hemoglobin Concent January 07, 2021 5:35pm 29.8 g/dL 33-37 MAIN LAB [address] 9[address]30 Red Cell Distribution Width October 14, 2020 11:38pm 16.8 % 11.5-14.5 MAIN LAB [address] [place] [address] 13560 Red Cell Distribution Width January 02, 2021 4:44pm 19.4 % 11.5-14.5 MAIN LAB [address] 46719 Red Cell Distribution Width January 07, 2021 5:35pm 18.6 % 11.5-14.5 MAIN LAB [address] 61459 Platelet Count October 14, 2020 11:38pm 250 1000/mm3 140-440 MAIN LAB [address] [place] [address] 45856 Platelet Count January 02, 2021 4:44pm 216 1000/mm3 140-440 MAIN LAB [address] 059[address] Platelet Count January 07, 2021 5:35pm 240 1000/mm3 140-440 MAIN LAB [address] 09394 Mean Platelet Volume October 14, 2020 11:38pm 10.6 fL 7.4-10.4 MAIN LAB [address] [place] [address] 73728 Mean Platelet Volume January 02, 2021 4:44pm 10.7 fL 7.4-10.4 MAIN LAB [address] 91973 Mean Platelet Volume January 07, 2021 5:35pm 11.3 fL 7.4-10.[address] [address] Neutrophils (%) (Auto) October 14, 2020 11:38pm 60.3 % 40.0-72.0 MAIN LAB [address] [place] [address] 50818 Neutrophils (%) (Auto) January 02, 2021 4:44pm 64.3 % 40.0-72.0 MAIN LAB [address] 06899 Neutrophils (%) (Auto) January 07, 2021 5:35pm 51.4 % 40.0-72.[address] [address] Lymphocytes (%) (Auto) October 14, 2020 11:38pm 29.0 % 17-45 MAIN LAB [address] [place] [address] 87088 Lymphocytes (%) (Auto) January 02, 2021 4:44pm 26.3 % 17-45 MAIN LAB [address] 26684 Lymphocytes (%) (Auto) January 07, 2021 5:35pm 37.7 % 17-45 MAIN LAB [address] 15579 Monocytes (%) (Auto) October 14, 2020 11:38pm 8.2 % 3-11 MAIN LAB [address] [place] [address] 84195 Monocytes (%) (Auto) January 02, 2021 4:44pm 6.2 % 3-11 MAIN LAB [address] [address] Monocytes (%) (Auto) January 07, 2021 5:35pm 6.0 % 3-11 [facility] [address] [address] Eosinophils (%) (Auto) October 14, 2020 11:38pm 1.1 % 0-3 MAIN LAB [address] [place] [address] 24932 Eosinophils (%) (Auto) January 02, 2021 4:44pm 2.2 % 0-3 MAIN LAB [address] 29426 Eosinophils (%) (Auto) January 07, 2021 5:35pm 3.2 % 0-3 MAIN LAB [address] 40636 Basophils (%) (Auto) October 14, 2020 11:38pm 1.3 % 0-1 MAIN LAB [address] [place] [address] 94489 Basophils (%) (Auto) January 02, 2021 4:44pm 0.9 % 0-1 MAIN LAB [address] 12113 Basophils (%) (Auto) January 07, 2021 5:35pm 1.5 % 0-1 MAIN LAB [address] 22442 Immature Granulocyte % (Auto) October 14, 2020 11:38pm 0.1 % 0-1 MAIN LAB [address] [place] [address] 25326 Immature Granulocyte % (Auto) January 02, 2021 4:44pm 0.1 % 0-1 MAIN LAB [address] 00976 Immature Granulocyte % (Auto) January 07, 2021 5:35pm 0.2 % 0-1 MAIN LAB [address] [address]259 Neutrophils # (Auto) October 14, 2020 11:38pm 4.46 1000/mm3 1.4-6.5 MAIN LAB [address] [place] [address] 08112 Neutrophils # (Auto) January 02, 2021 4:44pm 4.38 1000/mm3 1.4-6.5 MAIN LAB [address] [address]86 Neutrophils # (Auto) January 07, 2021 5:35pm 2.74 1000/mm3 1.4-6.5 MAIN LAB [address] [address] Lymphocytes # (Auto) October 14, 2020 11:38pm 2.15 1000/mm3 1.2-3.4 MAIN LAB [address] [place] [address] 16910 Lymphocytes # (Auto) January 02, 2021 4:44pm 1.79 1000/mm3 1.2-3.4 MAIN LAB [address] [address] Lymphocytes # (Auto) January 07, 2021 5:35pm 2.01 1000/mm3 1.2-3.4 MAIN LAB [address] [address] Monocytes # (Auto) October 14, 2020 11:38pm 0.61 1000/mm3 0.0-0.8 MAIN LAB [address] [place] [address] 29679 Monocytes # (Auto) January 02, 2021 4:44pm 0.42 1000/mm3 0.0-0.8 MAIN LAB [address] 81828 Monocytes # (Auto) January 07, 2021 5:35pm 0.32 1000/mm3 0.0-0.8 MAIN LAB [address] [address] Eosinophils # (Auto) October 14, 2020 11:38pm 0.08 1000/mm3 0.0-0.7 MAIN LAB [address] [place] [address] 61612 Eosinophils # (Auto) January 02, 2021 4:44pm 0.15 1000/mm3 0.0-0.7 MAIN LAB [address] [address]344 Eosinophils # (Auto) January 07, 2021 5:35pm 0.17 1000/mm3 0.0-0.7 MAIN LAB [address] [address]108 Basophils # (Auto) October 14, 2020 11:38pm 0.10 1000/mm3 0.0-0.1 MAIN LAB [address] [place] [address] 02804 Basophils # (Auto) January 02, 2021 4:44pm 0.06 1000/mm3 0.0-0.1 MAIN LAB [address] [address]37 Basophils # (Auto) January 07, 2021 5:35pm 0.08 1000/mm3 0.0-0.1 MAIN LAB [address] 78254 Absolute Immature Granulocyte (auto October 14, 2020 11:38pm 0.0 0-1 MAIN LAB [address] [place] [address] 69816 Absolute Immature Granulocyte (auto January 02, 2021 4:44pm 0.0 0-1 MAIN LAB [address] 11455 Absolute Immature Granulocyte (auto January 07, 2021 5:35pm 0.0 0-1 MAIN LAB [address] [address] Differential Method October 14, 2020 11:38pm Automated MAIN LAB [address] [place] [address] 72290 Differential Method January 02, 2021 4:44pm Automated MAIN LAB [address] 74385 Differential Method January 07, 2021 5:35pm Automated [facility] [address] [address] Differential Pathologist's Review October 14, 2020 11:38pm See comment No comparison data on file at [facility]. Microcytic hypochromic anemia, consistent with iron deficiency.S veronica reviewed by pathologist for quality assurance supervisor final.Hair eMllo MD10/15/20 MAIN LAB [address] [place] [address] 48555 Prothrombin Time October 14, 2020 11:38pm 10.8 SECONDS 9.6-11.2 MAIN LAB [address] [place] [address] 93860 Prothromb Time International Ratio October 14, 2020 11:38pm 1.1 2.0-3.0 INR value valid only on patients on stabilized warfarin therapy. The recommended therapeutic range for warfarin (Coumadin) for most clinical indications is an INR of 2.0-3.0. An INR of 2.5-3.5 is recommended for patients with mechanical heart valves. MAIN LAB [address] [place] [address]177 Activated Partial Thromboplast Time October 14, 2020 11:38pm 26.1 SECONDS 21.6-36.0 A target of 1.5-2.5 times the mean of the normal reference range is considered therapeutic. NOTE: APTT must NOT be used to monitor LMWH therapy. Contact [facility] for monitoring information. MAIN LAB [address] [place] [address] 69955 Urine Color January 02, 2021 6:04pm Lauren MAIN LAB [address] [address] Urine Clarity January 02, 2021 6:04pm very cloudy MAIN LAB [address] [address]684 Urine pH January 02, 2021 6:04pm 6.0 MAIN LAB [address] 72216 Urine Specific Gibson January 02, 2021 6:04pm 1.015 MAIN LAB [address] 48383 Urine Protein January 02, 2021 6:04pm 100 (2+) mg/dL NEGATIVE MAIN LAB [address] 88135 Urine Glucose (UA) January 02, 2021 6:04pm Normal mg/dL NORMAL MAIN LAB [address] 64710 Urine Ketones January 02, 2021 6:04pm Negative NEGATIVE MAIN LAB [address] [address] Urine Nitrite January 02, 2021 6:04pm Negative Negative MAIN LAB [address] 18443 Urine Bilirubin January 02, 2021 6:04pm Negative mg/dL NEGATIVE MAIN LAB [address] 04866 Urine Urobilinogen January 02, 2021 6:04pm Normal mg/dL NORMAL MAIN LAB [address] 06206 Urine Leukocyte Esterase January 02, 2021 6:04pm Moderate (2+) WBC/uL NEGATIVE MAIN LAB [address] 79870 Urine Blood January 02, 2021 6:04pm Large (3+) JOEL/uL NEGATIVE MAIN LAB [address] 26880 Urine RBC October 14, 2020 11:45pm 10-20 /hpf MAIN LAB [address] [place] [address] 70258 Urine RBC January 02, 2021 6:04pm Tntc /hpf MAIN LAB [address] [address]14 Urine WBC October 14, 2020 11:45pm 0-2 /hpf MAIN LAB [address] [place] [address] 63465 Urine WBC January 02, 2021 6:04pm 3-5 /hpf MAIN LAB [address] 94999 Urine Squamous Epithelial Cells January 02, 2021 6:04pm 1+ /hpf MAIN LAB [address] 46923 Urine Bacteria October 14, 2020 11:45pm 1+ /hpf NONE SEEN MAIN LAB [address] [place] [address] 98668 Urine Bacteria January 02, 2021 6:04pm None seen /hpf NONE SEEN MAIN LAB [address] 8[address] Urine Mucus October 14, 2020 11:45pm Present MAIN LAB [address] [place] [address] 92354 Urine Culture Done October 14, 2020 11:45pm No CULTURE NOT INDICATED. MAIN LAB [address] [place] [address] 16824 Urine Culture Done January 02, 2021 6:04pm Yes URINE SPECIMEN CULTURED MAIN LAB [address] [address] Urine Test January 02, 2021 6:04pm Negative NEGATIVE MAIN LAB [address] 72595 Sodium Level October 14, 2020 11:38pm 138 mmol/L 137-145 MAIN LAB [address] [place] [address] 00333 Sodium Level January 02, 2021 4:44pm 141 mmol/L 137-145 MAIN LAB [address] 71189 Sodium Level January 07, 2021 5:35pm 140 mmol/L 137-145 MAIN LAB [address] 68678 Potassium Level October 14, 2020 11:38pm 3.8 mmol/L 3.6-5.0 MAIN LAB [address] [place] [address] 78558 Potassium Level January 02, 2021 4:44pm 3.9 mmol/L 3.6-5.0 MAIN LAB [address] [address]24 Potassium Level January 07, 2021 5:35pm 3.7 mmol/L 3.6-5.0 MAIN LAB [address] [address]91 Chloride Level October 14, 2020 11:38pm 100 mmol/L 98-107 MAIN LAB [address] [place] [address] 29501 Chloride Level January 02, 2021 4:44pm 104 mmol/L 98-107 MAIN LAB [facility] [address] [facility] [address] Chloride Level January 07, 2021 5:35pm 103 mmol/L 98-107 MAIN LAB [facility] [address] [facility] [address] 15555 Carbon Dioxide Level October 14, 2020 11:38pm 25 mmol/L 22-30 MAIN LAB [address] [place] [address] 01805 Carbon Dioxide Level January 02, 2021 4:44pm 26 mmol/L 22-30 MAIN LAB [facility] [address] [facility] 6[address] Carbon Dioxide Level January 07, 2021 5:35pm 27 mmol/L 22-30 MAIN LAB [address] 65909 Anion Gap October 14, 2020 11:38pm 13 7-16 MAIN LAB [address] [place] [address] 04769 Anion Gap January 02, 2021 4:44pm 11 7-16 MAIN LAB [address] [address]21 Anion Gap January 07, 2021 5:35pm 10 7-16 MAIN LAB [address] 71327 Blood Urea Nitrogen October 14, 2020 11:38pm 15 mg/dL 7-17 MAIN LAB [address] [place] [address] 26553 Blood Urea Nitrogen January 02, 2021 4:44pm 11 mg/dL 7-17 MAIN LAB [facility] [address] [facility] [address] 46[address] Blood Urea Nitrogen January 07, 2021 5:35pm 13 mg/dL 7-17 MAIN LAB [facility] [address] [facility] [address] 69161 Creatinine October 14, 2020 11:38pm 0.76 mg/dL 0.52-1.04 MAIN LAB [address] [place] [address] 67120 Creatinine January 02, 2021 4:44pm 0.76 mg/dL 0.52-1.04 MAIN LAB [address] [address]113 Creatinine January 07, 2021 5:35pm 0.79 mg/dL 0.52-1.04 MAIN LAB [address] 81657 Glomerular Filtration Rate Calc October 14, 2020 11:38pm > 60 mL/min >60.0 MAIN LAB [address] [place] [address] 61843 Glomerular Filtration Rate Calc January 02, 2021 4:44pm > 60 mL/min >60.0 MAIN LAB [address] [address] Glomerular Filtration Rate Calc January 07, 2021 5:35pm > 60 mL/min >60.0 MAIN LAB [address] [address]316 Glucose Level October 14, 2020 11:38pm 88 mg/dL 70-100 MAIN LAB [address] [place] [address] 17920 Glucose Level January 02, 2021 4:44pm 88 mg/dL 70-100 MAIN LAB [address] 70541 Glucose Level January 07, 2021 5:35pm 105 mg/dL 70-100 MAIN LAB [address] 86831 Calcium Level October 14, 2020 11:38pm 9.3 mg/dL 8.4-10.2 MAIN LAB [address] [place] [address] 18170 Calcium Level January 02, 2021 4:44pm 9.3 mg/dL 8.4-10.2 MAIN LAB [address] [address]291 Calcium Level January 07, 2021 5:35pm 9.6 mg/dL 8.4-10.2 MAIN LAB [address] 65292 Calcium Adjusted for Albumin October 14, 2020 11:38pm 9.2 mg/dL 8.4-10.2 MAIN LAB [address] [place] [address] 46203 Calcium Adjusted for Albumin January 02, 2021 4:44pm 8.8 mg/dL 8.4-10.2 MAIN LAB [address] 81326 Calcium Adjusted for Albumin January 07, 2021 5:35pm 9.3 mg/dL 8.4-10.2 MAIN LAB [address] [address]645 Iron Level October 14, 2020 11:38pm 36 ug/dL 37-170 MAIN LAB [address] [place] [address] 30515 Total Bilirubin October 14, 2020 11:38pm 0.3 mg/dL 0.2-1.3 MAIN LAB [address] [place] [address] 74164 Total Bilirubin January 02, 2021 4:44pm 0.4 mg/dL 0.2-1.3 MAIN LAB [address] 17391 Total Bilirubin January 07, 2021 5:35pm 0.4 mg/dL 0.2-1.3 MAIN LAB [address] 80337 Aspartate Amino Transf (AST/SGOT) October 14, 2020 11:38pm 55 U/L 14-36 MAIN LAB [address] [place] [address] 64748 Aspartate Amino Transf (AST/SGOT) January 02, 2021 4:44pm 39 U/L 14-36 MAIN LAB [address] [address]57 Aspartate Amino Transf (AST/SGOT) January 07, 2021 5:35pm 38 U/L 14-36 MAIN LAB [address] [address] Alanine Aminotransferase (ALT/SGPT) October 14, 2020 11:38pm 41 U/L <35 As of 09/13/19, the Reference Range for ALT/SGPT for adult patients has been updated. The Reference Range for ALT/SGPT has not been established for patients <18 years of age. MAIN LAB [address] [place] [address]70 Alanine Aminotransferase (ALT/SGPT) January 02, 2021 4:44pm 21 U/L <35 As of 09/13/19, the Reference Range for ALT/SGPT for adult patients has been updated. The Reference Range for ALT/SGPT has not been established for patients <18 years of age. MAIN LAB [address] [address] Alanine Aminotransferase (ALT/SGPT) January 07, 2021 5:35pm 23 U/L <35 As of 09/13/19, the Reference Range for ALT/SGPT for adult patients has been updated. The Reference Range for ALT/SGPT has not been established for patients <18 years of age. MAIN LAB [address] [address] Total Protein October 14, 2020 11:38pm 7.4 g/dL 6.3-8.2 MAIN LAB [address] [place] [address] 32358 Total Protein January 02, 2021 4:44pm 7.9 g/dL 6.3-8.2 MAIN LAB [address] 27889 Total Protein January 07, 2021 5:35pm 7.7 g/dL 6.3-8.2 MAIN LAB [address] 09833 Albumin October 14, 2020 11:38pm 4.4 g/dL 3.5-5.0 MAIN LAB [address] [place] [address] 19866 Albumin January 02, 2021 4:44pm 4.9 g/dL 3.5-5.0 MAIN LAB [address] [address]78 Albumin January 07, 2021 5:35pm 4.7 g/dL 3.5-5.0 MAIN LAB [address] 80256 Alkaline Phosphatase October 14, 2020 11:38pm 55 U/L 38-126 MAIN LAB [address] [place] [address] 02588 Alkaline Phosphatase January 02, 2021 4:44pm 58 U/L 38-126 MAIN LAB [address] 82653 Alkaline Phosphatase January 07, 2021 5:35pm 58 U/L 38-126 MAIN LAB [address] 75618 Lipase October 14, 2020 11:38pm 43 U/L 23-300 MAIN LAB [address] [place] [address] 04624 Ferritin October 14, 2020 11:38pm 4.43 ng/mL 10-291 The results of this assay can be falsely decreased in patients who consume Biotin. MAIN LAB [address] [place] [address] 31556 Microbiology Results Procedure Source Result Collection Date/Time Result Date/Time Result Comment Performing Site Urine Culture Ur,Clean Catch January 02, 2021 6:40pm January 04, 2021 8:36am MAIN LAB [address] [address] Diagnostic Imaging Reports Report Dictated Date/Time Dictated By Status Radiology Report January 02, 2021 5:42pm Megan Balderas MD completed [facility] CAT SCAN REPORT PATIENT NAME: [...] By : Megan Morales MD dd: [id number] Vital Signs Vital Reading Result Reference Range Collection Date/Time Weight 90.71 kg October 14, 2020 10:53pm Body Temperature 97.9 [degF] 97.6-99.6 October 14 021 10:53pm Heart Rate 80 /min 60-100 [...] January 07 4:59pm Respiratory rate 20 /min 12-24 December 4:59pm Oxygen saturation by Pulse oximetry 100 % 95-100 January 07, 2021 4: 59pm BP Systolic 108 mm[Hg] 100-140 January 07 4:59pm BP Diastolic 74 mm[Hg] 50-85 January 07 4:59pm Advance Directives Advance Directive Response Recorded Date/ Time Does patient have an Advanced Directive? No October 14, 2020 11:22pm Do we have a copy on file here at [facility]? No October 14, 2020 11:22pm Pt has a Living Will? No October 14, 2020 11:22pm Do we have a copy on file here at [facility]? No October 14, 2020 11:22pm Pt has a Power of Search Engine Optimization Analyst? No October 14, 2020 11:22pm Do we have a copy on file here at [facility]? No October 14, 2020 11:22pm Insurance Providers Guarantor EDUARDO PAYAN Address [address] [place] [address] Contact Info. Home Phone: Payer Policy Id Coverage Id Subscriber's Name Subscriber Id Effective Date Expiration Date [facility] [id number] EDUARDO PAYAN [id number] SELF PAY Self N/A Encounters Encounter Location(s) Arrival/Admit Date Discharge/Depart Date Provider(s) Departed Emergency [facility]-Emergency Department October 14, 2020 10:48pm October 15, 2020 12:54am null Departed Emergency [facility]Emergency Department December 29, 2020 4:23pm December 29, 2020 7:13pm null Departed Emergency [facility]-Emergency Department January 02, 2021 4:12pm January 02, 2021 7:22pm null Departed Emergency [facility]-Emergency Department January 07, 2021 4:48pm January 07, 2021 6:55pm null Functional Status Observation Response Date Recorded Living Situation Home January 07 6:53pm With Family January 07 6:53pm Mental Status Observation Response Date Recorded Comprehension [...] ( DC) Hospital Discharge Instructions Additional Instructions As discussed your blood counts are improving. Your other labs are normal. Continue taking the Zofran as prescribed follow-up for your colonoscopy and return if you have any worsening symptoms.
--- OUTSIDE RECORDS SUMMARY | 2022-11-20 17:49 | XMS_ITS | Continuity of Care Document ---
Author Name Unknown Address [address] [place] [address] Phone [facility] Address [address] [place] [address] Phone Care Team Providers Care Stock Letterer Name Role Phone PCP, of Choice Primary Care Provider Unavailabl e Out of Town, Provider Primary Care Provider Unav ailable Chief Complaint and Reason for Visit Chief Complaint LEFT FLANK PAIN ORAL INFECTION RECTAL BLEEDING abdominal pain OVARIAN CYST POST OP CONCERN ABDOMINAL PAIN Allergies, Adverse Reactions, Alerts Allergen [...] Observa tion Never smoked tobacco (finding) March 18, 2021 7:50pm Observation Status Observation Response Date of Response Alcohol Use Yes March 18 7:50pm alcohol intake frequency a few times a month Nov ember 2020 7:50pm Alcohol type hard liquor March 18 7:50pm Substance/Street Drug Use Yes Novemb er 2020 7:50pm substance use type marijuana March 18, 2021 7:50pm Smoking Status Never smoker March 18 7:50pm Additional Data Assigned Sex Female Problems Active [...] MG PO DAILY October 15, 2020 2:57pm [facility] 2020 5:42pm Hydrocodone- Acetaminophe n Discontin ued TABLET December 29, 2020 4:35pm January 07, 2021 5:04pm Cefdinir Discontin ued 300 MG PO TWICE A DAY [facility] er 2020 4:03pm Septem rinku 2020 9:07pm Tramadol Discontin ued 50 MG PO Q8H 10 [facility] [place] 4:44pm Septem 2020 9:06pm Gabapentin Active 200 MG PO DAILY January 02, 2021 5:12pm Hydrocodone- Acetaminophe n Discontin ued 1 TAB PO Q6H 9 [place] 21st, 2021 6:26pm January 07, 2021 5:04pm Ondansetron [...] 4:09pm completed Urine Culture March 16, 2021 completed Gram Stain March 16, 2021 completed Routine Culture March 16, [address] Abd Pel w/ Contrast January 02, 2021 4:51pm completed Urine Culture January 02, 2021 completed Blood Culture March 18, 2021 active Relevant Diagnostic Tests and/or Laboratory Data Laboratory Results Test Date/Time Result Interpretation Reference Range Result Comment Performing Site White Blood Count October 14, 2020 11:38pm 7.41 1000/mm3 4.8-10.8 MA[facility] [address] [place] [address]11 White Blood Count January 02, 2021 4:44pm 6.81 1000/mm3 4.8-10.8 MA[facility] [address] [address] White Blood Count January 07, 2021 5:35pm 5.33 1000/mm3 4.8-10.8 MA[facility] [address] [address] White Blood Count January 29, 2021 9:57pm 5.85 1000/mm3 4.8-10.8 MA[facility] [address] [address]20 White Blood Count March 16, 2021 5:34pm 6.11 1000/mm3 4.8-10.8 MA[facility] [address] [address] White Blood Count March 18, 2021 7:56pm 5.26 1000/mm3 4.8-10.8 MA[facility] [address] [address]68 Red Blood Count October 14, 2020 11:38pm 4.44 M/mm3 4.20-5.40 MA[facility] [address] [place] [address]28 Red Blood Count January 02, 2021 4:44pm 4.67 M/mm3 4.20-5.40 MA[facility] [address] [address]276 Red Blood Count January 07, 2021 5:35pm 4.85 M/mm3 4.20-5.40 MA[facility] [address] [address]13 Red Blood Count January 29, 2021 9:57pm 4.53 M/mm3 4.20-5.40 MA[facility] [address] 95328 Red Blood Count March 16, 2021 5:34pm 4.26 M/mm3 4.20-5.40 [facility] [address] [address]62 Red Blood Count March 18, 2021 7:56pm 4.17 M/mm3 4.20-5.40 MA[facility] [address] 9[address]77 Hemoglobin October 14, 2020 11:38pm 9.2 g/dL 12.0-16.0 MA[facility] [address] [place] [address]61 Hemoglobin January 02, 2021 4:44pm 10.4 g/dL 12.0-16.0 MA[facility] [address] 47986 Hemoglobin January 07, 2021 5:35pm 10.8 g/dL 12.0-16.0 MA[facility] [address] [address]36 Hemoglobin January 29, 2021 9:57pm 10.4 g/dL 12.0-16.0 MAIN [facility] [address] 79888 Hemoglobin March 16, 2021 5:34pm 9.9 g/dL 12.0-16.0 MAIN LAB [facility] [address] [facility] [address] Hemoglobin March 18, 2021 7:56pm 9.9 g/dL 12.0-16.0 MAIN LAB [facility] [address] [facility] [address] Hematocrit October 14, 2020 11:38pm 30.6 % 37-47 MA[facility] [address] [facility] [address] Hematocrit January 02, 2021 4:44pm 35.2 % 37-47 MAIN [facility] [address] [facility] [address] Hematocrit January 07, 2021 5:35pm 36.3 % 37-47 MAIN [facility] [address] [facility] [address] Hematocrit January 29, 2021 9:57pm 33.7 % 37-47 MAIN [facility] [address] [address] Hematocrit March 16, 2021 5:34pm 33.2 % 37-47 MA[facility] [address] [facility] [address] Hematocrit March 18, 2021 7:56pm 32.9 % 37-47 MA[facility] [address] [address]509 Mean Corpuscular Volume October 14, 2020 11:38pm 68.9 fL 81.0-99.0 MA[facility] [address] [place] [address] 45765 Mean Corpuscular Volume January 02, 2021 4:44pm 75.4 fL 81.0-99.0 MA[facility] [address] [facility] [place] [address] Mean Corpuscular Volume January 07, 2021 5:35pm 74.8 fL 81.0-99.0 MAIN [facility] [address] [address]76 Mean Corpuscular Volume January 29, 2021 9:57pm 74.4 fL 81.0-99.0 MAIN LAB [address] [place] [address] Mean Corpuscular Volume March 16, 2021 5:34pm 77.9 fL 81.0-99.0 MA[facility] [address] [facility] [address] Mean Corpuscular Volume March 18, 2021 7:56pm 78.9 fL 81.0-99.0 MAIN [facility] [address] [address]236 Mean Corpuscular Hemoglobin October 14, 2020 11:38pm 20.7 pg 27-31 MAIN [facility] [address] [place] [address] 18891 Mean Corpuscular Hemoglobin January 02, 2021 4:44pm 22.3 pg 27-31 MA[facility] [address] 52020 Mean Corpuscular Hemoglobin January 07, 2021 5:35pm 22.3 pg 27-31 MA[facility] [address] [address]76[address] Mean Corpuscular Hemoglobin January 29, 2021 9:57pm 23.0 pg 27-31 MA[facility] [address] 24812 Mean Corpuscular Hemoglobin March 16, 2021 5:34pm 23.2 pg 27-31 MA[facility] [address] [address]166 Mean Corpuscular Hemoglobin March 18, 2021 7:56pm 23.7 pg 27-31 MA[facility] [address] [address]35 Mean Corpuscular Hemoglobin Concent October 14, 2020 11:38pm 30.1 g/dL 33-37 MA[facility] [address] [place] [address] 17285 Mean Corpuscular Hemoglobin Concent January 02, 2021 4:44pm 29.5 g/dL 33-37 MA[facility] [address] 02532 Mean Corpuscular Hemoglobin Concent January 07, 2021 5:35pm 29.8 g/dL 33-37 MA[facility] [address] 12918 Mean Corpuscular Hemoglobin Concent January 29, 2021 9:57pm 30.9 g/dL 33-37 MA[facility] [address] 05254 Mean Corpuscular Hemoglobin Concent March 16, 2021 5:34pm 29.8 g/dL 33-37 MAIN LAB [facility] [address] [facility] [address] Mean Corpuscular Hemoglobin Concent March 18, 2021 7:56pm 30.1 g/dL 33-37 MAIN [facility] [address] 85753 Red Cell Distribution Width October 14, 2020 11:38pm 16.8 % 11.5-14.5 MA[facility] [address] [place] [address] 36868 Red Cell Distribution Width January 02, 2021 4:44pm 19.4 % 11.5-14.5 MA[facility] [address] 74931 Red Cell Distribution Width January 07, 2021 5:35pm 18.6 % 11.5-14.5 MA[facility] [address] [address]70 Red Cell Distribution Width January 29, 2021 9:57pm 17.6 % 11.5-14.5 MA[facility] [address] 19136 Red Cell Distribution Width March 16, 2021 5:34pm 16.2 % 11.5-14.5 MAIN [facility] [address] 75014 Red Cell Distribution Width March 18, 2021 7:56pm 16.4 % 11.5-14.5 MA[facility] [address] [address]19 Platelet Count October 14, 2020 11:38pm 250 1000/mm3 140-440 MA[facility] [address] [place] [address] 35486 Platelet Count January 02, 2021 4:44pm 216 1000/mm3 140-440 MA[facility] [address] 29800 Platelet Count January 07, 2021 5:35pm 240 1000/mm3 140-440 MA[facility] [address] 87969 Platelet Count January 29, 2021 9:57pm 248 1000/mm3 140-440 MA[facility] [address] 07569 Platelet Count March 16, 2021 5:34pm 220 1000/mm3 140-440 MA[facility] [address] 40605 Platelet Count March 18, 2021 7:56pm 212 1000/mm3 140-440 MA[facility] [address] 82980 Mean Platelet Volume October 14, 2020 11:38pm 10.6 fL 7.4-10.4 [facility] [address] [place] [address]39 Mean Platelet Volume January 02, 2021 4:44pm 10.7 fL 7.4-10.4 MA[facility] [address] 97741 Mean Platelet Volume January 07, 2021 5:35pm 11.3 fL 7.4-10.4 MA[facility] [address] 72510 Mean Platelet Volume January 29, 2021 9:57pm 10.6 fL 7.4-10.4 MA[facility] [address] 41987 Mean Platelet Volume March 16, 2021 5:34pm 10.6 fL 7.4-10.4 MAIN [facility] [address] 22017 Mean Platelet Volume March 18, 2021 7:56pm 10.4 fL 7.4-10.4 MA[facility] [address] [address]76 Neutrophils (%) (Auto) October 14, 2020 11:38pm 60.3 % 40.0-72.0 MA[facility] [address] [place] [address] 73633 Neutrophils (%) (Auto) January 02, 2021 4:44pm 64.3 % 40.0-72.0 MA[facility] [address] [address] Neutrophils (%) (Auto) January 07, 2021 5:35pm 51.4 % 40.0-72.0 MA[facility] [address] [address]89 Neutrophils (%) (Auto) January 29, 2021 9:57pm 57.7 % 40.0-72.0 MA[facility] [address] 42553 Neutrophils (%) (Auto) March 16, 2021 5:34pm 62.5 % 40.0-72.0 MA[facility] [address] 50502 Neutrophils (%) (Auto) March 18, 2021 7:56pm 57.9 % 40.0-72.0 MA[facility] [address] 75383 Lymphocytes (%) (Auto) October 14, 2020 11:38pm 29.0 % 17-45 [facility] [address] [place] [address] 07092 Lymphocytes (%) (Auto) January 02, 2021 4:44pm 26.3 % 17-45 MA[facility] [address] 66337 Lymphocytes (%) (Auto) January 07, 2021 5:35pm 37.7 % 17-[address] [address] Lymphocytes (%) (Auto) January 29, 2021 9:57pm 32.6 % 17-[address] [address] Lymphocytes (%) (Auto) March 16, 2021 5:34pm 26.7 % 17-45 MA[facility] [address] 16847 Lymphocytes (%) (Auto) March 18, 2021 7:56pm 30.4 % 17-45 MA[facility] [address] 9[address] Monocytes (%) (Auto) October 14, 2020 11:38pm 8.2 % 3-11 MA[facility] [address] [place] [address] 77519 Monocytes (%) (Auto) January 02, 2021 4:44pm 6.2 % 3-11 MAIN [facility] [address] [address] Monocytes (%) (Auto) January 07, 2021 5:35pm 6.0 % 3-11 [facility] [address] [address]189 Monocytes (%) (Auto) January 29, 2021 9:57pm 6.5 % 3-11 MAIN LAB [address] 8[address]60 Monocytes (%) (Auto) March 16, 2021 5:34pm 6.9 % 3-11 MA[facility] [address] 07504 Monocytes (%) (Auto) March 18, 2021 7:56pm 7.2 % 3-11 MAIN [facility] [address] 72814 Eosinophils (%) (Auto) October 14, 2020 11:38pm 1.1 % 0-3 MA[facility] [address] [place] [address] 96701 Eosinophils (%) (Auto) January 02, 2021 4:44pm 2.2 % 0-3 MA[facility] [address] [address]80 Eosinophils (%) (Auto) January 07, 2021 5:35pm 3.2 % 0-3 [facility] [address] 00764 Eosinophils (%) (Auto) January 29, 2021 9:57pm 1.7 % 0-3 [facility] [address] [address] Eosinophils (%) (Auto) March 16, 2021 5:34pm 2.6 % 0-3 MAIN [facility] [address] [address] Eosinophils (%) (Auto) March 18, 2021 7:56pm 3.2 % 0-3 [facility] [address] [address]22 Basophils (%) (Auto) October 14, 2020 11:38pm 1.3 % 0-1 [facility] [address] [place] [address] 72591 Basophils (%) (Auto) January 02, 2021 4:44pm 0.9 % 0-1 MA[facility] [address] 39999 Basophils (%) (Auto) January 07, 2021 5:35pm 1.5 % 0-1 [facility] [address] 22090 Basophils (%) (Auto) January 29, 2021 9:57pm 1.2 % 0-1 [facility] [address] 48043 Basophils (%) (Auto) March 16, 2021 5:34pm 1.1 % 0-1 [facility] [address] 31063 Basophils (%) (Auto) March 18, 2021 7:56pm 1.1 % 0-1 [facility] [address] [address]262 Immature Granulocyte % (Auto) October 14, 2020 11:38pm 0.1 % 0-1 [facility] [address] [place] [address] 6[address]32 Immature Granulocyte % (Auto) January 02, 2021 4:44pm 0.1 % 0-1 MA[facility] [address] 47803 Immature Granulocyte % (Auto) January 07, 2021 5:35pm 0.2 % 0-1 [facility] [address] 28394 Immature Granulocyte % (Auto) January 29, 2021 9:57pm 0.3 % 0-1 [facility] [address] 25301 Immature Granulocyte % (Auto) March 16, 2021 5:34pm 0.2 % 0-1 [facility] [address] 09515 Immature Granulocyte % (Auto) March 18, 2021 7:56pm 0.2 % 0-1 [facility] [address] [address]47 Neutrophils # (Auto) October 14, 2020 11:38pm 4.46 1000/mm3 1.4-6.5 [facility] [address] [place] [address] 9[address]91 Neutrophils # (Auto) January 02, 2021 4:44pm 4.38 1000/mm3 1.4-6.5 MA[facility] [address] 9[address] Neutrophils # (Auto) January 07, 2021 5:35pm 2.74 1000/mm3 1.4-6.5 [facility] [address] [address]406 Neutrophils # (Auto) January 29, 2021 9:57pm 3.37 1000/mm3 1.4-6.5 [facility] [address] 19274 Neutrophils # (Auto) March 16, 2021 5:34pm 3.82 1000/mm3 1.4-6.5 [facility] [address] 97832 Neutrophils # (Auto) March 18, 2021 7:56pm 3.04 1000/mm3 1.4-6.5 [facility] [address] [address] Lymphocytes # (Auto) October 14, 2020 11:38pm 2.15 1000/mm3 1.2-3.4 [facility] [address] [place] [address] 60480 Lymphocytes # (Auto) January 02, 2021 4:44pm 1.79 1000/mm3 1.2-3.4 [facility] [address] [address] Lymphocytes # (Auto) January 07, 2021 5:35pm 2.01 1000/mm3 1.2-3.4 [facility] [address] 69015 Lymphocytes # (Auto) January 29, 2021 9:57pm 1.91 1000/mm3 1.2-3.4 [facility] [address] 21899 Lymphocytes # (Auto) March 16, 2021 5:34pm 1.63 1000/mm3 1.2-3.4 [facility] [address] 98850 Lymphocytes # (Auto) March 18, 2021 7:56pm 1.60 1000/mm3 1.2-3.4 [facility] [address] [address]13 Monocytes # (Auto) October 14, 2020 11:38pm 0.61 1000/mm3 0.0-0.8 [facility] [address] [place] [address]63 Monocytes # (Auto) January 02, 2021 4:44pm 0.42 1000/mm3 0.0-0.8 [facility] [address] [address] Monocytes # (Auto) January 07, 2021 5:35pm 0.32 1000/mm3 0.0-0.8 [facility] [address] 19411 Monocytes # (Auto) January 29, 2021 9:57pm 0.38 1000/mm3 0.0-0.8 [facility] [address] 27000 Monocytes # (Auto) March 16, 2021 5:34pm 0.42 1000/mm3 0.0-0.8 [facility] [address] 6[address]17 Monocytes # (Auto) March 18, 2021 7:56pm 0.38 1000/mm3 0.0-0.8 [facility] [address] 35831 Eosinophils # (Auto) October 14, 2020 11:38pm 0.08 1000/mm3 0.0-0.7 [facility] [address] [place] [address] 34006 Eosinophils # (Auto) January 02, 2021 4:44pm 0.15 1000/mm3 0.0-0.7 [facility] [address] 65337 Eosinophils # (Auto) January 07, 2021 5:35pm 0.17 1000/mm3 0.0-0.7 [facility] [address] 30334 Eosinophils # (Auto) January 29, 2021 9:57pm 0.10 1000/mm3 0.0-0.7 [facility] [address] 47384 Eosinophils # (Auto) March 16, 2021 5:34pm 0.16 1000/mm3 0.0-0.7 [facility] [address] 06839 Eosinophils # (Auto) March 18, 2021 7:56pm 0.17 1000/mm3 0.0-0.7 [facility] [address] 87062 Basophils # (Auto) October 14, 2020 11:38pm 0.10 1000/mm3 0.0-0.1 [facility] [address] [place] [address] 92466 Basophils # (Auto) January 02, 2021 4:44pm 0.06 1000/mm3 0.0-0.1 [facility] [address] 9[address]11 Basophils # (Auto) January 07, 2021 5:35pm 0.08 1000/mm3 0.0-0.1 MA[facility] [address] [address]88 Basophils # (Auto) January 29, 2021 9:57pm 0.07 1000/mm3 0.0-0.1 [facility] [address] 69588 Basophils # (Auto) March 16, 2021 5:34pm 0.07 1000/mm3 0.0-0.1 MA[facility] [address] 80497 Basophils # (Auto) March 18, 2021 7:56pm 0.06 1000/mm3 0.0-0.1 MA[facility] [address] 72258 Absolute Immature Granulocyte (auto October 14, 2020 11:38pm 0.0 0-1 [facility] [address] [place] [address] 44830 Absolute Immature Granulocyte (auto January 02, 2021 4:44pm 0.0 0-1 MA[facility] [address] [address]23 Absolute Immature Granulocyte (auto January 07, 2021 5:35pm 0.0 0-1 [facility] [address] 93941 Absolute Immature Granulocyte (auto January 29, 2021 9:57pm 0.0 0-1 [facility] [address] 32463 Absolute Immature Granulocyte (auto March 16, 2021 5:34pm 0.0 0-1 [facility] [address] 26384 Absolute Immature Granulocyte (auto March 18, 2021 7:56pm 0.0 0-1 [facility] [address] 6[address]10 Differential Method October 14, 2020 11:38pm Automated [facility] [address] [place] [address] 16065 Differential Method January 02, 2021 4:44pm Automated [facility] [address] 01851 Differential Method January 07, 2021 5:35pm Automated [facility] [address] 14856 Differential Method January 29, 2021 9:57pm Automated [facility] [address] 01235 Differential Method March 16, 2021 5:34pm Automated MA[facility] [address] 87967 Differential Method March 18, 2021 7:56pm Automated MAIN [facility] [address] [address] Differential Pathologist's Review October 14, 2020 11:38pm See comment No comparison data on file at [facility]. 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 The recommended therapeutic range for warfarin (Coumadin) for most clinical indications is an INR of 2.0-3.0. An INR of 2.5-3.5 is recommended for patients with mechanical heart valves. MAIN LAB [address] [place] [address]116 Activated Partial Thromboplast Time October 14, 2020 11:38pm 26.1 SECONDS 21.6-36.0 A target of 1.5-2.5 times the mean of the normal reference range is considered therapeutic. NOTE: APTT must NOT be used to monitor LMWH therapy. Contact [facility] Pharmacy for monitoring information. MAIN LAB [address] [place] [address] 09698 Urine Color January 02, 2021 6:04pm Lauren MAIN LAB [address] [address]249 Urine Clarity January 02, 2021 6:04pm very cloudy MA[facility] [address] [address]11 Urine pH January 02, 2021 6:04pm 6.0 MA[facility] [address] 66319 Urine Specific [place] January 02, 2021 6:04pm 1.015 MAIN LAB [address] 36405 Urine Protein January 02, 2021 6:04pm 100 (2+) mg/dL NEGATIVE [facility] [address] [address]18 Urine Glucose (UA) January 02, 2021 6:04pm Normal mg/dL NORMAL [facility] [address] 37309 Urine Ketones January 02, 2021 6:04pm Negative NEGATIVE [facility] [address] [address]10 Urine Nitrite January 02, 2021 6:04pm Negative Negative [facility] [address] 22202 Urine Bilirubin January 02, 2021 6:04pm Negative mg/dL NEGATIVE [facility] [address] 72083 Urine Urobilinogen January 02, 2021 6:04pm Normal mg/dL NORMAL [facility] [address] 97410 Urine Leukocyte Esterase January 02, 2021 6:04pm Moderate (2+) WBC/uL NEGATIVE [facility] [address] 60426 Urine Blood January 02, 2021 6:04pm Large (3+) JOEL/uL NEGATIVE [facility] [address] 17518 Urine RBC October 14, 2020 11:45pm 10-20 /hpf MA[facility] [address] [place] [address] 18168 Urine RBC January 02, 2021 6:04pm Tntc /hpf [facility] [address] 74825 Urine RBC March 16, 2021 6:40pm Tntc /hpf MA[facility] [address] 13887 Urine WBC October 14, 2020 11:45pm 0-2 /hpf [facility] [address] [place] [address] 06106 Urine WBC January 02, 2021 6:04pm 3-5 /hpf MAIN [facility] [address] 64719 Urine WBC March 16, 2021 6:40pm See comment /hpf Microscopic field obscured by RBC. MAIN LAB [address] 29950 Urine Squamous Epithelial Cells January 02, 2021 6:04pm 1+ /hpf MAIN LAB [facility] [address] [facility] [address] Urine Bacteria October 14, 2020 11:45pm 1+ /hpf NONE SEEN [facility] [address] [place] [address] 91311 Urine Bacteria January 02, 2021 6:04pm None seen /hpf NONE SEEN [facility] [address] 8[address]24 Urine Bacteria March 16, 2021 6:40pm See comment /hpf NONE SEEN Microscopic field obscured by RBC. MAIN [facility] [address] [address] Urine Mucus October 14, 2020 11:45pm Present [facility] [address] [place] [address] 17123 Urine Culture Done October 14, 2020 11:45pm No CULTURE NOT INDICATED. MAIN LAB [address] [place] [address] 03230 Urine Culture Done January 02, 2021 6:04pm Yes URINE SPECIMEN CULTURED MA[facility] [address] 57181 Urine Culture Done March 16, 2021 6:40pm Yes URINE SPECIMEN CULTURED [facility] [address] [address]15 Urine Test January 02, 2021 6:04pm Negative NEGATIVE [facility] [address] 74832 Sodium Level October 14, 2020 11:38pm 138 mmol/L 137-145 MA[facility] [address] [place] [address] 73317 Sodium Level January 02, 2021 4:44pm 141 mmol/L 137-145 MA[facility] [address] 01551 Sodium Level January 07, 2021 5:35pm 140 mmol/L 137-145 MA[facility] [address] 45882 Sodium Level January 29, 2021 9:57pm 137 mmol/L 137-145 MA[facility] [address] 67190 Sodium Level March 16, 2021 5:34pm 137 mmol/L 137-145 MA[facility] [address] 08541 Sodium Level March 18, 2021 7:56pm 141 mmol/L 137-145 MAIN LAB [facility] [address] [facility] [address] Potassium Level October 14, 2020 11:38pm 3.8 mmol/L 3.6-5.0 [facility] [address] [facility] 24206 Potassium Level January 02, 2021 4:44pm 3.9 mmol/L 3.6-5.0 MAIN [facility] [address] [facility] [address] Potassium Level January 07, 2021 5:35pm 3.7 mmol/L 3.6-5.0 MAIN [facility] [address] [facility] 15187 Potassium Level January 29, 2021 9:57pm 3.5 mmol/L 3.6-5.0 MAIN [facility] [address] [address]68 Potassium Level March 16, 2021 5:34pm 4.0 mmol/L 3.6-5.0 MA[facility] [address] 77733 Potassium Level March 18, 2021 7:56pm 3.4 mmol/L 3.6-5.0 MA[facility] [address] 87813 Chloride Level October 14, 2020 11:38pm 100 mmol/L 98-107 MA[facility] [address] [place] [address] 59836 Chloride Level January 02, 2021 4:44pm 104 mmol/L 98-107 MA[facility] [address] [facility] [address] Chloride Level January 07, 2021 5:35pm 103 mmol/L 98-107 MA[facility] [address] [facility] [address] Chloride Level January 29, 2021 9:57pm 99 mmol/L 98-107 MA[facility] [address] 83813 Chloride Level March 16, 2021 5:34pm 102 mmol/L 98-107 MA[facility] [address] [facility] [address] Chloride Level March 18, 2021 7:56pm 102 mmol/L 98-107 MA[facility] [address] 31788 Carbon Dioxide Level October 14, 2020 11:38pm 25 mmol/L 22-30 [facility] [address] [facility] 21601 Carbon Dioxide Level January 02, 2021 4:44pm 26 mmol/L 22-30 MA[facility] [address] [facility] 95003 Carbon Dioxide Level January 07, 2021 5:35pm 27 mmol/L 22-30 MA[facility] [address] 26686 Carbon Dioxide Level January 29, 2021 9:57pm 27 mmol/L 22-30 MA[facility] [address] 80222 Carbon Dioxide Level March 16, 2021 5:34pm 28 mmol/L 22-30 MA[facility] [address] 43959 Carbon Dioxide Level March 18, 2021 7:56pm 29 mmol/L 22-30 MA[facility] [address] 70403 Anion Gap October 14, 2020 11:38pm 13 7-16 [facility] [address] [place] [address] 72615 Anion Gap January 02, 2021 4:44pm 11 7-16 [facility] [address] [address]59 Anion Gap January 07, 2021 5:35pm 10 7-16 [facility] [address] 95807 Anion Gap January 29, 2021 9:57pm 11 7-16 [facility] [address] 45236 Anion Gap March 16, 2021 5:34pm 7 7-16 MA[facility] [address] 42947 Anion Gap March 18, 2021 7:56pm 10 7-16 MA[facility] [address] 69980 Blood Urea Nitrogen October 14, 2020 11:38pm 15 mg/dL 7-17 MA[facility] [address] [place] [address] 86131 Blood Urea Nitrogen January 02, 2021 4:44pm 11 mg/dL -17 MA[facility] [address] 86954 Blood Urea Nitrogen January 07, 2021 5:35pm 13 mg/dL 11-28 MA[facility] [address] [facility] 79486 Blood Urea Nitrogen January 29, 2021 9:57pm 13 mg/dL 11-28 MA[facility] [address] [facility] 50276 Blood Urea Nitrogen March 16, 2021 5:34pm 10 mg/dL 7 MAIN [facility] [address] 34027 Blood Urea Nitrogen March 18, 2021 7:56pm 10 mg/dL 7- MAIN [facility] [address] [address]309 Creatinine October 14, 2020 11:38pm 0.76 mg/dL 0.52-1.04 MA[facility] [address] [place] [address] 84692 Creatinine January 02, 2021 4:44pm 0.76 mg/dL 0.52-1.04 MAIN [facility] [address] [address]99 Creatinine January 07, 2021 5:35pm 0.79 mg/dL 0.52-1.04 MAIN [facility] [address] 81447 Creatinine January 29, 2021 9:57pm 0.84 mg/dL 0.52-1.04 MAIN [facility] [address] 17523 Creatinine March 16, 2021 5:34pm 0.62 mg/dL 0.52-1.04 MAIN [facility] [address] 46214 Creatinine March 18, 2021 7:56pm 0.66 mg/dL 0.52-1.04 MA[facility] [address] 33002 Glomerular Filtration Rate Calc October 14, 2020 11:38pm > 60 mL/min >60.0 MA[facility] [address] [place] [address] 77196 Glomerular Filtration Rate Calc January 02, 2021 4:44pm > 60 mL/min >60.0 MAIN [facility] [address] [address]33 Glomerular Filtration Rate Calc January 07, 2021 5:35pm > 60 mL/min >60.0 MAIN LAB [place] [address] [facility] [address] Glomerular Filtration Rate Calc January 29, 2021 9:57pm > 60 mL/min >60.0 [facility] [facility] [address] [facility] [address] Glomerular Filtration Rate Calc March 16, 2021 5:34pm > 60 mL/min >60.0 MAIN LAB [address] [address] Glomerular Filtration Rate Calc March 18, 2021 7:56pm > 60 mL/min >60.0 MAIN LAB [facility] [address] [facility] [address] Glucose Level October 14, 2020 11:38pm 88 mg/dL 70-100 MAIN LAB [address] [place] [address] Glucose Level January 02, 2021 4:44pm 88 mg/dL 70-100 MAIN LAB [address] [address] Glucose Level January 07, 2021 5:35pm 105 mg/dL 70-100 MAIN LAB [address] [address] Glucose Level January 29, 2021 9:57pm 92 mg/dL 70-100 MAIN LAB [address] [address] Glucose Level March 16, 2021 5:34pm 90 mg/dL 70-100 MAIN LAB [address] [address] Glucose Level March 18, 2021 7:56pm 84 mg/dL 70-100 MAIN LAB [address] [address] Calcium Level October 14, 2020 11:38pm 9.3 mg/dL 8.4-10.2 MAIN LAB [address] [place] [address] Calcium Level January 02, 2021 4:44pm 9.3 mg/dL 8.4-10.2 MAIN LAB [address] [address] Calcium Level January 07, 2021 5:35pm 9.6 mg/dL 8.4-10.2 MAIN LAB [address] [address] Calcium Level January 29, 2021 9:57pm 9.8 mg/dL 8.4-10.2 MAIN LAB [address] [address] Calcium Level March 16, 2021 5:34pm 9.5 mg/dL 8.4-10.2 MAIN LAB [address] [address] Calcium Level March 18, 2021 7:56pm 9.3 mg/dL 8.4-10.2 MAIN LAB [address] [address] Calcium Adjusted for Albumin October 14, 2020 11:38pm 9.2 mg/dL 8.4-10.2 MAIN LAB [address] [place] [address] Calcium Adjusted for Albumin January 02, 2021 4:44pm 8.8 mg/dL 8.4-10.2 MAIN LAB [address] [address] Calcium Adjusted for Albumin January 07, 2021 5:35pm 9.3 mg/dL 8.4-10.2 MAIN LAB [address] [address] Calcium Adjusted for Albumin March 16, 2021 5:34pm 9.4 mg/dL 8.4-10.2 MAIN LAB [address] [address] Calcium Adjusted for Albumin March 18, 2021 7:56pm 9.1 mg/dL 8.4-10.2 MAIN LAB [address] [address] Iron Level October 14, 2020 11:38pm 36 ug/dL 37-170 MAIN LAB [address] [place] [address] Total Bilirubin October 14, 2020 11:38pm 0.3 mg/dL 0.2-1.3 MAIN LAB [address] [place] [address] Total Bilirubin January 02, 2021 4:44pm 0.4 mg/dL 0.2-1.3 MAIN LAB [address] [address] Total Bilirubin January 07, 2021 5:35pm 0.4 mg/dL 0.2-1.3 MAIN LAB [address] [address] Total Bilirubin March 16, 2021 5:34pm 0.4 mg/dL 0.2-1.3 MAIN LAB [address] [address] Total Bilirubin March 18, 2021 7:56pm 0.4 mg/dL 0.2-1.3 MAIN LAB [address] [address] Aspartate Amino Transf (AST/SGOT) October 14, 2020 11:38pm 55 U/L 14-36 MAIN LAB [address] [place] [address] Aspartate Amino Transf (AST/SGOT) January 02, 2021 4:44pm 39 U/L 14-36 MAIN LAB [address] [address] Aspartate Amino Transf (AST/SGOT) January 07, 2021 5:35pm 38 U/L 14-36 MAIN LAB [address] [address] Aspartate Amino Transf (AST/SGOT) March 16, 2021 5:34pm 36 U/L 14-36 MAIN LAB [address] [address] Aspartate Amino Transf (AST/SGOT) March 18, 2021 7:56pm 37 U/L 14-36 MAIN LAB [address] [address] Alanine Aminotransferase (ALT/SGPT) October 14, 2020 11:38pm 41 U/L <35 As of 09/13/19, the Reference Range for ALT/SGPT for adult patients has been updated. The Reference Range for ALT/SGPT has not been established for patients <18 years of age. MAIN LAB [address] [place] [address] Alanine Aminotransferase (ALT/SGPT) January 02, 2021 4:44pm 21 U/L <35 As of 09/13/19, the Reference Range for ALT/SGPT for adult patients has been updated. The Reference Range for ALT/SGPT has not been established for patients <18 years of age. MAIN LAB [address] [address] Alanine Aminotransferase (ALT/SGPT) January 07, 2021 5:35pm 23 U/L <35 As of 09/13/19, the Reference Range for ALT/SGPT for adult patients has been updated. The Reference Range for ALT/SGPT has not been established for patients <18 years of age. MAIN LAB [address] [address] Alanine Aminotransferase (ALT/SGPT) March 16, 2021 5:34pm 17 U/L <35 As of 09/13/19, the Reference Range for ALT/SGPT for adult patients has been updated. The Reference Range for ALT/SGPT has not been established for patients <18 years of age. MAIN LAB [address] [address] Alanine Aminotransferase (ALT/SGPT) March 18, 2021 7:56pm 19 U/L <35 As of 09/13/19, the Reference Range for ALT/SGPT for adult patients has been updated. The Reference Range for ALT/SGPT has not been established for patients <18 years of age. MAIN LAB [address] [address] Lactic Acid Level March 18, 2021 7:56pm 1.0 mmol/L 0.7-2.1 MAIN LAB [address] [address] Total Protein October 14, 2020 11:38pm 7.4 g/dL 6.3-8.2 MAIN LAB [address] [place] [address] Total Protein January 02, 2021 4:44pm 7.9 g/dL 6.3-8.2 MAIN LAB [address] [address] Total Protein January 07, 2021 5:35pm 7.7 g/dL 6.3-8.2 MAIN LAB [address] [address] Total Protein March 16, 2021 5:34pm 7.2 g/dL 6.3-8.2 MAIN LAB [address] [address] Total Protein March 18, 2021 7:56pm 7.6 g/dL 6.3-8.2 MAIN LAB [address] [address] Albumin October 14, 2020 11:38pm 4.4 g/dL 3.5-5.0 MAIN LAB [address] [place] [address] Albumin January 02, 2021 4:44pm 4.9 g/dL 3.5-5.0 MAIN LAB [address] [address] Albumin January 07, 2021 5:35pm 4.7 g/dL 3.5-5.0 MAIN LAB [address] [address] Albumin March 16, 2021 5:34pm 4.4 g/dL 3.5-5.0 MAIN LAB [address] [address] Albumin March 18, 2021 7:56pm 4.6 g/dL 3.5-5.0 MAIN LAB [address] [address] Alkaline Phosphatase October 14, 2020 11:38pm 55 U/L 38-126 MAIN LAB [address] [place] [address] Alkaline Phosphatase January 02, 2021 4:44pm 58 U/L 38-126 MAIN LAB [address] [address] Alkaline Phosphatase January 07, 2021 5:35pm 58 U/L 38-126 MAIN LAB [address] [address] Alkaline Phosphatase March 16, 2021 5:34pm 45 U/L 38-126 MAIN LAB [address] [address] Alkaline Phosphatase March 18, 2021 7:56pm 47 U/L 38-126 MAIN LAB [address] [address] Lipase October 14, 2020 11:38pm 43 U/L 23-300 MAIN LAB [address] [place] [address] Ferritin October 14, 2020 11:38pm 4.43 ng/mL 10-291 The results of this assay can be falsely decreased in patients who consume Biotin. MAIN LAB [address] [place] [address] Microbiology Results Procedure Source Result Collection Date/Time Result Date/Time Result Comment Performing Site Urine Culture Ur,Clean Catch January 02, 2021 6:40pm January 04, 2021 8:36am MAIN LAB [address] [address] Urine Culture Ur,Clean Catch March 16, 2021 7:39pm March 18, 2021 10:45am MAIN LAB [address] [address] Gram Stain Umbilicus March 16, 2021 10:27am March 17, 2021 8:17am MAIN LAB [address] [address] Diagnostic Imaging Reports Report Dictated Date/Time Dictated By Status Radiology Report January 02, 2021 5:42pm Megan Balderas MD completed [facility] CAT SCAN REPORT PATIENT NAME: EDUARDO [...] 16, 2021 8:09pm Tiburcio Heaton MD completed [facility] CAT SCAN REPORT PATIENT NAME: EDUARDO [...] had a laporoscopy compelted on 03/05/21, at [facility]. States she is having sharp cramping stabbing [...] mm[Hg] 50-85 March 18, 2 021 8:33pm Advance Directives Advance Directive Response Recorded Date/ [...] 2020 11:22pm Pt has a Power of Vertical Borer? No October 14, 2020 11:22pm Do we have a copy on file here at [facility]? No October 14, 2020 11:22pm Insurance Providers Guarantor EDUARDO PAYAN Address [address] [place] [address] Contact [facility]. Home Phone: Payer Policy Id Coverage Id Subscriber's Name Subscriber Id Effective Date Expiration Date [facility] [id number] EDUARDO PAYAN [id number] SELF PAY Self N/A Encounters Encounter Location(s) Arrival/Admit Date Discharge/Depart Date Provider(s) Departed Emergency [facility] October 14, 2020 10:48pm October 15, 2020 12:54am null Departed Emergency [facility] December 29, 2020 4:23pm December 29, 2020 7:13pm null Departed Emergency [facility] January 02, 2021 4:12pm January 02, 2021 7:22pm null Departed Emergency [facility] January 07, 2021 4:48pm January 07, 2021 6:55pm null Departed Emergency [facility] January 21, 2021 2:24pm January 21, 2021 4:51pm null Departed Emergency [facility] January 29, 2021 8:55pm January 29, 2021 11:08pm null Departed Emergency [facility] March 16, 2021 3:28pm March 16, 2021 10:43pm null Departed Emergency [facility] March 18, 2021 6:11pm March 18, 2021 9:19pm null Functional Status Observation Response Date Recorded Living Situation Home March 18 9:19pm With Significant Other March 18, 2021 9:19pm Mental Status Observation Response Date Recorded Comprehension [...] unavailable Pending Tests Test Name Date ordered Blood Culture March 18, 2021 7 :56pm Blood Culture March 18, 2021 9 :10pm Future Visits Future appointment information is unavailable Referrals to Other Providers Reason for Referral Referral Start Date Provider Provider Contact Information Provider Address Spoke with Dr. Chavez and will see for US [facility] Gynecology Work Phone: [address] [place] [phone] No Pcp Mahad Chavez MD Work Phone: [facility] [employer] [address] [place] [id number] No Pcp No Pcp No Pcp [facility] Gynecology Work Phone: [address] [place] [phone] No Pcp No Pcp No Pcp Future Procedures Future procedure information is unavailable Future Medications Future medication information is unavailable Patient Instructions Anemia Caused by Low Iron, A dult (DC) Gastritis (DC) Dental Pain (DC) Severe Abdominal Pain, Adult (DC) Nausea and Vomiting, Adult ( DC) Ovarian Cyst (DC) Ovarian Cyst (DC) Hospital Discharge Instructions Additional Instructions Seen today for postop pain and bleeding. I do not see an appreciable drop in your blood counts fortunately. I do not find any evidence of infection. Today we have treated you for your pain and nausea and given you IV fluids. No change from previous plan to follow-up with [employer]USTRI[employer] MAINTENA[employer]CE REPA[employer]ER as discussed. If you have persistent vomiting, [...]
--- OUTSIDE RECORDS SUMMARY | 2022-11-20 17:49 | XMS_ITS | Continuity of Care Document ---
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 Assembler Name Role Phone Out of Town, Provider Primary Care Provider MD Yolanda Tirado Emergency Provider MD Konstantin Villaseñor Emergency Provider [phone] MD Praveen Harden Emergency Provider KIRA Garcia Emergency Provider MD Pierce Cowan Emergency Provider PCP, of Choice Primary Care Provider Tae Tamayo Emergency Provider MD Sen Segovia Emergency Provider [phone] Chief Complaint and Reason for Visit Chief Complaint HEAVY VAG BLEEDING FALL/ BACK COMPLAINT PELVIC PAIN RIGHT SIDE PAIN 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 POST OP CONCERN POST OP CONCERN, BLEEDING PELVIC PAIN HEAVY VAG BLEEDING Allergies, Adverse Reactions, Alerts Allergen Type Severity Reaction Last Updated Verified Status droperidol Allergy anaphylactic shock Novemb er 2021 2:47pm Yes Active haloperidol Allergy rash March 19, 2022 2:47pm Yes Active ibuprofen Allergy March 19, 2022 2:47pm Yes Active ketorolac Allergy anaphylaxis March 19, 2022 2:47pm Yes Active latex Allergy rash March 19, 2022 2:47pm Yes Active Penicillins Allergy hives March 19, 2022 2:47pm Yes Active prochlorperazine Allergy hives March 19, 2022 2:47pm Yes Active Social History Smoking Status Status Start Date End Date Date of Observa tion Never smoked tobacco (finding) March 19, 2022 3:19pm Observation Status Observation Response Date of Response Alcohol Use Yes March 19 3:19pm alcohol intake frequency a few times a month Nov ember 2021 3:19pm Alcohol type hard liquor March 19 3:19pm Substance/Street Drug Use Yes Novemb er 2021 3:19pm Substance Use Treatment No March 19, 2022 3:19pm substance use type marijuana March 19, 2022 3:19pm Smoking Status Never smoker March 19 3:19pm Additional Data Assigned Sex Female Problems Active Problems Medical Problem Onset Date Status Dysfunctional uterine bleeding A ctive Inactive/Resolved Problems Medical Problem Onset [...] TWICE A DAY 20 Septemb er 2020 12:00am Septem rinku 2020 9:07pm [...] MG PO DAILY 2022 12:00am Gabapentin Active 300 MG PO BEDTIME Aug2020 [...] 2020 3:08pm Oxycodone Disconti nued MG CAPSULE r 2020 12:00am Februa ry 2021 3:37pm Fluticasone Propion-Salme terol (Advair Hfa) 115-21 mcg/actuation HFA aerosol inhaler Active 2 INH INH DAILY Fidel r 2020 12:00am Ondansetron Hcl (Zofran) 4 [...] 2021 12:00am Tranexamic Acid Active MG PO be r 2021 12:00am Procedures Procedure Date Performed Status ED US Abdominal Limited August 10, 2021 4:34pm completed CT Abd Pel w/ Contrast August 07, 2021 12:50pm completed ED US Abdominal Limited March 27, 2021 2:44 pm completed Relevant Diagnostic Tests and/or Laboratory Data Laboratory Results Test Date/Time Result Interpretation Reference Range Result Comment Performing Site White Blood Count March 20, 2021 4:37pm 4.94 1000/mm3 4.8-10.8 [facility] [address] [address] White Blood Count August 07, 2021 1:30pm 4.95 1000/mm3 4.8-10.8 [facility] [address] [address] White Blood Count August 10, 2021 3:14pm 4.83 1000/mm3 4.8-10.8 [facility] [address] [address] White Blood Count November 10, 2021 1:00pm 4.91 1000/mm3 4.8-10.8 [facility] [id number] [address] [address] White Blood Count 2022 8:10pm 5.41 1000/mm3 4.8-10.8 [facility] [id number] [address] [address] Red Blood Count March 20, 2021 4:37pm 4.14 M/mm3 4.20-5.40 MA[facility] LAB [address] [place] [address] Red Blood Count August 07, 2021 1:30pm 4.43 M/mm3 4.20-5.40 MA[facility] [address] [address] Red Blood Count August 10, 2021 3:14pm 3.83 M/mm3 4.20-5.40 [facility] [address] [address] Red Blood Count November 10, 2021 1:00pm 3.22 M/mm3 4.20-5.40 MA[facility] [id number] [address] [address] Red Blood Count 2022 8:10pm 4.00 M/mm3 4.20-5.40 MA[facility] [id number] [address] [address] Hemoglobin March 20, 2021 4:37pm 9.8 g/dL 12.0-16.0 MA[facility] [address] [address] Hemoglobin August 07, 2021 1:30pm 11.4 g/dL 12.0-16.0 MAIN [facility] [address] [address] Hemoglobin August 10, 2021 3:14pm 9.9 g/dL 12.0-16.0 MA[facility] [address] [address] Hemoglobin November 10, 2021 1:00pm 8.4 g/dL 12.0-16.0 MA[facility] [id number] [address] [address] Hemoglobin 2022 8:10pm 8.6 g/dL 12.0-16.0 [facility] [id number] [address] [address] Hematocrit March 20, 2021 4:37pm 32.6 % 37-47 MA[facility] [address] [address] Hematocrit August 07, 2021 1:30pm 36.4 % 37-47 MA[facility] [address] [address] Hematocrit August 10, 2021 3:14pm 31.6 % 37-47 MAIN LAB [facility] [address] [facility] [address] Hematocrit November 10, 2021 1:00pm 26.8 % 37-47 MAIN LAB [id number] [facility] [address] [facility] [address] Hematocrit 2022 8:10pm 29.3 % 37-47 MAIN [facility] [id number] [address] [address] Mean Corpuscular Volume March 20, 2021 4:37pm 78.7 fL 81.0-99.0 MA[facility] [address] [address] Mean Corpuscular Volume August 07, 2021 1:30pm 82.2 fL 81.0-99.0 MAIN [facility] [address] [address] Mean Corpuscular Volume August 10, 2021 3:14pm 82.5 fL 81.0-99.0 MAIN [facility] [address] [address] Mean Corpuscular Volume November 10, 2021 1:00pm 83.2 fL 81.0-99.0 MA[facility] [id number] [address] [address] Mean Corpuscular Volume 2022 8:10pm 73.3 fL 81.0-99.0 MA[facility] [id number] [address] [address] Mean Corpuscular Hemoglobin March 20, 2021 4:37pm 23.7 pg 27-31 MAIN [facility] [address] [address] Mean Corpuscular Hemoglobin August 07, 2021 1:30pm 25.7 pg 27-31 MAIN [facility] [address] [address] Mean Corpuscular Hemoglobin August 10, 2021 3:14pm 25.8 pg 27-31 MA[facility] [address] [address] Mean Corpuscular Hemoglobin November 10, 2021 1:00pm 26.1 pg 27-31 MA[facility] [id number] [address] [address] Mean Corpuscular Hemoglobin 2022 8:10pm 21.5 pg 27-31 MA[facility] [id number] [address] [address] Mean Corpuscular Hemoglobin Concent March 20, 2021 4:37pm 30.1 g/dL 33-37 MAIN [facility] [address] [address] Mean Corpuscular Hemoglobin Concent August 07, 2021 1:30pm 31.3 g/dL 33-37 MAIN [facility] [address] [address] Mean Corpuscular Hemoglobin Concent August 10, 2021 3:14pm 31.3 g/dL 33-37 MAIN [facility] [address] [address] Mean Corpuscular Hemoglobin Concent November 10, 2021 1:00pm 31.3 g/dL 33-37 MAIN LAB [id number] [address] [address] Mean Corpuscular Hemoglobin Concent 2022 8:10pm 29.4 g/dL 33-37 MAIN LAB [id number] [address] [address] Red Cell Distribution Width March 20, 2021 4:37pm 16.5 % 11.5-14.5 MAIN [facility] [address] [address] Red Cell Distribution Width August 07, 2021 1:30pm 14.0 % 11.5-14.5 MAIN [facility] [address] [address] Red Cell Distribution Width August 10, 2021 3:14pm 14.0 % 11.5-14.5 MAIN [facility] [address] [address] Red Cell Distribution Width November 10, 2021 1:00pm 14.4 % 11.5-14.5 MA[facility] [id number] [address] [address] Red Cell Distribution Width 2022 8:10pm 15.2 % 11.5-14.5 MA[facility] [id number] [address] [address] Platelet Count March 20, 2021 4:37pm 177 1000/mm3 140-440 MAIN [facility] [address] [address] Platelet Count August 07, 2021 1:30pm 207 1000/mm3 140-440 MAIN [facility] [address] [address] Platelet Count August 10, 2021 3:14pm 189 1000/mm3 140-440 MA[facility] [address] [address] Platelet Count November 10, 2021 1:00pm 282 1000/mm3 140-440 MAIN [facility] [id number] [address] [address] Platelet Count 2022 8:10pm 217 1000/mm3 140-440 MA[facility] [id number] [address] [address] Mean Platelet Volume March 20, 2021 4:37pm 9.9 fL 7.4-10.4 MAIN [facility] [address] [address] Mean Platelet Volume August 07, 2021 1:30pm 11.0 fL 7.4-10.4 MAIN [facility] [address] [address] Mean Platelet Volume August 10, 2021 3:14pm 10.7 fL 7.4-10.4 MAIN [facility] [address] [address] Mean Platelet Volume November 10, 2021 1:00pm 10.5 fL 7.4-10.4 MA[facility] [id number] [address] [address] Mean Platelet Volume 2022 8:10pm 12.9 fL 7.4-10.4 MAIN [facility] [id number] [address] [address] Neutrophils (%) (Auto) March 20, 2021 4:37pm 64.0 % 40.0-72.0 MA[facility] [address] [address] Neutrophils (%) (Auto) August 07, 2021 1:30pm 67.7 % 40.0-72.0 MAIN [facility] [address] [address] Neutrophils (%) (Auto) August 10, 2021 3:14pm 58.2 % 40.0-72.0 MA[facility] [address] [address] Neutrophils (%) (Auto) November 10, 2021 1:00pm 67.8 % 40.0-72.0 MA[facility] [id number] [address] [address] Neutrophils (%) (Auto) 2022 8:10pm 58.0 % 40.0-72.0 MAIN [facility] [id number] [address] [address] Lymphocytes (%) (Auto) March 20, 2021 4:37pm 26.1 % 17-45 MAIN [facility] [address] [address] Lymphocytes (%) (Auto) August 07, 2021 1:30pm 24.2 % 17-45 [facility] [address] [address] Lymphocytes (%) (Auto) August 10, 2021 3:14pm 32.3 % 17-45 [facility] [address] [address] Lymphocytes (%) (Auto) November 10, 2021 1:00pm 23.4 % 17-45 [facility] [id number] [address] [address] Lymphocytes (%) (Auto) 2022 8:10pm 31.4 % 17-45 [facility] [id number] [address] [address] Monocytes (%) (Auto) March 20, 2021 4:37pm 5.9 % 3-11 MA[facility] [address] [address] Monocytes (%) (Auto) August 07, 2021 1:30pm 5.9 % 3-11 MA[facility] [address] [address] Monocytes (%) (Auto) August 10, 2021 3:14pm 6.6 % 3-11 MA[facility] [address] [address] Monocytes (%) (Auto) November 10, 2021 1:00pm 4.7 % 3-11 MA[facility] [id number] [address] [address] Monocytes (%) (Auto) 2022 8:10pm 7.6 % 3-11 MA[facility] [id number] [address] [address] Eosinophils (%) (Auto) March 20, 2021 4:37pm 2.8 % 0-3 MA[facility] [address] [address] Eosinophils (%) (Auto) August 07, 2021 1:30pm 1.2 % 0-3 MA[facility] [address] [address] Eosinophils (%) (Auto) August 10, 2021 3:14pm 2.1 % 0-3 MAIN [facility] [address] [address] Eosinophils (%) (Auto) November 10, 2021 1:00pm 3.1 % 0-3 MA[facility] [id number] [address] [address] Eosinophils (%) (Auto) 2022 8:10pm 1.7 % 0-3 MA[facility] [id number] [address] [address] Basophils (%) (Auto) March 20, 2021 4:37pm 1.0 % 0-1 MA[facility] [address] [address] Basophils (%) (Auto) August 07, 2021 1:30pm 0.8 % 0-1 MA[facility] [address] [address] Basophils (%) (Auto) August 10, 2021 3:14pm 0.6 % 0-1 [facility] [address] [address] Basophils (%) (Auto) November 10, 2021 1:00pm 0.6 % 0-1 MA[facility] [id number] [address] [address] Basophils (%) (Auto) 2022 8:10pm 1.1 % 0-1 MA[facility] [id number] [address] [address] Immature Granulocyte % (Auto) March 20, 2021 4:37pm 0.2 % 0-1 MA[facility] [address] [address] Immature Granulocyte % (Auto) August 07, 2021 1:30pm 0.2 % 0-1 [facility] [address] [address] Immature Granulocyte % (Auto) August 10, 2021 3:14pm 0.2 % 0-1 MA[facility] [address] [address] Immature Granulocyte % (Auto) November 10, 2021 1:00pm 0.4 % 0-1 MA[facility] [id number] [address] [address] Immature Granulocyte % (Auto) 2022 8:10pm 0.2 % 0-1 MA[facility] [id number] [address] [address] Neutrophils # (Auto) March 20, 2021 4:37pm 3.16 1000/mm3 1.4-6.5 MAIN [facility] [address] [address] Neutrophils # (Auto) August 07, 2021 1:30pm 3.35 1000/mm3 1.4-6.5 MA[facility] [address] [address] Neutrophils # (Auto) August 10, 2021 3:14pm 2.81 1000/mm3 1.4-6.5 MA[facility] [address] [address] Neutrophils # (Auto) November 10, 2021 1:00pm 3.33 1000/mm3 1.4-6.5 [facility] [id number] [address] [address] Neutrophils # (Auto) 2022 8:10pm 3.14 1000/mm3 1.4-6.5 [facility] [id number] [address] [address] Lymphocytes # (Auto) March 20, 2021 4:37pm 1.29 1000/mm3 1.2-3.4 [facility] [address] [address] Lymphocytes # (Auto) August 07, 2021 1:30pm 1.20 1000/mm3 1.2-3.4 [facility] [address] [address] Lymphocytes # (Auto) August 10, 2021 3:14pm 1.56 1000/mm3 1.2-3.4 [facility] [address] [address] Lymphocytes # (Auto) November 10, 2021 1:00pm 1.15 1000/mm3 1.2-3.4 MA[facility] [id number] [address] [address] Lymphocytes # (Auto) 2022 8:10pm 1.70 1000/mm3 1.2-3.4 MA[facility] [id number] [address] [address] Monocytes # (Auto) March 20, 2021 4:37pm 0.29 1000/mm3 0.0-0.8 [facility] [address] [address] Monocytes # (Auto) August 07, 2021 1:30pm 0.29 1000/mm3 0.0-0.8 [facility] [address] [address] Monocytes # (Auto) August 10, 2021 3:14pm 0.32 1000/mm3 0.0-0.8 [facility] [address] [address] Monocytes # (Auto) November 10, 2021 1:00pm 0.23 1000/mm3 0.0-0.8 MA[facility] [id number] [address] [address] Monocytes # (Auto) 2022 8:10pm 0.41 1000/mm3 0.0-0.8 MA[facility] [id number] [address] [address] Eosinophils # (Auto) March 20, 2021 4:37pm 0.14 1000/mm3 0.0-0.7 [facility] [address] [address] Eosinophils # (Auto) August 07, 2021 1:30pm 0.06 1000/mm3 0.0-0.7 [facility] [address] [address] Eosinophils # (Auto) August 10, 2021 3:14pm 0.10 1000/mm3 0.0-0.7 [facility] [address] [address] Eosinophils # (Auto) November 10, 2021 1:00pm 0.15 1000/mm3 0.0-0.7 [facility] [id number] [address] [address] Eosinophils # (Auto) 2022 8:10pm 0.09 1000/mm3 0.0-0.7 [facility] [id number] [address] [address] Basophils # (Auto) March 20, 2021 4:37pm 0.05 1000/mm3 0.0-0.1 MA[facility] [address] [address] Basophils # (Auto) August 07, 2021 1:30pm 0.04 1000/mm3 0.0-0.1 [facility] [address] [address] Basophils # (Auto) August 10, 2021 3:14pm 0.03 1000/mm3 0.0-0.1 MA[facility] [address] [address] Basophils # (Auto) November 10, 2021 1:00pm 0.03 1000/mm3 0.0-0.1 [facility] [id number] [address] [address] Basophils # (Auto) 2022 8:10pm 0.06 1000/mm3 0.0-0.1 [facility] [id number] [address] [address] Absolute Immature Granulocyte (auto March 20, 2021 4:37pm 0.0 0-1 [facility] [address] [address] Absolute Immature Granulocyte (auto August 07, 2021 1:30pm 0.0 0-1 [facility] [address] [address] Absolute Immature Granulocyte (auto August 10, 2021 3:14pm 0.0 0-1 [facility] [address] [address] Absolute Immature Granulocyte (auto November 10, 2021 1:00pm 0.0 0-1 [facility] [id number] [address] [address] Absolute Immature Granulocyte (auto 2022 8:10pm 0.0 0-1 [facility] [id number] [address] [address] Differential Method March 20, 2021 4:37pm Automated [facility] [address] [address] Differential Method August 07, 2021 1:30pm Automated [facility] [address] [address] Differential Method August 10, 2021 3:14pm Automated [facility] [address] [address] Differential Method November 10, 2021 1:00pm Automated MA[facility] [id number] [address] [address] Differential Method 2022 8:10pm Automated MAIN [facility] [id number] [address] [address] Urine RBC June 27, 2021 4:10pm 0-2 /hpf 0-2 [facility] [address] [address] Urine WBC June 27, 2021 4:10pm None seen /hpf 0-5 MA[facility] [address] [address] Urine Squamous Epithelial Cells June 27, 2021 4:10pm 2+ /hpf MA[facility] [address] [address] Urine Bacteria June 27, 2021 4:10pm 1+ /hpf NONE SEEN MA[facility] [address] [address] Urine Mucus June 27, 2021 4:10pm Present MAIN [facility] [address] [address] Urine Culture Done June 27, 2021 4:10pm No CULTURE NOT INDICATED. MAIN LAB [address] [address] Sodium Level March 20, 2021 5:04pm 140 mmol/L 137-145 MA[facility] [address] [address] Sodium Level August 07, 2021 1:30pm 141 mmol/L 137-145 MA[facility] [address] [address] Sodium Level August 10, 2021 3:14pm 140 mmol/L 137-145 [facility] [address] [address] Sodium Level November 10, 2021 1:00pm 139 mmol/L 137-145 MA[facility] [id number] [address] [address] Sodium Level 2022 8:10pm 140 mmol/L 137-145 MA[facility] [id number] [address] [address] Potassium Level March 20, 2021 5:04pm 3.8 mmol/L 3.6-5.0 MA[facility] [address] [address] Potassium Level August 07, 2021 1:30pm 4.3 mmol/L 3.6-5.0 MAIN [facility] [address] [address] Potassium Level August 10, 2021 3:14pm 4.0 mmol/L 3.6-5.0 MAIN [facility] [address] [address] Potassium Level November 10, 2021 1:00pm 4.2 mmol/L 3.6-5.0 [facility] [id number] [facility] [address] [facility] [address] Potassium Level 2022 8:10pm 3.7 mmol/L 3.6-5.0 [facility]IN LAB [id number] [facility] [address] [facility] [address] Chloride Level March 20, 2021 5:04pm 103 mmol/L 98-107 [facility] [address] [facility] [address] Chloride Level August 07, 2021 1:30pm 105 mmol/L 98-107 [facility] [address] [facility] [address] Chloride Level August 10, 2021 3:14pm 103 mmol/L 98-107 [facility] [address] [address] Chloride Level November 10, 2021 1:00pm 104 mmol/L 98-107 [facility] [id number] [address] [address] Chloride Level 2022 8:10pm 102 mmol/L 98-107 [facility] [id number] [address] [address] Carbon Dioxide Level March 20, 2021 5:04pm 27 mmol/L 22-30 [facility] [address] [address] Carbon Dioxide Level August 07, 2021 1:30pm 24 mmol/L 22-30 [facility] [address] [facility] [address] Carbon Dioxide Level August 10, 2021 3:14pm 26 mmol/L 22-30 [facility] [address] [facility] [address] Carbon Dioxide Level November 10, 2021 1:00pm 24 mmol/L 22-30 [facility] [id number] [facility] [address] [facility] [address] Carbon Dioxide Level 2022 8:10pm 30 mmol/L 22-30 [facility] [id number] [facility] [address] [facility] [address] Anion Gap March 20, 2021 5:04pm 10 7-16 MA[facility] LAB [address] [place] [address] Anion Gap August 07, 2021 1:30pm 12 7-16 [facility] [address] [facility] [address] Anion Gap August 10, 2021 3:14pm 11 7-16 [facility] [address] [facility] [address] Anion Gap November 10, 2021 1:00pm 11 7-16 [facility] [id number] [address] [address] Anion Gap 2022 8:10pm 8 7-16 [facility] [id number] [address] [address] Blood Urea Nitrogen March 20, 2021 5:04pm 5 mg/dL 7-17 [facility] [address] [address] Blood Urea Nitrogen August 07, 2021 1:30pm 14 mg/dL 7-17 [facility] [address] [address] Blood Urea Nitrogen August 10, 2021 3:14pm 7 mg/dL 7-17 [facility] [address] [address] Blood Urea Nitrogen November 10, 2021 1:00pm 7 mg/dL 7-17 [facility] [id number] [address] [address] Blood Urea Nitrogen 2022 8:10pm 8 mg/dL 7-17 [facility] [id number] [address] [address] Creatinine March 20, 2021 5:04pm 0.59 mg/dL 0.52-1.04 MA[facility] [address] [address] Creatinine August 07, 2021 1:30pm 0.65 mg/dL 0.52-1.04 MA[facility] [address] [address] Creatinine August 10, 2021 3:14pm 0.60 mg/dL 0.52-1.04 MA[facility] [address] [address] Creatinine November 10, 2021 1:00pm 0.76 mg/dL 0.52-1.04 MA[facility] [id number] [address] [address] Creatinine 2022 8:10pm 0.66 mg/dL 0.52-1.04 [facility] [id number] [address] [address] Glomerular Filtration Rate Calc March 20, 2021 5:04pm > 60 mL/min >60.0 MA[facility] [address] [facility] [address] Glomerular Filtration Rate Calc August 07, 2021 1:30pm > 60 mL/min >60.0 MA[facility] [address] [address] Glomerular Filtration Rate Calc August 10, 2021 3:14pm > 60 mL/min >60.0 [facility] [address] [address] Glomerular Filtration Rate Calc November 10, 2021 1:00pm > 60 mL/min >60.0 [facility] [id number] [address] [address] Glomerular Filtration Rate Calc 2022 8:10pm > 60 mL/min >60.0 MA[facility] [id number] [address] [address] Glucose Level March 20, 2021 5:04pm 91 mg/dL 70-100 MA[facility] [address] [address] Glucose Level August 07, 2021 1:30pm 100 mg/dL 70-100 MA[facility] [address] [address] Glucose Level August 10, 2021 3:14pm 85 mg/dL 70-100 MA[facility] [address] [address] Glucose Level November 10, 2021 1:00pm 95 mg/dL 70-100 MA[facility] [id number] [address] [address] Glucose Level 2022 8:10pm 97 mg/dL 70-100 MA[facility] [id number] [address] [address] Calcium Level March 20, 2021 5:04pm 9.4 mg/dL 8.4-10.2 MA[facility] [address] [address] Calcium Level August 07, 2021 1:30pm 9.8 mg/dL 8.4-10.2 MA[facility] [address] [address] Calcium Level August 10, 2021 3:14pm 9.2 mg/dL 8.4-10.2 [facility] [address] [address] Calcium Level November 10, 2021 1:00pm 9.6 mg/dL 8.4-10.2 [facility] [id number] [address] [address] Calcium Level 2022 8:10pm 9.2 mg/dL 8.4-10.2 MA[facility] LAB [id number] [address] [address] Calcium Adjusted for Albumin August 07, 2021 1:30pm 9.2 mg/dL 8.4-10.2 [facility] [address] [address] Total Bilirubin August 07, 2021 1:30pm 0.6 mg/dL 0.2-1.3 MAIN [facility] [address] [address] Aspartate Amino Transf (AST/SGOT) August 07, 2021 1:30pm 48 U/L 14-36 MAIN [facility] [address] [address] Alanine Aminotransferase (ALT/SGPT) August 07, 2021 1:30pm 36 U/L <35 As of 09/13/19, the Reference Range for ALT/SGPT for adult patients has been updated. The Reference Range for ALT/SGPT has not been established for patients <18 years of age. MAIN LAB [address] [address] Total Protein August 07, 2021 1:30pm 8.3 g/dL 6.3-8.2 MA[facility] [address] [address] Albumin August 07, 2021 1:30pm 5.0 g/dL 3.5-5.0 [facility] [address] [address] Alkaline Phosphatase August 07, 2021 1:30pm 58 U/L 38-126 MAIN LAB [facility] [address] [facility] [address] Lipase August 07, 2021 1:30pm 64 U/L 23-[address] [address] Diagnostic Imaging Reports Report Dictated Date/Time Dictated By Status Radiology Report August 07, 2021 4:03pm Yuli Jiang DO completed [facility] CAT SCAN REPORT PATIENT NAME: EDUARDO [...] Reading Result Reference Range Collection Date/Time Height 64 [in_i] March 20, 021 2:44pm Weight 95.25 kg March 20, 021 2:44pm Body Temperature 97.7 [degF] 97.6-99.6 [...] 27, 2021 2:20pm Respiratory rate 18 /min 12-24 March 272020 2:20pm Oxygen saturation by Pulse [...] August 10 5:10pm Respiratory rate 18 /min 12-24 August 10, 2021 5:10pm Oxygen saturation by Pulse [...] mm[Hg] 50-85 March 19, 2 022 2:48pm Advance Directives Advance Directive Response Recorded Date/ Time Does patient have an Advance Directive? No 2022 7:29pm Does patient have a COLST form? No 2022 7:29pm Insurance Providers Guarantor EDUARDO PAYAN Address [address] [place] [address] Contact Info. Home Phone: Payer Policy Id Coverage Id Subscriber's Name Subscriber Id Effective Date Expiration Date [facility] [id number] EUDARDO PAYAN [id number] SELF PAY Self N/A Encounters Encounter Location(s) Arrival/Admit Date Discharge/Depart Date Provider(s) Departed Emergency [facility]gency Department March [...] August 26, 2021 7:15pm null Departed Emergency [facility] September 23, 2021 3:02pm September 23, 2021 7:35pm null Departed Emergency [facility] November 10, 2021 11:22am November 10, 2021 5:45pm null Departed Emergency [facility] 2022 5:23pm 2022 9:55pm null Departed Emergency [facility] February 20, 2022 2:39pm February 20, 2022 3:42pm null [facility] Emergency [facility] March 19, 2022 2:34pm March 19, 2022 4:09pm null Functional Status Observation Response Date Recorded Living Situation Home March 19, 022 2:55pm Mental Status Observation Response Date Recorded Comprehension Ability Understands Concepts Novem 2021 3:30pm Mood/Behavior Appropriate March 19 3:30pm Speech Appropriate September 23, 2021 3 :50pm Plan of Treatment Future Tests Future scheduled test information is unavailable Pending Tests Pending diagnostic test information is unavailable Future Visits Future appointment information is unavailable Referrals to Other Providers Reason for Referral Referral Start Date Provider Provider Contact Information Provider Address Ashlie Richard Work Phone: [address] [place] [address] No Pcp No Pcp [facility] Work Phone: [facility] [address] [facility] [address] Out Town Out [place] Emely holloway MD Work Phone: [facility] [employer] [address] [facility] [address] [facility] Work Phone: [address] [facility] [phone] No Pcp Emely holloway MD Work Phone: [facility] [employer] [address] [facility] [address] Out Town [facility] Gynecology and Oncology Work Phone: [address] [place] [address] Level 4 [facility] [address] [place] Future Procedures Future procedure information is unavailable Future Medications Future medication information is unavailable Patient Instructions Diarrhea and Travelers' Diar rodriguez, Adult (DC) Pelvic Pain (DC) Nausea and Vomiting After Surgery Constipation, Adult (DC) Diarrhea and Travelers' Diar rodriguez, Adult (DC) Nausea and Vomiting, Adult (DC) Pelvic Pain (DC) Endometriosis (DC) Abdominal Pain, Adult ED Chronic Pelvic Pain (DC) Abdominal Pain, Adult ED
--- OUTSIDE RECORDS SUMMARY | 2022-11-20 17:50 | XMS_ITS | Continuity of Care Document ---
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 Role Phone MD Yolanda Dial Emergency Provider PCP, of Choice Primary Care Provider MD Konstantin Donis Emergency Provider [phone] Tae Quiroz Emergency Provider MD Sen Segovia Emergency Provider [phone] MD Cory Murillo Emergency Provider Care Teams Patient Care Team Team Status: Active Member Role Status Dates of Choice PCP Primary Care Provider Active Visit Care Team Team Status: Inactive Member Role Status Dates Yolanda Dial MD Emergency Provider Active of Choice [...] Active Sen Segovia MD Emergency Provider Active Patient Care Team Team [...] VAG BLEEDING VAG BLEEDING LOWER ABD/PELVIC PAIN Allergies, Adverse Reactions, Alerts Allergen Type Severity Reaction Last Updated Verified Status droperidol Allergy anaphylactic shock August 28, 2022 2:04pm Yes Active haloperidol Allergy rash August 28 2 023 2:04pm Yes Active ibuprofen Allergy August 28 2:04pm Yes Active ketorolac Allergy anaphylaxis August 28 2 023 2:04pm Yes Active latex Allergy rash August 28 2:04pm Yes Active Penicillins Allergy hives August 28 2 023 2:04pm Yes Active prochlorperazine Allergy hives August 282022 2:04pm Yes Active Social History Smoking Status Status Start Date End Date Date of Observa tion Never smoked tobacco (finding) August 28, 2022 2:39pm Observation Status Observation Response Date of Response Alcohol Use Yes August 28, 2022 2:39pm alcohol intake frequency a few times a month Apr 2022 2:39pm Alcohol type hard liquor August 28, 2022 2:39pm Substance/Street Drug Use Yes August 28, 2022 2:39pm Substance Use Treatment No August 282022 2:39pm substance use type marijuana August 28 023 2:39pm Smoking Status Never smoker August 28, 2022 2:39pm Additional Data Assigned Sex Female Problems Active Problems Medical Problem Onset Date Status Acute cervicitis Active Inactive/Resolved Problems Medical Problem Onset Date [...] MG PO DAILY October 15, 2020 12:00am [facility] 2020 5:42pm Hydrocodone-A cetaminophen Disconti nued TABLET December 29, 2020 12:00am January 07, 2021 5:04pm Cefdinir Disconti nued 300 MG PO TWICE A DAY [facility] 2020 12:00am Septem rinku 2020 9:07pm Tramadol Disconti nued 50 MG PO Q8H 10 [facility] 2020 12:00am Septem rinku 2020 9:06pm [...] nued 4 [facility] Q[facility]H [facility] 1:01am Sulfamethoxaz ole-Trimethop rim (Bactrim Ds) 800-160 mg tablet Disconti nued 1 TAB PO TW[facility] A DAY [facility] 2020 1:25pm Tizanidine Disconti nued 4 MG PO As Directed August 07, 2021 12:00am November 10, 2021 12:18p m Ondansetron Active 4 - 8 MG PO Q8H 8 August 07, 2021 12:00am Tranexamic Acid Active [facility] Procedures Procedure Date Performed Status Wet Prep completed Relevant Diagnostic Tests and/or Laboratory Data Laboratory Results Test Date/Time Result Interpretation Reference Range Result Comment Performing Site White Blood Count November 10, 2021 1:00pm 4.91 1000/mm3 4.8-10.8 [facility] [id number] [address] [address] White Blood Count 2022 8:10pm 5.41 1000/mm3 4.8-10.8 [facility] [id number] [address] [address] White Blood Count April 06, 2022 11:27am 3.71 1000/mm3 4.8-10.8 [facility] [id number] [address] [address] White Blood Count August 28, 2022 5:10pm 5.35 1000/mm3 4.8-10.8 [facility] [id number] [address] [address] Red Blood Count November 10, 2021 1:00pm 3.22 M/mm3 4.20-5.40 MA[facility] [id number] [address] [address] Red Blood Count 2022 8:10pm 4.00 M/mm3 4.20-5.40 MAIN [facility] [id number] [address] [address] Red Blood Count April 06, 2022 11:27am 3.66 M/mm3 4.20-5.40 [facility] [id number] [address] [address] Red Blood Count August 28, 2022 5:10pm 4.13 M/mm3 4.20-5.40 MA[facility] LAB [id number] [address] [address] Hemoglobin November 10, 2021 1:00pm 8.4 g/dL 12.0-16.0 [facility] LAB [id number] [address] [address] Hemoglobin 2022 8:10pm 8.6 g/dL 12.0-16.0 [facility] [id number] [address] [address] Hemoglobin April 06, 2022 11:27am 8.5 g/dL 12.0-16.0 [facility] [id number] [address] [address] Hemoglobin August 28, 2022 5:10pm 9.2 g/dL 12.0-16.0 MA[facility] LAB [id number] [address] [address] Hematocrit November 10, 2021 1:00pm 26.8 % 37-47 MAIN LAB [id number] [address] [address] Hematocrit 2022 8:10pm 29.3 % 37-47 MAIN LAB [id number] [address] [address] Hematocrit April 06, 2022 11:27am 27.6 % 37-47 MAIN LAB [id number] [address] [address] Hematocrit August 28, 2022 5:10pm 30.8 % 37-47 MAIN LAB [id number] [address] [address] Mean Corpuscular Volume November 10, 2021 1:00pm 83.2 fL 81.0-99.0 [facility] LAB [id number] [address] [address] Mean Corpuscular Volume 2022 8:10pm 73.3 fL 81.0-99.0 MA[facility] [id number] [address] [address] Mean Corpuscular Volume April 06, 2022 11:27am 75.4 fL 81.0-99.0 MAIN LAB [id number] [address] [address] Mean Corpuscular Volume August 28, 2022 5:10pm 74.6 fL 81.0-99.0 MAIN LAB [id number] [address] [address] Mean Corpuscular Hemoglobin November 10, 2021 1:00pm 26.1 pg 27-31 MAIN LAB [id number] [address] [address] Mean Corpuscular Hemoglobin 2022 8:10pm 21.5 pg 27-31 MAIN [facility] [id number] [address] [address] Mean Corpuscular Hemoglobin April 06, 2022 11:27am 23.2 pg 27-31 MA[facility] [id number] [address] [address] Mean Corpuscular Hemoglobin August 28, 2022 5:10pm 22.3 pg 27-31 MA[facility] [id number] [address] [address] Mean Corpuscular Hemoglobin Concent November 10, 2021 1:00pm 31.3 g/dL 33-37 MAIN LAB [id number] [address] [address] Mean Corpuscular Hemoglobin Concent 2022 8:10pm 29.4 g/dL 33-37 MAIN [facility] [id number] [address] [address] Mean Corpuscular Hemoglobin Concent April 06, 2022 11:27am 30.8 g/dL 33-37 MA[facility] [id number] [address] [address] Mean Corpuscular Hemoglobin Concent August 28, 2022 5:10pm 29.9 g/dL 33-37 MAIN LAB [id number] [address] [address] Red Cell Distribution Width November 10, 2021 1:00pm 14.4 % 11.5-14.5 MAIN LAB [id number] [address] [address] Red Cell Distribution Width 2022 8:10pm 15.2 % 11.5-14.5 MAIN [facility] [id number] [address] [address] Red Cell Distribution Width April 06, 2022 11:27am 16.4 % 11.5-14.5 MAIN LAB [id number] [address] [address] Red Cell Distribution Width August 28, 2022 5:10pm 14.2 % 11.5-14.5 MA[facility] [id number] [address] [address] Platelet Count November 10, 2021 1:00pm 282 1000/mm3 140-440 MAIN LAB [id number] [address] [address] Platelet Count 2022 8:10pm 217 1000/mm3 140-440 MAIN LAB [id number] [address] [address] Platelet Count April 06, 2022 11:27am 174 1000/mm3 140-440 MAIN LAB [id number] [address] [address] Platelet Count August 28, 2022 5:10pm 216 1000/mm3 140-440 MAIN LAB [id number] [address] [address] Mean Platelet Volume November 10, 2021 1:00pm 10.5 fL 7.4-10.4 MAIN LAB [id number] [address] [address] Mean Platelet Volume 2022 8:10pm 12.9 fL 7.4-10.4 MA[facility] LAB [id number] [address] [address] Mean Platelet Volume August 28, 2022 5:10pm 10.4 fL 7.4-10.4 MAIN LAB [id number] [address] [address] Neutrophils (%) (Auto) November 10, 2021 1:00pm 67.8 % 40.0-72.0 MAIN LAB [id number] [address] [address] Neutrophils (%) (Auto) 2022 8:10pm 58.0 % 40.0-72.0 MAIN LAB [id number] [address] [address] Neutrophils (%) (Auto) April 06, 2022 11:27am 55.7 % 40.0-72.0 MAIN LAB [id number] [address] [address] Neutrophils (%) (Auto) August 28, 2022 5:10pm 68.4 % 40.0-72.0 MAIN LAB [id number] [address] [address] Lymphocytes (%) (Auto) November 10, 2021 1:00pm 23.4 % 17-45 MAIN LAB [id number] [address] [address] Lymphocytes (%) (Auto) 2022 8:10pm 31.4 % 17-45 MAIN LAB [id number] [address] [address] Lymphocytes (%) (Auto) April 06, 2022 11:27am 34.0 % 17-45 MAIN LAB [id number] [address] [address] Lymphocytes (%) (Auto) August 28, 2022 5:10pm 24.1 % 17-45 MAIN LAB [id number] [address] [address] Monocytes (%) (Auto) November 10, 2021 1:00pm 4.7 % 3-11 MAIN LAB [id number] [address] [address] Monocytes (%) (Auto) 2022 8:10pm 7.6 % 3-11 MAIN LAB [id number] [address] [address] Monocytes (%) (Auto) April 06, 2022 11:27am 6.5 % 3-11 MAIN LAB [id number] [address] [address] Monocytes (%) (Auto) August 28, 2022 5:10pm 5.0 % 3-11 MAIN LAB [id number] [address] [address] Eosinophils (%) (Auto) November 10, 2021 1:00pm 3.1 % 0-3 MAIN LAB [id number] [address] [address] Eosinophils (%) (Auto) 2022 8:10pm 1.7 % 0-3 MAIN LAB [id number] [address] [address] Eosinophils (%) (Auto) April 06, 2022 11:27am 2.4 % 0-3 MAIN LAB [id number] [address] [address] Eosinophils (%) (Auto) August 28, 2022 5:10pm 1.5 % 0-3 MAIN [facility] [id number] [address] [address] Basophils (%) (Auto) November 10, 2021 1:00pm 0.6 % 0-1 MAIN LAB [id number] [address] [address] Basophils (%) (Auto) 2022 8:10pm 1.1 % 0-1 MAIN LAB [id number] [address] [address] Basophils (%) (Auto) April 06, 2022 11:27am 1.1 % 0-1 MAIN LAB [id number] [address] [address] Basophils (%) (Auto) August 28, 2022 5:10pm 0.6 % 0-1 MAIN LAB [id number] [address] [address] Immature Granulocyte % (Auto) November 10, 2021 1:00pm 0.4 % 0-1 MAIN LAB [id number] [address] [address] Immature Granulocyte % (Auto) 2022 8:10pm 0.2 % 0-1 MAIN LAB [id number] [address] [address] Immature Granulocyte % (Auto) April 06, 2022 11:27am 0.3 % 0-1 MAIN LAB [id number] [address] [address] Immature Granulocyte % (Auto) August 28, 2022 5:10pm 0.4 % 0-1 MAIN LAB [id number] [address] [address] Neutrophils # (Auto) November 10, 2021 1:00pm 3.33 1000/mm3 1.4-6.5 MAIN LAB [id number] [address] [address] Neutrophils # (Auto) 2022 8:10pm 3.14 1000/mm3 1.4-6.5 MAIN LAB [id number] [address] [place] [address] Neutrophils # (Auto) April 06, 2022 11:27am 2.07 1000/mm3 1.4-6.5 MAIN [facility] [id number] [address] [address] Neutrophils # (Auto) August 28, 2022 5:10pm 3.66 1000/mm3 1.4-6.5 MAIN LAB [id number] [address] [address] Lymphocytes # (Auto) November 10, 2021 1:00pm 1.15 1000/mm3 1.2-3.4 MAIN LAB [id number] [address] [address] Lymphocytes # (Auto) 2022 8:10pm 1.70 1000/mm3 1.2-3.4 MAIN [facility] [id number] [address] [address] Lymphocytes # (Auto) April 06, 2022 11:27am 1.26 1000/mm3 1.2-3.4 MAIN LAB [id number] [address] [address] Lymphocytes # (Auto) August 28, 2022 5:10pm 1.29 1000/mm3 1.2-3.4 MAIN LAB [id number] [address] [address] Monocytes # (Auto) November 10, 2021 1:00pm 0.23 1000/mm3 0.0-0.8 MAIN LAB [id number] [address] [address] Monocytes # (Auto) 2022 8:10pm 0.41 1000/mm3 0.0-0.8 MAIN LAB [id number] [address] [address] Monocytes # (Auto) April 06, 2022 11:27am 0.24 1000/mm3 0.0-0.8 MAIN LAB [id number] [address] [address] Monocytes # (Auto) August 28, 2022 5:10pm 0.27 1000/mm3 0.0-0.8 MAIN LAB [id number] [address] [address] Eosinophils # (Auto) November 10, 2021 1:00pm 0.15 1000/mm3 0.0-0.7 MAIN LAB [id number] [address] [address] Eosinophils # (Auto) 2022 8:10pm 0.09 1000/mm3 0.0-0.7 MAIN LAB [id number] [address] [address] Eosinophils # (Auto) April 06, 2022 11:27am 0.09 1000/mm3 0.0-0.7 MAIN LAB [id number] [address] [address] Eosinophils # (Auto) August 28, 2022 5:10pm 0.08 1000/mm3 0.0-0.7 MAIN LAB [id number] [address] [address] Basophils # (Auto) November 10, 2021 1:00pm 0.03 1000/mm3 0.0-0.1 MAIN LAB [id number] [address] [address] Basophils # (Auto) 2022 8:10pm 0.06 1000/mm3 0.0-0.1 MAIN LAB [id number] [address] [address] Basophils # (Auto) April 06, 2022 11:27am 0.04 1000/mm3 0.0-0.1 MAIN LAB [id number] [address] [address] Basophils # (Auto) August 28, 2022 5:10pm 0.03 1000/mm3 0.0-0.1 MAIN LAB [id number] [address] [address] Absolute Immature Granulocyte (auto November 10, 2021 1:00pm 0.0 0-1 MAIN LAB [id number] [address] [address] Absolute Immature Granulocyte (auto 2022 8:10pm 0.0 0-1 MAIN LAB [id number] [address] [address] Absolute Immature Granulocyte (auto April 06, 2022 11:27am 0.0 0-1 MAIN LAB [id number] [address] [address] Absolute Immature Granulocyte (auto August 28, 2022 5:10pm 0.0 0-1 MAIN LAB [id number] [address] [address] Differential Method November 10, 2021 1:00pm Automated [facility]IN [facility] [id number] [address] [address] Differential Method 2022 8:10pm Automated [facility] [id number] [address] [address] Differential Method April 06, 2022 11:27am Automated [facility]IN [facility] [id number] [address] [address] Differential Method August 28, 2022 5:10pm Automated [facility] [id number] [address] [address] Erythrocyte Sedimentation Rate August 28, 2022 5:10pm 10 mm/hr 0-15 MAIN LAB [id number] [address] [address] Serum Test, Qualitative April 06, 2022 11:27am Negative NEGATIVE [facility] [id number] [address] [address] Sodium Level November 10, 2021 1:00pm 139 mmol/L 137-145 MAIN LAB [id number] [address] [address] Sodium Level 2022 8:10pm 140 mmol/L 137-145 MAIN [facility] [id number] [address] [address] Sodium Level April 06, 2022 11:27am 142 mmol/L 137-145 MAIN LAB [id number] [address] [address] Potassium Level November 10, 2021 1:00pm 4.2 mmol/L 3.6-5.0 MAIN LAB [id number] [address] [address] Potassium Level 2022 8:10pm 3.7 mmol/L 3.6-5.0 MAIN LAB [id number] [address] [address] Potassium Level April 06, 2022 11:27am 3.7 mmol/L 3.6-5.0 MAIN LAB [id number] [address] [address] Chloride Level November 10, 2021 1:00pm 104 mmol/L 98-107 MAIN LAB [id number] [address] [address] Chloride Level 2022 8:10pm 102 mmol/L 98-107 MAIN LAB [id number] [address] [address] Chloride Level April 06, 2022 11:27am 106 mmol/L 98-107 MAIN LAB [id number] [address] [address] Carbon Dioxide Level November 10, 2021 1:00pm 24 mmol/L 22-30 MAIN LAB [id number] [address] [address] Carbon Dioxide Level 2022 8:10pm 30 mmol/L 22-30 MAIN LAB [id number] [address] [address] Carbon Dioxide Level April 06, 2022 11:27am 27 mmol/L 22-30 MAIN LAB [id number] [address] [address] Anion Gap November 10, 2021 1:00pm 11 7-16 MA[facility] LAB [id number] [address] [address] Anion Gap 2022 8:10pm 8 7-16 MAIN LAB [id number] [address] [address] Anion Gap April 06, 2022 11:27am 9 7-16 MA[facility] [id number] [address] [address] Blood Urea Nitrogen November 10, 2021 1:00pm 7 mg/dL 7-17 MAIN LAB [id number] [address] [address] Blood Urea Nitrogen 2022 8:10pm 8 mg/dL 7-17 MAIN LAB [id number] [address] [address] Blood Urea Nitrogen April 06, 2022 11:27am 10 mg/dL 7-17 MAIN LAB [id number] [address] [address] Creatinine November 10, 2021 1:00pm 0.76 mg/dL 0.52-1.04 MAIN LAB [id number] [address] [address] Creatinine 2022 8:10pm 0.66 mg/dL 0.52-1.04 MAIN LAB [id number] [address] [address] Creatinine April 06, 2022 11:27am 0.73 mg/dL 0.52-1.04 MAIN LAB [id number] [address] [address] Glomerular Filtration Rate Calc November 10, 2021 1:00pm > 60 mL/min >60.0 MAIN LAB [id number] [address] [address] Glomerular Filtration Rate Calc 2022 8:10pm > 60 mL/min >60.0 MAIN LAB [id number] [address] [address] Glomerular Filtration Rate Calc April 06, 2022 11:27am > 60 mL/min >60.0 MAIN LAB [id number] [address] [address] Glucose Level November 10, 2021 1:00pm 95 mg/dL 70-100 MAIN LAB [id number] [address] [address] Glucose Level 2022 8:10pm 97 mg/dL 70-100 MAIN LAB [id number] [address] [address] Glucose Level April 06, 2022 11:27am 90 mg/dL 70-100 MAIN LAB [id number] [address] [address] Calcium Level November 10, 2021 1:00pm 9.6 mg/dL 8.4-10.2 [facility]IN LAB [id number] [address] [address] Calcium Level 2022 8:10pm 9.2 mg/dL 8.4-10.2 MA[facility] LAB [id number] [address] [address] Calcium Level April 06, 2022 11:27am 8.9 mg/dL 8.4-10.2 [facility] LAB [id number] [address] [address] Calcium Adjusted for Albumin April 06, 2022 11:27am 8.7 mg/dL 8.4-10.2 MAIN LAB [id number] [address] [address] Total Bilirubin April 06, 2022 11:27am 0.5 mg/dL 0.2-1.3 MAIN LAB [id number] [address] [address] Aspartate Amino Transf (AST/SGOT) April 06, 2022 11:27am 46 U/L 14-36 MAIN LAB [id number] [address] [address] Alanine Aminotransfera se (ALT/SGPT) April 06, 2022 11:27am 35 U/L <35 MAIN LAB [id number] [address] [address] Total Protein April 06, 2022 11:27am 7.4 g/dL 6.3-8.2 MAIN LAB [id number] [address] [address] Albumin April 06, 2022 11:27am 4.6 g/dL 3.5-5.0 MA[facility] LAB [id number] [address] [address] Alkaline Phosphatase April 06, 2022 11:27am 52 U/L 38-126 MAIN LAB [id number] [address] [address] Lipase April 06, 2022 11:27am 37 U/L 23-300 MAIN LAB [id number] [address] [address] Sodium Level August 28, 2022 4:05pm 137 mmol/L 137-145 MAIN LAB [id number] [address] [address] Potassium Level August 28, 2022 4:05pm 3.9 mmol/L 3.6-5.0 MAIN LAB [id number] [address] [address] Chloride Level August 28, 2022 4:05pm 104 mmol/L 98-107 MAIN LAB [id number] [address] [address] Carbon Dioxide Level August 28, 2022 4:05pm 22 mmol/L 22-30 MAIN LAB [id number] [address] [address] Anion Gap August 28, 2022 4:05pm 11 7-16 MA[facility] LAB [id number] [address] [address] Blood Urea Nitrogen August 28, 2022 4:05pm 10 mg/dL 7-17 MAIN LAB [id number] [address] [address] Creatinine August 28, 2022 4:05pm 0.58 mg/dL 0.52-1.04 MAIN LAB [id number] [address] [address] Glomerular Filtration Rate Calc August 28, 2022 4:05pm > 60 mL/min >60.0 MAIN LAB [id number] [address] [address] Glucose Level August 28, 2022 4:05pm 83 mg/dL 70-100 MAIN LAB [id number] [address] [address] Calcium Level August 28, 2022 4:05pm 9.1 mg/dL 8.4-10.2 MAIN LAB [id number] [address] [address] Calcium Adjusted for Albumin August 28, 2022 4:05pm 8.9 mg/dL 8.4-10.2 MAIN LAB [id number] [address] [address] Albumin August 28, 2022 4:05pm 4.5 g/dL 3.5-5.0 MAIN LAB [id number] [address] [address] Total Protein August 28, 2022 4:05pm 7.3 g/dL 6.3-8.2 MAIN LAB [id number] [address] [address] Alkaline Phosphatase August 28, 2022 4:05pm 56 U/L 38-126 MAIN LAB [id number] [address] [address] Alanine Aminotransfera se (ALT/SGPT) August 28, 2022 4:05pm 33 U/L <35 Per Ortho Clinical Diagnostic's notification dated July 18, 2022, note that ascorbic acid concentrations of 100 mg/dL may produce a negative bias greater than 12.5%. MAIN LAB [id number] [address] [address] Aspartate Amino Transf (AST/SGOT) August 28, 2022 4:05pm 36 U/L 14-36 MAIN LAB [id number] [address] [address] Total Bilirubin August 28, 2022 4:05pm 0.4 mg/dL 0.2-1.3 MAIN LAB [id number] [address] [address] C-Reactive Protein August 28, 2022 4:05pm 6.0 mg/L 5-10 MAIN LAB [id number] [address] [address] Microbiology Results Procedure Source Result Collection Date/Time Result Date/Time Result Comment Performing Site Wet Prep Vaginal August 28, 2022 8:16pm MAIN LAB [id number] [address] [address] Vital Signs Vital Reading Result Reference Range [...] 72.57 kg August 28 1:56pm Body Temperature 98.7 [degF] 97.6-99.6 August 28, 2022 1:56pm Heart Rate 89 /min 60-100 August 28 6:28pm Respiratory rate 18 /min -August 28, 2022 6:28pm Oxygen saturation by Pulse oximetry 96 % 95-100 August 28, 2022 6:2 8pm BP Systolic 134 mm[Hg] 100-140 August 28 6:28pm BP Diastolic 78 mm[Hg] 50-85 August 28 6:28pm Advance Directives Advance Directive Response Recorded Date/ Time Does patient have an Advance Directive? No 2022 7:29pm Does patient have a COLST form? No 2022 7:29pm Insurance Providers Guarantor EDUARDO M ORA Address [address] [address] Contact Info. Home Phone: Payer Policy Id Coverage Id Subscriber's Name Subscriber Id Effective Date Expiration Date [employer]IG[employer]EL [employer] [place] [id number] EDUARDO PAYAN [id number] SELF PAY Self N/A Encounters Encounter Location(s) Arrival/Admit Date Discharge/Depart Date Provider(s) Departed Emergency [facility] September 23, 2021 3:02pm September 23, 2021 7:35pm null Departed Emergency [facility] November 10, 2021 11:22am November 10, 2021 5:45pm null Departed Emergency [facility] 2022 5:23pm 2022 9:55pm null Departed Emergency [facility] February 20, 2022 2:39pm February 20, 2022 3:42pm null Departed Emergency [facility] March 19, 2022 2:34pm March 19, 2022 4:09pm null Departed Emergency [facility] April 06, 2022 11:08am April 06, 2022 12:29pm null Departed Emergency [facility] August 28, 2022 1:47pm August 28, 2022 10:20pm null Functional Status Observation Response Date Recorded Living Situation Home August 28 11:10pm With Family August 28, 2022 11:10pm Mental Status Observation Response Date Recorded Speech Appropriate September 23, 2021 3 :50pm Comprehension Ability Understands Concepts Novem 2021 11:53am Mood/Behavior Appropriate April 06 11:53am Anxious April 06 11:53am Comprehension Ability Understands Concepts Novem 2021 3:30pm Mood/Behavior Appropriate March 19 3:30pm Plan of Treatment Future Tests Future scheduled test information is unavailable Pending Tests Test Name Ordered Date Scheduled Date Chlamydia/GC Source August 28, 2022 7:50pm Chlamydia trachomatis RNA August 28, 2022 7:50p m Neisseria gonorrhoeae RNA August 28, 2022 7:50p m Future Visits Future appointment information is unavailable Referrals to Other Providers Reason for Referral Referral Start Date Provider Provider Contact Information Provider Address [place] No Pcp Emely holloway MD Work Phone: [facility] [employer] [address] [facility] [address] [facility] Obst[facility] Gyne[facility] Work Phone: [address] [facility] [address] No Pcp [facility] Work Phone: [address] [facility] [address] [facility] [address] No Pcp No Pcp Ashlie Ramos Work Phone: [address] [place] [address] No Pcp Future Procedures Procedure Name Ordered Date Scheduled Date GENPROBE, CT/GC RNA, VARIES August 28, 2022 7:3 0pm August 28, 2022 7:50pm Future Medications Future medication information is unavailable Patient Instructions Abdominal Pain, Adult ED Chronic Pelvic Pain (DC) Abdominal Pain, Adult ED Heavy Periods (DC) Hospital Discharge Instructions Additional Instructions You were seen in the emergency department for abdominal pain, vaginal discharge and other symptoms. Your blood tests were unremarkable. We have treated you for cervicitis which is commonly caused by sexually transmitted infection with a dose of antibiotics in the emergency department. Follow-up closely with your basket braider regarding the symptoms. Return to the emergency department for worsening pain, vomiting, fever, or any new or concerning symptoms. Patient contact information: Primary phone:[phone] (Note to patient; Please let our registration staff know if this phone number is not correct so we can keep our systems accurate) *Regarding pending labs, you will only be called for positive/abnormal results. Negative/normal results can be found on the patient portal.
--- OUTSIDE RECORDS SUMMARY | 2022-11-20 17:50 | XMS_ITS | Continuity of Care Document ---
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 Name Role Phone No Local PCP, No Local PCP Primary Care Physicia n Unavailable Encounter Date(s): 03/10/22 - 03/11/22 [facility] [address], [place] [address] Encounter Diagnosis Heavy menses(Discharge Diagnosis) - 03/11/22 Congenital von Willebrand's disease(Discharge Diagnosis) - 03/11/22 Vaginal bleeding(Discharge Diagnosis) - 03/10/22 Anemia(Discharge Diagnosis) - 03/10/22 Discharge Disposition: Home or Self Care Attending Physician: TOMMY GARCIA MD Admitting Physician: TOMMY GARCIA MD Allergies, Adverse Reactions, Alerts Substance Reaction Severity Status penicillin Active droperidol Active Latex Active Haldol Active Compazine Muscle cramps Active Toradol Hives Active Assessment and Plan Extracted from: Title:Oncology Inpatient Author:JORGE HANCOCK MD Date:03/11/22 1. ??Acute anemia from??bloo d loss??from heavy menstrual periods, transfusion dependent, hemoglobin now 8.8, likely patient will need additional??packed cell transfusions if she continues to bleed,??she notes that she has access to the emergency room??over the weekend;??outpatient follow-up in the cancer center will be arranged for CBC monitoring.?? Continue to take tranexamic acid 13 mg p.o.??3 times daily??while still bleeding 2.?? Von Willebrand's disease:??Unclear history, no available records, no family history.?? Vital of red factor antigen and activity were drawn today and sent out to [facility] for??updated??assay results. ??Patient did have PT and PTT testing. ??PTT normal, PT? INR slightly elevated, likely due to??poor p.o. intake and vitamin K deficiency. 3.?? Current treatment plan is transfusion for bleeding??until further information is available 4. ??Patient has follow-up with the [facility] ? Diagnostic Tests Pending * von Willebrand Factor Activity, [facility] 03/11/22 * von Willebrand Factor Ag, [facility] 03/11/22 Functional Status 03/11/22 ADLs Independent Medications Advair HFA 115/21 inhalation aerosol with adapter 2 puff(s), Inhaled, BID Start Date: 01/21/22 Status: Ordered Albuterol (Eqv-ProAir HFA) 90 mcg/inh inhalation aerosol 2 puff(s), Inhaled, q4hr, PRN PRN as needed for wheezing Start Date: 01/21/22 Status: Ordered Extra Strength Tylenol Menstrual 2 tab(s), Oral, q6hr, PRN PRN menstrual pain, 0 Refill(s) Start Date: 03/30/21 Status: Ordered gabapentin 300 mg oral capsule 0 Refill(s) Start Date: 02/15/22 Status: Ordered hydrOXYzine hydrochloride 25 mg oral tablet 25 mg = 1 tab(s), Oral, q6hr, PRN PRN: for anxiety Start Date: 01/21/22 Status: Ordered montelukast 10 mg oral tablet 10 mg = 1 tab(s), Oral, Daily Start Date: 01/21/22 Status: Ordered norethindrone 5 mg oral tablet 5 mg = 1 tab(s), Oral, BID, # 56 tab(s), 0 Refill(s), Pharmacy: [facility], 166.74, cm, 01/20/2217:15:00 EDT, Height/Length Dosing, 78.92, kg, 01/20/22 17:15:00 EDT, Weight Dosing Start Date: 01/21/22 Stop Date: 02/18/22 Status: Ordered omeprazole 20 mg oral delayed release capsule 20 mg = 1 cap(s), Oral, Daily Start Date: 01/21/22 Status: Ordered oxyCODONE 5 mg oral tablet 5 mg = 1 tab(s), Oral, q6hr, PRN PRN: for pain, # 7 tab(s), 0 Refill(s), Pharmacy: [facility] Pharmacy, 167, cm, 03/10/22 19:15:00 EDT, Height/Length Dosing, 77.4, kg, 03/11/22 0:18:00 EDT, Weight Dosing Start Date: 03/11/22 Stop Date: 05/14/22 Status: Ordered sertraline 100 mg oral tablet 100 mg = 1 tab(s), Oral, Daily Start Date: 01/21/22 Status: Ordered tiZANidine 4 mg oral tablet 4 mg = 1 tab(s), Oral, q6hr, PRN PRN: muscle spasms Start Date: 01/21/22 Status: Ordered traZODone 100 mg oral tablet 100 mg = 1 tab(s), Oral, qHS Start Date: 01/21/22 Status: Ordered Zofran ODT 4 mg oral tablet, disintegrating 4 mg = 1 tab(s), Oral, q8hr, PRN PRN: as needed for nausea/vomiting, # 10 tab(s), 0 Refill(s), Pharmacy: [facility] Pharmacy, 167, cm, 03/10/22 19:15:00 EDT, Height/Length Dosing, 77.4, kg, 03/11/22 0:18:00 EDT, Weight Dosing Start Date: 03/11/22 Stop Date: 05/14/22 Status: Ordered Mental Status 03/11/22 Level of Consciousness Alert Orientation Assessment Oriented x 4 Problem List Condition Effective Dates Status Health Status Inform ant Anxiety(Confirmed) Active Asthma(Confirmed) Active Depression(Confirmed) Active Endometriosis(Confirmed) Active Methicillin resistant Staphy lococcus aureus(Confirmed) 1, 2 04/03/21 Active 1Urine Culture from Urine, NOS collected on 03/30/21 22:54:00 EST tested positive for MRSA. Problem updated by Discern Expert on April 03, 2021 09:06:45 EST 2Problem added by Rule (LH_IC_MDRO_MRSA) following Urine Culture from Urine, NOS collected on 30-MAR-2021 22:54:00 EST tested positive for MRSA. Results Laboratory List Name Date Ferritin 03/11/22 Hemoglobin and Hematocrit (Hgb & Hct) Iron Level 03/11/22 Red Blood Cells (Blood Bank RBC) 2 Hemoglobin and Hematocrit (Hgb & Hct) Red Blood Cells (Blood Bank RBC) 2 Hemoglobin and Hematocrit 03/11/22 PT/INR 03/11/22 PTT 03/11/22 CBC 03/10/22 ABO/Rh 03/10/22 ABO/Rh Recheck 03/10/22 Antibody Screen Gel 03/10/22 Crossmatch IS 03/10/22 .Estimated Glomerular Filtration Rate Auto Differential 03/10/22 CBC Auto Diff reflex Manual Diff 2 Comprehensive Metabolic Panel 03/10/22 HCG Quantitative 03/10/22 PT/INR 03/10/22 PTT 03/10/22 Most recent to oldest [Reference Range]: 1 2 3 ABSCR-G Interpretation Negative ABSC (03/10/22 8:20 PM) Has this individual had a transplant? No (03/11/22 12:58 PM) No (03/11/22 6:06 AM) Product Ready Ready 1 (03/11/22 12:58 PM) Ready 2 (03/11/22 6:06 AM) BBID [id number] *Unknown* (03/10/22 8:20 PM) ABO/Rh Interpretation A POS *Unknown* (03/10/22 8:20 PM) ABORh ReCheck Interpretation A POS *Unknown* (03/10/22 8:20 PM) AGAP 10 *NA* (03/10/22 7:54 PM) INR 1.2 *NA* (03/11/22 5:14 AM) 1.1 *NA* (03/10/22 7:54 PM) A/G Ratio 1.3 *NA* (03/10/22 7:54 PM) BUN/Creat Ratio 10 *NA* (03/10/22 7:54 PM) PT [9.4-12.5 second(s)] 14.0 second(s) *HI* (03/11/22 5:14 AM) 12.6 second(s) *HI* (03/10/22 7:54 PM) PTT [25.1-37.0 second(s)] 31.4 second(s) (03/11/22 5:14 AM) 34.3 second(s) (03/10/22 7:54 PM) RBC [4.00-5.20 x10(6)/mcL] 3.16 x10(6)/m cL *LOW* (03/10/22 11:02 PM) 3.86 x10(6)/mcL *LOW* (03/10/22 7:54 PM) RDW [11.5-14.5 %] 18.1 % *HI* (03/10/22 11:02 PM) 18.2 % *HI* (03/10/22 7:54 PM) Sodium Level [136-145 mmol/L] 138 mmol/L (03/10/22 7:54 PM) Total Protein [6.4-8.2 gm/dL] 7.5 gm/dL (03/10/22 7:54 PM) AST [15-37 IU/L] 33 IU/L (03/10/22 7:54 PM) Bili Total [0.20-1.00 mg/dL] 0.33 mg/dL (03/10/22 7:54 PM) CO2 [21-32 mmol/L] 23 mmol/L (03/10/22 7:54 PM) Ferritin Level [8.0-252.0 ng/mL] 3.7 ng/mL *LOW* (03/11/22 4:53 PM) Albumin Level [3.4-5.0 gm/dL] 4.2 gm/dL (03/10/22 7:54 PM) Alk Phos [48-129 unit/L] 52 unit/L (03/10/22 7:54 PM) ALT [13-61 IU/L] 26 IU/L (03/10/22 7:54 PM) Hct [36.0-46.0 %] 28.6 % *LOW* (03/11/22 4:53 PM) 26.9 % *LOW* (03/11/22 12:06 PM) 21.7 % *LOW* (03/11/22 5:14 AM) Hgb [12.0-15.0 gm/dL] 8.8 gm/dL *LOW* (03/11/22 4:53 PM) 7.9 gm/dL *LOW* (03/11/22 12:06 PM) 6.5 gm/dL 3 *CRIT* (03/11/22 5:14 AM) Iron [50-170 mcg/dL] 91 mcg/dL (03/11/22 4:53 PM) MCH [26.0-34.0 pg] 22.8 pg *LOW* (03/10/22 11:02 PM) 23.1 pg *LOW* (03/10/22 7:54 PM) MCHC [31.0-37.0 gm/dL] 29.8 gm/dL *LOW* (03/10/22 11:02 PM) 30.3 gm/dL *LOW* (03/10/22 7:54 PM) MCV [80-100 fL] 77 fL *LOW* (03/10/22 11:02 PM) 76 fL *LOW* (03/10/22 7:54 PM) MPV [9.2-12.7 fL] NA fL *NA* (03/10/22 11:02 PM) NA fL *NA* (03/10/22 7:54 PM) Glucose Level [74-106 mg/dL] 88 mg/dL (03/10/22 7:54 PM) Platelet [150-350 x10(3)/mcL] 161 x10(3) /mcL (03/10/22 11:02 PM) 211 x10(3)/mcL (03/10/22 7:54 PM) Potassium Level [3.5-5.1 mmol/L] 3.8 mmol/L (03/10/22 7:54 PM) WBC [4.5-11.0 x10(3)/mcL] 6.4 x10(3)/mcL (03/10/22 11:02 PM) 6.3 x10(3)/mcL (03/10/22 7:54 PM) BUN [7-18 mg/dL] 10 mg/dL (03/10/22 7:54 PM) Calcium Level [8.5-10.1 mg/dL] 8.9 mg/dL (03/10/22 7:54 PM) Chloride [98-107 mmol/L] 109 mmol/L *HI* (03/10/22 7:54 PM) hCG Qnt [1-3 mIU/mL] <1 mIU/mL (03/10/22 7:54 PM) eGFR AA >60 mL/min/1.73 m2 *NA* (03/10/22 7:54 PM) eGFR BRUNO >60 mL/min/1.73 m2 *NA* (03/10/22 7:54 PM) Neutrophil Absolute [1.50-7.80 x10(3)/mcL] 3.90 x10(3)/mcL (03/10/22 7:54 PM) Lymphocyte Absolute [1.10-4.80 x10(3)/mcL] 1.87 x10(3)/mcL (03/10/22 7:54 PM) Monocyte Absolute 0.40 x10(3)/mcL *NA* (03/10/22 7:54 PM) Eosinophil Absolute 0.06 x10(3)/mcL *NA* (03/10/22 7:54 PM) Basophil Absolute 0.06 x10(3)/mcL *NA* (03/10/22 7:54 PM) Imm Gran Absolute 0.02 /mcL *NA* (03/10/22 7:54 PM) NRBC % [0.0-0.2 %] 0.0 % (03/10/22 11:02 PM) 0.0 % (03/10/22 7:54 PM) Osmol Calculated 274 mOsm/kg *NA* (03/10/22 7:54 PM) Eosinophil Auto [1.0-4.0 %] 1.0 % (03/10/22 7:54 PM) Immature Granulocyte Auto 0 % *NA* (03/10/22 7:54 PM) Lymphocyte Auto [24.0-44.0 %] 29.6 % (03/10/22 7:54 PM) Monocyte Auto [2.0-11.0 %] 6.3 % (03/10/22 7:54 PM) Neutrophil Auto [31.0-76.0 %] 61.8 % (03/10/22 7:54 PM) Basophil Auto [0.0-2.0 %] 1.0 % (03/10/22 7:54 PM) Creatinine [0.6-1.3 mg/dL] 1.0 mg/dL (03/10/22 7:54 PM) 1Result Comment: 03/11/2022 1:30 PM SSHURLOW The blood products requested for this patient are ready. Product availability called to [email or web address]. 2Result Comment: 03/11/2022 7:49 AM SSHURLOW The blood products requested for this patient are ready. Product availability called to [email or web address] on pcu. 3Result Comment: This result has been called to MARÍA ELENA DONNELLY by Jose David Carrington on 03 11 2022 at 0612,and has been read back. Vital Signs Most recent to oldest [Reference Range]: 1 2 3 Temperature Oral [35.8-37.3 DegC] 37.1 DegC (03/10/22 9:47 PM) 37.5 DegC *HI* (03/10/22 7:15 PM) Temperature Temporal Artery [36.3-37.8 DegC] 37.1 DegC (03/11/22 5:03 PM) 37 DegC (03/11/22 3:30 PM) 36.8 DegC (03/11/22 2:45 PM) Peripheral Pulse Rate [60-100 bpm] 88 bpm (03/11/22 5:03 PM) 91 bpm (03/11/22 3:30 PM) 88 bpm (03/11/22 3:15 PM) Heart Rate Monitored [60-100 bpm] 94 bpm (03/11/22 3:30 PM) 88 bpm (03/11/22 3:15 PM) 80 bpm (03/11/22 3:00 PM) Respiratory Rate [14-20 br/min] 18 br/min (03/11/22 5:03 PM) 16 br/min (03/11/22 3:30 PM) 18 br/min (03/11/22 2:15 PM) Blood Pressure [90-140/60-90 mmHg] 113/52mmHg (03/11/22 5:03 PM) 103/58mmHg (03/11/22 3:30 PM) 97/60mmHg (03/11/22 3:15 PM) Mean Arterial Pressure, Cuff 69 mmHg (03/11/22 3:30 PM) 73 mmHg (03/11/22 3:15 PM) 67 mmHg (03/11/22 3:00 PM) Blood Pressure 128/82mmHg (03/10/22 7:15 PM) Social History Social History Type Response Tobacco Tobacco Use: Denies. Sex Female Hospital Discharge Instructions Patient Education 03/11/2022 17:23:31 Anemia Anemia Anemia is a condition in which there is not enough red blood cells or hemoglobin in the blood. Hemoglobin is a substance in red blood cells that carries oxygen. When you do not have enough red blood cells or hemoglobin (are anemic), your body cannot get enoughoxygen and your organs may not work properly. As a result, you may feel very tired or have other problems. What are the causes? Common causes of anemia include: ??? Excessive bleeding. Anemia can be caused by excessive bleeding inside or outside the body, including bleeding from the intestines or from heavy menstrual periods in females. ??? Poor nutrition. ??? Long-lasting (chronic) kidney, thyroid, and liver disease. ??? Bone marrow disorders, spleen problems, and blood disorders. ??? Cancer and treatments for cancer. ??? HIV (human immunodeficiency virus) and AIDS (acquired immunodeficiency syndrome). ??? Infections, medicines, and autoimmune disorders that destroy red blood cells. What are the signs or symptoms? Symptoms of this condition include: ??? Minor weakness. ??? Dizziness. ??? Headache, or difficulties concentrating and sleeping. ??? Heartbeats that feel irregular or faster than normal (palpitations). ??? Shortness of breath, especially with exercise. ??? Pale skin, lips, and nails, or cold hands and feet. ??? Indigestion and nausea. Symptoms may occur suddenly or develop slowly. If your anemia is mild, you may not have symptoms. How is this diagnosed? This condition is diagnosed based on blood tests, your medical history, and a physical exam. In some cases, a test may be needed in which cells are removed from the soft tissue inside of a bone and looked at under a microscope (bone marrow biopsy). Your health care provider may also check your stool (feces) for blood and may do additional testing to look for the cause of your bleeding. Other tests may include: ??? Imaging tests, such as a CT scan or MRI. ??? A procedure to see inside your esophagus and stomach (endoscopy). ??? A procedure to see inside your colon and rectum (colonoscopy). How is this treated? Treatment for this condition depends on the cause. If you continue to lose a lot of blood, you may need to be treated at a hospital. Treatment may include: ??? Taking supplements of iron, vitamin B12, or folic acid. ??? Taking a hormone medicine (erythropoietin) that can help to stimulate red blood cell growth. ??? Having a blood transfusion. This may be needed if you lose a lot of blood. ??? Making changes to your diet. ??? Having surgery to remove your spleen. Follow these instructions at home: ??? Take zvqt-nld-arrbwfa and prescription medicines only as told by your health care provider. ??? Take supplements only as told by your health care provider. ??? Follow any diet instructions that you were given by your health care provider. ??? Keep all follow-up visits as told by your health care provider. This is important. Contact a health care provider if: ??? You develop new bleeding anywhere in the body. Get help right away if: ??? You are very weak. ??? You are short of breath. ??? You have pain in your abdomen or chest. ??? You are dizzy or feel faint. ??? You have trouble concentrating. ??? You have bloody stools, black stools, or tarry stools. ??? You vomit repeatedly or you vomit up blood. These symptoms may represent a serious problem that is an emergency. Do not wait to see if the symptoms will go away. Get medical help right away. Call your local emergency services (911 in the [place] Do not drive yourself to the hospital. Summary ??? Anemia is a condition in which you do not have enough red blood cells or enough of a substance in your red blood cells that carries oxygen (hemoglobin). ??? Symptoms may occur suddenly or develop slowly. ??? If your anemia is mild, you may not have symptoms. ??? This condition is diagnosed with blood tests, a medical history, and a physical exam. Other tests may be needed. ??? Treatment for this condition depends on the cause of the anemia. This information is not intended to replace advice given to you by your health care provider. Make sure you discuss any questions you have with your health care provider. Document Revised: 04/07/2020 Document Reviewed: 04/07/2020 [employer] Patient Education ?? 2021 [employer] 03/11/2022 17:23:31 Von Willebrand Disease Von Willebrand Disease Von Willebrand disease is a bleeding disorder that happens when the body does not make enough of a protein that helps the blood clot. This protein is called von Willebrand factor (VWF). The disease also occurs when VWF does not work the way that it should. There is another protein in the blood called factor Vlll that helps blood to clot. When VWF levels are low or when VWF is not working properly, factor Vlll levels are also low. This makes the body less able to form stable blood clots, which puts you at risk for bleeding too much. There are 4 major types of von Willebrand disease. Types 1???3 are inherited. ??? Type 1 is the mildest and most common type. People with this type have a low level of VWF and have decreased factor Vlll activity. ??? Type 2 happens when VWF does not work as it should. ??? Type 3 is a severe and rare type. People with this type usually have no VWF. ??? Acquired von Willebrand disease happens when von Willebrand disease occurs as a result of another condition. What are the causes? This condition may be caused by: ??? A gene that is passed from a parent to a child (inherited). ??? Certain medical conditions that can cause the destruction of VWF, such as autoimmune disease, cancer, metabolic disorders, or metallic heart valves. This is considered acquired von Willebrand Disease. What increases the risk? You are more likely to develop this condition if: ??? You have a parent with this condition. ??? You have medical conditions, such as certain types of autoimmune disease or cancer. What are the signs or symptoms? Symptoms of this condition include: ??? Easy bruising. ??? Nosebleeds that take longer than usual to stop. ??? Bleeding from the gums after a dental procedure. ??? Heavy menstrual bleeding. ??? Blood in your urine or stool (feces). ??? Excessive or prolonged bleeding from a cut, after an accident or surgery, or after childbirth. ??? Bleeding into muscles or joints. ??? Bleeding into your muscle makes the muscle feel painful, full, and firm. ??? Bleeding into your joint makes the joint feel painful and swollen. In some cases, there are no symptoms. How is this diagnosed? This condition is diagnosed based on your symptoms and whether members of your family have a history of bleeding that lasts longer than normal. You may also have tests, including: ??? Blood tests that check for: ??? The ability of your blood to clot. ??? The levels of VWF and factor Vlll in your blood. ??? How well the VWF works. ??? Genetic tests to confirm the diagnosis. How is this treated? Treatment for this condition depends on the type of von Willebrand disease you have and how severe it is. Often, treatment is not needed. If treatment is needed, it may include: ??? Medicines to increase your production of VWF. These may be given through an injection, an IV inserted in a vein, or a nasal spray. ??? Medicines to help your blood to clot (clotting factor concentrates). These may be given after an injury, surgery, or another event that causes bleeding. ??? Medicine applied directly to cuts (fibrin glue) to help the blood-clotting process. ??? Medicines to prevent blood clots from breaking down too soon. ??? control medicines to prevent heavy menstrual bleeding in women. Follow these instructions at home: Medicines ??? Take yjqr-txm-marxbxj and prescription medicines only as told by your health care provider. ??? Always check with your health care provider before you take any medicine. You will need to avoid pasx-kgn-tjyogif medicines that can affect the clotting process. These include: ??? Aspirin and other drugs that contain salicylates. ??? NSAIDs, such as ibuprofen. Activity ??? Exercise regularly. Exercise helps keep muscles flexible and helps prevent damage to muscles and joints. ??? Activities that are usually safe for people with this condition include biking and walking. ??? Activities that are not safe include contact sports, such as football, soccer, hockey, and wrestling. ??? Always check with your health care provider before you start any exercise program. ??? Maintain a healthy weight. General instructions ??? Tell your dentists and all other health care providers that you have von Willebrand disease. There are things that your health care providers can do to prevent or reduce bleeding during and afterprocedures. For example, medicine can be given during dental procedures to reduce bleeding. ??? Wear a medical ID bracelet to alert health care providers that you have von Willebrand disease. ??? If you cut yourself, have a nosebleed, or are bleeding for any other reason, apply consistent pressure to the area until the bleeding has stopped completely. This may take several minutes. ??? Keep all follow-up visits as told by your health care provider. This is important. Get help right away if: ??? You have bleeding that does not stop when you follow your treatment plan. Summary ??? Von Willebrand disease is a bleeding disorder that happens when the body does not make enough of a protein that helps the blood clot. This protein is called von Willebrand factor (VWF). ??? Treatment for this condition depends on the type of von Willebrand disease you have and how severe it is. Often, treatment is not needed. ??? If treatment is needed, it may involve medicines to help with clotting or to prevent bleeding. ??? Wear a medical ID bracelet to alert health care providers that you have von Willebrand disease. ??? If you cut yourself, have a nosebleed, or are bleeding for any other reason, apply consistent pressure to the area until the bleeding has stopped completely. This may take several minutes. This information is not intended to replace advice given to you by your health care provider. Make sure you discuss any questions you have with your health care provider. Document Revised: 03/23/2020 Document Reviewed: 03/23/2020 [employer] Patient Education ?? 2021 [email or web address]. Oncology Progress note * JORGE HANCOCK MD: PERFORM Event Display: Oncology Progress Note Authored Date: [id number] Oncology Progress Note History of Present Illness Patient seen and examined, chart and history reviewed 22-year-old??traveling [employer]??working at [facility] and rehab for the next several weeks, presented to the emergency room with??vaginal bleeding of 4- day history, heavy,??passing large clots.?? Gives a history of von Willebrand's disease that has not been treated previously. ??Does have tranexamic acid which has been used in the past but the patient states does not work??quickly enough.?has seen the patient??in consultation and will??make arrangements for outpatient follow-up.?? Patient gives a history of endometriosis??with??evaluation at [facility] in [place] with surgery there.?? Records not currently available Regarding the patient's??von Willebrand's disease, patient states that she is the only family member with the diagnosis,??has never been formally treated for it before,??and has a??end of April??hematology appointment/consultation in [place].?? Currently the patient has received 1 unit of packed cells for hemoglobin??on admission of 6.5, after 2 units of packed??cells the hemoglobin is 8.8.?? White count 6.4 and platelets 161,000.?? Patient shows me a??photo of her abdomen from last week??with a large??ecchymotic??area over the anterior right??lower abdomen. Review of Systems 14 point review of systems negative except as in the HPI. Physical Exam Vitals & Measurements T:??37.1?C??(Temporal Artery)?? TMIN:??36.6?C??(Temporal Artery)?? TMAX:??37.5?C??(Oral)??HR:??88??(Peripheral)?? RR:??18?? BP:??113/52?? SpO2:??100%?? HT:??162??cm?? WT:??77.4??kg?? WT:??77.4??kg??(Dosing)?? Vital signs reviewed Alert and oriented x 3 Skin: no rash, erythema, suspicious lesions Head/scalp/face: no lesions Eyes: no scleral icterus, EOMI Oral: clear without mucositis, lesions,?? erythema, or thrush, appears moist Neck: no masses, swelling, tenderness Nodes: not enlarged in cervical, supraclavicular, axillary, inguinal regions Chest: clear to auscultation and percussion, breath sounds not diminished CV: regular rhythm and rate, no murmur or extra sounds Abdomen: soft, non tender, no masses, no hepatomegaly, no splenomegaly Extremities: no clubbing cyanosis, no??edema Back: no flank or CVA tenderness on either side Neuro: non focal, no sensory or motor deficits, cranial nerves II-XII intact, no cerebellar deficits Psych: appropriate mood, interaction, attention, cognition Primary Lab Results Routine Chemistry Sodium Level: 138 mmol/L (03/10/22) Potassium Level: 3.8 mmol/L (03/10/22) Chloride:??109 mmol/L??High (03/10/22) CO2: 23 mmol/L (03/10/22) BUN: 10 mg/dL (03/10/22) Creatinine: 1 mg/dL (03/10/22) Glucose Level: 88 mg/dL (03/10/22) Calcium Level: 8.9 mg/dL (03/10/22) Total Protein: 7.5 gm/dL (03/10/22) Albumin Level: 4.2 gm/dL (03/10/22) Bili Total: 0.33 mg/dL (03/10/22) ALT: 26 IU/L (03/10/22) Alk Phos: 52 unit/L (03/10/22) Magnesium: 2 mg/dL (09/01/19) Phosphorus: 2.7 mg/dL (09/01/19) AST: 33 IU/L (03/10/22) Lipase Lvl: 92 IU/L (10/04/21) eGFR BRUNO: >60 (03/10/22) Other Chemistry Ferritin Level:??3.7 ng/mL??Low (03/11/22) hCG Qnt: <1 (03/10/22) Iron: 91 mcg/dL (03/11/22) TSH: 1.35 mcIU/mL (09/01/19) HIV Antibody (05/16): Non Reactive (03/13/19) Syphilis: Non Reactive (03/13/19) Hematology WBC: 6.4 x10(3)/mcL (03/10/22) RBC:??3.16 x10(6)/mcL??Low (03/10/22) Hgb:??8.8 gm/dL??Low (03/11/22) Hct:??28.6 %??Low (03/11/22) Platelet: 161 x10(3)/mcL (03/10/22) Neutrophil Auto: 61.8 % (03/10/22) Lymphocyte Auto: 29.6 % (03/10/22) Monocyte Auto: 6.3 % (03/10/22) Eosinophil Auto: 1 % (03/10/22) Basophil Auto: 1 % (03/10/22) MCV:??77 fL??Low (03/10/22) Other Hematology Sed Rate: 11 mm/hr (09/19/19) Urinalysis UA Color: Yellow Iris (01/21/22) UA Appear: Clear Irisa (01/21/22) UA Spec Grav: 1.02 (01/21/22) UA Leuk Est: Neg Iris (01/21/22) UA Nitrite: Neg Iris (01/21/22) UA pH: 7.5 (01/21/22) UA Protein: Neg Iris (01/21/22) UA Ketones: Neg Iris (01/21/22) UA Glucose: Neg Iris (01/21/22) UA Urobilinogen: 1.0 (01/21/22) UA Bili: Neg Iris (01/21/22) UA Blood: 3+ Urisys Abnormal (01/21/22) Microscopic Indicated: Yes (01/21/22) Diagnostic Results I personally reviewed the most recent Laboratory, Pathology, and Imaging results. Assessment/Plan 1. ??Acute anemia from??blood loss??from heavy menstrual periods, transfusion dependent, hemoglobinnow 8.8, likely patient will need additional??packed cell transfusions if she continues to bleed,??she notes that she has access to the emergency room??over the weekend;??outpatient follow-up in the cancer center will be arranged for CBC monitoring.?? Continue to take tranexamic acid 13 mg p.o.??3 times daily??while still bleeding 2.?? Von Willebrand's disease:??Unclear history, no available records, no family history.?? Vital of red factor antigen and activity were drawn today and sent out to [facility] for??updated??assay results.??Patient did have PT and PTT testing. ??PTT normal, PT???INR slightly elevated, likely due to??poor p.o. intake and vitamin K deficiency. 3.?? Current treatment plan is transfusion for bleeding??until further information is available 4. ??Patient has follow-up with the [facility] Time Spent With Patient 30-39 minutes spent in reviewing the record, seeing the patient and documenting in the medical record (includes preparing to see the patient, review of tests, obtaining and/or reviewing separately obtaining history, performing a medically appropriate examination and or evaluation, counseling and educating the patient/family/caregiver, ordering medication, tests, and procedures, referring and communicating with other healthcare professionals, documenting clinical information in the electronic and written health record, independently interpreting results and communicating results to the patient/family/caregiver, and care coordination) Voice recognition software was used to create this note. ??I apologize for any unedited errors. Problem List/Past Medical History Ongoing Anxiety Asthma Depression Endometriosis Methicillin resistant Staphylococcus aureus Historical No qualifying data Medications Inpatient albuterol inhaler, 2 puff(s), Inhaled, q2hr, PRN gabapentin, 300 mg= 1 cap(s), Oral, Daily hydrOXYzine, 25 mg= 1 tab(s), Oral, q6hr, PRN montelukast, 10 mg= 1 tab(s), Oral, Daily morphine, 4 mg= 1 mL, IV Push, q2hr, PRN norethindrone acetate 5 mg tab(s), 1 ea, Oral, BID NS 500 mL, 500 mL, IV NS 500 mL, 500 mL, IV oxyCODONE, 5 mg= 1 tab(s), Oral, q4hr, PRN Protonix IV, 40 mg= 10 mL, IV Push, BID sertraline, 100 mg= 2 tab(s), Oral, Daily tiZANidine, 4 mg= 1 tab(s), Oral, q6hr, PRN tranexamic acid, 1300 mg= 2 tab(s), Oral, TID traZODone, 100 mg= 1 tab(s), Oral, qHS Tylenol, 650 mg= 2 tab(s), Oral, q4hr, PRN Ventolin HFA, 2 puff(s), Inhaled, q4hr, PRN Zofran, 4 mg= 2 mL, IV Push, q6hr, PRN Home Advair HFA 115/21 inhalation aerosol with adapter, 2 puff(s), Inhaled, BID Albuterol (Eqv-ProAir HFA) 90 mcg/inh inhalation aerosol, 2 puff(s), Inhaled, q4hr, PRN Extra Strength Tylenol Menstrual, 2 tab(s), Oral, q6hr, PRN gabapentin 300 mg oral capsule hydrOXYzine hydrochloride 25 mg oral tablet, 25 mg= 1 tab(s), Oral, q6hr, PRN montelukast 10 mg oral tablet, 10 mg= 1 tab(s), Oral, Daily norethindrone 5 mg oral tablet, 5 mg= 1 tab(s), Oral, BID omeprazole 20 mg oral delayed release capsule, 20 mg= 1 cap(s), Oral, Daily oxyCODONE 5 mg oral tablet, 5 mg= 1 tab(s), Oral, q6hr, PRN sertraline 100 mg oral tablet, 100 mg= 1 tab(s), Oral, Daily tiZANidine 4 mg oral tablet, 4 mg= 1 tab(s), Oral, q6hr, PRN traZODone 100 mg oral tablet, 100 mg= 1 tab(s), Oral, qHS Zofran ODT 4 mg oral tablet, disintegrating, 4 mg= 1 tab(s), Oral, q8hr, PRN Allergies Compazine??(Muscle cramps) Haldol Latex Toradol??(Hives) droperidol penicillin Social History Alcohol - Denies Alcohol Use Home/Environment Feels unsafe at home: No. Substance Abuse Current, Marijuana, 1-2 times per month Tobacco - Denies Tobacco Use Tobacco Use: Denies. Electronically Signed By: JORGE HANCOCK MD Date and Time Signed: 03/11/22 18:04 EDT Discharge summary * LAVINIA BLACK MD: PERFORM, MODIFY Event Display: Discharge Summary Authored Date: Discharge Summary Reason for Hospitalization AUB anemia history of endometriosis history of type II or III VW dz Discharge Diagnoses as above s/p 2u prbcs Discharge Medication List Home Medications (13) Active Advair HFA 115/21 inhalation aerosol with adapter??2 puff(s), Inhaled, BID Albuterol (Eqv-ProAir HFA) 90 mcg/inh inhalation aerosol??2 puff(s), PRN, Inhaled, q4hr Extra Strength Tylenol Menstrual??2 tab(s), PRN, Oral, q6hr gabapentin 300 mg oral capsule?? hydrOXYzine hydrochloride 25 mg oral tablet??25 mg = 1 tab(s), PRN, Oral, q6hr montelukast 10 mg oral tablet??10 mg = 1 tab(s), Oral, Daily norethindrone 5 mg oral tablet??5 mg = 1 tab(s), Oral, BID omeprazole 20 mg oral delayed release capsule??20 mg = 1 cap(s), Oral, Daily oxyCODONE 5 mg oral tablet??5 mg = 1 tab(s), PRN, Oral, q6hr sertraline 100 mg oral tablet??100 mg = 1 tab(s), Oral, Daily tiZANidine 4 mg oral tablet??4 mg = 1 tab(s), PRN, Oral, q6hr traZODone 100 mg oral tablet??100 mg = 1 tab(s), Oral, qHS Zofran ODT 4 mg oral tablet, disintegrating??4 mg = 1 tab(s), PRN, Oral, q8hr Condition at Discharge stable Prognosis good Follow Up with primary pipe coverer and insulator Dr. Ramos and with [facility].?? [facility] will call with follow up appt. Discharge Disposition home Hospital Course 22-year-old female with the above-noted diagnoses who was admitted for observation.?? Patient was treated with tranexamic acid and norethindrone.?? She did not have any further bleeding after 5 AM onday of admission.?? She did receive hospitalist and hematology consultation.?? Their recommendations are appreciated.?? Patient received 2 units packed red blood cells.?? Vital signs remained stable.?? Hematocrit responded appropriately.?? Patient was offered ongoing admission for observation should recurrent bleeding develop and declined.?? She strongly desired discharge to home today.?? 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 Additionally, she has follow-up scheduled with her clinical services assistant in [place] as well as her supervisor lathing at [facility].?? Return precautions are reviewed.?? Patient is discharged home in stable condition. Time Spent with Patient I spent??30 minutes caring for the patient,??including??ecve-ca-gacp discussion with the patient reviewing the findings above and discussing??ongoing management for the same.?? The patient was ready to learn, no apparent learning barriers were identified; learning preferences included listening. Explained diagnosis and treatment plan; patient expressed understanding of the content.?? She was given the opportunity to ask questions and all of her questions were answered to her satisfaction.?? Electronically Signed By: LAVINIA BLACK MD Date and Time Signed: 03/11/22 19:23 EDT Physician Progress Note * DIANDRA NUGENT MD: MODIFY Event Display: Physician Progress Note Authored Date: [id number] DATE OF NOTE 03/11/2022. SUBJECTIVE Michelle is having uterine cramping. She says it generally accompanies these heavy bleeding episodes and persists for 24 to 48 hours after the bleeding has stopped. Now, at 9 o'clock, she states that her last bleeding was approximately 5:00 a.m., i.e., 4 hours ago. She is uncertain whether that is going to be the end of it. She states that this episode has not been like other episodes and the bleeding has been heavier. She was rescheduled for the Hematology appointment at [facility], as the provider had become ill and she is now scheduled for the end of April, almost 2 months from now. 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 DATA Laboratories: Hemoglobin this morning at 5:14 a.m. was 6.5, in consequence of which another unit was ordered and it is about to start. OBJECTIVE VITAL SIGNS: Temperature 37.2, heart rate 91, respiratory rate 16, blood pressure 97/55, O2 saturation 100% on room air at rest. GENERAL APPEARANCE: Michelle is a young adult woman, who looks uncomfortable. She is grimacing a bit. LUNGS: Easy quiet respiration. Clear with good breath sounds. HEART: Regular. ABDOMEN: Slightly distended and a bit tender, covered by a heating pad. EXTREMITIES: Symmetric. Well-formed. No edema. SKIN: Warm and dry. PSYCHIATRIC: Alert, oriented, and well-spoken. MOUTH: Dentition is poor. ASSESSMENT AND PLAN 1. Heavy uterine bleeding due to von Willebrand deficiency: A unit of blood has been ordered. Hemoglobin will be checked after that. I think she deserves Hematology consultation even though she is not going to stay in this area, particularly in view of the fact that alternate outpatient evaluation is being delayed and the fact that this episode seems to have been more severe than previous ones. 2. Michelle would like to be discharged by the end of the day today if it is possible because she is supposed to work the next 3 days: My criteria would include cessation of bleeding for the rest of the day, stabilization of her hemoglobin, and the opportunity to speak with Hematology. SARAH/CP /[id number] cc: Electronically Signed By: DIANDRA NUGENT MD Date and Time Signed: 03/11/22 14:47 EDT Consult note * RAMAN MONCADA MD: PERFORM Event Display: Consultation Authored Date: [id number] Consultation Note History of Present Illness This is a pleasant 22-year-old lady with a history of von Willebrand disease, presumptively type IIor III??who has had issues with this presenting this past October. ??She has had several episodes of bleeding requiring transfusions. ??She has been managed on by hematology over at [facility].?? At 1 point there was a plan for colonoscopy/endoscopy with a referral to [facility].?? However she has not had this performed just yet. ??About 4 days ago she started experiencing significant vaginal??bleeding. ??She has soaked several pads as well as having significant amount of bleeding while being in the hospital. ??Since her admission today she has had at least 5 significant episodes. ??She is also been tachycardic. ??She denies any chest pain or palpitations. ??Of note a couple of days ago she did have some emesis??or bleeding but it was small amounts.?? She has had bleeding of the oropharynx and gums previously. ??She is also had some rectal bleeding and has had a history of hemorrhoids as well.?? She has been having significant crampy abdominal pain that is been mostly suprapubic and pelvic. ??She also describes a history of endometriosis.?? She has had 1 miscarriage previously but does not have any living children presently. ??She avoids aspirin and ibuprofen due to both allergies and has been told to avoid these. Review of Systems All other systems were reviewed and found to be negative other than stated in the HPI above. Physical Exam Vitals & Measurements T:??37.1?C??(Oral)?? TMIN:??37.1?C??(Oral)?? TMAX:??37.5?C??(Oral)?? HR:??120??(Peripheral)?? RR:??18?? BP:??110/57?? SpO2:??99%?? WT:??74.8??kg??(Dosing)?? GENERAL: Alert and Oriented x3, appears somewhat uncomfortable HEENT: normocephalic, atraumatic, normal mucous membranes, neck is supple, no cervical lymphadenopathy, no thyromegaly CARDIAC: Tachycardic but regular PULMONARY: Clear to auscultation bilaterally, no rhales, rhonchi, wheezing ABDOMEN: Soft, Nontender, Nondistended, normoactive bowel sounds, no hepatomegaly or splenomegaly EXTREMITIES: No cyanosis, clubbing or edema SKIN: Normal Turgor, Warm CIRCULATORY: No JVD, No Carotid Bruits, 2+ peripheral pulses, Normal capillary refill NEURO: Moves all 4 extremities, sensation and strength grossly intact and symmetric?? Lab Results Chemistry BUN: 10 mg/dL (03/10/22 19:54:00) Calcium Level: 8.9 mg/dL (03/10/22 19:54:00) Chloride:??109 mmol/L??High (03/10/22 19:54:00) Creatinine: 1 mg/dL (03/10/22 19:54:00) Glucose Level: 88 mg/dL (03/10/22 19:54:00) hCG Qnt: <1 (03/10/22 19:54:00) Potassium Level: 3.8 mmol/L (03/10/22 19:54:00) Sodium Level: 138 mmol/L (03/10/22 19:54:00) LFT Albumin Level: 4.2 gm/dL (03/10/22 19:54:00) Alk Phos: 52 unit/L (03/10/22 19:54:00) ALT: 26 IU/L (03/10/22 19:54:00) AST: 33 IU/L (03/10/22 19:54:00) Bili Total: 0.33 mg/dL (03/10/22 19:54:00) Total Protein: 7.5 gm/dL (03/10/22 19:54:00) Hematology Hct:??29.4 %??Low (03/10/22 19:54:00) Hgb:??8.9 gm/dL??Low (03/10/22 19:54:00) INR: 1.1 (03/10/22 19:54:00) Platelet: 211 x10(3)/mcL (03/10/22 19:54:00) RBC:??3.86 x10(6)/mcL??Low (03/10/22 19:54:00) WBC: 6.3 x10(3)/mcL (03/10/22 19:54:00) Assessment/Plan This is a 22-year-old lady with a history of von Willebrand disease likely type II or type III.?? She has been having significant vaginal bleeding. ??She is also had??possible GI bleeding in the pastversus mucocutaneous bleeding of the oropharynx and??rectal??area.?? She currently appears clinically stable although tachycardic but has had significant episodes of??vaginal bleeding thus far in thehospital.?? Given the severity of her bleeding it seems reasonable to monitor on telemetry overnight. ??Serial H&H's and a stat a hemoglobin and hematocrit will be sent.?? She has been given tranexamic acid??by the gynecology service which I agree with.?? Unfortunately in discussion with pharmacy and blood bank we do not carry??von Willebrand factor/factor VIII concentrates.?? She could conceivably receive plasma should the bleeding continue.?? Given the fact that she likely has type II or type III von Willebrand disease DDAVP would only be of minimal benefit. ??I will also put her on some IV Protonix in case there is an element of??GI bleeding??though this seems to be more consistent per her history with mucocutaneous bleeding.?? We will continue to follow along, I have also taken the liberty of increasing her??IV fluids.?? Thank you for this consultation Problem List/Past Medical History Ongoing Anxiety Asthma Depression Endometriosis Methicillin resistant Staphylococcus aureus Historical No qualifying data Medications Inpatient albuterol inhaler, 2 puff(s), Inhaled, q2hr, PRN gabapentin, 300 mg= 1 cap(s), Oral, Daily hydrOXYzine, 25 mg= 1 tab(s), Oral, q6hr, PRN Lactated Ringers Injection 1,000 mL, 1000 mL, IV montelukast, 10 mg= 1 tab(s), Oral, Daily morphine, 4 mg= 1 mL, IV Push, q2hr, PRN oxyCODONE, 5 mg= 1 tab(s), Oral, q4hr, PRN Protonix IV, 40 mg= 10 mL, IV Push, BID sertraline, 100 mg= 2 tab(s), Oral, Daily tiZANidine, 4 mg= 1 tab(s), Oral, q6hr, PRN tranexamic acid, 1000 mg= 10 mL, IV Piggyback, TID traZODone, 100 mg= 1 tab(s), Oral, qHS Ventolin HFA, 2 puff(s), Inhaled, q4hr, PRN Home Advair HFA 115/21 inhalation aerosol with adapter, 2 puff(s), Inhaled, BID Albuterol (Eqv-ProAir HFA) 90 mcg/inh inhalation aerosol, 2 puff(s), Inhaled, q4hr, PRN Extra Strength Tylenol Menstrual, 2 tab(s), Oral, q6hr, PRN gabapentin 300 mg oral capsule hydrOXYzine hydrochloride 25 mg oral tablet, 25 mg= 1 tab(s), Oral, q6hr, PRN montelukast 10 mg oral tablet, 10 mg= 1 tab(s), Oral, Daily norethindrone 5 mg oral tablet, 5 mg= 1 tab(s), Oral, BID omeprazole 20 mg oral delayed release capsule, 20 mg= 1 cap(s), Oral, Daily sertraline 100 mg oral tablet, 100 mg= 1 tab(s), Oral, Daily tiZANidine 4 mg oral tablet, 4 mg= 1 tab(s), Oral, q6hr, PRN traZODone 100 mg oral tablet, 100 mg= 1 tab(s), Oral, qHS Allergies Compazine??(Muscle cramps) Haldol Latex Toradol??(Hives) droperidol penicillin Social History Alcohol - Denies Alcohol Use Home/Environment Feels unsafe at home: No. Substance Abuse Current, Marijuana, 1-2 times per month Tobacco - Denies Tobacco Use Tobacco Use: Denies. Electronically Signed By: RAMAN MONCADA MD Date and Time Signed: 03/10/22 23:37 EDT Care Team Care Team Personnel Name: No Local PCP No Local PCP, Member Role: Primary Care Physician Name: Eamon Sousa, RN Position: ED Nurse/DE ICER FINISHER Member Role: ED Nurse Name: JODI HARMON MD Position: Physician - ED Member Role: ED Physician Address: Address: [address] [place] [address] Name: TOMMY GARCIA MD Position: Physician - [facility] [employer] Med Service: Obstetrics & Gynecology Member Role: Attending Physician Address: Address: [address] [place] [address] Care Team Related Persons Name: BO PAYAN Address: Home [address] [place] [phone] Name: BO PAYAN Address: Home [address] [place] [phone] Name: BO BOOKER Address: [place]
--- OUTSIDE RECORDS SUMMARY | 2022-11-20 17:50 | XMS_ITS | Continuity of Care Document ---
Author Name Unknown Organization [facility] Address Unknown Care Team Providers Care Tableau Lead Name Role Phone No Local PCP, No Local PCP Primary Care Physicia n Unavailable Encounter Date(s): 06/08/22 - 06/08/22 [facility] [address] [place] [address] Discharge Disposition: AMA Attending Physician: ALEC MATT MD Admitting Physician: ALEC MATT MD Allergies, Adverse Reactions, Alerts Substance Reaction Severity Status penicillin Anaphylactic reaction Severe Active droperidol Vomiting Tongue swelling Shaking all over Tetanus Hives Severe Active Latex Hives Mild Active Haldol Anaphylactic reaction Severe Active Compazine Tetanus Vomiting Tongue swelling Shaking all over Hives Severe Active Toradol Hives Mild Active Medications Albuterol (Eqv-ProAir HFA) 90 mcg/inh inhalation aerosol 2 puff(s), Inhaled, q4hr, PRN PRN as needed for wheezing Start Date: 01/21/22 Status: Ordered Extra Strength Tylenol Menstrual 2 tab(s), Oral, q6hr, PRN PRN menstrual pain, 0 Refill(s) Start Date: 03/30/21 Status: Ordered gabapentin 300 mg oral capsule 300 mg = 1 cap(s), Oral, qHS Start Date: 04/20/22 Status: Ordered hydrOXYzine hydrochloride 25 mg oral tablet 25 mg = 1 tab(s), Oral, q6hr, PRN PRN: for anxiety Start Date: 01/21/22 Status: Ordered montelukast 10 mg oral tablet 10 mg = 1 tab(s), Oral, qHS Start Date: 01/21/22 Status: Ordered norethindrone 5 mg oral tablet 5 mg = 1 tab(s), Oral, BID, take at onset of bleeding Start Date: 04/20/22 Status: Ordered omeprazole 20 mg oral delayed release capsule 20 mg = 1 cap(s), Oral, qHS Start Date: 01/21/22 Status: Ordered ondansetron 4 mg oral tablet, disintegrating 4 mg = 1 tab(s), Oral, q8hr, PRN PRN: as needed for nausea/vomiting Start Date: 04/20/22 Status: Ordered sertraline 100 mg oral tablet 100 mg = 1 tab(s), Oral, qHS Start Date: 01/21/22 Status: Ordered tiZANidine 4 mg oral tablet 4 mg = 1 tab(s), Oral, qHS, PRN PRN: muscle spasms Start Date: 01/21/22 Status: Ordered tranexamic acid 650 mg oral tablet 1,300 mg = 2 tab(s), Oral, TID Start Date: 04/20/22 Stop Date: 04/25/22 Status: Ordered traZODone 100 mg oral tablet 100 mg = 1 tab(s), Oral, qHS Start Date: 01/21/22 Status: Ordered Mental Status 06/08/22 Level of Consciousness Alert Orientation Assessment Oriented x 4 Problem List Condition Effective Dates Status Health Status Inform ant Anemia(Confirmed) Active Anxiety(Confirmed) Active Asthma(Confirmed) Active Depression(Confirmed) Active Endometriosis(Confirmed) Active MRSA(Confirmed) 1, 2, 3 04/03/21 Active Vaginal bleeding(Confirmed) Active MRSA triple screen POSITIVE in groin, nares 2Urine Culture from Urine, NOS collected on 03/30/21 22:54:00 EST tested positive for MRSA. Problem updated by Discern Expert on April 03, 2021 09:06:45 EST 3Problem added by Rule (LH_IC_MDRO_MRSA) following Urine Culture from Urine, NOS collected on 30-MAR-2021 22:54:00 EST tested positive for MRSA. Vital Signs Most recent to oldest [Reference Range]: 1 Temperature Oral [35.8-37.3 DegC] 36.6 D egC (06/08/22 4:07 PM) Peripheral Pulse Rate [60-100 bpm] 79 bp m (06/08/22 4:07 PM) Respiratory Rate [14-20 br/min] 18 br/mi n (06/08/22 4:07 PM) Blood Pressure 115/55mmHg (06/08/22 4:07 PM) Social History Social History Type Response Tobacco Tobacco Use: Denies. Sex Female Care Team Care Team Personnel Name: No Local PCP No Local PCP, Member Role: Primary Care Physician Name: ALEC MATT MD Position: Physician - ED Member Role: Attending Physician Address: Address: [address] [place] [phone] Name: Rodney Jarrelleney, Position: ED Nurse/SIGHT MOUNTER Member Role: ED Nurse Care Team Related Persons Name: BO PAYAN Address: [address] [phone] Name: BO PAYAN Address: Home [address] [place] [phone] Name: BO BOOKER Address: [place]
--- OUTSIDE RECORDS SUMMARY | 2022-11-20 17:50 | XMS_ITS | Continuity of Care Document ---
Author Name Unknown Organization [facility] Address Unknown Care Team Providers Care Scorekeeper Name Role Phone No Local PCP, No Local PCP Primary Care Physicia n Unavailable Encounter Date(s): 12/07/21 - 12/08/21 [facility] [address] [place], [place] [address] Encounter Diagnosis Vaginal bleeding(Discharge Diagnosis) - 12/08/21 Discharge Disposition: Home or Self Care Attending Physician: JODI HARMON MD Admitting Physician: JODI HARMON MD Allergies, Adverse Reactions, Alerts Substance Reaction Severity Status penicillin Active droperidol Active Latex Active Haldol Active Compazine Muscle cramps Active Toradol Hives Active Medications Bentyl 20 mg oral tablet 20 mg = 1 tab(s), Oral, QID, # 28 tab(s), 0 Refill(s), Pharmacy: [id number], 165.1, cm, 03/30/21 18:41:00 EST, Height/Length Dosing, 90.7, kg, 03/30/21 18:41:00 EST, Weight Dosing Start Date: 03/30/21 Stop Date: 04/06/21 Status: Ordered Bentyl 20 mg oral tablet 20 mg = 1 tab(s), Oral, QID, # 28 tab(s), 0 Refill(s), Pharmacy: [id number], 163, cm, 02/03/21 15:44:00 EDT, Height/Length Dosing, 95.3, kg, 02/03/21 15:44:00 EDT, Weight Dosing Start Date: 02/03/21 Stop Date: 02/10/21 Status: Ordered CeleBREX 200 mg, Oral, BID Start Date: 05/25/19 Status: Ordered Extra Strength Tylenol Menstrual 0 Refill(s) Start Date: 03/30/21 Status: Ordered gabapentin 400 mg, Oral, Daily Start Date: 08/08/21 Status: Ordered hydrOXYzine 0 Refill(s) Start Date: 03/30/21 Status: Ordered ibuprofen 0 Refill(s) Start Date: 03/30/21 Status: Ordered Lupron Depot 3.75 mg/month intramuscular injection, extended release 3.75 mg, IM, [id number], # 1 ea, 0 Refill(s) Start Date: 04/05/19 Status: Ordered Mirena 0 Refill(s) Start Date: 07/16/19 Status: Ordered montelukast 0 Refill(s) Start Date: 03/30/21 Status: Ordered norethindrone 5 mg oral tablet 10 mg = 2 tab(s), Oral, Daily, Please take 5 mg, 4 times daily for 2 days followed by 5 mg, 3 timesa day for 1 day, and then 5 mg twice a day until the bleeding stops, # 60 tab(s), 0 Refill(s), Pharmacy: [facility] #[id number], 167, cm, 12/07/21... Start Date: 12/08/21 Status: Ordered norethindrone 5 mg oral tablet 0 Refill(s) Start Date: 05/18/19 Status: Ordered ondansetron 4 mg oral tablet, disintegrating 4 mg = 1 tab(s), Oral, q6hr, # 10 tab(s), 0 Refill(s), Pharmacy: [facility] #[id number], 162, cm, 09/01/19 10:41:00 EDT, Height/Length Dosing, 73, kg, 09/01/19 10:41:00 EDT, Weight Dosing Start Date: 09/01/19 Stop Date: 09/04/19 Status: Ordered oxyCODONE 5 mg oral tablet 5 mg = 1 tab(s), Oral, q6hr, PRN PRN: for pain, # 5 tab(s), 0 Refill(s), Pharmacy: [facility] #[id number], 167, cm, 11/16/21 23:18:00 EDT, Height/Length Dosing, 75.2, kg, 12/06/21 12:31:00 EDT, Weight Dosing Start Date: 12/06/21 Status: Ordered Phenergan 25 mg rectal suppository = 1 suppository(ies), IL, q4hr, PRN PRN: as needed for nausea/vomiting, # 12 suppository(ies), 0 Refill(s), Pharmacy: [facility] #[id number], 162, cm, 05/18/19 18:42:47 EST, Height/Length Dosing, 73, kg, 05/18/19 18:42:47 EST, Weight Dosing Start Date: 05/21/19 Status: Ordered sertraline 0 Refill(s) Start Date: 03/30/21 Status: Ordered tiZANidine 0 Refill(s) Start Date: 03/30/21 Status: Ordered traZODone 0 Refill(s) Start Date: 03/30/21 Status: Ordered Zofran ODT 4 mg oral tablet, disintegrating 4 mg = 1 tab(s), Oral, q8hr, PRN PRN: as needed for nausea/vomiting, # 30 tab(s), 0 Refill(s), Pharmacy: [facility] #[id number], 163, cm, 07/29/19 11:21:00 EDT, Height/Length Dosing, 68.1, kg, 07/29/19 11:21:00 EDT, Weight Dosing Start Date: 07/29/19 Status: Ordered Mental Status 12/08/21 Orientation Assessment Oriented x 4 Problem List [...] for MRSA. Results Laboratory List Name Date Hemoglobin and Hematocrit (Hct & Hgb) .Estimated Glomerular Filtration Rate ABO/Rh 12/07/21 Antibody Screen Gel 12/07/21 Auto Differential 12/07/21 CBC Auto Diff reflex Manual Diff 12/07/21 Comprehensive Metabolic Panel 12/07/21 ABO/Rh Second Check 12/07/21 Most recent to oldest [Reference Range]: 1 2 ABSCR-G Interpretation Negative ABSC (12/07/21 11:58 PM) ABO/Rh Interpretation A POS *Unknown* (12/07/21 11:58 PM) AGAP 8 *NA* (12/07/21 11:58 PM) A/G Ratio 1.1 *NA* (12/07/21 11:58 PM) BUN/Creat Ratio 14 *NA* (12/07/21 11:58 PM) RBC [4.00-5.20 x10(6)/mcL] 3.70 x10(6)/m cL *LOW* (12/07/21 11:58 PM) RDW [11.5-14.5 %] 14.4 % (12/07/21 11:58 PM) Sodium Level [136-145 mmol/L] 137 mmol/L (12/07/21 11:58 PM) Total Protein [6.4-8.2 gm/dL] 7.6 gm/dL (12/07/21 11:58 PM) AST [15-37 IU/L] 24 IU/L (12/07/21 11:58 PM) Bili Total [0.20-1.00 mg/dL] 0.31 mg/dL (12/07/21 11:58 PM) CO2 [21-32 mmol/L] 27 mmol/L (12/07/21 11:58 PM) Albumin Level [3.4-5.0 gm/dL] 4.0 gm/dL (12/07/21 11:58 PM) Alk Phos [48-129 unit/L] 55 unit/L (12/07/21 11:58 PM) ALT [13-61 IU/L] 25 IU/L (12/07/21 11:58 PM) Hct [36.0-46.0 %] 26.6 % *LOW* (12/08/21 2:12 AM) 29.1 % *LOW* (12/07/21 11:58 PM) Hgb [12.0-15.0 gm/dL] 8.5 gm/dL *LOW* (12/08/21 2:12 AM) 9.1 gm/dL *LOW* (12/07/21 11:58 PM) MCH [26.0-34.0 pg] 24.6 pg *LOW* (12/07/21 11:58 PM) MCHC [31.0-37.0 gm/dL] 31.3 gm/dL (12/07/21 11:58 PM) MCV [80-100 fL] 79 fL *LOW* (12/07/21 11:58 PM) MPV [9.2-12.7 fL] 12.2 fL (12/07/21 11:58 PM) Glucose Level [74-106 mg/dL] 88 mg/dL (12/07/21 11:58 PM) Platelet [150-350 x10(3)/mcL] 233 x10(3) /mcL (12/07/21 11:58 PM) Potassium Level [3.5-5.1 mmol/L] 3.3 mmo l/L *LOW* (12/07/21 11:58 PM) WBC [4.5-11.0 x10(3)/mcL] 5.1 x10(3)/mcL (12/07/21 11:58 PM) BUN [7-18 mg/dL] 11 mg/dL (12/07/21 11:58 PM) Calcium Level [8.5-10.1 mg/dL] 9.0 mg/dL (12/07/21 11:58 PM) Chloride [98-107 mmol/L] 105 mmol/L (12/07/21 11:58 PM) eGFR AA >60 mL/min/1.73 m2 *NA* (12/07/21 11:58 PM) eGFR BRUNO >60 mL/min/1.73 m2 *NA* (12/07/21 11:58 PM) Neutrophil Absolute [1.50-7.80 x10(3)/mc L] 2.68 x10(3)/mcL (12/07/21 11:58 PM) Lymphocyte Absolute [1.10-4.80 x10(3)/mc L] 1.84 x10(3)/mcL (12/07/21 11:58 PM) Monocyte Absolute 0.42 x10(3)/mcL *NA* (12/07/21 11:58 PM) Eosinophil Absolute 0.15 x10(3)/mcL *NA* (12/07/21 11:58 PM) Basophil Absolute 0.04 x10(3)/mcL *NA* (12/07/21 11:58 PM) Imm Gran Absolute 0.01 /mcL *NA* (12/07/21 11:58 PM) NRBC % [0.0-0.2 %] 0.0 % (12/07/21 11:58 PM) Osmol Calculated 273 mOsm/kg *NA* (12/07/21 11:58 PM) Eosinophil Auto [1.0-4.0 %] 2.9 % (12/07/21 11:58 PM) Immature Granulocyte Auto 0 % *NA* (12/07/21 11:58 PM) Lymphocyte Auto [24.0-44.0 %] 35.8 % (12/07/21 11:58 PM) Monocyte Auto [2.0-11.0 %] 8.2 % (12/07/21 11:58 PM) Neutrophil Auto [31.0-76.0 %] 52.1 % (12/07/21 11:58 PM) Basophil Auto [0.0-2.0 %] 0.8 % (12/07/21 11:58 PM) Creatinine [0.6-1.3 mg/dL] 0.8 mg/dL (12/07/21 11:58 PM) ABORh Second Check A POS *Unknown* (12/07/21 11:58 PM) Vital Signs Most recent to oldest [Reference Range]: 1 2 3 Temperature Oral [35.8-37.3 DegC] 36.8 DegC (12/08/21 3:11 AM) 36.9 DegC (12/07/21 10:52 PM) Peripheral Pulse Rate [60-100 bpm] 78 bpm (12/08/21 3:11 AM) 85 bpm (12/08/21 2:12 AM) 69 bpm (12/08/21 12:03 AM) Respiratory Rate [14-20 br/min] 18 br/min (12/08/21 3:11 AM) 16 br/min (12/08/21 2:12 AM) 16 br/min (12/08/21 12:03 AM) Blood Pressure 110/72mmHg (12/08/21 3:11 AM) 112/62mmHg (12/08/21 2:12 AM) 111/52mmHg (12/08/21 12:03 AM) Social History Social History Type Response Sex Female Care Team Care Team Personnel Name: No Local PCP No Local PCP, Med Service: NO LOCAL PCP Member Role: Primary Care Physician Care Team Related Persons Name: BO PAYAN Address: [address] [phone] Name: BO PAYAN Address: [address] [phone] Name: BO BOOKER
--- OUTSIDE RECORDS SUMMARY | 2022-11-20 17:50 | XMS_ITS | Continuity of Care Document ---
Author Name Unknown Organization [facility] Address Unknown Care Team Providers Care Fine Grade Operator Name Role Phone No Local PCP, No Local PCP Primary Care Physicia n Unavailable Encounter Date(s): 10/20/22 - 10/20/22 [facility] [address] [place], [place] [address] Encounter Diagnosis Abdominal pain(Discharge Diagnosis) - 10/20/22 Discharge Disposition: Home or Self Care Attending Physician: LAVINIA CEDENO MD Admitting Physician: LAVINIA CEDENO MD Allergies, Adverse Reactions, Alerts Substance Reaction Severity Status penicillin Anaphylactic reaction Severe Active droperidol Vomiting Tongue swelling Shaking all over Tetanus Hives Severe Active Latex Hives Mild Active Haldol Anaphylactic reaction Severe Active Compazine Tetanus Vomiting Tongue swelling Shaking all over Hives Severe Active Toradol Hives Mild Active Phenergan Active Medications Albuterol (Eqv-ProAir HFA) 90 mcg/inh inhalation aerosol 2 puff(s), Inhaled, q4hr, PRN PRN as needed for wheezing Start Date: 01/21/22 Status: Ordered Bentyl 20 mg oral tablet 20 mg = 1 tab(s), Oral, QID, # 28 tab(s), 0 Refill(s), Pharmacy: [facility] #[id number], 167.6, cm, 07/27/22 18:15:00 EDT, Height/Length Dosing, 72.5, kg, 07/27/22 18:15:00 EDT, Weight Dosing Start Date: 07/28/22 Stop Date: 08/04/22 Status: Ordered Extra Strength Tylenol Menstrual 2 [...] Start Date: 01/21/22 Status: Ordered Mental Status 10/20/22 Orientation Assessment Oriented x 4 Problem List Condition Confirmation Course Effective Dates Status Health St atus Informant Anemia Confirmed Active Anxiety Confirmed Active Asthma Confirmed Active Depression Confirmed Active Endometriosis Confirmed Active MRSA 1, 2, 3 Confirmed 04/03/21 Active Vaginal bleeding Confirmed Active MRSA triple screen POSITIVE in groin, nares 2Urine Culture from Urine, NOS collected on 03/30/21 22:54:00 EST tested positive for MRSA. Problem updated by Discern Expert on April 03, 2021 09:06:45 EST 3Problem added by Rule (LH_IC_MDRO_MRSA) following Urine Culture from Urine, NOS collected on 30-MAR-2021 22:54:00 EST tested positive for MRSA. Results Laboratory List Name Date .Estimated Glomerular Filtration Rate 10/20/22 Auto Differential 10/20/22 CBC Auto Diff reflex Manual Diff 10/20/22 Comprehensive Metabolic Panel (CMP) HCG Quantitative 10/20/22 Lipase Level 10/20/22 Urinalysis Reflex Microscopi c, Culture if (UA Reflex Microscopic, Culture if Indicated) 10/20/22 Most recent to oldest [Reference Range]: 1 UA Appear Cloudy *NA* (10/20/22 8:04 PM) UA Bili Negative *NA* (10/20/22 8:04 PM) UA Blood Negative *NA* (10/20/22 8:04 PM) UA Color Yellow *NA* (10/20/22 8:04 PM) UA Glucose Negative *NA* (10/20/22 8:04 PM) UA Ketones Trace *ABN* (10/20/22 8:04 PM) UA Leuk Est Negative *NA* (10/20/22 8:04 PM) UA Nitrite Negative *NA* (10/20/22 8:04 PM) UA Protein Negative *NA* (10/20/22 8:04 PM) UA Urobilinogen 1.0 1 (10/20/22 8:04 PM) Microscopic Indicated No *NA* (10/20/22 8:04 PM) AGAP 10 *NA* (10/20/22 8:04 PM) A/G Ratio 1.1 *NA* (10/20/22 8:04 PM) BUN/Creat Ratio 9 *NA* (10/20/22 8:04 PM) RBC [4.00-5.20 x10(6)/mcL] 3.95 x10(6)/m cL *LOW* (10/20/22 8:04 PM) RDW [11.5-14.5 %] 18.2 % *HI* (10/20/22 8:04 PM) Sodium Level [136-145 mmol/L] 141 mmol/L (10/20/22 8:04 PM) Total Protein [6.4-8.2 gm/dL] 7.7 gm/dL (10/20/22 8:04 PM) AST [15-37 IU/L] 29 IU/L (10/20/22 8:04 PM) Bili Total [0.20-1.00 mg/dL] 0.26 mg/dL (10/20/22 8:04 PM) CO2 [21-32 mmol/L] 25 mmol/L (10/20/22 8:04 PM) UA pH [5.0-9.0] 5.5 (10/20/22 8:04 PM) Albumin Level [3.4-5.0 gm/dL] 4.0 gm/dL (10/20/22 8:04 PM) Alk Phos [48-129 unit/L] 61 unit/L (10/20/22 8:04 PM) ALT [13-61 IU/L] 37 IU/L (10/20/22 8:04 PM) Hct [36.0-46.0 %] 30.0 % *LOW* (10/20/22 8:04 PM) Hgb [12.0-15.0 gm/dL] 9.0 gm/dL *LOW* (10/20/22 8:04 PM) Lipase Lvl [13-75 IU/L] 30 IU/L (10/20/22 8:04 PM) MCH [26.0-34.0 pg] 22.8 pg *LOW* (10/20/22 8:04 PM) MCHC [31.0-37.0 gm/dL] 30.0 gm/dL *LOW* (10/20/22 8:04 PM) MCV [80-100 fL] 76 fL *LOW* (10/20/22 8:04 PM) MPV [9.2-12.7 fL] 9.5 fL (10/20/22 8:04 PM) Glucose Level [74-106 mg/dL] 106 mg/dL (10/20/22 8:04 PM) Platelet [150-350 x10(3)/mcL] 266 x10(3) /mcL (10/20/22 8:04 PM) Potassium Level [3.5-5.1 mmol/L] 3.4 mmo l/L *LOW* (10/20/22 8:04 PM) UA Spec Grav [1.000-1.060] 1.025 (10/20/22 8:04 PM) WBC [4.5-11.0 x10(3)/mcL] 4.8 x10(3)/mcL (10/20/22 8:04 PM) BUN [7-18 mg/dL] 8 mg/dL (10/20/22 8:04 PM) Calcium Level [8.5-10.1 mg/dL] 9.2 mg/dL (10/20/22 8:04 PM) Chloride [98-107 mmol/L] 109 mmol/L *HI* (10/20/22 8:04 PM) hCG Qnt [1-3 mIU/mL] <1 mIU/mL (10/20/22 8:04 PM) eGFR AA >60 mL/min/1.73 m2 *NA* (10/20/22 8:04 PM) eGFR BRUNO >60 mL/min/1.73 m2 *NA* (10/20/22 8:04 PM) Neutrophil Absolute [1.50-7.80 x10(3)/mc L] 2.52 x10(3)/mcL (10/20/22 8:04 PM) Lymphocyte Absolute [1.10-4.80 x10(3)/mc L] 1.79 x10(3)/mcL (10/20/22 8:04 PM) Monocyte Absolute 0.31 x10(3)/mcL *NA* (10/20/22 8:04 PM) Eosinophil Absolute 0.08 x10(3)/mcL *NA* (10/20/22 8:04 PM) Basophil Absolute 0.04 x10(3)/mcL *NA* (10/20/22 8:04 PM) Imm Gran Absolute 0.02 /mcL *NA* (10/20/22 8:04 PM) NRBC % [0.0-0.2 %] 0.0 % (10/20/22 8:04 PM) Culture Indicated Not Indicated *NA* (10/20/22 8:04 PM) Osmol Calculated 280 mOsm/kg *NA* (10/20/22 8:04 PM) Eosinophil Auto [1.0-4.0 %] 1.7 % (10/20/22 8:04 PM) Immature Granulocyte Auto 0 % *NA* (10/20/22 8:04 PM) Lymphocyte Auto [24.0-44.0 %] 37.6 % (10/20/22 8:04 PM) Monocyte Auto [2.0-11.0 %] 6.5 % (10/20/22 8:04 PM) Neutrophil Auto [31.0-76.0 %] 53.0 % (10/20/22 8:04 PM) Basophil Auto [0.0-2.0 %] 0.8 % (10/20/22 8:04 PM) Creatinine [0.6-1.3 mg/dL] 0.9 mg/dL (10/20/22 8:04 PM) 1Result Comment: Urobilinogen result is equal to the Semiquantitative Result of: NORMAL Vital Signs Most recent to oldest [Reference Range]: 1 2 3 Temperature Oral [35.8-37.3 DegC] 36.7 DegC (10/20/22 7:13 PM) Peripheral Pulse Rate [60-100 bpm] 96 bpm (10/20/22 11:40 PM) 96 bpm (10/20/22 11:00 PM) 68 bpm (10/20/22 8:45 PM) Respiratory Rate [14-20 br/min] 18 br/min (10/20/22 11:40 PM) 20 br/min (10/20/22 11:00 PM) 18 br/min (10/20/22 8:45 PM) Blood Pressure [90-140/60-90 mmHg] 111/69mmHg (10/20/22 11:40 PM) 114/65mmHg (10/20/22 11:00 PM) 108/54mmHg (10/20/22 8:45 PM) Mean Arterial Pressure, Cuff 79 mmHg (10/20/22 11:00 PM) 68 mmHg (10/20/22 8:45 PM) Blood Pressure 133/82mmHg (10/20/22 7:13 PM) Social History Social History Type Response Tobacco Tobacco Use: Denies. Sex Female Hospital Discharge Instructions Patient Education 10/20/2022 23:10:22 Abdominal Pain, Adult Abdominal Pain, Adult Pain in the abdomen (abdominal pain) can be caused by many things. Often, abdominal pain is not serious and it gets better with no treatment or by being treated at home. However, sometimes abdominal pain is serious. Your health care provider will ask questions about your medical history and do a physical exam to try to determine the cause of your abdominal pain. Follow these instructions at home: Medicines ??? Take [id number] and prescription medicines only as told by your health care provider. ??? Do not take a laxative unless told by your health care provider. General instructions ??? Watch your condition for any changes. ??? Drink enough fluid to keep your urine pale yellow. ??? Keep all follow-up visits as told by your health care provider. This is important. Contact a health care provider if: ??? Your abdominal pain changes or gets worse. ??? You are not hungry or you lose weight without trying. ??? You are constipated or have diarrhea for more than 2???3 days. ??? You have pain when you urinate or have a bowel movement. ??? Your abdominal pain wakes you up at night. ??? Your pain gets worse with meals, after eating, or with certain foods. ??? You are vomiting and cannot keep anything down. ??? You have a fever. ??? You have blood in your urine. Get help right away if: ??? Your pain does not go away as soon as your health care provider told you to expect. ??? You cannot stop vomiting. ??? Your pain is only in areas of the abdomen, such as the right side or the left lower portion of the abdomen. Pain on the right side could be caused by appendicitis. ??? You have bloody or black stools, or stools that look like tar. ??? You have severe pain, cramping, or bloating in your abdomen. ??? You have signs of dehydration, such as: ??? Dark urine, very little urine, or no urine. ??? Cracked lips. ??? Dry mouth. ??? Sunken eyes. ??? Sleepiness. ??? Weakness. ??? You have trouble breathing or chest pain. Summary ??? Often, abdominal pain is not serious and it gets better with no treatment or by being treated at home. However, sometimes abdominal pain is serious. ??? Watch your condition for any changes. ??? Take lmis-fse-xhfnujf and prescription medicines only as told by your health care provider. ??? Contact a health care provider if your abdominal pain changes or gets worse. ??? Get help right away if you have severe pain, cramping, or bloating in your abdomen. This information is not intended to replace advice given to you by your health care provider. Make sure you discuss any questions you have with your health care provider. Document Revised: 06/19/2020 Document Reviewed: 09/09/2019 [employer] Patient Education ?? 2022 [employer] Patient Care team information Care Team Personnel Name: No Local PCP No Local PCP, Member Role: Primary Care Physician Name: Danni Dennison, Position: ED Nurse Management Member Role: ED Nurse Name: Rodney Acosta, Position: ED Nurse/BODY SHOP TECHNICIAN Member Role: ED Nurse Name: LAVINIA CEDENO MD Position: Physician - ED Member Role: Attending Physician Address: Address: [address] [place] [address]- Care Team Related Persons Name: BO PAYAN Address: [place] [address] Name: BO PAYAN Address: [address] [phone] Name: BO BOOKER Address: [place] [address]
--- OUTSIDE RECORDS SUMMARY | 2022-11-20 17:50 | XMS_ITS | Continuity of Care Document ---
Author Name Unknown Organization [facility] Address Unknown Care Team Providers Care Manager Diversity Name Role Phone No Local PCP, No Local PCP Primary Care Physicia n Unavailable Encounter Date(s): 01/20/22 - 01/21/22 [facility] [address] [place] [address] Encounter Diagnosis Acute anemia(Discharge Diagnosis) - 01/20/22 Discharge Disposition: Home or Self Care Attending Physician: Sudhir Barahona MD Admitting Physician: Sudhir Barahona MD Allergies, Adverse Reactions, Alerts Substance Reaction Severity Status penicillin Active droperidol Active Latex Active Haldol Active Compazine Muscle cramps Active Toradol Hives Active Assessment and Plan Extracted from: Title:OB Initial History & Physical Author:Joshua Barahona MD Date:01/20/22 Vaginal bleeding ?? [id number] ?? 22-year-old -0-1-0??presents with complicated vaginal bleeding with longstanding history of abnormal uterine bleeding with menorrhagia requiring blood transfusions.?? Patient also has chronic pelvic pain secondary to stage IV endometriosis. ?? This patient received 1 g of IV tranexamic acid on the evening of 01/20/2022. ??Her bleeding has decreased since that time. ??She has also continued taking her norethindrone and took 15 mg of this??on 01/20/2022. ?? We will admit the patient for IV fluids,??close monitoring of her bleeding, and serial CBCs. ?? Records were requested from [facility] for??further clarification on hemophilia evaluation. ?? Inpatient pain management offered with oxycodone and gabapentin??as well as Tylenol. ??The patient has a??allergic reaction to all NSAIDs. ? Orders: Admit to Hospital 90??minutes were spent on the unit caring the patient, more than half of it in hzce-kl-sads discussion with the patient reviewing the findings above and discussing??ongoing management for the same.?? The patient was ready to learn, no apparent learning barriers were identified; learning preferences included listening. Explained diagnosis and treatment plan; patient expressed understanding of the content.?? She was given the opportunity to ask questions and all of her questions were answered to her satisfaction.? Addendum by Sudhir Barahona MD on January 21, 2022 7:25:14 AM EDT Overnight, the patient used only one tampon which is??significantly less than previously. She is still passing some small blood clots. Repeat CBC demonstrated??a decrease in H&H that??may be consistent with persistent bleeding versus??hemodilution??with IV fluids. Repeat??CBC ordered for this afternoon. IV iron infusion ordered. Diagnostic Tests Pending * PT/INR 01/20/22 * PTT 01/20/22 * Urine Culture 01/21/22 Functional Status 01/21/22 ADLs Independent Medications Advair HFA 115/21 inhalation aerosol with adapter 2 puff(s), Inhaled, BID Start Date: 01/21/22 Status: Ordered Albuterol (Eqv-ProAir HFA) 90 mcg/inh inhalation aerosol 2 puff(s), Inhaled, q4hr, PRN PRN as needed for wheezing Start Date: 01/21/22 Status: Ordered Extra Strength Tylenol Menstrual 2 tab(s), Oral, q6hr, PRN PRN menstrual pain, 0 Refill(s) Start Date: 03/30/21 Status: Ordered hydrOXYzine hydrochloride 25 mg oral tablet 25 mg = 1 tab(s), Oral, q6hr, PRN PRN: for anxiety Start Date: 01/21/22 Status: Ordered montelukast 10 mg oral tablet 10 mg = 1 tab(s), Oral, Daily Start Date: 01/21/22 Status: Ordered norethindrone 5 mg oral tablet 5 mg = 1 tab(s), Oral, BID, # 56 tab(s), 0 Refill(s), Pharmacy: [facility] Pharmacy, 166.74, cm, 01/20/2217:15:00 EDT, Height/Length Dosing, 78.92, kg, 01/20/22 17:15:00 EDT, Weight Dosing Start Date: 01/21/22 Stop Date: 02/18/22 Status: Ordered omeprazole 20 mg oral delayed release capsule 20 mg = 1 cap(s), Oral, Daily Start Date: 01/21/22 Status: Ordered ondansetron 8 mg oral tablet, disintegrating 8 mg = 1 tab(s), Oral, q8hr, 1 tab every 8 hours as needed for nausea, X 3 day(s), # 10 tab(s), 0 Refill(s), Pharmacy: [facility] Pharmacy, 166.74, cm, 01/20/22 17:15:00 EDT, Height/Length Dosing, 78.92, kg, 01/20/22 17:15:00 EDT, Weight Dosing Start Date: 01/21/22 Stop Date: 01/24/22 Status: Ordered sertraline 100 mg oral tablet 100 mg = 1 tab(s), Oral, Daily Start Date: 01/21/22 Status: Ordered tiZANidine 4 mg oral tablet 4 mg = 1 tab(s), Oral, q6hr, PRN PRN: muscle spasms Start Date: 01/21/22 Status: Ordered traZODone 100 mg oral tablet 100 mg = 1 tab(s), Oral, qHS Start Date: 01/21/22 Status: Ordered Mental Status 01/21/22 Level of Consciousness Alert Orientation Assessment Oriented [...] Laboratory List Name Date Hemoglobin and Hematocrit 01/21/22 Drug Screen Urine 01/21/22 Urinalysis Reflex Microscopic, Culture i f 01/21/22 Urinalysis Microscopic Add On Only 2 Red Blood Cells (Blood Bank RBC) 01/21/22 Auto Differential 01/21/22 CBC Auto Diff reflex Manual Diff 01/21/22 SARS-CoV-2 & Influenza A/B (FLU/COVID PC R) 01/20/22 ABO/Rh 01/20/22 Antibody Screen Gel 01/20/22 Auto Differential 01/20/22 CBC Auto Diff reflex Manual Diff 01/20/22 Crossmatch IS 01/20/22 HCG Quantitative 01/20/22 Most recent to oldest [Refer ence Range]: 1 2 3 ABSCR-G Interpretation Negative ABSC (01/20/22 6:53 PM) Coronavirus SARS-CoV-2 [Not Detected] Not Detected 1 *NA* (01/20/22 9:35 PM) Has this individual had a transplant? No (01/21/22 7:11 AM) Product Ready Ready 2 (01/21/22 7:11 AM) BBID [id number] *Unknown* (01/20/22 6:53 PM) ABO/Rh Interpretation A POS *Unknown* (01/20/22 6:53 PM) UA Appear Clear *NA* (01/21/22 8:06 AM) Bacteria Not Present *NA* (01/21/22 8:06 AM) Benzodiazepines Screen Not Detected *NA* (01/21/22 8:07 AM) UA Bili Negative *NA* (01/21/22 8:06 AM) UA Blood 3+ *ABN* (01/21/22 8:06 AM) Cocaine Screen Not Detected *NA* (01/21/22 8:07 AM) UA Color Yellow *NA* (01/21/22 8:06 AM) UA Glucose Negative *NA* (01/21/22 8:06 AM) UA Ketones Negative *NA* (01/21/22 8:06 AM) UA Leuk Est Negative *NA* (01/21/22 8:06 AM) UA Nitrite Negative *NA* (01/21/22 8:06 AM) Opiate Screen Detected *NA* (01/21/22 8:07 AM) Phencyclidine Screen Not Detected *NA* (01/21/22 8:07 AM) UA Protein Negative *NA* (01/21/22 8:06 AM) Red Blood Cells 16-30 *ABN* (01/21/22 8:06 AM) UA Urobilinogen 1.0 3 (01/21/22 8:06 AM) White Blood Cells <1 *NA* (01/21/22 8:06 AM) Microscopic Indicated Yes *NA* (01/21/22 8:06 AM) Casts Not Present *NA* (01/21/22 8:06 AM) Tricyclics Screen Not Detected *NA* (01/21/22 8:07 AM) Amphetamines Screen Not Detected *NA* (01/21/22 8:07 AM) Barbiturates Screen Not Detected *NA* (01/21/22 8:07 AM) T-Cannabinol Screen Not Detected *NA* (01/21/22 8:07 AM) Methamphetamines Screen Not Detected *NA* (01/21/22 8:07 AM) RBC [4.00-5.20 x10(6)/mcL] 2.90 x10(6)/m cL *LOW* (01/21/22 5:51 AM) 3.23 x10(6)/mcL *LOW* (01/20/22 6:53 PM) RDW [11.5-14.5 %] 18.4 % *HI* (01/21/22 5:51 AM) 18.4 % *HI* (01/20/22 6:53 PM) UA pH [5.0-9.0] 7.5 (01/21/22 8:06 AM) Hct [36.0-46.0 %] 23.8 % *LOW* (01/21/22 1:52 PM) 23.7 % *LOW* (01/21/22 5:51 AM) 25.8 % *LOW* (01/20/22 6:53 PM) Hgb [12.0-15.0 gm/dL] 7.2 gm/dL *LOW* (01/21/22 1:52 PM) 7.0 gm/dL *LOW* (01/21/22 5:51 AM) 7.8 gm/dL *LOW* (01/20/22 6:53 PM) MCH [26.0-34.0 pg] 24.1 pg *LOW* (01/21/22 5:51 AM) 24.1 pg *LOW* (01/20/22 6:53 PM) MCHC [31.0-37.0 gm/dL] 29.5 gm/dL *LOW* (01/21/22 5:51 AM) 30.2 gm/dL *LOW* (01/20/22 6:53 PM) MCV [80-100 fL] 82 fL (01/21/22 5:51 AM) 80 fL (01/20/22 6:53 PM) MPV [9.2-12.7 fL] 13.0 fL *HI* (01/21/22 5:51 AM) 11.1 fL (01/20/22 6:53 PM) Platelet [150-350 x10(3)/mcL] 194 x10(3) /mcL (01/21/22 5:51 AM) 254 x10(3)/mcL (01/20/22 6:53 PM) UA Spec Grav [1.000-1.060] 1.020 (01/21/22 8:06 AM) WBC [4.5-11.0 x10(3)/mcL] 3.6 x10(3)/mcL *LOW* (01/21/22 5:51 AM) 5.1 x10(3)/mcL (01/20/22 6:53 PM) hCG Qnt [1-3 mIU/mL] <1 mIU/mL (01/20/22 6:53 PM) Neutrophil Absolute [1.50-7. 80 x10(3)/mcL] 1.70 x10(3)/mcL (01/21/22 5:51 AM) 3.50 x10(3)/mcL (01/20/22 6:53 PM) Lymphocyte Absolute [1.10-4. 80 x10(3)/mcL] 1.47 x10(3)/mcL (01/21/22 5:51 AM) 1.20 x10(3)/mcL (01/20/22 6:53 PM) Monocyte Absolute 0.29 x10(3)/mcL *NA* (01/21/22 5:51 AM) 0.32 x10(3)/mcL *NA* (01/20/22 6:53 PM) Eosinophil Absolute 0.07 x10(3)/mcL *NA* (01/21/22 5:51 AM) 0.06 x10(3)/mcL *NA* (01/20/22 6:53 PM) Basophil Absolute 0.03 x10(3)/mcL *NA* (01/21/22 5:51 AM) 0.03 x10(3)/mcL *NA* (01/20/22 6:53 PM) Imm Gran Absolute 0.01 /mcL *NA* (01/21/22 5:51 AM) 0.01 /mcL *NA* (01/20/22 6:53 PM) NRBC % [0.0-0.2 %] 0.0 % (01/21/22 5:51 AM) 0.0 % (01/20/22 6:53 PM) Methadone Screen Not Detected *NA* (01/21/22 8:07 AM) Culture Indicated Not Indicated *NA* (01/21/22 8:06 AM) Eosinophil Auto [1.0-4.0 %] 2.0 % (01/21/22 5:51 AM) 1.2 % (01/20/22 6:53 PM) Immature Granulocyte Auto 0 % *NA* (01/21/22 5:51 AM) 0 % *NA* (01/20/22 6:53 PM) Lymphocyte Auto [24.0-44.0 %] 41.2 % (01/21/22 5:51 AM) 23.4 % *LOW* (01/20/22 6:53 PM) Monocyte Auto [2.0-11.0 %] 8.1 % (01/21/22 5:51 AM) 6.3 % (01/20/22 6:53 PM) Neutrophil Auto [31.0-76.0 %] 47.6 % (01/21/22 5:51 AM) 68.3 % (01/20/22 6:53 PM) Basophil Auto [0.0-2.0 %] 0.8 % (01/21/22 5:51 AM) 0.6 % (01/20/22 6:53 PM) Oxycodone Screen Not Detected *NA* (01/21/22 8:07 AM) Buprenorphine Screen Not Detected *NA* (01/21/22 8:07 AM) Influenza A [Not Detected] Not Detected *NA* (01/20/22 9:35 PM) Influenza B [Not Detected] Not Detected 4 *NA* (01/20/22 9:35 PM) UA Epithelial Cells Not Present *NA* (01/21/22 8:06 AM) 1Result Comment: EUA/IVD Coronavirus SARS CoV-2 PCR test performed on Trish Letitia 2. SARS CoV-2 Not Detected indicates that RNA was not present in the sample provided above the limit of detection. However, it does not rule out COVID-19 and should not be used as the sole basis for treatment or patientmanagement decisions. The results of this test should be interpreted in combination with clinical observations, patient history, and epidemiological information. 2Result Comment: 01/21/2022 7:54 AM YOSI The blood products requested for this patient are ready. Product availability called to [facility]. 3Result Comment: Urobilinogen result is equal to the Semiquantitative Result of: NORMAL 4Result Comment: EUA/IVD Vital Signs Most recent to oldest [Reference Range]: 1 2 3 Temperature Oral [35.8-37.3 DegC] 37.1 DegC (01/20/22 5:15 PM) Temperature Temporal Artery [36.3-37.8 DegC] 36.9 DegC (01/21/22 4:17 PM) 36.5 DegC (01/21/22 9:00 AM) 36.6 DegC (01/21/22 4:30 AM) Peripheral Pulse Rate [60-100 bpm] 60 bpm (01/21/22 4:17 PM) 65 bpm (01/21/22 9:00 AM) 66 bpm (01/21/22 4:30 AM) Respiratory Rate [14-20 br/min] 16 br/min (01/21/22 4:17 PM) 15 br/min (01/21/22 9:00 AM) 14 br/min (01/21/22 4:30 AM) Blood Pressure [90-140/60-90 mmHg] 106/60mmHg (01/21/22 4:17 PM) 97/55mmHg (01/21/22 9:00 AM) 88/42mmHg *LOW* (01/21/22 5:30 AM) Mean Arterial Pressure, Cuff 56 mmHg (01/21/22 4:30 AM) 68 mmHg (01/20/22 9:00 PM) 67 mmHg (01/20/22 8:00 PM) Blood Pressure 119/70mmHg (01/20/22 5:15 PM) Social History Social History Type Response Tobacco Tobacco Use: Denies. Sex Female Hospital Discharge Instructions Patient Education 01/21/2022 17:18:44 Abnormal Uterine Bleeding Abnormal Uterine Bleeding Abnormal uterine bleeding is unusual bleeding from the uterus. It includes bleeding after sex, or bleeding or spotting between menstrual periods. It may also include bleeding that is heavier than normal, menstrual periods that last longer than usual, or bleeding that occurs after menopause. Abnormal uterine bleeding can affect teenagers, women in their reproductive years, women, and women who have reached menopause. Common causes of abnormal uterine bleeding include: ??? . ??? Growths of tissue (polyps). ??? Benign tumors or growths in the uterus (fibroids). These are not cancer. ??? Infection. ??? Cancer. ??? Too much or too little of some hormones in the body (hormonal imbalances). Any type of abnormal bleeding should be checked by a health care provider. Many cases are minor andsimple to treat, but others may be more serious. Treatment will depend on the cause and severity ofthe bleeding. Follow these instructions at home: Medicines ??? Take oyos-fln-rhupyeg and prescription medicines only as told by your health care provider. ??? Tell your health care provider about other medicines that you take. You may be asked to stop taking aspirin or medicines that contain aspirin. These medicines can make bleeding worse. ??? If you were prescribed iron pills, take them as told by your health care provider. Iron pills help to replace iron that your body loses because of this condition. Managing constipation In cases of severe bleeding, you may be asked to increase your iron intake to treat anemia. This may cause constipation. To prevent or treat constipation, you may need to: ??? Drink enough fluid to keep your urine pale yellow. ??? Take xloj-zsi-ayzzwkr or prescription medicines. ??? Eat foods that are high in fiber, such as beans, whole grains, and fresh fruits and vegetables. ??? Limit foods that are high in fat and processed sugars, such as fried or sweet foods. General instructions ??? Monitor your condition for any changes. ??? Do not use tampons, douche, or have sex until your health care provider says these things are okay. ??? Change your pads often. ??? Get regular exams. This includes pelvic exams and cervical cancer screenings. ??? It is up to you to get the results of any tests that are done. Ask your health care provider, or the department that is doing the tests, when your results will be ready. ??? Keep all follow-up visits as told by your health care provider. This is important. Contact a health care provider if you: ??? Have bleeding that lasts for more than 1 week. ??? Feel dizzy at times. ??? Feel nauseous or you vomit. ??? Feel light-headed or weak. ??? Notice any other changes that show that your condition is getting worse. Get help right away if you: ??? Pass out. ??? Have bleeding that soaks through a pad every hour. ??? Have pain in the abdomen. ??? Have a fever or chills. ??? Become sweaty or weak. ??? Pass large blood clots from your vagina. Summary ??? Abnormal uterine bleeding is unusual bleeding from the uterus. ??? Any type of abnormal bleeding should be evaluated by a health care provider. Many cases are minor and simple to treat, but others may be more serious. ??? Treatment will depend on the cause of the bleeding. ??? Get help right away if you pass out, you have bleeding that soaks through a pad every hour, or you pass large blood clots from your vagina. This information is not intended to replace advice given to you by your health care provider. Make sure you discuss any questions you have with your health care provider. Document Revised: 01/06/2021 Document Reviewed: 03/03/2020 [employer] Patient Education ?? 2021 [employer] Discharge summary * LAVINIA BLACK MD: PERFORM Event Display: Discharge Summary Authored Date: [id number] Discharge Summary Reason for Hospitalization acute anemia thought to be 2/2 vaginal bleeding Discharge Diagnoses same Discharge Medication List Home Medications (11) Active Extra Strength Tylenol Menstrual?? gabapentin??400 mg, Oral, Daily hydrOXYzine?? montelukast?? norethindrone 5 mg oral tablet?? norethindrone 5 mg oral tablet??10 mg = 2 tab(s), Oral, Daily norethindrone 5 mg oral tablet??5 mg = 1 tab(s), Oral, BID ondansetron 8 mg oral tablet, disintegrating??8 mg = 1 tab(s), Oral, q8hr sertraline?? tiZANidine?? traZODone?? Condition at Discharge stable Prognosis good Physician Discharge Instructions Discharge Patient Diet: Regular Depart Patient Activity Level Restrict: As Tolerated Follow Up pt prefers to keep her scheduled follow up appt with Dr. Ashlie Ramos in [place].?? Does not want local follow up at present.?? Aware to call [facility] if local follow up desired. Discharge Disposition home Hospital Course 22-year-old 1 para 0 female with complicated gynecologic history admitted overnight with a UB, menorrhagia, anemia.?? Patient was monitored overnight and had minimal ongoing bleeding.?? H&H were 7.8 and 25.8;?? 01/20/2022 at 1853.?? 01/21/2022 at 05 51 H&H were 7.0 and 23.7.?? Repeat H&H 01/21/2022 at 1352 7.2 and 23.8.?? Patient reported midline abdominal pain that she describes asuterine pain that is her baseline.?? She carries a heating pad everywhere for this pain.?? She has had multiple prior abdominal surgeries, laparoscopic approach, and states she has a diagnosis of endometriosis.?? Patient reports that the surgeries have been performed at [facility], [facility], [place]?? When questioned regarding patient's frequent visits to multiplegynecologist, patient reports that she is strongly trying to find a office executive who will perform ahysterectomy with bilateral salpingo- oophorectomy.?? She reports that she has desired this for manyyears.? Records received from [facility] for most recent hospitalization.?? This was 01/12/2022 to 01/13/2022.??There was concern raised therefore self-injurious cyst/secondary gain.?? This was due to vaginal source, not uterine source and recurrent lacerations.?? Pelvic ultrasound and CT scan 01/12-01/13 were unr emarkable.?? Hematology was consulted and coagulation studies were normal.?? Medicine was consultedand recommended consideration of alternative diagnoses such as Jag-Danlos.?? Patient received 2 units of blood.?? On discharge, patient's H&H was 7.7 and 27.2. ?? Anemia today is noted to be chronic but stable.?? Patient strongly desires discharge to home.?? Shedeclines follow-up here in [place].?? It is offered and patient is aware that we are happy to care for her should she desire follow-up with women's health here in [place].?? She has follow-up scheduled with Dr. Ashlie Ramos and [place].?? She states that this is appointment is in a couple of weeks.?? Patient has a complicated picture with a very confusing history and it is difficult to teaseout whether there is a component of secondary gain/Munchhausen's.?? Regardless, patient has been stable during this admission and is ready for discharge to home.?? She strongly desires discharge to home.?? I emphasized the importance of outpatient follow-up with a single physician to the patient, given her complex history centralization of care would benefit her.?? Return precautions reviewed.?? Patient to call with interim concerns.?? All of the patient's questions were answered today to the best of my ability.?? Patient is in agreement with the above. ?? This note was prepared with the aid of voice recognition technology. The attempts at proofreading sometimes miss mistakes. All attempts are made to reproduce pertinent clinical information but sometimes grammatical mistakes and inappropriate word spelling occurs.?? Time Spent with Patient I spent??30 minutes on the unit caring the patient, more than half of it in eqrc-ti-dskh discussionwith the patient reviewing the findings above and discussing??ongoing management for the same.?? The patient was ready to learn, no apparent learning barriers were identified; learning preferences included listening. Explained diagnosis and treatment plan; patient expressed understanding of the content.?? She was given the opportunity to ask questions and all of her questions were answered to hersatisfaction.?? Electronically Signed By: LAVINIA BLACK MD Date and Time Signed: 01/21/22 17:33 EDT History and physical note * Sudhir Barahona MD: PERFORM, MODIFY, MODIFY, MODIFY Event Display: History and Physical Authored Date: OB Initial History & Physical Chief Complaint very heavy vaginal bleeding and had txa last night and it had slowed it down and has returned a fewhours ago and pt signed out ama last night and now is back for the same reason History of Present Illness 22yo presents with recurrent AUB with menorrhagia with subsequent severe anemia. ?? The patient has had a very complex??and??ongoing gynecologic care at [facility] well [facility]?and has undergone multiple surgeries for stage 4 endometriosis.?? She is currently taking 5mgNorethindrone daily with occasional increases to 10??or 15??mg for heavier bleeding. ?? She was evaluated in [place], [place] 1 week ago for heavy vaginal bleeding and became profoundly anemic & transferred to [facility] for evaluation & treatment. She received blood transfusion at that time (7 days ago). ??She received a dose of tranexamic acid and her norethindrone was increased..?? An evaluation for hemophilia was ongoing and the patient left the hospital AMA??to return to work. ?? She represented to [facility] ER yesterday with increasing bleeding & she was found to be stable. Shereceived 1g TXA which decreased her bleeding temporarily.?? She was recommended admission, but she left AMA to return to work.?? She returned this evening with increasing bleeding. ?? Records from [facility] were requested yesterday however??once received, they were placed in??our medical records department and cannot be accessed today. ??Another records release was requested last night however there was hesitancy to send the records again within 24 hours. ?? The past 3 months of this patient's [employer] Care have been quite complex: [facility] ER note From 12/08 is below: ?? The patient is a 21 year old female with history of stage 4 endometriosis, ovarian torsion and pelvic inflammatory disease. The patient reports having a routine transvaginal US on 10/25/21 to check for ovarian torsion that resulted in many lacerations to her vagina/cervix. Since then she has received many intravaginal procedures to repair the damage and blood transfusions. Her last procedure was on 11/13/21, she has not had pain or bleeding since 11/14/21 or 11/15/21. All procedures were intravaginal, no pelvic or intraabdominal procedures. 36 hours ago she began having pelvic pain, bleeding, nausea and vomiting. She had a fever of 102 last night and has taken??Tylenol??for the fever. Today she took an additional 5 mg Norethindrone to help with the bleeding. She was going through 5 pads an hour but the bleeding has slowed down. No dysuria. She reports abdominal swelling since yesterday. The patient called her surgeon and they recommended going to the ED. (History from my note on 12/06/21) ? Patient now reports that she has had 13 surgeries for??pelvic problems??including a number of laparoscopic surgeries and vaginal surgeries. She has not been sexually active in the past 6 months. She and her fianc?? have discussed??childbearing versus a hysterectomy and she would strongly like to proceed with a hysterectomy however she reports that??none of her doctors??will do this until sheis either 26 or has had children. ?? Historically, the patient has used??every available option for management of her endometriosis as well as management of her heavy vaginal bleeding.?? She has previously used a number of different types of combined OCPs which have created side effects or not worked.?? She used a progestin releasing IUD which caused??weight gain and became embedded in her uterus.?? She used Lupron for??at least6 months but became??severely depressed with suicidal ideation. ??She then used Orilissa for 4 months??and had severe nausea??and difficulty with insurance coverage thereafter.?? She has had the mostsuccess with use of??norethindrone, 5 to??15 mg daily. ?? The patient has chronic pelvic pain related to her endometriosis.?? She was recently prescribed gabapentin??by her PCP in hopes of avoiding admissions for pelvic pain and??narcotic use. ??She reports that she ran out of this 2 weeks ago though she is hoping to restart it. OB History History?(0,0,0,0)?No previous pregnancies history have been recorded LMP/EGA/DARIANA Gestational Age (EGA) and DARIANA? * Note: EGA calculated as of 01/20/2022 ?No EGA/DARIANA calculations have been recorded Review of Systems Constitutional: No fevers, chills, malaise. No unexplained weight changes. Psychiatric: Denies depressed mood or anxiety. HEENT: No visual defects. No change in taste, smell or hearing. No rhinorrhea. No sore throats. No headache. Neck: No neck pain or stiffness. Cardiovascular: No chest pain; No lightheadedness, dizziness or fainting. No palpitations. Respiratory: Denies SOB; No CALDERON; No coughing, wheezing. Abdominal/GI:??Abdominal pain present.?Nausea present. ??No vomiting, diarrhea or constipation. No change in appetite. Genitourinary: No dysuria, no hematuria. Back: No back pain; no CVA tenderness. Musculoskeletal: No generalized aches; No arthritis. Neurological: No focal neurological changes. No weakness. Endocrine: No night sweats; no hot or cold flashes. Integumentary: No skin rashes or lesions. Results Labs Hematology WBC: 5.1 x10(3)/mcL (01/20/22) RBC:??3.23 x10(6)/mcL??Low (01/20/22) Hgb:??7.8 gm/dL??Low (01/20/22) Hct:??25.8 %??Low (01/20/22) MCV: 80 fL (01/20/22) MCH:??24.1 pg??Low (01/20/22) MCHC:??30.2 gm/dL??Low (01/20/22) RDW:??18.4 %??High (01/20/22) Platelet: 254 x10(3)/mcL (01/20/22) MPV: 11.1 fL (01/20/22) NRBC %: 0 % (01/20/22) Neutrophil Auto: 68.3 % (01/20/22) Lymphocyte Auto:??23.4 %??Low (01/20/22) Monocyte Auto: 6.3 % (01/20/22) Eosinophil Auto: 1.2 % (01/20/22) Basophil Auto: 0.6 % (01/20/22) Immature Granulocyte Auto: 0 % (01/20/22) Neutrophil Absolute: 3.5 x10(3)/mcL (01/20/22) Lymphocyte Absolute: 1.2 x10(3)/mcL (01/20/22) Monocyte Absolute: 0.32 x10(3)/mcL (01/20/22) Eosinophil Absolute: 0.06 x10(3)/mcL (01/20/22) Basophil Absolute: 0.03 x10(3)/mcL (01/20/22) Imm Gran Absolute: 0.01 /mcL (01/20/22) Chemistry Glucose Level: 91 mg/dL (01/19/22) Group B Strep Urinalysis UA Color: Yellow Iris (12/06/21) UA Appear: Cloudy Iris (12/06/21) UA Spec Grav: 1.019 (12/06/21) UA Leuk Est: Trace Abnormal (12/06/21) UA Nitrite: Neg Iris (12/06/21) UA pH: 6 (12/06/21) UA Protein: Neg Iris (12/06/21) UA Glucose: Neg Iris (12/06/21) UA Ketones: Neg Iris (12/06/21) UA Urobilinogen: 0.2 (12/06/21) UA Bili: Neg Iris (12/06/21) UA Blood: Neg Iris (12/06/21) Microscopic Indicated: Yes (12/06/21) Bacteria: 4+ SD2 Abnormal (12/06/21) Casts: <1 (12/06/21) Red Blood Cells: <2 (12/06/21) UA Epithelial Cells: 3+ Urisys (12/06/21) White Blood Cells: 4-10 Abnormal (12/06/21) Culture Indicated: Not Indicated (12/06/21) Urine Drug Screen Urine Dipstick POC Glucose Urine Dipstick: Negative (09/07/21) Ketones Urine Dipstick: Negative (09/07/21) Protein Urine Dipstick: 1+ (30 mg/dl) (09/07/21) ABORh ABO/Rh Interpretation: A POS (12/07/21) ABORh Second Check: A POS (12/07/21) ABSCR-G Interpretation: Negative ABSC (12/07/21) Molecular Chlamydia trachomatis DNA PCR: Negative CT (12/06/21) Neisseria gonorrhoeae DNA PCR: Negative NG (12/06/21) Serology Vitals & Measurements T:??37.1?C ??(Oral)?? T:??36.6?C ??(Temporal Artery)?? TMIN:??36.6?C ??(Temporal Artery)?? TMAX:??37.1?C ??(Oral)?? HR:??66??(Peripheral)?? RR:??14?? BP:??88/42?? SpO2:??98%?? WT:??78.92??kg??(Dosing)?? Physical Exam GENERAL: This is a well-groomed, well-nourished female, in no acute distress. She is alert and oriented x3. PSYCH: Appropriate with full affect. HEAD AND NECK: Normocephalic, atraumatic. No lymphadenopathy or thyromegaly. Pupils equal and reactive to light and accommodation. LUNGS: Clear to auscultation bilaterally CARDIOVASCULAR: Regular rate and rhythm. GI: Abdomen is soft, diffusely tender, nondistended. No palpable masses.?? No rebound or guarding. ??Laparoscopic surgical??scars are noted. : Deferred. SKIN: Without visible rashes. NEURO: Sensation is grossly intact. EXTREMITIES: Warm, well perfused. Nontender without edema. Distal pulses are intact. Assessment/Plan Vaginal bleeding ?? [id number] ?? 22-year-old -0-1-0??presents with complicated vaginal bleeding with longstanding history of abnormal uterine bleeding with menorrhagia requiring blood transfusions.?? Patient also has chronic pelvic pain secondary to stage IV endometriosis. ?? This patient received 1 g of IV tranexamic acid on the evening of 01/20/2022. ??Her bleeding has decreased since that time. ??She has also continued taking her norethindrone and took 15 mg of this??on 01/20/2022. ?? We will admit the patient for IV fluids,??close monitoring of her bleeding, and serial CBCs. ?? Records were requested from [facility] for??further clarification on hemophilia evaluation. ?? Inpatient pain management offered with oxycodone and gabapentin??as well as Tylenol. ??The patient has a??allergic reaction to all NSAIDs. Orders: Admit to Hospital 90??minutes were spent on the unit caring the patient, more than half of it in [id number] discussion with the patient reviewing the findings above and discussing??ongoing management for the same.??The patient was ready to learn, no apparent learning barriers were identified; learning preferencesincluded listening. Explained diagnosis and treatment plan; patient expressed understanding of the content.?? She was given the opportunity to ask questions and all of her questions were answered to her satisfaction.? Problem List/Past Medical History Ongoing Anxiety Asthma Depression Endometriosis Methicillin resistant Staphylococcus aureus Historical No qualifying data Medications Inpatient acetaminophen, 650 mg, 2 tab(s), Oral, q6hr, PRN gabapentin, 300 mg, 1 cap(s), Oral, Daily iron sucrose LR 1,000 mL, 1000 mL, IV oxyCODONE, 5 mg, 1 tab(s), Oral, q6hr, PRN sertraline, 50 mg, 1 tab(s), Oral, Daily tiZANidine, 4 mg, 1 tab(s), Oral, Daily traZODone, 50 mg, 1 tab(s), Oral, qHS Zofran, 4 mg, 1 tab(s), Oral, q6hr, PRN Home Extra Strength Tylenol Menstrual gabapentin, 400 mg, Oral, Daily hydrOXYzine montelukast norethindrone 5 mg oral tablet, 10 mg, 2 tab(s), Oral, Daily, Please take 5 mg, 4 times daily for 2days followed by 5 mg, 3 times a day for 1 day, and then 5 mg twice a day until the bleeding stops norethindrone 5 mg oral tablet,?Not taking ondansetron 8 mg oral tablet, disintegrating, 8 mg, 1 tab(s), Oral, q8hr, 1 tab every 8 hours as needed for nausea sertraline tiZANidine traZODone Allergies Compazine??(Muscle cramps) Haldol Latex Toradol??(Hives) droperidol penicillin Social History Alcohol - Denies Alcohol Use Current, 1-2 times per month Current, 1-2 times per month Home/Environment Feels unsafe at home: No. Feels unsafe at home: No. Feels unsafe at home: No. Feels unsafe at home: No. Substance Abuse - Denies Substance Abuse Current, Marijuana, 1-2 times per month Current, Marijuana, 1-2 times per week Tobacco - Denies Tobacco Use Tobacco Use: Denies. Electronically Signed By: Sudhir Barahona MD Date and Time Signed: 01/21/22 07:24 EDT * Sudhir Barahona MD: PERFORM Event Display: History and Physical Authored Date: Overnight, the patient used only one tampon which is??significantly less than previously. She is still passing some small blood clots. Repeat CBC demonstrated??a decrease in H&H that??may be consistent with persistent bleeding versus??hemodilution??with IV fluids. Repeat??CBC ordered for this afternoon. IV iron infusion ordered. Electronically Signed By: Sudhir Barahona MD Date and Time Signed: 01/21/22 07:25 EDT Care Team Care Team Personnel Name: No Local PCP No Local PCP, Med Service: NO LOCAL PCP Member Role: Primary Care Physician Care Team Related Persons Name: BO PAYAN Address: [address] [phone] Name: BO PAYAN Address: [address] [id number] Name: BO BOOKER Address: Home
--- OUTSIDE RECORDS SUMMARY | 2022-11-20 17:50 | XMS_ITS | Continuity of Care Document ---
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 Name Role Phone No Local PCP, No Local PCP Primary Care Physicia n Unavailable Encounter Date(s): 10/04/21 - 10/05/21 [facility] [address] [place] [address], [place] [address] Encounter Diagnosis Endometriosis(Discharge Diagnosis) - 10/04/21 Ovarian cyst(Discharge Diagnosis) - 10/04/21 Discharge Disposition: Home or Self Care Attending Physician: MONSE BROUSSARD MD Admitting Physician: MONSE BROUSSARD MD Allergies, Adverse Reactions, Alerts Substance Reaction Severity Status penicillin Active droperidol Active Latex Active Haldol Active Compazine Muscle cramps Active Toradol Hives Active Assessment and Plan Diagnostic Tests Pending * GTY Probe 10/04/21 Medications Bentyl 20 mg oral tablet 20 mg = 1 tab(s), Oral, QID, # 28 tab(s), 0 Refill(s), Pharmacy: [id number], 165.1, cm, 03/30/21 18:41:00 EST, Height/Length Dosing, 90.7, kg, 03/30/21 18:41:00 EST, Weight Dosing Start Date: 03/30/21 Stop Date: 04/06/21 Status: Ordered Bentyl 20 mg oral tablet 20 mg = 1 tab(s), Oral, QID, # 28 tab(s), 0 Refill(s), Pharmacy: [id number], 163, cm, 02/03/21 15:44:00 [...] intramuscular injection, extended release 3.75 mg, IM, [id number], # 1 ea, 0 Refill(s) Start Date: 04/05/19 Status: Ordered Mirena 0 Refill(s) Start Date: 07/16/19 Status: Ordered montelukast 0 Refill(s) Start Date: 03/30/21 Status: Ordered norethindrone 5 mg oral tablet 0 Refill(s) Start Date: 05/18/19 Status: Ordered ondansetron 4 mg oral tablet, disintegrating 4 mg = 1 tab(s), Oral, q6hr, # 10 tab(s), 0 Refill(s), Pharmacy: [facility] #[id number], 162, cm, 09/01/19 10:41:00 EDT, Height/Length Dosing, 73, kg, 09/01/19 10:41:00 EDT, Weight Dosing Start Date: 09/01/19 Stop Date: 09/04/19 Status: Ordered Phenergan 25 mg rectal suppository = 1 suppository(ies), NC, q4hr, PRN PRN: as needed for nausea/vomiting, # 12 suppository(ies), 0 Refill(s), Pharmacy: [facility] #[id number], 162, cm, 05/18/19 18:42:47 EST, Height/Length Dosing, [...] nausea/vomiting, # 30 tab(s), 0 Refill(s), Pharmacy: [facility] #[id number], 163, cm, 07/29/19 11:21:00 EDT, Height/Length Dosing, 68.1, kg, 07/29/19 11:21:00 EDT, Weight Dosing Start Date: 07/29/19 Status: Ordered Mental Status 10/04/21 Orientation Assessment Oriented x 4 10/04/21 Level of Consciousness Alert Problem List Condition Effective Dates Status Health [...] List Name Date .Estimated Glomerular Filtration Rate Auto Differential 10/04/21 CBC Auto Diff reflex Manual Diff 10/04/21 Comprehensive Metabolic Panel 10/04/21 Lipase Level 10/04/21 Urinalysis Reflex Microscopic if Indicat ed 10/04/21 Most recent to oldest [Reference Range]: 1 2 UA Appear Cloudy *NA* (10/04/21 7:50 PM) UA Bili Negative *NA* (10/04/21 7:50 PM) UA Blood Negative *NA* (10/04/21 7:50 PM) UA Color Yellow *NA* (10/04/21 7:50 PM) UA Glucose Negative *NA* (10/04/21 7:50 PM) UA Ketones 1+ *ABN* (10/04/21 7:50 PM) UA Leuk Est Negative *NA* (10/04/21 7:50 PM) UA Nitrite Negative *NA* (10/04/21 7:50 PM) UA Protein Negative *NA* (10/04/21 7:50 PM) UA Urobilinogen 0.2 1 (10/04/21 7:50 PM) Microscopic Indicated No *NA* (10/04/21 7:50 PM) AGAP 9 *NA* (10/04/21 8:15 PM) A/G Ratio 1.1 *NA* (10/04/21 8:15 PM) BUN/Creat Ratio 15 *NA* (10/04/21 8:15 PM) RBC [4.00-5.20 x10(6)/mcL] 4.25 x10(6)/m cL (10/04/21 8:15 PM) RDW [11.5-14.5 %] 14.1 % (10/04/21 8:15 PM) Sodium Level [136-145 mmol/L] 137 mmol/L (10/04/21 8:15 PM) Total Protein [6.4-8.2 gm/dL] 7.7 gm/dL (10/04/21 8:15 PM) AST [15-37 IU/L] 26 IU/L (10/04/21 8:15 PM) Bili Total [0.20-1.00 mg/dL] 0.30 mg/dL (10/04/21 8:15 PM) CO2 [21-32 mmol/L] 24 mmol/L (10/04/21 8:15 PM) UA pH [5.0-9.0] 5.5 (10/04/21 7:50 PM) Albumin Level [3.4-5.0 gm/dL] 4.0 gm/dL (10/04/21 8:15 PM) Alk Phos [48-129 unit/L] 55 unit/L (10/04/21 8:15 PM) ALT [13-61 IU/L] 30 IU/L (10/04/21 8:15 PM) Hct [36.0-46.0 %] 34.4 % *LOW* (10/04/21 8:15 PM) Hgb [12.0-15.0 gm/dL] 10.5 gm/dL *LOW* (10/04/21 8:15 PM) Lipase Lvl [73-393 IU/L] 92 IU/L (10/04/21 8:15 PM) MCH [26.0-34.0 pg] 24.7 pg *LOW* (10/04/21 8:15 PM) MCHC [31.0-37.0 gm/dL] 30.5 gm/dL *LOW* (10/04/21 8:15 PM) MCV [80-100 fL] 81 fL (10/04/21 8:15 PM) MPV [9.2-12.7 fL] 12.0 fL (10/04/21 8:15 PM) Glucose Level [74-106 mg/dL] 85 mg/dL (10/04/21 8:15 PM) Platelet [150-350 x10(3)/mcL] 194 x10(3) /mcL (10/04/21 8:15 PM) Potassium Level [3.5-5.1 mmol/L] 3.3 mmo l/L *LOW* (10/04/21 8:15 PM) UA Spec Grav [1.000-1.060] 1.025 (10/04/21 7:50 PM) WBC [4.5-11.0 x10(3)/mcL] 6.1 x10(3)/mcL (10/04/21 8:15 PM) BUN [7-18 mg/dL] 12 mg/dL (10/04/21 8:15 PM) Calcium Level [8.5-10.1 mg/dL] 9.0 mg/dL (10/04/21 8:15 PM) Chloride [98-107 mmol/L] 107 mmol/L (10/04/21 8:15 PM) eGFR AA >60 mL/min/1.73 m2 *NA* (10/04/21 8:15 PM) eGFR BRUNO >60 mL/min/1.73 m2 *NA* (10/04/21 8:15 PM) Neutrophil Absolute [1.50-7.80 x10(3)/mc L] 4.10 x10(3)/mcL (10/04/21 8:15 PM) Lymphocyte Absolute [1.10-4.80 x10(3)/mc L] 1.39 x10(3)/mcL (10/04/21 8:15 PM) Monocyte Absolute 0.53 x10(3)/mcL *NA* (10/04/21 8:15 PM) Eosinophil Absolute 0.06 x10(3)/mcL *NA* (10/04/21 8:15 PM) Basophil Absolute 0.05 x10(3)/mcL *NA* (10/04/21 8:15 PM) Imm Gran Absolute 0.01 /mcL *NA* (10/04/21 8:15 PM) NRBC % [0.0-0.2 %] 0.0 % (10/04/21 8:15 PM) Osmol Calculated 273 mOsm/kg *NA* (10/04/21 8:15 PM) Eosinophil Auto [1.0-4.0 %] 1.0 % (10/04/21 8:15 PM) Immature Granulocyte Auto 0 % *NA* (10/04/21 8:15 PM) Lymphocyte Auto [24.0-44.0 %] 22.6 % *LOW* (10/04/21 8:15 PM) Monocyte Auto [2.0-11.0 %] 8.6 % (10/04/21 8:15 PM) Neutrophil Auto [31.0-76.0 %] 66.8 % (10/04/21 8:15 PM) Basophil Auto [0.0-2.0 %] 0.8 % (10/04/21 8:15 PM) hCG POC Negative (10/04/21 11:12 PM) Negative (10/04/21 11:12 PM) Creatinine [0.6-1.3 mg/dL] 0.8 mg/dL (10/04/21 8:15 PM) 1Result Comment: Urobilinogen result is equal to the Semiquantitative Result of: NORMAL Radiology Reports * Exam Date Time Procedure Performing Provider Status 10/04/21 9:00 PM US Transvaginal Non-OB Mo dified US Transvaginal ATHLETIC EQUIPMENT MANAGER- [id number] PROCEDURE: US Transvaginal ATHLETIC EQUIPMENT MANAGER- [id number], US Doppler Abd/Pelvic Limited- [id number] CLINICAL INDICATION: Abdominal Pain COMPARISON: 09/07/2021. TECHNIQUE: Multiple transvaginal sonographic images of the pelvis were obtained. A complete Doppler examination including color Doppler and spectral waveform analysis was performed to evaluate blood flow within the ovaries. FINDINGS: Uterus: Measures 7.1 x 3.4 x 4.3 cm. No suspicious intrauterine masses. Endometrium: Measures 5 mm in thickness, which is normal. Right ovary: Measures 2.5 x 1.4 x 2.1 cm. Normal arterial and venous blood flow. No evidence of torsion. No suspicious mass. Left ovary: The left ovary is not visualized. Free fluid: No free fluid within the pelvis. IMPRESSION: 1. Nonvisualization of the left ovary. 2. Otherwise, unremarkable pelvic ultrasound. Specifically, no abnormal free fluid or evidence of ovarian torsion. Electronically Signed by: Cuauhtemoc Barahona MD 10/05/2021 7:20 AM * Exam Date Time Procedure Performing Provider Status 10/04/21 9:00 PM US Art/Vein Abd/Pelv is/Scrotal Limited Auth (Verified) US Doppler Abd/Pelvic Limited- [id number] PROCEDURE: US Transvaginal ATHLETIC EQUIPMENT MANAGER- [id number], US Doppler Abd/Pelvic Limited- [id number] CLINICAL INDICATION: Abdominal Pain COMPARISON: 09/07/2021. TECHNIQUE: Multiple transvaginal sonographic images of the pelvis were obtained. A complete Doppler examination including color Doppler and spectral waveform analysis was performed to evaluate blood flow within the ovaries. FINDINGS: Uterus: Measures 7.1 x 3.4 x 4.3 cm. No suspicious intrauterine masses. Endometrium: Measures 5 mm in thickness, which is normal. Right ovary: Measures 2.5 x 1.4 x 2.1 cm. Normal arterial and venous blood flow. No evidence of torsion. No suspicious mass. Left ovary: The left ovary is not visualized. Free fluid: No free fluid within the pelvis. IMPRESSION: 1. Nonvisualization of the left ovary. 2. Otherwise, unremarkable pelvic ultrasound. Specifically, no abnormal free fluid or evidence of ovarian torsion. Electronically Signed by: Cuauhtemoc Barahona MD 10/05/2021 7:20 AM Vital Signs Most recent to oldest [Reference Range]: 1 2 3 Temperature Oral [35.8-37.3 DegC] 36.9 DegC (10/04/21 4:56 PM) Peripheral Pulse Rate [60-100 bpm] 74 bpm (10/05/21 12:02 AM) 69 bpm (10/04/21 8:13 PM) 68 bpm (10/04/21 4:56 PM) Respiratory Rate [14-20 br/min] 14 br/min (10/05/21 12:02 AM) 16 br/min (10/04/21 8:13 PM) 18 br/min (10/04/21 4:56 PM) Blood Pressure 120/61mmHg (10/05/21 12:02 AM) 128/63mmHg (10/04/21 8:13 PM) 120/51mmHg (10/04/21 4:56 PM) Social History Social History Type Response Sex Female Hospital Discharge Instructions Patient Education 10/04/2021 23:11:23 Pelvic Pain, Female Pelvic Pain, Female Pelvic pain is pain in your lower abdomen, below your belly button and between your hips. The pain may start suddenly (be acute), keep coming back (be recurring), or last a long time (become chronic). Pelvic pain that lasts longer than 6 months is considered chronic. Pelvic pain may affect your: ??? Reproductive organs. ??? Urinary system. ??? Digestive tract. ??? Musculoskeletal system. There are many potential causes of pelvic pain. Sometimes, the pain can be a result of digestive orurinary conditions, strained muscles or ligaments, or reproductive conditions. Sometimes the cause of pelvic pain is not known. Follow these instructions at home: ??? Take [id number] and prescription medicines only as told by your health care provider. ??? Rest as told by your health care provider. ??? Do not have sex if it hurts. ??? Keep a journal of your pelvic pain. Write down: ??? When the pain started. ??? Where the pain is located. ??? What seems to make the pain better or worse, such as food or your period (menstrual cycle). ??? Any symptoms you have along with the pain. ??? Keep all follow-up visits as told by your health care provider. This is important. Contact a health care provider if: ??? Medicine does not help your pain. ??? Your pain comes back. ??? You have new symptoms. ??? You have abnormal vaginal discharge or bleeding, including bleeding after menopause. ??? You have a fever or chills. ??? You are constipated. ??? You have blood in your urine or stool. ??? You have foul-smelling urine. ??? You feel weak or light-headed. Get help right away if: ??? You have sudden severe pain. ??? Your pain gets steadily worse. ??? You have severe pain along with fever, nausea, vomiting, or excessive sweating. ??? You lose consciousness. Summary ??? Pelvic pain is pain in your lower abdomen, below your belly button and between your hips. ??? There are many potential causes of pelvic pain. ??? Keep a journal of your pelvic pain. This information is not intended to replace advice given to you by your health care provider. Make sure you discuss any questions you have with your health care provider. Document Revised: 10/17/2018 Document Reviewed: 10/17/2018 Elsevier Patient Education ?? 2020 [employer]. Note * Event Display: US Transvaginal Non-OB Authored Date: [id number] PROCEDURE: US Transvaginal ATHLETIC EQUIPMENT MANAGER- [id number], US Doppler Abd/Pelvic Limited- [id number] CLINICAL INDICATION: Abdominal Pain COMPARISON: 09/07/2021. TECHNIQUE: Multiple transvaginal sonographic images of the pelvis were obtained. A complete Doppler examination including color Doppler and spectral waveform analysis was performed to evaluate blood flow within the ovaries. FINDINGS: Uterus: Measures 7.1 x 3.4 x 4.3 cm. No suspicious intrauterine masses. Endometrium: Measures 5 mm in thickness, which is normal. Right ovary: Measures 2.5 x 1.4 x 2.1 cm. Normal arterial and venous blood flow. No evidence of torsion. No suspicious mass. Left ovary: The left ovary is not visualized. Free fluid: No free fluid within the pelvis. IMPRESSION: 1. Nonvisualization of the left ovary. 2. Otherwise, unremarkable pelvic ultrasound. Specifically, no abnormal free fluid or evidence of ovarian torsion. Electronically Signed by: Cuauhtemoc Barahona MD 10/05/2021 7:20 AM * Event Display: US Art/Vein Abd/Pelvis/Scrotal Limited Authored Date: [id number] PROCEDURE: US Transvaginal ATHLETIC EQUIPMENT MANAGER- [id number], US Doppler Abd/Pelvic Limited- [id number] CLINICAL INDICATION: Abdominal Pain COMPARISON: 09/07/2021. TECHNIQUE: Multiple transvaginal sonographic images of the pelvis were obtained. A complete Doppler examination including color Doppler and spectral waveform analysis was performed to evaluate blood flow within the ovaries. FINDINGS: Uterus: Measures 7.1 x 3.4 x 4.3 cm. No suspicious intrauterine masses. Endometrium: Measures 5 mm in thickness, which is normal. Right ovary: Measures 2.5 x 1.4 x 2.1 cm. Normal arterial and venous blood flow. No evidence of torsion. No suspicious mass. Left ovary: The left ovary is not visualized. Free fluid: No free fluid within the pelvis. IMPRESSION: 1. Nonvisualization of the left ovary. 2. Otherwise, unremarkable pelvic ultrasound. Specifically, no abnormal free fluid or evidence of ovarian torsion. Electronically Signed by: Cuauhtemoc Barahona MD 10/05/2021 7:20 AM Care Team Personnel Name: No Local PCP No Local PCP,
--- OUTSIDE RECORDS SUMMARY | 2022-11-20 17:50 | XMS_ITS | Continuity of Care Document ---
Author Name Unknown Organization [facility] Address Unknown Care Team Providers [employer] Name Role Phone No Local PCP, No Local PCP Primary Care Physicia n Unavailable Encounter Date(s): 05/12/22 - 05/13/22 [facility] [address], [place] [address] Encounter Diagnosis AP (abdominal pain)(Discharge Diagnosis) - 05/13/22 Nausea and vomiting(Discharge Diagnosis) - 05/13/22 Vaginal bleeding(Discharge Diagnosis) - 05/13/22 Discharge Disposition: Home or Self Care Attending Physician: ALEC MATT MD Admitting Physician: [...] Start Date: 01/21/22 Status: Ordered Mental Status 05/12/22 Orientation Assessment Oriented x 4 Problem List [...] for MRSA. Results Laboratory List Name Date ABO/Rh 05/13/22 Antibody Screen Gel 05/13/22 .Estimated Glomerular Filtration Rate Auto Differential 05/12/22 CBC Auto Diff reflex Manual Diff 2 Comprehensive Metabolic Panel 05/12/22 Magnesium Level 05/12/22 Most recent to oldest [Reference Range]: 1 ABSCR-G Interpretation Negative ABSC (05/13/22 3:01 AM) ABO/Rh Interpretation A POS *Unknown* (05/13/22 3:01 AM) AGAP 8 *NA* (05/12/22 5:18 PM) A/G Ratio 1.0 *NA* (05/12/22 5:18 PM) BUN/Creat Ratio 9 *NA* (05/12/22 5:18 PM) RBC [4.00-5.20 x10(6)/mcL] 3.70 x10(6)/m cL *LOW* (05/12/22 5:18 PM) RDW [11.5-14.5 %] 14.8 % *HI* (05/12/22 5:18 PM) Sodium Level [136-145 mmol/L] 139 mmol/L (05/12/22 5:18 PM) Total Protein [6.4-8.2 gm/dL] 7.4 gm/dL (05/12/22 5:18 PM) AST [15-37 IU/L] 74 IU/L *HI* (05/12/22 5:18 PM) Bili Total [0.20-1.00 mg/dL] 0.39 mg/dL (05/12/22 5:18 PM) CO2 [21-32 mmol/L] 30 mmol/L (05/12/22 5:18 PM) Albumin Level [3.4-5.0 gm/dL] 3.7 gm/dL (05/12/22 5:18 PM) Alk Phos [48-129 unit/L] 113 unit/L (05/12/22 5:18 PM) ALT [13-61 IU/L] 43 IU/L (05/12/22 5:18 PM) Hct [36.0-46.0 %] 32.9 % *LOW* (05/12/22 5:18 PM) Hgb [12.0-15.0 gm/dL] 10.9 gm/dL *LOW* (05/12/22 5:18 PM) Magnesium [1.6-2.3 mg/dL] 1.9 mg/dL (05/12/22 5:18 PM) MCH [26.0-34.0 pg] 29.5 pg (05/12/22 5:18 PM) MCHC [31.0-37.0 gm/dL] 33.1 gm/dL (05/12/22 5:18 PM) MCV [80-100 fL] 89 fL (05/12/22 5:18 PM) MPV [9.2-12.7 fL] 9.7 fL (05/12/22 5:18 PM) Glucose Level [74-106 mg/dL] 94 mg/dL (05/12/22 5:18 PM) Platelet [150-350 x10(3)/mcL] 254 x10(3) /mcL (05/12/22 5:18 PM) Potassium Level [3.5-5.1 mmol/L] 3.5 mmo l/L (05/12/22 5:18 PM) WBC [4.5-11.0 x10(3)/mcL] 5.3 x10(3)/mcL (05/12/22 5:18 PM) BUN [7-18 mg/dL] 6 mg/dL *LOW* (05/12/22 5:18 PM) Calcium Level [8.5-10.1 mg/dL] 9.0 mg/dL (05/12/22 5:18 PM) Chloride [98-107 mmol/L] 104 mmol/L (05/12/22 5:18 PM) eGFR AA >60 mL/min/1.73 m2 *NA* (05/12/22 5:18 PM) eGFR BRUNO >60 mL/min/1.73 m2 *NA* (05/12/22 5:18 PM) Neutrophil Absolute [1.50-7.80 x10(3)/mc L] 3.10 x10(3)/mcL (05/12/22 5:18 PM) Lymphocyte Absolute [1.10-4.80 x10(3)/mc L] 1.54 x10(3)/mcL (05/12/22 5:18 PM) Monocyte Absolute 0.30 x10(3)/mcL *NA* (05/12/22 5:18 PM) Eosinophil Absolute 0.28 x10(3)/mcL *NA* (05/12/22 5:18 PM) Basophil Absolute 0.05 x10(3)/mcL *NA* (05/12/22 5:18 PM) Imm Gran Absolute 0.03 /mcL *NA* (05/12/22 5:18 PM) NRBC % [0.0-0.2 %] 0.0 % (05/12/22 5:18 PM) Osmol Calculated 275 mOsm/kg *NA* (05/12/22 5:18 PM) Eosinophil Auto [1.0-4.0 %] 5.3 % *HI* (05/12/22 5:18 PM) Immature Granulocyte Auto 1 % *NA* (05/12/22 5:18 PM) Lymphocyte Auto [24.0-44.0 %] 29.1 % (05/12/22 5:18 PM) Monocyte Auto [2.0-11.0 %] 5.7 % (05/12/22 5:18 PM) Neutrophil Auto [31.0-76.0 %] 58.4 % (05/12/22 5:18 PM) Basophil Auto [0.0-2.0 %] 0.9 % (05/12/22 5:18 PM) Creatinine [0.6-1.3 mg/dL] 0.7 mg/dL (05/12/22 5:18 PM) Radiology Reports * Exam Date Time Procedure Performing Provider Status 05/13/22 2:[address] Abdomen and pelvi s with contrast- [address] ABD PEL W 13792 PROCEDURE: CT ABD PEL W 72052 CLINICAL INDICATION: vomiting, recent abd surgery, bleeding COMPARISON: 11/17/2021 TECHNIQUE: Multiple contiguous axial CT images of the abdomen and pelvis were obtained following the uneventful administration of intravenous contrast. Coronal and sagittal reformatted images were obtained. Dose reduction techniques including automated exposure control were utilized. Contrast (LOCM) 350-399 100 Cubic Centimeters Intravenous 05/13/2022 02:28 AM DLP DOSE: 450.94 (mGy.cm) FINDINGS: Lung bases: Normal. Liver: Normal. Gallbladder and biliary tree: Normal with no calcified gallstones or biliary ductal dilation. Pancreas: Normal. Spleen: Mild nonspecific splenomegaly. Adrenal glands: Normal. Kidneys and ureters: Normal. Bowel: Status post partial colectomy with a left lower quadrant colostomy. No evidence of bowel obstruction. No focal wall thickening, inflammatory change, or other significant abnormality. Urinary bladder: Normal. Lymph nodes: No enlarged retroperitoneal,mesenteric, or pelvic lymph nodes. Peritoneum: Normal. Retroperitoneum: Normal. Vascular structures: Normal. Abdominal wall: Normal. Bones: Normal. IMPRESSION: 1. Status post partial colectomy with a left lower quadrant colostomy. 2. Mild nonspecific splenomegaly. Electronically Signed by: Cuauhtemoc Barahona MD 05/13/2022 6:32 AM Vital Signs Most recent to oldest [Reference Range]: 1 2 3 Temperature Oral [35.8-37.3 DegC] 36.8 DegC (05/12/22 4:55 PM) Peripheral Pulse Rate [60-100 bpm] 85 bpm (05/13/22 10:04 AM) 89 bpm (05/13/22 9:40 AM) 92 bpm (05/13/22 4:30 AM) Respiratory Rate [14-20 br/min] 18 br/min (05/12/22 4:55 PM) Blood Pressure [90-140/60-90 mmHg] 88/63mmHg *LOW* (05/13/22 10:04 AM) 106/54mmHg (05/13/22 9:40 AM) 91/55mmHg (05/13/22 3:45 AM) Mean Arterial Pressure, Cuff 68 mmHg (05/13/22 3:45 AM) 62 mmHg (05/13/22 3:00 AM) Blood Pressure 130/68mmHg (05/12/22 4:55 PM) Social History Social History Type Response Tobacco Tobacco Use: Denies. Sex Female Hospital Discharge Instructions Patient Education 05/13/2022 10:16:35 Abdominal Pain, Adult Abdominal Pain, Adult Pain [...] these instructions at home: Medicines ??? Take [id number] and prescription medicines only as told by [...] your condition for any changes. ??? Take [id number] and prescription medicines only as told by [...] provider. Document Revised: 06/19/2020 Document Reviewed: 09/09/2019 [employer] Patient Education ?? 2021 [employer] Consult note * Sudhir Barahona MD: MODIFY, PERFORM Event Display: Consultation Authored Date: [id number] OB Admission History & Physical Chief Complaint Pt had extensive abd. surgery 05/02 with new ostomy, states unable to keep down food or fluid x24 hours and blood in her stool History of Present Illness 22-year-old?? female??is presenting to our emergency room for abdominal pain and vaginal bleeding. ??She has been seen numerous times in our emergency room for vaginal bleeding.?? She has beentreated for vaginal bleeding that was thought to be uterine in etiology and??has responded well to hormonal management, tranexamic acid, and??has previously been recommended a??progestin releasing IUD which she has declined.?? Please see prior notes for??[employer] history and previous treatments. ?? Complicating her medical situation, approximately 2 weeks ago, the patient was admitted emergently to??a hospital in [place] for profuse vaginal and rectal bleeding. ??She was diagnosed with a hemorrhaging rectovaginal fistula. ??She underwent??an emergency surgery??where the fistula was repaired a partial colectomy was performed, and??a diverting colostomy was placed.?? The patient is uncertain how she??acquired a fistula. ??She reports having numerous units of blood transfused and was in the ICU for a few days.?? Records from this admission and surgery are not available to me at this time. ?? She presented to the emergency room last night??for abdominal pain and nausea.?? A CT scan??was??essentially normal.?? Since being in the emergency room, she has started to have some light vaginal bleeding which has??stopped per the patient's report. ?? There has been a question of Munchhausen's??with a question of self-inflicted vaginal trauma. ?? At this time, the patient reports??feeling well since her discharge from the hospital 4 days ago.?? She has been living with her grandfather in [facility].?? She has not??had??any vaginalbleeding until??earlier this morning.?? She denies using tampons or placing anything else in the vagina. ??She reports only having intercourse with her fianc?2 times in the past 6 months because of vaginal pain during intercourse and her??problems with vaginal bleeding. [employer] History Numerous episodes of??heavy vaginal bleeding, history of endometriosis, new diagnosis??and surgicalrepair of??enterovaginal fistula Labs Hematology WBC: 5.3 x10(3)/mcL (05/12/22) RBC:??3.7 x10(6)/mcL??Low (05/12/22) Hgb:??10.9 gm/dL??Low (05/12/22) Hct:??32.9 %??Low (05/12/22) MCV: 89 fL (05/12/22) MCH: 29.5 pg (05/12/22) MCHC: 33.1 gm/dL (05/12/22) RDW:??14.8 %??High (05/12/22) Platelet: 254 x10(3)/mcL (05/12/22) MPV: 9.7 fL (05/12/22) NRBC %: 0 % (05/12/22) Neutrophil Auto: 58.4 % (05/12/22) Lymphocyte Auto: 29.1 % (05/12/22) Monocyte Auto: 5.7 % (05/12/22) Eosinophil Auto:??5.3 %??High (05/12/22) Basophil Auto: 0.9 % (05/12/22) Immature Granulocyte Auto: 1 % (05/12/22) Neutrophil Absolute: 3.1 x10(3)/mcL (05/12/22) Lymphocyte Absolute: 1.54 x10(3)/mcL (05/12/22) Monocyte Absolute: 0.3 x10(3)/mcL (05/12/22) Eosinophil Absolute: 0.28 x10(3)/mcL (05/12/22) Basophil Absolute: 0.05 x10(3)/mcL (05/12/22) Imm Gran Absolute: 0.03 /mcL (05/12/22) Chemistry Glucose Level: 94 mg/dL (05/12/22) Group B Strep Urinalysis UA Color: Yellow Iris (01/21/22) UA Appear: Clear Irisa (01/21/22) UA Spec Grav: 1.02 (01/21/22) UA Leuk Est: Neg Iris (01/21/22) UA Nitrite: Neg Iris (01/21/22) UA pH: 7.5 (01/21/22) UA Protein: Neg Iris (01/21/22) UA Glucose: Neg Iris (01/21/22) UA Ketones: Neg Iris (01/21/22) UA Urobilinogen: 1.0 (01/21/22) UA Bili: Neg Iris (01/21/22) UA Blood: 3+ Urisys Abnormal (01/21/22) Microscopic Indicated: Yes (01/21/22) Bacteria: Not Present (01/21/22) Casts: Not Present (01/21/22) Red Blood Cells: 16-30 Abnormal (01/21/22) UA Epithelial Cells: Not Present (01/21/22) White Blood Cells: <1 (01/21/22) Culture Indicated: Not Indicated (01/21/22) Urine Drug Screen Amphetamines Screen: Not Detected MedTox (04/17/22) Barbiturates Screen: Not Detected MedTox (04/17/22) Benzodiazepines Screen: Not Detected Med[facility]ox (04/17/22) T-Cannabinol Screen: Not Detected [facility]ox (04/17/22) Cocaine Screen: Not Detected MedTox (04/17/22) Opiate Screen: Detected MedTox (04/17/22) Phencyclidine Screen: Not Detected Med[facility]ox (04/17/22) Tricyclics Screen: Not Detected Med[facility]ox (04/17/22) Methadone Screen: Not Detected MedTox (04/17/22) Methamphetamines Screen: Not Detected Med[facility]ox (04/17/22) Oxycodone Screen: Not Detected [facility]ox (04/17/22) Buprenorphine Screen: Not Detected Med[facility]ox (04/17/22) Urine Dipstick POC Glucose Urine Dipstick: Negative (09/07/21) Ketones Urine Dipstick: Negative (09/07/21) Protein Urine Dipstick: 1+ (30 mg/dl) (09/07/21) ABORh ABO/Rh Interpretation: A POS (05/13/22) ABORh Second Check: A POS (12/07/21) ABSCR-G Interpretation: Negative ABSC (05/13/22) Molecular Chlamydia trachomatis DNA PCR: Negative CT (12/06/21) Neisseria gonorrhoeae DNA PCR: Negative NG (12/06/21) Serology Vitals & Measurements T:??36.8?C??(Oral)?? HR:??89??(Peripheral)?? RR:??18?? BP:??106/54?? SpO2:??98%?? WT:??68.5??kg??(Estimated)?? WT:??68.5??kg??(Dosing)?? Physical Exam GENERAL: This is a well-groomed, well-nourished female, in no acute distress. She is alert and oriented x3. PSYCH: Appropriate with full affect. LUNGS: Normal respiratory rate and effort CARDIOVASCULAR: Regular rate GI: Abdomen is soft, nontender NEURO: Sensation is grossly intact. EXTREMITIES: Warm, well perfused. Nontender without edema. Distal pulses are intact. : Normal external female genitalia. Vagina is pink, moist, rugated. ??There is a small amount of old blood present, the cervical os appears closed, the vagina was inspected??thoroughly and there were no??visible lacerations. Assessment/Plan Vaginal bleeding ??Small amount of vaginal bleeding. ??Unclear etiology.?? Vaginal bleeding could be from residual??enterovaginal fistula repair which was completed less than 2 weeks ago, or this could be??from the cervix with menstrual bleeding. ??At this time, it is mild and no additional treatment is recommended. ?? The patient adamantly denies placing anything inside the vagina, causing the lacerations. ?? We discussed the absolute importance of not having anything in the vagina including tampons??until she is cleared by a tooth cutter contact wheel and her??colorectal surgeon. ??She states understanding though doesnot like using pads as they cause an allergic reaction. ?? We discussed the importance of having??outpatient??gynecology visit and she will look into getting a visit??with a tooth cutter contact wheel at [place] or [place]. ? 60 minutes were spent on the unit caring the patient, more than half of it in [id number] discussion with the patient reviewing the findings [...] her satisfaction.? Problem List/Past Medical History Ongoing Anemia Anxiety Asthma Depression Endometriosis MRSA Vaginal bleeding Historical No qualifying data Medications Inpatient Benadryl, 25 mg= 0.5 mL, IV Push, Once Dilaudid, 1 mg= 1 mL, IV Push, Once Zofran, 4 mg= 2 mL, IV Push, Once Home Albuterol (Eqv-ProAir HFA) 90 mcg/inh inhalation aerosol, 2 puff(s), Inhaled, q4hr, PRN Extra Strength Tylenol Menstrual, 2 tab(s), Oral, q6hr, PRN gabapentin 300 mg oral capsule, 300 mg= 1 cap(s), Oral, qHS hydrOXYzine hydrochloride 25 mg oral tablet, 25 mg= 1 tab(s), Oral, q6hr, PRN montelukast 10 mg oral tablet, 10 mg= 1 tab(s), Oral, qHS norethindrone 5 mg oral tablet, 5 mg= 1 tab(s), Oral, BID, take at onset of bleeding omeprazole 20 mg oral delayed release capsule, 20 mg= 1 cap(s), Oral, qHS ondansetron 4 mg oral tablet, disintegrating, 4 mg= 1 tab(s), Oral, q8hr, PRN sertraline 100 mg oral tablet, 100 mg= 1 tab(s), Oral, qHS tiZANidine 4 mg oral tablet, 4 mg= 1 tab(s), Oral, qHS, PRN tranexamic acid 650 mg oral tablet, 1300 mg= 2 tab(s), Oral, TID traZODone 100 mg oral tablet, 100 mg= 1 tab(s), Oral, qHS Allergies Compazine??(Tetanus, Vomiting, Tongue swelling, Shaking all over, Hives) Haldol??(Anaphylactic reaction) droperidol??(Vomiting, Tongue swelling, Shaking all over, Tetanus, Hives) penicillin??(Anaphylactic reaction) Latex??(Hives) Toradol??(Hives) Social History Alcohol - Denies Alcohol Use Home/Environment Feels unsafe at home: No. Substance Abuse Current, Marijuana, 1-2 times per month Tobacco - Denies Tobacco Use Tobacco Use: Denies. Results Inpatient Labs Chemistry BUN:??6 mg/dL??Low Calcium Level: 9 mg/dL Chloride: 104 mmol/L Creatinine: 0.7 mg/dL Glucose Level: 94 mg/dL Magnesium: 1.9 mg/dL Potassium Level: 3.5 mmol/L Sodium Level: 139 mmol/L LFT Albumin Level: 3.7 gm/dL Alk Phos: 113 unit/L ALT: 43 IU/L AST:??74 IU/L??High Bili Total: 0.39 mg/dL Total Protein: 7.4 gm/dL Hematology Hct:??32.9 %??Low Hgb:??10.9 gm/dL??Low Platelet: 254 x10(3)/mcL RBC:??3.7 x10(6)/mcL??Low WBC: 5.3 x10(3)/mcL Electronically Signed By: Sudhir Barahona MD Date and Time Signed: 05/13/22 13:[address] Abdomen and Pelvis W contrast IV * Event Display: CT Abdomen and pelvis with contrast- 741 Authored Date: [id number] PROCEDURE: CT ABD PEL W 85131 CLINICAL INDICATION: vomiting, recent abd surgery, bleeding COMPARISON: 11/17/2021 TECHNIQUE: Multiple contiguous axial CT images of the abdomen and pelvis were obtained following the uneventful administration of intravenous contrast. Coronal and sagittal reformatted images were obtained. Dose reduction techniques including automated exposure control were utilized. Contrast (LOCM) 350-399 100 Cubic Centimeters Intravenous 05/13/2022 02:28 AM DLP DOSE: 450.94 (mGy.cm) FINDINGS: Lung bases: Normal. Liver: Normal. Gallbladder and biliary tree: Normal with no calcified gallstones or biliary ductal dilation. Pancreas: Normal. Spleen: Mild nonspecific splenomegaly. Adrenal glands: Normal. Kidneys and ureters: Normal. Bowel: Status post partial colectomy with a left lower quadrant colostomy. No evidence of bowel obstruction. No focal wall thickening, inflammatory change, or other significant abnormality. Urinary bladder: Normal. Lymph nodes: No enlarged retroperitoneal,mesenteric, or pelvic lymph nodes. Peritoneum: Normal. Retroperitoneum: Normal. Vascular structures: Normal. Abdominal wall: Normal. Bones: Normal. IMPRESSION: 1. Status post partial colectomy with a left lower quadrant colostomy. 2. Mild nonspecific splenomegaly. Electronically Signed by: Cuauhtemoc Barahona MD 05/13/2022 6:32 AM Care Team Care Team Personnel Name: No Local PCP No Local PCP, Member Role: Primary Care Physician Name: ALEC MATT MD Position: Physician - ED Member Role: Attending Physician Address: Address: [address] [place] [address] Name: ZACHARY CASTANEDA MD Position: Physician - ED Member Role: ED Physician Address: Address: [address] [place] [address] [address] Name: Sen Barba, Position: ED Scribe Member Role: ED Scribe Name: Eduarda Hernandez, RN Position: ED Nurse/PRESS BREAKER Member Role: ED Nurse Care Team Related Persons Name: BO PAYAN Address: Home [address] [place], [place] [id number] Name: BO PAYAN Address: Home [address] [place] [id number] Name: BO BOOKER Address: Home
--- OUTSIDE RECORDS SUMMARY | 2022-11-20 17:50 | XMS_ITS | Continuity of Care Document ---
Author Name Unknown Organization [facility] Address [address] [place] [id number] Care Team Providers Care [employer] Name Role Phone NO PCPDR Primary Care Physician Unavailab le Encounter [facility] Acct Nbr Pool [id number] Date(s): 12/01/21 - 12/01/[address] [address] Encounter Diagnosis Left against medical advice(Discharge Diagnosis) - 12/01/21 Anemia(Discharge Diagnosis) - 12/01/21 Abnormal vaginal bleeding(Discharge Diagnosis) - 12/01/21 Discharge Disposition: 07 Left AMA or discontinued care Attending Physician: KIMBER STORY MD Admitting Physician: KIMBER STORY MD Allergies, Adverse Reactions, Alerts Substance Reaction Severity Status penicillin Active droperidol Active Haldol Active Compazine Active NSAIDs Active Medications doxycycline hyclate 100 mg oral tablet 100 MG = 1 TAB, PO, BID Start Date: 12/01/21 Status: Ordered gabapentin 300 mg oral capsule 300 MG = 1 CAP, PO, Bedtime Start Date: 12/01/21 Status: Ordered metronidazole 500 mg oral tablet 500 MG = 1 TAB, PO, [id number] Start Date: 12/01/21 Status: Ordered montelukast 10 mg oral tablet 10 MG = 1 TAB, PO, QPM Start Date: 12/01/21 Status: Ordered norethindrone 5 mg oral tablet 10 MG = 2 TAB, PO, QDay Start Date: 12/01/21 Status: Ordered sertraline 100 mg oral tablet 100 MG = 1 TAB, PO, QDay Start Date: 12/01/21 Status: Ordered tizanidine 4 mg oral tablet 4 MG = 1 TAB, PO, [id number], PRN Muscle spasms Start Date: 12/01/21 Status: Ordered trazodone 100 mg oral tablet 100 MG = 1 TAB, PO, Bedtime Start Date: 12/01/21 Status: Ordered Problem List Diagnosis Diagnosis Type Effective Dates Health Status Cl inical Service Informant Left against medical advice Discharge Diagnosis 12/01/21 Non-Specified Anemia Discharge Diagnosis 12/01/21 Non-Specified Abnormal vaginal bleeding Discharge Diagnosis 12/01/21 Non-Specified Procedures Procedure Date Related Diagnosis Body Site Status Collection of venous blood b y venipuncture 12/01/21 Completed Collection of venous blood b y venipuncture 12/01/21 Completed Collection of venous blood b y venipuncture 12/01/21 Completed Collection of venous blood b y venipuncture 12/01/21 Completed Collection of venous blood b y venipuncture 12/01/21 Completed Results Radiology Reports * Exam Date Time Procedure Performing Provider Status 12/01/21 3:04 AM US Pelvis Robson Alonzo ( Reported) Notes: (US Pelvis) Reason For Exam: Pain US READ CLINICAL HISTORY: Pain STUDY: Transabdominal pelvic ultrasound. Patient declined transvaginal survey. FINDINGS: Uterus: size 6.7 x 2.9 x 5.4; Grossly normal contours Cervix: Limited transabdominal survey without gross abnormality Endometrium: thickness 0.9 cm; Grossly normal contours Ovaries: Right: Not seen Left: 2.0 x 1.8 x 1.8 cm. Flow is documented on this limited survey. Cul-de-sac: No fluid IMPRESSION: Transabdominal exam without definitive findings to explain bleeding This report was partially generated using voice recognition software, which may result in incorrectwords, misspellings, and punctuation errors that were not noted during review before finalization. [facility] Code: NH1 - Concur with preliminary report issue by [facility] Radiology Services FINAL REPORT Dictated By: MAGDIEL TADEO MD Electronically Signed By: MAGDIEL TADEO MD Signed Date/Time: 12/01/21 08:07:04 Vital Signs Most recent to oldest [Reference Range]: 1 Temperature Oral [35.8-37.3 DegC] 36.7 D egC (12/01/21 9:16 AM) Peripheral Pulse Rate [60-100 bpm] 78 bp m (12/01/21 5:10 AM) Respiratory Rate [14-20 br/min] 20 br/mi n (12/01/21 9:16 AM) Blood Pressure [90-140/60-90 mmHg] 105/7 8mmHg (12/01/21 9:16 AM) Dosing Weight 79.5 KG (12/01/21 1:11 AM) Social History Social History Type Response Smoking Status Never smoker Sex Female Physician Emergency department Note * CHRISSY DE MD: PERFORM, MODIFY, SIGN, VERIFY Event Display: ED Note-Physician Authored Date: [id number] Patient: EDUARDO PAYAN Age: 21 years Sex: FEMALE : 2000 Author: CHRISSY DE MD Attachments: None History of Present Illness HPI: Patient signed out to me pending SCHOOL SERVICES OFFICER recommendations for possible vaginal bleeding. Went toevaluate patient at 858 she is not in the room possibly in the bathroom will come back to reevaluate. I have checked her repeat hemoglobin which appears not to have dropped at this time. 9:12 states her bleeding has slowed down at this time patient does not wish to wait in the hospitalany longer and states she will follow-up with her own OB and is requesting to leave immediately I highly recommended her to stay as she is at risk of bleeding endorgan damage and worsening outcomes she is alert and oriented with capacity and wishes to leave at this time be signed out AGAINST M EDICAL ADVICE and understands she can return back to the emergency room at any time for further evaluation she states she will follow-up with her own SCHOOL SERVICES OFFICER. dx vaginal bleeding, left against mediocl advice, anemia. Electronically Signed by: CHRISSY DE MD 12/01/2021 09:12 AM * KIMBER STORY MD: PERFORM, MODIFY, MODIFY, SIGN, VERIFY, MODIFY Event Display: ED Note-Physician Authored Date: [id number] Patient: EDUARDO PAYAN Age: 21 years Sex: FEMALE : 2000 Author: KIMBER STORY MD Attachments: None Basic Information Time seen: 12/01/21 01:27:24. Pt Identification: ID bracelet was verified for correct name and .. Mode of Arrival: Ambulatory. PCP: No qualifying data available. . History of Present Illness Chief Complaint: Nausea, vomiting, vaginal bleeding. HPI: 21-year-old with history of moderate to severe endometriosis, history of ovarian torsion, presents with pelvic pain and vaginal bleeding that started over the last 24 hours. Patient was seen at [facility] in October for lower abdominal pain. There was a concern that she could potentially have ovarian torsion and therefore underwent a transvaginal ultrasound. This seemed to have caused vaginal lacerations that caused a significant mount of bleeding and anemia. The patient had to goto the OR on at least 2 occasions for laceration repairs. She also received at least 3 units of blood due to significant bleeding throughout her hospital course. She states that she was doing relatively well for the last 10 days but then began to have bleeding yesterday that was quite severe. Shestates that she was going through at least 3 pads and 40 minutes well waiting to be seen in the emergency department. She endorses lightheadedness but denies nausea or vomiting, shortness of breath, c hest pain, upper abdominal pain, urinary symptoms, diarrhea, black or bloody stools, or lower extremity swelling. She is not sexually active.. Review of Systems All other systems are negative except as noted in the HPI. Past Medical/ Family/ Social History Medical history: Negative. Surgical history: Vaginal laceration repair. Social history: Tobacco history Never smoker, Alcohol history Yes, Drugs: Denies drug use. Medications: Norethindrone. Allergies: penicillin, droperidol, Haldol, Compazine, NSAIDs. Old Records: Reviewed. Nursing Notes: Nursing notes reviewed. Physical Examination Vital signs Temperature Oral 37 DegC Peripheral Pulse Rate 105 bpm HI Respiratory Rate 22 br/min HI Systolic Blood Pressure 96 mmHg Diastolic Blood Pressure 51 mmHg LOW Oxygen Saturation 98 % Oxygen Mode Room Air Dosing Weight 79.5 KG Height/Length Measured 167 cm . Exam:GENERAL: Patient is awake and alert, in no acute distress. HEENT: Normocephalic, atraumatic, lids and lashes are normal, no conjunctival injection, no conjunctival pallor, no scleral icterus. Posterior oropharynx is clear, mucous membranes are moist. CARDIOVASCULAR: No obvious murmurs auscultated. There are 2+ radial pulses bilaterally. Peripheral - no lower extremity edema. No unilateral edema. RESPIRATORY: Clear to auscultation bilaterally with normal chest wall expansion. No retractions, noaccessory muscle use There are no wheezes, Rales, rhonchi. ABDOMINAL: Lower abdominal pain. No pulsatile aortic mass, no organomegaly. MUSCULOSKELETAL: Arms and legs are nontender. No joint edema erythema NEURO: Cranial nerves 2 - 12 are intact, speech is normal. Patient is moving upper and lower extremities equally. No evidence of truncal ataxia. PSYCH: Affect normal SKIN: Warm, dry with normal Refill. There are no noted rashes or lesions. RECTAL: GENITOURINARY: (Kimber Jeffers RN): Normal external genitalia with a small amount of blood in the introitus. Medical Decision Making Results All Laboratory Results 12/01/2021 5:10 EDT WBC 6.5 x10 3 /uL RBC 3.41 x10 6 /uL LOW HGB 8.4 g/dl LOW HCT 26.9 % LOW MCV 78.9 fL LOW MCH 24.6 pg LOW MCHC 31.2 g/dl LOW RDW- SD 41.7 fL MPV 12.0 fL HI PLT 231 x10 3 /uL Neut 67.3 % ANC 4.4 x10 3 /uL Lymph 22.4 % ALC 1.5 x10 3 /uL [place] 7.7 % Eos 1.4 % Baso 0.9 % nRBC 0.0 % Immature Granulocytes 0.3 % Immature Grans Abs 0.0 x10 3 /uL 12/01/2021 2:10 EDT Adenovirus PCR NOT DETECTED Coronavirus HKU1 NOT DETECTED Coronavirus NL63 NOT DETECTED Coronavirus 229E NOT DETECTED Coronavirus OC43 NOT DETECTED Human Metapneumovirus NOT DETECTED Human Rhinovirus/Enterovirus NOT DETECTED Influenza A NOT DETECTED Influenza B NOT DETECTED Parainfluenza 1 NOT DETECTED Parainfluenza 2 NOT DETECTED Parainfluenza 3 NOT DETECTED Parainfluenza 4 NOT DETECTED Respiratory Syncytial Virus NOT DETECTED Bordetella parapertussis NOT DETECTED Bordetella pertussis NOT DETECTED Chlamydophila pneumoniae NOT DETECTED SARS-CoV-2 NOT DETECTED Mycoplasma pneumoniae NOT DETECTED 12/01/2021 2:01 EDT Glucose-Blood 94 mg/dL Blood Urea Nitrogen 12.6 mg/dL Creatinine-Blood 0.79 mg/dL eGFR Result >60.00 mL/min/1.73m?? eGFR Result Non- >60.00 mL/min/1.73m?? Sodium Blood 136 mmol/L Potassium-Blood 3.5 mmol/L Chloride Blood 102 mmol/L Total CO2 Blood 19 mmol/L LOW Anion Gap 15 mEq/L Calcium Blood 9.4 mg/dL AST 19 U/L Alkaline Phosphatase 55 U/L Protein Total-Blood 7.6 g/dl Albumin-Blood 4.7 g/dl Bilirubin Total 0.46 mg/dL ALT 13 U/L WBC 8.0 x10 3 /uL RBC 3.93 x10 6 /uL HGB 9.7 g/dl LOW HCT 31.0 % LOW MCV 78.9 fL LOW MCH 24.7 pg LOW MCHC 31.3 g/dl LOW RDW- SD 41.5 fL MPV 11.3 fL HI PLT 269 x10 3 /uL Neut 73.5 % ANC 5.9 x10 3 /uL Lymph 17.8 % LOW ALC 1.4 x10 3 /uL [place] 6.3 % Eos 1.3 % Baso 0.8 % nRBC 0.0 % Immature Granulocytes 0.3 % Immature Grans Abs 0.0 x10 3 /uL Screen-Serum Negative ABO/RH A POS Antibody Screen Negative Armband Number [id number] Imaging I have individually visualized, interpreted and agree with the following: Pelvic ultrasound: Unremarkable uterus and left ovary. Right ovary was not visualized. Reassessment 21-year-old presents with heavy vaginal bleeding. HPI per chart, vital signs stable, PE per chart. Patient the patient's history at the outside hospital, there is concern that she is having additional bleeding perhaps due to a new laceration or dehiscence of her previous lacerations. I have a low suspicion for other intra abdominal pathology. She underwent labs remarkable for an initial hemoglobin of 9.7 to 8.4 on repeat, though the patient did receive 1 L of fluids. Patient required 2 doses of 0.5 mg of IV Dilaudid as well as Zofran for pain and nausea. I spoke with SCHOOL SERVICES OFFICER who agreed to come to see the patient at bedside. The patient was signed out tothe oncoming physician pending SCHOOL SERVICES OFFICER evaluation and disposition. Consults: SCHOOL SERVICES OFFICER Diagnosis Vaginal bleeding Disclaimer This note was partially generated using voice recognition system, and there may be some incorrect words, spellings, and punctuation that were not noted in checking the note before saving. Electronically Signed by: KIMBER STORY MD 12/01/2021 07:48 AM US Pelvis * MAGDIEL TADEO MD: PERFORM, VERIFY, VERIFY Event Display: US Read Authored Date: [id number] CLINICAL HISTORY: Pain STUDY: Transabdominal pelvic ultrasound. Patient declined transvaginal survey. FINDINGS: Uterus: size 6.7 x 2.9 x 5.4; Grossly normal contours Cervix: Limited transabdominal survey without gross abnormality Endometrium: thickness 0.9 cm; Grossly normal contours Ovaries: Right: Not seen Left: 2.0 x 1.8 x 1.8 cm. Flow is documented on this limited survey. Cul-de-sac: No fluid IMPRESSION: Transabdominal exam without definitive findings to explain bleeding This report was partially generated using voice recognition software, which may result in incorrectwords, misspellings, and punctuation errors that were not noted during review before finalization. [facility] Code: NH1 - Concur with preliminary report issue by [facility] Radiology Services FINAL REPORT Dictated By: MAGDIEL TADEO MD Electronically Signed By: MAGDIEL TADEO MD Signed Date/Time: 12/01/21 08:07:04 Care Team Care Team Personnel Name: NO DR NATHALIE Position: Physician Member Role: Primary Care Physician Care Team Related Persons Name: BO PAYAN
--- OUTSIDE RECORDS SUMMARY | 2022-11-20 17:50 | XMS_ITS | Continuity of Care Document ---
Author Name Unknown Organization [facility] Address Unknown Care Team Providers [employer] [employer] Name Role Phone No Local PCP, No Local PCP Primary Care Physicia n Unavailable Encounter Date(s): 01/19/22 - 01/20/22 [facility] [address] [place] [address]- Discharge Disposition: Home or Self Care Attending Physician: CHRISTOFER BOBO MD Admitting Physician: CHRISTOFER BOBO MD Allergies, Adverse Reactions, Alerts Substance Reaction Severity Status penicillin Active droperidol Active Latex Active Haldol Active Compazine Muscle cramps Active Toradol Hives Active Medications Extra Strength Tylenol Menstrual 0 Refill(s) Start Date: 03/30/21 Status: Ordered gabapentin 400 mg, Oral, Daily Start Date: 08/08/21 Status: Ordered hydrOXYzine 0 Refill(s) Start Date: 03/30/21 Status: Ordered montelukast 0 Refill(s) Start Date: 03/30/21 Status: Ordered norethindrone 5 mg oral tablet 10 mg = 2 tab(s), Oral, Daily, Please take 5 mg, 4 times daily for 2 days followed by 5 mg, 3 timesa day for 1 day, and then 5 mg twice a day until the bleeding stops, # 60 tab(s), 0 Refill(s), Pharmacy: [facility] #[id number], 167, cm, 12/07/21... Start Date: 12/08/21 Status: Ordered norethindrone 5 mg oral tablet 0 Refill(s) Start Date: 05/18/19 Status: Ordered ondansetron 8 mg oral tablet, disintegrating 8 mg = 1 tab(s), Oral, q8hr, 1 tab every 8 hours as needed for nausea, X 3 day(s), # 10 tab(s), 0 Refill(s), Pharmacy: [facility] #[id number], 167, cm, 01/19/22 19:46:00 EDT, Height/Length Dosing, 77, kg, 01/19/22 19:46:00 EDT, Weight Dosing Start Date: 01/20/22 Stop Date: 01/23/22 Status: Ordered sertraline 0 Refill(s) Start Date: 03/30/21 Status: Ordered tiZANidine 0 Refill(s) Start Date: 03/30/21 Status: Ordered traZODone 0 Refill(s) Start Date: 03/30/21 Status: Ordered Mental Status 01/19/22 Orientation Assessment Oriented x 4 01/19/22 Level of Consciousness Alert Problem List Condition [...] List Name Date .Estimated Glomerular Filtration Rate 01/19/22 Auto Differential 01/19/22 CBC Auto Diff reflex Manual Diff 01/19/22 Comprehensive Metabolic Panel 01/19/22 HCG Quantitative 01/19/22 Most recent to oldest [Reference Range]: 1 AGAP 8 *NA* (01/19/22 11:20 PM) A/G Ratio 1.1 *NA* (01/19/22 11:20 PM) BUN/Creat Ratio 16 *NA* (01/19/22 11:20 PM) RBC [4.00-5.20 x10(6)/mcL] 3.37 x10(6)/m cL *LOW* (01/19/22 11:20 PM) RDW [11.5-14.5 %] 18.4 % *HI* (01/19/22 11:20 PM) Sodium Level [136-145 mmol/L] 139 mmol/L (01/19/22 11:20 PM) Total Protein [6.4-8.2 gm/dL] 7.1 gm/dL (01/19/22 PM) AST [15-37 IU/L] 33 IU/L (01/19/22 PM) Bili Total [0.20-1.00 mg/dL] 0.32 mg/dL (01/19/22 PM) CO2 [21-32 mmol/L] 26 mmol/L (01/19/22 PM) Albumin Level [3.4-5.0 gm/dL] 3.7 gm/dL (01/19/22 PM) Alk Phos [48-129 unit/L] 51 unit/L (01/19/22 PM) ALT [13-61 IU/L] 27 IU/L (01/19/22 PM) Hct [36.0-46.0 %] 26.8 % *LOW* (01/19/22 PM) Hgb [12.0-15.0 gm/dL] 8.2 gm/dL *LOW* (01/19/22 PM) MCH [26.0-34.0 pg] 24.3 pg *LOW* (01/19/22: PM) MCHC [31.0-37.0 gm/dL] 30.6 gm/dL *LOW* (01/19/22: PM) MCV [80-100 fL] 80 fL (01/19/22 PM) MPV [9.2-12.7 fL] 11.9 fL (01/19/22 PM) Glucose Level [74-106 mg/dL] 91 mg/dL (01/19/22 PM) Platelet [150-350 x10(3)/mcL] 252 x10(3) /mcL (01/19/22 PM) Potassium Level [3.5-5.1 mmol/L] 3.5 mmo l/L (01/19/22 PM) WBC [4.5-11.0 x10(3)/mcL] 6.2 x10(3)/mcL (01/19/22 PM) BUN [7-18 mg/dL] 13 mg/dL (01/19/22 11:20 PM) Calcium Level [8.5-10.1 mg/dL] 8.7 mg/dL (01/19/22 11:20 PM) Chloride [98-107 mmol/L] 109 mmol/L *HI* (01/19/22 11:20 PM) hCG Qnt [1-3 mIU/mL] <1 mIU/mL (01/19/22 11:20 PM) eGFR AA >60 mL/min/1.73 m2 *NA* (01/19/22 11:20 PM) eGFR BRUNO >60 mL/min/1.73 m2 *NA* (01/19/22 11:20 PM) Neutrophil Absolute [1.50-7.80 x10(3)/mc L] 3.70 x10(3)/mcL (01/19/22 11:20 PM) Lymphocyte Absolute [1.10-4.80 x10(3)/mc L] 1.99 x10(3)/mcL (01/19/22 11:20 PM) Monocyte Absolute 0.41 x10(3)/mcL *NA* (01/19/22 11:20 PM) Eosinophil Absolute 0.08 x10(3)/mcL *NA* (01/19/22 11:20 PM) Basophil Absolute 0.04 x10(3)/mcL *NA* (01/19/22 11:20 PM) Imm Gran Absolute 0.02 /mcL *NA* (01/19/22 11:20 PM) NRBC % [0.0-0.2 %] 0.0 % (01/19/22 11:20 PM) Osmol Calculated 277 mOsm/kg *NA* (01/19/22 11:20 PM) Eosinophil Auto [1.0-4.0 %] 1.3 % (01/19/22 11:20 PM) Immature Granulocyte Auto 0 % *NA* (01/19/22 11:20 PM) Lymphocyte Auto [24.0-44.0 %] 31.9 % (01/19/22 11:20 PM) Monocyte Auto [2.0-11.0 %] 6.6 % (01/19/22 11:20 PM) Neutrophil Auto [31.0-76.0 %] 59.3 % (01/19/22 11:20 PM) Basophil Auto [0.0-2.0 %] 0.6 % (01/19/22 11:20 PM) Creatinine [0.6-1.3 mg/dL] 0.8 mg/dL (01/19/22 11:20 PM) Vital Signs Most recent to oldest [Reference Range]: 1 2 Temperature Oral [35.8-37.3 DegC] 37.0 D egC (01/19/22 7:46 PM) Peripheral Pulse Rate [60-100 bpm] 97 bp m (01/20/22 4:19 AM) 75 bpm (01/19/22 7:46 PM) Respiratory Rate [14-20 br/min] 19 br/mi n (01/20/22 4:19 AM) 18 br/min (01/19/22 7:46 PM) Blood Pressure 101/52mmHg (01/20/22 4:19 AM) 123/62mmHg (01/19/22 7:46 PM) Social History Social History Type Response Tobacco Tobacco Use: Denies. Sex Female Hospital Discharge Instructions Patient Education 01/20/2022 04:01:[address] [facility] ED AMA Discharge Instruction (Custom) Rejection of Medical Treatment, Against Medical Advice Medical examination, treatment, or testing has been recommended for me. I have decided to reject further treatment or medical evaluation, and will leave the facility. I am rejecting medical care of my own choice, and contrary to the instructions and wishes of Dr. Bobo , the treating physician. I understand that permanent harm, including debilitating injury, irreversible disability or even , can occur from failing to follow the recommendations of the physician. I have had an opportunity to ask questions and I fully understand my medical condition. I have beenadvised that I may return at any time to continue medical evaluation or treatment. Because I am rejecting recommended medical care, I agree to absolve and release the physician and the medical facility from any and all liabilities for damages arising from any current medical condition. I accept all risk associated with my medical condition, both known and unknown. I assume all responsibility for this action. I agree that I will make no claim of any nature against this medical fa cility or the physician under any circumstances. I understand also that there is no punitive component to me leaving I can (and should) return immediately should I change my mind or experience worsening of my condition, or new symptoms of concern. We are concerned about you! Please return immediately should you rethink your decision or should you feel worse! Name of Patient Signature of Patient or Guardian of Same Date 01/20/2022 04:01:05 Menorrhagia Menorrhagia Menorrhagia is a form of abnormal uterine bleeding in which menstrual periods are heavy or last longer than normal. With menorrhagia, the periods may cause enough blood loss and cramping that a womanbecomes unable to take part in her usual activities. What are the causes? Common causes of this condition include: ??? Polyps or fibroids. These are noncancerous growths in the uterus. ??? An imbalance of the hormones estrogen and progesterone. ??? Anovulation, which occurs when one of the ovaries does not release an egg during one or more months. ??? A problem with the thyroid gland (hypothyroidism). ??? Side effects of having an intrauterine device (IUD). ??? Side effects of some medicines, such as NSAIDs or blood thinners. ??? A bleeding disorder that stops the blood from clotting normally. In some cases, the cause of this condition is not known. What increases the risk? You are more likely to develop this condition if you have cancer of the uterus. What are the signs or symptoms? Symptoms of this condition include: ??? Routinely having to change your pad or tampon every 1???2 hours because it is soaked. ??? Needing to use pads and tampons at the same time because of heavy bleeding. ??? Needing to wake up to change your pads or tampons during the night. ??? Passing blood clots larger than 1 inch (2.5 cm) in size. ??? Having bleeding that lasts for more than 7 days. ??? Having symptoms of low iron levels (anemia), such as tiredness (fatigue) or shortness of breath. How is this diagnosed? This condition may be diagnosed based on: ??? A physical exam. ??? Your symptoms and menstrual history. ??? Tests, such as: ??? Blood tests to check if you are or if you have hormonal changes, a bleeding or thyroiddisorder, anemia, or other problems. ??? Pap test to check for cancerous changes, infections, or inflammation. ??? Endometrial biopsy. This test involves removing a tissue sample from the lining of the uterus (endometrium) to be examined under a microscope. ??? Pelvic ultrasound. This test uses sound waves to create images of your uterus, ovaries, and vagina. The images can show if you have fibroids or other growths. ??? Hysteroscopy. For this test, a thin, flexible tube with a light on the end (hysteroscope) is used to look inside your uterus. How is this treated? Treatment may not be needed for this condition. If it is needed, the best treatment for you will depend on: ??? Whether you need to prevent . ??? Your desire to have children in the future. ??? The cause and severity of your bleeding. ??? Your personal preference. Medicine Medicines are the first step in treatment. You may be treated with: ??? Hormonal control methods. These treatments reduce bleeding during your menstrual period. They include: ??? control pills. ??? Skin patch. ??? Vaginal ring. ??? Shots (injections) that you get every 3 months. ??? Hormonal IUD. ??? Implants that go under the skin. ??? Medicines that thicken the blood and slow bleeding. ??? Medicines that reduce swelling, such as ibuprofen. ??? Medicines that contain an artificial (synthetic) hormone called progestin. ??? Medicines that make the ovaries stop working for a short time. ??? Iron supplements to treat anemia. Surgery If medicines do not work, surgery may be done. Surgical options may include: ? ? Dilation and curettage (D&C). In this procedure, your health care provider opens the lowestpart of the uterus (cervix) and then scrapes or suctions tissue from the endometrium. This reduces menstrual bleeding. ??? Operative hysteroscopy. In this procedure, a hysteroscope is used to view your uterus and help remove polyps that may be causing heavy periods. ??? Endometrial ablation. This is when various techniques are used to permanently destroy your entire endometrium. After endometrial ablation, most women have little or no menstrual flow. This procedure reduces your ability to become . ??? Endometrial resection. In this procedure, an electrosurgical wire loop is used to remove the endometrium. This procedure reduces your ability to become . ??? Hysterectomy. This is surgical removal of your uterus. This is a permanent procedure that stopsmenstrual periods. is not possible after a hysterectomy. Follow these instructions at home: Medicines ??? Take dnhw-emd-hxudxns and prescription medicines only as told by your health care provider. This includes iron pills. ??? Do not change or switch medicines without asking your health care provider. ??? Do not take aspirin or medicines that contain aspirin 1 week before or during your menstrual period. Aspirin may make bleeding worse. Managing constipation Your iron pills may cause constipation. If you are taking prescription iron supplements, you may need to take these actions to prevent or treat constipation: ??? Drink enough fluid to keep your urine pale yellow. ??? Take [id number] or prescription medicines. ??? Eat foods that are high in fiber, such as beans, whole grains, and fresh fruits and vegetables. ??? Limit foods that are high in fat and processed sugars, such as fried or sweet foods. General instructions ??? If you need to change your sanitary pad or tampon more than once every 2 hours, limit your activity until the bleeding stops. ??? Eat well-balanced meals, including foods that are high in iron. Foods that have a lot of iron include leafy green vegetables, meat, liver, eggs, and whole- grain breads and cereals. ??? Do not try to lose weight until the abnormal bleeding has stopped and your blood iron level is back to normal. If you need to lose weight, work with your health care provider to lose weight safely. ??? Keep all follow-up visits. This is important. Contact a health care provider if: ??? You soak through a pad or tampon every 1 or 2 hours, and this happens every time you have a period. ??? You need to use pads and tampons at the same time because you are bleeding so much. ??? You have nausea, vomiting, diarrhea, or other problems related to medicines you are taking. Get help right away if: ??? You soak through more than a pad or tampon in 1 hour. ??? You pass clots bigger than 1 inch (2.5 cm) wide. ??? You feel short of breath. ??? You feel like your heart is beating too fast. ??? You feel dizzy or you faint. ??? You feel very weak or tired. Summary ??? Menorrhagia is a form of abnormal uterine bleeding in which menstrual periods are heavy or lastlonger than normal. ??? Treatment may not be needed for this condition. If it is needed, it may include medicines or procedures. ??? Take ygws-lml-nstccbc and prescription medicines only as told by your health care provider. This includes iron pills. ??? Get help right away if you have heavy bleeding that soaks through more than a pad or tampon in 1 hour, you pass large clots, or you feel dizzy, short of breath, or very weak or tired. This information is not intended to replace advice given to you by your health care provider. Make sure you discuss any questions you have with your health care provider. Document Revised: 01/12/2021 Document Reviewed: 01/12/2021 [employer] Patient Education ?? 2021 [employer]. 01/20/2022 04:01:05 Abnormal Uterine Bleeding Abnormal Uterine Bleeding Abnormal [...] these instructions at home: Medicines ??? Take xscy-qub-ibzkxcx and prescription medicines only as told by [...] keep your urine pale yellow. ??? Take [id number]-[id number] or prescription medicines. ??? Eat foods that [...] provider. Document Revised: 01/06/2021 Document Reviewed: 03/03/2020 [employer] Patient Education ?? 2021 [employer] Care Team Care Team Personnel Name: No Local PCP No Local PCP, Med Service: NO LOCAL PCP Member Role: Primary Care Physician Care Team Related Persons Name: BO PAYAN Address: [address] [phone] Name: BO PAYAN Address: [address] [phone] Name: BO BOOKER Address: [place]
--- OUTSIDE RECORDS SUMMARY | 2022-11-20 17:50 | XMS_ITS | Continuity of Care Document ---
Author Name Unknown Address [address] [place] [address] Phone [facility] Address [address] [place] [address] Phone Care Team Providers Care Lei Seller Name Role Phone PCP, of Choice Primary Care Provider Unavailabl e Chief Complaint and Reason for Visit Chief Complaint LEFT FLANK PAIN ORAL INFECTION RECTAL BLEEDING abdominal pain OVARIAN CYST Allergies, Adverse Reactions, Alerts Allergen Type Severity [...] Observa tion Never smoked tobacco (finding) January 29, 2021 10:28pm Observation Status Observation Response Date of Response Alcohol Use Yes January 29, 2021 10:28pm alcohol intake frequency a few times a month [facility] Alcohol type hard liquor January 29, 2021 10:28pm Substance/Street Drug Use Yes [facility] 2020 10:28pm substance use type marijuana January 10:28pm Smoking Status Never smoker January 29, 2021 10:28pm Additional Data Assigned Sex Female Problems Active [...] ued 300 MG PO TWICE A DAY [facility] 2020 4:03pm [facility] 2020 9:07pm Tramadol Discontin ued 50 MG PO Q8H 10 [facility] 2020 4:44pm [facility] 2020 9:06pm Gabapentin Active 200 MG PO DAILY January 02, 2021 5:12pm Hydrocodone- Acetaminophe n Discontin ued 1 TAB PO Q6H January 02, 2021 6:26pm January 07, 2021 5:04pm Ondansetron Active 4 MG PO Q6H 2020 6:26pm Famotidine-C a Carb-Mag Hydrox (Pepcid Complete) 10-800-165 mg tablet,chewa ble Discontin ued 1 TAB PO DAILY January 08, 2021 1:50am [facility] 2020 9:07pm Dicyclomine Discontin ued 10 MG [...] 2020 11:38pm 7.41 1000/mm3 4.8-10.8 MAIN LAB [address] [place] [address]31 White Blood Count January 02, 2021 4:44pm 6.81 1000/mm3 4.8-10.8 MAIN LAB [address] [address] White Blood Count January 07, 2021 5:35pm 5.33 1000/mm3 4.8-10.8 MAIN LAB [address] 7[address] White Blood Count January 29, 2021 9:57pm 5.85 1000/mm3 4.8-10.8 MAIN LAB [address] [address] Red Blood Count October 14, 2020 11:38pm 4.44 M/mm3 4.20-5.40 MAIN LAB [address] [place] [address] 13284 Red Blood Count January 02, 2021 4:44pm 4.67 M/mm3 4.20-5.40 MAIN LAB [address] 10761 Red Blood Count January 07, 2021 5:35pm 4.85 M/mm3 4.20-5.40 MAIN LAB [address] [address]75 Red Blood Count January 29, 2021 9:57pm 4.53 M/mm3 4.20-5.40 MAIN LAB [address] 95901 Hemoglobin October 14, 2020 11:38pm 9.2 g/dL 12.0-16.0 MAIN LAB [address] [place] [address] 77088 Hemoglobin January 02, 2021 4:44pm 10.4 g/dL 12.0-16.0 MAIN LAB [address] [place] [address] Hemoglobin January 07, 2021 5:35pm 10.8 g/dL 12.0-16.0 MAIN LAB [facility] [address] [facility] [address] Hemoglobin January 29, 2021 9:57pm 10.4 g/dL 12.0-16.0 MAIN LAB [facility] [address] [facility] [address] Hematocrit October 14, 2020 11:38pm 30.6 % 37-47 MAIN LAB [address] [place] [address]15 Hematocrit January 02, 2021 4:44pm 35.2 % 37-47 MAIN LAB [address] [address] Hematocrit January 07, 2021 5:35pm 36.3 % 37-47 MAIN LAB [address] [address]655 Hematocrit January 29, 2021 9:57pm 33.7 % 37-47 MAIN LAB [address] [address] Mean Corpuscular Volume October 14, 2020 11:38pm 68.9 fL 81.0-99.0 MAIN LAB [address] [place] [address] 00288 Mean Corpuscular Volume January 02, 2021 4:44pm 75.4 fL 81.0-99.0 MAIN LAB [address] 30139 Mean Corpuscular Volume January 07, 2021 5:35pm 74.8 fL 81.0-99.0 MAIN LAB [address] 57117 Mean Corpuscular Volume January 29, 2021 9:57pm 74.4 fL 81.0-99.0 MAIN LAB [address] 48347 Mean Corpuscular Hemoglobin October 14, 2020 11:38pm 20.7 pg 27-31 MAIN LAB [address] [place] [address] 68614 Mean Corpuscular Hemoglobin January 02, 2021 4:44pm 22.3 pg 27-31 MAIN LAB [address] 78104 Mean Corpuscular Hemoglobin January 07, 2021 5:35pm 22.3 pg 27- MAIN LAB [address] 34419 Mean Corpuscular Hemoglobin January 29, 2021 9:57pm 23.0 pg 27-31 MAIN LAB [address] 75336 Mean Corpuscular Hemoglobin Concent October 14, 2020 11:38pm 30.1 g/dL 33-37 MAIN LAB [address] [place] [address] 14000 Mean Corpuscular Hemoglobin Concent January 02, 2021 4:44pm 29.5 g/dL 33-37 MAIN LAB [address] 47888 Mean Corpuscular Hemoglobin Concent January 07, 2021 5:35pm 29.8 g/dL 33-37 MAIN LAB [address] 51155 Mean Corpuscular Hemoglobin Concent January 29, 2021 9:57pm 30.9 g/dL 33-37 MAIN LAB [address] 02347 Red Cell Distribution Width October 14, 2020 11:38pm 16.8 % 11.5-14.5 MAIN LAB [address] [place] [address] 72331 Red Cell Distribution Width January 02, 2021 4:44pm 19.4 % 11.5-14.5 MAIN LAB [address] [address] Red Cell Distribution Width January 07, 2021 5:35pm 18.6 % 11.5-14.5 MAIN LAB [address] [address]24 Red Cell Distribution Width January 29, 2021 9:57pm 17.6 % 11.5-14.5 MAIN LAB [address] 85576 Platelet Count October 14, 2020 11:38pm 250 1000/mm3 140-440 MAIN LAB [address] [place] [address] 09382 Platelet Count January 02, 2021 4:44pm 216 1000/mm3 140-440 MAIN LAB [address] 02011 Platelet Count January 07, 2021 5:35pm 240 1000/mm3 140-440 MAIN LAB [address] 29395 Platelet Count January 29, 2021 9:57pm 248 1000/mm3 140-440 MAIN LAB [address] 50983 Mean Platelet Volume October 14, 2020 11:38pm 10.6 fL 7.4-10.4 MAIN LAB [address] [place] [address] 79435 Mean Platelet Volume January 02, 2021 4:44pm 10.7 fL 7.4-10.4 MAIN LAB [address] 40032 Mean Platelet Volume January 07, 2021 5:35pm 11.3 fL 7.4-10.4 MAIN LAB [address] [address] Mean Platelet Volume January 29, 2021 9:57pm 10.6 fL 7.4-10.4 MAIN LAB [address] 81185 Neutrophils (%) (Auto) October 14, 2020 11:38pm 60.3 % 40.0-72.0 MAIN LAB [address] [place] [address] 02554 Neutrophils (%) (Auto) January 02, 2021 4:44pm 64.3 % 40.0-72.0 [facility] [address] [address] Neutrophils (%) (Auto) January 07, 2021 5:35pm 51.4 % 40.0-72.0 [facility] [address] 75290 Neutrophils (%) (Auto) January 29, 2021 9:57pm 57.7 % 40.0-72.0 [facility] [address] 40704 Lymphocytes (%) (Auto) October 14, 2020 11:38pm 29.0 % 17-45 MAIN LAB [address] [place] [address] 0[address]59 Lymphocytes (%) (Auto) January 02, 2021 4:44pm 26.3 % 17-45 [facility] [address] 9[address] Lymphocytes (%) (Auto) January 07, 2021 5:35pm 37.7 % 17-45 MAIN LAB [address] [address] Lymphocytes (%) (Auto) January 29, 2021 9:57pm 32.6 % 17-45 MAIN LAB [address] [address] Monocytes (%) (Auto) October 14, 2020 11:38pm 8.2 % 3-11 MAIN LAB [address] [place] [address] 29765 Monocytes (%) (Auto) January 02, 2021 4:44pm 6.2 % 3-11 [facility] [address] 66678 Monocytes (%) (Auto) January 07, 2021 5:35pm 6.0 % 3-11 [facility] [address] 91070 Monocytes (%) (Auto) January 29, 2021 9:57pm 6.5 % 3-11 MAIN LAB [address] 01424 Eosinophils (%) (Auto) October 14, 2020 11:38pm 1.1 % 0-3 MAIN LAB [address] [place] [address] 25914 Eosinophils (%) (Auto) January 02, 2021 4:44pm 2.2 % 0-3 [facility] [address] 8[address] Eosinophils (%) (Auto) January 07, 2021 5:35pm 3.2 % 0-3 [facility] [address] 07447 Eosinophils (%) (Auto) January 29, 2021 9:57pm 1.7 % 0-3 [facility] [address] 01467 Basophils (%) (Auto) October 14, 2020 11:38pm 1.3 % 0-1 MAIN LAB [address] [place] [address] 22575 Basophils (%) (Auto) January 02, 2021 4:44pm 0.9 % 0-1 MAIN LAB [address] 26890 Basophils (%) (Auto) January 07, 2021 5:35pm 1.5 % 0-1 MAIN LAB [address] 64284 Basophils (%) (Auto) January 29, 2021 9:57pm 1.2 % 0-1 MAIN LAB [address] 47397 Immature Granulocyte % (Auto) October 14, 2020 11:38pm 0.1 % 0-1 MAIN LAB [address] [place] [address] 32116 Immature Granulocyte % (Auto) January 02, 2021 4:44pm 0.1 % 0-1 MAIN LAB [address] 73976 Immature Granulocyte % (Auto) January 07, 2021 5:35pm 0.2 % 0-1 MAIN LAB [address] 92971 Immature Granulocyte % (Auto) January 29, 2021 9:57pm 0.3 % 0-1 MAIN LAB [address] [address] Neutrophils # (Auto) October 14, 2020 11:38pm 4.46 1000/mm3 1.4-6.5 MAIN LAB [address] [place] [address] 91895 Neutrophils # (Auto) January 02, 2021 4:44pm 4.38 1000/mm3 1.4-6.5 MAIN LAB [address] 8[address] Neutrophils # (Auto) January 07, 2021 5:35pm 2.74 1000/mm3 1.4-6.5 MAIN LAB [address] 7[address] Neutrophils # (Auto) January 29, 2021 9:57pm 3.37 1000/mm3 1.4-6.5 MAIN LAB [address] [address] Lymphocytes # (Auto) October 14, 2020 11:38pm 2.15 1000/mm3 1.2-3.4 MAIN LAB [address] [place] [address] 76867 Lymphocytes # (Auto) January 02, 2021 4:44pm 1.79 1000/mm3 1.2-3.4 MAIN LAB [address] 14594 Lymphocytes # (Auto) January 07, 2021 5:35pm 2.01 1000/mm3 1.2-3.4 MAIN LAB [address] [address] Lymphocytes # (Auto) January 29, 2021 9:57pm 1.91 1000/mm3 1.2-3.4 MAIN LAB [address] [address] Monocytes # (Auto) October 14, 2020 11:38pm 0.61 1000/mm3 0.0-0.8 MAIN LAB [address] [place] [address] 97269 Monocytes # (Auto) January 02, 2021 4:44pm 0.42 1000/mm3 0.0-0.8 MAIN LAB [address] [address] Monocytes # (Auto) January 07, 2021 5:35pm 0.32 1000/mm3 0.0-0.8 MAIN LAB [address] 75235 Monocytes # (Auto) January 29, 2021 9:57pm 0.38 1000/mm3 0.0-0.8 MAIN LAB [address] 75668 Eosinophils # (Auto) October 14, 2020 11:38pm 0.08 1000/mm3 0.0-0.7 MAIN LAB [address] [place] [address] 51262 Eosinophils # (Auto) January 02, 2021 4:44pm 0.15 1000/mm3 0.0-0.7 MAIN LAB [address] 8[address]78 Eosinophils # (Auto) January 07, 2021 5:35pm 0.17 1000/mm3 0.0-0.7 MAIN LAB [address] 12176 Eosinophils # (Auto) January 29, 2021 9:57pm 0.10 1000/mm3 0.0-0.7 MAIN LAB [address] 9[address]31 Basophils # (Auto) October 14, 2020 11:38pm 0.10 1000/mm3 0.0-0.1 MAIN LAB [address] [place] [address] 24642 Basophils # (Auto) January 02, 2021 4:44pm 0.06 1000/mm3 0.0-0.1 MAIN LAB [address] 6[address]24 Basophils # (Auto) January 07, 2021 5:35pm 0.08 1000/mm3 0.0-0.1 MAIN LAB [address] 91594 Basophils # (Auto) January 29, 2021 9:57pm 0.07 1000/mm3 0.0-0.1 MAIN LAB [address] 84506 Absolute Immature Granulocyte (auto October 14, 2020 11:38pm 0.0 0-1 MAIN LAB [address] [place] [address] 88826 Absolute Immature Granulocyte (auto January 02, 2021 4:44pm 0.0 0-1 MAIN LAB [address] [address]75 Absolute Immature Granulocyte (auto January 07, 2021 5:35pm 0.0 0-1 MAIN LAB [address] 71112 Absolute Immature Granulocyte (auto January 29, 2021 9:57pm 0.0 0-1 MAIN LAB [address] 00308 Differential Method October 14, 2020 11:38pm Automated MAIN LAB [address] [place] [address] 82622 Differential Method January 02, 2021 4:44pm Automated MAIN LAB [address] 47986 Differential Method January 07, 2021 5:35pm Automated MAIN LAB [address] [address]01 Differential Method January 29, 2021 9:57pm Automated MAIN LAB [address] [address] Differential Pathologist's Review October 14, 2020 11:38pm See comment No comparison data on file at [facility]. Microcytic hypochromic anemia, consistent with iron deficiency.Brice martin reviewed by pathologist for quality control inspector.Hair Mello MD10/15/20 MAIN LAB [address] [place] [address] 39831 Prothrombin Time October 14, 2020 11:38pm 10.8 SECONDS 9.6-11.2 MAIN [facility] [address] [place] [address] 75243 Prothromb Time International Ratio October 14, 2020 11:38pm 1.1 2.0-3.0 INR value valid only on patients on stabilized warfarin therapy. The recommended therapeutic range for warfarin (Coumadin) for most clinical indications is an INR of 2.0-3.0. An INR of 2.5-3.5 is recommended for patients with mechanical heart valves. MAIN LAB [address] [place] [address] 47099 Activated Partial Thromboplast Time October 14, 2020 11:38pm 26.1 SECONDS 21.6-36.0 A target of 1.5-2.5 times the mean of the normal reference range is considered therapeutic. NOTE: APTT must NOT be used to monitor LMWH therapy. Contact [facility] Pharm[facility] for monitoring information. MAIN LAB [address] [place] [address] 11774 Urine Color January 02, 2021 6:04pm Lauren MAIN LAB [address] [address] Urine Clarity January 02, 2021 6:04pm very cloudy MAIN LAB [address] [address] Urine pH January 02, 2021 6:04pm 6.0 MAIN LAB [address] 8[address]10 Urine Specific [place] January 02, 2021 6:04pm 1.015 MAIN LAB [address] 16458 Urine Protein January 02, 2021 6:04pm 100 (2+) mg/dL NEGATIVE MAIN LAB [address] [address]89 Urine Glucose (UA) January 02, 2021 6:04pm Normal mg/dL NORMAL MAIN LAB [address] 96143 Urine Ketones January 02, 2021 6:04pm Negative NEGATIVE MAIN LAB [address] 9[address]17 Urine Nitrite January 02, 2021 6:04pm Negative Negative MAIN LAB [address] 03003 Urine Bilirubin January 02, 2021 6:04pm Negative mg/dL NEGATIVE [facility] [address] [address] Urine Urobilinogen January 02, 2021 6:04pm Normal mg/dL NORMAL MAIN LAB [address] 79923 Urine Leukocyte Esterase January 02, 2021 6:04pm Moderate (2+) WBC/uL NEGATIVE MAIN LAB [address] 88434 Urine Blood January 02, 2021 6:04pm Large (3+) JOEL/uL NEGATIVE MAIN LAB [address] 76217 Urine RBC October 14, 2020 11:45pm 10-20 /hpf MAIN LAB [address] [place] [address] 85693 Urine RBC January 02, 2021 6:04pm Tntc /hpf MAIN LAB [address] 88096 Urine WBC October 14, 2020 11:45pm 0-2 /hpf MAIN LAB [address] [place] [address] 42269 Urine WBC January 02, 2021 6:04pm 3-5 /hpf MAIN LAB [address] 43132 Urine Squamous Epithelial Cells January 02, 2021 6:04pm 1+ /hpf MAIN LAB [address] 84812 Urine Bacteria October 14, 2020 11:45pm 1+ /hpf NONE SEEN MAIN LAB [address] [place] [address] 51888 Urine Bacteria January 02, 2021 6:04pm None seen /hpf NONE SEEN MAIN LAB [address] 26910 Urine Mucus October 14, 2020 11:45pm Present MAIN LAB [address] [place] [address] 89360 Urine Culture Done October 14, 2020 11:45pm No CULTURE NOT INDICATED. MAIN LAB [address] [place] [address] 68381 Urine Culture Done January 02, 2021 6:04pm Yes URINE SPECIMEN CULTURED MAIN LAB [address] [address] Urine Test January 02, 2021 6:04pm Negative NEGATIVE MAIN LAB [address] 39282 Sodium Level October 14, 2020 11:38pm 138 mmol/L 137-145 MAIN LAB [address] [facility] [address] Sodium Level January 02, 2021 4:44pm 141 mmol/L 137-145 MAIN LAB [facility] [address] [facility] [address] Sodium Level January 07, 2021 5:35pm 140 mmol/L 137-145 MAIN LAB [facility] [address] [facility] [address] Sodium Level January 29, 2021 9:57pm 137 mmol/L 137-145 MAIN LAB [facility] [address] [facility] [address] Potassium Level October 14, 2020 11:38pm 3.8 mmol/L 3.6-5.0 MAIN LAB [address] [place] [address] 84203 Potassium Level January 02, 2021 4:44pm 3.9 mmol/L 3.6-5.0 MAIN LAB [address] 85108 Potassium Level January 07, 2021 5:35pm 3.7 mmol/L 3.6-5.0 MAIN LAB [address] 55162 Potassium Level January 29, 2021 9:57pm 3.5 mmol/L 3.6-5.0 MAIN LAB [address] 67687 Chloride Level October 14, 2020 11:38pm 100 mmol/L 98-107 MAIN LAB [address] [place] [address] 77309 Chloride Level January 02, 2021 4:44pm 104 mmol/L 98-107 MAIN LAB [address] 69895 Chloride Level January 07, 2021 5:35pm 103 mmol/L 98-107 MAIN LAB [address] 42037 Chloride Level January 29, 2021 9:57pm 99 mmol/L 98-107 MAIN LAB [address] 36616 Carbon Dioxide Level October 14, 2020 11:38pm 25 mmol/L 22-30 MAIN LAB [address] [place] [address] 81722 Carbon Dioxide Level January 02, 2021 4:44pm 26 mmol/L 22-30 MAIN LAB [facility] [address] [facility] [address] Carbon Dioxide Level January 07, 2021 5:35pm 27 mmol/L MAIN LAB [facility] [address] [facility] [address]377 Carbon Dioxide Level January 29, 2021 9:57pm 27 mmol/L MAIN LAB [facility] [address] [facility] [address] Anion Gap October 14, 2020 11:38pm 13 7-16 MAIN LAB [address] [facility] [address]38 Anion Gap January 02, 2021 4:44pm 11 7-16 MAIN LAB [address] 51947 Anion Gap January 07, 2021 5:35pm 10 7- MAIN LAB [address] 81934 Anion Gap January 29, 2021 9:57pm 11 7- MAIN LAB [address] 04385 Blood Urea Nitrogen October 14, 2020 11:38pm 15 mg/dL 7- MAIN LAB [address] [place] [address] 81699 Blood Urea Nitrogen January 02, 2021 4:44pm 11 mg/dL - MAIN LAB [address] 24468 Blood Urea Nitrogen January 07, 2021 5:35pm 13 mg/dL - MAIN LAB [address] 06808 Blood Urea Nitrogen January 29, 2021 9:57pm 13 mg/dL - MAIN LAB [address] 23980 Creatinine October 14, 2020 11:38pm 0.76 mg/dL 0.52-1.04 MAIN LAB [address] [place] [address] 30435 Creatinine January 02, 2021 4:44pm 0.76 mg/dL 0.52-1.04 MAIN LAB [address] 39917 Creatinine January 07, 2021 5:35pm 0.79 mg/dL 0.52-1.04 MAIN LAB [address] 74663 Creatinine January 29, 2021 9:57pm 0.84 mg/dL 0.52-1.04 MAIN LAB [facility] [address] [facility] [address] Glomerular Filtration Rate Calc October 14, 2020 11:38pm > 60 mL/min >60.0 MAIN LAB [address] [facility] [address]155 Glomerular Filtration Rate Calc January 02, 2021 4:44pm > 60 mL/min >60.0 MAIN LAB [facility] [address] [facility] [address]68 Glomerular Filtration Rate Calc January 07, 2021 5:35pm > 60 mL/min >60.0 MAIN LAB [facility] [address] [facility] [address]275 Glomerular Filtration Rate Calc January 29, 2021 9:57pm > 60 mL/min >60.0 MAIN LAB [facility] [address] [facility] [address] Glucose Level October 14, 2020 11:38pm 88 mg/dL 70-100 MAIN LAB [address] [place] [address] 57899 Glucose Level January 02, 2021 4:44pm 88 mg/dL 70-100 MAIN LAB [address] [address]55 Glucose Level January 07, 2021 5:35pm 105 mg/dL 70-100 MAIN LAB [facility] [address] [facility] [address] Glucose Level January 29, 2021 9:57pm 92 mg/dL 70-100 MAIN LAB [facility] [address] [facility] [address] Calcium Level October 14, 2020 11:38pm 9.3 mg/dL 8.4-10.2 MAIN LAB [address] [place] [address] 54383 Calcium Level January 02, 2021 4:44pm 9.3 mg/dL 8.4-10.2 MAIN LAB [facility] [address] [facility] [address] Calcium Level January 07, 2021 5:35pm 9.6 mg/dL 8.4-10.2 MAIN LAB [facility] [address] [facility] [address] Calcium Level January 29, 2021 9:57pm 9.8 mg/dL 8.4-10.2 MAIN LAB [address] 6[address] Calcium Adjusted for Albumin October 14, 2020 11:38pm 9.2 mg/dL 8.4-10.2 MAIN LAB [address] [place] [address] 30092 Calcium Adjusted for Albumin January 02, 2021 4:44pm 8.8 mg/dL 8.4-10.2 MAIN LAB [address] 05168 Calcium Adjusted for Albumin January 07, 2021 5:35pm 9.3 mg/dL 8.4-10.2 MAIN LAB [address] [address]37 Iron Level October 14, 2020 11:38pm 36 ug/dL 37-170 MAIN LAB [address] [place] [address] 34450 Total Bilirubin October 14, 2020 11:38pm 0.3 mg/dL 0.2-1.3 MAIN LAB [address] [place] [address] 15982 Total Bilirubin January 02, 2021 4:44pm 0.4 mg/dL 0.2-1.3 MAIN LAB [address] 04652 Total Bilirubin January 07, 2021 5:35pm 0.4 mg/dL 0.2-1.3 MAIN LAB [address] 92383 Aspartate Amino Transf (AST/SGOT) October 14, 2020 11:38pm 55 U/L 14-36 MAIN LAB [address] [place] [address] 05132 Aspartate Amino Transf (AST/SGOT) January 02, 2021 4:44pm 39 U/L 14-36 MAIN LAB [address] 49652 Aspartate Amino Transf (AST/SGOT) January 07, 2021 5:35pm 38 U/L 14-36 MAIN LAB [address] 10483 Alanine Aminotransferase (ALT/SGPT) October 14, 2020 11:38pm 41 U/L <35 As of 09/13/19, the Reference Range for ALT/SGPT for adult patients has been updated. The Reference Range for ALT/SGPT has not been established for patients <18 years of age. MAIN LAB [address] [place] [address] 16135 Alanine Aminotransferase (ALT/SGPT) January 02, 2021 4:44pm 21 U/L <35 As of 09/13/19, the Reference Range for ALT/SGPT for adult patients has been updated. The Reference Range for ALT/SGPT has not been established for patients <18 years of age. MAIN LAB [address] [address]486 Alanine Aminotransferase (ALT/SGPT) January 07, 2021 5:35pm 23 U/L <35 As of 09/13/19, the Reference Range for ALT/SGPT for adult patients has been updated. The Reference Range for ALT/SGPT has not been established for patients <18 years of age. MAIN LAB [address] 137[address] Total Protein October 14, 2020 11:38pm 7.4 g/dL 6.3-8.2 MAIN LAB [address] [place] [address] 55297 Total Protein January 02, 2021 4:44pm 7.9 g/dL 6.3-8.2 MAIN LAB [address] 34047 Total Protein January 07, 2021 5:35pm 7.7 g/dL 6.3-8.2 MAIN LAB [address] 63791 Albumin October 14, 2020 11:38pm 4.4 g/dL 3.5-5.0 MAIN LAB [address] [place] [address] 26549 Albumin January 02, 2021 4:44pm 4.9 g/dL 3.5-5.0 MAIN LAB [address] 56752 Albumin January 07, 2021 5:35pm 4.7 g/dL 3.5-5.0 MAIN LAB [address] 73317 Alkaline Phosphatase October 14, 2020 11:38pm 55 U/L 38-126 MAIN LAB [address] [place] [address] 64080 Alkaline Phosphatase January 02, 2021 4:44pm 58 U/L 38-126 MAIN LAB [address] 96564 Alkaline Phosphatase January 07, 2021 5:35pm 58 U/L 38-126 MAIN LAB [facility] [address] [facility] [address]69 Lipase October 14, 2020 11:38pm 43 U/L 23-300 MAIN LAB [address] [facility] [address]448 Ferritin October 14, 2020 11:38pm 4.43 ng/mL 10-291 The results of this assay can be falsely decreased in patients who consume Biotin. MAIN LAB [address] [place] [address]654 Microbiology Results Procedure Source Result Collection Date/Time Result Date/Time Result Comment Performing Site Urine Culture Ur,Clean Catch January 02, 2021 6:40pm January 04, 2021 8:36am [facility] [address] [address] Diagnostic Imaging Reports Report Dictated Date/Time Dictated [...] 21, 2021 3:08pm Respiratory rate 18 /min 12-24 January 212020 3:08pm Oxygen saturation by Pulse oximetry 97 % 95-100 January 21, 2021 3:08pm BP Systolic 118 mm[Hg] 100-140 January 21, 2021 3:08pm BP Diastolic 84 mm[Hg] 50-85 January 21, 2021 3:08pm Weight 95.25 kg January 29, 2021 8:58pm Body Temperature 98 [degF] 97.6-99.6 January 132020 8:58pm Heart Rate 67 /min 60-100 January 29, 2021 11:00pm Respiratory rate 17 /min 12-24 January 132020 11:00pm Oxygen saturation by Pulse oximetry 97 % 95-100 January 29, 2021 11:00pm BP Systolic 93 mm[Hg] 100-140 January 29, 2021 11:00pm BP Diastolic 64 mm[Hg] 50-85 January 29, 2021 11:00pm Advance Directives Advance Directive Response Recorded Date/ [...] 2020 11:22pm Pt has a Power of Panel Laminator? No October 14, 2020 11:22pm Do we have a copy on file here at [facility]? No October 14, 2020 11:22pm Insurance Providers Guarantor EDUARDO PAYAN Address [address] [place] [address] Contact Info. Home Phone: Payer Policy Id Coverage Id Subscriber's Name Subscriber Id Effective Date Expiration Date [facility] [id number] EDUARDO PAYAN [id number] 000 SELF PAY Self N/A Encounters Encounter [...] 2021 6:55pm null Departed Emergency [facility] January 21, 2021 2:24pm January 21, 2021 4:51pm null Departed Emergency [facility] January 29, 2021 8:55pm January 29, 2021 11:08pm null Functional Status Observation Response Date Recorded Living Situation Home January 29, 2021 11:03pm With Significant Other January 29, 2021 11:03pm Mental Status Observation Response Date Recorded Comprehension [...] Vomiting, Adult ( DC) Ovarian Cyst (DC) Hospital Discharge Instructions Additional Instructions You were seen in the ED for abdominal pain. Your lab work did not show any acute changes. Your CT scan from [facility] showed a left hemorrhagic ovarian cyst which is likely the cause of symptoms. You can treat the pain with ibuprofen 400 mg every 6 hours as needed. You can alternate with tylenol 500 mg every 6 hours if needed. You can take the ONDANSETRON as needed for nausea and vomiting. Follow up closely with your [employer] Agent to discuss your symptoms and work up so far. Return to the ED for worsening pain, heavy bleeding, dizziness or passing out, or any new or concerning symptoms.
--- OUTSIDE RECORDS SUMMARY | 2022-11-20 17:50 | XMS_ITS | Continuity of Care Document ---
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 Name Role Phone RICARDO RUTH Primary Care Physician Encounter Date(s): 05/28/21 - 05/28/[address] [id number] Encounter Diagnosis Simple ovarian cyst(Discharge Diagnosis) - 05/28/21 Abdominal pain, acute(Discharge Diagnosis) - 05/28/21 History of endometriosis(Discharge Diagnosis) - 05/28/21 Discharge Disposition: Home or Self Care Attending Physician: TAMIE BURR MD Admitting Physician: MONSE BROUSSARD MD Allergies, Adverse Reactions, Alerts Substance Reaction Severity Status penicillin Active Latex Active Haldol Active Compazine Muscle cramps Active Toradol Hives Active Medications Bentyl 20 mg oral tablet 20 mg = 1 tab(s), Oral, QID, # 28 tab(s), 0 Refill(s), Pharmacy: [id number], 165.1, cm, 03/30/21 18:41:00 EST, Height/Length Dosing, 90.7, kg, 03/30/21 18:41:00 EST, Weight Dosing Start Date: 03/30/21 Stop Date: 04/06/21 Status: Ordered Bentyl 20 mg oral tablet 20 mg = 1 tab(s), Oral, QID, # 28 tab(s), 0 Refill(s), [id number], 163, cm, 02/03/21 15:44:00 EDT, Height/Length Dosing, 95.3, kg, 02/03/21 15:44:00 EDT, Weight Dosing Start Date: 02/03/21 Stop Date: 02/10/21 Status: Ordered CeleBREX 200 mg, Oral, BID Start Date: 05/25/19 Status: Ordered Extra Strength Tylenol Menstrual 0 Refill(s) Start Date: 03/30/21 Status: Ordered hydrOXYzine 0 Refill(s) Start Date: 03/30/21 Status: Ordered ibuprofen 0 Refill(s) Start Date: 03/30/21 Status: Ordered Lupron Depot 3.75 mg/month intramuscular injection, extended release 3.75 mg, IM, [id number], # 1 ea, 0 Refill(s) Start Date: 04/05/19 Status: Ordered Mirena 0 Refill(s) Start Date: 07/16/19 Status: Ordered montelukast 0 Refill(s) Start Date: 03/30/21 Status: Ordered norethindrone 5 mg oral tablet 0 Refill(s) Start Date: 05/18/19 Status: Ordered ondansetron 4 mg oral tablet, disintegrating 4 mg = 1 tab(s), Oral, q6hr, # 10 tab(s), 0 Refill(s), [id number] 162, cm, 09/01/19 10:41:00 EDT, Height/Length Dosing, 73, kg, 09/01/19 10:41:00 EDT, Weight Dosing Start Date: 09/01/19 Stop Date: 09/04/19 Status: Ordered oxyCODONE 5 mg oral capsule 5 mg = 1 cap(s), Oral, q6hr, PRN PRN: for pain, # 10 cap(s), 0 Refill(s), Pharmacy: [facility], 162.6, cm, 04/11/21 15:05:00 EST, Height/Length Dosing, 90, kg, 05/28/21 13:39:00 EST, Weight Dosing Start Date: 05/28/21 Stop Date: 05/29/21 Status: Ordered Phenergan 25 mg rectal suppository = 1 suppository(ies), ND, q4hr, PRN PRN: as needed for nausea/vomiting, # 12 suppository(ies), 0 Refill(s), Pharmacy: [facility] #[id number], 162, cm, 05/18/19 18:42:47 EST, Height/Length Dosing, 73, kg, 05/18/19 18:42:47 EST, Weight Dosing Start Date: 05/21/19 Status: Ordered sertraline 0 Refill(s) Start Date: 03/30/21 Status: Ordered tiZANidine 0 Refill(s) Start Date: 03/30/21 Status: Ordered traZODone 0 Refill(s) Start Date: 03/30/21 Status: Ordered Zofran 4 mg oral tablet 4 mg = 1 tab(s), Oral, q8hr, PRN PRN: as needed for nausea/vomiting, # 10 tab(s), 0 Refill(s), Pharmacy: [facility], 162.6, cm, 04/11/21 15:05:00 EST, Height/Length Dosing, 90, kg, 05/28/21 13:39:00 EST, Weight Dosing Start Date: 05/28/21 Stop Date: 05/29/21 Status: Ordered Zofran ODT 4 mg oral tablet, disintegrating 4 mg = 1 tab(s), Oral, q8hr, PRN PRN: as needed for nausea/vomiting, # 30 tab(s), 0 Refill(s), Pharmacy: [id number], 163, cm, 07/29/19 11:21:00 EDT, Height/Length Dosing, 68.1, kg, 07/29/19 11:21:00 EDT, Weight Dosing Start Date: 07/29/19 Status: Ordered Mental Status 05/28/21 Orientation Assessment Oriented x 4 Problem List [...] List Name Date .Estimated Glomerular Filtration Rate CBC Auto Diff reflex Manual Diff 05/28/21 Comprehensive Metabolic Panel 05/28/21 HCG Quantitative 05/28/21 Lipase Level 05/28/21 Most recent to oldest [Reference Range]: 1 AGAP 9 *NA* (05/28/21 3:23 PM) A/G Ratio 1.0 *NA* (05/28/21 3:23 PM) BUN/Creat Ratio 10 *NA* (05/28/21 3:23 PM) RBC [4.00-5.20 x10(6)/mcL] 4.59 x10(6)/m cL (05/28/21 3:23 PM) RDW [11.5-14.5 %] 14.9 % *HI* (05/28/21 3:23 PM) Sodium Level [136-145 mmol/L] 140 mmol/L (05/28/21 3:23 PM) Total Protein [6.4-8.2 gm/dL] 7.9 gm/dL (05/28/21 3:23 PM) AST [15-37 IU/L] 36 IU/L (05/28/21 3:23 PM) Bili Total [0.20-1.00 mg/dL] 0.21 mg/dL (05/28/21 3:23 PM) CO2 [21-32 mmol/L] 28 mmol/L (05/28/21 3:23 PM) Albumin Level [3.4-5.0 gm/dL] 4.0 gm/dL (05/28/21 3:23 PM) Alk Phos [48-129 unit/L] 72 unit/L (05/28/21 3:23 PM) ALT [13-61 IU/L] 39 IU/L (05/28/21 3:23 PM) Hct [36.0-46.0 %] 37.3 % (05/28/21 3:23 PM) Hgb [12.0-15.0 gm/dL] 11.6 gm/dL *LOW* (05/28/21 3: PM) Lipase Lvl [73-393 IU/L] 54 IU/L *LOW* (05/28/21 3:23 PM) MCH [26.0-34.0 pg] 25.3 pg *LOW* (05/28/21 3:23 PM) MCHC [31.0-37.0 gm/dL] 31.1 gm/dL (05/28/21 3:23 PM) MCV [80-100 fL] 81 fL (05/28/21 3: PM) MPV [9.2-12.7 fL] 11.4 fL (05/28/21 3: PM) Glucose Level [74-106 mg/dL] 92 mg/dL (05/28/21 3: PM) Platelet [150-350 x10(3)/mcL] 186 x10(3) /mcL (05/28/21 3: PM) Potassium Level [3.5-5.1 mmol/L] 3.6 mmo l/L (05/28/21 3: PM) WBC [4.5-11.0 x10(3)/mcL] 4.6 x10(3)/mcL (05/28/21 3: PM) BUN [7-18 mg/dL] 7 mg/dL (05/28/21 3: PM) Calcium Level [8.5-10.1 mg/dL] 9.2 mg/dL (05/28/21: PM) Chloride [98-107 mmol/L] 107 mmol/L (05/28/21 3: PM) hCG Qnt [1-3 mIU/mL] <1 mIU/mL (05/28/21 3: PM) eGFR AA >60 mL/min/1.73 m2 *NA* (05/28/21 3: PM) eGFR BRUNO >60 mL/min/1.73 m2 *NA* (05/28/21: PM) NRBC % [0.0-0.2 %] 0.0 % (05/28/21 3:23 PM) Osmol Calculated 277 mOsm/kg *NA* (05/28/21 3: PM) Creatinine [0.6-1.3 mg/dL] 0.7 mg/dL (05/28/21 3: PM) Vital Signs Most recent to oldest [Reference Range]: 1 2 3 Temperature Oral [35.8-37.3 DegC] 37.5 DegC *HI* (05/28/21 1:39 PM) Peripheral Pulse Rate [60-100 bpm] 74 bpm (05/28/21 4:46 PM) 66 bpm (05/28/21 4:30 PM) 65 bpm (05/28/21 3:30 PM) Respiratory Rate [14-20 br/min] 20 br/min (05/28/21 1:39 PM) Blood Pressure [90-140/60-90 mmHg] 124/76mmHg (05/28/21 4:30 PM) 105/61mmHg (05/28/21 3:30 PM) Mean Arterial Pressure, Cuff 91 mmHg (05/28/21 4:30 PM) 75 mmHg (05/28/21 3:30 PM) Blood Pressure 137/70mmHg (05/28/21 1:39 PM) Social History Social History Type Response Sex Female Hospital Discharge Instructions Patient Education 05/28/2021 16:33:51 Ovarian Cyst Ovarian Cyst An ovarian cyst is a fluid-filled sac that forms on an ovary. The ovaries are small organs that produce eggs in women. Various types of cysts can form on the ovaries. Some may cause symptoms and require treatment. Most ovarian cysts go away on their own, are not cancerous (are benign), and do not cause problems. Common types of ovarian cysts include: ??? Functional (follicle) cysts. ??? Occur during the menstrual cycle, and usually go away with the next menstrual cycle if you do not get . ??? Usually cause no symptoms. ??? Endometriomas. ??? Are cysts that form from the tissue that lines the uterus (endometrium). ??? Are sometimes called ???chocolate cysts?? because they become filled with blood that turns brown. ??? Can cause pain in the lower abdomen during intercourse and during your period. ??? Cystadenoma cysts. ??? Develop from cells on the outside surface of the ovary. ??? Can get very large and cause lower abdomen pain and pain with intercourse. ??? Can cause severe pain if they twist or break open (rupture). ??? Dermoid cysts. ??? Are sometimes found in both ovaries. ??? May contain different kinds of body tissue, such as skin, teeth, hair, or cartilage. ??? Usually do not cause symptoms unless they get very big. ??? Theca lutein cysts. ??? Occur when too much of a certain hormone (human chorionic gonadotropin) is produced and overstimulates the ovaries to produce an egg. ??? Are most common after having procedures used to assist with the conception of a baby (in vitro fertilization). What are the causes? Ovarian cysts may be caused by: ??? Ovarian hyperstimulation syndrome. This is a condition that can develop from taking fertility medicines. It causes multiple large ovarian cysts to form. ??? Polycystic ovarian syndrome (PCOS). This is a common hormonal disorder that can cause ovarian cysts, as well as problems with your period or fertility. What increases the risk? The following factors may make you more likely to develop ovarian cysts: ??? Being overweight or obese. ??? Taking fertility medicines. ??? Taking certain forms of hormonal control. ??? Smoking. What are the signs or symptoms? Many ovarian cysts do not cause symptoms. If symptoms are present, they may include: ??? Pelvic pain or pressure. ??? Pain in the lower abdomen. ??? Pain during sex. ??? Abdominal swelling. ??? Abnormal menstrual periods. ??? Increasing pain with menstrual periods. How is this diagnosed? These cysts are commonly found during a routine pelvic exam. You may have tests to find out more about the cyst, such as: ??? Ultrasound. ??? X-ray of the pelvis. ??? CT scan. ??? MRI. ??? Blood tests. How is this treated? Many ovarian cysts go away on their own without treatment. Your health care provider may want to check your cyst regularly for 2???3 months to see if it changes. If you are in menopause, it is especially important to have your cyst monitored closely because menopausal women have a higher rate of ovarian cancer. When treatment is needed, it may include: ??? Medicines to help relieve pain. ??? A procedure to drain the cyst (aspiration). ??? Surgery to remove the whole cyst. ??? Hormone treatment or control pills. These methods are sometimes used to help dissolve a cyst. Follow these instructions at home: ??? Take [id number] and prescription medicines only as told by your health care provider. ??? Do not drive or use heavy machinery while taking prescription pain medicine. ??? Get regular pelvic exams and Pap tests as often as told by your health care provider. ??? Return to your normal activities as told by your health care provider. Ask your health care provider what activities are safe for you. ??? Do not use any products that contain nicotine or tobacco, such as cigarettes and e-cigarettes. If you need help quitting, ask your health care provider. ??? Keep all follow-up visits as told by your health care provider. This is important. Contact a health care provider if: ??? Your periods are late, irregular, or painful, or they stop. ??? You have pelvic pain that does not go away. ??? You have pressure on your bladder or trouble emptying your bladder completely. ??? You have pain during sex. ??? You have any of the following in your abdomen: ??? A feeling of fullness. ??? Pressure. ??? Discomfort. ??? Pain that does not go away. ??? Swelling. ??? You feel generally ill. ??? You become constipated. ??? You lose your appetite. ??? You develop severe acne. ??? You start to have more body hair and facial hair. ??? You are gaining weight or losing weight without changing your exercise and eating habits. ??? You think you may be . Get help right away if: ??? You have abdominal pain that is severe or gets worse. ??? You cannot eat or drink without vomiting. ??? You suddenly develop a fever. ??? Your menstrual period is much heavier than usual. This information is not intended to replace advice given to you by your health care provider. Make sure you discuss any questions you have with your health care provider. Document Revised: 07/30/2018 Document Reviewed: 10/02/2016 [employer] Patient Education ?? 2020 [employer]
--- OUTSIDE RECORDS SUMMARY | 2022-11-20 17:50 | XMS_ITS | Continuity of Care Document ---
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 a Anel pouch. There is evidence of wall thickening in the descending colon including at the ostomy, but this segment is relatively nondistended. Surrounding fat is not convincingly inflamed. Remainder of the colon appears normal. The appendix is not identified, but there are no inflammatory changes in the expected region of the appendix, and there is a suture line in the cecum. There is hyperdense material in the duodenum, and similar appearing material in the stomach, likely enteric content. Blood is less likely. Bowel is otherwise unremarkable. There is trace free fluid in the pelvis. There is no free air. No adnexal mass is seen. The urinary bladder is unremarkable. The bones are unremarkable. IMPRESSION: Question of wall thickening in the descending colon including at the ostomy. Localized colitis is apossibility. No definitive acute pathology is seen. FINAL REPORT Dictated By: YAAKOV RODRÍGUEZ MD Electronically Signed By: YAAKOV RODRÍGUEZ MD Signed Date/Time: 06/22/22 04:26:50 Care Team Care Team Personnel Name: NATALIA ZELAYA DR Position: Physician Member Role: Primary Care Physician Name: Giuliano Okeefe RN Position: RN - ED Member Role: RN - Emergency Care Name: JARRED CHERRY Position: Specialty - PA Member Role: Emergency PA Address: [facility] @ [place] [address]- Care Team Related Persons Name: BO PAYAN
--- OUTSIDE RECORDS SUMMARY | 2022-11-20 17:50 | XMS_ITS | Continuity of Care Document ---
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 Name Role Phone RICARDO RUTH Primary Care Physician Encounter Date(s): 03/30/21 - 03/31/21 [facility] [address] [place], [place] [address] Encounter Diagnosis Abdominal pain(Discharge Diagnosis) - 03/30/21 Discharge Disposition: Home or Self Care Attending Physician: JAYJAY CARROLL, Admitting Physician: JAYJAY CARROLL, Allergies, Adverse Reactions, Alerts Substance Reaction Severity Status penicillin Active Latex Active Compazine Muscle cramps Active Toradol Hives Active Assessment and Plan Diagnostic Tests Pending * Urine Culture 03/30/21 Medications Bentyl 20 mg oral tablet 20 mg = 1 tab(s), Oral, QID, # 28 tab(s), 0 Refill(s), Pharmacy: [id number], 165.1, cm, 03/30/21 18:41:00 EST, Height/Length Dosing, 90.7, kg, 03/30/21 18:41:00 EST, Weight Dosing Start Date: 03/30/21 Stop Date: 04/06/21 Status: Ordered Bentyl 20 mg oral tablet 20 mg = 1 tab(s), Oral, QID, # 28 tab(s), 0 Refill(s), Pharmacy: [id number], 163, cm, 02/03/21 15:44:00 EDT, [...] intramuscular injection, extended release 3.75 mg, IM, [id number], # 1 ea, 0 Refill(s) Start Date: 04/05/19 Status: Ordered Macrobid 100 mg oral capsule 100 mg = 1 cap(s), Oral, BID, X 10 day(s), # 20 cap(s), 0 Refill(s), Pharmacy: [facility], 165.1, cm, 03/30/21 18:41:00 EST, Height/Length Dosing, 90.7, kg, 03/30/21 18:41:00 EST, Weight Dosing Start Date: 03/30/21 Stop Date: 04/09/21 Status: Ordered Mirena 0 Refill(s) Start Date: 07/16/19 Status: Ordered montelukast 0 Refill(s) Start Date: 03/30/21 Status: Ordered norethindrone 5 mg oral tablet 0 Refill(s) Start Date: 05/18/19 Status: Ordered ondansetron 4 mg oral tablet, disintegrating 4 mg = 1 tab(s), Oral, q6hr, # 10 tab(s), 0 Refill(s), Pharmacy: [facility] #[id number], 162, cm, 09/01/19 10:41:00 EDT, Height/Length Dosing, 73, kg, 09/01/19 10:41:00 EDT, Weight Dosing Start Date: 09/01/19 Stop Date: 09/04/19 Status: Ordered Phenergan 25 mg rectal suppository = 1 suppository(ies), NV, q4hr, PRN PRN: as needed for nausea/vomiting, # 12 suppository(ies), 0 Refill(s), [id number], 162, cm, 05/18/19 18:42:47 EST, Height/Length Dosing, [...] nausea/vomiting, # 30 tab(s), 0 Refill(s), Pharmacy: [facility] #[id number], 163, cm, 07/29/19 11:21:00 EDT, Height/Length Dosing, 68.1, kg, 07/29/19 11:21:00 EDT, Weight Dosing Start Date: 07/29/19 Status: Ordered Mental Status 03/30/21 Orientation Assessment Oriented x 4 Problem List Condition Effective Dates Status Health Status Inform ant Anxiety(Confirmed) Active Asthma(Confirmed) Active Depression(Confirmed) Active Endometriosis(Confirmed) Active Results Laboratory List Name Date Urinalysis Microscopic Add On Only 03/30 Urinalysis Reflex Microscopi c, Culture if (UA Reflex Microscopic, Culture if Indicated) 03/30/21 .Estimated Glomerular Filtration Rate Auto Differential 03/30/21 CBC Auto Diff reflex Manual Diff 1 Comprehensive Metabolic Panel 03/30/21 Most recent to oldest [Reference Range]: 1 UA Appear Cloudy *NA* (03/30/21 10:54 PM) Bacteria 2+ *ABN* (03/30/21 10:54 PM) UA Bili Negative *NA* (03/30/21 10:54 PM) UA Blood 3+ *ABN* (03/30/21 10:54 PM) UA Color [place] *ABN* (03/30/21 10:54 PM) UA Glucose Negative *NA* (03/30/21 10:54 PM) UA Ketones Negative *NA* (03/30/21 10:54 PM) UA Leuk Est 2+ *ABN* (03/30/21 10:54 PM) UA Nitrite Negative *NA* (03/30/21 10:54 PM) UA Protein 1+ *ABN* (03/30/21 10:54 PM) Red Blood Cells >100 *ABN* (03/30/21 10:54 PM) UA Urobilinogen 1.0 1 (03/30/21 10:54 PM) White Blood Cells 4-10 *ABN* (03/30/21 10:54 PM) Microscopic Indicated Yes *NA* (03/30/21 10:54 PM) Casts Not Present *NA* (03/30/21 10:54 PM) AGAP 8 *NA* (03/30/21 9:44 PM) A/G Ratio 1.0 *NA* (03/30/21 9:44 PM) BUN/Creat Ratio 10 *NA* (03/30/21 9:44 PM) RBC [4.00-5.20 x10(6)/mcL] 4.23 x10(6)/m cL (03/30/21 9:44 PM) RDW [11.5-14.5 %] 16.9 % *HI* (03/30/21 9:44 PM) Sodium Level [136-145 mmol/L] 139 mmol/L (03/30/21 9:44 PM) Total Protein [6.4-8.2 gm/dL] 7.7 gm/dL (03/30/21 9:44 PM) AST [15-37 IU/L] 29 IU/L (03/30/21 9:44 PM) Bili Total [0.20-1.00 mg/dL] 0.28 mg/dL (03/30/21 9:44 PM) CO2 [21-32 mmol/L] 26 mmol/L (03/30/21 9:44 PM) UA pH [5.0-9.0] 7.5 (03/30/21 10:54 PM) Albumin Level [3.4-5.0 gm/dL] 3.9 gm/dL (03/30/21 9:44 PM) Alk Phos [48-129 unit/L] 68 unit/L (03/30/21 9:44 PM) ALT [13-61 IU/L] 35 IU/L (03/30/21 9:44 PM) Hct [36.0-46.0 %] 33.7 % *LOW* (03/30/21 9:44 PM) Hgb [12.0-15.0 gm/dL] 10.4 gm/dL *LOW* (03/30/21 9:44 PM) MCH [26.0-34.0 pg] 24.6 pg *LOW* (03/30/21 9:44 PM) MCHC [31.0-37.0 gm/dL] 30.9 gm/dL *LOW* (03/30/21 9:44 PM) MCV [80-100 fL] 80 fL (03/30/21 9:44 PM) MPV [9.2-12.7 fL] 10.1 fL (03/30/21 9:44 PM) Glucose Level [74-106 mg/dL] 97 mg/dL (03/30/21 9:44 PM) Platelet [150-350 x10(3)/mcL] 210 x10(3) /mcL (03/30/21 9:44 PM) Potassium Level [3.5-5.1 mmol/L] 3.4 mmo l/L *LOW* (03/30/21 9:44 PM) UA Spec Grav [1.000-1.060] 1.015 (03/30/21 10:54 PM) WBC [4.5-11.0 x10(3)/mcL] 5.7 x10(3)/mcL (03/30/21 9:44 PM) BUN [7-18 mg/dL] 7 mg/dL (03/30/21 9:44 PM) Calcium Level [8.5-10.1 mg/dL] 9.0 mg/dL (03/30/21 9:44 PM) Chloride [98-107 mmol/L] 108 mmol/L *HI* (03/30/21 9:44 PM) eGFR AA >60 mL/min/1.73 m2 *NA* (03/30/21 9:44 PM) eGFR BRUNO >60 mL/min/1.73 m2 *NA* (03/30/21 9:44 PM) Neutrophil Absolute [1.50-7.80 x10(3)/mc L] 3.31 x10(3)/mcL (03/30/21 9:44 PM) Lymphocyte Absolute [1.10-4.80 x10(3)/mc L] 1.80 x10(3)/mcL (03/30/21 9:44 PM) Monocyte Absolute 0.37 x10(3)/mcL *NA* (03/30/21 9:44 PM) Eosinophil Absolute 0.12 x10(3)/mcL *NA* (03/30/21 9:44 PM) Basophil Absolute 0.06 x10(3)/mcL *NA* (03/30/21 9:44 PM) Imm Gran Absolute 0.01 /mcL *NA* (03/30/21 9:44 PM) NRBC % [0.0-0.2 %] 0.0 % (03/30/21 9:44 PM) Culture Indicated Indicated *NA* (03/30/21 10:54 PM) Osmol Calculated 275 mOsm/kg *NA* (03/30/21 9:44 PM) Eosinophil Auto [1.0-4.0 %] 2.1 % (03/30/21 9:44 PM) Immature Granulocyte Auto 0 % *NA* (03/30/21 9:44 PM) Lymphocyte Auto [24.0-44.0 %] 31.7 % (03/30/21 9:44 PM) Monocyte Auto [2.0-11.0 %] 6.5 % (03/30/21 9:44 PM) Neutrophil Auto [31.0-76.0 %] 58.4 % (03/30/21 9:44 PM) Basophil Auto [0.0-2.0 %] 1.1 % (03/30/21 9:44 PM) Creatinine [0.6-1.3 mg/dL] 0.7 mg/dL (03/30/21 9:44 PM) Leukocytes Urine Dipstick Trace (03/30/21 11:02 PM) Nitrite Urine Dipstick Negative (03/30/21 11:02 PM) Urobilinogen Urine Dipstick 1 mg/dl (03/30/21 11:02 PM) Protein Urine Dipstick 1+ (30 mg/dl) (03/30/21 11:02 PM) pH Urine Dipstick 7 (03/30/21 11:02 PM) Blood Urine Dipstick Large (03/30/21 11:02 PM) Specific [place] Urine Dipstick 1.025 (03/30/21 11:02 PM) Ketones Urine Dipstick Negative (03/30/21 11:02 PM) Bilirubin Urine Dipstick Negative (03/30/21 11:02 PM) Glucose Urine Dipstick Negative (03/30/21 11:02 PM) Urine Color Urine Dipstick Yellow (03/30/21 11:02 PM) Urine Appearance Urine Dipstick Clear (03/30/21 11:02 PM) UA Epithelial Cells Not Present *NA* (03/30/21 10:54 PM) 1Result Comment: Urobilinogen result is equal to the Semiquantitative Result of: NORMAL Vital Signs Most recent to oldest [Reference Range]: 1 2 Temperature Oral [35.8-37.3 DegC] 36.8 D egC (03/31/21 5:23 AM) 36.9 DegC (03/30/21 6:41 PM) Peripheral Pulse Rate [60-100 bpm] 84 bp m (03/31/21 5:23 AM) 77 bpm (03/30/21 6:41 PM) Respiratory Rate [14-20 br/min] 16 br/mi n (03/31/21 5:23 AM) 14 br/min (03/30/21 6:41 PM) Blood Pressure 148/78mmHg (03/31/21 5:23 AM) 137/66mmHg (03/30/21 6:41 PM) Social History Social History Type Response Sex Female Hospital Discharge Instructions Patient Education 03/30/2021 23:12:49 Acute Pain, Adult Acute Pain, Adult Acute pain is a type of sudden pain that may last for just a few days or for as long as six months.It is often related to an illness, injury, or medical procedure. Acute pain may be mild, moderate, or severe. Pain can make it hard for you to do your normal, daily activities. It can cause anxiety and lead toother problems if it is left untreated. Treatment depends on the cause and severity of your pain. Acute pain usually goes away once your injury has healed or you are no longer ill. Follow these instructions at home: Medicines ??? Take nnpy-xgm-sffdgey and prescription medicines only as told by your health care provider. ??? Take the lowest dose of medicine for the shortest amount of time needed to relieve the pain. ??? If you are taking prescription pain medicine: ??? Do not stop taking the medicine suddenly. Talk to your health care provider about how and when to discontinue prescription medicine. ??? Do not take more pills than told by your health care provider even if your pain is severe. ??? Do not take other khnt-ypk-odyvldk pain medicines in addition to prescription pain medicine unless told by your health care provider. ??? Ask your health care provider if the medicine requires you to avoid driving or using heavy machinery. ??? Ask your health care provider if the medicine can cause constipation. You may need to take these actions to prevent or treat constipation: ??? Drink enough fluid to keep your urine pale yellow. ??? Eat foods that are high in fiber, such as beans, whole grains, and fresh fruits and vegetables. ??? Take bdin-goh-dwtsfzd or prescription medicines. ??? Limit foods that are high in fat and processed sugars, such as fried or sweet foods. Managing pain, stiffness, and swelling If directed, put ice on the affected area. To do this: ??? Put ice in a plastic bag. ??? Place a towel between your skin and the bag. ??? Leave the ice on for 20 minutes, 2???3 times a day. If directed, apply heat to the affected area as often as told by your health care provider. Use theheat source that your health care provider recommends, such as a moist heat pack or a heating pad. ??? Place a towel between your skin and the heat source. ??? Leave the heat on for 20???30 minutes. ??? Remove the heat if your skin turns bright red. This is especially important if you are unable to feel pain, heat, or cold. You may have a greater risk of getting burned. Activity ??? Rest as told by your health care provider. ??? Return to your normal activities as told by your health care provider. Ask your health care provider what activities are safe for you. General instructions ??? Check your pain level as told by your health care provider. ??? Ask your health care provider if other strategies such as distraction, relaxation, or physical therapies can help your pain. ??? Keep all follow-up visits as told by your health care provider. This is important. Contact a health care provider if: ??? Your pain is not controlled by medicine. ??? Your pain does not improve or gets worse. ??? You have side effects from pain medicines, such as vomiting or confusion. Get help right away if you: ??? Have severe pain. ??? Have trouble breathing. ??? Lose consciousness. ??? Have chest pain or pressure that lasts for more than a few minutes, or if you have other symptoms along with chest pain, including if you: ??? Have pain or discomfort in one or both arms, your back, neck, jaw, or stomach. ??? Have shortness of breath. ??? Break out in a cold sweat. ??? Feel nauseous. ??? Become light-headed. These symptoms may represent a serious problem that is an emergency. Do not wait to see if the symptoms will go away. Get medical help right away. Call your local emergency services (911 in the [place] Do not drive yourself to the hospital. Summary ??? Acute pain may be mild, moderate, or severe. It usually goes away once your injury has healed or you are no longer ill. ??? Take rjuk-ubp-ffjbksy and prescription medicines only as told by your health care provider. ??? Ask your health care provider if the medicine prescribed to you can cause constipation. ??? Contact a health care provider if your pain is not controlled by medicine. This information is not intended to replace advice given to you by your health care provider. Make sure you discuss any questions you have with your health care provider. Document Revised: 09/16/2019 Document Reviewed: 09/16/2019 [employer] Patient Education ?? 2020 [employer]
--- OUTSIDE RECORDS SUMMARY | 2022-11-20 17:51 | XMS_ITS | Continuity of Care Document ---
Author Name Unknown Organization [facility] Address Unknown Care Team Providers Care Sandwich Counter Attendant Name Role Phone No Local PCP, No Local PCP Primary Care Physicia n Unavailable Encounter Date(s): 04/17/22 - 04/17/22 [facility] [address], [place] [address] Encounter Diagnosis Dysmenorrhea(Discharge Diagnosis) - 04/17/22 Dysfunctional uterine bleeding(Discharge Diagnosis) - 04/17/22 Discharge Disposition: Home or Self Care Attending Physician: NAYLA PRUETT MD Admitting Physician: NAYLA PRUETT MD Allergies, Adverse Reactions, Alerts Substance Reaction Severity Status penicillin Active droperidol Active Latex Active Haldol Active Compazine Muscle cramps Active Toradol Hives Active Medications Advair HFA 115/ inhalation aerosol with adapter 2 puff(s), Inhaled, BID Start Date: 01/21/22 Status: Ordered Albuterol (Eqv-ProAir HFA) 90 mcg/inh inhalation aerosol 2 puff(s), Inhaled, q4hr, PRN PRN as needed for wheezing Start Date: 01/21/22 Status: Ordered Dilaudid 0.5 mg = 0.5 mL, Syringe, IV Push, q30min PRN pain for 2 Doses/Times, Start date 04/17/22 12:07:00 EST, Stop date Limited # of times, STAT Start Date: 04/17/22 Stop Date: 04/17/22 Status: Discontinued Extra Strength Tylenol Menstrual 2 tab(s), Oral, [...] BID, # 56 tab(s), 0 Refill(s), Pharmacy: [facility] Pharmacy, 166.74, cm, 01/20/2217:15:00 EDT, [...] pain, # 7 tab(s), 0 Refill(s), Pharmacy: [facility] Pharmacy, 167, cm, 03/10/22 19:15:00 EDT, Height/Length [...] nausea/vomiting, # 10 tab(s), 0 Refill(s), Pharmacy: [facility] Pharmacy, 167, cm, 03/10/22 19:15:00 EDT, Height/Length Dosing, 77.4, kg, 03/11/22 0:18:00 EDT, Weight Dosing Start Date: 03/11/22 Stop Date: 05/14/22 Status: Ordered Mental Status 04/17/22 Orientation Assessment Oriented x 4 Problem List [...] for MRSA. Results Laboratory List Name Date Drug Screen Urine (Urine Tox Screen) 04/17/22 Auto Differential 04/17/22 CBC Auto Diff reflex Manual Diff 04/17/22 HCG Quantitative 04/17/22 Most recent to oldest [Reference Range]: 1 Benzodiazepines Screen Not Detected *NA* (04/17/22 12:04 PM) Cocaine Screen Not Detected *NA* (04/17/22 12:04 PM) Opiate Screen Detected *NA* (04/17/22 12:04 PM) Phencyclidine Screen Not Detected *NA* (04/17/22 12:04 PM) Tricyclics Screen Not Detected *NA* (04/17/22 12:04 PM) Amphetamines Screen Not Detected *NA* (04/17/22 12:04 PM) Barbiturates Screen Not Detected *NA* (04/17/22 12:04 PM) T-Cannabinol Screen Not Detected *NA* (04/17/22 12:04 PM) Methamphetamines Screen Not Detected *NA* (04/17/22 12:04 PM) RBC [4.00-5.20 x10(6)/mcL] 3.80 x10(6)/m cL *LOW* (04/17/22 10:58 AM) RDW [11.5-14.5 %] 18.4 % *HI* (04/17/22 10:58 AM) Hct [36.0-46.0 %] 31.4 % *LOW* (04/17/22 10:58 AM) Hgb [12.0-15.0 gm/dL] 9.9 gm/dL *LOW* (04/17/22 10:58 AM) MCH [26.0-34.0 pg] 26.1 pg (04/17/22 10:58 AM) MCHC [31.0-37.0 gm/dL] 31.5 gm/dL (04/17/22 10:58 AM) MCV [80-100 fL] 83 fL (04/17/22 10:58 AM) MPV [9.2-12.7 fL] 10.9 fL (04/17/22 10:58 AM) Platelet [150-350 x10(3)/mcL] 241 x10(3) /mcL (04/17/22 10:58 AM) WBC [4.5-11.0 x10(3)/mcL] 6.6 x10(3)/mcL (04/17/22 10:58 AM) hCG Qnt [1-3 mIU/mL] <1 mIU/mL (04/17/22 10:58 AM) Neutrophil Absolute [1.50-7.80 x10(3)/mc L] 5.21 x10(3)/mcL (04/17/22 10:58 AM) Lymphocyte Absolute [1.10-4.80 x10(3)/mc L] 0.90 x10(3)/mcL *LOW* (04/17/22 10:58 AM) Monocyte Absolute 0.33 x10(3)/mcL *NA* (04/17/22 10:58 AM) Eosinophil Absolute 0.04 x10(3)/mcL *NA* (04/17/22 10:58 AM) Basophil Absolute 0.04 x10(3)/mcL *NA* (04/17/22 10:58 AM) Imm Gran Absolute 0.03 /mcL *NA* (04/17/22 10:58 AM) NRBC % [0.0-0.2 %] 0.0 % (04/17/22 10:58 AM) Methadone Screen Not Detected *NA* (04/17/22 12:04 PM) Eosinophil Auto [1.0-4.0 %] 0.6 % *LOW* (04/17/22 10:58 AM) Immature Granulocyte Auto 0 % *NA* (04/17/22 10:58 AM) Lymphocyte Auto [24.0-44.0 %] 13.7 % *LOW* (04/17/22 10:58 AM) Monocyte Auto [2.0-11.0 %] 5.0 % (04/17/22 10:58 AM) Neutrophil Auto [31.0-76.0 %] 79.6 % *HI* (04/17/22 10:58 AM) Basophil Auto [0.0-2.0 %] 0.6 % (04/17/22 10:58 AM) Oxycodone Screen Not Detected *NA* (04/17/22 12:04 PM) Buprenorphine Screen Not Detected *NA* (04/17/22 12:04 PM) Vital Signs Most recent to oldest [Reference Range]: 1 2 3 Temperature Oral [35.8-37.3 DegC] 36.9 DegC (04/17/22 9:47 AM) Peripheral Pulse Rate [60-100 bpm] 79 bpm (04/17/22 2:40 PM) 71 bpm (04/17/22 1:30 PM) 80 bpm (04/17/22 1:05 PM) Heart Rate Monitored [60-100 bpm] 67 bpm (04/17/22 12:20 PM) Respiratory Rate [14-20 br/min] 18 br/min (04/17/22 2:40 PM) 16 br/min (04/17/22 1:30 PM) 16 br/min (04/17/22 1:05 PM) Blood Pressure [90-140/60-90 mmHg] 104/64mmHg (04/17/22 2:40 PM) 108/56mmHg (04/17/22 1:30 PM) 107/55mmHg (04/17/22 1:05 PM) Mean Arterial Pressure, Cuff 75 mmHg (04/17/22 2:40 PM) 72 mmHg (04/17/22 1:30 PM) 72 mmHg (04/17/22 1:05 PM) Blood Pressure 117/63mmHg (04/17/22 9:47 AM) Social History Social History Type Response Tobacco Tobacco Use: Denies. Sex Female Hospital Discharge Instructions Patient Education 04/17/2022 14:43:11 Dysfunctional Uterine Bleeding Dysfunctional Uterine Bleeding Dysfunctional uterine bleeding is abnormal bleeding from the uterus. Dysfunctional uterine bleedingincludes: ??? A menstrual period that comes earlier or later than usual. ??? A menstrual period that is humidifier maintenance worker or heavier than usual, or has large blood clots. ??? Vaginal bleeding between menstrual periods. ??? Skipping one or more menstrual periods. ??? Vaginal bleeding after sex. ??? Vaginal bleeding after menopause. Follow these instructions at home: Eating and drinking ??? Eat well-balanced meals. Include foods that are high in iron, such as liver, meat, shellfish, green leafy vegetables, and eggs. ??? To prevent or treat constipation, your health care provider may recommend that you: ??? Drink enough fluid to keep your urine pale yellow. ??? Take hadv-bsc-mwerrxg or prescription medicines. ??? Eat foods that are high in fiber, such as beans, whole grains, and fresh fruits and vegetables. ??? Limit foods that are high in fat and processed sugars, such as fried or sweet foods. Medicines ??? Take jibq-kwh-ofmvozu and prescription medicines only as told by your health care provider. ??? Do not change medicines without talking with your health care provider. ??? Aspirin or medicines that contain aspirin may make the bleeding worse. Do not take those medicines: ??? During the week before your menstrual period. ??? During your menstrual period. ??? If you were prescribed iron pills, take them as told by your health care provider. Iron pills help to replace iron that your body loses because of this condition. Activity ??? If you need to change your sanitary pad or tampon more than one time every 2 hours: ??? Lie in bed with your feet raised (elevated). ??? Place a cold pack on your lower abdomen. ??? Rest as much as possible until the bleeding stops or slows down. ??? Do not try to lose weight until the bleeding has stopped and your blood iron level is back to normal. General instructions ??? For two months, write down: ??? When your menstrual period starts. ??? When your menstrual period ends. ??? When any abnormal vaginal bleeding occurs. ??? What problems you notice. ??? Keep all follow up visits as told by your health care provider. This is important. Contact a health care provider if you: ??? Feel light-headed or weak. ??? Have nausea and vomiting. ??? Cannot eat or drink without vomiting. ??? Feel dizzy or have diarrhea while you are taking medicines. ??? Are taking control pills or hormones, and you want to change them or stop taking them. Get help right away if: ??? You develop a fever or chills. ??? You need to change your sanitary pad or tampon more than one time per hour. ??? Your vaginal bleeding becomes heavier, or your flow contains clots more often. ??? You develop pain in your abdomen. ??? You lose consciousness. ??? You develop a rash. Summary ??? Dysfunctional uterine bleeding is abnormal bleeding from the uterus. ??? It includes menstrual bleeding of abnormal duration, volume, or regularity. ??? Bleeding after sex and after menopause are also considered dysfunctional uterine bleeding. This information is not intended to replace advice given to you by your health care provider. Make sure you discuss any questions you have with your health care provider. Document Revised: 10/10/2018 Document Reviewed: 10/10/2018 [employer] Patient Education ?? 2021 [email or web address] 04/17/2022 14:43:11 Dysmenorrhea, Hdxu-xj-Ttcr Dysmenorrhea Dysmenorrhea means cramps during your period (menstrual period) that cause pain in your lower belly(abdomen). The pain is caused by the tightening (cliff) of the muscles of the womb (uterus). The pain may be mild or very bad. Primary dysmenorrhea is cramps that last a couple of days when a woman starts having periods or soon after. As a woman gets older or has a baby, the cramps will usually lessen or disappear. Secondarydysmenorrhea begins later in life and is caused by other problems. What are the causes? This condition may be caused by problems with the: ??? Tissue that lines the womb. This tissue may grow: ??? Outside of the womb. ??? Into the ware of the womb. ??? Blood vessels in the area between your hip bones (pelvis). ??? Tissue in the lower part of the womb (cervix), including growths (polyps). ??? Muscles that hold up the womb. ??? Bladder. ??? Bowels. It can also be caused by cancer. Other causes include: ??? A very tipped womb. ??? The lower part of the womb having a small opening. ??? Tumors in the womb that are not cancer. ??? Pelvic inflammatory disease (PID). ??? Scars from surgeries you have had. ??? A cyst in the ovaries. ??? An IUD (intrauterine device). What increases the risk? Being younger than age 30. ??? Having started puberty early. ??? Having irregular bleeding or heavy bleeding. ??? Never having given . ??? Having a family history of period cramps. ??? Smoking or using products with nicotine. ??? Having a high body weight or a low body weight. What are the signs or symptoms? Cramps and pain in the lower belly or lower back. ??? A feeling of fullness in the lower belly. ??? Periods lasting for longer than 7 days. ??? Headaches. ??? Bloating. ??? Tiredness (fatigue). ??? Feeling like you may vomit (nauseous) or vomiting. ??? Watery poop (diarrhea) or loose poop (stool). ??? Sweating. ??? Dizziness. How is this treated? Treatment depends on the cause of the cramps. Treatment may include medicines, such as: ??? Medicines for pain. ??? Medicines for bleeding. ??? Body chemical (hormone) replacement therapy. ??? Shots (injections) to stop the menstrual period. ??? control pills. ??? An IUD. ??? NSAIDs, such as ibuprofen. Other treatments may include: ??? Surgeries. ??? Procedures. ??? Nerve stimulation. ??? Doing exercises. ??? Yoga and alternative treatments. Work with your doctor to find what treatments are best for you. Follow these instructions at home: Helping pain and cramping ??? If told, put heat on your lower back or belly when you have pain or cramps. Do this as often astold by your doctor. Use the heat source that your doctor recommends, such as a moist heat pack or a heating pad. ??? Place a towel between your skin and the heat. ??? Leave the heat on for 20???30 minutes. ??? Take off the heat if your skin turns bright red. This is very important. If you cannot feel pain, heat, or cold, you have a greater risk of getting burned. ??? Do not sleep with a heating pad. ??? Exercise. Walking, swimming, or biking can help take away cramps. ??? Massage your lower back or belly. This may help lessen pain. General instructions ??? Take ozek-cml-rtrnukt and prescription medicines only as told by your doctor. ??? Ask your doctor if you should avoid driving or using machines while you are taking your medicine. ??? Avoid alcohol and caffeine during and right before your period. These can make cramps worse. ??? Do not smoke or use any products that contain nicotine or tobacco. If you need help quitting, ask your doctor. ??? Keep all follow-up visits. Contact a doctor if: ??? You have pain that gets worse. ??? You have pain that does not get better with medicine. ??? You have pain during sex. ??? You feel like you may vomit or you vomit during your period and medicine does not help. Get help right away if: ??? You faint. Summary ??? Dysmenorrhea means painful cramps during your period. ??? Put heat on your lower back or belly when you have pain or cramps. ??? Do exercises like walking, swimming, or biking to help with cramps. ??? Contact a doctor if you have pain during sex. This information is not intended to replace advice given to you by your health care provider. Make sure you discuss any questions you have with your health care provider. Document Revised: 12/16/2020 Document Reviewed: 12/16/2020 [employer] Patient Education ?? 2021 [employer] Care Team Care Team Personnel Name: No Local PCP No Local PCP, Member Role: Primary Care Physician Name: Daija Valdivia RN Position: ED Nurse/BARBER Member Role: ED Nurse Name: NAYLA PRUETT MD Position: Physician - ED Member Role: Attending Physician Address: Address: [address] [place] [address] Care Team Related Persons Name: BO PAYAN Address: [address] [id number] Name: BO PAYAN Address: [address] [place], [place] [id number] Name: BO BOOKER Address: Home
--- OUTSIDE RECORDS SUMMARY | 2022-11-20 17:51 | XMS_ITS | Continuity of Care Document ---
Author Name Unknown Organization [facility] Address Unknown Care Team Providers Care Can Piler Name Role Phone No Local PCP, No Local PCP Primary Care Physicia n Unavailable Encounter Date(s): 10/01/22 - 10/01/22 [facility] [address], [place] [address] Encounter Diagnosis Pelvic pain(Discharge Diagnosis) - 10/01/22 Rash(Discharge Diagnosis) - 10/01/22 Discharge Disposition: Home or Self Care Attending Physician: ZACHARY CASTANEDA MD Admitting Physician: ZACHARY CASTANEDA MD Allergies, Adverse Reactions, Alerts Substance Reaction [...] for wheezing Start Date: 01/21/22 Status: Ordered Bactroban 2% topical ointment 1 marta, Topical, TID, X 7 day(s), # 30 gm, 0 Refill(s) Start Date: 10/01/22 Stop Date: 10/08/22 Status: Ordered Bentyl 20 mg oral tablet 20 mg = 1 tab(s), Oral, QID, # 28 tab(s), 0 Refill(s), Pharmacy: [facility] #[id number], 167.6, cm, 07/27/22 18:15:00 EDT, Height/Length Dosing, [...] Oral, qHS Start Date: 01/21/22 Status: Ordered valACYclovir 1 g oral tablet 1 gm = 1 tab(s), Oral, BID, X 7 day(s), # 14 tab(s), 0 Refill(s) Start Date: 10/01/22 Stop Date: 10/08/22 Status: Ordered Zofran 4 mg oral tablet 4 mg = 1 tab(s), Oral, q8hr, PRN PRN: as needed for nausea/vomiting, X 3 day(s), # 10 tab(s), 0 Refill(s) Start Date: 10/01/22 Stop Date: 10/04/22 Status: Ordered Mental Status 10/01/22 Orientation Assessment Oriented x 4 Problem List [...] Date .Estimated Glomerular Filtration Rate Auto Differential 10/01/22 CBC Auto Diff reflex Manual Diff 10/01/22 Comprehensive Metabolic Panel 10/01/22 HCG Quantitative 10/01/22 Lipase Level 10/01/22 Urinalysis Microscopic Add On Only Urinalysis Reflex Microscopic, Culture i f 10/01/22 Most recent to oldest [Reference Range]: 1 Hyaline Casts Not Present *NA* (10/01/22 8:38 PM) UA Appear Clear *NA* (10/01/22 8:38 PM) Bacteria Not Present *NA* (10/01/22 8:38 PM) UA Bili Negative *NA* (10/01/22 8:38 PM) UA Blood Negative *NA* (10/01/22 8:38 PM) UA Color Yellow *NA* (10/01/22 8:38 PM) UA Glucose Negative *NA* (10/01/22 8:38 PM) UA Ketones Trace *ABN* (10/01/22 8:38 PM) UA Leuk Est Negative *NA* (10/01/22 8:38 PM) Mucous Present *ABN* (10/01/22 8:38 PM) UA Nitrite Negative *NA* (10/01/22 8:38 PM) UA Protein Trace *ABN* (10/01/22 8:38 PM) Red Blood Cells <2 *NA* (10/01/22 8:38 PM) UA Urobilinogen 1.0 1 (10/01/22 8:38 PM) White Blood Cells 1-3 *NA* (10/01/22 8:38 PM) Microscopic Indicated Yes *NA* (10/01/22 8:38 PM) Casts Not Present *NA* (10/01/22 8:38 PM) AGAP 8 *NA* (10/01/22 9:18 PM) A/G Ratio 1.0 *NA* (10/01/22 9:18 PM) BUN/Creat Ratio 12 *NA* (10/01/22 9:18 PM) RBC [4.00-5.20 x10(6)/mcL] 3.74 x10(6)/m cL *LOW* (10/01/22 9:18 PM) RDW [11.5-14.5 %] 18.4 % *HI* (10/01/22 9:18 PM) Sodium Level [136-145 mmol/L] 140 mmol/L (10/01/22 9:18 PM) Total Protein [6.4-8.2 gm/dL] 7.1 gm/dL (10/01/22 9:18 PM) AST [15-37 IU/L] 16 IU/L (10/01/22 9:18 PM) Bili Total [0.20-1.00 mg/dL] 0.23 mg/dL (10/01/22 9:18 PM) CO2 [21-32 mmol/L] 25 mmol/L (10/01/22 9:18 PM) UA pH [5.0-9.0] 6.0 (10/01/22 8:38 PM) Albumin Level [3.4-5.0 gm/dL] 3.6 gm/dL (10/01/22 9:18 PM) Alk Phos [48-129 unit/L] 48 unit/L (10/01/22 9:18 PM) ALT [13-61 IU/L] 28 IU/L (10/01/22 9:18 PM) Hct [36.0-46.0 %] 29.0 % *LOW* (10/01/22 9:18 PM) Hgb [12.0-15.0 gm/dL] 8.7 gm/dL *LOW* (10/01/22 9:18 PM) Lipase Lvl [13-75 IU/L] 19 IU/L (10/01/22 9:18 PM) MCH [26.0-34.0 pg] 23.3 pg *LOW* (10/01/22 9:18 PM) MCHC [31.0-37.0 gm/dL] 30.0 gm/dL *LOW* (10/01/22 9:18 PM) MCV [80-100 fL] 78 fL *LOW* (10/01/22 9:18 PM) MPV [9.2-12.7 fL] 9.7 fL (10/01/22 9:18 PM) Glucose Level [74-106 mg/dL] 81 mg/dL (10/01/22 9:18 PM) Platelet [150-350 x10(3)/mcL] 191 x10(3) /mcL (10/01/22 9:18 PM) Potassium Level [3.5-5.1 mmol/L] 3.7 mmo l/L (10/01/22 9:18 PM) UA Spec Grav [1.000-1.060] 1.037 (10/01/22 8:38 PM) WBC [4.5-11.0 x10(3)/mcL] 4.7 x10(3)/mcL (10/01/22 9:18 PM) BUN [7-18 mg/dL] 10 mg/dL (10/01/22 9:18 PM) Calcium Level [8.5-10.1 mg/dL] 8.7 mg/dL (10/01/22 9:18 PM) Chloride [98-107 mmol/L] 111 mmol/L *HI* (10/01/22 9:18 PM) hCG Qnt [1-3 mIU/mL] <1 mIU/mL (10/01/22 9:18 PM) eGFR AA >60 mL/min/1.73 m2 *NA* (10/01/22 9:18 PM) eGFR BRUNO >60 mL/min/1.73 m2 *NA* (10/01/22 9:18 PM) Neutrophil Absolute [1.50-7.80 x10(3)/mc L] 3.07 x10(3)/mcL (10/01/22 9:18 PM) Lymphocyte Absolute [1.10-4.80 x10(3)/mc L] 1.13 x10(3)/mcL (10/01/22 9:18 PM) Monocyte Absolute 0.36 x10(3)/mcL *NA* (10/01/22 9:18 PM) Eosinophil Absolute 0.09 x10(3)/mcL *NA* (10/01/22 9:18 PM) Basophil Absolute 0.03 x10(3)/mcL *NA* (10/01/22 9:18 PM) Imm Gran Absolute 0.01 /mcL *NA* (10/01/22 9:18 PM) NRBC % [0.0-0.2 %] 0.0 % (10/01/22 9:18 PM) Culture Indicated Not Indicated *NA* (10/01/22 8:38 PM) Osmol Calculated 278 mOsm/kg *NA* (10/01/22 9:18 PM) Eosinophil Auto [1.0-4.0 %] 1.9 % (10/01/22 9:18 PM) Immature Granulocyte Auto 0 % *NA* (10/01/22 9:18 PM) Lymphocyte Auto [24.0-44.0 %] 24.1 % (10/01/22 9:18 PM) Monocyte Auto [2.0-11.0 %] 7.7 % (10/01/22 9:18 PM) Neutrophil Auto [31.0-76.0 %] 65.5 % (10/01/22 9:18 PM) Basophil Auto [0.0-2.0 %] 0.6 % (10/01/22 9:18 PM) Creatinine [0.6-1.3 mg/dL] 0.8 mg/dL (10/01/22 9:18 PM) UA Epithelial Cells 1+ *NA* (10/01/22 8:38 PM) 1Result Comment: Urobilinogen result is equal to the Semiquantitative Result of: NORMAL Vital Signs Most recent to oldest [Reference Range]: 1 2 Temperature Oral [35.8-37.3 DegC] 37.5 D egC *HI* (10/01/22 7:18 PM) Peripheral Pulse Rate [60-100 bpm] 92 bp m (10/01/22 10:32 PM) 105 bpm *HI* (10/01/22 7:18 PM) Respiratory Rate [14-20 br/min] 18 br/mi n (10/01/22 10:32 PM) 16 br/min (10/01/22 7:18 PM) Blood Pressure [90-140/60-90 mmHg] 126/7 4mmHg (10/01/22 10:32 PM) Mean Arterial Pressure, Cuff 90 mmHg (10/01/22 10:32 PM) Blood Pressure 125/94mmHg (10/01/22 7:18 PM) Social History Social History Type Response Tobacco Tobacco Use: Denies. Sex Female Hospital Discharge Instructions Patient Education 10/01/2022 22:37:11 Abdominal Pain, Adult Abdominal Pain, Adult Pain [...] these instructions at home: Medicines ??? Take njnb-bpv-hguwjyk and prescription medicines only as told by [...] your condition for any changes. ??? Take frcx-rht-wcwssjx and prescription medicines only as told by [...] provider. Document Revised: 06/19/2020 Document Reviewed: 09/09/2019 [employer] Patient Education ?? 2022 [employer]. Patient Care team information Care Team Personnel Name: No Local PCP No Local PCP, Member Role: Primary Care Physician Name: DANG THOMAS RN Position: ED Nurse/CONTACT MANAGER Member Role: ED Nurse Name: JODI HARMON MD Position: Physician - ED Member Role: ED Physician Address: Address: [address] [place] [id number] [place] Care Team Related Persons Name: BO PAYAN Address: [place] [address] Name: BO PAYAN Address: [place], [place] [id number] Name: BO BOOKER Address: [place] [address]
--- OUTSIDE RECORDS SUMMARY | 2022-11-20 17:51 | XMS_ITS | Continuity of Care Document ---
Author Name Unknown Organization [facility] Address Unknown Care Team Providers Care Emt Intermediate Name Role Phone RICARDO RUTH Primary Care Physician [phone] Encounter Date(s): 04/11/21 - 04/11/[address] [address] Discharge Disposition: AMA Left Without Being Seen Attending Physician: DAVIS CHILEL PA-C Admitting Physician: DAVIS CHILEL PA-C Allergies, Adverse Reactions, Alerts Substance Reaction Severity Status penicillin Active Latex Active Compazine Muscle cramps Active Toradol Hives Active Medications Bentyl 20 mg oral tablet 20 mg = 1 tab(s), Oral, QID, # 28 tab(s), 0 Refill(s), Pharmacy: [id number], 165.1, cm, 03/30/21 18:41:00 EST, Height/Length Dosing, 90.7, kg, 03/30/21 18:41:00 EST, Weight Dosing Start Date: 03/30/21 Stop Date: 04/06/21 Status: Ordered Bentyl 20 mg oral tablet 20 mg = 1 tab(s), Oral, QID, # 28 tab(s), 0 Refill(s), Pharmacy: [id number], 163, cm, 02/03/21 15:44:00 [...] intramuscular injection, extended release 3.75 mg, IM, [id number], # 1 ea, 0 Refill(s) Start Date: 04/05/19 Status: Ordered Mirena 0 Refill(s) Start Date: 07/16/19 Status: Ordered montelukast 0 Refill(s) Start Date: 03/30/21 Status: Ordered norethindrone 5 mg oral tablet 0 Refill(s) Start Date: 05/18/19 Status: Ordered ondansetron 4 mg oral tablet, disintegrating 4 mg = 1 tab(s), Oral, q6hr, # 10 tab(s), 0 Refill(s), Pharmacy: [facility] #[id number], 162, cm, 09/01/19 10:41:00 EDT, Height/Length Dosing, 73, kg, 09/01/19 10:41:00 EDT, Weight Dosing Start Date: 09/01/19 Stop Date: 09/04/19 Status: Ordered Phenergan 25 mg rectal suppository = 1 suppository(ies), WA, q4hr, PRN PRN: as needed for nausea/vomiting, # 12 suppository(ies), 0 Refill(s), Pharmacy: [facility] #[id number], 162, cm, 05/18/19 18:42:47 EST, Height/Length Dosing, [...] nausea/vomiting, # 30 tab(s), 0 Refill(s), Pharmacy: [facility] #[id number], 163, cm, 07/29/19 11:21:00 EDT, Height/Length Dosing, 68.1, kg, 07/29/19 11:21:00 EDT, Weight Dosing Start Date: 07/29/19 Status: Ordered Mental Status 04/11/21 Level of Consciousness Alert Orientation Assessment Oriented [...] Most recent to oldest [Reference Range]: 1 Peripheral Pulse Rate [60-100 bpm] 85 bp m (04/11/21 3:05 PM) Respiratory Rate [14-20 br/min] 18 br/mi n (04/11/21 3:05 PM) Blood Pressure 133/85mmHg (04/11/21 3:05 PM) Social History Social History Type Response Sex Female
--- OUTSIDE RECORDS SUMMARY | 2022-11-20 17:51 | XMS_ITS | Continuity of Care Document ---
Author Name Unknown Organization [facility] Address Unknown Care Team Providers Care J2Ee Application Developer Name Role Phone No Local PCP, No Local PCP Primary Care Physicia n Unavailable Encounter Date(s): 03/07/22 - 03/07/22 [facility] [address], [place] [address] Encounter Diagnosis Vaginal bleeding(Discharge Diagnosis) - 03/07/22 Discharge Disposition: Home or Self Care Attending Physician: DAVIS CHILEL PA-C Admitting Physician: DAVIS CHILEL PA-C Allergies, Adverse Reactions, Alerts Substance Reaction Severity Status penicillin Active droperidol Active Latex Active Haldol Active Compazine Muscle cramps Active Toradol Hives Active Medications Advair HFA 115/21 inhalation aerosol with [...] BID, # 56 tab(s), 0 Refill(s), Pharmacy: [facility] [place] Pharmacy, 166.74, cm, 01/20/2217:15:00 EDT, Height/Length Dosing, 78.92, kg, 01/20/22 17:15:00 EDT, Weight Dosing Start Date: 01/21/22 Stop Date: 02/18/22 Status: Ordered omeprazole 20 mg oral delayed release capsule 20 mg = 1 cap(s), Oral, Daily Start Date: 01/21/22 Status: Ordered sertraline 100 mg oral tablet 100 mg = 1 tab(s), Oral, Daily Start Date: 01/21/22 Status: Ordered tiZANidine 4 mg oral tablet 4 mg = 1 tab(s), Oral, q6hr, PRN PRN: muscle spasms Start Date: 01/21/22 Status: Ordered traZODone 100 mg oral tablet 100 mg = 1 tab(s), Oral, qHS Start Date: 01/21/22 Status: Ordered Mental Status 03/07/22 Orientation Assessment Oriented x 4 Problem List [...] for MRSA. Results Laboratory List Name Date D Dimer 03/07/22 Fibrinogen 03/07/22 HCG Quantitative 03/07/22 PT/INR 03/07/22 .Estimated Glomerular Filtration Rate Auto Differential 03/07/22 Basic Metabolic Panel 03/07/22 CBC Auto Diff reflex Manual Diff 2 Most recent to oldest [Reference Range]: 1 D-Dimer [215-499 ng/mL] <215 ng/mL (03/07/22 5:38 PM) AGAP 9 *NA* (03/07/22 5:12 PM) INR 1.1 *NA* (03/07/22 5:38 PM) PT [9.4-12.5 second(s)] 12.6 second(s) *HI* (03/07/22 5:38 PM) RBC [4.00-5.20 x10(6)/mcL] 4.01 x10(6)/m cL (03/07/22 5:12 PM) RDW [11.5-14.5 %] 18.0 % *HI* (03/07/22 5:12 PM) Sodium Level [136-145 mmol/L] 141 mmol/L (03/07/22 5:12 PM) CO2 [21-32 mmol/L] 25 mmol/L (03/07/22 5:12 PM) Fibrinogen [200-400 mg/dL] 208 mg/dL (03/07/22 5:38 PM) Hct [36.0-46.0 %] 30.7 % *LOW* (03/07/22 5:12 PM) Hgb [12.0-15.0 gm/dL] 9.3 gm/dL *LOW* (03/07/22 5:12 PM) MCH [26.0-34.0 pg] 23.2 pg *LOW* (03/07/22 5:12 PM) MCHC [31.0-37.0 gm/dL] 30.3 gm/dL *LOW* (03/07/22 5:12 PM) MCV [80-100 fL] 77 fL *LOW* (03/07/22 5:12 PM) MPV [9.2-12.7 fL] NA fL *NA* (03/07/22 5:12 PM) Glucose Level [74-106 mg/dL] 87 mg/dL (03/07/22 5:12 PM) Platelet [150-350 x10(3)/mcL] 207 x10(3) /mcL (03/07/22 5:12 PM) Potassium Level [3.5-5.1 mmol/L] 3.2 mmo l/L *LOW* (03/07/22 5:12 PM) WBC [4.5-11.0 x10(3)/mcL] 5.2 x10(3)/mcL (03/07/22 5:12 PM) BUN [7-18 mg/dL] 9 mg/dL (03/07/22 5:12 PM) Calcium Level [8.5-10.1 mg/dL] 9.2 mg/dL (03/07/22 5:12 PM) Chloride [98-107 mmol/L] 110 mmol/L *HI* (03/07/22 5:12 PM) hCG Qnt [1-3 mIU/mL] <1 mIU/mL (03/07/22 5:38 PM) eGFR AA >60 mL/min/1.73 m2 *NA* (03/07/22 5:12 PM) eGFR BRUNO >60 mL/min/1.73 m2 *NA* (03/07/22 5:12 PM) Neutrophil Absolute [1.50-7.80 x10(3)/mc L] 2.58 x10(3)/mcL (03/07/22 5:12 PM) Lymphocyte Absolute [1.10-4.80 x10(3)/mc L] 2.03 x10(3)/mcL (03/07/22 5:12 PM) Monocyte Absolute 0.40 x10(3)/mcL *NA* (03/07/22 5:12 PM) Eosinophil Absolute 0.09 x10(3)/mcL *NA* (03/07/22 5:12 PM) Basophil Absolute 0.04 x10(3)/mcL *NA* (03/07/22 5:12 PM) Imm Gran Absolute 0.01 /mcL *NA* (03/07/22 5:12 PM) NRBC % [0.0-0.2 %] 0.0 % (03/07/22 5:12 PM) Eosinophil Auto [1.0-4.0 %] 1.7 % (03/07/22 5:12 PM) Immature Granulocyte Auto 0 % *NA* (03/07/22 5:12 PM) Lymphocyte Auto [24.0-44.0 %] 39.4 % (03/07/22 5:12 PM) Monocyte Auto [2.0-11.0 %] 7.8 % (03/07/22 5:12 PM) Neutrophil Auto [31.0-76.0 %] 50.1 % (03/07/22 5:12 PM) Basophil Auto [0.0-2.0 %] 0.8 % (03/07/22 5:12 PM) Creatinine [0.6-1.3 mg/dL] 0.9 mg/dL (03/07/22 5:12 PM) Vital Signs Most recent to oldest [Reference Range]: 1 2 3 Temperature Oral [35.8-37.3 DegC] 36.5 DegC (03/07/22 6:32 PM) 37.2 DegC (03/07/22 4:39 PM) Peripheral Pulse Rate [60-100 bpm] 107 bpm *HI* (03/07/22 7:41 PM) 69 bpm (03/07/22 6:32 PM) 79 bpm (03/07/22 4:39 PM) Respiratory Rate [14-20 br/min] 22 br/min *HI* (03/07/22 7:41 PM) 20 br/min (03/07/22 6:32 PM) 20 br/min (03/07/22 4:39 PM) Blood Pressure 105/71mmHg (03/07/22 7:41 PM) 116/69mmHg (03/07/22 6:32 PM) 124/67mmHg (03/07/22 4:39 PM) Social History Social History Type Response Tobacco Tobacco Use: Denies. Sex Female Hospital Discharge Instructions Patient Education 03/07/2022 19:04:04 jevon churchill/aakash (JLHARRIS) [facility] [place] [address] A Message from your Emergency Room Doctor: You were seen today in the emergency department for vaginal bleeding. Thankfully, your hemoglobin and hematocrit thankfully, markers of your red blood cells, are stable today. You were given intravenous TXA while here in the emergency department for additional help to slow the bleeding. Gynecology was consulted and would like to have you focal follow-up with a local high density talc coater operator and they will call you first thing in the morning. If you not hear from them by midday please call to establish follow-up appointment. Should you start to become lightheaded, dizzy, feel you are going to pass out, or develop any new or concerning symptoms at any time please return to the ER immediately for reassessment Have a nice day, Phil Adhikari MD 03/07/2022 17:51:35 Follow Up [facility] ([facility]) [facility] Follow up from your Emergency Room Visit Your [facility] [place] Emergency Department provider has recommended follow up at the [facility]. This is an important part of the care you have received in the Emergency Department. Please call the [facility] at: [phone] option ???2???to set up your follow up appointment. Our telephone service hours are 8:00- 4:45. As you were in the Emergency Department due to an OBGYN related issue, we do understand the concernand stress you may be experiencing. Since you were evaluated and then released from the Emergency Department, next steps are for you to visit one of our providers for further evaluation. Our office will review your records and determine when you should be seen. We are always prioritizing patients to be seen in our office in a timely manner. If signs and symptoms persist before your office visit, please call your primary care provider, or go to the nearest Emergency Room. We look forward to caring for you at the [facility]. Care Team Care Team Personnel Name: No Local PCP No Local PCP, Member Role: Primary Care Physician Name: PHIL ADHIKARI MD Position: Physician - ED Member Role: ED Physician Address: Address: [address] [place] [address] Name: Dick Parr RN Position: ED Nurse/GEOPHYSICAL E LOGGER Member Role: ED Nurse Name: Melanie Dixon RN Position: ED Nurse/GEOPHYSICAL E LOGGER Member Role: ED Nurse Care Team Related Persons Name: BO PAYAN Address: [place] [phone] Name: BO PAYAN Address: Home [address] [place] [phone] Name: BO BOOKER Address: Home
--- OUTSIDE RECORDS SUMMARY | 2022-11-20 17:51 | XMS_ITS | Continuity of Care Document ---
Author Name Unknown Organization [facility] Address Unknown Care Team Providers Care Cyber Crime Investigator Name Role Phone RICARDO RUTH Primary Care Physician Encounter Date(s): 09/07/21 - 09/08/[address] [address] Encounter Diagnosis Abdominal pain, acute(Discharge Diagnosis) - 09/08/21 Discharge Disposition: Home or Self Care Attending Physician: NAYLA PRUETT MD Admitting Physician: NAYLA PRUETT MD Allergies, Adverse Reactions, Alerts Substance Reaction Severity Status penicillin Active droperidol Active Latex Active Haldol Active Compazine Muscle cramps Active Toradol Hives Active Medications Bentyl 20 mg oral tablet 20 mg = 1 tab(s), Oral, QID, # 28 tab(s), 0 Refill(s), Pharmacy: [facility], 165.1, cm, 03/30/21 18:41:00 EST, Height/Length Dosing, 90.7, kg, 03/30/21 18:41:00 EST, Weight Dosing Start Date: 03/30/21 Stop Date: 04/06/21 Status: Ordered Bentyl 20 mg oral tablet 20 mg = 1 tab(s), Oral, QID, # 28 tab(s), 0 Refill(s), Pharmacy: [facility], 163, cm, 02/03/21 [...] intramuscular injection, extended release 3.75 mg, IM, [id number], # 1 ea, 0 Refill(s) Start Date: 04/05/19 Status: Ordered Mirena 0 Refill(s) Start Date: 07/16/19 Status: Ordered montelukast 0 Refill(s) Start Date: 03/30/21 Status: Ordered norethindrone 5 mg oral tablet 0 Refill(s) Start Date: 05/18/19 Status: Ordered ondansetron 4 mg oral tablet, disintegrating 4 mg = 1 tab(s), Oral, q6hr, # 10 tab(s), 0 Refill(s), Pharmacy: [facility] #[id number], 162, cm, 09/01/19 10:41:00 EDT, Height/Length Dosing, 73, kg, 09/01/19 10:41:00 EDT, Weight Dosing Start Date: 09/01/19 Stop Date: 09/04/19 Status: Ordered Phenergan 25 mg rectal suppository = 1 suppository(ies), KS, q4hr, PRN PRN: as needed for nausea/vomiting, # 12 suppository(ies), 0 Refill(s), Pharmacy: [facility] #[id number], 162, cm, 05/18/19 18:42:47 EST, Height/Length Dosing, [...] nausea/vomiting, # 30 tab(s), 0 Refill(s), Pharmacy: [facility] #[id number], 163, cm, 07/29/19 11:21:00 EDT, Height/Length Dosing, 68.1, kg, 07/29/19 11:21:00 EDT, Weight Dosing Start Date: 07/29/19 Status: Ordered Mental Status 09/07/21 Orientation Assessment Oriented x 4 Problem List [...] Date .Estimated Glomerular Filtration Rate Auto Differential 09/07/21 CBC Auto Diff reflex Manual Diff 09/07/21 Comprehensive Metabolic Panel 09/07/21 HCG Quantitative 09/07/21 Lipase Level 09/07/21 Most recent to oldest [Reference Range]: 1 AGAP 10 *NA* (09/07/21 10:00 PM) A/G Ratio 1.3 *NA* (09/07/21 10:00 PM) BUN/Creat Ratio 19 *NA* (09/07/21 10:00 PM) RBC [4.00-5.20 x10(6)/mcL] 4.67 x10(6)/m cL (09/07/21 10:00 PM) RDW [11.5-14.5 %] 14.1 % (09/07/21 10:00 PM) Sodium Level [136-145 mmol/L] 139 mmol/L (09/07/21 10:00 PM) Total Protein [6.4-8.2 gm/dL] 8.6 gm/dL *HI* (09/07/21 10:00 PM) AST [15-37 IU/L] 29 IU/L (09/07/21 10:00 PM) Bili Total [0.20-1.00 mg/dL] 0.56 mg/dL (09/07/21 10:00 PM) CO2 [21-32 mmol/L] 27 mmol/L (09/07/21 10:00 PM) Albumin Level [3.4-5.0 gm/dL] 4.8 gm/dL (09/07/21 10:00 PM) Alk Phos [48-129 unit/L] 58 unit/L (09/07/21 10:00 PM) ALT [13-61 IU/L] 39 IU/L (09/07/21 10:00 PM) Hct [36.0-46.0 %] 38.8 % (09/07/21 10:00 PM) Hgb [12.0-15.0 gm/dL] 11.7 gm/dL *LOW* (09/07/21 10:00 PM) Lipase Lvl [73-393 IU/L] 119 IU/L (09/07/21 10:00 PM) MCH [26.0-34.0 pg] 25.1 pg *LOW* (09/07/21 10:00 PM) MCHC [31.0-37.0 gm/dL] 30.2 gm/dL *LOW* (09/07/21 10:00 PM) MCV [80-100 fL] 83 fL (09/07/21 10:00 PM) MPV [9.2-12.7 fL] 11.5 fL (09/07/21 10:00 PM) Glucose Level [74-106 mg/dL] 86 mg/dL (09/07/21 10:00 PM) Platelet [150-350 x10(3)/mcL] 260 x10(3) /mcL (09/07/21 10:00 PM) Potassium Level [3.5-5.1 mmol/L] 3.1 mmo l/L *LOW* (09/07/21 10:00 PM) WBC [4.5-11.0 x10(3)/mcL] 7.2 x10(3)/mcL (09/07/21 10:00 PM) BUN [7-18 mg/dL] 15 mg/dL (09/07/21 10:00 PM) Calcium Level [8.5-10.1 mg/dL] 9.1 mg/dL (09/07/21 10:00 PM) Chloride [98-107 mmol/L] 105 mmol/L (09/07/21 10:00 PM) hCG Qnt [1-3 mIU/mL] <1 mIU/mL (09/07/21 10:00 PM) eGFR AA >60 mL/min/1.73 m2 *NA* (09/07/21 10:00 PM) eGFR BRUNO >60 mL/min/1.73 m2 *NA* (09/07/21 10:00 PM) Neutrophil Absolute [1.50-7.80 x10(3)/mc L] 3.69 x10(3)/mcL (09/07/21 10:00 PM) Lymphocyte Absolute [1.10-4.80 x10(3)/mc L] 2.76 x10(3)/mcL (09/07/21 10:00 PM) Monocyte Absolute 0.49 x10(3)/mcL *NA* (09/07/21 10:00 PM) Eosinophil Absolute 0.15 x10(3)/mcL *NA* (09/07/21 10:00 PM) Basophil Absolute 0.08 x10(3)/mcL *NA* (09/07/21 10:00 PM) Imm Gran Absolute 0.02 /mcL *NA* (09/07/21 10:00 PM) NRBC % [0.0-0.2 %] 0.0 % (09/07/21 10:00 PM) Osmol Calculated 278 mOsm/kg *NA* (09/07/21 10:00 PM) Eosinophil Auto [1.0-4.0 %] 2.1 % (09/07/21 10:00 PM) Immature Granulocyte Auto 0 % *NA* (09/07/21 10:00 PM) Lymphocyte Auto [24.0-44.0 %] 38.4 % (09/07/21 10:00 PM) Monocyte Auto [2.0-11.0 %] 6.8 % (09/07/21 10:00 PM) Neutrophil Auto [31.0-76.0 %] 51.3 % (09/07/21 10:00 PM) Basophil Auto [0.0-2.0 %] 1.1 % (09/07/21 10:00 PM) hCG POC Negative (09/07/21 10:07 PM) Creatinine [0.6-1.3 mg/dL] 0.8 mg/dL (09/07/21 10:00 PM) Leukocytes Urine Dipstick Negative (09/07/21 10:07 PM) Nitrite Urine Dipstick Negative (09/07/21 10:07 PM) Urobilinogen Urine Dipstick 0.2 mg/dl (09/07/21 10:07 PM) Protein Urine Dipstick 1+ (30 mg/dl) (09/07/21 10:07 PM) pH Urine Dipstick 6 (09/07/21 10:07 PM) Blood Urine Dipstick Negative (09/07/21 10:07 PM) Specific [place] Urine Dipstick Greater than 1.030 (09/07/21 10:07 PM) Ketones Urine Dipstick Negative (09/07/21 10:07 PM) Bilirubin Urine Dipstick Negative (09/07/21 10:07 PM) Glucose Urine Dipstick Negative (09/07/21 10:07 PM) Urine Color Urine Dipstick Yellow (09/07/21 10:07 PM) Urine Appearance Urine Dipstick Clear (09/07/21 10:07 PM) Radiology Reports * Exam Date Time Procedure Performing Provider Status 09/08/21 12:28 AM US Transvaginal Non-OB M odified US Transvaginal MANAGER WEB APPLICATION- [id number] PROCEDURE: US Transvaginal MANAGER WEB APPLICATION- [id number] CLINICAL INDICATION: pelvic pain, vaginal bleeding TECHNIQUE: Transvaginal grayscale ultrasound imaging was performed with color and spectral Doppler. Contracts Representative images were submitted for interpretation. COMPARISON: 08/08/2021 FINDINGS: Endometrium: There is a apparent small amount of fluid or a small cystic structure within the endometrium at the fundus measuring 5 x 4 x 4 mm. Endometrial thickness is normal measuring 3 mm. Incidental arcuate uterus. Right ovary: The right ovary measures 2.2 x 1.4 x 1.2 cm with volume of 2 mL. There is normal flow. Left ovary: Not clearly visualized. A apparent small cystic structure was identified superior to the fundus. The housekeeping cleaner questioned whether this represents a follicle within a small, partially obscured left ovary measuring 1.1 x 0.9 x 0.8 cm with volume of 0.4 mL. No midline pelvic fluid collections. IMPRESSION: 1. No acute sonographic abnormality identified. 2. The left ovary is not clearly visualized as detailed. 3. Small amount of fluid or small cystic change of the endometrium at the fundus measuring 5 mm in diameter. Electronically Signed by: Saw Cardenas MD 09/08/2021 7:32 AM * Exam Date Time Procedure Performing Provider Status 09/08/21 12:28 AM US Art/Vein Abd/Pelv is/Scrotal Limited Auth (Verified) US Doppler Abd/Pelvic Limited- [id number] PROCEDURE: US Doppler Abd/Pelvic Limited- [id number] & US Transvaginal MANAGER WEB APPLICATION- [id number] CLINICAL INDICATION: pelvic pain, vaginal bleeding TECHNIQUE: Transvaginal grayscale ultrasound imaging was performed with color and spectral Doppler. Contracts Representative images were submitted for interpretation. COMPARISON: 08/08/2021 FINDINGS: Endometrium: There is a apparent small amount of fluid or a small cystic structure within the endometrium at the fundus measuring 5 x 4 x 4 mm. Endometrial thickness is normal measuring 3 mm. Incidental arcuate uterus. Right ovary: The right ovary measures 2.2 x 1.4 x 1.2 cm with volume of 2 mL. There is normal flow. Left ovary: Not clearly visualized. A apparent small cystic structure was identified superior to the fundus. The housekeeping cleaner questioned whether this represents a follicle within a small, partially obscured left ovary measuring 1.1 x 0.9 x 0.8 cm with volume of 0.4 mL. No midline pelvic fluid collections. IMPRESSION: 1. No acute sonographic abnormality identified. 2. The left ovary is not clearly visualized as detailed. 3. Small amount of fluid or small cystic change of the endometrium at the fundus measuring 5 mm in diameter. Electronically Signed by: Saw Cardenas MD 09/08/2021 8:25 AM Software Configuration Engineer: LL Vital Signs Most recent to oldest [Reference Range]: 1 2 Temperature Oral [35.8-37.3 DegC] 36.8 D egC (09/07/21 10:11 PM) 36.6 DegC (09/07/21 4:26 PM) Peripheral Pulse Rate [60-100 bpm] 62 bp m (09/07/21 10:11 PM) 66 bpm (09/07/21 4:26 PM) Respiratory Rate [14-20 br/min] 18 br/mi n (09/07/21 10:11 PM) 18 br/min (09/07/21 4:26 PM) Blood Pressure 117/69mmHg (09/07/21 10:11 PM) 114/69mmHg (09/07/21 4:26 PM) Social History Social History Type Response Sex Female Hospital Discharge Instructions Patient Education 09/08/2021 01:34:40 [place] Opiate Rx (Custom) 09/08/2021 01:34:40 z - [facility] d/c (JLHARRIS) An Affiliate of [address] [address] A Message from your Emergency Room Doctor: You were seen today in the emergency department for abnormal vaginal bleeding and abdominal pain. You had lab work and an ultrasound performed today, all of which was reassuring and showed no emergent findings or explanations for your pain. You were given pain medication here in the ER in addition to 3 oxycodone to use as needed for pain control. However, further pain control should be arranged by your primary care provider or your slip maker. We strongly recommend that you call your primary care provider or slip maker to set up a follow-up appointment as soon as possible and discuss if further pain control is needed. If it anytime you develop any new or concerning symptoms please return to the ER immediately for reassessment. Have a nice day, Phil Adhikari MD Note * Event Display: US Transvaginal Non-OB Authored Date: PROCEDURE: US Transvaginal MANAGER WEB APPLICATION- [id number] CLINICAL INDICATION: pelvic pain, vaginal bleeding TECHNIQUE: Transvaginal grayscale ultrasound imaging was performed with color and spectral Doppler. Contracts Representative images were submitted for interpretation. COMPARISON: 08/08/2021 FINDINGS: Endometrium: There is a apparent small amount of fluid or a small cystic structure within the endometrium at the fundus measuring 5 x 4 x 4 mm. Endometrial thickness is normal measuring 3 mm. Incidental arcuate uterus. Right ovary: The right ovary measures 2.2 x 1.4 x 1.2 cm with volume of 2 mL. There is normal flow. Left ovary: Not clearly visualized. A apparent small cystic structure was identified superior to the fundus. The housekeeping cleaner questioned whether this represents a follicle within a small, partially obscured left ovary measuring 1.1 x 0.9 x 0.8 cm with volume of 0.4 mL. No midline pelvic fluid collections. IMPRESSION: 1. No acute sonographic abnormality identified. 2. The left ovary is not clearly visualized as detailed. 3. Small amount of fluid or small cystic change of the endometrium at the fundus measuring 5 mm in diameter. Electronically Signed by: Saw Cardenas MD 09/08/2021 7:32 AM * Event Display: US Art/Vein Abd/Pelvis/Scrotal Limited Authored Date: PROCEDURE: US Doppler Abd/Pelvic Limited- [id number] & US Transvaginal MANAGER WEB APPLICATION- [id number] CLINICAL INDICATION: pelvic pain, vaginal bleeding TECHNIQUE: Transvaginal grayscale ultrasound imaging was performed with color and spectral Doppler. Contracts Representative images were submitted for interpretation. COMPARISON: 08/08/2021 FINDINGS: Endometrium: There is a apparent small amount of fluid or a small cystic structure within the endometrium at the fundus measuring 5 x 4 x 4 mm. Endometrial thickness is normal measuring 3 mm. Incidental arcuate uterus. Right ovary: The right ovary measures 2.2 x 1.4 x 1.2 cm with volume of 2 mL. There is normal flow. Left ovary: Not clearly visualized. A apparent small cystic structure was identified superior to the fundus. The housekeeping cleaner questioned whether this represents a follicle within a small, partially obscured left ovary measuring 1.1 x 0.9 x 0.8 cm with volume of 0.4 mL. No midline pelvic fluid collections. IMPRESSION: 1. No acute sonographic abnormality identified. 2. The left ovary is not clearly visualized as detailed. 3. Small amount of fluid or small cystic change of the endometrium at the fundus measuring 5 mm in diameter. Electronically Signed by: Saw Cardenas MD 09/08/2021 8:25 AM Software Configuration Engineer: Care Team Care Team Personnel Name: RICARDO RUTH, Member Role: Primary Care Physician Address: [address] [place] [address]- Care Team Related Persons Name: BO PAYAN [address] [place], [place] [phone] Name: BO PAYAN [address] [place], [place] [phone] Name: BO BOOKER
--- OUTSIDE RECORDS SUMMARY | 2022-11-20 17:51 | XMS_ITS | Continuity of Care Document ---
Author Name Unknown Organization [facility] Address Unknown Care Team Providers Care Reactor Operator Name Role Phone No Local PCP, No Local PCP Primary Care Physicia n Unavailable Encounter Date(s): 01/26/22 - 01/26/22 [facility] [address] [place], [place] [address] Discharge Disposition: Home or Self Care Allergies, Adverse Reactions, Alerts Substance Reaction Severity [...] # 56 tab(s), 0 Refill(s), Pharmacy: [facility], 166.74, cm, 01/20/2217:15:00 EDT, Height/Length Dosing, [...] Oral, qHS Start Date: 01/21/22 Status: Ordered Problem List Condition Effective Dates [...] 30-MAR-2021 22:54:00 EST tested positive for MRSA. Social History Social History Type Response Tobacco Tobacco Use: Denies. Sex Female Care Team Care Team Personnel Name: No Local PCP No Local PCP, Med Service: NO LOCAL PCP Member Role: Primary Care Physician Care Team Related Persons Name: BO PAYAN Address: Home [address] [place] [phone] Name: BO PAYAN Address: Home [address] [place] [phone] Name: BO BOOKER Address: Home
--- OUTSIDE RECORDS SUMMARY | 2022-11-20 17:51 | XMS_ITS | Continuity of Care Document ---
Author Name Unknown Organization [facility] Address Unknown Care Team Providers Care It Audit Manager Name Role Phone No Local PCP, No Local PCP Primary Care Physicia n Unavailable Encounter Date(s): 01/26/22 - 01/26/22 [facility] [address], [place] [address] Discharge Disposition: Home or Self Care [...] BID, # 56 tab(s), 0 Refill(s), Pharmacy: [facility], 166.74, cm, 01/20/2217:15:00 EDT, [...] Related Persons Name: BO PAYAN Address: Home [address] [place] [phone] Name: BO PAYAN Address: Home [address] [place] [phone] Name: BO BOOKER Address: Home
--- OUTSIDE RECORDS SUMMARY | 2022-11-20 17:51 | XMS_ITS | Continuity of Care Document ---
Author Name Unknown Organization [facility] Address Unknown Care Team Providers Care Laborer Prestressed Concrete Name Role Phone No Local PCP, No Local PCP Primary Care Physicia n Unavailable Encounter Date(s): 03/04/22 - 03/05/22 [facility] [address] [place], [place] [address] Discharge Disposition: Home or Self Care [...] # 56 tab(s), 0 Refill(s), Pharmacy: [facility], 166.74, cm, 01/20/2217:15:00 EDT, [...] Related Persons Name: BO PAYAN Address: Home [address] [place] [phone] Name: BO PAYAN Address: Home [address] [place], [place] [phone] Name: BO BOOKER Address: [place]
--- OUTSIDE RECORDS SUMMARY | 2022-11-20 17:51 | XMS_ITS | Continuity of Care Document ---
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 Name Role Phone No Local PCP, No Local PCP Primary Care Physicia n Unavailable Encounter Date(s): 11/16/21 - 11/17/21 [facility] [address] [place], [place] [address] Encounter Diagnosis Gardnerella vaginalis infection(Discharge Diagnosis) - 11/17/21 Discharge Disposition: Home or Self Care Attending Physician: MARGY HENDRICKS MD Admitting Physician: MARGY HENDRICKS MD Allergies, Adverse Reactions, Alerts Substance Reaction Severity Status penicillin Active droperidol Active Latex Active Haldol Active Compazine Muscle cramps Active Toradol Hives Active Medications Bentyl 20 mg oral tablet 20 mg = 1 tab(s), Oral, QID, # 28 tab(s), 0 Refill(s), Pharmacy: [id number], 165.1, cm, 03/30/21 18:41:00 EST, Height/Length Dosing, 90.7, kg, 03/30/21 18:41:00 EST, Weight Dosing Start Date: 03/30/21 Stop Date: 04/06/21 Status: Ordered Bentyl 20 mg oral tablet 20 mg = 1 tab(s), Oral, QID, # 28 tab(s), 0 Refill(s), Pharmacy: [id number], 163, cm, 02/03/21 15:44:00 [...] intramuscular injection, extended release 3.75 mg, IM, [id number], # 1 ea, 0 Refill(s) Start Date: 04/05/19 Status: Ordered metroNIDAZOLE 500 mg oral tablet 500 mg = 1 tab(s), Oral, BID, X 7 day(s), # 14 tab(s), 0 Refill(s), Pharmacy: [id number], 167, cm, 11/16/21 23:18:00 EDT, Height/Length Dosing, 80, kg, 11/16/21 23:18:00 EDT, Weight Dosing Start Date: 11/17/21 Stop Date: 11/24/21 Status: Ordered Mirena 0 Refill(s) Start Date: 07/16/19 Status: Ordered montelukast 0 Refill(s) Start Date: 03/30/21 Status: Ordered norethindrone 5 mg oral tablet 0 Refill(s) Start Date: 05/18/19 Status: Ordered ondansetron 4 mg oral tablet, disintegrating 4 mg = 1 tab(s), Oral, q6hr, # 10 tab(s), 0 Refill(s), [id number], 162, cm, 09/01/19 10:41:00 EDT, Height/Length Dosing, 73, kg, 09/01/19 10:41:00 EDT, Weight Dosing Start Date: 09/01/19 Stop Date: 09/04/19 Status: Ordered Phenergan 25 mg rectal suppository = 1 suppository(ies), MT, q4hr, PRN PRN: as needed for nausea/vomiting, # 12 suppository(ies), 0 Refill(s), [id number], 162, cm, 05/18/19 18:42:47 EST, Height/Length Dosing, [...] nausea/vomiting, # 30 tab(s), 0 Refill(s), Pharmacy: [facility] #[id number], 163, cm, 07/29/19 11:21:00 EDT, Height/Length Dosing, 68.1, kg, 07/29/19 11:21:00 EDT, Weight Dosing Start Date: 07/29/19 Status: Ordered Mental Status 11/16/21 Orientation Assessment Oriented x 4 Problem List [...] for MRSA. Results Laboratory List Name Date Lactate Whole Blood 11/16/21 .Estimated Glomerular Filtration Rate 11/16/21 Auto Differential 11/16/21 CBC Auto Diff reflex Manual Diff 11/16/21 Comprehensive Metabolic Panel 11/16/21 Most recent to oldest [Reference Range]: 1 AGAP 9 *NA* (11/16/21 11:45 PM) A/G Ratio 1.0 *NA* (11/16/21 11:45 PM) BUN/Creat Ratio 11 *NA* (11/16/21 11:45 PM) RBC [4.00-5.20 x10(6)/mcL] 3.36 x10(6)/m cL *LOW* (11/16/21 11:45 PM) RDW [11.5-14.5 %] 14.8 % *HI* (11/16/21 11:45 PM) Sodium Level [136-145 mmol/L] 142 mmol/L (11/16/21 11:45 PM) Total Protein [6.4-8.2 gm/dL] 7.2 gm/dL (11/16/21 11:45 PM) AST [15-37 IU/L] 22 IU/L (11/16/21:45 PM) Bili Total [0.20-1.00 mg/dL] 0.39 mg/dL (11/16/21 11:45 PM) CO2 [21-32 mmol/L] 27 mmol/L (11/16/21:45 PM) Albumin Level [3.4-5.0 gm/dL] 3.6 gm/dL (11/16/21:45 PM) Alk Phos [48-129 unit/L] 59 unit/L (11/16/21:45 PM) ALT [13-61 IU/L] 24 IU/L (11/16/21:45 PM) Hct [36.0-46.0 %] 27.6 % *LOW* (11/16/21 11:45 PM) Hgb [12.0-15.0 gm/dL] 8.8 gm/dL *LOW* (11/16/21 11:45 PM) Lactic Acid Level [0.5-2.0 mmol/L] 1.2 m mol/L (11/16/21 11:50 PM) MCH [26.0-34.0 pg] 26.2 pg (11/16/21:45 PM) MCHC [31.0-37.0 gm/dL] 31.9 gm/dL (11/16/21 11:45 PM) MCV [80-100 fL] 82 fL (11/16/21:45 PM) MPV [9.2-12.7 fL] 10.9 fL (11/16/21:45 PM) Glucose Level [74-106 mg/dL] 98 mg/dL (11/16/21 11:45 PM) Platelet [150-350 x10(3)/mcL] 316 x10(3) /mcL (11/16/21 11:45 PM) Potassium Level [3.5-5.1 mmol/L] 3.4 mmo l/L *LOW* (11/16/21 11:45 PM) WBC [4.5-11.0 x10(3)/mcL] 5.0 x10(3)/mcL (11/16/21 11:45 PM) BUN [7-18 mg/dL] 9 mg/dL (11/16/21 11:45 PM) Calcium Level [8.5-10.1 mg/dL] 8.7 mg/dL (11/16/21 11:45 PM) Chloride [98-107 mmol/L] 109 mmol/L *HI* (11/16/21 11:45 PM) eGFR AA >60 mL/min/1.73 m2 *NA* (11/16/21 11:45 PM) eGFR BRUNO >60 mL/min/1.73 m2 *NA* (11/16/21 11:45 PM) Neutrophil Absolute [1.50-7.80 x10(3)/mc L] 2.71 x10(3)/mcL (11/16/21 11:45 PM) Lymphocyte Absolute [1.10-4.80 x10(3)/mc L] 1.58 x10(3)/mcL (11/16/21 11:45 PM) Monocyte Absolute 0.42 x10(3)/mcL *NA* (11/16/21 11:45 PM) Eosinophil Absolute 0.22 x10(3)/mcL *NA* (11/16/21 11:45 PM) Basophil Absolute 0.06 x10(3)/mcL *NA* (11/16/21 11:45 PM) Imm Gran Absolute 0.02 /mcL *NA* (11/16/21 11:45 PM) NRBC % [0.0-0.2 %] 0.0 % (11/16/21 11:45 PM) Osmol Calculated 282 mOsm/kg *NA* (11/16/21 11:45 PM) Eosinophil Auto [1.0-4.0 %] 4.4 % *HI* (11/16/21 11:45 PM) Immature Granulocyte Auto 0 % *NA* (11/16/21 11:45 PM) Lymphocyte Auto [24.0-44.0 %] 31.5 % (11/16/21 11:45 PM) Monocyte Auto [2.0-11.0 %] 8.4 % (11/16/21 11:45 PM) Neutrophil Auto [31.0-76.0 %] 54.1 % (11/16/21 11:45 PM) Basophil Auto [0.0-2.0 %] 1.2 % (11/16/21 11:45 PM) Creatinine [0.6-1.3 mg/dL] 0.8 mg/dL (11/16/21 11:45 PM) Orders for Microbiology Reports Name Date GTY Probe 11/17/21 Microbiology Reports TEST:GTY Probe1 STATUS:Auth (Verified) BODY SITE: SOURCE:Vag COLLECTED DATE/TIME:11/17/21 1:00 AM FINAL REPORT Gardnerella vaginalis probe: Positive Mary species probe: Negative Trichomonas species probe: Negative INTERPRETIVE DATA 1Gardnerella is an indicator organism of the condition Bacterial Vaginosis. While this organism can be present in normal vaginal specimens, only clinically significant concentrations of Gardnerella are detected by the [employer]LE DATABASE MANAGER III. As with all laboratory tests, results should be evaluated with clinical signs and symptoms. Radiology Reports * Exam Date Time Procedure Performing Provider Status 11/17/21 1:[address] Abdomen and pelvis with contrast- [address] ABD PEL W 04495 PROCEDURE: CT ABD PEL W 66050 CLINICAL INDICATION: post operative pelvic pain COMPARISON: 02/03/2021 TECHNIQUE: Standard CT of the Abdomen and Pelvis was performed with contrast. Dose reduction techniques including automated exposure control were utilized. Contrast (LOCM) 350-399 100 Cubic Centimeters Intravenous 11/17/2021 01:22 AM DLP DOSE:415.73 (mGy.cm) FINDINGS: No significant abnormality identified in the included images of the lower chest. The liver is unremarkable without focal lesion. The gallbladder is unremarkable. No abnormality identified in the pancreas. No abnormality identified in the spleen. No abnormality identified in either adrenal gland. No significant parenchymal abnormality identified in either kidney. There is excreted contrast within the bladder. The uterus is present. There is no dilated bowel. No enlarged lymph nodes by CT size criteria. Abdominal aorta is normal in caliber. No concerning bony lesion identified. IMPRESSION: No significant CT abnormality. Electronically Signed by: Saw Cardenas MD 11/17/2021 7:52 AM Vital Signs Most recent to oldest [Reference Range]: 1 Temperature Oral [35.8-37.3 DegC] 37 Deg C (11/16/21 11:18 PM) Peripheral Pulse Rate [60-100 bpm] 90 bp m (11/16/21 11:18 PM) Respiratory Rate [14-20 br/min] 18 br/mi n (11/16/21 11:18 PM) Blood Pressure 132/76mmHg (11/16/21 11:18 PM) Social History Social History Type Response Sex Female Hospital Discharge Instructions Patient Education 11/17/2021 02:35:59 Bacterial Vaginosis Bacterial Vaginosis Bacterial vaginosis is a vaginal infection that occurs when the normal balance of bacteria in the vagina is disrupted. It results from an overgrowth of certain bacteria. This is the most common vaginal infection among women ages 15???44. Because bacterial vaginosis increases your risk for STIs (sexually transmitted infections), gettingtreated can help reduce your risk for chlamydia, gonorrhea, herpes, and HIV (human immunodeficiencyvirus). Treatment is also important for preventing complications in women, because this condition can cause an early (premature) delivery. What are the causes? This condition is caused by an increase in harmful bacteria that are normally present in small amounts in the vagina. However, the reason that the condition develops is not fully understood. What increases the risk? The following factors may make you more likely to develop this condition: ??? Having a new sexual partner or multiple sexual partners. ??? Having unprotected sex. ??? Douching. ??? Having an intrauterine device (IUD). ??? Smoking. ??? Drug and alcohol abuse. ??? Taking certain antibiotic medicines. ??? Being . You cannot get bacterial vaginosis from toilet seats, bedding, swimming pools, or contact with objects around you. What are the signs or symptoms? Symptoms of this condition include: ??? Paula or white vaginal discharge. The discharge can also be watery or foamy. ??? A fish-like odor with discharge, especially after sexual intercourse or during menstruation. ??? Itching in and around the vagina. ??? Burning or pain with urination. Some women with bacterial vaginosis have no signs or symptoms. How is this diagnosed? This condition is diagnosed based on: ??? Your medical history. ??? A physical exam of the vagina. ??? Testing a sample of vaginal fluid under a microscope to look for a large amount of bad bacteriaor abnormal cells. Your health care provider may use a cotton swab or a small wooden spatula to collect the sample. How is this treated? This condition is treated with antibiotics. These may be given as a pill, a vaginal cream, or a medicine that is put into the vagina (suppository). If the condition comes back after treatment, a second round of antibiotics may be needed. Follow these instructions at home: Medicines ??? Take nylg-uqp-usgyyxp and prescription medicines only as told by your health care provider. ??? Take or use your antibiotic as told by your health care provider. Do not stop taking or using the antibiotic even if you start to feel better. General instructions ??? If you have a female sexual partner, tell her that you have a vaginal infection. She should seeher health care provider and be treated if she has symptoms. If you have a male sexual partner, he does not need treatment. ??? During treatment: ??? Avoid sexual activity until you finish treatment. ??? Do not douche. ??? Avoid alcohol as directed by your health care provider. ??? Avoid as directed by your health care provider. ??? Drink enough water and fluids to keep your urine clear or pale yellow. ??? Keep the area around your vagina and rectum clean. ??? Wash the area daily with warm water. ??? Wipe yourself from front to back after using the toilet. ??? Keep all follow-up visits as told by your health care provider. This is important. How is this prevented? Do not douche. ??? Wash the outside of your vagina with warm water only. ??? Use protection when having sex. This includes latex condoms and dental dams. ??? Limit how many sexual partners you have. To help prevent bacterial vaginosis, it is best to have sex with just one partner (monogamous). ??? Make sure you and your sexual partner are tested for STIs. ??? Wear cotton or cotton-lined underwear. ??? Avoid wearing tight pants and pantyhose, especially during summer. ??? Limit the amount of alcohol that you drink. ??? Do not use any products that contain nicotine or tobacco, such as cigarettes and e-cigarettes. If you need help quitting, ask your health care provider. ??? Do not use illegal drugs. Where to find more information ??? Centers for Disease Control and Prevention: www.cdc.gov/std ??? [place] [employer] (PASTOR): www.ashastd.org ??? U.S. Department of Health and Human Services, Office on Women's Health: www.womenshealth.gov/ or https://www.womenshealth.gov/a-z-topics/bacterial-vaginosis Contact a health care provider if: ??? Your symptoms do not improve, even after treatment. ??? You have more discharge or pain when urinating. ??? You have a fever. ??? You have pain in your abdomen. ??? You have pain during sex. ??? You have vaginal bleeding between periods. Summary ??? Bacterial vaginosis is a vaginal infection that occurs when the normal balance of bacteria in the vagina is disrupted. ??? Because bacterial vaginosis increases your risk for STIs (sexually transmitted infections), getting treated can help reduce your risk for chlamydia, gonorrhea, herpes, and HIV (human immunodeficiency virus). Treatment is also important for preventing complications in women, because the condition can cause an early (premature) delivery. ??? This condition is treated with antibiotic medicines. These may be given as a pill, a vaginal cream, or a medicine that is put into the vagina (suppository). This information is not intended to replace advice given to you by your health care provider. Make sure you discuss any questions you have with your health care provider. Document Revised: 04/13/2018 Document Reviewed: 01/14/2017 [facility] Patient Education ?? [address] Abdomen and Pelvis W contrast IV * Event Display: CT Abdomen and pelvis with contrast- 741 Authored Date: PROCEDURE: CT ABD PEL W 69227 CLINICAL INDICATION: post operative pelvic pain COMPARISON: 02/03/2021 TECHNIQUE: Standard CT of the Abdomen and Pelvis was performed with contrast. Dose reduction techniques including automated exposure control were utilized. Contrast (LOCM) 350-399 100 Cubic Centimeters Intravenous 11/17/2021 01:22 AM DLP DOSE:415.73 (mGy.cm) FINDINGS: No significant abnormality identified in the included images of the lower chest. The liver is unremarkable without focal lesion. The gallbladder is unremarkable. No abnormality identified in the pancreas. No abnormality identified in the spleen. No abnormality identified in either adrenal gland. No significant parenchymal abnormality identified in either kidney. There is excreted contrast within the bladder. The uterus is present. There is no dilated bowel. No enlarged lymph nodes by CT size criteria. Abdominal aorta is normal in caliber. No concerning bony lesion identified. IMPRESSION: No significant CT abnormality. Electronically Signed by: Saw Cardenas MD 11/17/2021 7:52 AM Care Team Care Team Personnel Name: No Local PCP No Local PCP, [facility] Service: NO LOCAL PCP Member Role: Primary Care Physician Care Team Related Persons Name: BO PAYAN Address: [address] [phone] Name: BO PAYAN Address: [address] [phone] Name: BO BOOKER
--- OUTSIDE RECORDS SUMMARY | 2022-11-20 17:51 | XMS_ITS | Continuity of Care Document ---
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 [address] [place], [place] [address] Encounter Diagnosis Pelvic pain(Discharge Diagnosis) - 10/25/22 Discharge Disposition: Home or Self Care Attending Physician: JODI HARMON MD Admitting Physician: JODI HARMON MD Allergies, Adverse Reactions, Alerts Substance Reaction Severity Status penicillin Anaphylactic reaction Severe Active droperidol Vomiting Tongue swelling Shaking all over Tetanus Hives Severe Active Latex Hives Mild Active Haldol Anaphylactic reaction Severe Active Compazine Tetanus Vomiting Tongue swelling Shaking all over Hives Severe Active Reglan Active Toradol Hives Mild Active Phenergan Active Medications Albuterol (Eqv-ProAir HFA) 90 mcg/inh inhalation aerosol 2 puff(s), Inhaled, q4hr, PRN PRN as needed for wheezing Start Date: 01/21/22 Status: Ordered Benadryl 50 mg, PRN with zofran for hives, 0 Refill(s) Start Date: 10/25/22 Status: Ordered Bentyl 20 mg oral tablet 20 mg = 1 tab(s), Oral, QID, # 28 tab(s), 0 Refill(s), Pharmacy: [facility] #[id number], 167.6, cm, 07/27/22 18:15:00 EDT, Height/Length Dosing, 72.5, kg, 07/27/22 18:15:00 EDT, Weight Dosing Start Date: 07/28/22 Stop Date: 08/04/22 Status: Ordered Dilaudid 2 mg oral tablet 1-2 tab, every 4-6 hours PRN, 0 Refill(s) Start Date: 10/25/22 Status: Ordered Extra Strength Tylenol Menstrual 2 [...] tablet 10 mg = 2 tab(s), Oral, BID, take at onset of [...] Start Date: 01/21/22 Status: Ordered Mental Status 10/25/22 Orientation Assessment Oriented x 4 Problem List Condition Confirmation Course Effective Dates Status H ealth Status Informant Anemia Confirmed Active Anxiety Confirmed Active Asthma Confirmed Active Depression Confirmed Active Endometriosis stage 4 Confirmed Active MRSA 1, 2, 3 Confirmed [...] 30-MAR-2021 22:54:00 EST tested positive for MRSA. 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 Completed endrometriosis surgery & tumor removal Completed Uterine D&C and ablalion Completed Results Laboratory List Name Date .Estimated Glomerular Filtration Rate CBC 10/25/22 Comprehensive Metabolic Panel 10/25/22 HCG Quantitative 10/25/22 Most recent to oldest [Reference Range]: 1 AGAP 9 *NA* (10/25/22 8:28 PM) A/G Ratio 1.1 *NA* (10/25/22 8:28 PM) BUN/Creat Ratio 11 *NA* (10/25/22 8:28 PM) RBC [4.00-5.20 x10(6)/mcL] 3.91 x10(6)/m cL *LOW* (10/25/22 8:28 PM) RDW [11.5-14.5 %] 18.3 % *HI* (10/25/22 8:28 PM) Sodium Level [136-145 mmol/L] 140 mmol/L (10/25/22 8:28 PM) Total Protein [6.4-8.2 gm/dL] 7.3 gm/dL (10/25/22 8:28 PM) AST [15-37 IU/L] 26 IU/L (10/25/22 8:28 PM) Bili Total [0.20-1.00 mg/dL] 0.27 mg/dL (10/25/22 8:28 PM) CO2 [21-32 mmol/L] 27 mmol/L (10/25/22 8:28 PM) Albumin Level [3.4-5.0 gm/dL] 3.8 gm/dL (10/25/22 8:28 PM) Alk Phos [48-129 unit/L] 56 unit/L (10/25/22 8:28 PM) ALT [13-61 IU/L] 33 IU/L (10/25/22 8:28 PM) Hct [36.0-46.0 %] 30.3 % *LOW* (10/25/22 8:28 PM) Hgb [12.0-15.0 gm/dL] 9.3 gm/dL *LOW* (10/25/22 8:28 PM) MCH [26.0-34.0 pg] 23.8 pg *LOW* (10/25/22 8:28 PM) MCHC [31.0-37.0 gm/dL] 30.7 gm/dL *LOW* (10/25/22 8:28 PM) MCV [80-100 fL] 78 fL *LOW* (10/25/22 8:28 PM) MPV [9.2-12.7 fL] 10.2 fL (10/25/22 8:28 PM) Glucose Level [74-106 mg/dL] 103 mg/dL (10/25/22 8:28 PM) Platelet [150-350 x10(3)/mcL] 254 x10(3) /mcL (10/25/22 8:28 PM) Potassium Level [3.5-5.1 mmol/L] 3.4 mmo l/L *LOW* (10/25/22 8:28 PM) WBC [4.5-11.0 x10(3)/mcL] 4.4 x10(3)/mcL *LOW* (10/25/22 8:28 PM) BUN [7-18 mg/dL] 10 mg/dL (10/25/22 8:28 PM) Calcium Level [8.5-10.1 mg/dL] 8.8 mg/dL (10/25/22 8:28 PM) Chloride [98-107 mmol/L] 107 mmol/L (10/25/22 8:28 PM) hCG Qnt [1-3 mIU/mL] <1 mIU/mL (10/25/22 8:28 PM) eGFR AA >60 mL/min/1.73 m2 *NA* (10/25/22 8:28 PM) eGFR BRUNO >60 mL/min/1.73 m2 *NA* (10/25/22 8:28 PM) NRBC % [0.0-0.2 %] 0.0 % (6/13/23 8:28 PM) Osmol Calculated 279 mOsm/kg *NA* (10/25/22 8:28 PM) Creatinine [0.6-1.3 mg/dL] 0.9 mg/dL (10/25/22 8:28 PM) Vital Signs Most recent to oldest [Reference Range]: 1 2 3 Temperature Oral [35.8-37.3 DegC] 37 DegC (10/25/22 7:32 PM) Peripheral Pulse Rate [60-100 bpm] 100 bpm (10/25/22 11:03 PM) 121 bpm *HI* (10/25/22 9:30 PM) 99 bpm (10/25/22:23 PM) Heart Rate Monitored [60-100 bpm] 108 bpm *HI* (10/25/22 11:03 PM) 114 bpm *HI* (10/25/22 9:30 PM) 109 bpm *HI* (10/25/22 9:23 PM) Respiratory Rate [14-20 br/min] 20 br/min (10/25/22 11:03 PM) 22 br/min *HI* (10/25/22 9:30 PM) 21 br/min *HI* (10/25/22 9:23 PM) Blood Pressure [90-140/60-90 mmHg] 115/64mmHg (10/25/22 11:03 PM) 114/67mmHg (10/25/22 9:30 PM) 96/51mmHg (10/25/22 9:23 PM) Mean Arterial Pressure, Cuff 80 mmHg (10/25/22 11:03 PM) 71 mmHg (10/25/22 9:30 PM) 62 mmHg (10/25/22:23 PM) Blood Pressure 112/59mmHg (10/25/22 7:32 PM) Social History Social History Type Response Tobacco Tobacco Use: Denies. Sex Female Hospital Discharge Instructions Patient Education 10/25/2022 23:22:22 Pelvic Pain, Female Pelvic Pain, Female Pelvic [...] Follow these instructions at home: ??? Take qmto-ord-dmljetg and prescription medicines only as told by [...] or worse, such as food or your monthly period (menstrual cycle). ??? Any symptoms you have along with the pain. ??? Keep all follow-up visits. This is important. Contact a health care provider if: ??? Medicine does not help your pain, or your pain comes back. ??? You have new symptoms. ??? You have abnormal vaginal discharge or bleeding, including bleeding after menopause. ??? You have a fever or chills. ??? You are constipated. ??? You have blood in your urine or stool (feces). ??? You have foul-smelling urine. ??? You feel weak or light-headed. Get help right away if: ??? You have sudden severe pain. ??? Your pain gets steadily worse. ??? You have severe pain along with fever, nausea, vomiting, or excessive sweating. ??? You lose consciousness. These symptoms may represent a serious problem that is an emergency. Do not wait to see if the symptoms will go away. Get medical help right away. Call your local emergency services (911 in the [place] Do not drive yourself to the hospital. Summary ??? Pelvic pain is pain in [...] with your health care provider. Document Revised: 09/07/2021 Document Reviewed: 09/07/2021 [employer] Patient Education ?? 2022 [employer] Patient Care team information Care Team Personnel Name: No Local PCP No Local PCP, Member Role: Primary Care Physician Name: Olga Hernandez RN Position: ED Nurse Management Member Role: ED Nurse Name: JODI HARMON MD Position: Physician - ED Member Role: ED Physician Address: Address: [address] [place] [id number] [place] Care Team Related Persons Name: BO PAYAN Address: [place] [phone] Name: BO PAYAN Address: [address] [phone] Name: BO BOOKER Address: [place] [address]
--- OUTSIDE RECORDS SUMMARY | 2022-11-20 17:51 | XMS_ITS | Continuity of Care Document ---
Author Name Unknown Organization [facility] Address Unknown Care Team Providers Care Computer Numerical Control Programmer Name Role Phone No Local PCP, No Local PCP Primary Care Physicia n Unavailable Encounter Date(s): 06/07/22 - 06/07/22 [facility] [address] [place] [address]- Encounter Diagnosis Acute vomiting(Discharge Diagnosis) - 06/07/22 Acute abdominal pain(Discharge Diagnosis) - 06/07/22 Discharge Disposition: Home or Self Care Attending Physician: EVIE FLORIAN DO Admitting Physician: EVIE FLORIAN DO Allergies, Adverse Reactions, Alerts Substance Reaction Severity [...] Start Date: 01/21/22 Status: Ordered Mental Status 06/07/22 Orientation Assessment Oriented x 4 Problem List [...] for MRSA. Results Laboratory List Name Date Urinalysis Reflex Microscopic, Culture i f 06/07/22 .Estimated Glomerular Filtration Rate Auto Differential 06/07/22 CBC Auto Diff reflex Manual Diff 06/07/22 Comprehensive Metabolic Panel 06/07/22 Critical Care Panel 06/07/22 HCG Quantitative 06/07/22 Lipase Level 06/07/22 Most recent to oldest [Reference Range]: 1 UA Appear Clear *NA* (06/07/22 9:02 PM) UA Bili Negative *NA* (06/07/22 9:02 PM) UA Blood Negative *NA* (06/07/22 9:02 PM) UA Color Yellow *NA* (06/07/22 9:02 PM) UA Glucose Negative *NA* (06/07/22 9:02 PM) UA Ketones Negative *NA* (06/07/22 9:02 PM) UA Leuk Est Negative *NA* (06/07/22 9:02 PM) UA Nitrite Negative *NA* (06/07/22 9:02 PM) UA Protein Negative *NA* (06/07/22 9:02 PM) UA Urobilinogen 1.0 1 (06/07/22 9:02 PM) Microscopic Indicated No *NA* (06/07/22 9:02 PM) AGAP 6 *NA* (06/07/22 7:42 PM) A/G Ratio 0.9 *NA* (06/07/22 7:42 PM) BUN/Creat Ratio 8 *NA* (06/07/22 7:42 PM) RBC [4.00-5.20 x10(6)/mcL] 3.30 x10(6)/m cL *LOW* (06/07/22 7:42 PM) RDW [11.5-14.5 %] 15.5 % *HI* (06/07/22 7:42 PM) Sodium Level [136-145 mmol/L] 138 mmol/L (06/07/22 7:42 PM) Total Protein [6.4-8.2 gm/dL] 7.0 gm/dL (06/07/22 7:42 PM) AST [15-37 IU/L] 34 IU/L (06/07/22 7:42 PM) Bili Total [0.20-1.00 mg/dL] 0.29 mg/dL (06/07/22 7:42 PM) CO2 [21-32 mmol/L] 27 mmol/L (06/07/22 7:42 PM) UA pH [5.0-9.0] 8.0 (06/07/22 9:02 PM) Albumin Level [3.4-5.0 gm/dL] 3.4 gm/dL (06/07/22 7:42 PM) Alk Phos [48-129 unit/L] 54 unit/L (06/07/22 7:42 PM) ALT [13-61 IU/L] 42 IU/L (06/07/22 7:42 PM) Whole Blood HCO3 [24.0-32.0 mmol/L] 26.6 mmol/L (06/07/22 7:42 PM) Hct [36.0-46.0 %] 29.0 % *LOW* (06/07/22 7:42 PM) Hgb [12.0-15.0 gm/dL] 9.0 gm/dL *LOW* (06/07/22 7:42 PM) Lactic Acid Level [0.5-2.0 mmol/L] 1.4 m mol/L (06/07/22 7:42 PM) Lipase Lvl [73-393 IU/L] 95 IU/L (06/07/22 7:42 PM) MCH [26.0-34.0 pg] 27.3 pg (06/07/22 7:42 PM) MCHC [31.0-37.0 gm/dL] 31.0 gm/dL (06/07/22 7:42 PM) MCV [80-100 fL] 88 fL (06/07/22 7:42 PM) MPV [9.2-12.7 fL] 10.4 fL (06/07/22 7:42 PM) Glucose Level [74-106 mg/dL] 86 mg/dL (06/07/22 7:42 PM) Platelet [150-350 x10(3)/mcL] 288 x10(3) /mcL (06/07/22 7:42 PM) Potassium Level [3.5-5.1 mmol/L] 3.3 mmo l/L *LOW* (06/07/22 7:42 PM) UA Spec Grav [1.000-1.060] 1.017 (06/07/22 9:02 PM) WBC [4.5-11.0 x10(3)/mcL] 4.7 x10(3)/mcL (06/07/22 7:42 PM) BUN [7-18 mg/dL] 6 mg/dL *LOW* (06/07/22 7:42 PM) Calcium Level [8.5-10.1 mg/dL] 8.4 mg/dL *LOW* (06/07/22 7:42 PM) Whole Blood Calcium Ionized [1.13-1.32 m mol/L] 1.15 mmol/L (06/07/22 7:42 PM) Chloride [98-107 mmol/L] 108 mmol/L *HI* (06/07/22 7:42 PM) hCG Qnt [1-3 mIU/mL] <1 mIU/mL (06/07/22 7:42 PM) eGFR AA >60 mL/min/1.73 m2 *NA* (06/07/22 7:42 PM) eGFR BRUNO >60 mL/min/1.73 m2 *NA* (06/07/22 7:42 PM) Neutrophil Absolute [1.50-7.80 x10(3)/mc L] 2.72 x10(3)/mcL (06/07/22 7:42 PM) Lymphocyte Absolute [1.10-4.80 x10(3)/mc L] 1.49 x10(3)/mcL (06/07/22 7:42 PM) Monocyte Absolute 0.29 x10(3)/mcL *NA* (06/07/22 7:42 PM) Eosinophil Absolute 0.15 x10(3)/mcL *NA* (06/07/22 7:42 PM) Basophil Absolute 0.06 x10(3)/mcL *NA* (06/07/22 7:42 PM) Imm Gran Absolute 0.01 /mcL *NA* (06/07/22 7:42 PM) NRBC % [0.0-0.2 %] 0.0 % (06/07/22 7:42 PM) Whole Blood Hemoglobin [12.0-15.0] 9.5 *LOW* (06/07/22 7:42 PM) Whole Blood Hematocrit [36-46 %] 29 % *LOW* (06/07/22 7:42 PM) Whole Blood Sodium [136-145 mmol/L] 139 mmol/L (06/07/22 7:42 PM) Whole Blood Potassium [3.5-5.1 mmol/L] 3 .4 mmol/L *LOW* (06/07/22 7:42 PM) Whole Blood Chloride [98-107 mmol/L] 107 mmol/L (06/07/22 7:42 PM) Whole Blood Anion Gap 7 mmol/L *NA* (06/07/22 7:42 PM) Whole Blood Glucose [74-106 mg/dL] 83 mg /dL (06/07/22 7:42 PM) Whole Blood pH [7.38-7.46] 7.36 *LOW* (06/07/22 7:42 PM) Whole Blood pO2 [74-108] NA 2 *NA* (06/07/22 7:42 PM) Whole Blood pCO2 [32-46 mmHg] 50 mmHg *HI* (06/07/22 7:42 PM) Whole Blood Base Excess [-2.0-2.0 mmol/L ] 2.2 mmol/L *HI* (06/07/22 7:42 PM) Culture Indicated Not Indicated *NA* (06/07/22 9:02 PM) Whole Blood O2 Saturation [92.0-96.0 %] 92.8 % (06/07/22 7:42 PM) Osmol Calculated 273 mOsm/kg *NA* (06/07/22 7:42 PM) Eosinophil Auto [1.0-4.0 %] 3.2 % (06/07/22 7:42 PM) Immature Granulocyte Auto 0 % *NA* (06/07/22 7:42 PM) Lymphocyte Auto [24.0-44.0 %] 31.6 % (06/07/22 7:42 PM) Monocyte Auto [2.0-11.0 %] 6.1 % (06/07/22 7:42 PM) Neutrophil Auto [31.0-76.0 %] 57.6 % (06/07/22 7:42 PM) Basophil Auto [0.0-2.0 %] 1.3 % (06/07/22 7:42 PM) Creatinine [0.6-1.3 mg/dL] 0.8 mg/dL (06/07/22 7:42 PM) 1Result Comment: Urobilinogen result is equal to the Semiquantitative Result of: NORMAL 2Result Comment: pO2 levels are not accurate when collected in vacutainers. Vital Signs Most recent to oldest [Reference Range]: 1 2 3 Temperature Oral [35.8-37.3 DegC] 37.1 DegC (06/07/22 10:57 PM) 37.3 DegC (06/07/22 7:50 PM) 36.9 DegC (06/07/22 6:16 PM) Peripheral Pulse Rate [60-100 bpm] 73 bpm (06/07/22 10:57 PM) 75 bpm (06/07/22 10:10 PM) 89 bpm (06/07/22 7:50 PM) Respiratory Rate [14-20 br/min] 17 br/min (06/07/22 10:57 PM) 18 br/min (06/07/22 10:10 PM) 19 br/min (06/07/22 7:50 PM) Blood Pressure 99/61mmHg (06/07/22 10:57 PM) 119/62mmHg (06/07/22 10:10 PM) 99/58mmHg (06/07/22 7:50 PM) Social History Social History Type Response Tobacco Tobacco Use: Denies. Sex Female Hospital Discharge Instructions Patient Education 06/07/2022 22:47:18 Nausea and Vomiting, Adult Nausea and Vomiting, Adult Nausea is the feeling that you have an upset stomach or that you are about to vomit. Vomiting is when stomach contents are thrown up and out of the mouth as a result of nausea. Vomiting can make you feel weak and cause you to become dehydrated. Dehydration can make you feel tired and thirsty, cause you to have a dry mouth, and decrease how often you urinate. Older adults and people with other diseases or a weak disease-fighting system (immune system) are at higher risk for dehydration. It is important to treat your nausea and vomiting as told by your health care provider. Follow these instructions at home: Watch your symptoms for any changes. Tell your health care provider about them. Follow these instructions to care for yourself at home. Eating and drinking ??? Take an oral rehydration solution (ORS). This is a drink that is sold at pharmacies and retail stores. ??? Drink clear fluids slowly and in small amounts as you are able. Clear fluids include water, icechips, low-calorie sports drinks, and fruit juice that has water added (diluted fruit juice). ??? Eat bland, qeeu-vu-aozepd foods in small amounts as you are able. These foods include bananas, applesauce, rice, lean meats, toast, and crackers. ??? Avoid fluids that contain a lot of sugar or caffeine, such as energy drinks, sports drinks, andsoda. ??? Avoid alcohol. ??? Avoid spicy or fatty foods. General instructions ??? Take hmsg-ion-ziuqlor and prescription medicines only as told by your health care provider. ??? Drink enough fluid to keep your urine pale yellow. ??? Wash your hands often using soap and water. If soap and water are not available, use hand cargo trimmer. ??? Make sure that all people in your household wash their hands well and often. ??? Rest at home while you recover. ??? Watch your condition for any changes. ??? Breathe slowly and deeply when you feel nauseated. ??? Keep all follow-up visits as told by your health care provider. This is important. Contact a health care provider if: ??? Your symptoms get worse. ??? You have new symptoms. ??? You have a fever. ??? You cannot drink fluids without vomiting. ??? Your nausea does not go away after 2 days. ??? You feel light-headed or dizzy. ??? You have a headache. ??? You have muscle cramps. ??? You have a rash. ??? You have pain while urinating. Get help right away if: ??? You have pain in your chest, neck, arm, or jaw. ??? You feel extremely weak or you faint. ??? You have persistent vomiting. ??? You have vomit that is bright red or looks like black coffee grounds. ??? You have bloody or black stools or stools that look like tar. ??? You have a severe headache, a stiff neck, or both. ??? You have severe pain, cramping, or bloating in your abdomen. ??? You have difficulty breathing, or you are breathing very quickly. ??? Your heart is beating very quickly. ??? Your skin feels cold and clammy. ??? You feel confused. ??? You have signs of dehydration, such as: ??? Dark urine, very little urine, or no urine. ??? Cracked lips. ??? Dry mouth. ??? Sunken eyes. ??? Sleepiness. ??? Weakness. These symptoms may represent a serious problem that is an emergency. Do not wait to see if the symptoms will go away. Get medical help right away. Call your local emergency services (911 in the [place] Do not drive yourself to the hospital. Summary ??? Nausea is the feeling that you have an upset stomach or that you are about to vomit. As nausea gets worse, it can lead to vomiting. Vomiting can make you feel weak and cause you to become dehydrated. ??? Follow instructions from your health care provider about eating and drinking to prevent dehydration. ??? Take prlt-ezd-wkylvuz and prescription medicines only as told by your health care provider. ??? Contact your health care provider if your symptoms get worse, or you have new symptoms. ??? Keep all follow-up visits as told by your health care provider. This is important. This information is not intended to replace advice given to you by your health care provider. Make sure you discuss any questions you have with your health care provider. Document Revised: 07/21/2021 Document Reviewed: 10/09/2018 [employer] Patient Education ?? 2021 [employer] Care Team Care Team Personnel Name: No Local PCP No Local PCP, Member Role: Primary Care Physician Name: Kevin Lowe RN Position: ED Nurse/CLINICAL REGISTERED NURSE Member Role: ED Nurse Name: EVIE FLORIAN DO Position: Physician - ED Member Role: Attending Physician Address: Address: Emergency Department [address] [place] [id number]- Care Team Related Persons Name: BO PAYAN Address: Home [address] [place] [phone] Name: BO PAYAN Address: [address] [phone] Name: BO BOOKER Address: [place]
--- OUTSIDE RECORDS SUMMARY | 2022-11-20 17:51 | XMS_ITS | Continuity of Care Document ---
Author Name Unknown Organization [facility] Address Unknown Care Team Providers Care Legal Office Administrator Name Role Phone No Local PCP, No Local PCP Primary Care Physicia n Unavailable Encounter Date(s): 06/22/22 - 06/22/22 [facility] [address] [place], [place] [address] Encounter Diagnosis Vomiting(Discharge Diagnosis) - 06/22/22 Abdominal pain(Discharge Diagnosis) - 06/22/22 Discharge Disposition: Home or Self Care Attending Physician: EDITA HELLER MD Admitting Physician: EDITA HELLER MD Allergies, Adverse Reactions, Alerts Substance Reaction Severity Status penicillin Anaphylactic reaction Severe Active droperidol Vomiting Tongue swelling Shaking all over Tetanus Hives Severe Active Latex Hives Mild Active Haldol Anaphylactic reaction Severe Active Compazine Tetanus Vomiting Tongue swelling Shaking all over Hives Severe Active Toradol Hives Mild Active Assessment and Plan Diagnostic Tests Pending * HCG Quantitative 06/22/22 Medications Albuterol (Eqv-ProAir HFA) 90 mcg/inh inhalation [...] qHS Start Date: 01/21/22 Status: Ordered Zofran 4 mg oral tablet 4 mg = 1 tab(s), Oral, q6hr, PRN PRN: as needed for nausea/vomiting, # 10 tab(s), 0 Refill(s), Pharmacy: [id number], 167, cm, 06/22/22 12:33:00 EST, Height/Length Dosing, 72.8, kg, 06/22/22 12:33:00 EST, Weight Dosing Start Date: 06/22/22 Stop Date: 06/24/22 Status: Ordered Mental Status 06/22/22 Orientation Assessment Oriented x 4 Problem List [...] for MRSA. Results Laboratory List Name Date HCG Urine (Urine Test) 06/22/22 Urinalysis Reflex Microscopic if Indicat ed 06/22/22 .Estimated Glomerular Filtration Rate 06/22/22 Auto Differential 06/22/22 CBC Auto Diff reflex Manual Diff 06/22/22 Comprehensive Metabolic Panel 06/22/22 HCG Quantitative 06/22/22 Lipase Level 06/22/22 Most recent to oldest [Reference Range]: 1 HCG Urine Negative (06/22/22 3:12 PM) UA Appear Clear *NA* (06/22/22 3:12 PM) UA Bili Negative *NA* (06/22/22 3:12 PM) UA Blood Negative *NA* (06/22/22 3:12 PM) UA Color Yellow *NA* (06/22/22 3:12 PM) UA Glucose Negative *NA* (06/22/22 3:12 PM) UA Ketones Negative *NA* (06/22/22 3:12 PM) UA Leuk Est Negative *NA* (06/22/22 3:12 PM) UA Nitrite Negative *NA* (06/22/22 3:12 PM) UA Protein Negative *NA* (06/22/22 3:12 PM) UA Urobilinogen 0.2 1 (06/22/22 3:12 PM) Microscopic Indicated No *NA* (06/22/22 3:12 PM) AGAP 5 *NA* (06/22/22 1:19 PM) A/G Ratio 1.0 *NA* (06/22/22 1:19 PM) BUN/Creat Ratio 6 *NA* (06/22/22 1:19 PM) RBC [4.00-5.20 x10(6)/mcL] 3.80 x10(6)/m cL *LOW* (06/22/22 1:19 PM) RDW [11.5-14.5 %] 14.6 % *HI* (06/22/22 1:19 PM) Sodium Level [136-145 mmol/L] 138 mmol/L (06/22/22 1:19 PM) Total Protein [6.4-8.2 gm/dL] 7.0 gm/dL (06/22/22 1:19 PM) AST [15-37 IU/L] 42 IU/L *HI* (06/22/22: PM) Bili Total [0.20-1.00 mg/dL] 0.36 mg/dL (06/22/22: PM) CO2 [21-32 mmol/L] 31 mmol/L (06/22/22: PM) UA pH [5.0-9.0] 8.5 (06/22/22 3:12 PM) Albumin Level [3.4-5.0 gm/dL] 3.5 gm/dL (06/22/22: PM) Alk Phos [48-129 unit/L] 72 unit/L (06/22/22: PM) ALT [13-61 IU/L] 55 IU/L (06/22/22: PM) Hct [36.0-46.0 %] 32.9 % *LOW* (06/22/22: PM) Hgb [12.0-15.0 gm/dL] 10.1 gm/dL *LOW* (06/22/22: PM) Lipase Lvl [73-393 IU/L] 58 IU/L *LOW* (06/22/22: PM) MCH [26.0-34.0 pg] 26.6 pg (06/22/22: PM) MCHC [31.0-37.0 gm/dL] 30.7 gm/dL *LOW* (06/22/22: PM) MCV [80-100 fL] 87 fL (06/22/22: PM) MPV [9.2-12.7 fL] 10.7 fL (06/22/22:19 PM) Glucose Level [74-106 mg/dL] 82 mg/dL (06/22/22:19 PM) Platelet [150-350 x10(3)/mcL] 165 x10(3) /mcL (06/22/22 1:19 PM) Potassium Level [3.5-5.1 mmol/L] 3.2 mmo l/L *LOW* (2/8/23 1:19 PM) UA Spec Grav [1.000-1.060] 1.013 (06/22/22 3:12 PM) WBC [4.5-11.0 x10(3)/mcL] 4.1 x10(3)/mcL *LOW* (06/22/22 1:19 PM) BUN [7-18 mg/dL] 4 mg/dL *LOW* (06/22/22 1:19 PM) Calcium Level [8.5-10.1 mg/dL] 8.5 mg/dL (06/22/22 1:19 PM) Chloride [98-107 mmol/L] 105 mmol/L (06/22/22 1:19 PM) hCG Qnt [1-3 mIU/mL] <1 mIU/mL (06/22/22 1:19 PM) eGFR AA >60 mL/min/1.73 m2 *NA* (06/22/22 1:19 PM) eGFR BRUNO >60 mL/min/1.73 m2 *NA* (06/22/22 1:19 PM) Neutrophil Absolute [1.50-7.80 x10(3)/mc L] 2.27 x10(3)/mcL (06/22/22 1:19 PM) Lymphocyte Absolute [1.10-4.80 x10(3)/mc L] 1.22 x10(3)/mcL (06/22/22 1:19 PM) Monocyte Absolute 0.33 x10(3)/mcL *NA* (06/22/22 1:19 PM) Eosinophil Absolute 0.24 x10(3)/mcL *NA* (06/22/22 1:19 PM) Basophil Absolute 0.05 x10(3)/mcL *NA* (06/22/22 1:19 PM) Imm Gran Absolute 0.01 /mcL *NA* (06/22/22 1:19 PM) NRBC % [0.0-0.2 %] 0.0 % (06/22/22 1:19 PM) Osmol Calculated 272 mOsm/kg *NA* (06/22/22 1:19 PM) Eosinophil Auto [1.0-4.0 %] 5.8 % *HI* (06/22/22 1:19 PM) Immature Granulocyte Auto 0 % *NA* (06/22/22 1:19 PM) Lymphocyte Auto [24.0-44.0 %] 29.6 % (06/22/22 1:19 PM) Monocyte Auto [2.0-11.0 %] 8.0 % (06/22/22 1:19 PM) Neutrophil Auto [31.0-76.0 %] 55.2 % (06/22/22 1:19 PM) Basophil Auto [0.0-2.0 %] 1.2 % (06/22/22 1:19 PM) Creatinine [0.6-1.3 mg/dL] 0.7 mg/dL (06/22/22 1:19 PM) 1Result Comment: Urobilinogen result is equal to the Semiquantitative Result of: NORMAL Radiology Reports * Exam Date Time Procedure Performing Provider Status 06/22/22 3:[address] Abdomen and pelvis with contrast- [address] ABD PEL W 15682 PROCEDURE: CT ABD PEL W 20629 CLINICAL INDICATION: difuse abd pain. COMPARISON: 05/13/2022 TECHNIQUE: Standard CT of the Abdomen and Pelvis was performed with contrast. Dose reduction techniques including automated exposure control were utilized. Contrast 100-199 concent/ml DX- Q9965 84 Cubic Centimeters Intravenous 06/22/2022 03:41 PM DLP DOSE:408.34 (mGy.cm) FINDINGS: No significant abnormality identified in the included images of the lower chest. The liver is unremarkable without focal lesion. The gallbladder is unremarkable. No abnormality identified in the pancreas. Mildly enlarged spleen, as before. No abnormality identified in either adrenal gland. No significant parenchymal abnormality identified in either kidney. The uterus is present. Status post left lower quadrant colostomy. No dilated bowel. No perienteric inflammation. No enlarged lymph nodes by CT size criteria. Abdominal aorta is normal in caliber. No concerning bony lesion identified. IMPRESSION: 1. No acute CT abnormality identified. 2. Possible constipation. 3. Status post left lower quadrant colostomy. Electronically Signed by: Saw Cardenas MD 06/22/2022 3:53 PM Vital Signs Most recent to oldest [Reference Range]: 1 2 3 Temperature Oral [35.8-37.3 DegC] 37.0 DegC (06/22/22 12:33 PM) Peripheral Pulse Rate [60-100 bpm] 82 bpm (06/22/22 4:25 PM) 80 bpm (06/22/22 4:20 PM) 79 bpm (06/22/22 2:41 PM) Heart Rate Monitored [60-100 bpm] 93 bpm (06/22/22 4:25 PM) 83 bpm (06/22/22 4:20 PM) 78 bpm (06/22/22 2:41 PM) Respiratory Rate [14-20 br/min] 18 br/min (06/22/22 4:25 PM) 16 br/min (06/22/22 4:20 PM) 14 br/min (06/22/22 2:41 PM) Blood Pressure [90-140/60-90 mmHg] 110/67mmHg (06/22/22 2:41 PM) Mean Arterial Pressure, Cuff 80 mmHg (06/22/22 2:41 PM) Blood Pressure 131/62mmHg (06/22/22 12:33 PM) Social History Social History Type Response Tobacco Tobacco Use: Denies. Sex Female Hospital Discharge Instructions Patient Education 06/22/2022 16:12:11 Nausea and Vomiting, Adult Nausea and Vomiting, Adult Nausea is the feeling that you have an upset stomach or that you are about to vomit. As nausea getsworse, it can lead to vomiting. Vomiting is when stomach contents forcefully come out of your mouthas a result of nausea. Vomiting can make [...] Tell your health care provider about them. Eating and drinking ??? Take an oral rehydration solution (ORS). This is a drink that is sold at pharmacies and retail stores. ??? Drink clear fluids slowly and in small amounts as you are able. Clear fluids include water, icechips, low-calorie sports drinks, and fruit juice that has water added (diluted fruit juice). ??? Eat bland, igus-zt-zshkud foods in small amounts as you are able. These foods include bananas, applesauce, rice, lean meats, toast, and crackers. ??? Avoid fluids that contain a lot of sugar or caffeine, such as energy drinks, sports drinks, andsoda. ??? Avoid alcohol. ??? Avoid spicy or fatty foods. General instructions ??? Take rcgm-pax-isfsvyn and prescription medicines only as told by your health care provider. ??? Drink enough fluid to keep your urine pale yellow. ??? Wash your hands often using soap and water for at least 20 seconds. If soap and water are not available, use hand mrb engineer. ??? Make sure that everyone in your household washes their hands well and often. ??? Rest at home while you recover. ??? Watch your condition for any changes. ??? Take slow and deep breaths when you feel nauseous. ??? Keep all follow-up visits. This is [...] ??? You have bloody or black stools (feces) or stools that look like tar. ??? [...] ??? Sleepiness. ??? Weakness. These symptoms may be an emergency. Get help right away. Call 911. ??? Do not wait to see if the symptoms will go away. ??? Do not drive yourself to the hospital. [...] and drinking to prevent dehydration. ??? Take xkrr-eon-qdhmdwe and prescription medicines only as told by your health care provider. ??? Contact your health care provider if your symptoms get worse, or you have new symptoms. ??? Keep all follow-up visits. This is important. This information is not intended to replace advice given to you by your health care provider. Make sure you discuss any questions you have with your health care provider. Document Revised: 11/05/2021 Document Reviewed: 11/05/2021 [employer] Patient Education ?? 2021 [employer]. 06/22/2022 16:12:11 Abdominal Pain, Adult Abdominal Pain, Adult Pain [...] these instructions at home: Medicines ??? Take ggcq-frs-mxdblyu and prescription medicines only as told by [...] your condition for any changes. ??? Take dptd-oou-sqafjec and prescription medicines only as told by [...] provider. Document Revised: 06/19/2020 Document Reviewed: 09/09/2019 [employer] Patient Education ?? [address] Abdomen and Pelvis W contrast IV * Event Display: CT Abdomen and pelvis with contrast- 741 Authored Date: [id number] PROCEDURE: CT ABD PEL W 37108 CLINICAL INDICATION: difuse abd pain. COMPARISON: 05/13/2022 TECHNIQUE: Standard CT of the Abdomen and Pelvis was performed with contrast. Dose reduction techniques including automated exposure control were utilized. Contrast 100-199 concent/ml DX- Q9965 84 Cubic Centimeters Intravenous 06/22/2022 03:41 PM DLP DOSE:408.34 (mGy.cm) FINDINGS: No significant abnormality identified in the included images of the lower chest. The liver is unremarkable without focal lesion. The gallbladder is unremarkable. No abnormality identified in the pancreas. Mildly enlarged spleen, as before. No abnormality identified in either adrenal gland. No significant parenchymal abnormality identified in either kidney. The uterus is present. Status post left lower quadrant colostomy. No dilated bowel. No perienteric inflammation. No enlarged lymph nodes by CT size criteria. Abdominal aorta is normal in caliber. No concerning bony lesion identified. IMPRESSION: 1. No acute CT abnormality identified. 2. Possible constipation. 3. Status post left lower quadrant colostomy. Electronically Signed by: Saw Cardenas MD 06/22/2022 3:53 PM Care Team Care Team Personnel Name: No Local PCP No Local PCP, Member Role: Primary Care Physician Name: JODI GLOVER PA-C Position: Physician - ED Member Role: ED Physician Level Vial Inspector And Tester Address: Address: [address] [place] [address] Name: Rodney Acosta, Position: ED Nurse/SENIOR PHP SOFTWARE DEVELOPER Member Role: ED Nurse Name: Skip Hensley RN Position: ED Nurse/SENIOR PHP SOFTWARE DEVELOPER Member Role: ED Nurse Care Team Related Persons Name: BO PAYAN Address: [address] [phone] Name: BO PAYAN Address: [address] [phone] Name: BO BOOKER Address: [place]
--- OUTSIDE RECORDS SUMMARY | 2022-11-20 17:51 | XMS_ITS | Continuity of Care Document ---
Author Name Unknown Organization [facility] Address Unknown Care Team Providers Care Digital Watch Assembler Name Role Phone No Local PCP, No Local PCP Primary Care Physicia n Unavailable Encounter Date(s): 11/07/22 - 11/07/22 [facility] [address], [place] [address] Discharge Disposition: AMA Attending Physician: ZAC CHAN MD Admitting Physician: ZAC CHAN MD Allergies, Adverse Reactions, Alerts Substance Reaction [...] QID, # 28 tab(s), 0 Refill(s), Pharmacy: [facility] #[id number], 167.6, cm, 07/27/22 18:15:00 EDT, Height/Length Dosing, [...] Start Date: 01/21/22 Status: Ordered Mental Status 11/07/22 Orientation Assessment Oriented x 4 Problem List [...] List Name Date .Estimated Glomerular Filtration Rate .Manual Diff 11/07/22 .Morphology 11/07/22 ABO/Rh 11/07/22 Antibody Screen Gel 11/07/22 CBC Auto Diff reflex Manual Diff 11/07/22 Comprehensive Metabolic Panel 11/07/22 HCG Quantitative 11/07/22 Most recent to oldest [Reference Range]: 1 ABSCR-G Interpretation Negative ABSC (11/07/22 6:07 AM) ABO/Rh Interpretation A POS *Unknown* (11/07/22 6:07 AM) RBC Morphology Abnormal *NA* (11/07/22 6:07 AM) Hypochrom 1+ *NA* (11/07/22 6:07 AM) Poikilocytosis 1+ *NA* (11/07/22 6:07 AM) Anisocyte 1+ *NA* (11/07/22 6:07 AM) Microcyte 1+ *NA* (11/07/22 6:07 AM) Platelet Estimate Adequate *NA* (11/07/22 6:07 AM) AGAP 9 *NA* (11/07/22 6:07 AM) A/G Ratio 1.1 *NA* (11/07/22 6:07 AM) BUN/Creat Ratio 9 *NA* (11/07/22 6:07 AM) RBC [4.00-5.20 x10(6)/mcL] 3.23 x10(6)/m cL *LOW* (11/07/22 6:07 AM) RDW [11.5-14.5 %] 17.1 % *HI* (11/07/22 6:07 AM) Neutrophil [31-76 %] 52 % (11/07/22 6:07 AM) Sodium Level [136-145 mmol/L] 142 mmol/L (11/07/22 6:07 AM) Total Protein [6.4-8.2 gm/dL] 6.0 gm/dL *LOW* (11/07/22 6:07 AM) AST [15-37 IU/L] 18 IU/L (11/07/22 6:07 AM) Basophil [0-2 %] 0 % (11/07/22 6:07 AM) Bili Total [0.20-1.00 mg/dL] 0.61 mg/dL (11/07/22 6:07 AM) CO2 [21-32 mmol/L] 26 mmol/L (11/07/22 6:07 AM) Eosinophil [1-4 %] 3 % (11/07/22 6: AM) Atypical Lymph 5 % *NA* (11/07/22 6:07 AM) Albumin Level [3.4-5.0 gm/dL] 3.2 gm/dL *LOW* (11/07/22 6:07 AM) Alk Phos [48-129 unit/L] 42 unit/L *LOW* (11/07/22 6:07 AM) ALT [13-61 IU/L] 20 IU/L (11/07/22 6:07 AM) Hct [36.0-46.0 %] 24.9 % *LOW* (11/07/22 6:07 AM) Hgb [12.0-15.0 gm/dL] 7.6 gm/dL *LOW* (11/07/22 6:07 AM) Lymphocyte [24-44 %] 39 % (11/07/22 6:07 AM) MCH [26.0-34.0 pg] 23.5 pg *LOW* (11/07/22 6:07 AM) MCHC [31.0-37.0 gm/dL] 30.5 gm/dL *LOW* (11/07/22 6:07 AM) MCV [80-100 fL] 77 fL *LOW* (11/07/22 6:07 AM) Monocyte [2-11 %] 1 % *LOW* (11/07/22 6:07 AM) MPV [9.2-12.7 fL] 11.2 fL (11/07/22 6:07 AM) Glucose Level [74-106 mg/dL] 100 mg/dL (11/07/22 6:07 AM) Platelet [150-350 x10(3)/mcL] 164 x10(3) /mcL (11/07/22 6:07 AM) Potassium Level [3.5-5.1 mmol/L] 3.2 mmo l/L *LOW* (11/07/22 6:07 AM) WBC [4.5-11.0 x10(3)/mcL] 4.7 x10(3)/mcL (11/07/22 6:07 AM) BUN [7-18 mg/dL] 7 mg/dL (11/07/22 6:07 AM) Calcium Level [8.5-10.1 mg/dL] 8.3 mg/dL *LOW* (11/07/22 6:07 AM) Chloride [98-107 mmol/L] 110 mmol/L *HI* (11/07/22 6:07 AM) hCG Qnt [1-3 mIU/mL] <1 mIU/mL (11/07/22 6:07 AM) eGFR AA >60 mL/min/1.73 m2 *NA* (11/07/22 6:07 AM) eGFR BRUNO >60 mL/min/1.73 m2 *NA* (11/07/22 6:07 AM) NRBC % [0.0-0.2 %] 0.4 % *HI* (11/07/22 6:07 AM) Osmol Calculated 281 mOsm/kg *NA* (11/07/22 6:07 AM) Creatinine [0.6-1.3 mg/dL] 0.8 mg/dL (11/07/22 6:07 AM) Abs Baso Man 0.0 x10(3)/mcL *NA* (11/07/22 6:07 AM) Abs Eos Man 0.1 x10(3)/mcL *NA* (11/07/22 6:07 AM) Abs Lymph Man [1.1-4.8 x10(3)/mcL] 2.1 x 10(3)/mcL (11/07/22 6:07 AM) Abs [place] Man 0.0 x10(3)/mcL *NA* (11/07/22 6:07 AM) Abs Seg Man [1.5-7.8 x10(3)/mcL] 2.5 x10 (3)/mcL (11/07/22 6:07 AM) Ovalocyte 1+ *NA* (11/07/22 6:07 AM) Vital Signs Most recent to oldest [Reference Range]: 1 2 3 Temperature Oral [35.8-37.3 DegC] 36.4 DegC (11/07/22 5:39 AM) Peripheral Pulse Rate [60-100 bpm] 105 bpm *HI* (11/07/22 8:15 AM) 103 bpm *HI* (11/07/22 8:00 AM) 95 bpm (11/07/22 7:45 AM) Heart Rate Monitored [60-100 bpm] 109 bpm *HI* (11/07/22 8:15 AM) 104 bpm *HI* (11/07/22 8:00 AM) 102 bpm *HI* (11/07/22 7:45 AM) Respiratory Rate [14-20 br/min] 16 br/min (11/07/22 8:15 AM) 14 br/min (11/07/22 8:00 AM) 15 br/min (11/07/22 7:45 AM) Blood Pressure [90-140/60-90 mmHg] 98/56mmHg (11/07/22 8:00 AM) 98/56mmHg (11/07/22 7:45 AM) 102/22mmHg (11/07/22 7:30 AM) Mean Arterial Pressure, Cuff 70 mmHg (11/07/22 8:00 AM) 70 mmHg (11/07/22 7:45 AM) 47 mmHg (11/07/22 7:30 AM) Blood Pressure 92/51mmHg (11/07/22 5:39 AM) Social History Social History Type Response Tobacco Tobacco Use: Denies. Sex Female Patient Care team information Care Team Personnel Name: No Local PCP No Local PCP, Member Role: Primary Care Physician Name: Hina Dodson RN Position: ED Nurse/POWER MULE OPERATOR Member Role: ED Nurse Name: ZAC CHAN MD Position: Physician - ED Member Role: Attending Physician Address: Address: Emergency Department [address] [place] [address]- Name: EVIE FLORIAN DO Position: Physician - ED Member Role: ED Physician Address: Address: Emergency Department [address] [place] [address]- Care Team Related Persons Name: BO PAYAN Address: [address], [phone] Name: BO PAYAN Address: [address] [phone] Name: BO BOOKER Address: [address] [phone]
--- OUTSIDE RECORDS SUMMARY | 2022-11-20 17:51 | XMS_ITS | Continuity of Care Document ---
Author Name Unknown Organization [facility] Address Unknown Care Team Providers Care Pcts Name Role Phone No Local PCP, No Local PCP Primary Care Physicia n Unavailable Encounter Date(s): 09/06/22 - 09/07/22 [facility] [address] [place], [place] [address] Encounter Diagnosis Abnormal vaginal bleeding(Discharge Diagnosis) - 09/06/22 Abdominal pain, acute(Discharge Diagnosis) - 09/06/22 GI bleed(Discharge Diagnosis) - 09/06/22 Discharge Disposition: Home or Self Care Attending Physician: BRUNO LOPEZ MD Admitting Physician: BRUNO LOPEZ MD Allergies, Adverse Reactions, Alerts Substance Reaction [...] QID, # 28 tab(s), 0 Refill(s), Pharmacy: [facility] #[id number], 167.6, cm, 07/27/22 18:15:00 EDT, Height/Length Dosing, 72.5, kg, 07/27/22 18:15:00 EDT, Weight Dosing Start Date: 07/28/22 Stop Date: 08/04/22 Status: Ordered Extra Strength Tylenol Menstrual 2 tab(s), Oral, q6hr, PRN PRN menstrual pain, 0 Refill(s) Start Date: 03/30/21 Status: Ordered gabapentin 300 mg oral capsule 300 mg = 1 cap(s), Oral, qHS Start Date: 04/20/22 Status: Ordered HYDROmorphone 0.5 mg = 0.5 mL, Syringe, IV Push, q20min PRN pain for 2 Doses/Times, Start date 09/06/22 20:41:00 EDT, Stop date Limited # of times, NOW Start Date: 09/06/22 Stop Date: 09/06/22 Status: Completed hydrOXYzine hydrochloride 25 mg oral tablet 25 [...] Start Date: 01/21/22 Status: Ordered Mental Status 09/06/22 Orientation Assessment Oriented x 4 Problem List [...] Date Drug Screen Urine (Urine Tox Screen) 08/14 10/04 Urinalysis Microscopic Add On Only Urinalysis Reflex Microscopic if Indicat ed 09/06/22 .Estimated Glomerular Filtration Rate Auto Differential 09/06/22 CBC Auto Diff reflex Manual Diff 09/06/22 Comprehensive Metabolic Panel 09/06/22 HCG Quantitative 09/06/22 Lipase Level 09/06/22 Most recent to oldest [Reference Range]: 1 UA Appear Cloudy *NA* (09/06/22 11:57 PM) Bacteria Not Present *NA* (09/06/22 11:57 PM) Benzodiazepines Screen Not Detected *NA* (09/06/22 11:57 PM) UA Bili 1+ *ABN* (09/06/22 11:57 PM) UA Blood 3+ *ABN* (09/06/22 11:57 PM) Cocaine Screen Not Detected *NA* (09/06/22 11:57 PM) UA Color Red *ABN* (09/06/22 11:57 PM) UA Glucose Negative *NA* (09/06/22 11:57 PM) UA Ketones Negative *NA* (09/06/22 11:57 PM) UA Leuk Est 1+ *ABN* (09/06/22 11:57 PM) UA Nitrite Negative *NA* (09/06/22 11:57 PM) Opiate Screen Detected *NA* (09/06/22 11:57 PM) Phencyclidine Screen Not Detected *NA* (09/06/22 11:57 PM) UA Protein 2+ *ABN* (09/06/22 11:57 PM) Red Blood Cells >100 *ABN* (09/06/22 11:57 PM) UA Urobilinogen 0.2 1 (09/06/22 11:57 PM) White Blood Cells 4-10 *ABN* (09/06/22 11:57 PM) Microscopic Indicated Yes *NA* (09/06/22 11:57 PM) Casts Not Present *NA* (09/06/22 11:57 PM) Tricyclics Screen Not Detected *NA* (09/06/22 11:57 PM) Amphetamines Screen Not Detected *NA* (09/06/22 11:57 PM) Barbiturates Screen Not Detected *NA* (09/06/22 11:57 PM) T-Cannabinol Screen Detected *NA* (09/06/22 11:57 PM) Methamphetamines Screen Not Detected *NA* (09/06/22 11:57 PM) AGAP 6 *NA* (09/06/22 9:23 PM) A/G Ratio 1.1 *NA* (09/06/22 9:23 PM) BUN/Creat Ratio 14 *NA* (09/06/22 9:23 PM) RBC [4.00-5.20 x10(6)/mcL] 4.30 x10(6)/m cL (09/06/22 9:23 PM) RDW [11.5-14.5 %] 14.6 % *HI* (09/06/22 9:23 PM) Sodium Level [136-145 mmol/L] 138 mmol/L (09/06/22 9:23 PM) Total Protein [6.4-8.2 gm/dL] 8.3 gm/dL *HI* (09/06/22 9:23 PM) AST [15-37 IU/L] 21 IU/L (09/06/22 9:23 PM) Bili Total [0.20-1.00 mg/dL] 0.25 mg/dL (09/06/22 9:23 PM) CO2 [21-32 mmol/L] 26 mmol/L (09/06/22 9:23 PM) UA pH [5.0-9.0] 6.0 (09/06/22 11:57 PM) Albumin Level [3.4-5.0 gm/dL] 4.3 gm/dL (09/06/22 9:23 PM) Alk Phos [48-129 unit/L] 59 unit/L (09/06/22 9:23 PM) ALT [13-61 IU/L] 27 IU/L (09/06/22:23 PM) Hct [36.0-46.0 %] 32.1 % *LOW* (09/06/22 PM) Hgb [12.0-15.0 gm/dL] 9.6 gm/dL *LOW* (09/06/22: PM) Lipase Lvl [13-75 IU/L] 30 IU/L (09/06/22 PM) MCH [26.0-34.0 pg] 22.3 pg *LOW* (09/06/22: PM) MCHC [31.0-37.0 gm/dL] 29.9 gm/dL *LOW* (09/06/22 PM) MCV [80-100 fL] 75 fL *LOW* (09/06/22 PM) MPV [9.2-12.7 fL] 10.8 fL (09/06/22 PM) Glucose Level [74-106 mg/dL] 93 mg/dL (09/06/22:23 PM) Platelet [150-350 x10(3)/mcL] 233 x10(3) /mcL (09/06/22:23 PM) Potassium Level [3.5-5.1 mmol/L] 3.5 mmo l/L (09/06/22: PM) UA Spec Grav [1.000-1.060] >1.060 (09/06/22 11:57 PM) WBC [4.5-11.0 x10(3)/mcL] 4.8 x10(3)/mcL (09/06/22 9:23 PM) BUN [7-18 mg/dL] 11 mg/dL (09/06/22 9:23 PM) Calcium Level [8.5-10.1 mg/dL] 9.5 mg/dL (09/06/22:23 PM) Chloride [98-107 mmol/L] 109 mmol/L *HI* (09/06/22: PM) hCG Qnt [1-3 mIU/mL] <1 mIU/mL (09/06/22 PM) eGFR AA >60 mL/min/1.73 m2 *NA* (09/06/22 9:23 PM) eGFR BRUNO >60 mL/min/1.73 m2 *NA* (09/06/22 9:23 PM) Neutrophil Absolute [1.50-7.80 x10(3)/mc L] 3.08 x10(3)/mcL (09/06/22 9:23 PM) Lymphocyte Absolute [1.10-4.80 x10(3)/mc L] 1.28 x10(3)/mcL (09/06/22 9:23 PM) Monocyte Absolute 0.29 x10(3)/mcL *NA* (09/06/22 9:23 PM) Eosinophil Absolute 0.09 x10(3)/mcL *NA* (09/06/22 9:23 PM) Basophil Absolute 0.05 x10(3)/mcL *NA* (09/06/22 9:23 PM) Imm Gran Absolute 0.01 /mcL *NA* (09/06/22 9:23 PM) NRBC % [0.0-0.2 %] 0.0 % (09/06/22 9:23 PM) Methadone Screen Not Detected *NA* (09/06/22 11:57 PM) Osmol Calculated 275 mOsm/kg *NA* (09/06/22 9:23 PM) Eosinophil Auto [1.0-4.0 %] 1.9 % (09/06/22 9:23 PM) Immature Granulocyte Auto 0 % *NA* (09/06/22 9:23 PM) Lymphocyte Auto [24.0-44.0 %] 26.7 % (09/06/22 9:23 PM) Monocyte Auto [2.0-11.0 %] 6.0 % (09/06/22 9:23 PM) Neutrophil Auto [31.0-76.0 %] 64.2 % (09/06/22 9:23 PM) Basophil Auto [0.0-2.0 %] 1.0 % (09/06/22 9:23 PM) Creatinine [0.6-1.3 mg/dL] 0.8 mg/dL (09/06/22 9:23 PM) Oxycodone Screen Not Detected *NA* (09/06/22 11:57 PM) Buprenorphine Screen Not Detected *NA* (09/06/22 11:57 PM) UA Epithelial Cells Not Present *NA* (09/06/22 11:57 PM) 1Result Comment: Urobilinogen result is equal to the Semiquantitative Result of: NORMAL Radiology Reports * Exam Date Time Procedure Performing Provider Status 09/06/22 11:[address] Abdomen and pelvi s with contrast- [address] ABD PEL W 05519 PROCEDURE: CT ABD PEL W 37367 CLINICAL INDICATION: Abdominal Pain COMPARISON: 06/22/2022 TECHNIQUE: Standard CT of the Abdomen and Pelvis was performed with contrast. Dose reduction techniques including automated exposure control were utilized. Contrast (LOCM) 350-399 90 Cubic Centimeters Intravenous 09/06/2022 10:57 PM DLP DOSE:388.77 (mGy.cm) FINDINGS: No significant abnormality identified in the included images of the lower chest. The liver is unremarkable without focal lesion. The gallbladder is unremarkable. No abnormality identified in the pancreas. No abnormality identified in the spleen. No abnormality identified in either adrenal gland. No significant parenchymal abnormality identified in either kidney. The uterus is grossly unremarkable. There is a left lower quadrant colostomy. No perienteric inflammation. No sign of obstruction. No enlarged lymph nodes by CT size criteria. Abdominal aorta is normal in caliber. No concerning bony lesion identified. IMPRESSION: 1. No acute CT abnormality identified. 2. Left lower quadrant colostomy. Electronically Signed by: Saw Cardenas MD 09/07/2022 8:42 AM Vital Signs Most recent to oldest [Reference Range]: 1 2 3 Temperature Oral [35.8-37.3 DegC] 36.7 DegC (09/06/22 8:01 PM) Peripheral Pulse Rate [60-100 bpm] 76 bpm (09/07/22 12:35 AM) 72 bpm (09/06/22 9:45 PM) 78 bpm (09/06/22 8:01 PM) Heart Rate Monitored [60-100 bpm] 82 bpm (09/06/22 11:53 PM) Respiratory Rate [14-20 br/min] 16 br/min (09/07/22 12:35 AM) 18 br/min (09/06/22 9:45 PM) 18 br/min (09/06/22 8:01 PM) Blood Pressure [90-140/60-90 mmHg] 124/89mmHg (09/06/22 9:45 PM) Blood Pressure 120/85mmHg (09/07/22 12:35 AM) 108/65mmHg (09/06/22 8:01 PM) Social History Social History Type Response Tobacco Tobacco Use: Denies. Sex Female Hospital Discharge Instructions Patient Education 09/06/2022 23:59:41 [facility] Abdominal Pain ([place]) ABDOMINAL PAIN, CAUSE UNDETERMINED Evaluation here is reassuring. History, examination and objective evaluation do not suggest that your symptoms result from serious or dangerous pathology. Please be sure to use any medications prescribed to you to help manage your symptoms. Should you notice any worsening of your symptoms, or failure to improve over the next 24-48 hours, please see your doctor or return here for evaluation. Please be sure to return for symptoms of concern, including worsening of your symptoms, failure to improve in 48 hours--or any other symptoms of concern, such as chest pain, shortness of breath, abdominal pain or high fever. EXPLANATION: Your doctor has checked you for pain in the abdominal area, or belly. At this time, an exact cause cannot be found. Abdominal pain can be caused by many things. It is not unusual for patients to havebelly pain that lasts for a few days or less, then goes away. Most abdominal pain in children is not caused by a disease and will probably improve without treatment. Your caregiver decides the seriousness of your pain by an examination and possibly blood tests and x-rays. Many cases can be observed and treated at home. However, if your symptoms worsen, you shouldbe re-evaluated to see if you need more testing, or if hospitalization or surgery is required. RECOMMENDATIONS/ HOME CARE INSTRUCTIONS: 1. Clear liquid diet - broth, tea, or water for 48 hours or as ordered by your caregiver. It is a good idea NOT to eat solid foods until the pain is getting better. Clear liquids are safest-- 7-up orSprite, Chelita Hanny, Gatorade, Pedia- Lyte and/or clear broth are all good choices. Slowly move to a bland diet as tolerated. Stay away from milk/ dairy products (i.e. ice cream, milk, cheese) until you are better. 2. Even though your pain may not be serious now, it may gradually get worse. If any of the following happens, call the doctor listed on your discharge sheet and/ or return to the Emergency Department: a. Your pain gets worse (or is not better in 48-72H) b. Your belly swells up c. You develop a fever (any temperature greater than 100F) d. Your bowel movements become black or bloody e. You cannot pass urine, or you have pain or burning with urination f. You cannot take fluids or feel weaker g. You begin vomiting h. You develop any other symptoms of concern 3. Take pain medication only if prescribed by your caregiver. Remember that pain medicines can be sedating (may make you drowsy) and you should be sure not to drive or operate machinery except as directed by your doctor. 4. Do not take or give laxatives unless directed by your caregiver. PLEASE BE SURE TO FOLLOW-UP INSTRUCTED. ANY CONCERN, PLEASE RETURN! MAKE SURE YOU: Understand these instructions. Watch your condition. Get help right away if you are not doing well or get worse. We want your experience here to be the best it can! Please do not hesitate to contact me with comments regarding what went well and what may not have gone so well during your visit here today. We value the trust you place in us very much. Thank you for allowing us to care for you today. Bruno Lopez MD [facility] Emergency Department [email or web address] CT Abdomen and Pelvis W contrast IV * Event Display: CT Abdomen and pelvis with contrast- 741 Authored Date: PROCEDURE: CT ABD PEL W 37986 CLINICAL INDICATION: Abdominal Pain COMPARISON: 06/22/2022 TECHNIQUE: Standard CT of the Abdomen and Pelvis was performed with contrast. Dose reduction techniques including automated exposure control were utilized. Contrast (LOCM) 350-399 90 Cubic Centimeters Intravenous 09/06/2022 10:57 PM DLP DOSE:388.77 (mGy.cm) FINDINGS: No significant abnormality identified in the included images of the lower chest. The liver is unremarkable without focal lesion. The gallbladder is unremarkable. No abnormality identified in the pancreas. No abnormality identified in the spleen. No abnormality identified in either adrenal gland. No significant parenchymal abnormality identified in either kidney. The uterus is grossly unremarkable. There is a left lower quadrant colostomy. No perienteric inflammation. No sign of obstruction. No enlarged lymph nodes by CT size criteria. Abdominal aorta is normal in caliber. No concerning bony lesion identified. IMPRESSION: 1. No acute CT abnormality identified. 2. Left lower quadrant colostomy. Electronically Signed by: Saw Cardenas MD 09/07/2022 8:42 AM Patient Care team information Care Team Personnel Name: No Local PCP No Local PCP, Member Role: Primary Care Physician Name: BRUNO LOPEZ MD Position: Physician - ED Member Role: Attending Physician Address: Address: [address] [place] [address] Name: Regina Rondon Position: ED Nurse Management Member Role: ED Nurse Care Team Related Persons Name: BO PAYAN Address: [place] [phone] Name: BO PAYAN Address: [address] [phone] Name: BO BOOKER Address: [place] [phone]
--- OUTSIDE RECORDS SUMMARY | 2022-11-20 17:51 | XMS_ITS | Continuity of Care Document ---
Author Name Unknown Organization [facility] Address Unknown Care Team Providers Care Commercial Estimator Name Role Phone No Local PCP, No Local PCP Primary Care Physicia n Unavailable Encounter Date(s): 07/27/22 - 07/28/22 [facility] [address], [place] [address] Encounter Diagnosis Abdominal pain(Discharge Diagnosis) - 07/28/22 Discharge Disposition: Home or Self Care Attending [...] Active Toradol Hives Mild Active Phenergan Active Assessment and Plan Diagnostic Tests Pending * Urinalysis Reflex Microscopic if Indicated 07/27/22 Medications Albuterol (Eqv-ProAir HFA) 90 mcg/inh inhalation aerosol 2 puff(s), Inhaled, q4hr, PRN PRN as needed for wheezing Start Date: 01/21/22 Status: Ordered Bentyl 20 mg oral tablet 20 mg = 1 tab(s), Oral, QID, # 28 tab(s), 0 Refill(s), [id number], 167.6, cm, 07/27/22 18:15:00 EDT, Height/Length Dosing, [...] Start Date: 01/21/22 Status: Ordered Mental Status 07/27/22 Orientation Assessment Oriented x 4 Problem List [...] Date .Estimated Glomerular Filtration Rate Auto Differential 07/27/22 CBC Auto Diff reflex Manual Diff 07/27/22 Comprehensive Metabolic Panel 07/27/22 Lipase Level 07/27/22 Most recent to oldest [Reference Range]: 1 AGAP 10 *NA* (07/27/22: PM) A/G Ratio 0.8 *NA* (07/27/22 PM) BUN/Creat Ratio 20 *NA* (07/27/22: PM) RBC [4.00-5.20 x10(6)/mcL] 3.99 x10(6)/m cL *LOW* (07/27/22 PM) RDW [11.5-14.5 %] 14.1 % (07/27/22: PM) Sodium Level [136-145 mmol/L] 134 mmol/L *LOW* (07/27/22: PM) Total Protein [6.4-8.2 gm/dL] 7.8 gm/dL (07/27/22: PM) AST [15-37 IU/L] 60 IU/L *HI* (07/27/22: PM) Bili Total [0.20-1.00 mg/dL] 0.50 mg/dL (07/27/22: PM) CO2 [21-32 mmol/L] 19 mmol/L *LOW* (07/27/22: PM) Albumin Level [3.4-5.0 gm/dL] 3.5 gm/dL (07/27/22: PM) Alk Phos [48-129 unit/L] 52 unit/L (07/27/22: PM) ALT [13-61 IU/L] 29 IU/L (07/27/22: PM) Hct [36.0-46.0 %] 34.5 % *LOW* (07/27/22: PM) Hgb [12.0-15.0 gm/dL] 9.7 gm/dL *LOW* (07/27/22: PM) Lipase Lvl [73-393 IU/L] 60 IU/L *LOW* (07/27/22 10:23 PM) MCH [26.0-34.0 pg] 24.3 pg *LOW* (07/27/22: PM) MCHC [31.0-37.0 gm/dL] 28.1 gm/dL *LOW* (07/27/22:23 PM) MCV [80-100 fL] 87 fL (07/27/22: PM) MPV [9.2-12.7 fL] 12.1 fL (07/27/22: PM) Glucose Level [74-106 mg/dL] 73 mg/dL *LOW* (07/27/22: PM) Platelet [150-350 x10(3)/mcL] 341 x10(3) /mcL (07/27/22: PM) Potassium Level [3.5-5.1 mmol/L] 4.5 mmo l/L (07/27/22: PM) WBC [4.5-11.0 x10(3)/mcL] 5.4 x10(3)/mcL (07/27/22 10:23 PM) BUN [7-18 mg/dL] 12 mg/dL (07/27/22 10: PM) Calcium Level [8.5-10.1 mg/dL] 9.3 mg/dL (07/27/22:23 PM) Chloride [98-107 mmol/L] 109 mmol/L *HI* (07/27/22 10: PM) eGFR AA >60 mL/min/1.73 m2 *NA* (07/27/22: PM) eGFR BRUNO >60 mL/min/1.73 m2 *NA* (07/27/22 10:23 PM) Neutrophil Absolute [1.50-7.80 x10(3)/mc L] 3.27 x10(3)/mcL (07/27/22 10:23 PM) Lymphocyte Absolute [1.10-4.80 x10(3)/mc L] 1.58 x10(3)/mcL (07/27/22 10:23 PM) Monocyte Absolute 0.38 x10(3)/mcL *NA* (07/27/22 10:23 PM) Eosinophil Absolute 0.06 x10(3)/mcL *NA* (07/27/22 10:23 PM) Basophil Absolute 0.06 x10(3)/mcL *NA* (07/27/22: PM) Imm Gran Absolute 0.01 /mcL *NA* (07/27/22: PM) NRBC % [0.0-0.2 %] 0.0 % (07/27/22: PM) Osmol Calculated 267 mOsm/kg *NA* (07/27/22: PM) Eosinophil Auto [1.0-4.0 %] 1.1 % (07/27/22: PM) Immature Granulocyte Auto 0 % *NA* (07/27/22: PM) Lymphocyte Auto [24.0-44.0 %] 29.5 % (07/27/22: PM) Monocyte Auto [2.0-11.0 %] 7.1 % (07/27/22: PM) Neutrophil Auto [31.0-76.0 %] 61.0 % (07/27/22: PM) Basophil Auto [0.0-2.0 %] 1.1 % (07/27/22 10: PM) Creatinine [0.6-1.3 mg/dL] 0.6 mg/dL (07/27/22: PM) Vital Signs Most recent to oldest [Reference Range]: 1 2 3 Temperature Oral [35.8-37.3 DegC] 36.8 DegC (07/27/22:15 PM) Peripheral Pulse Rate [60-100 bpm] 74 bpm (07/28/22 1:00 AM) 82 bpm (07/28/22 12:41 AM) 86 bpm (07/28/22 12:27 AM) Heart Rate Monitored [60-100 bpm] 76 bpm (07/28/22 1:00 AM) 81 bpm (07/28/22 12:41 AM) 91 bpm (07/28/22 12:27 AM) Respiratory Rate [14-20 br/min] 17 br/min (07/28/22 12:41 AM) 12 br/min *LOW* (07/28/22 12:27 AM) 18 br/min (07/27/22 6:15 PM) Blood Pressure [90-140/60-90 mmHg] 104/70mmHg (07/28/22 12:41 AM) 103/58mmHg (07/28/22 12:27 AM) Mean Arterial Pressure, Cuff 80 mmHg (07/28/22 12:41 AM) 72 mmHg (07/28/22 12:27 AM) Blood Pressure 119/69mmHg (07/27/22 6:15 PM) Social History Social History Type Response Tobacco Tobacco Use: Denies. Sex Female Hospital Discharge Instructions Patient Education 07/28/2022 00:31:25 Abdominal Pain, Adult, [id number] Abdominal Pain, Adult Many things can cause belly (abdominal) pain. Most times, belly pain is not dangerous. Many cases of belly pain can be watched and treated at home. Sometimes, though, belly pain is serious. Your doctor will try to find the cause of your belly pain. Follow these instructions at home: Medicines ??? Take [id number] and prescription medicines only as told by your doctor. ??? Do not take medicines that help you poop (laxatives) unless told by your doctor. General instructions ??? Watch your belly pain for any changes. ??? Drink enough fluid to keep your pee (urine) pale yellow. ??? Keep all follow-up visits as told by your doctor. This is important. Contact a doctor if: ??? Your belly pain changes or gets worse. ??? You are not hungry, or you lose weight without trying. ??? You are having trouble pooping (constipated) or have watery poop (diarrhea) for more than 2???3days. ??? You have pain when you pee or poop. ??? Your belly pain wakes you up at night. ??? Your pain gets worse with meals, after eating, or with certain foods. ??? You are vomiting and cannot keep anything down. ??? You have a fever. ??? You have blood in your pee. Get help right away if: ??? Your pain does not go away as soon as your doctor says it should. ??? You cannot stop vomiting. ??? Your pain is only in areas of your belly, such as the right side or the left lower part of the belly. ??? You have bloody or black poop, or poop that looks like tar. ??? You have very bad pain, cramping, or bloating in your belly. ??? You have signs of not having enough fluid or water in your body (dehydration), such as: ??? Dark pee, very little pee, or no pee. ??? Cracked lips. ??? Dry mouth. ??? Sunken eyes. ??? Sleepiness. ??? Weakness. ??? You have trouble breathing or chest pain. Summary ??? Many cases of belly pain can be watched and treated at home. ??? Watch your belly pain for any changes. ??? Take [id number] and prescription medicines only as told by your doctor. ??? Contact a doctor if your belly pain changes or gets worse. ??? Get help right away if you have very bad pain, cramping, or bloating in your belly. This information is not intended to replace advice given to you by your health care provider. Make sure you discuss any questions you have with your health care provider. Document Revised: 09/09/2019 Document Reviewed: 09/09/2019 Elsevier Patient Education ?? 2021 [employer]. Patient Care team information Care Team Personnel Name: No Local PCP No Local PCP, Member Role: Primary Care Physician Name: Naima Butts RN Position: ED Nurse Management Member Role: ED Nurse Name: LAVINIA CEDENO MD Position: Physician - ED Member Role: ED Physician Address: Address: [address] [place] [address]- Care Team Related Persons Name: BO PAYAN Address: Home [address] [place], [place] [id number] Name: BO PAYAN Address: Home [address], [place] [id number] Name: BO BOOKER Address: [place] [id number]
--- OUTSIDE RECORDS SUMMARY | 2022-11-20 17:51 | XMS_ITS | Continuity of Care Document ---
Author Name Unknown Organization [facility] Address Unknown Care Team Providers Care Medical Field Representative Name Role Phone RICARDO RUTH Primary Care Physician [phone] Encounter Date(s): 06/20/21 - 06/20/[address] [address] Encounter Diagnosis Chronic pelvic pain in female(Discharge Diagnosis) - 06/20/21 Vaginal discharge(Discharge Diagnosis) - 06/20/21 Discharge Disposition: AMA Attending Physician: BLANCA PEDROZA MD Admitting Physician: BLANCA PEDROZA MD Allergies, Adverse Reactions, Alerts Substance Reaction Severity Status penicillin Active Latex Active Haldol Active Compazine Muscle cramps Active Toradol Hives Active Medications Bentyl 20 mg oral tablet 20 mg = 1 tab(s), Oral, QID, # 28 tab(s), 0 Refill(s), Pharmacy: [id number], 165.1, cm, 03/30/21 18:41:00 EST, Height/Length Dosing, 90.7, kg, 03/30/21 18:41:00 EST, Weight Dosing Start Date: 03/30/21 Stop Date: 04/06/21 Status: Ordered Bentyl 20 mg oral tablet 20 mg = 1 tab(s), Oral, QID, # 28 tab(s), 0 Refill(s), Pharmacy: [id number], 163, cm, 02/03/21 15:44:00 [...] intramuscular injection, extended release 3.75 mg, IM, [id number], # 1 ea, 0 Refill(s) Start Date: 04/05/19 Status: Ordered Mirena 0 Refill(s) Start Date: 07/16/19 Status: Ordered montelukast 0 Refill(s) Start Date: 03/30/21 Status: Ordered norethindrone 5 mg oral tablet 0 Refill(s) Start Date: 05/18/19 Status: Ordered ondansetron 4 mg oral tablet, disintegrating 4 mg = 1 tab(s), Oral, q6hr, # 10 tab(s), 0 Refill(s), Pharmacy: [facility] #[id number], 162, cm, 09/01/19 10:41:00 EDT, Height/Length Dosing, 73, kg, 09/01/19 10:41:00 EDT, Weight Dosing Start Date: 09/01/19 Stop Date: 09/04/19 Status: Ordered Phenergan 25 mg rectal suppository = 1 suppository(ies), OR, q4hr, PRN PRN: as needed for nausea/vomiting, # 12 suppository(ies), 0 Refill(s), Pharmacy: [facility] #[id number], 162, cm, 05/18/19 18:42:47 EST, Height/Length Dosing, [...] nausea/vomiting, # 30 tab(s), 0 Refill(s), Pharmacy: [facility] #[id number], 163, cm, 07/29/19 11:21:00 EDT, Height/Length Dosing, 68.1, kg, 07/29/19 11:21:00 EDT, Weight Dosing Start Date: 07/29/19 Status: Ordered Mental Status 06/20/21 Orientation Assessment Oriented x 4 Problem List [...] Range]: 1 2 Temperature Oral [35.8-37.3 DegC] 36.6 D egC (06/20/21 12:59 AM) 36.6 DegC (06/20/21 12:22 AM) Peripheral Pulse Rate [60-100 bpm] 68 bp m (06/20/21 12:59 AM) 74 bpm (06/20/21 12:22 AM) Respiratory Rate [14-20 br/min] 16 br/mi n (06/20/21 12:59 AM) Blood Pressure 111/68mmHg (06/20/21 12:59 AM) 116/70mmHg (06/20/21 12:22 AM) Social History Social History Type Response Sex Female
--- OUTSIDE RECORDS SUMMARY | 2022-11-20 17:51 | XMS_ITS | Continuity of Care Document ---
Author Name Unknown Organization [facility] Address Unknown Care Team Providers Care Shoe Packer Name Role Phone No Local PCP, No Local PCP Primary Care Physicia n Unavailable Encounter Date(s): 12/06/21 - 12/06/21 [facility] [address], [place] [address] Encounter Diagnosis Chronic anemia(Discharge Diagnosis) - 12/06/21 Endometriosis(Discharge Diagnosis) - 12/06/21 Discharge Disposition: Home or Self Care Attending Physician: KONSTANTIN CARTY MD Admitting Physician: KONSTANTIN CARTY MD Allergies, Adverse Reactions, Alerts Substance Reaction Severity Status penicillin Active droperidol Active Latex Active Haldol Active Compazine Muscle cramps Active Toradol Hives Active Assessment and Plan Diagnostic Tests Pending * Chlamydia Gonorrhea PCR Panel 12/06/21 Medications Bentyl 20 mg oral tablet 20 mg = 1 tab(s), Oral, QID, # 28 tab(s), 0 Refill(s), Pharmacy: [id number], 165.1, cm, 03/30/21 18:41:00 EST, Height/Length Dosing, 90.7, kg, 03/30/21 18:41:00 EST, Weight Dosing Start Date: 03/30/21 Stop Date: 04/06/21 Status: Ordered Bentyl 20 mg oral tablet 20 mg = 1 tab(s), Oral, QID, # 28 tab(s), 0 Refill(s), Pharmacy: [id number], 163, cm, 02/03/21 15:44:00 EDT, [...] intramuscular injection, extended release 3.75 mg, IM, [id number], # 1 ea, 0 Refill(s) Start Date: 04/05/19 Status: Ordered Mirena 0 Refill(s) Start Date: 07/16/19 Status: Ordered montelukast 0 Refill(s) Start Date: 03/30/21 Status: Ordered norethindrone 5 mg oral tablet 0 Refill(s) Start Date: 05/18/19 Status: Ordered ondansetron 4 mg oral tablet, disintegrating 4 mg = 1 tab(s), Oral, q6hr, # 10 tab(s), 0 Refill(s), Pharmacy: [facility] #[id number], 162, cm, 09/01/19 10:41:00 EDT, Height/Length Dosing, 73, kg, 09/01/19 10:41:00 EDT, Weight Dosing Start Date: 09/01/19 Stop Date: 09/04/19 Status: Ordered oxyCODONE 5 mg oral tablet 5 mg = 1 tab(s), Oral, q6hr, PRN PRN: for pain, # 5 tab(s), 0 Refill(s), Pharmacy: [facility] #[id number], 167, cm, 11/16/21 23:18:00 EDT, Height/Length Dosing, 75.2, kg, 12/06/21 12:31:00 EDT, Weight Dosing Start Date: 12/06/21 Status: Ordered Phenergan 25 mg rectal suppository = 1 suppository(ies), AK, q4hr, PRN PRN: as needed for nausea/vomiting, # 12 suppository(ies), 0 Refill(s), Pharmacy: [facility] #[id number], 162, cm, 05/18/19 18:42:47 EST, Height/Length Dosing, [...] nausea/vomiting, # 30 tab(s), 0 Refill(s), Pharmacy: [facility] #[id number], 163, cm, 07/29/19 11:21:00 EDT, Height/Length Dosing, 68.1, kg, 07/29/19 11:21:00 EDT, Weight Dosing Start Date: 07/29/19 Status: Ordered Mental Status 12/06/21 Orientation Assessment Oriented x 4 Problem List [...] Laboratory List Name Date Hemoglobin and Hematocrit (Hgb & Hct) .Estimated Glomerular Filtration Rate Auto Differential 12/06/21 Basic Metabolic Panel 12/06/21 CBC Auto Diff reflex Manual Diff 12/06/21 Urinalysis Microscopic Add On Only Urinalysis Reflex Microscopic, Culture i f 12/06/21 Most recent to oldest [Reference Range]: 1 2 UA Appear Cloudy *NA* (12/06/21 1:49 PM) Bacteria 4+ *ABN* (12/06/21 1:49 PM) UA Bili Negative *NA* (12/06/21 1:49 PM) UA Blood Negative *NA* (12/06/21 1:49 PM) UA Color Yellow *NA* (12/06/21 1:49 PM) UA Glucose Negative *NA* (12/06/21 1:49 PM) UA Ketones Negative *NA* (12/06/21 1:49 PM) UA Leuk Est Trace *ABN* (12/06/21 1:49 PM) UA Nitrite Negative *NA* (12/06/21 1:49 PM) UA Protein Negative *NA* (12/06/21 1:49 PM) Red Blood Cells <2 *NA* (12/06/21 1:49 PM) UA Urobilinogen 0.2 1 (12/06/21 1:49 PM) White Blood Cells 4-10 *ABN* (12/06/21 1:49 PM) Microscopic Indicated Yes *NA* (12/06/21 1:49 PM) Casts <1 *NA* (12/06/21 1:49 PM) AGAP 8 *NA* (12/06/21 1:49 PM) RBC [4.00-5.20 x10(6)/mcL] 4.03 x10(6)/m cL (12/06/21 1:49 PM) RDW [11.5-14.5 %] 14.5 % (12/06/21 1:49 PM) Sodium Level [136-145 mmol/L] 137 mmol/L (12/06/21 1:49 PM) CO2 [21-32 mmol/L] 27 mmol/L (12/06/21 1:49 PM) UA pH [5.0-9.0] 6.0 (12/06/21 1:49 PM) Hct [36.0-46.0 %] 29.8 % *LOW* (12/06/21 3:44 PM) 31.9 % *LOW* (12/06/21 1:49 PM) Hgb [12.0-15.0 gm/dL] 9.2 gm/dL *LOW* (12/06/21 3:44 PM) 9.9 gm/dL *LOW* (12/06/21 1:49 PM) MCH [26.0-34.0 pg] 24.6 pg *LOW* (12/06/21 1:49 PM) MCHC [31.0-37.0 gm/dL] 31.0 gm/dL (12/06/21 1:49 PM) MCV [80-100 fL] 79 fL *LOW* (12/06/21 1:49 PM) MPV [9.2-12.7 fL] 11.9 fL (12/06/21 1:49 PM) Glucose Level [74-106 mg/dL] 94 mg/dL (12/06/21 1:49 PM) Platelet [150-350 x10(3)/mcL] 254 x10(3) /mcL (12/06/21 1:49 PM) Potassium Level [3.5-5.1 mmol/L] 3.7 mmo l/L (12/06/21 1:49 PM) UA Spec Grav [1.000-1.060] 1.019 (12/06/21 1:49 PM) WBC [4.5-11.0 x10(3)/mcL] 5.2 x10(3)/mcL (12/06/21 1:49 PM) BUN [7-18 mg/dL] 9 mg/dL (12/06/21 1:49 PM) Calcium Level [8.5-10.1 mg/dL] 9.2 mg/dL (12/06/21 1:49 PM) Chloride [98-107 mmol/L] 106 mmol/L (12/06/21 1:49 PM) eGFR AA >60 mL/min/1.73 m2 *NA* (12/06/21 1:49 PM) eGFR BRUNO >60 mL/min/1.73 m2 *NA* (12/06/21 1:49 PM) Neutrophil Absolute [1.50-7.80 x10(3)/mc L] 3.31 x10(3)/mcL (12/06/21 1:49 PM) Lymphocyte Absolute [1.10-4.80 x10(3)/mc L] 1.42 x10(3)/mcL (12/06/21 1:49 PM) Monocyte Absolute 0.29 x10(3)/mcL *NA* (12/06/21 1:49 PM) Eosinophil Absolute 0.09 x10(3)/mcL *NA* (12/06/21 1:49 PM) Basophil Absolute 0.05 x10(3)/mcL *NA* (12/06/21 1:49 PM) Imm Gran Absolute 0.02 /mcL *NA* (12/06/21 1:49 PM) NRBC % [0.0-0.2 %] 0.0 % (12/06/21 1:49 PM) Culture Indicated Not Indicated 2 *NA* (12/06/21 1:49 PM) Eosinophil Auto [1.0-4.0 %] 1.7 % (12/06/21 1:49 PM) Immature Granulocyte Auto 0 % *NA* (12/06/21 1:49 PM) Lymphocyte Auto [24.0-44.0 %] 27.4 % (12/06/21 1:49 PM) Monocyte Auto [2.0-11.0 %] 5.6 % (12/06/21 1:49 PM) Neutrophil Auto [31.0-76.0 %] 63.9 % (12/06/21 1:49 PM) Basophil Auto [0.0-2.0 %] 1.0 % (12/06/21 1:49 PM) hCG POC Negative (12/06/21 2:11 PM) Creatinine [0.6-1.3 mg/dL] 0.8 mg/dL (12/06/21 1:49 PM) UA Epithelial Cells 3+ *NA* (12/06/21 1:49 PM) 1Result Comment: Urobilinogen result is equal to the Semiquantitative Result of: NORMAL 2Result Comment: The urinalysis criteria for a culture indicated were not met due to likely contamination of the specimen with normal bacterial chino. A clean catch urine specimen should be collected if a possible culture is desired. Orders for Microbiology Reports Name Date GTY Probe 12/06/21 Microbiology Reports TEST:GTY Probe1 STATUS:Auth (Verified) BODY SITE: SOURCE:Vag COLLECTED DATE/TIME:12/06/21 5:12 PM FINAL REPORT Gardnerella vaginalis probe: Positive Mary species probe: Negative Trichomonas species probe: Negative INTERPRETIVE DATA 1Gardnerella is an indicator organism of the condition Bacterial Vaginosis. While this organism can be present in normal vaginal specimens, only clinically significant concentrations of Gardnerella are detected by the [employer] SALES ENGINEER ACCOUNT MANAGER III. As with all laboratory tests, results should be evaluated with clinical signs and symptoms. Radiology Reports * Exam Date Time Procedure Performing Provider Status 12/06/21 3:26 PM US Transvaginal Non-OB Mo dified US Transvaginal HARP REGULATOR- [id number] PROCEDURE: US Transvaginal HARP REGULATOR- [id number] CLINICAL INDICATION: Vaginal bleeding, pelvic pain COMPARISON: None. TECHNIQUE: Endovaginal sonogram of the pelvis is performed. Color Doppler and spectral waveforms were performed. Images were captured. FINDINGS: Uterus: The uterus is normal in size and echogenicity. It measures 7 x 3.1 x 4.8cm with volume of 54 ml. The endometrium is normal in echogenicity and thickness. The endometrium measures 3 mm. Right ovary: The right ovary measures 1.5 x 2.5 x 1.8 cm. There is no solid or complex ovarian mass. There are no adnexal masses. Normal color Doppler and spectral waveforms demonstrated to the right ovary. Left ovary: Nonvisualization of the left ovary. Fluid: Small amount of free fluid in the cul-de-sac. IMPRESSION: 1. No sonographic evidence of ovarian torsion of the right ovary. 2. Nonvisualization of the left ovary. 3. No acute abnormality identified. 4. Small amount of free fluid in the cul-de-sac, likely physiologic. Electronically Signed by: Dayton Arthur DO 12/06/2021 3:50 PM * Exam Date Time Procedure Performing Provider Status 12/06/21 3:26 PM US Art/Vein Abd/Pelv is/Scrotal Limited Auth (Verified) US Doppler Abd/Pelvic Limited- [id number] PROCEDURE: US Doppler Abd/Pelvic Limited- [id number] CLINICAL INDICATION: Vaginal bleeding, pevlic pain COMPARISON: None. TECHNIQUE: Endovaginal sonogram of the pelvis is performed. Color Doppler and spectral waveforms were performed. Images were captured. FINDINGS: Uterus: The uterus is normal in size and echogenicity. It measures 7 x 3.1 x 4.8cm with volume of 54 ml. The endometrium is normal in echogenicity and thickness. The endometrium measures 3 mm. Right ovary: The right ovary measures 1.5 x 2.5 x 1.8 cm. There is no solid or complex ovarian mass. There are no adnexal masses. Normal color Doppler and spectral waveforms demonstrated to the right ovary. Left ovary: Nonvisualization of the left ovary. Fluid: Small amount of free fluid in the cul-de-sac. IMPRESSION: 1. No sonographic evidence of ovarian torsion of the right ovary. 2. Nonvisualization of the left ovary. 3. No acute abnormality identified. 4. Small amount of free fluid in the cul-de-sac, likely physiologic. Electronically Signed by: Dayton Arthur DO 12/06/2021 3:50 PM Vital Signs Most recent to oldest [Reference Range]: 1 2 3 Temperature Oral [35.8-37.3 DegC] 36.7 DegC (12/06/21 12:31 PM) Peripheral Pulse Rate [60-100 bpm] 76 bpm (12/06/21 5:26 PM) 74 bpm (12/06/21 3:52 PM) 87 bpm (12/06/21 12:31 PM) Respiratory Rate [14-20 br/min] 18 br/min (12/06/21 5:26 PM) 18 br/min (12/06/21 3:52 PM) 18 br/min (12/06/21 12:31 PM) Blood Pressure [90-140/60-90 mmHg] 102/62mmHg (12/06/21 5:26 PM) 109/66mmHg (12/06/21 3:52 PM) Mean Arterial Pressure, Cuff 75 mmHg (12/06/21 5:26 PM) 76 mmHg (12/06/21 3:52 PM) Blood Pressure 108/70mmHg (12/06/21 12:31 PM) Social History Social History Type Response Sex Female Consult note * FRANCIS REYES MD: PERFORM, MODIFY Event Display: Consultation Authored Date: Consultation Note History of Present Illness Reason for consult: The patient is being seen in the??ED tonight at the request of ??Konstantin Carty??for the evaluation of vaginal bleeding. I have reviewed the available records, interviewed and examined the patient. ?? General Interim History: The patient is a??21 year old G??0?P??0?premenopausal female who presents for??abdominal painand vaginal bleeding to the emergency room.?? She also presents with the following complaints or concerns: ?? She is followed by gynecology at [facility]. ??The patient states that she has had multiple laparoscopies. ??She states she has??stage IV endometriosis.?? She states that she recently had an ultrasound study??at [facility] that caused vaginal tearing and therefore she had a vaginal??procedure including stitches to the vaginal area. ?? She reports having heavy vaginal bleeding with passage of clots.?? She is on 5 mg of norethindrone therapy daily.?? She states that??she was previously on??Lupron therapy but??has not taken this for almost 3 years.?? She is followed for endometriosis by environmental remediation engineer at [facility].?? She has follow-upscheduled in 3 weeks timeframe. ?? She had normal ultrasound imaging today without??evidence of ovarian torsion. ??Her vital signs were stable.?? She has a history of chronic anemia??and her current??H&H??have improved from previous.?? She has had multiple emergency room visits??for many complaints. ?? Her test is negative today. States that she has not been sexually active for several months.?? Possibly 6 months.?? Has severe dyspareunia from her endometriosis. ?? Agreeable to a pelvic exam Review of Systems The patients complete 14-point review of systems is noted on her intake questionnaire which was fully reviewed with the patient and is incorporated into her medical record.?? The review of systems isnegative with exception of pertinent positives above. ?? Physical Exam Vitals & Measurements T:??36.7?C ??(Oral)?? HR:??76??(Peripheral)?? RR:??18?? BP:??102/62?? SpO2:??100%?? WT:??75.2??kg??(Measured)?? WT:??75.2??kg??(Dosing)?? GENERAL APPEARANCE: Normal appearing female, pleasant mood, normal speech, weight healthy. HEENT: Head - Normocephalic, atraumatic.?? Eyes- pupil pills are equal, round and reactive to light, extraocular movements are intact, normal conjunctiva. ORAL CAVITY: normal, clear, no lesions. Mucous membranes are moist. No rashes, lesions or ulcers. NECK: neck supple, full ROM, w/o thyromegaly. HEART: regular rate and rhythm, no murmurs or gallops appreciated. LUNGS: clear to auscultation bilaterally. No reveals present, no rhonchi present, regular breath sounds present, no pleural friction rub present, no wheezes present. ABDOMEN: no palpable masses or organomegaly, soft, non-tender, no appreciable hernia.?? Bowel sounds x4 quadrants FEMALE PELVIC EXAM:??Vulva, Katonah???s and Bartholin glands normal, urethra without tenderness or mass. Vagina: well estrogenized, discharge normal, cervix ??? no discharge or lesions, no bleeding. Bimanual: 1 finger bimanual exam, midplanar uterus, smooth, mobile. Left adnexa: non tender and no masses. Right adnexa: non-tender and no masses. Rectovaginal exam:??Deferred.?? Scant??pink discharge on the examining finger.?? No heavy bleeding and no clots. LYMPH NODES: no axillary nodes, cervical nodes, supraclavicular nodes. NEUROLOGIC EXAM: No paraspinuous tenderness; saddle sensory function (S2-4) intact in the pelvic area to touch; deep tendon reflexes at knee 2+ bilaterally. SKIN: Skin of abdomen and pelvis normal. EXTREMITIES: Full ROM, no limitations. PERIPHERAL PULSES: normal (2+) bilaterally. BACK: without point tenderness, no lesions. PSYCHIATRIC:?? Appropriate mood and affect.?? Lab Results Chemistry BUN: 9 mg/dL (12/06/21 13:49:00) Calcium Level: 9.2 mg/dL (12/06/21 13:49:00) Chloride: 106 mmol/L (12/06/21 13:49:00) Creatinine: 0.8 mg/dL (12/06/21 13:49:00) Glucose Level: 94 mg/dL (12/06/21 13:49:00) Potassium Level: 3.7 mmol/L (12/06/21 13:49:00) Sodium Level: 137 mmol/L (12/06/21 13:49:00) Hematology Hct:??29.8 %??Low (12/06/21 15:44:00) Hgb:??9.2 gm/dL??Low (12/06/21 15:44:00) Platelet: 254 x10(3)/mcL (12/06/21 13:49:00) RBC: 4.03 x10(6)/mcL (12/06/21 13:49:00) WBC: 5.2 x10(3)/mcL (12/06/21 13:49:00) Urinalysis Microscopic Indicated: Yes (12/06/21 13:49:00) UA Appear: Cloudy Iris (12/06/21 13:49:00) UA Bili: Neg Iris (12/06/21 13:49:00) UA Blood: Neg Iris (12/06/21 13:49:00) UA Color: Yellow Iris (12/06/21 13:49:00) UA Glucose: Neg Iris (12/06/21 13:49:00) UA Ketones: Neg Iris (12/06/21 13:49:00) UA Leuk Est: Trace Abnormal (12/06/21 13:49:00) UA Nitrite: Neg Iris (12/06/21 13:49:00) UA pH: 6 (12/06/21 13:49:00) UA Protein: Neg Iris (12/06/21 13:49:00) UA Spec Grav: 1.019 (12/06/21 13:49:00) UA Urobilinogen: 0.2 (12/06/21 13:49:00) Diagnostic Results ? UTRANSGYN This document has an image ?? US Transvaginal HARP REGULATOR- [id number] PROCEDURE: ??US Transvaginal HARP REGULATOR- [id number] ?? CLINICAL INDICATION: ??Vaginal bleeding, pelvic pain ?? COMPARISON: None. ?? TECHNIQUE: ??Endovaginal sonogram of the pelvis is performed. Color?? Doppler and spectral waveforms were performed. Images were captured. ?? FINDINGS: ? Uterus: The uterus is normal in size and echogenicity. It measures 7?? x 3.1 x 4.8cm with volume of 54 ml.? The endometrium is normal in echogenicity and thickness. ??The?? endometrium measures 3 mm. ?? Right ovary: ??The right ovary measures 1.5 x 2.5 x 1.8 cm. There is?? no solid or complex ovarian mass. There are no adnexal masses. Normal?? color Doppler and spectral waveforms demonstrated to the right ovary. ?? Left ovary: Nonvisualization of the left ovary. ?? Fluid: Small amount of free fluid in the cul-de-sac. ?? IMPRESSION: ?? 1. ??No sonographic evidence of ovarian torsion of the right ovary. 2. ??Nonvisualization of the left ovary. 3. ??No acute abnormality identified. 4. ??Small amount of free fluid in the cul-de-sac, likely physiologic. ?? Electronically Signed by: Dayton Arthur DO 12/06/2021 3:50 PM ?? [1] Additional Data Reviewed EMR records reviewed Previous imaging studies reviewed ED visits reviewed ?? Assessment/Plan 21 year old G??0?P??0?premenopausal female who presents for??abdominal pain and vaginal bleeding to the emergency room. Based on history and??clinical exam, she is not having ongoing vaginal bleeding.?? Very minimal??bleeding to spotting was appreciated today.?? She will receive 1 g of IV TXA??prior to discharge home. Ultrasound imaging was reviewed with her and she was reassured that the findings appear normal She initially desired admission to the hospital for pain management and bleeding. Reviewed with her that she will likely benefit from outpatient follow-up with her primary environmental remediation engineer at [facility].?? She already has follow-up arranged. ?? She will be discharged home. ??Records will be sent to her environmental remediation engineer. ?? Coordination of Care ED, HARP REGULATOR Time Spent With Patient I spent 60 minutes on the unit caring the patient, more than half of it in [id number] discussion with the patient reviewing the findings above and discussing??ongoing management for the same.?? Thepatient was ready to learn, no apparent learning barriers were identified; learning preferences included listening. Explained diagnosis and treatment plan; patient expressed understanding of the content.?? She was given the opportunity to ask questions and all of her questions were answered to her satisfaction.?? Problem List/Past Medical History Ongoing Anxiety Asthma Depression Endometriosis Methicillin resistant Staphylococcus aureus Historical No qualifying data Medications Inpatient No active inpatient medications Home Bentyl 20 mg oral tablet, 20 mg, 1 tab(s), Oral, QID Bentyl 20 mg oral tablet, 20 mg, 1 tab(s), Oral, QID,?Not taking CeleBREX, 200 mg, Oral, BID,?Not taking Extra Strength Tylenol Menstrual gabapentin, 400 mg, Oral, Daily hydrOXYzine ibuprofen Lupron Depot 3.75 mg/month intramuscular injection, extended release, 3.75 mg, IM, [id number],?Nottaking Mirena,?Not taking montelukast norethindrone 5 mg oral tablet,?Not taking ondansetron 4 mg oral tablet, disintegrating, 4 mg, 1 tab(s), Oral, q6hr,?Not taking Phenergan 25 mg rectal suppository, 1 suppository(ies), AK, q4hr, PRN,?Not taking sertraline tiZANidine traZODone Zofran ODT 4 mg oral tablet, disintegrating, 4 mg, 1 tab(s), Oral, q8hr, PRN,?Not taking Allergies Compazine??(Muscle cramps) Haldol Latex Toradol??(Hives) droperidol penicillin Social History Alcohol - Denies Alcohol Use Current, 1-2 times per month Current, 1-2 times per month Home/Environment Feels unsafe at home: No. Feels unsafe at home: No. Feels unsafe at home: No. Substance Abuse - Denies Substance Abuse Current, Marijuana, 1-2 times per week Tobacco - Denies Tobacco Use [1]??US Transvaginal HARP REGULATOR- [id number]; 12/06/2021 15:26 EDT Electronically Signed By: FRANCIS REYES MD Date and Time Signed: 12/07/21 01:44 EDT US Pelvis transvaginal * Event Display: US Transvaginal Non-OB Authored Date: [id number] PROCEDURE: US Transvaginal HARP REGULATOR- [id number] CLINICAL INDICATION: Vaginal bleeding, pelvic pain COMPARISON: None. TECHNIQUE: Endovaginal sonogram of the pelvis is performed. Color Doppler and spectral waveforms were performed. Images were captured. FINDINGS: Uterus: The uterus is normal in size and echogenicity. It measures 7 x 3.1 x 4.8cm with volume of 54 ml. The endometrium is normal in echogenicity and thickness. The endometrium measures 3 mm. Right ovary: The right ovary measures 1.5 x 2.5 x 1.8 cm. There is no solid or complex ovarian mass. There are no adnexal masses. Normal color Doppler and spectral waveforms demonstrated to the right ovary. Left ovary: Nonvisualization of the left ovary. Fluid: Small amount of free fluid in the cul-de-sac. IMPRESSION: 1. No sonographic evidence of ovarian torsion of the right ovary. 2. Nonvisualization of the left ovary. 3. No acute abnormality identified. 4. Small amount of free fluid in the cul-de-sac, likely physiologic. Electronically Signed by: Dyaton Arthur DO 12/06/2021 3:50 PM Note * Event Display: US Art/Vein Abd/Pelvis/Scrotal Limited Authored Date: [id number] PROCEDURE: US Doppler Abd/Pelvic Limited- [id number] CLINICAL INDICATION: Vaginal bleeding, pevlic pain COMPARISON: None. TECHNIQUE: Endovaginal sonogram of the pelvis is performed. Color Doppler and spectral waveforms were performed. Images were captured. FINDINGS: Uterus: The uterus is normal in size and echogenicity. It measures 7 x 3.1 x 4.8cm with volume of 54 ml. The endometrium is normal in echogenicity and thickness. The endometrium measures 3 mm. Right ovary: The right ovary measures 1.5 x 2.5 x 1.8 cm. There is no solid or complex ovarian mass. There are no adnexal masses. Normal color Doppler and spectral waveforms demonstrated to the right ovary. Left ovary: Nonvisualization of the left ovary. Fluid: Small amount of free fluid in the cul-de-sac. IMPRESSION: 1. No sonographic evidence of ovarian torsion of the right ovary. 2. Nonvisualization of the left ovary. 3. No acute abnormality identified. 4. Small amount of free fluid in the cul-de-sac, likely physiologic. Electronically Signed by: Dayton Arthur DO 12/06/2021 3:50 PM Care Team Care Team Personnel Name: No Local PCP No Local PCP, Med Service: NO LOCAL PCP Member Role: Primary Care Physician Care Team Related Persons Name: BO PAYAN Address: [address] [id number] Name: BO PAYAN Address: Home [address] [place] [phone] Name: BO BOOKER
--- OUTSIDE RECORDS SUMMARY | 2022-11-20 17:51 | XMS_ITS | Continuity of Care Document ---
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 Encounter Diagnosis History of nausea and vomiting(Discharge Diagnosis) - 02/03/21 Abdominal pain of unknown cause(Discharge Diagnosis) - 02/03/21 Discharge Disposition: Home or Self Care Attending Physician: TAMIE BURR MD Admitting Physician: TAMIE BURR MD Allergies, Adverse Reactions, Alerts Substance Reaction Severity Status penicillin Active Latex Active Compazine Muscle cramps Active Toradol Hives Active Medications Bentyl 20 mg oral tablet 20 mg = 1 tab(s), Oral, QID, # 28 tab(s), 0 Refill(s), Pharmacy: [id number], 163, cm, 02/03/21 15:44:00 EDT, Height/Length Dosing, 95.3, kg, 02/03/21 15:44:00 EDT, Weight Dosing Start Date: 02/03/21 Stop Date: 02/10/21 Status: Ordered CeleBREX 200 mg, Oral, BID Start Date: 05/25/19 Status: Ordered Lupron Depot 3.75 mg/month intramuscular injection, extended release 3.75 mg, IM, l8rxeth, # 1 ea, 0 Refill(s) Start Date: 04/05/19 Status: Ordered Mirena 0 Refill(s) Start Date: 07/16/19 Status: Ordered norethindrone 5 mg oral tablet 0 Refill(s) Start Date: 05/18/19 Status: Ordered ondansetron 4 mg oral tablet 4 mg = 1 tab(s), Oral, q8hr, PRN PRN: nausea, Dispensed to you by ED nurse for home use, # 3 tab(s), 0 Refill(s), Homepack given to Patient (Rx) Start Date: 02/03/21 Stop Date: 02/04/21 Status: Ordered ondansetron 4 mg oral tablet, disintegrating 4 mg = 1 tab(s), Oral, q6hr, # 10 tab(s), 0 Refill(s), Pharmacy: [facility] #[id number], 162, cm, 09/01/19 10:41:00 EDT, Height/Length Dosing, 73, kg, 09/01/19 10:41:00 EDT, Weight Dosing Start Date: 09/01/19 Stop Date: 09/04/19 Status: Ordered Phenergan 25 mg rectal suppository = 1 suppository(ies), SD, q4hr, PRN PRN: as needed for nausea/vomiting, # 12 suppository(ies), 0 Refill(s), Pharmacy: [facility] #[id number], 162, cm, 05/18/19 18:42:47 EST, Height/Length Dosing, 73, kg, 05/18/19 18:42:47 EST, Weight Dosing Start Date: 05/21/19 Status: Ordered Zofran 4 mg oral tablet 4 mg = 1 tab(s), Oral, q8hr, PRN PRN: as needed for nausea/vomiting, # 12 tab(s), 0 Refill(s), Pharmacy: [id number], 163, cm, 02/03/21 15:44:00 EDT, Height/Length Dosing, 95.3, kg, 02/03/21 15:44:00 EDT, Weight Dosing Start Date: 02/03/21 Stop Date: 02/04/21 Status: Ordered Zofran ODT 4 mg oral tablet, disintegrating 4 mg = 1 tab(s), Oral, q8hr, PRN PRN: as needed for nausea/vomiting, # 30 tab(s), 0 Refill(s), Pharmacy: [facility] #[id number], 163, cm, 07/29/19 11:21:00 EDT, Height/Length Dosing, 68.1, kg, 07/29/19 11:21:00 EDT, Weight Dosing Start Date: 07/29/19 Status: Ordered Mental Status 02/03/21 Orientation Assessment Oriented x 4 Problem List Condition Effective Dates Status Health Status Inform ant Anxiety(Confirmed) Active Asthma(Confirmed) Active Depression(Confirmed) Active Endometriosis(Confirmed) Active Results Laboratory List Name Date .Estimated Glomerular Filtration Rate Auto Differential 02/03/21 CBC Auto Diff reflex Manual Diff 02/03/21 Comprehensive Metabolic Panel 02/03/21 Lipase Level 02/03/21 Most recent to oldest [Reference Range]: 1 AGAP 10 *NA* (02/03/21 4:15 PM) A/G Ratio 1.0 *NA* (02/03/21 4:15 PM) BUN/Creat Ratio 11 *NA* (02/03/21 4:15 PM) RBC [4.00-5.20 x10(6)/mcL] 4.68 x10(6)/m cL (02/03/21 4:15 PM) RDW [11.5-14.5 %] 18.6 % *HI* (02/03/21 4:15 PM) Sodium Level [136-145 mmol/L] 140 mmol/L (02/03/21 4:15 PM) Total Protein [6.4-8.2 gm/dL] 8.2 gm/dL (02/03/21 4:15 PM) AST [15-37 IU/L] 19 IU/L (02/03/21 4:15 PM) Bili Total [0.20-1.00 mg/dL] 0.38 mg/dL (02/03/21 4:15 PM) CO2 [21-32 mmol/L] 26 mmol/L (02/03/21 4:15 PM) Albumin Level [3.4-5.0 gm/dL] 4.2 gm/dL (02/03/21 4:15 PM) Alk Phos [48-129 unit/L] 59 unit/L (02/03/21 4:15 PM) ALT [13-61 IU/L] 24 IU/L (02/03/21 4:15 PM) Hct [36.0-46.0 %] 35.3 % *LOW* (02/03/21 4:15 PM) Hgb [12.0-15.0 gm/dL] 10.8 gm/dL *LOW* (02/03/21 4:15 PM) Lipase Lvl [73-393 IU/L] 71 IU/L *LOW* (02/03/21 4:15 PM) MCH [26.0-34.0 pg] 23.1 pg *LOW* (02/03/21 4:15 PM) MCHC [31.0-37.0 gm/dL] 30.6 gm/dL *LOW* (02/03/21 4:15 PM) MCV [80-100 fL] 75 fL *LOW* (02/03/21 4:15 PM) MPV [9.2-12.7 fL] 10.2 fL (02/03/21 4:15 PM) Glucose Level [74-106 mg/dL] 82 mg/dL (02/03/21 4:15 PM) Platelet [150-350 x10(3)/mcL] 245 x10(3) /mcL (02/03/21 4:15 PM) Potassium Level [3.5-5.1 mmol/L] 3.7 mmo l/L (02/03/21 4:15 PM) WBC [4.5-11.0 x10(3)/mcL] 5.5 x10(3)/mcL (02/03/21 4:15 PM) BUN [7-18 mg/dL] 9 mg/dL (02/03/21 4:15 PM) Calcium Level [8.5-10.1 mg/dL] 9.2 mg/dL (02/03/21 4:15 PM) Chloride [98-107 mmol/L] 108 mmol/L *HI* (02/03/21 4:15 PM) eGFR AA >60 mL/min/1.73 m2 *NA* (02/03/21 4:15 PM) eGFR BRUNO >60 mL/min/1.73 m2 *NA* (02/03/21 4:15 PM) Neutrophil Absolute [1.50-7.80 x10(3)/mc L] 3.19 x10(3)/mcL (02/03/21 4:15 PM) Lymphocyte Absolute [1.10-4.80 x10(3)/mc L] 1.75 x10(3)/mcL (02/03/21 4:15 PM) Monocyte Absolute 0.33 x10(3)/mcL *NA* (02/03/21 4:15 PM) Eosinophil Absolute 0.12 x10(3)/mcL *NA* (02/03/21 4:15 PM) Basophil Absolute 0.05 x10(3)/mcL *NA* (02/03/21 4:15 PM) Imm Gran Absolute 0.02 /mcL *NA* (02/03/21 4:15 PM) NRBC % [0.0-0.2 %] 0.0 % (02/03/21 4:15 PM) Osmol Calculated 277 mOsm/kg *NA* (02/03/21 4:15 PM) Eosinophil Auto [1.0-4.0 %] 2.2 % (02/03/21 4:15 PM) Immature Granulocyte Auto 0 % *NA* (02/03/21 4:15 PM) Lymphocyte Auto [24.0-44.0 %] 32.1 % (02/03/21 4:15 PM) Monocyte Auto [2.0-11.0 %] 6.0 % (02/03/21 4:15 PM) Neutrophil Auto [31.0-76.0 %] 58.4 % (02/03/21 4:15 PM) Basophil Auto [0.0-2.0 %] 0.9 % (02/03/21 4:15 PM) hCG POC Negative (02/03/21 4:46 PM) Creatinine [0.6-1.3 mg/dL] 0.8 mg/dL (02/03/21 4:15 PM) Leukocytes Urine Dipstick Negative (02/03/21 4:46 PM) Nitrite Urine Dipstick Negative (02/03/21 4:46 PM) Urobilinogen Urine Dipstick 0.2 mg/dl (02/03/21 4:46 PM) Protein Urine Dipstick 1+ (30 mg/dl) (02/03/21 4:46 PM) pH Urine Dipstick 7.5 (02/03/21 4:46 PM) Blood Urine Dipstick Large (02/03/21 4:46 PM) Specific [place] Urine Dipstick 1.025 (02/03/21 4:46 PM) Ketones Urine Dipstick Negative (02/03/21 4:46 PM) Bilirubin Urine Dipstick Negative (02/03/21 4:46 PM) Glucose Urine Dipstick Negative (02/03/21 4:46 PM) Urine Color Urine Dipstick Lauren (02/03/21 4:46 PM) Vital Signs Most recent to oldest [Reference Range]: 1 2 3 Temperature Oral [35.8-37.3 DegC] 36.9 DegC (02/03/21 3:44 PM) Temperature Temporal Artery [36.3-37.8 DegC] 36.9 DegC (02/03/21 6:32 PM) Peripheral Pulse Rate [60-100 bpm] 109 bpm *HI* (02/03/21 7:30 PM) 73 bpm (02/03/21 7:15 PM) 89 bpm (02/03/21 7:00 PM) Respiratory Rate [14-20 br/min] 20 br/min (02/03/21 3:44 PM) Blood Pressure [90-140/60-90 mmHg] 103/73mmHg (02/03/21 7:15 PM) 103/73mmHg (02/03/21 7:00 PM) 110/69mmHg (02/03/21 6:45 PM) Mean Arterial Pressure, Cuff 82 mmHg (02/03/21 7:15 PM) 82 mmHg (02/03/21 7:00 PM) 81 mmHg (02/03/21 6:45 PM) Blood Pressure 115/66mmHg (02/03/21 3:44 PM) Social History Social History Type Response Sex Female Hospital Discharge Instructions Patient Education 02/03/2021 21:07:44 Viral Gastroenteritis, Adult, [id number] Viral Gastroenteritis, Adult Viral gastroenteritis is also known as the stomach flu. This condition may affect your stomach, your small intestine, and your large intestine. It can cause sudden watery poop (diarrhea), fever, and throwing up (vomiting). This condition is caused by certain germs (viruses). These germs can be passed from person to person very easily (are contagious). Having watery poop and throwing up can make you feel weak and cause you to not have enough water inyour body (get dehydrated). This can make you tired and thirsty, make you have a dry mouth, and make it so you pee (urinate) less often. It is important to replace the fluids that you lose from having watery poop and throwing up. What are the causes? You can get sick by catching viruses from other people. ??? You can also get sick by: ??? Eating food, drinking water, or touching a surface that has the viruses on it (is contaminated). ??? Sharing utensils or other personal items with a person who is sick. What increases the risk? Having a weak body defense system (immune system). ??? Living with one or more children who are younger than 2 years old. ??? Living in a jail. ??? Going on cruise ships. What are the signs or symptoms? Symptoms of this condition start suddenly. Symptoms may last for a few days or for as long as a week. ??? Common symptoms include: ??? Watery poop. ??? Throwing up. ??? Other symptoms include: ??? Fever. ??? Headache. ??? Feeling tired (fatigue). ??? Pain in the belly (abdomen). ??? Chills. ??? Feeling weak. ??? Feeling sick to your stomach (nauseous). ??? Muscle aches. ??? Not feeling hungry. How is this treated? This condition typically goes away on its own. ??? The focus of treatment is to replace the fluids that you lose. This condition may be treated with: ??? An ORS (oral rehydration solution). This is a drink that is sold at pharmacies and stores. ??? Medicines to help with your symptoms. ??? Probiotic supplements to reduce symptoms of diarrhea. ??? Fluids given through an IV tube, if needed. ??? Older adults and people with other diseases or a weak body defense system are at higher risk for not having enough water in the body. Follow these instructions at home: Eating and drinking ??? Take an ORS as told by your doctor. ??? Drink clear fluids in small amounts as you are able. Clear fluids include: ??? Water. ??? Ice chips. ??? Fruit juice with water added to it (diluted). ??? Low-calorie sports drinks. ??? Drink enough fluid to keep your pee (urine) pale yellow. ??? Eat small amounts of healthy foods every 3???4 hours as you are able. This may include whole grains, fruits, vegetables, lean meats, and yogurt. ??? Avoid fluids that have a lot of sugar or caffeine in them, such as energy drinks, sports drinks, and soda. ??? Avoid spicy or fatty foods. ??? Avoid alcohol. General instructions ??? Wash your hands often. This is very important after you have watery poop or you throw up. If you cannot use soap and water, use hand surgical attendant. ??? Make sure that all people in your home wash their hands well and often. ??? Take edob-vtv-lhkvknh and prescription medicines only as told by your doctor. ??? Rest at home while you get better. ??? Watch your condition for any changes. ??? Take a warm bath to help with any burning or pain from having watery poop. ??? Keep all follow-up visits as told by your doctor. This is important. Contact a doctor if: ??? You cannot keep fluids down. ??? Your symptoms get worse. ??? You have new symptoms. ??? You feel light-headed. ??? You feel dizzy. ??? You have muscle cramps. Get help right away if: ??? You have chest pain. ??? You feel very weak. ??? You pass out (faint). ??? You see blood in your throw-up. ??? Your throw-up looks like coffee grounds. ??? You have bloody or black poop (stools) or poop that looks like tar. ??? You have a very bad headache, or a stiff neck, or both. ??? You have a rash. ??? You have very bad pain, cramping, or bloating in your belly. ??? You have trouble breathing. ??? You are breathing very quickly. ??? You have a fast heartbeat. ??? Your skin feels cold and clammy. ??? You feel mixed up (confused). ??? You have pain when you pee. ??? You have signs of not having enough water in the body, such as: ??? Dark pee, hardly any pee, or no pee. ??? Cracked lips. ??? Dry mouth. ??? Sunken eyes. ??? Feeling very sleepy. ??? Feeling weak. Summary ??? Viral gastroenteritis is also known as the stomach flu. ??? This condition can cause sudden watery poop (diarrhea), fever, and throwing up (vomiting). ??? These germs can be passed from person to person very easily. ??? Take an ORS as told by your doctor. This is a drink that is sold at pharmacies and stores. ??? Drink fluids in small amounts many times each day as you are able. This information is not intended to replace advice given to you by your health care provider. Make sure you discuss any questions you have with your health care provider. Document Revised: 03/06/2019 Document Reviewed: 03/06/2019 [employer] Patient Education ?? 2020 [employer]. 02/03/2021 21:06:13 Abdominal Pain, Adult Abdominal Pain, Adult Pain [...] these instructions at home: Medicines ??? Take ktfa-mcf-zffxrjn and prescription medicines only as told by [...] your condition for any changes. ??? Take kgyg-xxx-mmebktv and prescription medicines only as told by [...] provider. Document Revised: 09/09/2019 Document Reviewed: 09/09/2019 [employer] Patient Education ?? 2020 [employer]
--- OUTSIDE RECORDS SUMMARY | 2022-11-20 17:51 | XMS_ITS | Continuity of Care Document ---
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 Role Phone RICARDO RUTH Primary Care Physician Encounter Date(s): 08/08/21 - 08/08/[address] [address] Encounter Diagnosis Acute pelvic pain(Discharge Diagnosis) - 08/08/21 Discharge Disposition: Home or Self Care Attending Physician: MARGY HENDRICKS MD Admitting Physician: MARGY HNEDRICKS MD Allergies, Adverse Reactions, Alerts Substance Reaction Severity Status penicillin Active Latex Active Haldol Active Compazine Muscle cramps Active Toradol Hives Active Medications Bentyl 20 mg oral tablet 20 mg = 1 tab(s), Oral, QID, # 28 tab(s), 0 Refill(s), Pharmacy: [id number], 165.1, cm, 03/30/21 18:41:00 EST, Height/Length Dosing, 90.7, kg, 03/30/21 18:41:00 EST, Weight Dosing Start Date: 03/30/21 Stop Date: 04/06/21 Status: Ordered Bentyl 20 mg oral tablet 20 mg = 1 tab(s), Oral, QID, # 28 tab(s), 0 Refill(s), Pharmacy: [id number], 163, cm, 02/03/21 15:44:00 EDT, [...] intramuscular injection, extended release 3.75 mg, IM, d2ritqd, # 1 ea, 0 Refill(s) Start Date: [...] Homepack given to Patient (Rx) Start Date: 08/08/21 Stop Date: 08/09/21 Status: Ordered ondansetron 4 mg oral tablet, disintegrating 4 mg = 1 tab(s), Oral, q6hr, # 10 tab(s), 0 Refill(s), Pharmacy: [facility] #[id number], 162, cm, 09/01/19 10:41:00 EDT, Height/Length Dosing, 73, kg, 09/01/19 10:41:00 EDT, Weight Dosing Start Date: 09/01/19 Stop Date: 09/04/19 Status: Ordered oxyCODONE 5 mg oral tablet 5 mg = 1 tab(s), Oral, q6hr, PRN PRN: pain, Dispensed to you by ED nurse for home use, # 3 tab(s), 0 Refill(s), Homepack given to Patient (Rx) Start Date: 08/08/21 Stop Date: 08/09/21 Status: Ordered Phenergan 25 mg rectal suppository = 1 suppository(ies), ND, q4hr, PRN PRN: as needed for nausea/vomiting, # 12 suppository(ies), 0 Refill(s), Pharmacy: [facility] #[id number], 162, cm, 05/18/19 18:42:47 EST, Height/Length Dosing, [...] nausea/vomiting, # 30 tab(s), 0 Refill(s), Pharmacy: [facility] #[id number], 163, cm, 07/29/19 11:21:00 EDT, Height/Length Dosing, 68.1, kg, 07/29/19 11:21:00 EDT, Weight Dosing Start Date: 07/29/19 Status: Ordered Mental Status 08/08/21 Orientation Assessment Oriented x 4 Problem List [...] Name Date .Estimated Glomerular Filtration Rate CBC 08/08/21 Comprehensive Metabolic Panel (CMP) 08/08 HCG Quantitative (HCG Qt) 08/08/21 Most recent to oldest [Reference Range]: 1 AGAP 7 *NA* (08/08/21 4:15 PM) A/G Ratio 1.1 *NA* (08/08/21 4:15 PM) BUN/Creat Ratio 9 *NA* (08/08/21 4:15 PM) RBC [4.00-5.20 x10(6)/mcL] 4.27 x10(6)/m cL (08/08/21 4:15 PM) RDW [11.5-14.5 %] 14.4 % (08/08/21 4:15 PM) Sodium Level [136-145 mmol/L] 137 mmol/L (08/08/21 4:15 PM) Total Protein [6.4-8.2 gm/dL] 7.9 gm/dL (08/08/21 4:15 PM) AST [15-37 IU/L] 26 IU/L (08/08/21 4:15 PM) Bili Total [0.20-1.00 mg/dL] 0.45 mg/dL (08/08/21 4:15 PM) CO2 [21-32 mmol/L] 27 mmol/L (08/08/21 4:15 PM) Albumin Level [3.4-5.0 gm/dL] 4.2 gm/dL (08/08/21 4:15 PM) Alk Phos [48-129 unit/L] 62 unit/L (08/08/21 4:15 PM) ALT [13-61 IU/L] 37 IU/L (08/08/21 4:15 PM) Hct [36.0-46.0 %] 35.3 % *LOW* (08/08/21 4:15 PM) Hgb [12.0-15.0 gm/dL] 11.0 gm/dL *LOW* (08/08/21 4:15 PM) MCH [26.0-34.0 pg] 25.8 pg *LOW* (08/08/21 4:15 PM) MCHC [31.0-37.0 gm/dL] 31.2 gm/dL (08/08/21 4:15 PM) MCV [80-100 fL] 83 fL (08/08/21 4:15 PM) MPV [9.2-12.7 fL] 10.7 fL (08/08/21 4:15 PM) Glucose Level [74-106 mg/dL] 139 mg/dL *HI* (08/08/21 4:15 PM) Platelet [150-350 x10(3)/mcL] 191 x10(3) /mcL (08/08/21 4:15 PM) Potassium Level [3.5-5.1 mmol/L] 3.3 mmo l/L *LOW* (08/08/21 4:15 PM) WBC [4.5-11.0 x10(3)/mcL] 3.9 x10(3)/mcL *LOW* (08/08/21 4:15 PM) BUN [7-18 mg/dL] 7 mg/dL (08/08/21 4:15 PM) Calcium Level [8.5-10.1 mg/dL] 9.0 mg/dL (08/08/21 4:15 PM) Chloride [98-107 mmol/L] 106 mmol/L (08/08/21 4:15 PM) hCG Qnt [1-3 mIU/mL] <1 mIU/mL (08/08/21 4:15 PM) eGFR AA >60 mL/min/1.73 m2 *NA* (08/08/21 4:15 PM) eGFR BRUNO >60 mL/min/1.73 m2 *NA* (08/08/21 4:15 PM) NRBC % [0.0-0.2 %] 0.0 % (08/08/21 4:15 PM) Osmol Calculated 274 mOsm/kg *NA* (08/08/21 4:15 PM) Creatinine [0.6-1.3 mg/dL] 0.8 mg/dL (08/08/21 4:15 PM) Leukocytes Urine Dipstick Small (08/08/21 5:34 PM) Nitrite Urine Dipstick Negative (08/08/21 5:34 PM) Urobilinogen Urine Dipstick 0.2 mg/dl (08/08/21 5:34 PM) Protein Urine Dipstick Trace (08/08/21 5:34 PM) pH Urine Dipstick 5.5 (08/08/21 5:34 PM) Blood Urine Dipstick Large (08/08/21 5:34 PM) Specific [place] Urine Dipstick 1.015 (08/08/21 5:34 PM) Ketones Urine Dipstick Negative (08/08/21 5:34 PM) Bilirubin Urine Dipstick Negative (08/08/21 5:34 PM) Glucose Urine Dipstick Negative (08/08/21 5:34 PM) Urine Color Urine Dipstick Arp (08/08/21 5:34 PM) Urine Appearance Urine Dipstick Clear (08/08/21 5:34 PM) Vital Signs Most recent to oldest [Reference Range]: 1 2 3 Temperature Oral [35.8-37.3 DegC] 37 DegC (08/08/21 3:52 PM) Peripheral Pulse Rate [60-100 bpm] 89 bpm (08/08/21 8:30 PM) 83 bpm (08/08/21 7:24 PM) 110 bpm *HI* (08/08/21 3:52 PM) Respiratory Rate [14-20 br/min] 18 br/min (08/08/21 8:30 PM) 18 br/min (08/08/21 3:52 PM) Blood Pressure [90-140/60-90 mmHg] 105/62mmHg (08/08/21 8:30 PM) 109/56mmHg (08/08/21 7:24 PM) Mean Arterial Pressure, Cuff 74 mmHg (08/08/21 7:24 PM) Blood Pressure 123/81mmHg (08/08/21 3:52 PM) Social History Social History Type Response Sex Female Hospital Discharge Instructions Patient Education 08/08/2021 20:17:16 Abdominal Pain, Adult Abdominal Pain, Adult Pain [...] these instructions at home: Medicines ??? Take fvtr-tsl-ocjgkmi and prescription medicines only as told by [...] your condition for any changes. ??? Take wnyn-beo-yerdzha and prescription medicines only as told by [...] provider. Document Revised: 09/09/2019 Document Reviewed: 09/09/2019 [employer] Patient Education ?? 2020 [employer] 08/08/2021 20:17:16 Pelvic Pain, Female Pelvic Pain, Female Pelvic [...] Follow these instructions at home: ??? Take orqd-dak-fuyrzel and prescription medicines only as told by [...] provider. Document Revised: 10/17/2018 Document Reviewed: 10/17/2018 [employer] Patient Education ?? 2020 [employer]. Care Team Personnel Name: RICARDO RUTH, Address: [address] [place] [phone]
--- OUTSIDE RECORDS SUMMARY | 2022-11-20 17:52 | XMS_ITS | Continuity of Care Document ---
Author Name Unknown Organization [facility] Address [address] [place] [id number] Care Team Providers Care Senior Clinical Sas Programmer Name Role Phone Adeel Busby Primary Care Physician Daksha navailable Encounter BVT Date(s): 02/18/20 - 02/18/[address] [id number]- Encounter Diagnosis Abnormal vaginal bleeding(Discharge Diagnosis) - 02/18/20 Acute pelvic pain(Discharge Diagnosis) - 02/18/20 Hx of endometriosis(Discharge Diagnosis) - 02/18/20 Discharge Disposition: Home or Self Care Attending Physician: FARHAD CHAN Admitting Physician: FARHAD CHAN Allergies, Adverse Reactions, Alerts Substance Reaction Severity Status Latex Itching Active penicillins Edema Hives Active Compazine Edema Active Assessment and Plan Extracted from: Title:General Medical Problem *ED Author:FARHAD CHAN Date:02/18/20 Patient: EDUARDO PAYAN Age: 20 years Sex: Female : 2000 Associated Diagnoses: Hx of endometriosis; Acute pelvic pain; Abnormal vaginal bleeding Author: FARHAD CHAN Basic Information Additional information: Chief Complaint from Nursing Triage Note : Chief Complaint 02/18/2020 14:20 EDT Chief Complaint Woke up with vaginal bleeding (4 pads/hr), Pt has hx of endometrriosis, vomit x 2 today. Has [employer] appt tomorrow with Richard. Pelvic pain getting worse. Difficulty starting urinary stream. (Modified) . History of Present Illness Additional history: A 20-year-old female with a history of endometriosis, pelvic pain and vaginal bleeding, presents to the emergency care center with a chief complaint of endometrial flare, that began this morning at 0800. The patient woke with some abdominal/pelvic discomfort which was consistent with previous endometriosis flare. The patient has an appointment tomorrow to follow-up with [facility] and hopefully get back on Lupron as this has been very helpful for her in the past. 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 The patient has experienced increased bleeding, at one point going through approximately 4 pads in 1 hour. She has experienced pelvic pain as well as hesitancy starting a stream. The patient states that these symptoms are identical to previous endometriosis flare symptoms. She denies new or different symptoms. Because of these symptoms, the patient has been extremely uncomfortable, unable to perform her activities of daily living. She describes suprapubic discomfort that is moderate to severe. It does not radiate and nothing helps to improve. Pelvic ultrasound worsens the pain. The patient has not experienced any fever, chills, dizziness, syncope, chest pain, shortness of breath, cough, sore throat, runny nose. She endorses nausea and vomiting secondary to pain. She denies diarrhea. She denies COVID-19 symptoms.. Review of Systems Constitutional symptoms: Negative except as documented in HPI. Skin symptoms: Negative except as documented in HPI. Eye symptoms: Negative except as documented in HPI. ENMT symptoms: Negative except as documented in HPI. Respiratory symptoms: Negative except as documented in HPI. Cardiovascular symptoms: Negative except as documented in HPI. Gastrointestinal symptoms: Negative except as documented in HPI. Genitourinary symptoms: Negative except as documented in HPI. Musculoskeletal symptoms: Negative except as documented in HPI. Neurologic symptoms: Negative except as documented in HPI. Psychiatric symptoms: Negative except as documented in HPI. Endocrine symptoms: Negative except as documented in HPI. Hematologic/Lymphatic symptoms: Negative except as documented in HPI. Allergy/immunologic symptoms: Negative except as documented in HPI. Additional review of systems information: All other systems reviewed and otherwise negative. Health Status Allergies: Allergic Reactions (Selected) Severity Not Documented Compazine- Edema. Latex- Itching. Penicillins- Hives and edema.. Past Medical/ Family/ Social History Medical history: No active or resolved past medical history items have been selected or recorded.. Surgical history: No active procedure history items have been selected or recorded.. Family history: No family history items have been selected or recorded.. Social history: Social & Psychosocial History Social History Alcohol Current, 1-2 times per week Tobacco Never (less than 100 in lifetime) Tobacco Use:. Electronic Cigarette/Vaping Electronic Cigarette Use: Use, within last 90 days. Type: Nicotine infused. Use per Day: 1-25 Inhales/day. Psychosocial History No active psychosocial history has been recorded. Problem list: Active Problems (2) Asthma Endometriosis . Physical Examination Vital Signs Vital Signs 02/18/2020 16:58 EDT Peripheral Pulse Rate 62 bpm Systolic Blood Pressure 125 mmHg Diastolic Blood Pressure 77 mmHg SpO2 97 % 02/18/2020 14:20 EDT Temperature Temporal 36.7 DegC Peripheral Pulse Rate 80 bpm Respiratory Rate 16 br/min Systolic Blood Pressure 117 mmHg Diastolic Blood Pressure 77 mmHg SpO2 100 % . Measurements 02/18/2020 14:29 EDT Weight Dosing 72.570 kg 02/18/2020 14:29 EDT Height/Length Dosing 162.560 cm 02/18/2020 14:20 EDT Height/Length Estimated 162.560 cm Weight Estimated 72.570 kg . Basic Oxygen Information 02/18/2020 16:58 EDT Oxygen Therapy Room air 02/18/2020 14:20 EDT Oxygen Therapy Room air . General: Alert, no acute distress. Skin: Warm, dry, pink, intact. Head: Normocephalic, atraumatic. Neck: Supple, trachea midline, no tenderness. Eye: Pupils are equal, round and reactive to light, extraocular movements are intact, normal conjunctiva, vision unchanged. Ears, nose, mouth and throat: Oral mucosa moist. Cardiovascular: Regular rate and rhythm, No murmur, Normal peripheral perfusion, No edema. Respiratory: Lungs are clear to auscultation, respirations are non-labored, breath sounds are equal, Symmetrical chest wall expansion. Musculoskeletal: Normal ROM, normal strength, no tenderness, no swelling, no deformity. Chest wall Gastrointestinal: Soft abdomen with periumbilical pain that is sharp and stabbing. Patient has pelvic pain in the suprapubic, left lower quadrant and right lower quadrant areas. Patient has right-sided mid abdominal tenderness and pain that radiates to her back. Patient has a history of appendectomy. She has normal bowel sounds, no masses.. Genitourinary Neurological: Alert and oriented to person, place, time, and situation, No focal neurological deficit observed, normal sensory observed, normal motor observed, normal speech observed, normal coordination observed. Lymphatics: No lymphadenopathy. Psychiatric: Cooperative, appropriate mood & affect, normal judgment, non- suicidal. Medical Decision Making Rationale: Uncomfortable 20-year-old female here with moderate to severe pelvic pain and vaginal bleeding which is consistent with previous endometriosis. The patient has a follow-up appointment with Dr. Ramos tomorrow to hopefully start Lupron. She did go through 4 pads in 1 hour earlier today, however the bleeding is not nearly as severe as it has been in the past. Plan for medications prior to abdominal exam.. Results review: Lab results : Lab View 02/18/2020 15:48 EDT WBC 6.4 x10(3)/uL RBC 4.54 x10(6)/uL Hgb 11.7 gm/dL Hct 35.7 % MCV 78.6 fL LOW MCH 25.8 pg MCHC 32.8 gm/dL RDW-CV 13.2 % Platelet 228 x10(3)/uL MPV 10.9 fL Neutro Auto 62.6 % Lymph Auto 29.1 % Pratt Auto 5.1 % Eos Auto 2.2 % Basophil Auto 0.8 % Immature Gran % 0.20 % NRBC Auto Pct 0.00 % Neutro Absolute 4.03 x10(3)/uL Lymph Absolute 1.87 x10(3)/uL Pratt Absolute 0.33 x10(3)/uL Eos Absolute 0.14 x10(3)/uL Basophil Absolute 0.05 x10(3)/uL Immature Gran Absolute 0.01 x10(3)/uL NA NRBC Absolute 0.00 x10(3)/uL PT 13.7 second(s) INR 1.07 NA Sodium Lvl 139 mmol/L Potassium Lvl 3.8 mmol/L Chloride 105 mmol/L CO2 23 mmol/L AGAP 14.8 mmol/L BUN 8 mg/dL Creatinine 0.54 mg/dL GFR >60 mL/min/1.73 m2 NA GFR NonAfrican Belgian >60 mL/min/1.73 m2 NA Glucose Lvl 96 mg/dL Calcium Lvl 9.6 mg/dL Osmolality 275.7 mOsm/kg TSH 1.180 uIU/mL ABO/Rh. Interp A POS ABSC Tube 2 Interp Negative . Radiology results: US (ST) Ultrasound: ?? US Pelvis and Transvaginal ?? 02/18/20 16:47:53 EXAMINATION: US Pelvis and Transvaginal CLINICAL HISTORY: Vaginal bleeding and pelvic pain TECHNIQUE: Transabdominal and transvaginal pelvic sonogram COMPARISON: 30 January 2020 and 21 January 2020 FINDINGS: The uterus is 7 x 4.3 x 3 cm with 4 mm endometrium. The right ovary is 2.2 x 2.2 x 1.3 cm and the left ovary is 5.2 x 2.9 x 3.4 cm. Normal color flow demonstrated in the right ovary. Flow is demonstrated in the periphery of the left ovary. No pathological fluid collection is identified. No mass is seen. IMPRESSION: Mildly enlarged left ovary with diminished flow centrally in the ovary. Otherwise negative exam. Thank you for letting us participate in the care of this patient. For questions regarding this report, please contact the number below. Electronically signed by: Timmy Cano MD, [facility] ([phone]), at 02/18/2020 4:47 PM ?? Signed By: Timmy Cano . Notes: The pelvic exam was considered for this patient who is moderately uncomfortable., However after pelvic ultrasound, the patient is more comfortable and would not be likely to tolerate this at this time. The patient has not changed her tampon since she has been here. She is feeling a bit better. She has follow-up available tomorrow with [facility] where she would likely receive another pelvic exam. Will work to control patient's pain today. No indication for admission or transfer via [facility]. BUCKET P[facility]HER does not believe the patient has evidence for torsion on ultrasound believing it more likely to be endometrioma or other abnormality. The patient has no history of ovarian torsion or PCOS. She does have a history of endometriosis and feels that this pain is identical to previous endometriosis pain.. Reexamination/ Reevaluation Time: 02/18/2020 17:20:00 . Vital signs Basic Oxygen Information 02/18/2020 16:58 EDT Oxygen Therapy Room air 02/18/2020 14:20 EDT Oxygen Therapy Room air Notes: The patient is doing much better at this time. She is eating crackers and stormy robbi. She is unable to discharge. She states that she does feel like this is identical to previous endometriosis pain. Patient has follow-up available tomorrow. Return precautions given. Additional verbal discharge instructions given. She has norethindrone and will take 4 tablets tomorrow in the morning., The patient is unable to provide a urine for us.. Impression and Plan Diagnosis Hx of endometriosis ([id number] Z87.42, Discharge, Medical) Acute pelvic pain (RYM55-CO R10.2, Discharge, Medical) Abnormal vaginal bleeding (PTV06-SU N93.9, Discharge, Medical) Calls-Consults - 02/18/2020 17:09:00 , MANDO NGUYEN MD, recommends Does not feel that this is ovarian torsion, does not recommend intervention at this time, it could be an endometrioma. She should follow up tomorrow with OB as planned. 4 norethindrone total today, 4 tomorrow then likely taper per OBGYN. . Plan Condition: Improved. Disposition: Medically cleared. Prescriptions: Launch prescriptions Pharmacy: Percocet 5/325 oral tablet (Prescribe): 1 tab(s), Oral, q6hr, for 2 day(s), PRN: for pain, 10 tab(s), 0 Refill(s), Launch prescriptions Pharmacy: Zofran ODT 4 mg oral tablet, disintegrating (Prescribe): 4 mg = 1 tab(s), Oral, TID, for 3 day(s), 9 tab(s), 0 Refill(s). Patient was given the following educational materials: Pelvic Pain, Female, [id number]. Limitations: Limited activity. Follow up with: ERIN RAMOS Within 1 to 2 days Follow-up with Dr. Ramos tomorrow as scheduled., ERIN RAMOS Within 1 to 2 days Follow-up with Dr. Ramos tomorrow as scheduled.. Counseled: Patient, Regarding diagnosis, Regarding diagnostic results, Regarding treatment plan, Regarding prescription, Patient indicated understanding of instructions. Addendum by FARHAD CHAN on February 18, 2020 17:[address] Nguyen looked at the films and belie ves that the patient has evidence for a hemorrhagic corpus luteum and not a endometrioma. Future Appointments Functional Status 02/18/20 Recent Travel History No recent travel COVID-19 Screening None Medications norethindrone 5 mg oral tablet 10 mg = 2 tab(s), Oral, Daily, # 180 tab(s), 0 Refill(s) Start Date: 02/18/20 Status: Ordered Percocet 5/325 oral tablet 1 tab(s), Oral, q6hr, PRN PRN for pain, X 2 day(s), # 10 tab(s), 0 Refill(s), 02/20/20 Start Date: 02/18/20 Stop Date: 02/20/20 Status: Ordered sertraline Oral, Daily, 0 Refill(s) Start Date: 02/18/20 Status: Ordered Zofran 4 mg oral tablet mg tab(s), Oral, q8hr, 0 Refill(s) Start Date: 02/18/20 Status: Ordered Zofran ODT 4 mg oral tablet, disintegrating 4 mg = 1 tab(s), Oral, TID, # 9 tab(s), 0 Refill(s) Start Date: 02/18/20 Stop Date: 02/21/20 Status: Ordered Mental Status 02/18/20 Level of Consciousness Alert Problem List Condition Effective Dates Status Health Status Inform ant Asthma(Confirmed) Active Endometriosis(Confirmed) Active Results Laboratory List Name Date ABO/Rh. 02/18/20 Antibody Screen Tube 2 02/18/20 Automated Differential Standard 02/18/20 Basic Metabolic Panel Standard (BMP Thad dard) 02/18/20 CBC w/Diff Standard 02/18/20 PT (PT/INR) 02/18/20 TSH [place] 02/18/20 Most recent to oldest [Reference Range]: 1 ABO/Rh. Interp A POS *Unknown* (02/18/20 3:48 PM) NRBC Auto Pct [0.00-0.20 %] 0.00 % (02/18/20 3:48 PM) ABSC Tube 2 Interp Negative (02/18/20 3:48 PM) Creatinine [0.50-0.90 mg/dL] 0.54 mg/dL (02/18/20 3:48 PM) INR 1.07 *NA* (02/18/20 3:48 PM) AGAP [10.0-18.0 mmol/L] 14.8 mmol/L (02/18/20 3:48 PM) Glucose Lvl [70-100 mg/dL] 96 mg/dL (02/18/20 3:48 PM) Hct [34.1-44.9 %] 35.7 % (02/18/20 3:48 PM) Hgb [11.5-15.7 gm/dL] 11.7 gm/dL (02/18/20 3:48 PM) Lymph Auto [15.0-45.0 %] 29.1 % (02/18/20 3:48 PM) MCH [25.6-32.2 pg] 25.8 pg (02/18/20 3:48 PM) MCHC [32.3-36.5 gm/dL] 32.8 gm/dL (02/18/20 3:48 PM) MCV [79.4-94.8 fL] 78.6 fL *LOW* (02/18/20 3:48 PM) Pratt Auto [4.0-14.0 %] 5.1 % (02/18/20 3:48 PM) MPV [9.4-12.4 fL] 10.9 fL (02/18/20 3:48 PM) Neutro Auto [50.0-75.0 %] 62.6 % (02/18/20 3:48 PM) Osmolality [268.0-291.0 mOsm/kg] 275.7 m Osm/kg (02/18/20 3:48 PM) Platelet [150-400 x10(3)/uL] 228 x10(3)/ uL (02/18/20 3:48 PM) PT [11.0-14.5 second(s)] 13.7 second(s) (02/18/20 3:48 PM) RBC [3.93-5.22 x10(6)/uL] 4.54 x10(6)/uL (02/18/20 3:48 PM) Sodium Lvl [136-145 mmol/L] 139 mmol/L (02/18/20 3:48 PM) TSH [0.270-4.200 uIU/mL] 1.180 uIU/mL (02/18/20 3:48 PM) Basophil Auto [0.0-2.0 %] 0.8 % (02/18/20 3:48 PM) CO2 [22-29 mmol/L] 23 mmol/L (02/18/20 3:48 PM) Eos Auto [0.0-8.0 %] 2.2 % (02/18/20 3:48 PM) WBC [4.0-10.0 x10(3)/uL] 6.4 x10(3)/uL (02/18/20 3:48 PM) BUN [6-23 mg/dL] 8 mg/dL (02/18/20 3:48 PM) Calcium Lvl [8.6-10.2 mg/dL] 9.6 mg/dL (02/18/20 3:48 PM) Chloride [98-107 mmol/L] 105 mmol/L (02/18/20 3:48 PM) Potassium Lvl [3.5-5.1 mmol/L] 3.8 mmol/ L (02/18/20 3:48 PM) Lymph Absolute [1.20-3.70 x10(3)/uL] 1.8 7 x10(3)/uL (02/18/20 3:48 PM) Pratt Absolute [0.20-0.40 x10(3)/uL] 0.33 x10(3)/uL (02/18/20 3:48 PM) Eos Absolute [0.04-0.54 x10(3)/uL] 0.14 x10(3)/uL (02/18/20 3:48 PM) NRBC Absolute [0.00-0.01 x10(3)/uL] 0.00 x10(3)/uL (02/18/20 3:48 PM) Neutro Absolute [1.56-6.13 x10(3)/uL] 4. 03 x10(3)/uL (02/18/20 3:48 PM) RDW-CV [11.7-14.4 %] 13.2 % (02/18/20 3:48 PM) GFR >60 mL/min/1.73 m2 *NA* (02/18/20 3:48 PM) GFR NonAfrican Belgian >60 mL/min/1.73 m2 *NA* (02/18/20 3:48 PM) Immature Gran % [0.00-2.30 %] 0.20 % (02/18/20 3:48 PM) Immature Gran Absolute 0.01 x10(3)/uL *NA* (02/18/20 3:48 PM) Basophil Absolute [0.00-0.10 x10(3)/uL] 0.05 x10(3)/uL (02/18/20 3:48 PM) Radiology Reports * Exam Date Time Procedure Performing Provider Status 02/18/20 3:24 PM US Pelvis and Transvaginal Aline Gordon; Auth (Verified) Notes: (US Pelvis and Transvaginal) Reason For Exam: Vaginal bleeding and pelvic pain US Pelvis and Transvaginal EXAMINATION: US Pelvis and Transvaginal CLINICAL HISTORY: Vaginal bleeding and pelvic pain TECHNIQUE: Transabdominal and transvaginal pelvic sonogram COMPARISON: 30 January 2020 and 21 January 2020 FINDINGS: The uterus is 7 x 4.3 x 3 cm with 4 mm endometrium. The right ovary is 2.2 x 2.2 x 1.3 cm and the left ovary is 5.2 x 2.9 x 3.4 cm. Normal color flow demonstrated in the right ovary. Flow is demonstrated in the periphery of the left ovary. No pathological fluid collection is identified. No mass is seen. IMPRESSION: Mildly enlarged left ovary with diminished flow centrally in the ovary. Otherwise negative exam. Thank you for letting us participate in the care of this patient. For questions regarding this report, please contact the number below. Electronically signed by: Timmy Cano MD, [facility] ([phone]), at 02/18/2020 4:47 PM Final Dictated: 02/18/2020 4:47 pm Timmy Cano Signed (Electronic Signature): 02/18/2020 4:47 pm Signed by: Timmy Cano Technologist: Noreen Gordon Vital Signs Most recent to oldest [Reference Range]: 1 2 Temperature Temporal [36.3-37.8 DegC] 36 .7 DegC (02/18/20 2:20 PM) Peripheral Pulse Rate [60-100 bpm] 62 bp m (02/18/20 4:58 PM) 80 bpm (02/18/20 2:20 PM) Respiratory Rate [14-20 br/min] 16 br/mi n (02/18/20 2:20 PM) Blood Pressure [90-140/60-90 mmHg] 125/7 7mmHg (02/18/20 4:58 PM) 117/77mmHg (02/18/20 2:20 PM) SpO2 [92-100 %] 97 % (02/18/20 4:58 PM) 100 % (02/18/20 2:20 PM) Height/Length Estimated 162.560 cm (02/18/20 2:20 PM) Height/Length Dosing 162.560 cm (02/18/20 2:29 PM) Weight Estimated 72.570 kg (02/18/20 2:20 PM) Weight Dosing 72.570 kg (02/18/20 2:29 PM) Social History Social History Type Response Smoking Status Never (less than 100 in lifetime) entered on: 02/18/20 Sex Hospital Discharge Instructions Patient Education 02/18/2020 17:13:48 Pelvic Pain, Female, [id number] 1. Please follow-up with [facility] tomorrow as scheduled. 2. Take Percocet 5/325 1 to 2 tablets every 4-6 hours for pain. 3. Continue norethindrone. You can take up to 4 pills today. Please take 4 pills tomorrow before your appointment. 4. Return if new or worsening symptoms occur. Pelvic Pain, Female Pelvic pain is pain in your lower belly (abdomen), below your belly button and between your hips. The pain may start suddenly (be acute), keep coming back (be recurring), or last a long time (become chronic). Pelvic pain that lasts longer than 6 months is called chronic pelvic pain. There are many causes of pelvic pain. Sometimes the cause of pelvic pain is not known. Follow these instructions at home: ??? Take [id number] and prescription medicines only as told by your doctor. ??? Rest as told by your doctor. ??? Do not have sex if it [...] is important. Contact a doctor if: ??? Medicine does not help your pain. ??? Your pain comes back. ??? You have new symptoms. ??? You have unusual discharge or bleeding from your vagina. ??? You have a fever or chills. ??? You are having trouble pooping (constipation). ??? You have blood in your pee (urine) or poop (stool). ??? Your pee smells bad. ??? You feel weak or light-headed. Get help right away if: ??? You have sudden pain that is very bad. ??? Your pain keeps getting worse. ??? You have very bad pain and also have any of these symptoms: ??? A fever. ??? Feeling sick to your stomach (nausea). ??? Throwing up (vomiting). ??? Being very sweaty. ??? You pass out (lose consciousness). Summary ??? Pelvic pain is pain in your lower belly (abdomen), below your belly button and between your hips. ??? There are many possible causes of pelvic pain. ??? Keep a journal of your pelvic pain. This information is not intended to replace advice given to you by your health care provider. Make sure you discuss any questions you have with your health care provider. Document Released: 10/17/2008 Document Revised: 10/17/2018 Document Reviewed: 10/17/2018 [employer] Patient Education ?? 2020 [employer] Follow Up Care 02/18/2020 14:18:06 With:ERIN RAMOS Address:Unknown When:1 to 2 days Comments:Follow-up with Dr. Ramos tomorrow as scheduled.
--- OUTSIDE RECORDS SUMMARY | 2022-11-20 17:52 | XMS_ITS | Continuity of Care Document ---
Author Name Unknown Organization [facility] Address [address] [place] [address]- Care Team Providers Care Manager Testing Name Role Phone Adeel Busby Primary Care Physician U navailable Encounter BVT Date(s): 07/09/22 - 07/09/[address] [address]- [phone] Discharge Disposition: Home or Self Care Attending Physician: MONSE PURI Admitting Physician: MONSE PURI Allergies, Adverse Reactions, Alerts Substance Reaction Severity Status droperidol Anaphylactic reaction Severe Active Latex Itching Active penicillins Edema Hives Active Haldol Tremor Moderate Active Compazine Edema Active Toradol Nausea Active Reglan Anaphylactic reaction Severe Active Phenergan Anaphylactic reaction Severe Active Assessment and Plan Extracted from: Title:Abdominal Pain *ED Author:MONSE PURI Date:07/09/22 History of Present Illness Patient presents the emergency department complaining of passing a hard object through her rectovaginal fistula. Was concerned about what the object was because she did not believe it was stool so she came to the emergency department. Patient was seen the previous evening by myself for abdominal pain nausea vomiting abdominal distention, states that since last night she feels significantly improved, has been tolerating p.o. all day today passing softer stool through her stoma and feels like her abdominal distention is improved compared to yesterday. No bleeding vaginally rectally or through stoma no fevers or chills no other symptoms. She brought the object and that she passed vaginally. Review of Systems Additional review of systems information: All systems reviewed as documented in chart. Health Status Allergies: Allergic Reactions (Selected) Severe Droperidol- Anaphylactic reaction. Phenergan- Anaphylactic reaction. Reglan- Anaphylactic reaction. Moderate Haldol- Tremor. Severity Not Documented Compazine- Edema. Latex- Itching. Penicillins- Hives and edema. Toradol- Nausea.. Medications: (Selected) Prescriptions Prescribed !-Zofran ODT 4 mg oral tablet, disintegratin mg = 1 tab(s), Oral, q8hr, PRN: Nausea/Vomiting, 30 tab(s), 0 Refill(s) norethindrone 5 mg oral tablet: 10 mg = 2 tab(s), Oral, Daily, for 30 day(s), 60 tab(s), 3 Refill(s) tranexamic acid 650 mg oral tablet: 1,300 mg = 2 tab(s), Oral, TID, for 5 day(s), start with onset of bleeding. Take as directed until the bleeding stops for a maximum of 5 days during monthly menstruation, 30 tab(s), 2 Refill(s) Documented Medications Documented Benadryl 25 mg oral capsule: 25 mg = 1 cap(s), Oral, Daily, 0 Refill(s) Colace: Oral, BID, 0 Refill(s) DULoxetine 20 mg oral delayed release capsule: 0 Refill(s) MiraLax: 17 gm = 1 packet(s), Oral, Daily, 0 Refill(s) ProAir HFA: INH, q6hr, 0 Refill(s) acetaminophen: 0 Refill(s) gabapentin 300 mg oral capsule: 300 mg = 1 cap(s), Oral, Once a day (at bedtime), 30 cap(s), 0 Refill(s) hydrOXYzine hydrochloride 25 mg oral tablet: 0 Refill(s) montelukast 4 mg oral granule: mg = EA, Oral, Daily, 0 Refill(s) morphine 15 mg oral tablet: 15 mg = 1 tab(s), 0 Refill(s) omeprazole: Oral, Daily, 0 Refill(s) sertraline 100 mg oral tablet: mg = tab(s), Oral, Daily, 0 Refill(s) tiZANidine 4 mg oral tablet: See Instructions, 1 tab(s) Oral q8hr, 0 Refill(s) traZODone 100 mg oral tablet: 100 mg = 1 tab(s), Oral, Daily, 0 Refill(s). Past Medical/ Family/ Social History Medical history: Resolved Ovarian torsion ([id number]): Resolved.. Surgical history: Repair of vaginal vault tear ([id number]) on 11/01/2021 at 21 Years. Comments: 02/11/2022 9:09 ERIN XIONG MD recurrent bleeding- excision of posterior vagianl tissue and repair- 4 cm area- bipsy sent to rule out vaginal endometriosis- not report avaialble Transfusion x 1 u PRBC Repair of vaginal vault tear ([id number]) on 10/25/2021 at 21 Years. Comments: 02/11/2022 9:07 ERIN XIONG MD vaginal vault tear with heavy bleeding following vaginal u/s. OR x 2 Hysteroscopy to evaluate uterine cavity- normal Transfusion x 2 u PRBC Laparoscopic ablation of pelvic endometriosis ([id number]) in the month of 03/2021 at 21 Years. Comments: 02/11/2022 8:54 ERIN XIONG MD recurrent pain, Laparoscopic excision of pelvic endometriosis ([id number]) on 03/05/2021 at 21 Years. Comments: 02/21/2022 11:12 Dick Forte Pathology Pelvic side wall biopsy LEFT: Mesothelial-lined fibrous tissue with focal calcification and foreign body giant cell reaction to polarizable material. No endomestrisosis identified. Laparoscopic ablation of pelvic endometriosis ([id number]) in the month of 08/2020 at 20 Years. Comments: 02/11/2022 8:53 ERIN XIONG MD Excision of endometriosis Cystoscopy ([id number]) on 08/26/2020 at 20 Years. Laparoscopic excision of pelvic endometriosis ([id number]) on 03/17/2020 at 20 Years. Comments: 04/16/2020 13:50 ERIN VERMA MD mild endometriosis otherwise normal anatomy Laparoscopic appendectomy ([id number]) in the month of 11/2019 at 19 Years. Comments: 03/04/2020 23:03 ERIN XIONG MD noted to have endometriosis on appendix D&C - Dilatation and curettage ([id number]) in the month of 06/2018 at 18 Years. Comments: 02/20/2020 10:14 ERIN XIONG MD menorrhagia Laparoscopy with aspiration ([id number]) in the month of 01/2018 at 18 Years. Comments: 02/20/2020 10:14 ERIN XIONG MD aspiration of endometrioma Appendectomy ([id number]).. Family history: Diabetes mellitus type 2 Grandfather (Paternal) Cervical cancer Grandmother (Maternal) Cancer Mother Comments: 03/04/2020 13:15 Natalie Rodarte LPN Possibly breast ? per pt. Heart Disease Father Grandfather (Paternal) . 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 Exercise Exercise frequency: Daily. Exercise type: Walking. Home/Environment Lives with Grandfather.. Living situation Home/Independent. Nutrition/Health Regular Sexual Sexually active: Yes. Number of current partners 1. Sexual orientation: Straight or heterosexual. Uses condoms: No. Identifies as female Gender Identity:. Substance Abuse Past, Marijuana Current, Marijuana Tobacco Never tobacco user Tobacco Use:. Never (less than 100 in lifetime) Tobacco Use:. Electronic Cigarette/Vaping Electronic Cigarette Use: Former use, quit more than 90 days ago. Electronic Cigarette Use: Former use, quit more than 90 days ago. Type: Cannabinoid infused, Nicotine infused. Psychosocial History No active psychosocial history has been recorded . Problem list: Active Problems (4) Abdominal pain due to injury Adenomyosis Asthma Endometriosis . Physical Examination Vital Signs Measurements 07/09/2022 23:08 EST Weight Dosing 77.000 kg 07/09/2022 23:08 EST Height/Length Dosing 166.000 cm 07/09/2022 23:04 EST Height/Length Estimated 166.000 cm Weight Estimated 77.000 kg 07/08/2022 22:27 EST Height/Length Dosing 166.000 cm Weight Dosing 77.000 kg 07/08/2022 22:16 EST Height 166.000 cm Weight 77.000 kg . General: Alert, no acute distress. Skin: Warm, dry. Head: Atraumatic. Neck: Supple. Respiratory: Respirations are non-labored. Gastrointestinal: Soft, Nontender, Non distended, Ostomy with output of soft feces without any skin changes . Neurological: Alert and oriented to person, place, time, and situation. Psychiatric: Cooperative. Medical Decision Making Patient complaining of passing hard object through rectovaginal fistula, brought the object in with her, it is hardened feces, is brown without any signs of blood mixed in with it, roughly 2 to 3 cm in size, patient states this does happen on occasion where she passes feces through her vagina due to the rectovaginal fistula but because the object was so hard and she did not know what it was she came in tonight, her abdomen is soft nondistended and nontender in all quadrants, significantly improved compared to prior evaluation last night, her stoma output is soft with normal appearance with no signs of blood, has had increased stoma output today, this is consistent with her relative constipation that was diagnosed last night, does appear to be improving as the stoma output has softened and increased, likely her increased motility caused her to pass some constipated stool through the rectovaginal fistula, on review of her surgeons records from [facility] they do state that some output through the vagina is possible but that she should follow-up with them if it is a regular occurrence, she has follow-up appointment with her specialists for repair of the rectovaginal fistula as well as tentative ostomy reversal in a month, as patient is otherwise well-appearing tolerating p.o. with a soft nontender and benign abdomen and no other complaints will discharge home. Patient did not want to wait for her discharge paperwork and instructions and just wanted to leave after my evaluation, had discussion regarding return precautions and need to follow-up. Patient understands this plan and is agreeable to it. Impression and Plan Diagnosis Constipation Functional Status 07/09/22 History of Fall in Last 3 Months Zhou N o Recent Travel History No recent travel Family Member Travel History No recent t sania PIMENTELID-19 Screening None Medications !-Zofran ODT 4 mg oral tablet, disintegrating 4 mg = 1 tab(s), Oral, q8hr, PRN PRN Nausea/Vomiting, # 30 tab(s), 0 Refill(s), Pharmacy: [facility] #[id number], 1 tab(s) Oral q8hr,PRN:Nausea/Vomiting, 164, cm, 01/17/22 19:35:00 EDT, Height/Length Dosing, 77.11, kg, 01/17/22 19:35:00 EDT, Weight Dosing Start Date: 11/2/22 Status: Ordered acetaminophen 0 Refill(s) Start Date: 07/08/22 Status: Ordered Benadryl 25 mg oral capsule 25 mg = 1 cap(s), Oral, Daily, 0 Refill(s) Start Date: 09/27/20 Status: Ordered Colace Oral, BID, 0 Refill(s) Start Date: 09/27/20 Status: Ordered DULoxetine 20 mg oral delayed release capsule 0 Refill(s) Start Date: 07/08/22 Status: Ordered gabapentin 300 mg oral capsule 300 mg = 1 cap(s), Oral, Once a day (at bedtime), # 30 cap(s), 0 Refill(s) Start Date: 12/18/20 Status: Ordered hydrOXYzine hydrochloride 25 mg oral tablet 0 Refill(s) Start Date: 07/08/22 Status: Ordered MiraLax 17 gm 1 packet(s), Oral, Daily, 0 Refill(s) Start Date: 09/27/20 Status: Ordered montelukast 4 mg oral granule mg EA, Oral, Daily, 0 Refill(s) Start Date: 09/27/20 Status: Ordered morphine 15 mg oral tablet 15 mg = 1 tab(s), 0 Refill(s) Start Date: 07/08/22 Status: Ordered norethindrone 5 mg oral tablet 10 mg = 2 tab(s), Oral, Daily, # 60 tab(s), 3 Refill(s), [facility]acy: [id number], 2tab(s) Oral Daily,x30 day(s) Start Date: 05/20/20 Stop Date: 09/17/20 Status: Ordered omeprazole Oral, Daily, 0 Refill(s) Start Date: 09/27/20 Status: Ordered ProAir HFA INH, q6hr, 0 Refill(s) Start Date: 09/27/20 Status: Ordered sertraline 100 mg oral tablet mg tab(s), Oral, Daily, 0 Refill(s) Start Date: 09/27/20 Status: Ordered tiZANidine 4 mg oral tablet See Instructions, 1 tab(s) Oral q8hr, 0 Refill(s) Start Date: 12/18/20 Status: Ordered tranexamic acid 650 mg oral tablet 1,300 mg = 2 tab(s), Oral, TID, start with onset of bleeding. Take as directed until the bleeding stops for a maximum of 5 days during monthly menstruation, # 30 tab(s), 2 Refill(s), [facility]: [id number], 2 tab(s) Oral TID,x5 day(s),Instr:st... Start Date: 03/16/22 Stop Date: 03/31/22 Status: Ordered traZODone 100 mg oral tablet 100 mg = 1 tab(s), Oral, Daily, 0 Refill(s) Start Date: 09/27/20 Status: Ordered Mental Status 07/09/22 Level of Consciousness Alert Problem List Condition Confirmation Course Effective Dates Status H ealth Status Informant Abdominal pain due to injury Confirmed Active Asthma Confirmed Active Endometriosis Confirmed Active Adenomyosis Confirmed Active Procedures Procedure Date Related Diagnosis Body Site Status Repair of vaginal vault tear 1 11/01/21 Completed Repair of vaginal vault tear 2 10/25/21 Completed Laparoscopic ablation of pel makenzie endometriosis 3 03/2021 Completed Laparoscopic excision of pel makenzie endometriosis 4 03/05/21 Completed Cystoscopy 08/26/20 Completed Laparoscopic ablation of pel makenzie endometriosis 5 08/2020 Completed Laparoscopic excision of pel makenzie endometriosis 6 03/17/20 Completed Laparoscopic appendectomy 7 11/2019 Completed D&C - Dilatation and curettage 8 06/2018 Completed Laparoscopy with aspiration 9 01/2018 Completed Appendectomy Completed 1recurrent bleeding- excision of posterior vagianl tissue and repair- 4 cm area- bipsy sent to rule out vaginal endometriosis- not report avaialble Transfusion x 1 u PRBC 2vaginal vault tear with heavy bleeding following vaginal u/s. OR x 2 Hysteroscopy to evaluate uterine cavity- normal Transfusion x 2 u PRBC 3recurrent pain, 4Pathology Pelvic side wall biopsy LEFT: Mesothelial-lined fibrous tissue with focal calcification and foreignbody giant cell reaction to polarizable material. No endomestrisosis identified. 5Excision of endometriosis 6mild endometriosis otherwise normal anatomy 7noted to have endometriosis on appendix 8menorrhagia 9aspiration of endometrioma Vital Signs Most recent to oldest [Reference Range]: 1 Temperature Temporal Artery [36.3-37.8 D egC] 36.7 DegC (07/09/22 11:04 PM) Peripheral Pulse Rate [60-100 bpm] 88 bp m (07/09/22 11:04 PM) Respiratory Rate [14-20 br/min] 20 br/mi n (07/09/22 11:04 PM) Blood Pressure [90-140/60-90 mmHg] 119/6 5mmHg (07/09/22 11:04 PM) SpO2 [92-100 %] 100 % (07/09/22 11:04 PM) Height/Length Estimated 166.000 cm (07/09/22 11:04 PM) Height/Length Dosing 166.000 cm (07/09/22 11:08 PM) Weight Estimated 77.000 kg (07/09/22 11:04 PM) Weight Dosing 77.000 kg (07/09/22 11:08 PM) Social History Social History Type Response Tobacco Never tobacco user T obacco Use:. Sex Physician Emergency department Note * MONSE PURI: PERFORM, SIGN, VERIFY Event Display: ED Note - Physician Authored Date: Patient: EDUARDO PAYAN Age: 22 years Sex: Female : 2000 Associated Diagnoses: None Author: MONSE PURI Basic Information Additional information: Chief Complaint from Nursing Triage Note : Chief Complaint 07/09/2022 23:04 EST Chief Complaint Pt presents to ED with c/o increased abdominal distension. Pt reports a large, firm, apparent clot that came out of her vagina. Pt reports she was en route to a hospital where her specialists are, but stopped here because of the icy roads 07/08/2022 22:16 EST Chief Complaint Pt presents to ED with nausea and vomiting that started this morning. Pt also endorses lower abdominal pain. Pt has stoma that was placed in April d/t a rectal/vaginal fistula. Pt unsure of loose stools as this is new to her. . History of Present Illness Patient presents the emergency department complaining of passing a hard object through her rectovaginal fistula. Was concerned about what the object was because she did not believe it was stool so she came to the emergency department. Patient was seen the previous evening by myself for abdominal pain nausea vomiting abdominal distention, states that since last night she feels significantly improved, has been tolerating p.o. all day today passing softer stool through her stoma and feels like herabdominal distention is improved compared to yesterday. No bleeding vaginally rectally or through stoma no fevers or chills no other symptoms. She brought the object and that she passed vaginally. Review of Systems Additional review of systems information: All systems reviewed as documented in chart. Health Status Allergies: Allergic Reactions (Selected) Severe Droperidol- Anaphylactic reaction. Phenergan- Anaphylactic reaction. Reglan- Anaphylactic reaction. Moderate Haldol- Tremor. Severity Not Documented Compazine- Edema. Latex- Itching. Penicillins- Hives and edema. Toradol- Nausea.. Medications: (Selected) Prescriptions Prescribed !-Zofran ODT 4 mg oral tablet, disintegratin mg = 1 tab(s), Oral, q8hr, PRN: Nausea/Vomiting, 30 tab(s), 0 Refill(s) norethindrone 5 mg oral tablet: 10 mg = 2 tab(s), Oral, Daily, for 30 day(s), 60 tab(s), 3 Refill(s) tranexamic acid 650 mg oral tablet: 1,300 mg = 2 tab(s), Oral, TID, for 5 day(s), start with onset of bleeding. Take as directed until the bleeding stops for a maximum of 5 days during monthly menstruation, 30 tab(s), 2 Refill(s) Documented Medications Documented Benadryl 25 mg oral capsule: 25 mg = 1 cap(s), Oral, Daily, 0 Refill(s) Colace: Oral, BID, 0 Refill(s) DULoxetine 20 mg oral delayed release capsule: 0 Refill(s) MiraLax: 17 gm = 1 packet(s), Oral, Daily, 0 Refill(s) ProAir HFA: INH, q6hr, 0 Refill(s) acetaminophen: 0 Refill(s) gabapentin 300 mg oral capsule: 300 mg = 1 cap(s), Oral, Once a day (at bedtime), 30 cap(s), 0 Refill(s) hydrOXYzine hydrochloride 25 mg oral tablet: 0 Refill(s) montelukast 4 mg oral granule: mg = EA, Oral, Daily, 0 Refill(s) morphine 15 mg oral tablet: 15 mg = 1 tab(s), 0 Refill(s) omeprazole: Oral, Daily, 0 Refill(s) sertraline 100 mg oral tablet: mg = tab(s), Oral, Daily, 0 Refill(s) tiZANidine 4 mg oral tablet: See Instructions, 1 tab(s) Oral q8hr, 0 Refill(s) traZODone 100 mg oral tablet: 100 mg = 1 tab(s), Oral, Daily, 0 Refill(s). Past Medical/ Family/ Social History Medical history: Resolved Ovarian torsion ([id number]): Resolved.. Surgical history: Repair of vaginal vault tear ([id number]) on 11/01/2021 at 21 Years. Comments: 02/11/2022 9:09 ERIN XIONG MD recurrent bleeding- excision of posterior vagianl tissue and repair- 4 cm area- bipsy sent to rule out vaginal endometriosis- not report avaialble Transfusion x 1 u PRBC Repair of vaginal vault tear ([id number]) on 10/25/2021 at 21 Years. Comments: 02/11/2022 9:07 ERIN XIONG MD vaginal vault tear with heavy bleeding following vaginal u/s. OR x 2 Hysteroscopy to evaluate uterine cavity- normal Transfusion x 2 u PRBC Laparoscopic ablation of pelvic endometriosis ([id number]) in the month of 03/2021 at 21 Years. Comments: 02/11/2022 8:54 ERIN XIONG MD recurrent pain, Laparoscopic excision of pelvic endometriosis ([id number]) on 03/05/2021 at 21 Years. Comments: 02/21/2022 11:12 Dick Forte Pathology Pelvic side wall biopsy LEFT: Mesothelial-lined fibrous tissue with focal calcification and foreignbody giant cell reaction to polarizable material. No endomestrisosis identified. Laparoscopic ablation of pelvic endometriosis ([id number]) in the month of 08/2020 at 20 Years. Comments: 02/11/2022 8:53 ERIN XIONG MD Excision of endometriosis Cystoscopy ([id number]) on 08/26/2020 at 20 Years. Laparoscopic excision of pelvic endometriosis ([id number]) on 03/17/2020 at 20 Years. Comments: 04/16/2020 13:50 ERIN VERMA MD mild endometriosis otherwise normal anatomy Laparoscopic appendectomy ([id number]) in the month of 11/2019 at 19 Years. Comments: 03/04/2020 23:03 ERIN XIONG MD noted to have endometriosis on appendix D&C - Dilatation and curettage ([id number]) in the month of 06/2018 at 18 Years. Comments: 02/20/2020 10:14 ERIN XIONG MD menorrhagia Laparoscopy with aspiration ([id number]) in the month of 01/2018 at 18 Years. Comments: 02/20/2020 10:14 ERIN XIONG MD aspiration of endometrioma Appendectomy ([id number]).. Family history: Diabetes mellitus type 2 Grandfather (Paternal) Cervical cancer Grandmother (Maternal) Cancer Mother Comments: 03/04/2020 13:15 Natalie Rodarte LPN Possibly breast ? per pt. Heart Disease Father Grandfather (Paternal) . 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 Exercise Exercise frequency: Daily. Exercise type: Walking. Home/Environment Lives with Grandfather.. Living situation Home/Independent. Nutrition/Health Regular Sexual Sexually active: Yes. Number of current partners 1. Sexual orientation: Straight or heterosexual. Uses condoms: No. Identifies as female Gender Identity:. Substance Abuse Past, Marijuana Current, Marijuana Tobacco Never tobacco user Tobacco Use:. Never (less than 100 in lifetime) Tobacco Use:. Electronic Cigarette/Vaping Electronic Cigarette Use: Former use, quit more than 90 days ago. Electronic Cigarette Use: Former use, quit more than 90 days ago. Type: Cannabinoid infused, Nicotine infused. Psychosocial History No active psychosocial history has been recorded . Problem list: Active Problems (4) Abdominal pain due to injury Adenomyosis Asthma Endometriosis . Physical Examination Vital Signs Measurements 07/09/2022 23:08 EST Weight Dosing 77.000 kg 07/09/2022 23:08 EST Height/Length Dosing 166.000 cm 07/09/2022 23:04 EST Height/Length Estimated 166.000 cm Weight Estimated 77.000 kg 07/08/2022 22:27 EST Height/Length Dosing 166.000 cm Weight Dosing 77.000 kg 07/08/2022 22:16 EST Height 166.000 cm Weight 77.000 kg . General: Alert, no acute distress. Skin: Warm, dry. Head: Atraumatic. Neck: Supple. Respiratory: Respirations are non-labored. Gastrointestinal: Soft, Nontender, Non distended, Ostomy with output of soft feces without any skinchanges . Neurological: Alert and oriented to person, place, time, and situation. Psychiatric: Cooperative. Medical Decision Making Patient complaining of passing hard object through rectovaginal fistula, brought the object in withher, it is hardened feces, is brown without any signs of blood mixed in with it, roughly 2 to 3 cm in size, patient states this does happen on occasion where she passes feces through her vagina due to the rectovaginal fistula but because the object was so hard and she did not know what it was she came in tonight, her abdomen is soft nondistended and nontender in all quadrants, significantly improved compared to prior evaluation last night, her stoma output is soft with normal appearance with nosigns of blood, has had increased stoma output today, this is consistent with her relative constipation that was diagnosed last night, does appear to be improving as the stoma output has softened andincreased, likely her increased motility caused her to pass some constipated stool through the rectovaginal fistula, on review of her surgeons records from [facility] they do state that some output through the vagina is possible but that she should follow-up with them if it is a regular occurrence, she has follow-up appointment with her specialists for repair of the rectovaginal fistula as well as tentative ostomy reversal in a month, as patient is otherwise well-appearing tolerating p.o. with a soft nontender and benign abdomen and no other complaints will discharge home. Patient did not want to wait for her discharge paperwork and instructions and just wanted to leave after my evaluation, had discussion regarding return precautions and need to follow- up. Patient understands this plan and is agreeable to it. Impression and Plan Diagnosis Constipation [Electronically Signed on: 07/10/2022 03:10 EST] MONSE PURI DO [Verified on: 07/10/2022 03:10 EST] MONSE PURI DO Nurse Progress note * Vasquez Shannon RN: PERFORM Event Display: Progress Note-Nurse Authored Date: [id number] Pt was seen by ED Physician immediately after triage and initial nursing assessment. Pt spent a fewminutes talking with provider and pt left before getting discharge paperwork. [Electronically Signed on: 07/09/2022 23:38 EST] Vasquez Shannon RN RN [Verified on: 07/09/2022 23:38 EST] Vasquez Shannon RN RN Patient Care team information Care Team Personnel Name: ALANIS DE LA TORRE Position: [facility] Physician OB Tracking Member Role: Nurse Practitioner Address: Address: [address] [place] [address] Name: ERIN POWER MD Position: [facility] Physician OB Tracking Member Role: HUMAN RESOURCES BENEFITS COORDINATOR Physician Address: Address: [address] Name: ABELARDO FAULKNER Position: [facility] Physician Acute/Clinic/PNED Member Role: Nurse Practitioner Address: Address: [address] [place] [address] Name: Adeel Busby Position: [facility] No Access Member Role: Primary Care Physician Name: Vasquez Shannon RN Position: [facility] RN LP [facility] Member Role: ED Nurse Name: MONSE PURI Position: [facility] ED Physician LP Member Role: Attending Physician Care Team Related Persons Name: BO PAYAN
--- OUTSIDE RECORDS SUMMARY | 2022-11-20 17:52 | XMS_ITS | Continuity of Care Document ---
Author Name Unknown Organization [facility] Address [address] [place] [address]- Care Team Providers Care Copyman Name Role Phone Non-Staff, Physician Primary Care Physician Unav ailable Encounter [facility] [id number] Date(s): 05/27/20 - 05/27/[address] [address]- Encounter Diagnosis Abdominal pain due to injury(Discharge Diagnosis) - 05/27/20 Discharge Disposition: Home or Self Care Attending Physician: ARIE CORDOVA Admitting Physician: ARIE CORDOVA Allergies, Adverse Reactions, Alerts Substance Reaction Severity Status Latex Itching Active penicillins Edema Hives Active Compazine Edema Active Toradol Nausea Active Assessment and Plan Extracted from: Title:General medical Author:ARIE CORDOVA Date:05/27/20 History of Present Illness Patient is an otherwise healthy 20-year-old female coming in due to lower pelvic pain since a fall yesterday. Patient reports she fell down flight of stairs, states that she has had pain in her lower suprapubic region since, she reports it is never fully gone away, she reports at times it does get worse however she cannot identify anything other than eating that makes that pain worse. Patient denies any head or neck injury, she denies any numbness or tingling, she denies any pain in her chest or shortness of breath. Patient reports she has mild pain in her lower back however reports that the majority of the pain is in the suprapubic region, she denies unilateral pain. Patient denies any abnormal vaginal bleeding or possibility of , she denies any urinary changes. Patient reports she has been taking ibuprofen due to the pain however has had continued pain. Review of Systems Respiratory symptoms: No shortness of breath, Cardiovascular symptoms: No chest pain, no syncope. Gastrointestinal symptoms: Abdominal pain, no nausea, no vomiting, no diarrhea. Neurologic symptoms: No headache, no dizziness, no altered level of consciousness, no numbness, no tingling, no weakness. Additional review of systems information: All other systems reviewed and otherwise negative. Health Status Allergies: Allergic Reactions (Selected) Severity Not Documented Compazine- Edema. Latex- Itching. Penicillins- Edema and hives. Toradol- Nausea.. Medications: (Selected) Prescriptions Prescribed Orilissa 150 mg oral tablet: 150 mg = 1 tab(s), Oral, Daily, 30 tab(s), 11 Refill(s) Phenergan 25 mg rectal suppository: 25 mg = 1 supp, Per rectum, q8hr, 21 supp, 0 Refill(s) Protonix 40 mg oral delayed release tablet: 40 mg = 1 tab(s), Oral, Daily, 15 tab(s), 0 Refill(s) Valtrex 500 mg oral tablet: 500 mg = 1 tab(s), Oral, BID, for 7 day(s), 14 tab(s), 0 Refill(s) Zofran ODT 4 mg oral tablet, disintegratin mg = 1 tab(s), Oral, q8hr, PRN: Nausea/Vomiting, 30 tab(s), 0 Refill(s) norethindrone 5 mg oral tablet: 10 mg = 2 tab(s), Oral, Daily, for 30 day(s), 60 tab(s), 3 Refill(s) Documented Medications Documented busPIRone 10 mg oral tablet: mg = tab(s), Oral, BID, 0 Refill(s) ibuprofen: 800 mg, 0 Refill(s). Past Medical/ Family/ Social History Medical history: No active or resolved past medical history items have been selected or recorded.. Surgical history: Laparoscopic excision of pelvic endometriosis ([id number]) on 03/17/2020 at 20 Years. Comments: 04/16/2020 13:50 ERIN VERMA MD mild endometriosis otherwise normal anatomy Laparoscopic appendectomy ([id number]) in the month of 11/2019 at 19 Years. Comments: 03/04/2020 23:03 ERIN XIONG MD noted to have endometriosis on appendix D&C - Dilatation and curettage ([id number]) in the month of 06/2018 at 18 Years. Comments: 02/20/2020 10:14 ERIN XIONG MD menorrhagia Laparoscopy with aspiration ([id number]) in the month of 01/2018 at 18 Years. Comments: 02/20/2020 10:14 ERIN XIONG MD aspiration of endometrioma. Social history: Social & Psychosocial History Social History Alcohol Current, 1-2 times per week Employment/School Unemployed, Work/School description: [employer]. Exercise Exercise frequency: Daily. Exercise type: Walking. Home/Environment Lives with Grandfather.. Living situation Home/Independent. Nutrition/Health Regular Sexual Sexually active: Yes. Number of current partners 1. Sexual orientation: Straight or heterosexual. Other contraceptive use: Family planning. Identifies as female Gender Identity:. Substance Abuse Never Tobacco Never (less than 100 in lifetime) Tobacco Use:. Electronic Cigarette/Vaping Electronic Cigarette Use: Use, within last 90 days. Type: Cannabinoid infused, Nicotine infused. Electronic Cigarette Use: Use, within last 90 days. Type: Nicotine infused. Use per Day: 1-25 Inhales/day. Psychosocial History No active psychosocial history has been recorded. Problem list: Active Problems (2) Asthma Endometriosis . Physical Examination Vital Signs Measurements 05/27/2020 12:49 EST Height/Length Dosing 162.000 cm Weight Dosing 76.000 kg 05/27/2020 12:48 EST Height/Length Estimated 162.000 cm Weight Estimated 76.000 kg . General: Alert, no acute distress. Skin: Warm, dry. Head: Normocephalic. Ears, nose, mouth and throat: Tympanic membrane: hemotympanum negative. Cardiovascular: Regular rate and rhythm, No murmur, Normal peripheral perfusion, No edema. Respiratory: Lungs are clear to auscultation, respirations are non-labored, breath sounds are equal, Symmetrical chest wall expansion. Gastrointestinal: Soft, Tenderness: Moderate, suprapubic, Guarding: Negative, Rebound: Negative, Bowel sounds: Normal. Back: Normal range of motion, no step-offs, Pt has mild ttp over lower lumbar region, 5+/5 strength of proximal and distal muscle groups, nml sensation in all distributions, 2+ patellar reflexes, pt able to heel and toe walk w/ out difficulty. . Musculoskeletal: Normal ROM. Neurological: Normal sensory observed, normal motor observed. Psychiatric: Cooperative. Medical Decision Making Rationale: Patient is a 20-year-old female coming in due to lower abdominal pain after a fall yesterday. Patient reports she fell down stairs landing on her abdomen, she reports she did not have any head or neck injury, she denies any headache, loss of consciousness, nausea vomiting, she denies any pain to her neck or distal numbness tingling weakness. Patient denies any injury to her chest she denies any shortness of breath or difficulty breathing. Patient reports she had ongoing pain to the suprapubic and lower abdominal region, she denies any unilateral pain, reports the pain has been constant since yesterday other than eating she cannot identify what makes the pain worse. Patient reports some pain in her back however she denies any saddle paresthesias, urinary retention, bowel incontinence, or motor weakness. On exam patient is well-appearing however in no acute distress she does appear uncomfortable. Patient has no tenderness over her cervical spine she has normal range of motion of her neck and no distal numbness tingling weakness. Patient does not appear to have abrasions to her head visible on my exam, no pereyra sign, raccoon's eyes or hemotympanum. Patient's lungs are clear throughout no increased work of breathing, tachypnea. No murmurs rubs or gallops. Patient has no tenderness over thoracic spine. Patient does appear to have tenderness in the lower lumbar region however there is no swelling erythema. Patient has 5/5 strength proximal distal muscle groups of lower extremities normal sensation in all distributions and 2+ patellar reflexes, patient is able to heel toe walk without difficulty. Patient has diffuse abdominal tenderness worse in the lower abdomen than upper, however abdomen soft with no rebound or guarding, I do not appreciate any ecchymosis swelling or abrasions. Plan at this time is for lab work and pain management as well as CT, patient is comfortable having CT performed. Lab work reviewed. CT does not show acute abnormality, as well lumbar spine region 3D recons. I have reviewed evaluation w/ pt, reexamined pt, abdomen is soft, nontender, normoactive bowel sounds, no rebound or guarding. I d/w pt symptomatic management, pt expressed understanding and agreement w/ treatment plan, return precautions, and need for close follow up. Reviewed w/ attendign who was in agreement w/ assessment and treatment plan. . Results review: Reviewed Results: Lab results : Lab View(Date Range: 05/26/2020 0:00 EST - 05/27/2020 18:37 EST), Lab results : Lab View 05/27/2020 13:11 EST WBC 9.2 x10(3)/uL RBC 5.19 x10(6)/uL Hgb 11.5 gm/dL Hct 37.0 % MCV 71.3 fL LOW MCH 22.2 pg LOW MCHC 31.1 gm/dL LOW RDW-CV 14.8 % HI Platelet 370 x10(3)/uL MPV 11.7 fL Neutro Auto 44.7 % LOW Lymph Auto 44.0 % [place] Auto 8.0 % Eos Auto 1.4 % Basophil Auto 0.2 % Immature Gran % 1.70 % NRBC Auto Pct 0.00 % Neutro Absolute 4.12 x10(3)/uL Lymph Absolute 4.07 x10(3)/uL HI [place] Absolute 0.74 x10(3)/uL HI Eos Absolute 0.13 x10(3)/uL Basophil Absolute 0.02 x10(3)/uL Immature Gran Absolute 0.16 x10(3)/uL NA NRBC Absolute 0.00 x10(3)/uL Sodium Lvl 137 mmol/L Potassium Lvl 4.0 mmol/L Chloride 100 mmol/L CO2 24 mmol/L AGAP 17.0 mmol/L BUN 13 mg/dL Creatinine 0.75 mg/dL GFR NonAfrican Northern Irish 98 mL/min/1.73 m2 NA Glucose Lvl 94 mg/dL Calcium Lvl 9.2 mg/dL Total Protein 7.2 gm/dL Albumin Lvl 4.40 gm/dL Alk Phos 38 IntUnit/L ALT 48 IntUnit/L HI AST 26 IntUnit/L Bili Total 0.3 mg/dL Lipase Lvl 28 IntUnit/L Osmolality 273.7 mOsm/kg HCG Qualitative Serum Negative 05/27/2020 13:10 EST UA Color Yellow UA Clarity Clear UA Spec Grav 1.020 UA Bili Negative UA pH 7.5 UA Urobilinogen 0.2 EU/dL UA Blood Negative UA Glucose Negative UA Ketones Neg UA Protein Negative UA Nitrite Negative UA Leuk Est Trace Urine Culture? Yes Micro? Indicated UA WBC 0-2 UA RBC 0-2 UA Mucous Slight UA Bacteria Rare . Radiology results: CT (ST) Computed Tomography: ?? CT Abdomen/Pelvis w/ Contrast ?? 05/27/20 16:57:21 EXAMINATION: CT Abdomen/Pelvis w/ Contrast CLINICAL HISTORY: lower pelvic pain after trauma, reports she fell down a flight of stairs yesterday TECHNIQUE: Helical CT of the abdomen and pelvis was performed following the intravenous administration of 99 ml of Omnipaque 300. Oral contrast was administered. COMPARISON: 05/15/2020 FINDINGS: Lower chest: Normal. Liver: Normal size and attenuation without lesions. Bile ducts: Nondilated. Gallbladder: No calcified gallstones. Normal caliber wall. Pancreas: Normal attenuation without ductal dilatation. Spleen: Normal. Adrenals: Normal. Kidneys: Normal. Urinary Bladder: Normal. Vasculature: No aneurysm. Lymph Nodes: No enlarged lymph nodes. Bowel: Nondilated, no wall thickening. Small 3 mm focus of increased densities projecting adjacent to the duodenum. This may represent postsurgical clip versus small foreign body within the lumen of the GI tract. Status post appendectomy. No acute GI tract abnormalities are identified. Peritoneum and mesentery: No ascites, free air, or loculated fluid collection. No mesenteric inflammation. Abdominal wall: Normal. Reproductive organs: Unremarkable in appearance. Osseous structures: No fracture is identified. IMPRESSION: No evidence of posttraumatic abnormalities within the abdomen and pelvis. Thank you for letting us participate in the care of this patient. For questions regarding this report, please contact the number below. ?? Signed By: SHIVA OROZCO ?? CT 3D Reconstruction Spine Lumbar ?? 05/27/20 16:53:58 EXAMINATION: CT 3D Reconstruction Spine Lumbar CLINICAL HISTORY: lower back pain after fall TECHNIQUE: Reconstructed images were obtained from helical data acquisition, CT of abdomen and pelvis. CT of the abdomen and pelvis is performed 05/27/2020. We scanned from S1 through mid T12. COMPARISON: Previous CT of the lumbar spine 11/16/2018 FINDINGS: Alignment of the lumbar spine is normal on sagittal and coronal images. Vertebral bodies appear normal height and contour. Intervertebral disks appear normal in height. The spinal canal is of normal diameter. No paraspinal hemorrhages identified. No fractures are seen. I note no convincing evidence of intraspinal pathology. IMPRESSION: Normal CT of the lumbar spine. Thank you for letting us participate in the care of this patient. For questions regarding this report, please contact the number below. ?? Signed By: SEN LEO . Impression and Plan Diagnosis Abdominal pain due to injury ([id number] R10.9, Discharge, Medical) Plan Patient was given the following educational materials: Abdominal Pain, Adult, [id number]. Follow up with: Physician Non-Staff Within 1 to 2 days Return to the ED if you develop worsened symptoms, shortness of breath, lightheadedness, difficulty tolerating oral intake, other new or concerning symptom. Follow up with your primary care in 1day for reevaluation. . Diagnostic Tests Pending * Culture Urine 05/27/20 Functional Status 05/27/20 Recent Travel History No recent travel Family Member Travel History No recent t ravel COVID-19 Screening COVID-19 Symptoms Pr esent, Exposure to respiratory illness of unknown etiology, Healthcare exposure to COVID-19 within the last 14 days Medications busPIRone 10 mg oral tablet mg tab(s), Oral, BID, 0 Refill(s) Start Date: 04/16/20 Status: Ordered ibuprofen 800 mg, 0 Refill(s) Start Date: 03/04/20 Status: Ordered norethindrone 5 mg oral tablet 10 mg = 2 tab(s), Oral, Daily, # 60 tab(s), 3 Refill(s), Pharmacy: [facility], 2tab(s) Oral Daily,x30 day(s) Start Date: 05/20/20 Stop Date: 09/17/20 Status: Ordered Orilissa 150 mg oral tablet 150 mg = 1 tab(s), Oral, Daily, # 30 tab(s), 11 Refill(s), Pharmacy: [id number], 1tab(s) Oral Daily Start Date: 02/19/20 Status: Ordered Phenergan 25 mg rectal suppository 25 mg = 1 supp, Per rectum, q8hr, # 21 supp, 0 Refill(s), Pharmacy: [facility], 1 supp Per rectum q8hr Start Date: 03/04/20 Status: Ordered Protonix 40 mg oral delayed release tablet 40 mg = 1 tab(s), Oral, Daily, # 15 tab(s), 0 Refill(s), Pharmacy: [facility], 1tab(s) Oral Daily Start Date: 03/26/20 Status: Ordered Valtrex 500 mg oral tablet 500 mg = 1 tab(s), Oral, BID, X 7 day(s), # 14 tab(s), 0 Refill(s), 06/01/20, [facility]: [email or web address], 1 tab(s) Oral BID,x7 day(s) Start Date: 05/25/20 Stop Date: 06/01/20 Status: Ordered Zofran ODT 4 mg oral tablet, disintegrating 4 mg = 1 tab(s), Oral, q8hr, PRN PRN Nausea/Vomiting, # 30 tab(s), 0 Refill(s), Pharmacy: [id number], 1 tab(s) Oral q8hr,PRN:Nausea/Vomiting Start Date: 02/27/20 Status: Ordered Problem List Condition Effective Dates Status Health Status Inform ant Abdominal pain due to injury(Confirmed) Active Asthma(Confirmed) Active Endometriosis(Confirmed) Active Procedures Procedure Date Related Diagnosis Body Site Status Laparoscopic excision of pel makenzie endometriosis 1 03/17/20 Completed Laparoscopic appendectomy 2 11/2019 Completed D&C - Dilatation and curettage 3 06/2018 Completed Laparoscopy with aspiration 4 01/2018 Completed 1mild endometriosis otherwise normal anatomy 2noted to have endometriosis on appendix 3menorrhagia 4aspiration of endometrioma Results Laboratory List Name Date Automated Differential Standard 05/27/20 CBC w/Diff Standard 05/27/20 Comprehensive Metabolic Panel Standard ( CMP Standard) 05/27/20 Lipase Level 05/27/20 Test Serum Standard 05/27/20 Urinalysis Microscopic Standard 05/27/20 Urinalysis with Culture, if indicated [facility] 05/27/20 Most recent to oldest [Reference Range]: 1 Urine Culture? Yes (05/27/20 1:10 PM) NRBC Auto Pct [0.00-0.20 %] 0.00 % (05/27/20 1:11 PM) Creatinine [0.50-0.90 mg/dL] 0.75 mg/dL (05/27/20 1:11 PM) UA Bacteria [None Seen] Rare *ABN* (05/27/20 1:10 PM) UA Bili [Negative] Negative (05/27/20 1:10 PM) UA Blood [Negative] Negative (05/27/20 1:10 PM) UA Color Yellow (05/27/20 1:10 PM) UA Glucose [Negative] Negative (05/27/20 1:10 PM) UA Ketones [Neg] Neg (05/27/20 1:10 PM) UA Leuk Est [Negative] Trace *ABN* (05/27/20 1:10 PM) UA Mucous Slight *ABN* (05/27/20 1:10 PM) UA Nitrite [Negative] Negative (05/27/20 1:10 PM) UA Protein [Negative] Negative (05/27/20 1:10 PM) UA RBC [0-2] 0-2 (05/27/20 1:10 PM) UA Urobilinogen 0.2 EU/dL (05/27/20 1:10 PM) UA WBC 0-2 (05/27/20 1:10 PM) AGAP [10.0-18.0 mmol/L] 17.0 mmol/L (05/27/20 1:11 PM) Glucose Lvl [70-100 mg/dL] 94 mg/dL (05/27/20 1:11 PM) Hct [34.1-44.9 %] 37.0 % (05/27/20 1:11 PM) Hgb [11.5-15.7 gm/dL] 11.5 gm/dL (05/27/20 1:11 PM) Lipase Lvl [13-60 IntUnit/L] 28 IntUnit/ L (05/27/20 1:11 PM) Lymph Auto [15.0-45.0 %] 44.0 % (05/27/20 1:11 PM) MCH [25.6-32.2 pg] 22.2 pg *LOW* (05/27/20 1:11 PM) MCHC [32.3-36.5 gm/dL] 31.1 gm/dL *LOW* (05/27/20 1:11 PM) MCV [79.4-94.8 fL] 71.3 fL *LOW* (05/27/20 1:11 PM) [place] Auto [4.0-14.0 %] 8.0 % (05/27/20 1:11 PM) MPV [9.4-12.4 fL] 11.7 fL (05/27/20 1:11 PM) Neutro Auto [50.0-75.0 %] 44.7 % *LOW* (05/27/20 1:11 PM) Osmolality [268.0-291.0 mOsm/kg] 273.7 m Osm/kg (05/27/20 1:11 PM) Platelet [150-400 x10(3)/uL] 370 x10(3)/ uL (05/27/20 1:11 PM) RBC [3.93-5.22 x10(6)/uL] 5.19 x10(6)/uL (05/27/20 1:11 PM) Sodium Lvl [136-145 mmol/L] 137 mmol/L (05/27/20 1:11 PM) Total Protein [6.6-8.7 gm/dL] 7.2 gm/dL (05/27/20 1:11 PM) UA pH 7.5 (05/27/20 1:10 PM) Albumin Lvl [3.50-5.20 gm/dL] 4.40 gm/dL (05/27/20 1:11 PM) Alk Phos [35-105 IntUnit/L] 38 IntUnit/L (05/27/20 1:11 PM) ALT [0-33 IntUnit/L] 48 IntUnit/L *HI* (05/27/20 1:11 PM) AST [0-32 IntUnit/L] 26 IntUnit/L (05/27/20 1:11 PM) Basophil Auto [0.0-2.0 %] 0.2 % (05/27/20 1:11 PM) Bili Total [0.0-1.3 mg/dL] 0.3 mg/dL (05/27/20 1:11 PM) CO2 [22-29 mmol/L] 24 mmol/L (05/27/20 1:11 PM) Eos Auto [0.0-8.0 %] 1.4 % (05/27/20 1:11 PM) UA Spec Grav 1.020 (05/27/20 1:10 PM) WBC [4.0-10.0 x10(3)/uL] 9.2 x10(3)/uL (05/27/20 1:11 PM) BUN [6-23 mg/dL] 13 mg/dL (05/27/20 1:11 PM) Calcium Lvl [8.6-10.2 mg/dL] 9.2 mg/dL (05/27/20 1:11 PM) Chloride [98-107 mmol/L] 100 mmol/L (05/27/20 1:11 PM) Potassium Lvl [3.5-5.1 mmol/L] 4.0 mmol/ L (05/27/20 1:11 PM) Micro? [Not Indicated] Indicated *ABN* (05/27/20 1:10 PM) Lymph Absolute [1.20-3.70 x10(3)/uL] 4.0 7 x10(3)/uL *HI* (05/27/20 1:11 PM) [place] Absolute [0.20-0.40 x10(3)/uL] 0.74 x10(3)/uL *HI* (05/27/20 1:11 PM) Eos Absolute [0.04-0.54 x10(3)/uL] 0.13 x10(3)/uL (05/27/20 1:11 PM) NRBC Absolute [0.00-0.01 x10(3)/uL] 0.00 x10(3)/uL (05/27/20 1:11 PM) UA Clarity Clear (05/27/20 1:10 PM) Neutro Absolute [1.56-6.13 x10(3)/uL] 4. 12 x10(3)/uL (05/27/20 1:11 PM) RDW-CV [11.7-14.4 %] 14.8 % *HI* (05/27/20 1:11 PM) GFR NonAfrican Northern Irish 98 mL/min/1.73 m 2 *NA* (05/27/20 1:11 PM) Immature Gran % [0.00-2.30 %] 1.70 % (05/27/20 1:11 PM) Immature Gran Absolute 0.16 x10(3)/uL *NA* (05/27/20 1:11 PM) HCG Qualitative Serum [Negative] Negativ e (05/27/20 1:11 PM) Basophil Absolute [0.00-0.10 x10(3)/uL] 0.02 x10(3)/uL (05/27/20 1:11 PM) Radiology Reports * Exam Date Time Procedure Performing Provider Status 05/27/20 4:[address] Abdomen/Pelvis w/ Contrast Gaby Worrell; Auth (Verified) Notes: (CT Abdomen/Pelvis w/ Contrast) Reason For Exam: lower pelvic pain after trauma, reports she fell down a flight of stairs yesterday CT Abdomen/Pelvis w/ Contrast EXAMINATION: CT Abdomen/Pelvis w/ Contrast CLINICAL HISTORY: lower pelvic pain after trauma, reports she fell down a flight of stairs yesterday TECHNIQUE: Helical CT of the abdomen and pelvis was performed following the intravenous administration of 99 ml of Omnipaque 300. Oral contrast was administered. COMPARISON: 05/15/2020 FINDINGS: Lower chest: Normal. Liver: Normal size and attenuation without lesions. Bile ducts: Nondilated. Gallbladder: No calcified gallstones. Normal caliber wall. Pancreas: Normal attenuation without ductal dilatation. Spleen: Normal. Adrenals: Normal. Kidneys: Normal. Urinary Bladder: Normal. Vasculature: No aneurysm. Lymph Nodes: No enlarged lymph nodes. Bowel: Nondilated, no wall thickening. Small 3 mm focus of increased densities projecting adjacent to the duodenum. This may represent postsurgical clip versus small foreign body within the lumen of the GI tract. Status post appendectomy. No acute GI tract abnormalities are identified. Peritoneum and mesentery: No ascites, free air, or loculated fluid collection. No mesenteric inflammation. Abdominal wall: Normal. Reproductive organs: Unremarkable in appearance. Osseous structures: No fracture is identified. IMPRESSION: No evidence of posttraumatic abnormalities within the abdomen and pelvis. Thank you for letting us participate in the care of this patient. For questions regarding this report, please contact the number below. Final Dictated: 05/27/2020 4:57 pm SHIVA OROZCO Signed (Electronic Signature): 05/27/2020 4:57 pm Signed by: SHIVA OROZCO * Exam Date Time Procedure Performing Provider Status 05/27/20 4:[address] 3D Reconstruction Spine Lumbar Whit eman, Gaby E; Auth (Verified) Notes: (CT 3D Reconstruction Spine Lumbar) Reason For Exam: lower back pain after fall CT 3D Reconstruction Spine Lumbar EXAMINATION: CT 3D Reconstruction Spine Lumbar CLINICAL HISTORY: lower back pain after fall TECHNIQUE: Reconstructed images were obtained from helical data acquisition, CT of abdomen and pelvis. CT of the abdomen and pelvis is performed 05/27/2020. We scanned from S1 through mid T12. COMPARISON: Previous CT of the lumbar spine 11/16/2018 FINDINGS: Alignment of the lumbar spine is normal on sagittal and coronal images. Vertebral bodies appear normal height and contour. Intervertebral disks appear normal in height. The spinal canal is of normal diameter. No paraspinal hemorrhages identified. No fractures are seen. I note no convincing evidence of intraspinal pathology. IMPRESSION: Normal CT of the lumbar spine. Thank you for letting us participate in the care of this patient. For questions regarding this report, please contact the number below. Final Dictated: 05/27/2020 4:53 pm SEN LEO Signed (Electronic Signature): 05/27/2020 4:53 pm Signed by: SEN LEO Vital Signs Most recent to oldest [Reference Range]: 1 2 3 Temperature Temporal [36.3-37.8 DegC] 36.9 DegC (05/27/20 1:08 PM) Peripheral Pulse Rate [60-100 bpm] 78 bpm (05/27/20 6:46 PM) 90 bpm (05/27/20 1:08 PM) Respiratory Rate [14-20 br/min] 16 br/min (05/27/20 6:46 PM) 16 br/min (05/27/20 1:08 PM) Blood Pressure [90-140/60-90 mmHg] 118/76mmHg (05/27/20 6:46 PM) 116/76mmHg (05/27/20 1:08 PM) SpO2 [92-100 %] 99 % (05/27/20 6:46 PM) 99 % (05/27/20 1:08 PM) Height/Length Estimated 162.000 cm (05/27/20 1:08 PM) 162.000 cm (05/27/20 12:48 PM) Height/Length Dosing 162.000 cm (05/27/20 1:09 PM) 162.000 cm (05/27/20 12:49 PM) Weight Estimated 76.000 kg (05/27/20 6:46 PM) 76.000 kg (05/27/20 1:08 PM) 76.000 kg (05/27/20 12:48 PM) Weight Dosing 76.000 kg (05/27/20 1:09 PM) 76.000 kg (05/27/20 12:49 PM) Social History Social History Type Response Smoking Status Never (less than 100 in lifetime) entered on: 02/18/20 Sex Hospital Discharge Instructions Patient Education 05/27/2020 18:40:59 Abdominal Pain, Adult, [id number] Abdominal Pain, Adult Many things can cause belly (abdominal) pain. Most times, belly pain is not dangerous. Many cases of belly pain can be watched and treated at home. Sometimes belly pain is serious, though. Your doctor will try to find the cause of your belly pain. Follow these instructions at home: ??? Take [id number] and prescription medicines only as told by your doctor. Do not take medicines that help you poop (laxatives) unless told to by your doctor. ??? Drink enough fluid to keep your pee (urine) clear or pale yellow. ??? Watch your belly pain for any changes. ??? Keep all follow-up visits as told [...] or with certain foods. ??? You are throwing up and cannot keep anything down. ??? You have a fever. Get help right away if: ??? Your pain does not go away as soon as your doctor says it should. ??? You cannot stop throwing up. ??? Your pain is only in areas [...] ??? Sunken eyes. ??? Sleepiness. ??? Weakness. This information is not intended to replace advice given to you by your health care provider. Make sure you discuss any questions you have with your health care provider. Document Released: 10/17/2008 Document Revised: 11/18/2016 Document Reviewed: 10/12/2016 [employer] Patient Education ?? 2020 [employer] Follow Up Care 05/27/2020 12:46:37 With:Physician Non-Staff Address:Unknown When:1 to 2 days Comments:Return to the ED if you develop worsened symptoms, shortness of breath, lightheadedness, difficultytolerating oral intake, other new or concerning symptom. Follow up with your primary care in 1day for reevaluation.
--- OUTSIDE RECORDS SUMMARY | 2022-11-20 17:52 | XMS_ITS | Continuity of Care Document ---
Author Name Unknown Organization [facility] Address [address] [place] [address] Care Team Providers Care Radiological Engineer Name Role Phone RICARDO RUTH Primary Care Physician [phone] Encounter BVT Date(s): 03/16/22 - 03/16/22 [facility] [address] [facility] [place], [place] [address] Encounter Diagnosis Menorrhagia with irregular cycle(Discharge Diagnosis) - 03/16/22 Anemia due to blood loss(Discharge Diagnosis) - 03/16/22 Discharge Disposition: Home Attending Physician: ERIN POWER MD Allergies, Adverse Reactions, Alerts Substance Reaction Severity Status droperidol Moderate Active Latex Itching Active penicillins Edema Hives Active Haldol Moderate Active Compazine Edema Active Toradol Nausea Active Assessment and Plan Future Appointments Functional Status 03/16/22 COVID-19 Screening None Medications !-Zofran ODT 4 mg oral tablet, disintegrating 4 mg = 1 tab(s), Oral, q8hr, PRN PRN Nausea/Vomiting, # 30 tab(s), 0 Refill(s), Pharmacy: [facility] #[id number], 1 tab(s) Oral q8hr,PRN:Nausea/Vomiting, 164, cm, 01/17/22 19:35:00 EDT, Height/Length Dosing, 77.11, kg, 01/17/22 19:35:00 EDT, Weight Dosing Start Date: 03/16/22 Status: Ordered Benadryl 25 mg oral capsule 25 mg = 1 cap(s), Oral, Daily, 0 Refill(s) Start Date: 09/27/20 Status: Ordered Colace Oral, BID, 0 Refill(s) Start Date: 09/27/20 Status: Ordered drospirenone-ethinyl estradiol 3 mg-0.03 mg oral tablet 1 tab(s), Oral, Daily, # 28 tab(s), 5 Refill(s), [facility]: [facility][id number], 1 tab(s) Oral Daily, 164, cm, 01/17/22 19:35:00 EDT, Height/Length Dosing, 77.11, kg, 01/17/22 19:35:00 EDT, Weight Dosing Start Date: 03/16/22 Status: Ordered gabapentin 300 mg oral capsule 300 mg = 1 cap(s), Oral, Once a day (at bedtime), # 30 cap(s), 0 Refill(s) Start Date: 12/18/20 Status: Ordered hydrOXYzine pamoate 100 mg oral capsule 100 mg = 1 cap(s), Oral, Daily, PRN PRN for anxiety, # 40 cap(s), 0 Refill(s) Start Date: 09/27/20 Status: Ordered hydrOXYzine pamoate 50 mg oral capsule 50 mg = 1 cap(s), Oral, QID, PRN PRN for anxiety, # 40 cap(s), 0 Refill(s) Start Date: 09/27/20 Status: Ordered MiraLax 17 gm 1 packet(s), Oral, Daily, 0 Refill(s) Start Date: 09/27/20 Status: Ordered montelukast 4 mg oral granule mg EA, Oral, Daily, 0 Refill(s) Start Date: 09/27/20 Status: Ordered norethindrone 5 mg oral tablet 10 mg = 2 tab(s), Oral, Daily, # 60 tab(s), 3 Refill(s), [facility]: [facility], 2tab(s) Oral Daily,x30 day(s) Start Date: 05/20/20 Stop Date: 09/17/20 Status: Ordered omeprazole Oral, Daily, 0 Refill(s) Start Date: 09/27/20 Status: Ordered ondansetron 4 mg oral tablet, disintegrating 4 mg = 1 tab(s), Oral, q8hr, PRN PRN Nausea/Vomiting, # 20 tab(s), 0 Refill(s), Pharmacy: [facility], 1 tab(s) Oral q8hr,PRN:Nausea/Vomiting, 165, cm, 07/13/21 17:17:00 EST, Height/Length Dosing, 83, kg, 07/13/21 17:17:00 EST, Weight Dosing Start Date: 07/14/21 Status: Ordered ProAir HFA INH, q6hr, 0 Refill(s) Start Date: 09/27/20 Status: Ordered Protonix 40 mg oral delayed release tablet 40 mg = 1 tab(s), Oral, Daily, # 15 tab(s), 0 Refill(s), [facility]: [facility], 1tab(s) Oral Daily Start Date: 03/26/20 Status: Ordered sertraline 100 mg oral tablet mg tab(s), Oral, Daily, 0 Refill(s) Start Date: 09/27/20 Status: Ordered tiZANidine 4 mg oral tablet See Instructions, 1 tab(s) Oral q8hr, 0 Refill(s) Start Date: 12/18/20 Status: Ordered traMADol 50 mg oral tablet 50 mg = 1 tab(s), Oral, q6hr, PRN PRN for pain, # 10 tab(s), 0 Refill(s), [facility]: [facility] #[id number], 1 tab(s) Oral q6hr,PRN:for pain, 164, cm, 01/17/22 19:35:00 EDT, Height/Length Dosing, 77.11, kg, 01/17/22 19:35:00 EDT, Weight Dosing Start Date: 03/16/22 Status: Ordered tranexamic acid 650 mg oral tablet 1,300 mg = 2 tab(s), Oral, TID, start with onset of bleeding. Take as directed until the bleeding stops for a maximum of 5 days during monthly menstruation, # 30 tab(s), 2 Refill(s), [facility]: [facility] #[id number], 2 tab(s) Oral TID,x5 day(s),Instr:st... Start Date: 03/16/22 Stop Date: 03/31/22 Status: Ordered traZODone 100 mg oral tablet 100 mg = 1 tab(s), Oral, Daily, 0 Refill(s) Start Date: 09/27/20 Status: Ordered Problem List Condition Confirmation Course Effective Dates [...] Range]: 1 Peripheral Pulse Rate [60-100 bpm] 62 bp m (03/16/22 10:15 AM) Blood Pressure [90-140/60-90 mmHg] 90/50 mmHg (03/16/22 10:15 AM) SpO2 [92-100 %] 100 % (03/16/22 10:15 AM) Weight 74.39 kg (03/16/22 10:15 AM) Weight Measured (lbs) 164.002 lb (03/16/22 10:15 AM) Social History Social History Type Response Smoking Status Never (less than 100 in lifetime) entered on: 07/13/21 Sex Primary care Note * ERIN POWER MD: PERFORM, MODIFY, MODIFY Event Display: Office/Clinic Note Authored Date: [id number] MICHELLE PAYAN :2000 Age:22 years Sex:Female Visit Date:03/16/2022 Primary Care Physician: RICARDO RUTH Chief Complaint Abnormal bleeding and pain History of Present Illness Michelle is a 22 a yo P0 who presents to f/u with regard to pelvic pain and abnormal bleeding.?? She was last seen 02/09/22. At that time she was continued on daily NE (10 mg)??given TXA to take with acute episodes of heavy bleeding and referred to Oncology for consultation. She says that she was hospitalized at [facility] for bleeding.?? She declines transfusion at this time. ?? She was recently seen in ED 03/07/22 in [place]- Reports indicate a H/H- 30.7/9.3? She returned on 03/11- and was hospitalized overnight, requiring a transfusion- received 2uPRBC??she is working at [place]. ?? Last night she was in ED at [facility] and [place]- received IV TXA. bleeding heavily but CBC was stable- 7.8 (down from 9.5 per patient)- she was grocery stopping in the area- record not available She reports no bleeding now, but is tired and having uterine cramping. ?? 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 Today she reports that she is spotting and doesn't feel well. ?? She has a complicated hx of pain and bleeding and has sought care at multiple hospitals in the region (see notes below). ?? She was last seen here via telehealth 08/02.??Since that time she has had several surgeries and hospitalizations. ?? -Concerned about ongoing pain- almost daily- can only take Tylenol and Gabapentin (does not work)??and ongoing bleeding.?? Reports allergy to NSAIDS- with hives -She was told to find someone to do a hysterectomy but expresses a desire for fertility.?? -She is currently sexually active with her fiance and does not use a contraception other than NE suppression- she would like to conceive if possible but is concerned about heavy menstrual bleeding ifnot suppressed with DEBORA or Progesterone -No prior attempts at - would like to become - ?? She reports these additional issues:?? *Abnormal bleeding.?? - She is on daily??Norethindrone(10 mg).?? She increases dose with extra dose with bleeding.? -She has been hospitalized 3x at?? [facility] for management of heavy bleeding and required transfusion.?? -She had an episode of vaginal lacerations following a transvaginal U/S at [place]- which resulted in hospitalization x 3 days with??2 trips to OR for repair and transfusion of 3uPRBCstate s -she gives a dx of VWB disorder, but I can not find this dx in chart and she has not had bleeding associated with her prior surgeries.?? I am unable to locate the hematology consult in [facility] records ?? Previous treatment for pain: - LUPRON at [facility]- depressions and suicidal thoughts. -Orilissa- stopped after 4 months- worsened her borderline personality, good pain control -Nexplanon- removed- can't remember why by did not like it- probably depression -Mirena IUD- removed secondary to malposition after 2 years (from records)-only present x 1 month -2 laparoscopies with a??surgeon?? in [place] 2020?? - and has been seen at [facility] as summarized below.?? She states that they told her to f/u with her regular OB ?? She??has a long history of pelvic pain and surgery: *2018: ([facility]) S/P??laparoscopy with drainage of endometrioma.??- op note does not document significant endometriosis *S/P appendectomy 11/2019??(normal appendix)??.??Evaluation included: pelvic u/s and CT.?? *03/2020: S/P??Laparoscopic excision of mild endometriosis -Stage I??based upon volume ?At the time of surgery: normal pelvic organs??scant amount of superficial hemosiderin staining on the right ovary. No adhesions or deep endometriosis involved either ovary. There were clear blebs, red lesions and vascular lesions in both the anterior and posterior cul-de-sac. More deeply infiltr ating??endometriosis with scarring was noted on the right uterosacral ligament and in the left ovarian fossa. All areas were excised. Areas along the right ovarian fossa that could not be excised were ablated with cautery. Adhesions around the cecum which per vented mobility and caused adherence toanterior and right omental peritoneum were removed. *08/02- [place]: laparoscopy- Endometriosis- Dr. Hayes?? (no records available) *04/04- recurrent pain: laparoscopy- decreased endo per report ??-?? Most recent: 10/25-: Hospitalized at [facility] for flare of pain ? Transvaginal u/s resulted in vaginal tear- OR x 2 for repair and heavy bleeding (3sites noted: fornix, anterior and post vaginal tears. ? Hysteroscopy- normal, transfusion x 2 uPRBC 11/01/21: Hospitalized at [facility] for recurrent vaginal bleeding- ? OR x 1- excision and repair of posterior laceration, transfused x 1 uPRBC Multiple trips to ED for bleeding and pain Physical Exam Vitals & Measurements HR:??62??(Peripheral)?? BP:??90/50?? SpO2:??100%?? WT:??74.39??kg?? General:?? pale uncomfortable??appearing woman, Genitourinary:?? -External Genitalia :??no lesions or rashes? -Vagina : normal vault, no abnormal discharge, no??lesions, no masses ? -Urethral Meatus : no masses ? -Bladder : nontender ? -Cervix :??no lesions, nontender, no abnormal discharge, no bleeding ? -Uterus : , no masses, anteflexed, normal size,??mobile ? -Adnexa : diffusely tender, no masses Procedure Transvaginal images are obtained (see separate report) Uterus:?? 6.5 x_4.8 cm ?? Cervix: normal Endometrial stripe:?? 2.4 mm? very thin ?? Right Ovary: normal 1.5 x 1.26 Left Ovary: not visualized Cul-de-sac:?? no fluid Assessment/Plan Anemia due to blood loss??D50.0 Have discussed the case with Viviana Melgar who agrees to see her today to begin her coagulopathyevaluation Menorrhagia with irregular cycle??N92.1 22 yo with recurrent menorrhagia and anemia requiring frequent hospitalization and transfusion. Uncertain etiology. She is currently suppressed with NE, and declines Mirena IUD placement.?? In the past DEBORA have beenassociated with suicidal thoughts- she is willing to try some now-given the thinness of the lining of her uterus some estrogen may be useful in??controlling??her bleeding. She was carefully instructed that if suicidal thoughts return then??she should stop the control pill immediately and resume the norethindrone 10 mg twice daily She would return for an IUD repeat placement in that situation. She has previously??asked to be considered for hysterectomy. ??Given the??worsening and chronic nature both of her pain and bleeding this may need to be reconsidered however??she had hoped to have a family??and I think it is worth it to consider all options prior to??performing definitive surgery. ?? She was seen at Hematology and labs ordered.?? They will arrange f/u for further evaluation of bleeding disorder and referral to the??coagulation clinic at [facility] ?? Plan 1. DEBORA: ordered with drospirenone since she has not tired this pill,? if she stops- resume NE 10 mg daily 2. TXA 1300 TID up to 5 days with bleeding~ stop DEBORA or NE when taking TXA 3. Consider Mirena IUD for menstrual suppression-if unable to tolerate DEBORA or recurrent bleeding 4. Zofran for nausea 5. Tramadol # 10 for pain 6.?? F/U for bleeding evaluation per hematology Problem List/Past Medical History Ongoing Abdominal pain due to injury Adenomyosis Asthma Endometriosis Historical Ovarian torsion Procedure/Surgical History ???Repair of vaginal vault tear (11/01/2021)???Repair of vaginal vault tear (10/25/2021)???Laparoscopic ablation of pelvic endometriosis (03/2021)???Laparoscopic excision of pelvic endometriosis (02/13)???Cystoscopy (08/26/2020)???Laparoscopic ablation of pelvic endometriosis (08/2020)???Laparoscopic excision of pelvic endometriosis (03/17/2020)? ?Laparoscopic appendectomy (11/2019)? ?D&C - Dilatation and curettage (06/2018)???Laparoscopy with aspiration (01/2018)???Appendectomy Medications Benadryl 25 mg oral capsule, 25 mg= 1 cap(s), Oral, Daily Colace, Oral, BID gabapentin 300 mg oral capsule, 300 mg= 1 cap(s), Oral, Once a day (at bedtime) hydrOXYzine pamoate 100 mg oral capsule, 100 mg= 1 cap(s), Oral, Daily, PRN hydrOXYzine pamoate 50 mg oral capsule, 50 mg= 1 cap(s), Oral, QID, PRN MiraLax, 17 gm= 1 packet(s), Oral, Daily montelukast 4 mg oral granule, Oral, Daily norethindrone 5 mg oral tablet, 10 mg= 2 tab(s), Oral, Daily, 3 refills omeprazole, Oral, Daily ondansetron 4 mg oral tablet, disintegrating, 4 mg= 1 tab(s), Oral, q8hr, PRN ProAir HFA, INH, q6hr Protonix 40 mg oral delayed release tablet, 40 mg= 1 tab(s), Oral, Daily sertraline 100 mg oral tablet, Oral, Daily tiZANidine 4 mg oral tablet, See Instructions tranexamic acid 650 mg oral tablet, 1300 mg= 2 tab(s), Oral, TID, 2 refills traZODone 100 mg oral tablet, 100 mg= 1 tab(s), Oral, Daily Zofran ODT 4 mg oral tablet, disintegrating, 4 mg= 1 tab(s), Oral, q8hr, PRN Allergies Haldol droperidol Compazine??(Edema) Latex??(Itching) Toradol??(Nausea) penicillins??(Edema, Hives) Social History Alcohol Current, 1-2 times per year Electronic Cigarette/Vaping Electronic Cigarette Use: Former use, quit more than 90 days ago. Type: Cannabinoid infused, Nicotine infused. 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 Exercise Exercise frequency: Daily. Exercise type: Walking. Home/Environment Lives with Grandfather.. Living situation Home/Independent. Nutrition/Health Regular Sexual Sexually active: Yes. Number of current partners 1. Sexual orientation: Straight or heterosexual. Uses condoms: No. Identifies as female Gender Identity:. Substance Abuse Current, Marijuana Tobacco Never (less than 100 in lifetime) Tobacco Use:. Family History Cancer: Mother. Cervical cancer: Grandmother (Maternal). Diabetes mellitus type 2: Grandfather (Paternal). Heart Disease: Father and Grandfather (Paternal). [Electronically Signed on: 03/16/2022 11:40 EDT] ERIN POWER MD, MD [Electronically Signed on: 03/16/2022 14:26 EDT] ERIN POWER MD, MD [Electronically Signed on: 03/16/2022 18:06 EDT] ERIN POWER MD, MD [Verified on: 03/16/2022 11:40 EDT] ERIN POWER MD, MD Patient Care team information Personnel Name: SALVADORTOMI SIMENTALY Address: Address: [address] [address]
--- OUTSIDE RECORDS SUMMARY | 2022-11-20 17:52 | XMS_ITS | Continuity of Care Document ---
Author Name Unknown Organization [facility] Address [address] [place] [id number]- Care Team Providers Care Gantry Rigger Name Role Phone Non-Staff, Physician Primary Care Physician Unav ailable Encounter [facility] [id number] Date(s): 04/16/20 - 04/16/[address] [address]- Encounter Diagnosis Encounter for screening examination for sexually transmitted disease(Discharge Diagnosis) - 04/16/20 Discharge Disposition: Home Attending Physician: ERIN POWER MD Admitting Physician: ERIN POWER MD Allergies, Adverse Reactions, Alerts Substance Reaction Severity Status Latex Itching Active penicillins Edema Hives Active Compazine Edema Active Toradol Nausea Active Medications busPIRone 10 mg oral tablet mg tab(s), Oral, BID, 0 Refill(s) Start Date: 04/16/20 Status: Ordered ibuprofen 800 mg, 0 Refill(s) Start Date: 03/04/20 Status: Ordered norethindrone 5 mg oral tablet 10 mg = 2 tab(s), Oral, Daily, # 180 tab(s), 0 Refill(s) Start Date: 02/18/20 Status: Ordered Orilissa 150 mg oral tablet 150 mg = 1 tab(s), Oral, Daily, # 30 tab(s), 11 Refill(s), Pharmacy: [id number], 1tab(s) Oral Daily Start Date: 02/19/20 Status: Ordered Phenergan 25 mg rectal suppository 25 mg = 1 supp, Per rectum, q8hr, # 21 supp, 0 Refill(s), Pharmacy: [facility] [place] [address], 1 supp Per rectum q8hr Start Date: 03/04/20 Status: Ordered Protonix 40 mg oral delayed release tablet 40 mg = 1 tab(s), Oral, Daily, # 15 tab(s), 0 Refill(s), Pharmacy: [facility], 1tab(s) Oral Daily Start Date: 03/26/20 Status: Ordered Zofran ODT 4 mg oral tablet, disintegrating 4 mg = 1 tab(s), Oral, q8hr, PRN PRN Nausea/Vomiting, # 30 tab(s), 0 Refill(s), Pharmacy: [id number], 1 tab(s) Oral q8hr,PRN:Nausea/Vomiting Start Date: 02/27/20 Status: Ordered Problem List Condition Effective Dates Status Health Status Inform ant Asthma(Confirmed) Active Endometriosis(Confirmed) Active Procedures Procedure Date Related Diagnosis Body Site Status Laparoscopic excision of pel makenzie endometriosis 1 03/17/20 Completed Laparoscopic appendectomy 2 11/2019 Completed D&C - Dilatation and curettage 3 06/2018 Completed Laparoscopy with aspiration 4 01/2018 Completed 1mild endometriosis otherwise normal anatomy 2noted to have endometriosis on appendix 3menorrhagia 4aspiration of endometrioma Results Laboratory List Name Date Chlam/GC/TV (Chlam/GC/TV - Female Anatom y) 04/16/20 Most recent to oldest [Reference Range]: 1 Neisseria gonorrhoeae [Negative] Negativ e (04/16/20 1:31 PM) T. Vaginalis [Negative] Negative (04/16/20 1:31 PM) Chlamydia trachomatis [Negative] Negativ e (04/16/20 1:31 PM) Social History Social History Type Response Smoking Status Never (less than 100 in lifetime) entered on: 02/18/20 Sex
--- OUTSIDE RECORDS SUMMARY | 2022-11-20 17:52 | XMS_ITS | Continuity of Care Document ---
Author Name Unknown Organization [facility] Address [address] [place] [address]- Care Team Providers Care Driver Guard Name Role Phone Non-Staff, Physician Primary Care Physician Unav ailable Encounter [facility] [id number] Date(s): 03/26/20 - 03/26/[address] [address]- Encounter Diagnosis Nausea & vomiting(Discharge Diagnosis) - 03/26/20 Finding of abdominopelvic region of torso(Discharge Diagnosis) - 03/26/20 Discharge Disposition: Home or Self Care Attending Physician: BLANE STARK Admitting Physician: BLANE STARK Allergies, Adverse Reactions, Alerts Substance Reaction Severity Status Latex Itching Active penicillins Edema Hives Active Compazine Edema Active Toradol Nausea Active Assessment and Plan Extracted from: Title:General Medical Problem *ED Author:Carl STARK Date:03/26/20 History of Present Illness 20-year-old female who underwent laparoscopy for endometriosis on 03/17/2020 returning for her second postoperative visit complaining of nausea, vomiting, and persistent abdominopelvic pain. She states she feels cold and sweaty. She has not had fever postoperatively. She states that her oral intake is reduced and her urination reduced as a consequence. Bowel movements have improved with increased MiraLAX and Dulcolax. When seen here 5 days ago on postop day [address] scan of abdomen and pelvis which was entirely consistent with post laparoscopic retained insufflation air and normal anatomy otherwise. There is a discussion between the patient and the [employer] clinicians which has been reviewed.. Review of Systems Constitutional symptoms: Negative except [...] Per rectum, q8hr, 21 supp, 0 Refill(s) Zofran ODT 4 mg oral tablet, disintegratin mg = 1 tab(s), Oral, q8hr, PRN: Nausea/Vomiting, 30 tab(s), 0 Refill(s) Documented Medications Documented Zofran ODT 4 mg oral tablet, disintegratin mg = 1 tab(s), Oral, q8hr, PRN: Nausea/Vomiting, 0 Refill(s) ibuprofen: 800 mg, 0 Refill(s) norethindrone 5 mg oral tablet: 10 mg = 2 tab(s), Oral, Daily, 180 tab(s), 0 Refill(s). Past Medical/ Family/ Social History Medical history: No active or resolved past medical history items have been selected or recorded.. Surgical history: Laparoscopic appendectomy ([id number]) in the month of 11/2019 at 19 Years. Comments: 03/04/2020 23:03 ERIN XIONG MD noted to have endometriosis on appendix D&C - Dilatation and curettage ([id number]) in the month of 06/2018 at 18 Years. Comments: 02/20/2020 10:14 ERIN XIONG MD menorrhagia Laparoscopy with aspiration ([id number]) in the month of 01/2018 at 18 Years. Comments: 02/20/2020 10:14 ERIN XIONG MD aspiration of endometrioma. Family history: Diabetes mellitus type 2 Grandfather (Paternal) Cervical cancer Grandmother (Maternal) Cancer Mother Comments: 03/04/2020 13:15 Natalie Rodarte LPN Possibly breast ? per pt. Heart Disease Father Grandfather (Paternal) . Social history: Social & Psychosocial History Social History Alcohol Current, 1-2 times per week Employment/School Unemployed, Work/School description: [employer]. Exercise Exercise frequency: Daily. Exercise type: Walking. [...] Problems (2) Asthma Endometriosis . Physical Examination Additional physical exam information: Alert, well-developed, well-nourished, well-hydrated. Vital signs reviewed. Afebrile. Mildly tachypneic. Normotensive and eucardic. Skin: [place], warm, dry. COR: Heart rate and rhythm regular, no murmur, click, gallop, or rub. Chest: Clear. Abdomen: Bowel sounds present and normally active throughout. Soft with diffuse tenderness greater in the lower quadrants than in the upper quadrants. No mass, organomegaly, or rebound. . Medical Decision Making Notes: Upon completion of the initial interview and examination the patient requested something for pain. She took Tylenol and a large dose of ibuprofen 3 hours ago. She was informed that we would be happy to provide her with nonopiate pain medications, however there is no reason to believe that a different anti-inflammatory would be effective 3 hours after 800 mg of ibuprofen. Since the patient's primary complaint is nausea and vomiting, and since she did not have improvement with Zofran or Phenergan at home, Reglan 10 mg was administered IV along with Benadryl 25 mg. Patient continued to ask for additional medicine for pain. At 1740 a discussion was held with Dr. Mc of gynecology. Dr. Mc is in agreement with me that opiates are not the solution to this, and her opinion was that it is unlikely that this amount of discomfort is coming from endometriosis. The possibility of a gastroenterologic source was suggested, and the patient has been referred to gastroenterology in [place]. On this basis Protonix 40 mg was administered IV. At 1810 hrs. I was informed that the patient wants to leave. Discussion was held with the patient and 1830 hrs. she seemed to have some improvement with the Reglan and Protonix combination. She will be kept on this combination pending follow-up with gastroenterology, [employer], and primary care.. Impression and Plan Diagnosis Nausea & vomiting ([id number] R11.2, Discharge, Medical) Finding of abdominopelvic region of torso (QHN18-ZJ R19.8, Discharge, Medical) Complaint of Pain in pelvis (PNED [id number], Reason For Visit, Medical) Complaint of Vomiting (PNED [id number], Reason For Visit, Medical) Complaint of Chills (PNED [id number], Reason For Visit, Medical) Nausea & vomiting (GOL34-VA R11.2, Discharge, Medical) Finding of abdominopelvic region of torso ([id number]-DJ R19.8, Discharge, Medical) Plan Disposition: Discharged: Time 03/26/2020 18:47:00, to home. Prescriptions: Launch prescriptions Pharmacy: Reglan 10 mg oral tablet (Prescribe): 10 mg = 1 tab(s), Oral, QIDACHS, for 10 day(s), 40 tab(s), 0 Refill(s). Patient was given the following educational materials: AA Blank Template (Custom), AA Blank Template (Custom). Follow up with: ; Follow-up with primary care within the next few days. Gynecology on schedule, gastroenterology on schedule. Within 1 to 2 days. Counseled: Patient. Future Appointments Functional Status 03/26/20 COVID-19 Screening None Medications ibuprofen 800 mg, 0 Refill(s) Start Date: 03/04/20 Status: Ordered norethindrone 5 mg oral tablet 10 mg = 2 tab(s), Oral, Daily, # 180 tab(s), 0 Refill(s) Start Date: 02/18/20 Status: Ordered Orilissa 150 mg oral tablet 150 mg = 1 tab(s), Oral, Daily, # 30 tab(s), 11 Refill(s), Pharmacy: [id number], 1tab(s) Oral Daily Start Date: 02/19/20 Status: Ordered Phenergan 25 mg rectal suppository 25 mg = 1 supp, Per rectum, q8hr, # 21 supp, 0 Refill(s), Pharmacy: [facility], 1 supp Per rectum q8hr Start Date: 03/04/20 Status: Ordered Protonix 40 mg oral delayed release tablet 40 mg = 1 tab(s), Oral, Daily, # 15 tab(s), 0 Refill(s), Pharmacy: [facility] [place] [facility], 1tab(s) Oral Daily Start Date: 03/26/20 Status: Ordered Reglan 10 mg oral tablet 10 mg = 1 tab(s), Oral, QIDACHS, X 10 day(s), # 40 tab(s), 0 Refill(s), 04/05/20, Pharmacy: [facility] [place] [facility], 1 tab(s) Oral QIDACHS,x10 day(s) Start Date: 03/26/20 Stop Date: 04/05/20 Status: Ordered Zofran ODT 4 mg oral tablet, disintegrating 4 mg = 1 tab(s), Oral, q8hr, PRN PRN Nausea/Vomiting, 0 Refill(s) Start Date: 03/17/20 Status: Ordered Zofran ODT 4 mg oral tablet, disintegrating 4 mg = 1 tab(s), Oral, q8hr, PRN PRN Nausea/Vomiting, # 30 tab(s), 0 Refill(s), Pharmacy: [id number], 1 tab(s) Oral q8hr,PRN:Nausea/Vomiting Start Date: 02/27/20 Status: Ordered Mental Status 03/26/20 Level of Consciousness Alert Problem List Condition Effective Dates Status Health Status Inform ant Asthma(Confirmed) Active Endometriosis(Confirmed) Active Procedures Procedure Date Related Diagnosis Body Site Status Laparoscopic appendectomy 11/2019 Completed D&C - Dilatation and curettage 2 06/2018 Completed Laparoscopy with aspiration 3 01/2018 Completed 1noted to have endometriosis on appendix 2menorrhagia 3aspiration of endometrioma Results Laboratory List Name Date Amylase Level 03/26/20 Automated Differential Standard 03/26/20 CBC w/Diff Standard 03/26/20 Comprehensive Metabolic Panel Standard ( CMP Standard) 03/26/20 Lipase Level 03/26/20 Test Serum Standard 03/26/20 Most recent to oldest [Reference Range]: 1 NRBC Auto Pct [0.00-0.20 %] 0.00 % (03/26/20 5:12 PM) Creatinine [0.50-0.90 mg/dL] 0.76 mg/dL (03/26/20 5:12 PM) AGAP [10.0-18.0 mmol/L] 15.6 mmol/L (03/26/20 5:12 PM) Glucose Lvl [70-100 mg/dL] 93 mg/dL (03/26/20 5:12 PM) Hct [34.1-44.9 %] 39.0 % (03/26/20 5:12 PM) Hgb [11.5-15.7 gm/dL] 12.3 gm/dL (03/26/20 5:12 PM) Lipase Lvl [13-60 IntUnit/L] 43 IntUnit/ L (03/26/20 5:12 PM) Lymph Auto [15.0-45.0 %] 36.7 % (03/26/20 5:12 PM) MCH [25.6-32.2 pg] 24.3 pg *LOW* (03/26/20 5:12 PM) MCHC [32.3-36.5 gm/dL] 31.5 gm/dL *LOW* (03/26/20 5:12 PM) MCV [79.4-94.8 fL] 77.1 fL *LOW* (03/26/20 5:12 PM) Bell Auto [4.0-14.0 %] 5.4 % (03/26/20 5:12 PM) MPV [9.4-12.4 fL] 11.3 fL (03/26/20 5:12 PM) Neutro Auto [50.0-75.0 %] 54.8 % (03/26/20 5:12 PM) Osmolality [268.0-291.0 mOsm/kg] 271.1 m Osm/kg (03/26/20 5:12 PM) Platelet [150-400 x10(3)/uL] 328 x10(3)/ uL (03/26/20 5:12 PM) RBC [3.93-5.22 x10(6)/uL] 5.06 x10(6)/uL (03/26/20 5:12 PM) Sodium Lvl [136-145 mmol/L] 137 mmol/L (03/26/20 5:12 PM) Total Protein [6.6-8.7 gm/dL] 8.3 gm/dL (03/26/20 5:12 PM) Albumin Lvl [3.50-5.20 gm/dL] 5.10 gm/dL (03/26/20 5:12 PM) Alk Phos [35-105 IntUnit/L] 57 IntUnit/L (03/26/20 5:12 PM) ALT [0-33 IntUnit/L] 20 IntUnit/L (03/26/20 5:12 PM) Amylase Lvl [28-100 IntUnit/L] 129 IntUn it/L *HI* (03/26/20 5:12 PM) AST [0-32 IntUnit/L] 20 IntUnit/L (03/26/20 5:12 PM) Basophil Auto [0.0-2.0 %] 1.2 % (03/26/20 5:12 PM) Bili Total [0.0-1.3 mg/dL] 0.2 mg/dL (03/26/20 5:12 PM) CO2 [22-29 mmol/L] 23 mmol/L (03/26/20 5:12 PM) Eos Auto [0.0-8.0 %] 1.7 % (03/26/20 5:12 PM) WBC [4.0-10.0 x10(3)/uL] 6.0 x10(3)/uL (03/26/20 5:12 PM) BUN [6-23 mg/dL] 6 mg/dL (03/26/20 5:12 PM) Calcium Lvl [8.6-10.2 mg/dL] 10.2 mg/dL (03/26/20 5:12 PM) Chloride [98-107 mmol/L] 102 mmol/L (03/26/20 5:12 PM) Potassium Lvl [3.5-5.1 mmol/L] 3.6 mmol/ L (03/26/20 5:12 PM) Lymph Absolute [1.20-3.70 x10(3)/uL] 2.1 9 x10(3)/uL (03/26/20 5:12 PM) Bell Absolute [0.20-0.40 x10(3)/uL] 0.32 x10(3)/uL (03/26/20 5:12 PM) Eos Absolute [0.04-0.54 x10(3)/uL] 0.10 x10(3)/uL (03/26/20 5:12 PM) NRBC Absolute [0.00-0.01 x10(3)/uL] 0.00 x10(3)/uL (03/26/20 5:12 PM) Neutro Absolute [1.56-6.13 x10(3)/uL] 3. 28 x10(3)/uL (03/26/20 5:12 PM) RDW-CV [11.7-14.4 %] 12.8 % (03/26/20 5:12 PM) GFR >60 mL/min/1.73 m2 *NA* (03/26/20 5:12 PM) GFR NonAfrican [place] >60 mL/min/1.73 m2 *NA* (03/26/20 5:12 PM) Immature Gran % [0.00-2.30 %] 0.20 % (03/26/20 5:12 PM) Immature Gran Absolute 0.01 x10(3)/uL *NA* (03/26/20 5:12 PM) HCG Qualitative Serum [Negative] Negativ e (03/26/20 5:12 PM) Basophil Absolute [0.00-0.10 x10(3)/uL] 0.07 x10(3)/uL (03/26/20 5:12 PM) Vital Signs Most recent to oldest [Reference Range]: 1 2 3 Temperature Temporal [36.3-37.8 DegC] 36.4 DegC (03/26/20 4:54 PM) Peripheral Pulse Rate [60-100 bpm] 99 bpm (03/26/20 6:27 PM) 87 bpm (03/26/20 5:30 PM) 73 bpm (03/26/20 5:15 PM) Respiratory Rate [14-20 br/min] 22 br/min *HI* (03/26/20 4:54 PM) Blood Pressure [90-140/60-90 mmHg] 128/73mmHg (03/26/20 6:27 PM) 126/79mmHg (03/26/20 5:30 PM) 124/88mmHg (03/26/20 5:15 PM) Mean Arterial Pressure Cuff-Monitor 88 mmHg (03/26/20 6:27 PM) 91 mmHg (03/26/20 5:30 PM) 95 mmHg (03/26/20 5:15 PM) SpO2 [92-100 %] 98 % (03/26/20 6:27 PM) 95 % (03/26/20 5:30 PM) 98 % (03/26/20 5:15 PM) Height/Length Estimated 162.000 cm (03/26/20 4:54 PM) Height/Length Dosing 162.000 cm (03/26/20 4:59 PM) Weight Estimated 72.000 kg (03/26/20 4:54 PM) Weight Dosing 72.000 kg (03/26/20 4:59 PM) Social History Social History Type Response Smoking Status Never (less than 100 in lifetime) entered on: 02/18/20 Sex Hospital Discharge Instructions Patient Education 03/26/2020 18:54:39 AA Blank Template (Custom) Stop the use of ibuprofen, Aleve, or other anti-inflammatory agents. Drink as much fluid as possible. Reglan 10 mg before meals and at bedtime. Discontinue the use of Phenergan while using this product. Protonix 40 mg once daily in the morning. Tylenol 500 mg, take 2 every 6 hours as needed for pain. Continue the use of MiraLAX and Dulcolax for constipation. Follow-up on schedule for gastroenterology review, and follow-up with gynecology on schedule. Primary care follow-up within the next few days may be helpful. Follow Up Care 03/26/2020 16:38:41 With:Follow-up with primary care within the next few days. Gynecology on schedule, gastroenterology on schedule. Address:Unknown When:1 to 2 days
--- OUTSIDE RECORDS SUMMARY | 2022-11-20 17:52 | XMS_ITS | Continuity of Care Document ---
Author Name Unknown Organization [facility] Address [address] [place] [address]- Care Team Providers Care Radiological Technician Name Role Phone RICARDO RUTH Primary Care Physician [phone] Encounter BVT Date(s): 05/03/21 - 05/04/[address] [id number] [phone] Encounter Diagnosis Abdominal pain in female(Discharge Diagnosis) - 05/04/21 Abnormal bruising(Discharge Diagnosis) - 05/04/21 Discharge Disposition: Home or Self Care Attending Physician: TAMIE DUNCAN Admitting Physician: TAMIE DUNCAN Allergies, Adverse Reactions, Alerts Substance Reaction Severity Status Latex Itching Active penicillins Edema Hives Active Haldol Moderate Active Compazine Edema Active Toradol Nausea Active Assessment and Plan Extracted from: Title:General Medical Problem *ED Author:TAMIE DUNCAN Date:05/03/21 History of Present Illness 21-year-old woman with history of endometriosis presents with about 1 week of abdominal pain and nausea with vomiting. Pain is described as a sharp cramping seen mostly on the left side at about the level of the umbilicus. This is been associated with spontaneous bruising along the left lower quadrant, some in the left subcostal region and some in the right lower quadrant. The left lower quadrant is tender. She has not had bruising outside of the abdomen, denies gingival bleeding, epistaxis, melena or hematemesis. She has not had fever or dysuria. She does occasionally have blood in her urine which is not a new finding for her. She took a home test today that was reportedly negative. She was evaluated in the emergency department at [facility] and admitted overnight and then discharged. She was evaluated again in [place] in the emergency department and discharged. She spoke to her providers here and was referred for a third emergency department evaluation due to progression of bruising. Pain is constant, not similar to her endometriosis pain, not relieved by acetaminophen and ibuprofen, it is made worse by eating, moving and palpation. She describes 3 episodes of emesis today. She denies chest pain, shortness of breath, lightheadedness and syncope. She does not smoke, drinks alcohol approximately once a month, uses marijuana. Review of Systems Constitutional symptoms: No fever, Skin symptoms: Bruises, No petechiae, Respiratory symptoms: No shortness of breath, Cardiovascular symptoms: No chest pain, Gastrointestinal symptoms: Abdominal pain, left lower quadrant, sharp, cramping, nausea, vomiting, No rectal bleeding, Musculoskeletal symptoms: No back pain, Neurologic symptoms: No dizziness, no altered level of consciousness. Additional review of systems information: All other systems reviewed and otherwise negative. Health Status Allergies: Allergic Reactions (All) Moderate Haldol- No reactions were documented. Severity Not Documented Compazine- Edema. Latex- Itching. Penicillins- Edema and hives. Toradol- Nausea.. Medications: (Selected) Prescriptions Prescribed Diflucan 150 mg oral tablet: 150 mg = 1 tab(s), Oral, Once, 1 tab(s), 0 Refill(s) MetroGel-Vaginal 0.75% vaginal gel with applicator: 1 marta, VAG, Once a day (at bedtime), for 5 day(s), 70 gm, 0 Refill(s) MetroGel-Vaginal 0.75% vaginal gel with applicator: 1 marta, VAG, Once, 70 gm, 0 Refill(s) Protonix 40 mg oral delayed release tablet: 40 mg = 1 tab(s), Oral, Daily, 15 tab(s), 0 Refill(s) Zofran ODT 4 mg oral tablet, disintegratin mg = 1 tab(s), Oral, q8hr, PRN: Nausea/Vomiting, 30 tab(s), 0 Refill(s) norethindrone 5 mg oral tablet: 10 mg = 2 tab(s), Oral, Daily, for 30 day(s), 60 tab(s), 3 Refill(s) Documented Medications Documented Benadryl 25 mg oral capsule: 25 mg = 1 cap(s), Oral, Daily, 0 Refill(s) Colace: Oral, BID, 0 Refill(s) MiraLax: 17 gm = 1 packet(s), Oral, Daily, 0 Refill(s) ProAir HFA: INH, q6hr, 0 Refill(s) gabapentin 300 mg oral capsule: 300 mg = 1 cap(s), Oral, Once a day (at bedtime), 30 cap(s), 0 Refill(s) hydrOXYzine pamoate 100 mg oral capsule: 100 mg = 1 cap(s), Oral, Daily, PRN: for anxiety, 40 cap(s), 0 Refill(s) hydrOXYzine pamoate 50 mg oral capsule: 50 mg = 1 cap(s), Oral, QID, PRN: for anxiety, 40 cap(s), 0 Refill(s) ibuprofen: 800 mg, 0 Refill(s) montelukast 4 mg oral granule: mg = EA, Oral, Daily, 0 Refill(s) omeprazole: Oral, Daily, 0 Refill(s) [...] Surgical history: Laparoscopic excision of pelvic endometriosis ([id number]) on 03/17/2020 at 20 Years. Comments: 04/16/2020 13:50 ERIN VERMA MD mild endometriosis otherwise normal anatomy Laparoscopic appendectomy ([id number]) in the month of 11/2019 at 19 Years. Comments: 03/04/2020 23:03 ERIN XIONG MD noted to have endometriosis on appendix D&C - Dilatation and curettage ([id number]) in the month of 06/2018 at 18 Years. Comments: 02/20/2020 10:14 ERIN XIONG MD menorrhagia Laparoscopy with aspiration ([id number]) in the month of 01/2018 at 18 Years. Comments: 02/20/2020 10:14 ERIN XIONG MD aspiration of endometrioma. Family history: Diabetes mellitus type 2 Grandfather (Paternal) Cervical cancer Grandmother (Maternal) Cancer Mother Comments: 03/04/2020 13:15 Natalie Rodarte LPN Possibly breast ? per pt. Heart Disease Father Grandfather (Paternal) . 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 Exercise Exercise frequency: Daily. Exercise type: Walking. [...] has been recorded. Problem list: Active Problems (3) Abdominal pain due to injury Asthma Endometriosis . Physical Examination Vital Signs Vital Signs 05/03/2021 22:36 EST Temperature Temporal 36.7 DegC Peripheral Pulse Rate 71 bpm Respiratory Rate 16 br/min Systolic Blood Pressure 116 mmHg Diastolic Blood Pressure 76 mmHg SpO2 96 % . Measurements 05/03/2021 22:43 EST Weight Dosing 86.180 kg 05/03/2021 22:43 EST Height/Length Dosing 164.000 cm 05/03/2021 22:36 EST Height/Length Estimated 164.000 cm Weight Estimated 86.180 kg . Basic Oxygen Information 05/03/2021 22:36 EST Oxygen Therapy Room air . General: Alert, no acute distress. Skin: Warm. Head: Normocephalic. Eye: Pupils are equal, round and reactive to light. Cardiovascular: Regular rate and rhythm. Respiratory: Lungs are clear to auscultation. Gastrointestinal: Soft, There are nonpalpable areas of ecchymosis in various stages of fading most predominantly along the left lower quadrant, but also some in the right lower quadrant and a small area subcostally on the left. She is tender without guarding or rebound in the left mid and lower abdomen.. Musculoskeletal: Normal ROM. Neurological: Alert and oriented to person, place, time, and situation. Psychiatric: Cooperative, appropriate mood & affect. Medical Decision Making Results review: Lab results : Lab View 05/04/2021 0:33 EST UA Color ORANGE UA Clarity CLOUDY UA Spec Grav 1.020 UA Bili SMALL UA pH 7.5 UA Urobilinogen 1.0 UA Blood Large UA Glucose NEGATIVE UA Ketones TRACE UA Protein 30 mg/dL UA Nitrite NEGATIVE UA Leuk Est NEGATIVE Urine Culture? No Micro? Indicated UA WBC 0-2 UA RBC 20-30 UA Mucous Slight UA Bacteria Rare UA Amorph Urate Identified UA Squam Epi Moderate 05/03/2021 23:26 EST WBC 6.4 x10(3)/uL RBC 4.80 x10(6)/uL Hgb 12.1 gm/dL Hct 38.0 % MCV 79.2 fL LOW MCH 25.2 pg LOW MCHC 31.8 gm/dL LOW RDW-CV 15.7 % HI Platelet 199 x10(3)/uL MPV 10.1 fL Neutro Auto 54.8 % Lymph Auto 35.9 % [place] Auto 5.8 % Eos Auto 2.3 % Basophil Auto 0.9 % Immature Gran % 0.30 % NRBC Auto Pct 0.00 % Neutro Absolute 3.51 x10(3)/uL Lymph Absolute 2.30 x10(3)/uL [place] Absolute 0.37 x10(3)/uL Eos Absolute 0.15 x10(3)/uL Basophil Absolute 0.06 x10(3)/uL Immature Gran Absolute 0.02 x10(3)/uL NA NRBC Absolute 0.00 x10(3)/uL D-Dimer 0.310 FEU ug/mL Fibrinogen Ag 283 mg/dL Sodium Lvl 138 mmol/L Potassium Lvl 3.7 mmol/L Chloride 101 mmol/L CO2 26 mmol/L AGAP 14.7 mmol/L BUN 8 mg/dL Creatinine 0.60 mg/dL GFR NonAfrican Montenegrin 125 mL/min/1.73 m2 Glucose Lvl 102 mg/dL HI Calcium Lvl 9.5 mg/dL Total Protein 7.4 gm/dL Albumin Lvl 4.90 gm/dL Alk Phos 69 IntUnit/L ALT 40 IntUnit/L HI AST 42 IntUnit/L HI Bili Total 0.3 mg/dL Lipase Lvl 33 IntUnit/L Osmolality 274.2 mOsm/kg HCG Qualitative Serum Negative ABO/Rh. Interp A POS ABSC Tube 2 Interp Negative , Interpretation Abnormal results hematuria. Radiology results: CT (ST) Computed Tomography: ?? CT Abdomen/Pelvis w/ Contrast ?? 05/04/21 01:05:49 EXAMINATION: CT Abdomen/Pelvis w/ Contrast CLINICAL HISTORY: LLQ pain \ T\ vomiting, atraumatic abdominal bruising. ?Retroperitoneal bleeding? TECHNIQUE: Helical CT of the abdomen and pelvis was performed following the intravenous administration of 100 ml of Omnipaque 350. COMPARISON: CT abdomen and pelvis, September 27, 2020 Pelvic ultrasound, February 13, 2021 FINDINGS: Lower chest: Normal. Liver: Normal. Bile ducts: Not dilated. Gallbladder: No calcified gallstones. Pancreas: Normal. No duct dilation. Spleen: Normal. Adrenals: Normal. Kidneys: Symmetric enhancement. No renal calculi or hydronephrosis. Vasculature: No aneurysm. Lymph Nodes: No enlarged lymph nodes. Bowel: The stomach and small bowel are decompressed. Normal terminal ileum. Changes of appendectomy are noted at the cecum. Large volume of stool in the cecum and ascending colon. Peritoneum: No free air. There is trace pelvic free fluid, likely physiologic. No loculated collection. No retroperitoneal hematoma. Abdominal wall: Normal. Urinary Bladder: Completely decompressed. No bladder calculi. Reproductive organs: Normal CT appearance of the uterus and adnexa. Trace pelvic fluid is likely physiologic. Osseous structures: No acute osseous findings. IMPRESSION: No acute abdominal or pelvic process. Specifically, no retroperitoneal hematoma. Thank you for letting us participate in the care of this patient. If you are a health care provider and have any questions regarding this report, please contact the number below. For patients who have questions please contact the health long term care administrator that requested your imaging first. ?? Signed By: ALFONZO DUMONT . Reexamination/ Reevaluation Vital signs Basic Oxygen Information 05/03/2021 22:36 EST Oxygen Therapy Room air Discussed with OB-reports analyst - they will call her today when the office opens to discuss further workup. Patient is supposed to have orientation for new job today. I will provide work note and pain control as outpatient. She states that she has plenty of zofran at home. No vomiting in the department. Vital signs reassuring. CT again shows no acute pathology. Labs are relatively unremarkable with the exception of hematuria. During her last surgery for endometriosis she was told that it had invaded her bladder and that hematuria had stopped. The fact that this is recurred along with lower abdominal pain without CT findings makes me suspicious that this is endometriosis however she states that it does feel different. I do not have a great explanation for her bruising, there does not seem to be a coagulopathy and it seems very localized to the abdomen but I have never seen this is a manifestation of endometriosis. D-dimer and fibrinogen are normal, she is not anemic and in fact her hemoglobin is extraordinarily good for her. The urine does not appear infected. I have spoken with OB and they are planning on calling her later today. I will provide a short course of pain medicine and plan for outpatient management. Impression and Plan Diagnosis Abdominal pain in female ([id number] R10.9, Discharge, Medical) Abnormal bruising ([id number] R23.8, Discharge, Medical) Plan Condition: Stable. Disposition: Medically cleared, Discharged: time 05/04/2021 03:59:00. Prescriptions: Launch prescriptions Pharmacy: oxyCODONE 5 mg oral capsule (Prescribe): 5 mg = 1 cap(s), Oral, q6hr, PRN: for pain, 12 cap(s), 0 Refill(s). Patient was given the following educational materials: Abdominal Pain, Adult, Abdominal Pain, Adult, Work/School Excuse (SMURRAY). Follow up with: RICARDO RUTH Within 1 to 2 days; ANTONINA Motta APPLIED STATISTICIAN Within 1 to 2 days The office will call you today, ANTONINA Motta APPLIED STATISTICIAN Within 1 to 2 days The office will call you today; RICARDO RUTH Within 1 to 2 days. Counseled: Patient. Functional Status 05/03/21 History of Fall in Last 3 Months Zhou N o COVID-19 Screening None Medications Benadryl 25 mg oral capsule 25 mg = 1 cap(s), Oral, Daily, 0 Refill(s) Start Date: 09/27/20 Status: Ordered Colace Oral, BID, 0 Refill(s) Start Date: 09/27/20 Status: Ordered Diflucan 150 mg oral tablet 150 mg = 1 tab(s), Oral, Once, # 1 tab(s), 0 Refill(s), Pharmacy: [facility], 1 tab(s) Oral Once Start Date: 07/31/20 Status: Ordered gabapentin 300 mg oral capsule [...] 0 Refill(s) Start Date: 09/27/20 Status: Ordered ibuprofen 800 mg, 0 Refill(s) Start Date: 03/04/20 Status: Ordered MetroGel-Vaginal 0.75% vaginal gel with applicator 1 marta, VAG, Once a day (at bedtime), # 70 gm, 0 Refill(s), Pharmacy: [facility], 1 marta VAG Once a day (at bedtime),x5 day(s) Start Date: 08/06/20 Stop Date: 08/11/20 Status: Ordered MetroGel-Vaginal 0.75% vaginal gel with applicator 1 marta, VAG, Once, # 70 gm, 0 Refill(s), Pharmacy: [facility], 1 marta VAG Once Start Date: 07/31/20 Status: Ordered MiraLax 17 gm 1 packet(s), Oral, Daily, 0 Refill(s) Start Date: 09/27/20 Status: Ordered montelukast 4 mg oral granule mg EA, Oral, Daily, 0 Refill(s) Start Date: 09/27/20 Status: Ordered norethindrone 5 mg oral tablet 10 mg = 2 tab(s), Oral, Daily, # 60 tab(s), 3 Refill(s), Pharmacy: [facility], 2tab(s) Oral Daily,x30 day(s) Start Date: 05/20/20 Stop Date: 09/17/20 Status: Ordered omeprazole Oral, Daily, 0 Refill(s) Start Date: 09/27/20 Status: Ordered oxyCODONE 5 mg oral capsule 5 mg = 1 cap(s), Oral, q6hr, PRN PRN for pain, # 12 cap(s), 0 Refill(s), 05/07/21, Pharmacy: [facility], 1 cap(s) Oral q6hr,PRN:for pain, 164, cm, 05/03/21 22:43:00 EST, Height/Length Dosing, 86.18, kg, 05/03/21 22:43:00 EST, Weight Dosing Start Date: 05/04/21 Stop Date: 05/07/21 Status: Ordered ProAir HFA INH, q6hr, 0 Refill(s) Start Date: 09/27/20 Status: Ordered Protonix 40 mg oral delayed release tablet 40 mg = 1 tab(s), Oral, Daily, # 15 tab(s), 0 Refill(s), Pharmacy: [facility], 1tab(s) Oral Daily Start Date: 03/26/20 Status: Ordered sertraline 100 mg oral tablet mg tab(s), Oral, Daily, 0 Refill(s) Start Date: 09/27/20 Status: Ordered tiZANidine 4 mg oral tablet See Instructions, 1 tab(s) Oral q8hr, 0 Refill(s) Start Date: 12/18/20 Status: Ordered traZODone 100 mg oral tablet 100 mg = 1 tab(s), Oral, Daily, 0 Refill(s) Start Date: 09/27/20 Status: Ordered Zofran ODT 4 mg oral tablet, disintegrating 4 mg = 1 tab(s), Oral, q8hr, PRN PRN Nausea/Vomiting, # 30 tab(s), 0 Refill(s), Pharmacy: [facility] [address], 1 tab(s) Oral q8hr,PRN:Nausea/Vomiting Start Date: 02/27/20 Status: Ordered Mental Status 05/03/21 Level of Consciousness Alert Problem List Condition [...] of endometrioma Results Laboratory List Name Date Urinalysis with Culture, if indicated [facility] 05/04/21 ABO/Rh. 05/03/21 Antibody Screen Tube 2 05/03/21 Automated Differential Standard 05/03/21 CBC w/Diff Standard 05/03/21 Comprehensive Metabolic Panel Standard ( CMP Standard) 05/03/21 D-Dimer 05/03/21 Fibrinogen Ag (Fibrinogen Level) 1 Lipase Level 05/03/21 Test Serum Standard 05/03/21 Urinalysis Microscopic Standard 05/03/21 Most recent to oldest [Reference Range]: 1 ABO/Rh. Interp A POS *Unknown* (05/03/21 11:26 PM) Urine Culture? No (05/04/21 12:33 AM) NRBC Auto Pct [0.00-0.20 %] 0.00 % (05/03/21 11:26 PM) ABSC Tube 2 Interp Negative (05/03/21 11:26 PM) Creatinine [0.50-0.90 mg/dL] 0.60 mg/dL (05/03/21 11:26 PM) UA Amorph Urate Identified *ABN* (05/04/21 12:33 AM) UA Bacteria [None Seen] Rare *ABN* (05/04/21 12:33 AM) UA Bili SMALL *NA* (05/04/21 12:33 AM) UA Blood [NEGATIVE] Large *ABN* (05/04/21 12:33 AM) UA Color ORANGE *NA* (05/04/21 12:33 AM) UA Glucose NEGATIVE *NA* (05/04/21 12:33 AM) UA Ketones TRACE *NA* (05/04/21 12:33 AM) UA Leuk Est [NEGATIVE] NEGATIVE (05/04/21 12:33 AM) UA Mucous Slight *ABN* (05/04/21 12:33 AM) UA Nitrite [NEGATIVE] NEGATIVE (05/04/21 12:33 AM) D-Dimer [0.000-0.500 FEU ug/mL] 0.310 FE U ug/mL (05/03/21 11:26 PM) UA Protein [NEGATIVE] 30 mg/dL *ABN* (05/04/21 12:33 AM) UA RBC [0-2] 20-30 *ABN* (05/04/21 12:33 AM) UA Urobilinogen 1.0 *NA* (05/04/21 12:33 AM) UA WBC 0-2 (05/04/21 12:33 AM) AGAP [10.0-18.0 mmol/L] 14.7 mmol/L (05/03/21: PM) Fibrinogen Ag [200-400 mg/dL] 283 mg/dL (05/03/21: PM) Glucose Lvl [70-100 mg/dL] 102 mg/dL *HI* (05/03/21: PM) Hct [34.1-44.9 %] 38.0 % (05/03/21 11: PM) Hgb [11.5-15.7 gm/dL] 12.1 gm/dL (05/03/21: PM) Lipase Lvl [13-60 IntUnit/L] 33 IntUnit/ L (05/03/21 11: PM) Lymph Auto [15.0-45.0 %] 35.9 % (05/03/21 11: PM) MCH [25.6-32.2 pg] 25.2 pg *LOW* (05/03/21: PM) MCHC [32.3-36.5 gm/dL] 31.8 gm/dL *LOW* (05/03/21: PM) MCV [79.4-94.8 fL] 79.2 fL *LOW* (05/03/21: PM) [place] Auto [4.0-14.0 %] 5.8 % (05/03/21 11: PM) MPV [9.4-12.4 fL] 10.1 fL (05/03/21: PM) Neutro Auto [50.0-75.0 %] 54.8 % (05/03/21: PM) Osmolality [268.0-291.0 mOsm/kg] 274.2 m Osm/kg (05/03/21: PM) Platelet [150-400 x10(3)/uL] 199 x10(3)/ uL (05/03/21: PM) RBC [3.93-5.22 x10(6)/uL] 4.80 x10(6)/uL (05/03/21: PM) Sodium Lvl [136-145 mmol/L] 138 mmol/L (05/03/21: PM) Total Protein [6.6-8.7 gm/dL] 7.4 gm/dL (05/03/21: PM) UA pH 7.5 (05/04/21 12:33 AM) Albumin Lvl [3.50-5.20 gm/dL] 4.90 gm/dL (05/03/21: PM) Alk Phos [35-105 IntUnit/L] 69 IntUnit/L (05/03/21: PM) ALT [0-33 IntUnit/L] 40 IntUnit/L *HI* (05/03/21: PM) AST [0-32 IntUnit/L] 42 IntUnit/L *HI* (05/03/21: PM) Basophil Auto [0.0-2.0 %] 0.9 % (05/03/21: PM) Bili Total [0.0-1.3 mg/dL] 0.3 mg/dL (05/03/21: PM) CO2 [22-29 mmol/L] 26 mmol/L (05/03/21: PM) Eos Auto [0.0-8.0 %] 2.3 % (05/03/21: PM) UA Spec Grav 1.020 (05/04/21 12:33 AM) WBC [4.0-10.0 x10(3)/uL] 6.4 x10(3)/uL (05/03/21: PM) BUN [6-23 mg/dL] 8 mg/dL (05/03/21 11:26 PM) Calcium Lvl [8.6-10.2 mg/dL] 9.5 mg/dL (05/03/21 11:26 PM) Chloride [98-107 mmol/L] 101 mmol/L (05/03/21 11:26 PM) Potassium Lvl [3.5-5.1 mmol/L] 3.7 mmol/ L (05/03/21 11:26 PM) Micro? [Not Indicated] Indicated *ABN* (05/04/21 12:33 AM) Lymph Absolute [1.20-3.70 x10(3)/uL] 2.3 0 x10(3)/uL (05/03/21 11:26 PM) [place] Absolute [0.20-0.40 x10(3)/uL] 0.37 x10(3)/uL (05/03/21 11:26 PM) Eos Absolute [0.04-0.54 x10(3)/uL] 0.15 x10(3)/uL (05/03/21 11:26 PM) NRBC Absolute [0.00-.01 x10(3)/uL] 0.00 x10(3)/uL (05/03/21 11:26 PM) UA Clarity CLOUDY *NA* (05/04/21 12:33 AM) Neutro Absolute [1.56-6.13 x10(3)/uL] 3. 51 x10(3)/uL (05/03/21 11:26 PM) RDW-CV [11.7-14.4 %] 15.7 % *HI* (05/03/21 11:26 PM) GFR NonAfrican Montenegrin [>=60 mL/min/1.7 3 m2] 125 mL/min/1.73 m2 (05/03/21 11:26 PM) UA Squam Epi Moderate *ABN* (05/04/21 12:33 AM) Immature Gran % [0.00-2.30 %] 0.30 % (05/03/21 11:26 PM) Immature Gran Absolute 0.02 x10(3)/uL *NA* (05/03/21 11:26 PM) HCG Qualitative Serum [Negative] Negativ e (05/03/21 11:26 PM) Basophil Absolute [0.00-0.10 x10(3)/uL] 0.06 x10(3)/uL (05/03/21 11:26 PM) Radiology Reports * Exam Date Time Procedure Performing Provider Status 05/04/21 12:[address] Abdomen/Pelvis w/ Contrast Daija Monroe; Mark (Verified) Notes: (CT Abdomen/Pelvis w/ Contrast) Reason For Exam: LLQ pain & vomiting, atraumatic abdominal bruising. ?retroperitoneal bleeding? CT Abdomen/Pelvis w/ Contrast EXAMINATION: CT Abdomen/Pelvis w/ Contrast CLINICAL HISTORY: LLQ pain \T\ vomiting, atraumatic abdominal bruising. ?Retroperitoneal bleeding? TECHNIQUE: Helical CT of the abdomen and pelvis was performed following the intravenous administration of 100 ml of Omnipaque 350. COMPARISON: CT abdomen and pelvis, September 27, 2020 Pelvic ultrasound, February 13, 2021 FINDINGS: Lower chest: Normal. Liver: Normal. Bile ducts: Not dilated. Gallbladder: No calcified gallstones. Pancreas: Normal. No duct dilation. Spleen: Normal. Adrenals: Normal. Kidneys: Symmetric enhancement. No renal calculi or hydronephrosis. Vasculature: No aneurysm. Lymph Nodes: No enlarged lymph nodes. Bowel: The stomach and small bowel are decompressed. Normal terminal ileum. Changes of appendectomy are noted at the cecum. Large volume of stool in the cecum and ascending colon. Peritoneum: No free air. There is trace pelvic free fluid, likely physiologic. No loculated collection. No retroperitoneal hematoma. Abdominal wall: Normal. Urinary Bladder: Completely decompressed. No bladder calculi. Reproductive organs: Normal CT appearance of the uterus and adnexa. Trace pelvic fluid is likely physiologic. Osseous structures: No acute osseous findings. IMPRESSION: No acute abdominal or pelvic process. Specifically, no retroperitoneal hematoma. Thank you for letting us participate in the care of this patient. If you are a health care provider and have any questions regarding this report, please contact the number below. For patients who have questions please contact the health long term care administrator that requested your imaging first. Final Dictated: 05/04/2021 1:05 am ALFONZO DUMONT Signed (Electronic Signature): 05/04/2021 1:05 am Signed by: ALFONZO DUMONT Vital Signs Most recent to oldest [Reference Range]: 1 2 3 Temperature Temporal [36.3-37.8 DegC] 36.7 DegC (05/03/21 10:36 PM) Peripheral Pulse Rate [60-100 bpm] 86 bpm (05/04/21 4:47 AM) 77 bpm (05/04/21 2:21 AM) 71 bpm (05/03/21 10:36 PM) Respiratory Rate [14-20 br/min] 16 br/min (05/04/21 4:47 AM) 16 br/min (05/04/21 2:21 AM) 16 br/min (05/03/21 10:36 PM) Blood Pressure [90-140/60-90 mmHg] 117/71mmHg (05/04/21 4:47 AM) 118/78mmHg (05/04/21 2:21 AM) 116/76mmHg (05/03/21 10:36 PM) SpO2 [92-100 %] 98 % (05/04/21 4:47 AM) 98 % (05/04/21 2:21 AM) 96 % (05/03/21 10:36 PM) Height/Length Estimated 164.000 cm (05/03/21 10:36 PM) Height/Length Dosing 164.000 cm (05/03/21 10:43 PM) Weight Estimated 86.180 kg (05/04/21 4:47 AM) 86.180 kg (05/03/21 10:36 PM) Weight Dosing 86.180 kg (05/03/21 10:43 PM) Social History Social History Type Response Smoking Status Never (less than 100 in lifetime) entered on: 07/31/20 Sex Hospital Discharge Instructions Patient Education 05/04/2021 04:24:08 Work/School Excuse (SMURRAY) Work/School Excuse [facility] Emergency Department Date: 05/04/2021 Please excuse Mrs. White from work. The patient was seen today in the ED. Patient may return: 05/10/2021 Restrictions: None Provider: Tamie Duncan M.D. Signature: 05/04/2021 04:24:08 Abdominal Pain, Adult Abdominal Pain, Adult Pain [...] these instructions at home: Medicines ??? Take [id number] and prescription medicines only as told by [...] your condition for any changes. ??? Take [id number] and prescription medicines only as told by [...] provider. Document Revised: 06/19/2020 Document Reviewed: 09/09/2019 [employer] Patient Education ?? 2020 [employer] Follow Up Care 05/03/2021 22:24:48 With:ANTONINA - Kalia APPLIED STATISTICIAN Address: [address] [place] [id number]- Business (1) When:1 to 2 days Comments:The office will call you today With:RICARDO RUTH Address: [address] [address]- Business (1) When:1 to 2 days
--- OUTSIDE RECORDS SUMMARY | 2022-11-20 17:52 | XMS_ITS | Continuity of Care Document ---
Author Name Unknown Organization [facility] Address [address] [place] [address]- Care Team Providers Care [employer] Coordinator Name Role Phone Adeel Busby Primary Care Physician Daksha deckerailliza Encounter [facility] Date(s): 02/10/22 - 05/12/[address] [place], [place] [address] Encounter Diagnosis Acquired von Willebrand's disease(Discharge Diagnosis) - 02/11/22 Discharge Disposition: Other Attending Physician: MANDO HUBBARD Allergies, Adverse Reactions, Alerts Substance Reaction Severity Status droperidol Moderate Active Latex Itching Active Compazine Edema Active Toradol Nausea Active penicillins Edema Hives Active Haldol Moderate Active Medications !-Zofran ODT 4 mg oral tablet, disintegrating 4 mg = 1 tab(s), Oral, q8hr, PRN PRN Nausea/Vomiting, # 30 tab(s), 0 Refill(s), Pharmacy: [facility] #[id number], 1 tab(s) Oral q8hr,PRN:Nausea/Vomiting, 164, cm, 01/17/22 [...] 28 tab(s), 5 Refill(s), [facility]: [id number], 1 tab(s) Oral Daily, 164, cm, 01/17/22 [...] 60 tab(s), 3 Refill(s), [facility], 2tab(s) Oral Daily,x30 day(s) Start Date: 05/20/20 Stop Date: 09/17/20 Status: Ordered omeprazole Oral, Daily, 0 Refill(s) Start Date: 09/27/20 Status: Ordered ondansetron 4 mg oral tablet, disintegrating 4 mg = 1 tab(s), Oral, q8hr, PRN PRN Nausea/Vomiting, # 20 tab(s), 0 Refill(s), Pharmacy: [facility], 1 tab(s) Oral q8hr,PRN:Nausea/Vomiting, 165, cm, 07/13/21 17:17:00 EST, Height/Length Dosing, 83, kg, 07/13/21 17:17:00 EST, Weight Dosing Start Date: 07/14/21 Status: Ordered ProAir HFA INH, q6hr, 0 Refill(s) Start Date: 09/27/20 Status: Ordered Protonix 40 mg oral delayed release tablet 40 mg = 1 tab(s), Oral, Daily, # 15 tab(s), 0 Refill(s), [facility]acy: [facility] [address] [facility], 1tab(s) Oral Daily Start Date: 03/26/20 Status: [...] 30 tab(s), 2 Refill(s), [facility]: [facility] #[id number], 2 tab(s) Oral TID,x5 day(s),Instr:st... 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 8menorrhagia 9aspiration of endometrioma Social History Social History Type Response Smoking Status Never (less than 100 in lifetime) entered on: 07/13/21 Sex Oncology Note * ABELARDO FAULKNER: PERFORM, SIGN, VERIFY Event Display: Oncology Note Authored Date: [id number] Patient: EDUARDO PAYAN Age: 22 years Sex: Female : 2000 Associated Diagnoses: None Author: ABELARDO FAULKNER Patient case reviewed and accepted for consult -[facility] Thombophilia and hemophilia team Multiple messages by staff on pt voicemail Discussed appointment issues with who will facilitate contact with pt [Electronically Signed on: 04/01/2022 14:00 EST] ABELARDO FAULKNER [Verified on: 04/01/2022 14:00 EST] ABELARDO FAULKNER * ERIN POWER MD: REVIEW ERIN POWER MD: REVIEW, SIGN, VERIFY Event Display: Oncology Note Authored Date: [id number] Patient: EDUARDO PAYAN Age: 22 years Sex: Female : 2000 Associated Diagnoses: None Author: [facility] HUBBARD [id number] Patient did not show for scheduled appointment today for consultation. Usual procedure will be followed to reschedule. [Electronically Signed on: 02/11/2022 15:10 EDT] MANDO HUBBARD MD [Verified on: 02/11/2022 15:10 EDT] MANDO HUBBARD MD Patient Care team information Personnel Name: Adeel Busby
--- OUTSIDE RECORDS SUMMARY | 2022-11-20 17:52 | XMS_ITS | Continuity of Care Document ---
Author Name Unknown Organization [facility] Address [address] [place] [address]- Care Team Providers Care Instructor [employer] Name Role Phone Non-Staff, Physician Primary Care Physician Unav ailable Encounter [facility] [id number] Date(s): 02/27/20 - 02/27/[address] [address]- Discharge Disposition: Home or Self Care Attending Physician: Elier Bermudez Admitting Physician: Elier Bermudez Allergies, Adverse Reactions, Alerts Substance Reaction Severity Status Latex Itching Active penicillins Edema Hives Active Compazine Edema Active Assessment and Plan Extracted from: Title:General medical Author:Elier Bermudez Date:1 History of Present Illness 20-year-old female with a past medical history significant for chronic pelvic pain secondary to endometriosis recently seen by FRESH WORK WRAPPER LAYER and started on Orlissa who presents with worsening pelvic pain. History obtained from the patient. She states that her pain was worse last night. She describes it as sharp and in her bilateral lower pelvis. She states that this pain is symmetric bilaterally and is not isolated to one area. Reports exacerbation with movement. Palliation with a heating pad and flexion of her bilateral hips. Denies dysuria, frequency, and urgency. Denies melena, hematochezia, hematemesis. Reports nausea with vomiting. Denies chest pain or shortness of breath. Review of Systems Constitutional symptoms: No fever, Skin symptoms: No rash, Eye symptoms: No recent vision problems, ENMT symptoms: No sore throat, Respiratory symptoms: No shortness of breath, Cardiovascular symptoms: No chest pain, Gastrointestinal symptoms: Abdominal pain, nausea, vomiting. Genitourinary symptoms: No dysuria, Musculoskeletal symptoms: No back pain, Neurologic symptoms: No headache, Endocrine symptoms: No polyuria, Health Status Allergies: Allergic Reactions (Selected) Severity Not Documented Compazine- Edema. Latex- Itching. Penicillins- Hives and edema.. Medications: (Selected) Inpatient Medications Ordered Sodium Chloride 0.9%: 1,000 mL, 1000 mL/hr, IV, Once Toradol IV/IM: 15 mg = 1 mL, IV Push, Once Zofran: 4 mg = 2 mL, IV Push, Once Prescriptions Prescribed Orilissa 150 mg oral tablet: 150 mg = 1 tab(s), Oral, Daily, 30 tab(s), 11 Refill(s) Zofran ODT 4 mg oral tablet, disintegratin mg = 1 tab(s), Oral, TID, for 3 day(s), 9 tab(s), 0 Refill(s) Documented Medications Documented Zofran 4 mg oral tablet: mg = tab(s), Oral, q8hr, 0 Refill(s) norethindrone 5 mg oral tablet: 10 mg = 2 tab(s), Oral, Daily, 180 tab(s), 0 Refill(s) sertraline: Oral, Daily, 0 Refill(s). Past Medical/ Family/ Social History Medical history: No active or resolved past medical history items have been selected or recorded.. Surgical history: D&C - Dilatation and curettage ([id number]) in the month of 06/2018 at 18 Years. Comments: 02/20/2020 10:14 ERIN XIONG MD menorrhagia Laparoscopy with aspiration ([id number]) in the month of 01/2018 at 18 Years. Comments: 02/20/2020 10:14 ERIN XIONG MD aspiration of endometrioma. Family history: No family history items have been selected or recorded.. 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 Exercise Exercise frequency: Daily. Exercise type: Walking. [...] . Physical Examination Vital Signs Vital Signs 02/27/2020 10:03 EDT Temperature Oral 37 DegC Temperature Oral (DegF) 98.6 DegF 02/27/2020 9:49 EDT Temperature Temporal 36.5 DegC Peripheral Pulse Rate 87 bpm Respiratory Rate 20 br/min Systolic Blood Pressure 109 mmHg Diastolic Blood Pressure 67 mmHg SpO2 100 % . Measurements 02/27/2020 9:55 EDT Weight Dosing 73.480 kg 02/27/2020 9:55 EDT Height/Length Dosing 162.000 cm 02/27/2020 9:49 EDT Height/Length Estimated 162.000 cm Weight Estimated 73.480 kg . Basic Oxygen Information 02/27/2020 9:49 EDT Oxygen Therapy Room air . General: Alert, mild distress, Mild distress secondary to pain Sitting on the stretcher with a heating pad in her lower abdomen and her bilateral hips in flexion. Skin: Warm, dry. Head: Atraumatic. Neck: Supple. Eye: Normal conjunctiva. Cardiovascular: Regular rate and rhythm. Respiratory: Respirations are non-labored. Gastrointestinal: Soft, Non distended, Bilateral lower abdominal tenderness without rebound or guarding, No CVA tenderness. Neurological: Alert and oriented to person, place, time, and situation, No focal neurological deficit observed. Psychiatric: Cooperative. Medical Decision Making Radiology results: CT (ST) Computed Tomography: CT Abdomen/Pelvis w/ Contrast 02/27/20 13:25:34 EXAMINATION: CT Abdomen/Pelvis w/ Contrast CLINICAL HISTORY: Bilateral lower abdominal pain TECHNIQUE: Helical CT of the abdomen and pelvis was performed following the intravenous administration of 99 ml of Omnipaque 300. Oral contrast was not administered. COMPARISON: 02 December 2019 FINDINGS: Lower chest: Normal. Liver: Normal size and attenuation without lesions. Bile ducts: Nondilated. Gallbladder: No calcified gallstones. Normal caliber wall. Pancreas: Normal attenuation without ductal dilatation. Spleen: Normal. Adrenals: Normal. Kidneys: Normal. Urinary Bladder: Normal. Vasculature: No aneurysm. Lymph Nodes: No enlarged lymph nodes. Bowel: Nondilated, no wall thickening. Appendix is surgically absent. Peritoneum and mesentery: No ascites, free air, or loculated fluid collection. No mesenteric inflammation. Abdominal wall: Normal. Reproductive organs: Normal. Minimal free fluid in the posterior cul-de-sac. Osseous structures: No suspicious lesions. IMPRESSION: There is minimal free fluid in the posterior cul-de-sac. Otherwise negative exam. Thank you for letting us participate in the care of this patient. For questions regarding this report, please contact the number below. Electronically signed by: Timmy Cano MD, [facility] ([phone]), at 02/27/2020 1:25 PM Signed By: Timmy Cano , US () Ultrasound: ?? US Transvaginal Non-OB ?? 02/27/20 11:47:42 EXAMINATION: US Transvaginal Non-OB CLINICAL HISTORY: Known endometriosis with left ovarian cyst and worsening pain TECHNIQUE: Transvaginal pelvic sonogram COMPARISON: 18 February 2020 FINDINGS: The uterus is 6.8 x 4.1 x 3 cm with 3 mm endometrium. The right ovary is 2.1 x 1.1 0.3 cm and the left ovary is 3 x 2.1 x 1.6 cm. Left ovary is decreased in size compared to previous exam. There is a poorly defined hypoechoic area in the left ovary with maximum diameter 1.5 cm. IMPRESSION: Hypoechoic area in the left ovary has decreased in size suggesting resolving hemorrhagic cyst. There is no other significant change. Thank you for letting us participate in the care of this patient. For questions regarding this report, please contact the number below. Electronically signed by: Timmy Cano MD, [facility] ([phone]), at 02/27/2020 11:47 AM ?? Signed By: Timmy Cano . 20-year-old female with a past medical history significant for chronic pelvic pain as well as endometriosis who presents with pelvic pain. On exam, her vitals are within normal limits. Her physical exam was significant for her mild distress secondary to pain. Her abdomen was significant for bilateral lower abdominal tenderness without rebound or guarding. No CVA tenderness on exam. Given the patient's history and recent transvaginal ultrasound, repeat transvaginal ultrasound was performed to assess for progression. As above, this showed a hypoechoic area of the left ovary that has decreased in size suggesting a resolving hemorrhagic cyst. No other significant findings. No evidence of torsion. Given the patient's continued discomfort a CT scan of the abdomen and pelvis was performed. As above, this showed minimal free fluid in the posterior cul-de-sac but otherwise a negative exam. Labs were performed which showed no evidence of leukocytosis or anemia. She had no clinically significant electrolyte abnormality. No transaminitis. No evidence of pancreatitis. Beta hCG negative. The patient did receive 15 mg of Toradol, 8 mg of Zofran, 8 mg of IV morphine, and 15 mg of oral morphine for symptomatic management with some improvement. As below, I spoke with TRAINING ADMINISTRATOR regarding the patient's presentation today. They will schedule a follow-up appointment with Dr. Ramos. I communicated this with the patient. A short course of Zofran and morphine were provided. Return precautions were discussed. She was discharged home with return precautions and follow-up with [employer] WORK WRAPPER LAYER. Reexamination/ Reevaluation Time: 02/27/2020 13:49:00 . Vital signs Basic Oxygen Information 02/27/2020 9:49 EDT Oxygen Therapy Room air Notes: Spoke with the brick baker on-call who is going to review the chart and speak with Dr. Delgado. She will get back to me., [id number] Delgado who recommended Toradol. I communicated that Toradol was the initial medication given which provided no relief. I then asked at what point in her management is 1 consider exploratory laparoscopy. She stated the patient did have an exploratory laparoscopy in 2018. Seems as though her symptoms have been better managed medically. She recommended giving the [facility] more time to work and she will schedule a follow-up appointment with Dr. Ramos.. Impression and Plan Diagnosis Chronic pelvic pain Endometriosis Plan Disposition: Discharged: to home. Prescriptions: Launch prescriptions Pharmacy: morphine 15 mg oral tablet (Prescribe): 15 mg = 1 tab(s), Oral, q4hr, PRN: for pain, 9 tab(s), 0 Refill(s) Zofran ODT 4 mg oral tablet, disintegrating (Prescribe): 4 mg = 1 tab(s), Oral, q8hr, PRN: Nausea/Vomiting, 30 tab(s), 0 Refill(s). Patient was given the following educational materials: Endometriosis, Endometriosis. Follow up with: Physician Non-Staff Within 1 to 2 days, ERIN RAMOS Within 3 to 5 days Call for followup appointment. Counseled: Patient. Future Appointments Functional Status 02/27/20 COVID-19 Screening None Medications morphine 15 mg oral tablet 15 mg = 1 tab(s), Oral, q4hr, PRN PRN for pain, # 9 tab(s), 0 Refill(s), 03/05/20, Pharmacy: [id number], 1 tab(s) Oral q4hr,PRN:for pain Start Date: 02/27/20 Stop Date: 03/05/20 Status: Ordered norethindrone 5 mg oral tablet 10 mg = 2 tab(s), Oral, Daily, # 180 tab(s), 0 Refill(s) Start Date: 02/18/20 Status: Ordered Orilissa 150 mg oral tablet 150 mg = 1 tab(s), Oral, Daily, # 30 tab(s), 11 Refill(s), Pharmacy: [id number], 1tab(s) Oral Daily Start Date: 02/19/20 Status: Ordered sertraline Oral, Daily, 0 Refill(s) Start Date: 02/18/20 Status: Ordered Zofran 4 mg oral tablet mg tab(s), Oral, q8hr, 0 Refill(s) Start Date: 02/18/20 Status: Ordered Zofran ODT 4 mg oral tablet, disintegrating 4 mg = 1 tab(s), Oral, q8hr, PRN PRN Nausea/Vomiting, # 30 tab(s), 0 Refill(s), Pharmacy: [id number], 1 tab(s) Oral q8hr,PRN:Nausea/Vomiting Start Date: 02/27/20 Status: Ordered Zofran ODT 4 mg oral tablet, disintegrating 4 mg = 1 tab(s), Oral, TID, # 9 tab(s), 0 Refill(s) Start Date: 02/18/20 Stop Date: 02/21/20 Status: Ordered Mental Status 02/27/20 Level of Consciousness Alert Problem List Condition Effective Dates Status Health Status Inform ant Asthma(Confirmed) Active Endometriosis(Confirmed) Active Procedures Procedure Date Related Diagnosis Body Site Status D&C - Dilatation and curettage 1 06/2018 Completed Laparoscopy with aspiration 2 01/2018 Completed 1menorrhagia 2aspiration of endometrioma Results Laboratory List Name Date Test Urine Standard (Urine Pre gnancy Test Standard) 02/27/20 Urinalysis with Culture, if indicated vinny 02/27/20 Automated Differential Standard 02/27/20 CBC w/Diff Standard 02/27/20 Comprehensive Metabolic Panel Standard ( CMP Standard) 02/27/20 Lipase Level 02/27/20 Urinalysis Microscopic Standard 02/27/20 Most recent to oldest [Reference Range]: 1 NRBC Auto Pct [0.00-0.20 %] 0.00 % (02/27/20 10:35 AM) Creatinine [0.50-0.90 mg/dL] 0.72 mg/dL (02/27/20 10:35 AM) UA Bacteria [None Seen] None Seen (02/27/20 12:13 PM) UA Bili [Negative] Negative (02/27/20 12:13 PM) UA Blood [Negative] Trace-intact *ABN* (02/27/20 12:13 PM) UA Color Yellow (02/27/20 12:13 PM) UA Glucose [Negative] Negative (02/27/20 12:13 PM) UA Ketones [Neg] Neg (02/27/20 12:13 PM) UA Leuk Est [Negative] Negative (02/27/20 12:13 PM) UA Mucous Slight *ABN* (02/27/20 12:13 PM) UA Nitrite [Negative] Negative (02/27/20 12:13 PM) UA Protein [Negative] 30 mg/dL *ABN* (02/27/20 12:13 PM) UA RBC [0-2] 0-2 (02/27/20 12:13 PM) UA Urobilinogen 0.2 EU/dL (02/27/20 12:13 PM) UA WBC 0-2 (02/27/20 12:13 PM) AGAP [10.0-18.0 mmol/L] 15.8 mmol/L (02/27/20 10:35 AM) Glucose Lvl [70-100 mg/dL] 89 mg/dL (02/27/20 10:35 AM) Hct [34.1-44.9 %] 35.4 % (02/27/20 10:35 AM) Hgb [11.5-15.7 gm/dL] 11.5 gm/dL (02/27/20 10:35 AM) Lipase Lvl [13-60 IntUnit/L] 21 IntUnit/ L (02/27/20 10:35 AM) Lymph Auto [15.0-45.0 %] 37.5 % (02/27/20 10:35 AM) MCH [25.6-32.2 pg] 25.7 pg (02/27/20 10:35 AM) MCHC [32.3-36.5 gm/dL] 32.5 gm/dL (02/27/20 10:35 AM) MCV [79.4-94.8 fL] 79.0 fL *LOW* (02/27/20:35 AM) [place] Auto [4.0-14.0 %] 7.5 % (02/27/20 10:35 AM) MPV [9.4-12.4 fL] 10.6 fL (02/27/20 10:35 AM) Neutro Auto [50.0-75.0 %] 51.1 % (02/27/20 10:35 AM) Osmolality [268.0-291.0 mOsm/kg] 276.1 m Osm/kg (02/27/20 10:35 AM) Platelet [150-400 x10(3)/uL] 238 x10(3)/ uL (02/27/20 10:35 AM) RBC [3.93-5.22 x10(6)/uL] 4.48 x10(6)/uL (02/27/20 10:35 AM) Sodium Lvl [136-145 mmol/L] 139 mmol/L (02/27/20 10:35 AM) Total Protein [6.6-8.7 gm/dL] 7.6 gm/dL (02/27/20 10:35 AM) UA pH >=9.0 *NA* (02/27/20 12:13 PM) Albumin Lvl [3.50-5.20 gm/dL] 4.90 gm/dL (02/27/20 10:35 AM) Alk Phos [35-105 IntUnit/L] 52 IntUnit/L (02/27/20 10:35 AM) ALT [0-33 IntUnit/L] 24 IntUnit/L (02/27/20 10:35 AM) AST [0-32 IntUnit/L] 30 IntUnit/L (02/27/20 10:35 AM) Basophil Auto [0.0-2.0 %] 1.5 % (02/27/20 10:35 AM) Bili Total [0.0-1.3 mg/dL] 0.6 mg/dL (02/27/20 10:35 AM) CO2 [22-29 mmol/L] 24 mmol/L (02/27/20 10:35 AM) Eos Auto [0.0-8.0 %] 2.2 % (02/27/20 10:35 AM) UA Spec Grav 1.020 (02/27/20 12:13 PM) WBC [4.0-10.0 x10(3)/uL] 4.1 x10(3)/uL (02/27/20 10:35 AM) BUN [6-23 mg/dL] 10 mg/dL (02/27/20 10:35 AM) Calcium Lvl [8.6-10.2 mg/dL] 9.5 mg/dL (02/27/20 10:35 AM) Chloride [98-107 mmol/L] 103 mmol/L (02/27/20 10:35 AM) Potassium Lvl [3.5-5.1 mmol/L] 3.8 mmol/ L (02/27/20 10:35 AM) Micro? Yes *NA* (02/27/20 12:13 PM) Lymph Absolute [1.20-3.70 x10(3)/uL] 1.5 5 x10(3)/uL (02/27/20 10:35 AM) [place] Absolute [0.20-0.40 x10(3)/uL] 0.31 x10(3)/uL (02/27/20 10:35 AM) Eos Absolute [0.04-0.54 x10(3)/uL] 0.09 x10(3)/uL (02/27/20 10:35 AM) NRBC Absolute [0.00-0.01 x10(3)/uL] 0.00 x10(3)/uL (02/27/20 10:35 AM) UA Clarity Clear (02/27/20 12:13 PM) Neutro Absolute [1.56-6.13 x10(3)/uL] 2. 11 x10(3)/uL (02/27/20 10:35 AM) RDW-CV [11.7-14.4 %] 12.9 % (02/27/20 10:35 AM) GFR >60 mL/min/1.73 m2 *NA* (02/27/20 10:35 AM) GFR NonAfrican Puerto [place]ican >60 mL/min/1.73 m2 *NA* (02/27/20 10:35 AM) UA Squam Epi Few *ABN* (02/27/20 12:13 PM) Human Chorionic Gonadotropin Qualitative Negative (02/27/20 12:13 PM) Immature Gran % [0.00-2.30 %] 0.20 % (02/27/20 10:35 AM) Immature Gran Absolute 0.01 x10(3)/uL *NA* (02/27/20 10:35 AM) Basophil Absolute [0.00-0.10 x10(3)/uL] 0.06 x10(3)/uL (02/27/20 10:35 AM) Radiology Reports * Exam Date Time Procedure Performing Provider Status 02/27/20 1:[address] Abdomen/Pelvis w/ Contrast Dick Lott; Mark (Verified) Notes: (CT Abdomen/Pelvis w/ Contrast) Reason For Exam: Bilateral lower abdominal pain CT Abdomen/Pelvis w/ Contrast EXAMINATION: CT Abdomen/Pelvis w/ Contrast CLINICAL HISTORY: Bilateral lower abdominal pain TECHNIQUE: Helical CT of the abdomen and pelvis was performed following the intravenous administration of 99 ml of Omnipaque 300. Oral contrast was not administered. COMPARISON: 02 December 2019 FINDINGS: Lower chest: Normal. Liver: Normal size and attenuation without lesions. Bile ducts: Nondilated. Gallbladder: No calcified gallstones. Normal caliber wall. Pancreas: Normal attenuation without ductal dilatation. Spleen: Normal. Adrenals: Normal. Kidneys: Normal. Urinary Bladder: Normal. Vasculature: No aneurysm. Lymph Nodes: No enlarged lymph nodes. Bowel: Nondilated, no wall thickening. Appendix is surgically absent. Peritoneum and mesentery: No ascites, free air, or loculated fluid collection. No mesenteric inflammation. Abdominal wall: Normal. Reproductive organs: Normal. Minimal free fluid in the posterior cul-de-sac. Osseous structures: No suspicious lesions. IMPRESSION: There is minimal free fluid in the posterior cul-de-sac. Otherwise negative exam. Thank you for letting us participate in the care of this patient. For questions regarding this report, please contact the number below. Electronically signed by: Timmy Cano MD, [facility] ([phone]), at 02/27/2020 1:25 PM Final Dictated: 02/27/2020 1:25 pm Timmy Cano Signed (Electronic Signature): 02/27/2020 1:25 pm Signed by: Timmy Cano * Exam Date Time Procedure Performing Provider Status 02/27/20 11:15 AM US Transvaginal Non-OB Liliana Mckeon; Mark (Verified) Notes: (US Transvaginal Non-OB) Reason For Exam: Known endometriosis with left ovarian cyst and worsening pain US Transvaginal Non-OB EXAMINATION: US Transvaginal Non-OB CLINICAL HISTORY: Known endometriosis with left ovarian cyst and worsening pain TECHNIQUE: Transvaginal pelvic sonogram COMPARISON: 18 February 2020 FINDINGS: The uterus is 6.8 x 4.1 x 3 cm with 3 mm endometrium. The right ovary is 2.1 x 1.1 0.3 cm and the left ovary is 3 x 2.1 x 1.6 cm. Left ovary is decreased in size compared to previous exam. There is a poorly defined hypoechoic area in the left ovary with maximum diameter 1.5 cm. IMPRESSION: Hypoechoic area in the left ovary has decreased in size suggesting resolving hemorrhagic cyst. There is no other significant change. Thank you for letting us participate in the care of this patient. For questions regarding this report, please contact the number below. Electronically signed by: Timmy Cano MD, [facility] ([phone]), at 02/27/2020 11:47AM Final Dictated: 02/27/2020 11:47 am Timmy Cano Signed (Electronic Signature): 02/27/2020 11:47 am Signed by: Timmy Cano Technologist: Linda Mckeon Vital Signs Most recent to oldest [Reference Range]: 1 2 3 Temperature Oral [35.8-37.3 DegC] 37 DegC (02/27/20 10:03 AM) Temperature Oral (DegF) 98.6 DegF (02/27/20 10:03 AM) Temperature Temporal [36.3-37.8 DegC] 36.5 DegC (02/27/20 9:49 AM) Peripheral Pulse Rate [60-100 bpm] 85 bpm (02/27/20 2:15 PM) 80 bpm (02/27/20 2:00 PM) 72 bpm (02/27/20 1:45 PM) Respiratory Rate [14-20 br/min] 20 br/min (02/27/20 9:49 AM) Blood Pressure [90-140/60-90 mmHg] 112/70mmHg (02/27/20 2:15 PM) 114/65mmHg (02/27/20 1:45 PM) 114/65mmHg (02/27/20 1:30 PM) Mean Arterial Pressure, Cuff 84 mmHg (02/27/20 2:15 PM) 81 mmHg (02/27/20 1:45 PM) 81 mmHg (02/27/20 1:30 PM) Mean Arterial Pressure Cuff-Monitor 78 mmHg (02/27/20 1:45 PM) 78 mmHg (02/27/20 1:30 PM) 86 mmHg (02/27/20 12:45 PM) BP Site Left arm (02/27/20 12:45 PM) SpO2 [92-100 %] 98 % (02/27/20 2:15 PM) 100 % (02/27/20 2:00 PM) 96 % (02/27/20 1:45 PM) Height/Length Estimated 162.000 cm (02/27/20 9:49 AM) Height/Length Dosing 162.000 cm (02/27/20 9:55 AM) Weight Estimated 73.480 kg (02/27/20 9:49 AM) Weight Dosing 73.480 kg (02/27/20 9:55 AM) Social History Social History Type Response Smoking Status Never (less than 100 in lifetime) entered on: 02/18/20 Sex Hospital Discharge Instructions Patient Education 02/27/2020 14:07:26 Endometriosis You were seen in the emergency department for your pelvic pain. This is likely secondary to your endometriosis. Zofran and morphine have been given for symptoms. Please take as directed. As we discussed, you will have a follow-up appointment scheduled with Dr. Ramos. Please call her office regarding this appointment. At this time, no emergent causes were identified. However, no evaluation is perfect. Therefore, please be sure to return to the emergency department for any worsening of symptoms,continued symptoms, or new symptoms. Please be sure to follow-up with your threading machine operator in 3 to 5 days. Endometriosis Endometriosis is a condition in which the tissue that lines the uterus (endometrium) grows outside of its normal location. The tissue may grow in many locations close to the uterus, but it commonly grows on the ovaries, fallopian tubes, vagina, or bowel. When the uterus sheds the endometrium every menstrual cycle, there is bleeding wherever the endometrial tissue is located. This can cause pain because blood is irritating to tissues that are not normally exposed to it. What are the causes? The cause of endometriosis is not known. What increases the risk? You may be more likely to develop endometriosis if you: ??? Have a family history of endometriosis. ??? Have never given . ??? Started your period at age 10 or younger. ??? Have high levels of estrogen in your body. ??? Were exposed to a certain medicine (diethylstilbestrol) before you were born (in utero). ??? Had low weight. ??? Were born as a twin, triplet, or other multiple. ??? Have a BMI of less than 25. BMI is an estimate of body fat and is calculated from height and weight. What are the signs or symptoms? Often, there are no symptoms of this condition. If you do have symptoms, they may: ??? Vary depending on where your endometrial tissue is growing. ??? Occur during your menstrual period (most common) or midcycle. ??? Come and go, or you may go months with no symptoms at all. ??? Stop with menopause. Symptoms may include: ??? Pain in the back or abdomen. ??? Heavier bleeding during periods. ??? Pain during sex. ??? Painful bowel movements. ??? Infertility. ??? Pelvic pain. ??? Bleeding more than once a month. How is this diagnosed? This condition is diagnosed based on your symptoms and a physical exam. You may have tests, such as: ??? Blood tests and urine tests. These may be done to help rule out other possible causes of your symptoms. ??? Ultrasound, to look for abnormal tissues. ??? An X-ray of the lower bowel (barium enema). ??? An ultrasound that is done through the vagina (transvaginally). ??? CT scan. ??? MRI. ??? Laparoscopy. In this procedure, a lighted, pencil-sized instrument called a laparoscope is inserted into your abdomen through an incision. The laparoscope allows your health care provider to lookat the organs inside your body and check for abnormal tissue to confirm the diagnosis. If abnormal tissue is found, your health care provider may remove a small piece of tissue (biopsy) to be examined under a microscope. How is this treated? Treatment for this condition may include: ??? Medicines to relieve pain, such as NSAIDs. ??? Hormone therapy. This involves using artificial (synthetic) hormones to reduce endometrial tissue growth. Your health care provider may recommend using a hormonal form of control, or other medicines. ??? Surgery. This may be done to remove abnormal endometrial tissue. ??? In some cases, tissue may be removed using a laparoscope and a laser (laparoscopic laser treatment). ??? In severe cases, surgery may be done to remove the fallopian tubes, uterus, and ovaries (hysterectomy). Follow these instructions at home: ??? Take [id number] and prescription medicines only as told by your health care provider. ??? Do not drive or use heavy machinery while taking prescription pain medicine. ??? Try to avoid activities that cause pain, including sexual activity. ??? Keep all follow-up visits as told by your health care provider. This is important. Contact a health care provider if: ??? You have pain in the area between your hip bones (pelvic area) that occurs: ??? Before, during, or after your period. ??? In between your period and gets worse during your period. ??? During or after sex. ??? With bowel movements or urination, especially during your period. ??? You have problems getting . ??? You have a fever. Get help right away if: ??? You have severe pain that does not get better with medicine. ??? You have severe nausea and vomiting, or you cannot eat without vomiting. ??? You have pain that affects only the lower, right side of your abdomen. ??? You have abdominal pain that gets worse. ??? You have abdominal swelling. ??? You have blood in your stool. This information is not intended to replace advice given to you by your health care provider. Make sure you discuss any questions you have with your health care provider. Document Released: 04/28/2001 Document Revised: 04/13/2018 Document Reviewed: 10/01/2016 [email or web address] Patient Education ?? 2020 [employer] Follow Up Care 02/27/2020 09:47:03 With:ERIN RAMOS Address:Unknown When:3 to 5 days Comments:Call for followup appointment
--- OUTSIDE RECORDS SUMMARY | 2022-11-20 17:52 | XMS_ITS | Continuity of Care Document ---
Author Name Unknown Organization [facility] Address [address] [place] [address]- Care Team Providers Care Stain Maker Name Role Phone Non-Staff, Physician Primary Care Physician Unav ailable Encounter BVT Date(s): 05/03/20 - 05/03/[address] [address]- Encounter Diagnosis Acute urinary retention(Discharge Diagnosis) - 05/03/20 Primary genital herpes simplex infection(Discharge Diagnosis) - 05/03/20 Discharge Disposition: Home or Self Care Attending Physician: FARHAD CHAN Admitting Physician: FARHAD CHAN Allergies, Adverse Reactions, Alerts Substance Reaction Severity Status Latex Itching Active penicillins Edema Hives Active Compazine Edema Active Toradol Nausea Active Assessment and Plan Extracted from: Title:General Medical Problem *ED Author:FARHAD CHAN Date:05/03/20 History of Present Illness Additional history: A 20-year-old female presents emergency care center with a chief complaint of genital herpes pain and urinary retention, that began Monday or Monday. The patient had intercourse with her boyfriend without a condom on Monday night. On either Monday or Monday, the patient began feeling irritation which worsened. The patient was seen at [facility] and diagnosed with genital herpes. She was then seen at because the pain was more severe. She was transferred to [facility] to be near an OB team. The patient has been taking 3 medications to help with the outbreak but has been suffering from moderate to severe pain. She feels that the vaginal lesions are spreading to her perirectal area. She has been having hesitancy, difficulty emptying her bladder. She was told that this may be a response from the medications that she is on. The patient takes ice, Tylenol, ibuprofen and is not having any relief. Her discomfort is severe and she is come here for further evaluation. The patient is not experiencing fever, chills, facial rash, visual changes or loss, ocular irritation, neck stiffness or confusion. She does have bladder pressure and some pelvic pain.. Review of Systems Constitutional symptoms: Negative except [...] Itching. Penicillins- Edema and hives. Toradol- Nausea.. Past Medical/ Family/ Social History Medical history: No active or resolved past medical history items have been selected or recorded.. Surgical history: Laparoscopic excision of pelvic endometriosis ([id number]) on 03/17/2020 at 20 Years. Comments: 04/16/2020 13:50 ERIN VERMA MD mild endometriosis otherwise normal anatomy Laparoscopic appendectomy ([id number]) in the month of 11/2019 at 19 Years. Comments: 03/04/2020 23:03 ERIN XIONG MD noted to have endometriosis on appendix D&C - Dilatation and curettage ([id number]) in the month of 06/2018 at 18 Years. Comments: 02/20/2020 10:14 ERIN XIONG MD menorrhagia Laparoscopy with aspiration ([id number]) in the month of 01/2018 at 18 Years. Comments: 02/20/2020 10:14 ERIN XIONG MD aspiration of endometrioma. Family history: Diabetes mellitus type 2 Grandfather (Paternal) Cervical cancer Grandmother (Maternal) Cancer Mother Comments: 03/04/2020 13:15 EDT - Natalie Cade HAY BUCKLER Possibly breast ? per pt. Heart Disease Father Grandfather (Paternal) . 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 Exercise Exercise frequency: Daily. Exercise type: Walking. [...] . Physical Examination Vital Signs Vital Signs 05/03/2020 16:42 EST Temperature Temporal 36.5 DegC Peripheral Pulse Rate 117 bpm HI Respiratory Rate 18 br/min Systolic Blood Pressure 128 mmHg Diastolic Blood Pressure 89 mmHg SpO2 99 % . Measurements 05/03/2020 16:45 EST Height/Length Dosing 162.000 cm Weight Dosing 76.600 kg 05/03/2020 16:42 EST Height 162.000 cm Weight 76.600 kg . Basic Oxygen Information 05/03/2020 16:42 EST Oxygen Therapy Room air . General: Alert, mild distress. Skin: Ulcerations consistent with genital herpes outbreak around the introitus and progressing down the perineum and around the rectum but not necessarily on the rectum. These are less ulcerated and severe as the ones around the enteritis. I note approximately 10 or 12 lesions total. Nothing beyond this location. No other vaginal abnormality on exterior inspection. . Head: Normocephalic, atraumatic. Neck: Supple. Eye: Extraocular movements are intact, normal conjunctiva. Ears, nose, mouth and throat: Oral mucosa moist. Cardiovascular: Normal peripheral perfusion. Respiratory: Respirations are non-labored, Symmetrical chest wall expansion. Gastrointestinal: Suprapubic abdominal discomfort feels like my bladder is full. Normal bowel sounds, no masses, no other discomfort.. Neurological: Alert and oriented to person, place, time, and situation, No focal neurological deficit observed, normal sensory observed, normal motor observed, normal speech observed, normal coordination observed. Medical Decision Making Rationale: Uncomfortable 20-year-old female here with first genital herpes outbreak that began approximately 6 days ago and has been severe, not treated well with Tylenol, ibuprofen, ice. The lidocaine cream is helpful. The patient is in severe discomfort and has had hesitancy and she feels retention. She has to push, to get urine out. She feels that this may be a result of the medications that she is on. Plan for urinalysis, bladder scan, possibly Perez catheter and discharged with likely narcotic pain medications to help her discomfort.. Results review: Lab results : Lab View 05/03/2020 17:05 EST UA Color Yellow UA Clarity Cloudy UA Spec Grav 1.025 UA Bili Negative UA pH 6.5 UA Urobilinogen 0.2 EU/dL UA Blood Trace-intact UA Glucose Negative UA Ketones Neg UA Protein Negative UA Nitrite Negative UA Leuk Est Small Urine Culture? Yes Micro? Indicated UA WBC 5-10 UA RBC 3-5 UA Bacteria Moderate UA Squam Epi Many Human Chorionic Gonadotropin Qualitative Negative , Interpretation Urinalysis is inconclusive at this time. The patient appears to have a contaminated sample. She will follow up with [facility] to see if she has continued urinary retention.. Notes: Michelle has s a post void residual volume of between 130-170 cc of urine indicating urinary retention. This is a rare complication of anogenital herpes infection. Will discuss with women's health.. Reexamination/ Reevaluation Vital signs Basic Oxygen Information 05/03/2020 16:42 EST Oxygen Therapy Room air Impression and Plan Diagnosis Acute urinary retention ([id number] R33.8, Discharge, Medical) Primary genital herpes simplex infection ([id number] A60.00, Discharge, Medical) Calls-Consults - 05/03/2020 18:00:00 , Jacqueline Jeff CNM, recommends Perez, OB follow up in 1- 2 days.. Plan Condition: Improved. Disposition: Medically cleared, Discharged: time 05/03/2020 19:01:00. Prescriptions: Launch prescriptions Pharmacy: oxyCODONE 5 mg oral tablet (Prescribe): 5 mg = 1 tab(s), Oral, q6hr, for 3 day(s), Take for severe pain not controlled with other meds., 10 tab(s), 0 Refill(s). Patient was given the following educational materials: Genital Herpes. Limitations: Limited activity. Follow up with: ; [facility] [place] [facility] Within 1 to 2 days, [facility] [place] [facility] Within 1 to 2 days. Counseled: Patient, Regarding diagnosis, Regarding diagnostic results, Regarding treatment plan, Regarding prescription, Patient indicated understanding of instructions. Diagnostic Tests Pending * Culture Urine 05/03/20 Functional Status 05/03/20 Recent Travel History No recent travel Family Member Travel History No recent t ravel COVID-19 Screening None Medications busPIRone 10 mg oral tablet mg [...] Daily, # 30 tab(s), 11 Refill(s), Pharmacy: [facility], 1tab(s) Oral Daily Start Date: 02/19/20 Status: Ordered oxyCODONE 5 mg oral tablet 5 mg = 1 tab(s), Oral, q6hr, Take for severe pain not controlled with other meds., X 3 day(s), # 10tab(s), 0 Refill(s), 05/06/20, Pharmacy: [email or web address] [place], [place] [address], 1 tab(s) Oral q6hr,x3 day(s),Instr:Take for severe pain not controlled with oth... Start Date: 05/03/20 Stop Date: 05/06/20 Status: Ordered Phenergan 25 mg rectal suppository 25 mg = 1 supp, Per rectum, q8hr, # 21 supp, 0 Refill(s), Pharmacy: [facility] [address], 1 supp Per rectum q8hr Start Date: 03/04/20 Status: Ordered Protonix 40 mg oral delayed release tablet 40 mg = 1 tab(s), Oral, Daily, # 15 tab(s), 0 Refill(s), Pharmacy: [facility], 1tab(s) Oral Daily Start Date: 03/26/20 Status: Ordered Zofran ODT 4 mg oral tablet, disintegrating 4 mg = 1 tab(s), Oral, q8hr, PRN PRN Nausea/Vomiting, # 30 tab(s), 0 Refill(s), Pharmacy: [facility], 1 tab(s) Oral q8hr,PRN:Nausea/Vomiting Start [...] Urine Standard (Urine Pre gnancy Test Standard) 05/03/20 Urinalysis Microscopic Standard 05/03/20 Urinalysis with Culture, if indicated [facility] [place] 05/03/20 Most recent to oldest [Reference Range]: 1 Urine Culture? Yes (05/03/20 5:05 PM) UA Bacteria [None Seen] Moderate *ABN* (05/03/20 5:05 PM) UA Bili [Negative] Negative (05/03/20 5:05 PM) UA Blood [Negative] Trace-intact *ABN* (05/03/20 5:05 PM) UA Color Yellow (05/03/20 5:05 PM) UA Glucose [Negative] Negative (05/03/20 5:05 PM) UA Ketones [Neg] Neg (05/03/20 5:05 PM) UA Leuk Est [Negative] Small *ABN* (05/03/20 5:05 PM) UA Nitrite [Negative] Negative (05/03/20 5:05 PM) UA Protein [Negative] Negative (05/03/20 5:05 PM) UA RBC [0-2] 3-5 *ABN* (05/03/20 5:05 PM) UA Urobilinogen 0.2 EU/dL (05/03/20 5:05 PM) UA WBC 5-10 *ABN* (05/03/20 5:05 PM) UA pH 6.5 (05/03/20 5:05 PM) UA Spec Grav 1.025 (05/03/20 5:05 PM) Micro? [Not Indicated] Indicated *ABN* (05/03/20 5:05 PM) UA Clarity Cloudy *ABN* (05/03/20 5:05 PM) UA Squam Epi Many *ABN* (05/03/20 5:05 PM) Human Chorionic Gonadotropin Qualitative Negative (05/03/20 5:05 PM) Vital Signs Most recent to oldest [Reference Range]: 1 2 Temperature Temporal [36.3-37.8 DegC] 36 .5 DegC (05/03/20 4:42 PM) Peripheral Pulse Rate [60-100 bpm] 118 b pm *HI* (05/03/20 7:32 PM) 117 bpm *HI* (05/03/20 4:42 PM) Respiratory Rate [14-20 br/min] 18 br/mi n (05/03/20 7:32 PM) 18 br/min (05/03/20 4:42 PM) Blood Pressure [90-140/60-90 mmHg] 117/7 0mmHg (05/03/20 7:32 PM) 128/89mmHg (05/03/20 4:42 PM) SpO2 [92-100 %] 98 % (05/03/20 7:32 PM) 99 % (05/03/20 4:42 PM) Height 162.000 cm (05/03/20 4:42 PM) Height/Length Dosing 162.000 cm (05/03/20 4:45 PM) Weight 76.600 kg (05/03/20 4:42 PM) Weight Dosing 76.600 kg (05/03/20 4:45 PM) Social History Social History Type Response Smoking Status Never (less than 100 in lifetime) entered on: 02/18/20 Sex Hospital Discharge Instructions Patient Education 05/03/2020 19:02:51 Genital Herpes 1. Call [place] [facility] tomorrow to arrange follow-up. 2. Take medications as directed. Oxycodone 5 mg can be taken every 6 hours for moderate to severe pain. Take a stool softener while you are on this medication. Use lidocaine Urojet as needed. 3. Return if new or worsening symptoms occur. Genital Herpes Genital herpes is a common sexually transmitted infection (STI) that is caused by a virus. The virus spreads from person to person through sexual contact. Infection can cause itching, blisters, and sores around the genitals or rectum. Symptoms may last several days and then go away This is called an outbreak. However, the virus remains in your body, so you may have more outbreaks in the future. The time between outbreaks varies and can be months or years. Genital herpes affects men and women. It is particularly concerning for women because the virus can be passed to the baby during delivery and can cause serious problems. Genital herpes is also a concern for people who have a weak disease-fighting (immune) system. What are the causes? This condition is caused by the herpes simplex virus (HSV) type 1 or type 2. The virus may spread through: ??? Sexual contact with an infected person, including vaginal, anal, and oral sex. ??? Contact with fluid from a herpes sore. ??? The skin. This means that you can get herpes from an infected partner even if he or she does not have a visible sore or does not know that he or she is infected. What increases the risk? You are more likely to develop this condition if: ??? You have sex with many partners. ??? You do not use latex condoms during sex. What are the signs or symptoms? Most people do not have symptoms (asymptomatic) or have mild symptoms that may be mistaken for other skin problems. Symptoms may include: ??? Small red bumps near the genitals, rectum, or mouth. These bumps turn into blisters and then turn into sores. ??? Flu-like symptoms, including: ??? Fever. ??? Body aches. ??? Swollen lymph nodes. ??? Headache. ??? Painful urination. ??? Pain and itching in the genital area or rectal area. ??? Vaginal discharge. ??? Tingling or shooting pain in the legs and buttocks. Generally, symptoms are more severe and last longer during the first (primary) outbreak. Flu-like symptoms are also more common during the primary outbreak. How is this diagnosed? Genital herpes may be diagnosed based on: ??? A physical exam. ??? Your medical history. ??? Blood tests. ??? A test of a fluid sample (culture) from an open sore. How is this treated? There is no cure for this condition, but treatment with antiviral medicines that are taken by mouth(orally) can do the following: ??? Speed up healing and relieve symptoms. ??? Help to reduce the spread of the virus to sexual partners. ??? Limit the chance of future outbreaks, or make future outbreaks shorter. ??? Lessen symptoms of future outbreaks. Your health care provider may also recommend pain relief medicines, such as aspirin or ibuprofen. Follow these instructions at home: Sexual activity ??? Do not have sexual contact during active outbreaks. ??? Practice safe sex. Latex condoms and female condoms may help prevent the spread of the herpes virus. General instructions ??? Keep the affected areas dry and clean. ??? Take [id number] and prescription medicines only as told by your health care provider. ??? Avoid rubbing or touching blisters and sores. If you do touch blisters or sores: ??? Wash your hands thoroughly with soap and water. ??? Do not touch your eyes afterward. ??? To help relieve pain or itching, you may take the following actions as directed by your health care provider: ??? Apply a cold, wet cloth (cold compress) to affected areas 4???6 times a day. ??? Apply a substance that protects your skin and reduces bleeding (astringent). ??? Apply a gel that helps relieve pain around sores (lidocaine gel). ??? Take a warm, shallow bath that cleans the genital area (sitz bath). ??? Keep all follow-up visits as told by your health care provider. This is important. How is this prevented? Use condoms. Although anyone can get genital herpes during sexual contact, even with the use ofa condom, a condom can provide some protection. ??? Avoid having multiple sexual partners. ??? Talk with your sexual partner about any symptoms either of you may have. Also, talk with your partner about any history of STIs. ??? Get tested for STIs before you have sex. Ask your partner to do the same. ??? Do not have sexual contact if you have symptoms of genital herpes. Contact a health care provider if: ??? Your symptoms are not improving with medicine. ??? Your symptoms return. ??? You have new symptoms. ??? You have a fever. ??? You have abdominal pain. ??? You have redness, swelling, or pain in your eye. ??? You notice new sores on other parts of your body. ??? You are a woman and experience bleeding between menstrual periods. ??? You have had herpes and you become or plan to become . Summary ??? Genital herpes is a common sexually transmitted infection (STI) that is caused by the herpes simplex virus (HSV) type 1 or type 2. ??? These viruses are most often spread through sexual contact with an infected person. ??? You are more likely to develop this condition if you have sex with many partners or you have unprotected sex. ??? Most people do not have symptoms (asymptomatic) or have mild symptoms that may be mistaken for other skin problems. Symptoms occur as outbreaks that may happen months or years apart. ??? There is no cure for this condition, but treatment with oral antiviral medicines can reduce symptoms, reduce the chance of spreading the virus to a partner, prevent future outbreaks, or shorten future outbreaks. This information is not intended to replace advice given to you by your health care provider. Make sure you discuss any questions you have with your health care provider. Document Released: 04/28/2001 Document Revised: 11/05/2018 Document Reviewed: 03/31/2017 [employer] Patient Education ?? 2020 [employer] Follow Up Care 05/03/2020 16:33:41 With:ANTONINA Motta [facility] Address: [address] [place] [address] [address] [place] [address]- Business (1) When:1 to 2 days
--- OUTSIDE RECORDS SUMMARY | 2022-11-20 17:52 | XMS_ITS | Continuity of Care Document ---
Author Name Unknown Organization [facility] Address [address] [place] [address] Encounter BVT Date(s): 02/19/20 - 02/19/20 [facility] [address] [facility] [place] [address]- Encounter Diagnosis Chronic nausea(Discharge Diagnosis) - 02/19/20 Endometriosis of pelvis(Discharge Diagnosis) - 02/19/20 Chronic female pelvic pain(Discharge Diagnosis) - 02/19/20 Discharge Disposition: Home Attending Physician: ERIN POWER MD Allergies, Adverse Reactions, Alerts Substance Reaction Severity Status Latex Itching Active penicillins Edema Hives Active Compazine Edema Active Assessment and Plan Extracted from: Title:Office Visit Note-[employer] Author:JESU POWER MD Date:02/19/20 Chronic female pelvic pain?? R10.2 Chronic nausea??R11.0 Endometriosis of pelvis??N80.3 ??20 yo P0 with hx of chronic pelvic pain, nausea and dx of laparoscopy.?? She has been treated with medical suppression with mixed success. We reviewed her dx, prior surgery and treatment as well as side effects and options. She is not interested in further surgery at this time, nor do I recommend it.? She reports that she has felt the most comfortable while on??Lupron. We discussed??Orilissa- oral??GnRh antagonist.?We reviewed side effects and retirement options.?? Use on Norethindrone for moderation of side effects. recommend lower dose to decrease side effects and allow longer suppression.?? With completion of course consider DEBORA or Mirena. Other options include surgery or?? AI. Importance of management of moods and risk of worsening depression was discussed. We also discussed the importance of completion of GI evaluation for nausea as this is not a typical symptom of endometriosis.?? Questions answered.?? Total visit was 50 minutes ?? Plan Elagolix 150 mg q day( up to 24months)- if symptoms do not improve consider 200 BID(up to 6 months) If stable on 150 per day may be used for up to 24 months F/U in 4-6 weeks Call with questions or concerns Repeat U/s in 6 weeks Consider surgery if cyst is still present and treatment of septum prior to may be recommended Orders: elagolix, 150 mg = 1 tab(s), Oral, Daily, # 30 tab(s), 11 Refill(s), Pharmacy: [facility] #[id number], 1 tab(s) Oral Daily Future Appointments Functional Status 02/19/20 Recent Travel History No recent travel COVID-19 Screening None Medications norethindrone 5 mg oral tablet 10 mg = 2 tab(s), Oral, Daily, # 180 tab(s), 0 Refill(s) Start Date: 02/18/20 Status: Ordered Orilissa 150 mg oral tablet 150 mg = 1 tab(s), Oral, Daily, # 30 tab(s), 11 Refill(s), Pharmacy: [id number], 1tab(s) Oral Daily Start Date: 02/19/20 Status: Ordered sertraline Oral, Daily, 0 Refill(s) Start Date: 02/18/20 Status: Ordered Zofran 4 mg oral tablet mg tab(s), Oral, q8hr, 0 Refill(s) Start Date: 02/18/20 Status: Ordered Zofran ODT 4 mg oral tablet, disintegrating 4 mg = 1 tab(s), Oral, TID, # 9 tab(s), 0 Refill(s) Start Date: 02/18/20 Stop Date: 02/21/20 Status: Ordered Problem List Condition Effective Dates Status Health Status Inform ant Asthma(Confirmed) Active Endometriosis(Confirmed) Active Procedures Procedure Date Related Diagnosis Body Site Status D&C - Dilatation and curettage 1 06/2018 Completed Laparoscopy with aspiration 2 01/2018 Completed 1menorrhagia 2aspiration of endometrioma Vital Signs Most recent to oldest [Reference Range]: 1 Peripheral Pulse Rate [60-100 bpm] 75 bp m (10/7/20 1:27 PM) Blood Pressure [90-140/60-90 mmHg] 118/5 8mmHg (02/19/20 1:27 PM) Height 162 cm (02/19/20 1:27 PM) Height/Length Measured (inches) 63.8 in (02/19/20 1:27 PM) Weight 73.48 kg (02/19/20 1:27 PM) Weight Measured (lbs) 161.656 lb (02/19/20 1:27 PM) BSA Measured 1.82 m2 (02/19/20 1:27 PM) Body Mass Index 28 kg/m2 (02/19/20 1:27 PM) Social History Social History Type Response Smoking Status Never (less than 100 in lifetime) entered on: 02/18/20 Sex Hospital Discharge Instructions Patient Education 02/20/2020 10:34:08 Nausea, Adult Nausea, Adult Nausea is the feeling that you have an upset stomach or that you are about to vomit. Nausea on its own is not usually a serious concern, but it may be an early sign of a more serious medical problem.As nausea gets worse, it can lead to vomiting. If vomiting develops, or if you are not able to drink enough fluids, you are at risk of becoming dehydrated. Dehydration can make you tired and thirsty,cause you to have a dry mouth, and decrease how often you urinate. Older adults and people with other diseases or a weak disease-fighting system (immune system) are at higher risk for dehydration. The main goals of treating your nausea are: ??? To relieve your nausea. ??? To limit repeated nausea episodes. ??? To prevent vomiting and dehydration. Follow these instructions at home: Watch your symptoms for any changes. Tell your health care provider about them. Follow these instructions as told by your health care provider. Eating and drinking ??? Take an oral rehydration solution (ORS). This is a drink that is sold at pharmacies and retail stores. ??? Drink clear fluids slowly and in small amounts as you are able. Clear fluids include water, icechips, low-calorie sports drinks, and fruit juice that has water added (diluted fruit juice). ??? Eat bland, eilw-ne-aczolo foods in small amounts as you are able. These foods include bananas, applesauce, rice, lean meats, toast, and crackers. ??? Avoid drinking fluids that contain a lot of sugar or caffeine, such as energy drinks, sports drinks, and soda. ??? Avoid alcohol. ??? Avoid spicy or fatty foods. General instructions ??? Take [id number]-gqqatwd and prescription medicines only as told by your health care provider. ??? Rest at home while you recover. ??? Drink enough fluid to keep your urine pale yellow. ??? Breathe slowly and deeply when you feel nauseous. ??? Avoid smelling things that have strong odors. ??? Wash your hands often using soap and water. If soap and water are not available, use hand glassware selector. ??? Make sure that all people in your household wash their hands well and often. ??? Keep all follow-up visits as told by your health care provider. This is important. Contact a health care provider if: ??? Your nausea gets worse. ??? Your nausea does not go away after two days. ??? You vomit. ??? You cannot drink fluids without vomiting. ??? You have any of the following: ??? New symptoms. ??? A fever. ??? A headache. ??? Muscle cramps. ??? A rash. ??? Pain while urinating. ??? You feel light-headed or dizzy. Get help right away if: ??? You have pain in your chest, neck, arm, or jaw. ??? You feel extremely weak or you faint. ??? You have vomit that is bright red or looks like coffee grounds. ??? You have bloody or black stools or stools that look like tar. ??? You have a severe headache, a stiff neck, or both. ??? You have severe pain, cramping, or bloating in your abdomen. ??? You have difficulty breathing or are breathing very quickly. ??? Your heart [...] or that you are about to vomit. Nausea on its own is not usually a serious concern, but it may be an early sign of a more serious medical problem. ??? If vomiting develops, or if you are not able to drink enough fluids, you are at risk of becoming dehydrated. ??? Follow recommendations for eating and drinking and take srhe-bov-qlnnwtl and prescription medicines only as told by your health care provider. ??? Contact a health care provider right away if your symptoms worsen or you have new symptoms. ??? Keep all follow-up visits as told by your health care provider. This is important. This information is not intended to replace advice given to you by your health care provider. Make sure you discuss any questions you have with your health care provider. Document Released: 06/08/2005 Document Revised: 10/09/2018 Document Reviewed: 10/09/2018 [employer] Patient Education ?? 2020 [employer]
--- OUTSIDE RECORDS SUMMARY | 2022-11-20 17:52 | XMS_ITS | Continuity of Care Document ---
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 Name Role Phone RICARDO RUTH Primary Care Physician [phone] Encounter BVT Date(s): 05/05/21 - 05/05/[address] [address] [phone] Encounter Diagnosis Nausea vomiting and diarrhea(Discharge Diagnosis) - 05/05/21 Bruising(Discharge Diagnosis) - 05/05/21 Abdominal pain(Discharge Diagnosis) - 05/05/21 Discharge Disposition: Home or Self Care Attending Physician: Magdi Slaughter MD Admitting Physician: Magdi Slaughter MD Allergies, Adverse Reactions, Alerts Substance Reaction Severity Status droperidol Moderate Active Latex Itching Active penicillins Edema Hives Active Haldol Moderate Active Compazine Edema Active Toradol Nausea Active Assessment and Plan Extracted from: Title:General Medical Problem *ED Author:Magdi Slaughter MD Date:05/05/21 History of Present Illness 21yo F w history of endometriosis s/p laparoscopy 02/2021 who presents with lower abdominal pain, bruising, and NV. This is the patient's fourth ED visit in the past week for these symptoms. She was previously seen at [facility], and once in this ED, all without clear explanation for her symptoms. At her last ED visit here, 05/04, she had labs to evaluate for coagulopathy and a repeat CT scan, all of which were normal. She was discharged on oral pain medication and advised to follow up with her OBGYN closely. She states that today she has been unable to keep anything down, persistently nauseated and vomiting. Her abdominal pain, located in the lower abdomen, worse on the L, has been worsening despite taking ibuprofen and Tylenol at home. She has not been taking the oxycodone she was prescribed. She also noted a new bruise in her LLQ, just lateral to her prior bruising, which is healing. She continues to deny trauma to the area or physical abuse. She reports that she has noted blood in her urine off and on, which is not a new symptom for her. Otherwise no other bleeding symptoms - no blood in her vomit, no blood in her stools, no bleeding gums. No fevers. Review of Systems Constitutional symptoms: No fever, Skin symptoms: Bruising . ENMT symptoms: No epistaxis. Respiratory symptoms: No shortness of breath, Cardiovascular symptoms: No chest pain, Gastrointestinal symptoms: Abdominal pain. Genitourinary symptoms: Hematuria, No vaginal bleeding, Neurologic symptoms: No headache, Hematologic/Lymphatic symptoms: Bruising tendency, No gum bleeding, Allergy/immunologic symptoms: No impaired immunity, Health Status Allergies: Allergic Reactions (All) Moderate Droperidol- No reactions were documented. Haldol- No reactions were documented. Severity Not [...] for 30 day(s), 60 tab(s), 3 Refill(s) oxyCODONE 5 mg oral capsule: 5 mg = 1 cap(s), Oral, q6hr, PRN: for pain, 12 cap(s), 0 Refill(s) Documented Medications Documented Benadryl 25 mg [...] Surgical history: Laparoscopic excision of pelvic endometriosis ([id number]) on 03/17/2020 at 20 Years. Comments: 04/16/2020 13:50 ERIN VERMA MD mild endometriosis otherwise normal anatomy Laparoscopic appendectomy ([id number]) in the month of 11/2019 at 19 Years. Comments: 03/04/2020 23:03 ERIN XIONG MD noted to have endometriosis on appendix D&C - Dilatation and curettage ([id number]) in the month of 06/2018 at 18 Years. 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 Exercise Exercise frequency: Daily. Exercise type: Walking. [...] . Physical Examination Vital Signs Vital Signs 05/05/2021 21:51 EST Temperature Temporal 37.1 DegC Temperature Temporal (DegF) 98.78 DegF Peripheral Pulse Rate 79 bpm Respiratory Rate 18 br/min Systolic Blood Pressure 116 mmHg Diastolic Blood Pressure 71 mmHg Mean Arterial Pressure, Cuff 86 mmHg Mean Arterial Pressure Cufff-Monitor 86 mmHg SpO2 97 % 05/05/2021 20:18 EST Temperature Temporal 37.3 DegC Peripheral Pulse Rate 81 bpm Respiratory Rate 17 br/min Systolic Blood Pressure 110 mmHg Diastolic Blood Pressure 68 mmHg Mean Arterial Pressure, Cuff 82 mmHg Mean Arterial Pressure Cufff-Monitor 82 mmHg SpO2 99 % 05/05/2021 17:38 EST Temperature Temporal 37.2 DegC Peripheral Pulse Rate 80 bpm Respiratory Rate 16 br/min Systolic Blood Pressure 130 mmHg Diastolic Blood Pressure 69 mmHg SpO2 97 % 05/04/2021 4:47 EST Peripheral Pulse Rate 86 bpm Respiratory Rate 16 br/min Systolic Blood Pressure 117 mmHg Diastolic Blood Pressure 71 mmHg SpO2 98 % 05/04/2021 2:21 EST Peripheral Pulse Rate 77 bpm Respiratory Rate 16 br/min Systolic Blood Pressure 118 mmHg Diastolic Blood Pressure 78 mmHg SpO2 98 % . Measurements 05/05/2021 17:44 EST Height/Length Dosing 164.000 cm Weight Dosing 92.900 kg 05/05/2021 17:38 EST Height/Length Estimated 164.000 cm Weight Estimated 92.900 kg 05/04/2021 4:47 EST Weight Estimated 86.180 kg . Basic Oxygen Information 05/05/2021 17:38 EST Oxygen Therapy Room air 05/04/2021 2:21 EST Oxygen Therapy Room air . General: Alert, no acute distress. Skin: Warm, dry, Bruising in various stages of healing across the lower quadrants of the abdomen and a single bruise in the LUQ just under her L bra strap No periumbilical or flank bruising TTP, mostly at the site of the new bruising No erythema . Head: Normocephalic, atraumatic. Neck: Trachea midline. Eye: Normal conjunctiva. Cardiovascular: Regular rate and rhythm. Respiratory: Lungs are clear to auscultation. Gastrointestinal: Soft, Tenderness overlying bruising, as noted above. Back: Nontender, No bruising. Musculoskeletal: No hemarthrosis or joint swelling. Neurological: Alert and oriented to person, place, time, and situation. Psychiatric: Cooperative. Medical Decision Making Results review: Lab results : Lab View 05/05/2021 20:32 EST UA Color Red UA Clarity CLEAR UA Spec Grav 1.010 UA Bili NEGATIVE UA pH 7.0 UA Urobilinogen 0.2 EU/dL UA Blood Large UA Glucose NEGATIVE UA Ketones NEGATIVE UA Protein Trace UA Nitrite NEGATIVE UA Leuk Est Small Urine Culture? Yes Micro? Indicated UA WBC 0-2 UA RBC >100 UA Bacteria Moderate UA Squam Epi Moderate Human Chorionic Gonadotropin Qualitative Negative 05/05/2021 19:03 EST WBC 5.4 x10(3)/uL RBC 4.47 x10(6)/uL Hgb 11.2 gm/dL LOW Hct 35.3 % MCV 79.0 fL LOW MCH 25.1 pg LOW MCHC 31.7 gm/dL LOW RDW-CV 15.5 % HI Platelet 191 x10(3)/uL MPV 11.4 fL Neutro Auto 55.1 % Lymph Auto 35.6 % [place] Auto 6.6 % Eos Auto 1.8 % Basophil Auto 0.7 % Immature Gran % 0.20 % NRBC Auto Pct 0.00 % Neutro Absolute 3.00 x10(3)/uL Lymph Absolute 1.94 x10(3)/uL [place] Absolute 0.36 x10(3)/uL Eos Absolute 0.10 x10(3)/uL Basophil Absolute 0.04 x10(3)/uL Immature Gran Absolute 0.01 x10(3)/uL NA NRBC Absolute 0.00 x10(3)/uL PT 12.9 second(s) INR 0.99 NA Sodium Lvl 140 mmol/L Potassium Lvl 3.6 mmol/L Chloride 103 mmol/L CO2 26 mmol/L AGAP 14.6 mmol/L BUN 5 mg/dL LOW Creatinine 0.59 mg/dL GFR NonAfrican Citizen Of [place] 127 mL/min/1.73 m2 Glucose Lvl 85 mg/dL Calcium Lvl 9.5 mg/dL Total Protein 7.5 gm/dL Albumin Lvl 4.70 gm/dL Alk Phos 56 IntUnit/L ALT 34 IntUnit/L HI AST 33 IntUnit/L HI Bili Total 0.2 mg/dL Bili Direct <0.2 mg/dL Lipase Lvl 22 IntUnit/L Osmolality 275.9 mOsm/kg 05/04/2021 0:33 EST UA Color ORANGE UA [...] Amorph Urate Identified UA Squam Epi Moderate . Unclear etiology of the patient's symptoms. She denies trauma or abuse. She has had repeated evaluations in recent days, including multiple CT scans without clear etiology. She had labs performed that did not show evidence of a coagulopathy. We will again check screening labs. I am hesitant to perform a third CT scan on this young woman who has had two recent scans without any concerning findings. She has a history of endometriosis, which could explain her pain but not the bruising. She has chronic hematuria, no evidence of stone or hydro on her previous CT scan. No other new bleeding or bruising symptoms. If screening labs show significant difference, would reconsider CT scan. Reexamination/ Reevaluation Vital signs Basic Oxygen Information 05/05/2021 17:38 EST Oxygen Therapy Room air 05/04/2021 2:21 EST Oxygen Therapy Room air The patient's labs were relatively stable from her prior visit - hemoglobin down from prior but remains >10. Her urine studies continue to show hematuria, which is not new. Her symptoms initially improved with treatment in the ED and then worsened again - she stated that she vomited in the bathroom and had worsening pain again in the same location as before. I discussed her results with her. I provided reassurance regarding her recent CT scan. We discussed management of her worsening symptoms. I recommended that we trial additional IV anti-emetics in an attempt to allow her pain to be controlled with oral pain medication in order to ensure she is able to take her home pain regimen. She requested IV pain medication, and I again stated that I preferred to treat her nausea first and then her pain with oral medications. Shortly after she agreed to this plan, she requested juice and crackers and to be discharged. I re-evaluated her and she was sitting up, eating crackers. We discussed home care, return precautions and follow up. She verbalized understanding and agreement with the plan of care. Impression and Plan Diagnosis Nausea vomiting and diarrhea (IVB75-HI R11.2, Discharge, Medical) Plan Condition: Stable. Disposition: Discharged: Time 05/05/2021 22:18:00, to home. Patient was given the following educational materials: General Discharge (SMURRAY), General Discharge (SMURRAY). Follow up with: RICARDO RUTH Within 1 to 2 days Call for followup appointment; ANTONINA Motta [employer] Within 1 to 2 days Call for followup appointment. Counseled: Patient, Regarding diagnosis, Regarding diagnostic results, Regarding treatment plan, Patient indicated understanding of instructions. Orders: Launch Orders Patient Care: Discharge Patient (Order): 05/05/2021 22:22 EST. Diagnostic Tests Pending * Culture Urine 05/05/21 Functional Status 05/05/21 COVID-19 Screening None Medications Benadryl 25 mg oral capsule 25 mg = 1 cap(s), Oral, Daily, 0 Refill(s) Start Date: 09/27/20 Status: Ordered Colace Oral, BID, 0 Refill(s) Start Date: 09/27/20 Status: Ordered Diflucan 150 mg oral tablet 150 mg = 1 tab(s), Oral, Once, # 1 tab(s), 0 Refill(s), [facility]acy: [facility], 1 tab(s) Oral Once Start Date: [...] bedtime), # 70 gm, 0 Refill(s), Pharmacy: [facility], 1 marta VAG Once a day (at bedtime),x5 day(s) Start Date: 08/06/20 Stop Date: 08/11/20 Status: Ordered MetroGel-Vaginal 0.75% vaginal gel with applicator 1 marta, VAG, Once, # 70 gm, 0 Refill(s), Pharmacy: [facility], 1 marta VAG Once Start Date: 07/31/20 Status: Ordered MiraLax 17 gm 1 packet(s), Oral, Daily, 0 Refill(s) Start Date: 09/27/20 Status: Ordered montelukast 4 mg oral granule mg EA, Oral, Daily, 0 Refill(s) Start Date: 09/27/20 Status: Ordered norethindrone 5 mg oral tablet 10 mg = 2 tab(s), Oral, Daily, # 60 tab(s), 3 Refill(s), [facility]acy: [facility] [place] [address] ZEINAB, 2tab(s) Oral Daily,x30 day(s) Start Date: 05/20/20 Stop Date: 09/17/20 Status: Ordered omeprazole Oral, Daily, 0 Refill(s) Start Date: 09/27/20 Status: Ordered oxyCODONE 5 mg oral capsule 5 mg = 1 cap(s), Oral, q6hr, PRN PRN for pain, # 12 cap(s), 0 Refill(s), 05/07/21, Pharmacy: [facility], 1 cap(s) Oral q6hr,PRN:for pain, 164, cm, 05/03/21 22:43:00 EST, Height/Length Dosing, 86.18, kg, 05/03/21 22:43:00 EST, Weight Dosing Start Date: 05/04/21 Stop Date: 05/07/21 Status: Ordered ProAir HFA INH, q6hr, 0 Refill(s) Start Date: 09/27/20 Status: Ordered Protonix 40 mg oral delayed release tablet 40 mg = 1 tab(s), Oral, Daily, # 15 tab(s), 0 Refill(s), [facility]acy: [facility], 1tab(s) Oral Daily Start Date: 03/26/20 [...] Nausea/Vomiting, # 30 tab(s), 0 Refill(s), Pharmacy: [facility], 1 tab(s) Oral q8hr,PRN:Nausea/Vomiting [...] Laboratory List Name Date Test Urine Standard 05/05/21 Urinalysis with Culture, if indicated [facility] 05/05/21 Automated Differential Standard 05/05/21 Basic Metabolic Panel Standard (BMP Thad dard) 05/05/21 CBC w/Diff Standard 05/05/21 Hepatic Panel1 05/05/21 Lipase Level 05/05/21 PT (PT/INR) 05/05/21 Urinalysis Microscopic Standard 05/05/21 Most recent to oldest [Reference Range]: 1 Urine Culture? Yes (05/05/21 8:32 PM) NRBC Auto Pct [0.00-0.20 %] 0.00 % (05/05/21 7:03 PM) Creatinine [0.50-0.90 mg/dL] 0.59 mg/dL (05/05/21 7:03 PM) UA Bacteria [None Seen] Moderate *ABN* (05/05/21 8:32 PM) UA Bili NEGATIVE *NA* (05/05/21 8:32 PM) UA Blood [NEGATIVE] Large *ABN* (05/05/21 8:32 PM) UA Color Red *ABN* (05/05/21 8:32 PM) UA Glucose NEGATIVE *NA* (05/05/21 8:32 PM) UA Ketones NEGATIVE *NA* (05/05/21 8:32 PM) UA Leuk Est [NEGATIVE] Small *ABN* (05/05/21 8:32 PM) UA Nitrite [NEGATIVE] NEGATIVE (05/05/21 8:32 PM) UA Protein [NEGATIVE] Trace (05/05/21 8:32 PM) UA RBC [0-2] >100 *ABN* (05/05/21 8:32 PM) UA Urobilinogen 0.2 EU/dL (05/05/21 8:32 PM) UA WBC 0-2 (05/05/21 8:32 PM) INR 0.99 *NA* (05/05/21 7:03 PM) AGAP [10.0-18.0 mmol/L] 14.6 mmol/L (05/05/21 7:03 PM) Glucose Lvl [70-100 mg/dL] 85 mg/dL (05/05/21 7:03 PM) Hct [34.1-44.9 %] 35.3 % (05/05/21 7:03 PM) Hgb [11.5-15.7 gm/dL] 11.2 gm/dL *LOW* (05/05/21 7:03 PM) Lipase Lvl [13-60 IntUnit/L] 22 IntUnit/ L (05/05/21 7:03 PM) Lymph Auto [15.0-45.0 %] 35.6 % (05/05/21 7:03 PM) MCH [25.6-32.2 pg] 25.1 pg *LOW* (05/05/21 7:03 PM) MCHC [32.3-36.5 gm/dL] 31.7 gm/dL *LOW* (05/05/21 7:03 PM) MCV [79.4-94.8 fL] 79.0 fL *LOW* (05/05/21 7:03 PM) [place] Auto [4.0-14.0 %] 6.6 % (05/05/21 7:03 PM) MPV [9.4-12.4 fL] 11.4 fL (05/05/21 7:03 PM) Neutro Auto [50.0-75.0 %] 55.1 % (05/05/21 7:03 PM) Osmolality [268.0-291.0 mOsm/kg] 275.9 m Osm/kg (05/05/21 7:03 PM) Platelet [150-400 x10(3)/uL] 191 x10(3)/ uL (05/05/21 7:03 PM) PT [11.0-14.5 second(s)] 12.9 second(s) (05/05/21 7:03 PM) RBC [3.93-5.22 x10(6)/uL] 4.47 x10(6)/uL (05/05/21 7:03 PM) Sodium Lvl [136-145 mmol/L] 140 mmol/L (05/05/21 7:03 PM) Total Protein [6.6-8.7 gm/dL] 7.5 gm/dL (05/05/21 7:03 PM) UA pH 7.0 (05/05/21 8:32 PM) Albumin Lvl [3.50-5.20 gm/dL] 4.70 gm/dL (05/05/21 7:03 PM) Alk Phos [35-105 IntUnit/L] 56 IntUnit/L (05/05/21 7:03 PM) ALT [0-33 IntUnit/L] 34 IntUnit/L *HI* (05/05/21 7:03 PM) AST [0-32 IntUnit/L] 33 IntUnit/L *HI* (05/05/21 7:03 PM) Basophil Auto [0.0-2.0 %] 0.7 % (05/05/21 7:03 PM) Bili Direct [0.0-0.3 mg/dL] <0.2 mg/dL (05/05/21 7:03 PM) Bili Total [0.0-1.3 mg/dL] 0.2 mg/dL (05/05/21 7:03 PM) CO2 [22-29 mmol/L] 26 mmol/L (05/05/21 7:03 PM) Eos Auto [0.0-8.0 %] 1.8 % (05/05/21 7:03 PM) UA Spec Grav 1.010 (05/05/21 8:32 PM) WBC [4.0-10.0 x10(3)/uL] 5.4 x10(3)/uL (05/05/21 7:03 PM) BUN [6-23 mg/dL] 5 mg/dL *LOW* (05/05/21 7:03 PM) Calcium Lvl [8.6-10.2 mg/dL] 9.5 mg/dL (05/05/21 7:03 PM) Chloride [98-107 mmol/L] 103 mmol/L (05/05/21 7:03 PM) Potassium Lvl [3.5-5.1 mmol/L] 3.6 mmol/ L (05/05/21 7:03 PM) Micro? [Not Indicated] Indicated *ABN* (05/05/21 8:32 PM) Lymph Absolute [1.20-3.70 x10(3)/uL] 1.9 4 x10(3)/uL (05/05/21 7:03 PM) [place] Absolute [0.20-0.40 x10(3)/uL] 0.36 x10(3)/uL (05/05/21 7:03 PM) Eos Absolute [0.04-0.54 x10(3)/uL] 0.10 x10(3)/uL (05/05/21 7:03 PM) NRBC Absolute [0.00-.01 x10(3)/uL] 0.00 x10(3)/uL (05/05/21 7:03 PM) UA Clarity CLEAR *NA* (05/05/21 8:32 PM) Neutro Absolute [1.56-6.13 x10(3)/uL] 3. 00 x10(3)/uL (05/05/21 7:03 PM) RDW-CV [11.7-14.4 %] 15.5 % *HI* (05/05/21 7:03 PM) GFR NonAfrican Citizen Of [place] [>=60 mL/min/1.7 3 m2] 127 mL/min/1.73 m2 (05/05/21 7:03 PM) UA Squam Epi Moderate *ABN* (05/05/21 8:32 PM) Human Chorionic Gonadotropin Qualitative Negative (05/05/21 8:32 PM) Immature Gran % [0.00-2.30 %] 0.20 % (05/05/21 7:03 PM) Immature Gran Absolute 0.01 x10(3)/uL *NA* (05/05/21 7:03 PM) Basophil Absolute [0.00-0.10 x10(3)/uL] 0.04 x10(3)/uL (05/05/21 7:03 PM) Vital Signs Most recent to oldest [Reference Range]: 1 2 3 Temperature Temporal [36.3-37.8 DegC] 37.1 DegC (05/05/21 9:51 PM) 37.3 DegC (05/05/21 8:18 PM) 37.2 DegC (05/05/21 5:38 PM) Temperature Temporal (DegF) 98.78 DegF (05/05/21 9:51 PM) Peripheral Pulse Rate [60-100 bpm] 73 bpm (05/05/21 10:48 PM) 79 bpm (05/05/21 9:51 PM) 81 bpm (05/05/21 8:18 PM) Respiratory Rate [14-20 br/min] 17 br/min (05/05/21 10:48 PM) 18 br/min (05/05/21 9:51 PM) 17 br/min (05/05/21 8:18 PM) Blood Pressure [90-140/60-90 mmHg] 109/53mmHg (05/05/21 10:48 PM) 116/71mmHg (05/05/21 9:51 PM) 110/68mmHg (05/05/21 8:18 PM) Mean Arterial Pressure, Cuff [65-100 mmHg] 72 mmHg (05/05/21 10:48 PM) 86 mmHg (05/05/21 9:51 PM) 82 mmHg (05/05/21 8:18 PM) Mean Arterial Pressure Cuff-Monitor 71 mmHg (05/05/21 10:48 PM) 86 mmHg (05/05/21 9:51 PM) 82 mmHg (05/05/21 8:18 PM) SpO2 [92-100 %] 96 % (05/05/21 10:48 PM) 97 % (05/05/21 9:51 PM) 99 % (05/05/21 8:18 PM) Height/Length Estimated 164.000 cm (05/05/21 5:38 PM) Height/Length Dosing 164.000 cm (05/05/21 5:44 PM) Weight Estimated 92.900 kg (05/05/21 5:38 PM) Weight Dosing 92.900 kg (05/05/21 5:44 PM) Social History Social History Type Response Smoking Status Never (less than 100 in lifetime) entered on: 07/31/20 Sex Hospital Discharge Instructions Patient Education 05/05/2021 22:22:05 General Discharge (SMURRAY) Please read all of the information that accompanies these instructions. You came to the emergency department with abdominal bruising, pain, and nausea and vomiting. Your evaluation in the Emergency Department did not show a clear cause for your symptoms. Your symptoms improved with treatment in the ED, you tolerated fluids and crackers so you were discharged home to follow up with your outpatient providers. Please notify both your PCP and OBGYN about your ED visit today so they may discuss it with you at your next appointment. You have been given or prescribed medications during this visit that may make you tired or drowsy. Do not drive, do not operate machinery, do not care for others, do no consume alcohol until they arecompletely clear from your system and you feel normal or as directed by a physician. Please seek medical care or return to the emergency department if you develop fevers, worsening abdominal pain, new bleeding or bruising symptoms, inability to tolerate oral intake, or a new or concerning symptom. We are open 24 hours a day, 7 days a week. Follow Up Care 05/05/2021 17:30:47 With:ANTONINA [facility] Address: [address] [place] [address] [place] [address]- Business (1) When:1 to 2 days Comments:Call for followup appointment With:RICARDO RUTH Address: [address] [address]- Business (1) When:1 to 2 days Comments:Call for followup appointment
--- OUTSIDE RECORDS SUMMARY | 2022-11-20 17:52 | XMS_ITS | Continuity of Care Document ---
Author Name Unknown Organization [facility] Address [address] [place] [address]- Care Team Providers Care Auricular Detoxification Specialist Name Role Phone Adeel Busby Primary Care Physician Daksha navailable Encounter BVT Date(s): 04/25/22 - 04/25/[address] [address]- [place] [phone] Discharge Disposition: Against Medical Advice Attending Physician: Elier Bermudez Admitting Physician: Elier Bermudez Allergies, Adverse Reactions, Alerts Substance Reaction Severity Status droperidol Moderate Active Latex Itching Active penicillins Edema Hives Active Haldol Moderate Active Compazine Edema Active Toradol Nausea Active Assessment and Plan Extracted from: Title:General medical Author:Elier Bermudez Date:1 06/26/21 History of Present Illness 22-year-old female with a past medical history significant for abnormal uterine bleeding requiring admissions to the hospital and blood transfusions who presents with vaginal bleeding. The patient recently had an admission to [facility] for 4 days due to her vaginal bleeding. The patient states that she received several units of blood during this admission. She is followed by our obstetrics service for her vaginal bleeding. She is on oral TXA and states that she took her TXA today. She is prescribed 650 mg oral tablets and states that she took 2 of these prior to coming in to the hospital today. She states that this bleeding started this morning. She is changing 4 pads an hour. She denies lightheadedness. Denies syncope. Denies chest pain or shortness of breath. Denies dyspnea on exertion. Denies alleviating or exacerbating factors. Review of Systems Please see HPI. Otherwise limited due to acuity of presentation. Health Status Allergies: Allergic Reactions (Selected) Moderate Droperidol- No reactions were documented. Haldol- No reactions were documented. Severity Not Documented Compazine- Edema. Latex- Itching. Penicillins- Edema and hives. Toradol- Nausea.. Medications: (Selected) Inpatient Medications Ordered Sodium Chloride 0.9%: 1,000 mL, 1000 mL/hr, IV, Once Prescriptions Prescribed !-Zofran ODT 4 mg oral tablet, disintegratin mg = 1 tab(s), Oral, q8hr, PRN: Nausea/Vomiting, 30 tab(s), 0 Refill(s) Protonix 40 mg oral delayed release tablet: 40 mg = 1 tab(s), Oral, Daily, 15 tab(s), 0 Refill(s) drospirenone-ethinyl estradiol 3 mg-0.03 mg oral tablet: 1 tab(s), Oral, Daily, 28 tab(s), 5 Refill(s) norethindrone 5 mg oral tablet: 10 mg = 2 tab(s), Oral, Daily, for 30 day(s), 60 tab(s), 3 Refill(s) ondansetron 4 mg oral tablet, disintegratin mg = 1 tab(s), Oral, q8hr, PRN: Nausea/Vomiting, 20 tab(s), 0 Refill(s) traMADol 50 mg oral tablet: 50 mg = 1 tab(s), Oral, q6hr, PRN: for pain, 10 tab(s), 0 Refill(s) tranexamic acid 650 mg oral tablet: [...] PRN: for anxiety, 40 cap(s), 0 Refill(s) montelukast 4 mg oral granule: [...] Social History Medical history: Resolved Ovarian torsion ([id number]): Resolved.. Surgical history: Repair of vaginal vault tear ([id number]) on 11/01/2021 at 21 Years. Comments: 02/11/2022 9:09 ERIN XIONG MD recurrent bleeding- excision of posterior vagianl tissue and repair- 4 cm area- bipsy sent to rule out vaginal endometriosis- not report avaialble Transfusion x 1 u PRBC Repair of vaginal vault tear ([id number]) on 10/25/2021 at 21 Years. Comments: 02/11/2022 9:07 ERIN XIONG MD vaginal vault tear with heavy bleeding following vaginal u/s. OR x 2 Hysteroscopy to evaluate uterine cavity- normal Transfusion x 2 u PRBC Laparoscopic ablation of pelvic endometriosis ([id number]) in the month of 03/2021 at 21 Years. Comments: 02/11/2022 8:54 ERIN XIONG MD recurrent pain, Laparoscopic excision of pelvic endometriosis ([id number]) on 03/05/2021 at 21 Years. Comments: 02/21/2022 11:12 Dick [facility]e Pathology Pelvic side wall biopsy LEFT: Mesothelial-lined fibrous tissue with focal calcification and foreign body giant cell reaction to polarizable material. No endomestrisosis identified. Laparoscopic ablation of pelvic endometriosis ([id number]) in the month of 08/2020 at 20 Years. Comments: 02/11/2022 8:53 ERIN XIONG MD Excision of endometriosis Cystoscopy ([id number]) on 08/26/2020 at 20 Years. Laparoscopic excision of pelvic endometriosis ([id number]) on 03/17/2020 at 20 Years. Comments: 04/16/2020 13:50 ERIN VERMA MD mild endometriosis otherwise normal anatomy Laparoscopic appendectomy ([id number]) in the month of 11/2019 at 19 Years. 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 Comments: 02/20/2020 10:14 ERIN XIONG MD menorrhagia Laparoscopy with aspiration ([id number]) in the month of 01/2018 at 18 Years. Comments: 02/20/2020 10:14 ERIN XIONG MD aspiration of endometrioma Appendectomy ([id number]).. Family history: Diabetes mellitus type 2 Grandfather [...] injury Adenomyosis Asthma Endometriosis . Physical Examination General: Alert. Skin: Warm, dry. Head: Atraumatic. Neck: Supple. Eye: Normal conjunctiva. Cardiovascular: Regular rate and rhythm. Respiratory: Respirations are non-labored. Gastrointestinal: Soft, Nontender. Genitourinary: Normal external genitalia, no lesions, Bright red blood was appreciated on the patient's labia majora and bilateral inner thighs. Neurological: Alert and oriented to person, place, time, and situation, No focal neurological deficit observed. Psychiatric: Cooperative. Medical Decision Making 22-year-old female with a past medical history significant for abnormal uterine bleeding requiring admissions to the hospital and blood transfusions who presents with vaginal bleeding. On exam, the patient was hypertensive. However, her vitals were otherwise within normal limits. Her physical exam was significant for bright red blood on her bilateral inner thighs. Upon initial presentation large-bore IV access was obtained. The patient was given IV fluids as well as 1 g of TXA IV. I then contacted the obstetrics team who agreed with 1 g of TXA. In the meantime, labs were obtained and were pending. These labs returned showing no evidence of leukocytosis or anemia. The patient's hemoglobin was 11.8 which was upwardly trending from her priors from last month. She had no clinically significant electrolyte abnormality. Her beta hCG was negative. Given the patient's history of acute blood loss anemia requiring blood transfusions I did recommend observation admission overnight. However, the patient declined. She had asked for pain management multiple times. I offered several different nonnarcotic strategies including Tylenol, ibuprofen, and Toradol. She refused these medications and stated that she was allergic to Toradol. Her documented allergy was nausea and when I informed the patient that this is not an allergy she stated that she has hives. She became upset and ultimately signed out AGAINST MEDICAL ADVICE. The risks were discussed. Specifically, continued vaginal bleeding, hemorrhage, shock, severe disability, and . I explained to the patient's that she is welcome to return at any time. I advised follow-up with obstetrics/EMPLOYMENT OFFICER tomorrow. Reexamination/ Reevaluation Time: 04/25/2022 19:43:00 . Notes: Spoke with Beverley (oil treater) who advised that I speak with Dr. Armando. Dr. Armando paged., [address] Armando who agrees with the TXA at this time and will call back., [phone] Patient signed out against medical advice. Multiple attempts were made to treat the patient's discomfort. I explained that often times Toradol is used for uterine cramping. I also explained that her vaginal bleeding should not be painful enough to require IV narcotics. She stated that she took Tylenol at home and did not help. She stated that she has an allergy to Toradol. I explained that nausea was not an allergy and she stated that her allergy is hives. She became emotional, upset, and signed out AGAINST MEDICAL ADVICE. These risks were explained including continued bleeding, hemorrhage, shock, severe disability and . The patient has requested to leave AGAINST MEDICAL ADVICE. The patient reason (s) for leaving include, but are not limited to, the following: Patient felt like her pain was not appropriately managed. I believe this patient is of sound mind and competent to refuse medical care. The patient is responding and asking questions appropriately. The patient is oriented to person, place and time. The patient is not psychotic, delusional, suicidal, homicidal or hallucinating. The patient demonstrates a normal mental capacity to make decisions regarding her health care. The patient is clinically sober and does not appear to be under the influence of any illicit drugs at this time. I have explained to the patient that while their workup to this point is incomplete, they could still have active vaginal bleeding. The patient has been advised of the risks, in layman terms, of leaving AMA which include, but are not limited to , coma, permanent disability, loss of current lifestyle, delay in diagnosis, and worsening of her condition. Alternatives have been offered including further observation, but the patient remains steadfast in their wish to leave. The patient has been advised that should they change their mind they are welcome to return to this hospital, or any other, at any time or follow-up with her primary care physician. The patient understands that in no way does an AMA discharge meeting that I do not want them to have the best medical care available. To this end, I have provided appropriate prescriptions, referrals, and discharge instructions. I have provided opportunity for questions and answered all questions to the best of my ability. The patient did sign the [facility] paperwork.. Impression and Plan Diagnosis Abnormal vaginal bleeding Plan Disposition: Discharged: to home. Patient was given the following educational materials: Dysfunctional Uterine Bleeding, Dysfunctional Uterine Bleeding. Follow up with: ; ANTONINA Latifo ELECTRICAL TESTS SUPERVISOR Within 1 to 2 days Call for followup appointment. Counseled: Patient. Functional Status 04/25/22 Recent Travel History No recent travel COVID-19 Screening None Medications !-Zofran ODT 4 mg oral tablet, disintegrating 4 mg = 1 tab(s), Oral, q8hr, PRN PRN Nausea/Vomiting, # 30 tab(s), 0 Refill(s), [id number], 1 tab(s) Oral q8hr,PRN:Nausea/Vomiting, 164, cm, 01/17/22 [...] Daily, # 28 tab(s), 5 Refill(s), [id number], 1 tab(s) Oral Daily, 164, cm, 01/17/22 [...] # 60 tab(s), 3 Refill(s), [facility], 2tab(s) Oral Daily,x30 day(s) Start Date: 05/20/20 Stop Date: 09/17/20 Status: Ordered omeprazole Oral, Daily, 0 Refill(s) Start Date: 09/27/20 Status: Ordered ondansetron 4 mg oral tablet, disintegrating 4 mg = 1 tab(s), Oral, q8hr, PRN PRN Nausea/Vomiting, # 20 tab(s), 0 Refill(s), Pharmacy: [facility], 1 tab(s) Oral q8hr,PRN:Nausea/Vomiting, 165, cm, 07/13/21 17:17:00 EST, Height/Length Dosing, 83, kg, 07/13/21 17:17:00 EST, Weight Dosing Start Date: 07/14/21 Status: Ordered ProAir HFA INH, q6hr, 0 Refill(s) Start Date: 09/27/20 Status: Ordered Protonix 40 mg oral delayed release tablet 40 mg = 1 tab(s), Oral, Daily, # 15 tab(s), 0 Refill(s), [facility]: [facility], 1tab(s) Oral Daily Start Date: 03/26/20 [...] # 30 tab(s), 2 Refill(s), [facility]: [facility] #[id number], 2 tab(s) Oral TID,x5 day(s),Instr:st... 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 8menorrhagia 9aspiration of endometrioma Results Laboratory List Name Date ABO/Rh. 04/25/22 Antibody Screen Tube 2 04/25/22 Automated Differential Standard 04/25/22 Basic Metabolic Panel Standard (BMP Thad dard) 04/25/22 CBC w/Diff Standard 04/25/22 PT (PT/INR) 04/25/22 Test Serum Standard 04/25/22 Most recent to oldest [Reference Range]: 1 ABO/Rh. Interp A POS *Unknown* (04/25/22 7:52 PM) eGFR CKD-EPI [>=60 mL/min/1.73 m2] 116.5 2 mL/min/1.73 m2 *NA* (04/25/22 7:52 PM) NRBC Auto Pct [0.00-0.20 %] 0.00 % (04/25/22 7:52 PM) ABSC Tube 2 Interp Negative (04/25/22 7:52 PM) Creatinine [0.50-0.90 mg/dL] 0.74 mg/dL (04/25/22 7:52 PM) INR 1.04 *NA* (04/25/22 7:52 PM) AGAP [10.0-18.0 mmol/L] 13.6 mmol/L (04/25/22 7:52 PM) Glucose Lvl [70-100 mg/dL] 90 mg/dL (04/25/22 7:52 PM) Hct [34.1-44.9 %] 35.6 % (04/25/22 7:52 PM) Hgb [11.5-15.7 gm/dL] 11.8 gm/dL (04/25/22 7:52 PM) Lymph Auto [15.0-45.0 %] 33.5 % (04/25/22 7:52 PM) MCH [25.6-32.2 pg] 27.2 pg (04/25/22 7:52 PM) MCHC [32.3-36.5 gm/dL] 33.1 gm/dL (04/25/22 7:52 PM) MCV [79.4-94.8 fL] 82.0 fL (04/25/22 7:52 PM) Brunswick Auto [4.0-14.0 %] 6.7 % (04/25/22 7:52 PM) MPV [9.4-12.4 fL] 11.2 fL (04/25/22 7:52 PM) Neutro Auto [50.0-75.0 %] 55.2 % (04/25/22 7:52 PM) Osmolality [268.0-291.0 mOsm/kg] 274.7 m Osm/kg (04/25/22 7:52 PM) Platelet [150-400 x10(3)/uL] 287 x10(3)/ uL (04/25/22 7:52 PM) PT [11.0-14.5 second(s)] 13.2 second(s) (04/25/22 7:52 PM) RBC [3.93-5.22 x10(6)/uL] 4.34 x10(6)/uL (04/25/22 7:52 PM) Sodium Lvl [136-145 mmol/L] 139 mmol/L (04/25/22 7:52 PM) Basophil Auto [0.0-2.0 %] 1.3 % (04/25/22 7:52 PM) CO2 [22-29 mmol/L] 27 mmol/L (04/25/22 7:52 PM) Eos Auto [0.0-8.0 %] 3.1 % (04/25/22 7:52 PM) WBC [4.0-10.0 x10(3)/uL] 4.5 x10(3)/uL (04/25/22 7:52 PM) BUN [6-23 mg/dL] 6 mg/dL (04/25/22 7:52 PM) Calcium Lvl [8.6-10.2 mg/dL] 9.2 mg/dL (04/25/22 7:52 PM) Chloride [98-107 mmol/L] 102 mmol/L (04/25/22 7:52 PM) Potassium Lvl [3.5-5.1 mmol/L] 3.6 mmol/ L (04/25/22 7:52 PM) Lymph Absolute [1.20-3.70 x10(3)/uL] 1.5 0 x10(3)/uL (04/25/22 7:52 PM) Brunswick Absolute [0.20-0.40 x10(3)/uL] 0.30 x10(3)/uL (04/25/22 7:52 PM) Eos Absolute [0.04-0.54 x10(3)/uL] 0.14 x10(3)/uL (04/25/22 7:52 PM) NRBC Absolute [0.00-0.01 x10(3)/uL] 0.00 x10(3)/uL (04/25/22 7:52 PM) Neutro Absolute [1.56-6.13 x10(3)/uL] 2. 47 x10(3)/uL (04/25/22 7:52 PM) RDW-CV [11.7-14.4 %] 17.2 % *HI* (04/25/22 7:52 PM) Immature Gran % [0.00-2.30 %] 0.20 % (04/25/22 7:52 PM) Immature Gran Absolute 0.01 x10(3)/uL *NA* (04/25/22 7:52 PM) HCG Qualitative Serum [Negative] Negativ e (04/25/22 7:52 PM) Basophil Absolute [0.00-0.10 x10(3)/uL] 0.06 x10(3)/uL (04/25/22 7:52 PM) Vital Signs Most recent to oldest [Reference Range]: 1 2 3 Temperature Temporal Artery [36.3-37.8 DegC] 36.8 DegC (04/25/22 7:33 PM) Peripheral Pulse Rate [60-100 bpm] 92 bpm (04/25/22 8:16 PM) 105 bpm *HI* (04/25/22 8:01 PM) 106 bpm *HI* (04/25/22 7:57 PM) Heart Rate Monitored [60-100 bpm] 71 bpm (04/25/22 8:57 PM) 103 bpm *HI* (04/25/22 8:16 PM) 95 bpm (04/25/22 8:01 PM) Respiratory Rate [14-20 br/min] 13 br/min *LOW* (04/25/22 8:57 PM) 20 br/min (04/25/22 8:16 PM) 13 br/min *LOW* (04/25/22 8:01 PM) Blood Pressure [90-140/60-90 mmHg] 117/72mmHg (04/25/22 8:57 PM) 138/69mmHg (04/25/22 8:16 PM) 106/72mmHg (04/25/22 8:01 PM) Mean Arterial Pressure, Cuff [70-110 mmHg] 87 mmHg (04/25/22 8:57 PM) 92 mmHg (04/25/22 8:16 PM) 83 mmHg (04/25/22 8:01 PM) Mean Arterial Pressure Cuff-Monitor 83 mmHg (04/25/22 8:57 PM) 87 mmHg (04/25/22 8:16 PM) 89 mmHg (04/25/22 7:57 PM) SpO2 [92-100 %] 99 % (04/25/22 8:16 PM) 99 % (04/25/22 8:01 PM) 99 % (04/25/22 7:57 PM) Height/Length Estimated 166.000 cm (04/25/22 7:33 PM) Height/Length Dosing 166.000 cm (04/25/22 7:40 PM) Weight Estimated 70.310 kg (04/25/22 7:33 PM) Weight Dosing 70.310 kg (04/25/22 7:40 PM) Social History Social History Type Response Smoking Status Never (less than 100 in lifetime) entered on: 07/13/21 Sex Hospital Discharge Instructions Patient Education 04/25/2022 22:15:17 Dysfunctional Uterine Bleeding You were seen in the emergency department for your dysfunctional vaginal bleeding. I did recommend admission to the hospital overnight for observation as her bleeding could progress. However, at thistime he declined and signed out AGAINST MEDICAL ADVICE. You are welcome to return to the emergency department at any time. Please be sure to return to the emergency department for any worsening of symptoms, continued symptoms, or new symptoms. Please be sure to follow-up with your bleacher lard tomorrow. Dysfunctional Uterine Bleeding Dysfunctional uterine bleeding is abnormal bleeding from the uterus. Dysfunctional uterine bleedingincludes: ??? A menstrual period that comes earlier or later than usual. ??? A menstrual period that is certified orthoptist or heavier than usual, or has large [...] keep your urine pale yellow. ??? Take yquy-cvq-xrqeyxp or prescription medicines. ??? Eat foods that are high in fiber, such as beans, whole grains, and fresh fruits and vegetables. ??? Limit foods that are high in fat and processed sugars, such as fried or sweet foods. Medicines ??? Take fyjc-sgx-ueayims and prescription medicines only as told by [...] provider. Document Revised: 10/10/2018 Document Reviewed: 10/10/2018 Apto Patient Education ?? 2021 [employer]. Follow Up Care 04/25/2022 19:16:20 With:[facility] ELECTRICAL TESTS SUPERVISOR Address: [address] [place] [address] [address] [place] [address] [facility] (1) When:1 to 2 days Comments:Call for followup appointment Physician Emergency department Note * Elier Bermudez: MODIFY, MODIFY, PERFORM, MODIFY, SIGN, MODIFY, VERIFY Event Display: ED Note - Physician Authored Date: [id number] Patient: EDUARDO PAYAN Age: 22 years Sex: Female : 2000 Associated Diagnoses: None Author: Elier Bermudez History of Present Illness 22-year-old female with a past medical history significant for abnormal uterine bleeding requiring admissions to the hospital and blood transfusions who presents with vaginal bleeding. The patient recently had an admission to [facility] for 4 days due to her vaginal bleeding. The patient states that she received several units of blood during this admission. She is followed by our obstetricsservice for her vaginal bleeding. She is on oral TXA and states that she took her TXA today. She isprescribed 650 mg oral tablets and states that she took 2 of these prior to coming in to the hospital today. She states that this bleeding started this morning. She is changing 4 pads an hour. She denies lightheadedness. Denies syncope. Denies chest pain or shortness of breath. Denies dyspnea on exertion. Denies alleviating or exacerbating factors. Review of Systems Please see HPI. Otherwise limited due to acuity of presentation. Health Status Allergies: Allergic Reactions (Selected) Moderate Droperidol- No reactions were documented. Haldol- No reactions were documented. Severity Not Documented Compazine- Edema. Latex- Itching. Penicillins- Edema and hives. Toradol- Nausea.. Medications: (Selected) Inpatient Medications Ordered Sodium Chloride 0.9%: 1,000 mL, 1000 mL/hr, IV, Once Prescriptions Prescribed !-Zofran ODT 4 mg oral tablet, disintegratin mg = 1 tab(s), Oral, q8hr, PRN: Nausea/Vomiting, 30 tab(s), 0 Refill(s) Protonix 40 mg oral delayed release tablet: 40 mg = 1 tab(s), Oral, Daily, 15 tab(s), 0 Refill(s) drospirenone-ethinyl estradiol 3 mg-0.03 mg oral tablet: 1 tab(s), Oral, Daily, 28 tab(s), 5 Refill(s) norethindrone 5 mg oral tablet: 10 mg = 2 tab(s), Oral, Daily, for 30 day(s), 60 tab(s), 3 Refill(s) ondansetron 4 mg oral tablet, disintegratin mg = 1 tab(s), Oral, q8hr, PRN: Nausea/Vomiting, 20tab(s), 0 Refill(s) traMADol 50 mg oral tablet: 50 mg = 1 tab(s), Oral, q6hr, PRN: for pain, 10 tab(s), 0 Refill(s) tranexamic acid 650 mg oral tablet: [...] Oral, QID, PRN: for anxiety, 40 cap(s), 0Refill(s) montelukast 4 mg oral granule: mg = [...] Social History Medical history: Resolved Ovarian torsion ([id number]): Resolved.. Surgical history: Repair of vaginal vault tear ([id number]) on 11/01/2021 at 21 Years. Comments: 02/11/2022 9:09 ERIN XIONG MD recurrent bleeding- excision of posterior vagianl tissue and repair- 4 cm area- bipsy sent to rule out vaginal endometriosis- not report avaialble Transfusion x 1 u PRBC Repair of vaginal vault tear ([id number]) on 10/25/2021 at 21 Years. Comments: 02/11/2022 9:07 REIN XIONG MD vaginal vault tear with heavy bleeding following vaginal u/s. OR x 2 Hysteroscopy to evaluate uterine cavity- normal Transfusion x 2 u PRBC Laparoscopic ablation of pelvic endometriosis ([id number]) in the month of 03/2021 at 21 Years. Comments: 02/11/2022 8:54 ERIN XIONG MD recurrent pain, Laparoscopic excision of pelvic endometriosis ([id number]) on 03/05/2021 at 21 Years. Comments: 02/21/2022 11:12 [facility] Pathology Pelvic side wall biopsy LEFT: Mesothelial-lined fibrous tissue with focal calcification and foreignbody giant cell reaction to polarizable material. No endomestrisosis identified. Laparoscopic ablation of pelvic endometriosis ([id number]) in the month of 08/2020 at 20 Years. Comments: 02/11/2022 8:53 ERIN XIONG MD Excision of endometriosis Cystoscopy ([id number]) on 08/26/2020 at 20 Years. Laparoscopic excision of pelvic endometriosis ([id number]) on 03/17/2020 at 20 Years. Comments: 04/16/2020 13:50 ERIN VERMA MD mild endometriosis otherwise normal anatomy Laparoscopic appendectomy ([id number]) in the month of 11/2019 at 19 Years. 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 Comments: 02/20/2020 10:14 ERIN XIONG MD menorrhagia Laparoscopy with aspiration ([id number]) in the month of 01/2018 at 18 Years. Comments: 02/20/2020 10:14 ERIN XIONG MD aspiration of endometrioma Appendectomy ([id number]).. Family history: Diabetes mellitus type 2 Grandfather [...] injury Adenomyosis Asthma Endometriosis . Physical Examination General: Alert. Skin: Warm, dry. Head: Atraumatic. Neck: Supple. Eye: Normal conjunctiva. Cardiovascular: Regular rate and rhythm. Respiratory: Respirations are non-labored. Gastrointestinal: Soft, Nontender. Genitourinary: Normal external genitalia, no lesions, Bright red blood was appreciated on the patient's labia majora and bilateral inner thighs. Neurological: Alert and oriented to person, place, time, and situation, No focal neurological deficit observed. Psychiatric: Cooperative. Medical Decision Making 22-year-old female with a past medical history significant for abnormal uterine bleeding requiring admissions to the hospital and blood transfusions who presents with vaginal bleeding. On exam, the patient was hypertensive. However, her vitals were otherwise within normal limits. Her physical exam was significant for bright red blood on her bilateral inner thighs. Upon initial presentation large-bore IV access was obtained. The patient was given IV fluids as well as 1 g of TXA IV. I then contacted the obstetrics team who agreed with 1 g of TXA. In the meantime, labs were obtained and were pending. These labs returned showing no evidence of leukocytosis or anemia. The patient's hemoglobin was 11.8 which was upwardly trending from her priors from last month. She had no clinically significant electrolyte abnormality. Her beta hCG was negative. Given the patient's history of acute blood loss anemia requiring blood transfusions I did recommendobservation admission overnight. However, the patient declined. She had asked for pain management multiple times. I offered several different nonnarcotic strategies including Tylenol, ibuprofen, and T oradol. She refused these medications and stated that she was allergic to Toradol. Her documented allergy was nausea and when I informed the patient that this is not an allergy she stated that she has hives. She became upset and ultimately signed out AGAINST MEDICAL ADVICE. The risks were discussed. Specifically, continued vaginal bleeding, hemorrhage, shock, severe disability, and . I explained to the patient's that she is welcome to return at any time. I advised follow-up with obstetrics/EMPLOYMENT OFFICER tomorrow. Reexamination/ Reevaluation Time: 04/25/2022 19:43:00 . Notes: Spoke with Beverley (oil treater) who advised that I speak with Dr. Armando. Dr. Armando pagekerline., [address] Armando who agrees with the TXA at this time and will call back., [id number] Patient signed out against medical advice. Multiple attempts were made to treat the patient's discomfort. I explained that often times Toradol is used for uterine cramping. I also explained that her vaginal bleeding should not be painful enough to require IV narcotics. She stated that she took Tylenol at home and did not help. She stated that she has an allergy to Toradol. I explained that nausea was not an allergy and she stated that her allergy is hives. She became emotional, upset, and signed out AGAINST MEDICAL ADVICE. These risks were explained including continued bleeding, hemorrhage, shock, severe disability and . The patient has requested to leave AGAINST MEDICAL ADVICE. The patient reason (s) for leaving include, but are not limited to, the following: Patient felt like her pain was not appropriately managed.I believe this patient is of sound mind and competent to refuse medical care. The patient is responding and asking questions appropriately. The patient is oriented to person, place and time. The patient is not psychotic, delusional, suicidal, homicidal or hallucinating. The patient demonstrates a normal mental capacity to make decisions regarding her health care. The patient is clinically sober and does not appear to be under the influence of any illicit drugs at this time. I have explained to the patient that while their workup to this point is incomplete, they could still have active vaginal bleeding. The patient has been advised of the risks, in layman terms, of leaving AMA which include, but are not limited to , coma, permanent disability, loss of current lifestyle, delay in diagnosis, and worsening of her condition. Alternatives have been offered including further observation,but the patient remains steadfast in their wish to leave. The patient has been advised that should they change their mind they are welcome to return to this hospital, or any other, at any time or follow-up with her primary care physician. The patient understands that in no way does an A discharge meeting that I do not want them to have the best medical care available. To this end, I have provided appropriate prescriptions, referrals, and discharge instructions. I have provided opportunity forquestions and answered all questions to the best of my ability. The patient did sign the [facility] paperwork.. Impression and Plan Diagnosis Abnormal vaginal bleeding Plan Disposition: Discharged: to home. Patient was given the following educational materials: Dysfunctional Uterine Bleeding, Dysfunctional Uterine Bleeding. Follow up with: ; ANTONINA Motta [employer] SUPERVIS[employer] Within 1 to 2 days Call for followup appointment. Counseled: Patient. [Electronically Signed on: 04/25/2022 22:14 EST] Elier Bermudez [Verified on: 04/25/2022 22:14 EST] Elier Bermudez Patient Care team information Personnel Name: Adeel Busby
--- OUTSIDE RECORDS SUMMARY | 2022-11-20 17:52 | XMS_ITS | Continuity of Care Document ---
Author Name Unknown Organization [facility] Address [address] [place] [address]- Care Team Providers Care Stallion Keeper Name Role Phone RICARDO RUTH Primary Care Physician Encounter BVT Date(s): 01/17/22 - 01/17/[address] [address]- [place] [phone] Discharge Disposition: Home or Self Care Attending Physician: Elier Bermudez Admitting Physician: Elier Bermudez Allergies, Adverse Reactions, Alerts Substance Reaction Severity Status droperidol Moderate Active Latex Itching Active penicillins Edema Hives Active Compazine Edema Active Toradol Nausea Active Haldol Moderate Active Assessment and Plan Extracted from: Title:General medical Author:Elier Bermudez Date: History of Present Illness 22-year-old female with a past medical history significant for an ovarian torsion who presents with pelvic pain as well as lightheadedness. History obtained from the patient. The patient states that she was diagnosed with an ovarian torsion last year and that this was surgically corrected. She states that over the past several months she has had a complicated [facility] history. She reports a history of endometriosis. She states that several months ago she had a transvaginal ultrasound performed and she started to bleed immediately thereafter. Since then, she states that she has had several admissions to [facility]. Her last admission was last week and she was discharged on Monday. She states that she was given 2 units of blood at [facility]. Since Monday, she has had no vaginal bleeding. She states that she was told that she had to come in to work today. 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 She states that she could only tolerate working for several hours due to the pain and due to her lightheadedness. She denies vertigo and syncope. She denies chest pain, shortness of breath, and dyspnea on exertion. Denies vaginal bleeding today. Reports a lower abdominal cramping which she has had throughout these symptoms. Denies any acute changes in her lower abdominal discomfort. The patient did have a transvaginal ultrasound performed on January 06 which showed unremarkable ultrasound of the pelvis.` When asked if her discomfort today reminds her of the pain that she had when she had her ovarian torsion she reported maybe. She denies alleviating and exacerbating factors. Review of Systems Constitutional symptoms: No fever, Skin symptoms: No rash, Respiratory symptoms: No shortness of breath, Cardiovascular symptoms: No chest pain, Gastrointestinal symptoms: Abdominal pain, nausea, No vomiting, Genitourinary symptoms: No dysuria, no vaginal bleeding. Musculoskeletal symptoms: No back pain, Neurologic symptoms: No headache, Endocrine symptoms: No polyuria, Health Status Allergies: Allergic Reactions (Selected) Moderate Droperidol- No reactions were documented. Haldol- No reactions were documented. Severity Not Documented Compazine- Edema. Latex- Itching. Penicillins- Edema and hives. Toradol- Nausea.. Medications: (Selected) Prescriptions Prescribed Protonix 40 mg oral delayed release tablet: [...] q8hr, PRN: Nausea/Vomiting, 20 tab(s), 0 Refill(s) Documented Medications Documented Benadryl 25 [...] Social History Medical history: Resolved Ovarian torsion ([id number]): Resolved.. Surgical history: Laparoscopic excision of pelvic endometriosis ([id number]) on 03/17/2020 at 20 Years. Comments: 04/16/2020 13:50 ERIN VERMA MD mild endometriosis otherwise normal anatomy Laparoscopic appendectomy ([id number]) in the month of 11/2019 at 19 Years. Comments: 03/04/2020 23:03 ERIN XIONG MD noted to have endometriosis on appendix D&C - Dilatation and curettage ([id number]) in the month of 06/2018 at 18 Years. 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 Exercise Exercise frequency: Daily. Exercise type: Walking. [...] . Physical Examination Vital Signs Vital Signs 01/17/2022 19:29 EDT Temperature Temporal Artery 36.9 DegC Peripheral Pulse Rate 77 bpm Respiratory Rate 16 br/min Systolic Blood Pressure 110 mmHg Diastolic Blood Pressure 59 mmHg LOW SpO2 99 % . Measurements 01/17/2022 19:35 EDT Height/Length Dosing 164.000 cm Weight Dosing 77.110 kg 01/17/2022 19:29 EDT Height/Length Estimated 164.000 cm Weight Estimated 77.110 kg . Basic Oxygen Information 01/17/2022 19:29 EDT Oxygen Therapy Room air . General: Alert, no acute distress. Skin: Warm, dry. Head: Atraumatic. Neck: Supple. Eye: Normal conjunctiva. Cardiovascular: Regular rate and rhythm. Respiratory: Respirations are non-labored. Gastrointestinal: Soft, Nontender. Neurological: Alert and oriented to person, place, time, and situation, No focal neurological deficit observed. Psychiatric: Cooperative. Medical Decision Making 22-year-old female with a past medical history significant for an ovarian torsion who presents with pelvic pain as well as lightheadedness. On exam, the patient did have an initial diastolic blood pressure of 59. This did improve to 61 and is near her baseline. Her diastolic blood pressure was 67 and 62 on November 12 and January 06. Her physical exam was unremarkable. Her abdomen was benign. She was soft and nontender. Labs were obtained which showed no evidence of leukocytosis. Her anemia was stable and chronic. She had no clinically significant electrolyte abnormality. She had no urinary symptoms to suggest a urinary tract infection. Beta hCG negative. Please see complete records and conversation that was had with the patient below. In short, I did recommend transfer to [facility] to obtain a transvaginal ultrasound to rule out torsion. All the necessary steps were taken and the patient was minutes away from transfer when she declined transfer. We discussed the risks. She understood the risks and refused the exam. She does have follow-up scheduled with [facility]. I advised follow-up this week. Return precautions discussed. She was discharged home with return precautions and follow-up with [employer] [facility]. Reexamination/ Reevaluation Time: 01/17/2022 20:16:00 . Vital signs Basic Oxygen Information 01/17/2022 19:29 EDT Oxygen Therapy Room air Notes: I just obtain the records from the patient's stay at [facility]: [facility] Hospital course: Patient is a 22-year-old G0 with a history of endometriosis presented as a transfer from [facility] in [place] with heavy vaginal bleeding. Patient initially presented to an outside hospital from 10/25/2021 with vaginal laceration sustained following transvaginal ultrasound for assessment of suspected endometriosis flare. Since then, the patient has presented with vaginal bleeding to several hospitals, and she has undergone normal hysteroscopy, exam under anesthesia with vaginal repair x 4. Normal CT abdomen and pelvis x 4, and normal pelvic ultrasound. Since admission at [facility], patient has received a total of 2 packed red blood cells due to hemoglobin less than 7. All work-up has been unremarkable, thus etiology of acute onset heavy bleeding remains unclear. At this time, bleeding is stable, CBC stable hemoglobin. Pelvic exam shows no active bleeding from cervix; no vaginal lacerations. No need for exam under anesthesia given recent ability to do bedside exam. Medicine was consulted, concerned for possible inflammatory GI syndrome, like Crohn's, encouraged outpatient GI follow-up. Given no recent active bleeding, stabilize hemoglobin, patient appears appropriate for outpatient management to further assess underlying etiology. She follows with [facility] in [place], next appointment is Monday. Patient discharged on hospital day 2., Assessment and plan from discharge summary: Assessment from the patient's history and physical during her last admission at [facility]. Patient is a 22-year-old G0 with history of endometriosis presenting as a transfer from [facility] in [place] with heavy vaginal bleeding. Work-up thus far has included transabdominal ultrasound which did not show any structural causes of her bleeding. Coagulation studies overall unremarkable, however, given prolonged episodes of bleeding with subsequent anemia, hematology was consulted. Recommended DIC labs, coagulation panel, iron studies-all unremarkable results. Urinalysis work-up negative and urine toxicology positive for opioids. Unknown etiology of her vaginal bleeding at this time. Since her bleeding has restarted, we will plan on making her n.p.o., and bring her to the OR today for exam under anesthesia, possible vaginal laceration repair, hysteroscopy, D&C., 2110 Given the patient's history of a torsion I had an in-depth discussion with her earlier. I did explain that given her history of an ovarian torsion she is clearly at risk for this. I also explained that no one knows her body better than she does. I asked her if she felt as though the symptoms were similar to her prior torsion but she did not have a clear answer. I explained that given she was unsure if the symptoms reminded her of her torsion that it would be best to rule this out. I then spoke with the emergency department at [facility] and placed an order. The order in the patient's demographics were then faxed to [facility] in preparation for transfer. The accepting physician at [facility] was Dr. Francisco Ocampo. He was the emergency physician who had excepted the patient for transvaginal ultrasound. We then called rescue and the patient's transfer paperwork was completed. When rescue arrived the patient asked if she was getting anything else for pain. I explained that at this time given her minimal objective discomfort and chronic pain that narcotics were not indicated at this time. The patient then stated to rescue that she did not want to go to [facility]. I then had another discussion with the patient who told me that she did not want to spend 30 minutes in ambulance to get a 45-minute exam and have to return for another 30 minutes. Again I explained the risks of a missed torsion which included loss of her ovary. She confirmed that she understood these risks and that she did not want to go to [facility].. Impression and Plan Diagnosis Lower abdominal cramping Chronic anemia Plan Disposition: Discharged: to home. Patient was given the following educational materials: Anemia, Anemia. Follow up with: RICARDO RUTH Within 2 to 4 days Call for followup appointment; ANTONINA Motta [facility] Within 2 to 4 days Call for followup appointment. Counseled: Patient. Future Appointments Functional Status 01/17/22 History of Fall in Last 3 Months Zhou N o Recent Travel History No recent travel COVID-19 Screening None Medications Benadryl 25 mg oral capsule 25 mg = 1 cap(s), Oral, Daily, 0 Refill(s) Start Date: 09/27/20 Status: Ordered Colace Oral, BID, 0 Refill(s) Start Date: 09/27/20 Status: Ordered gabapentin 300 mg oral capsule [...] 60 tab(s), 3 Refill(s), [facility]acy: [facility], 2tab(s) Oral Daily,x30 day(s) Start Date: 05/20/20 Stop Date: 09/17/20 Status: Ordered omeprazole Oral, Daily, 0 Refill(s) Start Date: 09/27/20 Status: Ordered ondansetron 4 mg oral tablet, disintegrating 4 mg = 1 tab(s), Oral, q8hr, PRN PRN Nausea/Vomiting, # 20 tab(s), 0 Refill(s), Pharmacy: [facility], 1 tab(s) Oral q8hr,PRN:Nausea/Vomiting, 165, cm, 07/13/21 17:17:00 EST, Height/Length Dosing, 83, kg, 07/13/21 17:17:00 EST, Weight Dosing Start Date: 07/14/21 Status: Ordered ProAir HFA INH, q6hr, 0 Refill(s) Start Date: 09/27/20 Status: Ordered Protonix 40 mg oral delayed release tablet 40 mg = 1 tab(s), Oral, Daily, # 15 tab(s), 0 Refill(s), Pharmacy: [facility], 1tab(s) Oral Daily Start Date: 03/26/20 [...] Nausea/Vomiting, # 30 tab(s), 0 Refill(s), Pharmacy: [facility], 1 tab(s) Oral q8hr,PRN:Nausea/Vomiting Start Date: 02/27/20 Status: Ordered Mental Status 01/17/22 Level of Consciousness Alert Problem List Condition Effective Dates Status Health Status Inform ant Abdominal pain due to injury(Confirmed) Active Asthma(Confirmed) Active Endometriosis(Confirmed) Active Adenomyosis(Confirmed) Active Procedures Procedure Date Related Diagnosis Body Site Status Laparoscopic excision of pel makenzie endometriosis 1 03/17/20 Completed Laparoscopic appendectomy 2 11/2019 Completed D&C - Dilatation and curettage 3 06/2018 Completed Laparoscopy with aspiration 4 01/2018 Completed 1mild endometriosis otherwise normal anatomy 2noted to have endometriosis on appendix 3menorrhagia 4aspiration of endometrioma Results Laboratory List Name Date ABO/Rh. 01/17/22 Antibody Screen Tube 2 01/17/22 Automated Differential Standard 01/17/22 Basic Metabolic Panel Standard (BMP Thad dard) 01/17/22 CBC w/Diff Standard 01/17/22 Test Serum Standard 01/17/22 Most recent to oldest [Reference Range]: 1 ABO/Rh. Interp A POS *Unknown* (01/17/22 8:45 PM) NRBC Auto Pct [0.00-0.20 %] 0.00 % (01/17/22 7:57 PM) ABSC Tube 2 Interp Negative (01/17/22 8:45 PM) Creatinine [0.50-0.90 mg/dL] 0.69 mg/dL (01/17/22 7:57 PM) AGAP [10.0-18.0 mmol/L] 16.8 mmol/L (01/17/22 7:57 PM) Glucose Lvl [70-100 mg/dL] 91 mg/dL (01/17/22 7:57 PM) Hct [34.1-44.9 %] 24.5 % *LOW* (01/17/22 7:57 PM) Hgb [11.5-15.7 gm/dL] 8.1 gm/dL *LOW* (01/17/22 7:57 PM) Lymph Auto [15.0-45.0 %] 35.5 % (01/17/22 7:57 PM) MCH [25.6-32.2 pg] 24.8 pg *LOW* (01/17/22 7:57 PM) MCHC [32.3-36.5 gm/dL] 33.1 gm/dL (01/17/22 7:57 PM) MCV [79.4-94.8 fL] 75.2 fL *LOW* (01/17/22 7:57 PM) Summers Auto [4.0-14.0 %] 8.8 % (01/17/22 7:57 PM) MPV [9.4-12.4 fL] 11.9 fL (01/17/22 7:57 PM) Neutro Auto [50.0-75.0 %] 52.6 % (01/17/22 7:57 PM) Osmolality [268.0-291.0 mOsm/kg] 269.9 m Osm/kg (01/17/22 7:57 PM) Platelet [150-400 x10(3)/uL] 280 x10(3)/ uL (01/17/22 7:57 PM) RBC [3.93-5.22 x10(6)/uL] 3.26 x10(6)/uL *LOW* (01/17/22 7:57 PM) Sodium Lvl [136-145 mmol/L] 136 mmol/L (01/17/22 7:57 PM) Basophil Auto [0.0-2.0 %] 0.9 % (01/17/22 7:57 PM) CO2 [22-29 mmol/L] 22 mmol/L (01/17/22 7:57 PM) Eos Auto [0.0-8.0 %] 1.3 % (01/17/22 7:57 PM) WBC [4.0-10.0 x10(3)/uL] 4.6 x10(3)/uL (01/17/22 7:57 PM) BUN [6-23 mg/dL] 8 mg/dL (01/17/22 7:57 PM) Calcium Lvl [8.6-10.2 mg/dL] 8.9 mg/dL (01/17/22 7:57 PM) Chloride [98-107 mmol/L] 101 mmol/L (01/17/22 7:57 PM) Potassium Lvl [3.5-5.1 mmol/L] 3.8 mmol/ L (01/17/22 7:57 PM) Lymph Absolute [1.20-3.70 x10(3)/uL] 1.6 2 x10(3)/uL (01/17/22 7:57 PM) Summers Absolute [0.20-0.40 x10(3)/uL] 0.40 x10(3)/uL (01/17/22 7:57 PM) Eos Absolute [0.04-0.54 x10(3)/uL] 0.06 x10(3)/uL (01/17/22 7:57 PM) NRBC Absolute [0.00-0.01 x10(3)/uL] 0.00 x10(3)/uL (01/17/22 7:57 PM) Neutro Absolute [1.56-6.13 x10(3)/uL] 2. 40 x10(3)/uL (01/17/22 7:57 PM) RDW-CV [11.7-14.4 %] 18.7 % *HI* (01/17/22 7:57 PM) GFR NonAfrican Kittitian [>=60 mL/min/1.7 3 m2] 105 mL/min/1.73 m2 (01/17/22 7:57 PM) Immature Gran % [0.00-2.30 %] 0.90 % (01/17/22 7:57 PM) Immature Gran Absolute 0.04 x10(3)/uL *NA* (01/17/22 7:57 PM) HCG Qualitative Serum [Negative] Negativ e (01/17/22 7:57 PM) Basophil Absolute [0.00-0.10 x10(3)/uL] 0.04 x10(3)/uL (01/17/22 7:57 PM) Vital Signs Most recent to oldest [Reference Range]: 1 2 Temperature Temporal Artery [36.3-37.8 D egC] 36.9 DegC (01/17/22 7:29 PM) Peripheral Pulse Rate [60-100 bpm] 103 b pm *HI* (01/17/22 9:02 PM) 77 bpm (01/17/22 7:29 PM) Respiratory Rate [14-20 br/min] 16 br/mi n (01/17/22 7:29 PM) Blood Pressure [90-140/60-90 mmHg] 120/6 1mmHg (01/17/22 9:02 PM) 110/59mmHg (01/17/22 7:29 PM) Mean Arterial Pressure, Cuff [65-100 mmH g] 81 mmHg (01/17/22 9:02 PM) Mean Arterial Pressure Cuff-Monitor 78 m mHg (01/17/22 9:02 PM) SpO2 [92-100 %] 99 % (01/17/22 9:02 PM) 99 % (01/17/22 7:29 PM) Height/Length Estimated 164.000 cm (01/17/22 7:29 PM) Height/Length Dosing 164.000 cm (01/17/22 7:35 PM) Weight Estimated 77.110 kg (01/17/22 7:29 PM) Weight Dosing 77.110 kg (01/17/22 7:35 PM) Social History Social History Type Response Smoking Status Never (less than 100 in lifetime) entered on: 07/13/21 Sex Hospital Discharge Instructions Patient Education 01/17/2022 21:24:53 Anemia You were seen in the emergency department for your lower abdominal cramping and lightheadedness. Aswe discussed, I did recommend transfer to [facility] to obtain a transvaginal ultrasound to make sure that you do not have an ovarian torsion. You declined this study at this time. I didexplain the risks include loss of your ovary. Your blood work today shows chronic anemia without any acute changes. Please be sure to return to the emergency department for any worsening of symptoms,continued symptoms, or new symptoms. Please be sure to follow-up with your well driller helper in the next1 to 3 days. Anemia Anemia is a condition in which [...] Follow these instructions at home: ??? Take [id number] and prescription medicines only as told by [...] provider. Document Revised: 04/07/2020 Document Reviewed: 04/07/2020 [employer] Patient Education ?? 2021 [employer] Follow Up Care 01/17/2022 19:12:41 [facility] Address: [address] [place], [place] [id number] Business (1) When:2 to 4 days Comments:Call for followup appointment With:RICARDO RUTH Address: [place] [phone]- Business (1) When:2 to 4 days Comments:Call for followup appointment Patient Care team information Personnel Name: RICARDO RUTH Address: Address: [address]
--- OUTSIDE RECORDS SUMMARY | 2022-11-20 17:52 | XMS_ITS | Continuity of Care Document ---
Author Name Unknown Organization [facility] Address [address] [place] [address]- Care Team Providers Care Manager Insurance Name Role Phone Non-Staff, Physician Primary Care Physician Unav ailable Encounter BVT Date(s): 03/17/20 - 03/17/[address] [address]- Encounter Diagnosis Endometriosis of peritoneum(Discharge Diagnosis) - 03/17/20 Lower abdominal adhesions.(Discharge Diagnosis) - 03/17/20 Discharge Disposition: Home or Self Care Attending Physician: ERIN RAMOS MD Admitting Physician: ERIN RAMOS MD Allergies, Adverse Reactions, Alerts Substance Reaction Severity Status Latex Itching Active penicillins Edema Hives Active Compazine Edema Active Toradol Nausea Active Assessment and Plan Future Appointments Diagnostic Tests Pending * Tissue Request 03/17/20 * Tissue Request 03/17/20 Functional Status 03/17/20 Recent Travel History No recent travel Family Member Travel History No recent t ravel COVID-19 Screening None 03/09/20 History of Falls in Last 3 Months White No ADLs Independent Ambulatory Devices None Medications ibuprofen 800 mg, 0 Refill(s) Start Date: 03/04/20 Status: Ordered morphine 15 mg/8 hr oral tablet, extended release 15 mg = 1 tab(s), Oral, q8hr, X 5 day(s), # 15 tab(s), 0 Refill(s), 03/22/20, [facility]acy: [id number] [place] [address], 1 tab(s) Oral q8hr,x5 day(s) Start Date: 03/17/20 Stop Date: 03/22/20 Status: Ordered norethindrone 5 mg oral tablet 10 mg = 2 tab(s), Oral, Daily, # 180 tab(s), 0 Refill(s) Start Date: 02/18/20 Status: Ordered Orilissa 150 mg oral tablet 150 mg = 1 tab(s), Oral, Daily, # 30 tab(s), 11 Refill(s), Pharmacy: [id number], 1tab(s) Oral Daily Start Date: 02/19/20 Status: Ordered Phenergan 25 mg rectal suppository 25 mg = 1 supp, Per rectum, q8hr, # 21 supp, 0 Refill(s), Pharmacy: [id number], 1 supp Per rectum q8hr Start Date: 03/04/20 Status: Ordered Zofran ODT 4 mg oral tablet, disintegrating 4 mg = 1 tab(s), Oral, q8hr, PRN PRN Nausea/Vomiting, 0 Refill(s) Start Date: 03/17/20 Status: Ordered Zofran ODT 4 mg oral tablet, disintegrating 4 mg = 1 tab(s), Oral, q8hr, PRN PRN Nausea/Vomiting, # 30 tab(s), 0 Refill(s), Pharmacy: [id number], 1 tab(s) Oral q8hr,PRN:Nausea/Vomiting Start Date: 02/27/20 Status: Ordered Mental Status 03/17/20 Level of Consciousness Alert Problem List Condition Effective Dates Status Health Status Inform ant Asthma(Confirmed) Active Endometriosis(Confirmed) Active Procedures Procedure Date Related Diagnosis Body Site Status Laparoscopic appendectomy 11/2019 Completed D&C - Dilatation and curettage 2 06/2018 Completed Laparoscopy with aspiration 3 01/2018 Completed 1noted to have endometriosis on appendix 2menorrhagia 3aspiration of endometrioma Results Laboratory List Name Date Test Urine Standard 03/17/20 Most recent to oldest [Reference Range]: 1 Human Chorionic Gonadotropin Qualitative Negative (03/17/20 6:04 AM) Vital Signs Most recent to oldest [Reference Range]: 1 2 3 Temperature Oral [35.8-37.3 DegC] 37.1 DegC (03/17/20 10:34 AM) 36.9 DegC (03/17/20 10:20 AM) 36.9 DegC (03/17/20 10:05 AM) Temperature Temporal [36.3-37.8 DegC] 37.1 DegC (03/17/20 6:37 AM) Peripheral Pulse Rate [60-100 bpm] 96 bpm (03/17/20 1:00 PM) 106 bpm *HI* (03/17/20 12:00 PM) 92 bpm (03/17/20 11:30 AM) Heart Rate Monitored [60-100 bpm] 84 bpm (03/17/20 10:20 AM) 108 bpm *HI* (03/17/20 10:05 AM) 115 bpm *HI* (03/17/20 9:50 AM) Respiratory Rate [14-20 br/min] 16 br/min (03/17/20 1:00 PM) 16 br/min (03/17/20 12:00 PM) 16 br/min (03/17/20 11:30 AM) Blood Pressure [90-140/60-90 mmHg] 116/70mmHg (03/17/20 1:00 PM) 122/80mmHg (03/17/20 12:00 PM) 112/71mmHg (03/17/20 11:30 AM) SpO2 [92-100 %] 99 % (03/17/20 1:00 PM) 99 % (03/17/20 12:00 PM) 99 % (03/17/20 11:30 AM) Height 162.000 cm (03/09/20 1:43 PM) Height/Length Dosing 162.000 cm (03/09/20 1:43 PM) Weight 73.94 kg (03/17/20 6:27 AM) 72.570 kg (03/09/20 1:43 PM) Weight Measured (lbs) 162.668 lb (03/17/20 6:27 AM) Weight Estimated 73.94 kg (03/17/20 6:27 AM) Weight Dosing 73.94 kg (03/17/20 6:27 AM) 72.570 kg (03/09/20 1:43 PM) Body Mass Index 27.650 kg/m2 (03/09/20 1:43 PM) Social History Social History Type Response Smoking Status Never (less than 100 in lifetime) entered on: 02/18/20 Sex Hospital Discharge Instructions Patient Education 03/17/2020 10:17:57 [facility] BVT Condensed Discharge Instructions [facility] ([facility] [address], [place] [phone] DISCHARGE INSTRUCTIONS [employer] [facility] FOLLOW UP CARE: [phone] See: Dr. Ramos Appointment Date 04/16/2020 at 1:00 PM CALL YOUR DOCTOR IF YOU HAVE ANY OF THESE: Fever, increased bleeding, or increased pain, swelling or redness at the surgical site. Also call if hands, arms, feet, or legs are cold to touch, blue, numb, tingling, or swollen. If you can???t reach your doctor, call either: [facility] 7am ??? 5pm, [facility], Emergency Department, anytime, ACTIVITIES: REST TODAY. Children should not be left alone for the first 24 hours after surgery. For the first 24 hours of surgery: [ X ] DO NOT make important decisions [ X ] DO NOT engage in sports, heavy work, or lifting. [ X ] DO NOT drive [ X ] DO NOT use machinery or tools [ X ] DO NOT drink alcohol As long as you don???t feel sick to your stomach, have nausea or vomiting, progress slowly startingwith: [ ] Liquids [ X ] Light meals,advance to regular as tolerated MEDICATIONS: Your doctor may give you a prescription to take to the drugstore for medication. Use as it describes on the label. When taking something for pain, be careful as you walk, drive, or climb stairs. You may feel dizzy. See [employer]OR [employer] BOG: Post Laproscopy Instructions 03/17/2020 08:49:11 [employer] KIMBERLY BVT Post Laparoscopy (CUSTOM) (TED) [facility] Post Laparoscopy Instructions Signs of Infection: Fever > 100.4 F, progressively increasing abdominal pain, spreading redness and/or drainage of pus from the incision(s). These alone or in combination may indicate an infection of either the incision(s) or within the abdominal cavity, sepecially if a fever is present. If you suspect an infection, please call our office right away, day or night. Wound Care: If not already done, you may remove your dressing(s) within 12-24 hours. You may shower, but do notscrub your incisions for 2 weeks. If you have steri-strip(s), remove them after 72 hours (you may also shower with steri-strips). If a steri- strip is no longer across the incision, remove the entire strip as it is not doing any good. Sometimes stitches or their ends will be visible. Do not pull on or try to remove them from our incision(s)--they will dissolve by 4-6 weeks. Activity: No strenuous activity for 7 days. After that, you may increase your activity as tolerated (i.e. youmay resume normal activity, even lifting heavy objects.). Do not worry, you will not pop any stiches. Remember, however, within the first week after surgery let your body dictate what you should bedoing. If you are experiencing pain, slow down. If you desire to return to work before 7 days, that's ok, as long as you are able to tolerate it. However, I would strongly recommend waiting at least 3 complete days before going back to work. Pelvic Rest: No intercourse, tampons or douching for 2 weeks. This will help reduce the chances of developing aninfection of the uterus. Diet: Eat a sensible, healthy diet. If you find that you are unable to keep down at least fluids, and/or you have persistant vomiting, call our office right away. Medications: Take your medications as prescribed. They are there for pain, so please use them. Please don't try to suffer throught the pain in fear of becoming addicted to the medication. Studies show that only people who take pain medications when they do not have pain are at risk for addiction. Therefore, if you are having pain you will not become addicted. When the narcotics are too strong, switch to Motrin (ibuprofen) or Tylenol (acetaminophen) as prescribed. Bleeding: You may have some vaginal bleeding for several days, possible up to a week. It should no be greather than a heavy period. If the bleeding becomes heavy, or if it lasts longer than 14 days, call the office. Follow-up: you will need an appointment about 2-3 weeks from the time of surgery . If you do not already have an appointment, call the office to arrange one.
--- OUTSIDE RECORDS SUMMARY | 2022-11-20 17:52 | XMS_ITS | Continuity of Care Document ---
Author Name Unknown Organization [facility] Address [address] [place] [address]- Care Team Providers Care Dolly Pusher Name Role Phone NEGRITA RUTH Primary Care Physician Encounter BVT Date(s): 01/06/22 - 01/06/[address] [address]- [place] [phone] Encounter Diagnosis Microcytic anemia(Discharge Diagnosis) - 01/06/22 Abnormal vaginal bleeding(Discharge Diagnosis) - 01/06/22 Discharge Disposition: Home or Self Care Attending Physician: KELSEY BARAJAS APRN Admitting Physician: KELSEY BARAJAS APRN Allergies, Adverse Reactions, Alerts Substance Reaction Severity Status droperidol Moderate Active Latex Itching Active penicillins Edema Hives Active Haldol Moderate Active Compazine Edema Active Toradol Nausea Active Assessment and Plan Extracted from: Title:Vaginal bleeding Author:KELSEY BARAJAS PRN Date:01/06/22 History of Present Illness The patient presents with pelvic pain, vaginal bleeding and no vaginal discharge. The onset was 2 weeks ago. Location: Left pelvis abdomen. Radiating pain: none. The character of symptoms is sharp. The degree of symptoms is severe, heavy bleeding, passing clots, 4 pads per hour. Risk factors consist of recent surgery. HxPI: 21F PMHx Patient spoke to her DIRECTOR CONSUMER's office this morning as she has been instructed to communicate with Dr. Ramos's office about ongoing pelvic cramping and irregular bleeding. She spoke to the clinic today and indicated that her symptoms have gotten worse over the last 24 hours. She notes that for the last 2 weeks she has been having left lower quadrant cramping however in the last 24 hours this pain has become sharp. Associated with nausea and nonbloody nonbilious vomiting and abdominal bloating. Also associated with increased severity and vaginal bleeding with clots. She notes that around 4:00 this morning for 1 hour she had changed a pad 4 or 5 times. She has been taking Tylenol for the cramping but it does not help much. Her irregular bleeding she has been on 10 mg of norethindrone and has been instructed to take an additional 5 mg of norethindrone on days that she bleeds. Context she indicates that she underwent numerous pelvic surgeries secondary to a cervical tear/laceration in the months of October through November of 2021 at [facility]. During her hospitalizations she is indicated that she has gone through multiple blood transfusions, started on iron. PCP: Negrita Ruth Co-Managers: DIRECTOR CONSUMER - Ricahrd Medical Records Reviewed for Collateral: [facility] medical records requested Patient underwent pelvic exam under anesthesia with excision of macerated vaginal tissue and repair of posterior vaginal laceration at [facility] secondary to a traumatic transvaginal ultrasound on 10/25. Her hospital course was complicated by anemia with an H&H of 7 that improved to 9 with blood transfusions she also received 3 units of PRBCs during her hospitalization at [facility]. Discharged on 11/04/2021. This report has been created through the use of voice recognition software. Typographical and content errors may occur with this process. While efforts are made to correct such errors, in some cases, errors will persist. For this reason, wording in this documentation should be considered in the proper context and not strictly verbatim. Please contact the Emergency Department for any further questions. . Review of Systems Constitutional symptoms: Negative except as documented in HPI. Skin symptoms: Negative except as documented in HPI. Eye symptoms: Negative except as documented in HPI. ENMT symptoms: Negative except as documented in HPI. Respiratory symptoms: Negative except as documented in HPI. Cardiovascular symptoms: Negative except as documented in HPI. Gastrointestinal symptoms: Abdominal pain, nausea, vomiting, No diarrhea, Genitourinary symptoms: Vaginal bleeding, no dysuria, no vaginal discharge. Endocrine symptoms: Negative except as documented in HPI. Hematologic/Lymphatic symptoms: Negative except as documented in HPI. Allergy/immunologic symptoms: Negative except as documented in HPI. Health Status Allergies: Allergic Reactions (Selected) Moderate [...] Social History Medical history: Resolved Ovarian torsion ([id number]): Resolved.. Surgical history: Laparoscopic excision of pelvic endometriosis ([id number]) on 03/17/2020 at 20 Years. Comments: 04/16/2020 13:50 ERIN VERMA MD mild endometriosis otherwise normal anatomy Laparoscopic appendectomy ([id number]) in the month of 11/2019 at 19 Years. Comments: 03/04/2020 23:03 ERIN XIONG MD noted to have endometriosis on appendix D&C - Dilatation and curettage ([id number]) in the month of 06/2018 at 18 Years. 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 Exercise Exercise frequency: Daily. Exercise type: Walking. [...] . Physical Examination Vital Signs Vital Signs 01/06/2022 11:57 EDT Peripheral Pulse Rate 70 bpm Respiratory Rate 16 br/min Systolic Blood Pressure 112 mmHg Diastolic Blood Pressure 67 mmHg SpO2 99 % . Measurements 01/06/2022 12:10 EDT Weight Dosing 77.110 kg 01/06/2022 12:10 EDT Height/Length Dosing 164.000 cm 01/06/2022 11:57 EDT Height/Length Estimated 164.000 cm Weight Estimated 77.110 kg . Basic Oxygen Information 01/06/2022 11:57 EDT Oxygen Therapy Room air . General: Alert, no acute distress, Not ill-appearing, Skin: Warm, pink, intact. Neck: Supple. Cardiovascular: Regular rate and rhythm, No murmur, Normal peripheral perfusion, No edema. Respiratory: Lungs are clear to auscultation, respirations are non-labored, breath sounds are equal, Symmetrical chest wall expansion. Chest wall: No tenderness. Back: Nontender. Musculoskeletal: Normal ROM. Gastrointestinal: Soft. Genitourinary: Normal external genitalia, External genitalia: Normal, Speculum exam: Bleeding, blood clots, no laceration, Bimanual exam: Adnexa, uterine, tenderness, no cervix motion tenderness. Neurological: Alert and oriented to person, place, time, and situation, No focal neurological deficit observed, CN II-XII intact, normal sensory observed, normal motor observed, normal speech observed, normal coordination observed. Medical Decision Making Differential Diagnosis: Vaginal bleeding, vaginal discharge, pelvic pain, ectopic . Results review: Lab results : Lab View 01/06/2022 13:21 EDT WBC 4.5 x10(3)/uL RBC 3.70 x10(6)/uL LOW Hgb 8.1 gm/dL LOW Hct 26.7 % LOW MCV 72.2 fL LOW MCH 21.9 pg LOW MCHC 30.3 gm/dL LOW RDW-CV 15.3 % HI Platelet 286 x10(3)/uL MPV 13.0 fL HI Neutro Auto 59.1 % Lymph Auto 30.5 % Charlton Auto 7.1 % Eos Auto 1.8 % Basophil Auto 1.1 % NRBC Auto Pct 0.00 % Neutro Absolute 2.68 x10(3)/uL Lymph Absolute 1.38 x10(3)/uL Charlton Absolute 0.32 x10(3)/uL Eos Absolute 0.08 x10(3)/uL NRBC Absolute 0.00 x10(3)/uL Basophil Absolute 0.05 x10(3)/uL Immature Gran % 0.40 % Immature Gran Absolute 0.02 x10(3)/uL NA Sodium Lvl 136 mmol/L Potassium Lvl 3.5 mmol/L Chloride 102 mmol/L CO2 25 mmol/L AGAP 12.5 mmol/L BUN 9 mg/dL Creatinine 0.67 mg/dL GFR NonAfrican Icelandic 110 mL/min/1.73 m2 Glucose Lvl 80 mg/dL Calcium Lvl 9.2 mg/dL Total Protein 6.9 gm/dL Albumin Lvl 4.50 gm/dL Alk Phos 65 IntUnit/L ALT 19 IntUnit/L AST 26 IntUnit/L Bili Total 0.5 mg/dL Osmolality 269.6 mOsm/kg HCG Qualitative Serum Negative . Radiology results: US (ST) Ultrasound: ?? US Transvaginal Non-OB ?? 01/06/22 14:43:22 EXAMINATION: US Transvaginal Non-OB CLINICAL HISTORY: LLQ pain, Hx torsion, abnormal vaginal bleeding PROCEDURE: Grayscale and color Doppler imaging of the pelvis was performed. FINDINGS: The uterus is unremarkable and measures 7 x 4 x 3 cm.(LxWxH). Endometrium appears normal and measures approximately 6 mm. The right ovary is overall unremarkable and measures 2.6 x 2 x 1.4 cm. The left ovary is overall unremarkable and measures 3 x 3.2 x 1.9 cm. IMPRESSION: Unremarkable ultrasound of the pelvis. Thank you for letting us participate in the care of this patient. If you are a health care provider and have any questions regarding this report, please contact the number below. For patients who have questions please contact the health acute care nurse that requested your imaging first. ?? Signed By: SHIVA OROZCO . Notes: Assessment: This is a 21F followed by APPLICATIONS PROGRAMMER for endometriosis, abnormal vaginal/uterine bleeding, with upcoming APPLICATIONS PROGRAMMER appt with Dr. Ramos in approx 2 weeks. PEx demonstrates FRB in vaginal vault, diffue pelvic pain, absence of CMT. Plan: - Labs to assess for anemia, anticipate NUPUR - Serum - Analgesia, antiemetics - TVUS - APPLICATIONS PROGRAMMER consult Progress Notes: Reassessment and disposition planning: Given copy of ultrasound report. Labs and imaging results disclosed to pt at bedside. Discussed reccs from APPLICATIONS PROGRAMMER to change from norethidrone to Sprintec for abnormal vaginal bleeding. Pt agrees with plan and is amenable to d/c. I have reviewed all emergency department results, imaging, and other data regarding emergency department encounter with the patient directly. I have reviewed return precautions, including when to seek emergency department reevaluation, with the patient. They verbalized their understanding of these return precautions. I have verbally discussed with this patient the recommendations for care for themselves at home as well as next steps regarding follow-up in the outpatient setting. They have verbalized their understanding of these discharge instructions. They have verbalized their intent to follow discharge instructions as described. They are amenable to discharge. They deny having and any additional questions or concerns at the time of their emergency department discharge. . Reexamination/ Reevaluation Notes: 4819: Spoke with Dr. Armando who is aware of case, agrees with plan for TVUS. 1508: US unremarkable. PRIMARY OPERATOR repaged [phone]: Spoke with Dr. Armando who is reocmmending Sprintec PO TID for 7 days followed by 1 tab daily until follow up. . Impression and Plan Diagnosis Microcytic anemia ([id number]-FM D50.9, Discharge, Medical) Calls-Consults - DIRECTOR CONSUMER Dr. Armando. Plan Condition: Stable. Disposition: Medically cleared, Discharged: time 01/06/2022 15:50:00. Prescriptions: Launch prescriptions Pharmacy: Sprintec 0.25 mg-35 mcg oral tablet (Prescribe): See Instructions, Take 1 tab by mouth three times a day for 7 days, then take 1 tab by mouth daily, 56 tab(s), 0 Refill(s). Patient was given the following educational materials: Abnormal Uterine Bleeding, Udpo-oc-Muja, Abnormal Uterine Bleeding, Gwsm-xc-Tudg, Abnormal Uterine Bleeding, Upww-gq-Emoq, Work/School Excuse ([place]). Follow up with: NEGRITA RUTH Within 1 week; ANTONINA Motta DIRECTOR CONSUMER Within 5 to 7 days, ANTONINA Motta DIRECTOR CONSUMER Within 5 to 7 days; NEGRITA RUTH Within 1 week. Counseled: Patient, Regarding diagnosis, Regarding diagnostic results, Regarding treatment plan, Regarding prescription, Patient indicated understanding of instructions. Sexually transmitted disease prophylaxis Orders: Launch Orders Patient Care: Discharge Patient (Order): 01/06/2022 15:53 EDT, Condition on Discharge: Stable. Future Appointments Functional Status 01/06/22 Recent Travel History No recent travel Family Member Travel History No recent t sania COVID-19 Screening None Medications Benadryl 25 mg oral capsule 25 mg = 1 cap(s), Oral, Daily, 0 Refill(s) Start Date: 09/27/20 Status: Ordered Colace Oral, BID, 0 Refill(s) Start Date: 09/27/20 Status: Ordered Diflucan 150 mg oral tablet 150 mg = 1 tab(s), Oral, Once, # 1 tab(s), 0 Refill(s), [facility]: [facility], 1 tab(s) Oral Once Start Date: 07/31/20 Status: Ordered ethinyl estradiol-norgestimate 35 mcg-0.25 mg oral tablet See Instructions, TAKE 1 TABLET BY MOUTH 3 TIMES A DAY FOR 7 DAYS. THEN TAKE 1 TABLET BY MOUTH ONCEDAILY, # 56 tab(s), 0 Refill(s), [facility]acy: [id number], TAKE 1 TABLET BY MOUTH 3 TIMES A DAY FOR 7 DAYS. THEN TAKE 1 TABLET BY MOUTH ONCE DAILY, 16... Start Date: 01/06/22 Status: Ordered gabapentin 300 mg oral capsule [...] 0 Refill(s) Start Date: 09/27/20 Status: Ordered MetroGel-Vaginal 0.75% vaginal gel with applicator 1 marta, VAG, Once a day (at bedtime), # 70 gm, 0 Refill(s), Pharmacy: [facility], 1 marta VAG Once a day (at bedtime),x5 day(s) Start Date: 08/06/20 Stop Date: 08/11/20 Status: Ordered MetroGel-Vaginal 0.75% vaginal gel with applicator 1 marta, VAG, Once, # 70 gm, 0 Refill(s), Pharmacy: [facility], 1 marta VAG Once Start Date: 07/31/20 Status: Ordered MiraLax 17 gm 1 packet(s), Oral, Daily, 0 Refill(s) Start Date: 09/27/20 Status: Ordered montelukast 4 mg oral granule mg EA, Oral, Daily, 0 Refill(s) Start Date: 09/27/20 Status: Ordered norethindrone 5 mg oral tablet 10 mg = 2 tab(s), Oral, Daily, # 60 tab(s), 3 Refill(s), [facility]acy: [facility], 2tab(s) Oral Daily,x30 day(s) Start Date: 05/20/20 Stop Date: 09/17/20 Status: Ordered omeprazole Oral, Daily, 0 Refill(s) Start Date: 09/27/20 Status: Ordered ondansetron 4 mg oral tablet, disintegrating 4 mg = 1 tab(s), Oral, q8hr, PRN PRN Nausea/Vomiting, # 20 tab(s), 0 Refill(s), Pharmacy: [facility], 1 tab(s) Oral q8hr,PRN:Nausea/Vomiting, 165, cm, 07/13/21 17:17:00 EST, Height/Length Dosing, 83, kg, 07/13/21 17:17:00 EST, Weight Dosing Start Date: 07/14/21 Status: Ordered ProAir HFA INH, q6hr, 0 Refill(s) Start Date: 09/27/20 Status: Ordered Protonix 40 mg oral delayed release tablet 40 mg = 1 tab(s), Oral, Daily, # 15 tab(s), 0 Refill(s), Pharmacy: [facility], 1tab(s) Oral Daily Start Date: 03/26/20 Status: [...] Nausea/Vomiting, # 30 tab(s), 0 Refill(s), Pharmacy: [facility], 1 tab(s) Oral q8hr,PRN:Nausea/Vomiting Start [...] Date Urinalysis with Culture, if indicated [facility] 01/06/22 Automated Differential Standard 01/06/22 CBC w/Diff Standard 01/06/22 Comprehensive Metabolic Panel Standard Test Serum Standard 01/06/22 Urinalysis Microscopic Standard 01/06/22 Most recent to oldest [Reference Range]: 1 Urine Culture? No (01/06/22 3:05 PM) NRBC Auto Pct [0.00-0.20 %] 0.00 % (01/06/22 1:21 PM) Creatinine [0.50-0.90 mg/dL] 0.67 mg/dL (01/06/22 1:21 PM) UA Bacteria [None Seen] None Seen (01/06/22 3:05 PM) UA Bili [NEGATIVE] NEGATIVE *NA* (01/06/22 3:05 PM) UA Blood [NEGATIVE] Small *ABN* (01/06/22 3:05 PM) UA Color YELLOW *NA* (01/06/22 3:05 PM) UA Glucose [Negative] NEGATIVE *NA* (01/06/22 3:05 PM) UA Ketones [NEGATIVE] NEGATIVE *NA* (01/06/22 3:05 PM) UA Leuk Est [NEGATIVE] NEGATIVE (01/06/22 3:05 PM) UA Mucous Slight *ABN* (01/06/22 3:05 PM) UA Nitrite [NEGATIVE] NEGATIVE (01/06/22 3:05 PM) UA Protein [NEGATIVE] NEGATIVE (01/06/22 3:05 PM) UA RBC [0-2] 0-2 (01/06/22 3:05 PM) UA Urobilinogen [<1.0 mg/dL] 0.2 EU/dL (01/06/22 3:05 PM) UA WBC 0-2 (01/06/22 3:05 PM) AGAP [10.0-18.0 mmol/L] 12.5 mmol/L (01/06/22 1:21 PM) Glucose Lvl [70-100 mg/dL] 80 mg/dL (01/06/22 1:21 PM) Hct [34.1-44.9 %] 26.7 % *LOW* (01/06/22 1:21 PM) Hgb [11.5-15.7 gm/dL] 8.1 gm/dL *LOW* (01/06/22 1:21 PM) Lymph Auto [15.0-45.0 %] 30.5 % (01/06/22 1:21 PM) MCH [25.6-32.2 pg] 21.9 pg *LOW* (01/06/22 1:21 PM) MCHC [32.3-36.5 gm/dL] 30.3 gm/dL *LOW* (01/06/22 1:21 PM) MCV [79.4-94.8 fL] 72.2 fL *LOW* (01/06/22 1: PM) Charlton Auto [4.0-14.0 %] 7.1 % (01/06/22 1: PM) MPV [9.4-12.4 fL] 13.0 fL *HI* (01/06/22 1: PM) Neutro Auto [50.0-75.0 %] 59.1 % (01/06/22 1: PM) Osmolality [268.0-291.0 mOsm/kg] 269.6 m Osm/kg (01/06/22 1:21 PM) Platelet [150-400 x10(3)/uL] 286 x10(3)/ uL (01/06/22 1:21 PM) RBC [3.93-5.22 x10(6)/uL] 3.70 x10(6)/uL *LOW* (01/06/22 1:21 PM) Sodium Lvl [136-145 mmol/L] 136 mmol/L (01/06/22 1:21 PM) Total Protein [6.6-8.7 gm/dL] 6.9 gm/dL (01/06/22 1:21 PM) UA pH [4.6-8.0] 7.5 (01/06/22 3:05 PM) Albumin Lvl [3.50-5.20 gm/dL] 4.50 gm/dL (01/06/22 1:21 PM) Alk Phos [35-105 IntUnit/L] 65 IntUnit/L (01/06/22 1:21 PM) ALT [0-33 IntUnit/L] 19 IntUnit/L (01/06/22 1:21 PM) AST [0-32 IntUnit/L] 26 IntUnit/L (01/06/22 1:21 PM) Basophil Auto [0.0-2.0 %] 1.1 % (01/06/22 1: PM) Bili Total [0.0-1.3 mg/dL] 0.5 mg/dL (01/06/22 1:21 PM) CO2 [22-29 mmol/L] 25 mmol/L (01/06/22 1:21 PM) Eos Auto [0.0-8.0 %] 1.8 % (01/06/22 1: PM) UA Spec Grav [1.000-1.035] 1.015 (01/06/22 3:05 PM) WBC [4.0-10.0 x10(3)/uL] 4.5 x10(3)/uL (01/06/22 1:21 PM) BUN [6-23 mg/dL] 9 mg/dL (01/06/22 1: PM) Calcium Lvl [8.6-10.2 mg/dL] 9.2 mg/dL (01/06/22 1:21 PM) Chloride [98-107 mmol/L] 102 mmol/L (01/06/22 1: PM) Potassium Lvl [3.5-5.1 mmol/L] 3.5 mmol/ L (01/06/22 1: PM) Micro? [Not Indicated] Indicated *ABN* (01/06/22 3:05 PM) Lymph Absolute [1.20-3.70 x10(3)/uL] 1.3 8 x10(3)/uL (01/06/22 1:21 PM) Charlton Absolute [0.20-0.40 x10(3)/uL] 0.32 x10(3)/uL (01/06/22 1:21 PM) Eos Absolute [0.04-0.54 x10(3)/uL] 0.08 x10(3)/uL (01/06/22 1:21 PM) NRBC Absolute [0.00-0.01 x10(3)/uL] 0.00 x10(3)/uL (01/06/22 1:21 PM) UA Clarity CLEAR *NA* (01/06/22 3:05 PM) Neutro Absolute [1.56-6.13 x10(3)/uL] 2. 68 x10(3)/uL (01/06/22 1:21 PM) RDW-CV [11.7-14.4 %] 15.3 % *HI* (01/06/22 1:21 PM) GFR NonAfrican Icelandic [>=60 mL/min/1.7 3 m2] 110 mL/min/1.73 m2 (01/06/22 1:21 PM) UA Squam Epi Few *ABN* (01/06/22 3:05 PM) UA Trans Epi Rare *ABN* (01/06/22 3:05 PM) Immature Gran % [0.00-2.30 %] 0.40 % (01/06/22 1:21 PM) Immature Gran Absolute 0.02 x10(3)/uL *NA* (01/06/22 1:21 PM) HCG Qualitative Serum [Negative] Negativ e (01/06/22 1:21 PM) Basophil Absolute [0.00-0.10 x10(3)/uL] 0.05 x10(3)/uL (01/06/22 1:21 PM) Radiology Reports * Exam Date Time Procedure Performing Provider Status 01/06/22 2:24 PM US Transvaginal Non-OB Noreen Gordon; Auth (Verified) Notes: (US Transvaginal Non-OB) Reason For Exam: LLQ pain, Hx torsion, abnormal vaginal bleeding US Transvaginal Non-OB EXAMINATION: US Transvaginal Non-OB CLINICAL HISTORY: LLQ pain, Hx torsion, abnormal vaginal bleeding PROCEDURE: Grayscale and color Doppler imaging of the pelvis was performed. FINDINGS: The uterus is unremarkable and measures 7 x 4 x 3 cm.(LxWxH). Endometrium appears normal and measures approximately 6 mm. The right ovary is overall unremarkable and measures 2.6 x 2 x 1.4 cm. The left ovary is overall unremarkable and measures 3 x 3.2 x 1.9 cm. IMPRESSION: Unremarkable ultrasound of the pelvis. Thank you for letting us participate in the care of this patient. If you are a health care provider and have any questions regarding this report, please contact the number below. For patients who have questions please contact the health acute care nurse that requested your imaging first. Final Dictated: 01/06/2022 2:43 pm SHIVA OROZCO Signed (Electronic Signature): 01/06/2022 2:43 pm Signed by: SHIVA OROZCO Technologist: Noreen Gordon Vital Signs Most recent to oldest [Reference Range]: 1 2 Peripheral Pulse Rate [60-100 bpm] 59 bp m *LOW* (01/06/22 4:38 PM) 70 bpm (01/06/22 11:57 AM) Respiratory Rate [14-20 br/min] 16 br/mi n (01/06/22 11:57 AM) Blood Pressure [90-140/60-90 mmHg] 106/7 9mmHg (01/06/22 4:38 PM) 112/67mmHg (01/06/22 11:57 AM) SpO2 [92-100 %] 98 % (01/06/22 4:38 PM) 99 % (01/06/22 11:57 AM) Height/Length Estimated 164.000 cm (01/06/22 11:57 AM) Height/Length Dosing 164.000 cm (01/06/22 12:10 PM) Weight Estimated 77.110 kg (01/06/22 4:38 PM) 77.110 kg (01/06/22 11:57 AM) Weight Dosing 77.110 kg (01/06/22 12:10 PM) Social History Social History Type Response Smoking Status Never (less than 100 in lifetime) entered on: 07/13/21 Sex Hospital Discharge Instructions Patient Education 01/06/2022 16:17:13 Work/School Excuse ([place]UR[place]) Work/School Excuse [facility] Emergency Department Date: 01/06/2022 Please excuse Eduardo from Work. The patient was seen today in the ED. Patient may return: 01/07/2022 Provider: Viviana Barajas DNP, CUT PRESSMAN, SENIOR MOBILE DEVELOPER-C Signature: 01/06/2022 16:17:13 Abnormal Uterine Bleeding, Mnwx-az-Zzac You were seen in the emergency department today for evaluation of pelvic pain and vaginal bleeding. You have been diagnosed with abnormal uterine/vaginal bleeding. The emergency department you received the following as part of your work-up: Physical examination, laboratory evaluation, transvaginal ultrasound, pelvic exam, telephonic consultation with DIRECTOR CONSUMER. DIRECTOR CONSUMER is recommending that you discontinue your use of norethindrone. Instead, please start takingthe Sprintec that has been sent to your pharmacy: [facility]. Please contact the DIRECTOR CONSUMER to facilitate confirming your upcoming appointment. You may treat your pain and discomfort with 650 mg of acetaminophen (Tylenol) every 4-6 hours as needed for pain. You may also take your ondansetron (Zofran) as previously prescribed for nausea. Please return to the emergency department for the following: Feeling faint or passing out, chest pain, shortness of breath, persistent or projectile vomiting, or any other concerns for which you would like to be evaluated. Enck you for choosing [facility] as a partner in your care today. Abnormal Uterine Bleeding Abnormal uterine bleeding means bleeding more than usual from your womb (uterus). It can include: ??? Bleeding between menstrual periods. ??? Bleeding after sex. ??? Bleeding that is heavier than normal. ??? Menstrual periods that last longer than usual. ??? Bleeding after you have stopped having your menstrual period (menopause). There are many problems that may cause this. You should see a doctor for any kind of bleeding that is not normal. Treatment depends on the cause of the bleeding. Follow these instructions at home: Medicines ??? Take uxtk-ykr-rtjpyyx and prescription medicines only as told by your doctor. ??? Tell your doctor about other medicines that you take. ??? If told by your doctor, stop taking aspirin or medicines that have aspirin in them. These medicines can make you bleed more. ??? You may be given iron pills to replace iron that your body loses because of this condition. Take them as told by your doctor. Managing constipation If you are taking iron pills, you may have trouble pooping (constipation). To prevent or treat trouble pooping, you may need to: ??? Drink enough fluid to keep your pee (urine) pale yellow. ??? Take vyxs-zby-ngmmypj or prescription medicines. ??? Eat foods that are high in fiber. These include beans, whole grains, and fresh fruits and vegetables. ??? Limit foods that are high in fat and sugar. These include fried or sweet foods. General instructions ??? Watch your condition for any changes. ??? Do not use tampons, douche, or have sex, if your doctor tells you not to. ??? Change your pads often. ??? Get regular exams. This includes pelvic exams and cervical cancer screenings. ??? It is up to you to get the results of any tests that are done. Ask your doctor, or the department that is doing the tests, when your results will be ready. ??? Keep all follow-up visits as told by your doctor. This is important. Contact a doctor if: ??? The bleeding lasts more than 1 week. ??? You feel dizzy at times. ??? You feel like you may vomit (nausea). ??? You vomit. ??? You feel light-headed or weak. ??? Your symptoms get worse. Get help right away if: ??? You pass out. ??? You have to change pads every hour. ??? You have pain in your belly. ??? You have a fever or chills. ??? You get sweaty. ??? You get weak. ??? You pass large blood clots from your vagina. Summary ??? Abnormal uterine bleeding means bleeding more than usual from your womb (uterus). ??? Any kind of bleeding that is not normal should be checked by a doctor. ??? Treatment depends on the cause of the bleeding. ??? Get help right away if you pass out, you have to change pads every hour, or you pass large blood clots from your vagina. This information is not intended to replace advice given to you by your health care provider. Make sure you discuss any questions you have with your health care provider. Document Revised: 03/03/2020 Document Reviewed: 03/03/2020 [employer] Patient Education ?? 2021 [employer] Follow Up Care 01/06/2022 11:42:08 With:ANTONINA Motta DIRECTOR CONSUMER Address: [address] [place] [address] [address] [place] [address]- Business (1) When:5 to 7 days With:NEGRITA RUTH Address: [address] [address]- Business (1) When:1 week US Pelvis transvaginal * PALUCH, SHIVA: VERIFY, VERIFY, PERFORM Event Display: Report Authored Date: [id number] EXAMINATION: US Transvaginal Non-OB CLINICAL HISTORY: LLQ pain, Hx torsion, abnormal vaginal bleeding PROCEDURE: Grayscale and color Doppler imaging of the pelvis was performed. FINDINGS: The uterus is unremarkable and measures 7 x 4 x 3 cm.([id number]). Endometrium appears normal and measures approximately 6 mm. The right ovary is overall unremarkable and measures 2.6 x 2 x 1.4 cm. The left ovary is overall unremarkable and measures 3 x 3.2 x 1.9 cm. IMPRESSION: Unremarkable ultrasound of the pelvis. Thank you for letting us participate in the care of this patient. If you are a health care provider and have any questions regarding this report, please contact the number below. For patients who have questions please contact the health acute care nurse that requested your imaging first. Final Dictated: 01/06/2022 2:43 pm SHIVA OROZCO Signed (Electronic Signature): 01/06/2022 2:43 pm Signed by: SHIVA OROZCO Technologist: Noreen Gordon Patient Care team information Personnel Name: ISRAEL RUTHTANY Address: Address: [address]
--- OUTSIDE RECORDS SUMMARY | 2022-11-20 17:52 | XMS_ITS | Continuity of Care Document ---
Author Name Unknown Organization [facility] Address Unknown Care Team Providers Care Analytics Analyst Name Role Phone No Local PCP, No Local PCP Primary Care Physicia n Unavailable Encounter Date(s): 04/20/22 - 04/23/22 [facility] [address], [place] [address] Encounter Diagnosis Menorrhagia(Discharge Diagnosis) - 04/20/22 Discharge Disposition: Home or Self Care Attending Physician: YESSENIA MARTIN MD Admitting Physician: TOMMY GARCIA MD Referring Physician: TOMMY GARCIA MD Allergies, Adverse Reactions, Alerts Substance Reaction Severity Status penicillin Anaphylactic reaction Severe Active droperidol Vomiting Tongue swelling Shaking all over Tetanus Hives Severe Active Latex Hives Mild Active Haldol Anaphylactic reaction Severe Active Compazine Tetanus Vomiting Tongue swelling Shaking all over Hives Severe Active Toradol Hives Mild Active Assessment and Plan Extracted from: Title:Physician Progress Note Author:FRANCIS ALANIZ MD Date:04/23/22 22 y.o. on HD #4 for va ginal bleeding and anemia Patient is not wearing a pad or a panty liner??overnight.?? Reviewed with her that this would be unusual as we are treating her??for heavy vaginal bleeding episodes and??she was admitted for the same. ??She has only had 2 doses of estrogen therapy and??that would not be enough to alleviate??a heavy bleeding episode from the uterus.?? She states that she is able to predict the bleeding??and knew she was not going to have any bleeding and therefore did not wear a pad. ??She also states that she has run out of pads.?? She however did not??ask for any pads. ?? Reviewed with her the plan for discharge home today.?? She will see if she can get a ride from her boyfriend. ??She states that she would not be able to leave??until later this morning. ?? I will not be sending her home with any medications??as there is a concern for misuse of??her current medication regimen at home. As it is unusual for 2 doses of oral estrogen therapy to alleviate??an episode of heavy vaginal bleeding so quickly,??will discontinue oral estrogen therapy and not use any further??hormonal methods, TXA or others??to alleviate heavy vaginal bleeding. ?? Reviewed with the patient that if she had another episode of bleeding prior to leaving the hospital, I would return to do a detailed??pelvic and vaginal exam??to try and find the source of bleeding. Review of her medical record reveals that her last pelvic exam??was on December 06, 2021??during her emergency room visit??and ORTHOPEDIC SURGEON consultation.?? Several other records including her admission notes, ED evaluations and gynecology evaluation states that pelvic exam??was deferred.?? She has had multiple admissions??through the emergency room and to the gynecology service since??January 2022. ?? Outpatient psychiatric evaluation??will be arranged??through her PCP in [place]??or her??ORTHOPEDIC SURGEON in [place]. ? Extracted from: Title:Physician Progress Note Author:FRANCIS ALANIZ MD Date:04/22/22 22 y.o. female on HD #3 for menorrhagia, anemia.?? Doing well on??estrogen therapy which has just been initiated.?? No active bleeding at all??per vagina. Stable vital signs. ??Stable labs. Patient??strongly desires remaining on her Dilaudid??and wishes it to be every 2 hours. ??She also wants it IV as she states it works better for her. ?? We reviewed today that??at her previous visit with me, she was instructed to stop using norethindrone therapy??due to the significant atrophic endometrium visualized on ultrasound imaging studies.?? Ultrasound has repeatedly shown her endometrial stripe to be between 3 mm??or less.?? It has been 5 mm on 1 imaging study??and that is the thickest??it has been. ??Due to the significant atrophic endometrium,??we reviewed in detail the effect of??excessive progestin therapy on??causing more bleeding episodes.?? At her previous visit??through the emergency room with me, I had recommended that she stop norethindrone??as it is likely contributing to heavy bleeding episodes. ?? She states that she takes 20 mg of norethindrone??3 times a day whenever she has heavy bleeding.?? I reviewed with her that a 5 mg dose??at a time??is the average dose for this medication.?? 20 mg several times a day would??induce significant??atrophic bleeding. ?? I reviewed with the patient that unscheduled vaginal bleeding with progestin therapy can be fairly common and is reported in 9% to 53% of women using progestin only methods.?? Bleeding patterns can range from amenorrhea to unpredictable timing with varying degrees of flow to normal monthly menses. Unscheduled bleeding or spotting has been consistently demonstrated as a side effect for all progestin only methods.?? I reviewed that although the etiology for such bleeding is poorly understood, there appear to be multiple contributors to the problem. Unscheduled bleeding is likely influenced by type and dose of progestin, how the progestin is delivered, duration of use, and specific effects to the endometrium because of the mechanism of action.?? A leading cause of unscheduled bleeding with initiation is thought to be secondary to the rapid endometrial thinning effects of progestins. As women continue their method, sustained exposure??can lead to??endometrial angiogenesis disruption, resulting in the development of a dense venous network that is fragile and prone to unscheduled vaginal bleeding.?? This was discussed with diagrams used to facilitate the discussion.? The patient was unfortunately not very interested in??this discussion. She was??obsessed with her IV site??and kept picking at it. She also started discussing other nurses and physicians who have??recently taken care of her and started??pitting them??against each other based on different actions??and recommendations and perceptions??of the patient.?? There is concern for bipolar??personality disorder, Munchhausen's disease,??borderline personality disorder or others.?? This has been referenced in some of her??older gynecology records??from outside??facilities.?? She may benefit from a psychiatric evaluation. ?? I reviewed with her that I would return to??assess her for any further episodes of vaginal bleeding.?? I recommended that she let us know if this recurs.?? She voiced understanding. ? Extracted from: Title:Physician Progress Note Author:LAVINIA CHRIS MD Date:04/22/22 22 yo female with DUB and an emia.?? Reviewed recommended plan from pt hygiene assistant in [place].?? Pt adamantly declines levonorgestrel IUD.?? Pt does not want to pursue any definitive management at present.?? Interested in hysterectomy but doesn't want to pursue this here in [place].?? Declines DH referral.?? 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 ?? Amenable to transitioning to Premarin therapy for bleeding.?? norethindrone and TXA not working sufficiently.?? Premarin 2.5mg po QID ordered.?? anti-emetics ordered also.?? transition to PO pain regimen.?? 2uprbcs today and hopefully home tomorrow. ?? Extracted from: Title:Clinical Document Author:YESSENIA MARTIN MD D ate:04/22/22 Patient was followed today b y me regarding her ORTHOPEDIC SURGEON bleeding To me, it sounds a localized issue in the uterus possibly related to her History of endometriosis. I will repeat coagulation test but beside transfusing her and observing her Until her bleeding stops there is nothing that I can think of. I will sign off following the patient. Please let me know if you need me to follow-up with the patient Extracted from: Title:Physician Progress Note Author:TOMMY Inman MD Date:04/21/22 1.?? Menorrhagia??leading to ??acute worsening of her??chronic blood loss anemia.?? Patient seems to be stabilizing again using??oral Norethin drone??and??TXA.?? I had telephone conversation??with a staff member at this patient's usual paratransit operator??in [facility].?? It was shared with me that the primary plan??was for neck step to be Mirena IUD insertion.?? Per the office staff they were waiting for patient to agree??to an insertion appointment.?? Also on their management plan is??referral that has already been placed to associate professor of library media at [facility].?? Also mentioned was??her usual paratransit operator might be working on??abdominal pelvic MRI. I appreciate the consultation by Dr. Hazel Tuttle. Patient has expressed to me that she is still undecided??about having Mirena IUD placed??by her primary paratransit operator??or??by myself or one of our??providers. ?? Extracted from: Title:History & Physical Author:TOMMY GARCIA MD Date:04/20/22 22-year-old G0 female??with frequent episodes of??severe menstrual bleeding leading to??need for??hospitalization and transfusion is going to be admitted today for??presentation of another episode.?? I have had telephone conversation with hospitalist who will do consult.?? We are in agreement that patient will be admitted to??progressive care unit??for the potential of??active decompensation??secondary to her??unpredictable??escalation of bleeding episodes.?? She has received IV DDAVP,??IV Zofran, IV TXA??and IV Dilaudid??serial dosing. Diagnostic Tests Pending * MRSA Culture 04/22/22 * MRSA Culture 04/22/22 * MRSA Culture 04/22/22 Functional Status 04/23/22 ADLs Independent Medications Albuterol (Eqv-ProAir HFA) 90 mcg/inh inhalation [...] Start Date: 01/21/22 Status: Ordered Mental Status 04/23/22 Level of Consciousness Alert Orientation Assessment Oriented x 4 Problem List Condition Effective Dates Status Health Status Inform ant Anemia(Confirmed) Active Anxiety(Confirmed) Active Asthma(Confirmed) Active Depression(Confirmed) Active Endometriosis(Confirmed) Active Methicillin resistant Staphy lococcus aureus(Confirmed) 1, 2 04/03/21 Active Vaginal bleeding(Confirmed) Active 1Urine Culture from Urine, NOS collected on 03/30/21 22:54:00 EST tested positive for MRSA. Problem updated by Discern Expert on April 03, 2021 09:06:45 EST 2Problem added by Rule (LH_IC_MDRO_MRSA) following Urine Culture from Urine, NOS collected on 30-MAR-2021 22:54:00 EST tested positive for MRSA. Results Laboratory List Name Date Red Blood Cells (Blood Bank RBC) 04/22/22 Hemoglobin and Hematocrit 04/22/22 PT/INR 04/22/22 PTT 04/22/22 Red Blood Cells (Blood Bank RBC) 04/22/22 .Estimated Glomerular Filtration Rate Basic Metabolic Panel 04/22/22 CBC 04/22/22 .Estimated Glomerular Filtration Rate Basic Metabolic Panel (BMP) 04/21/22 CBC 04/21/22 ABO/Rh 04/20/22 ABO/Rh Recheck 04/20/22 Antibody Screen Gel 04/20/22 Crossmatch IS 04/20/22 Red Blood Cells (Blood Bank RBC) 04/20/22 .Estimated Glomerular Filtration Rate Auto Differential 04/20/22 Basic Metabolic Panel 04/20/22 CBC Auto Diff reflex Manual Diff 04/20/22 HCG Quantitative 04/20/22 Most recent to oldest [Reference Range]: 1 2 3 ABSCR-G Interpretation Negative ABSC (04/20/22 5:32 PM) Has this individual had a transplant? No (04/22/22 2:25 PM) No (04/22/22 12:12 PM) No (04/20/22 5:04 PM) Product Ready See Comment 1 (04/22/22 2:25 PM) Ready 2 (04/22/22 12:12 PM) Ready 3 (04/20/22 5:04 PM) BBID [id number] *Unknown* (04/20/22 5:32 PM) ABO/Rh Interpretation A POS *Unknown* (04/20/22 5:32 PM) ABORh ReCheck Interpretation A POS *Unknown* (04/20/22 5:32 PM) AGAP 7 *NA* (04/22/22 6:01 AM) 6 *NA* (04/21/22 3:24 PM) 7 *NA* (04/20/22 4:12 PM) INR 1.1 *NA* (04/22/22 12:30 PM) PT [9.4-12.5 second(s)] 11.9 second(s) (04/22/22 12:30 PM) PTT [25.1-37.0 second(s)] 31.5 second(s) (04/22/22 12:30 PM) RBC [4.00-5.20 x10(6)/mcL] 2.94 x10(6)/m cL *LOW* (04/22/22 6:01 AM) 3.20 x10(6)/mcL *LOW* (04/21/22 3:24 PM) 2.96 x10(6)/mcL *LOW* (04/20/22 4:12 PM) RDW [11.5-14.5 %] 17.9 % *HI* (04/22/22 6:01 AM) 17.5 % *HI* (04/21/22 3:24 PM) 17.8 % *HI* (04/20/22 4:12 PM) Sodium Level [136-145 mmol/L] 141 mmol/L (04/22/22 6:01 AM) 139 mmol/L (04/21/22 3:24 PM) 139 mmol/L (04/20/22 4:12 PM) CO2 [21-32 mmol/L] 26 mmol/L (04/22/22 6:01 AM) 26 mmol/L (04/21/22 3:24 PM) 27 mmol/L (04/20/22 4:12 PM) Hct [36.0-46.0 %] 25.4 % *LOW* (04/22/22 12:30 PM) 25.0 % *LOW* (04/22/22 6:01 AM) 25.9 % *LOW* (04/21/22 3:24 PM) Hgb [12.0-15.0 gm/dL] 8.1 gm/dL *LOW* (04/22/22 12:30 PM) 7.5 gm/dL *LOW* (04/22/22 6:01 AM) 8.4 gm/dL *LOW* (04/21/22 3:24 PM) MCH [26.0-34.0 pg] 25.5 pg *LOW* (04/22/22 6:01 AM) 26.3 pg (04/21/22 3:24 PM) 25.7 pg *LOW* (04/20/22 4:12 PM) MCHC [31.0-37.0 gm/dL] 30.0 gm/dL *LOW* (04/22/22 6:01 AM) 32.4 gm/dL (04/21/22 3:24 PM) 31.4 gm/dL (04/20/22 4:12 PM) MCV [80-100 fL] 85 fL (04/22/22 6:01 AM) 81 fL (04/21/22 3:24 PM) 82 fL (04/20/22 4:12 PM) MPV [9.2-12.7 fL] 10.9 fL (04/22/22 6:01 AM) 11.8 fL (04/21/22 3:24 PM) 11.0 fL (04/20/22 4:12 PM) Glucose Level [74-106 mg/dL] 104 mg/dL (04/22/22 6:01 AM) 103 mg/dL (04/21/22 3:24 PM) 86 mg/dL (04/20/22 4:12 PM) Platelet [150-350 x10(3)/mcL] 187 x10(3)/mcL (04/22/22 6:01 AM) 192 x10(3)/mcL (04/21/22 3:24 PM) 248 x10(3)/mcL (04/20/22 4:12 PM) Potassium Level [3.5-5.1 mmol/L] 3.8 mmol/L (04/22/22 6:01 AM) 3.2 mmol/L *LOW* (04/21/22 3:24 PM) 3.2 mmol/L *LOW* (04/20/22 4:12 PM) WBC [4.5-11.0 x10(3)/mcL] 4.9 x10(3)/mcL (04/22/22 6:01 AM) 7.1 x10(3)/mcL (04/21/22 3:24 PM) 7.8 x10(3)/mcL (04/20/22 4:12 PM) BUN [7-18 mg/dL] 5 mg/dL *LOW* (04/22/22 6:01 AM) 8 mg/dL (04/21/22 3:24 PM) 9 mg/dL (04/20/22 4:12 PM) Calcium Level [8.5-10.1 mg/dL] 7.9 mg/dL *LOW* (04/22/22 6:01 AM) 8.1 mg/dL *LOW* (04/21/22 3:24 PM) 8.7 mg/dL (04/20/22 4:12 PM) Chloride [98-107 mmol/L] 112 mmol/L *HI* (04/22/22 6:01 AM) 110 mmol/L *HI* (04/21/22 3:24 PM) 108 mmol/L *HI* (04/20/22 4:12 PM) hCG Qnt [1-3 mIU/mL] <1 mIU/mL (04/20/22 4:12 PM) eGFR AA >60 mL/min/1.73 m2 *NA* (04/22/22 6:01 AM) >60 mL/min/1.73 m2 *NA* (04/21/22 3:24 PM) >60 mL/min/1.73 m2 *NA* (04/20/22 4:12 PM) eGFR BRUNO >60 mL/min/1.73 m2 *NA* (04/22/22 6:01 AM) >60 mL/min/1.73 m2 *NA* (04/21/22 3:24 PM) >60 mL/min/1.73 m2 *NA* (04/20/22 4:12 PM) Neutrophil Absolute [1.50-7.80 x10(3)/mcL] 6.02 x10(3)/mcL (04/20/22 4:12 PM) Lymphocyte Absolute [1.10-4.80 x10(3)/mcL] 1.18 x10(3)/mcL (04/20/22 4:12 PM) Monocyte Absolute 0.29 x10(3)/mcL *NA* (04/20/22 4:12 PM) Eosinophil Absolute 0.19 x10(3)/mcL *NA* (04/20/22 4:12 PM) Basophil Absolute 0.06 x10(3)/mcL *NA* (04/20/22 4:12 PM) Imm Gran Absolute 0.02 /mcL *NA* (04/20/22 4:12 PM) NRBC % [0.0-0.2 %] 0.0 % (04/22/22 6:01 AM) 0.0 % (04/21/22 3:24 PM) 0.0 % (04/20/22 4:12 PM) Eosinophil Auto [1.0-4.0 %] 2.4 % (04/20/22 4:12 PM) Immature Granulocyte Auto 0 % *NA* (04/20/22 4:12 PM) Lymphocyte Auto [24.0-44.0 %] 15.2 % *LOW* (04/20/22 4:12 PM) Monocyte Auto [2.0-11.0 %] 3.7 % (04/20/22 4:12 PM) Neutrophil Auto [31.0-76.0 %] 77.6 % *HI* (04/20/22 4:12 PM) Basophil Auto [0.0-2.0 %] 0.8 % (04/20/22 4:12 PM) Creatinine [0.6-1.3 mg/dL] 0.7 mg/dL (04/22/22 6:01 AM) 0.7 mg/dL (04/21/22 3:24 PM) 0.8 mg/dL (04/20/22 4:12 PM) 1Result Comment: 04/22/2022 2:30 PM NEIL Spoke with Uzma MAYO. This order was for nursing orders. Two units are ready from Dr Cadena's order. 2Result Comment: 04/22/2022 12:41 PM NEIL The blood products requested for this patient are ready. Product availability called to gilbert. 3Result Comment: 04/20/2022 6:26 PM RAMAN The blood products requested for this patient are ready. Product availability called to Eloina in ED. Vital Signs Most recent to oldest [Reference Range]: 1 2 3 Temperature Oral [35.8-37.3 DegC] 37.1 DegC (04/23/22 7:45 AM) 37.1 DegC (04/23/22 3:20 AM) 36.8 DegC (04/22/22 8:45 PM) Temperature Temporal Artery [36.3-37.8 DegC] 37.2 DegC (04/22/22 12:05 PM) 37.3 DegC (04/22/22 9:20 AM) 36.9 DegC (04/22/22 2:14 AM) Peripheral Pulse Rate [60-100 bpm] 62 bpm (04/23/22 7:45 AM) 63 bpm (04/23/22 3:20 AM) 68 bpm (04/22/22 8:45 PM) Heart Rate Monitored [60-100 bpm] 69 bpm (04/21/22 1:20 PM) 67 bpm (04/21/22 12:32 PM) 57 bpm *LOW* (04/21/22 12:31 PM) Respiratory Rate [14-20 br/min] 16 br/min (04/23/22 7:45 AM) 16 br/min (04/23/22 3:20 AM) 18 br/min (04/22/22 8:45 PM) Blood Pressure [90-140/60-90 mmHg] 105/65mmHg (04/23/22 7:45 AM) 107/57mmHg (04/23/22 3:20 AM) 101/52mmHg (04/22/22 8:45 PM) Mean Arterial Pressure, Cuff 70 mmHg (04/23/22 3:20 AM) 64 mmHg (04/22/22 8:45 PM) 83 mmHg (04/22/22 7:45 PM) Blood Pressure 96/50mmHg (04/22/22 2:23 AM) 118/62mmHg (04/20/22 2:30 PM) Social History Social History Type Response Tobacco Tobacco Use: Denies. Sex Female Hospital Discharge Instructions Patient Education 04/23/2022 06:33:25 Menorrhagia, Thnk-xs-Nnny Menorrhagia Menorrhagia is when your monthly periods are heavy or last longer than normal. If you have this condition, bleeding and cramping may make it hard for you to do your daily activities. What are the causes? Common causes of this condition include: ??? Growths in the womb (uterus). These are polyps or fibroids. These growths are not cancer. ??? Problems with two hormones called estrogen and progesterone. ??? One of the ovaries not releasing an egg during one or more months. ??? A problem with the thyroid gland. ??? Having a device for control (IUD). ??? Side effects of some medicines, such as NSAIDs or blood thinners. ??? A disorder that stops the blood from clotting normally. What increases the risk? You are more likely to have this condition if you have cancer of the womb. What are the signs or symptoms? Having to change your pad or tampon every [...] of low iron levels (anemia), such as feeling tired or having shortness of breath. How is this treated? You may not need to be treated for this condition. But if you need treatment, you may be given medicines: ??? To reduce bleeding during your period. These include control medicines. ??? To make your blood thick. This slows bleeding. ??? To reduce swelling. Medicines that do this include ibuprofen. ??? That have a hormone called progestin. ??? That make the ovaries stop working for a short time. ??? To treat low iron levels. You will be given iron pills if you have this condition. If medicines do not work, surgery may be done. Surgery may be done to: ??? Remove a part of the lining of the womb. This lining is called the endometrium. This reduces bleeding during a period. ??? Remove growths in the womb. These may be polyps or fibroids. ??? Remove the entire lining of the womb. ??? Remove the womb entirely. This procedure is called a hysterectomy. Follow these instructions at home: Medicines ??? Take qalh-tyv-bpcibwx and prescription medicines only as told by your doctor. This includes iron pills. ??? Do not change or switch medicines without asking your doctor. ??? Do not take aspirin or medicines that contain aspirin 1 week before or during your period. Aspirin may make bleeding worse. Managing constipation Iron pills may cause trouble pooping (constipation). To prevent or treat problems when pooping, youmay need to: ??? Drink enough fluid to keep your pee (urine) pale yellow. ??? Take pbie-sgv-wureduw or prescription medicines. ??? Eat foods that are high in fiber. These include beans, whole grains, and fresh fruits and vegetables. ??? Limit foods that are high in fat and sugar. These include fried or sweet foods. General instructions ??? If you need to change your pad or tampon more than once every 2 hours, limit your activity until the bleeding stops. ??? Eat healthy meals and foods that are high in iron. Foods that have a lot of iron include: ??? Leafy green vegetables. ??? Meat. ??? Liver. ??? Eggs. ??? Whole-grain breads and cereals. ??? Do not try to lose weight until your heavy bleeding has stopped and you have normal amounts of iron in your blood. If you need to lose weight, work with your doctor. ??? Keep all follow-up visits. Contact a doctor if: ??? You soak through a pad or tampon every 1 or 2 hours, and this happens every time you have a period. ??? You need to use pads and tampons at the same time because you are bleeding so much. ??? You are taking medicine, and: ??? You feel like you may vomit. ??? You vomit. ??? You have watery poop (diarrhea). ??? You have other problems that may be related to the medicine you are taking. Get help right away [...] weak or tired. Summary ??? Menorrhagia is when your menstrual periods are heavy or last longer than normal. ??? You may not need to be treated for this condition. If you need treatment, you may be given medicines or have surgery. ??? Take kuqa-wgj-cjrhhgt and prescription medicines only as told by your doctor. This includes iron pills. ??? Get help right away if you soak through more than a pad or tampon in 1 hour or you pass large clots. Also, get help right away if you feel dizzy, short of breath, or very weak or tired. This information is not intended to replace advice given to you by your health care provider. Make sure you discuss any questions you have with your health care provider. Document Revised: 01/12/2021 Document Reviewed: 01/12/2021 Elsevier Patient Education ?? 2021 [employer]. Physician Progress Note * FRANCIS REYES MD: PERFORM Event Display: Physician Progress Note Authored Date: [id number] Physician Progress Note Subjective/24 Hour Events HD #4 for vaginal bleeding and anemia ?? Patient is sleeping.?? She reports having significant cramping throughout the night.?? She would like to know when she can get another dose of Dilaudid and Benadryl.?? States that she is also having some nausea.?? She received her Dilaudid and Benadryl??approximately an hour ago and??she was informed that it would be 3 more hours until she could get that dose. ?? We also held her estrogen??overnight as she has not had any bleeding??after receiving only 2 doses. ?? She states that she has not had any further bleeding. ?? Objective Vitals & Measurements T:??37.1?C??(Oral)?? TMIN:??36.8?C??(Oral)?? TMAX:??37.3?C??(Temporal Artery)?? HR:??63??(Peripheral)?? RR:??16?? BP:??107/57?? SpO2:??99%?? HT:??167??cm?? Physical Exam GENERAL APPEARANCE: Normal appearing female, pleasant mood, normal speech, weight healthy. HEENT: Head - Normocephalic, atraumatic.?? Eyes- pupil pills are equal, round and reactive to light, extraocular movements are intact, normal conjunctiva. ORAL CAVITY: normal, clear, no lesions. Mucous membranes are moist. No rashes, lesions or ulcers. ABDOMEN: no palpable masses or organomegaly, soft, non-tender, no appreciable hernia.?? FEMALE PELVIC EXAM:??[place], [place]???s and [place] glands normal, urethra without tenderness or mass.?? She is not using a pad or a panty liner. ??Underwear only.?? No bleeding at all. NEUROLOGIC EXAM: Grossly intact, no deficits SKIN: Skin of abdomen and pelvis normal. EXTREMITIES: Full ROM, no limitations. PERIPHERAL PULSES: normal (2+) bilaterally. PSYCHIATRIC:?? Appropriate mood and affect.?? Assessment/Plan 22 y.o. on HD #4 for vaginal bleeding and anemia Patient is not wearing a pad or a panty liner??overnight.?? Reviewed with her that this would be unusual as we are treating her??for heavy vaginal bleeding episodes and??she was admitted for the same. ??She has only had 2 doses of estrogen therapy and??that would not be enough to alleviate??a heavybleeding episode from the uterus.?? She states that she is able to predict the bleeding??and knew she was not going to have any bleeding and therefore did not wear a pad. ??She also states that she has run out of pads.?? She however did not??ask for any pads. ?? Reviewed with her the plan for discharge home today.?? She will see if she can get a ride from her boyfriend. ??She states that she would not be able to leave??until later this morning. ?? I will not be sending her home with any medications??as there is a concern for misuse of??her current medication regimen at home. As it is unusual for 2 doses of oral estrogen therapy to alleviate??an episode of heavy vaginal bleeding so quickly,??will discontinue oral estrogen therapy and not use any further??hormonal methods,TXA or others??to alleviate heavy vaginal bleeding. ?? Reviewed with the patient that if she had another episode of bleeding prior to leaving the hospital, I would return to do a detailed??pelvic and vaginal exam??to try and find the source of bleeding. Review of her medical record reveals that her last pelvic exam??was on December 06, 2021??during her emergency room visit??and ORTHOPEDIC SURGEON consultation.?? Several other records including her admission notes, ED evaluations and gynecology evaluation states that pelvic exam??was deferred.?? She has had multiple admissions??through the emergency room and to the gynecology service since??January 2022. ?? Outpatient psychiatric evaluation??will be arranged??through her PCP in [place]??or her??Lukas Motta. ?? Time Spent with Patient I spent 60 minutes on the unit caring the patient, more than half of it in [id number] discussion with the patient reviewing the findings above and discussing??ongoing management for the same.?? Thepatient was ready to learn, no apparent learning barriers were identified; learning preferences included listening. Explained diagnosis and treatment plan; patient expressed understanding of the content.?? She was given the opportunity to ask questions and all of her questions were answered to her satisfaction.?? Results Lab Results Hematology Hct:??25.4 %??Low Hgb:??8.1 gm/dL??Low INR: 1.1 Electronically Signed By: FRANCIS REYES MD Date and Time Signed: 04/23/22 06:54 EST * FRANCIS REYES MD: MODIFY, MODIFY, PERFORM, MODIFY, MODIFY Event Display: Physician Progress Note Authored Date: Physician Progress Note Subjective/24 Hour Events HD #3 for vaginal bleeding and anemia ?? Patient states that she is not having any bleeding.?? States that she does not need to be examined.??States that she is not having any bleeding. ??States she has a headache??and some cramping. ?? She wants to stay on??IV Dilaudid every 2 hours. ??States that oral Dilaudid does not work for her and causes nausea.?? She also wants Benadryl every 4 hours as it is helping her nausea.?? She does not wish to transition to oral pain medicine. ?? States that she has an appointment with her [facility] in [place]??next week. States that they will do an urgent appointment for her ?? She is eating and drinking well. ??She had [employer] for dinner. She is voiding on her own ? Objective Vitals & Measurements T:??37.1?C??(Oral)?? TMIN:??36.9?C??(Oral)?? TMAX:??37.3?C??(Temporal Artery)?? HR:??66??(Peripheral)?? RR:??18?? BP:??103/77?? SpO2:??100%?? HT:??167??cm?? Physical Exam GENERAL APPEARANCE: Normal appearing female, pleasant mood, [...] Bowel sounds x4 quadrants FEMALE PELVIC EXAM:??[place], [place]???s and [place] glands normal, urethra without tenderness or mass. Scant pink discharge on a light pad.?? No active or heavy bleeding LYMPH NODES: no axillary nodes, cervical nodes, supraclavicular nodes. NEUROLOGIC EXAM: Grossly intact, no deficits SKIN: Skin of abdomen and pelvis normal. EXTREMITIES: Full ROM, no limitations. PERIPHERAL PULSES: normal (2+) bilaterally. BACK: without point tenderness, no lesions. PSYCHIATRIC:?? Appropriate mood and affect.?? Assessment/Plan 22 y.o. female on HD #3 for menorrhagia, anemia.?? Doing well on??estrogen therapy which has just been initiated.?? No active bleeding at all??per vagina. Stable vital signs. ??Stable labs. Patient??strongly desires remaining on her Dilaudid??and wishes it to be every 2 hours. ??She also wants it IV as she states it works better for her. ?? We reviewed today that??at her previous visit with me, she was instructed to stop using norethindrone therapy??due to the significant atrophic endometrium visualized on ultrasound imaging studies.?? Ultrasound has repeatedly shown her endometrial stripe to be between 3 mm??or less.?? It has been 5 mm on 1 imaging study??and that is the thickest??it has been. ??Due to the significant atrophic endometrium,??we reviewed in detail the effect of??excessive progestin therapy on??causing more bleedingepisodes.?? At her previous visit??through the emergency room with me, I had recommended that she stop norethindrone??as it is likely contributing to heavy bleeding episodes. ?? She states that she takes 20 mg of norethindrone??3 times a day whenever she has heavy bleeding.?? I reviewed with her that a 5 mg dose??at a time??is the average dose for this medication.?? 20 mg several times a day would??induce significant??atrophic bleeding. ?? I reviewed with the patient that unscheduled vaginal bleeding with progestin therapy can be fairly common and is reported in 9% to 53% of women using progestin only methods.?? Bleeding patterns can range from amenorrhea to unpredictable timing with varying degrees of flow to normal monthly menses. U nscheduled bleeding or spotting has been consistently demonstrated as a side effect for all progestin only methods.?? I reviewed that although the etiology for such bleeding is poorly understood, there appear to be multiple contributors to the problem. Unscheduled bleeding is likely influenced by type and dose of progestin, how the progestin is delivered, duration of use, and specific effects to the endometrium because of the mechanism of action.?? A leading cause of unscheduled bleeding with initiation is thought to be secondary to the rapid endometrial thinning effects of progestins. As women continue their method, sustained exposure??can lead to??endometrial angiogenesis disruption, resulting in the development of a dense venous network that is fragile and prone to unscheduled vaginal bleeding.?? This was discussed with diagrams used to facilitate the discussion.? The patient was unfortunately not very interested in??this discussion. She was??obsessed with her IV site??and kept picking at it. She also started discussing other nurses and physicians who have??recently taken care of her and started??pitting them??against each other based on different actions??and recommendations and perceptions??of the patient.?? There is concern for bipolar??personality disorder, Munchhausen's disease,??borderline personality disorder or others.?? This has been referenced in some of her??older gynecology records??from outside??facilities.?? She may benefit from a psychiatric evaluation. ?? I reviewed with her that I would return to??assess her for any further episodes of vaginal bleeding.?? I recommended that she let us know if this recurs.?? She voiced understanding. Time Spent with Patient I spent 60 minutes on the unit caring the patient, more than half of it in [id number] discussion with the patient reviewing the findings above and discussing??ongoing management for the same.?? Thepatient was ready to learn, no apparent learning barriers were identified; learning preferences included listening. Explained diagnosis and treatment plan; patient expressed understanding of the content.?? She was given the opportunity to ask questions and all of her questions were answered to her satisfaction.?? Results Lab Results Chemistry BUN:??5 mg/dL??Low Calcium Level:??7.9 mg/dL??Low Chloride:??112 mmol/L??High Creatinine: 0.7 mg/dL Glucose Level: 104 mg/dL Potassium Level: 3.8 mmol/L Sodium Level: 141 mmol/L Hematology Hct:??25.4 %??Low Hgb:??8.1 gm/dL??Low INR: 1.1 Platelet: 187 x10(3)/mcL RBC:??2.94 x10(6)/mcL??Low WBC: 4.9 x10(3)/mcL Electronically Signed By: FRANCIS REYES MD Date and Time Signed: 04/22/22 20:55 EST * LAVINIA CADENA MD: PERFORM, MODIFY Event Display: Physician Progress Note Authored Date: Physician Progress Note Subjective/24 Hour Events 22-year-old G0 female is on hospital day #2??for??recurrent episodes of menorrhagia with suspected bleeding dyscrasia.?? Bleeding??has patient in state of chronic anemia with acute episodes of??moderate to severe anemia. Ongoing gushes of bleeding today x several episodes. c/o crampy abdominal pain Objective Vitals & Measurements T:??37.3?C??(Temporal Artery)?? TMIN:??36.4?C??(Temporal Artery)?? TMAX:??37.3?C??(Temporal Artery)?? HR:??71??(Peripheral)?? RR:??18?? BP:??100/58?? SpO2:??100%?? Physical Exam nad ext wwp, nt declines pelvic exam Assessment/Plan 22 yo female with DUB and anemia.?? Reviewed recommended plan from pt hygiene assistant in [place].?? Pt adamantly declines levonorgestrel IUD.?? Pt does not want to pursue any definitive management at present.?? Interested in hysterectomy but doesn't want to pursue this here in [place].?? Declines DH referral.?? happy with current hygiene assistant but states current hygiene assistant won't do hyst 2/2 young age.??I am concerned forMgeorgiahausen's behavior in this patient. ?? Amenable to transitioning to Premarin therapy for bleeding.?? norethindrone and TXA not working sufficiently.?? Premarin 2.5mg po QID ordered.?? anti- emetics ordered also.?? transition to PO pain regimen.?? 2uprbcs today and hopefully home tomorrow. Time Spent with Patient I spent??60 minutes on the unit caring the patient, more than half of it in [id number] discussionwith the patient reviewing the findings above and discussing??ongoing management for the same.?? The patient was ready to learn, no apparent learning barriers were identified; learning preferences included listening. Explained diagnosis and treatment plan; patient expressed understanding of the content.?? She was given the opportunity to ask questions and all of her questions were answered to hersatisfaction.?? Results Lab Results Chemistry BUN:??5 mg/dL??Low Calcium Level:??7.9 mg/dL??Low Chloride:??112 mmol/L??High Creatinine: 0.7 mg/dL Glucose Level: 104 mg/dL Potassium Level: 3.8 mmol/L Sodium Level: 141 mmol/L Hematology Hct:??25 %??Low Hgb:??7.5 gm/dL??Low Platelet: 187 x10(3)/mcL RBC:??2.94 x10(6)/mcL??Low WBC: 4.9 x10(3)/mcL Electronically Signed By: LAVINIA CADENA MD Date and Time Signed: 04/22/22 21:01 NAZARIO * YESSENIA MARTIN MD: PERFORM Event Display: Physician Progress Note Authored Date: Patient was followed today by me regarding her ORTHOPEDIC SURGEON bleeding To me, it sounds a localized issue in the uterus possibly related to her History of endometriosis. I will repeat coagulation test but beside transfusing her and observing her Until her bleeding stops there is nothing that I can think of. I will sign off following the patient. Please let me know if you need me to follow-up with the patient Electronically Signed By: YESSENIA MARTIN MD Date and Time Signed: 04/22/22 11:28 EST * TOMMY GARCIA MD: MODIFY, PERFORM Event Display: Physician Progress Note Authored Date: [id number] Physician Progress Note Subjective/24 Hour Events 22-year-old G0 female is on hospital day #2??for??recurrent episodes of menorrhagia with suspected bleeding dyscrasia.?? Bleeding??has patient in state of chronic anemia with acute episodes of??moderate to severe anemia. ??Today she is post transfusion of 1 unit packed red blood cells??from yesterday.?? Morning??H&H shows??slight improvement.?? Patient is feeling??some improvement??in regardsto the bleeding and cramping??but there are still intermittent episodes??of little bursts of bleeding and a lot of nausea and vomiting.?? Also notable is that she is running??relatively??lower blood p ressures. Objective Vitals & Measurements T:??36.4?C??(Temporal Artery)?? TMIN:??36.4?C??(Temporal Artery)?? TMAX:??37.3?C??(Temporal Artery)?? HR:??80??(Peripheral)?? RR:??16?? BP:??94/53?? SpO2:??99%?? HT:??167??cm?? WT:??73.6??kg?? WT:??73.6??kg??(Dosing)?? Physical Exam GENERAL: This is a well-groomed, well-nourished female, in no acute distress. She is alert and oriented x3. Speaking in full sentences clearly and without difficulty. LUNGS: Unlabored respirations on room air. SKIN: Normal to slight pale??in color. Without visible rashes. NEURO: No deficits noted, normal movement patterns. PSYCH: Appropriate with full affect. Pelvic exam:??Is again deferred per patient preference because she had pelvic exam??in emergency room??1-2 times over the??past 4 days. ?? Assessment/Plan 1.?? Menorrhagia??leading to??acute worsening of her??chronic blood loss anemia.?? Patient seems beth stabilizing again using??oral Norethin drone??and??TXA.?? I had telephone conversation??with a staff member at this patient's usual paratransit operator??in [facility].?? It was shared with me that the primary plan??was for neck step to be Mirena IUD insertion.?? Per the office staff they were waiting for patient to agree??to an insertion appointment.?? Also on their management plan is??referral that has already been placed to associate professor of library media at [facility].?? Also mentioned was??her usual paratransit operator might be working on??abdominal pelvic MRI. I appreciate the consultation by Dr. Hazel Tuttle. Patient has expressed to me that she is still undecided??about having Mirena IUD placed??by her primary paratransit operator??or??by myself or one of our??providers. Results Lab Results Chemistry BUN: 8 mg/dL Calcium Level:??8.1 mg/dL??Low Chloride:??110 mmol/L??High Creatinine: 0.7 mg/dL Glucose Level: 103 mg/dL Potassium Level:??3.2 mmol/L??Low Sodium Level: 139 mmol/L Hematology Hct:??25.9 %??Low Hgb:??8.4 gm/dL??Low Platelet: 192 x10(3)/mcL RBC:??3.2 x10(6)/mcL??Low WBC: 7.1 x10(3)/mcL Electronically Signed By: TOMMY GARCIA MD Date and Time Signed: 04/21/22 16:43 EST * Hazel Tuttle MD: PERFORM Event Display: Physician Progress Note Authored Date: [id number] Physician Progress Note Subjective/24 Hour Events Patient??states that she??is feeling better from a lightheadedness and dizziness perspective today.??However, she notes significant??nausea, vomiting.?? She does note that this is common for her when she takes TXA??but unfortunately she is allergic to a lot of different??antinausea medications.?? Zofran has not been helpful for controlling her symptoms.?? Patient does note that she has been able to tolerate??oral hydration. Objective Vitals & Measurements T:??37.3?C??(Temporal Artery)?? TMIN:??36.6?C??(Temporal Artery)?? TMAX:??37.3?C??(Oral)??HR:??67??(Monitored)?? RR:??18?? BP:??99/53?? SpO2:??99%?? HT:??167??cm?? WT:??73.6??kg?? WT:??73.6??kg??(Dosing)?? Physical Exam General: Alert, oriented, well-nourished. No acute distress??although appears uncomfortable. HEENT: Head is normocephalic and atraumatic. Oral mucosa is moist. No nasal discharge. PERRL, EOM intact.?? Extremely poor dentition. Respiratory: No increased work of breathing or accessory muscle use. Abdominal/GI: Soft, nontender, nondistended. No guarding or rebound. Skin: Warm and dry. ??Normal color, no rashes. Psychiatric: Patient is cooperative with normal affect and behavior. Assessment/Plan Patient is a??22-year-old female with past medical history of recurrent episodes of heavy vaginal bleeding who presents to the hospital with yet another episode.?? She??was symptomatic with some dizziness??and found to have acute blood loss anemia with a hemoglobin of??7.6??status post 2 units PRBC. ?Symptoms of anemia have improved??but patient is having some side effects??from??TXA. ?? 1.?? Acute blood loss anemia??secondary to menorrhagia ?Repeat CBC and BMP now. ?If hemoglobin remains stable,??patient would be??appropriate for discharge. ?? 2.?? History of menorrhagia, likely bleeding dyscrasia ?Recommend??continued outpatient hematology follow-up. ?? 3.?? Nausea and vomiting secondary to??medication ?We will give a dose of Benadryl now. ??? Continue Zofran as needed. ??? Tolerating oral intake,??likely able to go home with some Zofran. ?? 4.?? Anxiety and depression ?Continue home sertraline, trazodone, hydroxyzine. ?? 5. ??Chronic pain ??? Continue home gabapentin and tizanidine. ?? 6.?? Asthma ??? Continue home montelukast and albuterol??as needed. ?? Disposition:??Follow-up??hemoglobin, once stable could likely discharge. ??Thank you for this consultation,??we will continue to follow along while the patient is admitted.? Results Lab Results Chemistry BUN: 9 mg/dL Calcium Level: 8.7 mg/dL Chloride:??108 mmol/L??High Creatinine: 0.8 mg/dL Glucose Level: 86 mg/dL Potassium Level:??3.2 mmol/L??Low Sodium Level: 139 mmol/L Hematology Hct:??26 %??Low Hgb:??8.2 gm/dL??Low Platelet: 248 x10(3)/mcL RBC:??2.96 x10(6)/mcL??Low WBC: 7.8 x10(3)/mcL Electronically Signed By: Hazel Tuttle MD Date and Time Signed: 04/21/22 12:50 EST Consult note * Hazel Tuttle MD: PERFORM Event Display: Consultation Authored Date: Consultation Note History of Present Illness Patient is a 22-year-old female with past medical history of??unknown bleeding dyscrasia??with numerous previous transfusions??who presented to the hospital today due to??large amount of vaginal bleeding. ??Patient states that??she began having another episode of vaginal bleeding about 3 days ago??for which she started taking TXA??without??relief.?? She notes that this is happened multiple times in the past and she has required??around 20 transfusions.?? She does endorse some mild dizziness with standing and walking??but otherwise denies any chest pain, shortness of breath, or syncopal events.?? No fevers, chills, nausea, vomiting, or abdominal pain. ?? On arrival to the emergency room, patient has stable normal vital signs. ??Lab work is remarkable for acute anemia??with a hemoglobin of 7.6.. ??She was provided with 1 unit of PRBC in the emergency room??and admitted??by gynecology??for further treatment. Review of Systems A 10 point review of systems was completed and found to be negative except as stated in the HPI.?? Physical Exam Vitals & Measurements T:??36.9?C??(Oral)?? TMIN:??36.8?C??(Oral)?? TMAX:??37.3?C??(Oral)?? HR:??95??(Peripheral)?? RR:??18?? BP:??119/62?? SpO2:??98%?? General: Alert, oriented, well-nourished. No acute distress. HEENT: Head is normocephalic and atraumatic. Oral mucosa is moist. No nasal discharge. PERRL, EOM intact.?? Extremely poor dentition. Respiratory: Clear to auscultation bilaterally with normal aeration throughout. ??No increased workof breathing or accessory muscle use. Cardiovascular: Regular rate and rhythm. No murmur rub or gallop. ??No JVD or peripheral edema. Abdominal/GI: Positive bowel sounds x4. Soft, nontender, nondistended. No guarding or rebound. Neurologic: No focal deficits. Alert and oriented x3. Sensation intact. Skin: Warm and dry. ??Normal color, no rashes. Psychiatric: Patient is cooperative with normal affect and behavior. Lab Results Chemistry BUN: 9 mg/dL (04/20/22 16:12:00) Calcium Level: 8.7 mg/dL (04/20/22 16:12:00) Chloride:??108 mmol/L??High (04/20/22 16:12:00) Creatinine: 0.8 mg/dL (04/20/22 16:12:00) Glucose Level: 86 mg/dL (04/20/22 16:12:00) hCG Qnt: <1 (04/20/22 16:12:00) Potassium Level:??3.2 mmol/L??Low (04/20/22 16:12:00) Sodium Level: 139 mmol/L (04/20/22 16:12:00) Hematology Hct:??24.2 %??Low (04/20/22 16:12:00) Hgb:??7.6 gm/dL??Low (04/20/22 16:12:00) Platelet: 248 x10(3)/mcL (04/20/22 16:12:00) RBC:??2.96 x10(6)/mcL??Low (04/20/22 16:12:00) WBC: 7.8 x10(3)/mcL (04/20/22 16:12:00) Assessment/Plan Patient is a??22-year-old female with past medical history of recurrent episodes of heavy vaginal bleeding who presents to the hospital with yet another episode.?? She is symptomatic with some dizziness??and found to have acute blood loss anemia with a hemoglobin of??7.6. ??She is receiving 1 unit of PRBCs currently. ?? 1.?? Acute blood loss anemia??secondary to menorrhagia ?Receiving 1 unit PRBC now. ? Recommend continued monitoring of H&H. ?Further treatment per primary team. ?? 2.?? History of menorrhagia, likely bleeding dyscrasia ?Recommend??continued outpatient hematology follow-up. ?? 3.?? Asthma ??? Continue home montelukast and albuterol??as needed. ?? 4.?? Anxiety and depression ?Continue home sertraline, trazodone, hydroxyzine. ?? 4. ??Chronic pain ??? Continue home gabapentin and tizanidine. ?? Disposition:??Admit to the hospital for??treatment of acute blood loss anemia. ??Thank you for this consultation, please feel free to reach out with further questions or concerns. Coordination of Care Patient discussed with ED staff, paratransit operator. ??All patient questions answered. Problem List/Past Medical History Ongoing Anemia Anxiety Asthma Depression Endometriosis Methicillin resistant Staphylococcus aureus Vaginal bleeding Historical No qualifying data Medications Inpatient acetaminophen, 650 mg= 2 tab(s), Oral, q6hr, PRN Dilaudid, 1 mg= 1 mL, IV Push, q2hr, PRN LR 1,000 mL, 1000 mL, IV norethindrone acetate, 10 mg= 2 tab(s), Oral, BID NS 500 mL, 500 mL, IV ondansetron, 4 mg= 2 mL, IV Push, q6hr, PRN Home Albuterol (Eqv-ProAir HFA) 90 mcg/inh inhalation [...] Use Tobacco Use: Denies. Electronically Signed By: Hazel Tuttle MD Date and Time Signed: 04/20/22 20:53 EST History and physical note * TOMMY GARCIA MD: PERFORM Event Display: History and Physical Authored Date: [id number] History & Physical Chief Complaint Pt states bleeding vaginally x 2 days, states shes gone through 12 pulls ups in a few hours. Kalia GAMEZ stated to come to ER and contact them. Pt tachycardic 112 BPM in triage, otherwise VSS. History of Present Illness 22-year-old??G0 female??is presenting again to our emergency room for her ongoing??complicated menstrual difficulties.?? She had a previous working diagnosis of??von Willebrand??disease??but updated laboratory testing through our hematology??does not confirm that diagnosis.?? Patient utilizes daily norethindrone??10 mg twice daily??and oral TXA??3 times daily??when she gets her bleeding episodes.?? She is updating me today that the??current working plan is to use a daily dose of control pill??in between the bleeding episodes but to switch over to??the other regimen when bleeding starts.?? For onset of bleeding she made that switch on Monday.?? She did also visit our??emergency room onSunday or Monday of this week??but was felt to have??stable laboratory studies regarding her bleeding and anemia??and her vital signs.?? At??shakira's presentation there is significant drop again of her hemoglobin down to 7.6 compared to 9.9??drawn here a few days ago.?? Today she took 1 morning dose of her TXA??and the??first dose of norethindrone 10 mg p.o.?? The bleeding??picked up to be tremendously heavy??and she presented to emergency room.?? There is plan that she will be seeing a coagulation specialist??but is waiting for the appointment confirmation.?? Her primary ORTHOPEDIC SURGEON Dr. Ramos in [facility]??is working on scheduling pelvic MRI??for patient.?? Also her primary ORTHOPEDIC SURGEON has patient considering trying??a levonorgestrel IUD again.?? Per patient she has tried??every??hormonal??contraceptive option??with dissatisfaction. ?Today in??our emergency room today our associate professor of library media was also consulted??and supported patient getting DDAVP??treatment. ??Patient is agreeable to hospital admission??for observation of??her bleeding , transfusion of??packed RBCs and??medical management??of her bleeding. ??Patient??is concerned that she will need??treatment for??her nausea??and abdominal pain??that always accompany the heavy bleeding. ? My previous??admission HPI from March 11, 2022??is as follows: 22-year-old female??with complicated??menstrual difficulty history with some summaries included??below here. ??Patient began??menstrual bleeding 4 days ago and had increasing??heaviness of the flow and began to pass large clots which brought her back to the emergency room.?? Urine test negative in emergency room.?? Patient??is trying to manage this??as an outpatient using oral norethindrone??knowing that she can bump up the dosing to??double or triple as needed??and she also has oral TXA??at home to use as needed.?? Patient relates today that she is established with a paratransit operator named Dr. Ashlie Ramos??in [facility]??which is closer to patient's??current residence.?? She has had specialty care??at [facility]??for her??menstrual difficulties and von Willebrand's.?? She had her endometriosis surgery[facility]at [facility].?? 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 She is about 3 weeks into??the commitment.?? Patient has been??nauseous??since prior to and during the admission but thinks that is resolving now.?? She is having??frequent low pelvic pain and cramping??and IV morphine 4 mg??available every 2 hours has been fairly effective that she has been napping??for the last couple of hours.?? She is of course mostly at bedrest now??and believes the??bleeding has??reduced.?? She reports that she can comfortably??urinate and have bowel movements. [1] Physical Exam Vitals & Measurements T:??36.8?C??(Oral)?? TMIN:??36.8?C??(Oral)?? TMAX:??37.3?C??(Oral)?? HR:??106??(Peripheral)?? RR:??18?? BP:??115/60?? SpO2:??98%?? GENERAL: Slightly pale white female??is??alert and oriented, in no distress. NECK: Supple. No thyromegaly. LUNGS: Clear to auscultation. HEART: Regular rate and rhythm without murmur. ABDOMEN: Soft, nontender, no hepatosplenomegaly. PELVIC: Deferred at present time. Assessment/Plan 22-year-old G0 female??with frequent episodes of??severe menstrual bleeding leading to??need for??hospitalization and transfusion is going to be admitted today for??presentation of another episode.??I have had telephone conversation with hospitalist who will do consult.?? We are in agreement that patient will be admitted to??progressive care unit??for the potential of??active decompensation??secondary to her??unpredictable??escalation of bleeding episodes.?? She has received IV DDAVP,??IV Zofran, IV TXA??and IV Dilaudid??serial dosing. Coordination of Care I have spent 45 minutes??for the evaluation and admission of this patient including review of our previous??hospitalization notes??and evaluation of??patient's current status??in emergency department. Problem List/Past Medical History Ongoing Anemia Anxiety Asthma Depression Endometriosis Methicillin resistant Staphylococcus aureus Vaginal bleeding Historical No qualifying data Medications Inpatient NS 500 mL, 500 mL, IV Home Advair HFA 115/21 inhalation aerosol with [...] Denies Tobacco Use Tobacco Use: Denies. Results Lab Results Chemistry BUN: 9 mg/dL Calcium Level: 8.7 mg/dL Chloride:??108 mmol/L??High Creatinine: 0.8 mg/dL Glucose Level: 86 mg/dL Potassium Level:??3.2 mmol/L??Low Sodium Level: 139 mmol/L Hematology Hct:??24.2 %??Low Hgb:??7.6 gm/dL??Low Platelet: 248 x10(3)/mcL RBC:??2.96 x10(6)/mcL??Low WBC: 7.8 x10(3)/mcL [1]??History & Physical; TOMMY GARCIA MD 03/11/2022 07:13 EDT Electronically Signed By: TOMMY GARCIA MD Date and Time Signed: 04/20/22 19:39 EST Care Team Care Team Personnel Name: No Local PCP No Local PCP, Member Role: Primary Care Physician Name: ALEC MATT MD Position: Physician - ED Member Role: ED Physician Address: Address: [address] [place] [id number] Name: Eloina Wood, RN Position: ED Nurse Management Member Role: ED Nurse Care Team Related Persons Name: BO PAYAN Address: Home [address] [place] [phone] Name: BO PAYAN Address: [address] [phone] Name: BO BOOKER Address: Home
--- OUTSIDE RECORDS SUMMARY | 2022-11-20 17:52 | XMS_ITS | Continuity of Care Document ---
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 any questions you have with your health care provider. Document Released: 07/21/2004 Document Revised: 12/20/2018 Document Reviewed: 12/20/2018 [employer] Patient Education ?? 2020 [employer] 06/01/2020 14:15:50 Abdominal Pain, Adult Abdominal Pain, Adult Abdominal pain can be caused by many things. Often, abdominal pain is not serious and it gets better with no treatment or by being treated at home. However, sometimes abdominal pain is serious. Your health care provider will do a medical history and a physical exam to try to determine the cause of your abdominal pain. Follow these instructions at home: ??? Take mtui-ljy-godofbu and prescription medicines only as told by your health care provider. Do not take a laxative unless told by your health care provider. ??? Drink enough fluid to keep your urine clear or pale yellow. ??? Watch your condition for any changes. ??? Keep all follow-up [...] you to expect. ??? You cannot stop throwing up. ??? Your pain is only in areas of the abdomen, such as the right side or the left lower portion of the abdomen. ??? You have bloody or black stools, [...] with your health care provider. Document Released: 02/08/2006 Document Revised: 11/18/2016 Document Reviewed: 10/12/2016 [employer] Interactive Patient Education ?? 2020 [employer]. Follow Up Care 06/01/2020 13:11:37 With:Follow up with primary care provider Address:Unknown When:1 to 2 days Comments:Please call your primary care provider to arrange for the earliest available follow-up appointment.Please return directly to the emergency department should any of your symptoms change or worsen as discussed.
--- OUTSIDE RECORDS SUMMARY | 2022-11-20 17:52 | XMS_ITS | Continuity of Care Document ---
Author Name Unknown Organization [facility] Address [address] [place] [address] Care Team Providers Care Medical Laboratory Assistant Name Role Phone RICARDO RUTH Primary Care Physician Encounter BVT Date(s): 02/09/22 - 02/09/22 [facility] [address] [place] [address] [place] [address] us Encounter Diagnosis Abnormal uterine bleeding (AUB)(Discharge Diagnosis) - 02/09/22 Discharge Disposition: Home Attending Physician: ERIN POWER MD Allergies, Adverse Reactions, Alerts Substance Reaction Severity Status droperidol Moderate Active Latex Itching Active penicillins Edema Hives Active Haldol Moderate Active Compazine Edema Active Toradol Nausea Active Assessment and Plan Future Appointments Functional Status 02/09/22 COVID-19 Screening None Medications Benadryl 25 mg [...] Daily, # 60 tab(s), 3 Refill(s), Pharmacy: [id number] [place] [address], 2tab(s) Oral Daily,x30 day(s) Start Date: 05/20/20 Stop Date: 09/17/20 Status: Ordered omeprazole Oral, Daily, 0 Refill(s) Start Date: 09/27/20 Status: Ordered ondansetron 4 mg oral tablet, disintegrating 4 mg = 1 tab(s), Oral, q8hr, PRN PRN Nausea/Vomiting, # 20 tab(s), 0 Refill(s), Pharmacy: [facility], 1 tab(s) Oral q8hr,PRN:Nausea/Vomiting, 165, cm, 07/13/21 17:17:00 EST, Height/Length Dosing, 83, kg, 07/13/21 17:17:00 EST, Weight Dosing Start Date: 07/14/21 Status: Ordered ProAir HFA INH, q6hr, 0 Refill(s) Start Date: 09/27/20 Status: Ordered Protonix 40 mg oral delayed release tablet 40 mg = 1 tab(s), Oral, Daily, # 15 tab(s), 0 Refill(s), Pharmacy: [facility] [place] [address], 1tab(s) Oral Daily Start Date: 03/26/20 Status: [...] menstruation, # 30 tab(s), 2 Refill(s), Pharmacy: [facility] #[id number], 2 tab(s) Oral TID,x5 day(s),Instr:st... Start Date: 02/09/22 Stop Date: 02/24/22 Status: Ordered traZODone 100 mg oral tablet 100 mg = 1 tab(s), Oral, Daily, 0 Refill(s) Start Date: 09/27/20 Status: Ordered Zofran ODT 4 mg oral tablet, disintegrating 4 mg = 1 tab(s), Oral, q8hr, PRN PRN Nausea/Vomiting, # 30 tab(s), 0 Refill(s), Pharmacy: [facility], 1 tab(s) Oral q8hr,PRN:Nausea/Vomiting Start [...] Range]: 1 Peripheral Pulse Rate [60-100 bpm] 94 bp m (02/09/22 8:20 AM) Blood Pressure [90-140/60-90 mmHg] 80/60 mmHg *LOW* (02/09/22 8:20 AM) SpO2 [92-100 %] 98 % (02/09/22 8:20 AM) Weight 74.84 kg (02/09/22 8:20 AM) Weight Measured (lbs) 164.994 lb (02/09/22 8:20 AM) Social History Social History Type Response Smoking Status Never (less than 100 in lifetime) entered on: 07/13/21 Sex Patient Care team information Personnel Name: RICARDO RUTH Address: Address: [address] [address]
--- OUTSIDE RECORDS SUMMARY | 2022-11-20 17:52 | XMS_ITS | Continuity of Care Document ---
Author Name Unknown Organization [facility] Address Unknown Care Team Providers Care Agricultural Pilot Name Role Phone No Local PCP, No Local PCP Primary Care Physicia n Unavailable Encounter Date(s): 02/15/22 - 02/15/22 [facility] [address] [place], [place] [address] Encounter Diagnosis Vaginal bleeding(Discharge Diagnosis) - 02/15/22 Discharge Disposition: Home or Self Care Attending [...] BID, # 56 tab(s), 0 Refill(s), Pharmacy: [facility], 166.74, cm, 01/20/2217:15:00 EDT, Height/Length Dosing, 78.92, kg, 01/20/22 17:15:00 EDT, Weight Dosing Start Date: 01/21/22 Stop Date: 02/18/22 Status: Ordered omeprazole 20 mg oral delayed release capsule 20 mg = 1 cap(s), Oral, Daily Start Date: 01/21/22 Status: Ordered ondansetron 4 mg oral tablet 4 mg = 1 tab(s), Oral, q8hr, PRN PRN: nausea, Dispensed to you by ED nurse for home use, # 3 tab(s), 0 Refill(s), Homepack given to Patient (Rx) Start Date: 02/15/22 Stop Date: 02/16/22 Status: Ordered oxyCODONE 5 mg oral tablet 5 mg = 1 tab(s), Oral, q6hr, PRN PRN: pain, Dispensed to you by ED nurse for home use, # 3 tab(s), 0 Refill(s), Homepack given to Patient (Rx) Start Date: 02/15/22 Stop Date: 02/16/22 Status: Ordered sertraline 100 mg oral tablet [...] 4 mg = 1 tab(s), Oral, q8hr, X 3 day(s), # 9 tab(s), 0 Refill(s), Pharmacy: [facility] Pharmacy, 167, cm,02/15/22 16:42:00 EDT, Height/Length Dosing, 77.1, kg, 02/15/22 16:42:00 EDT, Weight Dosing Start Date: 02/15/22 Stop Date: 02/18/22 Status: Ordered Zofran 4 mg oral tablet 4 mg = 1 tab(s), Oral, q8hr, X 3 day(s), # 9 tab(s), 0 Refill(s), Pharmacy: [facility] Pharmacy, 167, cm,02/15/22 16:42:00 EDT, Height/Length Dosing, 77.1, kg, 02/15/22 16:42:00 EDT, Weight Dosing Start Date: 02/15/22 Stop Date: 02/18/22 Status: Ordered Mental Status 02/15/22 Orientation Assessment Oriented x 4 Problem List [...] MRSA. Results Laboratory List Name Date ABO/Rh 02/15/22 Antibody Screen Gel 02/15/22 .Estimated Glomerular Filtration Rate Auto Differential 02/15/22 CBC Auto Diff reflex Manual Diff 02/15/22 Comprehensive Metabolic Panel 02/15/22 HCG Quantitative 02/15/22 Most recent to oldest [Reference Range]: 1 ABSCR-G Interpretation Negative ABSC (02/15/22 6:55 PM) ABO/Rh Interpretation A POS *Unknown* (02/15/22 6:55 PM) AGAP 9 *NA* (02/15/22 5:50 PM) A/G Ratio 1.1 *NA* (02/15/22 5:50 PM) BUN/Creat Ratio 10 *NA* (02/15/22 5:50 PM) RBC [4.00-5.20 x10(6)/mcL] 3.91 x10(6)/m cL *LOW* (02/15/22 5:50 PM) RDW [11.5-14.5 %] 19.2 % *HI* (02/15/22 5:50 PM) Sodium Level [136-145 mmol/L] 141 mmol/L (02/15/22 5:50 PM) Total Protein [6.4-8.2 gm/dL] 7.3 gm/dL (02/15/22 5:50 PM) AST [15-37 IU/L] 24 IU/L (02/15/22 5:50 PM) Bili Total [0.20-1.00 mg/dL] 0.29 mg/dL (02/15/22 5:50 PM) CO2 [21-32 mmol/L] 29 mmol/L (02/15/22 5:50 PM) Albumin Level [3.4-5.0 gm/dL] 3.8 gm/dL (02/15/22 5:50 PM) Alk Phos [48-129 unit/L] 56 unit/L (02/15/22 5:50 PM) ALT [13-61 IU/L] 33 IU/L (02/15/22 5:50 PM) Hct [36.0-46.0 %] 31.1 % *LOW* (02/15/22 5:50 PM) Hgb [12.0-15.0 gm/dL] 9.3 gm/dL *LOW* (02/15/22 5:50 PM) MCH [26.0-34.0 pg] 23.8 pg *LOW* (02/15/22 5:50 PM) MCHC [31.0-37.0 gm/dL] 29.9 gm/dL *LOW* (02/15/22 5:50 PM) MCV [80-100 fL] 80 fL (02/15/22 5:50 PM) MPV [9.2-12.7 fL] 11.4 fL (02/15/22 5:50 PM) Glucose Level [74-106 mg/dL] 81 mg/dL (02/15/22 5:50 PM) Platelet [150-350 x10(3)/mcL] 224 x10(3) /mcL (02/15/22 5:50 PM) Potassium Level [3.5-5.1 mmol/L] 3.6 mmo l/L (02/15/22 5:50 PM) WBC [4.5-11.0 x10(3)/mcL] 5.6 x10(3)/mcL (02/15/22 5:50 PM) BUN [7-18 mg/dL] 9 mg/dL (02/15/22 5:50 PM) Calcium Level [8.5-10.1 mg/dL] 8.9 mg/dL (02/15/22 5:50 PM) Chloride [98-107 mmol/L] 107 mmol/L (02/15/22 5:50 PM) hCG Qnt [1-3 mIU/mL] <1 mIU/mL (02/15/22 5:50 PM) eGFR AA >60 mL/min/1.73 m2 *NA* (02/15/22 5:50 PM) eGFR BRUNO >60 mL/min/1.73 m2 *NA* (02/15/22 5:50 PM) Neutrophil Absolute [1.50-7.80 x10(3)/mc L] 2.98 x10(3)/mcL (02/15/22 5:50 PM) Lymphocyte Absolute [1.10-4.80 x10(3)/mc L] 2.02 x10(3)/mcL (02/15/22 5:50 PM) Monocyte Absolute 0.40 x10(3)/mcL *NA* (02/15/22 5:50 PM) Eosinophil Absolute 0.12 x10(3)/mcL *NA* (02/15/22 5:50 PM) Basophil Absolute 0.06 x10(3)/mcL *NA* (02/15/22 5:50 PM) Imm Gran Absolute 0.01 /mcL *NA* (02/15/22 5:50 PM) NRBC % [0.0-0.2 %] 0.0 % (02/15/22 5:50 PM) Osmol Calculated 279 mOsm/kg *NA* (02/15/22 5:50 PM) Eosinophil Auto [1.0-4.0 %] 2.1 % (02/15/22 5:50 PM) Immature Granulocyte Auto 0 % *NA* (02/15/22 5:50 PM) Lymphocyte Auto [24.0-44.0 %] 36.1 % (02/15/22 5:50 PM) Monocyte Auto [2.0-11.0 %] 7.2 % (02/15/22 5:50 PM) Neutrophil Auto [31.0-76.0 %] 53.3 % (02/15/22 5:50 PM) Basophil Auto [0.0-2.0 %] 1.1 % (02/15/22 5:50 PM) Creatinine [0.6-1.3 mg/dL] 0.9 mg/dL (02/15/22 5:50 PM) Vital Signs Most recent to oldest [Reference Range]: 1 2 3 Temperature Oral [35.8-37.3 DegC] 36.7 DegC (02/15/22 4:42 PM) Peripheral Pulse Rate [60-100 bpm] 71 bpm (02/15/22 8:30 PM) 75 bpm (02/15/22 8:15 PM) 70 bpm (02/15/22 8:00 PM) Respiratory Rate [14-20 br/min] 18 br/min (02/15/22 4:42 PM) Blood Pressure [90-140/60-90 mmHg] 94/59mmHg (02/15/22 8:15 PM) 94/59mmHg (02/15/22 8:00 PM) 104/59mmHg (02/15/22 7:45 PM) Mean Arterial Pressure, Cuff 70 mmHg (02/15/22 8:15 PM) 70 mmHg (02/15/22 8:00 PM) 74 mmHg (02/15/22 7:45 PM) Blood Pressure 119/61mmHg (02/15/22 4:42 PM) Social History Social History Type Response Tobacco Tobacco Use: Denies. Sex Female Hospital Discharge Instructions Patient Education 02/15/2022 20:49:56 Dysfunctional Uterine Bleeding Dysfunctional Uterine Bleeding NO txa for several weeks. Dysfunctional uterine bleeding is abnormal bleeding from the uterus. Dysfunctional uterine bleedingincludes: ??? A menstrual period that comes earlier or later than usual. ??? A menstrual period that is soil engineer or heavier than usual, or has large [...] keep your urine pale yellow. ??? Take lylo-utw-mgjxrks or prescription medicines. ??? Eat foods that are high in fiber, such as beans, whole grains, and fresh fruits and vegetables. ??? Limit foods that are high in fat and processed sugars, such as fried or sweet foods. Medicines ??? Take zdbz-wau-wwfzvjf and prescription medicines only as told by [...] provider. Document Revised: 10/10/2018 Document Reviewed: 10/10/2018 [employer] Patient Education ?? 2021 [employer]. Care Team Care Team Personnel Name: No Local PCP No Local PCP, Med Service: NO LOCAL PCP Member Role: Primary Care Physician Care Team Related Persons Name: BO PAAYN Address: [address] [phone] Name: BO PAYAN Address: [address] [phone] Name: BO BOOKER Address: [place]
--- OUTSIDE RECORDS SUMMARY | 2022-11-20 17:52 | XMS_ITS | Continuity of Care Document ---
Author Name Unknown Organization [facility] Address [address] [place] [address]- Care Team Providers Care Field Kiln Burner Name Role Phone Adeel Busby Primary Care Physician Daksha deckerailliza Encounter BVT Date(s): 11/03/22 - 11/03/[address] [phone] [phone] Discharge Disposition: Home or Self Care Attending Physician: Melissa Dao Admitting Physician: Melissa Dao Allergies, Adverse Reactions, Alerts Substance Reaction Severity Status droperidol Anaphylactic reaction Severe Active Haldol Tremor Moderate Active Phenergan Anaphylactic reaction Severe Active Latex Itching Active penicillins Edema Hives Active NSAIDs Bleeding disorder Severe Active Compazine Edema Active Toradol Nausea Active Reglan Anaphylactic reaction Severe Active Functional Status 11/03/22 COVID-19 Screening None Medications !-Zofran ODT 4 mg oral tablet, disintegrating 4 mg = 1 tab(s), Oral, q8hr, PRN PRN Nausea/Vomiting, # 30 tab(s), 0 Refill(s), Pharmacy: [facility] #[id number], 1 tab(s) Oral q8hr,PRN:Nausea/Vomiting, 164, cm, 01/17/22 19:35:00 EDT, Height/Length Dosing, 77.11, kg, 01/17/22 19:35:00 EDT, Weight Dosing Start Date: 03/16/22 Status: Ordered acetaminophen 0 Refill(s) Start Date: [...] 60 tab(s), 3 Refill(s), [facility], 2tab(s) Oral Daily,x30 day(s) Start Date: 05/20/20 [...] 30 tab(s), 2 Refill(s), [facility]: [facility][id number], 2 tab(s) Oral TID,x5 day(s),Instr:st... Start Date: 03/16/22 Stop Date: 03/31/22 Status: Ordered traZODone 100 mg oral tablet 100 mg = 1 tab(s), Oral, Daily, 0 Refill(s) Start Date: 09/27/20 Status: Ordered Problem List Condition Confirmation Course Effective Dates Status H ealth Status Informant Abdominal pain due to injury Confirmed Active Asthma Confirmed Active Endometriosis Confirmed Active Confirmed 10/20/22 Active Adenomyosis Confirmed Active Procedures Procedure Date [...] on appendix 8menorrhagia 9aspiration of endometrioma Results Radiology Reports * Exam Date Time Procedure Performing Provider Status 11/03/22 4:04 PM US Pelvis Non-OB Complete Yañez, Bill i Edilia; Auth (Verified) Notes: (US Pelvis Non-OB Complete) Reason For Exam: lower abdominal pain/multiple recent CTs US Pelvis Non-OB Complete EXAMINATION: US Pelvis Non-OB Complete CLINICAL HISTORY: lower abdominal pain/multiple recent CTs PROCEDURE: Grayscale and color Doppler imaging of the pelvis was performed. This examination is limited due to decompressed urinary bladder and multiple bowel loops in the pelvis. FINDINGS: The uterus is not enlarged measuring approximately 7 x 5 x 3 cm. The endometrium measures approximately 4 mm. The ovaries are not visualized. There is no evidence of pelvic ascites. IMPRESSION: Limited examination as above. Thank you for letting us participate in the care of this patient. If you are a health care provider and have any questions regarding this report, please contact the number below. For patients who have questions please contact the health spiritual care coordinator that requested your imaging first. Final Dictated: 11/03/2022 4:11 pm SHIVA OROZCO Signed (Electronic Signature): 11/03/2022 4:11 pm Signed by: SHIVA OROZCO Technologist: Adam Yañez Vital Signs Most recent to oldest [Reference Range]: 1 Temperature Temporal Artery [36.3-37.8 D egC] 36.4 DegC (11/03/22 2:06 PM) Peripheral Pulse Rate [60-100 bpm] 86 bp m (11/03/22 2:06 PM) Respiratory Rate [14-20 br/min] 20 br/mi n (11/03/22 2:06 PM) Blood Pressure [90-140/60-90 mmHg] 103/6 5mmHg (11/03/22 2:06 PM) SpO2 [92-100 %] 100 % (11/03/22 2:06 PM) Height/Length Estimated 166.000 cm (11/03/22 2:06 PM) Height/Length Dosing 166.000 cm (11/03/22 2:13 PM) Weight Estimated 75.000 kg (11/03/22 2:06 PM) Weight Dosing 75.000 kg (11/03/22 2:13 PM) Social History Social History Type Response Tobacco Never tobacco user T obacco Use:. Sex US Pelvis * SHIVA OROZCO: VERIFY, VERIFY, PERFORM Event Display: Report Authored Date: EXAMINATION: US Pelvis Non-OB Complete CLINICAL HISTORY: lower abdominal pain/multiple recent CTs PROCEDURE: Grayscale and color Doppler imaging of the pelvis was performed. This examination is limited due to decompressed urinary bladder and multiple bowel loops in the pelvis. FINDINGS: The uterus is not enlarged measuring approximately 7 x 5 x 3 cm. The endometrium measures approximately 4 mm. The ovaries are not visualized. There is no evidence of pelvic ascites. IMPRESSION: Limited examination as above. Thank you for letting us participate in the care of this patient. If you are a health care provider and have any questions regarding this report, please contact the number below. For patients who have questions please contact the health spiritual care coordinator that requested your imaging first. Final Dictated: 11/03/2022 4:11 pm SHIVA OROZCO Signed (Electronic Signature): 11/03/2022 4:11 pm Signed by: SHIVA OROZCO Technologist: Adam Yañez Patient Care team information Care Team Personnel Name: ALANIS DE LA TORRE Position: [facility] Physician OB Tracking Member Role: Nurse Practitioner Address: Address: [address] [place] [address] Name: ERIN POWER MD Position: [facility] Physician OB Tracking Member Role: SENIOR PRODUCTION MANAGER Physician Address: Address: [address] Name: ABELARDO FAULKNER Position: [facility] Physician Acute/Clinic/PNED Member Role: Nurse Practitioner Address: Address: [address] [place] [address] Name: Adeel Busby Position: [facility] No Access Member Role: Primary Care Physician Name: Keron Verma Position: [facility] RN LP PCSC Member Role: Registered Nurse Name: Melissa Dao Position: [facility] ED Physician LP Member Role: Attending Physician Address: Address: [address] [place] [address] Care Team Related Persons Name: BO PAYAN
--- OUTSIDE RECORDS SUMMARY | 2022-11-20 17:52 | XMS_ITS | Continuity of Care Document ---
Author Name Unknown Organization [facility] Address [address] [place] [address]- Care Team Providers Care Project Specialist Name Role Phone Non-Staff, Physician Primary Care Physician Unav ailable Encounter [facility] [id number] Date(s): 03/21/20 - 03/21/[address] [address]- Encounter Diagnosis Constipation(Discharge Diagnosis) - 03/21/20 Post-operative pain(Discharge Diagnosis) - 03/21/20 Discharge Disposition: Home or Self Care Attending Physician: BLANE STARK Admitting Physician: BLANE STARK Allergies, Adverse Reactions, Alerts Substance Reaction Severity Status Latex Itching Active penicillins Edema Hives Active Compazine Edema Active Toradol Nausea Active Assessment and Plan Extracted from: Title:General Medical Problem *ED Author:Carl STARK Date:03/21/20 History of Present Illness 20-year-old female here with complaint of abdominal pelvic pain 4 days post laparoscopic evaluation of painful condition, with findings consistent with endometriosis. The patient states that she has been having difficulty moving her bowels despite the use of MiraLAX and Dulcolax. She has also had some nausea with vomiting. This morning she noticed that the umbilical incision seemed to break open. She does not report any fever, but does report that she has had hot and cold flashes. She is not reporting any unusual vaginal discharge or bleeding.. Review of Systems Constitutional symptoms: Negative except [...] q8hr, PRN: Nausea/Vomiting, 30 tab(s), 0 Refill(s) morphine 15 mg/8 hr oral tablet, extended release: 15 mg = 1 tab(s), Oral, q8hr, for 5 day(s), 15 tab(s), 0 Refill(s) Documented Medications Documented Zofran [...] selected or recorded.. Surgical history: Laparoscopic appendectomy ([id number]) in the month of 11/2019 at 19 Years. Comments: 03/04/2020 23:03 ERIN XIONG MD noted to have endometriosis on appendix D&C - Dilatation and curettage ([id number]) in the month of 06/2018 at 18 Years. 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 Exercise Exercise frequency: Daily. Exercise type: [...] . Physical Examination Vital Signs Vital Signs 03/21/2020 11:58 EST Temperature Temporal 36.9 DegC Peripheral Pulse Rate 86 bpm Respiratory Rate 16 br/min Systolic Blood Pressure 120 mmHg Diastolic Blood Pressure 71 mmHg SpO2 92 % . Measurements 03/21/2020 12:05 EST Weight Dosing 73.900 kg 03/21/2020 12:05 EST Height/Length Dosing 162.000 cm 03/21/2020 11:58 EST Height/Length Estimated 162.000 cm Weight Estimated 73.900 kg . Basic Oxygen Information 03/21/2020 11:58 EST Oxygen Therapy Room air . Additional physical exam information: Alert, well-developed, well-hydrated, elevated BMI. Vital signs reviewed. Skin: [place], warm, dry. COR: Heart rate and rhythm regular, no murmur, click, gallop, or rub. Chest: Clear. Abdomen: Flat, bowel sounds present and hyperactive throughout all 4 quadrants. Diffuse mild tenderness. There is a tiny nonbleeding opening at the inferior border of the umbilicus measuring approximately 2 mm. No mass, organomegaly, or rebound. Extremities: No edema.. Medical Decision Making Notes: IV of normal saline established for 1 L fluid bolus. CBC and chemistries obtained. hCG is negative. She was administered 8 mg of morphine IV and 8 mg of Zofran IV for pain and nausea respectively. The patient exhibits no evidence of an acute abdomen. After being medicated the patient requested to eat crackers. Within 2 hours of initial dosing she is complaining about repeated pain. She will therefore be made n.p.o. and CT of abdomen pelvis will be obtained with double contrast. The patient received an additional IV dose of morphine 5 mg, and later lorazepam 0.5 mg IV for pain and anxiety respectively. CT of abdomen pelvis shows no evidence for acute intra-abdominal pathology. Expected amount of postoperative pneumoperitoneum present. Patient received 1 additional dose of 5 mg of morphine IV at her request prior to discharge because of a long trip home. She is advised to continue with her usual medications at home, and maintain a high-fiber diet. Since she has had difficulty moving her bowels she can try some mag citrate half a bottle each night to produce normal stool. She is advised that the use of opiate medication may hinder her ability to move her bowels. [employer] follow-up advised.. Reexamination/ Reevaluation Vital signs Basic Oxygen Information 03/21/2020 11:58 EST Oxygen Therapy Room air Impression and Plan Diagnosis Post-operative pain (XVX43-LS G89.18, Discharge, Medical) Constipation ([id number] K59.00, Discharge, Medical) Plan Disposition: Discharged: time 03/21/2020 16:57:00. Patient was given the following educational materials: Constipation, Adult, AA Blank Template (Custom), AA Blank Template (Custom), Constipation, Adult. Follow up with: ; Follow-up with gynecology on schedule or as per their recommendation. Call Monday for advice. In 2 days 03/23/2020. Counseled: Patient. Future Appointments Diagnostic Tests Pending * Culture Urine 03/21/20 Functional Status 03/21/20 Recent Travel History No recent travel COVID-19 Screening None Medications ibuprofen 800 mg, 0 Refill(s) Start Date: 03/04/20 Status: Ordered morphine 15 mg/8 hr oral tablet, extended release 15 mg = 1 tab(s), Oral, q8hr, X 5 day(s), # 15 tab(s), 0 Refill(s), 03/22/20, [facility]acy: [id number], 1 tab(s) Oral q8hr,x5 day(s) Start Date: 03/17/20 Stop Date: 03/22/20 Status: Ordered norethindrone 5 mg oral tablet 10 mg = 2 tab(s), Oral, Daily, # 180 tab(s), 0 Refill(s) Start Date: 02/18/20 Status: Ordered Orilissa 150 mg oral tablet 150 mg = 1 tab(s), Oral, Daily, # 30 tab(s), 11 Refill(s), Pharmacy: [id number], 1tab(s) Oral Daily Start Date: 02/19/20 Status: Ordered Phenergan 25 mg rectal suppository 25 mg = 1 supp, Per rectum, q8hr, # 21 supp, 0 Refill(s), Pharmacy: [id number], 1 supp Per rectum q8hr Start Date: 03/04/20 Status: Ordered Zofran ODT 4 mg oral tablet, disintegrating 4 mg = 1 tab(s), Oral, q8hr, PRN PRN Nausea/Vomiting, 0 Refill(s) Start Date: 03/17/20 Status: Ordered Zofran ODT 4 mg oral tablet, disintegrating 4 mg = 1 tab(s), Oral, q8hr, PRN PRN Nausea/Vomiting, # 30 tab(s), 0 Refill(s), Pharmacy: [id number], 1 tab(s) Oral q8hr,PRN:Nausea/Vomiting Start Date: 02/27/20 Status: Ordered Mental Status 03/21/20 Level of Consciousness Alert Problem List Condition Effective Dates Status Health Status Inform ant Asthma(Confirmed) Active Endometriosis(Confirmed) Active Procedures Procedure Date Related Diagnosis Body Site Status Laparoscopic appendectomy 11/2019 Completed D&C - Dilatation and curettage 2 06/2018 Completed Laparoscopy with aspiration 3 01/2018 Completed 1noted to have endometriosis on appendix 2menorrhagia 3aspiration of endometrioma Results Laboratory List Name Date Glucose POC 03/21/20 Fentanyl Level 03/21/20 Urinalysis with Culture, if indicated [facility] [place] 03/21/20 Urine Drug Screen Standard 03/21/20 Amylase Level 03/21/20 Automated Differential Standard 03/21/20 CBC w/Diff Standard 03/21/20 Comprehensive Metabolic Panel Standard ( CMP Standard) 03/21/20 Lipase Level 03/21/20 Test Serum Standard 03/21/20 Urinalysis Microscopic Standard 03/21/20 Most recent to oldest [Reference Range]: 1 Urine Culture? Yes (03/21/20 1:49 PM) U Buprenorphine Scr [Negative] Negative (03/21/20 1:49 PM) NRBC Auto Pct [0.00-0.20 %] 0.00 % (03/21/20 1:26 PM) Creatinine [0.50-0.90 mg/dL] 0.67 mg/dL (03/21/20 1:26 PM) UA Bacteria [None Seen] Small *ABN* (03/21/20 1:49 PM) U Benzodia Scr [Negative] Negative (03/21/20 1:49 PM) UA Bili [Negative] Negative (03/21/20 1:49 PM) UA Blood [Negative] Moderate *ABN* (03/21/20 1:49 PM) U Cocaine Scr [Negative] Negative (03/21/20 1:49 PM) UA Color Yellow (03/21/20 1:49 PM) UA Glucose [Negative] Negative (03/21/20 1:49 PM) UA Ketones [Neg] Neg (03/21/20 1:49 PM) UA Leuk Est [Negative] Small *ABN* (03/21/20 1:49 PM) UA Nitrite [Negative] Negative (03/21/20 1:49 PM) U Opiate Scr [Negative] Positive *ABN* (03/21/20 1:49 PM) U PCP Scr [Negative] Negative (03/21/20 1:49 PM) UA Protein [Negative] Negative (03/21/20 1:49 PM) UA RBC [0-2] 0-2 (03/21/20 1:49 PM) UA Urobilinogen 0.2 EU/dL (03/21/20 1:49 PM) UA WBC 3-5 (03/21/20 1:49 PM) U Amph Scr [Negative] Negative (03/21/20 1:49 PM) U Lorene Scr [Negative] Negative (03/21/20 1:49 PM) AGAP [10.0-18.0 mmol/L] 15.6 mmol/L (03/21/20 1:26 PM) Glucose Lvl [70-100 mg/dL] 92 mg/dL (03/21/20 1:26 PM) Hct [34.1-44.9 %] 33.0 % *LOW* (03/21/20 1:26 PM) Hgb [11.5-15.7 gm/dL] 10.6 gm/dL *LOW* (03/21/20 1: PM) Lipase Lvl [13-60 IntUnit/L] 38 IntUnit/ L (03/21/20 1:26 PM) Lymph Auto [15.0-45.0 %] 30.5 % (03/21/20 1: PM) MCH [25.6-32.2 pg] 25.0 pg *LOW* (03/21/20 1:26 PM) MCHC [32.3-36.5 gm/dL] 32.1 gm/dL *LOW* (03/21/20 1: PM) MCV [79.4-94.8 fL] 77.8 fL *LOW* (03/21/20 1: PM) [place] Auto [4.0-14.0 %] 6.1 % (03/21/20 1: PM) MPV [9.4-12.4 fL] 11.4 fL (03/21/20 1:26 PM) Neutro Auto [50.0-75.0 %] 59.8 % (03/21/20 1: PM) Osmolality [268.0-291.0 mOsm/kg] 267.7 m Osm/kg *LOW* (03/21/20 1:26 PM) Platelet [150-400 x10(3)/uL] 241 x10(3)/ uL (03/21/20 1:26 PM) RBC [3.93-5.22 x10(6)/uL] 4.24 x10(6)/uL (03/21/20 1:26 PM) Sodium Lvl [136-145 mmol/L] 135 mmol/L *LOW* (03/21/20 1: PM) Total Protein [6.6-8.7 gm/dL] 6.7 gm/dL (03/21/20 1: PM) UA pH 8.5 *ABN* (03/21/20 1:49 PM) Albumin Lvl [3.50-5.20 gm/dL] 4.10 gm/dL (03/21/20 1:26 PM) Alk Phos [35-105 IntUnit/L] 46 IntUnit/L (03/21/20 1:26 PM) ALT [0-33 IntUnit/L] 16 IntUnit/L (03/21/20 1:26 PM) Amylase Lvl [28-100 IntUnit/L] 116 IntUn it/L *HI* (03/21/20 1:26 PM) AST [0-32 IntUnit/L] 19 IntUnit/L (03/21/20 1:26 PM) Basophil Auto [0.0-2.0 %] 1.2 % (03/21/20 1:26 PM) Bili Total [0.0-1.3 mg/dL] 0.3 mg/dL (03/21/20 1:26 PM) CO2 [22-29 mmol/L] 21 mmol/L *LOW* (03/21/20 1: PM) Eos Auto [0.0-8.0 %] 2.2 % (03/21/20 1: PM) UA Spec Grav 1.020 (03/21/20 1:49 PM) WBC [4.0-10.0 x10(3)/uL] 5.1 x10(3)/uL (03/21/20 1:26 PM) BUN [6-23 mg/dL] 7 mg/dL (03/21/20 1:26 PM) Calcium Lvl [8.6-10.2 mg/dL] 8.9 mg/dL (03/21/20 1:26 PM) Chloride [98-107 mmol/L] 102 mmol/L (03/21/20 1:26 PM) Potassium Lvl [3.5-5.1 mmol/L] 3.6 mmol/ L (03/21/20 1:26 PM) Micro? [Not Indicated] Indicated *ABN* (03/21/20 1:49 PM) Lymph Absolute [1.20-3.70 x10(3)/uL] 1.5 5 x10(3)/uL (03/21/20 1:26 PM) [place] Absolute [0.20-0.40 x10(3)/uL] 0.31 x10(3)/uL (03/21/20 1:26 PM) Eos Absolute [0.04-0.54 x10(3)/uL] 0.11 x10(3)/uL (03/21/20 1:26 PM) NRBC Absolute [0.00-0.01 x10(3)/uL] 0.00 x10(3)/uL (03/21/20 1:26 PM) UA Clarity Slightly Cloudy *ABN* (03/21/20 1:49 PM) U TCA Scr [Negative] Negative (03/21/20 1:49 PM) Neutro Absolute [1.56-6.13 x10(3)/uL] 3. 04 x10(3)/uL (03/21/20 1:26 PM) RDW-CV [11.7-14.4 %] 13.0 % (03/21/20 1:26 PM) Glucose POC [70-100] 83 (03/21/20 4:45 PM) GFR >60 mL/min/1.73 m2 *NA* (03/21/20 1:26 PM) GFR NonAfrican Cymro >60 mL/min/1.73 m2 *NA* (03/21/20 1:26 PM) U mAMP Scr [Negative] Negative (03/21/20 1:49 PM) U OXY Scr [Negative] Negative (03/21/20 1:49 PM) U PPX Scr [Negative] Negative (03/21/20 1:49 PM) Fentanyl Interp [Negative] Negative (03/21/20 1:49 PM) UA Squam Epi Moderate *ABN* (03/21/20 1:49 PM) U THC Scr [Negative] Negative (03/21/20 1:49 PM) U Methadone Scr [Negative] Negative (03/21/20 1:49 PM) Immature Gran % [0.00-2.30 %] 0.20 % (03/21/20 1:26 PM) Immature Gran Absolute 0.01 x10(3)/uL *NA* (03/21/20 1:26 PM) HCG Qualitative Serum [Negative] Negativ e (03/21/20 1:26 PM) Basophil Absolute [0.00-0.10 x10(3)/uL] 0.06 x10(3)/uL (03/21/20 1:26 PM) Radiology Reports * Exam Date Time Procedure Performing Provider Status 03/21/20 4:[address] Abdomen/Pelvis w/ Contrast George Lott organ; Auth (Verified) Notes: (CT Abdomen/Pelvis w/ Contrast) Reason For Exam: abdominopelvic pain 4 days post laparoscopy for endometriosis CT Abdomen/Pelvis w/ Contrast EXAMINATION: CT Abdomen/Pelvis w/ Contrast CLINICAL HISTORY: abdominopelvic pain 4 days post laparoscopy for endometriosis TECHNIQUE: Helical CT of the abdomen and pelvis was performed following the intravenous administration of 99 ml of Omnipaque 350. Oral contrast was administered. COMPARISON: 02/27/2020 FINDINGS: Lower chest: normal Liver: normal Biliary system: normal Pancreas: normal Spleen: normal Adrenal glands: normal Kidneys: normal Bowel: Stomach is not dilated. No bowel obstruction or bowel wall thickening. Status post appendectomy. Mesentery, omentum, and peritoneum: Tiny amount of pneumoperitoneum at bilateral flanks and within the pelvis. No fluid. Pelvic organs: Normal bladder and uterus. No adnexal mass. Lymph nodes: not enlarged Vasculature: normal Retroperitoneum: no mass or hemorrhage Bones and soft tissues: normal IMPRESSION: Tiny amount of pneumoperitoneum, consistent with recent laparoscopic surgery. Status post appendectomy. No acute intra-abdominal process. Thank you for letting us participate in the care of this patient. For questions regarding this report, please contact the number below. Final Dictated: 03/21/2020 4:21 pm Fermin Coelho Signed (Electronic Signature): 03/21/2020 4:21 pm Signed by: Fermin Coelho Vital Signs Most recent to oldest [Reference Range]: 1 2 3 Temperature Temporal [36.3-37.8 DegC] 36.9 DegC (03/21/20 11:58 AM) Peripheral Pulse Rate [60-100 bpm] 81 bpm (03/21/20 5:01 PM) 81 bpm (03/21/20 2:30 PM) 78 bpm (03/21/20 2:15 PM) Respiratory Rate [14-20 br/min] 16 br/min (03/21/20 11:58 AM) Blood Pressure [90-140/60-90 mmHg] 101/68mmHg (03/21/20 5:01 PM) 110/58mmHg (03/21/20 2:00 PM) 94/68mmHg (03/21/20 1:30 PM) Mean Arterial Pressure, Cuff 79 mmHg (03/21/20 5:01 PM) 75 mmHg (03/21/20 2:00 PM) 77 mmHg (03/21/20 1:30 PM) Mean Arterial Pressure Cuff-Monitor 80 mmHg (03/21/20 5:01 PM) 75 mmHg (03/21/20 2:00 PM) 75 mmHg (03/21/20 1:30 PM) SpO2 [92-100 %] 98 % (03/21/20 5:01 PM) 98 % (03/21/20 2:30 PM) 98 % (03/21/20 2:15 PM) Height/Length Estimated 162.000 cm (03/21/20 11:58 AM) Height/Length Dosing 162.000 cm (03/21/20 12:05 PM) Weight Estimated 73.900 kg (03/21/20 11:58 AM) Weight Dosing 73.900 kg (03/21/20 12:05 PM) Social History Social History Type Response Smoking Status Never (less than 100 in lifetime) entered on: 02/18/20 Sex Hospital Discharge Instructions Patient Education 03/21/2020 17:02:01 AA Blank Template (Custom) A warm blanket or heating pad can be used on the abdomen as desired and effective. Drink plenty of fluids to stay well-hydrated. Consume a high-fiber diet. Use the pain management strategy as directed by your transition coach. Continue to use the MiraLAX, you can add half bottle of magnesium citrate in the evening, and repeat the next evening to achieve bowel movement. Remember that you are bowel movements will be hinderedby the use of opiate pain medication. Follow-up with gynecology as scheduled, or as per their direction calling Monday for advice. 03/21/2020 17:02:01 Constipation, Adult Constipation, Adult Constipation is when a person has fewer bowel movements in a week than normal, has difficulty having a bowel movement, or has stools that are dry, hard, or larger than normal. Constipation may be caused by an underlying condition. It may become worse with age if a person takes certain medicines anddoes not take in enough fluids. Follow these instructions at home: Eating and drinking ??? Eat foods that have a lot of fiber, such as fresh fruits and vegetables, whole grains, and beans. ??? Limit foods that are high in fat, low in fiber, or overly processed, such as yakut fries, hamburgers, cookies, candies, and soda. ??? Drink enough fluid to keep your urine clear or pale yellow. General instructions ??? Exercise regularly or as told by your health care provider. ??? Go to the restroom when you have the urge to go. Do not hold it in. ??? Take [id number] and prescription medicines only as told by your health care provider. These include any fiber supplements. ??? Practice pelvic floor retraining exercises, such as deep breathing while relaxing the lower abdomen and pelvic floor relaxation during bowel movements. ??? Watch your condition for any changes. ??? Keep all follow-up visits as told by your health care provider. This is important. Contact a health care provider if: ??? You have pain that gets worse. ??? You have a fever. ??? You do not have a bowel movement after 4 days. ??? You vomit. ??? You are not hungry. ??? You lose weight. ??? You are bleeding from the anus. ??? You have thin, pencil-like stools. Get help right away if: ??? You have a fever and your symptoms suddenly get worse. ??? You leak stool or have blood in your stool. ??? Your abdomen is bloated. ??? You have severe pain in your abdomen. ??? You feel dizzy or you faint. This information is not intended to replace advice given to you by your health care provider. Make sure you discuss any questions you have with your health care provider. Document Released: 01/27/2005 Document Revised: 04/13/2018 Document Reviewed: 10/19/2016 [employer] Patient Education ?? 2020 [employer] Follow Up Care 03/21/2020 11:41:29 With:Follow-up with gynecology on schedule or as per their recommendation. Call Monday for advice. Address:Unknown When:03/23/2020 16:57:38
--- OUTSIDE RECORDS SUMMARY | 2022-11-20 17:52 | XMS_ITS | Continuity of Care Document ---
Author Name Unknown Organization [facility] Address [address] [place] [address] Care Team Providers Care Veneer Stacker Name Role Phone Non-Staff, Physician Primary Care Physician Unav ailable Encounter BVT [facility] [id number] Date(s): 03/04/20 - 03/04/20 [facility] [address] [facility] [place] [address]- Encounter Diagnosis Pelvic pain(Discharge Diagnosis) - 03/04/20 Endometriosis, ovary(Discharge Diagnosis) - 03/04/20 Discharge Disposition: Home Attending Physician: ERIN POWER MD Allergies, Adverse Reactions, Alerts Substance Reaction Severity Status Latex Itching Active penicillins Edema Hives Active Compazine Edema Active Assessment and Plan Extracted from: 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 She is now not having??pain controlled with Orilissa and presenting to ED for evaluation.?Due to the severity of pain, recommend that she proceed with laparoscopy and excision of endometriosis.?? According to operative notes she has not had excision of pelvic endometriosis.? Risks and benefits of surgery were discussed.?? Plans for GI consultation also discussed. I have discussed with the patient the indications, alternatives, and risks associated with laparoscopy. Planned procedure: laparoscopic excision of endometriosis The risks reviewed include infection, bleeding, possible need for blood transfusion (with associated risks of HIV, hepatitis, transfusion reaction), injury to adjacent organs, and anesthesia as well as the risk for reoperation. The risk of damage to major organs is 05/4999-1/10,000.?We also discussed the anticipated outcome, postoperative care and recovery.?? All of her questions were answered.?? The consent was signed.?? total time of visit 30 minutes. ?? Plan: laparoscopy with excision of endometriosis Antibiotics: na DVT Prevention: flow trons Additional Preop assessment:?? UPT Pelvic pain??R10.2 ??Pain management and management of nausea was also discussed. Orders: morphine, 15 mg = 1 tab(s), Oral, q4hr, PRN PRN for pain, X 3 day(s), # 10 tab(s), 0 Refill(s), 03/07/20, Pharmacy: [facility], 1 tab(s) Oral q4hr,x3 day(s),PRN:for pain promethazine, 25 mg = 1 supp, Per rectum, q8hr, # 21 supp, 0 Refill(s), Pharmacy: [facility], 1 supp Per rectum q8hr Future Appointments Functional Status 03/04/20 Recent Travel History No recent travel COVID-19 Screening None Medications ibuprofen 800 mg, 0 Refill(s) Start Date: 03/04/20 Status: Ordered morphine 15 mg oral tablet 15 mg = 1 tab(s), Oral, q4hr, PRN PRN for pain, X 3 day(s), # 10 tab(s), 0 Refill(s), 03/07/20, Pharmacy: [facility], 1 tab(s) Oral q4hr,x3 day(s),PRN:for pain Start Date: 03/04/20 Stop Date: 03/07/20 Status: Ordered norethindrone 5 mg oral tablet 10 mg = 2 tab(s), Oral, Daily, # 180 tab(s), 0 Refill(s) Start Date: 02/18/20 Status: Ordered Orilissa 150 mg oral tablet 150 mg = 1 tab(s), Oral, Daily, # 30 tab(s), 11 Refill(s), Pharmacy: [facility], 1tab(s) Oral Daily Start Date: 02/19/20 Status: Ordered Phenergan 25 mg rectal suppository 25 mg = 1 supp, Per rectum, q8hr, # 21 supp, 0 Refill(s), Pharmacy: [facility], 1 supp Per rectum q8hr Start Date: 03/04/20 Status: Ordered sertraline Oral, Daily, 0 Refill(s) Start Date: 02/18/20 Status: Ordered Zofran ODT 4 mg oral tablet, disintegrating 4 mg = 1 tab(s), Oral, q8hr, PRN PRN Nausea/Vomiting, # 30 tab(s), 0 Refill(s), Pharmacy: [facility], 1 tab(s) Oral q8hr,PRN:Nausea/Vomiting Start Date: 02/27/20 Status: Ordered Zofran ODT 4 mg oral tablet, disintegrating 4 mg = 1 tab(s), Oral, TID, # 9 tab(s), 0 Refill(s) Start Date: 02/18/20 Stop Date: 02/21/20 Status: Ordered Problem List Condition Effective Dates Status Health Status Inform ant Asthma(Confirmed) Active Endometriosis(Confirmed) Active Procedures Procedure Date Related Diagnosis Body Site Status Laparoscopic appendectomy 1 11/2019 Completed D&C - Dilatation and curettage 2 06/2018 Completed Laparoscopy with aspiration 3 01/2018 Completed 1noted to have endometriosis on appendix 2menorrhagia 3aspiration of endometrioma Vital Signs Most recent to oldest [Reference Range]: 1 Temperature Temporal Artery [36.3-37.8 D egC] 36.2 DegC *LOW* (03/04/20 1:02 PM) Peripheral Pulse Rate [60-100 bpm] 88 bp m (03/04/20 1:02 PM) Blood Pressure [90-140/60-90 mmHg] 122/6 2mmHg (03/04/20 1:02 PM) Social History Social History Type Response Smoking Status Never (less than 100 in lifetime) entered on: 02/18/20 Sex Hospital Discharge Instructions Patient Education 03/04/2020 23:13:28 Laparoscopic Lysis of Abdominal Adhesions, Care After Laparoscopic Lysis of Abdominal Adhesions, Care After This sheet gives you information about how to care for yourself after your procedure. Your health care provider may also give you more specific instructions. If you have problems or questions, contact your health care provider. What can I expect after the procedure? After the procedure, it is common to have some pain around your incisions. Follow these instructions at home: Incision care ??? Follow instructions from your health care provider about how to take care of your incisions. Make sure you: ??? Wash your hands with soap and water before you change your bandage (dressing). If soap and water are not available, use hand taxi dancer. ??? Change your dressing as told by your health care provider. ??? Leave stitches (sutures), skin glue, or adhesive strips in place. These skin closures may need to stay in place for 2 weeks or longer. If adhesive strip edges start to loosen and curl up, you maytrim the loose edges. Do not remove adhesive strips completely unless your health care provider tells you to do that. ??? Check your incision areas every day for signs of infection. Check for: ??? Redness, swelling, or pain. ??? Fluid or blood. ??? Warmth. ??? Pus or a bad smell. ??? Do not take baths, swim, or use a hot tub until your health care provider approves. Ask your health care provider if you may take showers. You may only be allowed to take sponge baths. Activity ??? Do not lift anything that is heavier than 10 lb (4.5 kg), or the limit that you are told, untilyour health care provider says that it is safe. ??? Return to your normal activities as told by your health care provider. Ask your health care provider what activities are safe for you. ??? Do not drive or use heavy machinery while taking prescription pain medicine. General instructions ??? Take zdgl-sky-mstrktn and prescription medicines only as told by your health care provider. ??? After your procedure, eat only a little at a time at first. Start with liquids. As your appetite improves, gradually return to eating solid foods. ??? If you are taking prescription pain medicine, take actions to prevent or treat constipation. Your health care provider may recommend that you: ??? Drink enough fluid to keep your urine pale yellow. ??? Eat foods that are high in fiber, such as fresh fruits and vegetables, whole grains, and beans. ??? Limit foods that are high in fat and processed sugars, such as fried or sweet foods. ??? Take an vvym-gkw-nugtidz or prescription medicine for constipation. ??? Keep all follow-up visits as told by your health care provider. This is important. Contact a health care provider if: ??? You have a fever or chills. ??? You have redness, swelling, or pain at the site of your incisions. ??? You have fluid or blood coming from your incisions. ??? Your incisions feel warm to the touch. ??? You have pus or a bad smell coming from your incisions or the dressing. ??? Your pain gets worse. ??? You have a cough. ??? You have nausea and vomiting that does not go away after 3 hours. Get help right away if you have: ??? Severe pain in your abdomen or your chest. ??? Shortness of breath. ??? Nausea or vomiting that is severe or keeps coming back. Summary ??? After laparoscopic lysis of abdominal adhesions, it is common to have some pain around your incisions. ??? Check your incision areas every day for signs of infection. Watch for redness, worsening pain, warmth, and drainage. ??? Be sure to keep all follow-up visits as told by your health care provider. This information is not intended to replace advice given to you by your health care provider. Make sure you discuss any questions you have with your health care provider. Document Released: 09/15/2015 Document Revised: 06/05/2018 Document Reviewed: 04/18/2018 [employer] Patient Education ?? 2020 [employer]. 03/04/2020 23:13:10 Opioid Pain Medicine Information, Cuqx-ic-Bxbj Opioid Pain Medicine Information Opioid pain medicines are strong medicines that are used to treat serious pain. Only take these medicines while you are working with a doctor. You should only take them for short amounts of time, if your doctor says that you can. When you take these medicines for short amounts of time, they can help you: ??? Do better in physical therapy. ??? Feel better during the first few days after an injury. Work with your doctor to make a plan for treating your pain. Talk about: ??? How much pain you can expect to have. ??? How long you are likely to have pain. What are the risks? Opioid pain medicines can cause problems (side effects). Taking them for more than 3 days raises your chance of problems, such as: ??? Trouble pooping (constipation). ??? Feeling sick to your stomach (nausea). ??? Throwing up (vomiting). ??? Sleepiness. ??? Confusion. ??? Breathing problems. ??? Not being able to stop taking the medicine (addiction). Taking opioid pain medicine for a long time can put you at risk for: ??? Car accidents. ??? Depression. ??? Heart attack. ??? Taking too much of the medicine (overdose). ??? Painful symptoms after you stop the medicine (withdrawal). ??? Suicide and . Follow these instructions at home: Safety and storage ??? While you are taking opioid pain medicine: ??? Do not drive. ??? Do not use machines or power tools. ??? Do not sign important papers (legal documents). ??? Do not drink alcohol. ??? Do not take sleeping pills. ??? Do not take care of children by yourself. ??? Do not do activities with climbing or being in high places, like working on a ladder. ??? Do not go into any water, such a pak, river, ocean, pool, or hot tub. ??? Keep your pain medicine locked up, or in a place where children cannot reach it. ??? Do not share your pain medicine with anyone. Getting rid of leftover pills Do not save any leftover pills. Get rid of leftover pills safely by: ??? Taking them to a take-back program in your area. ??? Bringing them to a pharmacy that has a container for throwing away pills (pill disposal). ??? Safely throwing them in the trash. To do this: 1. Mix the pills with pet poop or food scraps. 2. Put the mixture in a closed container or bag. 3. Throw the container or bag in the trash. General instructions ??? Work with your doctor to find other ways to manage your pain, such as: ??? Physical therapy. ??? Massage. ??? Counseling. ??? Diet and exercise. ??? Meditation. ??? Other pain medicines. ??? Get your pain medicine prescription from only one doctor. ??? If you have been taking opioid pain medicines for more than a few weeks, do not try to stop taking them by yourself. Work with your doctor to stop. ??? Your doctor will help you take less and less (taper) until you are not taking the medicine at all. This can lower your chance of having painful symptoms after you stop taking the medicine. ??? Keep all follow-up visits as told by your doctor. This is important. Contact a doctor if: ??? You have problems because of your medicines. ??? You need help to stop taking your medicines. ??? You have questions about how to use your medicines safely. Get help right away if: ??? You have trouble breathing. ??? You have a very slow heartbeat. ??? You feel confused. ??? You are very sleepy. ??? You pass out (faint). ??? You feel sick to your stomach. ??? You throw up. ??? You have cold skin. ??? You have blue lips or fingers. ??? Your muscles are weak (limp) and your body seems floppy. ??? The black centers of your eyes (pupils) are smaller than normal. ??? You feel like you may hurt yourself or others. If you think that you (or somebody else) may have taken too much of an opioid pain medicine, go to your nearest emergency department or call: ??? Your local emergency services (911 in the [place] ??? The hotline of the National Poison Control Center ( in the [place] ??? A suicide crisis helpline, such as the National Suicide Prevention Lifeline at . This is open 24 hours a day. Summary ??? Opioid pain medicines are strong medicines that can have serious side effects if you take them for too long. ??? If you have pain, work with your doctor to make a plan to treat it. If you can, find other options that help you manage pain. ??? Get help right away if you think that you (or somebody else) may have taken too much of an opioid pain medicine. This information is not intended to replace advice given to you by your health care provider. Make sure you discuss any questions you have with your health care provider. Document Released: 02/20/2018 Document Revised: 01/23/2019 Document Reviewed: 02/20/2018 [employer] Interactive Patient Education ?? 2020 [employer]
--- OUTSIDE RECORDS SUMMARY | 2022-11-20 17:52 | XMS_ITS | Continuity of Care Document ---
Author Name Unknown Organization [facility] Address [address] [place] [address]- Care Team Providers Care Plaster Foreman Name Role Phone RICARDO RUTH Primary Care Physician [phone] Encounter BVT Date(s): 11/12/21 - 11/12/[address] [address]- [phone] Encounter Diagnosis Pelvic pain(Discharge Diagnosis) - 11/12/21 Vaginal bleeding(Discharge Diagnosis) - 11/12/21 Discharge Disposition: Home or Self Care Attending Physician: CARISA CHINCHILLA MD Admitting Physician: CARISA CHINCHILLA MD Allergies, Adverse Reactions, Alerts Substance Reaction Severity Status droperidol Moderate Active Latex Itching Active penicillins Edema Hives Active Haldol Moderate Active Compazine Edema Active Toradol Nausea Active Functional Status 11/12/21 Recent Travel History No recent travel Family Member Travel History No recent t ravel COVID-19 Screening None Medications Benadryl 25 mg oral capsule 25 mg = 1 cap(s), Oral, Daily, 0 Refill(s) Start Date: 09/27/20 Status: Ordered Colace Oral, BID, 0 Refill(s) Start Date: 09/27/20 Status: Ordered Diflucan 150 mg oral tablet 150 mg = 1 tab(s), Oral, Once, # 1 tab(s), 0 Refill(s), Pharmacy: [facility], 1 tab(s) Oral Once Start Date: [...] bedtime), # 70 gm, 0 Refill(s), Pharmacy: [facility], 1 marta VAG Once a day (at bedtime),x5 day(s) Start Date: 08/06/20 Stop Date: 08/11/20 Status: Ordered MetroGel-Vaginal 0.75% vaginal gel with applicator 1 marta, VAG, Once, # 70 gm, 0 Refill(s), Pharmacy: [facility], 1 marta VAG Once Start Date: 07/31/20 Status: Ordered MiraLax 17 gm 1 packet(s), Oral, Daily, 0 Refill(s) Start Date: 09/27/20 Status: Ordered montelukast 4 mg oral granule mg EA, Oral, Daily, 0 Refill(s) Start Date: 09/27/20 Status: Ordered norethindrone 5 mg oral tablet 10 mg = 2 tab(s), Oral, Daily, # 60 tab(s), 3 Refill(s), [facility]acy: [facility], 2tab(s) Oral Daily,x30 day(s) Start Date: 05/20/20 Stop Date: 09/17/20 Status: Ordered omeprazole Oral, Daily, 0 Refill(s) Start Date: 09/27/20 Status: Ordered ondansetron 4 mg oral tablet, disintegrating 4 mg = 1 tab(s), Oral, q8hr, PRN PRN Nausea/Vomiting, # 20 tab(s), 0 Refill(s), Pharmacy: [facility], 1 tab(s) Oral q8hr,PRN:Nausea/Vomiting, 165, cm, 07/13/21 17:17:00 EST, Height/Length Dosing, 83, kg, 07/13/21 17:17:00 EST, Weight Dosing Start Date: 07/14/21 Status: Ordered ProAir HFA INH, q6hr, 0 Refill(s) Start Date: 09/27/20 Status: Ordered Protonix 40 mg oral delayed release tablet 40 mg = 1 tab(s), Oral, Daily, # 15 tab(s), 0 Refill(s), Pharmacy: [facility] [address], 1tab(s) Oral Daily Start Date: 03/26/20 [...] Nausea/Vomiting, # 30 tab(s), 0 Refill(s), Pharmacy: [facility] [address], 1 tab(s) Oral q8hr,PRN:Nausea/Vomiting Start [...] curettage 3 06/2018 Completed Laparoscopy with aspiration 01/2018 Completed 1mild endometriosis otherwise normal anatomy 2noted to have endometriosis on appendix 3menorrhagia 4aspiration of endometrioma Vital Signs Most recent to oldest [Reference Range]: 1 2 Temperature Temporal Artery [36.3-37.8 D egC] 36.6 DegC (11/12/21 1:58 AM) Peripheral Pulse Rate [60-100 bpm] 80 bp m (11/12/21 3:10 AM) 96 bpm (11/12/21 1:58 AM) Respiratory Rate [14-20 br/min] 20 br/mi n (11/12/21 1:58 AM) Blood Pressure [90-140/60-90 mmHg] 105/6 2mmHg (11/12/21 3:10 AM) 127/75mmHg (11/12/21 1:58 AM) SpO2 [92-100 %] 97 % (11/12/21 3:10 AM) 98 % (11/12/21 1:58 AM) Height/Length Estimated 164.000 cm (11/12/21 1:58 AM) Height/Length Dosing 164.000 cm (11/12/21 2:05 AM) Weight Estimated 92.000 kg (11/12/21 1:58 AM) Weight Dosing 92.000 kg (11/12/21 2:05 AM) Social History Social History Type Response Smoking Status Never (less than 100 in lifetime) entered on: 07/13/21 Sex Care Team Personnel Name: RICARDO RUTH Address: [address]
--- OUTSIDE RECORDS SUMMARY | 2022-11-20 17:53 | XMS_ITS | Continuity of Care Document ---
Author Name Unknown Organization [facility] Address [address] [place] [address]- Care Team Providers Care Professional Caster Name Role Phone Adeel Busby Primary Care Physician Daksha navailable Encounter BVT Date(s): 08/04/22 - 08/04/[address] [address]- [place] [phone] Encounter Diagnosis Intermittent lower abdominal pain(Discharge Diagnosis) - 08/04/22 Vaginal bleeding(Discharge Diagnosis) - 08/04/22 Vaginal bleeding(Discharge Diagnosis) - 08/04/22 AP (abdominal pain)(Discharge Diagnosis) - 08/04/22 Anemia(Discharge Diagnosis) - 08/04/22 Anemia(Discharge Diagnosis) - 08/04/22 Discharge Disposition: Against Medical Advice Attending Physician: FARHAD FRIAS Admitting Physician: FARHAD FRIAS Allergies, Adverse Reactions, Alerts Substance Reaction Severity Status droperidol Anaphylactic reaction Severe Active Haldol Tremor Moderate Active Phenergan Anaphylactic reaction Severe Active Reglan Anaphylactic reaction Severe Active Latex Itching Active penicillins Edema Hives Active Compazine Edema Active Toradol Nausea Active Assessment and Plan Extracted from: Title:Addendum *ED Author:Shelly Pelayo MD Vito e:08/04/22 Medical Decision Making I received signout on this patient from Mark Frias. Pt is a 22 yo female known to me from prior ED visit at [facility] who presents to the ED w/ complaints of abdominal pain and N/V. She has been to multiple different ERs in the [place] area since placement of a stoma for a rectovaginal fistula. She was signed out pending a repeat hgb. No recurrent vaginal bleeding during ER stay. The patient is requesting to be discharged and is choosing to do so AGAINST MEDICAL ADVICE. I have advised the patient on the risks of leaving, which may include or permanent disability. The patient is alert and oriented. There is no indication of clinical intoxication. They are able to express to me an understanding of the risks and are able to verbalize them back to me. As such, I find the patient to be competent with respect to this medical decision. The patient understands they are able to return to the Emergency Department at any time if there is worsening of their symptoms or they wish to be reevaluated. I have advised on specific return precautions. Reexamination/ Reevaluation Vital signs Basic Oxygen Information 08/04/2022 19:17 EDT Oxygen Therapy Room air Patient left prior to receiving AMA discharge paperwork Impression and Plan Diagnosis Anemia (PTI05-HL D64.9, Discharge, Medical) Vaginal bleeding (DCH65-YT N93.9, Discharge, Medical) Intermittent lower abdominal pain (TMC68-KE R10.30, Discharge, Medical) Plan Condition: Stable. Disposition: Discharged: AGAINST MEDICAL ADVICE. Extracted from: Title:General Medical Problem *ED Author:FARHAD FRIAS Date:08/04/22 History of Present Illness Additional history: A 22-year-old female with a complicated medical history including possible endometriosis, rectovaginal fistula, bleeding diathesis,, presents to the emergency care center with a chief complaint of abdominal cramps, some bleeding, that began X days ago. The patient has had some mild vaginal bleeding for approximately 4 days. The patient states the next day it went away and today it came back. Today, the bleeding has been a little bit heavier. The patient is also experiencing abdominal cramps. The abdominal cramps seem to be located in her pelvis. And the left pelvic area/left lower quadrant seems to be the affected area however the patient is having some suprapubic tenderness. The patient called her primary care doctor's office after 5:00 and they were closed, recommending that she come here for further evaluation. The patient had Tylenol at 1630 but vomited it up. She denies fever or chills. She has not experienced syncope. She has no other complaint at this time less foul-smelling vaginal discharge which she believes is likely related to her rectovaginal fistula.. Review of Systems Constitutional symptoms: Negative except [...] negative. Health Status Allergies: Allergic Reactions (Selected) Severe Droperidol- Anaphylactic reaction. Phenergan- Anaphylactic reaction. Reglan- Anaphylactic reaction. Moderate Haldol- Tremor. Severity Not Documented Compazine- Edema. Latex- Itching. Penicillins- Hives and edema. Toradol- Nausea.. Past Medical/ Family/ Social History Medical history: Resolved Ovarian torsion ([id number]): Resolved.. Surgical history: Repair of vaginal vault tear ([id number]) on 11/01/2021 at 21 Years. Comments: 02/11/2022 9:09 ERIN XIONG MD recurrent bleeding- excision of posterior vagianl tissue and repair- 4 cm area- bipsy sent to rule out vaginal endometriosis- not report avaialble Transfusion x 1 u PRBC Repair of vaginal vault tear ([id number]) on 10/25/2021 at 21 Years. Comments: 02/11/2022 9:07 ERIN XIONG MD vaginal vault tear with heavy bleeding following vaginal u/s. OR x 2 Hysteroscopy to evaluate uterine cavity- normal Transfusion x 2 u PRBC Laparoscopic ablation of pelvic endometriosis ([id number]) in the month of 03/2021 at 21 Years. Comments: 02/11/2022 8:54 ERIN XIONG MD recurrent pain, Laparoscopic excision of pelvic endometriosis ([id number]) on 03/05/2021 at 21 Years. Comments: 02/21/2022 11:12 [facility] Pelvic side wall biopsy LEFT: Mesothelial-lined fibrous tissue with focal calcification and foreign body giant cell reaction to polarizable material. No endomestrisosis identified. Laparoscopic ablation of pelvic endometriosis ([id number]) in the month of 08/2020 at 20 Years. Comments: 02/11/2022 8:53 ERIN XIONG MD Excision of endometriosis Cystoscopy ([id number]) on 08/26/2020 at 20 Years. Laparoscopic excision of pelvic endometriosis ([id number]) on 03/17/2020 at 20 Years. Comments: 04/16/2020 13:50 ERIN VERMA MD mild endometriosis otherwise normal anatomy Laparoscopic appendectomy ([id number]) in the month of 11/2019 at 19 Years. Comments: 03/04/2020 23:03 ERIN XIONG MD noted to have endometriosis on appendix D&C - Dilatation and curettage ([id number]) in the month of 06/2018 at 18 Years. Comments: 02/20/2020 10:14 ERIN XIONG MD menorrhagia Laparoscopy with aspiration ([id number]) in the month of 01/2018 at 18 Years. Comments: 02/20/2020 10:14 ERIN XIONG MD aspiration of endometrioma Appendectomy ([id number]).. Family history: Diabetes mellitus type 2 Grandfather [...] . Physical Examination Vital Signs Vital Signs 08/04/2022 19:17 EDT Temperature Temporal Artery 37.0 DegC Peripheral Pulse Rate 79 bpm Respiratory Rate 16 br/min Systolic Blood Pressure 109 mmHg Diastolic Blood Pressure 79 mmHg SpO2 99 % . Measurements 08/04/2022 19:29 EDT Weight Dosing 72.570 kg 08/04/2022 19:29 EDT Height/Length Dosing 166.000 cm 08/04/2022 19:17 EDT Height/Length Estimated 166.000 cm Weight Estimated 72.570 kg . Basic Oxygen Information 08/04/2022 19:17 EDT Oxygen Therapy Room air . General: Alert, no acute distress. Skin: Warm, dry, pink, intact. Head: Normocephalic, atraumatic. Neck: Supple, trachea midline. Eye: Extraocular movements are intact, normal conjunctiva. Ears, nose, mouth and throat: Oral mucosa moist. Cardiovascular: Regular rate and rhythm, No murmur, Normal peripheral perfusion, No edema. Respiratory: Lungs are clear to auscultation, respirations are non-labored, breath sounds are equal, Symmetrical chest wall expansion. Gastrointestinal: Soft, Soft abdomen, normal bowel sounds. Patient has tenderness that is lower, left lower pelvic area, suprapubic area but not right lower quadrant. . Musculoskeletal: Normal ROM, normal strength, no tenderness, no swelling, no deformity. Neurological: Alert and oriented to person, place, time, and situation, No focal neurological deficit observed, normal sensory observed, normal motor observed, normal speech observed, normal coordination observed. Psychiatric: Cooperative, appropriate mood & affect, normal judgment, non-suicidal. Medical Decision Making Rationale: Very well-appearing alert and oriented 22-year-old female presenting to the emergency department in no acute distress. The patient frequents emergency departments and has been noted to be around many different hospitals. The patient states that her CHILD CARE ATTENDANT could not figure out why she was bleeding, according to the patient so she went to [place] to have them treat her. The patient then states that she was told by her primary care doctor to follow-up with a doctor at [facility] instead of the one at [place], her surgery team. The patient states that she has a follow-up appointment next week at [facility] but that she contacted them today for bleeding. The patient has an OB plan and this reflects a great amount of information and history for the patient. Patient's complaint today is sharp shooting abdominal pain in the setting of possible endometriosis and some vaginal bleeding that has been present for a few days, stopped yesterday and returns today. The patient presents after hours and ultrasound is not available necessitating us to use CAT scan for any investigation of her abdominal pain. I feel strongly that this is not helpful as the patient is receiving ionizing radiation repeatedly each time she presents to emergency department for her abdominal pain. Patient to receive Zofran as well as Benadryl as she feels that this helps the Zofran worked better. Plan for labs and reevaluation.. Results review: Lab results : Lab View 08/04/2022 20:20 EDT WBC 4.3 x10(3)/uL RBC 3.74 x10(6)/uL LOW Hgb 9.0 gm/dL LOW Hct 28.6 % LOW MCV 76.5 fL LOW MCH 24.1 pg LOW MCHC 31.5 gm/dL LOW RDW-CV 13.3 % Platelet 203 x10(3)/uL MPV 11.3 fL Neutro Auto 53.5 % Lymph Auto 36.0 % [place] Auto 6.3 % Eos Auto 2.8 % Basophil Auto 1.2 % NRBC Auto Pct 0.00 % Neutro Absolute 2.30 x10(3)/uL Lymph Absolute 1.55 x10(3)/uL [place] Absolute 0.27 x10(3)/uL Eos Absolute 0.12 x10(3)/uL NRBC Absolute 0.00 x10(3)/uL Basophil Absolute 0.05 x10(3)/uL Immature Gran % 0.20 % Immature Gran Absolute 0.01 x10(3)/uL NA Sodium Lvl 138 mmol/L Potassium Lvl 3.8 mmol/L Chloride 104 mmol/L CO2 26 mmol/L AGAP 12.2 mmol/L BUN 10 mg/dL Creatinine 0.60 mg/dL Glucose Lvl 92 mg/dL Calcium Lvl 8.8 mg/dL Osmolality 274.4 mOsm/kg eGFR CKD-EPI 129 mL/min/1.73 m2 ABO/Rh. Interp A POS . Impression and Plan Diagnosis Anemia (PFQ81-YP D64.9, Discharge, Medical) Intermittent lower abdominal pain (COV14-IF R10.30, Discharge, Medical) Vaginal bleeding (QOP44-CI N93.9, Discharge, Medical) Plan Disposition: Patient care transitioned to: Time: 08/04/2022 21:06:00, SKIP FUNG Functional Status 08/04/22 History of Fall in Last 3 Months Zhou Y es COVID-19 Screening None Medications !-Zofran ODT 4 mg oral tablet, disintegrating 4 mg = 1 tab(s), Oral, q8hr, PRN PRN Nausea/Vomiting, # 30 tab(s), 0 Refill(s), Pharmacy: [facility][id number], 1 tab(s) Oral q8hr,PRN:Nausea/Vomiting, 164, cm, 01/17/22 [...] 60 tab(s), 3 Refill(s), [facility], 2tab(s) Oral Daily,x30 day(s) [...] 30 tab(s), 2 Refill(s), [facility]: [id number], 2 tab(s) Oral TID,x5 day(s),Instr:st... Start Date: 03/16/22 Stop Date: 03/31/22 Status: Ordered traZODone 100 mg oral tablet 100 mg = 1 tab(s), Oral, Daily, 0 Refill(s) Start Date: 09/27/20 Status: Ordered Mental Status 08/04/22 Level of Consciousness Alert Problem List Condition [...] endometrioma Results Laboratory List Name Date ABO/Rh. 08/04/22 Antibody Screen Tube 2 08/04/22 Automated Differential Standard 08/04/22 Basic Metabolic Panel Standard (BMP Thad dard) 08/04/22 CBC w/Diff Standard 08/04/22 Most recent to oldest [Reference Range]: 1 ABO/Rh. Interp A POS *Unknown* (08/04/22 8:20 PM) eGFR CKD-EPI [>=60 mL/min/1.73 m2] 129 m L/min/1.73 m2 (08/04/22 8:20 PM) NRBC Auto Pct [0.00-0.20 %] 0.00 % (08/04/22 8:20 PM) ABSC Tube 2 Interp Negative (08/04/22 8:20 PM) Creatinine [0.50-0.90 mg/dL] 0.60 mg/dL (08/04/22 8:20 PM) AGAP [10.0-18.0 mmol/L] 12.2 mmol/L (08/04/22 8:20 PM) Glucose Lvl [70-100 mg/dL] 92 mg/dL (08/04/22 8:20 PM) Hct [34.1-44.9 %] 28.6 % *LOW* (08/04/22 8:20 PM) Hgb [11.5-15.7 gm/dL] 9.0 gm/dL *LOW* (08/04/22 8:20 PM) Lymph Auto [15.0-45.0 %] 36.0 % (08/04/22 8:20 PM) MCH [25.6-32.2 pg] 24.1 pg *LOW* (08/04/22 8:20 PM) MCHC [32.3-36.5 gm/dL] 31.5 gm/dL *LOW* (08/04/22 8:20 PM) MCV [79.4-94.8 fL] 76.5 fL *LOW* (08/04/22 8:20 PM) [place] Auto [4.0-14.0 %] 6.3 % (08/04/22 8:20 PM) MPV [9.4-12.4 fL] 11.3 fL (08/04/22 8:20 PM) Neutro Auto [50.0-75.0 %] 53.5 % (08/04/22 8:20 PM) Osmolality [268.0-291.0 mOsm/kg] 274.4 m Osm/kg (08/04/22 8:20 PM) Platelet [150-400 x10(3)/uL] 203 x10(3)/ uL (08/04/22 8:20 PM) RBC [3.93-5.22 x10(6)/uL] 3.74 x10(6)/uL *LOW* (08/04/22 8:20 PM) Sodium Lvl [136-145 mmol/L] 138 mmol/L (08/04/22 8:20 PM) Basophil Auto [0.0-2.0 %] 1.2 % (08/04/22 8:20 PM) CO2 [22-29 mmol/L] 26 mmol/L (08/04/22 8:20 PM) Eos Auto [0.0-8.0 %] 2.8 % (08/04/22 8:20 PM) WBC [4.0-10.0 x10(3)/uL] 4.3 x10(3)/uL (08/04/22 8:20 PM) BUN [6-23 mg/dL] 10 mg/dL (08/04/22 8:20 PM) Calcium Lvl [8.6-10.2 mg/dL] 8.8 mg/dL (08/04/22 8:20 PM) Chloride [98-107 mmol/L] 104 mmol/L (08/04/22 8:20 PM) Potassium Lvl [3.5-5.1 mmol/L] 3.8 mmol/ L (08/04/22 8:20 PM) Lymph Absolute [1.20-3.70 x10(3)/uL] 1.5 5 x10(3)/uL (08/04/22 8:20 PM) [place] Absolute [0.20-0.40 x10(3)/uL] 0.27 x10(3)/uL (08/04/22 8:20 PM) Eos Absolute [0.04-0.54 x10(3)/uL] 0.12 x10(3)/uL (08/04/22 8:20 PM) NRBC Absolute [0.00-0.01 x10(3)/uL] 0.00 x10(3)/uL (08/04/22 8:20 PM) Neutro Absolute [1.56-6.13 x10(3)/uL] 2. 30 x10(3)/uL (08/04/22 8:20 PM) RDW-CV [11.7-14.4 %] 13.3 % (08/04/22 8:20 PM) Immature Gran % [0.00-2.30 %] 0.20 % (08/04/22 8:20 PM) Immature Gran Absolute 0.01 x10(3)/uL *NA* (08/04/22 8:20 PM) Basophil Absolute [0.00-0.10 x10(3)/uL] 0.05 x10(3)/uL (08/04/22 8:20 PM) Vital Signs Most recent to oldest [Reference Range]: 1 2 Temperature Temporal Artery [36.3-37.8 D egC] 37.0 DegC (08/04/22 7:17 PM) Peripheral Pulse Rate [60-100 bpm] 85 bp m (08/04/22 8:33 PM) 79 bpm (08/04/22 7:17 PM) Heart Rate Monitored [60-100 bpm] 91 bpm (08/04/22 8:33 PM) Respiratory Rate [14-20 br/min] 16 br/mi n (08/04/22 8:33 PM) 16 br/min (08/04/22 7:17 PM) Blood Pressure [90-140/60-90 mmHg] 109/7 9mmHg (08/04/22 7:17 PM) SpO2 [92-100 %] 100 % (08/04/22 8:33 PM) 99 % (08/04/22 7:17 PM) Height/Length Estimated 166.000 cm (08/04/22 7:17 PM) Height/Length Dosing 166.000 cm (08/04/22 7:29 PM) Weight Estimated 72.570 kg (08/04/22 7:17 PM) Weight Dosing 72.570 kg (08/04/22 7:29 PM) Social History Social History Type Response Tobacco Never tobacco user T obacco Use:. Sex Physician Emergency department Note * Shelly Pelayo MD: PERFORM, SIGN, VERIFY Event Display: ED Note - Physician Authored Date: Patient: EDUARDO PAYAN Age: 22 years Sex: Female : 2000 Associated Diagnoses: Anemia; Vaginal bleeding; Intermittent lower abdominal pain Author: Shelly Pelayo MD Medical Decision Making I received signout on this patient from Mark Frias. Pt is a 22 yo female known to me from prior ED visit at [facility] who presents to the ED w/ complaints of abdominal pain and N/V. She has been to multiple different ERs in the [place] area since placement of a stoma for a rectovaginal fistula. She was signed out pending a repeat hgb. No recurrent vaginal bleeding during ER sta y. The patient is requesting to be discharged and is choosing to do so AGAINST MEDICAL ADVICE. I have advised the patient on the risks of leaving, which may include or permanent disability. The patient is alert and oriented. There is no indication of clinical intoxication. They are able to express to me an understanding of the risks and are able to verbalize them back to me. As such, I find the patient to be competent with respect to this medical decision. The patient understands they are able to return to the Emergency Department at any time if there isworsening of their symptoms or they wish to be reevaluated. I have advised on specific return precautions. Reexamination/ Reevaluation Vital signs Basic Oxygen Information 08/04/2022 19:17 EDT Oxygen Therapy Room air Patient left prior to receiving AMA discharge paperwork Impression and Plan Diagnosis Anemia (MDT20-PW D64.9, Discharge, Medical) Vaginal bleeding (HAQ53-CW N93.9, Discharge, Medical) Intermittent lower abdominal pain (HNP70-HX R10.30, Discharge, Medical) Plan Condition: Stable. Disposition: Discharged: AGAINST MEDICAL ADVICE. [Electronically Signed on: 08/04/2022 23:10 EDT] Shelly Pelayo MD, MD [Verified on: 08/04/2022 23:10 EDT] Shelly Pelayo MD, MD * FARHAD FRIAS: MODIFY, SIGN, VERIFY, MODIFY, PERFORM Event Display: ED Note - Physician Authored Date: Patient: EDUARDO PAYAN Age: 22 years Sex: Female : 2000 Associated Diagnoses: Anemia; Intermittent lower abdominal pain; Vaginal bleeding Author: FARHAD FRIAS Basic Information Additional information: Chief Complaint from Nursing Triage Note : Chief Complaint 08/04/2022 19:17 EDT Chief Complaint Cramps for a few days, today having sharp pains and vomiting [id number] similar to when she had post-surgical complications. Foul smell from tampon. Tylenol 16:30, vomited it up. Denies fever or chills. . History of Present Illness Additional history: A 22-year-old female with a complicated medical history including possible endometriosis, rectovaginal fistula, bleeding diathesis,, presents to the emergency care center with a chief complaint of abdominal cramps, some bleeding, that began X days ago. The patient has had somemild vaginal bleeding for approximately 4 days. The patient states the next day it went away and today it came back. Today, the bleeding has been a little bit heavier. The patient is also experiencing abdominal cramps. The abdominal cramps seem to be located in her pelvis. And the left pelvic area/left lower quadrant seems to be the affected area however the patient is having some suprapubic tenderness. The patient called her primary care doctor's office after 5:00 and they were closed, recommending that she come here for further evaluation. The patient had Tylenol at 1630 but vomited it up. She denies fever or chills. She has not experienced syncope. She has no other complaint at this timeless foul- smelling vaginal discharge which she believes is likely related to her rectovaginal fistula.. Review of Systems Constitutional symptoms: Negative except [...] negative. Health Status Allergies: Allergic Reactions (Selected) Severe Droperidol- Anaphylactic reaction. Phenergan- Anaphylactic reaction. Reglan- Anaphylactic reaction. Moderate Haldol- Tremor. Severity Not Documented Compazine- Edema. Latex- Itching. Penicillins- Hives and edema. Toradol- Nausea.. Past Medical/ Family/ Social History Medical history: Resolved Ovarian torsion ([id number]): Resolved.. Surgical history: Repair of vaginal vault tear ([id number]) on 11/01/2021 at 21 Years. Comments: 02/11/2022 9:09 EDT - ERIN POWER MD recurrent bleeding- excision of posterior vagianl tissue and repair- 4 cm area- bipsy sent to rule out vaginal endometriosis- not report avaialble Transfusion x 1 u PRBC Repair of vaginal vault tear ([id number]) on 10/25/2021 at 21 Years. Comments: 02/11/2022 9:07 ERIN XIONG MD vaginal vault tear with heavy bleeding following vaginal u/s. OR x 2 Hysteroscopy to evaluate uterine cavity- normal Transfusion x 2 u PRBC Laparoscopic ablation of pelvic endometriosis ([id number]) in the month of 03/2021 at 21 Years. Comments: 02/11/2022 8:54 ERIN XIONG MD recurrent pain, Laparoscopic excision of pelvic endometriosis ([id number]) on 03/05/2021 at 21 Years. Comments: 02/21/2022 11:12 [facility] Pelvic side wall biopsy LEFT: Mesothelial-lined fibrous tissue with focal calcification and foreignbody giant cell reaction to polarizable material. No endomestrisosis identified. Laparoscopic ablation of pelvic endometriosis ([id number]) in the month of 08/2020 at 20 Years. Comments: 02/11/2022 8:53 ERIN XIONG MD Excision of endometriosis Cystoscopy ([id number]) on 08/26/2020 at 20 Years. Laparoscopic excision of pelvic endometriosis ([id number]) on 03/17/2020 at 20 Years. Comments: 04/16/2020 13:50 ERIN VERMA MD mild endometriosis otherwise normal anatomy Laparoscopic appendectomy ([id number]) in the month of 11/2019 at 19 Years. Comments: 03/04/2020 23:03 ERIN XIONG MD noted to have endometriosis on appendix D&C - Dilatation and curettage ([id number]) in the month of 06/2018 at 18 Years. Comments: 02/20/2020 10:14 ERIN XIONG MD menorrhagia Laparoscopy with aspiration ([id number]) in the month of 01/2018 at 18 Years. Comments: 02/20/2020 10:14 ERIN XIONG MD aspiration of endometrioma Appendectomy ([id number]).. Family history: Diabetes mellitus type 2 Grandfather [...] . Physical Examination Vital Signs Vital Signs 08/04/2022 19:17 EDT Temperature Temporal Artery 37.0 DegC Peripheral Pulse Rate 79 bpm Respiratory Rate 16 br/min Systolic Blood Pressure 109 mmHg Diastolic Blood Pressure 79 mmHg SpO2 99 % . Measurements 08/04/2022 19:29 EDT Weight Dosing 72.570 kg 08/04/2022 19:29 EDT Height/Length Dosing 166.000 cm 08/04/2022 19:17 EDT Height/Length Estimated 166.000 cm Weight Estimated 72.570 kg . Basic Oxygen Information 08/04/2022 19:17 EDT Oxygen Therapy Room air . General: Alert, no acute distress. Skin: Warm, dry, pink, intact. Head: Normocephalic, atraumatic. Neck: Supple, trachea midline. Eye: Extraocular movements are intact, normal conjunctiva. Ears, nose, mouth and throat: Oral mucosa moist. Cardiovascular: Regular rate and rhythm, No murmur, Normal peripheral perfusion, No edema. Respiratory: Lungs are clear to auscultation, respirations are non-labored, breath sounds are equal, Symmetrical chest wall expansion. Gastrointestinal: Soft, Soft abdomen, normal bowel sounds. Patient has tenderness that is lower, left lower pelvic area, suprapubic area but not right lower quadrant. . Musculoskeletal: Normal ROM, normal strength, no tenderness, no swelling, no deformity. Neurological: Alert and oriented to person, place, time, and situation, No focal neurological deficit observed, normal sensory observed, normal motor observed, normal speech observed, normal coordination observed. Psychiatric: Cooperative, appropriate mood & affect, normal judgment, non-suicidal. Medical Decision Making Rationale: Very well-appearing alert and oriented 22-year-old female presenting to the emergency department in no acute distress. The patient frequents emergency departments and has been noted to be around many different hospitals. The patient states that her CHILD CARE ATTENDANT could not figure out why she was bleeding, according to the patient so she went to [place] to have them treat her. The patient then states that she was told byher primary care doctor to follow-up with a doctor at [facility] instead ofthe one at [place], her surgery team. The patient states that she has a follow-up appointment nextweek at [facility] but that she contacted them today for bleeding. The patient has an OB plan and this reflects a great amount of information and history for the patient. Patient's complaint today is sharp shooting abdominal pain in the setting of possible endometriosisand some vaginal bleeding that has been present for a few days, stopped yesterday and returns today. The patient presents after hours and ultrasound is not available necessitating us to use CAT scan for any investigation of her abdominal pain. I feel strongly that this is not helpful as the patientis receiving ionizing radiation repeatedly each time she presents to emergency department for her abdominal pain. Patient to receive Zofran as well as Benadryl as she feels that this helps the Zofran worked better. Plan for labs and reevaluation.. Results review: Lab results : Lab View 08/04/2022 20:20 EDT WBC 4.3 x10(3)/uL RBC 3.74 x10(6)/uL LOW Hgb 9.0 gm/dL LOW Hct 28.6 % LOW MCV 76.5 fL LOW MCH 24.1 pg LOW MCHC 31.5 gm/dL LOW RDW-CV 13.3 % Platelet 203 x10(3)/uL MPV 11.3 fL Neutro Auto 53.5 % Lymph Auto 36.0 % [place] Auto 6.3 % Eos Auto 2.8 % Basophil Auto 1.2 % NRBC Auto Pct 0.00 % Neutro Absolute 2.30 x10(3)/uL Lymph Absolute 1.55 x10(3)/uL [place] Absolute 0.27 x10(3)/uL Eos Absolute 0.12 x10(3)/uL NRBC Absolute 0.00 x10(3)/uL Basophil Absolute 0.05 x10(3)/uL Immature Gran % 0.20 % Immature Gran Absolute 0.01 x10(3)/uL NA Sodium Lvl 138 mmol/L Potassium Lvl 3.8 mmol/L Chloride 104 mmol/L CO2 26 mmol/L AGAP 12.2 mmol/L BUN 10 mg/dL Creatinine 0.60 mg/dL Glucose Lvl 92 mg/dL Calcium Lvl 8.8 mg/dL Osmolality 274.4 mOsm/kg eGFR CKD-EPI 129 mL/min/1.73 m2 ABO/Rh. Interp A POS . Impression and Plan Diagnosis Anemia (MUN99-CT D64.9, Discharge, Medical) Intermittent lower abdominal pain (XAN75-GI R10.30, Discharge, Medical) Vaginal bleeding (ZVO47-BG N93.9, Discharge, Medical) Plan Disposition: Patient care transitioned to: Time: 08/04/2022 21:06:00, SKIP FUNG [Electronically Signed on: 08/04/2022 21:07 EDT] FARHAD FRIAS [Verified on: 08/04/2022 21:07 EDT] FARHAD FRIAS Patient Care team information Care Team Personnel Name: ALANIS DE LA TORRE Position: [facility] Physician OB Tracking Member Role: Nurse Practitioner Address: Address: [address] [place] [address] Name: REIN POWER MD Position: [facility] Physician OB Tracking Member Role: CHILD CARE ATTENDANT Physician Address: Address: [facility] [address]ST FLO[address] Name: ABELARDO FAULKNER Position: [facility] Physician Acute/Clinic/PNED Member Role: Nurse Practitioner Address: Address: [address] Name: Adeel Busby Position: [facility] No Access Member Role: Primary Care Physician Name: Benja Leone RN Position: [facility] RN [facility] Member Role: Registered Nurse Name: FARHAD FRIAS Position: [facility] ED Physician LP Member Role: Attending Physician Address: Address: [address] [place] [address] Care Team Related Persons Name: BO PAYAN
--- OUTSIDE RECORDS SUMMARY | 2022-11-20 17:53 | XMS_ITS | Continuity of Care Document ---
Author Name Unknown Organization [facility] Address [address] [place] [address]- Care Team Providers Care Data Entry Associate Name Role Phone RICARDO RUTH Primary Care Physician [phone] Encounter [facility] [id number] Date(s): 03/16/22 - 03/16/[address] [place], [place] [address] Encounter Diagnosis Excessive and frequent menstruation with irregular cycle(Final) - Menorrhagia with irregular cycle(Discharge Diagnosis) - 03/16/22 Discharge Disposition: Home Attending Physician: ABELARDO FAULKNER Admitting Physician: ABELARDO FAULKNER Allergies, Adverse Reactions, Alerts Substance Reaction Severity Status droperidol Moderate Active Latex Itching Active penicillins Edema Hives Active Haldol Moderate Active Compazine Edema Active Toradol Nausea Active Assessment and Plan Extracted from: Title:Vaginal Bleeding Author:ABELARDO FAULKNER Date:03/16/22 Review of Systems Constitutional: Chills, Sweats, Weakness, No fever. Respiratory: Negative. Cardiovascular: Negative. Gastrointestinal: Nausea, No diarrhea, No constipation, No hematemesis. Gynecologic: Dysmenorrhea, Pelvic pain, chronic . Integumentary: Negative. Neurologic: Alert and oriented X4, Headache, Mild dizziness, No numbness, No tingling. Physical Examination VS/Measurements Vital Signs 03/16/2022 12:19 EDT Peripheral Pulse Rate 67 bpm Respiratory Rate 18 br/min Systolic Blood Pressure 104 mmHg Diastolic Blood Pressure 54 mmHg LOW General: Alert and oriented, Appears uncomfortable. HENT: Oral mucosa is moist, No pharyngeal erythema. Neck: Supple, No lymphadenopathy. Respiratory: Lungs are clear to auscultation. Cardiovascular: Normal rate, Regular rhythm, Normal peripheral perfusion, No edema, ii? sysltolic murmur. Gastrointestinal: Soft, Normal bowel sounds. Musculoskeletal Normal gait. Neurologic: Alert, Oriented, No focal deficits. Cognition and Speech: Speech clear and coherent, Functional cognition intact. 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 1. HEME/ONC: No need for transfusion today. TXA and OCP per MD Ramos Bleeding diathesis panel drawn today. Attempt to obtain - vWD panel reportedly drawn at [facility] 11/03 Will work to arrange coagulation consult here or potentially with [facility]. [facility] available for prn transfusion Future Appointments Diagnostic Tests Pending * Generic Orderable (Frozen) PORTALES 03/16/22 Medications !-Zofran ODT 4 mg oral tablet, disintegrating 4 mg = 1 tab(s), Oral, q8hr, PRN PRN Nausea/Vomiting, # 30 tab(s), 0 Refill(s), Pharmacy: [facility] #[id number], 1 tab(s) Oral q8hr,PRN:Nausea/Vomiting, 164, cm, 01/17/22 [...] Daily, # 28 tab(s), 5 Refill(s), Pharmacy: [id number], 1 tab(s) Oral Daily, 164, cm, 01/17/22 [...] Daily, # 60 tab(s), 3 Refill(s), Pharmacy: [facility], 2tab(s) Oral Daily,x30 day(s) Start Date: 05/20/20 Stop Date: 09/17/20 Status: Ordered omeprazole Oral, Daily, 0 Refill(s) Start Date: 09/27/20 Status: Ordered ondansetron 4 mg oral tablet, disintegrating 4 mg = 1 tab(s), Oral, q8hr, PRN PRN Nausea/Vomiting, # 20 tab(s), 0 Refill(s), Pharmacy: [facility], 1 tab(s) Oral q8hr,PRN:Nausea/Vomiting, 165, cm, 07/13/21 17:17:00 EST, Height/Length Dosing, 83, kg, 07/13/21 17:17:00 EST, Weight Dosing Start Date: 07/14/21 Status: Ordered ProAir HFA INH, q6hr, 0 Refill(s) Start Date: 09/27/20 Status: Ordered Protonix 40 mg oral delayed release tablet 40 mg = 1 tab(s), Oral, Daily, # 15 tab(s), 0 Refill(s), [facility], 1tab(s) Oral Daily Start Date: 03/26/20 [...] pain, # 10 tab(s), 0 Refill(s), Pharmacy: [facility] #[id number], 1 tab(s) Oral q6hr,PRN:for pain, 164, cm, [...] menstruation, # 30 tab(s), 2 Refill(s), Pharmacy: [facility] #[id number], 2 tab(s) Oral TID,x5 day(s),Instr:st... Start Date: [...] of endometrioma Results Laboratory List Name Date Generic Orderable (Frozen) PORTALES 03/16/22 Automated Differential Standard 03/16/22 CBC w/Diff Standard 03/16/22 Most recent to oldest [Reference Range]: 1 NRBC Auto Pct [0.00-0.20 %] 0.00 % (03/16/22 12:01 PM) IPF % [1.00-7.00 %] 3.60 % (03/16/22 12:01 PM) Hct [34.1-44.9 %] 26.3 % *LOW* (03/16/22 12:01 PM) Hgb [11.5-15.7 gm/dL] 8.3 gm/dL *LOW* (03/16/22 12:01 PM) Lymph Auto [15.0-45.0 %] 26.1 % (03/16/22 12:01 PM) MCH [25.6-32.2 pg] 24.9 pg *LOW* (03/16/22 12:01 PM) MCHC [32.3-36.5 gm/dL] 31.6 gm/dL *LOW* (03/16/22 12:01 PM) MCV [79.4-94.8 fL] 78.7 fL *LOW* (03/16/22 12:01 PM) Rutherford Auto [4.0-14.0 %] 6.0 % (03/16/22 12:01 PM) MPV [9.4-12.4 fL] ---- fL *NA* (03/16/22 12:01 PM) Neutro Auto [50.0-75.0 %] 63.8 % (03/16/22 12:01 PM) Platelet [150-400 x10(3)/uL] 169 x10(3)/ uL (03/16/22 12:01 PM) RBC [3.93-5.22 x10(6)/uL] 3.34 x10(6)/uL *LOW* (03/16/22 12:01 PM) Basophil Auto [0.0-2.0 %] 1.1 % (03/16/22 12:01 PM) Eos Auto [0.0-8.0 %] 2.8 % (03/16/22 12:01 PM) WBC [4.0-10.0 x10(3)/uL] 4.7 x10(3)/uL (03/16/22 12:01 PM) Lymph Absolute [1.20-3.70 x10(3)/uL] 1.2 2 x10(3)/uL (03/16/22 12:01 PM) Rutherford Absolute [0.20-0.40 x10(3)/uL] 0.28 x10(3)/uL (03/16/22 12:01 PM) Eos Absolute [0.04-0.54 x10(3)/uL] 0.13 x10(3)/uL (03/16/22 12:01 PM) NRBC Absolute [0.00-0.01 x10(3)/uL] 0.00 x10(3)/uL (03/16/22 12:01 PM) Neutro Absolute [1.56-6.13 x10(3)/uL] 2. 98 x10(3)/uL (03/16/22 12:01 PM) RDW-CV [11.7-14.4 %] 18.9 % *HI* (03/16/22 12:01 PM) Generic Result (Frozen) HARRIS disregard *NA* (03/16/22 2:00 PM) Immature Gran % [0.00-2.30 %] 0.20 % (03/16/22 12:01 PM) Immature Gran Absolute 0.01 x10(3)/uL *NA* (03/16/22 12:01 PM) Basophil Absolute [0.00-0.10 x10(3)/uL] 0.05 x10(3)/uL (03/16/22 12:01 PM) Vital Signs Most recent to oldest [Reference Range]: 1 Peripheral Pulse Rate [60-100 bpm] 67 bp m (03/16/22 12:19 PM) Respiratory Rate [14-20 br/min] 18 br/mi n (03/16/22 12:19 PM) Blood Pressure [90-140/60-90 mmHg] 104/5 4mmHg (03/16/22 12:19 PM) SpO2 [92-100 %] 100 % (03/16/22 12:19 PM) Social History Social History Type Response Smoking Status Never (less than 100 in lifetime) entered on: 07/13/21 Sex Oncology Note * ABELARDO FAULKNER: PERFORM ABELARDO FAULKNER: PERFORM, SIGN ABELARDO FAULKNER: SIGN, VERIFY ABELARDO FAULKNER: VERIFY MANDO HUBBARD: REVIEW Event Display: Oncology Note Authored Date: Patient: MICHELLE PAYAN Age: 22 years Sex: Female : 2000 Associated Diagnoses: None Author: ABELARDO FAULKNER Chief Complaint 22yo female with persistent vaginal bleeding concerns for bleeding diathesis here for considerationof blood transfusion Interval History 1. Vaginal bleeding a. 2018 - per patient -[facility] diagnosed vWD in context of heavy vaginal bleeding. No labs / documents available b. 11/03 worsening vaginal bleeding, admission to [facility] for repair of vaginal tear caused by vaginal US c. Multiple admissions [facility] for vaginal bleeding. Multiple transfusions. d. [facility] documentation vW factor activity wnl, vW factor antigen slightly elevated. Heme curbside noconcern for vWD or need for follow up Labs unavailable e. Multiple ED visits in [place], [facility] for vaginal bleeding f. 03/10/22 Syncopal episode, vaginal bleeding, [place], [place] hospitalization - 2u PRBC, IV TXA Michelle comes to [facility] for repeat cbc and possible transfusion. Reports continued pelvic discomfort and vaginal bleeding. Last dose of oral TXA yesterday. Bleeding less intense. Weakness persists. Patients offers vague history of multiple ED visits, transfusions. No formal Heme consult. Review of Systems Constitutional: Chills, Sweats, Weakness, No fever. Respiratory: Negative. Cardiovascular: Negative. Gastrointestinal: Nausea, No diarrhea, No constipation, No hematemesis. Gynecologic: Dysmenorrhea, Pelvic pain, chronic . Integumentary: Negative. Neurologic: Alert and oriented X4, Headache, Mild dizziness, No numbness, No tingling. 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 Physical Examination VS/Measurements Vital Signs 03/16/2022 12:19 EDT Peripheral Pulse Rate 67 bpm Respiratory Rate 18 br/min Systolic Blood Pressure 104 mmHg Diastolic Blood Pressure 54 mmHg LOW General: Alert and oriented, Appears uncomfortable. HENT: Oral mucosa is moist, No pharyngeal erythema. Neck: Supple, No lymphadenopathy. Respiratory: Lungs are clear to auscultation. Cardiovascular: Normal rate, Regular rhythm, Normal peripheral perfusion, No edema, ii? sysltolicmurmur. Gastrointestinal: Soft, Normal bowel sounds. Musculoskeletal Normal gait. Neurologic: Alert, Oriented, No focal deficits. Cognition and Speech: Speech clear and coherent, Functional cognition intact. Review / Management Results review: Lab results 03/16/2022 14:00 EDT Generic Result (Frozen) PORTALES disregard 03/16/2022 12:01 EDT WBC 4.7 x10(3)/uL RBC 3.34 x10(6)/uL LOW Hgb 8.3 gm/dL LOW Hct 26.3 % LOW MCV 78.7 fL LOW MCH 24.9 pg LOW MCHC 31.6 gm/dL LOW RDW-CV 18.9 % HI Platelet 169 x10(3)/uL MPV ---- fL IPF % 3.60 % Neutro Auto 63.8 % Lymph Auto 26.1 % Rutherford Auto 6.0 % Eos Auto 2.8 % Basophil Auto 1.1 % NRBC Auto Pct 0.00 % Neutro Absolute 2.98 x10(3)/uL Lymph Absolute 1.22 x10(3)/uL Rutherford Absolute 0.28 x10(3)/uL Eos Absolute 0.13 x10(3)/uL NRBC Absolute 0.00 x10(3)/uL Basophil Absolute 0.05 x10(3)/uL Immature Gran % 0.20 % Immature Gran Absolute 0.01 x10(3)/uL NA . 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 1. HEME/ONC: No need for transfusion today. TXA and OCP per MD Ramos Bleeding diathesis panel drawn today. Attempt to obtain - vWD panel reportedly drawn at [facility] 11/03 Will work to arrange coagulation consult here or potentially with [facility]. [facility] available for prn transfusion [Electronically Signed on: 03/16/2022 19:07 EDT] ABELARDO FAULKNER [Verified on: 03/16/2022 19:07 EDT] ABELARDO FAULKNER Patient Care team information Personnel Name: RICARDO RUTH Address: Address: [address]
--- OUTSIDE RECORDS SUMMARY | 2022-11-20 17:53 | XMS_ITS | Continuity of Care Document ---
Author Name Unknown Organization [facility] Address [address] [place] [address] Care Team Providers Care Rn Corrections Name Role Phone Non-Staff, Physician Primary Care Physician Unav ailable Encounter BVT Date(s): 04/16/20 - 04/16/20 [facility] [address] [place] [address] [place] [address]- Encounter Diagnosis Pelvic pain(Discharge Diagnosis) - 04/16/20 Discharge Disposition: Home Attending Physician: ERIN POWER MD Allergies, Adverse Reactions, Alerts Substance Reaction Severity Status Latex Itching Active penicillins Edema Hives Active Compazine Edema Active Toradol Nausea Active Assessment and Plan Extracted from: Title:GEOSPATIAL INTELLIGENCE ANALYST Visit Note Author:ERIN POWER MD Da te:04/16/20 Pelvic pain??R10.2 ??20 yo with nausea, vomiting and upper abdominal pain. S/p recent laparoscopy with excision of mild endometriosis.?? Currently treated with Orilissa and Norethindrone. Patient feels that the Orilissa helps the pain and is reluctant to stop the mediation.?? The risk of depression was reviewed.?? Patient denies suicidal ideation.?? She feels stable and is reluctant to stop medication.?? Total office visit of 35 mintues ?? Plan: continue Orilissa daily ?Norethindrone 10 mg daily- stop when pain has improved ? F/U with GI to complete evaluation Orders: Chlam/GC/TV, Endocervical, Routine collect, 04/16/20 13:31:00 EST, Stop date 04/16/20 13:31:00 EST, Nurse collect, Encounter for screening examination for sexually transmitted disease Functional Status 04/16/20 Recent Travel History No recent travel COVID-19 Screening None Medications busPIRone 10 mg [...] Daily, # 30 tab(s), 11 Refill(s), Pharmacy: [id number], 1tab(s) Oral Daily Start Date: 02/19/20 Status: Ordered Phenergan 25 mg rectal suppository 25 mg = 1 supp, Per rectum, q8hr, # 21 supp, 0 Refill(s), Pharmacy: [facility], 1 supp Per rectum q8hr Start Date: 03/04/20 Status: Ordered Protonix 40 mg oral delayed release tablet 40 mg = 1 tab(s), Oral, Daily, # 15 tab(s), 0 Refill(s), Pharmacy: [facility], 1tab(s) Oral Daily Start Date: 03/26/20 Status: Ordered Zofran ODT 4 mg oral tablet, disintegrating 4 mg = 1 tab(s), Oral, q8hr, PRN PRN Nausea/Vomiting, # 30 tab(s), 0 Refill(s), Pharmacy: [facility] #[id number], 1 tab(s) Oral q8hr,PRN:Nausea/Vomiting [...] Range]: 1 Peripheral Pulse Rate [60-100 bpm] 84 bp m (04/16/20 1:03 PM) Blood Pressure [90-140/60-90 mmHg] 110/6 0mmHg (04/16/20 1:03 PM) Weight 76.66 kg (04/16/20 1:03 PM) Weight Measured (lbs) 168.652 lb (04/16/20 1:03 PM) Social History Social History Type Response Smoking Status Never (less than 100 in lifetime) entered on: 02/18/20 Sex
--- OUTSIDE RECORDS SUMMARY | 2022-11-20 17:53 | XMS_ITS | Continuity of Care Document ---
Author Name Unknown Organization [facility] Address [address] [place] [address] Care Team Providers Care Facilities Custodian Name Role Phone Non-Staff, Physician Primary Care Physician Unav ailable Encounter BVT Date(s): 07/31/20 - 07/31/20 [facility] [address] [place] [address] [place], [place] [address] Encounter Diagnosis Pelvic pain(Discharge Diagnosis) - 07/31/20 Vaginal discharge(Discharge Diagnosis) - 07/31/20 Discharge Disposition: Home Attending Physician: ERIN POWER MD Allergies, Adverse Reactions, Alerts Substance Reaction Severity Status Latex Itching Active penicillins Edema Hives Active Compazine Edema Active Toradol Nausea Active Assessment and Plan Extracted from: Title:[facility] [employer] telehealth Author:ERIN POWER MD Da te:07/31/20 Pelvic pain??R10.2 ??Reviewed her hx pelvic pain and recent treatment of endometriosis Patient to f/u at [facility] as needed ?? Vaginal discharge??N89.8 Based upon symptoms- dx of BV with possible vulvar candidiasis Plan: 1.?? Metrogel x 5 nights 2.?? Diflucan 150 mg po x??1 3. Vaseline for for vulvar symptoms Functional Status 07/31/20 COVID-19 Screening None Medications Diflucan 150 mg oral tablet 150 mg = 1 tab(s), Oral, Once, # 1 tab(s), 0 Refill(s), [facility]acy: [facility], 1 tab(s) Oral Once Start Date: 07/31/20 Status: Ordered ibuprofen 800 mg, 0 Refill(s) Start Date: 03/04/20 Status: Ordered MetroGel-Vaginal 0.75% vaginal gel with applicator 1 marta, VAG, Once, # 70 gm, 0 Refill(s), Pharmacy: [facility], 1 marta VAG Once Start Date: 07/31/20 Status: Ordered norethindrone 5 mg oral tablet 10 mg = 2 tab(s), Oral, Daily, # 60 tab(s), 3 Refill(s), Pharmacy: [facility] [place] [address] [facility], 2tab(s) Oral Daily,x30 day(s) Start Date: 05/20/20 Stop Date: 09/17/20 Status: Ordered Protonix 40 mg oral delayed release tablet 40 mg = 1 tab(s), Oral, Daily, # 15 tab(s), 0 Refill(s), Pharmacy: [facility] [place] [address] [facility], 1tab(s) Oral Daily Start Date: 03/26/20 Status: Ordered Zofran ODT 4 mg oral tablet, disintegrating 4 mg = 1 tab(s), Oral, q8hr, PRN PRN Nausea/Vomiting, # 30 tab(s), 0 Refill(s), Pharmacy: [facility] [place] [address] [address], 1 tab(s) Oral q8hr,PRN:Nausea/Vomiting Start [...] Most recent to oldest [Reference Range]: 1 Weight 72.57 kg (07/31/20 11:23 AM) Weight Measured (lbs) 159.654 lb (07/31/20 11:23 AM) Social History Social History Type Response Smoking Status Never (less than 100 in lifetime) entered on: 07/31/20 Sex
--- OUTSIDE RECORDS SUMMARY | 2022-11-20 17:53 | XMS_ITS | Continuity of Care Document ---
Author Name Unknown Organization [facility] Address [address] [place] [address]- Care Team Providers Care Orthotic Practitioner Name Role Phone Non-Staff, Physician Primary Care Physician Unav ailable Encounter [facility] [id number] Date(s): 03/18/20 - 03/18/[address] [address]- Encounter Diagnosis Anemia(Discharge Diagnosis) - 03/18/20 Postoperative abdominal pain(Discharge Diagnosis) - 03/18/20 Postoperative nausea and vomiting(Discharge Diagnosis) - 03/18/20 Discharge Disposition: Home or Self Care Attending Physician: FARHAD FRIAS Admitting Physician: FARHAD FRIAS Allergies, Adverse Reactions, Alerts Substance Reaction Severity Status Latex Itching Active penicillins Edema Hives Active Compazine Edema Active Toradol Nausea Active Assessment and Plan Extracted from: Title:General Medical Problem *ED Author:FARHAD FRIAS Date:03/18/20 History of Present Illness Additional history: A 20-year-old female with a history of endometriosis status post laparoscopic surgery yesterday, presents to the emergency care center with a chief complaint of postsurgical issues, that began today around noon. The patient felt reasonably well yesterday afternoon. This morning, the patient was feeling reasonably well. The patient's symptoms progressed and she developed worsening abdominal pain associated with nausea. She decided to take a Zofran followed by her pain medication. The patient vomited up the Zofran. She took a Phenergan suppository and then attempted to take her pain medication but was unable to keep any medications down. The patient has been unable to keep any fluids down. She measured her temperature and had a low-grade temperature of 99.9 ??F. She developed shaking chills. She states that she had an infection after an appendectomy this November and was in the hospital for 6 days. The patient is concerned she is developing an infection again. She denies any history of autoimmune disease, diabetes or other immunosuppressive medications. The patient has not experienced any chest pain, shortness of breath, hemoptysis, syncope. She endorses lightheadedness when she moves or stands.. Review of Systems Constitutional symptoms: Negative except [...] selected or recorded.. Surgical history: Laparoscopic appendectomy ([id number]) in the month of 11/2019 at 19 Years. Comments: 03/04/2020 23:03 ERIN XIONG MD noted to have endometriosis on appendix D&C - Dilatation and curettage ([id number]) in the month of 06/2018 at 18 Years. Comments: 02/20/2020 10:14 ERIN XIONG MD menorrhagia Laparoscopy with aspiration ([id number]) in the month of 01/2018 at 18 [...] times per week Employment/School Unemployed, Work/School description: [employer]. Exercise Exercise frequency: Daily. Exercise type: Walking. [...] . Physical Examination Vital Signs Vital Signs 03/18/2020 19:42 EST Temperature Oral 37.1 DegC Peripheral Pulse Rate 102 bpm HI Respiratory Rate 22 br/min HI Systolic Blood Pressure 119 mmHg Diastolic Blood Pressure 74 mmHg SpO2 98 % 03/17/2020 13:00 EST Peripheral Pulse Rate 96 bpm Respiratory Rate 16 br/min Systolic Blood Pressure 116 mmHg Diastolic Blood Pressure 70 mmHg SpO2 99 % 03/17/2020 12:00 EST Peripheral Pulse Rate 106 bpm HI Respiratory Rate 16 br/min Systolic Blood Pressure 122 mmHg Diastolic Blood Pressure 80 mmHg SpO2 99 % 03/17/2020 11:30 EST Peripheral Pulse Rate 92 bpm Respiratory Rate 16 br/min Systolic Blood Pressure 112 mmHg Diastolic Blood Pressure 71 mmHg SpO2 99 % 03/17/2020 11:04 EST Peripheral Pulse Rate 102 bpm HI Respiratory Rate 16 br/min Systolic Blood Pressure 107 mmHg Diastolic Blood Pressure 54 mmHg LOW SpO2 97 % 03/17/2020 10:34 EST Temperature Oral 37.1 DegC Peripheral Pulse Rate 87 bpm Respiratory Rate 16 br/min Systolic Blood Pressure 118 mmHg Diastolic Blood Pressure 49 mmHg LOW SpO2 99 % 03/17/2020 10:20 EST Temperature Oral 36.9 DegC Peripheral Pulse Rate 91 bpm Heart Rate Monitored 84 bpm Respiratory Rate 16 br/min Systolic Blood Pressure 113 mmHg Diastolic Blood Pressure 58 mmHg LOW SpO2 99 % 03/17/2020 10:05 EST Temperature Oral 36.9 DegC Peripheral Pulse Rate 106 bpm HI Heart Rate Monitored 108 bpm HI Respiratory Rate 16 br/min Systolic Blood Pressure 103 mmHg Diastolic Blood Pressure 65 mmHg SpO2 99 % 03/17/2020 9:50 EST Temperature Oral 36.9 DegC Peripheral Pulse Rate 120 bpm HI Heart Rate Monitored 115 bpm HI Respiratory Rate 16 br/min Systolic Blood Pressure 115 mmHg Diastolic Blood Pressure 71 mmHg SpO2 100 % 03/17/2020 9:35 EST Temperature Oral 36.9 DegC Peripheral Pulse Rate 80 bpm Heart Rate Monitored 81 bpm Respiratory Rate 16 br/min Systolic Blood Pressure 127 mmHg Diastolic Blood Pressure 81 mmHg SpO2 100 % 03/17/2020 6:37 EST Temperature Temporal 37.1 DegC Heart Rate Monitored 88 bpm Respiratory Rate 16 br/min Systolic Blood Pressure 107 mmHg Diastolic Blood Pressure 71 mmHg SpO2 99 % . Measurements 03/18/2020 19:47 EST Height/Length Dosing 162.000 cm Weight Dosing 73.900 kg 03/18/2020 19:42 EST Height/Length Estimated 162.000 cm Weight Estimated 73.900 kg 03/17/2020 6:27 EST Weight 73.94 kg Weight Measured (lbs) 162.668 lb Weight Estimated 73.94 kg Weight Dosing 73.94 kg . Basic Oxygen Information 03/18/2020 19:42 EST Oxygen Therapy Room air 03/17/2020 13:00 EST Oxygen Therapy Room air Oxygen Flow Rate 0 L/min 03/17/2020 12:30 EST Oxygen Therapy Room air Oxygen Flow Rate 0 L/min 03/17/2020 12:00 EST Oxygen Therapy Room air Oxygen Flow Rate 0 L/min 03/17/2020 11:30 EST Oxygen Therapy Room air Oxygen Flow Rate 0 L/min 03/17/2020 11:04 EST Oxygen Therapy Room air Oxygen Flow Rate 0 L/min 03/17/2020 10:34 EST Oxygen Therapy Room air Oxygen Flow Rate 0 L/min 03/17/2020 10:20 EST Oxygen Therapy Room air Oxygen Flow Rate 0 L/min 03/17/2020 10:05 EST Oxygen Therapy Room air Oxygen Flow Rate 0 L/min 03/17/2020 9:50 EST Oxygen Therapy Room air Oxygen Flow Rate 0 L/min L/min 03/17/2020 9:45 EST Oxygen Flow Rate 0 L/min L/min 03/17/2020 9:40 EST Oxygen Flow Rate 0 L/min L/min 03/17/2020 9:35 EST Oxygen Therapy Simple mask Oxygen Flow Rate 0 L/min L/min 03/17/2020 9:30 EST Oxygen Flow Rate 15 L/min L/min 03/17/2020 9:25 EST Oxygen Flow Rate 15 L/min L/min 03/17/2020 9:20 EST Oxygen Flow Rate 2 L/min L/min 03/17/2020 9:15 EST Oxygen Flow Rate 2 L/min L/min 03/17/2020 9:10 EST Oxygen Flow Rate 2 L/min L/min 03/17/2020 9:05 EST Oxygen Flow Rate 2 L/min L/min 03/17/2020 9:00 EST Oxygen Flow Rate 2 L/min L/min 03/17/2020 8:55 EST Oxygen Flow Rate 2 L/min L/min 03/17/2020 8:50 EST Oxygen Flow Rate 2 L/min L/min 03/17/2020 8:45 EST Oxygen Flow Rate 2 L/min L/min 03/17/2020 8:40 EST Oxygen Flow Rate 2 L/min L/min 03/17/2020 8:35 EST Oxygen Flow Rate 2 L/min L/min 03/17/2020 8:30 EST Oxygen Flow Rate 2 L/min L/min 03/17/2020 8:25 EST Oxygen Flow Rate 2 L/min L/min 03/17/2020 8:20 EST Oxygen Flow Rate 2 L/min L/min 03/17/2020 8:15 EST Oxygen Flow Rate 2 L/min L/min 03/17/2020 8:10 EST Oxygen Flow Rate 2 L/min L/min 03/17/2020 8:05 EST Oxygen Flow Rate 2 L/min L/min 03/17/2020 8:00 EST Oxygen Flow Rate 15 L/min L/min 03/17/2020 7:55 EST Oxygen Flow Rate 15 L/min L/min 03/17/2020 7:50 EST Oxygen Flow Rate 0 L/min L/min 03/17/2020 7:45 EST Oxygen Flow Rate 0 L/min L/min . General: Alert, no acute distress. Skin: Warm, dry, pink, intact. Head: Normocephalic, atraumatic. Neck: Supple. Eye: Pupils are equal, round and reactive to light, extraocular movements are intact, normal conjunctiva, vision grossly normal. Ears, nose, mouth and throat: Tympanic membranes clear, oral mucosa moist, no pharyngeal erythema or exudate. Cardiovascular: Regular rate and rhythm, No murmur, Normal peripheral perfusion, No edema. Respiratory: Lungs are clear to auscultation, respirations are non-labored, breath sounds are equal, Symmetrical chest wall expansion. Musculoskeletal: Normal ROM, normal strength, no tenderness, no swelling, no deformity. Chest wall Gastrointestinal: Tender abdomen consistent with previous surgery, postop day 1. No evidence for infection such as redness or swelling. The patient's abdomen is soft but exquisitely tender. Normal bowel sounds, no masses.. Genitourinary Neurological: Alert and oriented to person, place, time, and situation, No focal neurological deficit observed, normal sensory observed, normal motor observed, normal speech observed, normal coordination observed. Lymphatics: No lymphadenopathy. Psychiatric: Cooperative, appropriate mood & affect, normal judgment, non-suicidal. Medical Decision Making Rationale: Shaky appearing 20-year-old female who presents to the emergency care center postop day 1 after laparoscopic surgery to treat endometriosis yesterday. The patient is feeling shaky, lightheaded when she moves or stands. She is experiencing nausea and vomiting as well as a low-grade temperature. She has been unable to keep fluids down or pain medications. She is concerned that she is developing infection as she did earlier in November when she had laparoscopic appendectomy. No vaginal bleeding, urinary bleeding, black or bloody stools. No syncope. No chest pain or shortness of breath.. Results review: Lab results : Lab View 03/18/2020 21:16 EST UA Color Yellow UA Clarity Slightly Cloudy UA Spec Grav 1.020 UA Bili Negative UA pH 7.5 UA Urobilinogen 0.2 EU/dL UA Blood Negative UA Glucose Negative UA Ketones Neg UA Protein Negative UA Nitrite Negative UA Leuk Est Trace Urine Culture? Yes Micro? Indicated UA WBC 0-2 UA RBC 0-2 UA Bacteria None Seen UA Squam Epi Few 03/18/2020 20:14 EST WBC 4.8 x10(3)/uL RBC 3.95 x10(6)/uL Hgb 9.7 gm/dL LOW Hct 31.3 % LOW MCV 79.2 fL LOW MCH 24.6 pg LOW MCHC 31.0 gm/dL LOW RDW-CV 13.1 % Platelet 214 x10(3)/uL MPV 11.6 fL Neutro Auto 43.2 % LOW Lymph Auto 46.9 % HI [place] Auto 6.8 % Eos Auto 2.3 % Basophil Auto 0.6 % Immature Gran % 0.20 % NRBC Auto Pct 0.00 % Neutro Absolute 2.08 x10(3)/uL Lymph Absolute 2.26 x10(3)/uL [place] Absolute 0.33 x10(3)/uL Eos Absolute 0.11 x10(3)/uL Basophil Absolute 0.03 x10(3)/uL Immature Gran Absolute 0.01 x10(3)/uL NA NRBC Absolute 0.00 x10(3)/uL Sodium Lvl 137 mmol/L Potassium Lvl 3.8 mmol/L Chloride 102 mmol/L CO2 26 mmol/L AGAP 12.8 mmol/L BUN 4 mg/dL LOW Creatinine 0.63 mg/dL GFR >60 mL/min/1.73 m2 NA GFR NonAfrican Trinidadian >60 mL/min/1.73 m2 NA Glucose Lvl 90 mg/dL Calcium Lvl 8.7 mg/dL Osmolality 270.2 mOsm/kg Lactate 1.0 mmol/L , Interpretation Abnormal results Hemoglobin has dropped slightly from 1 month ago. She was 11.5 is now 9.7. In theory this could be secondary to postoperative bleeding.. Reexamination/ Reevaluation Time: 03/18/2020 22:07:00 . Course: improving. Notes: I assumed brief care of this patient from Mark Frias. This is a 20-year-old female patient who underwent laparoscopic lysis of adhesions for chronic pelvic pain performed yesterday by Dr. Ramos. She presents to the emergency department today primarily because she has been vomiting, several episodes of nonbloody nonbilious emesis. She has been unable to tolerate her p.o. pain medications for that reason. She received IV fluids as well as antiemetics. Initial round included Zofran and then a small dose of Haldol to take advantage of its antiemetic properties. For me, the patient had a soft abdomen. There was mild tenderness but no guarding or rigidity. Laparoscopic wound sites appeared intact and were not bleeding. This improved her nausea significantly. She tolerated p.o. challenge prior to discharge. I sent a note to the [facility] [employer] team telling them that she was here and asking them to follow closely with her tomorrow. Also in that note as well as to the patient, I told him about the hemoglobin count of 9.7. It is probably with a repeat CBC at some point in the next 24 to 48 hours to make sure there is no ongoing bleeding.. Impression and Plan Diagnosis Postoperative nausea and vomiting (AGQ57-DU R11.2, Discharge, Medical) Postoperative abdominal pain ([id number]-DT R10.9, Discharge, Medical) Anemia (NVX70-AK D64.9, Discharge, Medical) Plan Disposition: Patient care transitioned to: Time: 03/18/2020 20:41:00, ANTHONY ESTEVEZ Patient was given the following educational materials: Diagnostic Laparoscopy, Nausea and Vomiting, Adult, AA Blank Template (CUSTOM). Follow up with: ; ANTONINA Motta [employer] [employer] In 1 day 03/19/2020 Call for followup appointment. Counseled: Patient, Regarding diagnosis, Regarding diagnostic results, Regarding treatment plan, Regarding prescription, Patient indicated understanding of instructions. Future Appointments Diagnostic Tests Pending * Culture Urine 03/18/20 Functional Status 03/18/20 COVID-19 Screening None Medications ibuprofen 800 mg, 0 Refill(s) Start Date: 03/04/20 Status: Ordered morphine 15 mg/8 hr oral tablet, extended release 15 mg = 1 tab(s), Oral, q8hr, X 5 day(s), # 15 tab(s), 0 Refill(s), 03/22/20, Pharmacy: [facility] [place] [address] [employer], 1 tab(s) Oral q8hr,x5 day(s) Start Date: 03/17/20 Stop Date: 03/22/20 Status: Ordered norethindrone 5 mg oral tablet 10 mg = 2 tab(s), Oral, Daily, # 180 tab(s), 0 Refill(s) Start Date: 02/18/20 Status: Ordered Orilissa 150 mg oral tablet 150 mg = 1 tab(s), Oral, Daily, # 30 tab(s), 11 Refill(s), Pharmacy: [id number], 1tab(s) Oral Daily Start Date: 02/19/20 Status: Ordered Phenergan 25 mg rectal suppository 25 mg = 1 supp, Per rectum, q8hr, # 21 supp, 0 Refill(s), [facility]acy: [facility], 1 supp Per rectum q8hr Start Date: 03/04/20 Status: Ordered Zofran ODT 4 mg oral tablet, disintegrating 4 mg = 1 tab(s), Oral, q8hr, PRN PRN Nausea/Vomiting, 0 Refill(s) Start Date: 03/17/20 Status: Ordered Zofran ODT 4 mg oral tablet, disintegrating 4 mg = 1 tab(s), Oral, q8hr, PRN PRN Nausea/Vomiting, # 30 tab(s), 0 Refill(s), Pharmacy: [address], 1 tab(s) Oral q8hr,PRN:Nausea/Vomiting Start [...] Urinalysis with Culture, if indicated [facility] [place] 03/18/20 Automated Differential Standard 03/18/20 Basic Metabolic Panel Standard (BMP Thad dard) 03/18/20 CBC w/Diff Standard 03/18/20 Lactate 03/18/20 Urinalysis Microscopic Standard 03/18/20 Most recent to oldest [Reference Range]: 1 Urine Culture? Yes *NA* (03/18/20 9:16 PM) NRBC Auto Pct [0.00-0.20 %] 0.00 % (03/18/20 8:14 PM) Creatinine [0.50-0.90 mg/dL] 0.63 mg/dL (03/18/20 8:14 PM) UA Bacteria [None Seen] None Seen (03/18/20 9:16 PM) UA Bili [Negative] Negative (03/18/20 9:16 PM) UA Blood [Negative] Negative (03/18/20 9:16 PM) UA Color Yellow (03/18/20 9:16 PM) UA Glucose [Negative] Negative (03/18/20 9:16 PM) UA Ketones [Neg] Neg (03/18/20 9:16 PM) UA Leuk Est [Negative] Trace *ABN* (03/18/20 9:16 PM) UA Nitrite [Negative] Negative (03/18/20 9:16 PM) UA Protein [Negative] Negative (03/18/20 9:16 PM) UA RBC [0-2] 0-2 (03/18/20 9:16 PM) UA Urobilinogen 0.2 EU/dL (03/18/20 9:16 PM) UA WBC 0-2 (03/18/20 9:16 PM) Lactate [0.5-2.2 mmol/L] 1.0 mmol/L (03/18/20 8:14 PM) AGAP [10.0-18.0 mmol/L] 12.8 mmol/L (03/18/20 8:14 PM) Glucose Lvl [70-100 mg/dL] 90 mg/dL (03/18/20 8:14 PM) Hct [34.1-44.9 %] 31.3 % *LOW* (03/18/20 8:14 PM) Hgb [11.5-15.7 gm/dL] 9.7 gm/dL *LOW* (03/18/20 8:14 PM) Lymph Auto [15.0-45.0 %] 46.9 % *HI* (03/18/20 8:14 PM) MCH [25.6-32.2 pg] 24.6 pg *LOW* (03/18/20 8:14 PM) MCHC [32.3-36.5 gm/dL] 31.0 gm/dL *LOW* (03/18/20 8:14 PM) MCV [79.4-94.8 fL] 79.2 fL *LOW* (03/18/20 8:14 PM) [place] Auto [4.0-14.0 %] 6.8 % (03/18/20 8:14 PM) MPV [9.4-12.4 fL] 11.6 fL (03/18/20 8:14 PM) Neutro Auto [50.0-75.0 %] 43.2 % *LOW* (03/18/20 8:14 PM) Osmolality [268.0-291.0 mOsm/kg] 270.2 m Osm/kg (03/18/20 8:14 PM) Platelet [150-400 x10(3)/uL] 214 x10(3)/ uL (03/18/20 8:14 PM) RBC [3.93-5.22 x10(6)/uL] 3.95 x10(6)/uL (03/18/20 8:14 PM) Sodium Lvl [136-145 mmol/L] 137 mmol/L (03/18/20 8:14 PM) UA pH 7.5 (03/18/20 9:16 PM) Basophil Auto [0.0-2.0 %] 0.6 % (03/18/20 8:14 PM) CO2 [22-29 mmol/L] 26 mmol/L (03/18/20 8:14 PM) Eos Auto [0.0-8.0 %] 2.3 % (03/18/20 8:14 PM) UA Spec Grav 1.020 (03/18/20 9:16 PM) WBC [4.0-10.0 x10(3)/uL] 4.8 x10(3)/uL (03/18/20 8:14 PM) BUN [6-23 mg/dL] 4 mg/dL *LOW* (03/18/20 8:14 PM) Calcium Lvl [8.6-10.2 mg/dL] 8.7 mg/dL (03/18/20 8:14 PM) Chloride [98-107 mmol/L] 102 mmol/L (03/18/20 8:14 PM) Potassium Lvl [3.5-5.1 mmol/L] 3.8 mmol/ L (03/18/20 8:14 PM) Micro? [Not Indicated] Indicated *ABN* (03/18/20 9:16 PM) Lymph Absolute [1.20-3.70 x10(3)/uL] 2.2 6 x10(3)/uL (03/18/20 8:14 PM) [place] Absolute [0.20-0.40 x10(3)/uL] 0.33 x10(3)/uL (03/18/20 8:14 PM) Eos Absolute [0.04-0.54 x10(3)/uL] 0.11 x10(3)/uL (03/18/20 8:14 PM) NRBC Absolute [0.00-0.01 x10(3)/uL] 0.00 x10(3)/uL (03/18/20 8:14 PM) UA Clarity Slightly Cloudy *ABN* (03/18/20 9:16 PM) Neutro Absolute [1.56-6.13 x10(3)/uL] 2. 08 x10(3)/uL (03/18/20 8:14 PM) RDW-CV [11.7-14.4 %] 13.1 % (03/18/20 8:14 PM) GFR >60 mL/min/1.73 m2 *NA* (03/18/20 8:14 PM) GFR NonAfrican Trinidadian >60 mL/min/1.73 m2 *NA* (03/18/20 8:14 PM) UA Squam Epi Few *ABN* (03/18/20 9:16 PM) Immature Gran % [0.00-2.30 %] 0.20 % (03/18/20 8:14 PM) Immature Gran Absolute 0.01 x10(3)/uL *NA* (03/18/20 8:14 PM) Basophil Absolute [0.00-0.10 x10(3)/uL] 0.03 x10(3)/uL (03/18/20 8:14 PM) Orders for Microbiology Reports Name Date Culture Blood 03/18/20 Culture Blood 03/18/20 Microbiology Reports TEST:Culture Blood STATUS:Order in Progress BODY SITE: SOURCE:Blood COLLECTED DATE/TIME:03/18/20 8:14 PM PRELIMINARY REPORT No growth to date TEST:Culture Blood STATUS:Order in Progress BODY SITE: SOURCE:Blood COLLECTED DATE/TIME:03/18/20 8:14 PM PRELIMINARY REPORT No growth to date Vital Signs Most recent to oldest [Reference Range]: 1 2 Temperature Oral [35.8-37.3 DegC] 37.1 D egC (03/18/20 7:42 PM) Peripheral Pulse Rate [60-100 bpm] 88 bp m (03/18/20 10:12 PM) 102 bpm *HI* (03/18/20 7:42 PM) Respiratory Rate [14-20 br/min] 20 br/mi n (03/18/20 10:12 PM) 22 br/min *HI* (03/18/20 7:42 PM) Blood Pressure [90-140/60-90 mmHg] 120/6 1mmHg (03/18/20 10:12 PM) 119/74mmHg (03/18/20 7:42 PM) SpO2 [92-100 %] 99 % (03/18/20 10:12 PM) 98 % (03/18/20 7:42 PM) Height/Length Estimated 162.000 cm (03/18/20 7:42 PM) Height/Length Dosing 162.000 cm (03/18/20 7:47 PM) Weight Estimated 73.900 kg (03/18/20 7:42 PM) Weight Dosing 73.900 kg (03/18/20 7:47 PM) Social History Social History Type Response Smoking Status Never (less than 100 in lifetime) entered on: 02/18/20 Sex Hospital Discharge Instructions Patient Education 03/18/2020 22:23:52 AA Blank Template (CUSTOM) Your evaluated in the emergency department today after struggling with nausea and vomiting throughout the course of today which is postoperative day 1. Because of the vomiting, you had been unable to take your pain meds. Your evaluation today included lab testing, urinalysis. Your labs were encouraging, your kidney function is normal, you showed no signs of urinary tract infection. Your CBC did show a hemoglobin count which had dropped from 1 month ago from 11.5 to 9.7. This is somewhat expected postoperatively. It is important that this blood test, CBC be repeated in the next 2 days. I have asked your [facility] team to contact you tomorrow. 03/18/2020 22:23:52 Nausea and Vomiting, Adult Nausea and Vomiting, [...] added (diluted fruit juice). ??? Eat bland, jcqv-ap-ewhiqe foods in small amounts as you are able. These foods include bananas, applesauce, rice, lean meats, toast, and crackers. ??? Avoid fluids that contain a lot of sugar or caffeine, such as energy drinks, sports drinks, andsoda. ??? Avoid alcohol. ??? Avoid spicy or fatty foods. General instructions ??? Take weez-gdm-lmxqzft and prescription medicines only as told by your health care provider. ??? Drink enough fluid to keep your urine pale yellow. ??? Wash your hands often using soap and water. If soap and water are not available, use hand media reporter. ??? Make sure that all people in [...] and drinking to prevent dehydration. ??? Take ahid-dlh-xqdrual and prescription medicines only as told by [...] care provider. Document Released: 05/01/2006 Document Revised: 08/23/2019 Document Reviewed: 10/09/2018 [employer] Patient Education ?? 2020 [employer]. 03/18/2020 22:23:52 Diagnostic Laparoscopy Diagnostic Laparoscopy Diagnostic laparoscopy is a procedure to diagnose diseases in the abdomen. It might be done for a variety of reasons, such as to look for scar tissue, cancer, or a reason for abdomen (abdominal) pain. During the procedure, a thin, flexible tube that has a light and a camera on the end (laparoscope)is inserted through an incision in the abdomen. The image from the camera is shown on a monitor to h elp your surgeon see inside your body. Tell a health care provider about: ??? Any allergies you have. ??? All medicines you are taking, including vitamins, herbs, eye drops, creams, and ndio-cww-sannhrf medicines. ??? Any problems you or family members have had with anesthetic medicines. ??? Any blood disorders you have. ??? Any surgeries you have had. ??? Any medical conditions you have. What are the risks? Generally, this is a safe procedure. However, problems may occur, including: ??? Infection. ??? Bleeding. ??? Allergic reactions to medicines or dyes. ??? Damage to abdominal structures or organs, such as the intestines, liver, stomach, or spleen. What happens before the procedure? Medicines ??? Ask your health care provider about: ??? Changing or stopping your regular medicines. This is especially important if you are taking diabetes medicines or blood thinners. ??? Taking medicines such as aspirin and ibuprofen. These medicines can thin your blood. Do not take these medicines unless your health care provider tells you to take them. ??? Taking fvxt-rej-rziqxkk medicines, vitamins, herbs, and supplements. ??? You may be given antibiotic medicine to help prevent infection. Staying hydrated Follow instructions from your health care provider about hydration, which may include: ??? Up to 2 hours before the procedure ??? you may continue to drink clear liquids, such as water, clear fruit juice, black coffee, and plain tea. Eating and drinking restrictions Follow instructions from your health care provider about eating and drinking, which may include: ??? 8 hours before the procedure ??? stop eating heavy meals or foods such as meat, fried foods, orfatty foods. ??? 6 hours before the procedure ??? stop eating light meals or foods, such as toast or cereal. ??? 6 hours before the procedure ??? stop drinking milk or drinks that contain milk. ??? 2 hours before the procedure ??? stop drinking clear liquids. General instructions ??? Ask your health care provider how your surgical site will be marked or identified. ??? You may be asked to shower with a germ-killing soap. ??? Plan to have someone take you home from the hospital or clinic. ??? Plan to have a responsible adult care for you for at least 24 hours after you leave the hospital or clinic. This is important. What happens during the procedure? To lower your risk of infection: ??? Your health care team will wash or sanitize their hands. ??? Hair may be removed from the surgical area. ??? Your skin will be washed with soap. ??? An IV will be inserted into one of your veins. ??? You will be given a medicine to make you fall asleep (general anesthetic). You may also be given a medicine to help you relax (sedative). ??? A breathing tube will be placed down your throat to help you breathe during the procedure. ??? Your abdomen will be filled with an air-like gas so it expands. This will give the surgeon moreroom to operate and will make your organs easier to see. ??? Many small incisions will be made in your abdomen. ??? A laparoscope and other surgical instruments will be inserted into your abdomen through the incisions. ??? A tissue sample may be removed from an organ for examination (biopsy). This will depend on the reason why you are having this procedure. ??? The laparoscope and other instruments will be removed from your abdomen. ??? The gas will be released. ??? Your incisions will be closed with stitches (sutures) and covered with a bandage (dressing). ??? Your breathing tube will be removed. The procedure may vary among health care providers and hospitals. What happens after the procedure? Your blood pressure, heart rate, breathing rate, and blood oxygen level will be monitored untilthe medicines you were given have worn off. ??? Do not drive for 24 hours if you were given a sedative during your procedure. ??? It is up to you to get the results of your procedure. Ask your health care provider, or the department that is doing the procedure, when your results will be ready. Summary ??? Diagnostic laparoscopy is a way to look for problems in the abdomen using small incisions. ??? Follow instructions from your health care provider about how to prepare for the procedure. ??? Plan to have a responsible adult care for you for at least 24 hours after you leave the hospital or clinic. This is important. This information is not intended to replace advice given to you by your health care provider. Make sure you discuss any questions you have with your health care provider. Document Released: 08/07/2001 Document Revised: 04/13/2018 Document Reviewed: 10/25/2017 [employer] Patient Education ?? 2020 [employer] Follow Up Care 03/18/2020 19:31:22 With:ANTONINA Motta [employer] Address: [address] [place] [phone] Business (1) When:03/19/2020 Comments:Call for followup appointment
--- OUTSIDE RECORDS SUMMARY | 2022-11-20 17:53 | XMS_ITS | Continuity of Care Document ---
Author Name Unknown Organization [facility] Address [address] [place] [address]- Care Team Providers Care High Rigger Name Role Phone Adeel Busby Primary Care Physician Daksha deckerailliza Encounter BVT Date(s): 07/08/22 - 07/09/[address] [address]- [place] [phone] Discharge Disposition: Home or Self Care Attending Physician: MONSE PURI Admitting Physician: MONSE PURI Allergies, Adverse Reactions, Alerts Substance Reaction Severity Status droperidol Anaphylactic reaction Severe Active Haldol Tremor Moderate Active Phenergan Anaphylactic reaction Severe Active Latex Itching Active penicillins Edema Hives Active Compazine Edema Active Toradol Nausea Active Reglan Anaphylactic reaction Severe Active Assessment and Plan Extracted from: Title:Abdominal Pain *ED Author:MONSE PURI Date:07/09/22 History of Present Illness Patient presents the emergency department complaining of abdominal pain nausea and vomiting as well as decreased bowel movements. Patient has extensive medical history consistent of endometriosis, rectal vaginal fistula as well as partial colectomy with ostomy placement roughly 2 months ago, is being evaluated for possible ulcerative colitis, denies fevers or chills, denies any bleeding, has been unable to tolerate p.o. today prompting her to come to the emergency department. Review of Systems Additional review of systems information: All systems reviewed as documented in chart. Health Status Allergies: Allergic Reactions (Selected) Severe Droperidol- Anaphylactic reaction. Phenergan- Anaphylactic reaction. Reglan- Anaphylactic reaction. Moderate Haldol- Tremor. Severity Not Documented Compazine- Edema. Latex- Itching. Penicillins- Hives and edema. Toradol- Nausea.. Medications: (Selected) Inpatient Medications Ordered Lactated Ringers Injection 1,000 mL: 1,000 mL/hr, IV Lactated Ringers Injection 1,000 mL: 1,000 mL/hr, IV Prescriptions Prescribed !-Zofran ODT 4 mg oral [...] Social History Medical history: Resolved Ovarian torsion ([id number]): Resolved.. Surgical history: Repair of vaginal vault tear ([id number]) on 11/01/2021 at 21 Years. Comments: 02/11/2022 9:09 ERIN XIONG MD recurrent bleeding- excision of posterior vagianl tissue and repair- 4 cm area- bipsy sent to rule out vaginal endometriosis- not report avaialble Transfusion x 1 u PRBC Repair of vaginal vault tear ([id number]) on 10/25/2021 at 21 Years. Comments: 02/11/2022 9:07 ERIN XIONG MD vaginal vault tear with heavy bleeding following vaginal u/s. OR x 2 Hysteroscopy to evaluate uterine cavity- normal Transfusion x 2 u PRBC Laparoscopic ablation of pelvic endometriosis ([id number]) in the month of 03/2021 at 21 Years. Comments: 02/11/2022 8:54 ERIN XIONG MD recurrent pain, Laparoscopic excision of pelvic endometriosis ([id number]) on 03/05/2021 at 21 Years. Comments: 02/21/2022 11:12 Dick Forte Pathology Pelvic side wall biopsy LEFT: Mesothelial-lined fibrous tissue with focal calcification and foreign body giant cell reaction to polarizable material. No endomestrisosis identified. Laparoscopic ablation of pelvic endometriosis ([id number]) in the month of 08/2020 at 20 Years. Comments: 02/11/2022 8:53 ERIN XIONG MD Excision of endometriosis Cystoscopy ([id number]) on 08/26/2020 at 20 Years. Laparoscopic excision of pelvic endometriosis ([id number]) on 03/17/2020 at 20 Years. Comments: 04/16/2020 13:50 ERIN VERMA MD mild endometriosis otherwise normal anatomy Laparoscopic appendectomy ([id number]) in the month of 11/2019 at 19 Years. Comments: 03/04/2020 23:03 ERIN XIONG MD noted to have endometriosis on appendix D&C - Dilatation and curettage ([id number]) in the month of 06/2018 at 18 Years. Comments: 02/20/2020 10:14 ERIN XIONG MD menorrhagia Laparoscopy with aspiration ([id number]) in the month of 01/2018 at 18 Years. Comments: 02/20/2020 10:14 EDT - ERIN POWER MD aspiration of endometrioma Appendectomy ([id number]).. Family history: Diabetes mellitus type 2 Grandfather (Paternal) Cervical cancer Grandmother (Maternal) Cancer Mother Comments: 03/04/2020 13:15 EDT - Natalie Cade LPN Possibly breast ? per pt. Heart [...] Endometriosis . Physical Examination Vital Signs Measurements 07/08/2022 22:27 EST Height/Length Dosing 166.000 cm Weight Dosing 77.000 kg 07/08/2022 22:16 EST Height 166.000 cm Weight 77.000 kg . General: Alert, no acute distress. Skin: Warm, dry. Head: Atraumatic. Neck: Supple. Respiratory: Respirations are non-labored. Gastrointestinal: Tenderness: Moderate, generalized, Mild abdominal distention with diffuse nonfocal tenderness to palpation. Stoma with formed stool without any blood. No superficial skin changes.. Neurological: Alert and oriented to person, place, time, and situation. Psychiatric: Cooperative. Medical Decision Making Patient with nausea abdominal pain and vomiting, does have extensive abdominal surgical history, abdomen is mildly distended diffusely nonfocally tender, due to concern for possible obstruction obtain CT scan which did not show any signs of bowel obstruction but did show some signs of delayed bowel transit, patient's history is complicated by endometriosis which causes similar episodes of abdominal pain, given multiple rounds of antiemetics and pain control in the emergency department with good control of nausea, given signs of delayed transit as well as relative contraindication compared to the usual soft liquidy stools desired due to her stoma oral contrast was given for prokinetic and laxative effects. Patient tolerated p.o. well, is now having more bowel movements in the emergency department, has had some recurrence of the pain requiring IV medication. No blood in the bowel movements, no leukocytosis, no fevers and no findings on CAT scan suggestive of an ulcerative colitis flare at this time. Following antiemetics IV fluids and oral contrast patient is now having significant improvement of her symptoms, patient is requesting to be discharged home, still has some mild pain and nausea is requesting 1 more round of medication prior to discharge but still feels ready to go home. Patient has close follow-up with her specialists in [place], will be calling them later today, has an appointment with them on Monday but will head down to see them if her symptoms return/worsen or at the recommendation when she calls them. Given lack of any acute findings on evaluation here in the emergency department, tolerating p.o., passing bowel movements will discharge patient with strict return precautions discussed. Impression and Plan Diagnosis abdominal pain Plan Condition: Improved. Patient was given the following educational materials: Abdominal Pain, Adult. Functional Status 07/08/22 History of Fall in Last 3 Months Zhou N o Recent Travel History No recent travel Family Member Travel History No recent t sania PIMENTELID-19 Screening None Medications !-Zofran ODT 4 mg oral tablet, disintegrating 4 mg = 1 tab(s), Oral, q8hr, PRN PRN Nausea/Vomiting, # 30 tab(s), 0 Refill(s), Pharmacy: [facility] #[id number], 1 tab(s) Oral q8hr,PRN:Nausea/Vomiting, 164, cm, 01/17/22 [...] 60 tab(s), 3 Refill(s), [facility]: [facility], 2tab(s) Oral Daily,x30 day(s) Start Date: [...] 30 tab(s), 2 Refill(s), [id number], 2 tab(s) Oral TID,x5 day(s),Instr:st... Start Date: 03/16/22 Stop Date: 03/31/22 Status: Ordered traZODone 100 mg oral tablet 100 mg = 1 tab(s), Oral, Daily, 0 Refill(s) Start Date: 09/27/20 Status: Ordered Mental Status 07/08/22 Level of Consciousness Alert Problem List Condition [...] Laboratory List Name Date Automated Differential Standard 07/08/22 Basic Metabolic Panel Standard (BMP Thad dard) 07/08/22 CBC w/Diff Standard 07/08/22 Lipase Level 07/08/22 Most recent to oldest [Reference Range]: 1 eGFR CKD-EPI [>=60 mL/min/1.73 m2] 126.3 3 mL/min/1.73 m2 *NA* (07/08/22 11:11 PM) NRBC Auto Pct [0.00-0.20 %] 0.00 % (07/08/22 11:11 PM) Creatinine [0.50-0.90 mg/dL] 0.66 mg/dL (07/08/22 11:11 PM) AGAP [10.0-18.0 mmol/L] 14.8 mmol/L (07/08/22 11:11 PM) Glucose Lvl [70-100 mg/dL] 88 mg/dL (07/08/22 11:11 PM) Hct [34.1-44.9 %] 30.0 % *LOW* (07/08/22 11:11 PM) Hgb [11.5-15.7 gm/dL] 9.7 gm/dL *LOW* (07/08/22 11:11 PM) Lipase Lvl [13-60 IntUnit/L] 15 IntUnit/ L (07/08/22 11:11 PM) Lymph Auto [15.0-45.0 %] 36.1 % (07/08/22 11:11 PM) MCH [25.6-32.2 pg] 26.0 pg (07/08/22 11:11 PM) MCHC [32.3-36.5 gm/dL] 32.3 gm/dL (07/08/22 11:11 PM) MCV [79.4-94.8 fL] 80.4 fL (07/08/22 11:11 PM) Robertson Auto [4.0-14.0 %] 6.0 % (07/08/22 11:11 PM) MPV [9.4-12.4 fL] 10.8 fL (07/08/22 11:11 PM) Neutro Auto [50.0-75.0 %] 53.3 % (07/08/22 11:11 PM) Osmolality [268.0-291.0 mOsm/kg] 279.7 m Osm/kg (07/08/22 11:11 PM) Platelet [150-400 x10(3)/uL] 243 x10(3)/ uL (07/08/22 11:11 PM) RBC [3.93-5.22 x10(6)/uL] 3.73 x10(6)/uL *LOW* (07/08/22 11:11 PM) Sodium Lvl [136-145 mmol/L] 141 mmol/L (07/08/22 11:11 PM) Basophil Auto [0.0-2.0 %] 1.2 % (07/08/22 11:11 PM) CO2 [22-29 mmol/L] 28 mmol/L (07/08/22 11:11 PM) Eos Auto [0.0-8.0 %] 3.2 % (07/08/22 11:11 PM) WBC [4.0-10.0 x10(3)/uL] 5.0 x10(3)/uL (07/08/22 11:11 PM) BUN [6-23 mg/dL] 10 mg/dL (07/08/22 11:11 PM) Calcium Lvl [8.6-10.2 mg/dL] 9.5 mg/dL (07/08/22 11:11 PM) Chloride [98-107 mmol/L] 102 mmol/L (07/08/22 11:11 PM) Potassium Lvl [3.5-5.1 mmol/L] 3.8 mmol/ L (07/08/22 11:11 PM) Lymph Absolute [1.20-3.70 x10(3)/uL] 1.7 9 x10(3)/uL (07/08/22 11:11 PM) Robertson Absolute [0.20-0.40 x10(3)/uL] 0.30 x10(3)/uL (07/08/22 11:11 PM) Eos Absolute [0.04-0.54 x10(3)/uL] 0.16 x10(3)/uL (07/08/22 11:11 PM) NRBC Absolute [0.00-0.01 x10(3)/uL] 0.00 x10(3)/uL (07/08/22 11:11 PM) Neutro Absolute [1.56-6.13 x10(3)/uL] 2. 64 x10(3)/uL (07/08/22 11:11 PM) RDW-CV [11.7-14.4 %] 13.6 % (07/08/22 11:11 PM) Immature Gran % [0.00-2.30 %] 0.20 % (07/08/22 11:11 PM) Immature Gran Absolute 0.01 x10(3)/uL *NA* (07/08/22 11:11 PM) Basophil Absolute [0.00-0.10 x10(3)/uL] 0.06 x10(3)/uL (07/08/22 11:11 PM) Radiology Reports * Exam Date Time Procedure Performing Provider Status 07/08/22 11:[address] Abdomen/Pelvis w/ Contrast James Newton; Mark (Verified) Notes: (CT Abdomen/Pelvis w/ Contrast) Reason For Exam: abd distention, nausea, vomiting, multiple abdominal surgeries CT Abdomen/Pelvis w/ Contrast EXAMINATION: CT Abdomen/Pelvis w/ Contrast CLINICAL HISTORY: abd distention, nausea, vomiting, multiple abdominal surgeries TECHNIQUE: Helical CT of the abdomen and pelvis was performed following the intravenous administration of 100 ml of Omnipaque 300. Oral contrast was not administered. COMPARISON: 06/24/2022 FINDINGS: Lower chest: Lung bases are clear. No pleural or parenchymal disease. Normal heart size. No pericardial effusion. GE junction is normal. Liver: Normal size and attenuation without lesions. Bile ducts: Nondilated. Gallbladder: No calcified gallstones. Normal caliber wall. Pancreas: Normal attenuation without ductal dilatation. Spleen: Normal. Adrenals: Normal. Kidneys: Symmetric nephrograms. No mass. No obstruction. Nonobstructing calculus left kidney image 27 series 2 measuring in the 2 to 3 mm range Urinary Bladder: Normal. Vasculature: No aneurysm. Lymph Nodes: No enlarged lymph nodes. Bowel: GE junction normal. Moderate distention of the stomach. Duodenal C-sweep within normal limits. Small bowel normal in caliber. There is formed stool/fecal material within the distal ileum suggesting delayed transit time. Moderate stool burden throughout the colon. There is a colostomy in the left lower quadrant. The remaining sigmoid colon contains stool with relatively high attenuation suggesting inspissated material. Peritoneum and mesentery: No ascites, free air, or loculated fluid collection. No mesenteric inflammation. Abdominal wall: Left lower quadrant ostomy without complication. Reproductive organs: Normal. Osseous structures: No suspicious lesions. IMPRESSION: Moderate distention of the stomach. No pathologic dilatation of bowel loops. Formed stool in the distal ileum suggesting delayed transit time. Moderate stool burden in the colon. Thank you for letting us participate in the care of this patient. If you are a health care provider and have any questions regarding this report, please contact the number below. For patients who have questions please contact the health career based intervention coordinator that requested your imaging first. Electronically signed by: Tamie Madsen MD, [facility] ([phone]), at 07/09/2022 12:15 AM Final Dictated: 07/09/2022 0:15 am TAMIE MADSEN Signed (Electronic Signature): 07/09/2022 0:15 am Signed by: TAMIE MADSEN Vital Signs Most recent to oldest [Reference Range]: 1 2 3 Temperature Temporal Artery [36.3-37.8 DegC] 37.3 DegC (07/08/22 10:16 PM) Peripheral Pulse Rate [60-100 bpm] 77 bpm (07/09/22 3:32 AM) 91 bpm (07/09/22 1:47 AM) 92 bpm (07/08/22 10:16 PM) Respiratory Rate [14-20 br/min] 18 br/min (07/08/22 10:16 PM) Blood Pressure [90-140/60-90 mmHg] 105/60mmHg (07/09/22 3:32 AM) 117/74mmHg (07/09/22 1:47 AM) 135/83mmHg (07/08/22 10:16 PM) Mean Arterial Pressure, Cuff [70-110 mmHg] 75 mmHg (07/09/22 3:32 AM) 88 mmHg (07/09/22 1:47 AM) Mean Arterial Pressure Cuff-Monitor 73 mmHg (07/09/22 3:32 AM) 86 mmHg (07/09/22 1:47 AM) SpO2 [92-100 %] 98 % (07/09/22 3:32 AM) 87 % *LOW* (07/09/22 1:47 AM) 100 % (07/08/22 10:16 PM) Height 166.000 cm (07/08/22 10:16 PM) Height/Length Dosing 166.000 cm (07/08/22 10:27 PM) Weight 77.000 kg (07/08/22 10:16 PM) Weight Dosing 77.000 kg (07/08/22 10:27 PM) Social History Social History Type Response Tobacco Never tobacco user T obacco Use:. Sex Hospital Discharge Instructions Patient Education 07/09/2022 03:18:20 Abdominal Pain, Adult It is very important that you do your specialist to call first thing in the morning, and also need to follow-up with them at your appointment on Monday or sooner if they would like to see you before that. If anything changes before then, if you develop fevers, unable to keep down liquids or food ordevelop any new symptoms please come back to the emergency department immediately Abdominal Pain, Adult Pain in the abdomen [...] these instructions at home: Medicines ??? Take [id number] and prescription medicines only as told by [...] your condition for any changes. ??? Take [id number] and prescription medicines only as told by [...] provider. Document Revised: 06/19/2020 Document Reviewed: 09/09/2019 [employer] Patient Education ?? 2021 [employer]. Physician Emergency department Note * MONSE PURI: SIGN, VERIFY, MODIFY, PERFORM Event Display: ED Note - Physician Authored Date: [id number] Patient: EDUARDO PAYAN Age: 22 years Sex: Female : 2000 Associated Diagnoses: None Author: MONSE PURI Basic Information Additional information: Chief Complaint from Nursing Triage Note : Chief Complaint 07/08/2022 22:16 EST Chief Complaint Pt presents to ED with nausea and vomiting that started this morning. Pt also endorses lower abdominal pain. Pt has stoma that was placed in April d/t a rectal/vaginal fistula. Pt unsure of loose stools as this is new to her. . History of Present Illness Patient presents the emergency department complaining of abdominal pain nausea and vomiting as wellas decreased bowel movements. Patient has extensive medical history consistent of endometriosis, rectal vaginal fistula as well as partial colectomy with ostomy placement roughly 2 months ago, is being evaluated for possible ulcerative colitis, denies fevers or chills, denies any bleeding, has beenunable to tolerate p.o. today prompting her to come to the emergency department. Review of Systems Additional review of systems information: All systems reviewed as documented in chart. Health Status Allergies: Allergic Reactions (Selected) Severe Droperidol- Anaphylactic reaction. Phenergan- Anaphylactic reaction. Reglan- Anaphylactic reaction. Moderate Haldol- Tremor. Severity Not Documented Compazine- Edema. Latex- Itching. Penicillins- Hives and edema. Toradol- Nausea.. Medications: (Selected) Inpatient Medications Ordered Lactated Ringers Injection 1,000 mL: 1,000 mL/hr, IV Lactated Ringers Injection 1,000 mL: 1,000 mL/hr, IV Prescriptions Prescribed !-Zofran ODT 4 mg oral [...] Social History Medical history: Resolved Ovarian torsion ([id number]): Resolved.. Surgical history: Repair of vaginal vault tear ([id number]) on 11/01/2021 at 21 Years. Comments: 02/11/2022 9:09 ERIN XIONG MD recurrent bleeding- excision of posterior vagianl tissue and repair- 4 cm area- bipsy sent to rule out vaginal endometriosis- not report avaialble Transfusion x 1 u PRBC Repair of vaginal vault tear ([id number]) on 10/25/2021 at 21 Years. Comments: 02/11/2022 9:07 ERIN XIONG MD vaginal vault tear with heavy bleeding following vaginal u/s. OR x 2 Hysteroscopy to evaluate uterine cavity- normal Transfusion x 2 u PRBC Laparoscopic ablation of pelvic endometriosis ([id number]) in the month of 03/2021 at 21 Years. Comments: 02/11/2022 8:54 ERIN XIONG MD recurrent pain, Laparoscopic excision of pelvic endometriosis ([id number]) on 03/05/2021 at 21 Years. Comments: 02/21/2022 11:12 Dick Forte Pathology Pelvic side wall biopsy LEFT: Mesothelial-lined fibrous tissue with focal calcification and foreignbody giant cell reaction to polarizable material. No endomestrisosis identified. Laparoscopic ablation of pelvic endometriosis ([id number]) in the month of 08/2020 at 20 Years. Comments: 02/11/2022 8:53 ERIN XIONG MD Excision of endometriosis Cystoscopy ([id number]) on 08/26/2020 at 20 Years. Laparoscopic excision of pelvic endometriosis ([id number]) on 03/17/2020 at 20 Years. Comments: 04/16/2020 13:50 ERIN VERMA MD mild endometriosis otherwise normal anatomy Laparoscopic appendectomy ([id number]) in the month of 11/2019 at 19 Years. Comments: 03/04/2020 23:03 ERIN XIONG MD noted to have endometriosis on appendix D&C - Dilatation and curettage ([id number]) in the month of 06/2018 at 18 Years. Comments: 02/20/2020 10:14 ERIN XIONG MD menorrhagia Laparoscopy with aspiration ([id number]) in the month of 01/2018 at 18 Years. Comments: 02/20/2020 10:14 ERIN XIONG MD aspiration of endometrioma Appendectomy ([id number]).. Family history: Diabetes mellitus type 2 Grandfather [...] Endometriosis . Physical Examination Vital Signs Measurements 07/08/2022 22:27 EST Height/Length Dosing 166.000 cm Weight Dosing 77.000 kg 07/08/2022 22:16 EST Height 166.000 cm Weight 77.000 kg . General: Alert, no acute distress. Skin: Warm, dry. Head: Atraumatic. Neck: Supple. Respiratory: Respirations are non-labored. Gastrointestinal: Tenderness: Moderate, generalized, Mild abdominal distention with diffuse nonfocal tenderness to palpation. Stoma with formed stool without any blood. No superficial skin changes.. Neurological: Alert and oriented to person, place, time, and situation. Psychiatric: Cooperative. Medical Decision Making Patient with nausea abdominal pain and vomiting, does have extensive abdominal surgical history, abdomen is mildly distended diffusely nonfocally tender, due to concern for possible obstruction obtain CT scan which did not show any signs of bowel obstruction but did show some signs of delayed boweltransit, patient's history is complicated by endometriosis which causes similar episodes of abdominal pain, given multiple rounds of antiemetics and pain control in the emergency department with goodcontrol of nausea, given signs of delayed transit as well as relative contraindication compared to the usual soft liquidy stools desired due to her stoma oral contrast was given for prokinetic and laxative effects. Patient tolerated p.o. well, is now having more bowel movements in the emergency department, has had some recurrence of the pain requiring IV medication. No blood in the bowel movements, no leukocytosis, no fevers and no findings on CAT scan suggestive of an ulcerative colitis flare at this time. Following antiemetics IV fluids and oral contrast patient is now having significant improvement of her symptoms, patient is requesting to be discharged home, still has some mild pain and nausea is requesting 1 more round of medication prior to discharge but still feels ready to go home. Patient hasclose follow-up with her specialists in [place], will be calling them later today, has an appointment with them on Monday but will head down to see them if her symptoms return/worsen or at the recommendation when she calls them. Given lack of any acute findings on evaluation here in the emergency department, tolerating p.o., passing bowel movements will discharge patient with strict return pre cautions discussed. Impression and Plan Diagnosis abdominal pain Plan Condition: Improved. Patient was given the following educational materials: Abdominal Pain, Adult. [Electronically Signed on: 07/09/2022 05:28 EST] MONSE PURI DO [Verified on: 07/09/2022 05:28 EST] MONSE PURI DO CT Abdomen and Pelvis W contrast IV * TAMIE MADSEN: VERIFY, VERIFY, PERFORM Event Display: Report Authored Date: [id number] EXAMINATION: CT Abdomen/Pelvis w/ Contrast CLINICAL HISTORY: abd distention, nausea, vomiting, multiple abdominal surgeries TECHNIQUE: Helical CT of the abdomen and pelvis was performed following the intravenous administration of 100 ml of Omnipaque 300. Oral contrast was not administered. COMPARISON: 06/24/2022 FINDINGS: Lower chest: Lung bases are clear. No pleural or parenchymal disease. Normal heart size. No pericardial effusion. GE junction is normal. Liver: Normal size and attenuation without lesions. Bile ducts: Nondilated. Gallbladder: No calcified gallstones. Normal caliber wall. Pancreas: Normal attenuation without ductal dilatation. Spleen: Normal. Adrenals: Normal. Kidneys: Symmetric nephrograms. No mass. No obstruction. Nonobstructing calculus left kidney image 27 series 2 measuring in the 2 to 3 mm range Urinary Bladder: Normal. Vasculature: No aneurysm. Lymph Nodes: No enlarged lymph nodes. Bowel: GE junction normal. Moderate distention of the stomach. Duodenal C-sweep within normal limits. Small bowel normal in caliber. There is formed stool/fecal material within the distal ileum suggesting delayed transit time. Moderate stool burden throughout the colon. There is a colostomy in the left lower quadrant. The remaining sigmoid colon contains stool with relatively high attenuation suggesting inspissated material. Peritoneum and mesentery: No ascites, free air, or loculated fluid collection. No mesenteric inflammation. Abdominal wall: Left lower quadrant ostomy without complication. Reproductive organs: Normal. Osseous structures: No suspicious lesions. IMPRESSION: Moderate distention of the stomach. No pathologic dilatation of bowel loops. Formed stool in the distal ileum suggesting delayed transit time. Moderate stool burden in the colon. Thank you for letting us participate in the care of this patient. If you are a health care provider and have any questions regarding this report, please contact the number below. For patients who have questions please contact the health career based intervention coordinator that requested your imaging first. Electronically signed by: Tamie Madsen MD, [facility] ([phone]), at 07/09/2022 12:15 AM Final Dictated: 07/09/2022 0:15 am TAMIE MADSEN Signed (Electronic Signature): 07/09/2022 0:15 am Signed by: TAMIE MADSEN Patient Care team information Care Team Personnel Name: ALANIS DE LA TORRE Position: [facility] Physician OB Tracking Member Role: Nurse Practitioner Address: Address: [address] [place] [address] Name: ERIN POWER MD Position: [facility] Physician OB Tracking Member Role: LARRIMAN HELPER Physician Address: Address: [address] Name: ABELARDO FAULKNER Position: [facility] Physician Acute/Clinic/PNED Member Role: Nurse Practitioner Address: Address: [address] [place] [address] Name: Adeel Busby Position: [facility] No Access Member Role: Primary Care Physician Name: Brisa Bernal RN Position: [facility] RN LP PCSC Member Role: ED Nurse Name: MONSE PURI [facility]: [facility] [facility] Member Role: Attending Physician Care Team Related Persons Name: BO PAYAN
--- OUTSIDE RECORDS SUMMARY | 2022-11-20 17:53 | XMS_ITS | Continuity of Care Document ---
Author Name Unknown Organization [facility] Address [address] [place] [id number]- Care Team Providers Care Turner Off Name Role Phone Non-Staff, Physician Primary Care Physician Unav ailable Encounter [facility] [id number] Date(s): 03/13/20 - 03/13/[address] [address]- Encounter Diagnosis Encounter for screening for other viral diseases(Discharge Diagnosis) - 03/13/20 Discharge Disposition: Home Attending Physician: Feliberto Silva Admitting Physician: Feliberto Silva Allergies, Adverse Reactions, Alerts Substance Reaction Severity Status Latex Itching Active penicillins Edema Hives Active Compazine Edema Active Toradol Nausea Active Assessment and Plan Future Appointments Medications ibuprofen 800 mg, 0 Refill(s) Start Date: 03/04/20 Status: Ordered norethindrone 5 mg oral tablet 10 mg = 2 tab(s), Oral, Daily, # 180 tab(s), 0 Refill(s) Start Date: 02/18/20 Status: Ordered Orilissa 150 mg oral tablet 150 mg = 1 tab(s), Oral, Daily, # 30 tab(s), 11 Refill(s), Pharmacy: [id number], 1tab(s) Oral Daily Start Date: 02/19/20 Status: Ordered Phenergan 25 mg rectal suppository 25 mg = 1 supp, Per rectum, q8hr, # 21 supp, 0 Refill(s), Pharmacy: [id number] [address], 1 supp Per rectum q8hr Start Date: 03/04/20 Status: Ordered sertraline 75 mg, Oral, Daily, 0 Refill(s) Start Date: 02/18/20 Status: Ordered Zofran ODT 4 mg oral tablet, disintegrating 4 mg = 1 tab(s), Oral, q8hr, PRN PRN Nausea/Vomiting, # 30 tab(s), 0 Refill(s), [facility]: [facility], 1 tab(s) Oral q8hr,PRN:Nausea/Vomiting [...] of endometrioma Results Laboratory List Name Date SARS-CoV-2 (COVID-19) PCR (BD MAX) 03/13 Most recent to oldest [Reference Range]: 1 SARS-CoV-2 (COVID-19) PCR (BD MAX) [Nega tive] Negative (03/13/20 11:27 AM) Employed in healthcare? Unknown *NA* (03/13/20 11:27 AM) Symptomatic as defined by CDC? Unknown *NA* (03/13/20 11:27 AM) Hospitalized due to COVID-19? Unknown *NA* (03/13/20 11:27 AM) In ICU? Unknown *NA* (03/13/20 11:27 AM) Group care resident? Unknown *NA* (03/13/20 11:27 AM) status? Not *NA* (03/13/20 11:27 AM) Social History Social History Type Response Smoking Status Never (less than 100 in lifetime) entered on: 02/18/20 Sex
--- OUTSIDE RECORDS SUMMARY | 2022-11-20 17:53 | XMS_ITS | Continuity of Care Document ---
Author Name Unknown Organization [facility] Address [address] [place] [address]- Care Team Providers Care Toe Former Name Role Phone Adeel Busby Primary Care Physician Daksha navailable Encounter [facility] Date(s): 02/17/22 - 07/11/[address] [place], [place] [address] Discharge Disposition: Other Attending Physician: MANDO HUBBARD Allergies, Adverse Reactions, Alerts Substance Reaction Severity Status droperidol Anaphylactic reaction Severe Active penicillins Edema Hives Active Haldol Tremor Moderate Active Phenergan Anaphylactic reaction Severe Active Latex Itching Active Compazine Edema Active Toradol Nausea Active Reglan Anaphylactic reaction Severe Active Medications !-Zofran ODT 4 mg oral tablet, disintegrating 4 mg = 1 tab(s), Oral, q8hr, PRN PRN Nausea/Vomiting, # 30 tab(s), 0 Refill(s), [facility]acy: [id number], 1 tab(s) Oral q8hr,PRN:Nausea/Vomiting, 164, cm, 01/17/22 [...] 60 tab(s), 3 Refill(s), [facility]: [facility], 2tab(s) Oral Daily,x30 day(s) Start [...] 30 tab(s), 2 Refill(s), [facility]: [id number], 2 tab(s) Oral TID,x5 day(s),Instr:st... Start Date: [...] endometrioma Social History Social History Type Response Tobacco Never tobacco user T obacco Use:. Sex Patient Care team information Care Team Personnel Name: ALANIS DE LA TORRE Position: [facility] Physician OB Tracking Member Role: Nurse Practitioner Address: Address: [address] Name: ERIN POWER MD Position: [facility] Physician OB Tracking Member Role: CUTTER GAS Physician Address: Address: [address] Name: AEBLARDO FAULKNER Position: [facility] Physician Acute/Clinic/PNED Member Role: Nurse Practitioner Address: Address: [address] [place], [place] [id number]- Name: Adeel Busby Position: [facility] No Access Member Role: Primary Care Physician Care Team Related Persons Name: BO PAYAN
--- OUTSIDE RECORDS SUMMARY | 2022-11-20 17:53 | XMS_ITS | Continuity of Care Document ---
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 Name Role Phone RICARDO RUTH Primary Care Physician [phone] Encounter BVT Date(s): 07/13/21 - 07/14/[address] [address]- [place] [phone] Encounter Diagnosis Female pelvic pain(Discharge Diagnosis) - 07/14/21 Endometriosis(Discharge Diagnosis) - 07/14/21 Discharge Disposition: Home or Self Care Attending Physician: Brisa Ledesma Admitting Physician: Brisa Ledesma Allergies, Adverse Reactions, Alerts Substance Reaction Severity Status droperidol Moderate Active Latex Itching Active penicillins Edema Hives Active Haldol Moderate Active Compazine Edema Active Toradol Nausea Active Assessment and Plan Extracted from: Title:General Medical Problem *ED Author:Brisa Ledesma Date:07/13/21 History of Present Illness 21 yoF w/ PMH of endometriosis, ovarian cyst presents complaining of abdominal pain. Patient reports diffuse lower abdominal pain which onset approximately 9 hours prior to evaluation. She reports pain is sharp and stabbing. She reports she has taken Tylenol for this without relief. Patient reports she has had significant difficulty with pain in her abdomen. She reports that she does not feel this is due to her endometriosis as this has been better controlled since she was started on gabapentin. She reports associated symptoms of thin light green discharge. She reports this has sometimes occurred with leaving in a tampon for too long; she reports that she has a history of PID and does not feel her pain is similar to this. She reports she is sexually active with a single partner. Patient reports her last menstrual cycle was 2 weeks ago. She denies bleeding between cycles. She reports chronic nausea and vomiting due to her abdominal pain. Patient reports she is currently followed by [facility] for her endometriosis and will be seeing a surgeon there. She reports she was last seen in [place] approximately 1 month ago. She reports her last surgery was in February 2021. Patient denies fevers or chills. She denies difficulty with urination. She reports she has a hemorrhoid which intermittently causes some blood in her stool but denies other GI complaints. Patient reports she additionally has noticed some subtle bruising over bilateral hips which is new; she denies known trauma.. Review of Systems Constitutional symptoms: No fever, Skin symptoms: No rash, ENMT symptoms: No sore throat, Respiratory symptoms: No shortness of breath, Cardiovascular symptoms: No chest pain, Gastrointestinal symptoms: Abdominal pain, severe, pelvic, nausea, vomiting. Genitourinary symptoms: No dysuria, Musculoskeletal symptoms: Back pain. Neurologic symptoms: No headache, Endocrine symptoms: No [...] Surgical history: Laparoscopic excision of pelvic endometriosis ([id number]) on 03/17/2020 at 20 Years. Comments: 04/16/2020 13:50 ERIN VERMA MD mild endometriosis otherwise normal anatomy Laparoscopic appendectomy ([id number]) in the month of 11/2019 at 19 Years. Comments: 03/04/2020 23:03 ERIN XIONG MD noted to have endometriosis on appendix D&C - Dilatation and curettage ([id number]) in the month of 06/2018 at 18 Years. Comments: 02/20/2020 10:14 ERIN XIONG MD menorrhagia Laparoscopy with aspiration ([id number]) in the month of 01/2018 at 18 [...] times per month Employment/School Unemployed, Work/School description: [employer]. Exercise Exercise frequency: Daily. Exercise type: Walking. [...] . Physical Examination Vital Signs Vital Signs 07/13/2021 17:09 EST Temperature Temporal 36.5 DegC Peripheral Pulse Rate 68 bpm Respiratory Rate 18 br/min Systolic Blood Pressure 113 mmHg Diastolic Blood Pressure 73 mmHg SpO2 99 % . Measurements 07/13/2021 17:17 EST Height/Length Dosing 165.000 cm Weight Dosing 83.000 kg 07/13/2021 17:09 EST Height/Length Estimated 165.000 cm Weight Estimated 83.000 kg . Basic Oxygen Information 07/13/2021 17:09 EST Oxygen Therapy Room air . General: Alert, Uncomfortable appearing, tearful, Faded yellow ecchymosis overlying bilateral ASIS. Skin: Warm, dry. Head: Normocephalic, atraumatic. Eye: Pupils are equal, round and reactive to light, extraocular movements are intact. Cardiovascular: Regular rate and rhythm, No murmur. Respiratory: Lungs are clear to auscultation. Chest wall: No deformity. Gastrointestinal: Soft, Normal bowel sounds, Diffuse tenderness to palpation over lower half of abdomen with no focality. Neurological: Alert and oriented to person, place, time, and situation. Medical Decision Making Rationale: 21 yoF with PMH of endometriosis, ovarian cysts, chronic pelvic pain on gabapentin presents complaining of pelvic pain. Differential diagnosis includes but is not limited to endometriosis, PID, UTI, less likely . Doubt ovarian torsion given diffuse bilateral nature of pain as well as variable reports of onset/chronicity. Feel PID/TOA is less likely in absence of associated infectious symptoms as well as patient self reported chronicity of nausea and vomiting. Given ecchymosis on hips, will plan for CT scan to evaluate for retroperitoneal bleeding; of note, patient had similar presentation here 04/2021 with ecchymosis on left hip and negative CT scan. Patient initially treated with IV ondansetron and morphine for pain, and reporting some relief but return of symptoms. Labs demonstrate no evidence of anemia, leukocytosis, or electrolyte derangement. UA demonstrates no evidence of infection. Overall, low suspicion for PID/TOA. CT scan demonstrates no acute pathology to explain patient's symptoms. Patient requesting ketamine for pain as she has heard that this is a chronic pain treatment, counseled that intermittent ketamine infusions for chronic pain are not a routine part of our emergency practice. Patient transitioned to ondansetron with oral oxycodone. At that time, patient requesting discharge with pelvic self swab testing pending (wet prep/TERESA negative after discharge). Of note, patient also requested discharge prescription for pain medications. I reviewed patient's PDMP which demonstrated that she has had 7 different narcotic prescriptions from 7 different providers since 05/15/2021; while these short course prescriptions do not overlap, I am very concerned about her use of multiple prescribers in multiple cities for these high risk medications. Patient was not discharged with narcotic pain medication. Patient was strongly encouraged to follow-up closely with her specialist providers regarding her acute on chronic pelvic pain.. Results review: Lab results : Lab View 07/14/2021 0:16 EST Wet Prep Clue No Clue Cells Wet Prep Trichomonas None Seen Wet Prep WBC No WBC Seen Wet Prep Yeast No Yeast 07/13/2021 23:16 EST UA Color YELLOW UA Clarity CLEAR UA Spec Grav <=1.005 UA Bili NEGATIVE UA pH 6.5 UA Urobilinogen 0.2 EU/dL UA Blood Large UA Glucose NEGATIVE UA Ketones TRACE UA Protein Trace UA Nitrite NEGATIVE UA Leuk Est NEGATIVE Urine Culture? No Micro? Indicated UA WBC 0-2 UA RBC 30-50 UA Bacteria Small UA Squam Epi Moderate 07/13/2021 21:52 EST HCG Qualitative Serum Negative 07/13/2021 21:42 EST WBC 5.6 x10(3)/uL RBC 4.48 x10(6)/uL Hgb 11.6 gm/dL Hct 36.2 % MCV 80.8 fL MCH 25.9 pg MCHC 32.0 gm/dL LOW RDW-CV 14.4 % Platelet 211 x10(3)/uL MPV 10.1 fL Neutro Auto 55.1 % Lymph Auto 35.4 % King Auto 6.8 % Eos Auto 1.6 % Basophil Auto 0.9 % Immature Gran % 0.20 % NRBC Auto Pct 0.00 % Neutro Absolute 3.07 x10(3)/uL Lymph Absolute 1.97 x10(3)/uL King Absolute 0.38 x10(3)/uL Eos Absolute 0.09 x10(3)/uL Basophil Absolute 0.05 x10(3)/uL Immature Gran Absolute 0.01 x10(3)/uL NA NRBC Absolute 0.00 x10(3)/uL Sodium Lvl 137 mmol/L Potassium Lvl 3.5 mmol/L Chloride 101 mmol/L CO2 25 mmol/L AGAP 14.5 mmol/L BUN 10 mg/dL Creatinine 0.63 mg/dL GFR NonAfrican Hungarian 118 mL/min/1.73 m2 Glucose Lvl 81 mg/dL Calcium Lvl 9.6 mg/dL Osmolality 271.9 mOsm/kg . Radiology results: CT (ST) Computed Tomography: ?? CT Abdomen/Pelvis w/ Contrast ?? 07/14/21 00:07:24 EXAMINATION: CT Abdomen/Pelvis w/ Contrast CLINICAL HISTORY: Pelvic pain TECHNIQUE: Helical CT of the abdomen and pelvis was performed following the intravenous administration of 99 ml of Omnipaque 300. COMPARISON: 06/20/2021 FINDINGS: Lower chest: Normal. Liver: Normal. Bile ducts: Not dilated. Gallbladder: No calcified gallstones. Pancreas: Normal. Spleen: Normal. Adrenals: Normal. Kidneys: Symmetric enhancement. No hydronephrosis. Vasculature: Normal.. Lymph Nodes: No enlarged lymph nodes. Bowel: Normal caliber and wall thickness of the stomach, small bowel, and colon. Normal appearance of the terminal ileum. Status post appendectomy. Mild sigmoid diverticulosis without diverticulitis. Moderate colonic stool burden. Peritoneum: No free air. Trace pelvic free fluid is physiologic. Abdominal wall: Normal. There are minimal subcutaneous fat stranding adjacent to anterior superior iliacs is variably present on multiple prior studies and is likely pressure related. Urinary Bladder: Collapsed and grossly normal. Reproductive organs: Normal CT appearance of the uterus with trace fluid within the endometrial canal likely compatible with stage in menstrual cycle. Normal CT appearance of the ovaries. Osseous structures: Normal. IMPRESSION: 1. No acute abdominal or pelvic process. 2. Normal CT appearance of the uterus and ovaries, with trace physiologic fluid. I have personally reviewed the image(s) and the resident? s interpretation and agree with the findings, Alfonzo Dumont MD at 07/14/2021 12:07 AM Thank you for letting us participate in the care of this patient. If you are a health care provider and have any questions regarding this report, please contact the number below. For patients who have questions please contact the health career placement services counselor that requested your imaging first. ?? Signed By: ALFONZO DUMONT . Impression and Plan Diagnosis Female pelvic pain ([id number]-FK R10.2, Discharge, Medical) Endometriosis ([id number] N80.9, Discharge, Medical) Plan Disposition: Medically cleared, Discharged: Time 07/14/2021 00:08:00, to home. Prescriptions: Launch prescriptions Pharmacy: ondansetron 4 mg oral tablet, disintegrating (Prescribe): 4 mg = 1 tab(s), Oral, q8hr, PRN: Nausea/Vomiting, 20 tab(s), 0 Refill(s). Patient was given the following educational materials: General Discharge (SMURRAY). Counseled: Patient. Orders: Launch Orders Patient Care: Discharge Patient (Order): 07/14/2021 0:12 EST. Diagnostic Tests Pending * Chlam/GC/TV 07/14/21 Functional Status 07/13/21 COVID-19 Screening None Medications Benadryl 25 mg oral capsule 25 mg = 1 cap(s), Oral, Daily, 0 Refill(s) Start Date: 09/27/20 Status: Ordered Colace Oral, BID, 0 Refill(s) Start Date: 09/27/20 Status: Ordered Diflucan 150 mg oral tablet 150 mg = 1 tab(s), Oral, Once, # 1 tab(s), 0 Refill(s), [facility] [address], 1 tab(s) Oral Once Start Date: 07/31/20 [...] 70 gm, 0 Refill(s), Pharmacy: [facility], 1 marta VAG Once a day (at bedtime),x5 day(s) Start Date: 08/06/20 Stop Date: 08/11/20 Status: Ordered MetroGel-Vaginal 0.75% vaginal gel with applicator 1 marta, VAG, Once, # 70 gm, 0 Refill(s), Pharmacy: [facility], 1 marta VAG Once Start Date: 07/31/20 Status: Ordered MiraLax 17 gm 1 packet(s), Oral, Daily, 0 Refill(s) Start Date: 09/27/20 Status: Ordered montelukast 4 mg oral granule mg EA, Oral, Daily, 0 Refill(s) Start Date: 09/27/20 Status: Ordered norethindrone 5 mg oral tablet 10 mg = 2 tab(s), Oral, Daily, # 60 tab(s), 3 Refill(s), [facility]: [facility] [facility], 2tab(s) Oral Daily,x30 day(s) Start Date: 05/20/20 Stop Date: 09/17/20 Status: Ordered omeprazole Oral, Daily, 0 Refill(s) Start Date: 09/27/20 Status: Ordered ondansetron 4 mg oral tablet, disintegrating 4 mg = 1 tab(s), Oral, q8hr, PRN PRN Nausea/Vomiting, # 20 tab(s), 0 Refill(s), Pharmacy: [facility], 1 tab(s) Oral q8hr,PRN:Nausea/Vomiting, 165, cm, 07/13/21 17:17:00 EST, Height/Length Dosing, 83, kg, 07/13/21 17:17:00 EST, Weight Dosing Start Date: 07/14/21 Status: Ordered ProAir HFA INH, q6hr, 0 Refill(s) Start Date: 09/27/20 Status: Ordered Protonix 40 mg oral delayed release tablet 40 mg = 1 tab(s), Oral, Daily, # 15 tab(s), 0 Refill(s), [facility], 1tab(s) Oral Daily Start [...] # 30 tab(s), 0 Refill(s), [facility]: [facility] [facility], 1 tab(s) Oral q8hr,PRN:Nausea/Vomiting Start [...] of endometrioma Results Laboratory List Name Date Wet Prep Standard 07/14/21 Urinalysis with Culture, if indicated [facility] 07/13/21 Test Serum Standard 07/13/21 Automated Differential Standard 07/13/21 Basic Metabolic Panel Standard (BMP Thad dard) 07/13/21 CBC w/Diff Standard 07/13/21 Urinalysis Microscopic Standard 07/13/21 Most recent to oldest [Reference Range]: 1 Urine Culture? No (07/13/21 11:16 PM) NRBC Auto Pct [0.00-0.20 %] 0.00 % (07/13/21 9:42 PM) Creatinine [0.50-0.90 mg/dL] 0.63 mg/dL (07/13/21 9:42 PM) UA Bacteria [None Seen] Small *ABN* (07/13/21 11:16 PM) UA Bili NEGATIVE *NA* (07/13/21 11:16 PM) UA Blood [NEGATIVE] Large *ABN* (07/13/21 11:16 PM) UA Color YELLOW *NA* (07/13/21 11:16 PM) UA Glucose NEGATIVE *NA* (07/13/21 11:16 PM) UA Ketones TRACE *NA* (07/13/21 11:16 PM) UA Leuk Est [NEGATIVE] NEGATIVE (07/13/21 11:16 PM) UA Nitrite [NEGATIVE] NEGATIVE (07/13/21 11:16 PM) UA Protein [NEGATIVE] Trace (07/13/21 11:16 PM) UA RBC [0-2] 30-50 *ABN* (07/13/21 11:16 PM) UA Urobilinogen 0.2 EU/dL (07/13/21 11:16 PM) UA WBC 0-2 (07/13/21 11:16 PM) AGAP [10.0-18.0 mmol/L] 14.5 mmol/L (07/13/21 9:42 PM) Glucose Lvl [70-100 mg/dL] 81 mg/dL (07/13/21 9:42 PM) Hct [34.1-44.9 %] 36.2 % (07/13/21 9:42 PM) Hgb [11.5-15.7 gm/dL] 11.6 gm/dL (07/13/21 9:42 PM) Lymph Auto [15.0-45.0 %] 35.4 % (07/13/21 9:42 PM) MCH [25.6-32.2 pg] 25.9 pg (07/13/21 9:42 PM) MCHC [32.3-36.5 gm/dL] 32.0 gm/dL *LOW* (07/13/21 9:42 PM) MCV [79.4-94.8 fL] 80.8 fL (07/13/21 9:42 PM) King Auto [4.0-14.0 %] 6.8 % (07/13/21 9:42 PM) MPV [9.4-12.4 fL] 10.1 fL (07/13/21 9:42 PM) Neutro Auto [50.0-75.0 %] 55.1 % (07/13/21 9:42 PM) Osmolality [268.0-291.0 mOsm/kg] 271.9 m Osm/kg (07/13/21 9:42 PM) Platelet [150-400 x10(3)/uL] 211 x10(3)/ uL (07/13/21 9:42 PM) RBC [3.93-5.22 x10(6)/uL] 4.48 x10(6)/uL (07/13/21 9:42 PM) Sodium Lvl [136-145 mmol/L] 137 mmol/L (07/13/21 9:42 PM) UA pH 6.5 (07/13/21 11:16 PM) Basophil Auto [0.0-2.0 %] 0.9 % (07/13/21 9:42 PM) CO2 [22-29 mmol/L] 25 mmol/L (07/13/21 9:42 PM) Eos Auto [0.0-8.0 %] 1.6 % (07/13/21 9:42 PM) UA Spec Grav <=1.005 (07/13/21 11:16 PM) WBC [4.0-10.0 x10(3)/uL] 5.6 x10(3)/uL (07/13/21 9:42 PM) BUN [6-23 mg/dL] 10 mg/dL (07/13/21 9:42 PM) Calcium Lvl [8.6-10.2 mg/dL] 9.6 mg/dL (07/13/21 9:42 PM) Chloride [98-107 mmol/L] 101 mmol/L (07/13/21 9:42 PM) Potassium Lvl [3.5-5.1 mmol/L] 3.5 mmol/ L (07/13/21 9:42 PM) Micro? [Not Indicated] Indicated *ABN* (07/13/21 11:16 PM) Lymph Absolute [1.20-3.70 x10(3)/uL] 1.9 7 x10(3)/uL (07/13/21 9:42 PM) King Absolute [0.20-0.40 x10(3)/uL] 0.38 x10(3)/uL (07/13/21 9:42 PM) Eos Absolute [0.04-0.54 x10(3)/uL] 0.09 x10(3)/uL (07/13/21 9:42 PM) NRBC Absolute [0.00-0.01 x10(3)/uL] 0.00 x10(3)/uL (07/13/21 9:42 PM) UA Clarity CLEAR *NA* (07/13/21 11:16 PM) Neutro Absolute [1.56-6.13 x10(3)/uL] 3. 07 x10(3)/uL (07/13/21 9:42 PM) RDW-CV [11.7-14.4 %] 14.4 % (07/13/21 9:42 PM) GFR NonAfrican Hungarian [>=60 mL/min/1.7 3 m2] 118 mL/min/1.73 m2 (07/13/21 9:42 PM) UA Squam Epi Moderate *ABN* (07/13/21 11:16 PM) Wet Prep WBC [No WBC Seen] No WBC Seen (07/14/21 12:16 AM) Wet Prep Clue [No Clue Cells] No Clue Ce lls (07/14/21 12:16 AM) Wet Prep Trichomonas [None Seen] None Se en (07/14/21 12:16 AM) Wet Prep Yeast [No Yeast] No Yeast (07/14/21 12:16 AM) Immature Gran % [0.00-2.30 %] 0.20 % (07/13/21 9:42 PM) Immature Gran Absolute 0.01 x10(3)/uL *NA* (07/13/21 9:42 PM) HCG Qualitative Serum [Negative] Negativ e (07/13/21 9:52 PM) Basophil Absolute [0.00-0.10 x10(3)/uL] 0.05 x10(3)/uL (07/13/21 9:42 PM) Radiology Reports * Exam Date Time Procedure Performing Provider Status 07/13/21 10:[address] Abdomen/Pelvis w/ Contrast Hetal Pillai; Mark (Verified) Notes: (CT Abdomen/Pelvis w/ Contrast) Reason For Exam: Pelvic pain CT Abdomen/Pelvis w/ Contrast EXAMINATION: CT Abdomen/Pelvis w/ Contrast CLINICAL HISTORY: Pelvic pain TECHNIQUE: Helical CT of the abdomen and pelvis was performed following the intravenous administration of 99 ml of Omnipaque 300. COMPARISON: 06/20/2021 FINDINGS: Lower chest: Normal. Liver: Normal. Bile ducts: Not dilated. Gallbladder: No calcified gallstones. Pancreas: Normal. Spleen: Normal. Adrenals: Normal. Kidneys: Symmetric enhancement. No hydronephrosis. Vasculature: Normal.. Lymph Nodes: No enlarged lymph nodes. Bowel: Normal caliber and wall thickness of the stomach, small bowel, and colon. Normal appearance of the terminal ileum. Status post appendectomy. Mild sigmoid diverticulosis without diverticulitis. Moderate colonic stool burden. Peritoneum: No free air. Trace pelvic free fluid is physiologic. Abdominal wall: Normal. There are minimal subcutaneous fat stranding adjacent to anterior superior iliacs is variably present on multiple prior studies and is likely pressure related. Urinary Bladder: Collapsed and grossly normal. Reproductive organs: Normal CT appearance of the uterus with trace fluid within the endometrial canal likely compatible with stage in menstrual cycle. Normal CT appearance of the ovaries. Osseous structures: Normal. IMPRESSION: 1. No acute abdominal or pelvic process. 2. Normal CT appearance of the uterus and ovaries, with trace physiologic fluid. I have personally reviewed the image(s) and the resident's interpretation and agree with the findings, Alfonzo Dumont MD at 07/14/2021 12:07 AM Thank you for letting us participate in the care of this patient. If you are a health care provider and have any questions regarding this report, please contact the number below. For patients who have questions please contact the health career placement services counselor that requested your imaging first. Final Dictated: 07/14/2021 0:07 am ALFONZO DUMONT Signed (Electronic Signature): 07/14/2021 0:07 am Signed by: ALFONZO DUMONT Vital Signs Most recent to oldest [Reference Range]: 1 2 3 Temperature Temporal [36.3-37.8 DegC] 36.5 DegC (07/13/21 5:09 PM) Peripheral Pulse Rate [60-100 bpm] 66 bpm (07/14/21 12:00 AM) 71 bpm (07/13/21 11:45 PM) 69 bpm (07/13/21 11:30 PM) Respiratory Rate [14-20 br/min] 18 br/min (07/13/21 10:30 PM) 20 br/min (07/13/21 10:16 PM) 18 br/min (07/13/21 5:09 PM) Blood Pressure [90-140/60-90 mmHg] 116/55mmHg (07/14/21 12:00 AM) 121/60mmHg (07/13/21 10:30 PM) 113/65mmHg (07/13/21 10:16 PM) Mean Arterial Pressure, Cuff [65-100 mmHg] 75 mmHg (07/14/21 12:00 AM) 80 mmHg (07/13/21 10:30 PM) 81 mmHg (07/13/21 10:16 PM) Mean Arterial Pressure Cuff-Monitor 75 mmHg (07/14/21 12:00 AM) 76 mmHg (07/13/21 10:30 PM) 80 mmHg (07/13/21 10:16 PM) SpO2 [92-100 %] 96 % (07/14/21 12:00 AM) 98 % (07/13/21 11:45 PM) 97 % (07/13/21 11:30 PM) Height/Length Estimated 165.000 cm (07/13/21 5:09 PM) Height/Length Dosing 165.000 cm (07/13/21 5:17 PM) Weight Estimated 83.000 kg (07/13/21 5:09 PM) Weight Dosing 83.000 kg (07/13/21 5:17 PM) Social History Social History Type Response Smoking Status Never (less than 100 in lifetime) entered on: 07/13/21 Sex Hospital Discharge Instructions Patient Education 07/14/2021 00:21:29 General Discharge (SMURRAY) Please read all of the information that accompanies these instructions. You came to the emergency department with abdominal/pelvic pain. Your test results today including labs and CT scan were reassuring. It is highly concerning unlikely that your pain is related to yourongoing endometriosis. Please schedule a follow up appointment with your specialists at [facility] as soon as possible. This is important. You have been given or prescribed medications during this visit that may make you tired or drowsy. Do not drive, do not operate machinery, do not care for others, do no consume alcohol until they arecompletely clear from your system and you feel normal or as directed by a physician. Please seek medical care or return to the emergency department if you develop vomiting that does not improve with your medications, fevers, bloody stools, severe unilateral pain, or a new or concerning symptom. We are open 24 hours a day, 7 days a week.
--- NOTE | 2022-11-20 18:03 | NUR.NOTE ---
Addendum entered by Gautam Stroud RN 11/20/22 18:12: IV placed and removed from left wrist prior to pt's AMA. Labs pulled then discarded as provider team did not require further care. Original Note: Nursing Note: Pt left ama after speaking with provider team. Pt did not want assessment or further care.
--- NOTE | 2022-11-20 20:23 | W.ED.GENAD ---
Discharge Plan Disposition Patient Disposition: Against Medical Advice Condition: Serious Discharge Details Clinical Impression: Vaginal bleeding Primary Care Provider: Unknown,Unknown ED Provider: Lanette Galicia Home Meds and New Rx's Prescriptions: Continued sertraline 100 mg tablet 100 mg PO HS Patient Comments: TAKE ONE TABLET BY MOUTH EVERY DAY trazodone 100 mg tablet 100 mg PO HS Patient Comments: TAKE ONE TABLET BY MOUTH EVERY NIGHT hydroxyzine HCl 25 mg tablet 50 mg PO PRN PRN Patient Comments: TAKE 1 TABLET BY MOUTH AT NIGHT AND EVERY 6 HOURS NEEDED FOR ANXIETY ATTACKS gabapentin 100 mg capsule 300 mg PO TID Patient Comments: TAKE 1 CAPSULE DAILY FOR 3 DAYS 2 CAPSULES DAILY FOR 3 DAYS THEN MAY INCREASE TO 3 CAPSULES DAILY MAXIMUM DAILY DOSE 3 CAPULES norethindrone acetate 5 mg tablet 20 mg PO DAILY Patient Comments: take 1 tablet by mouth once daily hydromorphone 4 mg tablet 4 mg PO Q4-5H PRN Patient Comments: TAKE 1 TABLET BY MOUTH EVERY 4 HOURS FOR 5 DAYS NEEDED FOR PAIN ondansetron 4 mg tablet,disintegrating 4 mg PO DAILY Patient Comments: dissolve 1 tablet by mouth every 6 hours if needed for nausea and vomiting PT states having to take Benadryl with this to counteract hives. tizanidine 4 mg tablet 4 mg PO PRN PRN Patient Comments: take 1 tablet by mouth EVERY 6 TO 12 HOURS IF NEEDED FOR MUSCLE SPASMS Discharge Instructions Additional Instructions: You are leaving prior to being evaluated, we did attempt to place line and obtain labs and your prior records to better understand your past medical history, you have declined and have requested to leave, you are fully alert and oriented and of decisional capacity, I do hope you will be reassessed by her primary care doctor or at another facility of your discretion Discharge Data Discharge Date/Time-TO BE ENTERED AT DEPARTURE: 11/20/22 18:01 Medical Decision Making 22-year-old female has a history of vaginal bleeding, presenting with same complaint today We did receive notification that patient has been seen at greater than 100 hospitals within the past year for similar presentation, I did ask her regarding her last visit at [facility], she states this was for a seizure, it is documented that she was seen there for vaginal bleeding, I did inquire regarding this as I do not want to expose patient to unnecessary radiation or redundant exams, she refused to sign the paperwork to obtain her records from [facility] which she was seen at 2 days prior to this assessment Patient then said I hate all [place] hospitals they are stupid I then did inform patient that she is at a [place] [facility] and that she is not required to be assessed although I do recommend that she be assessed for her current complaint She is requesting to leave this facility AGAINST MEDICAL ADVICE, she is fully alert, oriented, of decisional capacity She is discharged prior to any assessment being completed aside from initial physical exam HPI General Date/Time Provider Initiated Documentation: 11/20/22 17:47. HPI Narrative: This 22-year-old female presents with report of vaginal bleeding, states she is going through many tampons and pads . She is unable to supply me an approximate number. Patient states she also has cramping in her suprapubic region. She denies any weakness or dizziness. 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 Denies any additional complaints at this time. Related Data Home Medications Medication Instructions Recorded Confirmed gabapentin 100 mg capsule 300 mg PO TID 01/25/21 11/20/22 hydroxyzine HCl 25 mg tablet 50 mg PO PRN PRN 01/25/21 11/20/22 sertraline 100 mg tablet 100 mg PO HS 01/25/21 11/20/22 trazodone 100 mg tablet 100 mg PO HS 01/25/21 11/20/22 hydromorphone 4 mg tablet 4 mg PO Q4-5H PRN 11/20/22 11/20/22 norethindrone acetate 5 mg tablet 20 mg PO DAILY 11/20/22 11/20/22 ondansetron 4 mg disintegrating 4 mg PO DAILY 11/20/22 11/20/22 tablet tizanidine 4 mg tablet 4 mg PO PRN PRN 11/20/22 11/20/22 Allergies Allergy/AdvReac Type Severity Reaction Status Date / Time droperidol Allergy Severe jaw locks, Unverified 10/13/21 15:25 hives, swells up ibuprofen Allergy Severe jaw locks, Unverified 10/13/21 15:25 hives, swells up haloperidol [From Haldol] Allergy Unverified 10/13/21 15:24 ketorolac Allergy Unverified 10/13/21 15:24 metoclopramide [From Reglan] Allergy Anaphylaxis Unverified 11/20/22 17:39 Penicillins Allergy Unverified 10/13/21 15:24 prochlorperazine Allergy Anaphylaxis Unverified 11/20/22 17:39 [From Compazine] promethazine [From Phenergan] Allergy Anaphylaxis Unverified 11/20/22 17:39 General 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 PFSH All Active Problems (Updated 11/20/22 @ 18:01 by KIRA Hagan) Ovarian cyst (Acute) Abdominal pain (Acute) Constipation (Acute) Vaginal bleeding (Acute) Social History Smoking/Tobacco Use Status: Never Smoking risk assessment performed?: Yes Alcohol Intake: current Alcohol Intake frequency: holidays/special occasions only Drug use: Current Sobriety Substance use type: marijuana Details: occassional edible after long day at work Do you feel safe at home: Yes Do you feel safe in your relationship?: Yes Course Vital Signs Vital signs: Vital Signs Temperature 37.2 C 11/20/22 17:32 Pulse 57 L 11/20/22 17:32 Respiratory Rate 18 11/20/22 17:32 Blood Pressure 108/72 11/20/22 17:32 Pulse Oximetry 99 11/20/22 17:32 Temperature 37.2 C 11/20/22 17:32 Temperature Source Skin 11/20/22 17:32 Pulse 57 L 11/20/22 17:32 Respiratory Rate 18 11/20/22 17:32 Blood Pressure 108/72 11/20/22 17:32 Blood Pressure Position Sitting 11/20/22 17:32 Pulse Oximetry 99 11/20/22 17:32 Oxygen Delivery Method Room Air 11/20/22 17:32 Oxygen Flow Rate 0 11/20/22 17:32 Pain Level 7 11/20/22 17:32
== END 2022-11-20 18:01 | disposition left against medical advice (07) ==
PROVIDERS: Emergency Provider Physician Assistant
DX: N93.9 Abnormal uterine and vaginal bleeding, unspecified (principal)
CPT/HCPCS: 99283